=== PATIENT | female | born 1995 | race Caucasian/White ===

== ENCOUNTER 2023-05-08 13:59 | Outpatient (OUT) | payer OTHER, SELFPAY ==
--- NOTE | 2023-05-08 14:17 | US_ITS ---
The [address] [address] Patient Name: ROSALIE FREEMAN MRN: [id number] date: 1995 Sex: F Assigned Patient Location: LAB Current Patient Location: LAB Accession/Order Number: [id number] Exam Date: 05/08/2023 14:18 Report Date: 05/08/2023 16:50 At the request of: DEISY CARDONA Procedure: US pelvis w/ transvaginal EXAM: Pelvic ultrasound HISTORY: . E COLI INFECTION A49.8; LEFT UPPER QUADRANT PAIN R10.12 . COMPARISON: None. TECHNIQUE: Transabdominal and transvaginal scanning was performed FINDINGS: Scanning of the pelvis demonstrates uterus to be anteverted and measures 9.1 x 4.4 x 5.4 cm. Endometrial complex measures 7 mm. Linear hyperechoic structures are noted within the endometrial cavity with shadowing consistent with an IUD which appears in good position. Right ovary measures 3.5 x 2.6 x 3.1 cm. Color-flow is noted. No masses are noted. Left ovary was not identified. By history left ovary is been removed. No fluid was noted in the cul-de-sac. IMPRESSION: 1. Normal-appearing uterus and endometrial complex with IUD in place. 2. Normal right ovary. 3. Left ovary was not identified. By history left ovary is been removed. Electronically authenticated by: NANDINI LOVING Date: 05/08/2023 16:50
== END 2023-05-08 14:00 ==
LOC: LAB 14:08
PROVIDERS: PCP Family Medicine; Visit Provider Family Medicine
DX: N39.0 Urinary tract infection, site not specified (principal); R42 Dizziness and giddiness; R53.1 Weakness; A49.8 Other bacterial infections of unspecified site; R10.12 Left upper quadrant pain
CPT/HCPCS: 76830; 76856

== ENCOUNTER 2023-05-09 07:41 | Outpatient (REF) | payer OTHER, SELFPAY ==
[2023-05-09 07:58] LABS: Bilirubin Urine NEGATIVE (NEGATIVE); Blood Urine NEGATIVE (NEGATIVE); Clarity Urine CLEAR (CLEAR); Color Urine LT. YELLOW (YELLOW); Glucose Urine UA NEGATIVE (NEGATIVE); Ketones Urine NEGATIVE (NEGATIVE); Leukocyte Esterase Urine NEGATIVE (NEGATIVE); Nitrite Urine NEGATIVE (NEGATIVE); Protein Urine NEGATIVE (NEG/TRACE); Urobilinogen Urine 0.2 EU/dL (0.2-1.0); pH Urine 5.5 (5.0-9.0)
[2023-05-09 08:05] LABS: Bacteria Urine TRACE #/HPF (NONE SEEN); Cast Seen? NONE SEEN #/LPF (NONE SEEN); Crystals Seen? None Seen #/HPF (None Seen); Mucus Urine NONE SEEN (NONE SEEN); RBC Urine 0-2 #/HPF (0-2); Squamous Epithelial Cell Urine RARE #/LPF (NONE/RARE); WBC Urine NONE SEEN #/HPF (NONE SEEN)
== END 2023-05-09 07:42 ==
LOC: LAB 07:41
PROVIDERS: PCP Family Medicine; Visit Provider Family Medicine
DX: N39.0 Urinary tract infection, site not specified (principal)
CPT/HCPCS: 81001; 87086

== ENCOUNTER 2023-06-01 21:39 | Outpatient (OUT) | payer OTHER, SELFPAY ==
[2023-06-05 14:10] LABS: Age Gdln ACOG Testing Note (.); HPV Aptima Negative (Negative); IGP, Aptima HPV, rfx 16/18,45 Note (.)
== END 2023-06-01 21:40 | disposition home or self-care (01) ==
LOC: LAB 21:41
PROVIDERS: PCP Family Medicine; Visit Provider Physician Assistant
DX: Z12.4 Encounter for screening for malignant neoplasm of cervix (principal); Z11.51 Encounter for screening for human papillomavirus (HPV)
CPT/HCPCS: 87624; G0145

== ENCOUNTER 2023-10-28 15:38 | Outpatient (OUT) | payer OTHER, SELFPAY ==
[2023-10-28 16:10] LABS: Basophils Percent Auto 0.3 % (0.2-2.0); Eosinophils Absolute Auto 0.2 10^3/uL (0.0-0.7); Eosinophils Percent Auto 1.9 % (0.9-7.0); Hematocrit 41.2 % (36.0-48.0); Hemoglobin 13.7 g/dL (12.0-16.0); Immature Granulocytes Abs Auto 0.03 10^3/uL (0.00-0.03); Immature Granulocytes Pct Auto 0.3 % (0.0-0.5); Lymphocytes Percent Auto 22.8 % (20.5-60.0); Mean Corpuscular HGB Conc 33.3 g/dL (29.9-35.2); Mean Corpuscular Hemoglobin 30.3 pg (26.7-34.0); Mean Corpuscular Volume 91.2 fL (81.0-99.0); Mean Platelet Volume 9.1 fL (9.5-13.5); Monocytes Absolute Auto 0.7 10^3/uL (0.3-0.8); Monocytes Percent Auto 8.2 % (1.7-12.0); Neutrophils Absolute Auto 5.8 10^3/uL (1.4-6.5); Neutrophils Percent Auto 66.5 % (43.0-75.0); Platelet Count 302 10^3/uL (150-450); Red Blood Count 4.52 10^6/uL (4.20-5.40); Red Cell Distribution Width 12.2 % (11.0-15.0); White Blood Count 8.8 10^3/uL (4.0-11.0)
[2023-10-28 17:04] LABS: Free T4 0.82 ng/dL (0.76-1.46)
[2023-10-28 17:09] LABS: Thyroid Stimulating Hormone 2.166 uIU/mL (0.358-3.740); Uric Acid 4.3 mg/dL (2.6-6.0)
[2023-10-28 17:32] LABS: C Reactive Protein <0.50 mg/dL (<=0.50)
[2023-10-30 04:07] LABS: Antistreptolysin O Ab 612.5 IU/mL (0.0-200.0)
[2023-10-30 12:09] LABS: Anti-DNA (DS) Ab Qn <1 IU/mL (0-9); Antichromatin Antibodies <0.2 AI (0.0-0.9); RNP Antibodies <0.2 AI (0.0-0.9); Rheumatoid Factor (RF) 10.8 IU/mL (<14.0); Sjogren's Anti-SS-A <0.2 AI (0.0-0.9); Sjogren's Anti-SS-B <0.2 AI (0.0-0.9)
[2023-11-02 12:10] LABS: Antinuclear Antibodies, IFA Negative (.)
== END 2023-10-28 15:39 | disposition home or self-care (01) ==
PROVIDERS: PCP Family Medicine; Visit Provider Family Medicine
DX: M25.50 Pain in unspecified joint (principal)
CPT/HCPCS: 36415; 84439; 84443; 84550; 85025; 86038; 86060; 86140; 86225; 86235; 86431

== ENCOUNTER 2023-11-09 10:11 | Outpatient (OUT) | payer OTHER, SELFPAY ==
[2023-11-09 11:39] LABS: Total Protein Urine Random 19.3 mg/dL (<=11.9)
== END 2023-11-09 10:12 | disposition home or self-care (01) ==
LOC: LAB 10:11
PROVIDERS: PCP Family Medicine; Visit Provider Family Medicine
DX: R89.9 Unspecified abnormal finding in specimens from other organs, systems and tissues (principal)
CPT/HCPCS: 84156

== ENCOUNTER 2023-11-10 15:51 | Outpatient (RCR) | payer OTHER, SELFPAY | END 2023-11-22 08:00 | disposition home or self-care (01) | LOC: PT 15:51 | PROVIDERS: PCP Family Medicine; Visit Provider Family Medicine | DX: M25.511 Pain in right shoulder (principal); E16.1 Other hypoglycemia | CPT/HCPCS: 97014; 97110; 97162 ==

== ENCOUNTER 2023-11-12 07:47 | Outpatient (REF) | payer OTHER, SELFPAY ==
[2023-11-12 08:43] LABS: Total Protein Urine Random 13.2 mg/dL (<=11.9)
[2023-11-12 08:45] LABS: Total Protein 24 Hour Urine 145.2 mg/24hr (<=149.1); Total Volume 24 Hour Urine 1100 mL/24hr
--- OUTSIDE RECORDS SUMMARY | 2023-11-12 10:30 | XMS_ITS | CCD ---
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, DR SEWELL Admkaty Unavailable ZIEBER, DR ADRIANA Mckenzie Consulting Unavailable HOY ., DR SEWELL Consulting Unavailable HOY ., DR SEWELL Primary Care Unavailable HOY ., DR SEWELL Attending Unavailable HOY ., DR SEWELL Admitting Unavailable ZIEBER, DR ADRIANA Mckenzie Consulting Unavailable DANIEL CELAYA Consulting Unavailable HOY ., DR SEWELL Primary Care Unavailable DANIEL CELAYA Attending Unavailable DANIEL CELAYA Admitting Unavailable HOY ., DR SEWELL Consulting Unavailable HOY ., DR SEWELL Primary Care Unavailable HOY ., DR SEWELL Attending Unavailable HOY ., DR SEWELL Admkaty Unavailable HOY ., DR SEWELL Consulting Unavailable HOY ., DR SEWELL Primary Care Unavailable HOY ., DR SEWELL Attending Unavailable HOY ., DR SEWELL Admitting Unavailable HOY ., DR SEWELL Consulting Unavailable HOY ., DR SEWELL Primary Care Unavailable HOY ., DR SEWELL Attending Unavailable HOY ., DR SEWELL Admkaty Unavailable LEYLA, DR NANDINI Stafford Consulting Unavailable HOY ., DR SEWELL Consulting Unavailable HOY ., DR SEWELL Primary Care Unavailable HOY ., DR SEWELL Attending Unavailable HOY ., DR SEWELL Admitting Unavailable HOY ., DR SEWELL Consulting Unavailable HOY ., DR SEWELL Primary Care Unavailable HOY ., DR SEWELL Attending Unavailable HOY ., DR SEWELL Admitting Unavailable LEYLA, DR NANDINI Stafford Consulting Unavailable HOY ., DR SEWELL Primary Care Unavailable HOY ., DR SEWELL Attending Unavailable HOY ., DR SEWELL Admitting Unavailable JETHRO GRIFFITH Consulting Unavailable NACHO, JETHRO Attending Unavailable JETHRO GRIFFITH Admitting Unavailable POLI ., DR SEWELL Primary Care Unavailable ELLIS TOLEDO Consulting Unavailable ELLIS TOLEDO Attending Unavailable ELLIS TOLEDO Admitting Unavailable POLI ., DR SEWELL Primary Care Unavailable Allergies Allergy Classification Reported Allergen(s) Allergy Type Date of Onset Reaction(s) Facility (1 source) [facility]; Translations: [[facility]] Propensity to adverse reactions (disorder) 0 [facility] Repository Medications Current Medications Medication Drug Class(es) Dates Sig (Normalized) Sig (Original) dicyclomine hydrochloride 20 mg oral tablet (1 source) Anticholinergic Start: 11-19-2021 take 1 tablet by mouth every twelve hours sertraline 100 mg oral tablet (1 source) Serotonin Reuptake Inhibitor take 1 tablet by mouth every twenty-four hours Problems Active Problems Problem Classification Problem Date Documented Da te Episodic/Chronic Conditions associated with dizziness or vertigo (4 sources) Dizziness and giddiness; Translations: [DIZZINESS AND GIDDINESS] Onset: 3 Episodic Esophageal disorders (2 sources) Gastroesophageal reflux disease; Translations: [Gastro-esophageal reflux disease without esophagitis] Onset: 1 Resolved: 1 Chronic Headache; including migraine (2 sources) Headache; Translations: [Chronic nonintractable headache, unspecified headache type] Episodic Nausea and vomiting (1 source) Nausea; Translations: [NAUSEA] Onset: 3 Episodic Other aftercare (1 source) 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; Translations: [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] Onset: 3 Episodic Other endocrine disorders (4 sources) Other hypoglycemia; Translations: [OTHER HYPOGLYCEMIA] Onset: 3 Chronic Other gastrointestinal disorders (1 source) Irritable bowel syndrome; Translations: [Irritable bowel syndrome without diarrhea] Chronic Other gastrointestinal disorders (1 source) Irritable bowel syndrome without diarrhea Onset: 1 Resolved: 1 Chronic Unclassified (3 sources) CONTACT W/AND (SUSP) EXPOS COVID-19; Translations: [CONTACT W/AND (SUSP) EXPOS COVID-19] Onset: 2 Unclassified (1 source) COUGH, UNSPECIFIED; Translations: [COUGH, UNSPECIFIED] Onset: 2 Urinary tract infections (5 sources) Urinary tract infection, site not specified; Translations: [UTI SITE NOT SPECIFIED] Onset: 3 Episodic Past or Other Problems Problem Classification Problem Date Documented Da te Episodic/Chronic Other connective tissue disease (4 sources) Impingement syndrome of right shoulder; Translations: [IMPINGEMENT SYNDROME RIGHT SHOULDER] Onset: 07-10-2022 Episodic Other non-traumatic joint disorders (5 sources) Pain in right shoulder; Translations: [PAIN IN RIGHT SHOULDER] Onset: 05-13-2022 Episodic Other upper respiratory infections (1 source) Acute pharyngitis, unspecified; Translations: [ACUTE PHARYNGITIS UNSPECIFIED] Onset: 10-23-2022 Episodic Poisoning by nonmedicinal substances (4 sources) Toxic effect of venom of bees, accidental (unintentional), initial encounter; Translations: [TOXIC EFF VENOM BEES ACC INIT ENC] Onset: 08-05-2022 Episodic Skin and subcutaneous tissue infections (1 source) Cellulitis of right lower limb; Translations: [CELLULITIS OF RIGHT LOWER LIMB] Onset: 08-06-2022 Episodic Sprains and strains (4 sources) Strain of other muscles, fascia and tendons at shoulder and upper arm level, right arm, initial encounter; Translations: [STRN OTH MSC F TEND SH UA RA INIT] Onset: 07-18-2022 Episodic Unclassified (1 source) CONTACT W/AND (SUSP) EXPOS COVID-19; Translations: [CONTACT W/AND (SUSP) EXPOS COVID-19] Onset: 10-20-2022 Results Test Name Value Interpretation Reference Range Facility BNPon 04-17-2023 Natriuretic peptide B (Bld) [Mass/Vol] 246.0 pg/mL Normal <=450.0 [facility] Comment on above: Performed By: #### I NSULIN #### [facility] [address] [place] [address] Dr. Saray Souza CARDIAC NELI ADMITon 023 CK [Catalytic activity/Vol] 47 U/L Normal 26-192 [facility] Comment on above: Performed By: #### I CURLYULIN #### [facility] [address] [place] [address] Dr. Saray Souza CK.MB [Mass/Vol] 1.02 ng/mL Normal <=3.60 [facility] Comment on above: Performed By: #### I CURLYULIN #### [facility] [address] [place] [address] Dr. Saray Souza HSTROP 4.5 pg/mL Normal 4.0-51.3 [facility] Comment on above: Result Comment: CUT- OFF POINTS HAVE BEEN ESTABLISHED BASED ON THE FOURTH UNIVERSAL DEFINITIONS OF MYOCARDIAL INFARCTION. THE UPPER REFERENCE LIMIT (URL) OF TROPONIN, DEFINED THE 99TH PERCENTILE OF cTnI DISTRIBUTION IN A REFERENCE POPULATION, HAS BEEN CONFIRMED THE DECISION THRESHOLD FOR MO DIAGNOSIS. Performed By: #### I NSULIN #### [facility] [address] [place] [address] Dr. Saray Souza FRANKLIN 36 ng/mL Normal 9-82 [facility] Comment on above: Performed By: #### I CURLYULIN #### [facility] [address] [address] [address] Saray Souza CBC W MANUAL DIFFon 04-17-20 23 ATYPICAL LYMPH # Normal [facility] Comment on above: Performed By: #### C EDGARDO #### [facility] [address] [place] [address] Dr. Saray Souza ATYPICAL LYMPH % Normal [facility] Comment on above: Performed By: #### C BCMAN #### [facility] [address] [place] [address] Dr. Saray Souza BAND # 0.3 103/ul Normal 0.0-0.3 [facility] Comment on above: Performed By: #### C EDGARDO #### [facility] [address] [place] [address] Dr. Saray Souza BAND % 1 % Normal 0-5 [facility] Comment on above: Performed By: #### C BCPRESLEY #### [facility] [address] [place] [address] Dr. Saray Souza BASOM # 0.00 103/ul Normal 0.00-0.10 [facility] Comment on above: Performed By: #### C BCPRESLEY #### [facility] [address] [place] [address] Dr. Saray Souza BASOM % 0.0 % Critically low 0.2-2.0 [facility] Comment on above: Performed By: #### C BCMAN #### [facility] [address] [place] [address] Dr. Saray Souza BLAST # Normal [facility] Comment on above: Performed By: #### C EDGARDO #### [facility] [address] [place] [address] Dr. aSray Souza BLAST % Normal [facility] Comment on above: Performed By: #### C EDGARDO #### [facility] [address] [place] [address] Dr. Saray Souza CORRECTED WBC Normal 4.0-11.0 [facility] Comment on above: Performed By: #### C EDGARDO #### [facility] [address] [place] [address] Dr. Saray Souza EOS # 0.00 103/ul Normal 0.00-0.70 [facility] Comment on above: Performed By: #### C EDGARDO #### [facility] [address] [place] [address] Dr. Saray Souza EOS% 0.0 % Critically low 0.9-7.0 [facility] Comment on above: Performed By: #### C BCPRESLEY #### [facility] [address] [place] [address] Dr. Saray Souza HCT 43.6 % Normal 36.0-48.0 [facility] Comment on above: Performed By: #### C EDGARDO #### [facility] [address] [place] [address] Dr. Saray Souza HGB 14.7 g/dl Normal 12.0-16.0 [facility] Comment on above: Performed By: #### C EDGARDO #### [facility] [address] [address] [address] Saray Souza LYMPHM # 1.55 103/ul Normal 1.20-3.80 [facility] Comment on above: Performed By: #### C EDGARDO #### [facility] [address] [address] [address] Saray Souza LYMPHM% 6.0 % Critically low 20.5-60.[address] [facility] Comment on above: Performed By: #### C EDGARDO #### [facility] [address] [address] [address] Saray Souza MCH 30.3 pg Normal 26.7-34.0 [facility] Comment on above: Performed By: #### C EDGARDO #### [facility] [address] [place] [address] Dr. Saray Souza MCHC 33.7 g/dl Normal 29.9-35.2 [facility] Comment on above: Performed By: #### Sweetie REYNOSO #### [facility] [address] [place] [address] Dr. Saray Souza MCV 89.9 fL Normal 81.0-99.0 [facility] Comment on above: Performed By: #### C EDGARDO #### [facility] [address] [place] [address] Dr. Saray Souza METAMYELOCYTE # Normal [facility] Comment on above: Performed By: #### Sweetie REYNOSO #### [facility] [address] [place] [address] Dr. Saray Souza METAMYELOCYTE % Normal [facility] Comment on above: Performed By: #### C EDGARDO #### [facility] [address] [place] [address] Dr. Saray Souza MONOM# 2.06 103/ul Critically high 0.30-0.80 [facility] Comment on above: Performed By: #### Sweetie REYNOSO #### [facility] [address] [place] [address] Dr. Saray Souza MONOM% 8.0 % Normal 1.7-12.0 [facility] Comment on above: Performed By: #### C EDGARDO #### [facility] [address] [place] [address] Dr. Saray Souza MPV 8.8 fL Critically low 9.5-13.5 [facility] Comment on above: Performed By: #### C BCPRESLEY #### [facility] [address] [place] [address] Dr. Saray Souza MYELOCYTE # Normal [facility] Comment on above: Performed By: #### C EDGARDO #### [facility] [address] [place] [address] Dr. Saray Souza MYELOCYTE % Normal [facility] Comment on above: Performed By: #### C EDGARDO #### [facility] [address] [place] [address] Dr. Saray Souza NRBC Normal [facility] Comment on above: Performed By: #### C EDGARDO #### [facility] [address] [place] [address] Dr. Saray Souza PLT 397 103/ul Normal 150-450 [facility] Comment on above: Performed By: #### C EDGARDO #### [facility] [address] [place] [address] Dr. Saray Souza RBC 4.85 106/ul Normal 4.20-5.40 [facility] Comment on above: Performed By: #### C EDGARDO #### [facility] [address] [place] [address] Dr. Saray Souza RDW 12.0 % Normal 11.0-15.0 [facility] Comment on above: Performed By: #### C BCPRESLEY #### [facility] [address] [place] [address] Dr. Saray Souza SEG # 21.93 103/ul Critically high 1.40-6.50 [facility] Comment on above: Performed By: #### C EDGARDO #### [facility] [address] [place] [address] Dr. Saray Souza SEG % 85.0 % Critically high 43.0-75.0 [facility] Comment on above: Performed By: #### C BCMAN #### [facility] [address] [place] [address] Dr. Saray Souza WBC 25.8 103/ul Critically high 4.0-11.0 [facility] Comment on above: Performed By: #### C BCMAN #### [facility] [address] [place] [address] Dr. Saray Souza CULTURE URINEon 04-17-2023 CULTURE URINE Culture Observations : LORENZO TO FOLLOW. Isolate 1 Enterococcus faecalis 20,000 cfu/mL of Normal [facility] Comment on above: Performed By: #### C BC #### [facility] [address] [place] [address] Dr. Saray Souza ER URINE PROFILEon 3 Bilirubin Ql (U) Negative Normal NEGATIVE [facility] Comment on above: Performed By: #### C BC #### [facility] [address] [place] [address] Dr. Saray Souza Clarity (U) CLEAR Normal CLEAR [facility] Comment on above: Performed By: #### C BC #### [facility] [address] [place] [address] Dr. Saray Souza Color (U) LT. YELLOW Normal YELLOW [facility] Comment on above: Performed By: #### C BC #### [facility] [address] [place] [address] Dr. [facility] micrscopic examination will be performed if indicated. Normal [facility] Comment on above: Performed By: #### C BC #### [facility] [address] [place] [address] Dr. Saray Souza Glucose Ql (U) Negative Normal NEGATIVE [facility] Comment on above: Performed By: #### C BC #### [facility] [address] [place] [address] Dr. Saray Souza Hemoglobin Ql (U) Negative Normal NEGATIVE [facility] Comment on above: Performed By: #### C BC #### [facility] [address] [place] [address] Dr. Saray Souza Ketones Ql (U) Negative Normal NEGATIVE [facility] Comment on above: Performed By: #### C BC #### [facility] [address] [place] [address] Dr. Saray Souza LEUKOCYTES SMALL Abnormal NEGATIVE [facility] Comment on above: Performed By: #### C BC #### [facility] [address] [place] [address] Dr. Saray Souza Nitrite Ql (U) Negative Normal NEGATIVE [facility] Comment on above: Performed By: #### C BC #### [facility] [address] [place] [address] Dr. Saray Souza pH (U) 6.5 [pH] Normal 5-9 [facility] Comment on above: Performed By: #### C BC #### [facility] [address] [place] [address] Dr. Saray Souza SPEC GRAVITY 1.025 Normal 1.005-<=1.025 [facility] Comment on above: Performed By: #### C BC #### [facility] [address] [place] [address] Dr. Saray Souza UA PROTEIN Negative Normal NEGATIVE/ TRACE [facility] Comment on above: Performed By: #### C BC #### [facility] [address] [place] [address] Dr. Saray Souza UR MICRO IND INDICATED Normal [facility] Comment on above: Performed By: #### C BC #### [facility] [address] [place] [address] Dr. Saray Souza Urobilinogen Qn (U) 0.2 {Janine'U}/dL Normal 0.2 - 1. 0 [facility] Comment on above: Performed By: #### C BC #### [facility] [address] [place] [address] Dr. Saray Souza URon 04-17-2023 , QUAL Negative Normal NEGATIVE [facility] Comment on above: Performed By: #### C BC #### [facility] [address] [place] [address] Dr. Saray Souza PROF 14(COMP METB)on 023 Albumin [Mass/Vol] 3.0 g/dL Critically low 3.4-5.0 [facility] Comment on above: Performed By: #### I NSULIN #### [facility] [address] [place] [address] Dr. Saray Souza Albumin/Globulin [Mass ratio] 0.9 {ratio} Normal [facility] Comment on above: Performed By: #### I NSULIN #### [facility] [address] [place] [address] Dr. Saray Souza ALP [Catalytic activity/Vol] 54 U/L Normal 46-116 [facility] Comment on above: Performed By: #### I NSULIN #### [facility] [address] [place] [address] Dr. Saray Souza ALT [Catalytic activity/Vol] 27 U/L Normal 14-59 [facility] Comment on above: Performed By: #### I NSULIN #### [facility] [address] [place] [address] Dr. Saray Souza Anion gap [Moles/Vol] 12.9 mmol/L Normal [facility] Comment on above: Performed By: #### I NSULIN #### [facility] [address] [place] [address] Dr. Saray Souza AST [Catalytic activity/Vol] 12 U/L Critically low 15-37 [facility] Comment on above: Performed By: #### I NSULIN #### [facility] [address] [place] [address] Dr. Saray Souza Bilirubin [Mass/Vol] 0.3 mg/dL Normal 0.2-1.0 [facility] Comment on above: Performed By: #### I NSULIN #### [facility] [address] [place] [address] Dr. Saray Souza Calcium [Mass/Vol] 8.1 mg/dL Critically low 8.5-10.1 [facility] Comment on above: Performed By: #### I NSULIN #### [facility] [address] [place] [address] Dr. Saray Souza Chloride [Moles/Vol] 102 mmol/L Normal 98-107 [facility] Comment on above: Performed By: #### I NSULIN #### [facility] [address] [address] [address] Saray Souza CO2 [Moles/Vol] 26.2 mmol/L Normal 21.0-32.0 [facility] Comment on above: Performed By: #### I NSULIN #### [facility] [address] [place] [address] Dr. Saray Souza Creatinine [Mass/Vol] 0.87 mg/dL Normal 0.55-1.02 [facility] Comment on above: Performed By: #### I NSULIN #### [facility] [address] [place] [address] Dr. Saray Souza EGFR-AF CROATIAN >60 Normal >=60 [facility] Comment on above: Performed By: #### I NSULIN #### [facility] [address] [place] [address] Dr. Saray Souza EGFR-NON AF CROATIAN >60 Normal >=60 [facility] Comment on above: Performed By: #### I NSULIN #### [facility] [address] [place] [address] Dr. Saray Souza Globulin (S) [Mass/Vol] 3.2 g/dL Normal [facility] Comment on above: Performed By: #### I NSULIN #### [facility] [address] [place] [address] Dr. Saray Souza Glucose [Mass/Vol] 206 mg/dL Critically high 74-106 [facility] Comment on above: Performed By: #### I NSULIN #### [facility] [address] [place] [address] Dr. Saray Souza Potassium [Moles/Vol] 4.1 mmol/L Normal 3.5-5.1 [facility] Comment on above: Performed By: #### I NSULIN #### [facility] [address] [place] [address] Dr. Saray Souza Protein [Mass/Vol] 6.2 g/dL Critically low 6.4-8.2 [facility] Comment on above: Performed By: #### I NSULIN #### [facility] [address] [place] [address] Dr. Saray Souza Sodium [Moles/Vol] 137 mmol/L Normal 136-[address] [facility] Comment on above: Performed By: #### I NSULIN #### [facility] [address] [place] [address] Dr. Saray Souza Urea nitrogen [Mass/Vol] 19.0 mg/dL Critically high 7.0-18.0 [facility] Comment on above: Performed By: #### I NSULIN #### [facility] [address] [place] [address] Dr. Saray Souza Urea nitrogen/Creatinine [Mass ratio] 21.8 mg/mg Normal [facility] Comment on above: Performed By: #### I NSULIN #### [facility] [address] [place] [address] Dr. Saray Souza TSHon 04-17-2023 TSH 0.553 uIU/mL Normal 0.358-3.740 [facility] Comment on above: Performed By: #### I NSULIN #### [facility] [address] [place] [address] Dr. Saray Souza URINE MICROSCOPIC ONLYon BACTERIA TRACE Abnormal NONE SEEN [facility] Comment on above: Performed By: #### C BC #### [facility] [address] [place] [address] Dr. Saray Souza Bacteria identified Cx Nom (U) INDICATED Normal [facility] Comment on above: Performed By: #### C BC #### [facility] [address] [place] [address] Dr. Saray Souza CAST NONE SEEN Normal NONE SEEN [facility] Comment on above: Performed By: #### C BC #### [facility] [address] [place] [address] Dr. Saray Souza Crystals LM Nom (Urine sed) NONE SEEN Normal NONE SEEN [facility] Comment on above: Performed By: #### C BC #### [facility] [address] [address] [address] Saray Souza Epithelial cells LM Ql (Urine sed) RARE Normal NONE SEEN /RARE [facility] Comment on above: Performed By: #### C BC #### [facility] [address] [place] [address] Dr. Saray Souza MUCOUS NONE SEEN Normal NONE SEEN [facility] Comment on above: Performed By: #### C BC #### [facility] [address] [address] [address] Saray Souza RBC 0-2 Normal 0-2 [facility] Comment on above: Performed By: #### C BC #### [facility] [address] [place] [address] Dr. Saray Souza WBC 5-10 Abnormal NONE SEEN [facility] Comment on above: Performed By: #### C BC #### [facility] [address] [place] [address] Dr. Saray Souza XR CHEST 2 Von 04-17-2023 SARS-CoV-2 (COVID-19) RNA DAYDAY+probe Ql (Unsp spec) XR CHEST 2 V, 04/17/2023 10:10 AM EDT INDICATION: SHORTNESS OF BREATH Covid 19 positive test 04/10/2023 COMPARISON: None. FINDINGS: Decreased inspiratory effort increases prominence of mediastinum and pulmonary interstitium. Cardiomediastinal silhouette within normal limits. No focal consolidation or pleural effusion. Calcified granuloma right middle lobe. No pneumothorax. No acute fracture or dislocation. IMPRESSION: No acute cardiopulmonary process. Electronically authenticated by: CAROL RAMIREZ Date: 2023-04-17 10:45 Normal [facility] INSULINon 04-07-2023 Insulin 11.3 uIU/mL Normal 2.6-24.9 [facility] Comment on above: Performed By: #### I NSULIN #### [facility] [address] [place] [address] Dr. Saray Souza US KIDNEYS BLADDERon 023 US KIDNEYS BLADDER EXAMINATION: US KIDNEYS BLADDER HISTORY: Urinary tract infectious disease COMPARISON: No relevant comparison available. TECHNIQUE: Ultrasound examination was performed of the bladder. FINDINGS: Right Kidney: Normal in size, contour and cortical echotexture. The cortex measures 1.5 cm. No solid cortical mass, hydronephrosis or obstructing nephrolithiasis Height: 5.7 cm Length: 11.5 cm Width: 5.8 cm Left Kidney: Normal in size, contour and cortical echotexture. The cortex measures 2.1 cm. No solid cortical mass, hydronephrosis or obstructing nephrolithiasis Height: 4.9 cm Length: 13.1 cm Width: 5.1 cm The urinary bladder is normal in appearance. Prevoid volume 96 mL. Post void volume not performed Ureteral jets visualized bilaterally IMPRESSION: Normal exam Electronically authenticated by: NANDINI MAYER Date: 2023-04-04 08:22 Normal [facility] INSULINon 04-02-2023 Insulin 37.5 uIU/mL Critically high 2.6-24.9 [facility] Comment on above: Performed By: #### I NSULIN #### [facility] [address] [place] [address] Dr. Saray Souza CBC AUTO DIFFon 04-01-2023 BASO # 0.0 103/ul Normal 0.0-0.1 [facility] Comment on above: Performed By: #### C BC #### [facility] [address] [place] [address] Dr. Saray Souza Basophils/100 WBC (Bld) 0.5 % Normal 0.2-2.0 [facility] Comment on above: Performed By: #### C BC #### [facility] [address] [place] [address] Dr. Saray Souza EO # 0.2 103/ul Normal 0.0-0.7 [facility] Comment on above: Performed By: #### C BC #### [facility] [address] [place] [address] Dr. Saray Souza Eosinophils/100 WBC (Bld) 2.3 % Normal 0.9-7.0 [facility] Comment on above: Performed By: #### C BC #### [facility] [address] [place] [address] Dr. Saray Souza Erythrocyte distribution width (RBC) [Ratio] 11.9 % Normal 11.0-15.0 [facility] Comment on above: Performed By: #### C BC #### [facility] [address] [place] [address] Dr. Saray Souza Hematocrit (Bld) [Volume fraction] 42.2 % Normal 36.0-48.0 [facility] Comment on above: Performed By: #### C BC #### [facility] [address] [place] [address] Dr. Saray Souza Hemoglobin (Bld) [Mass/Vol] 13.7 g/dL Normal 12.0-16.0 [facility] Comment on above: Performed By: #### C BC #### [facility] [address] [place] [address] Dr. Saray Souza IG # 0.02 10e3/ul Normal 0.00-0.03 [facility] Comment on above: Performed By: #### C BC #### [facility] [address] [place] [address] Dr. Saray Souza IG % 0.3 % Normal 0.0-0.5 [facility] Comment on above: Performed By: #### C BC #### [facility] [address] [place] [address] Dr. Saray Souza LYMPH # 1.6 103/ul Normal 1.2-3.8 [facility] Comment on above: Performed By: #### C BC #### [facility] [address] [place] [address] Dr. Saray Souza Lymphocytes/100 WBC (Bld) 21.5 % Normal 20.5-60.0 [facility] Comment on above: Performed By: #### C BC #### [facility] [address] [place] [address] Dr. Saray Souza MANUAL DIFF REQ NO Normal [facility] Comment on above: Performed By: #### C BC #### [facility] [address] [place] [address] Dr. Saray Souza MCH (RBC) [Entitic mass] 30.0 pg Normal 26.7-34.0 [facility] Comment on above: Performed By: #### C BC #### [facility] [address] [address] [address] Saray Souza MCHC (RBC) [Mass/Vol] 32.5 g/dL Normal 29.9-35.2 [facility] Comment on above: Performed By: #### C BC #### [facility] [address] [place] [address] Dr. Saray Souza MCV (RBC) [Entitic vol] 92.5 fL Normal 81.0-99.0 [facility] Comment on above: Performed By: #### C BC #### [facility] [address] [place] [address] Dr. Saray Souza MONO # 0.7 103/ul Normal 0.3-0.8 [facility] Comment on above: Performed By: #### C BC #### [facility] [address] [place] [address] Dr. Saray Souza Monocytes/100 WBC (Bld) 9.6 % Normal 1.7-12.0 [facility] Comment on above: Performed By: #### C BC #### [facility] [address] [place] [address] Dr. Saray Souza NEUT # 5.0 103/ul Normal 1.4-6.5 [facility] Comment on above: Performed By: #### C BC #### [facility] [address] [place] [address] Dr. Saray Souza Neutrophils/100 WBC (Bld) 65.8 % Normal 43.0-75.0 [facility] Comment on above: Performed By: #### C BC #### [facility] [address] [place] [address] Dr. Saray Souza Platelet mean volume (Bld) [Entitic vol] 8.9 fL Critically low 9.5-13.5 [facility] Comment on above: Performed By: #### C BC #### [facility] [address] [place] [address] Dr. Saray Souza PLT 293 103/ul Normal 150-450 [facility] Comment on above: Performed By: #### C BC #### [facility] [address] [place] [address] Dr. Saray Souza RBC 4.56 106/ul Normal 4.20-5.40 [facility] Comment on above: Performed By: #### C BC #### [facility] [address] [place] [address] Dr. Saray Souza WBC 7.5 103/ul Normal 4.0-11.0 [facility] Comment on above: Performed By: #### C BC #### [facility] [address] [place] [address] Dr. Saray Souza CULTURE URINEon 04-01-2023 CULTURE URINE Culture Observations : MODERATE GROWTH OF MIXED GENITAL CARMELO. NO POTENTIAL PATHOGENS SEEN. Normal [facility] Comment on above: Performed By: #### C BC #### [facility] [address] [place] [address] Dr. Saray Souza FREE THYROXINE INDEX T7on FTI 2.51 Normal 1.30-4.50 [facility] Comment on above: Performed By: #### I NSULIN #### [facility] [address] [place] [address] Dr. Saray Souza T3U 33.0 % Normal 30.0-39.0 [facility] Comment on above: Performed By: #### I NSULIN #### [facility] [address] [place] [address] Dr. Saray Souza T4 [Mass/Vol] 7.60 ug/dL Normal 4.80-13.90 [facility] Comment on above: Performed By: #### I NSULIN #### [facility] [address] [place] [address] Dr. Saray Souza IRONon 04-01-2023 Iron [Mass/Vol] 151.0 ug/dL Normal 50.0-170.0 [facility] Comment on above: Performed By: #### C BCMAN #### [facility] [address] [place] [address] Dr. Saray Souza PROF 14(COMP METB)on 023 Albumin [Mass/Vol] 3.7 g/dL Normal 3.4-5.0 [facility] Comment on above: Performed By: #### C EDGARDO #### [facility] [address] [place] [address] Dr. Saray Souza Albumin/Globulin [Mass ratio] 1.1 {ratio} Normal [facility] Comment on above: Performed By: #### C BCPRESLEY #### [facility] [address] [address] [address] Saray Souza ALP [Catalytic activity/Vol] 81 U/L Normal 46-116 [facility] Comment on above: Performed By: #### C BCPRESLEY #### [facility] [address] [place] [address] Dr. Saray Souza ALT [Catalytic activity/Vol] 33 U/L Normal 14-59 [facility] Comment on above: Performed By: #### C EDGARDO #### [facility] [address] [place] [address] Dr. Saray Souza Anion gap [Moles/Vol] 10.2 mmol/L Normal [facility] Comment on above: Performed By: #### C BCPRESLEY #### [facility] [address] [place] [address] Dr. Saray Souza AST [Catalytic activity/Vol] 22 U/L Normal 15-37 [facility] Comment on above: Performed By: #### C EDGARDO #### [facility] [address] [place] [address] Dr. Saray Souza Bilirubin [Mass/Vol] 0.3 mg/dL Normal 0.2-1.0 [facility] Comment on above: Performed By: #### C BCPRESLEY #### [facility] [address] [address] [address] Saray Souza Calcium [Mass/Vol] 8.6 mg/dL Normal 8.5-10.[address] [facility] Comment on above: Performed By: #### C EDGARDO #### [facility] [address] [place] [address] Dr. Saray Souza Chloride [Moles/Vol] 105 mmol/L Normal 98-107 [facility] Comment on above: Performed By: #### C BCMAN #### [facility] [address] [address] [address] Saray Souza CO2 [Moles/Vol] 30.4 mmol/L Normal 21.0-32.0 [facility] Comment on above: Performed By: #### C BCMAN #### [facility] [address] [address] [address] Saray Souza Creatinine [Mass/Vol] 0.72 mg/dL Normal 0.55-1.02 [facility] Comment on above: Performed By: #### C BCMAN #### [facility] [address] [address] [address] Saray Souza EGFR-AF CROATIAN >60 Normal >=60 [facility] Comment on above: Performed By: #### C BCPRESLEY #### [facility] [address] [address] [address] Saray Souza EGFR-NON AF CROATIAN >60 Normal >=60 [facility] Comment on above: Performed By: #### C BCMAN #### [facility] [address] [address] [address] Saray Souza Globulin (S) [Mass/Vol] 3.5 g/dL Normal [facility] Comment on above: Performed By: #### C BCMAN #### [facility] [address] [address] [address] Saray Souza Glucose [Mass/Vol] 89 mg/dL Normal 74-[address] [facility] Comment on above: Performed By: #### C BCMAN #### [facility] [address] [address] [address] Saray Souza Potassium [Moles/Vol] 3.6 mmol/L Normal 3.5-5.1 [facility] Comment on above: Performed By: #### C BCMAN #### [facility] [address] [address] [address] Saray Souza Protein [Mass/Vol] 7.2 g/dL Normal 6.4-8.[address] [facility] Comment on above: Performed By: #### C BCMAN #### [facility] [address] [place] [address] Dr. Saray Souza Sodium [Moles/Vol] 142 mmol/L Normal 136-[address] [facility] Comment on above: Performed By: #### C EDGARDO #### [facility] [address] [place] [address] Dr. Saray Souza Urea nitrogen [Mass/Vol] 12.0 mg/dL Normal 7.0-18.0 [facility] Comment on above: Performed By: #### C EDGARDO #### [facility] [address] [place] [address] Dr. Saray Souza Urea nitrogen/Creatinine [Mass ratio] 16.7 mg/mg Normal [facility] Comment on above: Performed By: #### C EDGARDO #### [facility] [address] [place] [address] Dr. Saray Souza TSHon 04-01-2023 TSH 1.708 uIU/mL Normal 0.358-3.740 [facility] Comment on above: Performed By: #### I NSULIN #### [facility] [address] [place] [address] Dr. Saray Souza UA RANDOM W/MICROSCOPICon BACTERIA SMALL Abnormal NONE SEEN [facility] Comment on above: Performed By: #### I NSULIN #### [facility] [address] [place] [address] Dr. Saray Souza Bilirubin Ql (U) Negative Normal NEGATIVE [facility] Comment on above: Performed By: #### I NSULIN #### [facility] [address] [place] [address] Dr. Saray Souza CAST NONE SEEN Normal NONE SEEN [facility] Comment on above: Performed By: #### I NSULIN #### [facility] [address] [place] [address] Dr. Saray Souza Clarity (U) CLEAR Normal CLEAR [facility] Comment on above: Performed By: #### I NSULIN #### [facility] [address] [place] [address] Dr. Saray Souza Color (U) YELLOW Normal YELLOW [facility] Comment on above: Performed By: #### I NSULIN #### [facility] [address] [address] [address] Saray Souza Crystals LM Nom (Urine sed) NONE SEEN Normal NONE SEEN [facility] Comment on above: Performed By: #### I NSULIN #### [facility] [address] [place] [address] Dr. Saray Souza Epithelial cells LM Ql (Urine sed) FEW Abnormal NONE SEEN /RARE [facility] Comment on above: Performed By: #### I NSULIN #### [facility] [address] [address] [address] Saray Souza Glucose Ql (U) Negative Normal NEGATIVE [facility] Comment on above: Performed By: #### I NSULIN #### [facility] [address] [place] [address] Dr. Saray Souza Hemoglobin Ql (U) Negative Normal NEGATIVE [facility] Comment on above: Performed By: #### I NSULIN #### [facility] [address] [place] [address] Dr. Saray Souza Ketones Ql (U) TRACE Abnormal NEGATIVE [facility] Comment on above: Performed By: #### I NSULIN #### [facility] [address] [place] [address] Dr. Saray Souza LEUKOCYTES SMALL Abnormal NEGATIVE [facility] Comment on above: Performed By: #### I NSULIN #### [facility] [address] [address] [address] Saray Souza MUCOUS NONE SEEN Normal NONE SEEN [facility] Comment on above: Performed By: #### I NSULIN #### [facility] [address] [address] [address] Saray Souza Nitrite Ql (U) Negative Normal NEGATIVE [facility] Comment on above: Performed By: #### I NSULIN #### [facility] [address] [place] [address] Dr. Saray Souza pH (U) 5.5 [pH] Normal 5-9 [facility] Comment on above: Performed By: #### I NSULIN #### [facility] [address] [place] [address] Dr. Saray Souza RBC 0-2 Normal 0-2 [facility] Comment on above: Performed By: #### I NSULIN #### [facility] [address] [place] [address] Dr. Saray Souza SPEC GRAVITY >=1.030 Abnormal 1.005-<=1.025 [facility] Comment on above: Performed By: #### I NSULIN #### [facility] [address] [place] [address] Dr. Saray Souza UA PROTEIN Negative Normal NEGATIVE/ TRACE [facility] Comment on above: Performed By: #### I NSULIN #### [facility] [address] [place] [address] Dr. Saray Souza Urobilinogen Qn (U) 0.2 {Janine'U}/dL Normal 0.2 - 1. 0 [facility] Comment on above: Performed By: #### I NSULIN #### [facility] [address] [place] [address] Dr. Saray Souza WBC 5-10 Abnormal NONE SEEN [facility] Comment on above: Performed By: #### I NSULIN #### [facility] [address] [place] [address] Dr. Saray Souza INSULINon 02-14-2023 Insulin 12.8 uIU/mL Normal 2.6-24.9 [facility] Comment on above: Performed By: #### C BC #### [facility] [address] [place] [address] Dr. Saray Souza CBC AUTO DIFFon 02-13-2023 BASO # 0.0 103/ul Normal 0.0-0.1 [facility] Comment on above: Performed By: #### C BC #### [facility] [address] [place] [address] Dr. Saray Souza Basophils/100 WBC (Bld) 0.4 % Normal 0.2-2.0 [facility] Comment on above: Performed By: #### C BC #### [facility] [address] [place] [address] Dr. Saray Souza EO # 0.1 103/ul Normal 0.0-0.7 [facility] Comment on above: Performed By: #### C BC #### [facility] [address] [place] [address] Dr. Saray Souza Eosinophils/100 WBC (Bld) 1.6 % Normal 0.9-7.0 [facility] Comment on above: Performed By: #### C BC #### [facility] [address] [place] [address] Dr. Saray Souza Erythrocyte distribution width (RBC) [Ratio] 11.9 % Normal 11.0-15.0 [facility] Comment on above: Performed By: #### C BC #### [facility] [address] [place] [address] Dr. Saray Souza Hematocrit (Bld) [Volume fraction] 41.9 % Normal 36.0-48.0 [facility] Comment on above: Performed By: #### C BC #### [facility] [address] [place] [address] Dr. Saray Souza Hemoglobin (Bld) [Mass/Vol] 13.7 g/dL Normal 12.0-16.0 [facility] Comment on above: Performed By: #### C BC #### [facility] [address] [place] [address] Dr. Saray Souza IG # 0.02 10e3/ul Normal 0.00-0.03 [facility] Comment on above: Performed By: #### C BC #### [facility] [address] [place] [address] Dr. Saray Souza IG % 0.3 % Normal 0.0-0.5 [facility] Comment on above: Performed By: #### C BC #### [facility] [address] [place] [address] Dr. Saray Souza LYMPH # 1.4 103/ul Normal 1.2-3.8 [facility] Comment on above: Performed By: #### C BC #### [facility] [address] [place] [address] Dr. Saray Souza Lymphocytes/100 WBC (Bld) 18.6 % Critically low 20.5-60.0 [facility] Comment on above: Performed By: #### C BC #### [facility] [address] [place] [address] Dr. Saray Souza MANUAL DIFF REQ NO Normal [facility] Comment on above: Performed By: #### C BC #### [facility] [address] [place] [address] Dr. Saray Souza MCH (RBC) [Entitic mass] 29.9 pg Normal 26.7-34.0 [facility] Comment on above: Performed By: #### C BC #### [facility] [address] [place] [address] Dr. Saray Souza MCHC (RBC) [Mass/Vol] 32.7 g/dL Normal 29.9-35.2 [facility] Comment on above: Performed By: #### C BC #### [facility] [address] [place] [address] Dr. Saray Souza MCV (RBC) [Entitic vol] 91.5 fL Normal 81.0-99.0 [facility] Comment on above: Performed By: #### C BC #### [facility] [address] [place] [address] Dr. Saray Souza MONO # 0.6 103/ul Normal 0.3-0.8 [facility] Comment on above: Performed By: #### C BC #### [facility] [address] [place] [address] Dr. Saray Souza Monocytes/100 WBC (Bld) 8.3 % Normal 1.7-12.0 [facility] Comment on above: Performed By: #### C BC #### [facility] [address] [place] [address] Dr. Saray Souza NEUT # 5.5 103/ul Normal 1.4-6.5 [facility] Comment on above: Performed By: #### C BC #### [facility] [address] [place] [address] Dr. Saray Souza Neutrophils/100 WBC (Bld) 70.8 % Normal 43.0-75.0 [facility] Comment on above: Performed By: #### C BC #### [facility] [address] [place] [address] Dr. Saray Souza Platelet mean volume (Bld) [Entitic vol] 9.0 fL Critically low 9.5-13.5 [facility] Comment on above: Performed By: #### C BC #### [facility] [address] [place] [address] Dr. Saray Souza PLT 271 103/ul Normal 150-450 [facility] Comment on above: Performed By: #### C BC #### [facility] [address] [place] [address] Dr. Saray Souza RBC 4.58 106/ul Normal 4.20-5.40 [facility] Comment on above: Performed By: #### C BC #### [facility] [address] [place] [address] Dr. Saray Souza WBC 7.7 103/ul Normal 4.0-11.0 [facility] Comment on above: Performed By: #### C BC #### [facility] [address] [place] [address] Dr. Saray Souza FREE THYROXINE INDEX T7on FTI 2.56 Normal 1.30-4.50 [facility] Comment on above: Performed By: #### I NSULIN #### [facility] [address] [place] [address] Dr. Saray Souza T3U 36.0 % Normal 30.0-39.0 [facility] Comment on above: Performed By: #### I NSULIN #### [facility] [address] [place] [address] Dr. Saray Souza T4 [Mass/Vol] 7.10 ug/dL Normal 4.80-13.90 [facility] Comment on above: Performed By: #### I NSULIN #### [facility] [address] [place] [address] Dr. Saray Souza IRONon 03-24-2023 Iron [Mass/Vol] 130.0 ug/dL Normal 50.0-170.0 [facility] Comment on above: Performed By: #### C EDGARDO #### [facility] [address] [place] [address] Dr. Saray Souza PROF 14(COMP METB)on 023 Albumin [Mass/Vol] 3.8 g/dL Normal 3.4-5.0 [facility] Comment on above: Performed By: #### I NSULIN #### [facility] [address] [place] [address] Dr. Saray Souza Albumin/Globulin [Mass ratio] 1.2 {ratio} Normal [facility] Comment on above: Performed By: #### I NSULIN #### [facility] [address] [place] [address] Dr. Saray Sozua ALP [Catalytic activity/Vol] 82 U/L Normal 46-116 [facility] Comment on above: Performed By: #### I NSULIN #### [facility] [address] [place] [address] Dr. Saray Souza ALT [Catalytic activity/Vol] 25 U/L Normal 14-59 [facility] Comment on above: Performed By: #### I NSULIN #### [facility] [address] [place] [address] Dr. Saray Souza Anion gap [Moles/Vol] 12.7 mmol/L Normal [facility] Comment on above: Performed By: #### I NSULIN #### [facility] [address] [place] [address] Dr. Saray Souza AST [Catalytic activity/Vol] 19 U/L Normal 15-37 [facility] Comment on above: Performed By: #### I NSULIN #### [facility] [address] [place] [address] Dr. Saray Souza Bilirubin [Mass/Vol] 0.3 mg/dL Normal 0.2-1.0 [facility] Comment on above: Performed By: #### I NSULIN #### [facility] [address] [place] [address] Dr. Saray Souza Calcium [Mass/Vol] 8.8 mg/dL Normal 8.5-10.[address] [facility] Comment on above: Performed By: #### I NSULIN #### [facility] [address] [address] [address] Saray Souza Chloride [Moles/Vol] 101 mmol/L Normal 98-107 [facility] Comment on above: Performed By: #### I NSULIN #### [facility] [address] [address] [address] Saray Souza CO2 [Moles/Vol] 27.3 mmol/L Normal 21.0-32.0 [facility] Comment on above: Performed By: #### I NSULIN #### [facility] [address] [place] [address] Dr. Saray Souza Creatinine [Mass/Vol] 0.69 mg/dL Normal 0.55-1.02 [facility] Comment on above: Performed By: #### I NSULIN #### [facility] [address] [address] [address] Saray Souza EGFR-AF CROATIAN >60 Normal >=60 [facility] Comment on above: Performed By: #### I NSULIN #### [facility] [address] [place] [address] Dr. Saray Souza EGFR-NON AF CROATIAN >60 Normal >=60 [facility] Comment on above: Performed By: #### I NSULIN #### [facility] [address] [place] [address] Dr. Saray Souza Globulin (S) [Mass/Vol] 3.3 g/dL Normal [facility] Comment on above: Performed By: #### I NSULIN #### [facility] [address] [address] [address] Saray Souza Glucose [Mass/Vol] 83 mg/dL Normal 74-[address] [facility] Comment on above: Performed By: #### I NSULIN #### [facility] [address] [place] [address] Dr. Saray Souza Potassium [Moles/Vol] 4.0 mmol/L Normal 3.5-5.1 [facility] Comment on above: Performed By: #### I NSULIN #### [facility] [address] [address] [address] Saray Souza Protein [Mass/Vol] 7.1 g/dL Normal 6.4-8.2 [facility] Comment on above: Performed By: #### I NSULIN #### [facility] [address] [address] [address] Saray Souza Sodium [Moles/Vol] 137 mmol/L Normal 136-145 [facility] Comment on above: Performed By: #### I NSULIN #### [facility] [address] [place] [address] Dr. Saray Souza Urea nitrogen [Mass/Vol] 10.0 mg/dL Normal 7.0-18.0 [facility] Comment on above: Performed By: #### I NSULIN #### [facility] [address] [place] [address] Dr. Saray Souza Urea nitrogen/Creatinine [Mass ratio] 14.5 mg/mg Normal [facility] Comment on above: Performed By: #### I NSULIN #### [facility] [address] [place] [address] Dr. Saray Souza TSHon 02-13-2023 TSH 2.745 uIU/mL Normal 0.358-3.740 [facility] Comment on above: Performed By: #### I NSULIN #### [facility] [address] [place] [address] Dr. Saray Souza AMYLASEon 02-04-2023 Amylase [Catalytic activity/Vol] 45 U/L Normal 25-115 [facility] Comment on above: Performed By: #### T SH, CMP, HSTROPN, LIPA, LINDA #### [facility] [address] [place] [address] Dr. Saray Souza CBC AUTO DIFFon 02-04-2023 BASO # 0.0 103/ul Normal 0.0-0.1 [facility] Comment on above: Performed By: #### C BC #### [facility] [address] [place] [address] Dr. Saray Souza Basophils/100 WBC (Bld) 0.4 % Normal 0.2-2.0 [facility] Comment on above: Performed By: #### C BC #### [facility] [address] [place] [address] Dr. Saray Souza EO # 0.1 103/ul Normal 0.0-0.7 [facility] Comment on above: Performed By: #### C BC #### [facility] [address] [place] [address] Dr. Saray Souza Eosinophils/100 WBC (Bld) 1.7 % Normal 0.9-7.0 [facility] Comment on above: Performed By: #### C BC #### [facility] [address] [place] [address] Dr. Saray Souza Erythrocyte distribution width (RBC) [Ratio] 12.0 % Normal 11.0-15.0 [facility] Comment on above: Performed By: #### C BC #### [facility] [address] [place] [address] Dr. Saray Souza Hematocrit (Bld) [Volume fraction] 42.3 % Normal 36.0-48.0 [facility] Comment on above: Performed By: #### C BC #### [facility] [address] [place] [address] Dr. Saray Souza Hemoglobin (Bld) [Mass/Vol] 13.9 g/dL Normal 12.0-16.0 [facility] Comment on above: Performed By: #### C BC #### [facility] [address] [place] [address] Dr. Saray Souza IG # 0.03 10e3/ul Normal 0.00-0.03 [facility] Comment on above: Performed By: #### C BC #### [facility] [address] [place] [address] Dr. Saray Souza IG % 0.4 % Normal 0.0-0.5 [facility] Comment on above: Performed By: #### C BC #### [facility] [address] [place] [address] Dr. Saray Souza LYMPH # 1.5 103/ul Normal 1.2-3.8 [facility] Comment on above: Performed By: #### C BC #### [facility] [address] [place] [address] Dr. Saray Souza Lymphocytes/100 WBC (Bld) 20.4 % Critically low 20.5-60.0 [facility] Comment on above: Performed By: #### C BC #### [facility] [address] [place] [address] Dr. Saray Souza MANUAL DIFF REQ NO Normal [facility] Comment on above: Performed By: #### C BC #### [facility] [address] [place] [address] Dr. Saray Souza MCH (RBC) [Entitic mass] 30.0 pg Normal 26.7-34.0 [facility] Comment on above: Performed By: #### C BC #### [facility] [address] [place] [address] Dr. Saray Souza MCHC (RBC) [Mass/Vol] 32.9 g/dL Normal 29.9-35.2 [facility] Comment on above: Performed By: #### C BC #### [facility] [address] [place] [address] Dr. Saray Souza MCV (RBC) [Entitic vol] 91.2 fL Normal 81.0-99.0 [facility] Comment on above: Performed By: #### C BC #### [facility] [address] [place] [address] Dr. Saray Souza MONO # 0.6 103/ul Normal 0.3-0.8 [facility] Comment on above: Performed By: #### C BC #### [facility] [address] [place] [address] Dr. Saray Souza Monocytes/100 WBC (Bld) 7.7 % Normal 1.7-12.0 [facility] Comment on above: Performed By: #### C BC #### [facility] [address] [place] [address] Dr. Saray Souza NEUT # 5.2 103/ul Normal 1.4-6.5 [facility] Comment on above: Performed By: #### C BC #### [facility] [address] [place] [address] Dr. Saray Souza Neutrophils/100 WBC (Bld) 69.4 % Normal 43.0-75.0 [facility] Comment on above: Performed By: #### C BC #### [facility] [address] [place] [address] Dr. Saray Souza Platelet mean volume (Bld) [Entitic vol] 9.0 fL Critically low 9.5-13.5 [facility] Comment on above: Performed By: #### C BC #### [facility] [address] [place] [address] Dr. Saray Souza PLT 292 103/ul Normal 150-450 [facility] Comment on above: Performed By: #### C BC #### [facility] [address] [place] [address] Dr. Saray Souza RBC 4.64 106/ul Normal 4.20-5.40 [facility] Comment on above: Performed By: #### C BC #### [facility] [address] [place] [address] Dr. Saray Souza WBC 7.5 103/ul Normal 4.0-11.0 [facility] Comment on above: Performed By: #### C BC #### [facility] [address] [place] [address] Dr. Saray Souza CULTURE URINEon 02-04-2023 CULTURE URINE Culture Observations : LIGHT GROWTH OF MIXED GENITAL CARMELO. NO POTENTIAL PATHOGENS SEEN. Normal [facility] Comment on above: Performed By: #### C BC #### [facility] [address] [place] [address] Dr. Saray Souza ER URINE PROFILEon 3 Bilirubin Ql (U) Negative Normal NEGATIVE [facility] Comment on above: Performed By: #### C BC #### [facility] [address] [place] [address] Dr. Saray Souza Clarity (U) CLEAR Normal CLEAR [facility] Comment on above: Performed By: #### C BC #### [facility] [address] [address] [address] Saray Souza Color (U) LT. YELLOW Normal YELLOW [facility] Comment on above: Performed By: #### C BC #### [facility] [address] [address] [address] Saray Souza ERUAHD A micrscopic examination will be performed if indicated. Normal [facility] Comment on above: Performed By: #### C BC #### [facility] [address] [address] [address] Saray Souza Glucose Ql (U) Negative Normal NEGATIVE [facility] Comment on above: Performed By: #### C BC #### [facility] [address] [place] [address] Dr. Saray Souza Hemoglobin Ql (U) Negative Normal NEGATIVE [facility] Comment on above: Performed By: #### C BC #### [facility] [address] [place] [address] Dr. Saray Souza Ketones Ql (U) Negative Normal NEGATIVE [facility] Comment on above: Performed By: #### C BC #### [facility] [address] [place] [address] Dr. Saray Souza LEUKOCYTES MODERATE Abnormal NEGATIVE [facility] Comment on above: Performed By: #### C BC #### [facility] [address] [place] [address] Dr. Saray Souza Nitrite Ql (U) Negative Normal NEGATIVE [facility] Comment on above: Performed By: #### C BC #### [facility] [address] [place] [address] Dr. Saray Souza pH (U) 5.5 [pH] Normal 5-9 [facility] Comment on above: Performed By: #### C BC #### [facility] [address] [place] [address] Dr. Saray Souza SPEC GRAVITY >=1.030 Abnormal 1.005-<=1.025 [facility] Comment on above: Performed By: #### C BC #### [facility] [address] [place] [address] Dr. Saray Souza UA PROTEIN Negative Normal NEGATIVE/ TRACE [facility] Comment on above: Performed By: #### C BC #### [facility] [address] [place] [address] Dr. Saray Souza UR MICRO IND INDICATED Normal [facility] Comment on above: Performed By: #### C BC #### [facility] [address] [place] [address] Dr. Saray Souza Urobilinogen Qn (U) 0.2 {Janine'U}/dL Normal 0.2 - 1. 0 [facility] Comment on above: Performed By: #### C BC #### [facility] [address] [place] [address] Dr. Saray Souza LIPASEon 02-04-2023 Lipase [Catalytic activity/Vol] 97.0 U/L Normal 73.0-393.0 [facility] Comment on above: Performed By: #### T SH, CMP, HSTROPN, LIPA, LINDA #### [facility] [address] [place] [address] Dr. Saray Souza URon 02-04-2023 , QUAL Negative Normal NEGATIVE [facility] Comment on above: Performed By: #### C BC #### [facility] [address] [place] [address] Dr. Saray Souza PROF 14(COMP METB)on 023 Albumin [Mass/Vol] 3.5 g/dL Normal 3.4-5.0 [facility] Comment on above: Performed By: #### T SH, CMP, HSTROPN, LIPA, LINDA #### [facility] [address] [place] [address] Dr. Saray Souza Albumin/Globulin [Mass ratio] 1.2 {ratio} Normal [facility] Comment on above: Performed By: #### T SH, CMP, HSTROPN, LIPA, LINDA #### [facility] [address] [place] [address] Dr. Saray Souza ALP [Catalytic activity/Vol] 78 U/L Normal 46-116 [facility] Comment on above: Performed By: #### T SH, CMP, HSTROPN, LIPA, LINDA #### [facility] [address] [place] [address] Dr. Saray Souza ALT [Catalytic activity/Vol] 24 U/L Normal 14-59 [facility] Comment on above: Performed By: #### T SH, CMP, HSTROPN, LIPA, LINDA #### [facility] [address] [place] [address] Dr. Saray Souza Anion gap [Moles/Vol] 7.9 mmol/L Normal [facility] Comment on above: Performed By: #### T SH, CMP, HSTROPN, LIPA, LINDA #### [facility] [address] [place] [address] Dr. Saray Souza AST [Catalytic activity/Vol] 16 U/L Normal 15-37 [facility] Comment on above: Performed By: #### T SH, CMP, HSTROPN, LIPA, LINDA #### [facility] [address] [place] [address] Dr. Saray Souza Bilirubin [Mass/Vol] 0.3 mg/dL Normal 0.2-1.0 [facility] Comment on above: Performed By: #### T SH, CMP, HSTROPN, LIPA, LINDA #### [facility] [address] [place] [address] Dr. Saray Souza Calcium [Mass/Vol] 8.6 mg/dL Normal 8.5-10.1 [facility] Comment on above: Performed By: #### T SH, CMP, HSTROPN, LIPA, LINDA #### [facility] [address] [place] [address] Dr. Saray Souza Chloride [Moles/Vol] 105 mmol/L Normal 98-107 [facility] Comment on above: Performed By: #### T SH, CMP, HSTROPN, LIPA, LINDA #### [facility] [address] [place] [address] Dr. Saray Souza CO2 [Moles/Vol] 28.9 mmol/L Normal 21.0-32.0 [facility] Comment on above: Performed By: #### T SH, CMP, HSTROPN, LIPA, LINDA #### [facility] [address] [address] [address] Saray Souza Creatinine [Mass/Vol] 0.67 mg/dL Normal 0.55-1.02 [facility] Comment on above: Performed By: #### T SH, CMP, HSTROPN, LIPA, LINDA #### [facility] [address] [place] [address] Dr. Saray Souza EGFR-AF CROATIAN >60 Normal >=60 [facility] Comment on above: Performed By: #### T SH, CMP, HSTROPN, LIPA, LINDA #### [facility] [address] [place] [address] Dr. Saray Souza EGFR-NON AF CROATIAN >60 Normal >=60 [facility] Comment on above: Performed By: #### T SH, CMP, HSTROPN, LIPA, LINDA #### [facility] [address] [place] [address] Dr. Saray Souza Globulin (S) [Mass/Vol] 3.0 g/dL Normal [facility] Comment on above: Performed By: #### T SH, CMP, HSTROPN, LIPA, LINDA #### [facility] [address] [place] [address] Dr. Saray Souza Glucose [Mass/Vol] 97 mg/dL Normal 74-106 [facility] Comment on above: Performed By: #### T SH, CMP, HSTROPN, LIPA, LINDA #### [facility] [address] [place] [address] Dr. Saray Souza Potassium [Moles/Vol] 3.8 mmol/L Normal 3.5-5.1 [facility] Comment on above: Performed By: #### T SH, CMP, HSTROPN, LIPA, LINDA #### [facility] [address] [place] [address] Dr. Saray Souza Protein [Mass/Vol] 6.5 g/dL Normal 6.4-8.[address] [facility] Comment on above: Performed By: #### T SH, CMP, HSTROPN, LIPA, LINDA #### [facility] [address] [address] [address] Saray Souza Sodium [Moles/Vol] 138 mmol/L Normal 136-[address] [facility] Comment on above: Performed By: #### T SH, CMP, HSTROPN, LIPA, LINDA #### [facility] [address] [place] [address] Dr. Saray Souza Urea nitrogen [Mass/Vol] 13.0 mg/dL Normal 7.0-18.0 [facility] Comment on above: Performed By: #### T SH, CMP, HSTROPN, LIPA, LINDA #### [facility] [address] [place] [address] Dr. Saray Souza Urea nitrogen/Creatinine [Mass ratio] 19.4 mg/mg Normal [facility] Comment on above: Performed By: #### T SH, CMP, HSTROPN, LIPA, LINDA #### [facility] [address] [place] [address] Dr. Saray Souza TROPONIN, HIGH SENSITIVITYon 02-04-2023 HSTROP 4.0 pg/mL Normal 4.0-51.3 [facility] Comment on above: Result Comment: CUT- OFF POINTS HAVE BEEN ESTABLISHED BASED ON THE FOURTH UNIVERSAL DEFINITIONS OF MYOCARDIAL INFARCTION. THE UPPER REFERENCE LIMIT (URL) OF TROPONIN, DEFINED THE 99TH PERCENTILE OF cTnI DISTRIBUTION IN A REFERENCE POPULATION, HAS BEEN CONFIRMED THE DECISION THRESHOLD FOR MO DIAGNOSIS. Performed By: #### T SH, CMP, HSTROPN, LIPA, LINDA #### [facility] [address] [place] [address] Dr. Saray Souza TSHon 02-04-2023 TSH 2.478 uIU/mL Normal 0.358-3.740 [facility] Comment on above: Performed By: #### T SH, CMP, HSTROPN, LIPA, LINDA #### [facility] [address] [place] [address] Dr. Saray Souza URINE MICROSCOPIC ONLYon BACTERIA MODERATE Abnormal NONE SEEN [facility] Comment on above: Performed By: #### C BC #### [facility] [address] [place] [address] Dr. Saray Souza Bacteria identified Cx Nom (U) INDICATED Normal [facility] Comment on above: Performed By: #### C BC #### [facility] [address] [place] [address] Dr. Saray Souza CAST NONE SEEN Normal NONE SEEN [facility] Comment on above: Performed By: #### C BC #### [facility] [address] [place] [address] Dr. Saray Souza Crystals LM Nom (Urine sed) NONE SEEN Normal NONE SEEN [facility] Comment on above: Performed By: #### C BC #### [facility] [address] [place] [address] Dr. Saray Souza Epithelial cells LM Ql (Urine sed) MODERATE Abnormal NONE SEEN /RARE [facility] Comment on above: Performed By: #### C BC #### [facility] [address] [place] [address] Dr. Saray Souza MUCOUS NONE SEEN Normal NONE SEEN [facility] Comment on above: Performed By: #### C BC #### [facility] [address] [place] [address] Dr. Saray Souza RBC 5-10 Abnormal 0-2 [facility] Comment on above: Performed By: #### C BC #### [facility] [address] [place] [address] Dr. Saray Souza WBC 10-20 Abnormal NONE SEEN [facility] Comment on above: Performed By: #### C BC #### [facility] [address] [place] [address] Dr. Saray Souza Covid-19 PCR (CVDTB)on 09-24 SARS-CoV-2 (COVID-19) RNA DAYDAY+probe Ql (Unsp spec) Not detected Normal NOT DETECTED [facility] Comment on above: Result Comment: When diagnostic testing is negative, the possibility of a false negative should be considered in the context of a patient's recent exposures and the presence of clinical signs and symptoms consistent with SARS-CoV-2. This test is not yet approved or cleared by the [place] FDA. When there are no FDA-approved or cleared tests available, and other criteria are met, FDA can make tests available under an emergency access mechanism called an Emergency Use Authorization (EUA). The EUA for this test is supported by the Healthcare Associate of Health and Human Service's declaration that circumstances exist to justify the emergency use of in vitro diagnostics for the detection and/or diagnosis of the virus that causes COVID-19. This EUA will remain in effect for the duration of the COVID-19 declaration justifying emergency of IVDs, unless it is terminated or revoked by the FDA (after which the test may no longer be used). Performed By: #### C BC #### [facility] [address] [place] [address] Dr. Saray Souza INFLUENZA A AND B [facility] 10-20 [facility] SEE BELOW Normal [facility] Comment on above: Result Comment: Nega tive for Flu A protein angiten. Infection due to Flu A cannot be ruled out. Flu A angiten in the sample may be below the detection limit of the test. Performed By: #### C BC #### [facility] [address] [place] [address] Dr. Sar[facility] Sou[facility] Normal [facility] Comment on above: Result Comment: Nega tive for Flu B protein antigen. Infection due to Flu B cannot be ruled out. Flu B antigen in the sample may be below the detection limit of the test. Performed By: #### C BC #### [facility] [address] [place] [address] Dr. Saray Souza INFLUENZA A AG Negative Normal NEGATIVE SEE COMMENT [facility] Comment on above: Performed By: #### C BC #### [facility] [address] [place] [address] Dr. Saray Souza INFLUENZA B AG Negative Normal NEGATIVE SEE COMMENT [facility] Comment on above: Performed By: #### C BC #### [facility] [address] [place] [address] Dr. Saray Souza INTERNAL CONTROLS Within Normal Limits Normal Wi thin Normal Limits [facility] Comment on above: Performed By: #### C BC #### [facility] [address] [place], [place] [address] Dr. Saray Souza STREPT SCREENon 10-20-2022 STREP SCREEN A Positive Abnormal NEGATIVE [facility] Comment on above: Performed By: #### C BC #### [facility] [address] [place], [place] [address] Dr. Saray Souza XR SHOULDER RT INJon 022 XR SHOULDER RT INJ EXAMINATION: XR SHOULDER RT INJ HISTORY: Strain of tendon of upper arm COMPARISON: No relevant comparison available. FLUOROSCOPY TIME: Fluoro time measures 1.5 minutes and 2 images were obtained. TECHNIQUE: A joint injection was performed in the usual sterile manner after obtaining informed consent. Standard level fluoroscopic mode of operation utilized. FINDINGS: JOINT: Right shoulder NEEDLE: 22 gauge, 3.5 spinal needle. MEDICATION: 2cc buffered 1% lidocaine for subcutaneous anesthesia 2cc Omnipaque-300 iodinated contrast to visualize the joint space Mixture of Kenalog 40 mg, 0.5% Bupivacaine 2 mL and Omnipaque 24 10 mL was injected into the joint space. TECHNIQUE: Anterior approach with prior localization of the femoral artery. A single stick was successful in gaining access to the joint space. CLINICAL: Slight decrease in pain immediately following the injection. COMPLICATIONS: None. OTHER: Negative. IMPRESSION: 1. Technically successful right shoulder injection. Clinical follow-up recommended. Electronically authenticated by: ADRIANA MENDEZ Date: 2022-07-18 17:05 Normal [facility] MRI SHOULDER RT WO CONon MRI SHOULDER RT WO CON EXAMINATION: MRI SHOULDER RT WO CON HISTORY: Impingement syndrome of right shoulder region COMPARISON: No relevant comparison available. TECHNIQUE: A variety of imaging planes and parameters were utilized for visualization of suspected pathology. Imaging was performed without contrast. FINDINGS: ROTATOR CUFF REGION CUFF TENDONS: Moderate increased signal intensity in the supraspinatus tendon indicates tendon degeneration and/or tendinitis. No mendez tear is seen. CUFF MUSCLES: Normal appearing muscles. DELTOID: Normal. No significant atrophy or tear. LONG BICEPS TENDON: Normal. No abnormal signal, attrition, or tear. LABRUM/BICEPS ANCHOR SUPERIOR: No visible labral tear or biceps anchor pathology. ANTERIOR/INFERIOR: No visible tear or attrition. POSTERIOR: No posterior labrum abnormality. CAPSULE Normal. No visible capsular laxity or thickening. AC JOINT REGION AC JOINT: Normal acromioclavicular joint. AC LIGAMENTS: Normal acromioclavicular ligament. CC LIGAMENTS: Normal coracoclavicular ligaments. ACROMION: Normal horizontal (Type I) configuration. SUBACROMIAL BURSA: Normal. No significant effusion. HYALINE CARTILAGE: Normal. No visible cartilage narrowing or focal defect. OTHER BONES: Normal proximal humerus, glenoid, and coracoid. OTHER OBSERVATIONS: Negative. No other significant findings or glenohumeral effusion. IMPRESSION: 1. Mild-moderate strain of the supraspinatus tendon. 2. No appreciable rotator cuff tear. Electronically authenticated by: ADRIANA MENDEZ Date: 2022-07-10 10:10 Normal [facility] XR ARTHRO SHLD RTon 07-10-20 XR ARTHRO SHLD RT EXAMINATION: XR ARTH RO SHLD RT HISTORY: Impingement syndrome of right shoulder region COMPARISON: No relevant comparison available. TECHNIQUE: An arthrogram was performed under fluoroscopic guidance using non-ionic contrast material in the usual sterile manner after obtaining informed consent. Standard level fluoroscopic mode of operation utilized. FINDINGS: JOINT: Right shoulder NEEDLE: 25 gauge, 3.5 spinal needle. MEDICATION: Approximately 7 mL injected into joint space consisting of a mixture of 5 cc Omnipaque-300, 5 cc 1% Xylocaine and 0.2 cc Dotarem. TECHNIQUE: Anterior approach under fluoroscopic guidance. CLINICAL: Decreased pain following the injection (4/10 preinjection; 1/10 post injection). COMPLICATIONS: None. BONES: No fracture, significant osseous degenerative changes, or visible bone lesion. BURSA: No visible extension of contrast into the subacromial-subdeltoid bursa at this time. OTHER: Negative. IMPRESSION: 1. Technically successful arthrogram without complication. 2. Please see separate MRI arthrogram report. Electronically authenticated by: ADRIANA MENDEZ Date: 2022-07-10 10:01 Normal [facility] No Panel Informationon 03-18 Right Eye Reliability was good. Findings include normal observations. Left Eye Reliability was good. Findings include normal observations. Notes I personally reviewed the visual zaldivar performed by this patient on 03/18/22. The visual zaldivar are normal OU with good fixation. Francisco Ayers MD [facility] Radiology Study observation (narrative) [facility] Progress Noteson 03-18-2022 Storage Battery Inspector Authentication Interface Message Text Referred by [facility] for disc edema, concern for IIH - Seen by Dr. Cody Land 01/27/22-- documented questionable elevation of optic nerve OU, concern for IIH given new onset headaches and pulsatile tinnitus - Daily headaches, relieved by Naproxen, not affected by changes in position, 4-5 months - MRI 02/10/22: wnl - +pulsatile tinnitus for same duration - No double vision, TVOs - VA 20/20 OU, IOP good - IIH risk factors: obesity - Current meds: naproxen PRN On exam, discs are without edema or pallor OU. +disc drusen OU - HVF 30-2 03/18/22 wnl OU - Color plates full - Pupils PERRL - Ocular motility full Assessment/Plan: - No concern for IIH given normal MRI, no disc edema - F/u with PCP (Aniyah Hair) regarding headaches-- will fax information to [phone] - Offered referral to neurology, patient prefers to talk to Dr. Hargrove first - Follow-up 1 year Estella Guerrero MD Ophthalmology Resident PGY-[address] Ayers I saw and evaluated the patient. I personally obtained the carey and critical portions of the history and the ophthalmologic exam. I reviewed the resident's documentation and discussed the patient's history and examination with the resident. I agree with the ophthalmology resident's medical decision making as documented in the resident's note. 26 year old thought to have papilledema. Patient has daily headaches and tinnitis. 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 MRI of the head was normal. HVF today is normal OU. On exam the vision and IOP's are normal. On fundus exam there are optic disc drusen OU. No optic disc edema. Imp: No papilledema. Patient will FU with her PCP. Francisco Ayers MD Normal [facility] Ambulatory Clinical Summaryo n 10-09-2021 Ambulatory Clinical Summary {[id number] Normal [facility] General Surgery Office/Clini c Noteon 10-09-2021 General Surgery Office/Clinic Note Chief Complaint post operative follow up HPI Staff 7 day post operative follow up post lap cholecystectomy. Minimal soreness. Denies bleeding or drainage from incision sites. History of Present Illness 1 week s/p LS cholecystectomy, pathology with chronic calculus cholecystitis; doing well; not taking any pain meds; no N/V; normal bms; no fevers, no drainage from incisions. Review of Systems ROS - Provider Constitutional: no fever, no sweats, no weight loss. Eyes: no glasses, no blurred vision, no visual loss. ENMT: no dentures, no hoarseness, no swallowing difficulties, no hearing loss, no ear infection(s), no nose bleeds. Cardiovascular: normal blood pressure, no chest pain, regular heartbeat, no heart murmur. Respiratory: no shortness of breath, no cough, no asthma, no wheezing. Gastrointestinal: no nausea, no vomiting, no diarrhea, no constipation, no blood in stool, no change in bowel habits, mild abdominal pain, no hepatitis. Genitourinary: no kidney stones, no urine infection, no dysuria. Musculoskeletal: no pain, no weakness. Skin: no changing moles, no rash, no skin lumps. Neurologic: no seizures, no epilepsy, no headache. Psychiatric: no emotional or psychiatric problem. Heme/Lymph: no bleeding problems, no anemia, no blood clots, no transfusions. Allergy/Immunologic: no swollen lymph nodes/glands, no IV drug abuse. Other: Additional ROS info: Except as noted in the above Review of Systems and in the History of Present Illness, all other systems have been reviewed and are negative or noncontributory. Physical Exam Vitals & Measurements T: 36.4 ?C (Temporal Artery) abd: obese, soft, normal bs, incisions with resolving ecchymoses, no erythema or drainage; no ecchymoses. Assessment/Plan 1. Chronic cholecystitis with calculus (K80.10: Calculus of gallbladder with chronic cholecystitis without obstruction) doing well, continue no lifting > 10 lbs for 3 weeks; call with problems/questions. Follow-up With When Contact Information RUTH CLARK, [place] Crystal Only if needed [address] [place] [address]- Additional Instructions: Problem List/Past Medical History Ongoing Abdominal pain, RUQ Abnormal ultrasound of gallbladder Acne vulgaris Anxiety BMI 45.0-49.9, adult Chronic cholecystitis with calculus Epigastric pain GERD (gastroesophageal reflux disease) IBS (irritable bowel syndrome) Insomnia Laryngopharyngeal reflux Mood disorder Scoliosis Historical No qualifying data Procedure/Surgical History Laparoscopic cholecystectomy (10/02/2021), Colonoscopy, Correction of hammer toe, Hallux valgus correction by phalanx osteotomy, Left salpingo-oophorectomy, Plantar fasciotomy. Medications Linzess 145 mcg oral capsule, 145 mcg= 1 cap(s), Oral, Daily Mirena 52 mg intrauteral device, 52 mg= 1 EA, IntraUteral, Once ondansetron 4 mg Tab, 4 mg= 1 tab(s), Oral, q6hr Pantoprazole [address] Tab, 40 mg= 1 tab(s), Oral, BID Zoloft 100 mg Tab, 100 mg= 1 tab(s), Oral, Daily Allergies No Known Allergies No Known Medication Allergies Social History Alcohol - Denies Alcohol Use, 09/20/2021 Substance Abuse - Denies Substance Abuse, 09/20/2021 Tobacco Never (less than 100 in lifetime) Tobacco Use:. Never Smokeless Tobacco Use:., 09/20/2021 Family History Bipolar: Sister. Depression: Father. Hyperlipidemia: Father. Hypertension: Father. Immunizations Vaccine Date Status SARS-CoV-2 (COVID-19) mRNA-1273 vaccine 04/15/2021 Recorded SARS-CoV-2 (COVID-19) mRNA-1273 vaccine 03/18/2021 Recorded Normal [facility] Comment on above: Result Comment: Elec tronically Signed By: RUTH CLARK, Yonis Mckenzie\.br\Date and Time Signed: 10/09/21 15:14 EST Pathology Noteon 10-04-2021 Pathology Note [id number]. 00CD:127 Normal [facility] Operative Reporton Operative Report [id number] 0CD:127 Normal [facility] ECG 12-Leadon 10-02-2021 ECG 12-Lead [id number] 0CD:127 Normal [facility] Lab Reportson 10-02-2021 Lab Reports [id number] 0CD:127 Normal [facility] Consent for Procedure/Surger yon 10-01-2021 Consent for Procedure/Surgery [id number] 0CD:127 Normal [facility] Ambulatory Clinical Summaryo n 09-30-2021 Ambulatory Clinical Summary {[id number] Normal [facility] General Surgery Office/Clini c Noteon 09-30-2021 General Surgery Office/Clinic Note Chief Complaint follow up after CT completed HPI Staff Presents to follow up after CT. Last eval 09/20. Taking Protonix BID without relief in symptoms. History of Present Illness 26 yo female with several month h/o intermittent upper abdominal pain and GERD, worsening over last several weeks; seen last week and abd ct scan ordered; had US that revealed poor visualization of GB, thickening of GB wall wit stone in lower gallbladder; increased Protonix to bid with some improvement; seen in [facility] ED 2 days ago, abd ct with thickening of GB wall, no acute inflammation; no ductal dilation; dx with UTI, on Levaquin and light diet with some improvement, no fevers. no asa or NSAID use; normal labs in ED; abdominal operations significant for LS salpingo-oophorectomy; no h/o jaundice or pancreatitis. Review of Systems ROS - Provider Constitutional: no fever, no sweats, no weight loss. Eyes: no glasses, no blurred vision, no visual loss. ENMT: no dentures, no hoarseness, no swallowing difficulties, no hearing loss, no ear infection(s), no nose bleeds. Cardiovascular: normal blood pressure, no chest pain, regular heartbeat, no heart murmur. Respiratory: no shortness of breath, no cough, no asthma, no wheezing. Gastrointestinal: yes nausea, no vomiting, no diarrhea, no constipation, no blood in stool, no change in bowel habits, moderate abdominal pain, no hepatitis. Genitourinary: no kidney stones, no urine infection, no dysuria. Musculoskeletal: no pain, no weakness. Skin: no changing moles, no rash, no skin lumps. Neurologic: no seizures, no epilepsy, no headache. Psychiatric: no emotional or psychiatric problem. Heme/Lymph: no bleeding problems, no anemia, no blood clots, no transfusions. Allergy/Immunologic: no swollen lymph nodes/glands, no IV drug abuse. Other: Additional ROS info: Except as noted in the above Review of Systems and in the History of Present Illness, all other systems have been reviewed and are negative or noncontributory. Physical Exam Vitals & Measurements T: 36.3 ?C (Temporal Artery) HR: 80(Peripheral) RR: 16 BP: 120/86 HT: 172.7 cm HT: 172.72 cm WT: 134.0 kg WT: 134 kg BMI: 44.92 HEENT: normal conjunctiva, sclera clear, no scleral icterus, EOM intact, PERRLA, oral mucosa moist without lesions. Neck: trachea midline, no mass, symmetric, no thyromegaly or nodules, no adenopathy Respiratory: lungs CTA, respirations non labored. Cardiovascular: regular rate and rhythm, no murmur, no pedal edema or varicosities. Gastrointestinal:obese , non distended, mild tenderness, upper abdomen, no peritoneal sings, no masses, no HSM, no hernias Lymphatic: no cervical adenopathy, Musculoskeletal: normal gait, digits and nails without infection, nodes, cyanosis, clubbing. Skin: no rashes, no lesions, no ulcers, no subcutaneous nodules, induration. Psychiatric/Neuro: oriented to time, place, person, judgement normal, affect appropriate for age, insight intact, no focal deficits. Tests: labs reviewed, x-rays reviewed, review of old records completed, Discussed surgical options, risks, and possible complications with patient. Assessment/Plan 1. Chronic cholecystitis with calculus (K80.10: Calculus of gallbladder with chronic cholecystitis without obstruction) plan Laparoscopic cholecystectomy with possible IOC, possible open procedure, informed consent obtained. Unasyn 3 gms IV prior to OR SCDSs Follow-up No qualifying data available Problem List/Past Medical History Ongoing Abdominal pain, RUQ Abnormal ultrasound of gallbladder Acne vulgaris Anxiety BMI 45.0-49.9, adult Chronic cholecystitis with calculus Epigastric pain GERD (gastroesophageal reflux disease) IBS (irritable bowel syndrome) Insomnia Laryngopharyngeal reflux Mood disorder Scoliosis Historical No qualifying data Procedure/Surgical History Colonoscopy, Correction of hammer toe, Hallux valgus correction by phalanx osteotomy, Left salpingo-oophorectomy, Plantar fasciotomy. Medications Linzess 145 mcg oral capsule, 145 mcg= 1 cap(s), Oral, Daily Mirena 52 mg intrauteral device, 52 mg= 1 EA, IntraUteral, Once ondansetron 4 mg Tab, 4 mg= 1 tab(s), Oral, q6hr Pantoprazole [address] Tab, 40 mg= 1 tab(s), Oral, BID Zoloft 100 mg Tab, 100 mg= 1 tab(s), Oral, Daily Allergies No Known Allergies No Known Medication Allergies Social History Alcohol - Denies Alcohol Use, 09/20/2021 Substance Abuse - Denies Substance Abuse, 09/20/2021 Tobacco Never (less than 100 in lifetime) Tobacco Use:. Never Smokeless Tobacco Use:., 09/20/2021 Family History Bipolar: Sister. Depression: Father. Hyperlipidemia: Father. Hypertension: Father. Immunizations Vaccine Date Status SARS-CoV-2 (COVID-19) mRNA-1273 vaccine 04/15/2021 Recorded SARS-CoV-2 (COVID-19) mRNA-1273 vaccine 03/18/2021 Recorded Normal [facility] Comment on above: Result Comment: Elec tronically Signed By: RUTH CLARK, Yonis Mckenzie\gaby\Date and Time Signed: 09/30/21 21:20 EST Outside Radiologyon 09-30-20 21 Outside Radiology [id number] 0CD:127 Normal [facility] [place] [facility] September 25, 2021 DANIEL CELAYA, [address], [place] [address] Re: ROSALIE FREEMAN Date of : 1995 Thank you for your referral of Rosalie Freeman who was seen on consultation on 09/20/2021 for 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 I have enclosed my consultation note for your review. I will be happy to follow Rosalie should her symptoms persist. Sincerely, Yonis Carney MD General Surgery Normal [facility] Ambulatory Clinical Summaryo n 09-20-2021 Ambulatory Clinical Summary {[id number]}CD:[id number] Normal [facility] ED Note-Physicianon 09-20-20 21 ED Note-Physician [id number] 0CD:127 Normal [facility] Physician Referralon 021 Physician Referral [id number] 0CD:127 Normal [facility] RAD - Ultrasound Reporton RAD - Ultrasound Report [id number] 0CD:127 Normal [facility] Cytologyon 12-20-2018 Cytology (NOTE) [id number] [facility] PATHOLOGISTS [facility] ANATOMIC PATHOLOGY [address] [place] [address]. [place], [place] [address] GYNECOLOGIC CYTOLOGY REPORT Patient Name: ROSALIE FREEMAN V. MR#: [id number] Specimen #[id number] Source: 1: Cervical material, (ThinPrep vial, Imaging-assisted review) Clinical History Z01.419 Routine public welfare director exam without abnormal findings High Risk HPV DNA testing is requested if the diagnosis is ASC-US LMP: implant INTERPRETATION Cervical material, (ThinPrep vial, Imaging-assisted review): Specimen Adequacy: Satisfactory for evaluation. - Endocervical/transform ation zone component present. - Scant cellularity; predominantly blood. Descriptive Diagnosis: Negative for intraepithelial lesion or malignancy. Ophthalmic Aide: KANCHAN Mendoza(ASCP) Electronically Signed Out donna/01/03/2019 [facility] Comment on above: Performed By: #### P PPVP #### Room [address] [place] [address] [employer] Supervisor: Vega Wilkerson MD Vital Signs Date Time Vital Sign Value Performing Clinician Facility 11-19-2021 15:30-0500 Body height 180.34 cm Nandini Scarlett Other [facility] Other 11-19-2021 15:30-0500 Body mass index (BMI) [Ratio] 41.56 kg/m2 Nandini Scarlett Other [facility] Other 11-19-2021 15:30-0500 Body weight 135.17 kg Nandini Scarlett Other [facility] Other 11-19-2021 15:30-0500 Diastolic blood pressure 76 mm[Hg] Nandini Pantoja Other [facility] Other 11-19-2021 15:30-0500 Systolic blood pressure 128 mm[Hg] Nandini Scarlett Other [facility] Other Encounters Encounter Date Encounter Type Care Provider Facility Start: 04-17-2023 End: 04-17-2023 ambulatory SALMA MONET . Facility:[facility] Start: 04-06-2023 End: 04-07-[address] MELODIE HARGROVE . Facility:[facility] Start: 04-04-2023 Encounter for genera l adult medical examination without abnormal findings DR MELODIE HARGROVE . [facility] Start: 04-03-2023 End: 04-04-[address] MELODIE HARGROVE . Facility:[facility] Start: 04-01-2023 End: 04-02-[address] MELODIE HARGROVE . Facility:[facility] Start: 04-01-2023 End: 04-02-2023 Encounter for general adult medical examination without abnormal findings DR MELODIE HARGROVE . Facility:[facility] Start: 02-13-2023 End: 02-14-[address] MELODIE HARGROVE . Facility:[facility] Start: 02-04-2023 End: 02-04-2023 ambulatory ELLIS TOLEDO Facility:[facility] Start: 10-20-2022 End: 10-20-2022 ambulatory DANIEL CELAYA Facility:[facility] Start: 08-05-2022 End: 08-05-2022 ambulatory JETHRO GRIFFITH Facility:[facility] Start: 07-18-2022 End: 07-18-[address] MELODIE HARGROVE . Facility:[facility] Start: 07-10-2022 End: 07-10-[address] MELODIE HARGROVE . Facility:[facility] Start: 06-03-2022 End: 06-24-[address] MELODIE HARGROVE . Facility:[facility] Start: 05-13-2022 End: 05-14-[address] MELODIE HARGROVE . Facility:[facility] Start: 03-18-2022 End: 03-18-2022 ambulatory UNKNOWN PROVIDER Facility:[facility] Start: 11-19-2021 End: 11-19-2021 ambulatory Nandini Pantoja Other [facility] Other Start: 11-19-2021 Office outpatient ne w 30 minutes Nandini Pantoja [facility] Start: 12-20-2018 End: 12-21-2018 Patient encounter procedure ANDRESSA ESCALANTE [facility] Procedures Date Procedure Procedure Detail Performing Clinician Start: 03-18-2022 Visual field xm uni/ bi w/interp extended exam Estella Guerrero MD Work Phone: Start: 03-18-2022 End: 03-18-2022 Ophth medical xm&eval compre new pt 1/> vst Chronic nonintractable headache, unspecified headache type Estella Guerrero MD Work Phone: Comment on above: Chronic nonintractab le headache, unspecified headache type (Primary Dx) Start: 12-20-2018 Cytopathology proced ure, preparation of smear, genital source ANDRESSA ESCALANTE Plan of Treatment Date Care Activity Detail Author Start: 2043 Shingles (RZV) Vacci ne (1 of 2) Shingles (RZV) Vaccine (1 of 2) [facility] Start: 2014 Screening for malign ant neoplasm of cervix Pap Smear [facility] Start: 2011 Hepatitis C screening Hepatitis C An tibody [facility] Start: 2011 Tetanus + diphtheria + acellular pertussis vaccine (product) Tdap Booster [facility] Start: 2008 HIV screening HIV Test [facility] Start: 1998 COVID-19 Vaccine (1) COVID-19 Vaccin e (1) [facility] Immunizations Immunization Date Immunization Notes Care Provider Fa jessica 03-21-2014 influenza virus vacc ine, unspecified formulation Estella Guerrero MD Work Phone: [facility] Payers Date Payer Category Payer Unknown [facility] [employer] [employer] [id number] 2017-Present [id number] 1993 Unknown [id number] 1993 Unknown [id number] 1993 Unknown [id number] [id number] 1993 Unknown [id number] [id number] 1993 Unknown [id number] [id number] 1993 Unknown [id number] [id number] 1993 Unknown [id number] 2.16.840.1.366532.3.579.2.593 1993 Unknown [id number] [id number] 1993 Unknown [id number] 2.16.840.1.890585.3.579.2.593 1993 Unknown [id number] 2.16.840.1.290347.3.579.2.593 1993 Unknown [id number] [id number] 1993 Unknown [id number] 2.16.840.1.811315.3.579.2.593 1993 Unknown [id number] 2.16.840.1.763894.3.579.2.593 1993 Unknown [id number] [id number] 1959 Unknown [id number] Social History Date Type Detail Facility Tobacco smoking status [facility] Tobacco smoking consumption unknown [facility] Other Start: 1993 Sex Assigned At Not on file M [facility] Clinical Note 05-13-2022 Note Date & Type Note Facility 05-13-2022 Note PROCEDURE: XR SHOULD ER RT 2V or > COMPARISON: None. HISTORY: Pain of right shoulder joint FINDINGS: BONES:No fracture, acute abnormality, or significant arthropathy. SOFT TISSUES:Negative. No visible soft tissue swelling. EFFUSION:None visible. OTHER: Negative. IMPRESSION: Normal examination. Electronically authenticated by: NANDINI MAYER Date: 2022-05-13 08:41 [facility] History of Present illness Narrative 03-18-2022 Francisco Ayers MD - 03/18/2022 10:43 AM EDT Note Date & Type Note Facility 03-18-2022 History of Presen t illness Narrative Referred by [facility] for disc edema, concern for IIH - Seen by Dr. Cody Land 01/27/22-- documented questionable elevation of optic nerve OU, concern for IIH given new onset headaches and pulsatile tinnitus - Daily headaches, relieved by Naproxen, not affected by changes in position, 4-5 months - MRI 02/10/22: wnl - +pulsatile tinnitus for same duration - No double vision, TVOs - VA 20/20 OU, IOP good - IIH risk factors: obesity - Current meds: naproxen PRN On exam, discs are without edema or pallor OU. +disc drusen OU - HVF 30-2 03/18/22 wnl OU - Color plates full - Pupils PERRL - Ocular motility full Assessment/Plan: - No concern for IIH given normal MRI, no disc edema - F/u with PCP (Aniyah Hair) regarding headaches-- will fax information to [phone] - Offered referral to neurology, patient prefers to talk to Dr. Hargrove first - Follow-up 1 year Estella Guerrero MD Ophthalmology Resident PGY-[address] Ayers I saw and evaluated the patient. I personally obtained the carey and critical portions of the history and the ophthalmologic exam. I reviewed the resident's documentation and discussed the patient's history and examination with the resident. I agree with the ophthalmology resident's medical decision making as documented in the resident's note. 26 year old thought to have papilledema. Patient has daily headaches and tinnitis. 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 MRI of the head was normal. HVF today is normal OU. On exam the vision and IOP's are normal. On fundus exam there are optic disc drusen OU. No optic disc edema. Imp: No papilledema. Francisco Ayers MD documented in this encounter [facility] History of Present illness Narrative 03-18-2022 Francisco Ayers MD - 03/18/2022 10:43 AM EDT Note Date & Type Note Facility 03-18-2022 History of Presen t illness Narrative Referred by [facility] for disc edema, concern for IIH - Seen by Dr. Cody Land 01/27/22-- documented questionable elevation of optic nerve OU, concern for IIH given new onset headaches and pulsatile tinnitus - Daily headaches, relieved by Naproxen, not affected by changes in position, 4-5 months - MRI 02/10/22: wnl - +pulsatile tinnitus for same duration - No double vision, TVOs - VA 20/20 OU, IOP good - IIH risk factors: obesity - Current meds: naproxen PRN On exam, discs are without edema or pallor OU. +disc drusen OU - HVF 30-2 03/18/22 wnl OU - Color plates full - Pupils PERRL - Ocular motility full Assessment/Plan: - No concern for IIH given normal MRI, no disc edema - F/u with PCP (Aniyah Hair) regarding headaches-- will fax information to [phone] - Offered referral to neurology, patient prefers to talk to Dr. Hargrove first - Follow-up 1 year Estella Guerrero MD Ophthalmology Resident PGY-[address] Ayers I saw and evaluated the patient. I personally obtained the carey and critical portions of the history and the ophthalmologic exam. I reviewed the resident's documentation and discussed the patient's history and examination with the resident. I agree with the ophthalmology resident's medical decision making as documented in the resident's note. 26 year old thought to have papilledema. Patient has daily headaches and tinnitis. 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 MRI of the head was normal. HVF today is normal OU. On exam the vision and IOP's are normal. On fundus exam there are optic disc drusen OU. No optic disc edema. Imp: No papilledema. Patient will FU with her PCP. Francisco Ayers MD documented in this encounter [facility] Clinical Note 09-23-2021 Note Date & Type Note Facility 09-23-2021 Note Chief Complaint consultation for epigastric pain HPI Staff 26 year old female presents on consultation from Kate Celaya QUALITY IMPROVEMENT COORDINATOR (RN) for 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 RUQ US completed 09/19 with acute vs chronic cholecystitis. Verbalized chronic epigastric pain with burning sensation and acid reflux. Intermittent vomiting. Omeprazole changed to Pantoprazole at ED visit. ROS - Provider Constitutional: no fever, no sweats, no weight loss. Eyes: no glasses, no blurred vision, no visual loss. ENMT: no dentures, no hoarseness, no swallowing difficulties, no hearing loss, no ear infection(s), no nose bleeds. Cardiovascular: normal blood pressure, no chest pain, regular heartbeat, no heart murmur. Respiratory: no shortness of breath, no cough, no asthma, no wheezing. Gastrointestinal: yes nausea, no vomiting, no diarrhea, no constipation, no blood in stool, no change in bowel habits, yes abdominal pain, no hepatitis. Genitourinary: no kidney stones, no urine infection, no dysuria. Musculoskeletal: no pain, no weakness. Skin: no changing moles, no rash, no skin lumps. Neurologic: no seizures, no epilepsy, no headache. Psychiatric: no emotional or psychiatric problem. Heme/Lymph: no bleeding problems, no anemia, no blood clots, no transfusions. Allergy/Immunologic: no swollen lymph nodes/glands, no IV drug abuse. Other: Additional ROS info: Except as noted in the above Review of Systems and in the History of Present Illness, all other systems have been reviewed and are negative or noncontributory. HEENT: normal conjunctiva, sclera clear, no scleral icterus, EOM intact, PERRLA, oral mucosa moist without lesions. Neck: trachea midline, no mass, symmetric, no thyromegaly or nodules, no adenopathy Respiratory: lungs CTA, respirations non labored. Cardiovascular: regular rate and rhythm, no murmur, no pedal edema or varicosities. Gastrointestinal: obese, soft, non distended, moderate tenderness, epigastrium and RUQ, no peritoneal signs. no masses, no palpable hernias, diastasis recti yes, no hepatosplenomegaly; normal bs Lymphatic: no cervical adenopathy, no axillary adenopathy, no inguinal adenopathy. Musculoskeletal: normal gait, digits and nails without infection, nodes, cyanosis, clubbing. Skin: no rashes, no lesions, no ulcers, no subcutaneous nodules, induration. Psychiatric/Neuro: oriented to time, place, person, judgement normal, affect appropriate for age, insight intact, no focal deficits. Tests: labs reviewed, x-rays reviewed, review of old records completed, 26 yo female with h/o GERD, referred for epigastric pain; present for several years, worsening over last several weeks; some nausea; intermittent emesis; pain ache, burning at time; some radiation into chest, no dysphagia; worse with certain foods; symptoms usually last several hours; 3 days ago had episode that persisted after eating pizza, seen in ED, improved with GI cocktail; outpatient GB US with thickened, contracted GB with 1.9 cm stone in neck of GB, no ductal dilation; normal labs in ED. on light diet now, still with some ache, no emesis; normal bms; no fevers; PPI changed to Protonix yesterday. 1. Epigastric pain (R10.13: Epigastric pain) continue Protonix, can increase to bid if no improvement in several days 2. Abdominal pain, RUQ (R10.11: Right upper quadrant pain) gall; bladder poorly visualized; not distended, but contracted, more consistent with chronic cholecystitis; check abdominal/pelvic ct scan for further evaluation of gallbladder, will call patient with results; call sooner if problems/questions; or for severe pain, N/V, return to ED. 3. Abnormal ultrasound of gallbladder (R93.2: Abnormal findings on diagnostic imaging of liver and biliary tract) see # 2 Review of Systems PHQ Score Initial Depression Screen Score: 0 Physical Exam Vitals & Measurements T: 36.5 ?C (Temporal Artery) HR: 72(Peripheral) RR: 16 BP: 130/86 HT: 172.72 cm HT: 172.7 cm WT: 134.3 kg WT: 134.3 kg BMI: 45.02 Assessment/Plan 1. Epigastric pain (R10.13: Epigastric pain) 2. Abdominal pain, RUQ (R10.11: Right upper quadrant pain) 3. Abnormal ultrasound of gallbladder (R93.2: Abnormal findings on diagnostic imaging of liver and biliary tract) Follow-up No qualifying data available Problem List/Past Medical History Ongoing Abdominal pain, RUQ Abnormal ultrasound of gallbladder Acne vulgaris Anxiety BMI 45.0-49.9, adult Epigastric pain GERD (gastroesophageal reflux disease) IBS (irritable bowel syndrome) Insomnia Laryngopharyngeal reflux Mood disorder Scoliosis Historical No qualifying data Procedure/Surgical History Colonoscopy, Correction of hammer toe, Hallux valgus correction by phalanx osteotomy, Left salpingo-oophorectomy, Plantar fasciotomy. Medications Linzess 145 mcg oral capsule, 145 mcg= 1 cap(s), Oral, Daily Mirena 52 mg intrauteral device, 52 mg= 1 EA, IntraUteral, Once ondansetron 4 mg Tab, 4 mg= 1 tab(s), Oral, q6hr Pantoprazole 40 mg (more content not included)... [facility] Comment on above: Result Comment: Elec tronically Signed By: RUTH CLARK, Yonis Cardenas\Date and Time Signed: 09/23/21 21:36 EDT Clinical Note 09-23-2021 Note Date & Type Note Facility 09-23-2021 Note Chief Complaint consultation for epigastric pain HPI Staff 26 year old female presents on consultation from Kate Celaya QUALITY IMPROVEMENT COORDINATOR (RN) for 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 RUQ US completed 09/19 with acute vs chronic cholecystitis. Verbalized chronic epigastric pain with burning sensation and acid reflux. Intermittent vomiting. Omeprazole changed to Pantoprazole at ED visit. History of Present Illness 26 yo female with h/o GERD, referred for epigastric pain; present for several years, worsening over last several weeks; some nausea; intermittent emesis; pain ache, burning at time; some radiation into chest, no dysphagia; worse with certain foods; symptoms usually last several hours; 3 days ago had episode that persisted after eating pizza, seen in ED, improved with GI cocktail; outpatient GB US with thickened, contracted GB with 1.9 cm stone in neck of GB, no ductal dilation; normal labs in ED. on light diet now, still with some ache, no emesis; normal bms; no fevers; PPI changed to Protonix yesterday. Review of Systems PHQ Score Initial Depression Screen Score: 0 ROS - Provider Constitutional: no fever, no sweats, no weight loss. Eyes: no glasses, no blurred vision, no visual loss. ENMT: no dentures, no hoarseness, no swallowing difficulties, no hearing loss, no ear infection(s), no nose bleeds. Cardiovascular: normal blood pressure, no chest pain, regular heartbeat, no heart murmur. Respiratory: no shortness of breath, no cough, no asthma, no wheezing. Gastrointestinal: yes nausea, no vomiting, no diarrhea, no constipation, no blood in stool, no change in bowel habits, yes abdominal pain, no hepatitis. Genitourinary: no kidney stones, no urine infection, no dysuria. Musculoskeletal: no pain, no weakness. Skin: no changing moles, no rash, no skin lumps. Neurologic: no seizures, no epilepsy, no headache. Psychiatric: no emotional or psychiatric problem. Heme/Lymph: no bleeding problems, no anemia, no blood clots, no transfusions. Allergy/Immunologic: no swollen lymph nodes/glands, no IV drug abuse. Other: Additional ROS info: Except as noted in the above Review of Systems and in the History of Present Illness, all other systems have been reviewed and are negative or noncontributory. Physical Exam Vitals & Measurements T: 36.5 ?C (Temporal Artery) HR: 72(Peripheral) RR: 16 BP: 130/86 HT: 172.72 cm HT: 172.7 cm WT: 134.3 kg WT: 134.3 kg BMI: 45.02 HEENT: normal conjunctiva, sclera clear, no scleral icterus, EOM intact, PERRLA, oral mucosa moist without lesions. Neck: trachea midline, no mass, symmetric, no thyromegaly or nodules, no adenopathy Respiratory: lungs CTA, respirations non labored. Cardiovascular: regular rate and rhythm, no murmur, no pedal edema or varicosities. Gastrointestinal: obese, soft, non distended, moderate tenderness, epigastrium and RUQ, no peritoneal signs. no masses, no palpable hernias, diastasis recti yes, no hepatosplenomegaly; normal bs Lymphatic: no cervical adenopathy, no axillary adenopathy, no inguinal adenopathy. Musculoskeletal: normal gait, digits and nails without infection, nodes, cyanosis, clubbing. Skin: no rashes, no lesions, no ulcers, no subcutaneous nodules, induration. Psychiatric/Neuro: oriented to time, place, person, judgement normal, affect appropriate for age, insight intact, no focal deficits. Tests: labs reviewed, x-rays reviewed, review of old records completed, Assessment/Plan 1. Epigastric pain (R10.13: Epigastric pain) continue Protonix, can increase to bid if no improvement in several days 2. Abdominal pain, RUQ (R10.11: Right upper quadrant pain) gall; bladder poorly visualized; not distended, but contracted, more consistent with chronic cholecystitis; check abdominal/pelvic ct scan for further evaluation of gallbladder, will call patient with results; call sooner if problems/questions; or for severe pain, N/V, return to ED. 3. Abnormal ultrasound of gallbladder (R93.2: Abnormal findings on diagnostic imaging of liver and biliary tract) see # 2 Follow-up No qualifying data available Problem List/Past Medical History Ongoing Abdominal pain, RUQ Abnormal ultrasound of gallbladder Acne vulgaris Anxiety BMI 45.0-49.9, adult Epigastric pain GERD (gastroesophageal reflux disease) IBS (irritable bowel syndrome) Insomnia Laryngopharyngeal reflux Mood disorder Scoliosis Historical No qualifying data Procedure/Surgical History Colonoscopy, Correction of hammer toe, Hallux valgus correction by phalanx osteotomy, Left salpingo-oophorectomy, Plantar fasciotomy. Medications Linzess 145 mcg oral capsule, 145 mcg= 1 cap(s), Oral, Daily Mirena 52 mg intrauteral device, 52 mg= 1 EA, IntraUteral, Once ondansetron 4 mg Tab, 4 mg= 1 tab(s), Oral, q6hr Pantoprazole [address] Tab, 40 mg= 1 tab(s), Oral, Daily Zoloft 100 mg Tab, 100 mg= 1 tab(s), Oral, Daily Allergies No Known Allergies No Known Medication Allergies Social History Alcohol - Denies Alcoho (more content not included)... [facility] Comment on above: Result Comment: Elec tronically Signed By: RUTH CLARK, Yonis Mckenzie\gaby\Date and Time Signed: 09/23/21 21:34 EDT Evaluation note Note Date & Type Note Facility Evaluation note Diagnosis Chronic nonintractable headache, unspecified headache type- Primary documented in this encounter [facility] Evaluation note Note Date & Type Note Facility Evaluation note Diagnosis Chronic nonintractable headache, unspecified headache type- Primary documented in this encounter [facility] Evaluation note Note Date & Type Note Facility Evaluation note [facility] Other History general Narrative - Reported Note Date & Type Note Facility History general Narrative - Reported [facility] Other Summary Purpose Family History No Family History Records FoundNo Family History Records FoundNo Family History Records FoundNo Family History Records Found Advance Directives No Advanced Directives Records FoundNo Advanced Directives Records FoundNo Advanced Directives Records FoundNo Advanced Directives Records Found Additional Source Comments INFORMATION SOURCE (unrecogn ized section and content) DATE CREATED AUTHOR 08/31/2019 [facility] DATE CREATED AUTHOR AUTHOR'S ORGANIZ ATION 11/09/2021 [facility] DATE CREATED AUTHOR AUTHOR'S ORGANIZ ATION 03/20/2022 [facility] DATE CREATED AUTHOR AUTHOR'S ORGANIZ ATION 04/18/2023 [facility] Reason for Visit (unrecogniz ed section and content) Reason Comments Optic nerve edema FOR RECORDS PERTAINING TO PATIENTS WHO ARE OR HAVE BEEN ENROLLED IN A CHEMICAL DEPENDENCY/SUBSTANCEABUSE PROGRAM, SOME INFORMATION MAY BE OMITTED. This clinical summary was aggregated from multiple sources. Caution should be exercised in using it in the provision of clinical care. This summary normalizes information from multiple sources, and as a consequence, information in this document may materially change the coding, format and clinical context of patient data. In addition, data may be omitted in some cases. CLINICAL DECISIONS SHOULD BE BASED ON THE PRIMARY CLINICAL RECORDS. [facility] [employer] [facility]. provides no warranty or guarantee of the accuracy or completeness of information in this document.
== END 2023-11-12 07:48 | disposition home or self-care (01) ==
LOC: LAB 07:47
PROVIDERS: PCP Family Medicine; Visit Provider Family Medicine
DX: R89.9 Unspecified abnormal finding in specimens from other organs, systems and tissues (principal); R80.9 Proteinuria, unspecified
CPT/HCPCS: 84156

== ENCOUNTER 2023-11-23 10:02 | Outpatient (RCR) | payer OTHER, SELFPAY | END 2023-11-27 16:48 | disposition home or self-care (01) | LOC: PT 10:02 | PROVIDERS: PCP Family Medicine; Visit Provider Family Medicine | DX: M25.511 Pain in right shoulder (principal); E16.1 Other hypoglycemia | CPT/HCPCS: 97014; 97110 ==

== ENCOUNTER 2023-11-27 07:59 | Outpatient (OUT) | payer OTHER, SELFPAY ==
--- NOTE | 2023-11-27 08:01 | US_ITS ---
The [address] [address] Patient Name: ROSALIE FREEMAN MRN: [id number] date: 1995 Sex: F Assigned Patient Location: [place] Current Patient Location: [place] Accession/Order Number: [id number] Exam Date: 11/27/2023 08:10 Report Date: 11/27/2023 09:00 At the request of: MELODIE ASHTON Procedure: US renal bladder EXAMINATION: US renal bladder HISTORY: proteinuria R80.9 COMPARISON: No relevant comparison available. TECHNIQUE: Ultrasound examination was performed of the bladder. FINDINGS: Right Kidney: Normal in size and contour. The cortex measures 1.5 cm. Subtle area of isoechogenicity mid pole cortex measures 1.7 x 1.8 x 1.1 cm. This could represent a focal lobulation but is indeterminate Height: 5.1 cm Length: 12.4 cm Width: 5.9 cm Left Kidney: Normal in size, contour and echotexture. No solid cortical mass, hydronephrosis or obstructing nephrolithiasis. The cortex measures 1.6 cm. Height: 6.5 cm Length: 13.0 cm Width: 5.5 cm Prevoid urinary bladder 180 cc. Posterior urinary bladder 10 cc Ureteral jets: Visualized bilaterally US/US renal bladder IMPRESSION: 1.8 cm indeterminate lesion right renal midpole cortex. Consider CT exam without and with contrast to evaluate enhancement characteristics Electronically authenticated by: NANDINI MAYER Date: 11/27/2023 09:00
--- OUTSIDE RECORDS SUMMARY | 2023-11-27 08:02 | XMS_ITS | CCD ---
Author Name Unknown Address [address] [facility] [address] [place] [id number] Organization [facility] Care Team Providers Care Web Press Jogger Name Role Phone ANDRESSA ESCALANTE Referring Unavailable [...] Date of Onset Reaction(s) Facility (1 source) [facility]; Translations: [[facility] [place]] Propensity to adverse reactions (disorder) 0 [facility] Repository Medications Current Medications Medication Drug [...] 3 Episodic Other aftercare (1 source) Other skilled nursing (current) drug therapy; Translations: [OTH NURSING HOME CURRENT DRUG THERAPY] Onset: 3 Episodic Other [...] (Bld) [Mass/Vol] 246.0 pg/mL Normal <=450.0 [facility] Comment on above: Performed By: #### I NSULIN #### [facility] [address] [place] [address] Dr. Saray Souza CARDIAC NELI ADMITon 023 CK [Catalytic activity/Vol] 47 U/L Normal 26-192 [facility] Comment on above: Performed By: #### I CURLYULIN #### [facility] [address] [place] [address] Dr. Saray Souza CK.MB [Mass/Vol] 1.02 ng/mL Normal <=3.60 [facility] Comment on above: Performed By: #### I CURLYULIN #### [facility] [address] [place] [address] Dr. Saray Souza HSTROP 4.5 pg/mL Normal 4.0-51.3 [facility] Comment on above: Result Comment: CUT- OFF POINTS HAVE BEEN ESTABLISHED BASED ON THE FOURTH UNIVERSAL DEFINITIONS OF MYOCARDIAL INFARCTION. THE UPPER REFERENCE LIMIT (URL) OF TROPONIN, DEFINED THE 99TH PERCENTILE OF cTnI DISTRIBUTION IN A REFERENCE POPULATION, HAS BEEN CONFIRMED THE DECISION THRESHOLD FOR WI DIAGNOSIS. Performed By: #### I NSULIN #### [facility] [address] [place] [address] Dr. Saray Souza FRANKLIN 36 ng/mL Normal 9-82 [facility] Comment on above: Performed By: #### I CURLYULIN #### [facility] [address] [address] [address] Saray Souza CBC W MANUAL DIFFon 04-17-20 23 ATYPICAL LYMPH # Normal [facility] Comment on above: Performed By: #### C EDGARDO #### [facility] [address] [place] [address] Dr. Saray Souza ATYPICAL LYMPH % Normal [facility] Comment on above: Performed By: #### C BCMAN #### [facility] [address] [place] [address] Dr. Saray Souza BAND # 0.3 103/ul Normal 0.0-0.3 [facility] Comment on above: Performed By: #### C EDGARDO #### [facility] [address] [place] [address] Dr. Saray Souza BAND % 1 % Normal 0-5 [facility] Comment on above: Performed By: #### C BCPRESLEY #### [facility] [address] [place] [address] Dr. Saray Souza BASOM # 0.00 103/ul Normal 0.00-0.10 [facility] Comment on above: Performed By: #### C BCPRESLEY #### [facility] [address] [place] [address] Dr. Saray Souza BASOM % 0.0 % Critically low 0.2-2.0 [facility] Comment on above: Performed By: #### C BCMAN #### [facility] [address] [place] [address] Dr. Saray Souza BLAST # Normal [facility] Comment on above: Performed By: #### C EDGARDO #### [facility] [address] [place] [address] Dr. Saray Souza BLAST % Normal [facility] Comment on above: Performed By: #### C EDGARDO #### [facility] [address] [place] [address] Dr. Saray Souza CORRECTED WBC Normal 4.0-11.0 [facility] Comment on above: Performed By: #### C EDGARDO #### [facility] [address] [place] [address] Dr. Saray Souza EOS # 0.00 103/ul Normal 0.00-0.70 [facility] Comment on above: Performed By: #### C EDGARDO #### [facility] [address] [place] [address] Dr. Saray Souza EOS% 0.0 % Critically low 0.9-7.0 [facility] Comment on above: Performed By: #### C BCPRESLEY #### [facility] [address] [place] [address] Dr. Saray Souza HCT 43.6 % Normal 36.0-48.0 [facility] Comment on above: Performed By: #### C EDGARDO #### [facility] [address] [place] [address] Dr. Saray Souza HGB 14.7 g/dl Normal 12.0-16.0 [facility] Comment on above: Performed By: #### C EDGARDO #### [facility] [address] [address] [address] Saray Souza LYMPHM # 1.55 103/ul Normal 1.20-3.80 [facility] Comment on above: Performed By: #### C EDGARDO #### [facility] [address] [address] [address] Saray Souza LYMPHM% 6.0 % Critically low 20.5-60.0 [facility] Comment on above: Performed By: #### C EDGARDO #### [facility] [address] [address] [address] Saray Souza MCH 30.3 pg Normal 26.7-34.0 [facility] Comment on above: Performed By: #### C EDGARDO #### [facility] [address] [place] [address] Dr. Saray Souza MCHC 33.7 g/dl Normal 29.9-35.2 [facility] Comment on above: Performed By: #### Sweetie REYNOSO #### [facility] [address] [place] [address] Dr. Saray Souza MCV 89.9 fL Normal 81.0-99.0 [facility] Comment on above: Performed By: #### C EDGARDO #### [facility] [address] [place] [address] Dr. Saray Souza METAMYELOCYTE # Normal [facility] Comment on above: Performed By: #### Sweetie REYNOSO #### [facility] [address] [place] [address] Dr. Saray Souza METAMYELOCYTE % Normal [facility] Comment on above: Performed By: #### C EDGARDO #### [facility] [address] [place] [address] Dr. Saary Souza MONOM# 2.06 103/ul Critically high 0.30-0.80 [facility] Comment on above: Performed By: #### Sweetie REYNOSO #### [facility] [address] [place] [address] Dr. Saray Souza MONOM% 8.0 % Normal 1.7-12.0 [facility] Comment on above: Performed By: #### C EDGARDO #### [facility] [address] [place] [address] Dr. Saray Souza MPV 8.8 fL Critically low 9.5-13.5 [facility] Comment on above: Performed By: #### C BCPRESLEY #### [facility] [address] [place] [address] Dr. Saray Souza MYELOCYTE # Normal [facility] Comment on above: Performed By: #### C EDGARDO #### [facility] [address] [place] [address] Dr. Saray Souza MYELOCYTE % Normal [facility] Comment on above: Performed By: #### C EDGARDO #### [facility] [address] [place] [address] Dr. Saray Souza NRBC Normal [facility] Comment on above: Performed By: #### C EDGARDO #### [facility] [address] [place] [address] Dr. Saray Souza PLT 397 103/ul Normal 150-450 [facility] Comment on above: Performed By: #### C EDGARDO #### [facility] [address] [place] [address] Dr. Saray Souza RBC 4.85 106/ul Normal 4.20-5.40 [facility] Comment on above: Performed By: #### C EDGARDO #### [facility] [address] [place] [address] Dr. Saray Souza RDW 12.0 % Normal 11.0-15.0 [facility] Comment on above: Performed By: #### C BCPRESLEY #### [facility] [address] [place] [address] Dr. Saray Souza SEG # 21.93 103/ul Critically high 1.40-6.50 [facility] Comment on above: Performed By: #### C EDGARDO #### [facility] [address] [place] [address] Dr. Saray Souza SEG % 85.0 % Critically high 43.0-75.[address] [facility] Comment on above: Performed By: #### C BCMAN #### [facility] [address] [place] [address] Dr. Saray Souza WBC 25.8 103/ul Critically high 4.0-11.0 [facility] Comment on above: Performed By: #### C BCMAN #### [facility] [address] [place] [address] Dr. Saray Souza CULTURE URINEon 04-17-2023 CULTURE URINE Culture Observations : LORENZO TO FOLLOW. Isolate 1 Enterococcus faecalis 20,000 cfu/mL of Normal [facility] Comment on above: Performed By: #### C BC #### [facility] [address] [place] [address] Dr. Saray Souza ER URINE PROFILEon 3 Bilirubin Ql (U) Negative Normal NEGATIVE [facility] Comment on above: Performed By: #### C BC #### [facility] [address] [place] [address] Dr. Saray Souza Clarity (U) CLEAR Normal CLEAR [facility] Comment on above: Performed By: #### C BC #### [facility] [address] [place] [address] Dr. Saray Souza Color (U) LT. YELLOW Normal YELLOW [facility] Comment on above: Performed By: #### C BC #### [facility] [address] [place] [address] Dr. Saray Souza [facility] A micrscopic examination will be performed if indicated. Normal [facility] Comment on above: Performed By: #### C BC #### [facility] [address] [place] [address] Dr. Saray Souza Glucose Ql (U) Negative Normal NEGATIVE [facility] Comment on above: Performed By: #### C BC #### [facility] [address] [place] [address] Dr. Saray Souza Hemoglobin Ql (U) Negative Normal NEGATIVE [facility] Comment on above: Performed By: #### C BC #### [facility] [address] [place] [address] Dr. Saray Souza Ketones Ql (U) Negative Normal NEGATIVE [facility] Comment on above: Performed By: #### C BC #### [facility] [address] [place] [address] Dr. Saray Souza LEUKOCYTES SMALL Abnormal NEGATIVE [facility] Comment on above: Performed By: #### C BC #### [facility] [address] [place] [address] Dr. Saray Souza Nitrite Ql (U) Negative Normal NEGATIVE [facility] Comment on above: Performed By: #### C BC #### [facility] [address] [place] [address] Dr. Saray Souza pH (U) 6.5 [pH] Normal 5-9 [facility] Comment on above: Performed By: #### C BC #### [facility] [address] [place] [address] Dr. Saray Souza SPEC GRAVITY 1.025 Normal 1.005-<=1.[address] [facility] Comment on above: Performed By: #### C BC #### [facility] [address] [place] [address] Dr. Saray Souza UA PROTEIN Negative Normal NEGATIVE/ TRACE [facility] Comment on above: Performed By: #### C BC #### [facility] [address] [place] [address] Dr. Saray Souza UR MICRO IND INDICATED Normal [facility] Comment on above: Performed By: #### C BC #### [facility] [address] [place] [address] Dr. Saray Souza Urobilinogen Qn (U) 0.2 {Janine'U}/dL Normal 0.2 - 1. 0 [facility] Comment on above: Performed By: #### C BC #### [facility] [address] [place] [address] Dr. Saray Souza URon 04-17-2023 , QUAL Negative Normal NEGATIVE [facility] Comment on above: Performed By: #### C BC #### [facility] [address] [place] [address] Dr. Saray Souza PROF 14(COMP METB)on 023 Albumin [Mass/Vol] 3.0 g/dL Critically low 3.4-5.0 [facility] Comment on above: Performed By: #### I NSULIN #### [facility] [address] [place] [address] Dr. Saray Souza Albumin/Globulin [Mass ratio] 0.9 {ratio} Normal [facility] Comment on above: Performed By: #### I NSULIN #### [facility] [address] [place] [address] Dr. Saray Souza ALP [Catalytic activity/Vol] 54 U/L Normal 46-116 [facility] Comment on above: Performed By: #### I NSULIN #### [facility] [address] [place] [address] Dr. Saray Souza ALT [Catalytic activity/Vol] 27 U/L Normal 14-59 [facility] Comment on above: Performed By: #### I NSULIN #### [facility] [address] [place] [address] Dr. Saray Souza Anion gap [Moles/Vol] 12.9 mmol/L Normal [facility] Comment on above: Performed By: #### I NSULIN #### [facility] [address] [place] [address] Dr. Saray Souza AST [Catalytic activity/Vol] 12 U/L Critically low 15-37 [facility] Comment on above: Performed By: #### I NSULIN #### [facility] [address] [place] [address] Dr. Saray Souza Bilirubin [Mass/Vol] 0.3 mg/dL Normal 0.2-1.0 [facility] Comment on above: Performed By: #### I NSULIN #### [facility] [address] [place] [address] Dr. Saray Souza Calcium [Mass/Vol] 8.1 mg/dL Critically low 8.5-10.1 [facility] Comment on above: Performed By: #### I NSULIN #### [facility] [address] [place] [address] Dr. Saray Souza Chloride [Moles/Vol] 102 mmol/L Normal 98-107 [facility] Comment on above: Performed By: #### I NSULIN #### [facility] [address] [address] [address] Saray Souza CO2 [Moles/Vol] 26.2 mmol/L Normal 21.0-32.0 [facility] Comment on above: Performed By: #### I NSULIN #### [facility] [address] [place] [address] Dr. Saray Souza Creatinine [Mass/Vol] 0.87 mg/dL Normal 0.55-1.02 [facility] Comment on above: Performed By: #### I NSULIN #### [facility] [address] [place] [address] Dr. Saray Souza EGFR-AF BOLIVIAN >60 Normal >=60 [facility] Comment on above: Performed By: #### I NSULIN #### [facility] [address] [place] [address] Dr. Saray Souza EGFR-NON AF BOLIVIAN >60 Normal >=60 [facility] Comment on above: Performed By: #### I NSULIN #### [facility] [address] [place] [address] Dr. Saray Souza Globulin (S) [Mass/Vol] 3.2 g/dL Normal [facility] Comment on above: Performed By: #### I NSULIN #### [facility] [address] [place] [address] Dr. Saray Souza Glucose [Mass/Vol] 206 mg/dL Critically high 74-106 [facility] Comment on above: Performed By: #### I NSULIN #### [facility] [address] [place] [address] Dr. Saray Souza Potassium [Moles/Vol] 4.1 mmol/L Normal 3.5-5.1 [facility] Comment on above: Performed By: #### I NSULIN #### [facility] [address] [place] [address] Dr. Saray Souza Protein [Mass/Vol] 6.2 g/dL Critically low 6.4-8.2 [facility] Comment on above: Performed By: #### I NSULIN #### [facility] [address] [place] [address] Dr. Saray Souza Sodium [Moles/Vol] 137 mmol/L Normal 136-145 [facility] Comment on above: Performed By: #### I NSULIN #### [facility] [address] [place] [address] Dr. Saray Souza Urea nitrogen [Mass/Vol] 19.0 mg/dL Critically high 7.0-18.0 [facility] Comment on above: Performed By: #### I NSULIN #### [facility] [address] [place] [address] Dr. Saray Souza Urea nitrogen/Creatinine [Mass ratio] 21.8 mg/mg Normal [facility] Comment on above: Performed By: #### I NSULIN #### [facility] [address] [place] [address] Dr. Saray Souza TSHon 04-17-2023 TSH 0.553 uIU/mL Normal 0.358-3.740 [facility] Comment on above: Performed By: #### I NSULIN #### [facility] [address] [place] [address] Dr. Saray Souza URINE MICROSCOPIC ONLYon BACTERIA TRACE Abnormal NONE SEEN [facility] Comment on above: Performed By: #### C BC #### [facility] [address] [place] [address] Dr. Saray Souza Bacteria identified Cx Nom (U) INDICATED Normal [facility] Comment on above: Performed By: #### C BC #### [facility] [address] [place] [address] Dr. Saray Souza CAST NONE SEEN Normal NONE SEEN [facility] Comment on above: Performed By: #### C BC #### [facility] [address] [place] [address] Dr. Saray Souza Crystals LM Nom (Urine sed) NONE SEEN Normal NONE SEEN [facility] Comment on above: Performed By: #### C BC #### [facility] [address] [address] [address] Saray Souza Epithelial cells LM Ql (Urine sed) RARE Normal NONE SEEN /RARE [facility] Comment on above: Performed By: #### C BC #### [facility] [address] [place] [address] Dr. Saray Souza MUCOUS NONE SEEN Normal NONE SEEN [facility] Comment on above: Performed By: #### C BC #### [facility] [address] [address] [address] Saray Souza RBC 0-2 Normal 0-2 [facility] Comment on above: Performed By: #### C BC #### [facility] [address] [place] [address] Dr. Saray Souza WBC 5-10 Abnormal NONE SEEN [facility] Comment on above: Performed By: #### C BC #### [facility] [address] [place] [address] Dr. Saray Souza XR CHEST 2 Von [...] CAROL RAMIREZ Date: 2023-04-17 10:45 Normal [facility] INSULINon 04-07-2023 Insulin 11.3 uIU/mL Normal 2.6-24.9 [facility] Comment on above: Performed By: #### I NSULIN #### [facility] [address] [place] [address] Dr. Saray Souza US KIDNEYS BLADDERon 023 [...] NANDINI MAYER Date: 2023-04-04 08:22 Normal [facility] INSULINon 04-02-2023 Insulin 37.5 uIU/mL Critically high 2.6-24.9 [facility] Comment on above: Performed By: #### I NSULIN #### [facility] [address] [place] [address] Dr. Saray Souza CBC AUTO DIFFon 04-01-2023 BASO # 0.0 103/ul Normal 0.0-0.1 [facility] Comment on above: Performed By: #### C BC #### [facility] [address] [place] [address] Dr. Saray Souza Basophils/100 WBC (Bld) 0.5 % Normal 0.2-2.0 [facility] Comment on above: Performed By: #### C BC #### [facility] [address] [place] [address] Dr. Saray Souza EO # 0.2 103/ul Normal 0.0-0.7 [facility] Comment on above: Performed By: #### C BC #### [facility] [address] [place] [address] Dr. Saray Souza Eosinophils/100 WBC (Bld) 2.3 % Normal 0.9-7.0 [facility] Comment on above: Performed By: #### C BC #### [facility] [address] [place] [address] Dr. Saray Souza Erythrocyte distribution width (RBC) [Ratio] 11.9 % Normal 11.0-15.0 [facility] Comment on above: Performed By: #### C BC #### [facility] [address] [place] [address] Dr. Saray Souza Hematocrit (Bld) [Volume fraction] 42.2 % Normal 36.0-48.0 [facility] Comment on above: Performed By: #### C BC #### [facility] [address] [place] [address] Dr. Saray Souza Hemoglobin (Bld) [Mass/Vol] 13.7 g/dL Normal 12.0-16.0 [facility] Comment on above: Performed By: #### C BC #### [facility] [address] [place] [address] Dr. Saray Souza IG # 0.02 10e3/ul Normal 0.00-0.03 [facility] Comment on above: Performed By: #### C BC #### [facility] [address] [place] [address] Dr. Saray Souza IG % 0.3 % Normal 0.0-0.5 [facility] Comment on above: Performed By: #### C BC #### [facility] [address] [place] [address] Dr. Saray Souza LYMPH # 1.6 103/ul Normal 1.2-3.8 [facility] Comment on above: Performed By: #### C BC #### [facility] [address] [place] [address] Dr. Saray Souza Lymphocytes/100 WBC (Bld) 21.5 % Normal 20.5-60.0 [facility] Comment on above: Performed By: #### C BC #### [facility] [address] [place] [address] Dr. Saray Souza MANUAL DIFF REQ NO Normal [facility] Comment on above: Performed By: #### C BC #### [facility] [address] [place] [address] Dr. Saray Souza MCH (RBC) [Entitic mass] 30.0 pg Normal 26.7-34.0 [facility] Comment on above: Performed By: #### C BC #### [facility] [address] [address] [address] Saray Souza MCHC (RBC) [Mass/Vol] 32.5 g/dL Normal 29.9-35.2 [facility] Comment on above: Performed By: #### C BC #### [facility] [address] [place] [address] Dr. Saray Souza MCV (RBC) [Entitic vol] 92.5 fL Normal 81.0-99.0 [facility] Comment on above: Performed By: #### C BC #### [facility] [address] [place] [address] Dr. Saray Souza MONO # 0.7 103/ul Normal 0.3-0.8 [facility] Comment on above: Performed By: #### C BC #### [facility] [address] [place] [address] Dr. Saray Souza Monocytes/100 WBC (Bld) 9.6 % Normal 1.7-12.0 [facility] Comment on above: Performed By: #### C BC #### [facility] [address] [place] [address] Dr. Saray Souza NEUT # 5.0 103/ul Normal 1.4-6.5 [facility] Comment on above: Performed By: #### C BC #### [facility] [address] [place] [address] Dr. Saray Souza Neutrophils/100 WBC (Bld) 65.8 % Normal 43.0-75.0 [facility] Comment on above: Performed By: #### C BC #### [facility] [address] [place] [address] Dr. Saray Souza Platelet mean volume (Bld) [Entitic vol] 8.9 fL Critically low 9.5-13.5 [facility] Comment on above: Performed By: #### C BC #### [facility] [address] [place] [address] Dr. Saray Souza PLT 293 103/ul Normal 150-450 [facility] Comment on above: Performed By: #### C BC #### [facility] [address] [place] [address] Dr. Saray Souza RBC 4.56 106/ul Normal 4.20-5.40 [facility] Comment on above: Performed By: #### C BC #### [facility] [address] [place] [address] Dr. Saray Souza WBC 7.5 103/ul Normal 4.0-11.0 [facility] Comment on above: Performed By: #### C BC #### [facility] [address] [place] [address] Dr. Saray Souza CULTURE URINEon 04-01-2023 CULTURE URINE Culture Observations : MODERATE GROWTH OF MIXED GENITAL CARMELO. NO POTENTIAL PATHOGENS SEEN. Normal [facility] Comment on above: Performed By: #### C BC #### [facility] [address] [place] [address] Dr. Saray Souza FREE THYROXINE INDEX T7on FTI 2.51 Normal 1.30-4.50 [facility] Comment on above: Performed By: #### I NSULIN #### [facility] [address] [place] [address] Dr. Saray Souza T3U 33.0 % Normal 30.0-39.0 [facility] Comment on above: Performed By: #### I NSULIN #### [facility] [address] [place] [address] Dr. Saray Souza T4 [Mass/Vol] 7.60 ug/dL Normal 4.80-13.90 [facility] Comment on above: Performed By: #### I NSULIN #### [facility] [address] [place] [address] Dr. Saray Souza IRONon 04-01-2023 Iron [Mass/Vol] 151.0 ug/dL Normal 50.0-170.0 [facility] Comment on above: Performed By: #### C BCMAN #### [facility] [address] [place] [address] Dr. Saray Souza PROF 14(COMP METB)on 023 Albumin [Mass/Vol] 3.7 g/dL Normal 3.4-5.0 [facility] Comment on above: Performed By: #### C EDGARDO #### [facility] [address] [place] [address] Dr. Saray Souza Albumin/Globulin [Mass ratio] 1.1 {ratio} Normal [facility] Comment on above: Performed By: #### C BCPRESLEY #### [facility] [address] [address] [address] Saray Souza ALP [Catalytic activity/Vol] 81 U/L Normal 46-116 [facility] Comment on above: Performed By: #### C BCPRESLEY #### [facility] [address] [place] [address] Dr. Saray Souza ALT [Catalytic activity/Vol] 33 U/L Normal 14-59 [facility] Comment on above: Performed By: #### C EDGARDO #### [facility] [address] [place] [address] Dr. Saray Souza Anion gap [Moles/Vol] 10.2 mmol/L Normal [facility] Comment on above: Performed By: #### C BCPRESLEY #### [facility] [address] [place] [address] Dr. Saray Souza AST [Catalytic activity/Vol] 22 U/L Normal 15-37 [facility] Comment on above: Performed By: #### C EDGARDO #### [facility] [address] [place] [address] Dr. Saray Souza Bilirubin [Mass/Vol] 0.3 mg/dL Normal 0.2-1.0 [facility] Comment on above: Performed By: #### C BCPRESLEY #### [facility] [address] [address] [address] Saray Souza Calcium [Mass/Vol] 8.6 mg/dL Normal 8.5-10.1 [facility] Comment on above: Performed By: #### C EDGARDO #### [facility] [address] [place] [address] Dr. Saray Souza Chloride [Moles/Vol] 105 mmol/L Normal 98-107 [facility] Comment on above: Performed By: #### C BCMAN #### [facility] [address] [address] [address] Saray Souza CO2 [Moles/Vol] 30.4 mmol/L Normal 21.0-32.0 [facility] Comment on above: Performed By: #### C BCMAN #### [facility] [address] [address] [address] Saray Souza Creatinine [Mass/Vol] 0.72 mg/dL Normal 0.55-1.02 [facility] Comment on above: Performed By: #### C BCMAN #### [facility] [address] [address] [address] Saray Souza EGFR-AF BOLIVIAN >60 Normal >=60 [facility] Comment on above: Performed By: #### C BCPRESLEY #### [facility] [address] [address] [address] Saray Souza EGFR-NON AF BOLIVIAN >60 Normal >=60 [facility] Comment on above: Performed By: #### C BCMAN #### [facility] [address] [address] [address] Saray Souza Globulin (S) [Mass/Vol] 3.5 g/dL Normal [facility] Comment on above: Performed By: #### C BCMAN #### [facility] [address] [address] [address] Saray Souza Glucose [Mass/Vol] 89 mg/dL Normal 74-106 [facility] Comment on above: Performed By: #### C BCMAN #### [facility] [address] [address] [address] Saray Souza Potassium [Moles/Vol] 3.6 mmol/L Normal 3.5-5.1 [facility] Comment on above: Performed By: #### C BCMAN #### [facility] [address] [address] [address] Saray Souza Protein [Mass/Vol] 7.2 g/dL Normal 6.4-8.2 [facility] Comment on above: Performed By: #### C BCMAN #### [facility] [address] [place] [address] Dr. Saray Souza Sodium [Moles/Vol] 142 mmol/L Normal 136-145 [facility] Comment on above: Performed By: #### C EDGARDO #### [facility] [address] [place] [address] Dr. Saray Souza Urea nitrogen [Mass/Vol] 12.0 mg/dL Normal 7.0-18.0 [facility] Comment on above: Performed By: #### C EDGARDO #### [facility] [address] [place] [address] Dr. Saray Souza Urea nitrogen/Creatinine [Mass ratio] 16.7 mg/mg Normal [facility] Comment on above: Performed By: #### C EDGARDO #### [facility] [address] [place] [address] Dr. Saray Souza TSHon 04-01-2023 TSH 1.708 uIU/mL Normal 0.358-3.740 [facility] Comment on above: Performed By: #### I NSULIN #### [facility] [address] [place] [address] Dr. Saray Souza UA RANDOM W/MICROSCOPICon BACTERIA SMALL Abnormal NONE SEEN [facility] Comment on above: Performed By: #### I NSULIN #### [facility] [address] [place] [address] Dr. Saray Souza Bilirubin Ql (U) Negative Normal NEGATIVE [facility] Comment on above: Performed By: #### I NSULIN #### [facility] [address] [place] [address] Dr. Saray Souza CAST NONE SEEN Normal NONE SEEN [facility] Comment on above: Performed By: #### I NSULIN #### [facility] [address] [place] [address] Dr. Saray Souza Clarity (U) CLEAR Normal CLEAR [facility] Comment on above: Performed By: #### I NSULIN #### [facility] [address] [place] [address] Dr. Saray Souza Color (U) YELLOW Normal YELLOW [facility] Comment on above: Performed By: #### I NSULIN #### [facility] [address] [address] [address] Saray Souza Crystals LM Nom (Urine sed) NONE SEEN Normal NONE SEEN [facility] Comment on above: Performed By: #### I NSULIN #### [facility] [address] [place] [address] Dr. Saray Souza Epithelial cells LM Ql (Urine sed) FEW Abnormal NONE SEEN /RARE [facility] Comment on above: Performed By: #### I NSULIN #### [facility] [address] [address] [address] Saray Souza Glucose Ql (U) Negative Normal NEGATIVE [facility] Comment on above: Performed By: #### I NSULIN #### [facility] [address] [place] [address] Dr. Saray Souza Hemoglobin Ql (U) Negative Normal NEGATIVE [facility] Comment on above: Performed By: #### I NSULIN #### [facility] [address] [place] [address] Dr. Saray Souza Ketones Ql (U) TRACE Abnormal NEGATIVE [facility] Comment on above: Performed By: #### I NSULIN #### [facility] [address] [place] [address] Dr. Saray Souza LEUKOCYTES SMALL Abnormal NEGATIVE [facility] Comment on above: Performed By: #### I NSULIN #### [facility] [address] [address] [address] Saray Souza MUCOUS NONE SEEN Normal NONE SEEN [facility] Comment on above: Performed By: #### I NSULIN #### [facility] [address] [address] [address] Saray Souza Nitrite Ql (U) Negative Normal NEGATIVE [facility] Comment on above: Performed By: #### I NSULIN #### [facility] [address] [place] [address] Dr. Saray Souza pH (U) 5.5 [pH] Normal 5-9 [facility] Comment on above: Performed By: #### I NSULIN #### [facility] [address] [place] [address] Dr. Saray Souza RBC 0-2 Normal 0-2 [facility] Comment on above: Performed By: #### I NSULIN #### [facility] [address] [place] [address] Dr. Saray Souza SPEC GRAVITY >=1.030 Abnormal 1.005-<=1.025 [facility] Comment on above: Performed By: #### I NSULIN #### [facility] [address] [place] [address] Dr. Saray Souza UA PROTEIN Negative Normal NEGATIVE/ TRACE [facility] Comment on above: Performed By: #### I NSULIN #### [facility] [address] [place] [address] Dr. Saray Souza Urobilinogen Qn (U) 0.2 {Janine'U}/dL Normal 0.2 - 1. 0 [facility] Comment on above: Performed By: #### I NSULIN #### [facility] [address] [place] [address] Dr. Saray Souza WBC 5-10 Abnormal NONE SEEN [facility] Comment on above: Performed By: #### I NSULIN #### [facility] [address] [place] [address] Dr. Saray Souza INSULINon 02-14-2023 Insulin 12.8 uIU/mL Normal 2.6-24.9 [facility] Comment on above: Performed By: #### C BC #### [facility] [address] [place] [address] Dr. Saray Souza CBC AUTO DIFFon 02-13-2023 BASO # 0.0 103/ul Normal 0.0-0.1 [facility] Comment on above: Performed By: #### C BC #### [facility] [address] [place] [address] Dr. Saray Souza Basophils/100 WBC (Bld) 0.4 % Normal 0.2-2.0 [facility] Comment on above: Performed By: #### C BC #### [facility] [address] [place] [address] Dr. Saray Souza EO # 0.1 103/ul Normal 0.0-0.7 [facility] Comment on above: Performed By: #### C BC #### [facility] [address] [place] [address] Dr. Saray Souza Eosinophils/100 WBC (Bld) 1.6 % Normal 0.9-7.0 [facility] Comment on above: Performed By: #### C BC #### [facility] [address] [place] [address] Dr. Saray Souza Erythrocyte distribution width (RBC) [Ratio] 11.9 % Normal 11.0-15.0 [facility] Comment on above: Performed By: #### C BC #### [facility] [address] [place] [address] Dr. Saray Souza Hematocrit (Bld) [Volume fraction] 41.9 % Normal 36.0-48.0 [facility] Comment on above: Performed By: #### C BC #### [facility] [address] [place] [address] Dr. Saray Souza Hemoglobin (Bld) [Mass/Vol] 13.7 g/dL Normal 12.0-16.0 [facility] Comment on above: Performed By: #### C BC #### [facility] [address] [place] [address] Dr. Saray Souza IG # 0.02 10e3/ul Normal 0.00-0.03 [facility] Comment on above: Performed By: #### C BC #### [facility] [address] [place] [address] Dr. Saray Souza IG % 0.3 % Normal 0.0-0.5 [facility] Comment on above: Performed By: #### C BC #### [facility] [address] [place] [address] Dr. Saray Souza LYMPH # 1.4 103/ul Normal 1.2-3.8 [facility] Comment on above: Performed By: #### C BC #### [facility] [address] [place] [address] Dr. Saray Souza Lymphocytes/100 WBC (Bld) 18.6 % Critically low 20.5-60.0 [facility] Comment on above: Performed By: #### C BC #### [facility] [address] [place] [address] Dr. Saray Souza MANUAL DIFF REQ NO Normal [facility] Comment on above: Performed By: #### C BC #### [facility] [address] [place] [address] Dr. Saray Souza MCH (RBC) [Entitic mass] 29.9 pg Normal 26.7-34.0 [facility] Comment on above: Performed By: #### C BC #### [facility] [address] [place] [address] Dr. Saray Souza MCHC (RBC) [Mass/Vol] 32.7 g/dL Normal 29.9-35.2 [facility] Comment on above: Performed By: #### C BC #### [facility] [address] [place] [address] Dr. Saray Souza MCV (RBC) [Entitic vol] 91.5 fL Normal 81.0-99.0 [facility] Comment on above: Performed By: #### C BC #### [facility] [address] [place] [address] Dr. Saray Souza MONO # 0.6 103/ul Normal 0.3-0.8 [facility] Comment on above: Performed By: #### C BC #### [facility] [address] [place] [address] Dr. Saray Souza Monocytes/100 WBC (Bld) 8.3 % Normal 1.7-12.0 [facility] Comment on above: Performed By: #### C BC #### [facility] [address] [place] [address] Dr. Saray Souza NEUT # 5.5 103/ul Normal 1.4-6.5 [facility] Comment on above: Performed By: #### C BC #### [facility] [address] [place] [address] Dr. Saray Souza Neutrophils/100 WBC (Bld) 70.8 % Normal 43.0-75.0 [facility] Comment on above: Performed By: #### C BC #### [facility] [address] [place] [address] Dr. Saray Souza Platelet mean volume (Bld) [Entitic vol] 9.0 fL Critically low 9.5-13.5 [facility] Comment on above: Performed By: #### C BC #### [facility] [address] [place] [address] Dr. Saray Souza PLT 271 103/ul Normal 150-450 [facility] Comment on above: Performed By: #### C BC #### [facility] [address] [place] [address] Dr. Saray Souza RBC 4.58 106/ul Normal 4.20-5.40 [facility] Comment on above: Performed By: #### C BC #### [facility] [address] [place] [address] Dr. Saray Souza WBC 7.7 103/ul Normal 4.0-11.0 [facility] Comment on above: Performed By: #### C BC #### [facility] [address] [place] [address] Dr. Saray Souza FREE THYROXINE INDEX T7on FTI 2.56 Normal 1.30-4.50 [facility] Comment on above: Performed By: #### I NSULIN #### [facility] [address] [place] [address] Dr. Saray Souza T3U 36.0 % Normal 30.0-39.0 [facility] Comment on above: Performed By: #### I NSULIN #### [facility] [address] [place] [address] Dr. Saray Souza T4 [Mass/Vol] 7.10 ug/dL Normal 4.80-13.90 [facility] Comment on above: Performed By: #### I NSULIN #### [facility] [address] [place] [address] Dr. Saray Souza IRONon 03-24-2023 Iron [Mass/Vol] 130.0 ug/dL Normal 50.0-170.0 [facility] Comment on above: Performed By: #### C EDGARDO #### [facility] [address] [place] [address] Dr. Saray Souza PROF 14(COMP METB)on 023 Albumin [Mass/Vol] 3.8 g/dL Normal 3.4-5.0 [facility] Comment on above: Performed By: #### I NSULIN #### [facility] [address] [place] [address] Dr. Saray Souza Albumin/Globulin [Mass ratio] 1.2 {ratio} Normal [facility] Comment on above: Performed By: #### I NSULIN #### [facility] [address] [place] [address] Dr. Saray Souza ALP [Catalytic activity/Vol] 82 U/L Normal 46-116 [facility] Comment on above: Performed By: #### I NSULIN #### [facility] [address] [place] [address] Dr. Saray Souza ALT [Catalytic activity/Vol] 25 U/L Normal 14-59 [facility] Comment on above: Performed By: #### I NSULIN #### [facility] [address] [place] [address] Dr. Saray Souza Anion gap [Moles/Vol] 12.7 mmol/L Normal [facility] Comment on above: Performed By: #### I NSULIN #### [facility] [address] [place] [address] Dr. Saray Souza AST [Catalytic activity/Vol] 19 U/L Normal 15-37 [facility] Comment on above: Performed By: #### I NSULIN #### [facility] [address] [place] [address] Dr. Saray Souza Bilirubin [Mass/Vol] 0.3 mg/dL Normal 0.2-1.0 [facility] Comment on above: Performed By: #### I NSULIN #### [facility] [address] [place] [address] Dr. Saray Souza Calcium [Mass/Vol] 8.8 mg/dL Normal 8.5-10.1 [facility] Comment on above: Performed By: #### I NSULIN #### [facility] [address] [address] [address] Saray Souza Chloride [Moles/Vol] 101 mmol/L Normal 98-107 [facility] Comment on above: Performed By: #### I NSULIN #### [facility] [address] [address] [address] Saray Souza CO2 [Moles/Vol] 27.3 mmol/L Normal 21.0-32.0 [facility] Comment on above: Performed By: #### I NSULIN #### [facility] [address] [place] [address] Dr. Saray Souza Creatinine [Mass/Vol] 0.69 mg/dL Normal 0.55-1.02 [facility] Comment on above: Performed By: #### I NSULIN #### [facility] [address] [address] [address] Saray Souza EGFR-AF BOLIVIAN >60 Normal >=60 [facility] Comment on above: Performed By: #### I NSULIN #### [facility] [address] [place] [address] Dr. Saray Souza EGFR-NON AF BOLIVIAN >60 Normal >=60 [facility] Comment on above: Performed By: #### I NSULIN #### [facility] [address] [place] [address] Dr. Saray Souza Globulin (S) [Mass/Vol] 3.3 g/dL Normal [facility] Comment on above: Performed By: #### I NSULIN #### [facility] [address] [address] [address] Saray Souza Glucose [Mass/Vol] 83 mg/dL Normal 74-106 [facility] Comment on above: Performed By: #### I NSULIN #### [facility] [address] [place] [address] Dr. Saray Souza Potassium [Moles/Vol] 4.0 mmol/L Normal 3.5-5.1 [facility] Comment on above: Performed By: #### I NSULIN #### [facility] [address] [address] [address] Saray Souza Protein [Mass/Vol] 7.1 g/dL Normal 6.4-8.2 [facility] Comment on above: Performed By: #### I NSULIN #### [facility] [address] [address] [address] Saray Souza Sodium [Moles/Vol] 137 mmol/L Normal 136-145 [facility] Comment on above: Performed By: #### I NSULIN #### [facility] [address] [place] [address] Dr. Saray Souza Urea nitrogen [Mass/Vol] 10.0 mg/dL Normal 7.0-18.0 [facility] Comment on above: Performed By: #### I NSULIN #### [facility] [address] [place] [address] Dr. Saray Souza Urea nitrogen/Creatinine [Mass ratio] 14.5 mg/mg Normal [facility] Comment on above: Performed By: #### I NSULIN #### [facility] [address] [place] [address] Dr. Saray Souza TSHon 02-13-2023 TSH 2.745 uIU/mL Normal 0.358-3.740 [facility] Comment on above: Performed By: #### I NSULIN #### [facility] [address] [place] [address] Dr. Saray Souza AMYLASEon 02-04-2023 Amylase [Catalytic activity/Vol] 45 U/L Normal 25-115 [facility] Comment on above: Performed By: #### T SH, CMP, HSTROPN, LIPA, LINDA #### [facility] [address] [place] [address] Dr. Saray Souza CBC AUTO DIFFon 02-04-2023 BASO # 0.0 103/ul Normal 0.0-0.1 [facility] Comment on above: Performed By: #### C BC #### [facility] [address] [place] [address] Dr. Saray Souza Basophils/100 WBC (Bld) 0.4 % Normal 0.2-2.0 [facility] Comment on above: Performed By: #### C BC #### [facility] [address] [place] [address] Dr. Saray Souza EO # 0.1 103/ul Normal 0.0-0.7 [facility] Comment on above: Performed By: #### C BC #### [facility] [address] [place] [address] Dr. Saray Souza Eosinophils/100 WBC (Bld) 1.7 % Normal 0.9-7.0 [facility] Comment on above: Performed By: #### C BC #### [facility] [address] [place] [address] Dr. Saray Souza Erythrocyte distribution width (RBC) [Ratio] 12.0 % Normal 11.0-15.0 [facility] Comment on above: Performed By: #### C BC #### [facility] [address] [place] [address] Dr. Saray Souza Hematocrit (Bld) [Volume fraction] 42.3 % Normal 36.0-48.0 [facility] Comment on above: Performed By: #### C BC #### [facility] [address] [place] [address] Dr. Saray Souza Hemoglobin (Bld) [Mass/Vol] 13.9 g/dL Normal 12.0-16.0 [facility] Comment on above: Performed By: #### C BC #### [facility] [address] [place] [address] Dr. Saray Souza IG # 0.03 10e3/ul Normal 0.00-0.03 [facility] Comment on above: Performed By: #### C BC #### [facility] [address] [place] [address] Dr. Saray Souza IG % 0.4 % Normal 0.0-0.5 [facility] Comment on above: Performed By: #### C BC #### [facility] [address] [place] [address] Dr. Saray Souza LYMPH # 1.5 103/ul Normal 1.2-3.8 [facility] Comment on above: Performed By: #### C BC #### [facility] [address] [place] [address] Dr. Saray Souza Lymphocytes/100 WBC (Bld) 20.4 % Critically low 20.5-60.0 [facility] Comment on above: Performed By: #### C BC #### [facility] [address] [place] [address] Dr. Saray Souza MANUAL DIFF REQ NO Normal [facility] Comment on above: Performed By: #### C BC #### [facility] [address] [place] [address] Dr. Saray Souza MCH (RBC) [Entitic mass] 30.0 pg Normal 26.7-34.0 [facility] Comment on above: Performed By: #### C BC #### [facility] [address] [place] [address] Dr. Saray Souza MCHC (RBC) [Mass/Vol] 32.9 g/dL Normal 29.9-35.2 [facility] Comment on above: Performed By: #### C BC #### [facility] [address] [place] [address] Dr. Saray Souza MCV (RBC) [Entitic vol] 91.2 fL Normal 81.0-99.0 [facility] Comment on above: Performed By: #### C BC #### [facility] [address] [place] [address] Dr. Saray Souza MONO # 0.6 103/ul Normal 0.3-0.8 [facility] Comment on above: Performed By: #### C BC #### [facility] [address] [place] [address] Dr. Saray Souza Monocytes/100 WBC (Bld) 7.7 % Normal 1.7-12.0 [facility] Comment on above: Performed By: #### C BC #### [facility] [address] [place] [address] Dr. Saray Souza NEUT # 5.2 103/ul Normal 1.4-6.5 [facility] Comment on above: Performed By: #### C BC #### [facility] [address] [place] [address] Dr. Saray Souza Neutrophils/100 WBC (Bld) 69.4 % Normal 43.0-75.0 [facility] Comment on above: Performed By: #### C BC #### [facility] [address] [place] [address] Dr. Saray Souza Platelet mean volume (Bld) [Entitic vol] 9.0 fL Critically low 9.5-13.5 [facility] Comment on above: Performed By: #### C BC #### [facility] [address] [place] [address] Dr. Saray Souza PLT 292 103/ul Normal 150-450 [facility] Comment on above: Performed By: #### C BC #### [facility] [address] [place] [address] Dr. Saray Souza RBC 4.64 106/ul Normal 4.20-5.40 [facility] Comment on above: Performed By: #### C BC #### [facility] [address] [place] [address] Dr. Saray oSuza WBC 7.5 103/ul Normal 4.0-11.0 [facility] Comment on above: Performed By: #### C BC #### [facility] [address] [place] [address] Dr. Saray Souza CULTURE URINEon 02-04-2023 CULTURE URINE Culture Observations : LIGHT GROWTH OF MIXED GENITAL CARMELO. NO POTENTIAL PATHOGENS SEEN. Normal [facility] Comment on above: Performed By: #### C BC #### [facility] [address] [place] [address] Dr. Saray Souza ER URINE PROFILEon 3 Bilirubin Ql (U) Negative Normal NEGATIVE [facility] Comment on above: Performed By: #### C BC #### [facility] [address] [place] [address] Dr. Saray Souza Clarity (U) CLEAR Normal CLEAR [facility] Comment on above: Performed By: #### C BC #### [facility] [address] [address] [address] Saray Souza Color (U) LT. YELLOW Normal YELLOW [facility] Comment on above: Performed By: #### C BC #### [facility] [address] [address] [address] Saray Souza ERUAHD A micrscopic examination will be performed if indicated. Normal [facility] Comment on above: Performed By: #### C BC #### [facility] [address] [address] [address] Saray Souza Glucose Ql (U) Negative Normal NEGATIVE [facility] Comment on above: Performed By: #### C BC #### [facility] [address] [place] [address] Dr. Saray Souza Hemoglobin Ql (U) Negative Normal NEGATIVE [facility] Comment on above: Performed By: #### C BC #### [facility] [address] [place] [address] Dr. Saray Souza Ketones Ql (U) Negative Normal NEGATIVE [facility] Comment on above: Performed By: #### C BC #### [facility] [address] [place] [address] Dr. Saray Souza LEUKOCYTES MODERATE Abnormal NEGATIVE [facility] Comment on above: Performed By: #### C BC #### [facility] [address] [place] [address] Dr. Saray Souza Nitrite Ql (U) Negative Normal NEGATIVE [facility] Comment on above: Performed By: #### C BC #### [facility] [address] [place] [address] Dr. Saray Souza pH (U) 5.5 [pH] Normal 5-9 [facility] Comment on above: Performed By: #### C BC #### [facility] [address] [place] [address] Dr. Saray Souza SPEC GRAVITY >=1.030 Abnormal 1.005-<=1.[address] [facility] Comment on above: Performed By: #### C BC #### [facility] [address] [place] [address] Dr. Saray Souza UA PROTEIN Negative Normal NEGATIVE/ TRACE [facility] Comment on above: Performed By: #### C BC #### [facility] [address] [place] [address] Dr. Saray Souza UR MICRO IND INDICATED Normal [facility] Comment on above: Performed By: #### C BC #### [facility] [address] [place] [address] Dr. Saray Souza Urobilinogen Qn (U) 0.2 {Janine'U}/dL Normal 0.2 - 1. 0 [facility] Comment on above: Performed By: #### C BC #### [facility] [address] [place] [address] Dr. Saray Souza LIPASEon 02-04-2023 Lipase [Catalytic activity/Vol] 97.0 U/L Normal 73.0-393.0 [facility] Comment on above: Performed By: #### T SH, CMP, HSTROPN, LIPA, LINDA #### [facility] [address] [place] [address] Dr. Saray Souza URon 02-04-2023 , QUAL Negative Normal NEGATIVE [facility] [place] Comment on above: Performed By: #### C BC #### [facility] [address] [place] [address] Dr. Saray Souza PROF 14(COMP METB)on 023 Albumin [Mass/Vol] 3.5 g/dL Normal 3.4-5.0 [facility] Comment on above: Performed By: #### T SH, CMP, HSTROPN, LIPA, LINDA #### [facility] [address] [place] [address] Dr. Saray Souza Albumin/Globulin [Mass ratio] 1.2 {ratio} Normal [facility] Comment on above: Performed By: #### T SH, CMP, HSTROPN, LIPA, LINDA #### [facility] [address] [place] [address] Dr. Saray Souza ALP [Catalytic activity/Vol] 78 U/L Normal 46-116 [facility] Comment on above: Performed By: #### T SH, CMP, HSTROPN, LIPA, LINDA #### [facility] [address] [place] [address] Dr. Saray Souza ALT [Catalytic activity/Vol] 24 U/L Normal 14-59 [facility] Comment on above: Performed By: #### T SH, CMP, HSTROPN, LIPA, LINDA #### [facility] [address] [place] [address] Dr. Saray Souza Anion gap [Moles/Vol] 7.9 mmol/L Normal [facility] Comment on above: Performed By: #### T SH, CMP, HSTROPN, LIPA, LINDA #### [facility] [address] [place] [address] Dr. Saray Souza AST [Catalytic activity/Vol] 16 U/L Normal 15-37 [facility] Comment on above: Performed By: #### T SH, CMP, HSTROPN, LIPA, LINDA #### [facility] [address] [place] [address] Dr. Saray Souza Bilirubin [Mass/Vol] 0.3 mg/dL Normal 0.2-1.0 [facility] Comment on above: Performed By: #### T SH, CMP, HSTROPN, LIPA, LINDA #### [facility] [address] [place] [address] Dr. Saray Souza Calcium [Mass/Vol] 8.6 mg/dL Normal 8.5-10.1 [facility] Comment on above: Performed By: #### T SH, CMP, HSTROPN, LIPA, LINDA #### [facility] [address] [place] [address] Dr. Saray Souza Chloride [Moles/Vol] 105 mmol/L Normal 98-107 [facility] Comment on above: Performed By: #### T SH, CMP, HSTROPN, LIPA, LINDA #### [facility] [address] [place] [address] Dr. Saray Souza CO2 [Moles/Vol] 28.9 mmol/L Normal 21.0-32.0 [facility] Comment on above: Performed By: #### T SH, CMP, HSTROPN, LIPA, LINDA #### [facility] [address] [address] [address] Saray Souza Creatinine [Mass/Vol] 0.67 mg/dL Normal 0.55-1.02 [facility] Comment on above: Performed By: #### T SH, CMP, HSTROPN, LIPA, LINDA #### [facility] [address] [place] [address] Dr. Saray Souza EGFR-AF BOLIVIAN >60 Normal >=60 [facility] Comment on above: Performed By: #### T SH, CMP, HSTROPN, LIPA, LINDA #### [facility] [address] [place] [address] Dr. Saray Souza EGFR-NON AF BOLIVIAN >60 Normal >=60 [facility] Comment on above: Performed By: #### T SH, CMP, HSTROPN, LIPA, LINDA #### [facility] [address] [place] [address] Dr. Saray Souza Globulin (S) [Mass/Vol] 3.0 g/dL Normal [facility] Comment on above: Performed By: #### T SH, CMP, HSTROPN, LIPA, LINDA #### [facility] [address] [place] [address] Dr. Saray Souza Glucose [Mass/Vol] 97 mg/dL Normal 74-106 [facility] Comment on above: Performed By: #### T SH, CMP, HSTROPN, LIPA, LINDA #### [facility] [address] [place] [address] Dr. Saray Souza Potassium [Moles/Vol] 3.8 mmol/L Normal 3.5-5.1 [facility] Comment on above: Performed By: #### T SH, CMP, HSTROPN, LIPA, LINDA #### [facility] [address] [place] [address] Dr. Saray Souza Protein [Mass/Vol] 6.5 g/dL Normal 6.4-8.2 [facility] Comment on above: Performed By: #### T SH, CMP, HSTROPN, LIPA, LINDA #### [facility] [address] [address] [address] Saray Souza Sodium [Moles/Vol] 138 mmol/L Normal 136-145 [facility] Comment on above: Performed By: #### T SH, CMP, HSTROPN, LIPA, LINDA #### [facility] [address] [place] [address] Dr. Saray Souza Urea nitrogen [Mass/Vol] 13.0 mg/dL Normal 7.0-18.0 [facility] Comment on above: Performed By: #### T SH, CMP, HSTROPN, LIPA, LINDA #### [facility] [address] [place] [address] Dr. Saray Souza Urea nitrogen/Creatinine [Mass ratio] 19.4 mg/mg Normal [facility] Comment on above: Performed By: #### T SH, CMP, HSTROPN, LIPA, LINDA #### [facility] [address] [place] [address] Dr. Saray Souza TROPONIN, HIGH SENSITIVITYon 02-04-2023 HSTROP 4.0 pg/mL Normal 4.0-51.3 [facility] Comment on above: Result Comment: CUT- OFF POINTS HAVE BEEN ESTABLISHED BASED ON THE FOURTH UNIVERSAL DEFINITIONS OF MYOCARDIAL INFARCTION. THE UPPER REFERENCE LIMIT (URL) OF TROPONIN, DEFINED THE 99TH PERCENTILE OF cTnI DISTRIBUTION IN A REFERENCE POPULATION, HAS BEEN CONFIRMED THE DECISION THRESHOLD FOR WI DIAGNOSIS. Performed By: #### T SH, CMP, HSTROPN, LIPA, LINDA #### [facility] [address] [place] [address] Dr. Saray Souza TSHon 02-04-2023 TSH 2.478 uIU/mL Normal 0.358-3.740 [facility] Comment on above: Performed By: #### T SH, CMP, HSTROPN, LIPA, LINDA #### [facility] [address] [place] [address] Dr. Saray Souza URINE MICROSCOPIC ONLYon BACTERIA MODERATE Abnormal NONE SEEN [facility] Comment on above: Performed By: #### C BC #### [facility] [address] [place] [address] Dr. Saray Souza Bacteria identified Cx Nom (U) INDICATED Normal [facility] Comment on above: Performed By: #### C BC #### [facility] [address] [place] [address] Dr. Saray Souza CAST NONE SEEN Normal NONE SEEN [facility] Comment on above: Performed By: #### C BC #### [facility] [address] [place] [address] Dr. Saray Souza Crystals LM Nom (Urine sed) NONE SEEN Normal NONE SEEN [facility] Comment on above: Performed By: #### C BC #### [facility] [address] [place] [address] Dr. Saray Souza Epithelial cells LM Ql (Urine sed) MODERATE Abnormal NONE SEEN /RARE [facility] Comment on above: Performed By: #### C BC #### [facility] [address] [place] [address] Dr. Saray Souza MUCOUS NONE SEEN Normal NONE SEEN [facility] Comment on above: Performed By: #### C BC #### [facility] [address] [place] [address] Dr. Saray Souza RBC 5-10 Abnormal 0-2 [facility] Comment on above: Performed By: #### C BC #### [facility] [address] [place] [address] Dr. Saray Souza WBC 10-20 Abnormal NONE SEEN [facility] Comment on above: Performed By: #### C BC #### [facility] [address] [place] [address] Dr. Saray Souza Covid-19 PCR (CVDTB)on 09-24 SARS-CoV-2 (COVID-19) RNA DAYDAY+probe Ql (Unsp spec) Not detected Normal NOT DETECTED [facility] Comment on above: Result Comment: When [...] for this test is supported by the [place] of Health and Human Service's declaration that [...] used). Performed By: #### C BC #### [facility] [address] [place] [address] Dr. Saray Souza INFLUENZA A AND B [facility] 10-20 [facility] SEE BELOW Normal [facility] Comment on above: Result Comment: Nega tive for Flu A protein angiten. Infection due to Flu A cannot be ruled out. Flu A angiten in the sample may be below the detection limit of the test. Performed By: #### C BC #### [facility] [address] [place] [address] Dr. Saray Sou[facility] Normal [facility] Comment on above: Result Comment: Nega tive for Flu B protein antigen. Infection due to Flu B cannot be ruled out. Flu B antigen in the sample may be below the detection limit of the test. Performed By: #### C BC #### [facility] [address] [place] [address] Dr. Saray Souza INFLUENZA A AG Negative Normal NEGATIVE SEE COMMENT [facility] Comment on above: Performed By: #### C BC #### [facility] [address] [place] [address] Dr. Saray Souza INFLUENZA B AG Negative Normal NEGATIVE SEE COMMENT [facility] Comment on above: Performed By: #### C BC #### [facility] [address] [place] [address] Dr. Saray Souza INTERNAL CONTROLS Within Normal Limits Normal Wi thin Normal Limits [facility] Comment on above: Performed By: #### C BC #### [facility] [address] [place], [place] [address] Dr. Saray Souza STREPT SCREENon 10-20-2022 STREP SCREEN A Positive Abnormal NEGATIVE [facility] Comment on above: Performed By: #### C BC #### [facility] [address] [place], [place] [address] Dr. Saray Souza XR SHOULDER RT INJon [...] ADRIANA MENDEZ Date: 2022-07-18 17:05 Normal [facility] MRI SHOULDER RT WO CONon MRI [...] by: ADRIANA MENDEZ Date: 2022-07-10 10:10 Normal [facility] XR ARTHRO SHLD RTon 07-10-20 XR ARTHRO [...] by: ADRIANA MENDEZ Date: 2022-07-10 10:01 Normal [facility] No Panel Informationon 03-18 Right Eye Reliability was good. Findings include normal observations. Left Eye Reliability was good. Findings include normal observations. Notes I personally reviewed the visual zaldivar performed by this patient on 03/18/22. The visual zaldivar are normal OU with good fixation. Francisco Ayers MD [facility] Radiology Study observation (narrative) [facility] Progress Noteson 03-18-2022 Insurance Risk Manager Authentication Interface Message Text Referred by Retina [...] Hair) regarding headaches-- will fax information to [phone] - Offered referral to neurology, patient prefers [...] her PCP. Francisco Ayers MD Normal [facility] Ambulatory Clinical Summaryo n 10-09-2021 Ambulatory Clinical Summary {[id number]}CD:[id number] Normal [facility] General Surgery Office/Clini c Noteon 10-09-2021 General [...] Crystal Only if needed [address] [place] [address]- Additional Instructions: Problem List/Past Medical History Ongoing [...] SARS-CoV-2 (COVID-19) mRNA-1273 vaccine 03/18/2021 Recorded Normal [facility] Comment on above: Result Comment: Elec tronically Signed By: RUTH CLARK, Yonis Mckenzie\.br\Date and Time Signed: 10/09/21 15:14 EST Pathology Noteon 10-04-2021 Pathology Note [id number]. 00CD:127 Normal [facility] Operative Reporton Operative Report [id number] 0CD:127 Normal [facility] ECG 12-Leadon 10-02-2021 ECG 12-Lead [id number]#1.0 0CD:127 Normal [facility] Lab Reportson 10-02-2021 Lab Reports [id number] 0CD:127 Normal [facility] Consent for Procedure/Surger yon 10-01-2021 Consent for Procedure/Surgery [id number] 0CD:127 Normal [facility] Ambulatory Clinical Summaryo n 09-30-2021 Ambulatory Clinical Summary {[id number]}CD:[id number] Normal [facility] General Surgery Office/Clini c Noteon 09-30-2021 General [...] to bid with some improvement; seen in [facility] ED 2 days ago, abd ct with [...] SARS-CoV-2 (COVID-19) mRNA-1273 vaccine 03/18/2021 Recorded Normal [facility] Comment on above: Result Comment: Elec tronically Signed By: RUTH CLARK, Yonis Mckenzie\gaby\Date and Time Signed: 09/30/21 21:20 EST Outside Radiologyon 09-30-20 21 Outside Radiology [id number] 0CD:127 Normal [facility] September 25, 2021 DNAIEL CELAYA, [address], [place] [address] Re: ROSALIE FREEMAN Date of : 1995 Thank you for your referral of Rosalie Freeman who was seen on consultation on 09/20/2021 for 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 I have enclosed my consultation note for your review. I will be happy to follow Rosalie should her symptoms persist. Sincerely, Yonis Carney MD General Surgery Normal [facility] Ambulatory Clinical Summaryo n 09-20-2021 Ambulatory Clinical Summary {[id number]}CD:[id number] Normal [facility] ED Note-Physicianon 09-20-20 21 ED Note-Physician [id number] 0CD:127 Normal [facility] Physician Referralon 021 Physician Referral [id number] 0CD:127 Normal [facility] RAD - Ultrasound Reporton RAD - Ultrasound Report [id number] 0CD:127 Normal [facility] Cytologyon 12-20-2018 Cytology (NOTE) [id number] [email or web address] [facility] PATHOLOGISTS [facility] [address] [place] [address]. [place], [place] [address] GYNECOLOGIC CYTOLOGY REPORT Patient Name: ROSALIE FREEMAN V. MR#: [id number] Specimen #[id number] Source: 1: Cervical material, (ThinPrep vial, Imaging-assisted review) Clinical History Z01.419 Routine pci security consultant exam without abnormal findings High Risk HPV DNA testing is requested if the diagnosis is ASC-US LMP: implant INTERPRETATION Cervical material, (ThinPrep vial, Imaging-assisted review): Specimen Adequacy: Satisfactory for evaluation. - Endocervical/transform ation zone component present. - Scant cellularity; predominantly blood. Descriptive Diagnosis: Negative for intraepithelial lesion or malignancy. Condenser Cleaner: KANCHAN Mendoza(ASCP) Electronically Signed Out donna/01/03/2019 [facility] Comment on above: Performed By: #### P PPVP #### [employer] [facility] [address] [place] [address] Security Representative: Vega Wilkerson MD Vital Signs Date Time Vital Sign Value Performing Clinician Facility 11-19-2021 15:30-0500 Body height 180.34 cm Nandini Scarlett Other [facility] Other 11-19-2021 15:30-0500 Body mass index (BMI) [Ratio] 41.56 kg/m2 Nandini Scarlett Other [facility] Other 11-19-2021 15:30-0500 Body weight 135.17 kg Nandini Scarlett Other [facility] Other 11-19-2021 15:30-0500 Diastolic blood pressure 76 mm[Hg] Nandini Pantoja Other [facility] Other 11-19-2021 15:30-0500 Systolic blood pressure 128 mm[Hg] Nandini Scarlett Other [facility] Other Encounters Encounter Date Encounter Type Care Provider Facility Start: 04-17-2023 End: 04-17-2023 ambulatory SALMA MONET . Facility:[facility] Start: 04-06-2023 End: 04-07-[address] MELODIE HARGROVE . Facility:[facility] Start: 04-04-2023 Encounter for genera l adult medical examination without abnormal findings DR MELODIE HARGROVE . [facility] Start: 04-03-2023 End: 04-04-[address] [...] 11-19-2021 End: 11-19-2021 ambulatory Nandini Pantoja Other [facility] Other Start: 11-19-2021 Office outpatient ne w 30 minutes Nandini Pantoja [facility] G[facility] Start: 12-20-2018 End: 12-21-2018 Patient encounter procedure ANDRESSA ESCALANTE [facility] Procedures Date Procedure Procedure Detail Performing Clinician [...] Hepatitis C screening Hepatitis C An tibody [facility] Start: 2011 Tetanus + diphtheria + acellular pertussis vaccine (product) Tdap Booster [facility] Start: 2008 HIV screening HIV Test [facility] Start: 1998 COVID-19 Vaccine (1) COVID-19 Vaccin e (1) [facility] Immunizations Immunization Date Immunization Notes Care Provider Fa jessica 03-21-2014 influenza virus vacc ine, unspecified formulation Estella Guerrero MD Work Phone: [facility] Payers Date Payer Category Payer Unknown [facility] [employer] [id number] 2017-Present [id number] 1995 Unknown [id number] 1995 Unknown [id number] 1995 Unknown [id number] 1993 Unknown [id number] 2.16.840.1.992040.3.579.2.593 1993 Unknown [id number] 2.16.840.1.786627.3.579.2.593 1993 Unknown [id number] 2.16.840.1.064549.3.579.2.593 1993 Unknown [id number] 2.16.840.1.191953.3.579.2.593 1993 Unknown [id number] 2.16.840.1.917853.3.579.2.593 1993 Unknown [id number] 2.16.840.1.155966.3.579.2.593 1993 Unknown [id number] 2.16.840.1.803494.3.579.2.593 1993 Unknown [id number] 2.16.840.1.456344.3.579.2.593 1993 Unknown [id number] 2.16.840.1.262994.3.579.2.593 1993 Unknown [id number] 2.16.840.1.995551.3.579.2.593 1993 Unknown [id number] 2.16.840.1.386209.3.579.2.593 1959 Unknown [id number] Social History Date Type Detail Facility Tobacco smoking status [facility] Tobacco smoking consumption unknown [facility] Other Start: 1995 Sex Assigned At Not on file [facility] Clinical Note 05-13-2022 Note Date & Type Note Facility 05-13-2022 Note PROCEDURE: XR SHOULD ER RT 2V or > COMPARISON: None. HISTORY: Pain of right shoulder joint FINDINGS: BONES:No fracture, acute abnormality, or significant arthropathy. SOFT TISSUES:Negative. No visible soft tissue swelling. EFFUSION:None visible. OTHER: Negative. IMPRESSION: Normal examination. Electronically authenticated by: NANDINI MAYER Date: 2022-05-13 08:41 [facility] History of Present illness Narrative 03-18-2022 Francisco [...] Hair) regarding headaches-- will fax information to [phone] - Offered referral to neurology, patient prefers [...] Francisco Ayers MD documented in this encounter [facility] History of Present illness Narrative 03-18-2022 [...] Hair) regarding headaches-- will fax information to [phone] - Offered referral to neurology, patient prefers [...] Francisco Ayers MD documented in this encounter [facility] Clinical Note 09-23-2021 Note Date & Type Note Facility 09-23-2021 Note Chief Complaint consultation for epigastric pain HPI Staff 26 year old female presents on consultation from Kate Celaya GAS TECHNICIAN for 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 RUQ US completed 09/19 [...] Pantoprazole 40 mg (more content not included)... [facility] Comment on above: Result Comment: Elec tronically Signed By: RUTH CLARK, Yonis Cardenas\Date and Time Signed: 09/23/21 21:36 EDT Clinical Note 09-23-2021 Note Date & Type Note Facility 09-23-2021 Note Chief Complaint consultation for epigastric pain HPI Staff 26 year old female presents on consultation from Kate Celaya GAS TECHNICIAN for 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 RUQ US completed 09/19 [...] - Denies Alcoho (more content not included)... [facility] Comment on above: Result Comment: Elec tronically [...] Date & Type Note Facility Evaluation note [facility] [employer] Other History general Narrative - Reported Note Date & Type Note Facility History general Narrative - Reported [facility] Other Summary Purpose Family History No Family [...] DATE CREATED AUTHOR AUTHOR'S ORGANIZ ATION 11/09/2021 [facility] DATE CREATED AUTHOR AUTHOR'S ORGANIZ ATION 03/20/2022 [facility] DATE CREATED AUTHOR AUTHOR'S ORGANIZ ATION 04/18/2023 [facility] Reason for Visit (unrecogniz ed [...] BE BASED ON THE PRIMARY CLINICAL RECORDS. [facility] [employer] [facility]. provides no warranty or guarantee of the accuracy or completeness of information in this document.
== END 2023-11-27 08:00 | disposition home or self-care (01) ==
LOC: US 07:59
PROVIDERS: PCP Family Medicine; Visit Provider Family Medicine
DX: R80.9 Proteinuria, unspecified (principal)
CPT/HCPCS: 76770

== ENCOUNTER 2023-12-02 11:50 | Outpatient (REF) | payer OTHER, SELFPAY ==
--- OUTSIDE RECORDS SUMMARY | 2023-12-03 11:51 | XMS_ITS | CCD ---
Author Name Unknown Address [address] [facility] [address] [place] [id number] Organization [facility] Care Team Providers Care Emergency Room Specialist Name Role Phone ANDRESSA ESCALANTE Referring Unavailable [...] Date of Onset Reaction(s) Facility (1 source) [facility]; Translations: [[facility]] Propensity to adverse reactions (disorder) 0 [facility] Medications Current Medications Medication Drug [...] 3 Episodic Other aftercare (1 source) Other custodial (current) drug therapy; Translations: [OTH ASSISTED CURRENT DRUG THERAPY] Onset: 3 Episodic Other [...] (Bld) [Mass/Vol] 246.0 pg/mL Normal <=450.0 [facility] Comment on above: Performed By: #### I NSULIN #### [facility] [address] [place] [address] Dr. Saray Souza CARDIAC NELI ADMITon 023 CK [Catalytic activity/Vol] 47 U/L Normal 26-192 [facility] Comment on above: Performed By: #### I CURLYULIN #### [facility] [address] [place] [address] Dr. Saray oSuza CK.MB [Mass/Vol] 1.02 ng/mL Normal <=3.60 [facility] Comment on above: Performed By: #### I CURLYULIN #### [facility] [address] [place] [address] Dr. Saray Souza HSTROP 4.5 pg/mL Normal 4.0-51.3 [facility] Comment on above: Result Comment: CUT- OFF POINTS HAVE BEEN ESTABLISHED BASED ON THE FOURTH UNIVERSAL DEFINITIONS OF MYOCARDIAL INFARCTION. THE UPPER REFERENCE LIMIT (URL) OF TROPONIN, DEFINED THE 99TH PERCENTILE OF cTnI DISTRIBUTION IN A REFERENCE POPULATION, HAS BEEN CONFIRMED THE DECISION THRESHOLD FOR SD DIAGNOSIS. Performed By: #### I NSULIN #### [facility] [address] [place] [address] Dr. Saray Souaz FRANKLIN 36 ng/mL Normal 9-82 [facility] Comment on above: Performed By: #### I CURLYULIN #### [facility] [address] [address] [address] Saray Souza CBC W MANUAL DIFFon 04-17-20 23 ATYPICAL LYMPH # Normal [facility] Comment on above: Performed By: #### C EDGARDO #### [facility] [address] [place] [address] Dr. Saray Souza ATYPICAL LYMPH % Normal [facility] Comment on above: Performed By: #### C BCMAN #### [facility] [address] [place] [address] Dr. Saray Souza BAND # 0.3 103/ul Normal 0.0-0.3 [facility] Comment on above: Performed By: #### C EDGARDO #### [facility] [address] [place] [address] Dr. Saray Souza BAND % 1 % Normal 0-5 [facility] Comment on above: Performed By: #### C BCPRESLEY #### [facility] [address] [place] [address] Dr. Saray Souza BASOM # 0.00 103/ul Normal 0.00-0.10 [facility] Comment on above: Performed By: #### C BCPRESLEY #### [facility] [address] [place] [address] Dr. Saray Souza BASOM % 0.0 % Critically low 0.2-2.0 [facility] Comment on above: Performed By: #### C BCMAN #### [facility] [address] [place] [address] Dr. Saray Souza BLAST # Normal [facility] Comment on above: Performed By: #### C EDGARDO #### [facility] [address] [place] [address] Dr. Saray Souza BLAST % Normal [facility] Comment on above: Performed By: #### C EDGARDO #### [facility] [address] [place] [address] Dr. Saray Souza CORRECTED WBC Normal 4.0-11.0 [facility] Comment on above: Performed By: #### C EGDARDO #### [facility] [address] [place] [address] Dr. Saray Souza EOS # 0.00 103/ul Normal 0.00-0.70 [facility] Comment on above: Performed By: #### C EDGARDO #### [facility] [address] [place] [address] Dr. Saray Souza EOS% 0.0 % Critically low 0.9-7.0 [facility] Comment on above: Performed By: #### C BCPRESLEY #### [facility] [address] [place] [address] Dr. Saray Souza HCT 43.6 % Normal 36.0-48.0 [facility] Comment on above: Performed By: #### C EDGARDO #### [facility] [address] [place] [address] Dr. Saray Souza HGB 14.7 g/dl Normal 12.0-16.0 [facility] Comment on above: Performed By: #### C EDGARDO #### [facility] [address] [address] [address] Saray Souza LYMPHM # 1.55 103/ul Normal 1.20-3.80 [facility] Comment on above: Performed By: #### C EDGARDO #### [facility] [address] [address] [address] Saray Souza LYMPHM% 6.0 % Critically low 20.5-60.0 [facility] Comment on above: Performed By: #### C EDGARDO #### [facility] [address] [address] [address] Saray Souza MCH 30.3 pg Normal 26.7-34.0 [facility] Comment on above: Performed By: #### C EDGARDO #### [facility] [address] [place] [address] Dr. Saray Souza MCHC 33.7 g/dl Normal 29.9-35.2 [facility] Comment on above: Performed By: #### Sweetie REYNOSO #### [facility] [address] [place] [address] Dr. Saray Souza MCV 89.9 fL Normal 81.0-99.0 [facility] Comment on above: Performed By: #### C EDGARDO #### [facility] [address] [place] [address] Dr. Saray Souza METAMYELOCYTE # Normal [facility] Comment on above: Performed By: #### Sweetie REYNOSO #### [facility] [address] [place] [address] Dr. Saray Souza METAMYELOCYTE % Normal [facility] Comment on above: Performed By: #### C EDGARDO #### [facility] [address] [place] [address] Dr. Saray Souza MONOM# 2.06 103/ul Critically high 0.30-0.80 [facility] Comment on above: Performed By: #### Sweetie REYNOSO #### [facility] [address] [place] [address] Dr. Saray Souza MONOM% 8.0 % Normal 1.7-12.0 [facility] Comment on above: Performed By: #### C EDGARDO #### [facility] [address] [place] [address] Dr. Saray Souza MPV 8.8 fL Critically low 9.5-13.5 [facility] Comment on above: Performed By: #### C BCPRESLEY #### [facility] [address] [place] [address] Dr. Saray Souza MYELOCYTE # Normal [facility] Comment on above: Performed By: #### C EDGARDO #### [facility] [address] [place] [address] Dr. Saray Souza MYELOCYTE % Normal [facility] Comment on above: Performed By: #### C EDGARDO #### [facility] [address] [place] [address] Dr. Saray Souza NRBC Normal [facility] Comment on above: Performed By: #### C EDGARDO #### [facility] [address] [place] [address] Dr. Saray Souza PLT 397 103/ul Normal 150-450 [facility] Comment on above: Performed By: #### C EDGARDO #### [facility] [address] [place] [address] Dr. Saray Souza RBC 4.85 106/ul Normal 4.20-5.40 [facility] Comment on above: Performed By: #### C EDGARDO #### [facility] [address] [place] [address] Dr. Saray Souza RDW 12.0 % Normal 11.0-15.0 [facility] Comment on above: Performed By: #### C BCPRESLEY #### [facility] [address] [place] [address] Dr. Saray Souza SEG # 21.93 103/ul Critically high 1.40-6.50 [facility] Comment on above: Performed By: #### C EDGARDO #### [facility] [address] [place] [address] Dr. Saray Souza SEG % 85.0 % Critically high 43.0-75.0 [facility] Comment on above: Performed By: #### C BCMAN #### [facility] [address] [place] [address] Dr. Saray Souza WBC 25.8 103/ul Critically high 4.0-11.0 [facility] Comment on above: Performed By: #### C BCMAN #### [facility] [address] [place] [address] Dr. Saray Souza CULTURE URINEon 04-17-2023 CULTURE URINE Culture Observations : LORENZO TO FOLLOW. Isolate 1 Enterococcus faecalis 20,000 cfu/mL of Normal [facility] Comment on above: Performed By: #### C BC #### [facility] [address] [place] [address] Dr. Saray Souza ER URINE PROFILEon 3 Bilirubin Ql (U) Negative Normal NEGATIVE [facility] Comment on above: Performed By: #### C BC #### [facility] [address] [place] [address] Dr. Saray Souza Clarity (U) CLEAR Normal CLEAR [facility] Comment on above: Performed By: #### C BC #### [facility] [address] [place] [address] Dr. Saray Souza Color (U) LT. YELLOW Normal YELLOW [facility] Comment on above: Performed By: #### C BC #### [facility] [address] [place] [address] Dr. [facility] micrscopic examination will be performed if indicated. Normal [facility] Comment on above: Performed By: #### C BC #### [facility] [address] [place] [address] Dr. Saray Souza Glucose Ql (U) Negative Normal NEGATIVE [facility] Comment on above: Performed By: #### C BC #### [facility] [address] [place] [address] Dr. Saray Souza Hemoglobin Ql (U) Negative Normal NEGATIVE [facility] Comment on above: Performed By: #### C BC #### [facility] [address] [place] [address] Dr. Saray Souza Ketones Ql (U) Negative Normal NEGATIVE [facility] Comment on above: Performed By: #### C BC #### [facility] [address] [place] [address] Dr. Saray Souza LEUKOCYTES SMALL Abnormal NEGATIVE [facility] Comment on above: Performed By: #### C BC #### [facility] [address] [place] [address] Dr. Saray Souza Nitrite Ql (U) Negative Normal NEGATIVE [facility] Comment on above: Performed By: #### C BC #### [facility] [address] [place] [address] Dr. Saray Souza pH (U) 6.5 [pH] Normal 5-9 [facility] Comment on above: Performed By: #### C BC #### [facility] [address] [place] [address] Dr. Saary Souza SPEC GRAVITY 1.025 Normal 1.005-<=1.025 [facility] Comment on above: Performed By: #### C BC #### [facility] [address] [place] [address] Dr. Saray Souza UA PROTEIN Negative Normal NEGATIVE/ TRACE [facility] Comment on above: Performed By: #### C BC #### [facility] [address] [place] [address] Dr. Saray Souza UR MICRO IND INDICATED Normal [facility] Comment on above: Performed By: #### C BC #### [facility] [address] [place] [address] Dr. Saray Souza Urobilinogen Qn (U) 0.2 {Janine'U}/dL Normal 0.2 - 1. 0 [facility] Comment on above: Performed By: #### C BC #### [facility] [address] [place] [address] Dr. Saray Souza URon 04-17-2023 , QUAL Negative Normal NEGATIVE [facility] Comment on above: Performed By: #### C BC #### [facility] [address] [place] [address] Dr. Saray Souza PROF 14(COMP METB)on 023 Albumin [Mass/Vol] 3.0 g/dL Critically low 3.4-5.0 [facility] Comment on above: Performed By: #### I NSULIN #### [facility] [address] [place] [address] Dr. Saray Souza Albumin/Globulin [Mass ratio] 0.9 {ratio} Normal [facility] Comment on above: Performed By: #### I NSULIN #### [facility] [address] [place] [address] Dr. Saray Souza ALP [Catalytic activity/Vol] 54 U/L Normal 46-116 [facility] Comment on above: Performed By: #### I NSULIN #### [facility] [address] [place] [address] Dr. Saray Souza ALT [Catalytic activity/Vol] 27 U/L Normal 14-59 [facility] Comment on above: Performed By: #### I NSULIN #### [facility] [address] [place] [address] Dr. Saray Souza Anion gap [Moles/Vol] 12.9 mmol/L Normal [facility] Comment on above: Performed By: #### I NSULIN #### [facility] [address] [place] [address] Dr. Saray Souza AST [Catalytic activity/Vol] 12 U/L Critically low 15-37 [facility] Comment on above: Performed By: #### I NSULIN #### [facility] [address] [place] [address] Dr. Saray Souza Bilirubin [Mass/Vol] 0.3 mg/dL Normal 0.2-1.0 [facility] Comment on above: Performed By: #### I NSULIN #### [facility] [address] [place] [address] Dr. Saray Souza Calcium [Mass/Vol] 8.1 mg/dL Critically low 8.5-10.1 [facility] Comment on above: Performed By: #### I NSULIN #### [facility] [address] [place] [address] Dr. Saray Souza Chloride [Moles/Vol] 102 mmol/L Normal 98-107 [facility] Comment on above: Performed By: #### I NSULIN #### [facility] [address] [address] [address] Saray Souza CO2 [Moles/Vol] 26.2 mmol/L Normal 21.0-32.0 [facility] Comment on above: Performed By: #### I NSULIN #### [facility] [address] [place] [address] Dr. Saray Souza Creatinine [Mass/Vol] 0.87 mg/dL Normal 0.55-1.02 [facility] Comment on above: Performed By: #### I NSULIN #### [facility] [address] [place] [address] Dr. Saray Souza EGFR-AF CUBAN >60 Normal >=60 [facility] Comment on above: Performed By: #### I NSULIN #### [facility] [address] [place] [address] Dr. Saray Souza EGFR-NON AF CUBAN >60 Normal >=60 [facility] Comment on above: Performed By: #### I NSULIN #### [facility] [address] [place] [address] Dr. Saray Souza Globulin (S) [Mass/Vol] 3.2 g/dL Normal [facility] Comment on above: Performed By: #### I NSULIN #### [facility] [address] [place] [address] Dr. Saray Souza Glucose [Mass/Vol] 206 mg/dL Critically high 74-106 [facility] Comment on above: Performed By: #### I NSULIN #### [facility] [address] [place] [address] Dr. Saray Souza Potassium [Moles/Vol] 4.1 mmol/L Normal 3.5-5.1 [facility] Comment on above: Performed By: #### I NSULIN #### [facility] [address] [place] [address] Dr. Saray Souza Protein [Mass/Vol] 6.2 g/dL Critically low 6.4-8.2 [facility] Comment on above: Performed By: #### I NSULIN #### [facility] [address] [place] [address] Dr. Saray Souza Sodium [Moles/Vol] 137 mmol/L Normal 136-145 [facility] Comment on above: Performed By: #### I NSULIN #### [facility] [address] [place] [address] Dr. Saray Souza Urea nitrogen [Mass/Vol] 19.0 mg/dL Critically high 7.0-18.0 [facility] Comment on above: Performed By: #### I NSULIN #### [facility] [address] [place] [address] Dr. Saray Souza Urea nitrogen/Creatinine [Mass ratio] 21.8 mg/mg Normal [facility] Comment on above: Performed By: #### I NSULIN #### [facility] [address] [place] [address] Dr. Saray Souza TSHon 04-17-2023 TSH 0.553 uIU/mL Normal 0.358-3.740 [facility] Comment on above: Performed By: #### I NSULIN #### [facility] [address] [place] [address] Dr. Saray Souza URINE MICROSCOPIC ONLYon BACTERIA TRACE Abnormal NONE SEEN [facility] Comment on above: Performed By: #### C BC #### [facility] [address] [place] [address] Dr. Saray Souza Bacteria identified Cx Nom (U) INDICATED Normal [facility] Comment on above: Performed By: #### C BC #### [facility] [address] [place] [address] Dr. Saray Souza CAST NONE SEEN Normal NONE SEEN [facility] Comment on above: Performed By: #### C BC #### [facility] [address] [place] [address] Dr. Saray Souza Crystals LM Nom (Urine sed) NONE SEEN Normal NONE SEEN [facility] Comment on above: Performed By: #### C BC #### [facility] [address] [address] [address] Saray Souza Epithelial cells LM Ql (Urine sed) RARE Normal NONE SEEN /RARE [facility] Comment on above: Performed By: #### C BC #### [facility] [address] [place] [address] Dr. Saray Souza MUCOUS NONE SEEN Normal NONE SEEN [facility] Comment on above: Performed By: #### C BC #### [facility] [address] [address] [address] Saray Souza RBC 0-2 Normal 0-2 [facility] Comment on above: Performed By: #### C BC #### [facility] [address] [place] [address] Dr. Saray Souza WBC 5-10 Abnormal NONE SEEN [facility] Comment on above: Performed By: #### C BC #### [facility] [address] [place] [address] Dr. Saray Souza XR CHEST 2 Von [...] CAROL RAMIREZ Date: 2023-04-17 10:45 Normal [facility] INSULINon 04-07-2023 Insulin 11.3 uIU/mL Normal 2.6-24.9 [facility] Comment on above: Performed By: #### I NSULIN #### [facility] [address] [place] [address] Dr. Saray Souza US KIDNEYS BLADDERon 023 [...] NANDINI MAYER Date: 2023-04-04 08:22 Normal [facility] INSULINon 04-02-2023 Insulin 37.5 uIU/mL Critically high 2.6-24.9 [facility] Comment on above: Performed By: #### I NSULIN #### [facility] [address] [place] [address] Dr. Saray Souza CBC AUTO DIFFon 04-01-2023 BASO # 0.0 103/ul Normal 0.0-0.1 [facility] Comment on above: Performed By: #### C BC #### [facility] [address] [place] [address] Dr. Saray Souza Basophils/100 WBC (Bld) 0.5 % Normal 0.2-2.0 [facility] Comment on above: Performed By: #### C BC #### [facility] [address] [place] [address] Dr. Saray Souza EO # 0.2 103/ul Normal 0.0-0.7 [facility] Comment on above: Performed By: #### C BC #### [facility] [address] [place] [address] Dr. Saray Souza Eosinophils/100 WBC (Bld) 2.3 % Normal 0.9-7.0 [facility] Comment on above: Performed By: #### C BC #### [facility] [address] [place] [address] Dr. Saray Souza Erythrocyte distribution width (RBC) [Ratio] 11.9 % Normal 11.0-15.0 [facility] Comment on above: Performed By: #### C BC #### [facility] [address] [place] [address] Dr. Saray Souza Hematocrit (Bld) [Volume fraction] 42.2 % Normal 36.0-48.0 [facility] Comment on above: Performed By: #### C BC #### [facility] [address] [place] [address] Dr. Saray Souza Hemoglobin (Bld) [Mass/Vol] 13.7 g/dL Normal 12.0-16.0 [facility] Comment on above: Performed By: #### C BC #### [facility] [address] [place] [address] Dr. Saray Souza IG # 0.02 10e3/ul Normal 0.00-0.03 [facility] Comment on above: Performed By: #### C BC #### [facility] [address] [place] [address] Dr. Saray Souza IG % 0.3 % Normal 0.0-0.5 [facility] Comment on above: Performed By: #### C BC #### [facility] [address] [place] [address] Dr. Saray Souza LYMPH # 1.6 103/ul Normal 1.2-3.8 [facility] Comment on above: Performed By: #### C BC #### [facility] [address] [place] [address] Dr. Saray Souza Lymphocytes/100 WBC (Bld) 21.5 % Normal 20.5-60.0 [facility] Comment on above: Performed By: #### C BC #### [facility] [address] [place] [address] Dr. Saray Souza MANUAL DIFF REQ NO Normal [facility] Comment on above: Performed By: #### C BC #### [facility] [address] [place] [address] Dr. Saray Souza MCH (RBC) [Entitic mass] 30.0 pg Normal 26.7-34.0 [facility] Comment on above: Performed By: #### C BC #### [facility] [address] [address] [address] Saray Souza MCHC (RBC) [Mass/Vol] 32.5 g/dL Normal 29.9-35.2 [facility] Comment on above: Performed By: #### C BC #### [facility] [address] [place] [address] Dr. Saray Souza MCV (RBC) [Entitic vol] 92.5 fL Normal 81.0-99.0 [facility] Comment on above: Performed By: #### C BC #### [facility] [address] [place] [address] Dr. Saray Souza MONO # 0.7 103/ul Normal 0.3-0.8 [facility] Comment on above: Performed By: #### C BC #### [facility] [address] [place] [address] Dr. Saray Souza Monocytes/100 WBC (Bld) 9.6 % Normal 1.7-12.0 [facility] Comment on above: Performed By: #### C BC #### [facility] [address] [place] [address] Dr. Saray Souza NEUT # 5.0 103/ul Normal 1.4-6.5 [facility] Comment on above: Performed By: #### C BC #### [facility] [address] [place] [address] Dr. Saray Souza Neutrophils/100 WBC (Bld) 65.8 % Normal 43.0-75.0 [facility] Comment on above: Performed By: #### C BC #### [facility] [address] [place] [address] Dr. Saray Souza Platelet mean volume (Bld) [Entitic vol] 8.9 fL Critically low 9.5-13.5 [facility] Comment on above: Performed By: #### C BC #### [facility] [address] [place] [address] Dr. Saray Souza PLT 293 103/ul Normal 150-450 [facility] Comment on above: Performed By: #### C BC #### [facility] [address] [place] [address] Dr. Saray Souza RBC 4.56 106/ul Normal 4.20-5.40 [facility] Comment on above: Performed By: #### C BC #### [facility] [address] [place] [address] Dr. Saray Souza WBC 7.5 103/ul Normal 4.0-11.0 [facility] Comment on above: Performed By: #### C BC #### [facility] [address] [place] [address] Dr. Saray Souza CULTURE URINEon 04-01-2023 CULTURE URINE Culture Observations : MODERATE GROWTH OF MIXED GENITAL CARMELO. NO POTENTIAL PATHOGENS SEEN. Normal [facility] Comment on above: Performed By: #### C BC #### [facility] [address] [place] [address] Dr. Saray Souza FREE THYROXINE INDEX T7on FTI 2.51 Normal 1.30-4.50 [facility] Comment on above: Performed By: #### I NSULIN #### [facility] [address] [place] [address] Dr. Saray Souza T3U 33.0 % Normal 30.0-39.0 [facility] Comment on above: Performed By: #### I NSULIN #### [facility] [address] [place] [address] Dr. Saray Souza T4 [Mass/Vol] 7.60 ug/dL Normal 4.80-13.90 [facility] Comment on above: Performed By: #### I NSULIN #### [facility] [address] [place] [address] Dr. Saray Souza IRONon 04-01-2023 Iron [Mass/Vol] 151.0 ug/dL Normal 50.0-170.0 [facility] Comment on above: Performed By: #### C BCMAN #### [facility] [address] [place] [address] Dr. Saray Souza PROF 14(COMP METB)on 023 Albumin [Mass/Vol] 3.7 g/dL Normal 3.4-5.0 [facility] Comment on above: Performed By: #### C EDGARDO #### [facility] [address] [place] [address] Dr. Saray Souza Albumin/Globulin [Mass ratio] 1.1 {ratio} Normal [facility] Comment on above: Performed By: #### C BCPRESLEY #### [facility] [address] [address] [address] Saray Souza ALP [Catalytic activity/Vol] 81 U/L Normal 46-116 [facility] Comment on above: Performed By: #### C BCPRESLEY #### [facility] [address] [place] [address] Dr. Saray Souza ALT [Catalytic activity/Vol] 33 U/L Normal 14-59 [facility] Comment on above: Performed By: #### C EDGARDO #### [facility] [address] [place] [address] Dr. Saray Souza Anion gap [Moles/Vol] 10.2 mmol/L Normal [facility] Comment on above: Performed By: #### C BCPRESLEY #### [facility] [address] [place] [address] Dr. Saray Souza AST [Catalytic activity/Vol] 22 U/L Normal 15-37 [facility] Comment on above: Performed By: #### C EDGARDO #### [facility] [address] [place] [address] Dr. Saray Souza Bilirubin [Mass/Vol] 0.3 mg/dL Normal 0.2-1.0 [facility] Comment on above: Performed By: #### C BCPRESLEY #### [facility] [address] [address] [address] Saray Souza Calcium [Mass/Vol] 8.6 mg/dL Normal 8.5-10.1 [facility] Comment on above: Performed By: #### C EDGARDO #### [facility] [address] [place] [address] Dr. Saray Souza Chloride [Moles/Vol] 105 mmol/L Normal 98-107 [facility] Comment on above: Performed By: #### C BCMAN #### [facility] [address] [address] [address] Saray Souza CO2 [Moles/Vol] 30.4 mmol/L Normal 21.0-32.0 [facility] Comment on above: Performed By: #### C BCMAN #### [facility] [address] [address] [address] Saray Souza Creatinine [Mass/Vol] 0.72 mg/dL Normal 0.55-1.02 [facility] Comment on above: Performed By: #### C BCMAN #### [facility] [address] [address] [address] Saray Souza EGFR-AF CUBAN >60 Normal >=60 [facility] Comment on above: Performed By: #### C BCPRESLEY #### [facility] [address] [address] [address] Saray Souza EGFR-NON AF CUBAN >60 Normal >=60 [facility] Comment on above: Performed By: #### C BCMAN #### [facility] [address] [address] [address] Saray Souza Globulin (S) [Mass/Vol] 3.5 g/dL Normal [facility] Comment on above: Performed By: #### C BCMAN #### [facility] [address] [address] [address] Saray Souza Glucose [Mass/Vol] 89 mg/dL Normal 74-106 [facility] Comment on above: Performed By: #### C BCMAN #### [facility] [address] [address] [address] Saray Souza Potassium [Moles/Vol] 3.6 mmol/L Normal 3.5-5.1 [facility] Comment on above: Performed By: #### C BCMAN #### [facility] [address] [address] [address] Saray Souza Protein [Mass/Vol] 7.2 g/dL Normal 6.4-8.2 [facility] Comment on above: Performed By: #### C BCMAN #### [facility] [address] [place] [address] Dr. Saray Souza Sodium [Moles/Vol] 142 mmol/L Normal 136-145 [facility] Comment on above: Performed By: #### C EDGARDO #### [facility] [address] [place] [address] Dr. Saray Souza Urea nitrogen [Mass/Vol] 12.0 mg/dL Normal 7.0-18.0 [facility] Comment on above: Performed By: #### C EDGARDO #### [facility] [address] [place] [address] Dr. Saray Souza Urea nitrogen/Creatinine [Mass ratio] 16.7 mg/mg Normal [facility] Comment on above: Performed By: #### C EDGARDO #### [facility] [address] [place] [address] Dr. Saray Souza TSHon 04-01-2023 TSH 1.708 uIU/mL Normal 0.358-3.740 [facility] Comment on above: Performed By: #### I NSULIN #### [facility] [address] [place] [address] Dr. Saray Souza UA RANDOM W/MICROSCOPICon BACTERIA SMALL Abnormal NONE SEEN [facility] Comment on above: Performed By: #### I NSULIN #### [facility] [address] [place] [address] Dr. Saray Souza Bilirubin Ql (U) Negative Normal NEGATIVE [facility] Comment on above: Performed By: #### I NSULIN #### [facility] [address] [place] [address] Dr. Saray Souza CAST NONE SEEN Normal NONE SEEN [facility] Comment on above: Performed By: #### I NSULIN #### [facility] [address] [place] [address] Dr. Saray Souza Clarity (U) CLEAR Normal CLEAR [facility] Comment on above: Performed By: #### I NSULIN #### [facility] [address] [place] [address] Dr. Saray Souza Color (U) YELLOW Normal YELLOW [facility] Comment on above: Performed By: #### I NSULIN #### [facility] [address] [address] [address] Saray Souza Crystals LM Nom (Urine sed) NONE SEEN Normal NONE SEEN [facility] Comment on above: Performed By: #### I NSULIN #### [facility] [address] [place] [address] Dr. Saray Souza Epithelial cells LM Ql (Urine sed) FEW Abnormal NONE SEEN /RARE [facility] Comment on above: Performed By: #### I NSULIN #### [facility] [address] [address] [address] Saray Souza Glucose Ql (U) Negative Normal NEGATIVE [facility] Comment on above: Performed By: #### I NSULIN #### [facility] [address] [place] [address] Dr. Saray Souza Hemoglobin Ql (U) Negative Normal NEGATIVE [facility] Comment on above: Performed By: #### I NSULIN #### [facility] [address] [place] [address] Dr. Saray Souza Ketones Ql (U) TRACE Abnormal NEGATIVE [facility] Comment on above: Performed By: #### I NSULIN #### [facility] [address] [place] [address] Dr. Saray Souza LEUKOCYTES SMALL Abnormal NEGATIVE [facility] Comment on above: Performed By: #### I NSULIN #### [facility] [address] [address] [address] Saray Souza MUCOUS NONE SEEN Normal NONE SEEN [facility] Comment on above: Performed By: #### I NSULIN #### [facility] [address] [address] [address] Saray Souza Nitrite Ql (U) Negative Normal NEGATIVE [facility] Comment on above: Performed By: #### I NSULIN #### [facility] [address] [place] [address] Dr. Saray Souza pH (U) 5.5 [pH] Normal 5-9 [facility] Comment on above: Performed By: #### I NSULIN #### [facility] [address] [place] [address] Dr. Saray Souza RBC 0-2 Normal 0-2 [facility] Comment on above: Performed By: #### I NSULIN #### [facility] [address] [place] [address] Dr. Saray Souza SPEC GRAVITY >=1.030 Abnormal 1.005-<=1.[address] [facility] Comment on above: Performed By: #### I NSULIN #### [facility] [address] [place] [address] Dr. Saray Souza UA PROTEIN Negative Normal NEGATIVE/ TRACE [facility] Comment on above: Performed By: #### I NSULIN #### [facility] [address] [place] [address] Dr. Saray Souza Urobilinogen Qn (U) 0.2 {Janine'U}/dL Normal 0.2 - 1. 0 [facility] Comment on above: Performed By: #### I NSULIN #### [facility] [address] [place] [address] Dr. Saray Souza WBC 5-10 Abnormal NONE SEEN [facility] Comment on above: Performed By: #### I NSULIN #### [facility] [address] [place] [address] Dr. Saray Souza INSULINon 02-14-2023 Insulin 12.8 uIU/mL Normal 2.6-24.9 [facility] Comment on above: Performed By: #### C BC #### [facility] [address] [place] [address] Dr. Saray Souza CBC AUTO DIFFon 02-13-2023 BASO # 0.0 103/ul Normal 0.0-0.1 [facility] Comment on above: Performed By: #### C BC #### [facility] [address] [place] [address] Dr. Saray Souza Basophils/100 WBC (Bld) 0.4 % Normal 0.2-2.0 [facility] Comment on above: Performed By: #### C BC #### [facility] [address] [place] [address] Dr. Saray Souza EO # 0.1 103/ul Normal 0.0-0.7 [facility] Comment on above: Performed By: #### C BC #### [facility] [address] [place] [address] Dr. Saray Souza Eosinophils/100 WBC (Bld) 1.6 % Normal 0.9-7.0 [facility] Comment on above: Performed By: #### C BC #### [facility] [address] [place] [address] Dr. Saray Souza Erythrocyte distribution width (RBC) [Ratio] 11.9 % Normal 11.0-15.0 [facility] Comment on above: Performed By: #### C BC #### [facility] [address] [place] [address] Dr. Saray Souza Hematocrit (Bld) [Volume fraction] 41.9 % Normal 36.0-48.0 [facility] Comment on above: Performed By: #### C BC #### [facility] [address] [place] [address] Dr. Saray Souza Hemoglobin (Bld) [Mass/Vol] 13.7 g/dL Normal 12.0-16.0 [facility] Comment on above: Performed By: #### C BC #### [facility] [address] [place] [address] Dr. Saray Souza IG # 0.02 10e3/ul Normal 0.00-0.03 [facility] Comment on above: Performed By: #### C BC #### [facility] [address] [place] [address] Dr. Saray Souza IG % 0.3 % Normal 0.0-0.5 [facility] Comment on above: Performed By: #### C BC #### [facility] [address] [place] [address] Dr. Saray Souza LYMPH # 1.4 103/ul Normal 1.2-3.8 [facility] Comment on above: Performed By: #### C BC #### [facility] [address] [place] [address] Dr. Saray Souza Lymphocytes/100 WBC (Bld) 18.6 % Critically low 20.5-60.0 [facility] Comment on above: Performed By: #### C BC #### [facility] [address] [place] [address] Dr. Saray Souza MANUAL DIFF REQ NO Normal [facility] Comment on above: Performed By: #### C BC #### [facility] [address] [place] [address] Dr. Saray Souza MCH (RBC) [Entitic mass] 29.9 pg Normal 26.7-34.0 [facility] Comment on above: Performed By: #### C BC #### [facility] [address] [place] [address] Dr. Saray Souza MCHC (RBC) [Mass/Vol] 32.7 g/dL Normal 29.9-35.2 [facility] Comment on above: Performed By: #### C BC #### [facility] [address] [place] [address] Dr. Saray Souza MCV (RBC) [Entitic vol] 91.5 fL Normal 81.0-99.0 [facility] Comment on above: Performed By: #### C BC #### [facility] [address] [place] [address] Dr. Saray Souza MONO # 0.6 103/ul Normal 0.3-0.8 [facility] Comment on above: Performed By: #### C BC #### [facility] [address] [place] [address] Dr. Saray Souza Monocytes/100 WBC (Bld) 8.3 % Normal 1.7-12.0 [facility] Comment on above: Performed By: #### C BC #### [facility] [address] [place] [address] Dr. Saray Souza NEUT # 5.5 103/ul Normal 1.4-6.5 [facility] Comment on above: Performed By: #### C BC #### [facility] [address] [place] [address] Dr. Saray Souza Neutrophils/100 WBC (Bld) 70.8 % Normal 43.0-75.0 [facility] Comment on above: Performed By: #### C BC #### [facility] [address] [place] [address] Dr. Saray Souza Platelet mean volume (Bld) [Entitic vol] 9.0 fL Critically low 9.5-13.5 [facility] Comment on above: Performed By: #### C BC #### [facility] [address] [place] [address] Dr. Saray Souza PLT 271 103/ul Normal 150-450 [facility] Comment on above: Performed By: #### C BC #### [facility] [address] [place] [address] Dr. Saray Souza RBC 4.58 106/ul Normal 4.20-5.40 [facility] Comment on above: Performed By: #### C BC #### [facility] [address] [place] [address] Dr. Saray Souza WBC 7.7 103/ul Normal 4.0-11.0 [facility] Comment on above: Performed By: #### C BC #### [facility] [address] [place] [address] Dr. Saray Souza FREE THYROXINE INDEX T7on FTI 2.56 Normal 1.30-4.50 [facility] Comment on above: Performed By: #### I NSULIN #### [facility] [address] [place] [address] Dr. Saray Sozua T3U 36.0 % Normal 30.0-39.0 [facility] Comment on above: Performed By: #### I NSULIN #### [facility] [address] [place] [address] Dr. Saray Souza T4 [Mass/Vol] 7.10 ug/dL Normal 4.80-13.90 [facility] Comment on above: Performed By: #### I NSULIN #### [facility] [address] [place] [address] Dr. Saray Souza IRONon 03-24-2023 Iron [Mass/Vol] 130.0 ug/dL Normal 50.0-170.0 [facility] Comment on above: Performed By: #### C EDGARDO #### [facility] [address] [place] [address] Dr. Saray Souza PROF 14(COMP METB)on 023 Albumin [Mass/Vol] 3.8 g/dL Normal 3.4-5.0 [facility] Comment on above: Performed By: #### I NSULIN #### [facility] [address] [place] [address] Dr. Saray Souza Albumin/Globulin [Mass ratio] 1.2 {ratio} Normal [facility] Comment on above: Performed By: #### I NSULIN #### [facility] [address] [place] [address] Dr. Saray Souza ALP [Catalytic activity/Vol] 82 U/L Normal 46-116 [facility] Comment on above: Performed By: #### I NSULIN #### [facility] [address] [place] [address] Dr. Saray Souza ALT [Catalytic activity/Vol] 25 U/L Normal 14-59 [facility] Comment on above: Performed By: #### I NSULIN #### [facility] [address] [place] [address] Dr. Saray Souza Anion gap [Moles/Vol] 12.7 mmol/L Normal [facility] Comment on above: Performed By: #### I NSULIN #### [facility] [address] [place] [address] Dr. Saray Souza AST [Catalytic activity/Vol] 19 U/L Normal 15-37 [facility] Comment on above: Performed By: #### I NSULIN #### [facility] [address] [place] [address] Dr. Saray Souza Bilirubin [Mass/Vol] 0.3 mg/dL Normal 0.2-1.0 [facility] Comment on above: Performed By: #### I NSULIN #### [facility] [address] [place] [address] Dr. Saray Souza Calcium [Mass/Vol] 8.8 mg/dL Normal 8.5-10.1 [facility] Comment on above: Performed By: #### I NSULIN #### [facility] [address] [address] [address] Saray Souza Chloride [Moles/Vol] 101 mmol/L Normal 98-107 [facility] Comment on above: Performed By: #### I NSULIN #### [facility] [address] [address] [address] Saray Souza CO2 [Moles/Vol] 27.3 mmol/L Normal 21.0-32.0 [facility] Comment on above: Performed By: #### I NSULIN #### [facility] [address] [place] [address] Dr. Saray Souza Creatinine [Mass/Vol] 0.69 mg/dL Normal 0.55-1.02 [facility] Comment on above: Performed By: #### I NSULIN #### [facility] [address] [address] [address] Saray Souza EGFR-AF CUBAN >60 Normal >=60 [facility] Comment on above: Performed By: #### I NSULIN #### [facility] [address] [place] [address] Dr. Saray Souza EGFR-NON AF CUBAN >60 Normal >=60 [facility] Comment on above: Performed By: #### I NSULIN #### [facility] [address] [place] [address] Dr. Saray Souza Globulin (S) [Mass/Vol] 3.3 g/dL Normal [facility] Comment on above: Performed By: #### I NSULIN #### [facility] [address] [address] [address] Saray Souza Glucose [Mass/Vol] 83 mg/dL Normal 74-106 [facility] Comment on above: Performed By: #### I NSULIN #### [facility] [address] [place] [address] Dr. Saray oSuza Potassium [Moles/Vol] 4.0 mmol/L Normal 3.5-5.1 [facility] Comment on above: Performed By: #### I NSULIN #### [facility] [address] [address] [address] Saray Souza Protein [Mass/Vol] 7.1 g/dL Normal 6.4-8.2 [facility] Comment on above: Performed By: #### I NSULIN #### [facility] [address] [address] [address] Saray Souza Sodium [Moles/Vol] 137 mmol/L Normal 136-145 [facility] Comment on above: Performed By: #### I NSULIN #### [facility] [address] [place] [address] Dr. Saray Souza Urea nitrogen [Mass/Vol] 10.0 mg/dL Normal 7.0-18.0 [facility] Comment on above: Performed By: #### I NSULIN #### [facility] [address] [place] [address] Dr. Saray Souza Urea nitrogen/Creatinine [Mass ratio] 14.5 mg/mg Normal [facility] Comment on above: Performed By: #### I NSULIN #### [facility] [address] [place] [address] Dr. Saray Souza TSHon 02-13-2023 TSH 2.745 uIU/mL Normal 0.358-3.740 [facility] Comment on above: Performed By: #### I NSULIN #### [facility] [address] [place] [address] Dr. Saray Souza AMYLASEon 02-04-2023 Amylase [Catalytic activity/Vol] 45 U/L Normal 25-115 [facility] Comment on above: Performed By: #### T SH, CMP, HSTROPN, LIPA, LINDA #### [facility] [address] [place] [address] Dr. Saray Souza CBC AUTO DIFFon 02-04-2023 BASO # 0.0 103/ul Normal 0.0-0.1 [facility] Comment on above: Performed By: #### C BC #### [facility] [address] [place] [address] Dr. Saray Souza Basophils/100 WBC (Bld) 0.4 % Normal 0.2-2.0 [facility] Comment on above: Performed By: #### C BC #### [facility] [address] [place] [address] Dr. Saray Souza EO # 0.1 103/ul Normal 0.0-0.7 [facility] Comment on above: Performed By: #### C BC #### [facility] [address] [place] [address] Dr. Saray Souza Eosinophils/100 WBC (Bld) 1.7 % Normal 0.9-7.0 [facility] Comment on above: Performed By: #### C BC #### [facility] [address] [place] [address] Dr. Saray Souza Erythrocyte distribution width (RBC) [Ratio] 12.0 % Normal 11.0-15.0 [facility] Comment on above: Performed By: #### C BC #### [facility] [address] [place] [address] Dr. Saray Souza Hematocrit (Bld) [Volume fraction] 42.3 % Normal 36.0-48.0 [facility] Comment on above: Performed By: #### C BC #### [facility] [address] [place] [address] Dr. Saray Souza Hemoglobin (Bld) [Mass/Vol] 13.9 g/dL Normal 12.0-16.0 [facility] Comment on above: Performed By: #### C BC #### [facility] [address] [place] [address] Dr. Saray Souza IG # 0.03 10e3/ul Normal 0.00-0.03 [facility] Comment on above: Performed By: #### C BC #### [facility] [address] [place] [address] Dr. Saray Souza IG % 0.4 % Normal 0.0-0.5 [facility] Comment on above: Performed By: #### C BC #### [facility] [address] [place] [address] Dr. Saray Souza LYMPH # 1.5 103/ul Normal 1.2-3.8 [facility] Comment on above: Performed By: #### C BC #### [facility] [address] [place] [address] Dr. Saray Souza Lymphocytes/100 WBC (Bld) 20.4 % Critically low 20.5-60.0 [facility] Comment on above: Performed By: #### C BC #### [facility] [address] [place] [address] Dr. Saray Souza MANUAL DIFF REQ NO Normal [facility] Comment on above: Performed By: #### C BC #### [facility] [address] [place] [address] Dr. Saray Souza MCH (RBC) [Entitic mass] 30.0 pg Normal 26.7-34.0 [facility] Comment on above: Performed By: #### C BC #### [facility] [address] [place] [address] Dr. Saray Souza MCHC (RBC) [Mass/Vol] 32.9 g/dL Normal 29.9-35.2 [facility] Comment on above: Performed By: #### C BC #### [facility] [address] [place] [address] Dr. Saray Souza MCV (RBC) [Entitic vol] 91.2 fL Normal 81.0-99.0 [facility] Comment on above: Performed By: #### C BC #### [facility] [address] [place] [address] Dr. Saray Souza MONO # 0.6 103/ul Normal 0.3-0.8 [facility] Comment on above: Performed By: #### C BC #### [facility] [address] [place] [address] Dr. Saray Souza Monocytes/100 WBC (Bld) 7.7 % Normal 1.7-12.0 [facility] Comment on above: Performed By: #### C BC #### [facility] [address] [place] [address] Dr. Saray Souza NEUT # 5.2 103/ul Normal 1.4-6.5 [facility] Comment on above: Performed By: #### C BC #### [facility] [address] [place] [address] Dr. Saray Souza Neutrophils/100 WBC (Bld) 69.4 % Normal 43.0-75.0 [facility] Comment on above: Performed By: #### C BC #### [facility] [address] [place] [address] Dr. Saray Souza Platelet mean volume (Bld) [Entitic vol] 9.0 fL Critically low 9.5-13.5 [facility] Comment on above: Performed By: #### C BC #### [facility] [address] [place] [address] Dr. Saray Souza PLT 292 103/ul Normal 150-450 [facility] Comment on above: Performed By: #### C BC #### [facility] [address] [place] [address] Dr. Saray Souza RBC 4.64 106/ul Normal 4.20-5.40 [facility] Comment on above: Performed By: #### C BC #### [facility] [address] [place] [address] Dr. Saray Souza WBC 7.5 103/ul Normal 4.0-11.0 [facility] Comment on above: Performed By: #### C BC #### [facility] [address] [place] [address] Dr. Saray Souza CULTURE URINEon 02-04-2023 CULTURE URINE Culture Observations : LIGHT GROWTH OF MIXED GENITAL CARMELO. NO POTENTIAL PATHOGENS SEEN. Normal [facility] Comment on above: Performed By: #### C BC #### [facility] [address] [place] [address] Dr. Saray Souza ER URINE PROFILEon 3 Bilirubin Ql (U) Negative Normal NEGATIVE [facility] Comment on above: Performed By: #### C BC #### [facility] [address] [place] [address] Dr. Saray Souza Clarity (U) CLEAR Normal CLEAR [facility] Comment on above: Performed By: #### C BC #### [facility] [address] [address] [address] Saray Souza Color (U) LT. YELLOW Normal YELLOW [facility] Comment on above: Performed By: #### C BC #### [facility] [address] [address] [address] Saray Souza ERUAHD A micrscopic examination will be performed if indicated. Normal [facility] Comment on above: Performed By: #### C BC #### [facility] [address] [address] [address] Saray Souza Glucose Ql (U) Negative Normal NEGATIVE [facility] Comment on above: Performed By: #### C BC #### [facility] [address] [place] [address] Dr. Saray Souza Hemoglobin Ql (U) Negative Normal NEGATIVE [facility] Comment on above: Performed By: #### C BC #### [facility] [address] [place] [address] Dr. Saray Souza Ketones Ql (U) Negative Normal NEGATIVE [facility] Comment on above: Performed By: #### C BC #### [facility] [address] [place] [address] Dr. Saray Souza LEUKOCYTES MODERATE Abnormal NEGATIVE [facility] Comment on above: Performed By: #### C BC #### [facility] [address] [place] [address] Dr. Saray Souza Nitrite Ql (U) Negative Normal NEGATIVE [facility] Comment on above: Performed By: #### C BC #### [facility] [address] [place] [address] Dr. Saray Souza pH (U) 5.5 [pH] Normal 5-9 [facility] Comment on above: Performed By: #### C BC #### [facility] [address] [place] [address] Dr. Saray Souza SPEC GRAVITY >=1.030 Abnormal 1.005-<=1.025 [facility] Comment on above: Performed By: #### C BC #### [facility] [address] [place] [address] Dr. Saray Souza UA PROTEIN Negative Normal NEGATIVE/ TRACE [facility] Comment on above: Performed By: #### C BC #### [facility] [address] [place] [address] Dr. Saray Souza UR MICRO IND INDICATED Normal [facility] Comment on above: Performed By: #### C BC #### [facility] [address] [place] [address] Dr. Saary Souza Urobilinogen Qn (U) 0.2 {Janine'U}/dL Normal 0.2 - 1. 0 [facility] Comment on above: Performed By: #### C BC #### [facility] [address] [place] [address] Dr. Saray Souza LIPASEon 02-04-2023 Lipase [Catalytic activity/Vol] 97.0 U/L Normal 73.0-393.0 [facility] Comment on above: Performed By: #### T SH, CMP, HSTROPN, LIPA, LINDA #### [facility] [address] [place] [address] Dr. Saray Souza URon 02-04-2023 , QUAL Negative Normal NEGATIVE [facility] Comment on above: Performed By: #### C BC #### [facility] [address] [place] [address] Dr. Saray Souza PROF 14(COMP METB)on 023 Albumin [Mass/Vol] 3.5 g/dL Normal 3.4-5.0 [facility] Comment on above: Performed By: #### T SH, CMP, HSTROPN, LIPA, LINDA #### [facility] [address] [place] [address] Dr. Saray Souza Albumin/Globulin [Mass ratio] 1.2 {ratio} Normal [facility] Comment on above: Performed By: #### T SH, CMP, HSTROPN, LIPA, LINDA #### [facility] [address] [place] [address] Dr. Saray Souza ALP [Catalytic activity/Vol] 78 U/L Normal 46-116 [facility] Comment on above: Performed By: #### T SH, CMP, HSTROPN, LIPA, LINDA #### [facility] [address] [place] [address] Dr. Saray Souza ALT [Catalytic activity/Vol] 24 U/L Normal 14-59 [facility] Comment on above: Performed By: #### T SH, CMP, HSTROPN, LIPA, LINDA #### [facility] [address] [place] [address] Dr. Saray Souza Anion gap [Moles/Vol] 7.9 mmol/L Normal [facility] Comment on above: Performed By: #### T SH, CMP, HSTROPN, LIPA, LINDA #### [facility] [address] [place] [address] Dr. Saray Souza AST [Catalytic activity/Vol] 16 U/L Normal 15-37 [facility] Comment on above: Performed By: #### T SH, CMP, HSTROPN, LIPA, LINDA #### [facility] [address] [place] [address] Dr. Saray Souza Bilirubin [Mass/Vol] 0.3 mg/dL Normal 0.2-1.0 [facility] Comment on above: Performed By: #### T SH, CMP, HSTROPN, LIPA, LINDA #### [facility] [address] [place] [address] Dr. Saray Souza Calcium [Mass/Vol] 8.6 mg/dL Normal 8.5-10.1 [facility] Comment on above: Performed By: #### T SH, CMP, HSTROPN, LIPA, LINDA #### [facility] [address] [place] [address] Dr. Saray Souza Chloride [Moles/Vol] 105 mmol/L Normal 98-107 [facility] Comment on above: Performed By: #### T SH, CMP, HSTROPN, LIPA, LINDA #### [facility] [address] [place] [address] Dr. Saray Souza CO2 [Moles/Vol] 28.9 mmol/L Normal 21.0-32.0 [facility] Comment on above: Performed By: #### T SH, CMP, HSTROPN, LIPA, LINDA #### [facility] [address] [address] [address] Saray Souza Creatinine [Mass/Vol] 0.67 mg/dL Normal 0.55-1.02 [facility] Comment on above: Performed By: #### T SH, CMP, HSTROPN, LIPA, LINDA #### [facility] [address] [place] [address] Dr. Saray Souza EGFR-AF CUBAN >60 Normal >=60 [facility] Comment on above: Performed By: #### T SH, CMP, HSTROPN, LIPA, LINDA #### [facility] [address] [place] [address] Dr. Saray Souza EGFR-NON AF CUBAN >60 Normal >=60 [facility] Comment on above: Performed By: #### T SH, CMP, HSTROPN, LIPA, LINDA #### [facility] [address] [place] [address] Dr. Saray Souza Globulin (S) [Mass/Vol] 3.0 g/dL Normal [facility] Comment on above: Performed By: #### T SH, CMP, HSTROPN, LIPA, LINDA #### [facility] [address] [place] [address] Dr. Saray Souza Glucose [Mass/Vol] 97 mg/dL Normal 74-106 [facility] Comment on above: Performed By: #### T SH, CMP, HSTROPN, LIPA, LINDA #### [facility] [address] [place] [address] Dr. Saray Souza Potassium [Moles/Vol] 3.8 mmol/L Normal 3.5-5.1 [facility] Comment on above: Performed By: #### T SH, CMP, HSTROPN, LIPA, LINDA #### [facility] [address] [place] [address] Dr. Saray Souza Protein [Mass/Vol] 6.5 g/dL Normal 6.4-8.2 [facility] Comment on above: Performed By: #### T SH, CMP, HSTROPN, LIPA, LINDA #### [facility] [address] [address] [address] Saray Souza Sodium [Moles/Vol] 138 mmol/L Normal 136-145 [facility] Comment on above: Performed By: #### T SH, CMP, HSTROPN, LIPA, LINDA #### [facility] [address] [place] [address] Dr. Saray Souza Urea nitrogen [Mass/Vol] 13.0 mg/dL Normal 7.0-18.0 [facility] Comment on above: Performed By: #### T SH, CMP, HSTROPN, LIPA, LINDA #### [facility] [address] [place] [address] Dr. Saray Souza Urea nitrogen/Creatinine [Mass ratio] 19.4 mg/mg Normal [facility] Comment on above: Performed By: #### T SH, CMP, HSTROPN, LIPA, LINDA #### [facility] [address] [place] [address] Dr. Saray Souza TROPONIN, HIGH SENSITIVITYon 02-04-2023 HSTROP 4.0 pg/mL Normal 4.0-51.3 [facility] Comment on above: Result Comment: CUT- OFF POINTS HAVE BEEN ESTABLISHED BASED ON THE FOURTH UNIVERSAL DEFINITIONS OF MYOCARDIAL INFARCTION. THE UPPER REFERENCE LIMIT (URL) OF TROPONIN, DEFINED THE 99TH PERCENTILE OF cTnI DISTRIBUTION IN A REFERENCE POPULATION, HAS BEEN CONFIRMED THE DECISION THRESHOLD FOR SD DIAGNOSIS. Performed By: #### T SH, CMP, HSTROPN, LIPA, LINDA #### [facility] [address] [place] [address] Dr. Saray Souza TSHon 02-04-2023 TSH 2.478 uIU/mL Normal 0.358-3.740 [facility] Comment on above: Performed By: #### T SH, CMP, HSTROPN, LIPA, LINDA #### [facility] [address] [place] [address] Dr. Saray Souza URINE MICROSCOPIC ONLYon BACTERIA MODERATE Abnormal NONE SEEN [facility] Comment on above: Performed By: #### C BC #### [facility] [address] [place] [address] Dr. Saray Souza Bacteria identified Cx Nom (U) INDICATED Normal [facility] Comment on above: Performed By: #### C BC #### [facility] [address] [place] [address] Dr. Saray Souza CAST NONE SEEN Normal NONE SEEN [facility] Comment on above: Performed By: #### C BC #### [facility] [address] [place] [address] Dr. Saray Souza Crystals LM Nom (Urine sed) NONE SEEN Normal NONE SEEN [facility] Comment on above: Performed By: #### C BC #### [facility] [address] [place] [address] Dr. Saray Souza Epithelial cells LM Ql (Urine sed) MODERATE Abnormal NONE SEEN /RARE [facility] Comment on above: Performed By: #### C BC #### [facility] [address] [place] [address] Dr. Saray Souza MUCOUS NONE SEEN Normal NONE SEEN [facility] Comment on above: Performed By: #### C BC #### [facility] [address] [place] [address] Dr. Saray Souza RBC 5-10 Abnormal 0-2 [facility] Comment on above: Performed By: #### C BC #### [facility] [address] [place] [address] Dr. Saray Souza WBC 10-20 Abnormal NONE SEEN [facility] Comment on above: Performed By: #### C BC #### [facility] [address] [place] [address] Dr. Saray Souza Covid-19 PCR (CVDTB)on 09-24 SARS-CoV-2 (COVID-19) RNA DAYDAY+probe Ql (Unsp spec) Not detected Normal NOT DETECTED [facility] Comment on above: Result Comment: When [...] for this test is supported by the [place] of Health and Human Service's declaration that [...] used). Performed By: #### C BC #### [facility] [address] [place] [address] Dr. Saray Souza INFLUENZA A AND B [facility] [place] 10-20 [facility] SEE BELOW Normal [facility] Comment on above: Result Comment: Nega tive for Flu A protein angiten. Infection due to Flu A cannot be ruled out. Flu A angiten in the sample may be below the detection limit of the test. Performed By: #### C BC #### [facility] [address] [place] [address] Dr. Saray Sou[facility] SEE BEL[facility] Normal [facility] Comment on above: Result Comment: Nega tive for Flu B protein antigen. Infection due to Flu B cannot be ruled out. Flu B antigen in the sample may be below the detection limit of the test. Performed By: #### C BC #### [facility] [address] [place] [address] Dr. Saray Souza INFLUENZA A AG Negative Normal NEGATIVE SEE COMMENT [facility] Comment on above: Performed By: #### C BC #### [facility] [address] [place] [address] Dr. Saray Souza INFLUENZA B AG Negative Normal NEGATIVE SEE COMMENT [facility] Comment on above: Performed By: #### C BC #### [facility] [address] [place] [address] Dr. Saray Souza INTERNAL CONTROLS Within Normal Limits Normal Wi thin Normal Limits [facility] Comment on above: Performed By: #### C BC #### [facility] [address] [place], [place] [address] Dr. Saray Souza STREPT SCREENon 10-20-2022 STREP SCREEN A Positive Abnormal NEGATIVE [facility] Comment on above: Performed By: #### C BC #### [facility] [address] [place], [place] [address] Dr. Saray Souza XR SHOULDER RT INJon [...] ADRIANA MENDEZ Date: 2022-07-18 17:05 Normal [facility] MRI SHOULDER RT WO CONon MRI [...] by: ADRIANA MENDEZ Date: 2022-07-10 10:10 Normal [facility] XR ARTHRO SHLD RTon 07-10-20 XR [...] by: ADRIANA MENDEZ Date: 2022-07-10 10:01 Normal [facility] No Panel Informationon 03-18 Right Eye Reliability was good. Findings include normal observations. Left Eye Reliability was good. Findings include normal observations. Notes I personally reviewed the visual zaldivar performed by this patient on 03/18/22. The visual zaldivar are normal OU with good fixation. Francisco Ayers MD [facility] Radiology Study observation (narrative) [facility] Progress Noteson 03-18-2022 Hand Tool Filer Authentication Interface Message Text Referred by Retina [...] Hair) regarding headaches-- will fax information to [phone] - Offered referral to neurology, patient prefers [...] her PCP. Francisco Ayers MD Normal [facility] Ambulatory Clinical Summaryo n 10-09-2021 Ambulatory Clinical Summary {[id number]}CD:[id number] Normal [facility] General Surgery Office/Clini c Noteon 10-09-2021 [...] Crystal Only if needed [address] [place] [address]- Additional Instructions: Problem List/Past Medical History Ongoing [...] SARS-CoV-2 (COVID-19) mRNA-1273 vaccine 03/18/2021 Recorded Normal [facility] Comment on above: Result Comment: Elec tronically Signed By: RUTH CLARK, Yonis Mckenzie\.br\Date and Time Signed: 10/09/21 15:14 EST Pathology Noteon 10-04-2021 Pathology Note [id number]. 00CD:127 Normal [facility] Operative Reporton Operative Report [id number] 0CD:127 Normal [facility] ECG 12-Leadon 10-02-2021 ECG 12-Lead [id number] 0CD:127 Normal [facility] Lab Reportson 10-02-2021 Lab Reports [id number] 0CD:127 Normal [facility] Consent for Procedure/Surger yon 10-01-2021 Consent for Procedure/Surgery [id number] 0CD:127 Normal [facility] Ambulatory Clinical Summaryo n 09-30-2021 Ambulatory Clinical Summary {[id number]}CD:[id number] Normal [facility] General Surgery Office/Clini c Noteon 09-30-2021 [...] to bid with some improvement; seen in [facility] ED 2 days ago, abd [...] SARS-CoV-2 (COVID-19) mRNA-1273 vaccine 03/18/2021 Recorded Normal [facility] Comment on above: Result Comment: Elec tronically Signed By: RUTH CLARK, Yonis Mckenzie\gaby\Date and Time Signed: 09/30/21 21:20 EST Outside Radiologyon 09-30-20 21 Outside Radiology [id number] 0CD:127 Normal [facility] [place] [facility] [place] Provider Letter [facility] [place] [place] September 25, 2021 DANIEL CELAYA, [address], [place] [address] Re: ROSALIE FREEMAN Date of : 1995 Thank you for your referral of Rosalie Freeman who was seen on consultation on 09/20/2021 for 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 I have enclosed my consultation note for your review. I will be happy to follow Rosalie should her symptoms persist. Sincerely, Yonis Carney MD General Surgery Normal [facility] Ambulatory Clinical Summaryo n 09-20-2021 Ambulatory Clinical Summary {[id number]}CD:[id number] Normal [facility] ED Note-Physicianon 09-20-20 21 ED Note-Physician [id number] 0CD:127 Normal [facility] Physician Referralon 021 Physician Referral [id number] 0CD:127 Normal [facility] RAD - Ultrasound Reporton RAD - Ultrasound Report [id number] 0CD:127 Normal [facility] Cytologyon 12-20-2018 Cytology (NOTE) [id number] [employer] [facility] PATHOLOGISTS [facility] ANATOMIC PATHOLOGY [address] [place] [address]. [place], [place] [address] GYNECOLOGIC CYTOLOGY REPORT Patient Name: ROSALIE FREEMAN V. 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 - Endocervical/transform ation zone component present. - Scant cellularity; predominantly blood. Descriptive Diagnosis: Negative for intraepithelial lesion or malignancy. Surface Water Manager: KANCHAN Mendoza(ASCP) Electronically Signed Out donna/01/03/2019 [facility] Comment on above: Performed By: #### P PPVP #### [employer] [address] [place] [address] Hammerer Helper: Vega Wilkerson MD Vital Signs Date Time Vital Sign Value Performing Clinician Facility 11-19-2021 15:30-0500 Body height 180.34 cm Nandini Scarlett Other [employer] Other 11-19-2021 15:30-0500 Body mass index (BMI) [Ratio] 41.56 kg/m2 Nandini Scarlett Other [employer] Other 11-19-2021 15:30-0500 Body weight 135.17 kg Nandini Scarlett Other [employer] Other 11-19-2021 15:30-0500 Diastolic blood pressure 76 mm[Hg] Nandini Pantoja Other [employer] Other 11-19-2021 15:30-0500 Systolic blood pressure 128 mm[Hg] Nandini Scarlett Other [employer] Other Encounters Encounter Date Encounter Type Care Provider Facility Start: 04-17-2023 End: 04-17-2023 ambulatory SALMA MONET . Facility:[facility] Start: 04-06-2023 End: 04-07-[address] MELODIE HARGROVE . Facility:[facility] Start: 04-04-2023 Encounter for genera l adult medical examination without abnormal findings DR MELODIE HARGROVE . [facility] Start: 04-03-2023 End: 04-04-[address] [...] 11-19-2021 End: 11-19-2021 ambulatory Nandini Pantoja Other [employer] Other Start: 11-19-2021 Office outpatient ne w 30 minutes Nandini Pantoja [facility] G[facility] Start: 12-20-2018 End: 12-21-2018 Patient encounter procedure ANDRESSA ESCALANTE [facility] Procedures Date Procedure Procedure Detail Performing [...] Hepatitis C screening Hepatitis C An tibody [facility] Start: 2011 Tetanus + diphtheria + acellular pertussis vaccine (product) Tdap Booster [facility] Start: 2008 HIV screening HIV Test [facility] Start: 1998 COVID-19 Vaccine (1) COVID-19 Vaccin e (1) [facility] Immunizations Immunization Date Immunization Notes Care Provider Fa jessica 03-21-2014 influenza virus vacc ine, unspecified formulation Estella Guerrero MD Work Phone: [facility] Payers Date Payer Category Payer Unknown [facility] [employer] [id number] 2017-Present [id number] 1995 Unknown [id number] [id number] 1995 Unknown [id number] [id number] 1993 Unknown [id number] 2.16.840.1.943741.3.579.2.593 1993 Unknown [id number] 2.16.840.1.703483.3.579.2.593 1993 Unknown [id number] 2.16.840.1.181522.3.579.2.593 1993 Unknown [id number] 2.16.840.1.380439.3.579.2.593 1993 Unknown [id number] 2.16.840.1.823929.3.579.2.593 1993 Unknown [id number] 2.16.840.1.305218.3.579.2.593 1993 Unknown [id number] 2.16.840.1.433793.3.579.2.593 1993 Unknown [id number] 2.16.840.1.733446.3.579.2.593 1993 Unknown [id number] 2.16.840.1.019403.3.579.2.593 1993 Unknown [id number] 2.16.840.1.273616.3.579.2.593 1993 Unknown [id number] 2.16.840.1.911682.3.579.2.593 1993 Unknown [id number] 2.16.840.1.418375.3.579.2.593 1959 Unknown [id number] Social History Date Type Detail Facility Tobacco smoking status [facility] Tobacco smoking consumption unknown [employer] Other Start: 1995 Sex Assigned At Not on file [facility] Clinical Note 05-13-2022 Note Date & Type Note Facility 05-13-2022 Note PROCEDURE: XR SHOULD ER RT 2V or > COMPARISON: None. HISTORY: Pain of right shoulder joint FINDINGS: BONES:No fracture, acute abnormality, or significant arthropathy. SOFT TISSUES:Negative. No visible soft tissue swelling. EFFUSION:None visible. OTHER: Negative. IMPRESSION: Normal examination. Electronically authenticated by: NANDINI MAYER Date: 2022-05-13 08:41 [facility] History of Present illness Narrative 03-18-2022 [...] Hair) regarding headaches-- will fax information to [phone] - Offered referral to neurology, patient prefers [...] Francisco Ayers MD documented in this encounter [facility] History of Present illness Narrative 03-18-2022 Francisco [...] Hair) regarding headaches-- will fax information to [phone] - Offered referral to neurology, patient prefers [...] Francisco Ayers MD documented in this encounter [facility] Clinical Note 09-23-2021 Note Date & Type Note Facility 09-23-2021 Note Chief Complaint consultation for epigastric pain HPI Staff 26 year old female presents on consultation from Kate Celaya PHOTO PRINT SPECIALIST for 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 RUQ US completed 09/19 [...] Pantoprazole 40 mg (more content not included)... [facility] Comment on above: Result Comment: Elec tronically Signed By: RUTH CLARK, Yonis Cardenas\Date and Time Signed: 09/23/21 21:36 EDT Clinical Note 09-23-2021 Note Date & Type Note Facility 09-23-2021 Note Chief Complaint consultation for epigastric pain HPI Staff 26 year old female presents on consultation from Kate Celaya PHOTO PRINT SPECIALIST for 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 RUQ US completed 09/19 [...] - Denies Alcoho (more content not included)... [facility] Comment on above: Result Comment: Elec [...] Date & Type Note Facility Evaluation note [facility] [employer] Other History general Narrative - Reported Note Date & Type Note Facility History general Narrative - Reported [facility] [employer] Other Summary Purpose Family History No Family [...] DATE CREATED AUTHOR AUTHOR'S ORGANIZ ATION 11/09/2021 [facility] DATE CREATED AUTHOR AUTHOR'S ORGANIZ ATION [...] BE BASED ON THE PRIMARY CLINICAL RECORDS. [facility] [employer] [facility]. provides no warranty or guarantee of the accuracy or completeness of information in this document.
--- OUTSIDE RECORDS SUMMARY | 2023-12-03 11:53 | XMS_ITS | CCD ---
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 Role Phone ANDRESSA ESCALANTE Referring [...] Date of Onset Reaction(s) Facility (1 source) [facility]; Translations: [[facility]] Propensity to adverse reactions (disorder) 0 [facility] Medications Current Medications Medication [...] Other [facility] (current) drug therapy; Translations: [OTH [facility] CURRENT DRUG THERAPY] Onset: 3 Episodic Other [...] (Bld) [Mass/Vol] 246.0 pg/mL Normal <=450.0 [facility] Comment on above: Performed By: #### I NSULIN #### [facility] [address] [place] [address] Dr. Saray Souza CARDIAC NELI ADMITon 023 CK [Catalytic activity/Vol] 47 U/L Normal 26-192 [facility] Comment on above: Performed By: #### I CURLYULIN #### [facility] [address] [place] [address] Dr. Saray Souza CK.MB [Mass/Vol] 1.02 ng/mL Normal <=3.60 [facility] Comment on above: Performed By: #### I CURLYULIN #### [facility] [address] [place] [address] Dr. Saray Souza HSTROP 4.5 pg/mL Normal 4.0-51.3 [facility] Comment on above: Result Comment: CUT- OFF POINTS HAVE BEEN ESTABLISHED BASED ON THE FOURTH UNIVERSAL DEFINITIONS OF MYOCARDIAL INFARCTION. THE UPPER REFERENCE LIMIT (URL) OF TROPONIN, DEFINED THE 99TH PERCENTILE OF cTnI DISTRIBUTION IN A REFERENCE POPULATION, HAS BEEN CONFIRMED THE DECISION THRESHOLD FOR CO DIAGNOSIS. Performed By: #### I NSULIN #### [facility] [address] [place] [address] Dr. Saray Souza FRANKLIN 36 ng/mL Normal 9-82 [facility] Comment on above: Performed By: #### I CURLYULIN #### [facility] [address] [address] [address] Saray Souza CBC W MANUAL DIFFon 04-17-20 23 ATYPICAL LYMPH # Normal [facility] Comment on above: Performed By: #### C EDGARDO #### [facility] [address] [place] [address] Dr. Saray Souza ATYPICAL LYMPH % Normal [facility] Comment on above: Performed By: #### C BCMAN #### [facility] [address] [place] [address] Dr. Saray Souza BAND # 0.3 103/ul Normal 0.0-0.3 [facility] Comment on above: Performed By: #### C EDGARDO #### [facility] [address] [place] [address] Dr. Saray Souza BAND % 1 % Normal 0-5 [facility] Comment on above: Performed By: #### C BCPRESLEY #### [facility] [address] [place] [address] Dr. Saray Souza BASOM # 0.00 103/ul Normal 0.00-0.10 [facility] Comment on above: Performed By: #### C BCPRESLEY #### [facility] [address] [place] [address] Dr. Saray Souza BASOM % 0.0 % Critically low 0.2-2.0 [facility] Comment on above: Performed By: #### C BCMAN #### [facility] [address] [place] [address] Dr. Saray Souza BLAST # Normal [facility] Comment on above: Performed By: #### C EDGARDO #### [facility] [address] [place] [address] Dr. Saray Souza BLAST % Normal [facility] Comment on above: Performed By: #### C EDGARDO #### [facility] [address] [place] [address] Dr. Saray Souza CORRECTED WBC Normal 4.0-11.0 [facility] Comment on above: Performed By: #### C EDGARDO #### [facility] [address] [place] [address] Dr. Saray Souza EOS # 0.00 103/ul Normal 0.00-0.70 [facility] Comment on above: Performed By: #### C EDGARDO #### [facility] [address] [place] [address] Dr. Saray Souza EOS% 0.0 % Critically low 0.9-7.0 [facility] Comment on above: Performed By: #### C BCPRESLEY #### [facility] [address] [place] [address] Dr. Saray Souza HCT 43.6 % Normal 36.0-48.0 [facility] Comment on above: Performed By: #### C EDGARDO #### [facility] [address] [place] [address] Dr. Saray Souza HGB 14.7 g/dl Normal 12.0-16.0 [facility] Comment on above: Performed By: #### C EDGARDO #### [facility] [address] [address] [address] Saray Souza LYMPHM # 1.55 103/ul Normal 1.20-3.80 [facility] Comment on above: Performed By: #### C EDGARDO #### [facility] [address] [address] [address] Saray Souza LYMPHM% 6.0 % Critically low 20.5-60.0 [facility] Comment on above: Performed By: #### C EDGARDO #### [facility] [address] [address] [address] Saray Souza MCH 30.3 pg Normal 26.7-34.0 [facility] Comment on above: Performed By: #### C EDGARDO #### [facility] [address] [place] [address] Dr. Saray Souza MCHC 33.7 g/dl Normal 29.9-35.2 [facility] Comment on above: Performed By: #### Sweetie REYNOSO #### [facility] [address] [place] [address] Dr. Saray Souza MCV 89.9 fL Normal 81.0-99.0 [facility] Comment on above: Performed By: #### C EDGARDO #### [facility] [address] [place] [address] Dr. Saray Souza METAMYELOCYTE # Normal [facility] Comment on above: Performed By: #### Sweetie REYNOSO #### [facility] [address] [place] [address] Dr. Saray Souza METAMYELOCYTE % Normal [facility] Comment on above: Performed By: #### C EDGARDO #### [facility] [address] [place] [address] Dr. Saray Souza MONOM# 2.06 103/ul Critically high 0.30-0.80 [facility] Comment on above: Performed By: #### Sweetie REYNOSO #### [facility] [address] [place] [address] Dr. Saray Souza MONOM% 8.0 % Normal 1.7-12.0 [facility] Comment on above: Performed By: #### C EDGARDO #### [facility] [address] [place] [address] Dr. Saray Souza MPV 8.8 fL Critically low 9.5-13.5 [facility] Comment on above: Performed By: #### C BCPRESLEY #### [facility] [address] [place] [address] Dr. Saray Souza MYELOCYTE # Normal [facility] Comment on above: Performed By: #### C EDGARDO #### [facility] [address] [place] [address] Dr. Saray Souza MYELOCYTE % Normal [facility] Comment on above: Performed By: #### C EDGARDO #### [facility] [address] [place] [address] Dr. Saray Souza NRBC Normal [facility] Comment on above: Performed By: #### C EDGARDO #### [facility] [address] [place] [address] Dr. Saray Souza PLT 397 103/ul Normal 150-450 [facility] Comment on above: Performed By: #### C EDGARDO #### [facility] [address] [place] [address] Dr. Saray Souza RBC 4.85 106/ul Normal 4.20-5.40 [facility] Comment on above: Performed By: #### C EDGARDO #### [facility] [address] [place] [address] Dr. Saray Souza RDW 12.0 % Normal 11.0-15.0 [facility] Comment on above: Performed By: #### C BCPRESLEY #### [facility] [address] [place] [address] Dr. Saray Souza SEG # 21.93 103/ul Critically high 1.40-6.50 [facility] Comment on above: Performed By: #### C EDGARDO #### [facility] [address] [place] [address] Dr. Saray Souza SEG % 85.0 % Critically high 43.0-75.0 [facility] Comment on above: Performed By: #### C BCMAN #### [facility] [address] [place] [address] Dr. Saray Souza WBC 25.8 103/ul Critically high 4.0-11.0 [facility] Comment on above: Performed By: #### C BCMAN #### [facility] [address] [place] [address] Dr. Saray Souza CULTURE URINEon 04-17-2023 CULTURE URINE Culture Observations : LORENZO TO FOLLOW. Isolate 1 Enterococcus faecalis 20,000 cfu/mL of Normal [facility] Comment on above: Performed By: #### C BC #### [facility] [address] [place] [address] Dr. Saray Souza ER URINE PROFILEon 3 Bilirubin Ql (U) Negative Normal NEGATIVE [facility] Comment on above: Performed By: #### C BC #### [facility] [address] [place] [address] Dr. Saray Souza Clarity (U) CLEAR Normal CLEAR [facility] Comment on above: Performed By: #### C BC #### [facility] [address] [place] [address] Dr. Saray Souza Color (U) LT. YELLOW Normal YELLOW [facility] Comment on above: Performed By: #### C BC #### [facility] [address] [place] [address] Dr. Saray Souza [facility] A micrscopic examination will be performed if indicated. Normal [facility] Comment on above: Performed By: #### C BC #### [facility] [address] [place] [address] Dr. Saray Souza Glucose Ql (U) Negative Normal NEGATIVE [facility] Comment on above: Performed By: #### C BC #### [facility] [address] [place] [address] Dr. Saray Souza Hemoglobin Ql (U) Negative Normal NEGATIVE [facility] Comment on above: Performed By: #### C BC #### [facility] [address] [place] [address] Dr. Saray Souza Ketones Ql (U) Negative Normal NEGATIVE [facility] Comment on above: Performed By: #### C BC #### [facility] [address] [place] [address] Dr. Saray Souza LEUKOCYTES SMALL Abnormal NEGATIVE [facility] Comment on above: Performed By: #### C BC #### [facility] [address] [place] [address] Dr. Saray Souza Nitrite Ql (U) Negative Normal NEGATIVE [facility] Comment on above: Performed By: #### C BC #### [facility] [address] [place] [address] Dr. Saray Souza pH (U) 6.5 [pH] Normal 5-9 [facility] Comment on above: Performed By: #### C BC #### [facility] [address] [place] [address] Dr. Saray Souza SPEC GRAVITY 1.025 Normal 1.005-<=1.025 [facility] Comment on above: Performed By: #### C BC #### [facility] [address] [place] [address] Dr. Saray Souza UA PROTEIN Negative Normal NEGATIVE/ TRACE [facility] Comment on above: Performed By: #### C BC #### [facility] [address] [place] [address] Dr. Saray Souza UR MICRO IND INDICATED Normal [facility] Comment on above: Performed By: #### C BC #### [facility] [address] [place] [address] Dr. Saray Souza Urobilinogen Qn (U) 0.2 {Janine'U}/dL Normal 0.2 - 1. 0 [facility] Comment on above: Performed By: #### C BC #### [facility] [address] [place] [address] Dr. Saray Souza URon 04-17-2023 , QUAL Negative Normal NEGATIVE [facility] Comment on above: Performed By: #### C BC #### [facility] [address] [place] [address] Dr. Saray Souza PROF 14(COMP METB)on 023 Albumin [Mass/Vol] 3.0 g/dL Critically low 3.4-5.0 [facility] Comment on above: Performed By: #### I NSULIN #### [facility] [address] [place] [address] Dr. Saray Souza Albumin/Globulin [Mass ratio] 0.9 {ratio} Normal [facility] Comment on above: Performed By: #### I NSULIN #### [facility] [address] [place] [address] Dr. Saray Souza ALP [Catalytic activity/Vol] 54 U/L Normal 46-116 [facility] Comment on above: Performed By: #### I NSULIN #### [facility] [address] [place] [address] Dr. Saray Souza ALT [Catalytic activity/Vol] 27 U/L Normal 14-59 [facility] Comment on above: Performed By: #### I NSULIN #### [facility] [address] [place] [address] Dr. Saray Souza Anion gap [Moles/Vol] 12.9 mmol/L Normal [facility] Comment on above: Performed By: #### I NSULIN #### [facility] [address] [place] [address] Dr. Saray Souza AST [Catalytic activity/Vol] 12 U/L Critically low 15-37 [facility] Comment on above: Performed By: #### I NSULIN #### [facility] [address] [place] [address] Dr. Saray Souza Bilirubin [Mass/Vol] 0.3 mg/dL Normal 0.2-1.0 [facility] Comment on above: Performed By: #### I NSULIN #### [facility] [address] [place] [address] Dr. Saray Souza Calcium [Mass/Vol] 8.1 mg/dL Critically low 8.5-10.1 [facility] Comment on above: Performed By: #### I NSULIN #### [facility] [address] [place] [address] Dr. Saray Souza Chloride [Moles/Vol] 102 mmol/L Normal 98-107 [facility] Comment on above: Performed By: #### I NSULIN #### [facility] [address] [address] [address] Saray Souza CO2 [Moles/Vol] 26.2 mmol/L Normal 21.0-32.0 [facility] Comment on above: Performed By: #### I NSULIN #### [facility] [address] [place] [address] Dr. Saray Souza Creatinine [Mass/Vol] 0.87 mg/dL Normal 0.55-1.02 [facility] Comment on above: Performed By: #### I NSULIN #### [facility] [address] [place] [address] Dr. Saray Souza EGFR-AF MOROCCAN >60 Normal >=60 [facility] Comment on above: Performed By: #### I NSULIN #### [facility] [address] [place] [address] Dr. Saray Souza EGFR-NON AF MOROCCAN >60 Normal >=60 [facility] Comment on above: Performed By: #### I NSULIN #### [facility] [address] [place] [address] Dr. Saray Souza Globulin (S) [Mass/Vol] 3.2 g/dL Normal [facility] Comment on above: Performed By: #### I NSULIN #### [facility] [address] [place] [address] Dr. Saray Souza Glucose [Mass/Vol] 206 mg/dL Critically high 74-106 [facility] Comment on above: Performed By: #### I NSULIN #### [facility] [address] [place] [address] Dr. Saray Souza Potassium [Moles/Vol] 4.1 mmol/L Normal 3.5-5.1 [facility] Comment on above: Performed By: #### I NSULIN #### [facility] [address] [place] [address] Dr. Saray Souza Protein [Mass/Vol] 6.2 g/dL Critically low 6.4-8.2 [facility] Comment on above: Performed By: #### I NSULIN #### [facility] [address] [place] [address] Dr. Saray Souza Sodium [Moles/Vol] 137 mmol/L Normal 136-145 [facility] Comment on above: Performed By: #### I NSULIN #### [facility] [address] [place] [address] Dr. Saray Souza Urea nitrogen [Mass/Vol] 19.0 mg/dL Critically high 7.0-18.0 [facility] Comment on above: Performed By: #### I NSULIN #### [facility] [address] [place] [address] Dr. Saray Souza Urea nitrogen/Creatinine [Mass ratio] 21.8 mg/mg Normal [facility] Comment on above: Performed By: #### I NSULIN #### [facility] [address] [place] [address] Dr. Saray Souza TSHon 04-17-2023 TSH 0.553 uIU/mL Normal 0.358-3.740 [facility] Comment on above: Performed By: #### I NSULIN #### [facility] [address] [place] [address] Dr. Saray Souza URINE MICROSCOPIC ONLYon BACTERIA TRACE Abnormal NONE SEEN [facility] Comment on above: Performed By: #### C BC #### [facility] [address] [place] [address] Dr. Saray Souza Bacteria identified Cx Nom (U) INDICATED Normal [facility] Comment on above: Performed By: #### C BC #### [facility] [address] [place] [address] Dr. Saray Souza CAST NONE SEEN Normal NONE SEEN [facility] Comment on above: Performed By: #### C BC #### [facility] [address] [place] [address] Dr. Saray Souza Crystals LM Nom (Urine sed) NONE SEEN Normal NONE SEEN [facility] Comment on above: Performed By: #### C BC #### [facility] [address] [address] [address] Saray Souza Epithelial cells LM Ql (Urine sed) RARE Normal NONE SEEN /RARE [facility] Comment on above: Performed By: #### C BC #### [facility] [address] [place] [address] Dr. Saray Souza MUCOUS NONE SEEN Normal NONE SEEN [facility] Comment on above: Performed By: #### C BC #### [facility] [address] [address] [address] Saray Souza RBC 0-2 Normal 0-2 [facility] Comment on above: Performed By: #### C BC #### [facility] [address] [place] [address] Dr. Saray Souza WBC 5-10 Abnormal NONE SEEN [facility] Comment on above: Performed By: #### C BC #### [facility] [address] [place] [address] Dr. Saray Souza XR CHEST 2 Von [...] CAROL RAMIREZ Date: 2023-04-17 10:45 Normal [facility] INSULINon 04-07-2023 Insulin 11.3 uIU/mL Normal 2.6-24.9 [facility] Comment on above: Performed By: #### I NSULIN #### [facility] [address] [place] [address] Dr. Saray Souza US KIDNEYS BLADDERon 023 [...] NANDINI MAYER Date: 2023-04-04 08:22 Normal [facility] INSULINon 04-02-2023 Insulin 37.5 uIU/mL Critically high 2.6-24.9 [facility] Comment on above: Performed By: #### I NSULIN #### [facility] [address] [place] [address] Dr. Saray Souza CBC AUTO DIFFon 04-01-2023 BASO # 0.0 103/ul Normal 0.0-0.1 [facility] Comment on above: Performed By: #### C BC #### [facility] [address] [place] [address] Dr. Saray Souza Basophils/100 WBC (Bld) 0.5 % Normal 0.2-2.0 [facility] Comment on above: Performed By: #### C BC #### [facility] [address] [place] [address] Dr. Saray Souza EO # 0.2 103/ul Normal 0.0-0.7 [facility] Comment on above: Performed By: #### C BC #### [facility] [address] [place] [address] Dr. Saray Souza Eosinophils/100 WBC (Bld) 2.3 % Normal 0.9-7.0 [facility] Comment on above: Performed By: #### C BC #### [facility] [address] [place] [address] Dr. Saray Souza Erythrocyte distribution width (RBC) [Ratio] 11.9 % Normal 11.0-15.0 [facility] Comment on above: Performed By: #### C BC #### [facility] [address] [place] [address] Dr. Saray Souza Hematocrit (Bld) [Volume fraction] 42.2 % Normal 36.0-48.0 [facility] Comment on above: Performed By: #### C BC #### [facility] [address] [place] [address] Dr. Saray Souza Hemoglobin (Bld) [Mass/Vol] 13.7 g/dL Normal 12.0-16.0 [facility] Comment on above: Performed By: #### C BC #### [facility] [address] [place] [address] Dr. Saray Souza IG # 0.02 10e3/ul Normal 0.00-0.03 [facility] Comment on above: Performed By: #### C BC #### [facility] [address] [place] [address] Dr. Saray Souza IG % 0.3 % Normal 0.0-0.5 [facility] Comment on above: Performed By: #### C BC #### [facility] [address] [place] [address] Dr. Saray Souza LYMPH # 1.6 103/ul Normal 1.2-3.8 [facility] Comment on above: Performed By: #### C BC #### [facility] [address] [place] [address] Dr. Saray Souza Lymphocytes/100 WBC (Bld) 21.5 % Normal 20.5-60.0 [facility] Comment on above: Performed By: #### C BC #### [facility] [address] [place] [address] Dr. Saray Souza MANUAL DIFF REQ NO Normal [facility] Comment on above: Performed By: #### C BC #### [facility] [address] [place] [address] Dr. Saray Souza MCH (RBC) [Entitic mass] 30.0 pg Normal 26.7-34.0 [facility] Comment on above: Performed By: #### C BC #### [facility] [address] [address] [address] Saray Souza MCHC (RBC) [Mass/Vol] 32.5 g/dL Normal 29.9-35.2 [facility] Comment on above: Performed By: #### C BC #### [facility] [address] [place] [address] Dr. Saray Souza MCV (RBC) [Entitic vol] 92.5 fL Normal 81.0-99.0 [facility] Comment on above: Performed By: #### C BC #### [facility] [address] [place] [address] Dr. Saray Souza MONO # 0.7 103/ul Normal 0.3-0.8 [facility] Comment on above: Performed By: #### C BC #### [facility] [address] [place] [address] Dr. Saary Souza Monocytes/100 WBC (Bld) 9.6 % Normal 1.7-12.0 [facility] Comment on above: Performed By: #### C BC #### [facility] [address] [place] [address] Dr. Saray Souza NEUT # 5.0 103/ul Normal 1.4-6.5 [facility] Comment on above: Performed By: #### C BC #### [facility] [address] [place] [address] Dr. Saray Souza Neutrophils/100 WBC (Bld) 65.8 % Normal 43.0-75.0 [facility] Comment on above: Performed By: #### C BC #### [facility] [address] [place] [address] Dr. Saray Souza Platelet mean volume (Bld) [Entitic vol] 8.9 fL Critically low 9.5-13.5 [facility] Comment on above: Performed By: #### C BC #### [facility] [address] [place] [address] Dr. Saray Souza PLT 293 103/ul Normal 150-450 [facility] Comment on above: Performed By: #### C BC #### [facility] [address] [place] [address] Dr. Saray Souza RBC 4.56 106/ul Normal 4.20-5.40 [facility] Comment on above: Performed By: #### C BC #### [facility] [address] [place] [address] Dr. Saray Souza WBC 7.5 103/ul Normal 4.0-11.0 [facility] Comment on above: Performed By: #### C BC #### [facility] [address] [place] [address] Dr. Saray Souza CULTURE URINEon 04-01-2023 CULTURE URINE Culture Observations : MODERATE GROWTH OF MIXED GENITAL CARMELO. NO POTENTIAL PATHOGENS SEEN. Normal [facility] Comment on above: Performed By: #### C BC #### [facility] [address] [place] [address] Dr. Saray Souza FREE THYROXINE INDEX T7on FTI 2.51 Normal 1.30-4.50 [facility] Comment on above: Performed By: #### I NSULIN #### [facility] [address] [place] [address] Dr. Saray Souza T3U 33.0 % Normal 30.0-39.0 [facility] Comment on above: Performed By: #### I NSULIN #### [facility] [address] [place] [address] Dr. Saray Souza T4 [Mass/Vol] 7.60 ug/dL Normal 4.80-13.90 [facility] Comment on above: Performed By: #### I NSULIN #### [facility] [address] [place] [address] Dr. Saray Souza IRONon 04-01-2023 Iron [Mass/Vol] 151.0 ug/dL Normal 50.0-170.0 [facility] Comment on above: Performed By: #### C BCMAN #### [facility] [address] [place] [address] Dr. Saray Souza PROF 14(COMP METB)on 023 Albumin [Mass/Vol] 3.7 g/dL Normal 3.4-5.0 [facility] Comment on above: Performed By: #### C EDGARDO #### [facility] [address] [place] [address] Dr. Saray Souza Albumin/Globulin [Mass ratio] 1.1 {ratio} Normal [facility] Comment on above: Performed By: #### C BCPRESLEY #### [facility] [address] [address] [address] Saray Souza ALP [Catalytic activity/Vol] 81 U/L Normal 46-116 [facility] Comment on above: Performed By: #### C BCPRESLEY #### [facility] [address] [place] [address] Dr. Saray Souza ALT [Catalytic activity/Vol] 33 U/L Normal 14-59 [facility] Comment on above: Performed By: #### C EDGARDO #### [facility] [address] [place] [address] Dr. Saray Souza Anion gap [Moles/Vol] 10.2 mmol/L Normal [facility] Comment on above: Performed By: #### C BCPRESLEY #### [facility] [address] [place] [address] Dr. Saray Suoza AST [Catalytic activity/Vol] 22 U/L Normal 15-37 [facility] Comment on above: Performed By: #### C EDGARDO #### [facility] [address] [place] [address] Dr. Saray Souza Bilirubin [Mass/Vol] 0.3 mg/dL Normal 0.2-1.0 [facility] Comment on above: Performed By: #### C BCPRESLEY #### [facility] [address] [address] [address] Saray Souza Calcium [Mass/Vol] 8.6 mg/dL Normal 8.5-10.1 [facility] Comment on above: Performed By: #### C EDGARDO #### [facility] [address] [place] [address] Dr. Saray Souza Chloride [Moles/Vol] 105 mmol/L Normal 98-107 [facility] Comment on above: Performed By: #### C BCMAN #### [facility] [address] [address] [address] Saray Souza CO2 [Moles/Vol] 30.4 mmol/L Normal 21.0-32.0 [facility] Comment on above: Performed By: #### C BCMAN #### [facility] [address] [address] [address] Saray Souza Creatinine [Mass/Vol] 0.72 mg/dL Normal 0.55-1.02 [facility] Comment on above: Performed By: #### C BCMAN #### [facility] [address] [address] [address] Saray Souza EGFR-AF MOROCCAN >60 Normal >=60 [facility] Comment on above: Performed By: #### C BCPRESLEY #### [facility] [address] [address] [address] Saray Souza EGFR-NON AF MOROCCAN >60 Normal >=60 [facility] Comment on above: Performed By: #### C BCMAN #### [facility] [address] [address] [address] Saray Souza Globulin (S) [Mass/Vol] 3.5 g/dL Normal [facility] Comment on above: Performed By: #### C BCMAN #### [facility] [address] [address] [address] Saray Souza Glucose [Mass/Vol] 89 mg/dL Normal 74-106 [facility] Comment on above: Performed By: #### C BCMAN #### [facility] [address] [address] [address] Saray Souza Potassium [Moles/Vol] 3.6 mmol/L Normal 3.5-5.1 [facility] Comment on above: Performed By: #### C BCMAN #### [facility] [address] [address] [address] Saray Souza Protein [Mass/Vol] 7.2 g/dL Normal 6.4-8.2 [facility] Comment on above: Performed By: #### C BCMAN #### [facility] [address] [place] [address] Dr. Saray Souza Sodium [Moles/Vol] 142 mmol/L Normal 136-145 [facility] Comment on above: Performed By: #### C EDGARDO #### [facility] [address] [place] [address] Dr. Saray Souza Urea nitrogen [Mass/Vol] 12.0 mg/dL Normal 7.0-18.0 [facility] Comment on above: Performed By: #### C EDGARDO #### [facility] [address] [place] [address] Dr. Saray Souza Urea nitrogen/Creatinine [Mass ratio] 16.7 mg/mg Normal [facility] Comment on above: Performed By: #### C EDGARDO #### [facility] [address] [place] [address] Dr. Saray Souza TSHon 04-01-2023 TSH 1.708 uIU/mL Normal 0.358-3.740 [facility] Comment on above: Performed By: #### I NSULIN #### [facility] [address] [place] [address] Dr. Saray Souza UA RANDOM W/MICROSCOPICon BACTERIA SMALL Abnormal NONE SEEN [facility] Comment on above: Performed By: #### I NSULIN #### [facility] [address] [place] [address] Dr. Saray Souza Bilirubin Ql (U) Negative Normal NEGATIVE [facility] Comment on above: Performed By: #### I NSULIN #### [facility] [address] [place] [address] Dr. Saray Souza CAST NONE SEEN Normal NONE SEEN [facility] Comment on above: Performed By: #### I NSULIN #### [facility] [address] [place] [address] Dr. Saray Souza Clarity (U) CLEAR Normal CLEAR [facility] Comment on above: Performed By: #### I NSULIN #### [facility] [address] [place] [address] Dr. Saray Souza Color (U) YELLOW Normal YELLOW [facility] Comment on above: Performed By: #### I NSULIN #### [facility] [address] [address] [address] Saray Souza Crystals LM Nom (Urine sed) NONE SEEN Normal NONE SEEN [facility] Comment on above: Performed By: #### I NSULIN #### [facility] [address] [place] [address] Dr. Saray Souza Epithelial cells LM Ql (Urine sed) FEW Abnormal NONE SEEN /RARE [facility] Comment on above: Performed By: #### I NSULIN #### [facility] [address] [address] [address] Saray Souza Glucose Ql (U) Negative Normal NEGATIVE [facility] Comment on above: Performed By: #### I NSULIN #### [facility] [address] [place] [address] Dr. Saray Souza Hemoglobin Ql (U) Negative Normal NEGATIVE [facility] Comment on above: Performed By: #### I NSULIN #### [facility] [address] [place] [address] Dr. Saray Souza Ketones Ql (U) TRACE Abnormal NEGATIVE [facility] Comment on above: Performed By: #### I NSULIN #### [facility] [address] [place] [address] Dr. Saray Souza LEUKOCYTES SMALL Abnormal NEGATIVE [facility] Comment on above: Performed By: #### I NSULIN #### [facility] [address] [address] [address] Saray Souza MUCOUS NONE SEEN Normal NONE SEEN [facility] Comment on above: Performed By: #### I NSULIN #### [facility] [address] [address] [address] Saray Souza Nitrite Ql (U) Negative Normal NEGATIVE [facility] Comment on above: Performed By: #### I NSULIN #### [facility] [address] [place] [address] Dr. Saray Souza pH (U) 5.5 [pH] Normal 5-9 [facility] Comment on above: Performed By: #### I NSULIN #### [facility] [address] [place] [address] Dr. Saray Souza RBC 0-2 Normal 0-2 [facility] Comment on above: Performed By: #### I NSULIN #### [facility] [address] [place] [address] Dr. Saray Souza SPEC GRAVITY >=1.030 Abnormal 1.005-<=1.025 [facility] Comment on above: Performed By: #### I NSULIN #### [facility] [address] [place] [address] Dr. Saray Souza UA PROTEIN Negative Normal NEGATIVE/ TRACE [facility] Comment on above: Performed By: #### I NSULIN #### [facility] [address] [place] [address] Dr. Saray Souza Urobilinogen Qn (U) 0.2 {Janine'U}/dL Normal 0.2 - 1. 0 [facility] Comment on above: Performed By: #### I NSULIN #### [facility] [address] [place] [address] Dr. Saray Souza WBC 5-10 Abnormal NONE SEEN [facility] Comment on above: Performed By: #### I NSULIN #### [facility] [address] [place] [address] Dr. Saray Souza INSULINon 02-14-2023 Insulin 12.8 uIU/mL Normal 2.6-24.9 [facility] Comment on above: Performed By: #### C BC #### [facility] [address] [place] [address] Dr. Saray Souza CBC AUTO DIFFon 02-13-2023 BASO # 0.0 103/ul Normal 0.0-0.1 [facility] Comment on above: Performed By: #### C BC #### [facility] [address] [place] [address] Dr. Saray Souza Basophils/100 WBC (Bld) 0.4 % Normal 0.2-2.0 [facility] Comment on above: Performed By: #### C BC #### [facility] [address] [place] [address] Dr. Saray Souza EO # 0.1 103/ul Normal 0.0-0.7 [facility] Comment on above: Performed By: #### C BC #### [facility] [address] [place] [address] Dr. Saray Souza Eosinophils/100 WBC (Bld) 1.6 % Normal 0.9-7.0 [facility] Comment on above: Performed By: #### C BC #### [facility] [address] [place] [address] Dr. Saray Souza Erythrocyte distribution width (RBC) [Ratio] 11.9 % Normal 11.0-15.0 [facility] Comment on above: Performed By: #### C BC #### [facility] [address] [place] [address] Dr. Saray Souza Hematocrit (Bld) [Volume fraction] 41.9 % Normal 36.0-48.0 [facility] Comment on above: Performed By: #### C BC #### [facility] [address] [place] [address] Dr. Saray Souza Hemoglobin (Bld) [Mass/Vol] 13.7 g/dL Normal 12.0-16.0 [facility] Comment on above: Performed By: #### C BC #### [facility] [address] [place] [address] Dr. Saray Souza IG # 0.02 10e3/ul Normal 0.00-0.03 [facility] Comment on above: Performed By: #### C BC #### [facility] [address] [place] [address] Dr. Saray Souza IG % 0.3 % Normal 0.0-0.5 [facility] Comment on above: Performed By: #### C BC #### [facility] [address] [place] [address] Dr. Saray Souza LYMPH # 1.4 103/ul Normal 1.2-3.8 [facility] Comment on above: Performed By: #### C BC #### [facility] [address] [place] [address] Dr. Saray Souza Lymphocytes/100 WBC (Bld) 18.6 % Critically low 20.5-60.0 [facility] Comment on above: Performed By: #### C BC #### [facility] [address] [place] [address] Dr. Saray Souza MANUAL DIFF REQ NO Normal [facility] Comment on above: Performed By: #### C BC #### [facility] [address] [place] [address] Dr. Saray Souza MCH (RBC) [Entitic mass] 29.9 pg Normal 26.7-34.0 [facility] Comment on above: Performed By: #### C BC #### [facility] [address] [place] [address] Dr. Saray Souza MCHC (RBC) [Mass/Vol] 32.7 g/dL Normal 29.9-35.2 [facility] Comment on above: Performed By: #### C BC #### [facility] [address] [place] [address] Dr. Saray Souza MCV (RBC) [Entitic vol] 91.5 fL Normal 81.0-99.0 [facility] Comment on above: Performed By: #### C BC #### [facility] [address] [place] [address] Dr. Saray Souza MONO # 0.6 103/ul Normal 0.3-0.8 [facility] Comment on above: Performed By: #### C BC #### [facility] [address] [place] [address] Dr. Saray Souza Monocytes/100 WBC (Bld) 8.3 % Normal 1.7-12.0 [facility] Comment on above: Performed By: #### C BC #### [facility] [address] [place] [address] Dr. Saray Souza NEUT # 5.5 103/ul Normal 1.4-6.5 [facility] Comment on above: Performed By: #### C BC #### [facility] [address] [place] [address] Dr. Saray Souza Neutrophils/100 WBC (Bld) 70.8 % Normal 43.0-75.0 [facility] Comment on above: Performed By: #### C BC #### [facility] [address] [place] [address] Dr. Saray Souza Platelet mean volume (Bld) [Entitic vol] 9.0 fL Critically low 9.5-13.5 [facility] Comment on above: Performed By: #### C BC #### [facility] [address] [place] [address] Dr. Saray Souza PLT 271 103/ul Normal 150-450 [facility] Comment on above: Performed By: #### C BC #### [facility] [address] [place] [address] Dr. Saray Souza RBC 4.58 106/ul Normal 4.20-5.40 [facility] Comment on above: Performed By: #### C BC #### [facility] [address] [place] [address] Dr. Saray Souza WBC 7.7 103/ul Normal 4.0-11.0 [facility] Comment on above: Performed By: #### C BC #### [facility] [address] [place] [address] Dr. Saray Souza FREE THYROXINE INDEX T7on FTI 2.56 Normal 1.30-4.50 [facility] Comment on above: Performed By: #### I NSULIN #### [facility] [address] [place] [address] Dr. Saray Souza T3U 36.0 % Normal 30.0-39.0 [facility] Comment on above: Performed By: #### I NSULIN #### [facility] [address] [place] [address] Dr. Saray Souza T4 [Mass/Vol] 7.10 ug/dL Normal 4.80-13.90 [facility] Comment on above: Performed By: #### I NSULIN #### [facility] [address] [place] [address] Dr. Saray Souza IRONon 03-24-2023 Iron [Mass/Vol] 130.0 ug/dL Normal 50.0-170.0 [facility] Comment on above: Performed By: #### C EDGARDO #### [facility] [address] [place] [address] Dr. Saray Souza PROF 14(COMP METB)on 023 Albumin [Mass/Vol] 3.8 g/dL Normal 3.4-5.0 [facility] Comment on above: Performed By: #### I NSULIN #### [facility] [address] [place] [address] Dr. Saray Souza Albumin/Globulin [Mass ratio] 1.2 {ratio} Normal [facility] Comment on above: Performed By: #### I NSULIN #### [facility] [address] [place] [address] Dr. Saray Souza ALP [Catalytic activity/Vol] 82 U/L Normal 46-116 [facility] Comment on above: Performed By: #### I NSULIN #### [facility] [address] [place] [address] Dr. Saray Souza ALT [Catalytic activity/Vol] 25 U/L Normal 14-59 [facility] Comment on above: Performed By: #### I NSULIN #### [facility] [address] [place] [address] Dr. Saray Souza Anion gap [Moles/Vol] 12.7 mmol/L Normal [facility] Comment on above: Performed By: #### I NSULIN #### [facility] [address] [place] [address] Dr. Saray Souza AST [Catalytic activity/Vol] 19 U/L Normal 15-37 [facility] Comment on above: Performed By: #### I NSULIN #### [facility] [address] [place] [address] Dr. Saray Souza Bilirubin [Mass/Vol] 0.3 mg/dL Normal 0.2-1.0 [facility] Comment on above: Performed By: #### I NSULIN #### [facility] [address] [place] [address] Dr. Saray Souza Calcium [Mass/Vol] 8.8 mg/dL Normal 8.5-10.1 [facility] Comment on above: Performed By: #### I NSULIN #### [facility] [address] [address] [address] Saray Souza Chloride [Moles/Vol] 101 mmol/L Normal 98-107 [facility] Comment on above: Performed By: #### I NSULIN #### [facility] [address] [address] [address] Saray Souza CO2 [Moles/Vol] 27.3 mmol/L Normal 21.0-32.0 [facility] Comment on above: Performed By: #### I NSULIN #### [facility] [address] [place] [address] Dr. Saray Souza Creatinine [Mass/Vol] 0.69 mg/dL Normal 0.55-1.02 [facility] Comment on above: Performed By: #### I NSULIN #### [facility] [address] [address] [address] Saray Souza EGFR-AF MOROCCAN >60 Normal >=60 [facility] Comment on above: Performed By: #### I NSULIN #### [facility] [address] [place] [address] Dr. Saray Souza EGFR-NON AF MOROCCAN >60 Normal >=60 [facility] Comment on above: Performed By: #### I NSULIN #### [facility] [address] [place] [address] Dr. Saary Souza Globulin (S) [Mass/Vol] 3.3 g/dL Normal [facility] Comment on above: Performed By: #### I NSULIN #### [facility] [address] [address] [address] Saray Souza Glucose [Mass/Vol] 83 mg/dL Normal 74-106 [facility] Comment on above: Performed By: #### I NSULIN #### [facility] [address] [place] [address] Dr. Saray Souza Potassium [Moles/Vol] 4.0 mmol/L Normal 3.5-5.1 [facility] Comment on above: Performed By: #### I NSULIN #### [facility] [address] [address] [address] Saray Souza Protein [Mass/Vol] 7.1 g/dL Normal 6.4-8.2 [facility] Comment on above: Performed By: #### I NSULIN #### [facility] [address] [address] [address] Saray Souza Sodium [Moles/Vol] 137 mmol/L Normal 136-145 [facility] Comment on above: Performed By: #### I NSULIN #### [facility] [address] [place] [address] Dr. Saray Souza Urea nitrogen [Mass/Vol] 10.0 mg/dL Normal 7.0-18.0 [facility] Comment on above: Performed By: #### I NSULIN #### [facility] [address] [place] [address] Dr. Saray Souza Urea nitrogen/Creatinine [Mass ratio] 14.5 mg/mg Normal [facility] Comment on above: Performed By: #### I NSULIN #### [facility] [address] [place] [address] Dr. Saray Souza TSHon 02-13-2023 TSH 2.745 uIU/mL Normal 0.358-3.740 [facility] Comment on above: Performed By: #### I NSULIN #### [facility] [address] [place] [address] Dr. Saray Souza AMYLASEon 02-04-2023 Amylase [Catalytic activity/Vol] 45 U/L Normal 25-115 [facility] Comment on above: Performed By: #### T SH, CMP, HSTROPN, LIPA, LINDA #### [facility] [address] [place] [address] Dr. Saray Souza CBC AUTO DIFFon 02-04-2023 BASO # 0.0 103/ul Normal 0.0-0.1 [facility] Comment on above: Performed By: #### C BC #### [facility] [address] [place] [address] Dr. Saray Souza Basophils/100 WBC (Bld) 0.4 % Normal 0.2-2.0 [facility] Comment on above: Performed By: #### C BC #### [facility] [address] [place] [address] Dr. Saray Souza EO # 0.1 103/ul Normal 0.0-0.7 [facility] Comment on above: Performed By: #### C BC #### [facility] [address] [place] [address] Dr. Saray Souza Eosinophils/100 WBC (Bld) 1.7 % Normal 0.9-7.0 [facility] Comment on above: Performed By: #### C BC #### [facility] [address] [place] [address] Dr. Saray Souza Erythrocyte distribution width (RBC) [Ratio] 12.0 % Normal 11.0-15.0 [facility] Comment on above: Performed By: #### C BC #### [facility] [address] [place] [address] Dr. Saray Souza Hematocrit (Bld) [Volume fraction] 42.3 % Normal 36.0-48.0 [facility] Comment on above: Performed By: #### C BC #### [facility] [address] [place] [address] Dr. Saray Souza Hemoglobin (Bld) [Mass/Vol] 13.9 g/dL Normal 12.0-16.0 [facility] Comment on above: Performed By: #### C BC #### [facility] [address] [place] [address] Dr. Saray Souza IG # 0.03 10e3/ul Normal 0.00-0.03 [facility] Comment on above: Performed By: #### C BC #### [facility] [address] [place] [address] Dr. Saray Souza IG % 0.4 % Normal 0.0-0.5 [facility] Comment on above: Performed By: #### C BC #### [facility] [address] [place] [address] Dr. Saray Souza LYMPH # 1.5 103/ul Normal 1.2-3.8 [facility] Comment on above: Performed By: #### C BC #### [facility] [address] [place] [address] Dr. Saray Souza Lymphocytes/100 WBC (Bld) 20.4 % Critically low 20.5-60.0 [facility] Comment on above: Performed By: #### C BC #### [facility] [address] [place] [address] Dr. Saray Souza MANUAL DIFF REQ NO Normal [facility] Comment on above: Performed By: #### C BC #### [facility] [address] [place] [address] Dr. Saray Souza MCH (RBC) [Entitic mass] 30.0 pg Normal 26.7-34.0 [facility] Comment on above: Performed By: #### C BC #### [facility] [address] [place] [address] Dr. Saray Souza MCHC (RBC) [Mass/Vol] 32.9 g/dL Normal 29.9-35.2 [facility] Comment on above: Performed By: #### C BC #### [facility] [address] [place] [address] Dr. Saray Souza MCV (RBC) [Entitic vol] 91.2 fL Normal 81.0-99.0 [facility] Comment on above: Performed By: #### C BC #### [facility] [address] [place] [address] Dr. Saray Souza MONO # 0.6 103/ul Normal 0.3-0.8 [facility] Comment on above: Performed By: #### C BC #### [facility] [address] [place] [address] Dr. Saray Souza Monocytes/100 WBC (Bld) 7.7 % Normal 1.7-12.0 [facility] Comment on above: Performed By: #### C BC #### [facility] [address] [place] [address] Dr. Saray Souza NEUT # 5.2 103/ul Normal 1.4-6.5 [facility] Comment on above: Performed By: #### C BC #### [facility] [address] [place] [address] Dr. Saray Souza Neutrophils/100 WBC (Bld) 69.4 % Normal 43.0-75.0 [facility] Comment on above: Performed By: #### C BC #### [facility] [address] [place] [address] Dr. Saray Souza Platelet mean volume (Bld) [Entitic vol] 9.0 fL Critically low 9.5-13.5 [facility] Comment on above: Performed By: #### C BC #### [facility] [address] [place] [address] Dr. Saray Souza PLT 292 103/ul Normal 150-450 [facility] Comment on above: Performed By: #### C BC #### [facility] [address] [place] [address] Dr. Saray Souza RBC 4.64 106/ul Normal 4.20-5.40 [facility] Comment on above: Performed By: #### C BC #### [facility] [address] [place] [address] Dr. Saray Souza WBC 7.5 103/ul Normal 4.0-11.0 [facility] Comment on above: Performed By: #### C BC #### [facility] [address] [place] [address] Dr. Saray Souza CULTURE URINEon 02-04-2023 CULTURE URINE Culture Observations : LIGHT GROWTH OF MIXED GENITAL CARMELO. NO POTENTIAL PATHOGENS SEEN. Normal [facility] Comment on above: Performed By: #### C BC #### [facility] [address] [place] [address] Dr. Saray Souza ER URINE PROFILEon 3 Bilirubin Ql (U) Negative Normal NEGATIVE The [facility] Comment on above: Performed By: #### C BC #### [facility] [address] [place] [address] Dr. Saray Souza Clarity (U) CLEAR Normal CLEAR [facility] Comment on above: Performed By: #### C BC #### [facility] [address] [address] [address] Saray Souza Color (U) LT. YELLOW Normal YELLOW [facility] Comment on above: Performed By: #### C BC #### [facility] [address] [address] [address] Saray Souza ERUAHD A micrscopic examination will be performed if indicated. Normal [facility] Comment on above: Performed By: #### C BC #### [facility] [address] [address] [address] Saray Souza Glucose Ql (U) Negative Normal NEGATIVE [facility] Comment on above: Performed By: #### C BC #### [facility] [address] [place] [address] Dr. Saray Souza Hemoglobin Ql (U) Negative Normal NEGATIVE [facility] Comment on above: Performed By: #### C BC #### [facility] [address] [place] [address] Dr. Saray Souza Ketones Ql (U) Negative Normal NEGATIVE [facility] Comment on above: Performed By: #### C BC #### [facility] [address] [place] [address] Dr. Saray Souza LEUKOCYTES MODERATE Abnormal NEGATIVE [facility] Comment on above: Performed By: #### C BC #### [facility] [address] [place] [address] Dr. Saray Souza Nitrite Ql (U) Negative Normal NEGATIVE [facility] Comment on above: Performed By: #### C BC #### [facility] [address] [place] [address] Dr. Saray Souza pH (U) 5.5 [pH] Normal 5-9 [facility] Comment on above: Performed By: #### C BC #### [facility] [address] [place] [address] Dr. Saray Souza SPEC GRAVITY >=1.030 Abnormal 1.005-<=1.025 [facility] Comment on above: Performed By: #### C BC #### [facility] [address] [place] [address] Dr. Saray Souza UA PROTEIN Negative Normal NEGATIVE/ TRACE [facility] Comment on above: Performed By: #### C BC #### [facility] [address] [place] [address] Dr. Saray Souza UR MICRO IND INDICATED Normal [facility] Comment on above: Performed By: #### C BC #### [facility] [address] [place] [address] Dr. Saray Souza Urobilinogen Qn (U) 0.2 {Janine'U}/dL Normal 0.2 - 1. 0 [facility] Comment on above: Performed By: #### C BC #### [facility] [address] [place] [address] Dr. Saray Souza LIPASEon 02-04-2023 Lipase [Catalytic activity/Vol] 97.0 U/L Normal 73.0-393.0 [facility] Comment on above: Performed By: #### T SH, CMP, HSTROPN, LIPA, LINDA #### [facility] [address] [place] [address] Dr. Saray Souza URon 02-04-2023 , QUAL Negative Normal NEGATIVE [facility] Comment on above: Performed By: #### C BC #### [facility] [address] [place] [address] Dr. Saray Souza PROF 14(COMP METB)on 023 Albumin [Mass/Vol] 3.5 g/dL Normal 3.4-5.0 [facility] Comment on above: Performed By: #### T SH, CMP, HSTROPN, LIPA, LINDA #### [facility] [address] [place] [address] Dr. Saray Souza Albumin/Globulin [Mass ratio] 1.2 {ratio} Normal [facility] Comment on above: Performed By: #### T SH, CMP, HSTROPN, LIPA, LINDA #### [facility] [address] [place] [address] Dr. Saray Souza ALP [Catalytic activity/Vol] 78 U/L Normal 46-116 [facility] Comment on above: Performed By: #### T SH, CMP, HSTROPN, LIPA, LINDA #### [facility] [address] [place] [address] Dr. Saray Souza ALT [Catalytic activity/Vol] 24 U/L Normal 14-59 [facility] Comment on above: Performed By: #### T SH, CMP, HSTROPN, LIPA, LINDA #### [facility] [address] [place] [address] Dr. Saray Souza Anion gap [Moles/Vol] 7.9 mmol/L Normal [facility] Comment on above: Performed By: #### T SH, CMP, HSTROPN, LIPA, LINDA #### [facility] [address] [place] [address] Dr. Saray Souza AST [Catalytic activity/Vol] 16 U/L Normal 15-37 [facility] Comment on above: Performed By: #### T SH, CMP, HSTROPN, LIPA, LINDA #### [facility] [address] [place] [address] Dr. Saray Souza Bilirubin [Mass/Vol] 0.3 mg/dL Normal 0.2-1.0 [facility] Comment on above: Performed By: #### T SH, CMP, HSTROPN, LIPA, LINDA #### [facility] [address] [place] [address] Dr. Saray Souza Calcium [Mass/Vol] 8.6 mg/dL Normal 8.5-10.1 [facility] Comment on above: Performed By: #### T SH, CMP, HSTROPN, LIPA, LINDA #### [facility] [address] [place] [address] Dr. Saray Souza Chloride [Moles/Vol] 105 mmol/L Normal 98-107 [facility] Comment on above: Performed By: #### T SH, CMP, HSTROPN, LIPA, LINDA #### [facility] [address] [place] [address] Dr. Saray Souza CO2 [Moles/Vol] 28.9 mmol/L Normal 21.0-32.0 [facility] Comment on above: Performed By: #### T SH, CMP, HSTROPN, LIPA, LINDA #### [facility] [address] [address] [address] Saray Souza Creatinine [Mass/Vol] 0.67 mg/dL Normal 0.55-1.02 [facility] Comment on above: Performed By: #### T SH, CMP, HSTROPN, LIPA, LINDA #### [facility] [address] [place] [address] Dr. Saray Souza EGFR-AF MOROCCAN >60 Normal >=60 [facility] Comment on above: Performed By: #### T SH, CMP, HSTROPN, LIPA, LINDA #### [facility] [address] [place] [address] Dr. Saray Souza EGFR-NON AF MOROCCAN >60 Normal >=60 [facility] Comment on above: Performed By: #### T SH, CMP, HSTROPN, LIPA, LINDA #### [facility] [address] [place] [address] Dr. Saray Souza Globulin (S) [Mass/Vol] 3.0 g/dL Normal [facility] Comment on above: Performed By: #### T SH, CMP, HSTROPN, LIPA, LINDA #### [facility] [address] [place] [address] Dr. Saray Souza Glucose [Mass/Vol] 97 mg/dL Normal 74-106 [facility] Comment on above: Performed By: #### T SH, CMP, HSTROPN, LIPA, LINDA #### [facility] [address] [place] [address] Dr. Saray Souza Potassium [Moles/Vol] 3.8 mmol/L Normal 3.5-5.1 [facility] Comment on above: Performed By: #### T SH, CMP, HSTROPN, LIPA, LINDA #### [facility] [address] [place] [address] Dr. Saray Souza Protein [Mass/Vol] 6.5 g/dL Normal 6.4-8.2 [facility] Comment on above: Performed By: #### T SH, CMP, HSTROPN, LIPA, LINDA #### [facility] [address] [address] [address] Saray Souza Sodium [Moles/Vol] 138 mmol/L Normal 136-145 [facility] Comment on above: Performed By: #### T SH, CMP, HSTROPN, LIPA, LINDA #### [facility] [address] [place] [address] Dr. Saray Souza Urea nitrogen [Mass/Vol] 13.0 mg/dL Normal 7.0-18.0 [facility] Comment on above: Performed By: #### T SH, CMP, HSTROPN, LIPA, LINDA #### [facility] [address] [place] [address] Dr. Saray Souza Urea nitrogen/Creatinine [Mass ratio] 19.4 mg/mg Normal [facility] Comment on above: Performed By: #### T SH, CMP, HSTROPN, LIPA, LINDA #### [facility] [address] [place] [address] Dr. Saray Souza TROPONIN, HIGH SENSITIVITYon 02-04-2023 HSTROP 4.0 pg/mL Normal 4.0-51.3 [facility] Comment on above: Result Comment: CUT- OFF POINTS HAVE BEEN ESTABLISHED BASED ON THE FOURTH UNIVERSAL DEFINITIONS OF MYOCARDIAL INFARCTION. THE UPPER REFERENCE LIMIT (URL) OF TROPONIN, DEFINED THE 99TH PERCENTILE OF cTnI DISTRIBUTION IN A REFERENCE POPULATION, HAS BEEN CONFIRMED THE DECISION THRESHOLD FOR CO DIAGNOSIS. Performed By: #### T SH, CMP, HSTROPN, LIPA, LINDA #### [facility] [address] [place] [address] Dr. Saray Souza TSHon 02-04-2023 TSH 2.478 uIU/mL Normal 0.358-3.740 [facility] Comment on above: Performed By: #### T SH, CMP, HSTROPN, LIPA, LINDA #### [facility] [address] [place] [address] Dr. Saray Souza URINE MICROSCOPIC ONLYon BACTERIA MODERATE Abnormal NONE SEEN [facility] Comment on above: Performed By: #### C BC #### [facility] [address] [place] [address] Dr. Saray Souza Bacteria identified Cx Nom (U) INDICATED Normal [facility] Comment on above: Performed By: #### C BC #### [facility] [address] [place] [address] Dr. Saray Souza CAST NONE SEEN Normal NONE SEEN [facility] Comment on above: Performed By: #### C BC #### [facility] [address] [place] [address] Dr. Saray Souza Crystals LM Nom (Urine sed) NONE SEEN Normal NONE SEEN [facility] Comment on above: Performed By: #### C BC #### [facility] [address] [place] [address] Dr. Saray Souza Epithelial cells LM Ql (Urine sed) MODERATE Abnormal NONE SEEN /RARE [facility] Comment on above: Performed By: #### C BC #### [facility] [address] [place] [address] Dr. Saray Souza MUCOUS NONE SEEN Normal NONE SEEN [facility] Comment on above: Performed By: #### C BC #### [facility] [address] [place] [address] Dr. Saray Souza RBC 5-10 Abnormal 0-2 [facility] Comment on above: Performed By: #### C BC #### [facility] [address] [place] [address] Dr. Saray Souza WBC 10-20 Abnormal NONE SEEN [facility] Comment on above: Performed By: #### C BC #### [facility] [address] [place] [address] Dr. Saray Souza Covid-19 PCR (CVDTB)on 09-24 SARS-CoV-2 (COVID-19) RNA DAYDAY+probe Ql (Unsp spec) Not detected Normal NOT DETECTED [facility] Comment on above: Result Comment: [...] for this test is supported by the [place] of Health and Human Service's declaration that [...] used). Performed By: #### C BC #### [facility] [address] [place] [address] Dr. Saray Souza INFLUENZA A AND B [facility] 10-20 [facility] SEE BELOW Normal [facility] Comment on above: Result Comment: Nega tive for Flu A protein angiten. Infection due to Flu A cannot be ruled out. Flu A angiten in the sample may be below the detection limit of the test. Performed By: #### C BC #### [facility] [address] [place] [address] Dr. Saray Sou[facility] BEL[facility] Normal [facility] Comment on above: Result Comment: Nega tive for Flu B protein antigen. Infection due to Flu B cannot be ruled out. Flu B antigen in the sample may be below the detection limit of the test. Performed By: #### C BC #### [facility] [address] [place] [address] Dr. Saray Souza INFLUENZA A AG Negative Normal NEGATIVE SEE COMMENT [facility] Comment on above: Performed By: #### C BC #### [facility] [address] [place] [address] Dr. Saray Souza INFLUENZA B AG Negative Normal NEGATIVE SEE COMMENT [facility] Comment on above: Performed By: #### C BC #### [facility] [address] [place] [address] Dr. Saray Souza INTERNAL CONTROLS Within Normal Limits Normal Wi thin Normal Limits [facility] Comment on above: Performed By: #### C BC #### [facility] [address] [place], [place] [address] Dr. Saray Souza STREPT SCREENon 10-20-2022 STREP SCREEN A Positive Abnormal NEGATIVE [facility] Comment on above: Performed By: #### C BC #### [facility] [address] [place], [place] [address] Dr. Saray Souza XR SHOULDER RT INJon [...] ADRIANA MENDEZ Date: 2022-07-18 17:05 Normal [facility] MRI SHOULDER RT WO CONon [...] by: ADRIANA MENDEZ Date: 2022-07-10 10:10 Normal [facility] XR ARTHRO SHLD RTon 07-10-20 [...] by: ADRIANA MENDEZ Date: 2022-07-10 10:01 Normal [facility] No Panel Informationon 03-18 Right Eye Reliability was good. Findings include normal observations. Left Eye Reliability was good. Findings include normal observations. Notes I personally reviewed the visual zaldivar performed by this patient on 03/18/22. The visual zaldivar are normal OU with good fixation. 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 Francisco Ayers MD Normal [facility] Ambulatory Clinical Summaryo n 10-09-2021 Ambulatory Clinical Summary {[id number]}CD:[id number] Normal [facility] General Surgery Office/Clini c Noteon 10-09-2021 [...] Crystal Only if needed [address] [place] [address]- Additional Instructions: Problem List/Past Medical History Ongoing [...] SARS-CoV-2 (COVID-19) mRNA-1273 vaccine 03/18/2021 Recorded Normal [facility] Comment on above: Result Comment: Elec tronically Signed By: RUTH CLARK, Yonis Mckenzie\.br\Date and Time Signed: 10/09/21 15:14 EST Pathology Noteon 10-04-2021 Pathology Note [id number]. 00CD:127 Normal [facility] Operative Reporton Operative Report [id number]#1.0 0CD:127 Normal [facility] ECG 12-Leadon 10-02-2021 ECG 12-Lead [id number]#1.0 0CD:127 Normal [facility] Lab Reportson 10-02-2021 Lab Reports [id number]#1.0 0CD:127 Normal [facility] Consent for Procedure/Surger yon 10-01-2021 Consent for Procedure/Surgery [id number] 0CD:127 Normal [facility] Ambulatory Clinical Summaryo n 09-30-2021 Ambulatory Clinical Summary {[id number]}CD:[id number] Normal [facility] General Surgery Office/Clini c Noteon [...] to bid with some improvement; seen in [facility] ED 2 days ago, abd ct [...] SARS-CoV-2 (COVID-19) mRNA-1273 vaccine 03/18/2021 Recorded Normal [facility] Comment on above: Result Comment: Elec tronically Signed By: RUTH CLARK, Yonis Mckenzie\gaby\Date and Time Signed: 09/30/21 21:20 EST Outside Radiologyon 09-30-20 21 Outside Radiology [id number] 0CD:127 Normal [facility] Letter [facility] September 25, 2021 DANIEL CELAYA, [address], [place] [address] Re: ROSALIE FREEMAN Date of : 1995 Thank you for your referral of Rosalie Freeman who was seen on consultation on 09/20/2021 for 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 I have enclosed my consultation note for your review. I will be happy to follow Rosalie should her symptoms persist. Sincerely, Yonis Carney MD General Surgery Normal [facility] Ambulatory Clinical Summaryo n 09-20-2021 Ambulatory Clinical Summary {[id number]}CD:[id number] Normal [facility] ED Note-Physicianon 09-20-20 21 ED Note-Physician [id number]#1.0 0CD:127 Normal [facility] Physician Referralon 021 Physician Referral [id number] 0CD:127 Normal [facility] RAD - Ultrasound Reporton RAD - Ultrasound Report [id number] 0CD:127 Normal [facility] Cytologyon 12-20-2018 Cytology (NOTE) [id number] [employer] [facility] PATHOLOGISTS [facility] [address] [place] [address]. [place], [place] [address] GYNECOLOGIC CYTOLOGY REPORT Patient Name: ROSALIE FREEMAN V. 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 - Endocervical/transform ation zone component present. - Scant cellularity; predominantly blood. Descriptive Diagnosis: Negative for intraepithelial lesion or malignancy. 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: KANCHAN Mendoza(ASCP) Electronically Signed Out donna/01/03/2019 [facility] Comment on above: Performed By: #### P PPVP #### [facility] [address] [place] [address] [place] Attacher: Vega Wilkerson MD Vital Signs Date Time Vital Sign Value Performing Clinician Facility 11-19-2021 15:30-0500 Body height 180.34 cm Nandini Scarlett Other [facility] Other 11-19-2021 15:30-0500 Body mass index (BMI) [Ratio] 41.56 kg/m2 Nandini Scarlett Other [facility] Other 11-19-2021 15:30-0500 Body weight 135.17 kg Nandini Scarlett Other [facility] Other 11-19-2021 15:30-0500 Diastolic blood pressure 76 mm[Hg] Nandini Pantoja Other [facility] Other 11-19-2021 15:30-0500 Systolic blood pressure 128 mm[Hg] Nandini Scarlett Other [facility] Other Encounters Encounter Date Encounter Type Care Provider Facility Start: 04-17-2023 End: 04-17-2023 ambulatory SALMA MONET . Facility:[facility] Start: 04-06-2023 End: 04-07-[address] MELODIE HARGROVE . Facility:[facility] Start: 04-04-2023 Encounter for genera l adult medical examination without abnormal findings DR MELODIE HARGROVE . [facility] Start: 04-03-2023 End: 04-04-2023 ambulatory [...] 11-19-2021 End: 11-19-2021 ambulatory Nandini Pantoja Other [facility] Other Start: 11-19-2021 Office outpatient ne w 30 minutes Nandini Pantoja [facility] G[facility] Start: 12-20-2018 End: 12-21-2018 Patient encounter procedure ANDRESSA ESCALANTE [facility] Procedures Date Procedure Procedure Detail Performing Clinician [...] Hepatitis C screening Hepatitis C An tibody [facility] Start: 2011 Tetanus + diphtheria + acellular pertussis vaccine (product) Tdap [facility]oster [facility] Start: 2008 HIV screening HIV Test [facility] [place] Start: 1998 COVID-19 Vaccine (1) COVID-19 Vaccin e (1) [facility] Immunizations Immunization Date Immunization Notes Care Provider Fa jsesica 03-21-2014 influenza virus vacc ine, unspecified formulation Estella Guerrero MD Work Phone: [facility] Payers Date Payer Category Payer Unknown [facility] [employer]ICA[employer] [id number] 2017-Present [id number] 1995 Unknown [id number] [id number] 1995 Unknown [id number] [id number] 1993 Unknown [id number] 2.16.840.1.928731.3.579.2.593 1993 Unknown [id number] 2.16.840.1.283932.3.579.2.593 1993 Unknown [id number] 2.16.840.1.874926.3.579.2.593 1993 Unknown [id number] 2.16.840.1.839335.3.579.2.593 1993 Unknown [id number] 2.16.840.1.446485.3.579.2.593 1993 Unknown [id number] 2.16.840.1.339029.3.579.2.593 1993 Unknown [id number] 2.16.840.1.203091.3.579.2.593 1993 Unknown [id number] 2.16.840.1.569411.3.579.2.593 1993 Unknown [id number] 2.16.840.1.923817.3.579.2.593 1993 Unknown [id number] 2.16.840.1.855635.3.579.2.593 1993 Unknown [id number] 2.16.840.1.743536.3.579.2.593 1993 Unknown [id number] 2.16.840.1.298260.3.579.2.593 1959 Unknown [id number] Social History Date Type Detail Facility Tobacco smoking status [facility] Tobacco smoking consumption unknown [facility] Other Start: 1995 Sex Assigned At Not on file M [facility] Clinical Note 05-13-2022 Note Date & Type Note Facility 05-13-2022 Note PROCEDURE: XR SHOULD ER RT 2V or > COMPARISON: None. HISTORY: Pain of right shoulder joint FINDINGS: BONES:No fracture, acute abnormality, or significant arthropathy. SOFT TISSUES:Negative. No visible soft tissue swelling. EFFUSION:None visible. OTHER: Negative. IMPRESSION: Normal examination. Electronically authenticated by: NANDINI MAYER Date: 2022-05-13 08:41 [facility] History of Present illness Narrative [...] Hair) regarding headaches-- will fax information to [phone] - Offered referral to neurology, patient prefers [...] Francisco Ayers MD documented in this encounter [facility] History of Present illness Narrative 03-18-2022 Francisco [...] Hair) regarding headaches-- will fax information to [phone] - Offered referral to neurology, patient prefers [...] Francisco Ayers MD documented in this encounter [facility] Clinical Note 09-23-2021 Note Date & Type Note Facility 09-23-2021 Note Chief Complaint consultation for epigastric pain HPI Staff 26 year old female presents on 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 RUQ US completed 09/19 [...] Pantoprazole 40 mg (more content not included)... 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 RUQ US completed 09/19 [...] - Denies Alcoho (more content not included)... [facility] Comment on above: Result Comment: [...] Date & Type Note Facility Evaluation note [facility] [employer] Other History general Narrative - Reported Note Date & Type Note Facility History general Narrative - Reported [facility] [employer] Other Summary Purpose Family History No Family [...] DATE CREATED AUTHOR AUTHOR'S ORGANIZ ATION 11/09/2021 [facility] DATE CREATED AUTHOR AUTHOR'S ORGANIZ ATION 03/20/2022 [...] BE BASED ON THE PRIMARY CLINICAL RECORDS. [facility] provides no warranty or guarantee of the accuracy or completeness of information in this document.
== END 2023-12-02 11:51 | disposition home or self-care (01) ==
LOC: LAB 11:50
PROVIDERS: PCP Family Medicine; Visit Provider Family Medicine
DX: N39.0 Urinary tract infection, site not specified (principal); R80.9 Proteinuria, unspecified; N28.9 Disorder of kidney and ureter, unspecified; K58.9 Irritable bowel syndrome, unspecified
CPT/HCPCS: 36415; 80069; 81001; 82570; 82784; 83516; 83521; 84155; 84156; 84165; 84166; 86037; 86334; 86335; 86803; 87086; 87150; 87186; 87340

== ENCOUNTER 2023-12-02 13:09 | Outpatient (OUT) | payer OTHER, SELFPAY ==
--- OUTSIDE RECORDS SUMMARY | 2023-12-02 13:16 | XMS_ITS | CCD ---
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 Name Role Phone ANDRESSA ESCALANTE Referring Unavailable [...] Date of Onset Reaction(s) Facility (1 source) [facility] [place]; Translations: [[facility] [place]] Propensity to adverse reactions (disorder) 0 [facility] Repository Medications Current Medications Medication Drug [...] 3 Episodic Other aftercare (1 source) Other [facility] (current) drug therapy; Translations: [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 Saray Souza CARDIAC NELI ADMITon 023 CK [Catalytic activity/Vol] 47 U/L Normal 26-192 [facility] Comment on above: Performed By: #### I CURLYULIN #### [facility] [address] [place] [address] Dr. Saray Souza CK.MB [Mass/Vol] 1.02 ng/mL Normal <=3.60 [facility] Comment on above: Performed By: #### I CURLYULIN #### [facility] [address] [place] [address] Dr. Saray Souza HSTROP 4.5 pg/mL Normal 4.0-51.3 [facility] Comment on above: Result Comment: CUT- OFF POINTS HAVE BEEN ESTABLISHED BASED ON THE FOURTH UNIVERSAL DEFINITIONS OF MYOCARDIAL INFARCTION. THE UPPER REFERENCE LIMIT (URL) OF TROPONIN, DEFINED THE 99TH PERCENTILE OF cTnI DISTRIBUTION IN A REFERENCE POPULATION, HAS BEEN CONFIRMED THE DECISION THRESHOLD FOR WA DIAGNOSIS. Performed By: #### I NSULIN #### [facility] [address] [place] [address] Dr. Saray Souza FRANKLIN 36 ng/mL Normal 9-82 [facility] Comment on above: Performed By: #### I CURLYULIN #### [facility] [address] [address] [address] Saray Souza CBC W MANUAL DIFFon 04-17-20 23 ATYPICAL LYMPH # Normal [facility] Comment on above: Performed By: #### C EDGARDO #### [facility] [address] [place] [address] Dr. Saray Souza ATYPICAL LYMPH % Normal [facility] Comment on above: Performed By: #### C BCMAN #### [facility] [address] [place] [address] Dr. Saray Souza BAND # 0.3 103/ul Normal 0.0-0.3 [facility] Comment on above: Performed By: #### C EDGARDO #### [facility] [address] [place] [address] Dr. Saray Souza BAND % 1 % Normal 0-5 [facility] Comment on above: Performed By: #### C BCPRESLEY #### [facility] [address] [place] [address] Dr. Saray Souza BASOM # 0.00 103/ul Normal 0.00-0.10 [facility] Comment on above: Performed By: #### C BCPRESLEY #### [facility] [address] [place] [address] Dr. Saray Souza BASOM % 0.0 % Critically low 0.2-2.0 [facility] Comment on above: Performed By: #### C BCMAN #### [facility] [address] [place] [address] Dr. Saray Souza BLAST # Normal [facility] Comment on above: Performed By: #### C EDGARDO #### [facility] [address] [place] [address] Dr. Saray Souza BLAST % Normal [facility] Comment on above: Performed By: #### C EDGARDO #### [facility] [address] [place] [address] Dr. Saray Souza CORRECTED WBC Normal 4.0-11.0 [facility] Comment on above: Performed By: #### C EDGARDO #### [facility] [address] [place] [address] Dr. Saray Souza EOS # 0.00 103/ul Normal 0.00-0.70 [facility] Comment on above: Performed By: #### C EDGARDO #### [facility] [address] [place] [address] Dr. Saray Souza EOS% 0.0 % Critically low 0.9-7.0 [facility] Comment on above: Performed By: #### C BCPRESLEY #### [facility] [address] [place] [address] Dr. Saray Souza HCT 43.6 % Normal 36.0-48.0 [facility] Comment on above: Performed By: #### C EDGARDO #### [facility] [address] [place] [address] Dr. Saray Souza HGB 14.7 g/dl Normal 12.0-16.0 [facility] Comment on above: Performed By: #### C EDGARDO #### [facility] [address] [address] [address] Saray Souza LYMPHM # 1.55 103/ul Normal 1.20-3.80 [facility] Comment on above: Performed By: #### C EDGARDO #### [facility] [address] [address] [address] Saray Souza LYMPHM% 6.0 % Critically low 20.5-60.0 [facility] Comment on above: Performed By: #### C EDGARDO #### [facility] [address] [address] [address] Saray Souza MCH 30.3 pg Normal 26.7-34.0 [facility] Comment on above: Performed By: #### C EDGARDO #### [facility] [address] [place] [address] Dr. Saray Souza MCHC 33.7 g/dl Normal 29.9-35.2 [facility] Comment on above: Performed By: #### Sweetie REYNOSO #### [facility] [address] [place] [address] Dr. Saray Souza MCV 89.9 fL Normal 81.0-99.0 [facility] Comment on above: Performed By: #### C EDGARDO #### [facility] [address] [place] [address] Dr. Saray Souza METAMYELOCYTE # Normal [facility] Comment on above: Performed By: #### Sweetie REYNOSO #### [facility] [address] [place] [address] Dr. Saray Souza METAMYELOCYTE % Normal [facility] Comment on above: Performed By: #### C EDGARDO #### [facility] [address] [place] [address] Dr. Saray Souza MONOM# 2.06 103/ul Critically high 0.30-0.80 [facility] Comment on above: Performed By: #### Sweetie REYNOSO #### [facility] [address] [place] [address] Dr. Saray Souza MONOM% 8.0 % Normal 1.7-12.0 [facility] Comment on above: Performed By: #### C EDGARDO #### [facility] [address] [place] [address] Dr. Saray Souza MPV 8.8 fL Critically low 9.5-13.5 [facility] Comment on above: Performed By: #### C BCPRESLEY #### [facility] [address] [place] [address] Dr. Saray Souza MYELOCYTE # Normal [facility] Comment on above: Performed By: #### C EDGARDO #### [facility] [address] [place] [address] Dr. Saray Souza MYELOCYTE % Normal [facility] Comment on above: Performed By: #### C EDGARDO #### [facility] [address] [place] [address] Dr. Saray Souza NRBC Normal [facility] Comment on above: Performed By: #### C EDGARDO #### [facility] [address] [place] [address] Dr. Saray Souza PLT 397 103/ul Normal 150-450 [facility] Comment on above: Performed By: #### C EDGARDO #### [facility] [address] [place] [address] Dr. Saray Souza RBC 4.85 106/ul Normal 4.20-5.40 [facility] Comment on above: Performed By: #### C EDGARDO #### [facility] [address] [place] [address] Dr. Saray Souza RDW 12.0 % Normal 11.0-15.0 [facility] Comment on above: Performed By: #### C BCPRESLEY #### [facility] [address] [place] [address] Dr. Saray Souza SEG # 21.93 103/ul Critically high 1.40-6.50 [facility] Comment on above: Performed By: #### C EDGARDO #### [facility] [address] [place] [address] Dr. Saray Souza SEG % 85.0 % Critically high 43.0-75.0 [facility] Comment on above: Performed By: #### C BCMAN #### [facility] [address] [place] [address] Dr. Saray Souza WBC 25.8 103/ul Critically high 4.0-11.0 [facility] Comment on above: Performed By: #### C BCMAN #### [facility] [address] [place] [address] Dr. Saray Souza CULTURE URINEon 04-17-2023 CULTURE URINE Culture Observations : LORENZO TO FOLLOW. Isolate 1 Enterococcus faecalis 20,000 cfu/mL of Normal [facility] Comment on above: Performed By: #### C BC #### [facility] [address] [place] [address] Dr. Saray Souza ER URINE PROFILEon 3 Bilirubin Ql (U) Negative Normal NEGATIVE [facility] Comment on above: Performed By: #### C BC #### [facility] [address] [place] [address] Dr. Saray Souza Clarity (U) CLEAR Normal CLEAR [facility] Comment on above: Performed By: #### C BC #### [facility] [address] [place] [address] Dr. Saray Souza Color (U) LT. YELLOW Normal YELLOW [facility] Comment on above: Performed By: #### C BC #### [facility] [address] [place] [address] Dr. Saray [facility] A micrscopic examination will be performed if indicated. Normal [facility] Comment on above: Performed By: #### C BC #### [facility] [address] [place] [address] Dr. Saray Souza Glucose Ql (U) Negative Normal NEGATIVE [facility] Comment on above: Performed By: #### C BC #### [facility] [address] [place] [address] Dr. Saray Souza Hemoglobin Ql (U) Negative Normal NEGATIVE [facility] Comment on above: Performed By: #### C BC #### [facility] [address] [place] [address] Dr. Saray Souza Ketones Ql (U) Negative Normal NEGATIVE [facility] Comment on above: Performed By: #### C BC #### [facility] [address] [place] [address] Dr. Saray Souza LEUKOCYTES SMALL Abnormal NEGATIVE [facility] Comment on above: Performed By: #### C BC #### [facility] [address] [place] [address] Dr. Saray Souza Nitrite Ql (U) Negative Normal NEGATIVE [facility] Comment on above: Performed By: #### C BC #### [facility] [address] [place] [address] Dr. Saray Souza pH (U) 6.5 [pH] Normal 5-9 [facility] Comment on above: Performed By: #### C BC #### [facility] [address] [place] [address] Dr. Saray Souza SPEC GRAVITY 1.025 Normal 1.005-<=1.025 [facility] Comment on above: Performed By: #### C BC #### [facility] [address] [place] [address] Dr. Saray Souza UA PROTEIN Negative Normal NEGATIVE/ TRACE [facility] Comment on above: Performed By: #### C BC #### [facility] [address] [place] [address] Dr. Saray Souza UR MICRO IND INDICATED Normal [facility] Comment on above: Performed By: #### C BC #### [facility] [address] [place] [address] Dr. Saray Souza Urobilinogen Qn (U) 0.2 {Janine'U}/dL Normal 0.2 - 1. 0 [facility] Comment on above: Performed By: #### C BC #### [facility] [address] [place] [address] Dr. Saray Souza URon 04-17-2023 , QUAL Negative Normal NEGATIVE [facility] Comment on above: Performed By: #### C BC #### [facility] [address] [place] [address] Dr. Saray Souza PROF 14(COMP METB)on 023 Albumin [Mass/Vol] 3.0 g/dL Critically low 3.4-5.0 [facility] Comment on above: Performed By: #### I NSULIN #### [facility] [address] [place] [address] Dr. Saray Souza Albumin/Globulin [Mass ratio] 0.9 {ratio} Normal [facility] Comment on above: Performed By: #### I NSULIN #### [facility] [address] [place] [address] Dr. Saray Souza ALP [Catalytic activity/Vol] 54 U/L Normal 46-116 [facility] Comment on above: Performed By: #### I NSULIN #### [facility] [address] [place] [address] Dr. Saray Souza ALT [Catalytic activity/Vol] 27 U/L Normal 14-59 [facility] Comment on above: Performed By: #### I NSULIN #### [facility] [address] [place] [address] Dr. Saray Souza Anion gap [Moles/Vol] 12.9 mmol/L Normal [facility] Comment on above: Performed By: #### I NSULIN #### [facility] [address] [place] [address] Dr. Saray Souza AST [Catalytic activity/Vol] 12 U/L Critically low 15-37 [facility] Comment on above: Performed By: #### I NSULIN #### [facility] [address] [place] [address] Dr. Saray Souza Bilirubin [Mass/Vol] 0.3 mg/dL Normal 0.2-1.0 [facility] Comment on above: Performed By: #### I NSULIN #### [facility] [address] [place] [address] Dr. Saray Souza Calcium [Mass/Vol] 8.1 mg/dL Critically low 8.5-10.1 [facility] Comment on above: Performed By: #### I NSULIN #### [facility] [address] [place] [address] Dr. Saray Souza Chloride [Moles/Vol] 102 mmol/L Normal 98-107 [facility] Comment on above: Performed By: #### I NSULIN #### [facility] [address] [address] [address] Saray Souza CO2 [Moles/Vol] 26.2 mmol/L Normal 21.0-32.0 [facility] Comment on above: Performed By: #### I NSULIN #### [facility] [address] [place] [address] Dr. Saray Souza Creatinine [Mass/Vol] 0.87 mg/dL Normal 0.55-1.02 [facility] Comment on above: Performed By: #### I NSULIN #### [facility] [address] [place] [address] Dr. Saray Souza EGFR-AF NICARAGUAN >60 Normal >=60 [facility] Comment on above: Performed By: #### I NSULIN #### [facility] [address] [place] [address] Dr. Saray Souza EGFR-NON AF NICARAGUAN >60 Normal >=60 [facility] Comment on above: Performed By: #### I NSULIN #### [facility] [address] [place] [address] Dr. Saray Souza Globulin (S) [Mass/Vol] 3.2 g/dL Normal [facility] Comment on above: Performed By: #### I NSULIN #### [facility] [address] [place] [address] Dr. Saray Souza Glucose [Mass/Vol] 206 mg/dL Critically high 74-106 [facility] Comment on above: Performed By: #### I NSULIN #### [facility] [address] [place] [address] Dr. Saray Souza Potassium [Moles/Vol] 4.1 mmol/L Normal 3.5-5.1 [facility] Comment on above: Performed By: #### I NSULIN #### [facility] [address] [place] [address] Dr. Saray Souza Protein [Mass/Vol] 6.2 g/dL Critically low 6.4-8.2 [facility] Comment on above: Performed By: #### I NSULIN #### [facility] [address] [place] [address] Dr. Saray Souza Sodium [Moles/Vol] 137 mmol/L Normal 136-145 [facility] Comment on above: Performed By: #### I NSULIN #### [facility] [address] [place] [address] Dr. Saray Souza Urea nitrogen [Mass/Vol] 19.0 mg/dL Critically high 7.0-18.0 [facility] Comment on above: Performed By: #### I NSULIN #### [facility] [address] [place] [address] Dr. Saray Souza Urea nitrogen/Creatinine [Mass ratio] 21.8 mg/mg Normal [facility] Comment on above: Performed By: #### I NSULIN #### [facility] [address] [place] [address] Dr. Saray Souza TSHon 04-17-2023 TSH 0.553 uIU/mL Normal 0.358-3.740 [facility] Comment on above: Performed By: #### I NSULIN #### [facility] [address] [place] [address] Dr. Saray Souza URINE MICROSCOPIC ONLYon BACTERIA TRACE Abnormal NONE SEEN [facility] Comment on above: Performed By: #### C BC #### [facility] [address] [place] [address] Dr. Saray Souza Bacteria identified Cx Nom (U) INDICATED Normal [facility] Comment on above: Performed By: #### C BC #### [facility] [address] [place] [address] Dr. Saray Souza CAST NONE SEEN Normal NONE SEEN [facility] Comment on above: Performed By: #### C BC #### [facility] [address] [place] [address] Dr. Saray Souza Crystals LM Nom (Urine sed) NONE SEEN Normal NONE SEEN [facility] Comment on above: Performed By: #### C BC #### [facility] [address] [address] [address] Saray Souza Epithelial cells LM Ql (Urine sed) RARE Normal NONE SEEN /RARE [facility] Comment on above: Performed By: #### C BC #### [facility] [address] [place] [address] Dr. Saray Souza MUCOUS NONE SEEN Normal NONE SEEN [facility] Comment on above: Performed By: #### C BC #### [facility] [address] [address] [address] Saray Souza RBC 0-2 Normal 0-2 [facility] Comment on above: Performed By: #### C BC #### [facility] [address] [place] [address] Dr. Saray Souza WBC 5-10 Abnormal NONE SEEN [facility] Comment on above: Performed By: #### C BC #### [facility] [address] [place] [address] Dr. Saray Souza XR CHEST 2 Von [...] CAROL RAMIREZ Date: 2023-04-17 10:45 Normal [facility] INSULINon 04-07-2023 Insulin 11.3 uIU/mL Normal 2.6-24.9 [facility] Comment on above: Performed By: #### I NSULIN #### [facility] [address] [place] [address] Dr. Saray Souza US KIDNEYS BLADDERon 023 [...] NANDINI MAYER Date: 2023-04-04 08:22 Normal [facility] INSULINon 04-02-2023 Insulin 37.5 uIU/mL Critically high 2.6-24.9 [facility] Comment on above: Performed By: #### I NSULIN #### [facility] [address] [place] [address] Dr. Saray Souza CBC AUTO DIFFon 04-01-2023 BASO # 0.0 103/ul Normal 0.0-0.1 [facility] Comment on above: Performed By: #### C BC #### [facility] [address] [place] [address] Dr. Saray Souza Basophils/100 WBC (Bld) 0.5 % Normal 0.2-2.0 [facility] Comment on above: Performed By: #### C BC #### [facility] [address] [place] [address] Dr. Saray Souza EO # 0.2 103/ul Normal 0.0-0.7 [facility] Comment on above: Performed By: #### C BC #### [facility] [address] [place] [address] Dr. Saray Souza Eosinophils/100 WBC (Bld) 2.3 % Normal 0.9-7.0 [facility] Comment on above: Performed By: #### C BC #### [facility] [address] [place] [address] Dr. Saray Souza Erythrocyte distribution width (RBC) [Ratio] 11.9 % Normal 11.0-15.0 [facility] Comment on above: Performed By: #### C BC #### [facility] [address] [place] [address] Dr. Saray Souza Hematocrit (Bld) [Volume fraction] 42.2 % Normal 36.0-48.0 [facility] Comment on above: Performed By: #### C BC #### [facility] [address] [place] [address] Dr. Saray Souza Hemoglobin (Bld) [Mass/Vol] 13.7 g/dL Normal 12.0-16.0 [facility] Comment on above: Performed By: #### C BC #### [facility] [address] [place] [address] Dr. Saray Souza IG # 0.02 10e3/ul Normal 0.00-0.03 [facility] Comment on above: Performed By: #### C BC #### [facility] [address] [place] [address] Dr. Saray Souza IG % 0.3 % Normal 0.0-0.5 [facility] Comment on above: Performed By: #### C BC #### [facility] [address] [place] [address] Dr. Saray Souza LYMPH # 1.6 103/ul Normal 1.2-3.8 [facility] Comment on above: Performed By: #### C BC #### [facility] [address] [place] [address] Dr. Saray Souza Lymphocytes/100 WBC (Bld) 21.5 % Normal 20.5-60.0 [facility] Comment on above: Performed By: #### C BC #### [facility] [address] [place] [address] Dr. Saray Souza MANUAL DIFF REQ NO Normal [facility] Comment on above: Performed By: #### C BC #### [facility] [address] [place] [address] Dr. Saray Souza MCH (RBC) [Entitic mass] 30.0 pg Normal 26.7-34.0 [facility] Comment on above: Performed By: #### C BC #### [facility] [address] [address] [address] Saray Souza MCHC (RBC) [Mass/Vol] 32.5 g/dL Normal 29.9-35.2 [facility] Comment on above: Performed By: #### C BC #### [facility] [address] [place] [address] Dr. Saray Souza MCV (RBC) [Entitic vol] 92.5 fL Normal 81.0-99.0 [facility] Comment on above: Performed By: #### C BC #### [facility] [address] [place] [address] Dr. Saray Souza MONO # 0.7 103/ul Normal 0.3-0.8 [facility] Comment on above: Performed By: #### C BC #### [facility] [address] [place] [address] Dr. Saray Souza Monocytes/100 WBC (Bld) 9.6 % Normal 1.7-12.0 [facility] Comment on above: Performed By: #### C BC #### [facility] [address] [place] [address] Dr. Saray Souza NEUT # 5.0 103/ul Normal 1.4-6.5 [facility] Comment on above: Performed By: #### C BC #### [facility] [address] [place] [address] Dr. Saray Souza Neutrophils/100 WBC (Bld) 65.8 % Normal 43.0-75.0 [facility] Comment on above: Performed By: #### C BC #### [facility] [address] [place] [address] Dr. Saray Souza Platelet mean volume (Bld) [Entitic vol] 8.9 fL Critically low 9.5-13.5 [facility] Comment on above: Performed By: #### C BC #### [facility] [address] [place] [address] Dr. Saray Souza PLT 293 103/ul Normal 150-450 [facility] Comment on above: Performed By: #### C BC #### [facility] [address] [place] [address] Dr. Saray Souza RBC 4.56 106/ul Normal 4.20-5.40 [facility] Comment on above: Performed By: #### C BC #### [facility] [address] [place] [address] Dr. Saray Souza WBC 7.5 103/ul Normal 4.0-11.0 [facility] Comment on above: Performed By: #### C BC #### [facility] [address] [place] [address] Dr. Saray Souza CULTURE URINEon 04-01-2023 CULTURE URINE Culture Observations : MODERATE GROWTH OF MIXED GENITAL CARMELO. NO POTENTIAL PATHOGENS SEEN. Normal [facility] Comment on above: Performed By: #### C BC #### [facility] [address] [place] [address] Dr. Saray Souza FREE THYROXINE INDEX T7on FTI 2.51 Normal 1.30-4.50 [facility] Comment on above: Performed By: #### I NSULIN #### [facility] [address] [place] [address] Dr. Saray Souza T3U 33.0 % Normal 30.0-39.0 [facility] Comment on above: Performed By: #### I NSULIN #### [facility] [address] [place] [address] Dr. Saray Suoza T4 [Mass/Vol] 7.60 ug/dL Normal 4.80-13.90 The [facility] Comment on above: Performed By: #### I NSULIN #### [facility] [address] [place] [address] Dr. Saray Souza IRONon 04-01-2023 Iron [Mass/Vol] 151.0 ug/dL Normal 50.0-170.0 [facility] Comment on above: Performed By: #### C BCMAN #### [facility] [address] [place] [address] Dr. Saray Souza PROF 14(COMP METB)on 023 Albumin [Mass/Vol] 3.7 g/dL Normal 3.4-5.0 [facility] Comment on above: Performed By: #### C EDGARDO #### [facility] [address] [place] [address] Dr. Saray Souza Albumin/Globulin [Mass ratio] 1.1 {ratio} Normal [facility] Comment on above: Performed By: #### C BCPRESLEY #### [facility] [address] [address] [address] Saray Souza ALP [Catalytic activity/Vol] 81 U/L Normal 46-116 [facility] Comment on above: Performed By: #### C BCPRESLEY #### [facility] [address] [place] [address] Dr. Saray Souza ALT [Catalytic activity/Vol] 33 U/L Normal 14-59 [facility] Comment on above: Performed By: #### C EDGARDO #### [facility] [address] [place] [address] Dr. Saray Souza Anion gap [Moles/Vol] 10.2 mmol/L Normal [facility] Comment on above: Performed By: #### C BCPRESLEY #### [facility] [address] [place] [address] Dr. Saray Souza AST [Catalytic activity/Vol] 22 U/L Normal 15-37 [facility] Comment on above: Performed By: #### C EDGARDO #### [facility] [address] [place] [address] Dr. Saray Souza Bilirubin [Mass/Vol] 0.3 mg/dL Normal 0.2-1.0 [facility] Comment on above: Performed By: #### C BCPRESLEY #### [facility] [address] [address] [address] Saray Souza Calcium [Mass/Vol] 8.6 mg/dL Normal 8.5-10.1 [facility] Comment on above: Performed By: #### C EDGARDO #### [facility] [address] [place] [address] Dr. Saray Souza Chloride [Moles/Vol] 105 mmol/L Normal 98-107 [facility] Comment on above: Performed By: #### C BCMAN #### [facility] [address] [address] [address] Saray Souza CO2 [Moles/Vol] 30.4 mmol/L Normal 21.0-32.0 [facility] Comment on above: Performed By: #### C BCMAN #### [facility] [address] [address] [address] Saray Souza Creatinine [Mass/Vol] 0.72 mg/dL Normal 0.55-1.02 [facility] Comment on above: Performed By: #### C BCMAN #### [facility] [address] [address] [address] Saray Souza EGFR-AF NICARAGUAN >60 Normal >=60 [facility] Comment on above: Performed By: #### C BCPRESLEY #### [facility] [address] [address] [address] Saray Souza EGFR-NON AF NICARAGUAN >60 Normal >=60 [facility] Comment on above: Performed By: #### C BCMAN #### [facility] [address] [address] [address] Saray Souza Globulin (S) [Mass/Vol] 3.5 g/dL Normal [facility] Comment on above: Performed By: #### C BCMAN #### [facility] [address] [address] [address] Saray Souza Glucose [Mass/Vol] 89 mg/dL Normal 74-106 [facility] Comment on above: Performed By: #### C BCMAN #### [facility] [address] [address] [address] Saray Souza Potassium [Moles/Vol] 3.6 mmol/L Normal 3.5-5.1 [facility] Comment on above: Performed By: #### C BCMAN #### [facility] [address] [address] [address] Saray Souza Protein [Mass/Vol] 7.2 g/dL Normal 6.4-8.2 [facility] Comment on above: Performed By: #### C BCMAN #### [facility] [address] [place] [address] Dr. Saray Souza Sodium [Moles/Vol] 142 mmol/L Normal 136-145 [facility] Comment on above: Performed By: #### C EDGARDO #### [facility] [address] [place] [address] Dr. Saray Souza Urea nitrogen [Mass/Vol] 12.0 mg/dL Normal 7.0-18.0 [facility] Comment on above: Performed By: #### C EDGARDO #### [facility] [address] [place] [address] Dr. Saray Souza Urea nitrogen/Creatinine [Mass ratio] 16.7 mg/mg Normal [facility] Comment on above: Performed By: #### C EDGARDO #### [facility] [address] [place] [address] Dr. Saray Souza TSHon 04-01-2023 TSH 1.708 uIU/mL Normal 0.358-3.740 [facility] Comment on above: Performed By: #### I NSULIN #### [facility] [address] [place] [address] Dr. Saray Souza UA RANDOM W/MICROSCOPICon BACTERIA SMALL Abnormal NONE SEEN [facility] Comment on above: Performed By: #### I NSULIN #### [facility] [address] [place] [address] Dr. Saray Souza Bilirubin Ql (U) Negative Normal NEGATIVE [facility] Comment on above: Performed By: #### I NSULIN #### [facility] [address] [place] [address] Dr. Saray Souza CAST NONE SEEN Normal NONE SEEN [facility] Comment on above: Performed By: #### I NSULIN #### [facility] [address] [place] [address] Dr. Saray Souza Clarity (U) CLEAR Normal CLEAR [facility] Comment on above: Performed By: #### I NSULIN #### [facility] [address] [place] [address] Dr. Saray Souza Color (U) YELLOW Normal YELLOW [facility] Comment on above: Performed By: #### I NSULIN #### [facility] [address] [address] [address] Saray Souza Crystals LM Nom (Urine sed) NONE SEEN Normal NONE SEEN [facility] Comment on above: Performed By: #### I NSULIN #### [facility] [address] [place] [address] Dr. Saray Souza Epithelial cells LM Ql (Urine sed) FEW Abnormal NONE SEEN /RARE [facility] Comment on above: Performed By: #### I NSULIN #### [facility] [address] [address] [address] Saray Souza Glucose Ql (U) Negative Normal NEGATIVE [facility] Comment on above: Performed By: #### I NSULIN #### [facility] [address] [place] [address] Dr. Saray Souza Hemoglobin Ql (U) Negative Normal NEGATIVE [facility] Comment on above: Performed By: #### I NSULIN #### [facility] [address] [place] [address] Dr. Saray Souza Ketones Ql (U) TRACE Abnormal NEGATIVE [facility] Comment on above: Performed By: #### I NSULIN #### [facility] [address] [place] [address] Dr. Saray Souza LEUKOCYTES SMALL Abnormal NEGATIVE [facility] Comment on above: Performed By: #### I NSULIN #### [facility] [address] [address] [address] Saray Souza MUCOUS NONE SEEN Normal NONE SEEN [facility] Comment on above: Performed By: #### I NSULIN #### [facility] [address] [address] [address] Saray Souza Nitrite Ql (U) Negative Normal NEGATIVE [facility] Comment on above: Performed By: #### I NSULIN #### [facility] [address] [place] [address] Dr. Saray Souza pH (U) 5.5 [pH] Normal 5-9 [facility] Comment on above: Performed By: #### I NSULIN #### [facility] [address] [place] [address] Dr. Saray Souza RBC 0-2 Normal 0-2 [facility] Comment on above: Performed By: #### I NSULIN #### [facility] [address] [place] [address] Dr. Saray Souza SPEC GRAVITY >=1.030 Abnormal 1.005-<=1.025 [facility] Comment on above: Performed By: #### I NSULIN #### [facility] [address] [place] [address] Dr. Saray Souza UA PROTEIN Negative Normal NEGATIVE/ TRACE [facility] Comment on above: Performed By: #### I NSULIN #### [facility] [address] [place] [address] Dr. Saray oSuza Urobilinogen Qn (U) 0.2 {Janine'U}/dL Normal 0.2 - 1. 0 [facility] Comment on above: Performed By: #### I NSULIN #### [facility] [address] [place] [address] Dr. Saray Souza WBC 5-10 Abnormal NONE SEEN [facility] Comment on above: Performed By: #### I NSULIN #### [facility] [address] [place] [address] Dr. Saray Souza INSULINon 02-14-2023 Insulin 12.8 uIU/mL Normal 2.6-24.9 [facility] Comment on above: Performed By: #### C BC #### [facility] [address] [place] [address] Dr. Saray Souza CBC AUTO DIFFon 02-13-2023 BASO # 0.0 103/ul Normal 0.0-0.1 [facility] Comment on above: Performed By: #### C BC #### [facility] [address] [place] [address] Dr. Saray Souza Basophils/100 WBC (Bld) 0.4 % Normal 0.2-2.0 [facility] Comment on above: Performed By: #### C BC #### [facility] [address] [place] [address] Dr. Saray Souza EO # 0.1 103/ul Normal 0.0-0.7 [facility] Comment on above: Performed By: #### C BC #### [facility] [address] [place] [address] Dr. Saray Souza Eosinophils/100 WBC (Bld) 1.6 % Normal 0.9-7.0 [facility] Comment on above: Performed By: #### C BC #### [facility] [address] [place] [address] Dr. Saray Souza Erythrocyte distribution width (RBC) [Ratio] 11.9 % Normal 11.0-15.0 [facility] Comment on above: Performed By: #### C BC #### [facility] [address] [place] [address] Dr. Saray Souza Hematocrit (Bld) [Volume fraction] 41.9 % Normal 36.0-48.0 [facility] Comment on above: Performed By: #### C BC #### [facility] [address] [place] [address] Dr. Saray Souza Hemoglobin (Bld) [Mass/Vol] 13.7 g/dL Normal 12.0-16.0 [facility] Comment on above: Performed By: #### C BC #### [facility] [address] [place] [address] Dr. Saray Souza IG # 0.02 10e3/ul Normal 0.00-0.03 [facility] Comment on above: Performed By: #### C BC #### [facility] [address] [place] [address] Dr. Saray Souza IG % 0.3 % Normal 0.0-0.5 [facility] Comment on above: Performed By: #### C BC #### [facility] [address] [place] [address] Dr. Saray Souza LYMPH # 1.4 103/ul Normal 1.2-3.8 [facility] Comment on above: Performed By: #### C BC #### [facility] [address] [place] [address] Dr. Saray Souza Lymphocytes/100 WBC (Bld) 18.6 % Critically low 20.5-60.0 [facility] Comment on above: Performed By: #### C BC #### [facility] [address] [place] [address] Dr. Saray Souza MANUAL DIFF REQ NO Normal [facility] Comment on above: Performed By: #### C BC #### [facility] [address] [place] [address] Dr. Saray Souza MCH (RBC) [Entitic mass] 29.9 pg Normal 26.7-34.0 [facility] Comment on above: Performed By: #### C BC #### [facility] [address] [place] [address] Dr. Saray Souza MCHC (RBC) [Mass/Vol] 32.7 g/dL Normal 29.9-35.2 [facility] Comment on above: Performed By: #### C BC #### [facility] [address] [place] [address] Dr. Saray Souza MCV (RBC) [Entitic vol] 91.5 fL Normal 81.0-99.0 [facility] Comment on above: Performed By: #### C BC #### [facility] [address] [place] [address] Dr. Saray Souza MONO # 0.6 103/ul Normal 0.3-0.8 [facility] Comment on above: Performed By: #### C BC #### [facility] [address] [place] [address] Dr. Saray Souza Monocytes/100 WBC (Bld) 8.3 % Normal 1.7-12.0 [facility] Comment on above: Performed By: #### C BC #### [facility] [address] [place] [address] Dr. Saray Souza NEUT # 5.5 103/ul Normal 1.4-6.5 [facility] Comment on above: Performed By: #### C BC #### [facility] [address] [place] [address] Dr. Saray Souza Neutrophils/100 WBC (Bld) 70.8 % Normal 43.0-75.0 [facility] Comment on above: Performed By: #### C BC #### [facility] [address] [place] [address] Dr. Saray Souza Platelet mean volume (Bld) [Entitic vol] 9.0 fL Critically low 9.5-13.5 [facility] Comment on above: Performed By: #### C BC #### [facility] [address] [place] [address] Dr. Saray Souza PLT 271 103/ul Normal 150-450 [facility] Comment on above: Performed By: #### C BC #### [facility] [address] [place] [address] Dr. Saray Souza RBC 4.58 106/ul Normal 4.20-5.40 [facility] Comment on above: Performed By: #### C BC #### [facility] [address] [place] [address] Dr. Saray Souza WBC 7.7 103/ul Normal 4.0-11.0 [facility] Comment on above: Performed By: #### C BC #### [facility] [address] [place] [address] Dr. Saray Souza FREE THYROXINE INDEX T7on FTI 2.56 Normal 1.30-4.50 [facility] Comment on above: Performed By: #### I NSULIN #### [facility] [address] [place] [address] Dr. Saray Souza T3U 36.0 % Normal 30.0-39.0 [facility] Comment on above: Performed By: #### I NSULIN #### [facility] [address] [place] [address] Dr. Saray Souza T4 [Mass/Vol] 7.10 ug/dL Normal 4.80-13.90 [facility] Comment on above: Performed By: #### I NSULIN #### [facility] [address] [place] [address] Dr. Saray Souza IRONon 03-24-2023 Iron [Mass/Vol] 130.0 ug/dL Normal 50.0-170.0 [facility] Comment on above: Performed By: #### C EDGARDO #### [facility] [address] [place] [address] Dr. Saray Souza PROF 14(COMP METB)on 023 Albumin [Mass/Vol] 3.8 g/dL Normal 3.4-5.0 [facility] Comment on above: Performed By: #### I NSULIN #### [facility] [address] [place] [address] Dr. Saray Souza Albumin/Globulin [Mass ratio] 1.2 {ratio} Normal [facility] Comment on above: Performed By: #### I NSULIN #### [facility] [address] [place] [address] Dr. Saray Souza ALP [Catalytic activity/Vol] 82 U/L Normal 46-116 [facility] Comment on above: Performed By: #### I NSULIN #### [facility] [address] [place] [address] Dr. Saray Souza ALT [Catalytic activity/Vol] 25 U/L Normal 14-59 [facility] Comment on above: Performed By: #### I NSULIN #### [facility] [address] [place] [address] Dr. Saray Souza Anion gap [Moles/Vol] 12.7 mmol/L Normal [facility] Comment on above: Performed By: #### I NSULIN #### [facility] [address] [place] [address] Dr. Saray Souza AST [Catalytic activity/Vol] 19 U/L Normal 15-37 [facility] Comment on above: Performed By: #### I NSULIN #### [facility] [address] [place] [address] Dr. Saray Souza Bilirubin [Mass/Vol] 0.3 mg/dL Normal 0.2-1.0 [facility] Comment on above: Performed By: #### I NSULIN #### [facility] [address] [place] [address] Dr. Saray Souza Calcium [Mass/Vol] 8.8 mg/dL Normal 8.5-10.1 [facility] Comment on above: Performed By: #### I NSULIN #### [facility] [address] [address] [address] Saray Souza Chloride [Moles/Vol] 101 mmol/L Normal 98-107 [facility] Comment on above: Performed By: #### I NSULIN #### [facility] [address] [address] [address] Saray Souza CO2 [Moles/Vol] 27.3 mmol/L Normal 21.0-32.0 [facility] Comment on above: Performed By: #### I NSULIN #### [facility] [address] [place] [address] Dr. Saray Souza Creatinine [Mass/Vol] 0.69 mg/dL Normal 0.55-1.02 [facility] Comment on above: Performed By: #### I NSULIN #### [facility] [address] [address] [address] Saray Souza EGFR-AF NICARAGUAN >60 Normal >=60 [facility] Comment on above: Performed By: #### I NSULIN #### [facility] [address] [place] [address] Dr. Saray Souza EGFR-NON AF NICARAGUAN >60 Normal >=60 [facility] Comment on above: Performed By: #### I NSULIN #### [facility] [address] [place] [address] Dr. Saray Souza Globulin (S) [Mass/Vol] 3.3 g/dL Normal [facility] Comment on above: Performed By: #### I NSULIN #### [facility] [address] [address] [address] Saray Souza Glucose [Mass/Vol] 83 mg/dL Normal 74-106 [facility] Comment on above: Performed By: #### I NSULIN #### [facility] [address] [place] [address] Dr. Saray Souza Potassium [Moles/Vol] 4.0 mmol/L Normal 3.5-5.1 [facility] Comment on above: Performed By: #### I NSULIN #### [facility] [address] [address] [address] Saray Souza Protein [Mass/Vol] 7.1 g/dL Normal 6.4-8.2 [facility] Comment on above: Performed By: #### I NSULIN #### [facility] [address] [address] [address] Saray Souza Sodium [Moles/Vol] 137 mmol/L Normal 136-145 [facility] Comment on above: Performed By: #### I NSULIN #### [facility] [address] [place] [address] Dr. Saray Souza Urea nitrogen [Mass/Vol] 10.0 mg/dL Normal 7.0-18.0 [facility] Comment on above: Performed By: #### I NSULIN #### [facility] [address] [place] [address] Dr. Saray Souza Urea nitrogen/Creatinine [Mass ratio] 14.5 mg/mg Normal [facility] Comment on above: Performed By: #### I NSULIN #### [facility] [address] [place] [address] Dr. Saray Souza TSHon 02-13-2023 TSH 2.745 uIU/mL Normal 0.358-3.740 [facility] Comment on above: Performed By: #### I NSULIN #### [facility] [address] [place] [address] Dr. Saray Souza AMYLASEon 02-04-2023 Amylase [Catalytic activity/Vol] 45 U/L Normal 25-115 [facility] Comment on above: Performed By: #### T SH, CMP, HSTROPN, LIPA, LINDA #### [facility] [address] [place] [address] Dr. Saray Souza CBC AUTO DIFFon 02-04-2023 BASO # 0.0 103/ul Normal 0.0-0.1 [facility] Comment on above: Performed By: #### C BC #### [facility] [address] [place] [address] Dr. Saray Souza Basophils/100 WBC (Bld) 0.4 % Normal 0.2-2.0 [facility] Comment on above: Performed By: #### C BC #### [facility] [address] [place] [address] Dr. Saray Souza EO # 0.1 103/ul Normal 0.0-0.7 [facility] Comment on above: Performed By: #### C BC #### [facility] [address] [place] [address] Dr. Saray Souza Eosinophils/100 WBC (Bld) 1.7 % Normal 0.9-7.0 [facility] Comment on above: Performed By: #### C BC #### [facility] [address] [place] [address] Dr. Saray Souza Erythrocyte distribution width (RBC) [Ratio] 12.0 % Normal 11.0-15.0 [facility] Comment on above: Performed By: #### C BC #### [facility] [address] [place] [address] Dr. Saray Souza Hematocrit (Bld) [Volume fraction] 42.3 % Normal 36.0-48.0 [facility] Comment on above: Performed By: #### C BC #### [facility] [address] [place] [address] Dr. Saray Souza Hemoglobin (Bld) [Mass/Vol] 13.9 g/dL Normal 12.0-16.0 [facility] Comment on above: Performed By: #### C BC #### [facility] [address] [place] [address] Dr. Saray Souza IG # 0.03 10e3/ul Normal 0.00-0.03 [facility] Comment on above: Performed By: #### C BC #### [facility] [address] [place] [address] Dr. Saray Souza IG % 0.4 % Normal 0.0-0.5 [facility] Comment on above: Performed By: #### C BC #### [facility] [address] [place] [address] Dr. Saray Souza LYMPH # 1.5 103/ul Normal 1.2-3.8 [facility] Comment on above: Performed By: #### C BC #### [facility] [address] [place] [address] Dr. Saray Souza Lymphocytes/100 WBC (Bld) 20.4 % Critically low 20.5-60.0 [facility] Comment on above: Performed By: #### C BC #### [facility] [address] [place] [address] Dr. Saray Souza MANUAL DIFF REQ NO Normal [facility] Comment on above: Performed By: #### C BC #### [facility] [address] [place] [address] Dr. Saray Souza MCH (RBC) [Entitic mass] 30.0 pg Normal 26.7-34.0 [facility] Comment on above: Performed By: #### C BC #### [facility] [address] [place] [address] Dr. Saray Souza MCHC (RBC) [Mass/Vol] 32.9 g/dL Normal 29.9-35.2 [facility] Comment on above: Performed By: #### C BC #### [facility] [address] [place] [address] Dr. Saray Souza MCV (RBC) [Entitic vol] 91.2 fL Normal 81.0-99.0 [facility] Comment on above: Performed By: #### C BC #### [facility] [address] [place] [address] Dr. Saray Souza MONO # 0.6 103/ul Normal 0.3-0.8 [facility] Comment on above: Performed By: #### C BC #### [facility] [address] [place] [address] Dr. Saray Souza Monocytes/100 WBC (Bld) 7.7 % Normal 1.7-12.0 [facility] Comment on above: Performed By: #### C BC #### [facility] [address] [place] [address] Dr. Saray Souza NEUT # 5.2 103/ul Normal 1.4-6.5 [facility] Comment on above: Performed By: #### C BC #### [facility] [address] [place] [address] Dr. Saray Souza Neutrophils/100 WBC (Bld) 69.4 % Normal 43.0-75.0 [facility] Comment on above: Performed By: #### C BC #### [facility] [address] [place] [address] Dr. Saray Souza Platelet mean volume (Bld) [Entitic vol] 9.0 fL Critically low 9.5-13.5 [facility] Comment on above: Performed By: #### C BC #### [facility] [address] [place] [address] Dr. Saray Souza PLT 292 103/ul Normal 150-450 [facility] Comment on above: Performed By: #### C BC #### [facility] [address] [place] [address] Dr. Saray Souza RBC 4.64 106/ul Normal 4.20-5.40 [facility] Comment on above: Performed By: #### C BC #### [facility] [address] [place] [address] Dr. Saray Souza WBC 7.5 103/ul Normal 4.0-11.0 [facility] Comment on above: Performed By: #### C BC #### [facility] [address] [place] [address] Dr. Saray Souza CULTURE URINEon 02-04-2023 CULTURE URINE Culture Observations : LIGHT GROWTH OF MIXED GENITAL CARMELO. NO POTENTIAL PATHOGENS SEEN. Normal [facility] Comment on above: Performed By: #### C BC #### [facility] [address] [place] [address] Dr. Saray Souza ER URINE PROFILEon 3 Bilirubin Ql (U) Negative Normal NEGATIVE [facility] Comment on above: Performed By: #### C BC #### [facility] [address] [place] [address] Dr. Saray Souza Clarity (U) CLEAR Normal CLEAR [facility] Comment on above: Performed By: #### C BC #### [facility] [address] [address] [address] Saray Souza Color (U) LT. YELLOW Normal YELLOW [facility] Comment on above: Performed By: #### C BC #### [facility] [address] [address] [address] Saray Souza ERUAHD A micrscopic examination will be performed if indicated. Normal [facility] Comment on above: Performed By: #### C BC #### [facility] [address] [address] [address] Saray Souza Glucose Ql (U) Negative Normal NEGATIVE [facility] Comment on above: Performed By: #### C BC #### [facility] [address] [place] [address] Dr. Saray Souza Hemoglobin Ql (U) Negative Normal NEGATIVE [facility] Comment on above: Performed By: #### C BC #### [facility] [address] [place] [address] Dr. Saray Souza Ketones Ql (U) Negative Normal NEGATIVE [facility] Comment on above: Performed By: #### C BC #### [facility] [address] [place] [address] Dr. Saray Souza LEUKOCYTES MODERATE Abnormal NEGATIVE [facility] Comment on above: Performed By: #### C BC #### [facility] [address] [place] [address] Dr. Saray Souza Nitrite Ql (U) Negative Normal NEGATIVE [facility] Comment on above: Performed By: #### C BC #### [facility] [address] [place] [address] Dr. Saray Souza pH (U) 5.5 [pH] Normal 5-9 [facility] Comment on above: Performed By: #### C BC #### [facility] [address] [place] [address] Dr. Saray Souza SPEC GRAVITY >=1.030 Abnormal 1.005-<=1.025 [facility] Comment on above: Performed By: #### C BC #### [facility] [address] [place] [address] Dr. Saray Souza UA PROTEIN Negative Normal NEGATIVE/ TRACE [facility] Comment on above: Performed By: #### C BC #### [facility] [address] [place] [address] Dr. Saray Souza UR MICRO IND INDICATED Normal [facility] Comment on above: Performed By: #### C BC #### [facility] [address] [place] [address] Dr. Saray Souza Urobilinogen Qn (U) 0.2 {Janine'U}/dL Normal 0.2 - 1. 0 [facility] Comment on above: Performed By: #### C BC #### [facility] [address] [place] [address] Dr. Saray Souza LIPASEon 02-04-2023 Lipase [Catalytic activity/Vol] 97.0 U/L Normal 73.0-393.0 [facility] Comment on above: Performed By: #### T SH, CMP, HSTROPN, LIPA, LINDA #### [facility] [address] [place] [address] Dr. Saray Souza URon 02-04-2023 , QUAL Negative Normal NEGATIVE [facility] Comment on above: Performed By: #### C BC #### [facility] [address] [place] [address] Dr. Saray Souza PROF 14(COMP METB)on 023 Albumin [Mass/Vol] 3.5 g/dL Normal 3.4-5.0 [facility] Comment on above: Performed By: #### T SH, CMP, HSTROPN, LIPA, LINDA #### [facility] [address] [place] [address] Dr. Saray Souza Albumin/Globulin [Mass ratio] 1.2 {ratio} Normal [facility] Comment on above: Performed By: #### T SH, CMP, HSTROPN, LIPA, LINDA #### [facility] [address] [place] [address] Dr. Saray Souza ALP [Catalytic activity/Vol] 78 U/L Normal 46-116 [facility] Comment on above: Performed By: #### T SH, CMP, HSTROPN, LIPA, LINDA #### [facility] [address] [place] [address] Dr. Saray Souza ALT [Catalytic activity/Vol] 24 U/L Normal 14-59 [facility] Comment on above: Performed By: #### T SH, CMP, HSTROPN, LIPA, LINDA #### [facility] [address] [place] [address] Dr. Saray Souza Anion gap [Moles/Vol] 7.9 mmol/L Normal [facility] Comment on above: Performed By: #### T SH, CMP, HSTROPN, LIPA, LINDA #### [facility] [address] [place] [address] Dr. Saray Souza AST [Catalytic activity/Vol] 16 U/L Normal 15-37 [facility] Comment on above: Performed By: #### T SH, CMP, HSTROPN, LIPA, LINDA #### [facility] [address] [place] [address] Dr. Saray Souza Bilirubin [Mass/Vol] 0.3 mg/dL Normal 0.2-1.0 [facility] Comment on above: Performed By: #### T SH, CMP, HSTROPN, LIPA, LINDA #### [facility] [address] [place] [address] Dr. Saray Souza Calcium [Mass/Vol] 8.6 mg/dL Normal 8.5-10.1 [facility] Comment on above: Performed By: #### T SH, CMP, HSTROPN, LIPA, LINDA #### [facility] [address] [place] [address] Dr. Saray Souza Chloride [Moles/Vol] 105 mmol/L Normal 98-107 [facility] Comment on above: Performed By: #### T SH, CMP, HSTROPN, LIPA, LINDA #### [facility] [address] [place] [address] Dr. Saray Souza CO2 [Moles/Vol] 28.9 mmol/L Normal 21.0-32.0 [facility] Comment on above: Performed By: #### T SH, CMP, HSTROPN, LIPA, LINDA #### [facility] [address] [address] [address] Saray Souza Creatinine [Mass/Vol] 0.67 mg/dL Normal 0.55-1.02 [facility] Comment on above: Performed By: #### T SH, CMP, HSTROPN, LIPA, LINDA #### [facility] [address] [place] [address] Dr. Saray Souza EGFR-AF NICARAGUAN >60 Normal >=60 [facility] Comment on above: Performed By: #### T SH, CMP, HSTROPN, LIPA, LINDA #### [facility] [address] [place] [address] Dr. Saray Souza EGFR-NON AF NICARAGUAN >60 Normal >=60 [facility] Comment on above: Performed By: #### T SH, CMP, HSTROPN, LIPA, LINDA #### [facility] [address] [place] [address] Dr. Saray Souza Globulin (S) [Mass/Vol] 3.0 g/dL Normal [facility] Comment on above: Performed By: #### T SH, CMP, HSTROPN, LIPA, LINDA #### [facility] [address] [place] [address] Dr. Saray Souza Glucose [Mass/Vol] 97 mg/dL Normal 74-106 [facility] Comment on above: Performed By: #### T SH, CMP, HSTROPN, LIPA, LINDA #### [facility] [address] [place] [address] Dr. Saray Souza Potassium [Moles/Vol] 3.8 mmol/L Normal 3.5-5.1 [facility] Comment on above: Performed By: #### T SH, CMP, HSTROPN, LIPA, LINDA #### [facility] [address] [place] [address] Dr. Saray Souza Protein [Mass/Vol] 6.5 g/dL Normal 6.4-8.2 [facility] Comment on above: Performed By: #### T SH, CMP, HSTROPN, LIPA, LINDA #### [facility] [address] [address] [address] Saray Souza Sodium [Moles/Vol] 138 mmol/L Normal 136-145 [facility] Comment on above: Performed By: #### T SH, CMP, HSTROPN, LIPA, LINDA #### [facility] [address] [place] [address] Dr. Saray Souza Urea nitrogen [Mass/Vol] 13.0 mg/dL Normal 7.0-18.0 [facility] Comment on above: Performed By: #### T SH, CMP, HSTROPN, LIPA, LINDA #### [facility] [address] [place] [address] Dr. Saray Souza Urea nitrogen/Creatinine [Mass ratio] 19.4 mg/mg Normal [facility] Comment on above: Performed By: #### T SH, CMP, HSTROPN, LIPA, LINDA #### [facility] [address] [place] [address] Dr. Saray Souza TROPONIN, HIGH SENSITIVITYon 02-04-2023 HSTROP 4.0 pg/mL Normal 4.0-51.3 [facility] Comment on above: Result Comment: CUT- OFF POINTS HAVE BEEN ESTABLISHED BASED ON THE FOURTH UNIVERSAL DEFINITIONS OF MYOCARDIAL INFARCTION. THE UPPER REFERENCE LIMIT (URL) OF TROPONIN, DEFINED THE 99TH PERCENTILE OF cTnI DISTRIBUTION IN A REFERENCE POPULATION, HAS BEEN CONFIRMED THE DECISION THRESHOLD FOR WA DIAGNOSIS. Performed By: #### T SH, CMP, HSTROPN, LIPA, LINDA #### [facility] [address] [place] [address] Dr. Saray Souza TSHon 02-04-2023 TSH 2.478 uIU/mL Normal 0.358-3.740 [facility] Comment on above: Performed By: #### T SH, CMP, HSTROPN, LIPA, LINDA #### [facility] [address] [place] [address] Dr. Saray Souza URINE MICROSCOPIC ONLYon BACTERIA MODERATE Abnormal NONE SEEN [facility] Comment on above: Performed By: #### C BC #### [facility] [address] [place] [address] Dr. Saray Souza Bacteria identified Cx Nom (U) INDICATED Normal [facility] Comment on above: Performed By: #### C BC #### [facility] [address] [place] [address] Dr. Saray Souza CAST NONE SEEN Normal NONE SEEN [facility] Comment on above: Performed By: #### C BC #### [facility] [address] [place] [address] Dr. Saray Souza Crystals LM Nom (Urine sed) NONE SEEN Normal NONE SEEN [facility] Comment on above: Performed By: #### C BC #### [facility] [address] [place] [address] Dr. Saray Souza Epithelial cells LM Ql (Urine sed) MODERATE Abnormal NONE SEEN /RARE [facility] Comment on above: Performed By: #### C BC #### [facility] [address] [place] [address] Dr. Saray Souza MUCOUS NONE SEEN Normal NONE SEEN [facility] Comment on above: Performed By: #### C BC #### [facility] [address] [place] [address] Dr. Saray Souza RBC 5-10 Abnormal 0-2 [facility] Comment on above: Performed By: #### C BC #### [facility] [address] [place] [address] Dr. Saray Souza WBC 10-20 Abnormal NONE SEEN [facility] Comment on above: Performed By: #### C BC #### [facility] [address] [place] [address] Dr. Saray Souza Covid-19 PCR (CVDTB)on 09-24 SARS-CoV-2 (COVID-19) RNA DAYDAY+probe Ql (Unsp spec) Not detected Normal NOT DETECTED [facility] Comment on above: Result Comment: When [...] for this test is supported by the Recreation Instructor of Health and Human Service's declaration that [...] used). Performed By: #### C BC #### [facility] [address] [place] [address] Dr. Saray Souza INFLUENZA A AND B [facility] 10-20 [facility] SEE BELOW Normal [facility] Comment on above: Result Comment: Nega tive for Flu A protein angiten. Infection due to Flu A cannot be ruled out. Flu A angiten in the sample may be below the detection limit of the test. Performed By: #### C BC #### [facility] [address] [place] [address] Dr. Saray Sou[facility] BEL[facility] Normal [facility] Comment on above: Result Comment: Nega tive for Flu B protein antigen. Infection due to Flu B cannot be ruled out. Flu B antigen in the sample may be below the detection limit of the test. Performed By: #### C BC #### [facility] [address] [place] [address] Dr. Saray Souza INFLUENZA A AG Negative Normal NEGATIVE SEE COMMENT [facility] Comment on above: Performed By: #### C BC #### [facility] [address] [place] [address] Dr. Saray Souza INFLUENZA B AG Negative Normal NEGATIVE SEE COMMENT [facility] Comment on above: Performed By: #### C BC #### [facility] [address] [place] [address] Dr. Saray Souza INTERNAL CONTROLS Within Normal Limits Normal Wi thin Normal Limits [facility] Comment on above: Performed By: #### C BC #### [facility] [address] [place], [place] [address] Dr. Saray Souza STREPT SCREENon 10-20-2022 STREP SCREEN A Positive Abnormal NEGATIVE [facility] Comment on above: Performed By: #### C BC #### [facility] [address] [place], [place] [address] Dr. Saray Souza XR SHOULDER RT INJon [...] ADRIANA MENDEZ Date: 2022-07-18 17:05 Normal [facility] MRI SHOULDER RT WO CONon MRI [...] by: ADRIANA MENDEZ Date: 2022-07-10 10:10 Normal [facility] XR ARTHRO SHLD RTon 07-10-20 XR [...] by: ADRIANA MENDEZ Date: 2022-07-10 10:01 Normal [facility] No Panel Informationon 03-18 Right Eye Reliability was good. Findings include normal observations. Left Eye Reliability was good. Findings include normal observations. Notes I personally reviewed the visual zaldivar performed by this patient on 03/18/22. The visual zaldivar are normal OU with good fixation. Francisco Ayers MD [facility] Rad[facility] Study observation (narrative) [facility] Progress Noteson 03-18-2022 [employer] Authentication Interface Message Text Referred by Retina [...] Hair) regarding headaches-- will fax information to [phone] - Offered referral to neurology, patient prefers [...] her PCP. Francisco Ayers MD Normal [facility] Ambulatory Clinical Summaryo n 10-09-2021 Ambulatory Clinical Summary {[id number]}CD:[id number] Normal [facility] General Surgery Office/Clini c Noteon 10-09-2021 General [...] Crystal Only if needed [address] [place] [address]- Additional Instructions: Problem List/Past Medical History Ongoing [...] SARS-CoV-2 (COVID-19) mRNA-1273 vaccine 03/18/2021 Recorded Normal [facility] Comment on above: Result Comment: Elec tronically Signed By: RUTH CLARK, Yonis Mckenzie\.br\Date and Time Signed: 10/09/21 15:14 EST Pathology Noteon 10-04-2021 Pathology Note [id number]. 00CD:127 Normal [facility] Operative Reporton Operative Report [id number] 0CD:127 Normal [facility] ECG 12-Leadon 10-02-2021 ECG 12-Lead [id number] 0CD:127 Normal [facility] Lab Reportson 10-02-2021 Lab Reports [id number] 0CD:127 Normal [facility] Consent for Procedure/Surger yon 10-01-2021 Consent for Procedure/Surgery [id number] 0CD:127 Normal [facility] Ambulatory Clinical Summaryo n 09-30-2021 Ambulatory Clinical Summary {[id number]}CD:[id number] Normal [facility] General Surgery Office/Clini c Noteon 09-30-2021 [...] to bid with some improvement; seen in [facility] 2 days ago, abd ct [...] SARS-CoV-2 (COVID-19) mRNA-1273 vaccine 03/18/2021 Recorded Normal [facility] Comment on above: Result Comment: Elec tronically Signed By: RUTH CLARK, Yonis Mckenzie\gaby\Date and Time Signed: 09/30/21 21:20 EST Outside Radiologyon 09-30-20 21 Outside Radiology [id number] 0CD:127 Normal [facility] Letter [facility] September 25, 2021 DANIEL CELAYA, [address], [place] [address] Re: ROSALIE FREEMAN Date of : 1995 Thank you for your referral of Rosalie Freeman who was seen on consultation on 09/20/2021 for 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 I have enclosed my consultation note for your review. I will be happy to follow Rosalie should her symptoms persist. Sincerely, Yonis Carney MD General Surgery Normal [facility] Ambulatory Clinical Summaryo n 09-20-2021 Ambulatory Clinical Summary {[id number]}CD:[id number] Normal [facility] ED Note-Physicianon 09-20-20 21 ED Note-Physician [id number] 0CD:127 Normal [facility] Physician Referralon 021 Physician Referral [id number] 0CD:127 Normal [facility] RAD - Ultrasound Reporton RAD - Ultrasound Report [id number] 0CD:127 Normal [facility] Cytologyon 12-20-2018 Cytology (NOTE) [id number] [employer] [facility] [address] [place] [address]. [place], [place] [address] GYNECOLOGIC CYTOLOGY REPORT Patient Name: ROSALIE FREEMAN V. MR#: [id number] Specimen #[id number] Source: 1: Cervical material, (ThinPrep vial, Imaging-assisted review) Clinical History Z01.419 Routine rn obgyn exam without abnormal findings High Risk HPV DNA testing is requested if the diagnosis is ASC-US LMP: implant INTERPRETATION Cervical material, (ThinPrep vial, Imaging-assisted review): Specimen Adequacy: Satisfactory for evaluation. - Endocervical/transform ation zone component present. - Scant cellularity; predominantly blood. Descriptive Diagnosis: Negative for intraepithelial lesion or malignancy. Molder Machine Tender: KANCHAN Mendoza(ASCP) Electronically Signed Out donna/01/03/2019 [facility] Comment on above: Performed By: #### P PPVP #### [facility] [address] [place] [address] Washing Machine Operator: Vega Wilkerson MD Vital Signs Date Time Vital Sign Value Performing Clinician Facility 11-19-2021 15:30-0500 Body height 180.34 cm Nandini Scarlett Other [facility] Other 11-19-2021 15:30-0500 Body mass index (BMI) [Ratio] 41.56 kg/m2 Nandini Scarlett Other [facility] Other 11-19-2021 15:30-0500 Body weight 135.17 kg Nandini Scarlett Other [facility] Other 11-19-2021 15:30-0500 Diastolic blood pressure 76 mm[Hg] Nandini Pantoja Other [facility] Other 11-19-2021 15:30-0500 Systolic blood pressure 128 mm[Hg] Nandini Scarlett Other [facility] Other Encounters Encounter Date Encounter Type Care Provider Facility Start: 04-17-2023 End: 04-17-2023 ambulatory SALMA MONET . Facility:[facility] Start: 04-06-2023 End: 04-07-[address] MELODIE HARGROVE . Facility:[facility] Start: 04-04-2023 Encounter for genera l adult medical examination without abnormal findings DR MELODIE HARGROVE . [facility] Start: 04-03-2023 End: 04-04-[address] [...] 11-19-2021 End: 11-19-2021 ambulatory Nandini Pantoja Other [facility] Other Start: 11-19-2021 Office outpatient ne w 30 minutes Nandini Patnoja [facility] Start: 12-20-2018 End: 12-21-2018 Patient encounter procedure ANDRESSA ESCALANTE [facility] Procedures Date Procedure Procedure Detail Performing [...] Hepatitis C screening Hepatitis C An tibody [facility] Start: 2011 Tetanus + diphtheria + acellular pertussis vaccine (product) Tdap Booster [facility] Start: 2008 HIV screening HIV Test [facility] Start: 1998 COVID-19 Vaccine (1) COVID-19 Vaccin e (1) [facility] Immunizations Immunization Date Immunization Notes Care Provider Fa jessica 03-21-2014 influenza virus vacc ine, unspecified formulation Estella Guerrero MD Work Phone: [facility] Payers Date Payer Category Payer Unknown [employer] [id number] 2017-Present [id number] 1995 Unknown [id number] 2.16.840.1.216983.3.579.2.173 1993 Unknown [id number] 2.16.840.1.498597.3.579.2.732 1993 Unknown [id number] 2.16.840.1.421055.3.579.2.593 1993 Unknown [id number] 2.16.840.1.056139.3.579.2.593 1993 Unknown [id number] 2.16.840.1.865606.3.579.2.593 1993 Unknown [id number] 2.16.840.1.710732.3.579.2.593 1993 Unknown [id number] 2.16.840.1.256128.3.579.2.593 1993 Unknown [id number] 2.16.840.1.905927.3.579.2.593 1993 Unknown [id number] 2.16.840.1.539044.3.579.2.593 1993 Unknown [id number] 2.16.840.1.971295.3.579.2.593 1993 Unknown [id number] 2.16.840.1.794660.3.579.2.593 1993 Unknown [id number] 2.16.840.1.891446.3.579.2.593 1993 Unknown [id number] 2.16.840.1.801938.3.579.2.593 1993 Unknown [id number] 2.16.840.1.457169.3.579.2.593 1959 Unknown [id number] Social History Date Type Detail Facility Tobacco smoking status [facility] Tobacco smoking consumption unknown [employer] Other Start: 1995 Sex Assigned At Not on file [facility] Clinical Note 05-13-2022 Note Date & Type Note Facility 05-13-2022 Note PROCEDURE: XR SHOULD ER RT 2V or > COMPARISON: None. HISTORY: Pain of right shoulder joint FINDINGS: BONES:No fracture, acute abnormality, or significant arthropathy. SOFT TISSUES:Negative. No visible soft tissue swelling. EFFUSION:None visible. OTHER: Negative. IMPRESSION: Normal examination. Electronically authenticated by: NANDINI MAYER Date: 2022-05-13 08:41 [facility] History of Present illness Narrative 03-18-2022 [...] Hair) regarding headaches-- will fax information to [phone] - Offered referral to neurology, patient prefers [...] Francisco Ayers MD documented in this encounter [facility] History of Present illness Narrative 03-18-2022 Francisco [...] Hair) regarding headaches-- will fax information to [phone] - Offered referral to neurology, patient prefers [...] Francisco Ayers MD documented in this encounter [facility] Clinical Note 09-23-2021 Note Date & Type Note Facility 09-23-2021 Note Chief Complaint consultation for epigastric pain HPI Staff 26 year old female presents on consultation from Kate Celaya PATTERN GENERATOR OPERATOR for 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 RUQ US completed 09/19 [...] Pantoprazole 40 mg (more content not included)... [facility] Comment on above: Result Comment: Elec tronically Signed By: RUTH CLARK, Yonis Cardenas\Date and Time Signed: 09/23/21 21:36 EDT Clinical Note 09-23-2021 Note Date & Type Note Facility 09-23-2021 Note Chief Complaint consultation for epigastric pain HPI Staff 26 year old female presents on consultation from Kate Celaya PATTERN GENERATOR OPERATOR for 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 RUQ US completed 09/19 [...] - Denies Alcoho (more content not included)... [facility] Comment on above: Result Comment: Elec [...] Date & Type Note Facility Evaluation note [facility] [employer] Other History general Narrative - Reported Note Date & Type Note Facility History general Narrative - Reported [facility] [employer] Other Summary Purpose Family History No Family [...] DATE CREATED AUTHOR AUTHOR'S ORGANIZ ATION 11/09/2021 [facility] DATE CREATED AUTHOR AUTHOR'S ORGANIZ ATION 03/20/2022 [facility] DATE CREATED AUTHOR AUTHOR'S ORGANIZ ATION 04/18/2023 [facility] Reason for Visit (unrecogniz ed [...] BE BASED ON THE PRIMARY CLINICAL RECORDS. [facility] [employer] [facility]. provides no warranty or guarantee of the accuracy or completeness of information in this document.
[2023-12-02 14:15] LABS: Creatinine Urine Random 218.39 mg/dL (20.00-300.00); Protein Creatinine Ratio Urine 0.05; Total Protein Urine Random 11.6 mg/dL (<=11.9)
[2023-12-02 14:26] LABS: Bilirubin Urine NEGATIVE (NEGATIVE); Blood Urine NEGATIVE (NEGATIVE); Clarity Urine CLEAR (CLEAR); Color Urine YELLOW (YELLOW); Glucose Urine UA NEGATIVE (NEGATIVE); Ketones Urine NEGATIVE (NEGATIVE); Leukocyte Esterase Urine TRACE (NEGATIVE); Nitrite Urine NEGATIVE (NEGATIVE); Protein Urine NEGATIVE (NEG/TRACE); Specific Gravity Urine 1.025 (1.005-1.025); Urobilinogen Urine 0.2 EU/dL (0.2-1.0)
[2023-12-02 14:34] LABS: Bacteria Urine NONE SEEN #/HPF (NONE SEEN); Mucus Urine MODERATE (NONE SEEN); RBC Urine NONE SEEN #/HPF (0-2); Squamous Epithelial Cell Urine MODERATE #/LPF (NONE/RARE); WBC Urine 0-2 #/HPF (NONE SEEN)
[2023-12-02 14:41] LABS: Albumin Level 3.5 g/dL (3.4-5.0); Anion Gap 8.9; BUN Creatinine Ratio 11.7; Calcium 8.6 mg/dL (8.5-10.1); Carbon Dioxide 30.4 mmol/L (21.0-32.0); Chloride 101 mmol/L (98-107); Estimated GFR (African America >60 (>=60); Estimated GFR (Non-African Ame >60 (>=60); Glucose 86 mg/dL (74-106); Phosphorus 3.1 mg/dL (2.6-4.7); Potassium 3.3 mmol/L (3.5-5.1); Sodium 137 mmol/L (136-145)
[2023-12-03 05:07] LABS: HBsAg Screen Negative (Negative)
[2023-12-03 06:09] LABS: HCV Ab Non Reactive (Non Reactive)
[2023-12-03 15:10] LABS: Albumin 3.8 g/dL (2.9-4.4); Alpha-1-Globulin 0.2 g/dL (0.0-0.4); Alpha-2-Globulin 0.7 g/dL (0.4-1.0); Free Kappa Lt Chains,S 17.2 mg/L (3.3-19.4); Free Lambda Lt Chains,S 16.7 mg/L (5.7-26.3); Immunoglobulin A, Qn, Serum 149 mg/dL (87-352); Immunoglobulin G, Qn, Serum 1006 mg/dL (586-1602); Immunoglobulin M, Qn, Serum 157 mg/dL (26-217); Kappa/Lambda Ratio,S 1.03 (0.26-1.65); Protein, Total 6.7 g/dL (6.0-8.5)
[2023-12-03 21:07] LABS: Anti-MPO Antibodies <0.2 units (0.0-0.9); Anti-PR3 Antibodies <0.2 units (0.0-0.9); Cytoplasmic (C-ANCA) <1:20 titer (Neg:<1:20); Perinuclear (P-ANCA) <1:20 titer (Neg:<1:20)
[2023-12-04 12:10] LABS: Albumin, U 28.5 % (.); Alpha-1-Globulin, U 3.8 % (.); Alpha-2-Globulin, U 17.5 % (.); Beta Globulin, U 38.5 % (.); Gamma Globulin, U 11.8 % (.); M-Spike, % Not Observed % (Not Observed); Protein,Total,Urine 14.2 mg/dL (Not Estab.)
== END 2023-12-02 13:10 | disposition home or self-care (01) ==
LOC: LAB 13:13
PROVIDERS: PCP Family Medicine; Visit Provider Internal Medicine
DX: R80.9 Proteinuria, unspecified (principal); N28.9 Disorder of kidney and ureter, unspecified; K58.9 Irritable bowel syndrome, unspecified
CPT/HCPCS: 36415; 80069; 81001; 82570; 82784; 83516; 83521; 84155; 84156; 84165; 84166; 86037; 86334; 86335; 86803; 87340

== ENCOUNTER 2023-12-07 08:06 | Outpatient (OUT) | payer OTHER, SELFPAY ==
--- OUTSIDE RECORDS SUMMARY | 2023-12-07 08:09 | XMS_ITS | CCD ---
Author Name Unknown Address [address] [place] [address] Organization [facility] Care Team Providers Care Squeegee Operator Name Role Phone AMYPalomoANDRESSA Referring Unavailable MELODIE HARGROVE Primary Care Unavailable [...] Unavailable HOY ., DR SEWELL Admkaty Unavailable MONCKS CORNER, DR NANDINI Stafford Consulting Unavailable HOY ., DR SEWELL Consulting Unavailable HOY ., DR SEWELL Primary Care Unavailable HOY ., DR SEWELL Attending Unavailable HOY ., DR SEWELL Admitting Unavailable HOY ., DR SEWELL Consulting Unavailable HOY ., DR SEWELL Primary Care Unavailable HOY ., DR SEWELL Attending Unavailable HOY ., DR SEWELL Admitting Unavailable MONCKS CORNER, DR NANDINI Stafford Consulting Unavailable HOY ., DR SEWELL Primary Care Unavailable HOY ., DR SEWELL Attending Unavailable HOY ., DR SEWELL Admitting Unavailable JETHRO GRIFFITH Consulting Unavailable NACHO, JETHRO Attending Unavailable JETHRO GRIFFITH Admitting Unavailable POLI ., DR SEWELL Primary Care Unavailable ELLIS TOLEDO Consulting Unavailable ELLIS TOLEDO Attending Unavailable PARIS, ELLIS Admitting Unavailable POLI ., DR SEWELL Primary Care Unavailable Taniya Brody Unavailable Allergies Allergy Classification Reported Allergen(s) Allergy Type Date of Onset Reaction(s) Facility (1 source) [facility]; Translations: [[facility]] Propensity to adverse reactions (disorder) 0 [facility] Repository (1 source) Kerlix Super Sponge/Saline Med Drug allergy [facility] [facility] Other Medications Current Medications Medication Drug Class(es) Dates Sig (Normalized) Sig (Original) amoxicillin 500 mg oral capsule (1 source) Penicillin-class Antibacterial take 1 capsule by mouth every twelve hours Amoxicillin 500 MG 1 capsule Orally Twice a day for 30 days Active dicyclomine hydrochloride 20 mg oral tablet (1 source) Anticholinergic Start: 11-19-2021 take 1 tablet by mouth every twelve hours 24 hr guanFACINE 3 mg extended release oral tablet (1 source) Central alpha-2 Adrenergic Agonist take 1 tablet by mouth once daily guanFACINE HCl ER 3 MG TAKE 1 TABLET BY MOUTH EVERY DAY Oral for 30 Days Active meloxicam 15 mg oral tablet (1 source) Nonsteroidal Anti-inflammatory Drug take 1 tablet by mouth every twenty-four hours Meloxicam 15 MG 1 tablet Orally Once a day Active sertraline 100 mg oral tablet (2 sources) Serotonin Reuptake Inhibitor take 1 tablet by mouth every twenty-four hours Zoloft 100 MG 1 tablet Orally Once a day Active Problems Active Problems Problem Classification Problem Date Documented Da te Episodic/Chronic Conditions associated with dizziness or vertigo (4 sources) Dizziness and giddiness; Translations: [DIZZINESS AND GIDDINESS] Onset: 3 Episodic Esophageal disorders (3 sources) Gastroesophageal reflux disease; Translations: [Gastro-esophageal reflux disease without esophagitis] Onset: 1 Resolved: 1 Chronic Genitourinary symptoms and ill-defined conditions (1 source) Proteinuria, unspecified Episodic Headache; including migraine (2 sources) Headache; Translations: [Chronic nonintractable headache, unspecified headache type] Episodic Nausea and vomiting (1 source) Nausea; Translations: [NAUSEA] Onset: 3 Episodic Other aftercare (1 source) Other alf (current) drug therapy; Translations: [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] Onset: 3 Episodic Other diseases of kidney and ureters (1 source) Disorder of kidney and ureter, unspecified Episodic Other endocrine disorders (4 sources) Other hypoglycemia; Translations: [OTHER HYPOGLYCEMIA] Onset: 3 Chronic Other gastrointestinal disorders (2 sources) Irritable bowel syndrome; Translations: [Irritable bowel syndrome without diarrhea] Chronic Other gastrointestinal disorders (2 sources) Irritable bowel syndrome without diarrhea Onset: 1 [...] (Bld) [Mass/Vol] 246.0 pg/mL Normal <=450.0 [facility] Comment on above: Performed By: #### I NSULIN #### [facility] [address] [place] [address] Dr. Saray Souza CARDIAC NELI ADMITon 023 CK [Catalytic activity/Vol] 47 U/L Normal 26-192 [facility] Comment on above: Performed By: #### I NSULIN #### [facility] [address] [place] [address] Dr. Saray Souza CK.MB [Mass/Vol] 1.02 ng/mL Normal <=3.60 [facility] Comment on above: Performed By: #### I NSULIN #### [facility] [address] [place] [address] Dr. Saray Souza HSTROP 4.5 pg/mL Normal 4.0-51.3 [facility] Comment on above: Result Comment: CUT- OFF POINTS HAVE BEEN ESTABLISHED BASED ON THE FOURTH UNIVERSAL DEFINITIONS OF MYOCARDIAL INFARCTION. THE UPPER REFERENCE LIMIT (URL) OF TROPONIN, DEFINED THE 99TH PERCENTILE OF cTnI DISTRIBUTION IN A REFERENCE POPULATION, HAS BEEN CONFIRMED THE DECISION THRESHOLD FOR NC DIAGNOSIS. Performed By: #### I NSULIN #### [facility] [address] [place] [address] Dr. Saray Souza FRANKLIN 36 ng/mL Normal 9-82 [facility] Comment on above: Performed By: #### I ANA #### [facility] [address] [address] [address] Saray Souza CBC W MANUAL DIFFon 04-17-20 23 ATYPICAL LYMPH # Normal [facility] Comment on above: Performed By: #### C EDGARDO #### [facility] [address] [place] [address] Dr. Saray Souza ATYPICAL LYMPH % Normal [facility] Comment on above: Performed By: #### C EDGARDO #### [facility] [address] [place] [address] Dr. Saray Souza BAND # 0.3 103/ul Normal 0.0-0.3 [facility] Comment on above: Performed By: #### C EDGARDO #### [facility] [address] [place] [address] Dr. Saray Souza BAND % 1 % Normal 0-5 [facility] Comment on above: Performed By: #### C EDGARDO #### [facility] [address] [place] [address] Dr. Saray Souza BASOM # 0.00 103/ul Normal 0.00-0.10 [facility] Comment on above: Performed By: #### C EDGARDO #### [facility] [address] [place] [address] Dr. Saray Souza BASOM % 0.0 % Critically low 0.2-2.0 [facility] Comment on above: Performed By: #### Sweetie REYNOSO #### [facility] [address] [place] [address] Dr. Saray Souza BLAST # Normal [facility] Comment on above: Performed By: #### C EDGARDO #### [facility] [address] [place] [address] Dr. Saray Souza BLAST % Normal [facility] Comment on above: Performed By: #### C EDGARDO #### [facility] [address] [place] [address] Dr. Saray Souza CORRECTED WBC Normal 4.0-11.0 [facility] Comment on above: Performed By: #### C EDGARDO #### [facility] [address] [place] [address] Dr. Saray Souza EOS # 0.00 103/ul Normal 0.00-0.70 [facility] Comment on above: Performed By: #### C EDGARDO #### [facility] [address] [place] [address] Dr. Saray Souza EOS% 0.0 % Critically low 0.9-7.0 [facility] Comment on above: Performed By: #### C EDGARDO #### [facility] [address] [place] [address] Dr. Saray Souza HCT 43.6 % Normal 36.0-48.0 [facility] Comment on above: Performed By: #### C EDGARDO #### [facility] [address] [place] [address] Dr. Saray Souza HGB 14.7 g/dl Normal 12.0-16.0 [facility] Comment on above: Performed By: #### Sweetie REYNOSO #### [facility] [address] [place] [address] Dr. Saray Souza LYMPHM # 1.55 103/ul Normal 1.20-3.80 [facility] Comment on above: Performed By: #### C EDGARDO #### [facility] [address] [place] [address] Dr. Saray Souza LYMPHM% 6.0 % Critically low 20.5-60.0 [facility] Comment on above: Performed By: #### Sweetie REYNOSO #### [facility] [address] [place] [address] Dr. Saray Souza MCH 30.3 pg Normal 26.7-34.0 [facility] Comment on above: Performed By: #### Sweetie REYNOSO #### [facility] [address] [place] [address] Dr. Saray Souza MCHC 33.7 g/dl Normal 29.9-35.2 [facility] Comment on above: Performed By: #### Sweetie REYNOSO #### [facility] [address] [place] [address] Dr. Saray Souza MCV 89.9 fL Normal 81.0-99.0 [facility] Comment on above: Performed By: #### C EDGARDO #### [facility] [address] [place] [address] Dr. Saray Souza METAMYELOCYTE # Normal [facility] Comment on above: Performed By: #### C EDGARDO #### [facility] [address] [place] [address] Dr. Saray Souza METAMYELOCYTE % Normal [facility] Comment on above: Performed By: #### C EDGARDO #### [facility] [address] [place] [address] Dr. Saray Souza MONOM# 2.06 103/ul Critically high 0.30-0.80 [facility] Comment on above: Performed By: #### C EDGARDO #### [facility] [address] [place] [address] Dr. Saray Souza MONOM% 8.0 % Normal 1.7-12.0 [facility] Comment on above: Performed By: #### C EDGARDO #### [facility] [address] [place] [address] Dr. Saray Souza MPV 8.8 fL Critically low 9.5-13.5 [facility] Comment on above: Performed By: #### C EDGARDO #### [facility] [address] [place] [address] Dr. Saray Souza MYELOCYTE # Normal [facility] Comment on above: Performed By: #### C EDGARDO #### [facility] [address] [place] [address] Dr. Saray Souza MYELOCYTE % Normal [facility] Comment on above: Performed By: #### C EDGARDO #### [facility] [address] [place] [address] Dr. Saray Souza NRBC Normal [facility] Comment on above: Performed By: #### C EDGARDO #### [facility] [address] [place] [address] Dr. Saray Souza PLT 397 103/ul Normal 150-450 [facility] Comment on above: Performed By: #### C BCPRESLEY #### [facility] [address] [address] [address] Saray Souza RBC 4.85 106/ul Normal 4.20-5.40 [facility] Comment on above: Performed By: #### C BCMAN #### [facility] [address] [address] [address] Saray Souza RDW 12.0 % Normal 11.0-15.0 [facility] Comment on above: Performed By: #### C BCMAN #### [facility] [address] [address] [address] Saray Souza SEG # 21.93 103/ul Critically high 1.40-6.50 [facility] Comment on above: Performed By: #### C DAVIDMAN #### [facility] [address] [address] [address] Saray Souza SEG % 85.0 % Critically high 43.0-75.0 [facility] Comment on above: Performed By: #### C DAVIDMAN #### [facility] [address] [address] [address] Saray Souza WBC 25.8 103/ul Critically high 4.0-11.0 [facility] Comment on above: Performed By: #### C DAVIDMAN #### [facility] [address] [place] [address] Dr. Saray Souza CULTURE URINEon 04-17-2023 CULTURE URINE Culture Observations : LORENZO TO FOLLOW. Isolate 1 Enterococcus faecalis 20,000 cfu/mL of Normal [facility] Comment on above: Performed By: #### C BC #### [facility] [address] [address] [address] Saray Souza ER URINE PROFILEon 3 Bilirubin Ql (U) Negative Normal NEGATIVE [facility] Comment on above: Performed By: #### C BC #### [facility] [address] [address] [address] Saray Souza Clarity (U) CLEAR Normal CLEAR [facility] Comment on above: Performed By: #### C BC #### [facility] [address] [place] [address] Dr. Saray Souza Color (U) LT. YELLOW Normal YELLOW [facility] Comment on above: Performed By: #### C BC #### [facility] [address] [place] [address] Dr. Saray HJA A micrscopic examination will be performed if indicated. Normal [facility] Comment on above: Performed By: #### C BC #### [facility] [address] [place] [address] Dr. Saray Souza Glucose Ql (U) Negative Normal NEGATIVE [facility] Comment on above: Performed By: #### C BC #### [facility] [address] [place] [address] Dr. Saray Souza Hemoglobin Ql (U) Negative Normal NEGATIVE [facility] Comment on above: Performed By: #### C BC #### [facility] [address] [place] [address] Dr. Saray Souza Ketones Ql (U) Negative Normal NEGATIVE [facility] Comment on above: Performed By: #### C BC #### [facility] [address] [place] [address] Dr. Saray Souza LEUKOCYTES SMALL Abnormal NEGATIVE [facility] Comment on above: Performed By: #### C BC #### [facility] [address] [place] [address] Dr. Saray Souza Nitrite Ql (U) Negative Normal NEGATIVE [facility] Comment on above: Performed By: #### C BC #### [facility] [address] [place] [address] Dr. Saray Souza pH (U) 6.5 [pH] Normal 5-9 [facility] Comment on above: Performed By: #### C BC #### [facility] [address] [place] [address] Dr. Saray Souza SPEC GRAVITY 1.025 Normal 1.005-<=1.025 [facility] Comment on above: Performed By: #### C BC #### [facility] [address] [place] [address] Dr. Saray Souza UA PROTEIN Negative Normal NEGATIVE/ TRACE [facility] Comment on above: Performed By: #### C BC #### [facility] [address] [address] [address] Saray Souza UR MICRO IND INDICATED Normal [facility] Comment on above: Performed By: #### C BC #### [facility] [address] [address] [address] Saray Souza Urobilinogen Qn (U) 0.2 {Janine'U}/dL Normal 0.2 - 1. 0 [facility] Comment on above: Performed By: #### C BC #### [facility] [address] [address] [address] Saray Souza URon 04-17-2023 , QUAL Negative Normal NEGATIVE [facility] Comment on above: Performed By: #### C BC #### [facility] [address] [place] [address] Dr. Saray Souza PROF 14(COMP METB)on 023 Albumin [Mass/Vol] 3.0 g/dL Critically low 3.4-5.0 [facility] Comment on above: Performed By: #### I NSULIN #### [facility] [address] [place] [address] Dr. Saray Souza Albumin/Globulin [Mass ratio] 0.9 {ratio} Normal [facility] Comment on above: Performed By: #### I NSULIN #### [facility] [address] [place] [address] Dr. Saray Souza ALP [Catalytic activity/Vol] 54 U/L Normal 46-116 [facility] Comment on above: Performed By: #### I NSULIN #### [facility] [address] [address] [address] Saray Souza ALT [Catalytic activity/Vol] 27 U/L Normal 14-59 [facility] Comment on above: Performed By: #### I NSULIN #### [facility] [address] [place] [address] Dr. Saray Souza Anion gap [Moles/Vol] 12.9 mmol/L Normal [facility] Comment on above: Performed By: #### I NSULIN #### [facility] [address] [address] [address] Saray Sozua AST [Catalytic activity/Vol] 12 U/L Critically low 15-37 [facility] Comment on above: Performed By: #### I NSULIN #### [facility] [address] [address] [address] Saray Souza Bilirubin [Mass/Vol] 0.3 mg/dL Normal 0.2-1.0 [facility] Comment on above: Performed By: #### I NSULIN #### [facility] [address] [address] [address] Saray Souza Calcium [Mass/Vol] 8.1 mg/dL Critically low 8.5-10.1 [facility] Comment on above: Performed By: #### I NSULIN #### [facility] [address] [address] [address] Saray Souza Chloride [Moles/Vol] 102 mmol/L Normal 98-107 [facility] Comment on above: Performed By: #### I NSULIN #### [facility] [address] [address] [address] Saray Souza CO2 [Moles/Vol] 26.2 mmol/L Normal 21.0-32.0 [facility] Comment on above: Performed By: #### I NSULIN #### [facility] [address] [address] [address] Saray Souza Creatinine [Mass/Vol] 0.87 mg/dL Normal 0.55-1.02 [facility] Comment on above: Performed By: #### I NSULIN #### [facility] [address] [address] [address] Saray Souza EGFR-AF PALESTINIAN >60 Normal >=60 [facility] Comment on above: Performed By: #### I NSULIN #### [facility] [address] [address] [address] Saray Souza EGFR-NON AF PALESTINIAN >60 Normal >=60 [facility] Comment on above: Performed By: #### I NSULIN #### [facility] [address] [address] [address] Saray Souza Globulin (S) [Mass/Vol] 3.2 g/dL Normal [facility] Comment on above: Performed By: #### I NSULIN #### [facility] [address] [address] [address] Saray Souza Glucose [Mass/Vol] 206 mg/dL Critically high 74-106 [facility] Comment on above: Performed By: #### I NSULIN #### [facility] [address] [address] [address] Saray Souza Potassium [Moles/Vol] 4.1 mmol/L Normal 3.5-5.1 [facility] Comment on above: Performed By: #### I NSULIN #### [facility] [address] [place] [address] Dr. Saray oSuza Protein [Mass/Vol] 6.2 g/dL Critically low 6.4-8.2 [facility] Comment on above: Performed By: #### I NSULIN #### [facility] [address] [address] [address] Saray Souza Sodium [Moles/Vol] 137 mmol/L Normal 136-[address] [facility] Comment on above: Performed By: #### I NSULIN #### [facility] [address] [place] [address] Dr. Saray Souza Urea nitrogen [Mass/Vol] 19.0 mg/dL Critically high 7.0-18.0 [facility] Comment on above: Performed By: #### I NSULIN #### [facility] [address] [address] [address] Saray Souza Urea nitrogen/Creatinine [Mass ratio] 21.8 mg/mg [facility] Comment on above: Performed By: #### I NSULIN #### [facility] [address] [address] [address] Saray Souza TSHon 04-17-2023 TSH 0.553 uIU/mL Normal 0.358-3.740 [facility] Comment on above: Performed By: #### I NSULIN #### [facility] [address] [place] [address] Dr. Saray Souza URINE MICROSCOPIC ONLYon BACTERIA TRACE Abnormal NONE SEEN [facility] Comment on above: Performed By: #### C BC #### [facility] [address] [place] [address] Dr. Saray Souza Bacteria identified Cx Nom (U) INDICATED Normal [facility] Comment on above: Performed By: #### C BC #### [facility] [address] [place] [address] Dr. Saray Souza CAST NONE SEEN Normal NONE SEEN [facility] Comment on above: Performed By: #### C BC #### [facility] [address] [place] [address] Dr. Saray Souza Crystals LM Nom (Urine sed) NONE SEEN Normal NONE SEEN [facility] Comment on above: Performed By: #### C BC #### [facility] [address] [place] [address] Dr. Saray Souza Epithelial cells LM Ql (Urine sed) RARE Normal NONE SEEN /RARE [facility] Comment on above: Performed By: #### C BC #### [facility] [address] [place] [address] Dr. Saray Souza MUCOUS NONE SEEN Normal NONE SEEN [facility] Comment on above: Performed By: #### C BC #### [facility] [address] [place] [address] Dr. Saray Souza RBC 0-2 Normal 0-2 [facility] Comment on above: Performed By: #### C BC #### [facility] [address] [place] [address] Dr. Saray Souza WBC 5-10 Abnormal NONE SEEN [facility] Comment on above: Performed By: #### C BC #### [facility] [address] [place] [address] Dr. Saray Souza XR CHEST 2 Von [...] CAROL RAMIREZ Date: 2023-04-17 10:45 Normal [facility] INSULINon 04-07-2023 Insulin 11.3 uIU/mL Normal 2.6-24.9 [facility] Comment on above: Performed By: #### I NSULIN #### [facility] [address] [place] [address] Dr. Saray Souza US KIDNEYS BLADDERon 023 [...] NANDINI MAYER Date: 2023-04-04 08:22 Normal [facility] INSULINon 04-02-2023 Insulin 37.5 uIU/mL Critically high 2.6-24.9 [facility] Comment on above: Performed By: #### I NSULIN #### [facility] [address] [place] [address] Dr. Saray Souza CBC AUTO DIFFon 04-01-2023 BASO # 0.0 103/ul Normal 0.0-0.1 [facility] Comment on above: Performed By: #### C BC #### [facility] [address] [address] [address] Saray Souza Basophils/100 WBC (Bld) 0.5 % Normal 0.2-2.0 [facility] Comment on above: Performed By: #### C BC #### [facility] [address] [address] [address] Saray Souza EO # 0.2 103/ul Normal 0.0-0.7 [facility] Comment on above: Performed By: #### C BC #### [facility] [address] [address] [address] Saray Souza Eosinophils/100 WBC (Bld) 2.3 % Normal 0.9-7.0 [facility] Comment on above: Performed By: #### C BC #### [facility] [address] [place] [address] Dr. Saray Souza Erythrocyte distribution width (RBC) [Ratio] 11.9 % Normal 11.0-15.0 [facility] [facility] Comment on above: Performed By: #### C BC #### [facility] [address] [place] [address] Dr. Saray Souza Hematocrit (Bld) [Volume fraction] 42.2 % Normal 36.0-48.0 [facility] Comment on above: Performed By: #### C BC #### [facility] [address] [place] [address] Dr. Saray Souza Hemoglobin (Bld) [Mass/Vol] 13.7 g/dL Normal 12.0-16.0 [facility] Comment on above: Performed By: #### C BC #### [facility] [address] [place] [address] Dr. Saray Souza IG # 0.02 10e3/ul Normal 0.00-0.03 [facility] Comment on above: Performed By: #### C BC #### [facility] [address] [place] [address] Dr. Saray Souza IG % 0.3 % Normal 0.0-0.5 [facility] Comment on above: Performed By: #### C BC #### [facility] [address] [place] [address] Dr. Saray Souza LYMPH # 1.6 103/ul Normal 1.2-3.8 [facility] Comment on above: Performed By: #### C BC #### [facility] [address] [place] [address] Dr. Saray Souza Lymphocytes/100 WBC (Bld) 21.5 % Normal 20.5-60.0 [facility] Comment on above: Performed By: #### C BC #### [facility] [address] [place] [address] Dr. Saray Souza MANUAL DIFF REQ NO Normal [facility] Comment on above: Performed By: #### C BC #### [facility] [address] [place] [address] Dr. Saray Souza MCH (RBC) [Entitic mass] 30.0 pg Normal 26.7-34.0 [facility] Comment on above: Performed By: #### C BC #### [facility] [address] [place] [address] Dr. Saray Souza MCHC (RBC) [Mass/Vol] 32.5 g/dL Normal 29.9-35.2 [facility] Comment on above: Performed By: #### C BC #### [facility] [address] [place] [address] Dr. Saray Souza MCV (RBC) [Entitic vol] 92.5 fL Normal 81.0-99.0 [facility] Comment on above: Performed By: #### C BC #### [facility] [address] [place] [address] Dr. Saray Souza MONO # 0.7 103/ul Normal 0.3-0.8 [facility] Comment on above: Performed By: #### C BC #### [facility] [address] [place] [address] Dr. Saray Souza Monocytes/100 WBC (Bld) 9.6 % Normal 1.7-12.0 [facility] Comment on above: Performed By: #### C BC #### [facility] [address] [place] [address] Dr. Saray Souza NEUT # 5.0 103/ul Normal 1.4-6.5 [facility] Comment on above: Performed By: #### C BC #### [facility] [address] [place] [address] Dr. Saray Souza Neutrophils/100 WBC (Bld) 65.8 % Normal 43.0-75.0 [facility] Comment on above: Performed By: #### C BC #### [facility] [address] [place] [address] Dr. Saray Souza Platelet mean volume (Bld) [Entitic vol] 8.9 fL Critically low 9.5-13.5 [facility] Comment on above: Performed By: #### C BC #### [facility] [address] [place] [address] Dr. Saray Souza PLT 293 103/ul Normal 150-450 [facility] Comment on above: Performed By: #### C BC #### [facility] [address] [place] [address] Dr. Saray Souza RBC 4.56 106/ul Normal 4.20-5.40 [facility] Comment on above: Performed By: #### C BC #### [facility] [address] [place] [address] Dr. Saray Souza WBC 7.5 103/ul Normal 4.0-11.0 [facility] Comment on above: Performed By: #### C BC #### [facility] [address] [place] [address] Dr. Saray Souza CULTURE URINEon 04-01-2023 CULTURE URINE Culture Observations : MODERATE GROWTH OF MIXED GENITAL CARMELO. NO POTENTIAL PATHOGENS SEEN. Normal [facility] Comment on above: Performed By: #### C BC #### [facility] [address] [place] [address] Dr. Saray Souza FREE THYROXINE INDEX T7on FTI 2.51 Normal 1.30-4.50 [facility] Comment on above: Performed By: #### I NSULIN #### [facility] [address] [place] [address] Dr. Saray Souza T3U 33.0 % Normal 30.0-39.0 [facility] Comment on above: Performed By: #### I CURLYULIN #### [facility] [address] [place] [address] Dr. Saray Souza T4 [Mass/Vol] 7.60 ug/dL Normal 4.80-13.90 [facility] Comment on above: Performed By: #### I CURLYULIN #### [facility] [address] [place] [address] Dr. Saray Souza IRONon 04-01-2023 Iron [Mass/Vol] 151.0 ug/dL Normal 50.0-170.0 [facility] Comment on above: Performed By: #### C EDGARDO #### [facility] [address] [place] [address] Dr. Saray Souza PROF 14(COMP METB)on 023 Albumin [Mass/Vol] 3.7 g/dL Normal 3.4-5.[address] [facility] Comment on above: Performed By: #### C EDGARDO #### [facility] [address] [place] [address] Dr. Saray Souza Albumin/Globulin [Mass ratio] 1.1 {ratio} Normal [facility] Comment on above: Performed By: #### C EDGARDO #### [facility] [address] [place] [address] Dr. Saray Souza ALP [Catalytic activity/Vol] 81 U/L Normal 46-116 [facility] Comment on above: Performed By: #### C EDGARDO #### [facility] [address] [place] [address] Dr. Saray Souza ALT [Catalytic activity/Vol] 33 U/L Normal 14-59 [facility] Comment on above: Performed By: #### C EDGARDO #### [facility] [address] [place] [address] Dr. Saray Souza Anion gap [Moles/Vol] 10.2 mmol/L Normal [facility] Comment on above: Performed By: #### C EDGARDO #### [facility] [address] [address] [address] Saray Souza AST [Catalytic activity/Vol] 22 U/L Normal 15-37 [facility] Comment on above: Performed By: #### C EDGARDO #### [facility] [address] [place] [address] Dr. Saray Souza Bilirubin [Mass/Vol] 0.3 mg/dL Normal 0.2-1.0 [facility] Comment on above: Performed By: #### C EDGARDO #### [facility] [address] [place] [address] Dr. Saray Souza Calcium [Mass/Vol] 8.6 mg/dL Normal 8.5-10.[address] [facility] Comment on above: Performed By: #### C EDGARDO #### [facility] [address] [place] [address] Dr. Saray Souza Chloride [Moles/Vol] 105 mmol/L Normal 98-107 [facility] Comment on above: Performed By: #### C EDGARDO #### [facility] [address] [place] [address] Dr. Saray Souza CO2 [Moles/Vol] 30.4 mmol/L Normal 21.0-32.0 [facility] Comment on above: Performed By: #### C EDGARDO #### [facility] [address] [place] [address] Dr. Saray Souza Creatinine [Mass/Vol] 0.72 mg/dL Normal 0.55-1.02 [facility] Comment on above: Performed By: #### C EDGARDO #### [facility] [address] [place] [address] Dr. Saray Souza EGFR-AF PALESTINIAN >60 Normal >=60 [facility] Comment on above: Performed By: #### C EDGARDO #### [facility] [address] [place] [address] Dr. Saray Souza EGFR-NON AF PALESTINIAN >60 Normal >=60 [facility] Comment on above: Performed By: #### C EDGARDO #### [facility] [address] [place] [address] Dr. Saray Souza Globulin (S) [Mass/Vol] 3.5 g/dL Normal [facility] Comment on above: Performed By: #### C EDGARDO #### [facility] [address] [place] [address] Dr. Saray Souza Glucose [Mass/Vol] 89 mg/dL Normal 74-[address] [facility] Comment on above: Performed By: #### C EDGARDO #### [facility] [address] [place] [address] Dr. Saray Souza Potassium [Moles/Vol] 3.6 mmol/L Normal 3.5-5.1 [facility] Comment on above: Performed By: #### C EDGARDO #### [facility] [address] [place] [address] Dr. Saray Souza Protein [Mass/Vol] 7.2 g/dL Normal 6.4-8.[address] [facility] Comment on above: Performed By: #### C EDGARDO #### [facility] [address] [place] [address] Dr. Saray Souza Sodium [Moles/Vol] 142 mmol/L Normal 136-[address] [facility] Comment on above: Performed By: #### C EDGARDO #### [facility] [address] [place] [address] Dr. Saray Souza Urea nitrogen [Mass/Vol] 12.0 mg/dL Normal 7.0-18.0 [facility] Comment on above: Performed By: #### C EDGARDO #### [facility] [address] [place] [address] Dr. Saray Souza Urea nitrogen/Creatinine [Mass ratio] 16.7 mg/mg Normal [facility] Comment on above: Performed By: #### C EDGARDO #### [facility] [address] [place] [address] Dr. Saray Souza TSHon 04-01-2023 TSH 1.708 uIU/mL Normal 0.358-3.740 [facility] Comment on above: Performed By: #### I NSULIN #### [facility] [address] [place] [address] Dr. Saray Souza UA RANDOM W/MICROSCOPICon BACTERIA SMALL Abnormal NONE SEEN [facility] Comment on above: Performed By: #### I NSULIN #### [facility] [address] [place] [address] Dr. Saray Souza Bilirubin Ql (U) Negative Normal NEGATIVE [facility] Comment on above: Performed By: #### I NSULIN #### [facility] [address] [place] [address] Dr. Saray Souza CAST NONE SEEN Normal NONE SEEN [facility] Comment on above: Performed By: #### I NSULIN #### [facility] [address] [place] [address] Dr. Saray Souza Clarity (U) CLEAR Normal CLEAR [facility] Comment on above: Performed By: #### I NSULIN #### [facility] [address] [place] [address] Dr. Saray Souza Color (U) YELLOW Normal YELLOW [facility] Comment on above: Performed By: #### I NSULIN #### [facility] [address] [place] [address] Dr. Saray Souza Crystals LM Nom (Urine sed) NONE SEEN Normal NONE SEEN [facility] Comment on above: Performed By: #### I NSULIN #### [facility] [address] [place] [address] Dr. Saray Souza Epithelial cells LM Ql (Urine sed) FEW Abnormal NONE SEEN /RARE [facility] Comment on above: Performed By: #### I NSULIN #### [facility] [address] [place] [address] Dr. Saray Souza Glucose Ql (U) Negative Normal NEGATIVE [facility] Comment on above: Performed By: #### I NSULIN #### [facility] [address] [place] [address] Dr. Saray Souza Hemoglobin Ql (U) Negative Normal NEGATIVE [facility] Comment on above: Performed By: #### I NSULIN #### [facility] [address] [place] [address] Dr. Saray Souza Ketones Ql (U) TRACE Abnormal NEGATIVE [facility] Comment on above: Performed By: #### I NSULIN #### [facility] [address] [place] [address] Dr. Saray Souza LEUKOCYTES SMALL Abnormal NEGATIVE [facility] Comment on above: Performed By: #### I NSULIN #### [facility] [address] [place] [address] Dr. Saray Souza MUCOUS NONE SEEN Normal NONE SEEN [facility] Comment on above: Performed By: #### I NSULIN #### [facility] [address] [place] [address] Dr. Saray Souza Nitrite Ql (U) Negative Normal NEGATIVE [facility] Comment on above: Performed By: #### I NSULIN #### [facility] [address] [place] [address] Dr. Saray Souza pH (U) 5.5 [pH] Normal 5-9 [facility] Comment on above: Performed By: #### I NSULIN #### [facility] [address] [place] [address] Dr. Saray Souza RBC 0-2 Normal 0-2 [facility] Comment on above: Performed By: #### I NSULIN #### [facility] [address] [place] [address] Dr. Saray Souza SPEC GRAVITY >=1.030 Abnormal 1.005-<=1.025 [facility] Comment on above: Performed By: #### I NSULIN #### [facility] [address] [place] [address] Dr. Saray Souza UA PROTEIN Negative Normal NEGATIVE/ TRACE [facility] Comment on above: Performed By: #### I NSULIN #### [facility] [address] [place] [address] Dr. Saray Souza Urobilinogen Qn (U) 0.2 {Janine'U}/dL Normal 0.2 - 1. 0 [facility] Comment on above: Performed By: #### I NSULIN #### [facility] [address] [place] [address] Dr. Saray Souza WBC 5-10 Abnormal NONE SEEN [facility] Comment on above: Performed By: #### I NSULIN #### [facility] [address] [place] [address] Dr. Saray Souza INSULINon 02-14-2023 Insulin 12.8 uIU/mL Normal 2.6-24.9 [facility] Comment on above: Performed By: #### C BC #### [facility] [address] [place] [address] Dr. Saray Souza CBC AUTO DIFFon 02-13-2023 BASO # 0.0 103/ul Normal 0.0-0.1 [facility] Comment on above: Performed By: #### C BC #### [facility] [address] [place] [address] Dr. Saray Souza Basophils/100 WBC (Bld) 0.4 % Normal 0.2-2.0 [facility] Comment on above: Performed By: #### C BC #### [facility] [address] [place] [address] Dr. Saray Souza EO # 0.1 103/ul Normal 0.0-0.7 [facility] Comment on above: Performed By: #### C BC #### [facility] [address] [place] [address] Dr. Saray Souza Eosinophils/100 WBC (Bld) 1.6 % Normal 0.9-7.0 [facility] Comment on above: Performed By: #### C BC #### [facility] [address] [place] [address] Dr. Saray Souza Erythrocyte distribution width (RBC) [Ratio] 11.9 % Normal 11.0-15.0 [facility] Comment on above: Performed By: #### C BC #### [facility] [address] [place] [address] Dr. Saray Souza Hematocrit (Bld) [Volume fraction] 41.9 % Normal 36.0-48.0 [facility] Comment on above: Performed By: #### C BC #### [facility] [address] [place] [address] Dr. Saray Souza Hemoglobin (Bld) [Mass/Vol] 13.7 g/dL Normal 12.0-16.0 [facility] Comment on above: Performed By: #### C BC #### [facility] [address] [place] [address] Dr. Saray Souza IG # 0.02 10e3/ul Normal 0.00-0.03 [facility] Comment on above: Performed By: #### C BC #### [facility] [address] [place] [address] Dr. Saray Souza IG % 0.3 % Normal 0.0-0.5 [facility] Comment on above: Performed By: #### C BC #### [facility] [address] [place] [address] Dr. Saray Souza LYMPH # 1.4 103/ul Normal 1.2-3.8 [facility] Comment on above: Performed By: #### C BC #### [facility] [address] [place] [address] Dr. Saray Souza Lymphocytes/100 WBC (Bld) 18.6 % Critically low 20.5-60.0 [facility] Comment on above: Performed By: #### C BC #### [facility] [address] [place] [address] Dr. Saray Souza MANUAL DIFF REQ NO Normal [facility] Comment on above: Performed By: #### C BC #### [facility] [address] [place] [address] Dr. Saray Souza MCH (RBC) [Entitic mass] 29.9 pg Normal 26.7-34.0 [facility] Comment on above: Performed By: #### C BC #### [facility] [address] [place] [address] Dr. Saray Souza MCHC (RBC) [Mass/Vol] 32.7 g/dL Normal 29.9-35.2 [facility] Comment on above: Performed By: #### C BC #### [facility] [address] [place] [address] Dr. Saray Souza MCV (RBC) [Entitic vol] 91.5 fL Normal 81.0-99.0 [facility] Comment on above: Performed By: #### C BC #### [facility] [address] [address] [address] Saray Souza MONO # 0.6 103/ul Normal 0.3-0.8 [facility] Comment on above: Performed By: #### C BC #### [facility] [address] [address] [address] Saray Souza Monocytes/100 WBC (Bld) 8.3 % Normal 1.7-12.0 [facility] Comment on above: Performed By: #### C BC #### [facility] [address] [address] [address] Saray Souza NEUT # 5.5 103/ul Normal 1.4-6.5 [facility] Comment on above: Performed By: #### C BC #### [facility] [address] [address] [address] Saray Souza Neutrophils/100 WBC (Bld) 70.8 % Normal 43.0-75.0 [facility] Comment on above: Performed By: #### C BC #### [facility] [address] [address] [address] Saray Souza Platelet mean volume (Bld) [Entitic vol] 9.0 fL Critically low 9.5-13.5 [facility] Comment on above: Performed By: #### C BC #### [facility] [address] [address] [address] Saray Souza PLT 271 103/ul Normal 150-450 [facility] Comment on above: Performed By: #### C BC #### [facility] [address] [address] [address] Saray Souza RBC 4.58 106/ul Normal 4.20-5.40 [facility] Comment on above: Performed By: #### C BC #### [facility] [address] [address] [address] Saray Souza WBC 7.7 103/ul Normal 4.0-11.0 [facility] Comment on above: Performed By: #### C BC #### [facility] [address] [place] [address] Dr. Saray Souza FREE THYROXINE INDEX T7on FTI 2.56 Normal 1.30-4.50 [facility] Comment on above: Performed By: #### I NSULIN #### [facility] [address] [place] [address] Dr. Saray Souza T3U 36.0 % Normal 30.0-39.0 [facility] Comment on above: Performed By: #### I NSULIN #### [facility] [address] [place] [address] Dr. Saray Souza T4 [Mass/Vol] 7.10 ug/dL Normal 4.80-13.90 [facility] Comment on above: Performed By: #### I NSULIN #### [facility] [address] [place] [address] Dr. Saray Souza IRONon 02-13-2023 Iron [Mass/Vol] 130.0 ug/dL Normal 50.0-170.0 [facility] Comment on above: Performed By: #### C BCPRESLEY #### [facility] [address] [place] [address] Dr. Saray Souza PROF 14(COMP METB)on 023 Albumin [Mass/Vol] 3.8 g/dL Normal 3.4-5.[address] [facility] Comment on above: Performed By: #### I NSULIN #### [facility] [address] [place] [address] Dr. Saray Souza Albumin/Globulin [Mass ratio] 1.2 {ratio} Normal [facility] Comment on above: Performed By: #### I NSULIN #### [facility] [address] [place] [address] Dr. Saray Souza ALP [Catalytic activity/Vol] 82 U/L Normal 46-116 [facility] Comment on above: Performed By: #### I NSULIN #### [facility] [address] [place] [address] Dr. Saray Souza ALT [Catalytic activity/Vol] 25 U/L Normal 14-59 [facility] Comment on above: Performed By: #### I NSULIN #### [facility] [address] [address] [address] Saray Souza Anion gap [Moles/Vol] 12.7 mmol/L Normal [facility] Comment on above: Performed By: #### I NSULIN #### [facility] [address] [address] [address] Saray Souza AST [Catalytic activity/Vol] 19 U/L Normal 15-37 [facility] Comment on above: Performed By: #### I NSULIN #### [facility] [address] [address] [address] Saray Souza Bilirubin [Mass/Vol] 0.3 mg/dL Normal 0.2-1.0 [facility] Comment on above: Performed By: #### I NSULIN #### [facility] [address] [place] [address] Dr. Saray Souza Calcium [Mass/Vol] 8.8 mg/dL Normal 8.5-10.[address] [facility] Comment on above: Performed By: #### I NSULIN #### [facility] [address] [address] [address] Saray Souza Chloride [Moles/Vol] 101 mmol/L Normal 98-107 [facility] Comment on above: Performed By: #### I NSULIN #### [facility] [address] [place] [address] Dr. Saray Souza CO2 [Moles/Vol] 27.3 mmol/L Normal 21.0-32.0 [facility] Comment on above: Performed By: #### I NSULIN #### [facility] [address] [place] [address] Dr. Saray Souza Creatinine [Mass/Vol] 0.69 mg/dL Normal 0.55-1.02 [facility] Comment on above: Performed By: #### I NSULIN #### [facility] [address] [address] [address] Saray Souza EGFR-AF PALESTINIAN >60 Normal >=60 [facility] Comment on above: Performed By: #### I NSULIN #### [facility] [address] [address] [address] Saray Souza EGFR-NON AF PALESTINIAN >60 Normal >=60 [facility] Comment on above: Performed By: #### I NSULIN #### [facility] [address] [address] [address] Saray Souza Globulin (S) [Mass/Vol] 3.3 g/dL Normal [facility] Comment on above: Performed By: #### I NSULIN #### [facility] [address] [address] [address] Saray Souza Glucose [Mass/Vol] 83 mg/dL Normal 74-106 [facility] [place] Comment on above: Performed By: #### I NSULIN #### [facility] [address] [place] [address] Dr. Saray Souza Potassium [Moles/Vol] 4.0 mmol/L Normal 3.5-5.1 [facility] Comment on above: Performed By: #### I NSULIN #### [facility] [address] [place] [address] Dr. Saray Souza Protein [Mass/Vol] 7.1 g/dL Normal 6.4-8.2 [facility] [place] Comment on above: Performed By: #### I NSULIN #### [facility] [address] [place] [address] Dr. Saray Souza Sodium [Moles/Vol] 137 mmol/L Normal 136-145 [facility] [place] Comment on above: Performed By: #### I NSULIN #### [facility] [address] [place] [address] Dr. Saray Souza Urea nitrogen [Mass/Vol] 10.0 mg/dL Normal 7.0-18.0 [facility] Comment on above: Performed By: #### I NSULIN #### [facility] [address] [place] [address] Dr. Saray Souza Urea nitrogen/Creatinine [Mass ratio] 14.5 mg/mg Normal [facility] Comment on above: Performed By: #### I NSULIN #### [facility] [address] [place] [address] Dr. Saray Souza TSHon 02-13-2023 TSH 2.745 uIU/mL Normal 0.358-3.740 [facility] Comment on above: Performed By: #### I NSULIN #### [facility] [address] [place] [address] Dr. Saray Souza AMYLASEon 02-04-2023 Amylase [Catalytic activity/Vol] 45 U/L Normal 25-115 [facility] Comment on above: Performed By: #### T SH, CMP, HSTROPN, LIPA, LINDA #### [facility] [address] [place] [address] Dr. Saray Souza CBC AUTO DIFFon 02-04-2023 BASO # 0.0 103/ul Normal 0.0-0.1 [facility] Comment on above: Performed By: #### C BC #### [facility] [address] [place] [address] Dr. Saray Souza Basophils/100 WBC (Bld) 0.4 % Normal 0.2-2.0 [facility] Comment on above: Performed By: #### C BC #### [facility] [address] [place] [address] Dr. Saray Souza EO # 0.1 103/ul Normal 0.0-0.7 [facility] Comment on above: Performed By: #### C BC #### [facility] [address] [place] [address] Dr. Saray Souza Eosinophils/100 WBC (Bld) 1.7 % Normal 0.9-7.0 [facility] Comment on above: Performed By: #### C BC #### [facility] [address] [place] [address] Dr. Saray Souza Erythrocyte distribution width (RBC) [Ratio] 12.0 % Normal 11.0-15.0 [facility] Comment on above: Performed By: #### C BC #### [facility] [address] [place] [address] Dr. Saray Souza Hematocrit (Bld) [Volume fraction] 42.3 % Normal 36.0-48.0 [facility] Comment on above: Performed By: #### C BC #### [facility] [address] [place] [address] Dr. Saray Souza Hemoglobin (Bld) [Mass/Vol] 13.9 g/dL Normal 12.0-16.0 [facility] Comment on above: Performed By: #### C BC #### [facility] [address] [place] [address] Dr. Saray Souza IG # 0.03 10e3/ul Normal 0.00-0.03 [facility] Comment on above: Performed By: #### C BC #### [facility] [address] [place] [address] Dr. Saray Souza IG % 0.4 % Normal 0.0-0.5 [facility] Comment on above: Performed By: #### C BC #### [facility] [address] [place] [address] Dr. Saray Souza LYMPH # 1.5 103/ul Normal 1.2-3.8 [facility] Comment on above: Performed By: #### C BC #### [facility] [address] [place] [address] Dr. Saray Souza Lymphocytes/100 WBC (Bld) 20.4 % Critically low 20.5-60.0 [facility] Comment on above: Performed By: #### C BC #### [facility] [address] [place] [address] Dr. Saray Souza MANUAL DIFF REQ NO Normal [facility] Comment on above: Performed By: #### C BC #### [facility] [address] [place] [address] Dr. Saray Souza MCH (RBC) [Entitic mass] 30.0 pg Normal 26.7-34.0 [facility] Comment on above: Performed By: #### C BC #### [facility] [address] [place] [address] Dr. Saray Souza MCHC (RBC) [Mass/Vol] 32.9 g/dL Normal 29.9-35.2 [facility] Comment on above: Performed By: #### C BC #### [facility] [address] [address] [address] Saray Souza MCV (RBC) [Entitic vol] 91.2 fL Normal 81.0-99.0 [facility] Comment on above: Performed By: #### C BC #### [facility] [address] [address] [address] Saray Souza MONO # 0.6 103/ul Normal 0.3-0.8 [facility] Comment on above: Performed By: #### C BC #### [facility] [address] [place] [address] Dr. Saray Souza Monocytes/100 WBC (Bld) 7.7 % Normal 1.7-12.0 [facility] Comment on above: Performed By: #### C BC #### [facility] [address] [place] [address] Dr. Saray Souza NEUT # 5.2 103/ul Normal 1.4-6.5 [facility] Comment on above: Performed By: #### C BC #### [facility] [address] [place] [address] Dr. Saray Souza Neutrophils/100 WBC (Bld) 69.4 % Normal 43.0-75.0 [facility] Comment on above: Performed By: #### C BC #### [facility] [address] [place] [address] Dr. Saray Souza Platelet mean volume (Bld) [Entitic vol] 9.0 fL Critically low 9.5-13.5 [facility] Comment on above: Performed By: #### C BC #### [facility] [address] [place] [address] Dr. Saray Souza PLT 292 103/ul Normal 150-450 [facility] Comment on above: Performed By: #### C BC #### [facility] [address] [place] [address] Dr. Saray Souza RBC 4.64 106/ul Normal 4.20-5.40 [facility] Comment on above: Performed By: #### C BC #### [facility] [address] [place] [address] Dr. Saray Souza WBC 7.5 103/ul Normal 4.0-11.0 [facility] Comment on above: Performed By: #### C BC #### [facility] [address] [place] [address] Dr. Saray Souza CULTURE URINEon 02-04-2023 CULTURE URINE Culture Observations : LIGHT GROWTH OF MIXED GENITAL CARMELO. NO POTENTIAL PATHOGENS SEEN. Normal [facility] Comment on above: Performed By: #### C BC #### [facility] [address] [place] [address] Dr. Saray Souza ER URINE PROFILEon 3 Bilirubin Ql (U) Negative Normal NEGATIVE [facility] Comment on above: Performed By: #### C BC #### [facility] [address] [place] [address] Dr. Saray Souza Clarity (U) CLEAR Normal CLEAR [facility] Comment on above: Performed By: #### C BC #### [facility] [address] [place] [address] Dr. Saray Souza Color (U) LT. YELLOW Normal YELLOW [facility] Comment on above: Performed By: #### C BC #### [facility] [address] [place] [address] Dr. Saray JHA A micrscopic examination will be performed if indicated. Normal [facility] Comment on above: Performed By: #### C BC #### [facility] [address] [place] [address] Dr. Saray Souza Glucose Ql (U) Negative Normal NEGATIVE [facility] Comment on above: Performed By: #### C BC #### [facility] [address] [place] [address] Dr. Saray Souza Hemoglobin Ql (U) Negative Normal NEGATIVE [facility] Comment on above: Performed By: #### C BC #### [facility] [address] [place] [address] Dr. Saray Souza Ketones Ql (U) Negative Normal NEGATIVE [facility] Comment on above: Performed By: #### C BC #### [facility] [address] [place] [address] Dr. Saray Souza LEUKOCYTES MODERATE Abnormal NEGATIVE [facility] Comment on above: Performed By: #### C BC #### [facility] [address] [place] [address] Dr. Saray Souza Nitrite Ql (U) Negative Normal NEGATIVE [facility] Comment on above: Performed By: #### C BC #### [facility] [address] [place] [address] Dr. Saray Souza pH (U) 5.5 [pH] Normal 5-9 [facility] Comment on above: Performed By: #### C BC #### [facility] [address] [place] [address] Dr. Saray Souza SPEC GRAVITY >=1.030 Abnormal 1.005-<=1.025 [facility] Comment on above: Performed By: #### C BC #### [facility] [address] [place] [address] Dr. Saray Souza UA PROTEIN Negative Normal NEGATIVE/ TRACE [facility] Comment on above: Performed By: #### C BC #### [facility] [address] [place] [address] Dr. Saray Souza UR MICRO IND INDICATED Normal [facility] Comment on above: Performed By: #### C BC #### [facility] [address] [place] [address] Dr. Saray Souza Urobilinogen Qn (U) 0.2 {Janine'U}/dL Normal 0.2 - 1. 0 [facility] Comment on above: Performed By: #### C BC #### [facility] [address] [place] [address] Dr. Saray Souza LIPASEon 02-04-2023 Lipase [Catalytic activity/Vol] 97.0 U/L Normal 73.0-393.0 [facility] Comment on above: Performed By: #### T SH, CMP, HSTROPN, LIPA, LINDA #### [facility] [address] [place] [address] Dr. Saray Souza URon 02-04-2023 , QUAL Negative Normal NEGATIVE [facility] Comment on above: Performed By: #### C BC #### [facility] [address] [place] [address] Dr. Saray Souza PROF 14(COMP METB)on 023 Albumin [Mass/Vol] 3.5 g/dL Normal 3.4-5.[address] [facility] Comment on above: Performed By: #### T SH, CMP, HSTROPN, LIPA, LINDA #### [facility] [address] [place] [address] Dr. Saray Souza Albumin/Globulin [Mass ratio] 1.2 {ratio} Normal [facility] Comment on above: Performed By: #### T SH, CMP, HSTROPN, LIPA, LINDA #### [facility] [address] [place] [address] Dr. Saray Souza ALP [Catalytic activity/Vol] 78 U/L Normal 46-116 [facility] Comment on above: Performed By: #### T SH, CMP, HSTROPN, LIPA, LINDA #### [facility] [address] [place] [address] Dr. Saray Souza ALT [Catalytic activity/Vol] 24 U/L Normal 14-59 [facility] Comment on above: Performed By: #### T SH, CMP, HSTROPN, LIPA, LINDA #### [facility] [address] [place] [address] Dr. Saray Souza Anion gap [Moles/Vol] 7.9 mmol/L Normal [facility] Comment on above: Performed By: #### T SH, CMP, HSTROPN, LIPA, LIDNA #### [facility] [address] [place] [address] Dr. Saray Souza AST [Catalytic activity/Vol] 16 U/L Normal 15-37 [facility] Comment on above: Performed By: #### T SH, CMP, HSTROPN, LIPA, LINDA #### [facility] [address] [place] [address] Dr. Saray Souza Bilirubin [Mass/Vol] 0.3 mg/dL Normal 0.2-1.0 [facility] Comment on above: Performed By: #### T SH, CMP, HSTROPN, LIPA, LINDA #### [facility] [address] [place] [address] Dr. Saray Souza Calcium [Mass/Vol] 8.6 mg/dL Normal 8.5-10.[address] [facility] Comment on above: Performed By: #### T SH, CMP, HSTROPN, LIPA, LINDA #### [facility] [address] [place] [address] Dr. Saray Souza Chloride [Moles/Vol] 105 mmol/L Normal 98-107 [facility] Comment on above: Performed By: #### T SH, CMP, HSTROPN, LIPA, LINDA #### [facility] [address] [place] [address] Dr. Saray Souza CO2 [Moles/Vol] 28.9 mmol/L Normal 21.0-32.0 [facility] Comment on above: Performed By: #### T SH, CMP, HSTROPN, LIPA, LINDA #### [facility] [address] [place] [address] Dr. Saray Souza Creatinine [Mass/Vol] 0.67 mg/dL Normal 0.55-1.02 [facility] Comment on above: Performed By: #### T SH, CMP, HSTROPN, LIPA, LINDA #### [facility] [address] [place] [address] Dr. Saray Souza EGFR-AF PALESTINIAN >60 Normal >=60 [facility] Comment on above: Performed By: #### T SH, CMP, HSTROPN, LIPA, LINDA #### [facility] [address] [place] [address] Dr. Saray Souza EGFR-NON AF PALESTINIAN >60 Normal >=60 [facility] Comment on above: Performed By: #### T SH, CMP, HSTROPN, LIPA, LINDA #### [facility] [address] [place] [address] Dr. Saray Souza Globulin (S) [Mass/Vol] 3.0 g/dL Normal [facility] Comment on above: Performed By: #### T SH, CMP, HSTROPN, LIPA, LINDA #### [facility] [address] [place] [address] Dr. Saray Souza Glucose [Mass/Vol] 97 mg/dL Normal 74-106 [facility] [place] Comment on above: Performed By: #### T SH, CMP, HSTROPN, LIPA, LINDA #### [facility] [address] [place] [address] Dr. Saray Souza Potassium [Moles/Vol] 3.8 mmol/L Normal 3.5-5.1 [facility] Comment on above: Performed By: #### T SH, CMP, HSTROPN, LIPA, LINDA #### [facility] [address] [place] [address] Dr. Saray Souza Protein [Mass/Vol] 6.5 g/dL Normal 6.4-8.2 [facility] [place] Comment on above: Performed By: #### T SH, CMP, HSTROPN, LIPA, LINDA #### [facility] [address] [place] [address] Dr. Saray Souza Sodium [Moles/Vol] 138 mmol/L Normal 136-145 [facility] [place] Comment on above: Performed By: #### T SH, CMP, HSTROPN, LIPA, LINDA #### [facility] [address] [place] [address] Dr. Saray Souza Urea nitrogen [Mass/Vol] 13.0 mg/dL Normal 7.0-18.0 [facility] Comment on above: Performed By: #### T SH, CMP, HSTROPN, LIPA, LINDA #### [facility] [address] [place] [address] Dr. Saray Souza Urea nitrogen/Creatinine [Mass ratio] 19.4 mg/mg Normal [facility] Comment on above: Performed By: #### T SH, CMP, HSTROPN, LIPA, LINDA #### [facility] [address] [place] [address] Dr. Saray Souza TROPONIN, HIGH SENSITIVITYon 02-04-2023 HSTROP 4.0 pg/mL Normal 4.0-51.3 [facility] Comment on above: Result Comment: CUT- OFF POINTS HAVE BEEN ESTABLISHED BASED ON THE FOURTH UNIVERSAL DEFINITIONS OF MYOCARDIAL INFARCTION. THE UPPER REFERENCE LIMIT (URL) OF TROPONIN, DEFINED THE 99TH PERCENTILE OF cTnI DISTRIBUTION IN A REFERENCE POPULATION, HAS BEEN CONFIRMED THE DECISION THRESHOLD FOR NC DIAGNOSIS. Performed By: #### T SH, CMP, HSTROPN, LIPA, LINDA #### [facility] [address] [place] [address] Dr. Saray Souza TSHon 02-04-2023 TSH 2.478 uIU/mL Normal 0.358-3.740 [facility] Comment on above: Performed By: #### T SH, CMP, HSTROPN, LIPA, LINDA #### [facility] [address] [place] [address] Dr. Saray Souza URINE MICROSCOPIC ONLYon BACTERIA MODERATE Abnormal NONE SEEN [facility] Comment on above: Performed By: #### C BC #### [facility] [address] [place] [address] Dr. Saray Souza Bacteria identified Cx Nom (U) INDICATED Normal [facility] Comment on above: Performed By: #### C BC #### [facility] [address] [place] [address] Dr. Saray Souza CAST NONE SEEN Normal NONE SEEN [facility] Comment on above: Performed By: #### C BC #### [facility] [address] [place] [address] Dr. Saray Souza Crystals LM Nom (Urine sed) NONE SEEN Normal NONE SEEN [facility] Comment on above: Performed By: #### C BC #### [facility] [address] [place] [address] Dr. Saray Souza Epithelial cells LM Ql (Urine sed) MODERATE Abnormal NONE SEEN /RARE [facility] Comment on above: Performed By: #### C BC #### [facility] [address] [place] [address] Dr. Saray Souza MUCOUS NONE SEEN Normal NONE SEEN [facility] Comment on above: Performed By: #### C BC #### [facility] [address] [place] [address] Dr. Saray Souza RBC 5-10 Abnormal 0-2 [facility] Comment on above: Performed By: #### C BC #### [facility] [address] [place] [address] Dr. Saray Souza WBC 10-20 Abnormal NONE SEEN [facility] Comment on above: Performed By: #### C BC #### [facility] [address] [place] [address] Dr. Saray Souza Covid-19 PCR ([facility])on 09-24 SARS-CoV-2 (COVID-19) RNA DAYDAY+probe Ql (Unsp spec) Not detected Normal NOT DETECTED [facility] Comment on above: Result Comment: When diagnostic [...] for this test is supported by the Site Acquisition Manager of Health and Human Service's declaration that [...] used). Performed By: #### C BC #### [facility] [address] [place] [address] Dr. Saray Souza INFLUENZA A AND B AGon 10-20 INFLUANEGH SEE BELOW Normal [facility] Comment on above: Result Comment: Nega tive for Flu A protein angiten. Infection due to Flu A cannot be ruled out. Flu A angiten in the sample may be below the detection limit of the test. Performed By: #### C BC #### [facility] [address] [place] [address] Dr. Saray Souza INFLUBNEGH SEE BELOW Normal [facility] Comment on above: Result Comment: Nega tive for Flu B protein antigen. Infection due to Flu B cannot be ruled out. Flu B antigen in the sample may be below the detection limit of the test. Performed By: #### C BC #### [facility] [address] [place] [address] Dr. Saray Souza INFLUENZA A AG Negative Normal NEGATIVE SEE COMMENT [facility] Comment on above: Performed By: #### C BC #### [facility] [address] [place] [address] Dr. Saray Souza INFLUENZA B AG Negative Normal NEGATIVE SEE COMMENT [facility] Comment on above: Performed By: #### C BC #### [facility] [address] [place] [address] Dr. Saray Souza INTERNAL CONTROLS Within Normal Limits Normal Wi thin Normal Limits [facility] Comment on above: Performed By: #### C BC #### [facility] [address] [place] [address] Dr. Saray Souza STREPT SCREENon 10-20-2022 STREP SCREEN A Positive Abnormal NEGATIVE [facility] Comment on above: Performed By: #### C BC #### [facility] [address] [place] [address] Dr. Saray Souza XR SHOULDER RT INJon [...] ADRIANA MENDEZ Date: 2022-07-18 17:05 Normal [facility] MRI SHOULDER RT WO CONon MRI [...] by: ADRIANA MENDEZ Date: 2022-07-10 10:10 Normal [facility] XR ARTHRO SHLD RTon 07-10-20 22 XR ARTHRO SHLD RT EXAMINATION: XR ARTH [...] MRI arthrogram report. Electronically authenticated by: ADRIANA MENDZE Date: 2022-07-10 10:01 Normal [facility] No Panel Informationon 03-18 Right Eye Reliability was good. Findings include normal observations. Left Eye Reliability was good. Findings include normal observations. Notes I personally reviewed the visual zaldivar performed by this patient on 03/18/22. The visual zaldivar are normal OU with good fixation. Francisco Ayers MD [facility] Radiology Study observation (narrative) 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 Francisco Ayers MD Normal [facility] Ambulatory Clinical Summaryo n 10-09-2021 Ambulatory Clinical Summary {[id number] Normal [facility] General Surgery Office/Clini c Noteon 10-09-2021 [...] [place] [facility] Only if needed [address] [place] [address]- Additional Instructions: Problem List/Past Medical History Ongoing [...] SARS-CoV-2 (COVID-19) mRNA-1273 vaccine 03/18/2021 Recorded Normal [facility] Comment on above: Result Comment: Elec tronically Signed By: RUTH CLARK, Yonis Cardenas\Date and Time Signed: 10/09/21 15:14 EST Pathology Noteon 10-04-2021 Pathology Note [id number]. 00CD:127 [facility] Operative Reporton Operative Report [id number] 0CD:127 Normal [facility] ECG 12-Leadon 10-02-2021 ECG 12-Lead [id number] 0CD:127 [facility] Lab Reportson 10-02-2021 Lab Reports [id number] 0CD:127 [facility] Consent for Procedure/Surger yon 10-01-2021 Consent for Procedure/Surgery [id number] 0CD:127 [facility] Ambulatory Clinical Summaryo n 09-30-2021 Ambulatory Clinical Summary {[id number]}CD:[id number] [facility] General Surgery Office/Clini c Noteon [...] to bid with some improvement; seen in [facility] 2 days ago, abd ct [...] Unasyn 3 gms [facility] No qualifying data available Problem List/Past [...] SARS-CoV-2 (COVID-19) mRNA-1273 vaccine 03/18/2021 Recorded Normal [facility] Comment on above: Result Comment: Elec tronically Signed By: RUTH CLARK, Yonis Mckenzie\gaby\Date and Time Signed: 09/30/21 21:20 EST Outside Radiologyon 09-30-20 21 Outside Radiology [id number] 0CD:127 Normal [facility] September 25, 2021 DANIEL CELAYA, [address], [place] [address] Re: ROSALIE FREEMAN Date of : 1995 Thank you for your referral of Rosalie Freeman who was seen on consultation on 09/20/2021 for 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 I have enclosed my consultation note for your review. I will be happy to follow Rosalie should her symptoms persist. Sincerely, Yonis Carney MD General Surgery Normal [facility] Ambulatory Clinical Summaryo n 09-20-2021 Ambulatory Clinical Summary {[id number] Normal [facility] ED Note-Physicianon 09-20-20 ED Note-Physician [id number] 0CD:127 Normal [facility] Physician Referralon 021 Physician Referral [id number] 00 [id number] 0CD:127 Normal [facility] RAD - Ultrasound Reporton RAD - Ultrasound Report [id number]:127 Normal [facility] Cytologyon 12-20-2018 Cytology (NOTE) [id number] [facility] [address], [place] [address] GYNECOLOGIC CYTOLOGY REPORT Patient Name: ROSALIE FREEMAN V. 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 - Endocervical/transform ation zone component present. - Scant cellularity; predominantly blood. Descriptive Diagnosis: Negative for intraepithelial lesion or malignancy. Audio Visual Specialist: KANCHAN Mendoza(ASCP) Electronically Signed Out donna/01/03/[address] [facility] Comment on above: Performed By: #### P PPVP #### [employer] [address] [place] [id number] Cotton Presser: Vega Wilkerson MD Vital Signs Date Time Vital Sign Value Performing Clinician Facility 12-02-2023 08:40-0500 Body height 180.34 cm Taniya Mary Grace Other [facility] 12-02-2023 08:40-0500 Body mass index (BMI) [Ratio] 45.1 kg/m2 Taniya Mary Grace Other [facility] 12-02-2023 08:40-0500 Body temperature 97.5 [degF] Taniya Mary Grace Other [facility] Other 12-02-2023 08:40-0500 Body weight 146.69 kg Taniya Mary Grace Other [facility] Other 12-02-2023 08:40-0500 Diastolic blood pressure 83 mm[Hg] Taniya Mary Grace Other [facility] Other 12-02-2023 08:40-0500 Respiratory rate 18 /min Taniya Mary Grace Other [facility] Other 12-02-2023 08:40-0500 SaO2% (BldA) [Mass fraction] 98 % Taniya Mary Grace Other [facility] Other 12-02-2023 08:40-0500 Systolic blood pressure 136 mm[Hg] Taniya Mary Grace Other [facility] Other 11-19-2021 15:30-0500 Body height 180.34 cm Nandini Pantoja Other [facility] Other 11-19-2021 15:30-0500 Body mass index (BMI) [Ratio] 41.56 kg/m2 Nandini Pantoja Other [facility] Other 11-19-2021 15:30-0500 Body weight 135.17 kg Nandini Pantoja Other [facility] Other 11-19-2021 15:30-0500 Diastolic blood pressure 76 mm[Hg] Nandini Pantoja Other [facility] Other 11-19-2021 15:30-0500 Systolic blood pressure 128 mm[Hg] Nandini Pantoja Other [facility] Other Encounters Encounter Date Encounter Type Care Provider Facility Start: 12-02-2023 End: 12-02-2023 ambulatory Taniya Mary Grace Other [facility] Other Start: 12-02-2023 Office outpatient ne w 30 minutes Taniya Mary Grace [facility] Start: 04-17-2023 End: 04-17-2023 ambulatory SALMA DIAB . Facility:[facility] Start: 04-06-2023 End: 04-07-[address] MELODIE HARGROVE . Facility:[facility] Start: 04-04-2023 Encounter for genera l adult medical examination without abnormal findings DR MELODIE HARGROVE . [facility] Start: 04-03-2023 End: 04-04-[address] MELODIE [...] 11-19-2021 End: 11-19-2021 ambulatory Nandini Pantoja Other [facility] Start: 11-19-2021 Office outpatient clotilde w 30 minutes Nandini Pantoja [facility] Start: 12-20-2018 End: 12-21-2018 Patient encounter procedure [facility] Procedures Date Procedure Procedure Detail Performing Clinician [...] ure, preparation of smear, genital source ANDRESSA AVA Plan of Treatment Date Care Activity Detail Author Start: 2043 Shingles (RZV) Vacci ne (1 of 2) Shingles (RZV) Vaccine (1 of 2) [facility] Start: 2014 Screening for malign ant neoplasm of cervix Pap Smear [facility] Start: 2011 Hepatitis C screening Hepatitis C An tibody [facility] Start: 2011 Tetanus + diphtheria + acellular pertussis vaccine (product) Tdap Booster [facility] Start: 2008 HIV screening HIV Test [facility] Start: 1998 COVID-19 Vaccine (1) COVID-19 Vaccin e (1) [facility] Immunizations Immunization Date Immunization Notes Care Provider Marino lopze 03-21-2014 influenza virus vacc ine, unspecified formulation Estella Guerrero MD Work Phone: [facility] Payers Date Payer Category Payer Unknown [facility] [employer] [id number] 2017-Present [id number] 1993 Unknown [id number] 1995 Unknown [id number] 2.840.1.655785.3.579.2.732 1993 Unknown [id number] 2..840.1.554710.3.579.2.593 1993 Unknown [id number] 2.16.840.1.370605.3.579.2.593 1993 Unknown [id number] 2.16.840.1.224178.3.579.2.593 1993 Unknown [id number] 2.16.840.1.974118.3.579.2.593 1993 Unknown [id number] 2.16.840.1.094219.3.579.2.593 1993 Unknown [id number] 2.16.840.1.111438.3.579.2.593 1993 Unknown [id number] 2.16.840.1.186691.3.579.2.593 1993 Unknown [id number] 2.16.840.1.967965.3.579.2.593 1993 Unknown [id number] 2.16.840.1.258919.3.579.2.593 1993 Unknown [id number] 2.16.840.1.355931.3.579.2.593 1993 Unknown [id number] 2.16.840.1.775963.3.579.2.593 1993 Unknown [id number] 2.16.840.1.591996.3.579.2.593 1959 Unknown [id number] Social History Date Type Detail Facility Tobacco smoking status DEIS Tobacco smoking consumption unknown [facility] Start: 1995 [facility] Sex Assigned At Bir [facility] Other Clinical Notes 09-23-2021 to 12-02-2023 Note Date & Type Note Facility 12-02-2023 Evaluation note Encounter Date Diagnosis Assessment Notes Nov, Proteinuria (ICD-10 - R80.9) It was a pleasure to see Mrs. Freeman in our office for an evaluation and management of the proteinuria. She has a protein in the urine on random urine collection without creatinine ratio which can be misleading. 24-hour urine collection for protein is within the normal limit for that lab. Her UA done in April 2023 also showed no evidence of proteinuria. I will repeat the urine protein creatinine ratio and UA. I will also ordered the workup for paraproteinemia hepatitis and ANCA. I explained to her that depending on the test result will decide about the kidney biopsy. I have advised her to avoid NSAIDs or any other jstt-xjl-bobqbna medication or high-protein supplements Nov, Renal lesion (ICD-10 - N28.9) She had a renal lesion of indeterminate nature on the renal ultrasound. She is ordered to have a CAT scan with contrast by the PCP. Will follow the report once done. Nov, IBS (irritable bowel syndrome) (ICD-10 - K58.9) Continue to follow with PCP for IBS management. [facility] Other 06-21-2022 NotePROCEDURE: XR SHOULDER RT 2V or > COMPARISON: None. HISTORY: Pain of right shoulder joint FINDINGS: BONES:No fracture, acute abnormality, or significant arthropathy. SOFT TISSUES:Negative. No visible soft tissue swelling. EFFUSION:None visible. OTHER: Negative. IMPRESSION: Normal examination. Electronically authenticated by: NANDINI MAYER Date: 2022-05-13 08:41[facility]04-26-2022 History of Present illness Narrative* Francisco Ayers MD - 03/18/2022 10:43 AM EDT Referred by [facility] for disc edema, concern for IIH - Seen by Dr. Cody Land 01/27/22-- documented questionable elevation of optic nerve OU, concern for IIH given new onset headaches and pulsatile tinnitus - Daily headaches, relieved by Naproxen, not affected by changes in position, 4- 5 months - MRI 02/10/22: wnl - +pulsatile [...] Hair) regarding headaches-- will fax information to [phone] - Offered referral to neurology, patient prefers to talk to Dr. Hargrove first - Follow-up 1 year Estella Guerrero MD Ophthalmology Resident PGY-[address] Ayers I saw and evaluated the patient. I personally obtained the carey and critical portions of the historyand the ophthalmologic exam. I reviewed the resident's [...] papilledema. Francisco Ayers MD documented in this [id number] History of Present illness Narrative* Francisco Ayers MD - 03/18/2022 10:43 AM EDT Referred by [facility] for disc edema, concern for IIH - Seen by Dr. Cody Land 01/27/22-- documented questionable elevation of optic nerve OU, concern for IIH given new onset headaches and pulsatile tinnitus - Daily headaches, relieved by Naproxen, not affected by changes in position, 4- 5 months - MRI 02/10/22: wnl - +pulsatile [...] Hair) regarding headaches-- will fax information to [phone] - Offered referral to neurology, patient prefers to talk to Dr. Hargrove first - Follow-up 1 year Estella Guerrero MD Ophthalmology Resident PGY-[address] Ayers I saw and evaluated the patient. I personally obtained the carey and critical portions of the historyand the ophthalmologic exam. I reviewed the resident's [...] PCP. Francisco Ayers MD documented in this [id number] NoteChief Complaint consultation for epigastric pain HPI Staff 26 year old female presents on consultation from Kate Celaya NET TRAINER for 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 RUQ US completed 09/19 [...] swallowing difficulties, no hearing loss, no ear infection(s),no nose bleeds. Cardiovascular: normal blood pressure, no [...] epigastric pain; present for several years, worsening overlast several weeks; some nausea; intermittent emesis; pain ache, burning at time; some radiation into chest, no dysphagia; worse with certain foods; symptoms usually last several hours; 3 days ago had episode that persisted after eating pizza, seen in ED, improved with GI cocktail; outpatient GB USwith thickened, contracted GB with 1.9 cm stone [...] q6hr Pantoprazole 40 mg (more content not included)...[facility] Comment on above:Result Comment: Electronically Signed By: RUTH CLARK, Yonis Cardenas\Date and Time Signed: 09/23/21 21:36 [id number] NoteChief Complaint consultation for epigastric pain HPI Staff 26 year old female presents on consultation from Kate Celaya NET TRAINER for 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 RUQ US completed 09/19 with acute vs chronic cholecystitis. Verbalized chronic epigastric pain with burning sensation and acid reflux. Intermittent vomiting. Omeprazole changed to Pantoprazole at ED visit. History of Present Illness 26 yo female with h/o GERD, referred for epigastric pain; present for several years, worsening overlast several weeks; some nausea; intermittent emesis; pain ache, burning at time; some radiation into chest, no dysphagia; worse with certain foods; symptoms usually last several hours; 3 days ago had episode that persisted after eating pizza, seen in ED, improved with GI cocktail; outpatient GB USwith thickened, contracted GB with 1.9 cm stone [...] swallowing difficulties, no hearing loss, no ear infection(s),no nose bleeds. Cardiovascular: normal blood pressure, no [...] Alcohol - Denies Alcoho (more content not included)...[facility]Result Comment: Electronically Signed By: RUTH CLARK, Yonis Cardenas\Date and Time Signed: 09/23/21 21:34 EDTEvaluation note* Diagnosis Chronic nonintractable headache, unspecified headache type- [facility] Chronic nonintractable headache, unspecified headache type- Primary [facility] Other History general Narrative - ReportedNom[facility] Other [employer] general Narrative - Reported* Type Description Date Medical History irritable bowel syndrome Medical History depression Medical History PROTEINURIA, UNSPECIFIED Medical History HYPOGLYCEMIA Medical History ARTHRALGIA Medical History SHINGLES Medical History ADHD Surgical History ovary removed 2014 Surgical History cholecystectomy Surgical History bilateral fasciitis repair Surgical History bilateral bone spur removal Hospitalization History 1 child [facility] Other Summary Purpose Family History No Family History Records FoundNo Family History Records FoundNo Family History Records FoundNo Family History Records Found Advance Directives No Advanced Directives Records FoundNo Advanced Directives Records FoundNo Advanced Directives Records FoundNo Advanced Directives Records Found Additional Source Comments INFORMATION SOURCE (unrecogn ized section and content) DATE CREATED AUTHOR 08/31/2019 [facility] DATE CREATED AUTHOR AUTHOR'S ORGANIZ ATION 11/09/2021 [facility] DATE CREATED AUTHOR AUTHOR'S ORGANIZ ATION 03/20/2022 [employer] DATE CREATED AUTHOR AUTHOR'S ORGANIZ ATION 04/18/2023 [facility] Reason for Visit (unrecogniz ed section and content) RENAL PROTEINURIA Reason Comments Optic nerve edema FOR RECORDS [...] BE BASED ON THE PRIMARY CLINICAL RECORDS. [facility] provides no warranty or guarantee of the accuracy or completeness of information in this document.
--- NOTE | 2023-12-07 08:50 | CT_ITS ---
The [address] [address] Patient Name: ROSALIE FREEMAN MRN: [facility]:[id number] date: 1995 Sex: F Assigned Patient Location: CT Current Patient Location: CT Accession/Order Number: [id number] Exam Date: 12/07/2023 08:35 Report Date: 12/07/2023 10:00 At the request of: MELODIE ASHTON Procedure: CT abdomen wo/w con CT abdomen wo/w con, 12/07/2023 8:35 AM EST INDICATION: Cyst Of Kidneys Acquired N28.1 COMPARISON: Prior ultrasound of kidneys dated 11/27/2023 TECHNIQUE: Axial images of the abdomen were obtained before and after the administration of IV contrast. Multiplanar reformatted images were generated and reviewed as needed. Dose reduction techniques were achieved by using automated exposure control and/or adjustment of mA and/or kV according to patient size and/or use of iterative reconstruction technique. FINDINGS: Lungs: The base of lungs is clear. No pleural effusion is noted. Liver and gallbladder: The liver is unremarkable. Status post cholecystectomy. No enlargement of intra or extrahepatic biliary ducts. Genitourinary system: No hydronephrosis. No nephrolithiasis. No suspicious renal lesion is noted. Other solid abdominal organs: adrenal glands, pancreas, and spleen are unremarkable. Aorta: The infrarenal abdominal aorta is nonaneurysmal. Free fluid: There is no free fluid in the abdomen. Lymph node: No lymph node enlargement by size criteria is noted. Stomach and Bowel: No abnormality of the stomach is noted. No abnormality of visualized small or large bowel is noted. Bone: There is no suspicious osteolytic or osteoblastic lesion. CT/CT abdomen wo/w con IMPRESSION: No suspicious renal lesion is noted. Electronically authenticated by: VA TANNER Date: 12/07/2023 10:00
== END 2023-12-07 08:07 | disposition home or self-care (01) ==
LOC: CT 08:06
PROVIDERS: PCP Family Medicine; Visit Provider Family Medicine
DX: N28.1 Cyst of kidney, acquired (principal)
CPT/HCPCS: 74170; Q9967

== ENCOUNTER 2024-01-01 13:51 | Outpatient (OUT) | payer OTHER, SELFPAY ==
--- NOTE | 2024-01-01 13:54 | US_ITS ---
The [address] [address] Patient Name: ROSALIE FREEMAN MRN: [id number] date: 1995 Sex: F Assigned Patient Location: US Current Patient Location: US Accession/Order Number: [id number] Exam Date: 01/01/2024 14:04 Report Date: 01/01/2024 15:59 At the request of: MELODIE ASHTON Procedure: US renal bladder EXAMINATION: US renal bladder HISTORY: Urinary Tract Infection N39.0 COMPARISON: No relevant comparison available. TECHNIQUE: Ultrasound examination was performed of the bladder. FINDINGS: Right Kidney: Normal in size, contour and cortical echotexture. The cortex measures 1.3 cm. No solid cortical mass, hydronephrosis or obstructing nephrolithiasis Height: 5.6 cm Length: 12.6 cm Width: 5.9 cm Left Kidney: Normal in size, contour and cortical echotexture. The cortex measures 1.4 cm. No solid cortical mass, hydronephrosis or obstructing nephrolithiasis Height: 5.1 cm Length: 12.0 cm Width: 5.0 cm The urinary bladder measures 4.8 x 7.2 x 6.2 cm with a prevoid volume of 150 mL. Post void bladder 13 mL. Urinary bladder wall measures 3 mm, normal. US/US renal bladder IMPRESSION: No acute abnormality Electronically authenticated by: NANDINI MAYER Date: 01/01/2024 15:59
--- OUTSIDE RECORDS SUMMARY | 2024-01-01 14:12 | XMS_ITS | CCD ---
Author Name Unknown Address [address] [place] [address] Organization [facility] Care Team Providers Care Mutuel Teller Name Role Phone AMYPalomo ANDRESSA Kaur Referring Unavailable MELODIE HARGROVE Primary Care Unavailable [...] Unavailable HOY ., DR SEWELL Admkaty Unavailable FIFTY LAKES, DR NANDINI Stafford Consulting Unavailable HOY ., DR SEWELL Consulting Unavailable HOY ., DR SEWELL Primary Care Unavailable HOY ., DR SEWELL Attending Unavailable HOY ., DR SEWELL Admitting Unavailable HOY ., DR SEWELL Consulting Unavailable HOY ., DR SEWELL Primary Care Unavailable HOY ., DR SEWELL Attending Unavailable HOY ., DR SEWELL Admitting Unavailable FIFTY LAKES, DR NANDINI Stafford Consulting Unavailable HOY ., DR SEWELL Primary Care Unavailable HOY ., DR SEWELL Attending Unavailable HOGerman ., DR SEWELL Admitting Unavailable JETHRO GRIFFITH Consulting Unavailable JETHRO GRIFFITH Attending Unavailable JETHRO GRIFFITH Admitting Unavailable POLI ., DR SEWELL Primary Care Unavailable ELLIS TOLEDO Consulting Unavailable ELLIS TOLEDO Attending Unavailable ELLIS TOLEDO Admitting Unavailable POLI ., DR SEWELL Primary Care Unavailable Taniya Brody Unavailable Allergies Allergy Classification Reported Allergen(s) Allergy Type Date of Onset Reaction(s) Facility (1 source) [facility] [place]; Translations: [[facility] [place]] Propensity to adverse reactions (disorder) [facility] Repository (2 sources) [facility] allergy [facility] [employer] Other (1 source) No Known Medication Allergies; Translations: [No Known Medication Allergies] Propensity to adverse reactions (disorder) [facility] Repository Medications Current Medications Medication Drug Class(es) Dates Sig (Normalized) Sig (Original) amoxicillin 500 mg oral capsule (2 sources) Penicillin-class Antibacterial take 1 capsule by mouth every twelve hours Amoxicillin 500 MG 1 capsule Orally Twice a day for 30 days Active dicyclomine hydrochloride 20 mg oral tablet (1 source) Anticholinergic Start: 11-19-2021 take 1 tablet by mouth every twelve hours 24 hr guanFACINE 3 mg extended release oral tablet (2 sources) Central alpha-2 Adrenergic Agonist take 1 tablet by mouth once daily guanFACINE HCl ER 3 MG TAKE 1 TABLET BY MOUTH EVERY DAY Oral for 30 Days Active meloxicam 15 mg oral tablet (2 sources) Nonsteroidal Anti-inflammatory Drug take 1 tablet by mouth every twenty-four hours Meloxicam 15 MG 1 tablet Orally Once a day Active sertraline 100 mg oral tablet (3 sources) Serotonin Reuptake Inhibitor take 1 tablet by mouth every twenty-four hours Zoloft 100 MG 1 tablet Orally Once a day Active Problems Active Problems Problem Classification Problem Date Documented Da te Episodic/Chronic Conditions associated with dizziness or vertigo (4 sources) Dizziness and giddiness; Translations: [DIZZINESS AND GIDDINESS] Onset: 3 Episodic Esophageal disorders (4 sources) Gastroesophageal reflux disease; Translations: [Gastro-esophageal reflux disease without esophagitis] Onset: 1 Resolved: 1 Chronic Genitourinary symptoms and ill-defined conditions (1 source) Proteinuria, unspecified Episodic Headache; including migraine (2 sources) Headache; Translations: [Chronic nonintractable headache, unspecified headache type] Episodic Nausea and vomiting (1 source) Nausea; Translations: [NAUSEA] Onset: 3 Episodic Other aftercare (1 source) Other usp (current) drug therapy; Translations: [OTH BACKHAUL DRIVER CURRENT DRUG THERAPY] Onset: 3 Episodic Other diseases of kidney and ureters (1 source) Disorder of kidney and ureter, unspecified Episodic Other endocrine disorders (4 sources) Other hypoglycemia; Translations: [OTHER HYPOGLYCEMIA] Onset: 3 Chronic Other gastrointestinal disorders (3 sources) Irritable bowel syndrome; Translations: [Irritable bowel [...] B (Bld) [Mass/Vol] 246.0 pg/mL Normal <=450.0 [facility] Comment on above: Performed By: #### I NSULIN #### [facility] [address] [place] [address] Dr. Saray Souza CARDIAC NELI ADMITon 023 CK [Catalytic activity/Vol] 47 U/L Normal 26-192 [facility] Comment on above: Performed By: #### I NSULIN #### [facility] [address] [place] [address] Dr. Saray Souza CK.MB [Mass/Vol] 1.02 ng/mL Normal <=3.60 [facility] Comment on above: Performed By: #### I NSULIN #### [facility] [address] [place] [address] Dr. Saray Souza HSTROP 4.5 pg/mL Normal 4.0-51.3 [facility] Comment on above: Result Comment: CUT- OFF POINTS HAVE BEEN ESTABLISHED BASED ON THE FOURTH UNIVERSAL DEFINITIONS OF MYOCARDIAL INFARCTION. THE UPPER REFERENCE LIMIT (URL) OF TROPONIN, DEFINED THE 99TH PERCENTILE OF cTnI DISTRIBUTION IN A REFERENCE POPULATION, HAS BEEN CONFIRMED THE DECISION THRESHOLD FOR [place] DIAGNOSIS. Performed By: #### I NSULIN #### [facility] [address] [place] [address] Dr. Saray Souza FRANKLIN 36 ng/mL Normal 9-82 [facility] Comment on above: Performed By: #### I NSULIN #### [facility] [address] [place] [address] Dr. Saray Souza CBC W MANUAL DIFFon 04-17-20 23 ATYPICAL LYMPH # Normal [facility] Comment on above: Performed By: #### C EDGARDO #### [facility] [address] [place] [address] Dr. Saray Souza ATYPICAL LYMPH % Normal [facility] Comment on above: Performed By: #### C EDGARDO #### [facility] [address] [place] [address] Dr. Saray Souza BAND # 0.3 103/ul Normal 0.0-0.3 [facility] Comment on above: Performed By: #### C EDGARDO #### [facility] [address] [place] [address] Dr. Saray Souza BAND % 1 % Normal 0-5 [facility] Comment on above: Performed By: #### C EDAGRDO #### [facility] [address] [place] [address] Dr. Saray Souza BASOM # 0.00 103/ul Normal 0.00-0.10 [facility] Comment on above: Performed By: #### C EDGARDO #### [facility] [address] [place] [address] Dr. Saray Souza BASOM % 0.0 % Critically low 0.2-2.0 [facility] Comment on above: Performed By: #### C EDGARDO #### [facility] [address] [place] [address] Dr. Saray Souza BLAST # Normal [facility] Comment on above: Performed By: #### C EDGARDO #### [facility] [address] [place] [address] Dr. Saray Souza BLAST % Normal [facility] Comment on above: Performed By: #### C EDGARDO #### [facility] [address] [place] [address] Dr. Saray Souza CORRECTED WBC Normal 4.0-11.0 [facility] Comment on above: Performed By: #### C BCMAN #### [facility] [address] [place] [address] Dr. Saray Souza EOS # 0.00 103/ul Normal 0.00-0.70 [facility] Comment on above: Performed By: #### C BCPRESLEY #### [facility] [address] [place] [address] Dr. Saray Souza EOS% 0.0 % Critically low 0.9-7.0 [facility] Comment on above: Performed By: #### C BCMAN #### [facility] [address] [place] [address] Dr. Saray Souza HCT 43.6 % Normal 36.0-48.0 [facility] Comment on above: Performed By: #### C EDGARDO #### [facility] [address] [place] [address] Dr. Saray Souza HGB 14.7 g/dl Normal 12.0-16.0 [facility] Comment on above: Performed By: #### C BCPRESLEY #### [facility] [address] [place] [address] Dr. Saray Souza LYMPHM # 1.55 103/ul Normal 1.20-3.80 [facility] Comment on above: Performed By: #### C BCPRESLEY #### [facility] [address] [place] [address] Dr. Saray Souza LYMPHM% 6.0 % Critically low 20.5-60.0 [facility] Comment on above: Performed By: #### C BCPRESLEY #### [facility] [address] [place] [address] Dr. Saray Souza MCH 30.3 pg Normal 26.7-34.0 [facility] Comment on above: Performed By: #### C BCMAN #### [facility] [address] [place] [address] Dr. Saray Souza MCHC 33.7 g/dl Normal 29.9-35.2 [facility] Comment on above: Performed By: #### C EDGARDO #### [facility] [address] [address] [address] Saray Souza MCV 89.9 fL Normal 81.0-99.0 [facility] Comment on above: Performed By: #### C EDGARDO #### [facility] [address] [address] [address] Saray Souza METAMYELOCYTE # Normal [facility] Comment on above: Performed By: #### C EDGARDO #### [facility] [address] [place] [address] Dr. Saray Souza METAMYELOCYTE % Normal [facility] Comment on above: Performed By: #### C EDGARDO #### [facility] [address] [place] [address] Dr. Saray Souza MONOM# 2.06 103/ul Critically high 0.30-0.80 [facility] Comment on above: Performed By: #### C EDGARDO #### [facility] [address] [place] [address] Dr. Saray Souza MONOM% 8.0 % Normal 1.7-12.0 [facility] Comment on above: Performed By: #### C EDGARDO #### [facility] [address] [place] [address] Dr. Saray Souza MPV 8.8 fL Critically low 9.5-13.5 [facility] Comment on above: Performed By: #### C EDGARDO #### [facility] [address] [place] [address] Dr. Saray Souza MYELOCYTE # Normal [facility] Comment on above: Performed By: #### C EDGARDO #### [facility] [address] [place] [address] Dr. Saray Souza MYELOCYTE % Normal [facility] Comment on above: Performed By: #### C EDGARDO #### [facility] [address] [place] [address] Dr. Saray Souza NRBC Normal [facility] Comment on above: Performed By: #### C EDGARDO #### [facility] [address] [address] [address] Saray Souza PLT 397 103/ul Normal 150-450 [facility] Comment on above: Performed By: #### Sweetie REYNOSO #### [facility] [address] [place] [address] Dr. Saray Souza RBC 4.85 106/ul Normal 4.20-5.40 [facility] Comment on above: Performed By: #### C EDGARDO #### [facility] [address] [place] [address] Dr. Saray Souza RDW 12.0 % Normal 11.0-15.0 [facility] Comment on above: Performed By: #### Sweetie REYNOSO #### [facility] [address] [place] [address] Dr. Saray Souza SEG # 21.93 103/ul Critically high 1.40-6.50 [facility] Comment on above: Performed By: #### Sweetie REYNOSO #### [facility] [address] [place] [address] Dr. Saray Souaz SEG % 85.0 % Critically high 43.0-75.0 [facility] Comment on above: Performed By: #### Sweetie REYNOSO #### [facility] [address] [place] [address] Dr. Saray Souza WBC 25.8 103/ul Critically high 4.0-11.0 [facility] Comment on above: Performed By: #### Sweetie REYNOSO #### [facility] [address] [place] [address] Dr. Saray Souza CULTURE URINEon 04-17-2023 CULTURE URINE Culture Observations : LORENZO TO FOLLOW. Isolate 1 Enterococcus faecalis 20,000 cfu/mL of Normal [facility] Comment on above: Performed By: #### C BC #### [facility] [address] [place] [address] Dr. Saray Souza ER URINE PROFILEon 3 Bilirubin Ql (U) Negative Normal NEGATIVE [facility] Comment on above: Performed By: #### C BC #### [facility] [address] [place] [address] Dr. Saray Souza Clarity (U) CLEAR Normal CLEAR [facility] Comment on above: Performed By: #### C BC #### [facility] [address] [place] [address] Dr. Saray Souza Color (U) LT. YELLOW Normal YELLOW [facility] Comment on above: Performed By: #### C BC #### [facility] [address] [place] [address] Dr. Saray Souza ERUAHHumera A micrscopic examination will be performed if indicated. Normal [facility] Comment on above: Performed By: #### C BC #### [facility] [address] [place] [address] Dr. Saray Souza Glucose Ql (U) Negative Normal NEGATIVE [facility] Comment on above: Performed By: #### C BC #### [facility] [address] [place] [address] Dr. Saray Souza Hemoglobin Ql (U) Negative Normal NEGATIVE [facility] Comment on above: Performed By: #### C BC #### [facility] [address] [place] [address] Dr. Saray Souza Ketones Ql (U) Negative Normal NEGATIVE [facility] Comment on above: Performed By: #### C BC #### [facility] [address] [place] [address] Dr. Saray Souza LEUKOCYTES SMALL Abnormal NEGATIVE [facility] Comment on above: Performed By: #### C BC #### [facility] [address] [place] [address] Dr. Saray Souza Nitrite Ql (U) Negative Normal NEGATIVE [facility] Comment on above: Performed By: #### C BC #### [facility] [address] [place] [address] Dr. Saray Souza pH (U) 6.5 [pH] Normal 5-9 [facility] Comment on above: Performed By: #### C BC #### [facility] [address] [place] [address] Dr. Saray Souza SPEC GRAVITY 1.025 Normal 1.005-<=1.025 [facility] Comment on above: Performed By: #### C BC #### [facility] [address] [place] [address] Dr. Saray Souza UA PROTEIN Negative Normal NEGATIVE/ TRACE [facility] Comment on above: Performed By: #### C BC #### [facility] [address] [place] [address] Dr. Saray Souza UR MICRO IND INDICATED Normal [facility] Comment on above: Performed By: #### C BC #### [facility] [address] [place] [address] Dr. Saray Souza Urobilinogen Qn (U) 0.2 {Janine'U}/dL Normal 0.2 - 1. 0 [facility] Comment on above: Performed By: #### C BC #### [facility] [address] [place] [address] Dr. Saray Souza URon 04-17-2023 , QUAL Negative Normal NEGATIVE [facility] Comment on above: Performed By: #### C BC #### [facility] [address] [place] [address] Dr. Saray Souza PROF 14(COMP METB)on 023 Albumin [Mass/Vol] 3.0 g/dL Critically low 3.4-5.0 [facility] Comment on above: Performed By: #### I NSULIN #### [facility] [address] [place] [address] Dr. Saray Souza Albumin/Globulin [Mass ratio] 0.9 {ratio} Normal [facility] Comment on above: Performed By: #### I NSULIN #### [facility] [address] [place] [address] Dr. Saray Souza ALP [Catalytic activity/Vol] 54 U/L Normal 46-116 [facility] Comment on above: Performed By: #### I NSULIN #### [facility] [address] [place] [address] Dr. Saray Souza ALT [Catalytic activity/Vol] 27 U/L Normal 14-59 [facility] Comment on above: Performed By: #### I NSULIN #### [facility] [address] [address] [address] Saray Souza Anion gap [Moles/Vol] 12.9 mmol/L Normal [facility] Comment on above: Performed By: #### I NSULIN #### [facility] [address] [place] [address] Dr. Saray Souza AST [Catalytic activity/Vol] 12 U/L Critically low 15-37 [facility] Comment on above: Performed By: #### I NSULIN #### [facility] [address] [place] [address] Dr. Saray Souza Bilirubin [Mass/Vol] 0.3 mg/dL Normal 0.2-1.0 [facility] Comment on above: Performed By: #### I NSULIN #### [facility] [address] [place] [address] Dr. Saray Souza Calcium [Mass/Vol] 8.1 mg/dL Critically low 8.5-10.1 [facility] Comment on above: Performed By: #### I NSULIN #### [facility] [address] [place] [address] Dr. Saray Souza Chloride [Moles/Vol] 102 mmol/L Normal 98-107 [facility] Comment on above: Performed By: #### I NSULIN #### [facility] [address] [place] [address] Dr. Saray Souza CO2 [Moles/Vol] 26.2 mmol/L Normal 21.0-32.0 [facility] Comment on above: Performed By: #### I NSULIN #### [facility] [address] [place] [address] Dr. Saray Souza Creatinine [Mass/Vol] 0.87 mg/dL Normal 0.55-1.02 [facility] Comment on above: Performed By: #### I NSULIN #### [facility] [address] [place] [address] Dr. Saray Souza EGFR-AF TANZANIAN >60 Normal >=60 [facility] Comment on above: Performed By: #### I NSULIN #### [facility] [address] [place] [address] Dr. Saray Souza EGFR-NON AF TANZANIAN >60 Normal >=60 [facility] Comment on above: Performed By: #### I NSULIN #### [facility] [address] [place] [address] Dr. Saray Souza Globulin (S) [Mass/Vol] 3.2 g/dL Normal [facility] Comment on above: Performed By: #### I NSULIN #### [facility] [address] [address] [address] Saray Souza Glucose [Mass/Vol] 206 mg/dL Critically high 74-106 [facility] Comment on above: Performed By: #### I NSULIN #### [facility] [address] [place] [address] Dr. Saray Souza Potassium [Moles/Vol] 4.1 mmol/L Normal 3.5-5.1 [facility] Comment on above: Performed By: #### I NSULIN #### [facility] [address] [place] [address] Dr. Saray Souza Protein [Mass/Vol] 6.2 g/dL Critically low 6.4-8.2 [facility] Comment on above: Performed By: #### I NSULIN #### [facility] [address] [place] [address] Dr. Saray Souza Sodium [Moles/Vol] 137 mmol/L Normal 136-145 [facility] Comment on above: Performed By: #### I NSULIN #### [facility] [address] [place] [address] Dr. Saray Souza Urea nitrogen [Mass/Vol] 19.0 mg/dL Critically high 7.0-18.0 [facility] Comment on above: Performed By: #### I NSULIN #### [facility] [address] [place] [address] Dr. Saray Souza Urea nitrogen/Creatinine [Mass ratio] 21.8 mg/mg Normal [facility] Comment on above: Performed By: #### I NSULIN #### [facility] [address] [place] [address] Dr. Saray Souza TSHon 04-17-2023 TSH 0.553 uIU/mL Normal 0.358-3.740 [facility] Comment on above: Performed By: #### I NSULIN #### [facility] [address] [place] [address] Dr. Saray Souza URINE MICROSCOPIC ONLYon BACTERIA TRACE Abnormal NONE SEEN [facility] Comment on above: Performed By: #### C BC #### [facility] [address] [place] [address] Dr. Saray Souza Bacteria identified Cx Nom (U) INDICATED Normal [facility] Comment on above: Performed By: #### C BC #### [facility] [address] [place] [address] Dr. Saray Souza CAST NONE SEEN Normal NONE SEEN [facility] Comment on above: Performed By: #### C BC #### [facility] [address] [place] [address] Dr. Saray Souza Crystals LM Nom (Urine sed) NONE SEEN Normal NONE SEEN [facility] Comment on above: Performed By: #### C BC #### [facility] [address] [place] [address] Dr. Saray Souza Epithelial cells LM Ql (Urine sed) RARE Normal NONE SEEN /RARE [facility] Comment on above: Performed By: #### C BC #### [facility] [address] [place] [address] Dr. Saray Souza MUCOUS NONE SEEN Normal NONE SEEN [facility] Comment on above: Performed By: #### C BC #### [facility] [address] [place] [address] Dr. Saray Souza RBC 0-2 Normal 0-2 [facility] Comment on above: Performed By: #### C BC #### [facility] [address] [place] [address] Dr. Saray Souza WBC 5-10 Abnormal NONE SEEN [facility] Comment on above: Performed By: #### C BC #### [facility] [address] [place] [address] Dr. Saray Souza XR CHEST 2 Von [...] CAROL RAMIREZ Date: 2023-04-17 10:45 Normal [facility] INSULINon 04-07-2023 Insulin 11.3 uIU/mL Normal 2.6-24.9 [facility] Comment on above: Performed By: #### I NSULIN #### [facility] [address] [place] [address] Dr. Saray Souza US KIDNEYS BLADDERon 023 [...] NANDINI MAYER Date: 2023-04-04 08:22 Normal [facility] INSULINon 04-02-2023 Insulin 37.5 uIU/mL Critically high 2.6-24.9 [facility] Comment on above: Performed By: #### I NSULIN #### [facility] [address] [place] [address] Dr. Saray Souza CBC AUTO DIFFon 04-01-2023 BASO # 0.0 103/ul Normal 0.0-0.1 [facility] Comment on above: Performed By: #### C BC #### [facility] [address] [place] [address] Dr. Saray Souza Basophils/100 WBC (Bld) 0.5 % Normal 0.2-2.0 [facility] Comment on above: Performed By: #### C BC #### [facility] [address] [place] [address] Dr. Saray Souza EO # 0.2 103/ul Normal 0.0-0.7 [facility] Comment on above: Performed By: #### C BC #### [facility] [address] [place] [address] Dr. Saray Souza Eosinophils/100 WBC (Bld) 2.3 % Normal 0.9-7.0 [facility] Comment on above: Performed By: #### C BC #### [facility] [address] [place] [address] Dr. Saray Souza Erythrocyte distribution width (RBC) [Ratio] 11.9 % Normal 11.0-15.0 [facility] Comment on above: Performed By: #### C BC #### [facility] [address] [place] [address] Dr. Saray Souza Hematocrit (Bld) [Volume fraction] 42.2 % Normal 36.0-48.0 [facility] Comment on above: Performed By: #### C BC #### [facility] [address] [place] [address] Dr. Saray Souza Hemoglobin (Bld) [Mass/Vol] 13.7 g/dL Normal 12.0-16.0 [facility] Comment on above: Performed By: #### C BC #### [facility] [address] [place] [address] Dr. Saray Souza IG # 0.02 10e3/ul Normal 0.00-0.03 [facility] Comment on above: Performed By: #### C BC #### [facility] [address] [place] [address] Dr. Saray Souza IG % 0.3 % Normal 0.0-0.5 [facility] Comment on above: Performed By: #### C BC #### [facility] [address] [place] [address] Dr. Saray Souza LYMPH # 1.6 103/ul Normal 1.2-3.8 [facility] Comment on above: Performed By: #### C BC #### [facility] [address] [place] [address] Dr. Saray Souza Lymphocytes/100 WBC (Bld) 21.5 % Normal 20.5-60.0 [facility] Comment on above: Performed By: #### C BC #### [facility] [address] [place] [address] Dr. Saray Souza MANUAL DIFF REQ NO Normal [facility] Comment on above: Performed By: #### C BC #### [facility] [address] [place] [address] Dr. Saray Souza MCH (RBC) [Entitic mass] 30.0 pg Normal 26.7-34.0 [facility] Comment on above: Performed By: #### C BC #### [facility] [address] [place] [address] Dr. Saray Souza MCHC (RBC) [Mass/Vol] 32.5 g/dL Normal 29.9-35.2 [facility] Comment on above: Performed By: #### C BC #### [facility] [address] [place] [address] Dr. Saray Souza MCV (RBC) [Entitic vol] 92.5 fL Normal 81.0-99.0 [facility] Comment on above: Performed By: #### C BC #### [facility] [address] [place] [address] Dr. Saray Souza MONO # 0.7 103/ul Normal 0.3-0.8 [facility] Comment on above: Performed By: #### C BC #### [facility] [address] [place] [address] Dr. Saray Souza Monocytes/100 WBC (Bld) 9.6 % Normal 1.7-12.0 [facility] Comment on above: Performed By: #### C BC #### [facility] [address] [place] [address] Dr. Saray Souza NEUT # 5.0 103/ul Normal 1.4-6.5 [facility] Comment on above: Performed By: #### C BC #### [facility] [address] [place] [address] Dr. Saray Souza Neutrophils/100 WBC (Bld) 65.8 % Normal 43.0-75.0 [facility] Comment on above: Performed By: #### C BC #### [facility] [address] [place] [address] Dr. Saray Souza Platelet mean volume (Bld) [Entitic vol] 8.9 fL Critically low 9.5-13.5 [facility] Comment on above: Performed By: #### C BC #### [facility] [address] [place] [address] Dr. Saray Souza PLT 293 103/ul Normal 150-450 [facility] Comment on above: Performed By: #### C BC #### [facility] [address] [place] [address] Dr. Saray Souza RBC 4.56 106/ul Normal 4.20-5.40 [facility] Comment on above: Performed By: #### C BC #### [facility] [address] [place] [address] Dr. Saray Souza WBC 7.5 103/ul Normal 4.0-11.0 [facility] Comment on above: Performed By: #### C BC #### [facility] [address] [place] [address] Dr. Saray Souza CULTURE URINEon 04-01-2023 CULTURE URINE Culture Observations : MODERATE GROWTH OF MIXED GENITAL CARMELO. NO POTENTIAL PATHOGENS SEEN. Normal [facility] Comment on above: Performed By: #### C BC #### [facility] [address] [place] [address] Dr. Saray Souza FREE THYROXINE INDEX T7on FTI 2.51 Normal 1.30-4.50 [facility] Comment on above: Performed By: #### I NSULIN #### [facility] [address] [address] [address] Saray Souza T3U 33.0 % Normal 30.0-39.0 [facility] Comment on above: Performed By: #### I CURLYULIN #### [facility] [address] [place] [address] Dr. Saray Souza T4 [Mass/Vol] 7.60 ug/dL Normal 4.80-13.90 [facility] Comment on above: Performed By: #### I NSULIN #### [facility] [address] [place] [address] Dr. Saray Souza IRONon 04-01-2023 Iron [Mass/Vol] 151.0 ug/dL Normal 50.0-170.0 [facility] Comment on above: Performed By: #### C EDGARDO #### [facility] [address] [place] [address] Dr. Saray Souza PROF 14(COMP METB)on 023 Albumin [Mass/Vol] 3.7 g/dL Normal 3.4-5.0 [facility] Comment on above: Performed By: #### C EDGARDO #### [facility] [address] [place] [address] Dr. Saray Souza Albumin/Globulin [Mass ratio] 1.1 {ratio} Normal [facility] Comment on above: Performed By: #### C EDGARDO #### [facility] [address] [place] [address] Dr. Saray Souza ALP [Catalytic activity/Vol] 81 U/L Normal 46-116 [facility] Comment on above: Performed By: #### C EDGARDO #### [facility] [address] [place] [address] Dr. Saray Souza ALT [Catalytic activity/Vol] 33 U/L Normal 14-59 [facility] Comment on above: Performed By: #### C EDGARDO #### [facility] [address] [place] [address] Dr. Saray Souza Anion gap [Moles/Vol] 10.2 mmol/L Normal [facility] Comment on above: Performed By: #### C BCMAN #### [facility] [address] [address] [address] Saray Souza AST [Catalytic activity/Vol] 22 U/L Normal 15-37 [facility] Comment on above: Performed By: #### C BCMAN #### [facility] [address] [address] [address] Saray Souza Bilirubin [Mass/Vol] 0.3 mg/dL Normal 0.2-1.0 [facility] Comment on above: Performed By: #### C BCMAN #### [facility] [address] [address] [address] Saray Souza Calcium [Mass/Vol] 8.6 mg/dL Normal 8.5-10.1 [facility] Comment on above: Performed By: #### C BCMAN #### [facility] [address] [address] [address] Saray Souza Chloride [Moles/Vol] 105 mmol/L Normal 98-107 [facility] Comment on above: Performed By: #### C BCMAN #### [facility] [address] [address] [address] Saray Souza CO2 [Moles/Vol] 30.4 mmol/L Normal 21.0-32.0 [facility] Comment on above: Performed By: #### C BCMAN #### [facility] [address] [address] [address] Saray Souza Creatinine [Mass/Vol] 0.72 mg/dL Normal 0.55-1.02 [facility] Comment on above: Performed By: #### C BCMAN #### [facility] [address] [address] [address] Saray Souza EGFR-AF TANZANIAN >60 Normal >=60 [facility] Comment on above: Performed By: #### C BCMAN #### [facility] [address] [address] [address] Saray Souza EGFR-NON AF TANZANIAN >60 Normal >=60 [facility] Comment on above: Performed By: #### C BCMAN #### [facility] [address] [address] [address] Saray Souza Globulin (S) [Mass/Vol] 3.5 g/dL Normal [facility] Comment on above: Performed By: #### C BCMAN #### [facility] [address] [address] [address] Saray Souza Glucose [Mass/Vol] 89 mg/dL Normal 74-106 [facility] Comment on above: Performed By: #### C BCMAN #### [facility] [address] [address] [address] Saray Souza Potassium [Moles/Vol] 3.6 mmol/L Normal 3.5-5.1 [facility] Comment on above: Performed By: #### C EDGARDO #### [facility] [address] [place] [address] Dr. Saray Souza Protein [Mass/Vol] 7.2 g/dL Normal 6.4-8.2 [facility] Comment on above: Performed By: #### C EDGARDO #### [facility] [address] [place] [address] Dr. Saray Souza Sodium [Moles/Vol] 142 mmol/L Normal 136-145 [facility] Comment on above: Performed By: #### C EDGARDO #### [facility] [address] [place] [address] Dr. Saray Souza Urea nitrogen [Mass/Vol] 12.0 mg/dL Normal 7.0-18.0 [facility] Comment on above: Performed By: #### C EDGARDO #### [facility] [address] [place] [address] Dr. Saray Souza Urea nitrogen/Creatinine [Mass ratio] 16.7 mg/mg Normal [facility] Comment on above: Performed By: #### C EDGARDO #### [facility] [address] [place] [address] Dr. Saray Souza TSHon 04-01-2023 TSH 1.708 uIU/mL Normal 0.358-3.740 [facility] Comment on above: Performed By: #### I NSULIN #### [facility] [address] [address] [address] Saray Souza UA RANDOM W/MICROSCOPICon BACTERIA SMALL Abnormal NONE SEEN [facility] Comment on above: Performed By: #### I NSULIN #### [facility] [address] [place] [address] Dr. Saray Souza Bilirubin Ql (U) Negative Normal NEGATIVE [facility] Comment on above: Performed By: #### I NSULIN #### [facility] [address] [address] [address] Saray Souza CAST NONE SEEN Normal NONE SEEN [facility] Comment on above: Performed By: #### I NSULIN #### [facility] [address] [place] [address] Dr. Saray Souza Clarity (U) CLEAR Normal CLEAR [facility] Comment on above: Performed By: #### I NSULIN #### [facility] [address] [address] [address] Saray Souza Color (U) YELLOW Normal YELLOW [facility] Comment on above: Performed By: #### I NSULIN #### [facility] [address] [place] [address] Dr. Saray Souza Crystals LM Nom (Urine sed) NONE SEEN Normal NONE SEEN [facility] Comment on above: Performed By: #### I NSULIN #### [facility] [address] [place] [address] Dr. Saray Souza Epithelial cells LM Ql (Urine sed) FEW Abnormal NONE SEEN /RARE [facility] Comment on above: Performed By: #### I NSULIN #### [facility] [address] [place] [address] Dr. Saray Souza Glucose Ql (U) Negative Normal NEGATIVE [facility] Comment on above: Performed By: #### I NSULIN #### [facility] [address] [place] [address] Dr. Saray Souza Hemoglobin Ql (U) Negative Normal NEGATIVE [facility] Comment on above: Performed By: #### I NSULIN #### [facility] [address] [place] [address] Dr. Saray Souza Ketones Ql (U) TRACE Abnormal NEGATIVE [facility] Comment on above: Performed By: #### I NSULIN #### [facility] [address] [place] [address] Dr. Saray Souza LEUKOCYTES SMALL Abnormal NEGATIVE [facility] Comment on above: Performed By: #### I NSULIN #### [facility] [address] [place] [address] Dr. Saray Souza MUCOUS NONE SEEN Normal NONE SEEN [facility] Comment on above: Performed By: #### I NSULIN #### [facility] [address] [place] [address] Dr. Saray Souza Nitrite Ql (U) Negative Normal NEGATIVE [facility] Comment on above: Performed By: #### I NSULIN #### [facility] [address] [place] [address] Dr. Saray Souza pH (U) 5.5 [pH] Normal 5-9 [facility] Comment on above: Performed By: #### I NSULIN #### [facility] [address] [place] [address] Dr. Saray Souza RBC 0-2 Normal 0-2 [facility] Comment on above: Performed By: #### I NSULIN #### [facility] [address] [place] [address] Dr. Saray Souza SPEC GRAVITY >=1.030 Abnormal 1.005-<=1.025 [facility] Comment on above: Performed By: #### I NSULIN #### [facility] [address] [place] [address] Dr. Saray Souza UA PROTEIN Negative Normal NEGATIVE/ TRACE [facility] Comment on above: Performed By: #### I NSULIN #### [facility] [address] [place] [address] Dr. Saray Souza Urobilinogen Qn (U) 0.2 {Janine'U}/dL Normal 0.2 - 1. 0 [facility] Comment on above: Performed By: #### I NSULIN #### [facility] [address] [place] [address] Dr. Saray Souza WBC 5-10 Abnormal NONE SEEN [facility] Comment on above: Performed By: #### I NSULIN #### [facility] [address] [place] [address] Dr. Saray Souza INSULINon 02-14-2023 Insulin 12.8 uIU/mL Normal 2.6-24.9 [facility] Comment on above: Performed By: #### C BC #### [facility] [address] [place] [address] Dr. Saray Souza CBC AUTO DIFFon 02-13-2023 BASO # 0.0 103/ul Normal 0.0-0.1 [facility] Comment on above: Performed By: #### C BC #### [facility] [address] [place] [address] Dr. Saray Souza Basophils/100 WBC (Bld) 0.4 % Normal 0.2-2.0 [facility] Comment on above: Performed By: #### C BC #### [facility] [address] [place] [address] Dr. Saray Souza EO # 0.1 103/ul Normal 0.0-0.7 [facility] Comment on above: Performed By: #### C BC #### [facility] [address] [place] [address] Dr. Saray Souza Eosinophils/100 WBC (Bld) 1.6 % Normal 0.9-7.0 [facility] Comment on above: Performed By: #### C BC #### [facility] [address] [place] [address] Dr. Saray Souza Erythrocyte distribution width (RBC) [Ratio] 11.9 % Normal 11.0-15.0 [facility] Comment on above: Performed By: #### C BC #### [facility] [address] [place] [address] Dr. Saray Souza Hematocrit (Bld) [Volume fraction] 41.9 % Normal 36.0-48.0 [facility] Comment on above: Performed By: #### C BC #### [facility] [address] [place] [address] Dr. Saray Souza Hemoglobin (Bld) [Mass/Vol] 13.7 g/dL Normal 12.0-16.0 [facility] Comment on above: Performed By: #### C BC #### [facility] [address] [place] [address] Dr. Saray Souza IG # 0.02 10e3/ul Normal 0.00-0.03 [facility] Comment on above: Performed By: #### C BC #### [facility] [address] [place] [address] Dr. Saray Souza IG % 0.3 % Normal 0.0-0.5 [facility] Comment on above: Performed By: #### C BC #### [facility] [address] [place] [address] Dr. Saray Souza LYMPH # 1.4 103/ul Normal 1.2-3.8 [facility] Comment on above: Performed By: #### C BC #### [facility] [address] [place] [address] Dr. Saray Souza Lymphocytes/100 WBC (Bld) 18.6 % Critically low 20.5-60.0 [facility] Comment on above: Performed By: #### C BC #### [facility] [address] [place] [address] Dr. Saray Souza MANUAL DIFF REQ NO Normal [facility] Comment on above: Performed By: #### C BC #### [facility] [address] [place] [address] Dr. Saray Souza MCH (RBC) [Entitic mass] 29.9 pg Normal 26.7-34.0 [facility] Comment on above: Performed By: #### C BC #### [facility] [address] [place] [address] Dr. Saray Souza MCHC (RBC) [Mass/Vol] 32.7 g/dL Normal 29.9-35.2 [facility] Comment on above: Performed By: #### C BC #### [facility] [address] [place] [address] Dr. Saray Souza MCV (RBC) [Entitic vol] 91.5 fL Normal 81.0-99.0 [facility] Comment on above: Performed By: #### C BC #### [facility] [address] [place] [address] Dr. Saray Souza MONO # 0.6 103/ul Normal 0.3-0.8 [facility] Comment on above: Performed By: #### C BC #### [facility] [address] [place] [address] Dr. Saray Souza Monocytes/100 WBC (Bld) 8.3 % Normal 1.7-12.0 [facility] Comment on above: Performed By: #### C BC #### [facility] [address] [place] [address] Dr. Saray Souza NEUT # 5.5 103/ul Normal 1.4-6.5 [facility] Comment on above: Performed By: #### C BC #### [facility] [address] [place] [address] Dr. Saray Souza Neutrophils/100 WBC (Bld) 70.8 % Normal 43.0-75.0 [facility] Comment on above: Performed By: #### C BC #### [facility] [address] [place] [address] Dr. Saray Souza Platelet mean volume (Bld) [Entitic vol] 9.0 fL Critically low 9.5-13.5 [facility] Comment on above: Performed By: #### C BC #### [facility] [address] [place] [address] Dr. Saray Souza PLT 271 103/ul Normal 150-450 [facility] Comment on above: Performed By: #### C BC #### [facility] [address] [place] [address] Dr. Saray Souza RBC 4.58 106/ul Normal 4.20-5.40 [facility] Comment on above: Performed By: #### C BC #### [facility] [address] [place] [address] Dr. Saray Souza WBC 7.7 103/ul Normal 4.0-11.0 [facility] Comment on above: Performed By: #### C BC #### [facility] [address] [place] [address] Dr. Saray Souza FREE THYROXINE INDEX T7on FTI 2.56 Normal 1.30-4.50 [facility] Comment on above: Performed By: #### I NSULIN #### [facility] [address] [place] [address] Dr. Saray Souza T3U 36.0 % Normal 30.0-39.0 [facility] Comment on above: Performed By: #### I NSULIN #### [facility] [address] [place] [address] Dr. Saray Souza T4 [Mass/Vol] 7.10 ug/dL Normal 4.80-13.90 [facility] Comment on above: Performed By: #### I NSULIN #### [facility] [address] [place] [address] Dr. Saray Sozua IRONon 02-13-2023 Iron [Mass/Vol] 130.0 ug/dL Normal 50.0-170.0 [facility] Comment on above: Performed By: #### C BCMAN #### [facility] [address] [place] [address] Dr. Saray Souza PROF 14(COMP METB)on 023 Albumin [Mass/Vol] 3.8 g/dL Normal 3.4-5.0 [facility] Comment on above: Performed By: #### I NSULIN #### [facility] [address] [place] [address] Dr. Saray Souza Albumin/Globulin [Mass ratio] 1.2 {ratio} Normal [facility] Comment on above: Performed By: #### I NSULIN #### [facility] [address] [place] [address] Dr. Saray Souza ALP [Catalytic activity/Vol] 82 U/L Normal 46-116 [facility] Comment on above: Performed By: #### I NSULIN #### [facility] [address] [place] [address] Dr. Saray Souza ALT [Catalytic activity/Vol] 25 U/L Normal 14-59 [facility] Comment on above: Performed By: #### I NSULIN #### [facility] [address] [address] [address] Saray Souza Anion gap [Moles/Vol] 12.7 mmol/L Normal [facility] Comment on above: Performed By: #### I NSULIN #### [facility] [address] [address] [address] Saray Souza AST [Catalytic activity/Vol] 19 U/L Normal 15-37 [facility] Comment on above: Performed By: #### I NSULIN #### [facility] [address] [place] [address] Dr. Saray Souza Bilirubin [Mass/Vol] 0.3 mg/dL Normal 0.2-1.0 [facility] Comment on above: Performed By: #### I NSULIN #### [facility] [address] [place] [address] Dr. Saray Souza Calcium [Mass/Vol] 8.8 mg/dL Normal 8.5-10.1 [facility] Comment on above: Performed By: #### I NSULIN #### [facility] [address] [place] [address] Dr. Saray Souza Chloride [Moles/Vol] 101 mmol/L Normal 98-107 [facility] Comment on above: Performed By: #### I NSULIN #### [facility] [address] [place] [address] Dr. Saray Souza CO2 [Moles/Vol] 27.3 mmol/L Normal 21.0-32.0 [facility] Comment on above: Performed By: #### I NSULIN #### [facility] [address] [place] [address] Dr. Saray Souza Creatinine [Mass/Vol] 0.69 mg/dL Normal 0.55-1.02 [facility] Comment on above: Performed By: #### I NSULIN #### [facility] [address] [place] [address] Dr. Saray Souza EGFR-AF TANZANIAN >60 Normal >=60 [facility] Comment on above: Performed By: #### I NSULIN #### [facility] [address] [address] [address] Saray Souza EGFR-NON AF TANZANIAN >60 Normal >=60 [facility] Comment on above: Performed By: #### I NSULIN #### [facility] [address] [address] [address] Saray Souza Globulin (S) [Mass/Vol] 3.3 g/dL Normal [facility] Comment on above: Performed By: #### I NSULIN #### [facility] [address] [address] [address] Saray Souza Glucose [Mass/Vol] 83 mg/dL Normal 74-106 [facility] Comment on above: Performed By: #### I NSULIN #### [facility] [address] [place] [address] Dr. Saray Souza Potassium [Moles/Vol] 4.0 mmol/L Normal 3.5-5.1 [facility] Comment on above: Performed By: #### I NSULIN #### [facility] [address] [address] [address] Saray Souza Protein [Mass/Vol] 7.1 g/dL Normal 6.4-8.2 [facility] Comment on above: Performed By: #### I NSULIN #### [facility] [address] [address] [address] Saray Souza Sodium [Moles/Vol] 137 mmol/L Normal 136-145 [facility] Comment on above: Performed By: #### I NSULIN #### [facility] [address] [address] [address] Saray Souza Urea nitrogen [Mass/Vol] 10.0 mg/dL Normal 7.0-18.0 [facility] Comment on above: Performed By: #### I NSULIN #### [facility] [address] [address] [address] Saray Souza Urea nitrogen/Creatinine [Mass ratio] 14.5 mg/mg Normal [facility] Comment on above: Performed By: #### I NSULIN #### [facility] [address] [place] [address] Dr. Saray Souza TSHon 02-13-2023 TSH 2.745 uIU/mL Normal 0.358-3.740 [facility] Comment on above: Performed By: #### I NSULIN #### [facility] [address] [place] [address] Dr. Saray Souza AMYLASEon 02-04-2023 Amylase [Catalytic activity/Vol] 45 U/L Normal 25-115 [facility] Comment on above: Performed By: #### T SH, CMP, HSTROPN, LIPA, LINDA #### [facility] [address] [place] [address] Dr. Saray Souza CBC AUTO DIFFon 02-04-2023 BASO # 0.0 103/ul Normal 0.0-0.1 [facility] Comment on above: Performed By: #### C BC #### [facility] [address] [place] [address] Dr. Saray Souza Basophils/100 WBC (Bld) 0.4 % Normal 0.2-2.0 [facility] Comment on above: Performed By: #### C BC #### [facility] [address] [place] [address] Dr. Saray Souza EO # 0.1 103/ul Normal 0.0-0.7 [facility] Comment on above: Performed By: #### C BC #### [facility] [address] [place] [address] Dr. Saray Souza Eosinophils/100 WBC (Bld) 1.7 % Normal 0.9-7.0 [facility] Comment on above: Performed By: #### C BC #### [facility] [address] [place] [address] Dr. Saray Souza Erythrocyte distribution width (RBC) [Ratio] 12.0 % Normal 11.0-15.0 [facility] Comment on above: Performed By: #### C BC #### [facility] [address] [place] [address] Dr. Saray Souza Hematocrit (Bld) [Volume fraction] 42.3 % Normal 36.0-48.0 [facility] Comment on above: Performed By: #### C BC #### [facility] [address] [place] [address] Dr. Saray Souza Hemoglobin (Bld) [Mass/Vol] 13.9 g/dL Normal 12.0-16.0 [facility] Comment on above: Performed By: #### C BC #### [facility] [address] [place] [address] Dr. Saray Souza IG # 0.03 10e3/ul Normal 0.00-0.03 [facility] Comment on above: Performed By: #### C BC #### [facility] [address] [place] [address] Dr. Saray Souza IG % 0.4 % Normal 0.0-0.5 [facility] Comment on above: Performed By: #### C BC #### [facility] [address] [place] [address] Dr. Saray Souza LYMPH # 1.5 103/ul Normal 1.2-3.8 [facility] Comment on above: Performed By: #### C BC #### [facility] [address] [place] [address] Dr. Saray Souza Lymphocytes/100 WBC (Bld) 20.4 % Critically low 20.5-60.0 [facility] Comment on above: Performed By: #### C BC #### [facility] [address] [place] [address] Dr. Saray Souza MANUAL DIFF REQ NO Normal [facility] Comment on above: Performed By: #### C BC #### [facility] [address] [place] [address] Dr. Saray Souza MCH (RBC) [Entitic mass] 30.0 pg Normal 26.7-34.0 [facility] Comment on above: Performed By: #### C BC #### [facility] [address] [place] [address] Dr. Saray Souza MCHC (RBC) [Mass/Vol] 32.9 g/dL Normal 29.9-35.2 [facility] Comment on above: Performed By: #### C BC #### [facility] [address] [address] [address] Saray Souza MCV (RBC) [Entitic vol] 91.2 fL Normal 81.0-99.0 [facility] Comment on above: Performed By: #### C BC #### [facility] [address] [address] [address] Saray Souza MONO # 0.6 103/ul Normal 0.3-0.8 [facility] Comment on above: Performed By: #### C BC #### [facility] [address] [place] [address] Dr. Saray Souza Monocytes/100 WBC (Bld) 7.7 % Normal 1.7-12.0 [facility] Comment on above: Performed By: #### C BC #### [facility] [address] [place] [address] Dr. Saray Souza NEUT # 5.2 103/ul Normal 1.4-6.5 [facility] Comment on above: Performed By: #### C BC #### [facility] [address] [place] [address] Dr. Saray Souza Neutrophils/100 WBC (Bld) 69.4 % Normal 43.0-75.0 [facility] Comment on above: Performed By: #### C BC #### [facility] [address] [address] [address] Saray Souza Platelet mean volume (Bld) [Entitic vol] 9.0 fL Critically low 9.5-13.5 [facility] Comment on above: Performed By: #### C BC #### [facility] [address] [place] [address] Dr. Saray Souza PLT 292 103/ul Normal 150-450 [facility] Comment on above: Performed By: #### C BC #### [facility] [address] [place] [address] Dr. Saray Souza RBC 4.64 106/ul Normal 4.20-5.40 [facility] Comment on above: Performed By: #### C BC #### [facility] [address] [place] [address] Dr. Saray Souza WBC 7.5 103/ul Normal 4.0-11.0 [facility] Comment on above: Performed By: #### C BC #### [facility] [address] [place] [address] Dr. Saray Souza CULTURE URINEon 02-04-2023 CULTURE URINE Culture Observations : LIGHT GROWTH OF MIXED GENITAL CARMELO. NO POTENTIAL PATHOGENS SEEN. Normal [facility] Comment on above: Performed By: #### C BC #### [facility] [address] [place] [address] Dr. Saray Souza ER URINE PROFILEon 3 Bilirubin Ql (U) Negative Normal NEGATIVE [facility] Comment on above: Performed By: #### C BC #### [facility] [address] [place] [address] Dr. Saray Souza Clarity (U) CLEAR Normal CLEAR [facility] Comment on above: Performed By: #### C BC #### [facility] [address] [place] [address] Dr. Saray Souza Color (U) LT. YELLOW Normal YELLOW [facility] Comment on above: Performed By: #### C BC #### [facility] [address] [place] [address] Dr. Saray Souza ERUHumera A micrscopic examination will be performed if indicated. Normal [facility] Comment on above: Performed By: #### C BC #### [facility] [address] [place] [address] Dr. Saray Souza Glucose Ql (U) Negative Normal NEGATIVE [facility] Comment on above: Performed By: #### C BC #### [facility] [address] [place] [address] Dr. Saray Souza Hemoglobin Ql (U) Negative Normal NEGATIVE [facility] Comment on above: Performed By: #### C BC #### [facility] [address] [place] [address] Dr. Saray Souza Ketones Ql (U) Negative Normal NEGATIVE [facility] Comment on above: Performed By: #### C BC #### [facility] [address] [place] [address] Dr. Saray Souza LEUKOCYTES MODERATE Abnormal NEGATIVE [facility] Comment on above: Performed By: #### C BC #### [facility] [address] [place] [address] Dr. Saray Souza Nitrite Ql (U) Negative Normal NEGATIVE [facility] Comment on above: Performed By: #### C BC #### [facility] [address] [place] [address] Dr. Saray Souza pH (U) 5.5 [pH] Normal 5-9 [facility] Comment on above: Performed By: #### C BC #### [facility] [address] [place] [address] Dr. Saray Souza SPEC GRAVITY >=1.030 Abnormal 1.005-<=1.025 [facility] Comment on above: Performed By: #### C BC #### [facility] [address] [place] [address] Dr. Saray Souza UA PROTEIN Negative Normal NEGATIVE/ TRACE [facility] Comment on above: Performed By: #### C BC #### [facility] [address] [place] [address] Dr. Saray Souza UR MICRO IND INDICATED Normal [facility] Comment on above: Performed By: #### C BC #### [facility] [address] [place] [address] Dr. Saray Souza Urobilinogen Qn (U) 0.2 {Janine'U}/dL Normal 0.2 - 1. 0 [facility] Comment on above: Performed By: #### C BC #### [facility] [address] [place] [address] Dr. Saray Souza LIPASEon 02-04-2023 Lipase [Catalytic activity/Vol] 97.0 U/L Normal 73.0-393.0 [facility] Comment on above: Performed By: #### T SH, CMP, HSTROPN, LIPA, LINDA #### [facility] [address] [place] [address] Dr. Saray Souza URon 02-04-2023 , QUAL Negative Normal NEGATIVE [facility] Comment on above: Performed By: #### C BC #### [facility] [address] [place] [address] Dr. Saray Souza PROF 14(COMP METB)on 023 Albumin [Mass/Vol] 3.5 g/dL Normal 3.4-5.0 [facility] Comment on above: Performed By: #### T SH, CMP, HSTROPN, LIPA, LINDA #### [facility] [address] [place] [address] Dr. Saray Souza Albumin/Globulin [Mass ratio] 1.2 {ratio} Normal [facility] Comment on above: Performed By: #### T SH, CMP, HSTROPN, LIPA, LINDA #### [facility] [address] [place] [address] Dr. Saray Souza ALP [Catalytic activity/Vol] 78 U/L Normal 46-116 [facility] Comment on above: Performed By: #### T SH, CMP, HSTROPN, LIPA, LINDA #### [facility] [address] [place] [address] Dr. Saray Souza ALT [Catalytic activity/Vol] 24 U/L Normal 14-59 [facility] Comment on above: Performed By: #### T SH, CMP, HSTROPN, LIPA, LINDA #### [facility] [address] [place] [address] Dr. Saray Souza Anion gap [Moles/Vol] 7.9 mmol/L Normal [facility] Comment on above: Performed By: #### T SH, CMP, HSTROPN, LIPA, LINDA #### [facility] [address] [place] [address] Dr. Saray Souza AST [Catalytic activity/Vol] 16 U/L Normal 15-37 [facility] Comment on above: Performed By: #### T SH, CMP, HSTROPN, LIPA, LINDA #### [facility] [address] [place] [address] Dr. Saray Souza Bilirubin [Mass/Vol] 0.3 mg/dL Normal 0.2-1.0 [facility] Comment on above: Performed By: #### T SH, CMP, HSTROPN, LIPA, LINDA #### [facility] [address] [place] [address] Dr. Saray Souza Calcium [Mass/Vol] 8.6 mg/dL Normal 8.5-10.1 [facility] Comment on above: Performed By: #### T SH, CMP, HSTROPN, LIPA, LINDA #### [facility] [address] [place] [address] Dr. Saray Souza Chloride [Moles/Vol] 105 mmol/L Normal 98-107 [facility] Comment on above: Performed By: #### T SH, CMP, HSTROPN, LIPA, LINDA #### [facility] [address] [place] [address] Dr. Saray Souza CO2 [Moles/Vol] 28.9 mmol/L Normal 21.0-32.0 [facility] Comment on above: Performed By: #### T SH, CMP, HSTROPN, LIPA, LINDA #### [facility] [address] [place] [address] Dr. Saray Souza Creatinine [Mass/Vol] 0.67 mg/dL Normal 0.55-1.02 [facility] Comment on above: Performed By: #### T SH, CMP, HSTROPN, LIPA, LINDA #### [facility] [address] [place] [address] Dr. Saray Souza EGFR-AF TANZANIAN >60 Normal >=60 [facility] Comment on above: Performed By: #### T SH, CMP, HSTROPN, LIPA, LINDA #### [facility] [address] [place] [address] Dr. Saray Souza EGFR-NON AF TANZANIAN >60 Normal >=60 [facility] Comment on above: Performed By: #### T SH, CMP, HSTROPN, LIPA, LINDA #### [facility] [address] [address] [address] Saray Souza Globulin (S) [Mass/Vol] 3.0 g/dL Normal [facility] Comment on above: Performed By: #### T SH, CMP, HSTROPN, LIPA, LINDA #### [facility] [address] [place] [address] Dr. Saray Souza Glucose [Mass/Vol] 97 mg/dL Normal 74-106 [facility] Comment on above: Performed By: #### T SH, CMP, HSTROPN, LIPA, LINDA #### [facility] [address] [address] [address] Saray Souza Potassium [Moles/Vol] 3.8 mmol/L Normal 3.5-5.1 [facility] Comment on above: Performed By: #### T SH, CMP, HSTROPN, LIPA, LINDA #### [facility] [address] [place] [address] Dr. Saray Souza Protein [Mass/Vol] 6.5 g/dL Normal 6.4-8.2 [facility] Comment on above: Performed By: #### T SH, CMP, HSTROPN, LIPA, LINDA #### [facility] [address] [place] [address] Dr. Saray Souza Sodium [Moles/Vol] 138 mmol/L Normal 136-145 [facility] Comment on above: Performed By: #### T SH, CMP, HSTROPN, LIPA, LINDA #### [facility] [address] [place] [address] Dr. Saray oSuza Urea nitrogen [Mass/Vol] 13.0 mg/dL Normal 7.0-18.0 [facility] Comment on above: Performed By: #### T SH, CMP, HSTROPN, LIPA, LINDA #### [facility] [address] [place] [address] Dr. Saray Souza Urea nitrogen/Creatinine [Mass ratio] 19.4 mg/mg Normal [facility] Comment on above: Performed By: #### T SH, CMP, HSTROPN, LIPA, LINDA #### [facility] [address] [place] [address] Dr. Saray Souza TROPONIN, HIGH SENSITIVITYon 02-04-2023 HSTROP 4.0 pg/mL Normal 4.0-51.3 [facility] Comment on above: Result Comment: CUT- OFF POINTS HAVE BEEN ESTABLISHED BASED ON THE FOURTH UNIVERSAL DEFINITIONS OF MYOCARDIAL INFARCTION. THE UPPER REFERENCE LIMIT (URL) OF TROPONIN, DEFINED THE 99TH PERCENTILE OF cTnI DISTRIBUTION IN A REFERENCE POPULATION, HAS BEEN CONFIRMED THE DECISION THRESHOLD FOR [place] DIAGNOSIS. Performed By: #### T SH, CMP, HSTROPN, LIPA, LINDA #### [facility] [address] [place] [address] Dr. Saray Souza TSHon 02-04-2023 TSH 2.478 uIU/mL Normal 0.358-3.740 [facility] Comment on above: Performed By: #### T SH, CMP, HSTROPN, LIPA, LINDA #### [facility] [address] [place] [address] Dr. Saray Souza URINE MICROSCOPIC ONLYon BACTERIA MODERATE Abnormal NONE SEEN [facility] Comment on above: Performed By: #### C BC #### [facility] [address] [place] [address] Dr. Saray Souza Bacteria identified Cx Nom (U) INDICATED Normal [facility] Comment on above: Performed By: #### C BC #### [facility] [address] [place] [address] Dr. Saray Souza CAST NONE SEEN Normal NONE SEEN [facility] Comment on above: Performed By: #### C BC #### [facility] [address] [place] [address] Dr. Saray Souza Crystals LM Nom (Urine sed) NONE SEEN Normal NONE SEEN [facility] Comment on above: Performed By: #### C BC #### [facility] [address] [place] [address] Dr. Saray Souza Epithelial cells LM Ql (Urine sed) MODERATE Abnormal NONE SEEN /RARE [facility] Comment on above: Performed By: #### C BC #### [facility] [address] [place] [address] Dr. Saray Souza MUCOUS NONE SEEN Normal NONE SEEN [facility] Comment on above: Performed By: #### C BC #### [facility] [address] [place] [address] Dr. Saray Souza RBC 5-10 Abnormal 0-2 [facility] Comment on above: Performed By: #### C BC #### [facility] [address] [place] [address] Dr. Saray Souza WBC 10-20 Abnormal NONE SEEN [facility] Comment on above: Performed By: #### C BC #### [facility] [address] [place] [address] Dr. Saray Souza Covid-19 PCR ([facility])on 09-24 SARS-CoV-2 (COVID-19) RNA DAYDAY+probe Ql (Unsp spec) Not detected Normal NOT DETECTED [facility] Comment on above: Result Comment: When diagnostic [...] for this test is supported by the Communications [employer] Signals Supervisor of Health and Human Service's declaration that [...] used). Performed By: #### C BC #### [facility] [address] [place] [address] Dr. Saray Souza INFLUENZA A AND B AGon 10-20 INFLUANEGH SEE BELOW Normal [facility] Comment on above: Result Comment: Nega tive for Flu A protein angiten. Infection due to Flu A cannot be ruled out. Flu A angiten in the sample may be below the detection limit of the test. Performed By: #### C BC #### [facility] [address] [place] [address] Dr. Saray Souza INFLUBNEGH SEE BELOW Normal [facility] Comment on above: Result Comment: Nega tive for Flu B protein antigen. Infection due to Flu B cannot be ruled out. Flu B antigen in the sample may be below the detection limit of the test. Performed By: #### C BC #### [facility] [address] [place] [address] Dr. Saray Souza INFLUENZA A AG Negative Normal NEGATIVE SEE COMMENT [facility] Comment on above: Performed By: #### C BC #### [facility] [address] [place] [address] Dr. Saray Souza INFLUENZA B AG Negative Normal NEGATIVE SEE COMMENT [facility] Comment on above: Performed By: #### C BC #### [facility] [address] [place] [address] Dr. Saray Souza INTERNAL CONTROLS Within Normal Limits Normal Wi thin Normal Limits [facility] Comment on above: Performed By: #### C BC #### [facility] [address] [place] [address] Dr. Saray Souza STREPT SCREENon 10-20-2022 STREP SCREEN A Positive Abnormal NEGATIVE [facility] Comment on above: Performed By: #### C BC #### [facility] [address] [place] [address] Dr. Saray Souza XR SHOULDER RT INJon [...] by: ADRIANA MENDEZ Date: 2022-07-18 17:05 Normal [facility] MRI SHOULDER RT WO CONon MRI [...] by: ADRIANA MENDEZ Date: 2022-07-10 10:10 Normal [facility] XR ARTHRO SHLD RTon 07-10-20 XR [...] by: ADRIANA MENDEZ Date: 2022-07-10 10:01 Normal [facility] No Panel Informationon 03-18 Right Eye Reliability was good. Findings include normal observations. Left Eye Reliability was good. Findings include normal observations. Notes I personally reviewed the visual zaldivar performed by this patient on 03/18/22. The visual zaldivar are normal OU with good fixation. Francisco Ayers MD [facility] Radiology Study observation (narrative) [facility] Progress Noteson 03-18-2022 Shipping Clerk/Admin Authentication Interface Message Text Referred by Retina [...] Hair) regarding headaches-- will fax information to [phone] - Offered referral to neurology, patient prefers [...] her PCP. Francisco Ayers MD Normal [facility] Cytologyon 12-20-2018 Cytology (NOTE) [id number] [facility] ANATOMIC PATHOLOGY [address] [place] [id number] GYNECOLOGIC CYTOLOGY REPORT Patient Name: ROSALIE FREEMAN V. MR#: [id number] Specimen #[id number] Source: 1: Cervical material, (ThinPrep vial, Imaging-assisted review) Clinical History Z01.419 Routine hiv prevention specialist exam without abnormal findings High Risk HPV DNA testing is requested if the diagnosis is ASC-US LMP: implant INTERPRETATION Cervical material, (ThinPrep vial, Imaging-assisted review): Specimen Adequacy: Satisfactory for evaluation. - Endocervical/transform ation zone component present. - Scant cellularity; predominantly blood. Descriptive Diagnosis: Negative for intraepithelial lesion or malignancy. Heavy Cleaner: KANCHAN Mendoza(ASCP) Electronically Signed Out donna/01/03/2019 Normal [facility] Comment on above: Performed By: #### P PPVP #### [facility] [address] [place] [id number] Rotary Drill Operator Helper: Vega Wilkerson MD Vital Signs Date Time Vital Sign Value Performing Clinician Facility 12-02-2023 08:40-0500 Body height 180.34 cm Taniya [facility] Other [facility] 12-02-2023 08:40-0500 Body mass index (BMI) [Ratio] 45.1 kg/m2 Taniya [facility] Other [facility] 12-02-2023 08:40-0500 Body temperature 97.5 [degF] Taniya [facility] Other [facility] Other 12-02-2023 08:40-0500 Body weight 146.69 kg Taniya [facility] Other [facility] Other 12-02-2023 08:40-0500 Diastolic blood pressure 83 mm[Hg] Taniya [facility] Other [facility] Other 12-02-2023 08:40-0500 Respiratory rate 18 /min Taniya [facility] Other [facility] Other 12-02-2023 08:40-0500 SaO2% (BldA) [Mass fraction] 98 % Taniya [facility] Other [facility] Other 12-02-2023 08:40-0500 Systolic blood pressure 136 mm[Hg] Taniya [facility] Other [facility] Other 11-19-2021 15:30-0500 Body height 180.34 cm Nandini Pantoja Other [facility] Other 11-19-2021 15:30-0500 Body mass index (BMI) [Ratio] 41.56 kg/m2 Nandini Pantoja Other [facility] Other 11-19-2021 15:30-0500 Body weight 135.17 kg Nandini Pantoja Other [facility] Other 11-19-2021 15:30-0500 Diastolic blood pressure 76 mm[Hg] Nandini Pantoja Other [facility] Other 11-19-2021 15:30-0500 Systolic blood pressure 128 mm[Hg] Nandini Pantoja Other [facility] Other Encounters Encounter Date Encounter Type Care Provider Facility Start: 12-31-2023 ambulatory Facility:[facility] Start: 12-07-2023 End: 12-07-2023 ambulatory Taniya [facility] Other [facility] Start: 12-07-2023 Telephone encounter Taniya [facility] Start: 12-02-2023 End: 12-02-2023 ambulatory Taniya [facility] Other [facility] Other Start: 12-02-2023 Office outpatient ne w 30 minutes Taniya [facility] Start: 04-17-2023 End: 04-17-2023 ambulatory SALMA MONET . Facility:[facility] Start: 04-06-2023 End: 04-07-[address] MELODIE HARGROVE . Facility:[facility] Start: 04-04-2023 Encounter for genera l adult medical examination without abnormal findings DR MELODIE HARGROVE . [facility] Start: 04-03-2023 End: 04-04-[address] MELODIE [...] Start: 03-18-2022 End: 03-18-2022 ambulatory UNKNOWN PROVIDER [facility] Start: 11-19-2021 End: 11-19-2021 ambulatory Nandini Pantoja Other [facility] Other Start: 11-19-2021 Office outpatient ne w 30 minutes Nandini Pantoja [facility] Start: 12-20-2018 End: 12-21-2018 Patient encounter procedure ANDRESSA ESCALANTE [facility] Procedures Date Procedure Procedure Detail [...] malign ant neoplasm [facility] cervix [facility] 2011 [facility] C [facility] Start: 2011 Tetanus + diphtheria + acellular pertussis vaccine (product) [facility] Start: 2008 HIV screening HIV Test [facility] Start: 1998 COVID-19 Vaccine (1) COVID-19 Vaccin e (1) [facility] Immunizations Immunization Date Immunization Notes Care Provider Marino lopez 03-21-2014 influenza virus vacc ine, unspecified formulation Estella Guerrero MD Work Phone: [facility] Payers Date Payer Category Payer Unknown [facility] [employer] [id number] 2017-Present [id number] 1993 Unknown [id number] 1993 Unknown [id number] 1993 Unknown [id number] 1993 Unknown [id number] 1993 Unknown [id number] 1993 Unknown [id number] 1993 Unknown [id number] 1993 Unknown [id number] 1993 Unknown [id number] 1993 Unknown [id number] 1993 Unknown [id number] 1993 Unknown [id number] [id number] 1993 Unknown [id number] [id number] 1993 Unknown [id number] 1959 Unknown [id number] Social History Date Type Detail Facility Tobacco smoking status NHIS Tobacco smoking consumption unknown [facility] Start: 1995 [facility] Sex Assigned At [facility] Evaluation note 12-02-2023 Note Date & Type Note Facility [...] her to avoid NSAIDs or any other [id number] medication or high-protein supplements Nov, Renal lesion (ICD-10 - N28.9) She had a renal lesion of indeterminate nature on the renal ultrasound. She is ordered to have a CAT scan with contrast by the PCP. Will follow the report once done. Nov, IBS (irritable bowel syndrome) (ICD-10 - K58.9) Continue to follow with PCP for IBS management. [facility] Clinical Note 05-13-2022 Note Date & Type Note Facility 05-13-2022 Note PROCEDURE: XR SHOULD ER RT 2V or > COMPARISON: None. HISTORY: Pain of right shoulder joint FINDINGS: BONES:No fracture, acute abnormality, or significant arthropathy. SOFT TISSUES:Negative. No visible soft tissue swelling. EFFUSION:None visible. OTHER: Negative. IMPRESSION: Normal examination. Electronically authenticated by: NANDINI MAYER Date: 2022-05-13 08:41 [facility] History of Present illness Narrative 03-18-2022 Francisco [...] edema - F/u with PCP (Melodie Hargrove [place]) regarding headaches-- will fax information to [phone] - Offered referral to neurology, patient prefers [...] Francisco Ayers MD documented in this encounter [facility] History of Present illness Narrative [...] Hair) regarding headaches-- will fax information to [phone] - Offered referral to neurology, patient prefers [...] Francisco Ayers [facility] Note Date & Type Note Facility Evaluation note Diagnosis Chronic nonintractable headache, unspecified headache type- Primary documented in this encounter [facility] Evaluation note Note Date & Type Note Facility Evaluation note Diagnosis Chronic nonintractable headache, unspecified headache type- Primary documented in this encounter [facility] Evaluation note Note Date & Type Note Facility Evaluation note [facility] Other Evaluation note Note Date & Type Note Facility Evaluation note No Information [facility] Other History general Narrative - Reported Note Date & Type Note Facility History general Narrative - Reported [facility] Other History general Narrative - Reported Note Date & Type Note Facility History general Narrative - Reported Type Medical History irritable bowel syndrome Medical History depression Medical History PROTEINURIA, UNSPECIFIED Medical History HYPOGLYCEMIA Medical History ARTHRALGIA Medical History SHINGLES Medical History ADHD Surgical History ovary removed 2014 Surgical History cholecystectomy Surgical History bilateral fasciitis repair Surgical History bilateral bone spur removal Hospitalization History 1 child [facility] Summary Purpose Family History No Family History Records FoundNo Family History Records FoundNo Family History Records FoundNo Family History Records Found Advance Directives No Advanced Directives Records FoundNo Advanced Directives Records FoundNo Advanced Directives Records FoundNo Advanced Directives Records Found Additional Source Comments INFORMATION SOURCE (unrecogn ized section and content) DATE CREATED AUTHOR 08/31/2019 [facility] DATE CREATED AUTHOR AUTHOR'S ORGANIZ ATION 03/20/2022 [facility] DATE CREATED AUTHOR AUTHOR'S ORGANIZ ATION 04/18/2023 [facility] DATE CREATED AUTHOR AUTHOR'S ORGANBASIL ATION 01/01/2024 [facility] Reason for Visit (unrecogniz ed section and [...] BE BASED ON THE PRIMARY CLINICAL RECORDS. [facility]. provides no warranty or guarantee of the accuracy or completeness of information in this document.
== END 2024-01-01 13:52 | disposition home or self-care (01) ==
LOC: US 13:51
PROVIDERS: PCP Family Medicine; Visit Provider Family Medicine
DX: N39.0 Urinary tract infection, site not specified (principal)
CPT/HCPCS: 76770

== ENCOUNTER 2024-01-28 09:02 | Outpatient (OUT) | payer OTHER, SELFPAY ==
--- OUTSIDE RECORDS SUMMARY | 2024-01-28 09:06 | XMS_ITS | CCD ---
Author Name Unknown Address [address] [facility] [address] [place] [id number] Organization [facility] Care Team Providers Care Button Breaker Name Role Phone ANDRESSA ESCALANTE Referring Unavailable [...] Unavailable HOY ., DR SEWELL Admkaty Unavailable WAGONER, DR NANDINI Stafford Consulting Unavailable HOY ., DR SEWELL Consulting Unavailable HOY ., DR SEWELL Primary Care Unavailable HOY ., DR SEWELL Attending Unavailable HOY ., DR SEWELL Admitting Unavailable HOY ., DR SEWELL Consulting Unavailable HOY ., DR SEWELL Primary Care Unavailable HOY ., DR SEWELL Attending Unavailable HOY ., DR SEWELL Admitting Unavailable WAGONER, DR NANDINI Stafford Consulting Unavailable HOY ., DR SEWELL Primary Care Unavailable HOY ., DR SEWELL Attending Unavailable HOY ., DR SEWELL Admitting Unavailable JETHRO GRIFFITH Consulting Unavailable JETHRO GRIFFITH Attending Unavailable JETHRO GRIFFITH Admitting Unavailable POLI Dobbins, DR SEWELL Primary Care Unavailable ELLIS TOLEDO Consulting Unavailable ELLIS TOLEDO Attending Unavailable ELLIS TOLEDO Admitting Unavailable POLI ., DR SEWELL Primary Care Unavailable Taniya Brody Unavailable ELÍAS HOPSON Attending Unavailable Melodie Hargrove Referring Unavailable Melodie Hargrove Primary Care Physician [phone] Allergies Allergy Classification Reported Allergen(s) Allergy Type Date of Onset Reaction(s) Facility (1 source) [facility]; Translations: [[facility]] Propensity to adverse reactions (disorder) 0 [facility] Repository (3 sources) [facility] Drug allergy [facility] Other (1 source) No Known Medication Allergies; Translations: [No Known Medication Allergies] Propensity to adverse reactions (disorder) [facility] Repository Medications Current Medications Medication Drug Class(es) [...] guanFACINE 3 mg extended release oral tablet (5 sources) Central alpha-2 Adrenergic Agonist Start: 01-19-2024 guanfacine 3 mg oral tablet, extended release Refills(s) 0 Start Date: 01/19/24 Status: Ordered take 1 tablet by mouth once tyrell y guanFACINE HCl ER 3 MG TAKE 1 TABLET BY MOUTH EVERY DAY Oral for 30 Days Active meloxicam 15 mg oral tablet (5 sources) Nonsteroidal Anti-inflammatory Drug Start: 02-23-2024 meloxicam 15 mg T ab 0 Refill(s), Refills(s) 0 Start Date: 01/15/24 Status: Ordered take 1 tablet by joesph every twenty-four hours Meloxicam 15 MG 1 tablet Orally Once a day Active ondansetron 4 mg oral tablet (2 sources) Serotonin-3 Receptor Antagonist Start: 09-19-2021 take 1 tablet by mouth every six hours ondansetron 4 mg Tab 4 mg = 1 tab(s), Oral, q6hr, Refills(s) 0 Start Date: 09/19/21 Status: Ordered sertraline 100 mg oral tablet (6 sources) Serotonin Reuptake Inhibitor Start: 09-19-2021 take 1 tablet by mouth once daily Zoloft 100 mg Tab 100 mg = 1 tab(s), Oral, Daily, Refills(s) 0 Start Date: 09/19/21 Status: Ordered sulfamethoxazole 400 mg / trimethoprim 80 mg oral tablet (2 sources) Dihydrofolate Reductase Inhibitor Antibacterial, Sulfonamide Antimicrobial Start: 01-19-2024 Bactrim 400 mg-80 mg Tab 1 tab(s), Oral, Daily UTI prevention, 30 tab(s), Refill(s) 3, [id number], 180, cm, 01/19/24 9:37:00 EST, Height/Length Dosing, 145.5, kg, 01/19/24 9:37:00 EST, Weight Dosing Start Date: 01/19/24 Status: Ordered Completed/Discontinued Medications Medication Drug Class(es) Dates Sig (Normalized) Sig (Original) cephalexin 500 mg oral capsule (2 sources) Cephalosporin Antibacterial Start: 01-19-2024 Keflex 500 mg Cap 500 mg = 1 cap(s), Oral, As Directed, Pt to take 1 tab the day before procedure and the 2nd tab the day of procedure once completed., # 2 cap(s), Refills(s) 0, Pharmacy: [facility]/pharm[facility] #[id number], 180, cm, 01/19/24 9:37:00 EST, Height/Length Dosing, 145.5, kg, 01/19/24 9:37:00 EST, Weight Dosing Start Date: 01/19/24 Status: Ordered levonorgestrel 0.360329 mg/hr intrauterine system (2 sources) Progestin, Progestin-containin g Intrauterine Device Start: 09-19-2021 Mirena 52 mg intrauteral device 52 mg = 1 EA, IntraUteral, Once Start Date: 09/19/21 Status: Ordered Problems Active Problems Problem Classification Problem Date Documented Da te Episodic/Chronic Abdominal pain (4 sources) Epigastric pain; Translations: [Right upper quadrant pain] 09-20-2021 Episodic Anxiety disorders (2 sources) Anxiety 09-20-2021 Chronic Biliary tract disease (2 sources) Chronic cholecystitis with calculus 09-30-2021 Episodic Conditions associated with dizziness or vertigo (4 sources) Dizziness and giddiness; Translations: [DIZZINESS AND GIDDINESS] Onset: 3 Episodic Esophageal disorders (9 sources) Gastroesophageal reflux disease; Translations: [Gastro-esophageal reflux disease without esophagitis] Onset: 1 Resolved: 1 Chronic Fluid and electrolyte disorders (1 source) Hypokalemia Episodic Genitourinary symptoms and ill-defined conditions (2 sources) Proteinuria, unspecified Episodic Headache; including migraine (2 sources) Headache; Translations: [Chronic nonintractable headache, unspecified headache type] Episodic Mood disorders (2 sources) Mood disorder 09-19-2021 Chronic Nausea and vomiting (1 source) Nausea; Translations: [NAUSEA] Onset: 3 Episodic Other acquired deformities (2 sources) Scoliosis deformity of spine 09-20-2021 Chronic Other aftercare (1 source) Other snf (current) drug therapy; Translations: [[employer] MANA[employer] CURRENT DRUG THERAPY] Onset: 3 Episodic Other diseases of kidney and ureters (2 sources) Disorder of kidney and ureter, unspecified Episodic Other diseases of kidney and ureters (1 source) Disorder of kidney and/or ureter; Translations: [Disorder of kidney and ureter, unspecified] Onset: 4 Episodic Other diseases of kidney and ureters (2 sources) Kidney lesion 01-19-2024 Episodic Other endocrine disorders (4 sources) Other hypoglycemia; Translations: [OTHER HYPOGLYCEMIA] Onset: 3 Chronic Other gastrointestinal disorders (7 sources) Irritable bowel syndrome; Translations: [Irritable bowel syndrome without diarrhea] Onset: 4 Chronic Other gastrointestinal disorders (3 sources) Irritable bowel syndrome without diarrhea Onset: 1 Resolved: 1 Chronic Other nutritional; endocrine; and metabolic disorders (2 sources) Body mass index 40+ - severely obese 09-20-2021 Chronic Other screening for suspected conditions (not mental disorders or infectious disease) (2 sources) Ultrasonography of biliary tract abnormal 09-20-2021 Episodic Other skin disorders (2 sources) Acne vulgaris 09-20-2021 Episodic Residual codes; unclassified (2 sources) Insomnia 09-20-2021 Episodic Unclassified (3 sources) CONTACT W/AND (SUSP) EXPOS COVID-19; Translations: [CONTACT W/AND (SUSP) EXPOS COVID-19] Onset: 2 Unclassified (1 source) COUGH, UNSPECIFIED; Translations: [COUGH, UNSPECIFIED] Onset: 2 Urinary tract infections (8 sources) Urinary tract infection, site not specified; Translations: [Urinary tract infectious disease] Onset: 3 Episodic Past or Other Problems [...] B (Bld) [Mass/Vol] 246.0 pg/mL Normal <=450.0 [facility] Comment on above: Performed By: #### I CURLYULIN #### [facility] [address] [place] [address] Dr. Saray Souza CARDIAC NELI ADMITon 023 CK [Catalytic activity/Vol] 47 U/L Normal 26-192 [facility] Comment on above: Performed By: #### I NSULIN #### [facility] [address] [place] [address] Dr. Saray Souza CK.MB [Mass/Vol] 1.02 ng/mL Normal <=3.60 [facility] Comment on above: Performed By: #### I CURLYULIN #### [facility] [address] [place] [address] Dr. Saray Souza HSTROP 4.5 pg/mL Normal 4.0-51.3 [facility] Comment on above: Result Comment: CUT- OFF POINTS HAVE BEEN ESTABLISHED BASED ON THE FOURTH UNIVERSAL DEFINITIONS OF MYOCARDIAL INFARCTION. THE UPPER REFERENCE LIMIT (URL) OF TROPONIN, DEFINED THE 99TH PERCENTILE OF cTnI DISTRIBUTION IN A REFERENCE POPULATION, HAS BEEN CONFIRMED THE DECISION THRESHOLD FOR [place] DIAGNOSIS. Performed By: #### I CURLYULIN #### [facility] [address] [place] [address] Dr. Saray Souza FRANKLIN 36 ng/mL Normal 9-82 [facility] Comment on above: Performed By: #### I CURLYULIN #### [facility] [address] [place] [address] Dr. Saray Souza CBC W MANUAL DIFFon 04-17-20 23 ATYPICAL LYMPH # Normal [facility] Comment on above: Performed By: #### C EDGARDO #### [facility] [address] [place] [address] Dr. Saray Souza ATYPICAL LYMPH % Normal [facility] Comment on above: Performed By: #### C EDGARDO #### [facility] [address] [place] [address] Dr. Saray Souza BAND # 0.3 103/ul Normal 0.0-0.3 [facility] Comment on above: Performed By: #### C BCMAN #### [facility] [address] [place] [address] Dr. Saray Souza BAND % 1 % Normal 0-5 [facility] Comment on above: Performed By: #### C BCMAN #### [facility] [address] [place] [address] Dr. Saray Souza BASOM # 0.00 103/ul Normal 0.00-0.10 [facility] Comment on above: Performed By: #### C BCPRESLEY #### [facility] [address] [place] [address] Dr. Saray Souza BASOM % 0.0 % Critically low 0.2-2.0 [facility] Comment on above: Performed By: #### C EDGARDO #### [facility] [address] [place] [address] Dr. Saray Souza BLAST # Normal [facility] Comment on above: Performed By: #### C EDGARDO #### [facility] [address] [place] [address] Dr. Saray Souza BLAST % Normal [facility] Comment on above: Performed By: #### C EDGARDO #### [facility] [address] [place] [address] Dr. Saray Souza CORRECTED WBC Normal 4.0-11.0 [facility] Comment on above: Performed By: #### C BCPRESLEY #### [facility] [address] [place] [address] Dr. Saray Souza EOS # 0.00 103/ul Normal 0.00-0.70 [facility] Comment on above: Performed By: #### C BCPRESLEY #### [facility] [address] [place] [address] Dr. Saray Souza EOS% 0.0 % Critically low 0.9-7.0 [facility] Comment on above: Performed By: #### C EDGARDO #### [facility] [address] [place] [address] Dr. Saray Souza HCT 43.6 % Normal 36.0-48.0 [facility] Comment on above: Performed By: #### C BCPRESLEY #### [facility] [address] [place] [address] Dr. Saray Souza HGB 14.7 g/dl Normal 12.0-16.0 [facility] Comment on above: Performed By: #### C BCPRESLEY #### [facility] [address] [place] [address] Dr. Saray Souza LYMPHM # 1.55 103/ul Normal 1.20-3.80 [facility] Comment on above: Performed By: #### C BCPRESLEY #### [facility] [address] [place] [address] Dr. Saray Souza LYMPHM% 6.0 % Critically low 20.5-60.0 [facility] Comment on above: Performed By: #### C EDGARDO #### [facility] [address] [place] [address] Dr. Saray Souza MCH 30.3 pg Normal 26.7-34.0 [facility] Comment on above: Performed By: #### C EDGARDO #### [facility] [address] [place] [address] Dr. Saray Souza MCHC 33.7 g/dl Normal 29.9-35.2 [facility] Comment on above: Performed By: #### C EDGARDO #### [facility] [address] [place] [address] Dr. Saray Souza MCV 89.9 fL Normal 81.0-99.0 [facility] Comment on above: Performed By: #### C BCPRESLEY #### [facility] [address] [place] [address] Dr. Saray Souza METAMYELOCYTE # Normal [facility] Comment on above: Performed By: #### C BCPRESLEY #### [facility] [address] [place] [address] Dr. Saray Souza METAMYELOCYTE % Normal [facility] Comment on above: Performed By: #### C BCPRESLEY #### [facility] [address] [place] [address] Dr. Saray Souza MONOM# 2.06 103/ul Critically high 0.30-0.80 [facility] Comment on above: Performed By: #### C EDGARDO #### [facility] [address] [place] [address] Dr. Saray Souza MONOM% 8.0 % Normal 1.7-12.0 [facility] Comment on above: Performed By: #### C EDGARDO #### [facility] [address] [place] [address] Dr. Saray Souza MPV 8.8 fL Critically low 9.5-13.5 [facility] Comment on above: Performed By: #### C EDGARDO #### [facility] [address] [place] [address] Dr. Saray Souza MYELOCYTE # Normal [facility] Comment on above: Performed By: #### C EDGARDO #### [facility] [address] [place] [address] Dr. Saray Souza MYELOCYTE % Normal [facility] Comment on above: Performed By: #### C EDGARDO #### [facility] [address] [place] [address] Dr. Saray Souza NRBC Normal [facility] Comment on above: Performed By: #### C EDGARDO #### [facility] [address] [place] [address] Dr. Saray Souza PLT 397 103/ul Normal 150-450 [facility] Comment on above: Performed By: #### C EDGARDO #### [facility] [address] [place] [address] Dr. Saray Souza RBC 4.85 106/ul Normal 4.20-5.40 [facility] Comment on above: Performed By: #### C EDGARDO #### [facility] [address] [place] [address] Dr. Saray Souza RDW 12.0 % Normal 11.0-15.0 [facility] Comment on above: Performed By: #### C EDGARDO #### [facility] [address] [place] [address] Dr. Saray Souza SEG # 21.93 103/ul Critically high 1.40-6.50 [facility] Comment on above: Performed By: #### C BCMAN #### [facility] [address] [place] [address] Dr. Saray Souza SEG % 85.0 % Critically high 43.0-75.0 [facility] Comment on above: Performed By: #### C BCMAN #### [facility] [address] [place] [address] Dr. Saray Souza WBC 25.8 103/ul Critically high 4.0-11.0 [facility] Comment on above: Performed By: #### C BCMAN #### [facility] [address] [place] [address] Dr. Saray Souza CULTURE URINEon 04-17-2023 CULTURE URINE Culture Observations : LORENZO TO FOLLOW. Isolate 1 Enterococcus faecalis 20,000 cfu/mL of Normal [facility] Comment on above: Performed By: #### C BC #### [facility] [address] [place] [address] Dr. Saray Souza ER URINE PROFILEon 3 Bilirubin Ql (U) Negative Normal NEGATIVE [facility] Comment on above: Performed By: #### C BC #### [facility] [address] [place] [address] Dr. Saray Souza Clarity (U) CLEAR Normal CLEAR [facility] Comment on above: Performed By: #### C BC #### [facility] [address] [place] [address] Dr. Saray Souza Color (U) LT. YELLOW Normal YELLOW [facility] Comment on above: Performed By: #### C BC #### [facility] [address] [place] [address] Dr. Saray JHA A micrscopic examination will be performed if indicated. Normal [facility] Comment on above: Performed By: #### C BC #### [facility] [address] [place] [address] Dr. Saray Souza Glucose Ql (U) Negative Normal NEGATIVE [facility] Comment on above: Performed By: #### C BC #### [facility] [address] [place] [address] Dr. Saray Souza Hemoglobin Ql (U) Negative Normal NEGATIVE [facility] Comment on above: Performed By: #### C BC #### [facility] [address] [place] [address] Dr. Saray Souza Ketones Ql (U) Negative Normal NEGATIVE [facility] Comment on above: Performed By: #### C BC #### [facility] [address] [place] [address] Dr. Saray Souza LEUKOCYTES SMALL Abnormal NEGATIVE [facility] Comment on above: Performed By: #### C BC #### [facility] [address] [place] [address] Dr. Saray Souza Nitrite Ql (U) Negative Normal NEGATIVE [facility] Comment on above: Performed By: #### C BC #### [facility] [address] [place] [address] Dr. Saray Souza pH (U) 6.5 [pH] Normal 5-9 [facility] Comment on above: Performed By: #### C BC #### [facility] [address] [place] [address] Dr. Saray Souza SPEC GRAVITY 1.025 Normal 1.005-<=1.025 [facility] Comment on above: Performed By: #### C BC #### [facility] [address] [place] [address] Dr. Saray Souza UA PROTEIN Negative Normal NEGATIVE/ TRACE [facility] Comment on above: Performed By: #### C BC #### [facility] [address] [place] [address] Dr. Saray Souza UR MICRO IND INDICATED Normal [facility] Comment on above: Performed By: #### C BC #### [facility] [address] [place] [address] Dr. Saray Souza Urobilinogen Qn (U) 0.2 {Janine'U}/dL Normal 0.2 - 1. 0 [facility] Comment on above: Performed By: #### C BC #### [facility] [address] [address] [address] Saray Souza URon 04-17-2023 , QUAL Negative Normal NEGATIVE [facility] Comment on above: Performed By: #### C BC #### [facility] [address] [address] [address] Saray Souza PROF 14(COMP METB)on 023 Albumin [Mass/Vol] 3.0 g/dL Critically low 3.4-5.0 [facility] Comment on above: Performed By: #### I NSULIN #### [facility] [address] [address] [address] Saray Souza Albumin/Globulin [Mass ratio] 0.9 {ratio} Normal [facility] Comment on above: Performed By: #### I NSULIN #### [facility] [address] [place] [address] Dr. Saray Souza ALP [Catalytic activity/Vol] 54 U/L Normal 46-116 [facility] Comment on above: Performed By: #### I NSULIN #### [facility] [address] [address] [address] Saray Souza ALT [Catalytic activity/Vol] 27 U/L Normal 14-59 [facility] Comment on above: Performed By: #### I NSULIN #### [facility] [address] [address] [address] Saray Souza Anion gap [Moles/Vol] 12.9 mmol/L Normal [facility] Comment on above: Performed By: #### I NSULIN #### [facility] [address] [address] [address] Saray Souza AST [Catalytic activity/Vol] 12 U/L Critically low 15-37 [facility] Comment on above: Performed By: #### I NSULIN #### [facility] [address] [address] [address] Saray Souza Bilirubin [Mass/Vol] 0.3 mg/dL Normal 0.2-1.0 [facility] Comment on above: Performed By: #### I NSULIN #### [facility] [address] [address] [address] Saray Souza Calcium [Mass/Vol] 8.1 mg/dL Critically low 8.5-10.1 Th [facility] Comment on above: Performed By: #### I NSULIN #### [facility] [address] [address] [address] Saray Souza Chloride [Moles/Vol] 102 mmol/L Normal 98-107 [facility] Comment on above: Performed By: #### I NSULIN #### [facility] [address] [place] [address] Dr. Saray Souza CO2 [Moles/Vol] 26.2 mmol/L Normal 21.0-32.0 [facility] Comment on above: Performed By: #### I NSULIN #### [facility] [address] [place] [address] Dr. Saray Souza Creatinine [Mass/Vol] 0.87 mg/dL Normal 0.55-1.02 [facility] Comment on above: Performed By: #### I NSULIN #### [facility] [address] [place] [address] Dr. Saray Souza EGFR-AF CROATIAN >60 Normal >=60 [facility] Comment on above: Performed By: #### I NSULIN #### [facility] [address] [place] [address] Dr. Saray Souza EGFR-NON AF CROATIAN >60 Normal >=60 [facility] Comment on above: Performed By: #### I NSULIN #### [facility] [address] [place] [address] Dr. Saray Souza Globulin (S) [Mass/Vol] 3.2 g/dL Normal [facility] Comment on above: Performed By: #### I NSULIN #### [facility] [address] [place] [address] Dr. Saray Souza Glucose [Mass/Vol] 206 mg/dL Critically high 74-106 [facility] Comment on above: Performed By: #### I NSULIN #### [facility] [address] [place] [address] Dr. Saray Souza Potassium [Moles/Vol] 4.1 mmol/L Normal 3.5-5.1 [facility] Comment on above: Performed By: #### I NSULIN #### [facility] [address] [place] [address] Dr. Saray Souza Protein [Mass/Vol] 6.2 g/dL Critically low 6.4-8.2 Th [facility] Comment on above: Performed By: #### I NSULIN #### [facility] [address] [place] [address] Dr. Saray Souza Sodium [Moles/Vol] 137 mmol/L Normal 136-145 [facility] Comment on above: Performed By: #### I NSULIN #### [facility] [address] [place] [address] Dr. Saray Souza Urea nitrogen [Mass/Vol] 19.0 mg/dL Critically high 7.0-18.0 [facility] Comment on above: Performed By: #### I NSULIN #### [facility] [address] [place] [address] Dr. Saray Souza Urea nitrogen/Creatinine [Mass ratio] 21.8 mg/mg Normal [facility] Comment on above: Performed By: #### I NSULIN #### [facility] [address] [place] [address] Dr. Saray Souza TSHon 04-17-2023 TSH 0.553 uIU/mL Normal 0.358-3.[address] [facility] Comment on above: Performed By: #### I NSULIN #### [facility] [address] [place] [address] Dr. Saray Souza URINE MICROSCOPIC ONLYon BACTERIA TRACE Abnormal NONE SEEN The [facility] Comment on above: Performed By: #### C BC #### [facility] [address] [place] [address] Dr. Saray Souza Bacteria identified Cx Nom (U) INDICATED Normal [facility] Comment on above: Performed By: #### C BC #### [facility] [address] [place] [address] Dr. Saray Souza CAST NONE SEEN Normal NONE SEEN The [facility] Comment on above: Performed By: #### C BC #### [facility] [address] [place] [address] Dr. Saray Souza Crystals LM Nom (Urine sed) NONE SEEN Normal NONE SEEN The [facility] Comment on above: Performed By: #### C BC #### [facility] [address] [place] [address] Dr. Saray Souza Epithelial cells LM Ql (Urine sed) RARE Normal NONE SEEN /RARE The [facility] Comment on above: Performed By: #### C BC #### [facility] [address] [place] [address] Dr. Saray Souza MUCOUS NONE SEEN Normal NONE SEEN The [facility] Comment on above: Performed By: #### C BC #### [facility] [address] [place] [address] Dr. Saray Souza RBC 0-2 Normal 0-2 [facility] Comment on above: Performed By: #### C BC #### [facility] [address] [place] [address] Dr. Saray Souza WBC 5-10 Abnormal NONE SEEN The [facility] Comment on above: Performed By: #### C BC #### [facility] [address] [place] [address] Dr. Saray Souza XR CHEST 2 Von [...] CAROL RAMIREZ Date: 2023-04-17 10:45 Normal [facility] INSULINon 04-07-2023 Insulin 11.3 uIU/mL Normal 2.6-24.9 [facility] Comment on above: Performed By: #### I NSULIN #### [facility] [address] [place] [address] Dr. Saray Souza US KIDNEYS BLADDERon 023 [...] NANDINI MAYER Date: 2023-04-04 08:22 Normal [facility] INSULINon 04-02-2023 Insulin 37.5 uIU/mL Critically high 2.6-24.9 [facility] Comment on above: Performed By: #### I NSULIN #### [facility] [address] [place] [address] Dr. Saray Souza CBC AUTO DIFFon 04-01-2023 BASO # 0.0 103/ul Normal 0.0-0.1 [facility] Comment on above: Performed By: #### C BC #### [facility] [address] [place] [address] Dr. Saray Souza Basophils/100 WBC (Bld) 0.5 % Normal 0.2-2.0 [facility] Comment on above: Performed By: #### C BC #### [facility] [address] [place] [address] Dr. Saray Souza EO # 0.2 103/ul Normal 0.0-0.7 [facility] Comment on above: Performed By: #### C BC #### [facility] [address] [place] [address] Dr. Saray Souza Eosinophils/100 WBC (Bld) 2.3 % Normal 0.9-7.0 [facility] Comment on above: Performed By: #### C BC #### [facility] [address] [place] [address] Dr. Saray Souza Erythrocyte distribution width (RBC) [Ratio] 11.9 % Normal 11.0-15.0 [facility] Comment on above: Performed By: #### C BC #### [facility] [address] [place] [address] Dr. Saray Souza Hematocrit (Bld) [Volume fraction] 42.2 % Normal 36.0-48.0 [facility] Comment on above: Performed By: #### C BC #### [facility] [address] [place] [address] Dr. Saray Souza Hemoglobin (Bld) [Mass/Vol] 13.7 g/dL Normal 12.0-16.0 [facility] Comment on above: Performed By: #### C BC #### [facility] [address] [place] [address] Dr. Saray Souza IG # 0.02 10e3/ul Normal 0.00-0.03 [facility] Comment on above: Performed By: #### C BC #### [facility] [address] [place] [address] Dr. Saray Souza IG % 0.3 % Normal 0.0-0.5 [facility] Comment on above: Performed By: #### C BC #### [facility] [address] [place] [address] Dr. Saray Souza LYMPH # 1.6 103/ul Normal 1.2-3.8 [facility] Comment on above: Performed By: #### C BC #### [facility] [address] [place] [address] Dr. Saray Souza Lymphocytes/100 WBC (Bld) 21.5 % Normal 20.5-60.0 [facility] Comment on above: Performed By: #### C BC #### [facility] [address] [place] [address] Dr. Saray Souza MANUAL DIFF REQ NO Normal [facility] Comment on above: Performed By: #### C BC #### [facility] [address] [place] [address] Dr. Saray Souza MCH (RBC) [Entitic mass] 30.0 pg Normal 26.7-34.0 [facility] Comment on above: Performed By: #### C BC #### [facility] [address] [place] [address] Dr. Saray Souza MCHC (RBC) [Mass/Vol] 32.5 g/dL Normal 29.9-35.2 [facility] Comment on above: Performed By: #### C BC #### [facility] [address] [place] [address] Dr. Saray Souza MCV (RBC) [Entitic vol] 92.5 fL Normal 81.0-99.0 [facility] Comment on above: Performed By: #### C BC #### [facility] [address] [place] [address] Dr. Saray Souza MONO # 0.7 103/ul Normal 0.3-0.8 [facility] Comment on above: Performed By: #### C BC #### [facility] [address] [place] [address] Dr. Saray Souza Monocytes/100 WBC (Bld) 9.6 % Normal 1.7-12.0 [facility] Comment on above: Performed By: #### C BC #### [facility] [address] [place] [address] Dr. Saray Souza NEUT # 5.0 103/ul Normal 1.4-6.5 [facility] Comment on above: Performed By: #### C BC #### [facility] [address] [place] [address] Dr. Saray Souza Neutrophils/100 WBC (Bld) 65.8 % Normal 43.0-75.0 [facility] Comment on above: Performed By: #### C BC #### [facility] [address] [place] [address] Dr. Saray Souza Platelet mean volume (Bld) [Entitic vol] 8.9 fL Critically low 9.5-13.5 [facility] Comment on above: Performed By: #### C BC #### [facility] [address] [place] [address] Dr. Saray Souza PLT 293 103/ul Normal 150-450 [facility] Comment on above: Performed By: #### C BC #### [facility] [address] [address] [address] Saray Souza RBC 4.56 106/ul Normal 4.20-5.40 [facility] Comment on above: Performed By: #### C BC #### [facility] [address] [address] [address] Saray Souza WBC 7.5 103/ul Normal 4.0-11.0 [facility] Comment on above: Performed By: #### C BC #### [facility] [address] [place] [address] Dr. Saray Souza CULTURE URINEon 04-01-2023 CULTURE URINE Culture Observations : MODERATE GROWTH OF MIXED GENITAL CARMELO. NO POTENTIAL PATHOGENS SEEN. Normal [facility] Comment on above: Performed By: #### C BC #### [facility] [address] [place] [address] Dr. Saray Souza FREE THYROXINE INDEX T7on FTI 2.51 Normal 1.30-4.50 [facility] Comment on above: Performed By: #### I NSULIN #### [facility] [address] [place] [address] Dr. Saray Souza T3U 33.0 % Normal 30.0-39.0 [facility] Comment on above: Performed By: #### I NSULIN #### [facility] [address] [place] [address] Dr. Saray Souza T4 [Mass/Vol] 7.60 ug/dL Normal 4.80-13.[address] [facility] Comment on above: Performed By: #### I NSULIN #### [facility] [address] [place] [address] Dr. Saray Souza IRONon 04-01-2023 Iron [Mass/Vol] 151.0 ug/dL Normal 50.0-170.0 [facility] Comment on above: Performed By: #### C EDGARDO #### [facility] [address] [place] [address] Dr. Saray Souza PROF 14(COMP METB)on 023 Albumin [Mass/Vol] 3.7 g/dL Normal 3.4-5.0 [facility] Comment on above: Performed By: #### C EDGARDO #### [facility] [address] [place] [address] Dr. Saray Souza Albumin/Globulin [Mass ratio] 1.1 {ratio} Normal [facility] Comment on above: Performed By: #### C EDGARDO #### [facility] [address] [place] [address] Dr. Saray Souza ALP [Catalytic activity/Vol] 81 U/L Normal 46-116 [facility] Comment on above: Performed By: #### C EDGARDO #### [facility] [address] [place] [address] Dr. Saray Souza ALT [Catalytic activity/Vol] 33 U/L Normal 14-59 [facility] Comment on above: Performed By: #### C EDGARDO #### [facility] [address] [place] [address] Dr. Saray Souza Anion gap [Moles/Vol] 10.2 mmol/L Normal [facility] Comment on above: Performed By: #### C EDGARDO #### [facility] [address] [place] [address] Dr. Saray Souza AST [Catalytic activity/Vol] 22 U/L Normal 15-37 [facility] Comment on above: Performed By: #### C EDGARDO #### [facility] [address] [place] [address] Dr. Saray Souza Bilirubin [Mass/Vol] 0.3 mg/dL Normal 0.2-1.0 [facility] Comment on above: Performed By: #### C EDGARDO #### [facility] [address] [place] [address] Dr. Saray Souza Calcium [Mass/Vol] 8.6 mg/dL Normal 8.5-10.1 [facility] Comment on above: Performed By: #### C BCMAN #### [facility] [address] [place] [address] Dr. Saray Souza Chloride [Moles/Vol] 105 mmol/L Normal 98-107 [facility] Comment on above: Performed By: #### C BCMAN #### [facility] [address] [place] [address] Dr. Saray Souza CO2 [Moles/Vol] 30.4 mmol/L Normal 21.0-32.0 [facility] Comment on above: Performed By: #### C BCMAN #### [facility] [address] [place] [address] Dr. Saray Souza Creatinine [Mass/Vol] 0.72 mg/dL Normal 0.55-1.02 [facility] Comment on above: Performed By: #### C BCMAN #### [facility] [address] [place] [address] Dr. Saray Souza EGFR-AF CROATIAN >60 Normal >=60 [facility] Comment on above: Performed By: #### C BCMAN #### [facility] [address] [place] [address] Dr. Saray Souza EGFR-NON AF CROATIAN >60 Normal >=60 [facility] Comment on above: Performed By: #### C BCMAN #### [facility] [address] [place] [address] Dr. Saray Souza Globulin (S) [Mass/Vol] 3.5 g/dL Normal [facility] Comment on above: Performed By: #### C BCMAN #### [facility] [address] [place] [address] Dr. Saray Souza Glucose [Mass/Vol] 89 mg/dL Normal 74-106 [facility] Comment on above: Performed By: #### C BCMAN #### [facility] [address] [place] [address] Dr. Saray Souza Potassium [Moles/Vol] 3.6 mmol/L Normal 3.5-5.1 [facility] Comment on above: Performed By: #### C BCPRESLEY #### [facility] [address] [address] [address] Saray Souza Protein [Mass/Vol] 7.2 g/dL Normal 6.4-8.2 [facility] Comment on above: Performed By: #### C BCPRESLEY #### [facility] [address] [address] [address] Saray Souza Sodium [Moles/Vol] 142 mmol/L Normal 136-145 [facility] Comment on above: Performed By: #### C BCPRESLEY #### [facility] [address] [address] [address] Saray Souza Urea nitrogen [Mass/Vol] 12.0 mg/dL Normal 7.0-18.0 [facility] Comment on above: Performed By: #### C EDGARDO #### [facility] [address] [address] [address] Saray Souza Urea nitrogen/Creatinine [Mass ratio] 16.7 mg/mg Normal [facility] Comment on above: Performed By: #### C EDGARDO #### [facility] [address] [address] [address] Saray Souza TSHon 04-01-2023 TSH 1.708 uIU/mL Normal 0.358-3.[address] [facility] Comment on above: Performed By: #### I NSULIN #### [facility] [address] [address] [address] Saray Souza UA RANDOM W/MICROSCOPICon BACTERIA SMALL Abnormal NONE SEEN [facility] Comment on above: Performed By: #### I NSULIN #### [facility] [address] [address] [address] Saray Souza Bilirubin Ql (U) Negative Normal NEGATIVE [facility] Comment on above: Performed By: #### I NSULIN #### [facility] [address] [address] [address] Saray Souza CAST NONE SEEN Normal NONE SEEN [facility] Comment on above: Performed By: #### I NSULIN #### [facility] [address] [place] [address] Dr. Saray Souza Clarity (U) CLEAR Normal CLEAR [facility] Comment on above: Performed By: #### I NSULIN #### [facility] [address] [place] [address] Dr. Saray Souza Color (U) YELLOW Normal YELLOW [facility] Comment on above: Performed By: #### I NSULIN #### [facility] [address] [place] [address] Dr. Saray Souza Crystals LM Nom (Urine sed) NONE SEEN Normal NONE SEEN [facility] Comment on above: Performed By: #### I NSULIN #### [facility] [address] [place] [address] Dr. Saray Souza Epithelial cells LM Ql (Urine sed) FEW Abnormal NONE SEEN /RARE [facility] Comment on above: Performed By: #### I NSULIN #### [facility] [address] [place] [address] Dr. Saray Souza Glucose Ql (U) Negative Normal NEGATIVE [facility] Comment on above: Performed By: #### I NSULIN #### [facility] [address] [place] [address] Dr. Saray Souza Hemoglobin Ql (U) Negative Normal NEGATIVE [facility] Comment on above: Performed By: #### I NSULIN #### [facility] [address] [place] [address] Dr. Saray Souza Ketones Ql (U) TRACE Abnormal NEGATIVE [facility] Comment on above: Performed By: #### I NSULIN #### [facility] [address] [place] [address] Dr. Saray Souza LEUKOCYTES SMALL Abnormal NEGATIVE [facility] Comment on above: Performed By: #### I NSULIN #### [facility] [address] [place] [address] Dr. Saray Souza MUCOUS NONE SEEN Normal NONE SEEN [facility] Comment on above: Performed By: #### I NSULIN #### [facility] [address] [place] [address] Dr. Saray Souza Nitrite Ql (U) Negative Normal NEGATIVE [facility] Comment on above: Performed By: #### I NSULIN #### [facility] [address] [place] [address] Dr. Saray Souza pH (U) 5.5 [pH] Normal 5-9 [facility] Comment on above: Performed By: #### I NSULIN #### [facility] [address] [place] [address] Dr. Saray Souza RBC 0-2 Normal 0-2 [facility] Comment on above: Performed By: #### I NSULIN #### [facility] [address] [place] [address] Dr. Saray Souza SPEC GRAVITY >=1.030 Abnormal 1.005-<=1.025 [facility] Comment on above: Performed By: #### I NSULIN #### [facility] [address] [place] [address] Dr. Saray Souza UA PROTEIN Negative Normal NEGATIVE/ TRACE [facility] Comment on above: Performed By: #### I NSULIN #### [facility] [address] [place] [address] Dr. Saray Souza Urobilinogen Qn (U) 0.2 {Janine'U}/dL Normal 0.2 - 1. 0 [facility] Comment on above: Performed By: #### I NSULIN #### [facility] [address] [place] [address] Dr. Saray Souza WBC 5-10 Abnormal NONE SEEN [facility] Comment on above: Performed By: #### I NSULIN #### [facility] [address] [place] [address] Dr. Saray Souza INSULINon 02-14-2023 Insulin 12.8 uIU/mL Normal 2.6-24.9 [facility] Comment on above: Performed By: #### C BC #### [facility] [address] [place] [address] Dr. Saray Souza CBC AUTO DIFFon 02-13-2023 BASO # 0.0 103/ul Normal 0.0-0.1 [facility] Comment on above: Performed By: #### C BC #### [facility] [address] [place] [address] Dr. Saray Souza Basophils/100 WBC (Bld) 0.4 % Normal 0.2-2.0 [facility] Comment on above: Performed By: #### C BC #### [facility] [address] [place] [address] Dr. Saray Souza EO # 0.1 103/ul Normal 0.0-0.7 [facility] Comment on above: Performed By: #### C BC #### [facility] [address] [place] [address] Dr. Saray Souza Eosinophils/100 WBC (Bld) 1.6 % Normal 0.9-7.0 [facility] Comment on above: Performed By: #### C BC #### [facility] [address] [place] [address] Dr. Saray Souza Erythrocyte distribution width (RBC) [Ratio] 11.9 % Normal 11.0-15.0 [facility] Comment on above: Performed By: #### C BC #### [facility] [address] [place] [address] Dr. Saray Souza Hematocrit (Bld) [Volume fraction] 41.9 % Normal 36.0-48.0 [facility] Comment on above: Performed By: #### C BC #### [facility] [address] [place] [address] Dr. Saray Souza Hemoglobin (Bld) [Mass/Vol] 13.7 g/dL Normal 12.0-16.0 [facility] Comment on above: Performed By: #### C BC #### [facility] [address] [place] [address] Dr. Saray Souza IG # 0.02 10e3/ul Normal 0.00-0.03 [facility] Comment on above: Performed By: #### C BC #### [facility] [address] [place] [address] Dr. Saray Souza IG % 0.3 % Normal 0.0-0.5 [facility] Comment on above: Performed By: #### C BC #### [facility] [address] [address] [address] Saray Souza LYMPH # 1.4 103/ul Normal 1.2-3.8 [facility] Comment on above: Performed By: #### C BC #### [facility] [address] [place] [address] Dr. Saray Souza Lymphocytes/100 WBC (Bld) 18.6 % Critically low 20.5-60.0 [facility] Comment on above: Performed By: #### C BC #### [facility] [address] [place] [address] Dr. Saray Souza MANUAL DIFF REQ NO Normal [facility] Comment on above: Performed By: #### C BC #### [facility] [address] [place] [address] Dr. Saray Souza MCH (RBC) [Entitic mass] 29.9 pg Normal 26.7-34.0 [facility] Comment on above: Performed By: #### C BC #### [facility] [address] [place] [address] Dr. Saray Souza MCHC (RBC) [Mass/Vol] 32.7 g/dL Normal 29.9-35.2 [facility] Comment on above: Performed By: #### C BC #### [facility] [address] [place] [address] Dr. Saray Souza MCV (RBC) [Entitic vol] 91.5 fL Normal 81.0-99.0 [facility] Comment on above: Performed By: #### C BC #### [facility] [address] [place] [address] Dr. Saray Souza MONO # 0.6 103/ul Normal 0.3-0.8 [facility] Comment on above: Performed By: #### C BC #### [facility] [address] [place] [address] Dr. Saray Souza Monocytes/100 WBC (Bld) 8.3 % Normal 1.7-12.0 [facility] Comment on above: Performed By: #### C BC #### [facility] [address] [place] [address] Dr. Saray Souza NEUT # 5.5 103/ul Normal 1.4-6.5 [facility] Comment on above: Performed By: #### C BC #### [facility] [address] [place] [address] Dr. Saray Souza Neutrophils/100 WBC (Bld) 70.8 % Normal 43.0-75.0 [facility] Comment on above: Performed By: #### C BC #### [facility] [address] [place] [address] Dr. Saray Souza Platelet mean volume (Bld) [Entitic vol] 9.0 fL Critically low 9.5-13.5 [facility] Comment on above: Performed By: #### C BC #### [facility] [address] [place] [address] Dr. Saray Souza PLT 271 103/ul Normal 150-450 [facility] Comment on above: Performed By: #### C BC #### [facility] [address] [place] [address] Dr. Saray Souza RBC 4.58 106/ul Normal 4.20-5.40 [facility] Comment on above: Performed By: #### C BC #### [facility] [address] [place] [address] Dr. Saray Souza WBC 7.7 103/ul Normal 4.0-11.0 [facility] Comment on above: Performed By: #### C BC #### [facility] [address] [place] [address] Dr. Saray Souza FREE THYROXINE INDEX T7on FTI 2.56 Normal 1.30-4.50 [facility] Comment on above: Performed By: #### I NSULIN #### [facility] [address] [place] [address] Dr. Saray Souza T3U 36.0 % Normal 30.0-39.0 [facility] Comment on above: Performed By: #### I NSULIN #### [facility] [address] [place] [address] Dr. Saray Souza T4 [Mass/Vol] 7.10 ug/dL Normal 4.80-13.90 [facility] Comment on above: Performed By: #### I NSULIN #### [facility] [address] [place] [address] Dr. Saray FRIENDon 02-13-2023 Iron [Mass/Vol] 130.0 ug/dL Normal 50.0-170.0 [facility] Comment on above: Performed By: #### C DAVIDMAN #### [facility] [address] [place] [address] Dr. Saray Souza PROF 14(COMP METB)on 023 Albumin [Mass/Vol] 3.8 g/dL Normal 3.4-5.0 [facility] Comment on above: Performed By: #### I NSULIN #### [facility] [address] [place] [address] Dr. Saray Souza Albumin/Globulin [Mass ratio] 1.2 {ratio} Normal [facility] Comment on above: Performed By: #### I NSULIN #### [facility] [address] [place] [address] Dr. Saray Souza ALP [Catalytic activity/Vol] 82 U/L Normal 46-116 [facility] Comment on above: Performed By: #### I NSULIN #### [facility] [address] [place] [address] Dr. Saray Souza ALT [Catalytic activity/Vol] 25 U/L Normal 14-59 [facility] Comment on above: Performed By: #### I NSULIN #### [facility] [address] [place] [address] Dr. Saray Souza Anion gap [Moles/Vol] 12.7 mmol/L Normal [facility] Comment on above: Performed By: #### I NSULIN #### [facility] [address] [place] [address] Dr. Saray Souza AST [Catalytic activity/Vol] 19 U/L Normal 15-37 [facility] Comment on above: Performed By: #### I NSULIN #### [facility] [address] [place] [address] Dr. Saray Souza Bilirubin [Mass/Vol] 0.3 mg/dL Normal 0.2-1.0 [facility] Comment on above: Performed By: #### I NSULIN #### [facility] [address] [address] [address] Saray Souza Calcium [Mass/Vol] 8.8 mg/dL Normal 8.5-10.1 [facility] Comment on above: Performed By: #### I NSULIN #### [facility] [address] [address] [address] Saray Souza Chloride [Moles/Vol] 101 mmol/L Normal 98-107 [facility] Comment on above: Performed By: #### I NSULIN #### [facility] [address] [place] [address] Dr. Saray Souza CO2 [Moles/Vol] 27.3 mmol/L Normal 21.0-32.0 [facility] Comment on above: Performed By: #### I NSULIN #### [facility] [address] [address] [address] Saray Souza Creatinine [Mass/Vol] 0.69 mg/dL Normal 0.55-1.02 [facility] Comment on above: Performed By: #### I NSULIN #### [facility] [address] [place] [address] Dr. Saray Souza EGFR-AF CROATIAN >60 Normal >=60 [facility] Comment on above: Performed By: #### I NSULIN #### [facility] [address] [address] [address] Saray Souza EGFR-NON AF CROATIAN >60 Normal >=60 [facility] Comment on above: Performed By: #### I NSULIN #### [facility] [address] [address] [address] Saray Souza Globulin (S) [Mass/Vol] 3.3 g/dL Normal [facility] Comment on above: Performed By: #### I NSULIN #### [facility] [address] [address] [address] Saray Souza Glucose [Mass/Vol] 83 mg/dL Normal 74-106 [facility] Comment on above: Performed By: #### I NSULIN #### [facility] [address] [place] [address] Dr. Saary Souza Potassium [Moles/Vol] 4.0 mmol/L Normal 3.5-5.1 [facility] Comment on above: Performed By: #### I NSULIN #### [facility] [address] [place] [address] Dr. Saray Souza Protein [Mass/Vol] 7.1 g/dL Normal 6.4-8.2 [facility] Comment on above: Performed By: #### I NSULIN #### [facility] [address] [place] [address] Dr. Saray Souza Sodium [Moles/Vol] 137 mmol/L Normal 136-145 [facility] Comment on above: Performed By: #### I NSULIN #### [facility] [address] [place] [address] Dr. Saray Souza Urea nitrogen [Mass/Vol] 10.0 mg/dL Normal 7.0-18.0 [facility] Comment on above: Performed By: #### I NSULIN #### [facility] [address] [place] [address] Dr. Saray Souza Urea nitrogen/Creatinine [Mass ratio] 14.5 mg/mg Normal [facility] Comment on above: Performed By: #### I NSULIN #### [facility] [address] [place] [address] Dr. Saray Souza TSHon 02-13-2023 TSH 2.745 uIU/mL Normal 0.358-3.[address] [facility] Comment on above: Performed By: #### I NSULIN #### [facility] [address] [place] [address] Dr. Saray Souza AMYLASEon 02-04-2023 Amylase [Catalytic activity/Vol] 45 U/L Normal 25-115 [facility] Comment on above: Performed By: #### T SH, CMP, HSTROPN, LIPA, LINDA #### [facility] [address] [place] [address] Dr. Saray Souza CBC AUTO DIFFon 02-04-2023 BASO # 0.0 103/ul Normal 0.0-0.1 [facility] Comment on above: Performed By: #### C BC #### [facility] [address] [place] [address] Dr. Saray Souza Basophils/100 WBC (Bld) 0.4 % Normal 0.2-2.0 [facility] Comment on above: Performed By: #### C BC #### [facility] [address] [place] [address] Dr. Saray Souza EO # 0.1 103/ul Normal 0.0-0.7 [facility] Comment on above: Performed By: #### C BC #### [facility] [address] [place] [address] Dr. Saray Souza Eosinophils/100 WBC (Bld) 1.7 % Normal 0.9-7.0 [facility] Comment on above: Performed By: #### C BC #### [facility] [address] [place] [address] Dr. Saray Souza Erythrocyte distribution width (RBC) [Ratio] 12.0 % Normal 11.0-15.0 [facility] Comment on above: Performed By: #### C BC #### [facility] [address] [place] [address] Dr. Saray Souza Hematocrit (Bld) [Volume fraction] 42.3 % Normal 36.0-48.0 [facility] Comment on above: Performed By: #### C BC #### [facility] [address] [place] [address] Dr. Saray Souza Hemoglobin (Bld) [Mass/Vol] 13.9 g/dL Normal 12.0-16.0 [facility] Comment on above: Performed By: #### C BC #### [facility] [address] [place] [address] Dr. Saray Souza IG # 0.03 10e3/ul Normal 0.00-0.03 [facility] Comment on above: Performed By: #### C BC #### [facility] [address] [place] [address] Dr. Saray Souza IG % 0.4 % Normal 0.0-0.5 [facility] Comment on above: Performed By: #### C BC #### [facility] [address] [place] [address] Dr. Saray Souza LYMPH # 1.5 103/ul Normal 1.2-3.8 [facility] Comment on above: Performed By: #### C BC #### [facility] [address] [place] [address] Dr. Saray Souza Lymphocytes/100 WBC (Bld) 20.4 % Critically low 20.5-60.0 [facility] Comment on above: Performed By: #### C BC #### [facility] [address] [place] [address] Dr. Saray Souza MANUAL DIFF REQ NO Normal [facility] Comment on above: Performed By: #### C BC #### [facility] [address] [place] [address] Dr. Saray Souza MCH (RBC) [Entitic mass] 30.0 pg Normal 26.7-34.0 [facility] Comment on above: Performed By: #### C BC #### [facility] [address] [place] [address] Dr. Saray Souza MCHC (RBC) [Mass/Vol] 32.9 g/dL Normal 29.9-35.2 [facility] Comment on above: Performed By: #### C BC #### [facility] [address] [place] [address] Dr. Saray Souza MCV (RBC) [Entitic vol] 91.2 fL Normal 81.0-99.0 [facility] Comment on above: Performed By: #### C BC #### [facility] [address] [place] [address] Dr. Saray Souza MONO # 0.6 103/ul Normal 0.3-0.8 [facility] Comment on above: Performed By: #### C BC #### [facility] [address] [place] [address] Dr. Saray Souza Monocytes/100 WBC (Bld) 7.7 % Normal 1.7-12.0 [facility] Comment on above: Performed By: #### C BC #### [facility] [address] [place] [address] Dr. Saray Souza NEUT # 5.2 103/ul Normal 1.4-6.5 [facility] Comment on above: Performed By: #### C BC #### [facility] [address] [place] [address] Dr. Saray Souza Neutrophils/100 WBC (Bld) 69.4 % Normal 43.0-75.0 [facility] Comment on above: Performed By: #### C BC #### [facility] [address] [place] [address] Dr. Saray Souza Platelet mean volume (Bld) [Entitic vol] 9.0 fL Critically low 9.5-13.5 [facility] Comment on above: Performed By: #### C BC #### [facility] [address] [place] [address] Dr. Saray Souza PLT 292 103/ul Normal 150-450 [facility] Comment on above: Performed By: #### C BC #### [facility] [address] [place] [address] Dr. Saray Souza RBC 4.64 106/ul Normal 4.20-5.40 [facility] Comment on above: Performed By: #### C BC #### [facility] [address] [place] [address] Dr. Saray Souza WBC 7.5 103/ul Normal 4.0-11.0 [facility] Comment on above: Performed By: #### C BC #### [facility] [address] [place], [place] [id number] Dr. Saray Souza CULTURE URINEon 02-04-2023 CULTURE URINE Culture Observations : LIGHT GROWTH OF MIXED GENITAL CARMELO. NO POTENTIAL PATHOGENS SEEN. Normal [facility] Comment on above: Performed By: #### C BC #### [facility] [address] [place] [address] Dr. Saray Souza ER URINE PROFILEon 3 Bilirubin Ql (U) Negative Normal NEGATIVE [facility] Comment on above: Performed By: #### C BC #### [facility] [address] [place] [address] Dr. Saray Souza Clarity (U) CLEAR Normal CLEAR [facility] Comment on above: Performed By: #### C BC #### [facility] [address] [place] [address] Dr. Saray Souza Color (U) LT. YELLOW Normal YELLOW [facility] Comment on above: Performed By: #### C BC #### [facility] [address] [place] [address] Dr. Saray JHA A micrscopic examination will be performed if indicated. Normal [facility] Comment on above: Performed By: #### C BC #### [facility] [address] [place] [address] Dr. Saray Souza Glucose Ql (U) Negative Normal NEGATIVE [facility] Comment on above: Performed By: #### C BC #### [facility] [address] [place] [address] Dr. Saray Souza Hemoglobin Ql (U) Negative Normal NEGATIVE [facility] Comment on above: Performed By: #### C BC #### [facility] [address] [place] [address] Dr. Saray Souza Ketones Ql (U) Negative Normal NEGATIVE [facility] Comment on above: Performed By: #### C BC #### [facility] [address] [place] [address] Dr. Saray Souza LEUKOCYTES MODERATE Abnormal NEGATIVE [facility] Comment on above: Performed By: #### C BC #### [facility] [address] [place] [address] Dr. Saray Souza Nitrite Ql (U) Negative Normal NEGATIVE [facility] Comment on above: Performed By: #### C BC #### [facility] [address] [place] [address] Dr. Saray Souza pH (U) 5.5 [pH] Normal 5-9 [facility] Comment on above: Performed By: #### C BC #### [facility] [address] [place] [address] Dr. Saray Souza SPEC GRAVITY >=1.030 Abnormal 1.005-<=1.025 [facility] Comment on above: Performed By: #### C BC #### [facility] [address] [place] [address] Dr. Saray Souza UA PROTEIN Negative Normal NEGATIVE/ TRACE [facility] Comment on above: Performed By: #### C BC #### [facility] [address] [place] [address] Dr. Saray Souza UR MICRO IND INDICATED Normal [facility] Comment on above: Performed By: #### C BC #### [facility] [address] [place] [address] Dr. Saray Souza Urobilinogen Qn (U) 0.2 {Janine'U}/dL Normal 0.2 - 1. 0 [facility] Comment on above: Performed By: #### C BC #### [facility] [address] [place] [address] Dr. Saray Souza LIPASEon 02-04-2023 Lipase [Catalytic activity/Vol] 97.0 U/L Normal 73.0-393.0 [facility] Comment on above: Performed By: #### T SH, CMP, HSTROPN, LIPA, LINDA #### [facility] [address] [place] [address] Dr. Saray Souza URon 02-04-2023 , QUAL Negative Normal NEGATIVE [facility] Comment on above: Performed By: #### C BC #### [facility] [address] [place] [address] Dr. Saray Souza PROF 14(COMP METB)on 023 Albumin [Mass/Vol] 3.5 g/dL Normal 3.4-5.0 [facility] Comment on above: Performed By: #### T SH, CMP, HSTROPN, LIPA, LINDA #### [facility] [address] [place] [address] Dr. Saray Souza Albumin/Globulin [Mass ratio] 1.2 {ratio} Normal [facility] Comment on above: Performed By: #### T SH, CMP, HSTROPN, LIPA, LINDA #### [facility] [address] [place] [address] Dr. Saray Souza ALP [Catalytic activity/Vol] 78 U/L Normal 46-116 [facility] Comment on above: Performed By: #### T SH, CMP, HSTROPN, LIPA, LINDA #### [facility] [address] [place] [address] Dr. Saray Souza ALT [Catalytic activity/Vol] 24 U/L Normal 14-59 [facility] Comment on above: Performed By: #### T SH, CMP, HSTROPN, LIPA, LINDA #### [facility] [address] [place] [address] Dr. Saray Souza Anion gap [Moles/Vol] 7.9 mmol/L Normal [facility] Comment on above: Performed By: #### T SH, CMP, HSTROPN, LIPA, LINDA #### [facility] [address] [place] [address] Dr. Saray Souza AST [Catalytic activity/Vol] 16 U/L Normal 15-37 [facility] Comment on above: Performed By: #### T SH, CMP, HSTROPN, LIPA, LINDA #### [facility] [address] [place] [address] Dr. Saray Souza Bilirubin [Mass/Vol] 0.3 mg/dL Normal 0.2-1.0 [facility] Comment on above: Performed By: #### T SH, CMP, HSTROPN, LIPA, LINDA #### [facility] [address] [place] [address] Dr. Saray Souza Calcium [Mass/Vol] 8.6 mg/dL Normal 8.5-10.1 [facility] Comment on above: Performed By: #### T SH, CMP, HSTROPN, LIPA, LINDA #### [facility] [address] [place] [address] Dr. Saray Souza Chloride [Moles/Vol] 105 mmol/L Normal 98-107 [facility] Comment on above: Performed By: #### T SH, CMP, HSTROPN, LIPA, LINDA #### [facility] [address] [address] [address] Saray Souza CO2 [Moles/Vol] 28.9 mmol/L Normal 21.0-32.0 [facility] Comment on above: Performed By: #### T SH, CMP, HSTROPN, LIPA, LINDA #### [facility] [address] [address] [address] Saray Souza Creatinine [Mass/Vol] 0.67 mg/dL Normal 0.55-1.02 [facility] Comment on above: Performed By: #### T SH, CMP, HSTROPN, LIPA, LINDA #### [facility] [address] [place] [address] Dr. Saray Souza EGFR-AF CROATIAN >60 Normal >=60 [facility] Comment on above: Performed By: #### T SH, CMP, HSTROPN, LIPA, LINDA #### [facility] [address] [place] [address] Dr. Saray Souza EGFR-NON AF CROATIAN >60 Normal >=60 [facility] Comment on above: Performed By: #### T SH, CMP, HSTROPN, LIPA, LINDA #### [facility] [address] [address] [address] Saray Souza Globulin (S) [Mass/Vol] 3.0 g/dL Normal [facility] Comment on above: Performed By: #### T SH, CMP, HSTROPN, LIPA, LINDA #### [facility] [address] [address] [address] Saray Souza Glucose [Mass/Vol] 97 mg/dL Normal 74-106 [facility] Comment on above: Performed By: #### T SH, CMP, HSTROPN, LIPA, LINDA #### [facility] [address] [address] [address] Saray Souza Potassium [Moles/Vol] 3.8 mmol/L Normal 3.5-5.1 [facility] Comment on above: Performed By: #### T SH, CMP, HSTROPN, LIPA, LINDA #### [facility] [address] [place] [address] Dr. Saray Souza Protein [Mass/Vol] 6.5 g/dL Normal 6.4-8.2 [facility] Comment on above: Performed By: #### T SH, CMP, HSTROPN, LIPA, LINDA #### [facility] [address] [place] [address] Dr. Saray Souza Sodium [Moles/Vol] 138 mmol/L Normal 136-145 [facility] Comment on above: Performed By: #### T SH, CMP, HSTROPN, LIPA, LINDA #### [facility] [address] [place] [address] Dr. Saray Souza Urea nitrogen [Mass/Vol] 13.0 mg/dL Normal 7.0-18.0 [facility] Comment on above: Performed By: #### T SH, CMP, HSTROPN, LIPA, LINDA #### [facility] [address] [place] [address] Dr. Saray Souza Urea nitrogen/Creatinine [Mass ratio] 19.4 mg/mg Normal [facility] Comment on above: Performed By: #### T SH, CMP, HSTROPN, LIPA, LINDA #### [facility] [address] [place] [address] Dr. Saray Souza TROPONIN, HIGH SENSITIVITYon 02-04-2023 HSTROP 4.0 pg/mL Normal 4.0-51.3 [facility] Comment on above: Result Comment: CUT- OFF POINTS HAVE BEEN ESTABLISHED BASED ON THE FOURTH UNIVERSAL DEFINITIONS OF MYOCARDIAL INFARCTION. THE UPPER REFERENCE LIMIT (URL) OF TROPONIN, DEFINED THE 99TH PERCENTILE OF cTnI DISTRIBUTION IN A REFERENCE POPULATION, HAS BEEN CONFIRMED THE DECISION THRESHOLD FOR NV DIAGNOSIS. Performed By: #### T SH, CMP, HSTROPN, LIPA, LINDA #### [facility] [address] [place] [address] Dr. Saray Souza TSHon 02-04-2023 TSH 2.478 uIU/mL Normal 0.358-3.740 [facility] Comment on above: Performed By: #### T SH, CMP, HSTROPN, LIPA, LINDA #### [facility] [address] [place] [address] Dr. Saray Souza URINE MICROSCOPIC ONLYon BACTERIA MODERATE Abnormal NONE SEEN [facility] Comment on above: Performed By: #### C BC #### [facility] [address] [place] [address] Dr. Saray Souza Bacteria identified Cx Nom (U) INDICATED Normal [facility] Comment on above: Performed By: #### C BC #### [facility] [address] [place] [address] Dr. Saray Souza CAST NONE SEEN Normal NONE SEEN [facility] Comment on above: Performed By: #### C BC #### [facility] [address] [place] [address] Dr. Saray Souza Crystals LM Nom (Urine sed) NONE SEEN Normal NONE SEEN [facility] Comment on above: Performed By: #### C BC #### [facility] [address] [place] [address] Dr. Saray Souza Epithelial cells LM Ql (Urine sed) MODERATE Abnormal NONE SEEN /RARE [facility] Comment on above: Performed By: #### C BC #### [facility] [address] [place] [address] Dr. Saray Souza MUCOUS NONE SEEN Normal NONE SEEN [facility] Comment on above: Performed By: #### C BC #### [facility] [address] [place] [address] Dr. Saray Souza RBC 5-10 Abnormal 0-2 [facility] Comment on above: Performed By: #### C BC #### [facility] [address] [place] [address] Dr. Saray Souza WBC 10-20 Abnormal NONE SEEN [facility] Comment on above: Performed By: #### C BC #### [facility] [address] [place] [address] Dr. Saray Souza [facility]on [facility]-24 SARS-CoV-2 (COVID-19) RNA DAYDAY+probe Ql (Unsp spec) Not detected Normal NOT DETECTED The [facility] Comment on above: Result Comment: [...] for this test is supported by the Platter of Health and Human Service's declaration that [...] used). Performed By: #### C BC #### [facility] [address] [place] [address] Dr. Saray Souza INFLUENZA A AND B AGon 10-20 INFLUANEGH SEE BELOW Normal [facility] Comment on above: Result Comment: Nega tive for Flu A protein angiten. Infection due to Flu A cannot be ruled out. Flu A angiten in the sample may be below the detection limit of the test. Performed By: #### C BC #### [facility] [address] [place] [address] Dr. Saray Souza INFLUBNEGH SEE BELOW Normal [facility] Comment on above: Result Comment: Nega tive for Flu B protein antigen. Infection due to Flu B cannot be ruled out. Flu B antigen in the sample may be below the detection limit of the test. Performed By: #### C BC #### [facility] [address] [place] [address] Dr. Saray Souza INFLUENZA A AG Negative Normal NEGATIVE SEE COMMENT [facility] Comment on above: Performed By: #### C BC #### [facility] [address] [address] [address] Saray Souza INFLUENZA B AG Negative Normal NEGATIVE SEE COMMENT [facility] Comment on above: Performed By: #### C BC #### [facility] [address] [place] [address] Dr. Saray Souza INTERNAL CONTROLS Within Normal Limits Normal Wi thin Normal Limits [facility] Comment on above: Performed By: #### C BC #### [facility] [address] [place] [address] Dr. Saray Souza STREPT SCREENon 10-20-2022 STREP SCREEN A Positive Abnormal NEGATIVE [facility] Comment on above: Performed By: #### C BC #### [facility] [address] [place] [address] Dr. Saray Souza XR SHOULDER RT INJon 2 022 XR SHOULDER RT INJ EXAMINATION: XR [...] ADRIANA MENDEZ Date: 2022-07-18 17:05 Normal [facility] MRI SHOULDER RT WO CONon MRI SHOULDER [...] by: ADRIANA MENDEZ Date: 2022-07-10 10:10 Normal [facility] XR ARTHRO SHLD RTon 07-10-20 22 XR [...] by: ADRIANA MENDEZ Date: 2022-07-10 10:01 Normal [facility] No Panel Informationon 03-18 Right Eye Reliability was good. Findings include normal observations. Left Eye Reliability was good. Findings include normal observations. Notes I personally reviewed the visual zaldivar performed by this patient on 03/18/22. The visual zaldivar are normal OU with good fixation. 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 Francisco Ayers MD Normal [facility] Cytologyon 12-20-2018 Cytology (NOTE) [id number] [facility] ANATOMIC PATHOLOGY [address] [place] [address]. [place], [place] [address] GYNECOLOGIC CYTOLOGY REPORT Patient Name: ROSALIE FREEMAN V. 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 - Endocervical/transform ation zone component present. - Scant cellularity; predominantly blood. Descriptive Diagnosis: Negative for intraepithelial lesion or malignancy. Inspector Wire Rope: KANCHAN Mendoza(ASCP) Electronically Signed Out donna/01/03/2019 Normal [facility] Comment on above: Performed By: #### P PPVP #### [employer] [address] [place] [id number] Structural Steel Erector: Vega Wilkerson MD Vital Signs Date Time Vital Sign Value Performing Clinician Facility 01-19-2024 09:34-0500 Blood Pressure Location ELÍAS HOPSON [facility] 01-19-2024 09:34-0500 Diastolic blood pressure 84 mm[Hg] ELÍAS HOPSON [facility] 01-19-2024 09:34-0500 Heart rate 80 /min ELÍAS HOPSON [facility] 01-19-2024 09:34-0500 Respiratory rate 16 /min ELÍAS HOPSON [facility] 01-19-2024 09:34-0500 Systolic blood pressure 132 mm[Hg] ELÍAS HOPSON [facility] 12-02-2023 08:40-0500 Body height 180.34 cm Taniya Mary Grace Other [employer] Other 12-02-2023 08:40-0500 Body mass index (BMI) [Ratio] 45.1 kg/m2 Taniya Mary Grace Other [employer] Other 12-02-2023 08:40-0500 Body temperature 97.5 [degF] Taniya Mary Grace Other [employer] Other 12-02-2023 08:40-0500 Body weight 146.69 kg Taniya Mary Grace Other [employer] Other 12-02-2023 08:40-0500 Diastolic blood pressure 83 mm[Hg] Taniya Mary Grace Other [employer] Other 12-02-2023 08:40-0500 Respiratory rate 18 /min Taniya Mary Grace Other [employer] Other 12-02-2023 08:40-0500 SaO2% (BldA) [Mass fraction] 98 % Taniya Mary Grace Other [employer] Other 12-02-2023 08:40-0500 Systolic blood pressure 136 mm[Hg] Taniya Mary Grace Other [employer] Other 11-19-2021 15:30-0500 Body height 180.34 cm Nandini Pantoja Other [employer] Other 11-19-2021 15:30-0500 Body mass index (BMI) [Ratio] 41.56 kg/m2 Nandini Pantoaj Other [employer] Other 11-19-2021 15:30-0500 Body weight 135.17 kg Nandini Scarlett Other [employer] Other 11-19-2021 15:30-0500 Diastolic blood pressure 76 mm[Hg] Nandini Scarlett Other [employer] Other 11-19-2021 15:30-0500 Systolic blood pressure 128 mm[Hg] Nandini Pantoja Other [employer] Other Encounters Encounter Date Encounter Type Care Provider Facility Start: 01-19-2024 ambulatory ELÍAS HOPSON Facili ty:[facility] Start: 01-19-2024 End: 01-19-2024 Lab Drop off ELÍAS HOPSON [facility] Start: 01-19-2024 End: 01-19-2024 Patient encounter procedure ELÍAS HOPSON [facility] Start: 12-31-2023 ambulatory ELÍAS HOPSON Facility :[facility] Start: 12-17-2023 End: 12-17-2023 ambulatory Taniya Mary Grace Other [employer] Other Start: 12-17-2023 Office outpatient visit 15 minutes Taniya Mary Grace [facility] Start: 12-07-2023 End: 12-07-2023 ambulatory Taniya Mary Grace Other [employer] Other Start: 12-07-2023 Telephone encounter Taniya Mary Grace [facility] Start: 12-02-2023 End: 12-02-2023 ambulatory Taniya Mary Grace Other [facility] Other Start: 12-02-2023 Office outpatient ne w 30 minutes Taniya Mary Grace [facility] Start: 04-17-2023 End: 04-17-2023 ambulatory SALMA DIAB . Facility:[facility] Start: 04-06-2023 End: 04-07-[address] MELODIE HARGROVE . Facility:[facility] Start: 04-04-2023 Encounter for genera l adult medical examination without abnormal findings DR MELODIE HARGROVE . [facility] Start: 04-03-2023 End: 04-04-[address] MELODIE [...] 11-19-2021 End: 11-19-2021 ambulatory Nandini Pantoja Other [facility] [employer] Other Start: 11-19-2021 Office outpatient ne w 30 minutes Nandini Pantoja [facility] Start: 12-20-2018 End: 12-21-2018 Patient encounter procedure ANDRESSA ESCALANTE [facility] Procedures Date Procedure Procedure Detail Performing Clinician Start: 03-18-2022 Visual field xm uni/ bi w/interp extended exam Estella Guerrero MD Work Phone: Start: 03-18-2022 End: 03-18-2022 Ophth medical xm&eval compre new pt 1/> vst Chronic nonintractable headache, unspecified headache type Estella Guerrero MD Work Phone: Comment on above: Chronic nonintractab le headache, unspecified headache type (Primary Dx) Start: 10-02-2021 Laparoscopic cholecystectomy ELÍAS HOPSON Start: 12-20-2018 Cytopathology proced ure, preparation of smear, genital source ANDRESSA ESCALANTE Colonoscopy ELÍAS HOPSON Fasciotomy of foot ELÍAS HOPSON Comment on above: left Hallux valgus correc tion by phalanx osteotomy ELÍAS HOPSON Hammer toe operation JODIEGABRIELA Mckenzie EMILIANA Left salpingo-oophorectomy ELÍAS HOPSON Plan of Treatment Date Care Activity Detail Author Start: 2043 Shingles (RZV) Vacci ne (1 of 2) Shingles (RZV) Vaccine (1 of 2) [facility] Start: 2014 Screening for malign ant neoplasm of cervix Pap Smear [facility] Start: 2011 Hepatitis C screening Hepatitis C An tibody [facility] Start: 2011 Tetanus + diphtheria + acellular pertussis vaccine (product) Tdap Booster [facility] Start: 2008 HIV screening HIV Test [facility] Start: 1998 COVID-19 Vaccine (1) COVID-19 Vaccin e (1) [facility] Immunizations Immunization Date Immunization Notes Care Provider Marino lopez 10-28-2022 influenza virus vaccine, unspecified formulation ELÍAS HOPSON [facility] 04-15-2021 SARS-CoV-2 (COVID-19 ) mRNA-1273 vaccine ELÍAS HOPSON [facility] [place] 03-18-2021 SARS-CoV-2 (COVID-19 ) mRNA-1273 vaccine ELÍAS HOPSON [facility] [place] 03-21-2014 influenza virus vaccine, unspecified formulation Estella Guerrero MD Work Phone: [facility] Payers Date Payer Category Payer Unknown [employer] [id number] 2017-Present [id number] 1993 Unknown [id number] 1993 Unknown [id number] [id number] 1993 Unknown [id number] [id number] 1993 Unknown [id number] [id number] 1993 Unknown [id number] 2.16.840.1.940185.3.579.2.593 1993 Unknown [id number] 2.16.840.1.664581.3.579.2.593 1993 Unknown [id number] 2.16.840.1.348271.3.579.2.593 1993 Unknown [id number] 2.16.840.1.776165.3.579.2.593 1993 Unknown [id number] 2.16.840.1.612371.3.579.2.593 1993 Unknown [id number] 2.16.840.1.339394.3.579.2.593 1993 Unknown [id number] 2.16.840.1.870709.3.579.2.593 1993 Unknown [id number] 2.16.840.1.036050.3.579.2.593 1993 Unknown [id number] 2.16.840.1.250438.3.579.2.593 1993 Unknown [id number] 2.16.840.1.884036.3.579.2.593 1993 Unknown [id number] [id number] 1959 Unknown [id number] Social History Date Type Detail Facility Tobacco smoking status [facility] Tobacco smoking consumption unknown [facility] [employer] Other Start: 1993 Sex Assigned At Not on file [facility] Sex Assigned At [facility] Start: 01-19-2024 Tobacco smoking status Never smoked tobacco (finding) [facility] Tobacco smoking status Never [facility] Functional Status Date Assessment Result Facility 01-19-2024 Functional Status N/A [facility] Clinical Notes 03-18-2022 to 01-19-2024 Note Date & Type Note Facility 01-19-2024 Hospital Discharg e instructions Patient Education 01/19/2024 10:40:41 Cystogram Cystogram A cystogram, also called cystography, is a type of X-ray exam that is used to check for problems with the bladder. You may need this exam if you have blood in your urine (hematuria), urinary tract infections that keep coming back, or possible damage to your bladder from an injury. During the exam, your health care provider will inject dye into your bladder. This dye shows up on an X-ray. It helps your health care provider see your bladder and check for any problems. This exam can be used to diagnose problems such as: Cysts. Blood clots (hematoma). Punctures, tears, or other damage to the bladder. Bladder tumors. Vesicoureteral reflux. This is backward flow of urine from the bladder to the ureter. An abnormal tunnel (fistula) from the bladder to another organ. Tell a health care provider about: Any allergies you have. All medicines you are taking, including vitamins, herbs, eye drops, creams, and kzsv-ciu-dunkycq medicines. Any problems you or family members have had with anesthetic medicines or injectable dyes. Any bleeding problems you have. Any surgeries you have had. Any medical conditions you have. Whether you are or may be . What are the risks? Your health care provider will talk with you about risks. These may include: Exposure to a small amount of radiation. Urinary tract infection. Bleeding. An allergic reaction to the dye. This is rare. What happens before the procedure? Medicines Ask your health care provider about: ?Changing or stopping your regular medicines. This includes any diabetes medicines or blood thinners you take. ?Taking medicines such as aspirin and ibuprofen. These medicines can thin your blood. Do not take them unless your health care provider tells you to. ?Taking setz-uqc-abxlysu medicines, vitamins, herbs, and supplements. General instructions Follow instructions from your health care provider about what you may eat and drink. What happens during the procedure? You will lie on your back on an X-ray table. A small, thin tube (catheter) will be passed through your urethra and into your bladder. The urethra is the part of your body that drains urine from the bladder. The health care provider will inject dye into your bladder through the catheter. When your bladder is full, the catheter will be clamped. X-ray images of your bladder area will be taken. You may be asked to move into different positions for some of the scans. The catheter will be removed. In some cases, you may be asked to urinate while more X-rays are taken of your bladder and urethra (voiding cystogram). The procedure may vary among health care providers and hospitals. What can I expect after the procedure? You will be able to go home right after the exam is done. Drink enough fluid to keep your urine pale yellow. This will help to flush the dye out of your body. It is up to you to get your test results. Ask your health care provider, or the department doing the test, when your results will be ready. Return to your normal activities and normal diet as told by your health care provider. Ask your health care provider what activities are safe for you. Summary A cystogram, or cystography, is a type of X-ray exam that is used to check for problems with the bladder. A small, thin tube (catheter) is passed through your urethra and into your bladder. Your health care provider injects dye into your bladder through the catheter. The dye shows up on an X-ray. This lets your health care provider see your bladder and check for any problems. After the procedure, you should drink enough fluid to keep your urine pale yellow. This will help to flush the dye out of your body. This information is not intended to replace advice given to you by your health care provider. Make sure you discuss any questions you have with your health care provider. Document Revised: 02/19/2023 Document Reviewed: 02/19/2023 [employer] Patient Education 2022 [employer]. 01/19/2024 10:32:14 Urinary Tract Infection, Adult Urinary Tract Infection, Adult A urinary tract infection (UTI) is an infection of any part of the urinary tract. The urinary tract includes the kidneys, ureters, bladder, and urethra. These organs make, store, and get rid of urine in the body. An upper UTI affects the ureters and kidneys. A lower UTI affects the bladder and urethra. What are the causes? Most urinary tract infections are caused by bacteria in your genital area around your urethra, where urine leaves your body. These bacteria grow and cause inflammation of your urinary tract. What increases the risk? You are more likely to develop this condition if: You have a urinary catheter that stays in place. You are not able to control when you urinate or have a bowel movement (incontinence). You are female and you: ?Use a spermicide or diaphragm for control. ?Have low estrogen levels. ?Are . You have certain genes that increase your risk. You are sexually active. You take antibiotic medicines. You have a condition that causes your flow of urine to slow down, such as: ?An enlarged prostate, if you are male. ?Blockage in your urethra. ?A kidney stone. ?A nerve condition that affects your bladder control (neurogenic bladder). ?Not getting enough to drink, or not urinating often. You have certain medical conditions, such as: ?Diabetes. ?A weak disease-fighting system (immunesystem). ?Sickle cell disease. ?Gout. ?Spinal cord injury. What are the signs or symptoms? Symptoms of this condition include: Needing to urinate right away (urgency). Frequent urination. This may include small amounts of urine each time you urinate. Pain or burning with urination. Blood in the urine. Urine that smells bad or unusual. Trouble urinating. Cloudy urine. Vaginal discharge, if you are female. Pain in the abdomen or the lower back. You may also have: Vomiting or a decreased appetite. Confusion. Irritability or tiredness. A fever or chills. Diarrhea. The first symptom in older adults may be confusion. In some cases, they may not have any symptoms until the infection has worsened. How is this diagnosed? This condition is diagnosed based on your medical history and a physical exam. You may also have other tests, including: Urine tests. Blood tests. Tests for STIs (sexually transmitted infections). If you have had more than one UTI, a cystoscopy or imaging studies may be done to determine the cause of the infections. How is this treated? Treatment for this condition includes: Antibiotic medicine. Mgfj-vll-lojsbum medicines to treat discomfort. Drinking enough water to stay hydrated. If you have frequent infections or have other conditions such as a kidney stone, you may need to see a health care provider who specializes in the urinary tract (urologist). In rare cases, urinary tract infections can cause sepsis. Sepsis is a life-threatening condition that occurs when the body responds to an infection. Sepsis is treated in the hospital with IV antibiotics, fluids, and other medicines. Follow these instructions at home: Medicines Take ysvy-nos-fbodrdy and prescription medicines only as told by your health care provider. If you were prescribed an antibiotic medicine, take it as told by your health care provider. Do not stop using the antibiotic even if you start to feel better. General instructions Make sure you: ?Empty your bladder often and completely. Do not hold urine for long periods of time. ?Empty your bladder after sex. ?Wipe from front to back after urinating or having a bowel movement if you are female. Use each tissue only one time when you wipe. Drink enough fluid to keep your urine pale yellow. Keep all follow-up visits. This is important. Contact a health care provider if: Your symptoms do not get better after 1 2 days. Your symptoms go away and then return. Get help right away if: You have severe pain in your back or your lower abdomen. You have a fever or chills. You have nausea or vomiting. Summary A urinary tract infection (UTI) is an infection of any part of the urinary tract, which includes the kidneys, ureters, bladder, and urethra. Most urinary tract infections are caused by bacteria in your genital area. Treatment for this condition often includes antibiotic medicines. If you were prescribed an antibiotic medicine, take it as told by your health care provider. Do not stop using the antibiotic even if you start to feel better. Keep all follow-up visits. This is important. This information is not intended to replace advice given to you by your health care provider. Make sure you discuss any questions you have with your health care provider. Document Revised: 06/21/2021 Document Reviewed: 06/21/2021 [employer] Patient Education 2022 [employer]. Follow Up Care 01/08/2024 10:24:51 With:ELÍAS HOPSON PA-C, URL Address: [address] [place] [address]. [place] [address] When: Unknown [facility] 12-17-2023 Evaluation note Encounter Date Diagnosis Assessment Notes Nov, Proteinuria (ICD-10 - R80.9) Her urine protein creatinine ratio is normal. She had 24-hour urine collection for protein which was within the normal limit for that lab. She had unremarkable workup for paraproteinemia hepatitis and ANCA. She likely has intermittent proteinuria either due to the UTIs or prolonged standing. Have advised her to avoid NSAIDs or any other feqw-rrr-vehijnk medication or high-protein supplements Nov, Renal lesion (ICD-10 - N28.9) She had a renal lesion of indeterminate nature on the renal ultrasound but CT showed no evidence of kidney mass. Nov, IBS (irritable bowel syndrome) (ICD-10 - K58.9) Continue to follow with PCP for IBS management. Nov, Hypokalemia (ICD-10 - E87.6) She has hypokalemia likely due to the GI losses. Advised her to increase intake of potassium in her diet. Nov, Other This documentation is being amended on 12/22/23 due to an internal data corruption event that occurred on 12/17/23. This data corruption event was NOT the result of any breach, fraud, or malicious third libertarian actors and no personal patient information was compromised. [employer] Other 01-10-2024 Evaluation note* Encounter Date Diagnosis Assessment Notes Treatment Notes Treatment Clinical Notes Nov, Proteinuria (ICD-10 - R80.9) It [...] her to avoid NSAIDs or any other aupx-lux-xzywhem medication or high-protein supplements Nov, Renal lesion (ICD-10 - N28.9) She had a renal lesion of indeterminate nature on the renal ultrasound. She is ordered to have a CAT scan with contrast by the PCP. Will follow the report once done. Nov, IBS (irritable bowel syndrome) (ICD-10 - K58.9) Continue to follow with PCP for IBS management. [employer] Other 06-21-2022 NotePROCEDURE: XR SHOULDER RT 2V or > COMPARISON: None. HISTORY: Pain of right shoulder joint FINDINGS: BONES:No fracture, acute abnormality, or significant arthropathy. SOFT TISSUES:Negative. No visible soft tissue swelling. EFFUSION:None visible. OTHER: Negative. IMPRESSION: Normal examination. Electronically authenticated by: NANDINI MAYER Date: 2022-05-13 08:41[facility]04-26-2022 History of Present illness Narrative* Francisco Ayers [...] Hair) regarding headaches-- will fax information to [phone] - Offered referral to neurology, patient prefers [...] papilledema. Francisco Ayers MD documented in this [id number] History of Present illness Narrative* Francisco Ayers [...] Hair) regarding headaches-- will fax information to [phone] - Offered referral to neurology, patient prefers [...] PCP. Francisco Ayers MD [facility] note Future Appointments Appointment Date:02/02/2024 11:30:00 AM Scheduled Provider: Location:[facility] Appointment Type:Urology CALL PAT Appointment Date:02/09/2024 08:15:00 AM Scheduled Provider: Location:[facility] Appointment Type:Urology FT Appointment Date:2024 08:20:00 AM Scheduled Provider:ELÍAS HOPSON PA-C Location:[facility] Appointment Type:URO Office Visit [facility] evaluation + Plan note Future Appointments Appointment Date:02/02/2024 11:30:00 AM Scheduled Provider: Location:[facility] Appointment Type:Urology CALL PAT FT Appointment Date:02/09/2024 08:15:00 AM Scheduled Provider: Location:[facility] Appointment Type:Urology FT Appointment Date:2024 08:20:00 AM Scheduled Provider:ELÍAS HOPSON PA-C Location:[facility] Appointment Type:URO Office Visit Diagnostic Tests Pending * [facility] nonintractable headache, unspecified headache type- [facility] nonintractable headache, unspecified headache type- [facility] [employer] Other Evaluation noteNo [facility] [employer] Other History general Narrative - [facility] [employer] Other Hisrwwr general Narrative - Reported* Type Description Date Medical History irritable bowel syndrome Medical History depression Medical History PROTEINURIA, UNSPECIFIED Medical History HYPOGLYCEMIA Medical History ARTHRALGIA Medical History SHINGLES Medical History ADHD Surgical History ovary removed 2014 Surgical History cholecystectomy Surgical History bilateral fasciitis repair Surgical History bilateral bone spur removal Hospitalization History 1 [facility] Other Hospital course Narrative No data available for this section [facility] Discharge instructions No data available for this section [facility] data available for this section [facility] Summary Purpose Family History No Family History Records FoundNo Family History Records FoundNo Family History Records FoundNo Family History Records Found No data available for this section No data available for this section Advance Directives No Advanced Directives Records FoundNo Advanced Directives Records FoundNo Advanced Directives Records FoundNo Advanced Directives Records Found Additional Source Comments INFORMATION SOURCE (unrecogn ized section and content) DATE CREATED AUTHOR 08/31/2019 [facility] DATE CREATED AUTHOR AUTHOR'S ORGANIZ ATION 03/20/2022 [facility] DATE CREATED AUTHOR AUTHOR'S ORGANIZ ATION 04/18/2023 [facility] DATE CREATED AUTHOR AUTHOR'S ORGANIZ ATION 01/10/2024 [facility] Reason for Visit (unrecogniz ed section and content) Reason Comments Optic nerve edema Patient Care team informatio n (unrecognized section and content) Personnel Name: Melodie Hargrove MD Address: Address: [address] [place] [address] Personnel Name: Melodie Hargrove MD Address: Address: [address] [place] [address] FOR RECORDS PERTAINING TO PATIENTS WHO ARE [...] BE BASED ON THE PRIMARY CLINICAL RECORDS. [employer] [facility] provides no warranty or guarantee of the accuracy or completeness of information in this document.
--- NOTE | 2024-01-28 10:18 | FL_ITS ---
[address] [address] Patient Name: ROSALIE FREEMAN MRN: [id number] date: 1995 Sex: F Assigned Patient Location: [place] Current Patient Location: [place] Accession/Order Number: [id number] Exam Date: 01/28/2024 09:22 Report Date: 01/28/2024 10:46 At the request of: MATTHEW REMY Procedure: FL voiding cystourethrogram EXAM: [place] voiding cystourethrogram HISTORY: recurrent uti N39.0 COMPARISON: None. TECHNIQUE: 500 mL Cysto-Conray was slowly instilled into urinary bladder. FINDINGS: Normal filling of the urinary bladder; no filling defects, diverticula, or wall irregularity. No reflux of contrast into the ureters or kidneys during filling. No reflux of contrast into the ureters or kidney during voiding. Complete emptying of urinary bladder during voiding. FL/ME voiding cystourethrogram IMPRESSION: 1. Normal voiding cystourethrogram. No abnormal findings. 2. Complete emptying of the urinary bladder. Electronically authenticated by: ADRIANA MENDEZ Date: 01/28/2024 10:46
--- NOTE | 2024-01-28 11:09 | SUR.PREOP ---
0958 Began filling bladder with cystoconray via catheter. Total of 500 ml used. Patterson balloon deflated and removed. Pt able to void 100% into bedpan.
== END 2024-01-28 10:25 ==
LOC: FL 09:02
PROVIDERS: Radiology Diagnostic Radiology; PCP Family Medicine; Visit Provider Urology
DX: N39.0 Urinary tract infection, site not specified (principal)
CPT/HCPCS: 74455; Q9958

== ENCOUNTER 2024-03-04 08:30 | Outpatient (OUT) | payer OTHER, SELFPAY ==
--- OUTSIDE RECORDS SUMMARY | 2024-03-04 08:40 | XMS_ITS | CCD ---
Author Organization [facility] Care Team Providers Care Bridge Builder Name Role Phone AVA ANDRESSA Kaur Referring Unavailable MELODIE HARGROVE Primary [...] Unavailable HOY ., DR SEWELL Admkaty Unavailable SAN GERMAN, DR NANDINI Stafford Consulting Unavailable HOY ., DR SEWELL Consulting Unavailable HOY ., DR SEWELL Primary Care Unavailable HOY ., DR SEWELL Attending Unavailable HOY ., DR SEWELL Admkaty Unavailable HOY ., DR SEWELL Consulting Unavailable HOY ., DR SEWELL Primary Care Unavailable HOY ., DR SEWELL Attending Unavailable POLI ., DR SEWELL Admitting Unavailable LEYLA, DR NANDINI Stafford Consulting Unavailable POLI ., DR SEWELL Primary Care Unavailable POLI ., DR SEWELL Attending Unavailable POLI ., DR SEWELL Admitting Unavailable JETHRO GRIFFITH Consulting Unavailable NACHO, JETHRO Attending Unavailable NACHO, JETHRO Admitting Unavailable POLI ., DR SEWELL Primary Care Unavailable PARIS, ELLIS Consulting Unavailable PARIS, ELLIS Attending Unavailable PARIS, ELLIS Admitting Unavailable POLI ., DR SEWELL Primary Care Unavailable Mary GraceTaniya Unavailable Melodie Hargrove Primary Care Physician ELÍAS HOPSON Admitting Unavailable EMILIANA, ELÍAS Barreto Attending Unavailable Yonis MIRANDA Attending Unavailable Melodie Hargrove Referring Unavailable ELÍAS HOPSON Attending Unavailable ELÍAS HOPSON Attending Unavailable Melodie Hargrove Referring Unavailable Dieter SALMON Admitting Unavailable Dieter SALMON Attending Unavailable Dieter SALMON Referring Unavailable Allergies Allergy Classification Reported Allergen(s) Allergy Type Date of Onset Reaction(s) Facility (1 source) [facility] [place]; Translations: [[facility] [place]] Propensity to adverse reactions (disorder) 0 [facility] Repository (3 sources) [facility] Drug allergy Problemsolutions24 [place] [facility] Other (1 source) No Known Medication Allergies; Translations: [No Known Medication Allergies] Propensity to adverse reactions (disorder) [facility] Repository Medications Current Medications Medication Drug Class(es) [...] guanFACINE 3 mg extended release oral tablet (6 sources) Central alpha-2 Adrenergic Agonist Start: 01-19-2024 guanfacine 3 mg oral tablet, extended release Refills(s) 0 Start Date: 01/19/24 Status: Ordered take 1 tablet by mouth once tyrell y guanFACINE HCl ER 3 MG TAKE 1 TABLET BY MOUTH EVERY DAY Oral for 30 Days Active meloxicam 15 mg oral tablet (6 sources) Nonsteroidal Anti-inflammatory Drug Start: 01-15-2024 meloxicam 15 mg T ab 0 Refill(s), Refills(s) 0 Start Date: 01/15/24 Status: Ordered take 1 tablet by joesph th every twenty-four hours Meloxicam 15 MG 1 tablet Orally Once a day Active ondansetron 4 mg oral tablet (3 sources) Serotonin-3 Receptor Antagonist Start: 09-19-2021 take 1 tablet by mouth every six hours ondansetron 4 mg Tab 4 mg = 1 tab(s), Oral, q6hr, Refills(s) 0 Start Date: 09/19/21 Status: Ordered sertraline 100 mg oral tablet (7 sources) Serotonin Reuptake Inhibitor Start: 09-19-2021 take 1 tablet by mouth once daily Zoloft 100 mg Tab 100 mg = 1 tab(s), Oral, Daily, Refills(s) 0 Start Date: 09/19/21 Status: Ordered sulfamethoxazole 400 mg / trimethoprim 80 mg oral tablet (3 sources) Dihydrofolate Reductase Inhibitor Antibacterial, Sulfonamide Antimicrobial Start: 01-19-2024 Bactrim 400 mg-80 mg Tab 1 tab(s), Oral, Daily UTI prevention, 30 tab(s), Refill(s) 3, [facility]/pharmacy #[id number], 180, cm, 01/19/24 9:37:00 EST, Height/Length Dosing, 145.5, kg, 01/19/24 9:37:00 EST, Weight Dosing Start Date: 01/19/24 Status: Ordered Completed/Discontinued Medications Medication Drug Class(es) Dates Sig (Normalized) Sig (Original) cephalexin 500 mg oral capsule (3 sources) Cephalosporin Antibacterial Start: 01-19-2024 Keflex 500 mg Cap 500 mg = 1 cap(s), Oral, As Directed, Pt to take 1 tab the day before procedure and the 2nd tab the day of procedure once completed., # 2 cap(s), Refills(s) 0, Pharmacy: [facility]/pharmacy #[id number], 180, cm, 01/19/24 9:37:00 EST, Height/Length Dosing, 145.5, kg, 01/19/24 9:37:00 EST, Weight Dosing Start Date: 01/19/24 Status: Ordered levonorgestrel 0.150153 mg/hr intrauterine system (3 sources) Progestin, Progestin-containin g Intrauterine Device Start: 09-19-2021 Mirena 52 mg intrauteral device 52 mg = 1 EA, IntraUteral, Once Start Date: 09/19/21 Status: Ordered Problems Active Problems Problem Classification Problem Date Documented Da te Episodic/Chronic Abdominal pain (6 sources) Epigastric pain; Translations: [Right upper quadrant pain] 09-20-2021 Episodic Anxiety disorders (3 sources) Anxiety 09-20-2021 Chronic Biliary tract disease (3 sources) Chronic cholecystitis with calculus 09-30-2021 Episodic Conditions associated with dizziness or vertigo (4 sources) Dizziness and giddiness; Translations: [DIZZINESS AND GIDDINESS] Onset: 3 Episodic Esophageal disorders (11 sources) Gastroesophageal reflux disease; Translations: [Gastro-esophageal reflux disease without esophagitis] Onset: 1 Resolved: 1 Chronic Fluid and electrolyte disorders (1 source) Hypokalemia Episodic Genitourinary symptoms and ill-defined conditions (2 sources) Proteinuria, unspecified Episodic Headache; including migraine (2 sources) Headache; Translations: [Chronic nonintractable headache, unspecified headache type] Episodic Mood disorders (3 sources) Mood disorder 09-19-2021 Chronic Nausea and vomiting (1 source) Nausea; Translations: [NAUSEA] Onset: 3 Episodic Other acquired deformities (3 sources) Scoliosis deformity of spine 09-20-2021 Chronic Other aftercare (1 source) Other halfway (current) drug therapy; Translations: [OTH [facility] CURRENT DRUG THERAPY] Onset: 3 Episodic Other diseases of kidney and ureters (2 sources) Disorder of kidney and ureter, unspecified Episodic Other diseases of kidney and ureters (1 source) Disorder of kidney and/or ureter; Translations: [Disorder of kidney and ureter, unspecified] Onset: 4 Episodic Other diseases of kidney and ureters (3 sources) Kidney lesion 01-19-2024 Episodic Other endocrine disorders (4 sources) Other hypoglycemia; Translations: [OTHER HYPOGLYCEMIA] Onset: 3 Chronic Other gastrointestinal disorders (8 sources) Irritable bowel syndrome; Translations: [Irritable bowel syndrome without diarrhea] Onset: 4 Chronic Other gastrointestinal disorders (3 sources) Irritable bowel syndrome without diarrhea Onset: 1 Resolved: 1 Chronic Other nutritional; endocrine; and metabolic disorders (3 sources) Body mass index 40+ - severely obese 09-20-2021 Chronic Other screening for suspected conditions (not mental disorders or infectious disease) (3 sources) Ultrasonography of biliary tract abnormal 09-20-2021 Episodic Other skin disorders (3 sources) Acne vulgaris 09-20-2021 Episodic Residual codes; unclassified (3 sources) Insomnia 09-20-2021 Episodic Unclassified (3 sources) CONTACT W/AND (SUSP) EXPOS COVID-19; Translations: [CONTACT W/AND (SUSP) EXPOS COVID-19] Onset: 2 Unclassified (1 source) COUGH, UNSPECIFIED; Translations: [COUGH, UNSPECIFIED] Onset: 2 Urinary tract infections (9 sources) Urinary tract infection, site not specified; [...] Test Name Value Interpretation Reference Range Facility Physician Referralon Physician Referral [id number]#1.0 0TIFF Normal [facility] Physician Referralon Physician Referral [id number]#1.0 0TIFF Normal [facility] Consent for Procedure/Surger yon 02-09-2024 Consent for Procedure/Surgery [id number]#1. 00TIFF [facility] Consent for Treatmenton 01-21 Consent for Treatment [id number]#1.0 0TIFF [facility] IntraOperative Documentson 0 02-09-2024 IntraOperative Documents [id number]#1. 00TIFF [facility] Main OR Intraoperative Recor don 02-09-2024 Main OR Intraoperative Record IntraOp Document Type FTURO Summary Primary Physician: Dieter SALMON MD Finalized Date/Time: 02/09/24 08:32:09 Pt. Name: ROSALIE FREEMAN/Sex: 1995 Female Med Rec #: [id number] Physician: Dieter SALMON MD Financial #: [id number] Pt. Type: O Room/Bed: / Admit/Disch: 02/09/24 07:32:51 - Institution: Case Times FTURO Entry 1 Patient Times In Room 02/09/24 08:10:00 Out Room 02/09/24 08:38:00 Procedure Times Start 02/09/24 08:24:00 Stop 02/09/24 08:33:00 Anesthesia Times Last Modified By: Сергей RN, Sangita CHIN 02/09/24 08:31:26 Case Attendance FTURO Entry 1 Entry 2 Entry 3 Case Attendee SALMON MD, Dieter Rushing RN, CNOR, Maryam GRIGSBY, Bianca Quesada Role Performed Surgeon - Primary Flight Control Tower Operator - Primary Scrub - Primary Time In 02/09/24 08:10:00 02/09/24 08:10:00 02/09/24 08:10:00 Time Out 02/09/24 08:38:00 02/09/24 08:38:00 02/09/24 08:38:00 Procedure CYSTOSCOPY LOCAL(.) CYSTOSCOPY LOCAL(.) CYSTOSCOPY LOCAL(.) Comments Last Modified By: Сергей RN, CNOR, Сергей RN, CNOR, Сергей RN, RAYMONDOR, Sangita 02/09/24 Sangita 02/09/24 Sangita 02/09/24 08:31:27 08:31:27 08:31:27 Surgical Procedures FTURO Entry 1 Procedure Description Procedure CYSTOSCOPY LOCAL Modifiers . Surgeon Description CYSTO Primary Procedure Yes Primary Surgeon SANDRITA CLARK, Dieter Mckenzie Start 02/09/24 08:24:00 Stop 02/09/24 08:33:00 Anesthesia Type Local Surgical Service Urology Wound Class 2 - Clean-Contaminated Last Modified By: Сергей VALENZUELA, RAYMONDOR, Sangita 02/09/24 08:31:28 General Case Data FTURO Pre-Care Text: Classifies surgical wound, implements aseptic technique, initiates traffic control Entry 1 Case Information OR URO 1 FT Case Level None Wound Class 2 - Clean-Contaminated Specialty Urology Preop Diagnosis RECURRENT UTI'S Postop Same As Preop No Postop Diagnosis RECURRENT UTI'S, Outcomes Met? Yes Last Modified By: Сергей VALENZUELA, RAYMONDOR, Sangita 02/09/24 08:31:51 Post-Care Text: The patient is free from signs and symptoms of infection EU IntraOp - FTURO Pre-Care Text: Implements protective measures prior to operative or invasive procedure, confirms identity before the operative or invasive procedure, verifies operative procedure, surgical site, and laterality Entry 1 EU Perioperative Protocols Procedure(s) CYSTOSCOPY LOCAL(.) Patient Identity Birthday, ID Band Verified (select at Check, Patient least 2): Participation Consents / H and P HandP, Surgery/Procedure Operative Site N/A Verified Consent Marking Verified Surgical Site Yes Laterality Verified n/a Verified Procedure Verified Yes Correct Patient Yes Position Verified Availability Equipment, Medication Time Out Dieter SALMON MD, Verified (If Participants GIUSEPPE Rushing RN, Applicable) Maryam Qeusada CST, Kimberly A Time Out Complete 02/09/24 08:14:00 Allergies Reviewed? Yes Allergies Reviewed Self/Patient With Body Position Frog Legged Prep Area perineal area Prep Agents Betadine Solution Skin. Condition Unable to Visualize Additional None Specimens Collected Vitals - EU Blood Pressure 146/93 Pulse 45 bpm Respirations 12 br/min SPO2 EBL 0 IandO - EU Total Intake 0 mL Total Output 0 mL Outcomes Met? Yes Last Modified By: GIUSEPPE Rushing RN, Ruthann 02/09/24 08:25:56 Post-Care Text: The patient is free from signs and symptoms of injury caused by extraneous objects Sign Out FTURO Entry 1 Before Patient Leaves OR Nurse verbally Yes Nurse verbally n/a confirms with the confirms with the team the name of team that the procedure(s) instrument, sponge, recorded and needle counts are correct (or N/A) Nurse verbally n/a Nurse verbally n/a confirms with the confirms with the team how the team whether there specimen is labeled are any equipment (including patient problems to be name), if applicable addressed Sign Out Complete 02/09/24 08:34:00 Last Modified By: GIUSEPPE Rushing RN, Ruthann 02/09/24 08:31:40 Case Comments Finalized By: GIUSEPPE Rushing RN, Ruthann Document Signatures Signed By: GIUESPPE Rushing RN, Ruthann 02/09/24 08:32 Normal [facility] Main OR Preoperative Recordo n 02-09-2024 Main OR Preoperative Record Holding Area Document Type FTURO Summary Primary Physician: Dieter SALMON MD Finalized Date/Time: 02/09/24 08:08:52 Pt. Name: ROSALIE FREEMAN/Sex: 1995 Female Med Rec #: [id number] Physician: Dieter SALMON MD Financial #: [id number] Pt. Type: O Room/Bed: / Admit/Disch: 02/09/24 07:32:51 - Institution: Case Times Holding FTURO Pre-Care Text: Verifies consent for planned procedure, identifies individual values and wishes concerning care, includes family members in perioperative teaching Secures patient's records' belongings, and valuables, maintains patient's dignity and privacy, and maintains patient confidentiality Entry 1 In Holding 02/09/24 08:07:00 Outcomes Met? Yes Last Modified By: GIUSEPPE Rushing RN, Ruthann 02/09/24 08:07:32 Post-Care Text: The patient participates in decisions affecting his or her perioperative plan of care The patient's right to privacy is maintained Surgery Checklist FTURO Entry 1 Patient Birthday, ID Band Procedure History and Physical, Identification: Check, Patient Verification: Surgical Consent, With Participation Patient NPO after Midnight: n/a Personal Items: Glasses Personal Items clothes Limitations: none Comment: Complaints of Pain: No Skin Integrity Unable to Visualize Vitals - EU Blood Pressure Pulse Respirations SPO2 Additional None RN Reviewed Yes Specimens Collected Last Modified By: GIUSEPPE Rushing RN, Ruthann 02/09/24 08:08:50 Finalized By: GIUSEPPE Rushing RN, Ruthann Document Signatures Signed By: GIUSEPPE Rushing RN, Ruthann 02/09/24 08:08 Normal [facility] Operative Reporton Operative Report Patient: ASHLEE FREEMAN V Age: 28 years Sex: Female : 1995 Associated Diagnoses: None Author: Dieter SALMON MD Procedure Operative Information Details: Date/ Time: 02/09/2024 08:34:00. Pre-Op Dx: Stress Incontinence - N39.3, Hx of UTI's - Z87.440. Post-Op Dx: Same. Anesthesia Type: Local. Procedure: Local Cystoscopy. Complications: None. Risks/Benefits/Informe d Consent: Surgical risks, benefits, details of the procedure have been explained to the patient, Full informed consent has been obtained. Intraoperative Information Prepped: Patient is brought back to the endoscopy suite, Patient is placed in modified dorso/lithotomy position, Patient prepped in the usual fashion with Betadine solution, 2% Xylocaine Jelly is placed per Urethra, After waiting several minutes the Cystoscope is introduced. The Urethra is: Normal. The Bladder is: Normal, Trabeculated Moderate (2), No bladder tumors. No signs of cystitis.. The ureteral orifices: Show efflux of clear urine. Devices Implanted: None. Removal: Cystoscope is removed, The patient tolerated it well. Postoperative Information Discharge: Patient is discharged home with antibiotic coverage, Follow up arranged. She will focus on getting control of her irregular bowel movements. She will consult with her family doctor and get on a fiber regimen to help prevent recurrent bouts of diarrhea which most likely is the cause of her recurrent urinary tract infections.. Normal [facility] Comment on above: Result Comment: Elec tronically Signed By: SANDRITA CLARK, Dieter Cardenas\Date and Time Signed: 02/09/24 08:36 EDT Outpatient Surgery Discharge Instructionon 02-09-2024 Outpatient Surgery Discharge Instruction [id number]. 00TIFF [facility] RAD - MISCon 01-29-2024 RAD - MISC [id number]#1.0 0TIFF [facility] C Urineon 01-21-2024 Bacteria identified Cx Nom (U) Microbiology PROCEDURE: Urine Culture [R1] SOURCE: U CleanCatch BODY SITE: COLLECTED DATE/TIME: 01/19/2024 10:53 EST RECEIVED DATE/TIME: 01/19/2024 19:24 EST START DATE/TIME: 01/19/2024 19:24 EST FREE TEXT SOURCE: ELÍAS HOPSON PA-C, PA-C, ELÍAS Barreto FINAL REPORTS Final Report [] Verified Date/Time: 01/21/2024 07:11 EST 5,000 cfu/ml Mixed skin contaminants Performing Locations R1: [facility], [address] [place] [address], [address] , , [facility] Comment on above: Performed By: #### 2 [id number] ####[facility] [address] [place] [address] Lab Reportson 01-21-2024 Lab Reports [id number]#1. 00TIFF [facility] Lab Reports [id number]#1. 00TIFF Normal [facility] Lab Reports [id number]#1. 00TIFF Normal [facility] Lab Reports [id number]#1. 00TIFF Normal [facility] Lab Reports [id number]#1. 00TIFF Normal [facility] Lab Reports [id number]#1. 00TIFF [facility] RAD - CT Reporton 01-21-2024 RAD - [address] Report [id number]#1. 00TIFF [facility] RAD - Ultrasound Reporton RAD - Ultrasound Report [id number]#1. 00TIFF [facility] RAD - Ultrasound Report [id number]#1. 00TIFF [facility] Screenson 01-21-2024 Screens [id number]#1.0 0TIFF [facility] Ambulatory Visit Summaryon 0 01-19-2024 Ambulatory Visit Summary ROSALIE FREEMAN V :1995 Visit Date:01/19/2024 Ambulatory Visit Instructions Your Diagnosis Recurrent UTI Renal lesion Tests Performed Voiding Urethrocystogram XR -- Results Pending -- Please visit your patient portal for your results or contact your primary care physician. Your Care Team Attending Physician - ELÍAS HOPSON PA-C Primary Care Physician - Melodie Hargrove MD Referring Physician - Melodie Hargrove MD This Is Your Medications List sulfamethoxazole-trime thoprim (Bactrim 400 mg-80 mg Tab) Contact prescribing physician if questions or concerns guanfacine (guanfacine 3 mg oral tablet, extended release) levonorgestrel (Mirena 52 mg intrauteral device) meloxicam (meloxicam 15 mg Tab) ondansetron (ondansetron 4 mg Tab) sertraline (Zoloft 100 mg Tab) Procedures Performed Laparoscopic cholecystectomy (10/02/2021), Colonoscopy, Correction of hammer toe, Hallux valgus correction by phalanx osteotomy, Left salpingo-oophorectomy, Plantar fasciotomy. Discharge Vitals Heart Rate (Peripheral) 80 Respiratory Rate 16 Blood Pressure 132/84 Height 180 cm Height 71 in Weight 145.5 kg Weight 320.1 lb BMI 44.91 What to do next You Need to Schedule the Following Appointments Follow Up with ELÍAS HOPSON PA-C, URL When: Where: [address] [facility] [place] [address] Medications What How Much When Instructions New sulfamethoxazole-trime thoprim (Bactrim 400 mg-80 mg Tab) 1 Tablets By Mouth Every day as needed for UTI prevention Refills: 3 Pickup at [facility]/pharmacy #[id number] Unchanged guanfacine (guanfacine 3 mg oral tablet, extended release) Contact prescribing physician if questions or concerns Unchanged levonorgestrel (Mirena 52 mg intrauteral device) 1 Each Intrauteral Once Contact prescribing physician if questions or concerns Unchanged meloxicam (meloxicam 15 mg Tab) 0 Refill(s) Contact prescribing physician if questions or concerns Unchanged ondansetron (ondansetron 4 mg Tab) 1 Tablets By Mouth Every 6 hours Contact prescribing physician if questions or concerns Unchanged sertraline (Zoloft 100 mg Tab) 1 Tablets By Mouth Every day Contact prescribing physician if questions or concerns Pharmacy Information [facility]/pharmacy #[id number]: [address], [place] [phone] Allergies No Known Allergies No Known Medication Allergies Problems Ongoing - Any problem that you are currently receiving treatment for. Abdominal pain, RUQ Abnormal ultrasound of gallbladder Acne vulgaris Anxiety BMI 45.0-49.9, adult Chronic cholecystitis with calculus Epigastric pain GERD (gastroesophageal reflux disease) IBS (irritable bowel syndrome) Insomnia Laryngopharyngeal reflux Mood disorder Recurrent UTI Renal lesion Scoliosis Patient Survey You may receive a survey via text or e-mail asking about your office visit. Please share your experience with us by completing your survey. We appreciate your feedback and thank you for choosing us for your care. Education Materials Urinary Tract Infection, Adult A urinary tract [...] more likely to develop this condition if: ? You have a urinary catheter that stays in place. ? You are not able to control when you urinate or have a bowel movement (incontinence). ? You are female and you: ? Use a spermicide or diaphragm for control. ? Have low estrogen levels. ? Are . ? You have certain genes that increase your risk. ? You are sexually active. ? You take antibiotic medicines. ? You have a condition that causes your flow of urine to slow down, such as: ? An enlarged prostate, if you are male. ? Blockage in your urethra. ? A kidney stone. ? A nerve condition that affects your bladder control (neurogenic bladder). ? Not getting enough to drink, or not urinating often. ? You have certain medical conditions, such as: ? Diabetes. ? A weak disease-fighting system (immunesystem). ? Sickle cell disease. ? Gout. ? Spinal cord injury. What are the signs or symptoms? Symptoms of this condition include: ? Needing to urinate right away (urgency). ? Frequent urination. This may include small amounts of urine each time you urinate. ? Pain or burning with urination. ? Blood in the urine. ? Urine that smells bad or unusual. ? Trouble urinati (more content not included)... Normal [facility] Patient Educationon 01-19-20 Patient Education Obstetrics and Gynecology Urinary Tract Infection, Adult A urinary tract [...] more likely to develop this condition if: ? You have a urinary catheter that stays in place. ? You are not able to control when you urinate or have a bowel movement (incontinence). ? You are female and you: ? Use a spermicide or diaphragm for control. ? Have low estrogen levels. ? Are . ? You have certain genes that increase your risk. ? You are sexually active. ? You take antibiotic medicines. ? You have a condition that causes your flow of urine to slow down, such as: ? An enlarged prostate, if you are male. ? Blockage in your urethra. ? A kidney stone. ? A nerve condition that affects your bladder control (neurogenic bladder). ? Not getting enough to drink, or not urinating often. ? You have certain medical conditions, such as: ? Diabetes. ? A weak disease-fighting system (immunesystem). ? Sickle cell disease. ? Gout. ? Spinal cord injury. What are the signs or symptoms? Symptoms of this condition include: ? Needing to urinate right away (urgency). ? Frequent urination. This may include small amounts of urine each time you urinate. ? Pain or burning with urination. ? Blood in the urine. ? Urine that smells bad or unusual. ? Trouble urinating. ? Cloudy urine. ? Vaginal discharge, if you are female. ? Pain in the abdomen or the lower back. You may also have: ? Vomiting or a decreased appetite. ? Confusion. ? Irritability or tiredness. ? A fever or chills. ? Diarrhea. The first symptom in older adults may be confusion. In some cases, they may not have any symptoms until the infection has worsened. How is this diagnosed? This condition is diagnosed based on your medical history and a physical exam. You may also have other tests, including: ? Urine tests. ? Blood tests. ? Tests for STIs (sexually transmitted infections). If you have had more than one UTI, a cystoscopy or imaging studies may be done to determine the cause of the infections. How is this treated? Treatment for this condition includes: ? Antibiotic medicine. ? Hlfv-gcc-ojmatkz medicines to treat discomfort. ? Drinking enough water to stay hydrated. If [...] medicines. Follow these instructions at home: Medicines ? Take jgdg-yas-gybodyx and prescription medicines only as told by your health care provider. ? If you were prescribed an antibiotic medicine, take it as told by your health care provider. Do not stop using the antibiotic even if you start to feel better. General instructions ? Make sure you: ? Empty your bladder often and completely. Do not hold urine for long periods of time. ? Empty your bladder after sex. ? Wipe from front to back after urinating or having a bowel movement if you are female. Use each tissue only one time when you wipe. ? Drink enough fluid to keep your urine pale yellow. ? Keep all follow-up visits. This is important. Contact a health care provider if: ? Your symptoms do not get better after 1?2 days. ? Your symptoms go away and then return. Get help right away if: ? You have severe pain in your back or your lower abdomen. ? You have a fever or chills. ? You have nausea or vomiting. Summary ? A urinary tract infection (UTI) is an infection of any part of the urinary tract, which includes the kidneys, ureters, bladder, and urethra. ? Most urinary tract infections are caused by bacteria in your genital area. ? Treatment for this condition often includes antibiotic medicines. ? If you were prescribed an antibiotic medicine, take it as told by your health care provider. Do not stop using the antibiotic even if you start to feel better. ? Keep all follow-up visits. This is important. This information is not intended to replace advice given to you by your health care provider. Make sure you discuss any questions you have with your health care provider. Document Revised: 06/21/2021 Document Revie (more content not included)... Normal [facility] BNPon 04-17-2023 Natriuretic peptide B (Bld) [Mass/Vol] 246.0 pg/mL Normal <=450.0 [facility] Comment on above: Performed By: #### I NSULIN #### [facility] [address] [place] [address] Dr. Saray Souza CARDIAC NELI ADMITon 023 CK [Catalytic activity/Vol] 47 U/L Normal 26-192 [facility] Comment on above: Performed By: #### I NSULIN #### [facility] [address] [place] [address] Dr. Saray Souza CK.MB [Mass/Vol] 1.02 ng/mL Normal <=3.60 [facility] Comment on above: Performed By: #### I NSULIN #### [facility] [address] [place] [address] Dr. Saray Souza HSTROP 4.5 pg/mL Normal 4.0-51.3 [facility] Comment on above: Result Comment: CUT- OFF POINTS HAVE BEEN ESTABLISHED BASED ON THE FOURTH UNIVERSAL DEFINITIONS OF MYOCARDIAL INFARCTION. THE UPPER REFERENCE LIMIT (URL) OF TROPONIN, DEFINED THE 99TH PERCENTILE OF cTnI DISTRIBUTION IN A REFERENCE POPULATION, HAS BEEN CONFIRMED THE DECISION THRESHOLD FOR MN DIAGNOSIS. Performed By: #### I NSULIN #### [facility] [address] [place] [address] Dr. Saray Souza FRANKLIN 36 ng/mL Normal 9-82 [facility] Comment on above: Performed By: #### I CURLYULIN #### [facility] [address] [place] [address] Dr. Saray Souza CBC W MANUAL DIFFon 04-17-20 23 ATYPICAL LYMPH # Normal [facility] Comment on above: Performed By: #### C BCMAN #### [facility] [address] [place] [address] Dr. Saray Souza ATYPICAL LYMPH % Normal [facility] Comment on above: Performed By: #### C BCMAN #### [facility] [address] [place] [address] Dr. Saray Souza BAND # 0.3 103/ul Normal 0.0-0.3 [facility] Comment on above: Performed By: #### C BCPRESLEY #### [facility] [address] [place] [address] Dr. Saray Souza BAND % 1 % Normal 0-5 [facility] Comment on above: Performed By: #### C EDGARDO #### [facility] [address] [place] [address] Dr. Saray Souza BASOM # 0.00 103/ul Normal 0.00-0.10 [facility] Comment on above: Performed By: #### C BCPRESLEY #### [facility] [address] [place] [address] Dr. Saray Souza BASOM % 0.0 % Critically low 0.2-2.0 [facility] Comment on above: Performed By: #### C EDGARDO #### [facility] [address] [place] [address] Dr. Saray Souza BLAST # Normal [facility] Comment on above: Performed By: #### C EDGARDO #### [facility] [address] [place] [address] Dr. Saray Souza BLAST % Normal [facility] Comment on above: Performed By: #### C EDGARDO #### [facility] [address] [place] [address] Dr. Saray Souza CORRECTED WBC Normal 4.0-11.0 [facility] Comment on above: Performed By: #### C EDGARDO #### [facility] [address] [place] [address] Dr. Saray Souza EOS # 0.00 103/ul Normal 0.00-0.70 [facility] Comment on above: Performed By: #### C EDGARDO #### [facility] [address] [place] [address] Dr. Saray Souza EOS% 0.0 % Critically low 0.9-7.0 [facility] Comment on above: Performed By: #### C EDGARDO #### [facility] [address] [place] [address] Dr. Saray Souza HCT 43.6 % Normal 36.0-48.0 [facility] Comment on above: Performed By: #### C EDGARDO #### [facility] [address] [address] [address] Saray Souza HGB 14.7 g/dl Normal 12.0-16.0 [facility] Comment on above: Performed By: #### C EDGARDO #### [facility] [address] [address] [address] Saray Souza LYMPHM # 1.55 103/ul Normal 1.20-3.80 [facility] Comment on above: Performed By: #### C EDGARDO #### [facility] [address] [address] [address] Saray Souza LYMPHM% 6.0 % Critically low 20.5-60.0 [facility] Comment on above: Performed By: #### C EDGARDO #### [facility] [address] [place] [address] Dr. Saray Souza MCH 30.3 pg Normal 26.7-34.0 [facility] Comment on above: Performed By: #### C EDGARDO #### [facility] [address] [place] [address] Dr. Saray Souza MCHC 33.7 g/dl Normal 29.9-35.2 [facility] Comment on above: Performed By: #### C EDGARDO #### [facility] [address] [place] [address] Dr. Saray Souza MCV 89.9 fL Normal 81.0-99.0 [facility] Comment on above: Performed By: #### C EDGARDO #### [facility] [address] [place] [address] Dr. Saray Souza METAMYELOCYTE # Normal [facility] Comment on above: Performed By: #### C EDGARDO #### [facility] [address] [place] [address] Dr. Saray Souza METAMYELOCYTE % Normal [facility] Comment on above: Performed By: #### C EDGARDO #### [facility] [address] [place] [address] Dr. Saray Souza MONOM# 2.06 103/ul Critically high 0.30-0.80 [facility] Comment on above: Performed By: #### C EDGARDO #### [facility] [address] [place] [address] Dr. Saray Souza MONOM% 8.0 % Normal 1.7-12.0 [facility] Comment on above: Performed By: #### C EDGARDO #### [facility] [address] [place] [address] Dr. Saray Souza MPV 8.8 fL Critically low 9.5-13.5 [facility] Comment on above: Performed By: #### C EDGARDO #### [facility] [address] [place] [address] Dr. Saray Souza MYELOCYTE # Normal [facility] Comment on above: Performed By: #### C EDGARDO #### [facility] [address] [place] [address] Dr. Saray Souza MYELOCYTE % Normal [facility] Comment on above: Performed By: #### C EDGARDO #### [facility] [address] [place] [address] Dr. Saray Souza NRBC Normal [facility] Comment on above: Performed By: #### C EDGARDO #### [facility] [address] [place] [address] Dr. Saray Souza PLT 397 103/ul Normal 150-450 [facility] Comment on above: Performed By: #### C EDGARDO #### [facility] [address] [place] [address] Dr. Saray Souza RBC 4.85 106/ul Normal 4.20-5.40 [facility] Comment on above: Performed By: #### C EDGARDO #### [facility] [address] [place] [address] Dr. Saray Souza RDW 12.0 % Normal 11.0-15.0 [facility] Comment on above: Performed By: #### C EDGARDO #### [facility] [address] [place] [address] Dr. Saray Souza SEG # 21.93 103/ul Critically high 1.40-6.50 [facility] Comment on above: Performed By: #### C BCMAN #### [facility] [address] [place] [address] Dr. Saray Souza SEG % 85.0 % Critically high 43.0-75.0 [facility] Comment on above: Performed By: #### C BCMAN #### [facility] [address] [place] [address] Dr. Saray Souza WBC 25.8 103/ul Critically high 4.0-11.0 [facility] Comment on above: Performed By: #### C BCMAN #### [facility] [address] [place] [address] Dr. Saray Souza CULTURE URINEon 04-17-2023 CULTURE URINE Culture Observations : LORENZO TO FOLLOW. Isolate 1 Enterococcus faecalis 20,000 cfu/mL of Normal [facility] Comment on above: Performed By: #### C BC #### [facility] [address] [place] [address] Dr. Saray Souza ER URINE PROFILEon 3 Bilirubin Ql (U) Negative Normal NEGATIVE [facility] Comment on above: Performed By: #### C BC #### [facility] [address] [place] [address] Dr. Saray Souza Clarity (U) CLEAR Normal CLEAR [facility] Comment on above: Performed By: #### C BC #### [facility] [address] [place] [address] Dr. Saray Souza Color (U) LT. YELLOW Normal YELLOW [facility] Comment on above: Performed By: #### C BC #### [facility] [address] [place] [address] Dr. Saray Souza ERUAHD A micrscopic examination will be performed if indicated. Normal [facility] Comment on above: Performed By: #### C BC #### [facility] [address] [place] [address] Dr. Saray Souza Glucose Ql (U) Negative Normal NEGATIVE [facility] Comment on above: Performed By: #### C BC #### [facility] [address] [place] [address] Dr. Saray Souza Hemoglobin Ql (U) Negative Normal NEGATIVE [facility] Comment on above: Performed By: #### C BC #### [facility] [address] [place] [address] Dr. Saray Souza Ketones Ql (U) Negative Normal NEGATIVE [facility] Comment on above: Performed By: #### C BC #### [facility] [address] [place] [address] Dr. Saray Souza LEUKOCYTES SMALL Abnormal NEGATIVE [facility] Comment on above: Performed By: #### C BC #### [facility] [address] [place] [address] Dr. Saray Souza Nitrite Ql (U) Negative Normal NEGATIVE [facility] Comment on above: Performed By: #### C BC #### [facility] [address] [place] [address] Dr. Saray Souza pH (U) 6.5 [pH] Normal 5-9 [facility] Comment on above: Performed By: #### C BC #### [facility] [address] [place] [address] Dr. Saray Souza SPEC GRAVITY 1.025 Normal 1.005-<=1.025 [facility] Comment on above: Performed By: #### C BC #### [facility] [address] [place] [address] Dr. Saray Souza UA PROTEIN Negative Normal NEGATIVE/ TRACE [facility] Comment on above: Performed By: #### C BC #### [facility] [address] [place] [address] Dr. Saray Souza UR MICRO IND INDICATED Normal [facility] Comment on above: Performed By: #### C BC #### [facility] [address] [place] [address] Dr. Saray Souza Urobilinogen Qn (U) 0.2 {Janine'U}/dL Normal 0.2 - 1. 0 [facility] Comment on above: Performed By: #### C BC #### [facility] [address] [place] [address] Dr. Saray Souza URon 04-17-2023 , QUAL Negative Normal NEGATIVE [facility] Comment on above: Performed By: #### C BC #### [facility] [address] [place] [address] Dr. Saray Souza PROF 14(COMP METB)on 023 Albumin [Mass/Vol] 3.0 g/dL Critically low 3.4-5.0 [facility] Comment on above: Performed By: #### I NSULIN #### [facility] [address] [place] [address] Dr. Saray Souza Albumin/Globulin [Mass ratio] 0.9 {ratio} Normal [facility] Comment on above: Performed By: #### I NSULIN #### [facility] [address] [place] [address] Dr. Saray Souza ALP [Catalytic activity/Vol] 54 U/L Normal 46-116 [facility] Comment on above: Performed By: #### I NSULIN #### [facility] [address] [place] [address] Dr. Saray Souza ALT [Catalytic activity/Vol] 27 U/L Normal 14-59 [facility] Comment on above: Performed By: #### I NSULIN #### [facility] [address] [place] [address] Dr. Saray Souza Anion gap [Moles/Vol] 12.9 mmol/L Normal [facility] Comment on above: Performed By: #### I NSULIN #### [facility] [address] [place] [address] Dr. Saray Souza AST [Catalytic activity/Vol] 12 U/L Critically low 15-37 [facility] Comment on above: Performed By: #### I NSULIN #### [facility] [address] [place] [address] Dr. Saray Souza Bilirubin [Mass/Vol] 0.3 mg/dL Normal 0.2-1.0 [facility] Comment on above: Performed By: #### I NSULIN #### [facility] [address] [place] [address] Dr. Saray Souza Calcium [Mass/Vol] 8.1 mg/dL Critically low 8.5-10.1 [facility] Comment on above: Performed By: #### I NSULIN #### [facility] [address] [place] [address] Dr. Saray Souza Chloride [Moles/Vol] 102 mmol/L Normal 98-107 [facility] Comment on above: Performed By: #### I NSULIN #### [facility] [address] [address] [address] Saray Souza CO2 [Moles/Vol] 26.2 mmol/L Normal 21.0-32.0 [facility] Comment on above: Performed By: #### I NSULIN #### [facility] [address] [place] [address] Dr. Saray Souza Creatinine [Mass/Vol] 0.87 mg/dL Normal 0.55-1.02 [facility] Comment on above: Performed By: #### I NSULIN #### [facility] [address] [place] [address] Dr. Saray Souza EGFR-AF MONTENEGRIN >60 Normal >=60 [facility] Comment on above: Performed By: #### I NSULIN #### [facility] [address] [place] [address] Dr. Saray Souza EGFR-NON AF MONTENEGRIN >60 Normal >=60 [facility] Comment on above: Performed By: #### I NSULIN #### [facility] [address] [place] [address] Dr. Saray Souza Globulin (S) [Mass/Vol] 3.2 g/dL Normal [facility] Comment on above: Performed By: #### I NSULIN #### [facility] [address] [address] [address] Saray Souza Glucose [Mass/Vol] 206 mg/dL Critically high 74-106 [facility] Comment on above: Performed By: #### I NSULIN #### [facility] [address] [place] [address] Dr. Saray Souza Potassium [Moles/Vol] 4.1 mmol/L Normal 3.5-5.1 [facility] Comment on above: Performed By: #### I NSULIN #### [facility] [address] [address] [address] Saray Souza Protein [Mass/Vol] 6.2 g/dL Critically low 6.4-8.2 Th [facility] Comment on above: Performed By: #### I NSULIN #### [facility] [address] [place] [address] Dr. Saray Souza Sodium [Moles/Vol] 137 mmol/L Normal 136-145 [facility] Comment on above: Performed By: #### I NSULIN #### [facility] [address] [place] [address] Dr. Saray Souza Urea nitrogen [Mass/Vol] 19.0 mg/dL Critically high 7.0-18.0 [facility] Comment on above: Performed By: #### I NSULIN #### [facility] [address] [place] [address] Dr. Saray Souza Urea nitrogen/Creatinine [Mass ratio] 21.8 mg/mg Normal [facility] Comment on above: Performed By: #### I NSULIN #### [facility] [address] [place] [address] Dr. Saray Souza TSHon 04-17-2023 TSH 0.553 uIU/mL Normal 0.358-3.740 [facility] Comment on above: Performed By: #### I NSULIN #### [facility] [address] [place] [address] Dr. Saray Souza URINE MICROSCOPIC ONLYon BACTERIA TRACE Abnormal NONE SEEN [facility] Comment on above: Performed By: #### C BC #### [facility] [address] [place] [address] Dr. Saray Souza Bacteria identified Cx Nom (U) INDICATED Normal [facility] Comment on above: Performed By: #### C BC #### [facility] [address] [place] [address] Dr. Saray Souza CAST NONE SEEN Normal NONE SEEN [facility] Comment on above: Performed By: #### C BC #### [facility] [address] [address] [address] Saray Souza Crystals LM Nom (Urine sed) NONE SEEN Normal NONE SEEN [facility] Comment on above: Performed By: #### C BC #### [facility] [address] [place] [address] Dr. Saray Souza Epithelial cells LM Ql (Urine sed) RARE Normal NONE SEEN /RARE [facility] Comment on above: Performed By: #### C BC #### [facility] [address] [place] [address] Dr. Saray Souza MUCOUS NONE SEEN Normal NONE SEEN [facility] Comment on above: Performed By: #### C BC #### [facility] [address] [place] [address] Dr. Saray Souza RBC 0-2 Normal 0-2 [facility] Comment on above: Performed By: #### C BC #### [facility] [address] [place] [address] Dr. Saray Souza WBC 5-10 Abnormal NONE SEEN [facility] Comment on above: Performed By: #### C BC #### [facility] [address] [place] [address] Dr. Saray Souza XR CHEST 2 Von [...] CAROL RAMIREZ Date: 2023-04-17 10:45 Normal [facility] INSULINon 04-07-2023 Insulin 11.3 uIU/mL Normal 2.6-24.9 [facility] Comment on above: Performed By: #### I NSULIN #### [facility] [address] [place] [address] Dr. Saray Souza US KIDNEYS BLADDERon 04-04- 023 US KIDNEYS BLADDER EXAMINATION: US KIDNEYS [...] NANDINI MAYER Date: 2023-04-04 08:22 Normal [facility] INSULINon 04-02-2023 Insulin 37.5 uIU/mL Critically high 2.6-24.9 [facility] Comment on above: Performed By: #### I NSULIN #### [facility] [address] [place] [address] Dr. Saray Souza CBC AUTO DIFFon 04-01-2023 BASO # 0.0 103/ul Normal 0.0-0.1 [facility] Comment on above: Performed By: #### C BC #### [facility] [address] [place] [address] Dr. Saray Souza Basophils/100 WBC (Bld) 0.5 % Normal 0.2-2.0 [facility] Comment on above: Performed By: #### C BC #### [facility] [address] [address] [address] Saray Souza EO # 0.2 103/ul Normal 0.0-0.7 [facility] Comment on above: Performed By: #### C BC #### [facility] [address] [place] [address] Dr. Saray Souza Eosinophils/100 WBC (Bld) 2.3 % Normal 0.9-7.0 [facility] Comment on above: Performed By: #### C BC #### [facility] [address] [address] [address] Saray Souza Erythrocyte distribution width (RBC) [Ratio] 11.9 % Normal 11.0-15.0 [facility] Comment on above: Performed By: #### C BC #### [facility] [address] [place] [address] Dr. Saray Souza Hematocrit (Bld) [Volume fraction] 42.2 % Normal 36.0-48.0 [facility] Comment on above: Performed By: #### C BC #### [facility] [address] [place] [address] Dr. Saray Souza Hemoglobin (Bld) [Mass/Vol] 13.7 g/dL Normal 12.0-16.0 [facility] Comment on above: Performed By: #### C BC #### [facility] [address] [place] [address] Dr. Saray Souza IG # 0.02 10e3/ul Normal 0.00-0.03 [facility] Comment on above: Performed By: #### C BC #### [facility] [address] [place] [address] Dr. Saray Souza IG % 0.3 % Normal 0.0-0.5 [facility] Comment on above: Performed By: #### C BC #### [facility] [address] [place] [address] Dr. Saray Souza LYMPH # 1.6 103/ul Normal 1.2-3.8 [facility] Comment on above: Performed By: #### C BC #### [facility] [address] [place] [address] Dr. Saray Souza Lymphocytes/100 WBC (Bld) 21.5 % Normal 20.5-60.0 [facility] Comment on above: Performed By: #### C BC #### [facility] [address] [place] [address] Dr. Saray Souza MANUAL DIFF REQ NO Normal [facility] Comment on above: Performed By: #### C BC #### [facility] [address] [place] [address] Dr. Saray Souza MCH (RBC) [Entitic mass] 30.0 pg Normal 26.7-34.0 [facility] Comment on above: Performed By: #### C BC #### [facility] [address] [place] [address] Dr. Saray Souza MCHC (RBC) [Mass/Vol] 32.5 g/dL Normal 29.9-35.2 [facility] Comment on above: Performed By: #### C BC #### [facility] [address] [place] [address] Dr. Saray Souza MCV (RBC) [Entitic vol] 92.5 fL Normal 81.0-99.0 [facility] Comment on above: Performed By: #### C BC #### [facility] [address] [place] [address] Dr. Saray Souza MONO # 0.7 103/ul Normal 0.3-0.8 [facility] Comment on above: Performed By: #### C BC #### [facility] [address] [place] [address] Dr. Saray Souza Monocytes/100 WBC (Bld) 9.6 % Normal 1.7-12.0 [facility] Comment on above: Performed By: #### C BC #### [facility] [address] [place] [address] Dr. Saray Souza NEUT # 5.0 103/ul Normal 1.4-6.5 [facility] Comment on above: Performed By: #### C BC #### [facility] [address] [place] [address] Dr. Saray Souza Neutrophils/100 WBC (Bld) 65.8 % Normal 43.0-75.0 [facility] Comment on above: Performed By: #### C BC #### [facility] [address] [place] [address] Dr. Saray Souza Platelet mean volume (Bld) [Entitic vol] 8.9 fL Critically low 9.5-13.5 [facility] Comment on above: Performed By: #### C BC #### [facility] [address] [place] [address] Dr. Saray Souza PLT 293 103/ul Normal 150-450 [facility] Comment on above: Performed By: #### C BC #### [facility] [address] [place] [address] Dr. Saray Souza RBC 4.56 106/ul Normal 4.20-5.40 [facility] Comment on above: Performed By: #### C BC #### [facility] [address] [place] [address] Dr. Saray Souza WBC 7.5 103/ul Normal 4.0-11.0 [facility] Comment on above: Performed By: #### C BC #### [facility] [address] [place] [address] Dr. Saray Souza CULTURE URINEon 04-01-2023 CULTURE URINE Culture Observations : MODERATE GROWTH OF MIXED GENITAL CARMELO. NO POTENTIAL PATHOGENS SEEN. Normal [facility] Comment on above: Performed By: #### C BC #### [facility] [address] [place] [address] Dr. Saray Souza FREE THYROXINE INDEX T7on FTI 2.51 Normal 1.30-4.50 [facility] Comment on above: Performed By: #### I NSULIN #### [facility] [address] [place] [address] Dr. Saray Souza T3U 33.0 % Normal 30.0-39.0 [facility] Comment on above: Performed By: #### I NSULIN #### [facility] [address] [place] [address] Dr. Saray Souza T4 [Mass/Vol] 7.60 ug/dL Normal 4.80-13.[address] [facility] Comment on above: Performed By: #### I NSULIN #### [facility] [address] [place] [address] Dr. Saray Souza IRONon 04-01-2023 Iron [Mass/Vol] 151.0 ug/dL Normal 50.0-170.0 The [facility] Comment on above: Performed By: #### C BCMAN #### [facility] [address] [address] [address] Saray Souza PROF 14(COMP METB)on 023 Albumin [Mass/Vol] 3.7 g/dL Normal 3.4-5.0 [facility] Comment on above: Performed By: #### C EDGARDO #### [facility] [address] [address] [address] Saray Souza Albumin/Globulin [Mass ratio] 1.1 {ratio} Normal [facility] Comment on above: Performed By: #### C EDGARDO #### [facility] [address] [address] [address] Saray Souza ALP [Catalytic activity/Vol] 81 U/L Normal 46-116 [facility] Comment on above: Performed By: #### C EDGARDO #### [facility] [address] [place] [address] Dr. Saray Souza ALT [Catalytic activity/Vol] 33 U/L Normal 14-59 [facility] Comment on above: Performed By: #### C EDGARDO #### [facility] [address] [place] [address] Dr. Saray Souza Anion gap [Moles/Vol] 10.2 mmol/L Normal [facility] Comment on above: Performed By: #### C EDGARDO #### [facility] [address] [place] [address] Dr. Saray Souza AST [Catalytic activity/Vol] 22 U/L Normal 15-37 [facility] Comment on above: Performed By: #### C BCMAN #### [facility] [address] [place] [address] Dr. Saray Souza Bilirubin [Mass/Vol] 0.3 mg/dL Normal 0.2-1.0 [facility] Comment on above: Performed By: #### C BCMAN #### [facility] [address] [address] [address] Saray Souza Calcium [Mass/Vol] 8.6 mg/dL Normal 8.5-10.1 The [facility] Comment on above: Performed By: #### C DAVIDPRESLEY #### [facility] [address] [address] [address] Saray Souza Chloride [Moles/Vol] 105 mmol/L Normal 98-107 [facility] Comment on above: Performed By: #### C BCPRESLEY #### [facility] [address] [address] [address] Saray Souza CO2 [Moles/Vol] 30.4 mmol/L Normal 21.0-32.0 [facility] Comment on above: Performed By: #### C BCPRESLEY #### [facility] [address] [address] [address] Saray Souza Creatinine [Mass/Vol] 0.72 mg/dL Normal 0.55-1.02 [facility] Comment on above: Performed By: #### C EDGARDO #### [facility] [address] [place] [address] Dr. Saray Souza EGFR-AF MONTENEGRIN >60 Normal >=60 [facility] Comment on above: Performed By: #### C BCPRESLEY #### [facility] [address] [place] [address] Dr. Saray Souza EGFR-NON AF MONTENEGRIN >60 Normal >=60 [facility] Comment on above: Performed By: #### C EDGARDO #### [facility] [address] [place] [address] Dr. Saray Souza Globulin (S) [Mass/Vol] 3.5 g/dL Normal [facility] Comment on above: Performed By: #### C BCPRESLEY #### [facility] [address] [address] [address] Saray Souza Glucose [Mass/Vol] 89 mg/dL Normal 74-106 [facility] Comment on above: Performed By: #### C BCPRESLEY #### [facility] [address] [address] [address] Saray Souza Potassium [Moles/Vol] 3.6 mmol/L Normal 3.5-5.1 [facility] Comment on above: Performed By: #### C EDGARDO #### [facility] [address] [place] [address] Dr. Saray Souza Protein [Mass/Vol] 7.2 g/dL Normal 6.4-8.2 [facility] Comment on above: Performed By: #### C EDGARDO #### [facility] [address] [place] [address] Dr. Saray Souza Sodium [Moles/Vol] 142 mmol/L Normal 136-145 [facility] Comment on above: Performed By: #### C EDGARDO #### [facility] [address] [place] [address] Dr. Saray Souza Urea nitrogen [Mass/Vol] 12.0 mg/dL Normal 7.0-18.0 [facility] Comment on above: Performed By: #### C EDGARDO #### [facility] [address] [place] [address] Dr. Saray Souza Urea nitrogen/Creatinine [Mass ratio] 16.7 mg/mg Normal [facility] Comment on above: Performed By: #### C EDGARDO #### [facility] [address] [place] [address] Dr. Saray Souza TSHon 04-01-2023 TSH 1.708 uIU/mL Normal 0.358-3.[address] [facility] Comment on above: Performed By: #### I ANA #### [facility] [address] [place] [address] Dr. Saray Souza UA RANDOM W/MICROSCOPICon BACTERIA SMALL Abnormal NONE SEEN [facility] Comment on above: Performed By: #### I CURLYULIN #### [facility] [address] [place] [address] Dr. Saray Souza Bilirubin Ql (U) Negative Normal NEGATIVE [facility] Comment on above: Performed By: #### I CURLYULIN #### [facility] [address] [place] [address] Dr. Saray Souza CAST NONE SEEN Normal NONE SEEN [facility] Comment on above: Performed By: #### I CURLYULIN #### [facility] [address] [place] [address] Dr. Saray Souza Clarity (U) CLEAR Normal CLEAR [facility] Comment on above: Performed By: #### I NSULIN #### [facility] [address] [place] [address] Dr. Saray Souza Color (U) YELLOW Normal YELLOW [facility] Comment on above: Performed By: #### I NSULIN #### [facility] [address] [place] [address] Dr. Saray Souza Crystals LM Nom (Urine sed) NONE SEEN Normal NONE SEEN [facility] Comment on above: Performed By: #### I NSULIN #### [facility] [address] [place] [address] Dr. Saray Souza Epithelial cells LM Ql (Urine sed) FEW Abnormal NONE SEEN /RARE [facility] Comment on above: Performed By: #### I NSULIN #### [facility] [address] [place] [address] Dr. Saray Souza Glucose Ql (U) Negative Normal NEGATIVE [facility] Comment on above: Performed By: #### I NSULIN #### [facility] [address] [place] [address] Dr. Saray Souza Hemoglobin Ql (U) Negative Normal NEGATIVE [facility] Comment on above: Performed By: #### I NSULIN #### [facility] [address] [place] [address] Dr. Saray Souza Ketones Ql (U) TRACE Abnormal NEGATIVE [facility] Comment on above: Performed By: #### I NSULIN #### [facility] [address] [place] [address] Dr. Saray Souza LEUKOCYTES SMALL Abnormal NEGATIVE [facility] Comment on above: Performed By: #### I NSULIN #### [facility] [address] [place] [address] Dr. Saray Souza MUCOUS NONE SEEN Normal NONE SEEN [facility] Comment on above: Performed By: #### I NSULIN #### [facility] [address] [place] [address] Dr. Saray Souza Nitrite Ql (U) Negative Normal NEGATIVE [facility] Comment on above: Performed By: #### I NSULIN #### [facility] [address] [place] [address] Dr. Saray Souza pH (U) 5.5 [pH] Normal 5-9 [facility] Comment on above: Performed By: #### I NSULIN #### [facility] [address] [place] [address] Dr. Saray Souza RBC 0-2 Normal 0-2 [facility] Comment on above: Performed By: #### I NSULIN #### [facility] [address] [place] [address] Dr. Saray Souza SPEC GRAVITY >=1.030 Abnormal 1.005-<=1.025 The [facility] Comment on above: Performed By: #### I NSULIN #### [facility] [address] [place] [address] Dr. Saray Souza UA PROTEIN Negative Normal NEGATIVE/ TRACE [facility] Comment on above: Performed By: #### I NSULIN #### [facility] [address] [place] [address] Dr. Saray Souza Urobilinogen Qn (U) 0.2 {Janine'U}/dL Normal 0.2 - 1. 0 [facility] Comment on above: Performed By: #### I NSULIN #### [facility] [address] [place] [address] Dr. Saray Souza WBC 5-10 Abnormal NONE SEEN [facility] Comment on above: Performed By: #### I NSULIN #### [facility] [address] [place] [address] Dr. Saray Souza INSULINon 02-14-2023 Insulin 12.8 uIU/mL Normal 2.6-24.9 [facility] Comment on above: Performed By: #### C BC #### [facility] [address] [place] [address] Dr. Saray Souza CBC AUTO DIFFon 02-13-2023 BASO # 0.0 103/ul Normal 0.0-0.1 [facility] Comment on above: Performed By: #### C BC #### [facility] [address] [place] [address] Dr. Saray Souza Basophils/100 WBC (Bld) 0.4 % Normal 0.2-2.0 [facility] Comment on above: Performed By: #### C BC #### [facility] [address] [place] [address] Dr. Saray Souza EO # 0.1 103/ul Normal 0.0-0.7 [facility] Comment on above: Performed By: #### C BC #### [facility] [address] [place] [address] Dr. Saray Souza Eosinophils/100 WBC (Bld) 1.6 % Normal 0.9-7.0 [facility] Comment on above: Performed By: #### C BC #### [facility] [address] [place] [address] Dr. Saray Souza Erythrocyte distribution width (RBC) [Ratio] 11.9 % Normal 11.0-15.0 [facility] Comment on above: Performed By: #### C BC #### [facility] [address] [place] [address] Dr. Saray Souza Hematocrit (Bld) [Volume fraction] 41.9 % Normal 36.0-48.0 [facility] Comment on above: Performed By: #### C BC #### [facility] [address] [place] [address] Dr. Saray Souza Hemoglobin (Bld) [Mass/Vol] 13.7 g/dL Normal 12.0-16.0 [facility] Comment on above: Performed By: #### C BC #### [facility] [address] [place] [address] Dr. Saray Souza IG # 0.02 10e3/ul Normal 0.00-0.03 [facility] Comment on above: Performed By: #### C BC #### [facility] [address] [place] [address] Dr. Saray Souza IG % 0.3 % Normal 0.0-0.5 [facility] Comment on above: Performed By: #### C BC #### [facility] [address] [place] [address] Dr. Saray oSuza LYMPH # 1.4 103/ul Normal 1.2-3.8 [facility] Comment on above: Performed By: #### C BC #### [facility] [address] [place] [address] Dr. Saray Souza Lymphocytes/100 WBC (Bld) 18.6 % Critically low 20.5-60.0 [facility] Comment on above: Performed By: #### C BC #### [facility] [address] [place] [address] Dr. Saray Souza MANUAL DIFF REQ NO Normal [facility] Comment on above: Performed By: #### C BC #### [facility] [address] [place] [address] Dr. Saray Souza MCH (RBC) [Entitic mass] 29.9 pg Normal 26.7-34.0 [facility] Comment on above: Performed By: #### C BC #### [facility] [address] [place] [address] Dr. Saray Souza MCHC (RBC) [Mass/Vol] 32.7 g/dL Normal 29.9-35.2 [facility] Comment on above: Performed By: #### C BC #### [facility] [address] [place] [address] Dr. Saray Souza MCV (RBC) [Entitic vol] 91.5 fL Normal 81.0-99.0 [facility] Comment on above: Performed By: #### C BC #### [facility] [address] [place] [address] Dr. Saray Souza MONO # 0.6 103/ul Normal 0.3-0.8 [facility] Comment on above: Performed By: #### C BC #### [facility] [address] [place] [address] Dr. Saray Souza Monocytes/100 WBC (Bld) 8.3 % Normal 1.7-12.0 [facility] Comment on above: Performed By: #### C BC #### [facility] [address] [place] [address] Dr. Saray Souza NEUT # 5.5 103/ul Normal 1.4-6.5 [facility] Comment on above: Performed By: #### C BC #### [facility] [address] [address] [address] Saray Souza Neutrophils/100 WBC (Bld) 70.8 % Normal 43.0-75.0 [facility] Comment on above: Performed By: #### C BC #### [facility] [address] [address] [address] Saray Souza Platelet mean volume (Bld) [Entitic vol] 9.0 fL Critically low 9.5-13.5 [facility] Comment on above: Performed By: #### C BC #### [facility] [address] [place] [address] Dr. Saray Souza PLT 271 103/ul Normal 150-450 [facility] Comment on above: Performed By: #### C BC #### [facility] [address] [place] [address] Dr. Saray Souza RBC 4.58 106/ul Normal 4.20-5.40 [facility] Comment on above: Performed By: #### C BC #### [facility] [address] [place] [address] Dr. Saray Souza WBC 7.7 103/ul Normal 4.0-11.0 [facility] Comment on above: Performed By: #### C BC #### [facility] [address] [place] [address] Dr. Saray Souza FREE THYROXINE INDEX T7on FTI 2.56 Normal 1.30-4.50 [facility] Comment on above: Performed By: #### I NSULIN #### [facility] [address] [place] [address] Dr. Saray Souza T3U 36.0 % Normal 30.0-39.0 [facility] Comment on above: Performed By: #### I NSULIN #### [facility] [address] [place] [address] Dr. Saray Souza T4 [Mass/Vol] 7.10 ug/dL Normal 4.80-13.90 [facility] Comment on above: Performed By: #### I NSULIN #### [facility] [address] [place] [address] Dr. Saray Mckinney 02-13-2023 Iron [Mass/Vol] 130.0 ug/dL Normal 50.0-170.0 [facility] Comment on above: Performed By: #### C BCMAN #### [facility] [address] [address] [address] Saray Souza PROF 14(COMP METB)on 023 Albumin [Mass/Vol] 3.8 g/dL Normal 3.4-5.0 [facility] Comment on above: Performed By: #### I NSULIN #### [facility] [address] [place] [address] Dr. Saray Souza Albumin/Globulin [Mass ratio] 1.2 {ratio} Normal [facility] Comment on above: Performed By: #### I NSULIN #### [facility] [address] [place] [address] Dr. Saray Souza ALP [Catalytic activity/Vol] 82 U/L Normal 46-116 [facility] Comment on above: Performed By: #### I NSULIN #### [facility] [address] [place] [address] Dr. Saray Souza ALT [Catalytic activity/Vol] 25 U/L Normal 14-59 [facility] Comment on above: Performed By: #### I NSULIN #### [facility] [address] [place] [address] Dr. Saray Souza Anion gap [Moles/Vol] 12.7 mmol/L Normal [facility] Comment on above: Performed By: #### I NSULIN #### [facility] [address] [place] [address] Dr. Saray Souza AST [Catalytic activity/Vol] 19 U/L Normal 15-37 [facility] Comment on above: Performed By: #### I NSULIN #### [facility] [address] [place] [address] Dr. Saray Souza Bilirubin [Mass/Vol] 0.3 mg/dL Normal 0.2-1.0 [facility] Comment on above: Performed By: #### I NSULIN #### [facility] [address] [address] [address] Saray Souza Calcium [Mass/Vol] 8.8 mg/dL Normal 8.5-10.1 [facility] Comment on above: Performed By: #### I NSULIN #### [facility] [address] [address] [address] Saray Souza Chloride [Moles/Vol] 101 mmol/L Normal 98-107 [facility] Comment on above: Performed By: #### I NSULIN #### [facility] [address] [place] [address] Dr. Saray Souza CO2 [Moles/Vol] 27.3 mmol/L Normal 21.0-32.0 [facility] Comment on above: Performed By: #### I NSULIN #### [facility] [address] [place] [address] Dr. Saray Souza Creatinine [Mass/Vol] 0.69 mg/dL Normal 0.55-1.02 [facility] Comment on above: Performed By: #### I NSULIN #### [facility] [address] [place] [address] Dr. Saray Souza EGFR-AF MONTENEGRIN >60 Normal >=60 [facility] Comment on above: Performed By: #### I NSULIN #### [facility] [address] [place] [address] Dr. Saray Souza EGFR-NON AF MONTENEGRIN >60 Normal >=60 [facility] Comment on above: Performed By: #### I NSULIN #### [facility] [address] [place] [address] Dr. Saray Souza Globulin (S) [Mass/Vol] 3.3 g/dL Normal [facility] Comment on above: Performed By: #### I NSULIN #### [facility] [address] [place] [address] Dr. Saray Souza Glucose [Mass/Vol] 83 mg/dL Normal 74-106 [facility] Comment on above: Performed By: #### I NSULIN #### [facility] [address] [address] [address] Saray Souza Potassium [Moles/Vol] 4.0 mmol/L Normal 3.5-5.1 [facility] Comment on above: Performed By: #### I NSULIN #### [facility] [address] [address] [address] Saray Souza Protein [Mass/Vol] 7.1 g/dL Normal 6.4-8.2 [facility] Comment on above: Performed By: #### I NSULIN #### [facility] [address] [address] [address] Saray Souza Sodium [Moles/Vol] 137 mmol/L Normal 136-145 [facility] Comment on above: Performed By: #### I NSULIN #### [facility] [address] [place] [address] Dr. Saray Souza Urea nitrogen [Mass/Vol] 10.0 mg/dL Normal 7.0-18.0 [facility] Comment on above: Performed By: #### I NSULIN #### [facility] [address] [place] [address] Dr. Saray Souza Urea nitrogen/Creatinine [Mass ratio] 14.5 mg/mg Normal [facility] Comment on above: Performed By: #### I NSULIN #### [facility] [address] [place] [address] Dr. Saray Souza TSHon 02-13-2023 TSH 2.745 uIU/mL Normal 0.358-3.740 [facility] Comment on above: Performed By: #### I NSULIN #### [facility] [address] [address] [address] Saray Souza AMYLASEon 02-04-2023 Amylase [Catalytic activity/Vol] 45 U/L Normal 25-115 [facility] Comment on above: Performed By: #### T SH, CMP, HSTROPN, LIPA, LINDA #### [facility] [address] [address] [address] Saray Souza CBC AUTO DIFFon 02-04-2023 BASO # 0.0 103/ul Normal 0.0-0.1 [facility] Comment on above: Performed By: #### C BC #### [facility] [address] [place] [address] Dr. Saray Souza Basophils/100 WBC (Bld) 0.4 % Normal 0.2-2.0 [facility] Comment on above: Performed By: #### C BC #### [facility] [address] [place] [address] Dr. Saray Souza EO # 0.1 103/ul Normal 0.0-0.7 [facility] Comment on above: Performed By: #### C BC #### [facility] [address] [place] [address] Dr. Saray Souza Eosinophils/100 WBC (Bld) 1.7 % Normal 0.9-7.0 [facility] Comment on above: Performed By: #### C BC #### [facility] [address] [place] [address] Dr. Saray Souza Erythrocyte distribution width (RBC) [Ratio] 12.0 % Normal 11.0-15.0 [facility] Comment on above: Performed By: #### C BC #### [facility] [address] [place] [address] Dr. Saray Souza Hematocrit (Bld) [Volume fraction] 42.3 % Normal 36.0-48.0 [facility] Comment on above: Performed By: #### C BC #### [facility] [address] [place] [address] Dr. Saray Souza Hemoglobin (Bld) [Mass/Vol] 13.9 g/dL Normal 12.0-16.0 [facility] Comment on above: Performed By: #### C BC #### [facility] [address] [place] [address] Dr. Saray Souza IG # 0.03 10e3/ul Normal 0.00-0.03 [facility] Comment on above: Performed By: #### C BC #### [facility] [address] [place] [address] Dr. Saray Souza IG % 0.4 % Normal 0.0-0.5 [facility] Comment on above: Performed By: #### C BC #### [facility] [address] [place] [address] Dr. Saray Souza LYMPH # 1.5 103/ul Normal 1.2-3.8 [facility] Comment on above: Performed By: #### C BC #### [facility] [address] [place] [address] Dr. Saray Souza Lymphocytes/100 WBC (Bld) 20.4 % Critically low 20.5-60.0 [facility] Comment on above: Performed By: #### C BC #### [facility] [address] [place] [address] Dr. Saray Souza MANUAL DIFF REQ NO Normal [facility] Comment on above: Performed By: #### C BC #### [facility] [address] [place] [address] Dr. Saray Souza MCH (RBC) [Entitic mass] 30.0 pg Normal 26.7-34.0 [facility] Comment on above: Performed By: #### C BC #### [facility] [address] [place] [address] Dr. Saray Souza MCHC (RBC) [Mass/Vol] 32.9 g/dL Normal 29.9-35.2 [facility] Comment on above: Performed By: #### C BC #### [facility] [address] [place] [address] Dr. Saray Souza MCV (RBC) [Entitic vol] 91.2 fL Normal 81.0-99.0 [facility] Comment on above: Performed By: #### C BC #### [facility] [address] [place] [address] Dr. Saray Souza MONO # 0.6 103/ul Normal 0.3-0.8 [facility] Comment on above: Performed By: #### C BC #### [facility] [address] [place] [address] Dr. Saray Souza Monocytes/100 WBC (Bld) 7.7 % Normal 1.7-12.0 [facility] Comment on above: Performed By: #### C BC #### [facility] [address] [place] [address] Dr. Saray Souza NEUT # 5.2 103/ul Normal 1.4-6.5 [facility] Comment on above: Performed By: #### C BC #### [facility] [address] [place] [address] Dr. Saray Souza Neutrophils/100 WBC (Bld) 69.4 % Normal 43.0-75.0 [facility] Comment on above: Performed By: #### C BC #### [facility] [address] [place] [address] Dr. Saray Souza Platelet mean volume (Bld) [Entitic vol] 9.0 fL Critically low 9.5-13.5 [facility] Comment on above: Performed By: #### C BC #### [facility] [address] [place] [address] Dr. Saray Souza PLT 292 103/ul Normal 150-450 [facility] Comment on above: Performed By: #### C BC #### [facility] [address] [place] [address] Dr. Saray Souza RBC 4.64 106/ul Normal 4.20-5.40 [facility] Comment on above: Performed By: #### C BC #### [facility] [address] [place] [address] Dr. Saray Souza WBC 7.5 103/ul Normal 4.0-11.0 [facility] Comment on above: Performed By: #### C BC #### [facility] [address] [place] [address] Dr. Saray Souza CULTURE URINEon 02-04-2023 CULTURE URINE Culture Observations : LIGHT GROWTH OF MIXED GENITAL CARMELO. NO POTENTIAL PATHOGENS SEEN. Normal The [facility] Comment on above: Performed By: #### C BC #### [facility] [address] [place] [address] Dr. Saray Souza ER URINE PROFILEon Bilirubin Ql (U) Negative Normal NEGATIVE The [facility] Comment on above: Performed By: #### C BC #### [facility] [address] [place] [address] Dr. Saray Souza Clarity (U) CLEAR Normal CLEAR [facility] Comment on above: Performed By: #### C BC #### [facility] [address] [place] [address] Dr. Saray Souza Color (U) LT. YELLOW Normal YELLOW [facility] Comment on above: Performed By: #### C BC #### [facility] [address] [place] [address] Dr. Saray JHA A micrscopic examination will be performed if indicated. Normal The [facility] Comment on above: Performed By: #### C BC #### [facility] [address] [place] [address] Dr. Saray Souza Glucose Ql (U) Negative Normal NEGATIVE The [facility] Comment on above: Performed By: #### C BC #### [facility] [address] [place] [address] Dr. Saray Souza Hemoglobin Ql (U) Negative Normal NEGATIVE The [facility] Comment on above: Performed By: #### C BC #### [facility] [address] [place] [address] Dr. Saray Souza Ketones Ql (U) Negative Normal NEGATIVE The [facility] Comment on above: Performed By: #### C BC #### [facility] [address] [place] [address] Dr. Saray Souza LEUKOCYTES MODERATE Abnormal NEGATIVE [facility] Comment on above: Performed By: #### C BC #### [facility] [address] [place] [address] Dr. Saray Souza Nitrite Ql (U) Negative Normal NEGATIVE [facility] Comment on above: Performed By: #### C BC #### [facility] [address] [place] [address] Dr. Saray Souza pH (U) 5.5 [pH] Normal 5-9 [facility] Comment on above: Performed By: #### C BC #### [facility] [address] [place] [address] Dr. Saray Souza SPEC GRAVITY >=1.030 Abnormal 1.005-<=1.025 [facility] Comment on above: Performed By: #### C BC #### [facility] [address] [place] [address] Dr. Saray Souza UA PROTEIN Negative Normal NEGATIVE/ TRACE [facility] Comment on above: Performed By: #### C BC #### [facility] [address] [place] [address] Dr. Saray Souza UR MICRO IND INDICATED Normal [facility] Comment on above: Performed By: #### C BC #### [facility] [address] [place] [address] Dr. Saray Souza Urobilinogen Qn (U) 0.2 {Janine'U}/dL Normal 0.2 - 1. 0 [facility] Comment on above: Performed By: #### C BC #### [facility] [address] [place] [address] Dr. Saray Souza LIPASEon 02-04-2023 Lipase [Catalytic activity/Vol] 97.0 U/L Normal 73.0-393.0 [facility] Comment on above: Performed By: #### T SH, CMP, HSTROPN, LIPA, LINDA #### [facility] [address] [place] [address] Dr. Saray Souza URon 02-04-2023 , QUAL Negative Normal NEGATIVE [facility] Comment on above: Performed By: #### C BC #### [facility] [address] [place] [address] Dr. Saray Souza PROF 14(COMP METB)on 023 Albumin [Mass/Vol] 3.5 g/dL Normal 3.4-5.0 [facility] Comment on above: Performed By: #### T SH, CMP, HSTROPN, LIPA, LINDA #### [facility] [address] [place] [address] Dr. Saray Souza Albumin/Globulin [Mass ratio] 1.2 {ratio} Normal [facility] Comment on above: Performed By: #### T SH, CMP, HSTROPN, LIPA, LINDA #### [facility] [address] [place] [address] Dr. Saray Souza ALP [Catalytic activity/Vol] 78 U/L Normal 46-116 [facility] Comment on above: Performed By: #### T SH, CMP, HSTROPN, LIPA, LINDA #### [facility] [address] [place] [address] Dr. Saray Souza ALT [Catalytic activity/Vol] 24 U/L Normal 14-59 [facility] Comment on above: Performed By: #### T SH, CMP, HSTROPN, LIPA, LINDA #### [facility] [address] [place] [address] Dr. Saray Souza Anion gap [Moles/Vol] 7.9 mmol/L Normal [facility] Comment on above: Performed By: #### T SH, CMP, HSTROPN, LIPA, LINDA #### [facility] [address] [place] [address] Dr. Saray Souza AST [Catalytic activity/Vol] 16 U/L Normal 15-37 [facility] Comment on above: Performed By: #### T SH, CMP, HSTROPN, LIPA, LINDA #### [facility] [address] [place] [address] Dr. Saray Souza Bilirubin [Mass/Vol] 0.3 mg/dL Normal 0.2-1.0 [facility] Comment on above: Performed By: #### T SH, CMP, HSTROPN, LIPA, LINDA #### [facility] [address] [place] [address] Dr. Saray Souza Calcium [Mass/Vol] 8.6 mg/dL Normal 8.5-10.1 [facility] Comment on above: Performed By: #### T SH, CMP, HSTROPN, LIPA, LINDA #### [facility] [address] [place] [address] Dr. Saray Souza Chloride [Moles/Vol] 105 mmol/L Normal 98-107 [facility] Comment on above: Performed By: #### T SH, CMP, HSTROPN, LIPA, LINDA #### [facility] [address] [address] [address] Saray Souza CO2 [Moles/Vol] 28.9 mmol/L Normal 21.0-32.0 [facility] Comment on above: Performed By: #### T SH, CMP, HSTROPN, LIPA, LINDA #### [facility] [address] [place] [address] Dr. Saray Souza Creatinine [Mass/Vol] 0.67 mg/dL Normal 0.55-1.02 [facility] Comment on above: Performed By: #### T SH, CMP, HSTROPN, LIPA, LINDA #### [facility] [address] [place] [address] Dr. Saray Souza EGFR-AF MONTENEGRIN >60 Normal >=60 [facility] Comment on above: Performed By: #### T SH, CMP, HSTROPN, LIPA, LINDA #### [facility] [address] [place] [address] Dr. Saray Souza EGFR-NON AF MONTENEGRIN >60 Normal >=60 [facility] Comment on above: Performed By: #### T SH, CMP, HSTROPN, LIPA, LINDA #### [facility] [address] [place] [address] Dr. Saray Souza Globulin (S) [Mass/Vol] 3.0 g/dL Normal [facility] Comment on above: Performed By: #### T SH, CMP, HSTROPN, LIPA, LINDA #### [facility] [address] [place] [address] Dr. Saray Souza Glucose [Mass/Vol] 97 mg/dL Normal 74-106 [facility] Comment on above: Performed By: #### T SH, CMP, HSTROPN, LIPA, LINDA #### [facility] [address] [place] [address] Dr. Saray Souza Potassium [Moles/Vol] 3.8 mmol/L Normal 3.5-5.1 [facility] Comment on above: Performed By: #### T SH, CMP, HSTROPN, LIPA, LINDA #### [facility] [address] [address] [address] Saray Souza Protein [Mass/Vol] 6.5 g/dL Normal 6.4-8.2 The [facility] Comment on above: Performed By: #### T SH, CMP, HSTROPN, LIPA, LINDA #### [facility] [address] [address] [address] Saray Souza Sodium [Moles/Vol] 138 mmol/L Normal 136-145 The [facility] Comment on above: Performed By: #### T SH, CMP, HSTROPN, LIPA, LINDA #### [facility] [address] [place] [address] Dr. Saray Souza Urea nitrogen [Mass/Vol] 13.0 mg/dL Normal 7.0-18.0 [facility] Comment on above: Performed By: #### T SH, CMP, HSTROPN, LIPA, LINDA #### [facility] [address] [place] [address] Dr. Saray Souza Urea nitrogen/Creatinine [Mass ratio] 19.4 mg/mg Normal [facility] Comment on above: Performed By: #### T SH, CMP, HSTROPN, LIPA, LINDA #### [facility] [address] [place] [address] Dr. Saray Souza TROPONIN, HIGH SENSITIVITYon 02-04-2023 HSTROP 4.0 pg/mL Normal 4.0-51.3 [facility] Comment on above: Result Comment: CUT- OFF POINTS HAVE BEEN ESTABLISHED BASED ON THE FOURTH UNIVERSAL DEFINITIONS OF MYOCARDIAL INFARCTION. THE UPPER REFERENCE LIMIT (URL) OF TROPONIN, DEFINED THE 99TH PERCENTILE OF cTnI DISTRIBUTION IN A REFERENCE POPULATION, HAS BEEN CONFIRMED THE DECISION THRESHOLD FOR MN DIAGNOSIS. Performed By: #### T SH, CMP, HSTROPN, LIPA, LINDA #### [facility] [address] [place] [address] Dr. Saray Souza TSHon 02-04-2023 TSH 2.478 uIU/mL Normal 0.358-3.[address] [facility] Comment on above: Performed By: #### T SH, CMP, HSTROPN, LIPA, LINDA #### [facility] [address] [place] [address] Dr. Saray Souza URINE MICROSCOPIC ONLYon BACTERIA MODERATE Abnormal NONE SEEN The [facility] Comment on above: Performed By: #### C BC #### [facility] [address] [place] [address] Dr. Saray Souza Bacteria identified Cx Nom (U) INDICATED Normal [facility] Comment on above: Performed By: #### C BC #### [facility] [address] [place] [address] Dr. Saray Souza CAST NONE SEEN Normal NONE SEEN [facility] Comment on above: Performed By: #### C BC #### [facility] [address] [place] [address] Dr. Saray Souza Crystals LM Nom (Urine sed) NONE SEEN Normal NONE SEEN [facility] Comment on above: Performed By: #### C BC #### [facility] [address] [place] [address] Dr. Saray Souza Epithelial cells LM Ql (Urine sed) MODERATE Abnormal NONE SEEN /RARE [facility] Comment on above: Performed By: #### C BC #### [facility] [address] [place] [address] Dr. Saray Souza MUCOUS NONE SEEN Normal NONE SEEN [facility] Comment on above: Performed By: #### C BC #### [facility] [address] [place] [address] Dr. Saray Souza RBC 5-10 Abnormal 0-2 [facility] Comment on above: Performed By: #### C BC #### [facility] [address] [place] [address] Dr. Saray Souza WBC 10-20 Abnormal NONE SEEN [facility] Comment on above: Performed By: #### C BC #### [facility] [address] [place] [address] Dr. Saray Souza Covid-19 PCR (CVDTBH)on 11-2 8-2022 SARS-CoV-2 (COVID-19) RNA DAYDAY+probe Ql (Unsp spec) Not detected Normal NOT DETECTED [facility] Comment on above: Result Comment: When [...] for this test is supported by the Partner Management Consultant of Health and Human Service's declaration that [...] used). Performed By: #### C BC #### [facility] [address] [place] [address] Dr. Saray Souza INFLUENZA A AND B [facility]on 10-[facility] Normal [facility] Comment on above: Result Comment: Nega tive for Flu A protein angiten. Infection due to Flu A cannot be ruled out. Flu A angiten in the sample may be below the detection limit of the test. Performed By: #### C BC #### [facility] [address] [place] [address] Dr. Saray [facility] Normal [facility] Comment on above: Result Comment: Nega tive for Flu B protein antigen. Infection due to Flu B cannot be ruled out. Flu B antigen in the sample may be below the detection limit of the test. Performed By: #### C BC #### [facility] [address] [place] [address] Dr. Saray Souza INFLUENZA A AG Negative Normal NEGATIVE SEE COMMENT [facility] Comment on above: Performed By: #### C BC #### [facility] [address] [place] [address] Dr. Saray Souza INFLUENZA B AG Negative Normal NEGATIVE SEE COMMENT [facility] Comment on above: Performed By: #### C BC #### [facility] [address] [address] [address] Saray Souza INTERNAL CONTROLS Within Normal Limits Normal Wi thin Normal Limits [facility] Comment on above: Performed By: #### C BC #### [facility] [address] [address] [address] Saray Souza STREPT SCREENon 10-20-2022 STREP SCREEN A Positive Abnormal NEGATIVE The [facility] Comment on above: Performed By: #### C BC #### [facility] [address] [address] [address] Saray Souza XR SHOULDER RT INJon [...] ADRIANA MENDEZ Date: 2022-07-18 17:05 Normal [facility] MRI SHOULDER RT WO CONon MRI [...] authenticated by: ADRIANA MENDEZ Date: 2022-07-10 10:10 [facility] XR ARTHRO SHLD RTon 07-10-20 XR ARTHRO LD RT EXAMINATION: XR ARTH RO SHLD RT [...] ADRIANA MENDEZ Date: 2022-07-10 10:01 Normal [facility] No Panel Informationon 03-18 Right Eye Reliability was good. Findings include normal observations. Left Eye Reliability was good. Findings include normal observations. Notes I personally reviewed the visual zaldivar performed by this patient on 03/18/22. The visual zaldivar are normal OU with good fixation. Francisco Ayers MD [facility] Radiology Study observation (narrative) [facility] Progress Noteson 03-18-2022 Analysis Director Authentication Interface Message Text Referred by Retina [...] edema - F/u with PCP (Melodie Hargrove, [place]) regarding headaches-- will fax information to [phone] - Offered referral to neurology, patient prefers [...] her PCP. Francisco Ayers MD [facility]2018 Cytology (NOTE) [id number] [employer] [facility]SULT[facility] PATHOLOGISTS [facility] ANATOMIC PATHOLOGY [address] [place] [id number] GYNECOLOGIC CYTOLOGY REPORT Patient Name: ROSALIE FREEMAN V. 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 - Endocervical/transform ation zone component present. - Scant cellularity; predominantly blood. Descriptive Diagnosis: Negative for intraepithelial lesion or malignancy. Clean In Places Operator: KANCHAN Mendoza(ASCP) Electronically Signed Out donna/01/03/2019 [facility] Comment on above: Performed By: #### P PPVP #### [facility] [address] [place] [id number] [employer] Supervisor: Vega Wilkerson MD Vital Signs Date Time Vital Sign Value Performing Clinician Facility 01-19-2024 09:34-0500 Blood Pressure Location ELÍAS HOPSON [facility] 01-19-2024 09:34-0500 Diastolic blood pressure 84 mm[Hg] ELÍAS HOPSON [facility] 01-19-2024 09:34-0500 Heart rate 80 /min ELÍAS HOPSON [facility] 01-19-2024 09:34-0500 Respiratory rate 16 /min ELÍAS HOPSON [facility] 01-19-2024 09:34-0500 Systolic blood pressure 132 mm[Hg] ELÍAS HOPSON [facility] 12-02-2023 08:40-0500 Body height 180.34 cm Taniya Mary Grace Other [facility] Other 12-02-2023 08:40-0500 Body mass index (BMI) [Ratio] 45.1 kg/m2 Taniya Mary Grace Other [facility] Other 12-02-2023 08:40-0500 Body temperature 97.5 [degF] Taniya Mary Grace Other [facility] Other 12-02-2023 08:40-0500 Body weight 146.69 kg Taniya Mary Grace Other [facility] Other 12-02-2023 08:40-0500 Diastolic blood pressure 83 mm[Hg] Taniya Mary Grace Other [facility] Other 12-02-2023 08:40-0500 Respiratory rate 18 /min Taniya Mary Grace Other [facility] Other 12-02-2023 08:40-0500 SaO2% (BldA) [Mass fraction] 98 % Taniya Mary Grace Other [facility] Other 12-02-2023 08:40-0500 Systolic blood pressure 136 mm[Hg] Taniya Mary Grace Other [facility] Other 11-19-2021 15:30-0500 Body height 180.34 cm Nandini Pantoja Other [facility] Other 11-19-2021 15:30-0500 Body mass index (BMI) [Ratio] 41.56 kg/m2 Nandini Pantoja Other [facility] Other 11-19-2021 15:30-0500 Body weight 135.17 kg Nandini Pantoja Other [facility] Other 11-19-2021 15:30-0500 Diastolic blood pressure 76 mm[Hg] Nandini Pantoja Other [facility] Other 11-19-2021 15:30-0500 Systolic blood pressure 128 mm[Hg] Nandini Pantoja Other [facility] Other Encounters Encounter Date Encounter Type Care Provider Facility Start: 2024 ambulatory ELÍAS Vargasi ty:[facility] [place] Start: 03-08-2024 ambulatory Yonis MIRANDA Facility :[facility] Start: 02-09-2024 End: 02-10-2024 ambulatory Dieter SALMON Facility:[facility] Start: 02-09-2024 End: 02-09-2024 Patient encounter procedure Dieter SALMON [facility] Start: 01-19-2024 End: 01-20-2024 ambulatory ELÍAS HOPSON Facility:[facility] Start: 01-19-2024 End: 01-20-2024 ambulatory ELÍAS HOPSON Facility:[facility] Start: 01-19-2024 End: 01-19-2024 Lab Drop off ELÍAS HOPSON [facility] Start: 01-19-2024 End: 01-19-2024 Patient encounter procedure ELÍAS HOPSON [facility] Start: 12-31-2023 ambulatory ELÍAS HOPSON Facility :[facility] Start: 12-17-2023 End: 12-17-2023 ambulatory Taniya Mary Grace Other [facility] Other Start: 12-17-2023 Office outpatient visit 15 minutes Taniya Mary Grace [facility] Start: 12-07-2023 End: 12-07-2023 ambulatory Taniya Mary Grace Other [facility] Other Start: 12-07-2023 Telephone encounter Taniya Mary Grace [facility] Start: 12-02-2023 End: 12-02-2023 ambulatory Taniya Mary Grace Other [facility] Other Start: 12-02-2023 Office outpatient ne w 30 minutes Taniya Mary Grace [facility] Start: 04-17-2023 End: 04-17-2023 ambulatory SALMA MONET . Facility:[facility] Start: 04-06-2023 End: 04-07-[address] MELODIE HARGROVE . Facility:[facility] Start: 04-04-2023 Encounter for genera l adult medical examination without abnormal findings DR MELODIE HARGROVE . [facility] Start: 04-03-2023 End: 04-04-[address] [...] End: 07-18-[address] MELODIE HARGROVE . Facility: Start: 07-10-2022 End: 07-10-[address] MELODIE HARGROVE . Facility:[facility] Start: 06-03-2022 End: 06-24-[address] MELODIE HARGROVE . Facility:[facility] Start: 05-13-2022 End: 05-14-[address] MELODIE HARGROVE . Facility:[facility] Start: 03-18-2022 End: 03-18-2022 ambulatory UNKNOWN PROVIDER Facility:[facility] Start: 11-19-2021 End: 11-19-2021 ambulatory Nandini Pantoja Other [place] [employer] Other Start: 11-19-2021 Office outpatient ne w 30 minutes Nandini Pantoja [facility] Start: 12-20-2018 End: 12-21-2018 Patient encounter procedure ANDRESSA ESCALANTE [facility] Procedures Date Procedure Procedure Detail [...] preparation of smear, genital source ANDRESSA AVA Colonoscopy ELÍAS HOPSON Fasciotomy of foot ELÍAS HOPSON Comment on above: left Hallux valgus correc tion by phalanx osteotomy ELÍAS HOPSON Hammer toe operation ALFONSO HOPSON Left salpingo-oophorectomy ELÍAS HOPSON Plan of Treatment Date Care Activity Detail Author Start: 2043 Shingles (RZV) Vacci ne (1 of 2) Shingles (RZV) Vaccine (1 of 2) [facility] Start: 2014 Screening for malign ant neoplasm of cervix Pap Smear [facility] Start: 2011 Hepatitis C screening Hepatitis C An tibody [facility] Start: 2011 Tetanus + diphtheria + acellular pertussis vaccine (product) Tdap Booster [facility] Start: 2008 HIV screening HIV Test [facility] Start: 1998 COVID-19 Vaccine (1) COVID-19 Vaccin e (1) [facility] Immunizations Immunization Date Immunization Notes Care Provider [facility] 10-28-2022 influenza virus vaccine, unspecified formulation ELÍAS HOPSON [facility] 04-15-2021 SARS-CoV-2 (COVID-19 ) mRNA-1273 vaccine ELÍAS HOPSON [facility] [place] 03-18-2021 SARS-CoV-2 (COVID-19 ) mRNA-1273 vaccine ELÍAS EMILIANA [facility] [place] 03-21-2014 influenza virus vaccine, unspecified formulation Estella Guerrero MD Work Phone: [facility] Payers Date Payer Category Payer Unknown [facility] [employer] [id number] 2017-Present [id number] 1993 Unknown [id number] [id number] 1993 Unknown [id number] 2.840.1.321914.3.579.2.732 1993 Unknown [id number] 2..840.1.813016.3.579.2.593 1993 Unknown [id number] 2.16840.1.792236.3.579.2.593 1993 Unknown [id number] 2.16.840.1.213750.3.579.2.593 1993 Unknown [id number] 2.16.840.1.289025.3.579.2.593 1993 Unknown [id number] 2.16.840.1.872725.3.579.2.593 1993 Unknown [id number] 2.16.840.1.748292.3.579.2.593 1993 Unknown [id number] 2.16.840.1.620060.3.579.2.593 1993 Unknown [id number] 2.16840.1.549269.3.579.2.593 1993 Unknown [id number] 2.840.1.891690.3.579.2.593 1993 Unknown [id number] 2.16840.1.753825.3.579.2.593 1993 Unknown [id number] 2.16840.1.046663.3.579.2.593 1993 Unknown [id number] 2.16840.1.574452.3.579.2.593 1993 Unknown [id number] 2.840.1.780135.3.579.2.727 1993 Unknown [id number] 2.16840.1.081038.3.579.2.727 1993 Unknown [id number] 2.16.840.1.608364.3.579.2.727 1993 Unknown [id number] 2.16840.1.245838.3.579.2.727 1993 Unknown [id number] 2.16840.1.193601.3.579.2.727 1959 Unknown [id number] Social History Date Type Detail Facility Tobacco smoking status NHIS Tobacco smoking consumption unknown [facility] Other Start: 1993 [facility] Start: 01-19-2024 Tobacco smoking status Never smoked tobacco (finding) [facility] Tobacco smoking status Never [facility] Functional Status Date Assessment Result Facility 01-19-2024 Functional Status N/A [facility] Clinical Notes 03-18-2022 to 02-09-2024 Note Date & Type Note Facility 02-09-2024 Note [id number] [facility] 02-09-2024 Hospital Discharg e instructions Patient Education 02/09/2024 08:33:30 [facility] - Cystoscopy Discharge Instructions (CUSTOM) Cystoscopy Voiding after the procedure: there may be some pain, burning, urgency, frequency and blood tinged urine following the procedure. These symptoms usually resolve within 2-5 days. Drink the amount of fluid it takes to keep the urine pink to yellow or clear in color. Drinking enough water and fluids will help to ease any discomfort after your procedure. If you are having problems that seem out of the ordinary, please call. If unable to contact your physician and you feel it is an emergency, go to the nearest emergency room or call 911 Diet you may resume your normal diet. Activity you may resume your normal activities Call if you have a fever over 100 degrees. Follow Up Care 01/19/2024 11:07:12 With:Dieter SALMON Address: [facility] [address], [place] [address]- Business (1) When:06/10/2024 08:33:15 Comments:With Deepthi Hopson [facility] 02-09-2024 Note Custom Cystoscopy ? Voiding after the procedure: there may be some pain, burning, urgency, frequency and blood tinged urine following the procedure. These symptoms usually resolve within 2-5 days. Drink the amount of fluid it takes to keep the urine pink to yellow or clear in color. Drinking enough water and fluids will help to ease any discomfort after your procedure. ? If you are having problems that seem out of the ordinary, please call. ? If unable to contact your physician and you feel it is an emergency, go to the nearest emergency room or call 911 ? Diet ? you may resume your normal diet. ? Activity ? you may resume your normal activities ? Call if you have a fever over 100 degrees. [facility] 01-19-2024 Note Chief Complaint Referral *Frequent UTI HPI Staff Evaluation requested by Dr Melodie Hargrove due to UTI. Pt is a new pt, never before seen in our office. (Verified on DA) Does see Dr Brody C&S 04/17/23 *20k Enterococcus faecalis NEG C&S 05/09/23 ÁLVARO 11/27/23 *1.8cm indeterminate lesion Rt Renal Midpole Cortex CMP 12/02/23 BUN 9.0 Crea0.77 & eGFR >60 UA 12/02/23 TRACE Leuks NEG Nitrates MODERATE Mucus C&S 12/02/23 *70-80k E Coli Tx'd w/ Cefdinir 300mg BID [id number] ÁLVARO 01/01/24 *No acute abnormality CTa wo/w 12/07/23 *No suspicious Renal Lesion Noted Pt states she had a UTI last January, turned into Kidney Infection. States since then, her UTI's usually turn in to Kidney Infection. Recently started seeing Dr Brody a couple months ago, she states that he told her the UTI's are what causing the Kidney Infections. Recommended pt follow up with us. Usually asymptomatic with infections. Voiding q2hrs during the day. 2x/night. Occasional leaking with coughing, laughing, sneezing. Does not wear protection. Will change underwear at that time. Does feel empty after voiding. Feels like she does empty better when she is standing (in shower) vs siting on the toilet. PVR 17ml History of Present Illness staff HPI reviewed and agree. Review of Systems PHQ Score Initial Depression Screen Score: 0 SCORE no fever, chills, malaise, myalgia. no rash/lesions. no chest pain, palpitations, or SOB. no abdominal pain, nausea, vomiting. no unilateral calf swelling, redness, pain Physical Exam Vitals & Measurements HR: 80(Peripheral) RR: 16 BP: 132/84 HT: 71 in HT: 180 cm WT: 145.5 kg WT: 320.1 lb BMI: 44.91 General: nontoxic, NAD Mouth: moist mucosa Lungs: normal respiratory effort Cardio: regular rate, good distal perfusion Abdomen: nondistended, no suprapubic distention or tenderness, no CVA tenderness Neurologic: Grossly normal Skin: No rashes or suspicious lesions Assessment/Plan Rosalie is a 28 yo female referred by Dr. Hargrove for chronic UTI. CMP 12/02/23 BUN 9.0, Cr 0.77, eGFR >60 BBS 16, good control 1. Recurrent UTI (N39.0: Urinary tract infection, site not specified) Most recent UTI 12/02/23 70-80k E Coli. Tx'd w/ Cefdinir 300mg bid x 10days UA in office today suspicious for UTI Small blood and large leuks, completed at home test late last week and it showed leuks. has been doing this about once per month and will contact PCP if it flips+ (does test negative at times) current UTI symptoms no doesn't typically have sx until things get really bad . Shares she has IBS and PCOS so abdominal pain is normal for her. UTI frequency almost every month UTIs started worsening in the past 6-12 mos initial episode spring 2022 had COVID, shingles, and first UTI/pyelo. Prior to that averaged UTIs very rarely to none pt's typical UTI sx: asymptomatic typically until sx become severe such as severe abdominal pain and mainly left flank pain. Burning, frequency, urgency. Shares that her shingles has flared repeatedly since last spring and always w UTI. has had multiple rounds antivirals and 9 rounds abx per external review (keflex, cipro x2, bactrim x2, ampicillin/augmentin x4) hx stones no CTAP wo/w 12/07/23 neg for stones. Renal US 01/01/24 neg for abnormalities or stones. immunosuppressed no not dx'd but interesting that she's had recurrent shingles as well as recurrent UTIs past year. if infections persist, may need to eval further. post-menopausal/hysterectomy no proper hygiene habits: wipes front to back every time yes avoids baths/hot tubs yes avoids scented [employer] products yes urinates after sexual activity yes Shares she has modified her hygiene habits and started using a bidet which has helped. Reports she is sexually active typically 5x per week. Does admit to anal intercourse. Does void after intercourse. PVR [address] Brody recently. had full eval and he feels her renal fx abnormalities were all result of recurrent UTI . everything returned to nl when not infected. Discussed [facility] to rule out reflux as source of recurrent pyelo. Discussed cystoscopic evaluation w possible UD if indicated. Discussed starting post-coital suppressive abx. Risks/benefits discussed at length. Plan is to do this for at least 6 mos. if No breakthrough infections, could try weaning off post-coital abx to OTC UTI preventive like [place] or similar. But for now, we need to give her an extended period of time to allow everything to heal. Pt advised to contact our office w all future UTI sx so we can monitor urine cx results, treat appropriately (may require extended course abx), and monitor frequency of infections. Pt advised if develops fever, severe flank pain, vomiting - needs to go to ER. -Script sent for suppressive abx - Bactrim SS 1 tab PRN -Schedule with [facility]. if results nl, PRW can discuss at upcoming cysto. if abnl, will need to address sooner obviously. -Will schedule cysto with Dr. Salmon. Abx sent. The risks and benefits for (more content not included)... [facility] Comment on above: Result Comment: Elec tronically Signed By: ELÍAS HOPSON PA-C\.br\Date and Time Signed: 01/19/24 10:56 EST\.br\Electronically Co-Signed By: Jania Lyn.br\Date and Time Co-Signed: 01/19/24 10:36 EST 01-19-2024 Hospital Discharg e instructions Patient Education [...] including vitamins, herbs, eye drops, creams, and ftoj-fgu-hifdsfe medicines. Any problems you or family members [...] health care provider tells you to. ?Taking ulty-vxd-qefhttw medicines, vitamins, herbs, and supplements. General instructions [...] provider. Document Revised: 02/19/2023 Document Reviewed: 02/19/2023 [employer] Patient Education 2022 [employer]. 01/19/2024 10:32:14 Urinary Tract Infection, Adult Urinary [...] Treatment for this condition includes: Antibiotic medicine. Fube-ixa-ihzuzop medicines to treat discomfort. Drinking enough water [...] Follow these instructions at home: Medicines Take hbak-qns-pkenklj and prescription medicines only as told by [...] provider. Document Revised: 06/21/2021 Document Reviewed: 06/21/2021 [employer] Patient Education 2022 [employer]. Follow Up Care 01/08/2024 10:24:51 With:ELÍAS HOPSON PA-C, URL Address: [address] [place] [address]. [place] [address] When: Unknown [facility] 12-17-2023 Evaluation note Encounter Date Diagnosis Assessment [...] her to avoid NSAIDs or any other jhji-nkl-rpyeesx medication or high-protein supplements Nov, Renal lesion [...] of any breach, fraud, or malicious third green party actors and no personal patient information was compromised. [employer] Other 01-10-2024 Evaluation note* Encounter Date Diagnosis [...] her to avoid NSAIDs or any other amcp-pjp-ofokiwv medication or high-protein supplements Nov, Renal lesion (ICD-10 - N28.9) She had a renal lesion of indeterminate nature on the renal ultrasound. She is ordered to have a CAT scan with contrast by the PCP. Will follow the report once done. Nov, IBS (irritable bowel syndrome) (ICD-10 - K58.9) Continue to follow with PCP for IBS management. [employer] Other 06-21-2022 NotePROCEDURE: XR SHOULDER RT 2V or > COMPARISON: None. HISTORY: Pain of right shoulder joint FINDINGS: BONES:No fracture, acute abnormality, or significant arthropathy. SOFT TISSUES:Negative. No visible soft tissue swelling. EFFUSION:None visible. OTHER: Negative. IMPRESSION: Normal examination. Electronically authenticated by: NANDINI MAYER Date: 2022-05-13 08:41[facility]04-26-2022 History of Present illness Narrative* Francisco [...] Hair) regarding headaches-- will fax information to [phone] - Offered referral to neurology, patient prefers [...] papilledema. Francisco Ayers MD documented in this [id number] History of Present illness Narrative* Francisco Ayers [...] Hair) regarding headaches-- will fax information to [phone] - Offered referral to neurology, patient prefers [...] Appointments Appointment Date:02/02/2024 11:30:00 AM Scheduled Provider: Location:[facility] Appointment Type:Urology CALL PAT Appointment Date:02/09/2024 08:15:00 AM Scheduled Provider: Location:[facility] Appointment Type:Urology FT Appointment Date:2024 08:20:00 AM Scheduled Provider:ELÍAS HOPSON PA-C Location:[facility] Appointment Type:URO Office Visit [facility] evaluation + Plan note Future Appointments Appointment Date:02/02/2024 11:30:00 AM Scheduled Provider: Location:[facility] Appointment Type:Urology CALL PAT FT Appointment Date:02/09/2024 08:15:00 AM Scheduled Provider: Location:[facility] Appointment Type:Urology FT Appointment Date:2024 08:20:00 AM Scheduled Provider:ELÍAS HOPSON PA-C Location:[facility] Appointment Type:URO Office Visit Diagnostic Tests Pending * [facility] Future Appointments Appointment Date:2024 08:20:00 AM Scheduled Provider:ELÍAS HOPSON PA-C Location:[facility] Diagnosis Chronic nonintractable headache, unspecified headache type- [facility] Chronic nonintractable headache, unspecified headache type- [facility] Other Evaluation [facility]No [facility]Not[facility] Other History general Narrative - [facility] Other History general Narrative - Reported* Type Description Date Medical History irritable bowel syndrome Medical History depression Medical History PROTEINURIA, UNSPECIFIED Medical History HYPOGLYCEMIA Medical History ARTHRALGIA Medical History SHINGLES Medical History ADHD Surgical History ovary removed 2014 Surgical History cholecystectomy Surgical History bilateral fasciitis repair Surgical History bilateral bone spur removal Hospitalization History 1 child [place] [facility] Other Hospital course Narrative No data available for this section [facility] Hospital Discharge instructions No data available for this section [facility] No data available for this section [facility] Summary Purpose Family History No Family History Records FoundNo Family History Records FoundNo Family History Records Found No data available for this section No data available for this section No data available for this section No Family History Records Found Advance Directives No Advanced Directives Records FoundNo Advanced Directives Records FoundNo Advanced Directives Records FoundNo Advanced Directives Records Found Additional Source Comments INFORMATION SOURCE (unrecogn ized section and content) DATE CREATED AUTHOR 08/31/2019 [email or web address] DATE CREATED AUTHOR AUTHOR'S ORGANIZ ATION 03/20/2022 [facility] DATE CREATED AUTHOR AUTHOR'S ORGANIZ ATION 04/18/2023 [facility] DATE CREATED AUTHOR AUTHOR'S ORGANIZ ATION 03/01/2024 [facility] Reason for Visit (unrecogniz ed section and content) Reason Comments Optic nerve edema Patient Care team informatio n (unrecognized section and content) Personnel Name: Melodie Hargrove MD Address: Address: [address] [place] [address] Personnel Name: Melodie Hargrove MD Address: Address: [address] [place] [address] Personnel Name: Melodie Hargrove MD Address: Address: [address] [place] [address] FOR RECORDS PERTAINING TO PATIENTS WHO ARE [...] BE BASED ON THE PRIMARY CLINICAL RECORDS. [facility]. provides no warranty or guarantee of the accuracy or completeness of information in this document.
[2024-03-04 09:17] LABS: Basophils Absolute Auto 0.1 10^3/uL (0.0-0.1); Basophils Percent Auto 0.8 % (0.2-2.0); Eosinophils Absolute Auto 0.2 10^3/uL (0.0-0.7); Eosinophils Percent Auto 2.9 % (0.9-7.0); Hematocrit 41.4 % (36.0-48.0); Hemoglobin 13.5 g/dL (12.0-16.0); Immature Granulocytes Abs Auto 0.03 10^3/uL (0.00-0.03); Immature Granulocytes Pct Auto 0.4 % (0.0-0.5); Lymphocytes Absolute Auto 1.8 10^3/uL (1.2-3.8); Lymphocytes Percent Auto 25.2 % (20.5-60.0); Mean Corpuscular HGB Conc 32.6 g/dL (29.9-35.2); Mean Corpuscular Hemoglobin 30.3 pg (26.7-34.0); Mean Corpuscular Volume 92.8 fL (81.0-99.0); Mean Platelet Volume 9.3 fL (9.5-13.5); Monocytes Absolute Auto 0.7 10^3/uL (0.3-0.8); Monocytes Percent Auto 10.2 % (1.7-12.0); Neutrophils Absolute Auto 4.4 10^3/uL (1.4-6.5); Neutrophils Percent Auto 60.5 % (43.0-75.0); Platelet Count 295 10^3/uL (150-450); Red Blood Count 4.46 10^6/uL (4.20-5.40); Red Cell Distribution Width 12.3 % (11.0-15.0); White Blood Count 7.2 10^3/uL (4.0-11.0)
[2024-03-04 09:47] LABS: Alanine Aminotransferase 65 U/L (14-59); Albumin Level 3.7 g/dL (3.4-5.0); Alkaline Phosphatase 68 U/L (46-116); Anion Gap 12.6; Aspartate Amino Transferase 33 U/L (15-37); BUN Creatinine Ratio 15.8; Bilirubin Total 0.5 mg/dL (0.2-1.0); Carbon Dioxide 27.3 mmol/L (21.0-32.0); Chloride 104 mmol/L (98-107); Estimated GFR (African America >60 (>=60); Estimated GFR (Non-African Ame >60 (>=60); Free T3 2.82 pg/mL (2.18-3.98); Globulin 3.6 g/dL; Glucose 88 mg/dL (74-106); Potassium 3.9 mmol/L (3.5-5.1); Sodium 140 mmol/L (136-145); Thyroid Stimulating Hormone 2.722 uIU/mL (0.358-3.740); Total Protein 7.3 g/dL (6.4-8.2)
[2024-03-04 09:51] LABS: Estimated Average Glucose 103 mg/dL; Glycohemoglobin A1C 5.2 % (4.5-6.2)
[2024-03-06 12:07] LABS: Insulin 20.3 uIU/mL (2.6-24.9)
== END 2024-03-04 08:31 | disposition home or self-care (01) ==
LOC: LAB 08:31
PROVIDERS: PCP Family Medicine; Visit Provider Family Medicine
DX: K58.9 Irritable bowel syndrome, unspecified (principal); M75.41 Impingement syndrome of right shoulder; F90.9 Attention-deficit hyperactivity disorder, unspecified type; R73.09 Other abnormal glucose; D64.9 Anemia, unspecified
CPT/HCPCS: 36415; 80053; 83036; 83525; 83540; 84436; 84443; 84481; 85025

== ENCOUNTER 2024-03-14 10:39 | Day surgery (SDC) | payer OTHER, SELFPAY ==
--- NOTE | 2024-03-14 10:50 | FL_ITS ---
[address] [address] Patient Name: ROSALIE FREEMAN MRN: [id number] date: 1995 Sex: F [place]igned Patient Location[place] Location[place] Accession/Order Number: [id number] Exam Date: 03/14/2024 10:55 Report Date: 03/14/2024 12:09 At the request of: MELODIE ASHTON Procedure: FL guided needle placement EXAMINATION: FL arthrogram shoulder, FL guided needle placement HISTORY: Shoulder pain COMPARISON: No relevant comparison available. TECHNIQUE: An arthrogram was performed under fluoroscopic guidance using non-ionic contrast material in the usual sterile manner after obtaining informed consent. Standard level fluoroscopic mode of operation utilized. FINDINGS: JOINT: Right shoulder NEEDLE: 25 gauge, 3.5 spinal needle. MEDICATION: 6cc buffered 1% lidocaine for subcutaneous anesthesia 2cc Omnipaque-240 iodinated contrast to visualize the joint space 40 mg Depo-Medrol and one mL, 3 mL's of 0.5% bupivacaine, 3 cc of sterile saline injected into the joint space. TECHNIQUE: Anterior approach. A single stick was successful in gaining access to the joint space. CLINICAL: 2 out of 10 pain before the procedure. 0 out of 10 pain following injection COMPLICATIONS: None. BONES: Normal. No erosion, osteophyte, fracture, or bony lesion. CARTILAGE: Normal. No visible erosion or interruption. CAPSULE: Normal. No visible capsular laxity or labrum tear. MICHAEL-ARTICULAR: Normal. No visible michael-articular soft tissue abnormality. LOOSE BODIES: None. OTHER: Negative. FL/FL guided needle placement IMPRESSION: Technically successful right shoulder therapeutic arthrogram Electronically authenticated by: NANDINI MAYER Date: 03/14/2024 12:09
[2024-03-14] MEDS: LIDOCAINE HCL 10 ML, SODIUM BICARBONATE 1 MEQ INJ (11:35)
[2024-03-14] MEDS: BUPIVACAINE HCL 0.5% PF 50 MG/10 ML VIAL 2 ML INJ (11:35)
[2024-03-14] MEDS: TRIAMCINOLONE ACETONIDE 40 MG/ML VIAL INJ (11:35)
--- NOTE | 2024-03-14 11:51 | FL_ITS ---
[address] [address] Patient Name: ROSALIE FREEMAN MRN: [id number] date: 1995 Sex: F [place]igned Patient Location: [place] Current [place] Location[place] Accession/Order Number: [id number] Exam Date: 03/14/2024 10:55 Report Date: 03/14/2024 12:09 At the request of: MELODIE ASHTON Procedure: FL arthrogram shoulder EXAMINATION: FL arthrogram shoulder, FL guided needle placement HISTORY: Shoulder pain COMPARISON: No relevant comparison available. TECHNIQUE: An arthrogram was performed under fluoroscopic guidance using non-ionic contrast material in the usual sterile manner after obtaining informed consent. Standard level fluoroscopic mode of operation utilized. FINDINGS: JOINT: Right shoulder NEEDLE: 25 gauge, 3.5 spinal needle. MEDICATION: 6cc buffered 1% lidocaine for subcutaneous anesthesia 2cc Omnipaque-240 iodinated contrast to visualize the joint space 40 mg Depo-Medrol and one mL, 3 mL's of 0.5% bupivacaine, 3 cc of sterile saline injected into the joint space. TECHNIQUE: Anterior approach. A single stick was successful in gaining access to the joint space. CLINICAL: 2 out of 10 pain before the procedure. 0 out of 10 pain following injection COMPLICATIONS: None. BONES: Normal. No erosion, osteophyte, fracture, or bony lesion. CARTILAGE: Normal. No visible erosion or interruption. CAPSULE: Normal. No visible capsular laxity or labrum tear. MICHAEL-ARTICULAR: Normal. No visible michael-articular soft tissue abnormality. LOOSE BODIES: None. OTHER: Negative. FL/FL arthrogram shoulder IMPRESSION: Technically successful right shoulder therapeutic arthrogram Electronically authenticated by: NANDINI MAYER Date: 03/14/2024 12:09
--- NOTE | 2024-03-14 12:37 | SUR.PREOP ---
02/26/24 Pt instructed on date, time, prep, and procedure.
== END 2024-03-14 11:50 | disposition home or self-care (01) ==
LOC: FL 10:40
PROVIDERS: Radiology Diagnostic Radiology; PCP Family Medicine; Visit Provider Family Medicine
DX: M25.511 Pain in right shoulder (principal)
CPT/HCPCS: 23350; 77002; Q9967

== ENCOUNTER 2024-04-12 13:33 | Outpatient (OUT) | payer OTHER, SELFPAY | END 2024-04-12 13:34 | disposition home or self-care (01) | LOC: PST 13:33 | PROVIDERS: PCP Family Medicine; Visit Provider Surgery | DX: Z01.818 Encounter for other preprocedural examination (principal); R19.7 Diarrhea, unspecified; R10.13 Epigastric pain; R11.0 Nausea ==

== ENCOUNTER 2024-04-27 11:40 | Day surgery (SDC) | payer SELFPAY ==
--- NOTE | 2024-04-27 | OP_ITS ---
OPERATION DATE: 04/27/2024 PREOPERATIVE DIAGNOSIS: Epigastric abdominal pain, refractory GERD, bowel changes alternating diarrhea and constipation. POSTOPERATIVE DIAGNOSIS: Bile reflux, normal colonoscopy to terminal ileum. PROCEDURE: EGD and colonoscopy to terminal ileum with random colon biopsies in the descending and sigmoid colon. SURGEON: Yonis Carney M.D. ANESTHESIA: Monitored anesthesia care. ESTIMATED BLOOD LOSS: Less than 1 mL. INDICATIONS AND CONSENT: Patient is a 28-year-old female with long history of abdominal complaints, with worsening gastroesophageal reflux disease, intermittent epigastric abdominal pain, bowel changes with frequent loose stools. Indications, risks, benefits, alternatives of proceeding with EGD and colonoscopy were explained extensively to the patient, including the risks of bleeding, aspiration, esophageal/gastric/duodenal or colonic perforation or anesthetic complications. All of her questions were answered. Informed consent was obtained. PROCEDURE: Patient brought to the operating room, placed in the left lateral decubitus position. Monitored anesthesia care was provided. Bite block was placed in the patient?s mouth. Scope was inserted into the oropharynx. Under direct visualization, it was advanced into the esophagus, past the cricopharyngeus, down to the stomach. The stomach was insufflated with air. The pylorus was traversed down to the descending portion of the duodenum. There was no evidence of duodenitis or ulceration. There was no scarring within the pyloric channel. Scope was pulled back into the stomach and retroflexed. There was no significant hiatal hernia. There was some mild bile reflux. No evidence of other gastric mucosal abnormalities. The GE junction was noted at approximately 50 cm. There was no distal esophagitis or Oneill?s changes. The remainder of the esophagus was unremarkable. The scope was then withdrawn. Patient was then positioned for colonoscopy. Rectal exam was performed, which showed no masses or blood. The scope was then inserted into the anal canal. Under direct visualization, it was advanced. With the aid of abdominal compression, it was advanced to the cecum where cecal markings were clearly identified. The terminal ileum was intubated and villi were normal. There were no inflammatory changes or ulcerations. There was noted to be a good prep. Upon withdrawal of the scope, mucosal surfaces were carefully examined. There were no mass lesions or polyps. No inflammatory changes or ulcerations. No significant diverticulosis. Random colon biopsies were obtained with cold biopsy forceps of the descending and sigmoid colon with good hemostasis. The scope was retroflexed in the anal canal. There was no significant hemorrhoidal disease. The scope was then withdrawn. The patient tolerated procedure well, was sent to recovery room in good condition.f/u screening colonoscopy should be at age 43. CC: Dr. Juan ALEXANDRA
--- OUTSIDE RECORDS SUMMARY | 2024-04-27 11:50 | XMS_ITS ---
Patient Summarization (C-CDA 2.1 CCD) Created on: April 27, 2024 ROSALIE FREEMAN V : 1995 Sex: Female Author Organization Sample organization Care Team Providers Care Resident Physician Name Role Phone AMYTOAN CulverKRISTA Kaur Referring Unavailable MELODIE HARGROVE Primary Care [...] Unavailable DANIEL CELAYA Attending Unavailable DANIEL CELAYA Admkaty Unavailable HOY ., DR SEWELL Consulting [...] Unavailable HOY ., DR SEWELL Admkaty Unavailable JUDSONIA, DR NANDINI Stafford Consulting Unavailable HOY ., [...] NANDINI Stafford Consulting Unavailable HOY ., DR SEEWLL Primary Care Unavailable HOY ., DR SEWELL Attending Unavailable HOY ., DR SEWELL Admitting Unavailable NACHO, JETHRO Consulting Unavailable NACHO, JETHRO Attending Unavailable NACHO, JETHRO Admitting Unavailable HOY ., DR SEWELL Primary Care Unavailable PARIS, ELLIS Consulting Unavailable PARIS, ELLIS Attending Unavailable PARIS, ELLIS Admitting Unavailable BEENA ., DR SEWELL Primary Care Unavailable Taniya Brody Unavailable Melodie Hargrove Primary Care Physician ELÍAS HOPSON Admitting Unavailable ELÍAS HOPSON Attending Unavailable Yonis MIRANDA Attending Unavailable Melodie Hargrove Referring Unavailable ELÍAS HOPSON Attending Unavailable ELÍAS HOPSON Attending Unavailable Melodie Hargrove Referring Unavailable Dieter SALMON Admitting Unavailable Dieter SALMON Attending Unavailable Dieter SALMON Referring Unavailable Allergies Allergy Classification Reported Allergen(s) Allergy Type Date of Onset Reaction(s) Facility (1 source) [facility]; Translations: [[facility]] Propensity to adverse reactions (disorder) The Repository (3 sources) [employer] [facility] allergy [employer] Other (1 source) No Known Medication Allergies; Translations: [No Known Medication Allergies] Propensity to adverse reactions (disorder) [facility] Repository Encounters Encounter Date Encounter Type Care Provider Facility Start: 03-08-2024 End: 03-09-2024 [facility] Start: 03-08-2024 End: 03-08-2024 Patient encounter procedure [facility]ANDA [facility] Start: 02-09-2024 End: 02-10-2024 ambulatory Dieter SALMON [facility] Start: 02-09-2024 End: 02-09-2024 Patient encounter procedure Dieter SALMON [facility] Start: 01-19-2024 End: 01-20-2024 ambulatory ELÍAS HOPSON [facility] Start: 01-19-2024 End: 01-20-2024 ambulatory ELÍAS Mary Lou HOPSON Facility:[facility] Start: 01-19-2024 End: 01-19-2024 Lab Drop off ELÍAS HOPSON [facility] Start: 01-19-2024 End: 01-19-2024 Patient encounter procedure ELÍAS HOPSON [facility] Start: 12-31-2023 ambulatory LEÍAS HOPSON Facility :[facility] Start: 12-17-2023 End: 12-17-2023 ambulatory Taniya [facility] Other [facility] Other Start: 12-17-2023 Office outpatient visit 15 minutes Taniya Mary Grace [facility] Start: 12-07-2023 End: 12-07-2023 ambulatory Taniya Mary Grace Other [facility] Other Start: 12-07-2023 Telephone encounter Taniya Mary Grace [facility] Start: 12-02-2023 End: 12-02-2023 ambulatory Taniya Mary Grace Other [facility] Other Start: 12-02-2023 Office outpatient ne w 30 minutes Taniya Mary Grace [facility] Start: 04-17-2023 End: 04-17-2023 ambulatory SALMA MONET . Facility:[facility] Start: 04-06-2023 End: 04-07-[address] MELODIE HARGROVE . Facility:[facility] Start: 04-04-2023 Encounter for genera l adult medical examination without abnormal findings DR MELODIE HARGROVE . The Start: 04-03-2023 End: 04-04-[address] MELODIE [...] 11-19-2021 End: 11-19-2021 ambulatory Nandini Pantoja Other [facility] Other Start: 11-19-2021 Office outpatient ne w 30 minutes Nandini Pantoja [facility] Start: 12-20-2018 End: 12-21-2018 Patient encounter procedure ANDRESSA Natasha [facility] Immunizations Immunization Date Immunization Notes Care Provider Fa cility 10-28-2022 influenza virus vaccine, unspecified formulation ELÍAS HOPSON [facility] 04-15-2021 SARS-CoV-2 (COVID-19 ) mRNA-1273 vaccine ELÍAS HOPSON [facility] [place] 03-18-2021 SARS-CoV-2 (COVID-19 ) mRNA-1273 vaccine ELÍAS HOPSON [facility] [place] 03-21-2014 influenza virus vaccine, unspecified formulation Estella Guerrero MD Work Phone: [facility] Medications Current Medications Medication Drug Class(es) Dates Sig (Normalized) Sig (Original) amoxicillin 500 mg oral capsule (2 sources) Penicillin-class Antibacterial take 1 capsule by mouth every twelve hours Amoxicillin 500 MG 1 capsule Orally Twice a day for 30 days Active cloNIDine hydrochloride 0.1 mg oral tablet (1 source) Central alpha-2 Adrenergic Agonist Start: 03-08-2024 take 1 tablet by mouth once daily cloNIDine 0.1 mg tab 0.1 mg = 1 tab(s), Oral, Daily, Refills(s) 0 Start Date: 03/08/24 Status: Ordered dicyclomine hydrochloride 20 mg oral tablet (1 [...] EVERY DAY Oral for 30 Days Active ondansetron 4 mg oral tablet (3 sources) Serotonin-3 Receptor Antagonist Start: 09-19-2021 take 1 tablet by mouth every six hours ondansetron 4 mg Tab 4 mg = 1 tab(s), Oral, q6hr, Refills(s) 0 Start Date: 09/19/21 Status: Ordered sertraline 100 mg oral tablet (8 sources) Serotonin Reuptake Inhibitor Start: 09-19-2021 take 1 tablet by mouth once daily Zoloft 100 mg Tab 100 mg = 1 tab(s), Oral, Daily, Refills(s) 0 Start Date: 09/19/21 Status: Ordered sulfamethoxazole 400 mg / trimethoprim 80 mg oral tablet (4 sources) Dihydrofolate Reductase Inhibitor Antibacterial, Sulfonamide Antimicrobial Start: 01-19-2024 Bactrim 400 mg-80 mg Tab 1 tab(s), Oral, Daily UTI prevention, 30 tab(s), Refill(s) 3, [facility]/pharmacy #[id number], 180, cm, 02/27/24 9:37:00 EST, Height/Length Dosing, 145.5, kg, 01/19/24 9:37:00 EST, Weight Dosing Start Date: 01/19/24 Status: Ordered Completed/Discontinued Medications Medication Drug Class(es) Dates Sig (Normalized) Sig (Original) cephalexin 500 mg oral capsule (4 sources) Cephalosporin Antibacterial Start: 01-19-2024 Keflex 500 mg Cap 500 mg = 1 cap(s), Oral, As Directed, Pt to take 1 tab the day before procedure and the 2nd tab the day of procedure once completed., # 2 cap(s), Refills(s) 0, Pharmacy: [facility]/pharmacy #[id number], 180, cm, 01/19/24 9:37:00 EST, Height/Length Dosing, 145.5, kg, 01/19/24 9:37:00 EST, Weight Dosing Start Date: 01/19/24 Status: Ordered levonorgestrel 0.630011 mg/hr intrauterine system (4 sources) Progestin, Progestin-containin g Intrauterine Device Start: 09-19-2021 Mirena 52 mg intrauteral device 52 mg = 1 EA, IntraUteral, Once Start Date: 09/19/21 Status: Ordered meloxicam 15 mg oral tablet (7 sources) Nonsteroidal Anti-inflammatory Drug Start: 01-15-2024 meloxicam 15 mg Tab 15 mg = 1 tab(s), Oral, Daily, 0 Refill(s), Refills(s) 0 Start Date: 01/15/24 Status: Ordered take 1 tablet by joesph every twenty-four hours Meloxicam 15 MG 1 tablet Orally Once a day Active Payers Date Payer Category Payer Unknown [facility] [employer] [employer] [id number] 2017-Present [id number] 1995 Unknown [id number] [id number] 1995 Unknown [id number] 2.16.840.1.893428.3.579.2.732 1995 Unknown [id number] 2.16.840.1.478766.3.579.2.593 1993 Unknown [id number] 2.16.840.1.045258.3.579.2.593 1993 Unknown [id number] 2.16.840.1.739919.3.579.2.593 1993 Unknown [id number] 2.16.840.1.730332.3.579.2.593 1993 Unknown [id number] 2.16.840.1.091562.3.579.2.593 1993 Unknown [id number] 2.16.840.1.984894.3.579.2.593 1993 Unknown [id number] 2.16.840.1.806103.3.579.2.593 1993 Unknown [id number] 2.16.840.1.056783.3.579.2.593 1993 Unknown [id number] 2.16.840.1.930020.3.579.2.593 1993 Unknown [id number] 2.16.840.1.241320.3.579.2.593 1993 Unknown [id number] 2.16.840.1.339295.3.579.2.593 1993 Unknown [id number] 2.16.840.1.574218.3.579.2.593 1993 Unknown [id number] 2.16.840.1.900489.3.579.2.727 1993 Unknown [id number] 2.16.840.1.768767.3.579.2.727 1993 Unknown [id number] 2.16.840.1.148985.3.579.2.727 1993 Unknown [id number] 2.16.840.1.958287.3.579.2.727 1993 Unknown [id number] 2.16.840.1.886495.3.579.2.727 1959 Unknown [id number] Plan of Treatment Date Care Activity Detail Author Start: 2043 Shingles (RZV) Vacci ne (1 of 2) Shingles (RZV) Vaccine ([facility] 2) [facility] Start: 2024 ambulatory Amb[facility] Facility:[facility] Start: 2014 Screening for malign ant neoplasm of cervix Pap Smear [facility] Start: 2011 Hepatitis C screening [facility] Start: 2011 Tetanus + diphtheria + acellular pertussis vaccine (product) [facility] Start: 2008 HIV screening HIV Test [facility] Start: 1998 COVID-19 Vaccine (1) COVID-19 Vaccin e (1) [facility] Problems Active Problems Problem Classification Problem Date Documented Da te Episodic/Chronic Abdominal pain (8 sources) Epigastric pain; Translations: [Right upper quadrant pain] 09-20-2021 Episodic Anxiety disorders (4 sources) Anxiety 09-20-2021 Chronic Biliary tract disease (4 sources) Chronic cholecystitis with calculus 09-30-2021 Episodic Conditions associated with dizziness or vertigo (4 sources) Dizziness and giddiness; Translations: [DIZZINESS AND GIDDINESS] Onset: 3 Episodic Esophageal disorders (13 sources) Gastroesophageal reflux disease; Translations: [Gastro-esophageal reflux disease without esophagitis] Onset: 1 Resolved: 1 Chronic Fluid and electrolyte disorders (1 source) Hypokalemia Episodic Genitourinary symptoms and ill-defined conditions (2 sources) Proteinuria, unspecified Episodic Headache; including migraine (2 sources) Headache; Translations: [Chronic nonintractable headache, unspecified headache type] Episodic Mood disorders (4 sources) Mood disorder 09-19-2021 Chronic Nausea and vomiting (1 source) Nausea; Translations: [NAUSEA] Onset: 3 Episodic Other acquired deformities (4 sources) Scoliosis deformity of spine 09-20-2021 Chronic Other aftercare (1 source) 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; Translations: [OTH WIND FARM SUPPORT SPECIALIST CURRENT DRUG THERAPY] Onset: 3 Episodic Other diseases of kidney and ureters (2 sources) Disorder of kidney and ureter, unspecified Episodic Other diseases of kidney and ureters (1 source) Disorder of kidney and/or ureter; Translations: [Disorder of kidney and ureter, unspecified] Onset: 4 Episodic Other diseases of kidney and ureters (4 sources) Kidney lesion 01-19-2024 Episodic Other endocrine disorders (4 sources) Other hypoglycemia; Translations: [OTHER HYPOGLYCEMIA] Onset: 3 Chronic Other gastrointestinal disorders (9 sources) Irritable bowel syndrome; Translations: [Irritable bowel syndrome without diarrhea] Onset: 4 Chronic Other gastrointestinal disorders (3 sources) Irritable bowel syndrome without diarrhea Onset: 1 Resolved: 1 Chronic Other nutritional; endocrine; and metabolic disorders (4 sources) Body mass index 40+ - severely obese 09-20-2021 Chronic Other nutritional; endocrine; and metabolic disorders (1 source) Morbid obesity 03-04-2024 Chronic Other screening for suspected conditions (not mental disorders or infectious disease) (4 sources) Ultrasonography of biliary tract abnormal 09-20-2021 Episodic Other skin disorders (4 sources) Acne vulgaris 09-20-2021 Episodic Residual codes; unclassified (4 sources) Insomnia 09-20-2021 Episodic Unclassified (3 sources) CONTACT W/AND (SUSP) EXPOS COVID-19; Translations: [CONTACT W/AND (SUSP) EXPOS COVID-19] Onset: 2 Unclassified (1 source) COUGH, UNSPECIFIED; Translations: [COUGH, UNSPECIFIED] Onset: 2 Urinary tract infections (10 sources) Urinary tract infection, site not specified; [...] [CONTACT W/AND (SUSP) EXPOS COVID-19] Onset: 10-20-2022 Procedures Date Procedure Procedure Detail Performing Clinician Start: 03-18-2022 Visual field xm uni/ bi w/interp extended exam Estella Guerrero MD Work Phone: Start: 03-18-2022 End: 03-18-2022 Oph medical xm&eval compre new pt 1/> vst Chronic nonintractable headache, unspecified headache type Estella Guerrero MD Work Phone: Comment on above: Chronic nonintractab le headache, unspecified headache type (Primary Dx) Start: 10-02-2021 Laparoscopic cholecystectomy ELÍAS HOPSON Start: 12-20-2018 Cytopathology proced ure, preparation of smear, genital source ANDRESSA ESCALANTE Start: 07-09-2016 Colonoscopy Yonis KEE Colonoscopy ELÍAS HOPSON Fasciotomy of foot ELÍAS HOPSON Comment on above: left Hallux valgus correc tion by phalanx osteotomy ELÍAS HOPSON Hammer toe operation ALFONSO HOPSON Left salpingo-oophorectomy ELÍAS HOPSON Results Test Name Value Interpretation Reference Range Facility Consent for Procedure/Surger yon 03-09-2024 Consent for Procedure/Surgery [id number]#1.0 0TIFF [facility] Ambulatory Visit Summaryon 0 03-08-2024 Ambulatory Visit Summary ROSALIE FREEMAN V :1995 Visit Date:03/08/2024 Ambulatory Visit Instructions Your Care Team Attending Physician - RUTH CLARK, Yonis Mckenzie Primary Care Physician - Beena CLARK, Melodie Referring Physician - Melodie Hargrove MD This Is Your Medications List cephalexin (Keflex 500 mg Cap) clonidine (cloNIDine 0.1 mg tab) levonorgestrel (Mirena 52 mg intrauteral device) meloxicam (meloxicam 15 mg Tab) sertraline (Zoloft 100 mg Tab) sulfamethoxazole-trime thoprim (Bactrim 400 mg-80 mg Tab) Procedures Performed Laparoscopic cholecystectomy (10/02/2021), Colonoscopy (07/09/2016), Correction of hammer toe, Hallux valgus correction by phalanx osteotomy, Left salpingo-oophorectomy, Plantar fasciotomy. Discharge Vitals Heart Rate (Peripheral) 76 Respiratory Rate 16 Blood Pressure 118/84 Height 180 cm Height 71 in Weight 152 kg Weight 334.4 lb BMI 46.91 What to do next Scheduled Follow-Up Appointments Thursday 8:20 AM EDT With: ELÍAS HOPSON PA-C Where: [facility] Physician Referralon 024 Physician Referral [id number] 0TI[facility] Physician Referralon 024 Physician Referral [id number]#1.0 0[facility] Consent for Procedure/Surger yon 02-09-2024 Consent for Procedure/Surgery [id number]#1. 00TIFF [facility] Consent for Treatmenton 01-21 Consent for Treatment [id number]#1.0 0TI[facility] IntraOperative Documentson 0 02-09-2024 IntraOperative Documents [id number]#1. 00TIFF [facility] Main OR Intraoperative Recor don 02-09-2024 Main OR Intraoperative Record IntraOp Document Type FTURO Summary Primary Physician: Dieter SALMON MD Finalized Date/Time: 02/09/24 08:32:09 Pt. Name: ROSALIE FREEMAN D.O.B./Sex: 1995 Female Med Rec #: [id number] Physician: Dieter SALMON MD Financial #: [id number] Pt. Type: O Room/Bed: / Admit/Disch: 02/09/24 07:32:51 - Institution: Case Times FTURO Entry 1 Patient Times In Room 02/09/24 08:10:00 Out Room 02/09/24 08:38:00 Procedure Times Start 02/09/24 08:24:00 Stop 02/09/24 08:33:00 Anesthesia Times Last Modified By: Сергей VALENZUELA, GIUSEPPE, Sangita 02/09/24 08:31:26 Case Attendance FTURO Entry 1 Entry 2 Entry 3 Case Attendee SANDRITA CLARK, Dieter Rushing RN, RAYMONDOR, Maryam GRIGSBY, Bianca Quesada Role Performed Surgeon - Primary Clinical Support Tech - Primary Scrub - Primary Time In 02/09/24 08:10:00 02/09/24 08:10:00 02/09/24 08:10:00 Time Out 02/09/24 08:38:00 02/09/24 08:38:00 02/09/24 08:38:00 Procedure CYSTOSCOPY LOCAL(.) CYSTOSCOPY LOCAL(.) CYSTOSCOPY LOCAL(.) Comments Last Modified By: Сергей RN, CNOR, Сергей RN, RAYMONDOR, Сергей RN, RAYMONDOR, Sangita 02/09/24 Sangita 02/09/24 Sangita 02/09/24 08:31:27 08:31:27 08:31:27 Surgical Procedures FTURO Entry 1 Procedure Description Procedure CYSTOSCOPY LOCAL Modifiers . Surgeon Description CYSTO Primary Procedure Yes Primary Surgeon Dieter SALMON MD Start 02/09/24 08:24:00 Stop 02/09/24 08:33:00 Anesthesia Type Local Surgical Service Urology Wound Class 2 - Clean-Contaminated Last Modified By: GIUSEPPE Rushing RN, Ruthann 02/09/24 08:31:28 General Case Data FTURO Pre-Care Text: Classifies surgical wound, implements aseptic technique, initiates traffic control Entry 1 Case Information OR URO 1 FT Case Level None Wound Class 2 - Clean-Contaminated Specialty Urology Preop Diagnosis RECURRENT UTI'S Postop Same As Preop No Postop Diagnosis RECURRENT UTI'S, Outcomes Met? Yes Last Modified By: GIUSEPPE Rushing RN, Ruthann 02/09/24 08:31:51 Post-Care Text: The patient is [...] Out Dieter SALMON MD, Verified (If Participants RAYMOND Rushing RNOR, Applicable) Maryam Quesada CST, Kimberly A Time Out Complete 02/09/24 [...] Signed By: GIUSEPPE Rushing RN, Ruthann 02/09/24 08:32 Normal [facility] Main OR Preoperative Recordo n 02-09-2024 Main OR Preoperative Record Holding Area Document Type FTURO Summary Primary Physician: Dieter SALMON MD Finalized Date/Time: 02/09/24 08:08:52 Pt. Name: ROSALIE FREEMAN/Sex: 1995 Female Med Rec #: [id number] Physician: Dieter SALMON MD Financial #: [id number] Pt. Type: O Room/Bed: / Admit/Disch: 02/09/24 [...] GIUSEPPE Rushing RN, Ruthann 02/09/24 08:08 Normal [facility] Operative Reporton Operative Report Patient: [...] of her recurrent urinary tract infections.. Normal [facility] Comment on above: Result Comment: Elec tronically Signed By: Dieter SALMON MD\.br\Date and Time Signed: 02/09/24 08:36 EDT Outpatient Surgery Discharge Instructionon 02-09-2024 Outpatient Surgery Discharge Instruction [id number]#1. 00TIFF Normal [facility] RAD - MISCon 01-29-2024 RAD - MISC [id number]#1.0 0TIFF Normal [facility] C Urineon 01-21-2024 Bacteria identified Cx Nom [...] Locations R1: This test was performed at: [facility], [address] [place] [address], [address] [place] [address], [facility] Comment on above: Performed By: #### 2 [id number] ####[facility] [id number] [place], [place] [id number] Lab Reportson 01-21-2024 Lab Reports [id number]#1. 00TIFF Normal [facility] Lab Reports [id number]#1. 00TIFF Normal [facility] Lab Reports [id number]#1. 00TIFF Normal [facility] Lab Reports [id number]. 00TIFF [facility] Lab Reports [id number]#1. 00TIFF [facility] Lab Reports [id number]#1. 00TIFF Normal [facility] RAD - CT Reporton 01-21-2024 RAD - CT Report [id number]#1. 00TIFF Normal [facility] RAD - Ultrasound Reporton RAD - Ultrasound Report [id number]#1. 00TIFF Normal [facility] RAD - Ultrasound Report [id number]#1. 00TIFF Normal [facility] Screenson 01-21-2024 Screens [id number]#1.0 0TIFF [facility] Ambulatory Visit Summaryon 0 01-19-2024 Ambulatory [...] Schedule the Following Appointments Follow Up with EMILIANA STEPHENS RASHMI HARPER When: Where: [address] [place] [address] Medications What How Much When Instructions New sulfamethoxazole-trime thoprim (Bactrim 400 mg-80 mg Tab) 1 Tablets By Mouth Every day as needed for UTI prevention Refills: 3 Pickup at [facility]/pharmacy #[id number] Unchanged guanfacine (guanfacine 3 mg oral [...] physician if questions or concerns Pharmacy Information [facility]/pharmacy #[id number]: [address] [place], [place] [id number] [phone] Allergies No Known Allergies No Known Medication [...] Trouble urinati (more content not included)... Normal [facility] Patient Educationon 01-19-20 Patient Education [...] this condition includes: ? Antibiotic medicine. ? Nwyd-tcm-rjywzya medicines to treat discomfort. ? Drinking enough [...] these instructions at home: Medicines ? Take tsdf-toj-hubqbrd and prescription medicines only as told by [...] Document Revie (more content not included)... Normal [facility] BNPon 04-17-2023 Natriuretic peptide B (Bld) [Mass/Vol] 246.0 pg/mL Normal <=450.0 [facility] Comment on above: Performed By: #### I NSULIN #### Laboratory [address] [address] [address] Saray Souza CARDIAC NELI ADMITon 023 CK [Catalytic activity/Vol] 47 U/L Normal 26-192 [facility] Comment on above: Performed By: #### I NSULIN #### Laboratory [address] [address] [address] Saray Souza CK.MB [Mass/Vol] 1.02 ng/mL Normal <=3.60 [facility] Comment on above: Performed By: #### I NSULIN #### Laboratory [address] [place] [address] Dr. Saray Souza HSTROP 4.5 pg/mL Normal 4.0-51.3 The Comment on above: Result Comment: CUT- OFF POINTS HAVE BEEN ESTABLISHED BASED ON THE FOURTH UNIVERSAL DEFINITIONS OF MYOCARDIAL INFARCTION. THE UPPER REFERENCE LIMIT (URL) OF TROPONIN, DEFINED THE 99TH PERCENTILE OF cTnI DISTRIBUTION IN A REFERENCE POPULATION, HAS BEEN CONFIRMED THE DECISION THRESHOLD FOR [place] DIAGNOSIS. Performed By: #### I NSULIN #### Laboratory [address] [place] [address] Dr. Saray Souza FRANKLIN 36 ng/mL Normal 9-82 The Comment on above: Performed By: #### I CURLYULIN #### Laboratory [address] [place] [address] Dr. Saray Souza CBC W MANUAL DIFFon 04-17-20 23 ATYPICAL LYMPH # Normal [facility] Comment on above: Performed By: #### C EDGARDO #### Laboratory [address] [place] [address] Dr. Saray Souza ATYPICAL LYMPH % Normal [facility] Comment on above: Performed By: #### C EDGARDO #### Laboratory [address] [place] [address] Dr. Saray Souza BAND # 0.3 103/ul Normal 0.0-0.3 The Comment on above: Performed By: #### C EDGARDO #### Laboratory [address] [place] [address] Dr. Saray Souza BAND % 1 % Normal 0-5 The Comment on above: Performed By: #### C EDGARDO #### Laboratory [address] [place] [address] Dr. Saray Souza BASOM # 0.00 103/ul Normal 0.00-0.10 The Comment on above: Performed By: #### C EDGARDO #### Laboratory [address] [place] [address] Dr. Saray Souza BASOM % 0.0 % Critically low 0.2-2.0 The [facility] Comment on above: Performed By: #### C BCPRESLEY #### Laboratory [address] [address] [address] Saray Souza BLAST # Normal [facility] Comment on above: Performed By: #### C EDGARDO #### Laboratory [address] [place] [address] Dr. Saray Souza BLAST % Normal [facility] Comment on above: Performed By: #### C BCPRESLEY #### Laboratory [address] [place] [address] Dr. Saray Souza CORRECTED WBC Normal 4.0-11.0 [facility] Comment on above: Performed By: #### C EDGARDO #### Laboratory [address] [place] [address] Dr. Saray Souza EOS # 0.00 103/ul Normal 0.00-0.70 [facility] Comment on above: Performed By: #### C EDGARDO #### Laboratory [address] [place] [address] Dr. Saray Souza EOS% 0.0 % Critically low 0.9-7.0 [facility] Comment on above: Performed By: #### C EDGARDO #### Laboratory [address] [place] [address] Dr. Saray Souza HCT 43.6 % Normal 36.0-48.0 [facility] [facility] Comment on above: Performed By: #### C EDGARDO #### Laboratory [address] [place] [address] Dr. Saray Souza HGB 14.7 g/dl Normal 12.0-16.0 [facility] Comment on above: Performed By: #### C EDGARDO #### Laboratory [address] [place] [address] Dr. Saray Souza LYMPHM # 1.55 103/ul Normal 1.20-3.80 [facility] Comment on above: Performed By: #### C EDGARDO #### Laboratory [address] [place] [address] Dr. Saray Souza LYMPHM% 6.0 % Critically low 20.5-60.0 [facility] Comment on above: Performed By: #### C EDGARDO #### Laboratory [address] [place] [address] Dr. Saray Souza MCH 30.3 pg Normal 26.7-34.0 [facility] Comment on above: Performed By: #### C EDGARDO #### Laboratory [address] [address] [address] Saray Souza MCHC 33.7 g/dl Normal 29.9-35.2 [facility] Comment on above: Performed By: #### C EDGARDO #### Laboratory [address] [place] [address] Dr. Saray Souza MCV 89.9 fL Normal 81.0-99.0 [facility] Comment on above: Performed By: #### C EDGARDO #### Laboratory [address] [place] [address] Dr. Saray Souza METAMYELOCYTE # Normal [facility] Comment on above: Performed By: #### C EDGARDO #### Laboratory [address] [place] [address] Dr. Saray Souza METAMYELOCYTE % Normal [facility] Comment on above: Performed By: #### C EDGARDO #### Laboratory [address] [place] [address] Dr. Saray Souza MONOM# 2.06 103/ul Critically high 0.30-0.80 [facility] Comment on above: Performed By: #### C EDGARDO #### Laboratory [address] [place] [address] Dr. Saray Souza MONOM% 8.0 % Normal 1.7-12.0 The Comment on above: Performed By: #### C EDGARDO #### Laboratory [address] [place] [address] Dr. Saray Souza MPV 8.8 fL Critically low 9.5-13.5 [facility] Comment on above: Performed By: #### C EDGARDO #### Laboratory [address] [place] [address] Dr. Saray Souza MYELOCYTE # Normal [facility] Comment on above: Performed By: #### Sweetie REYNOSO #### Laboratory [address] [place] [address] Dr. Saray Souza MYELOCYTE % Normal [facility] Comment on above: Performed By: #### C EDGARDO #### Laboratory [address] [place] [address] Dr. Saray Souza NRBC Normal [facility] Comment on above: Performed By: #### C EDGARDO #### Laboratory [address] [address] [address] Saray Souza PLT 397 103/ul Normal 150-450 [facility] Comment on above: Performed By: #### C EDGARDO #### Laboratory [address] [place] [address] Dr. Saray Souza RBC 4.85 106/ul Normal 4.20-5.40 [facility] Comment on above: Performed By: #### C EGDARDO #### Laboratory [address] [place] [address] Dr. Saray Souza RDW 12.0 % Normal 11.0-15.0 [facility] Comment on above: Performed By: #### C EDGARDO #### Laboratory [address] [place] [address] Dr. Saray Souza SEG # 21.93 103/ul Critically high 1.40-6.50 [facility] Comment on above: Performed By: #### C EDGARDO #### Laboratory [address] [place] [address] Dr. Saray Souza SEG % 85.0 % Critically high 43.0-75.0 [facility] Comment on above: Performed By: #### C EDGARDO #### Laboratory [address] [place] [address] Dr. Saray Souza WBC 25.8 103/ul Critically high 4.0-11.0 [facility] Comment on above: Performed By: #### Sweetie REYNOSO #### Laboratory [address] [place] [address] Dr. Saray Souza CULTURE URINEon 05-26-2023 CULTURE URINE Culture Observations : LORENZO TO FOLLOW. Isolate 1 Enterococcus faecalis 20,000 cfu/mL of Normal [facility] Comment on above: Performed By: #### C BC #### Laboratory [address] [place] [address] Dr. Saray Souza ER URINE PROFILEon 3 Bilirubin Ql (U) Negative Normal NEGATIVE [facility] Comment on above: Performed By: #### C BC #### Laboratory [address] [place] [address] Dr. Saray Souza Clarity (U) CLEAR Normal CLEAR The Comment on above: Performed By: #### C BC #### Laboratory [address] [place] [address] Dr. Saray Souza Color (U) LT. YELLOW Normal YELLOW [facility] Comment on above: Performed By: #### C BC #### Laboratory [address] [place] [address] Dr. Saray Souza ERUAHHumera A micrscopic examination will be performed if indicated. Normal The Comment on above: Performed By: #### C BC #### Laboratory [address] [place] [address] Dr. Saray Souza Glucose Ql (U) Negative Normal NEGATIVE [facility] Comment on above: Performed By: #### C BC #### Laboratory [address] [place] [address] Dr. Saray Souza Hemoglobin Ql (U) Negative Normal NEGATIVE [facility] Comment on above: Performed By: #### C BC #### Laboratory [address] [place] [address] Dr. Saray Souza Ketones Ql (U) Negative Normal NEGATIVE [facility] Comment on above: Performed By: #### C BC #### Laboratory [address] [place] [address] Dr. Saray Souza LEUKOCYTES SMALL Abnormal NEGATIVE The Comment on above: Performed By: #### C BC #### Laboratory [address] [place] [address] Dr. Saray Souza Nitrite Ql (U) Negative Normal NEGATIVE [facility] Comment on above: Performed By: #### C BC #### Laboratory [address] [place] [address] Dr. Saray Souza pH (U) 6.5 [pH] Normal 5-9 [facility] Comment on above: Performed By: #### C BC #### Laboratory [address] [place] [address] Dr. Saray Souza SPEC GRAVITY 1.025 Normal 1.005-<=1.025 [facility] Comment on above: Performed By: #### C BC #### Laboratory [address] [place] [address] Dr. Saray Souza UA PROTEIN Negative Normal NEGATIVE/ TRACE [facility] Comment on above: Performed By: #### C BC #### Laboratory [address] [place] [address] Dr. Saray Souza UR MICRO IND INDICATED Normal [facility] Comment on above: Performed By: #### C BC #### Laboratory [address] [place] [address] Dr. Saray Souza Urobilinogen Qn (U) 0.2 {Janine'U}/dL Normal 0.2 - 1. 0 [facility] Comment on above: Performed By: #### C BC #### Laboratory [address] [place] [address] Dr. Saray Souza URon 04-17-2023 , QUAL Negative Normal NEGATIVE [facility] Comment on above: Performed By: #### C BC #### Laboratory [address] [place] [address] Dr. Saray Souza PROF 14(COMP METB)on 023 Albumin [Mass/Vol] 3.0 g/dL Critically low 3.4-5.[address] [facility] Comment on above: Performed By: #### I NSULIN #### Laboratory [address] [place] [address] Dr. Saray Souza Albumin/Globulin [Mass ratio] 0.9 {ratio} Normal [facility] Comment on above: Performed By: #### I NSULIN #### Laboratory [address] [address] [address] Saray Souza ALP [Catalytic activity/Vol] 54 U/L Normal 46-116 [facility] Comment on above: Performed By: #### I NSULIN #### Laboratory [address] [address] [address] Saray Souza ALT [Catalytic activity/Vol] 27 U/L Normal 14-59 [facility] Comment on above: Performed By: #### I NSULIN #### Laboratory [address] [address] [address] Saray Souza Anion gap [Moles/Vol] 12.9 mmol/L Normal [facility] Comment on above: Performed By: #### I NSULIN #### Laboratory [address] [address] [address] Saray Souza AST [Catalytic activity/Vol] 12 U/L Critically low 15-37 [facility] Comment on above: Performed By: #### I NSULIN #### Laboratory [address] [address] [address] Saray Souza Bilirubin [Mass/Vol] 0.3 mg/dL Normal 0.2-1.0 [facility] Comment on above: Performed By: #### I NSULIN #### Laboratory [address] [address] [address] Saray Souza Calcium [Mass/Vol] 8.1 mg/dL Critically low 8.5-10.[address] [facility] Comment on above: Performed By: #### I NSULIN #### Laboratory [address] [address] [address] Saray Souza Chloride [Moles/Vol] 102 mmol/L Normal 98-107 [facility] Comment on above: Performed By: #### I NSULIN #### Laboratory [address] [address] [address] Saray Souza CO2 [Moles/Vol] 26.2 mmol/L Normal 21.0-32.0 [facility] Comment on above: Performed By: #### I NSULIN #### Laboratory [address] [address] [address] Saray Souza Creatinine [Mass/Vol] 0.87 mg/dL Normal 0.55-1.02 [facility] Comment on above: Performed By: #### I NSULIN #### Laboratory [address] [address] [address] Saray Souza EGFR-AF MICRONESIAN >60 Normal >=60 [facility] Comment on above: Performed By: #### I NSULIN #### Laboratory [address] [place] [address] Dr. Saray Souza EGFR-NON AF MICRONESIAN >60 Normal >=60 [facility] Comment on above: Performed By: #### I NSULIN #### Laboratory [address] [place] [address] Dr. Saray Souza Globulin (S) [Mass/Vol] 3.2 g/dL Normal [facility] Comment on above: Performed By: #### I NSULIN #### Laboratory [address] [address] [address] Saray Souza Glucose [Mass/Vol] 206 mg/dL Critically high 74-106 [facility] Comment on above: Performed By: #### I NSULIN #### Laboratory [address] [place] [address] Dr. Saray Souza Potassium [Moles/Vol] 4.1 mmol/L Normal 3.5-5.1 [facility] Comment on above: Performed By: #### I NSULIN #### Laboratory [address] [address] [address] Saray Souza Protein [Mass/Vol] 6.2 g/dL Critically low 6.4-8.[address] [facility] Comment on above: Performed By: #### I NSULIN #### Laboratory [address] [place] [address] Dr. Saray Souza Sodium [Moles/Vol] 137 mmol/L Normal 136-145 [facility] Comment on above: Performed By: #### I NSULIN #### Laboratory [address] [place] [address] Dr. Saray Souza Urea nitrogen [Mass/Vol] 19.0 mg/dL Critically high 7.0-18.0 The Comment on above: Performed By: #### I NSULIN #### Laboratory [address] [place] [address] Dr. Saray Souza Urea nitrogen/Creatinine [Mass ratio] 21.8 mg/mg Normal The Comment on above: Performed By: #### I NSULIN #### Laboratory [address] [place] [address] Dr. Saray Souza TSHon 04-17-2023 TSH 0.553 uIU/mL Normal 0.358-3.740 [facility] Comment on above: Performed By: #### I NSULIN #### Laboratory [address] [place] [address] Dr. Saray Souza URINE MICROSCOPIC ONLYon BACTERIA TRACE Abnormal NONE SEEN The Comment on above: Performed By: #### C BC #### Laboratory [address] [place] [address] Dr. Saray Souza Bacteria identified Cx Nom (U) INDICATED Normal The Comment on above: Performed By: #### C BC #### Laboratory [address] [place] [address] Dr. Saray Souza CAST NONE SEEN Normal NONE SEEN [facility] Comment on above: Performed By: #### C BC #### Laboratory [address] [place] [address] Dr. Saray Souza Crystals LM Nom (Urine sed) NONE SEEN Normal NONE SEEN The Comment on above: Performed By: #### C BC #### Laboratory [address] [place] [address] Dr. Saray Souza Epithelial cells LM Ql (Urine sed) RARE Normal NONE SEEN /RARE The Comment on above: Performed By: #### C BC #### Laboratory [address] [place] [address] Dr. Saray Souza MUCOUS NONE SEEN Normal NONE SEEN The Comment on above: Performed By: #### C BC #### Laboratory [address] [address] [address] Saray Souza RBC 0-2 Normal 0-2 [facility] Comment on above: Performed By: #### C BC #### Laboratory [address] [address] [address] Saray Souza WBC 5-10 Abnormal NONE SEEN The Comment on above: Performed By: #### C BC #### Laboratory [address] [address] [address] Saray Souza XR CHEST 2 Von [...] CAROL RAMIREZ Date: 2023-04-17 10:45 Normal The INSULINon 04-07-2023 Insulin 11.3 uIU/mL Normal 2.6-24.9 The Comment on above: Performed By: #### I NSULIN #### Laboratory [address] [place] [address] Dr. Saray Souza US KIDNEYS BLADDERon 023 [...] NANDINI MAYER Date: 2023-04-04 08:22 Normal The INSULINon 04-02-2023 Insulin 37.5 uIU/mL Critically high 2.6-24.9 [facility] Comment on above: Performed By: #### I NSULIN #### Laboratory [address] [place] [address] Dr. Saray Souza CBC AUTO DIFFon 04-01-2023 BASO # 0.0 103/ul Normal 0.0-0.1 The Comment on above: Performed By: #### C BC #### Laboratory [address] [place] [address] Dr. Saray Souza Basophils/100 WBC (Bld) 0.5 % Normal 0.2-2.0 [facility] Comment on above: Performed By: #### C BC #### Laboratory [address] [place] [address] Dr. Saray Souza EO # 0.2 103/ul Normal 0.0-0.7 The Comment on above: Performed By: #### C BC #### Laboratory [address] [place] [address] Dr. Saray Souza Eosinophils/100 WBC (Bld) 2.3 % Normal 0.9-7.0 [facility] Comment on above: Performed By: #### C BC #### Laboratory [address] [place] [address] Dr. Saray Souza Erythrocyte distribution width (RBC) [Ratio] 11.9 % Normal 11.0-15.0 The Comment on above: Performed By: #### C BC #### Laboratory [address] [place] [address] Dr. Saray Souza Hematocrit (Bld) [Volume fraction] 42.2 % Normal 36.0-48.0 [facility] Comment on above: Performed By: #### C BC #### Laboratory [address] [place] [address] Dr. Saray Souza Hemoglobin (Bld) [Mass/Vol] 13.7 g/dL Normal 12.0-16.0 [facility] Comment on above: Performed By: #### C BC #### Laboratory [address] [place] [address] Dr. Saray Souza IG # 0.02 10e3/ul Normal 0.00-0.03 [facility] Comment on above: Performed By: #### C BC #### Laboratory [address] [place] [address] Dr. Saray Souza IG % 0.3 % Normal 0.0-0.5 [facility] Comment on above: Performed By: #### C BC #### Laboratory [address] [place] [address] Dr. Saray Suoza LYMPH # 1.6 103/ul Normal 1.2-3.8 [facility] Comment on above: Performed By: #### C BC #### Laboratory [address] [place] [address] Dr. Saray Souza Lymphocytes/100 WBC (Bld) 21.5 % Normal 20.5-60.0 [facility] Comment on above: Performed By: #### C BC #### Laboratory [address] [place] [address] Dr. Saray Souza MANUAL DIFF REQ NO Normal [facility] Comment on above: Performed By: #### C BC #### Laboratory [address] [place] [address] Dr. Saray Souza MCH (RBC) [Entitic mass] 30.0 pg Normal 26.7-34.0 [facility] Comment on above: Performed By: #### C BC #### Laboratory [address] [place] [address] Dr. Saray Souza MCHC (RBC) [Mass/Vol] 32.5 g/dL Normal 29.9-35.2 [facility] Comment on above: Performed By: #### C BC #### Laboratory [address] [place] [address] Dr. Saray Souza MCV (RBC) [Entitic vol] 92.5 fL Normal 81.0-99.0 [facility] Comment on above: Performed By: #### C BC #### Laboratory [address] [place] [address] Dr. Saray Souza MONO # 0.7 103/ul Normal 0.3-0.8 [facility] Comment on above: Performed By: #### C BC #### Laboratory [address] [place] [address] Dr. Saray Souza Monocytes/100 WBC (Bld) 9.6 % Normal 1.7-12.0 [facility] Comment on above: Performed By: #### C BC #### Laboratory [address] [place] [address] Dr. Saray Souza NEUT # 5.0 103/ul Normal 1.4-6.5 [facility] Comment on above: Performed By: #### C BC #### Laboratory [address] [place] [address] Dr. Saray Souza Neutrophils/100 WBC (Bld) 65.8 % Normal 43.0-75.0 [facility] Comment on above: Performed By: #### C BC #### Laboratory [address] [place] [address] Dr. Saray Souza Platelet mean volume (Bld) [Entitic vol] 8.9 fL Critically low 9.5-13.5 [facility] Comment on above: Performed By: #### C BC #### Laboratory [address] [place] [address] Dr. Saray Suoza PLT 293 103/ul Normal 150-450 The Comment on above: Performed By: #### C BC #### Laboratory [address] [place] [address] Dr. Saray Souza RBC 4.56 106/ul Normal 4.20-5.40 The Comment on above: Performed By: #### C BC #### Laboratory [address] [place] [address] Dr. Saray Souza WBC 7.5 103/ul Normal 4.0-11.0 [facility] Comment on above: Performed By: #### C BC #### Laboratory [address] [place] [address] Dr. Saray Souza CULTURE URINEon 04-01-2023 CULTURE URINE Culture Observations : MODERATE GROWTH OF MIXED GENITAL CARMELO. NO POTENTIAL PATHOGENS SEEN. Normal [facility] Comment on above: Performed By: #### C BC #### Laboratory [address] [place] [address] Dr. Saray Souza FREE THYROXINE INDEX T7on FTI 2.51 Normal 1.30-4.50 [facility] Comment on above: Performed By: #### I NSULIN #### Laboratory [address] [place] [address] Dr. aSray Souza T3U 33.0 % Normal 30.0-39.0 [facility] Comment on above: Performed By: #### I NSULIN #### Laboratory [address] [place] [address] Dr. Saray Souza T4 [Mass/Vol] 7.60 ug/dL Normal 4.80-13.90 [facility] Comment on above: Performed By: #### I NSULIN #### Laboratory [address] [place] [address] Dr. Saray Souza IRONon 04-01-2023 Iron [Mass/Vol] 151.0 ug/dL Normal 50.0-170.0 [facility] Comment on above: Performed By: #### C BCMAN #### Laboratory [address] [place] [address] Dr. Saray Souza PROF 14(COMP METB)on 023 Albumin [Mass/Vol] 3.7 g/dL Normal 3.4-5.0 [facility] Comment on above: Performed By: #### C BCMAN #### Laboratory [address] [place] [address] Dr. Saray Souza Albumin/Globulin [Mass ratio] 1.1 {ratio} Normal [facility] Comment on above: Performed By: #### C BCMAN #### Laboratory [address] [place] [address] Dr. Saray Souza ALP [Catalytic activity/Vol] 81 U/L Normal 46-116 [facility] Comment on above: Performed By: #### C EDGARDO #### Laboratory [address] [place] [address] Dr. Saray Souza ALT [Catalytic activity/Vol] 33 U/L Normal 14-59 [facility] Comment on above: Performed By: #### C EDGARDO #### Laboratory [address] [place] [address] Dr. Saray Souza Anion gap [Moles/Vol] 10.2 mmol/L Normal [facility] Comment on above: Performed By: #### C EDGARDO #### Laboratory [address] [place] [address] Dr. Saray Souza AST [Catalytic activity/Vol] 22 U/L Normal 15-37 [facility] Comment on above: Performed By: #### C EDGARDO #### Laboratory [address] [place] [address] Dr. Saray Souza Bilirubin [Mass/Vol] 0.3 mg/dL Normal 0.2-1.0 [facility] Comment on above: Performed By: #### C EDGARDO #### Laboratory [address] [place] [address] Dr. Saray Souza Calcium [Mass/Vol] 8.6 mg/dL Normal 8.5-10.1 [facility] Comment on above: Performed By: #### C EDGARDO #### Laboratory [address] [place] [address] Dr. Saray Souza Chloride [Moles/Vol] 105 mmol/L Normal 98-107 [facility] Comment on above: Performed By: #### C EDGARDO #### Laboratory [address] [place] [address] Dr. Saray Souza CO2 [Moles/Vol] 30.4 mmol/L Normal 21.0-32.0 [facility] Comment on above: Performed By: #### C EDGARDO #### Laboratory [address] [place] [address] Dr. Saray Souza Creatinine [Mass/Vol] 0.72 mg/dL Normal 0.55-1.02 [facility] Comment on above: Performed By: #### C BCMAN #### Laboratory [address] [address] [address] Saray Souza EGFR-AF MICRONESIAN >60 Normal >=60 [facility] Comment on above: Performed By: #### C BCMAN #### Laboratory [address] [address] [address] Saray Souza EGFR-NON AF MICRONESIAN >60 Normal >=60 [facility] Comment on above: Performed By: #### C BCMAN #### Laboratory [address] [address] [address] Saray Souza Globulin (S) [Mass/Vol] 3.5 g/dL Normal [facility] Comment on above: Performed By: #### C BCMAN #### Laboratory [address] [address] [address] Saray Souza Glucose [Mass/Vol] 89 mg/dL Normal 74-106 [facility] Comment on above: Performed By: #### C BCMAN #### Laboratory [address] [address] [address] Saray Souza Potassium [Moles/Vol] 3.6 mmol/L Normal 3.5-5.1 [facility] Comment on above: Performed By: #### C BCMAN #### Laboratory [address] [address] [address] Saray Souza Protein [Mass/Vol] 7.2 g/dL Normal 6.4-8.2 [facility] Comment on above: Performed By: #### C BCMAN #### Laboratory [address] [address] [address] Saray Souza Sodium [Moles/Vol] 142 mmol/L Normal 136-145 [facility] Comment on above: Performed By: #### C BCMAN #### Laboratory [address] [address] [address] Saray Souza Urea nitrogen [Mass/Vol] 12.0 mg/dL Normal 7.0-18.0 [facility] Comment on above: Performed By: #### C EDGARDO #### Laboratory [address] [place] [address] Dr. Saray Souza Urea nitrogen/Creatinine [Mass ratio] 16.7 mg/mg Normal The Comment on above: Performed By: #### C EDGARDO #### Laboratory [address] [place] [address] Dr. Saray Souza TSHon 04-01-2023 TSH 1.708 uIU/mL Normal 0.358-3.740 [facility] Comment on above: Performed By: #### I NSULIN #### Laboratory [address] [place] [address] Dr. Saray Souza UA RANDOM W/MICROSCOPICon BACTERIA SMALL Abnormal NONE SEEN [facility] Comment on above: Performed By: #### I NSULIN #### Laboratory [address] [place] [address] Dr. Saray Souza Bilirubin Ql (U) Negative Normal NEGATIVE [facility] Comment on above: Performed By: #### I NSULIN #### Laboratory [address] [place] [address] Dr. Saray Souza CAST NONE SEEN Normal NONE SEEN The Comment on above: Performed By: #### I NSULIN #### Laboratory [address] [place] [address] Dr. Saray Souza Clarity (U) CLEAR Normal CLEAR [facility] Comment on above: Performed By: #### I NSULIN #### Laboratory [address] [place] [address] Dr. Saray Souza Color (U) YELLOW Normal YELLOW The Comment on above: Performed By: #### I NSULIN #### Laboratory [address] [place] [address] Dr. Saray Souza Crystals LM Nom (Urine sed) NONE SEEN Normal NONE SEEN [facility] Comment on above: Performed By: #### I NSULIN #### Laboratory [address] [place] [address] Dr. Saray Souza Epithelial cells LM Ql (Urine sed) FEW Abnormal NONE SEEN /RARE The Comment on above: Performed By: #### I NSULIN #### Laboratory [address] [address] [address] Saray Souza Glucose Ql (U) Negative Normal NEGATIVE [facility] Comment on above: Performed By: #### I NSULIN #### Laboratory [address] [place] [address] Dr. Saray Souza Hemoglobin Ql (U) Negative Normal NEGATIVE [facility] Comment on above: Performed By: #### I NSULIN #### Laboratory [address] [address] [address] Saray Souza Ketones Ql (U) TRACE Abnormal NEGATIVE [facility] Comment on above: Performed By: #### I NSULIN #### Laboratory [address] [place] [address] Dr. Saray Souza LEUKOCYTES SMALL Abnormal NEGATIVE [facility] Comment on above: Performed By: #### I NSULIN #### Laboratory [address] [address] [address] Saray Souza MUCOUS NONE SEEN Normal NONE SEEN The Comment on above: Performed By: #### I NSULIN #### Laboratory [address] [place] [address] Dr. Saray Souza Nitrite Ql (U) Negative Normal NEGATIVE [facility] Comment on above: Performed By: #### I NSULIN #### Laboratory [address] [place] [address] Dr. Saray Souza pH (U) 5.5 [pH] Normal 5-9 [facility] Comment on above: Performed By: #### I NSULIN #### Laboratory [address] [address] [address] Saray Souza RBC 0-2 Normal 0-2 [facility] Comment on above: Performed By: #### I NSULIN #### Laboratory [address] [place] [address] Dr. Saray Souza SPEC GRAVITY >=1.030 Abnormal 1.005-<=1.025 [facility] Comment on above: Performed By: #### I NSULIN #### Laboratory [address] [place] [address] Dr. Sarya Souza UA PROTEIN Negative Normal NEGATIVE/ TRACE The Comment on above: Performed By: #### I NSULIN #### Laboratory [address] [place] [address] Dr. Saray Souza Urobilinogen Qn (U) 0.2 {Janine'U}/dL Normal 0.2 - 1. 0 [facility] Comment on above: Performed By: #### I NSULIN #### Laboratory [address] [place] [address] Dr. Saray Souza WBC 5-10 Abnormal NONE SEEN The Comment on above: Performed By: #### I NSULIN #### Laboratory [address] [place] [address] Dr. Saray Souza INSULINon 02-14-2023 Insulin 12.8 uIU/mL Normal 2.6-24.9 [facility] Comment on above: Performed By: #### C BC #### Laboratory [address] [place] [address] Dr. Saray Souza CBC AUTO DIFFon 02-13-2023 BASO # 0.0 103/ul Normal 0.0-0.1 [facility] Comment on above: Performed By: #### C BC #### Laboratory [address] [place] [address] Dr. Saray Souza Basophils/100 WBC (Bld) 0.4 % Normal 0.2-2.0 [facility] Comment on above: Performed By: #### C BC #### Laboratory [address] [place] [address] Dr. Saray Souza EO # 0.1 103/ul Normal 0.0-0.7 The Comment on above: Performed By: #### C BC #### Laboratory [address] [place] [address] Dr. Saray Souza Eosinophils/100 WBC (Bld) 1.6 % Normal 0.9-7.0 [facility] Comment on above: Performed By: #### C BC #### Laboratory [address] [place] [address] Dr. Saray Souza Erythrocyte distribution width (RBC) [Ratio] 11.9 % Normal 11.0-15.0 [facility] Comment on above: Performed By: #### C BC #### Laboratory [address] [place] [address] Dr. Saray Souza Hematocrit (Bld) [Volume fraction] 41.9 % Normal 36.0-48.0 [facility] Comment on above: Performed By: #### C BC #### Laboratory [address] [place] [address] Dr. Saray Souza Hemoglobin (Bld) [Mass/Vol] 13.7 g/dL Normal 12.0-16.0 [facility] Comment on above: Performed By: #### C BC #### Laboratory [address] [place] [address] Dr. Saray Souza IG # 0.02 10e3/ul Normal 0.00-0.03 [facility] Comment on above: Performed By: #### C BC #### Laboratory [address] [place] [address] Dr. Saray Souza IG % 0.3 % Normal 0.0-0.5 [facility] Comment on above: Performed By: #### C BC #### Laboratory [address] [place] [address] Dr. Saray oSuza LYMPH # 1.4 103/ul Normal 1.2-3.8 The Comment on above: Performed By: #### C BC #### Laboratory [address] [place] [address] Dr. Saray Souza Lymphocytes/100 WBC (Bld) 18.6 % Critically low 20.5-60.0 [facility] Comment on above: Performed By: #### C BC #### Laboratory [address] [place] [address] Dr. Saray Souza MANUAL DIFF REQ NO Normal [facility] Comment on above: Performed By: #### C BC #### Laboratory [address] [place], [place] [id number] Dr. Saray Souza MCH (RBC) [Entitic mass] 29.9 pg Normal 26.7-34.0 The Comment on above: Performed By: #### C BC #### Laboratory [address] [place] [address] Dr. Saray Souza MCHC (RBC) [Mass/Vol] 32.7 g/dL Normal 29.9-35.2 The Comment on above: Performed By: #### C BC #### Laboratory [address] [place] [address] Dr. Saray Souza MCV (RBC) [Entitic vol] 91.5 fL Normal 81.0-99.0 The Comment on above: Performed By: #### C BC #### Laboratory [address] [place] [address] Dr. Saray Souza MONO # 0.6 103/ul Normal 0.3-0.8 The Comment on above: Performed By: #### C BC #### Laboratory [address] [place] [address] Dr. Saray Souza Monocytes/100 WBC (Bld) 8.3 % Normal 1.7-12.0 The Comment on above: Performed By: #### C BC #### Laboratory [address] [place] [address] Dr. Saray Souza NEUT # 5.5 103/ul Normal 1.4-6.5 The Comment on above: Performed By: #### C BC #### Laboratory [address] [place] [address] Dr. Saray Souza Neutrophils/100 WBC (Bld) 70.8 % Normal 43.0-75.0 The Comment on above: Performed By: #### C BC #### Laboratory [address] [place] [address] Dr. Saray Souza Platelet mean volume (Bld) [Entitic vol] 9.0 fL Critically low 9.5-13.5 The Comment on above: Performed By: #### C BC #### Laboratory [address] [address] [address] Saray Souza PLT 271 103/ul Normal 150-450 The Comment on above: Performed By: #### C BC #### Laboratory [address] [address] [address] Saray Souza RBC 4.58 106/ul Normal 4.20-5.40 [facility] Comment on above: Performed By: #### C BC #### Laboratory [address] [address] [address] Saray Souza WBC 7.7 103/ul Normal 4.0-11.0 [facility] Comment on above: Performed By: #### C BC #### Laboratory [address] [place] [address] Dr. Saray Souza FREE THYROXINE INDEX T7on FTI 2.56 Normal 1.30-4.50 [facility] Comment on above: Performed By: #### I NSULIN #### Laboratory [address] [place] [address] Dr. Saray Souza T3U 36.0 % Normal 30.0-39.0 [facility] Comment on above: Performed By: #### I NSULIN #### Laboratory [address] [place] [address] Dr. Saray Souza T4 [Mass/Vol] 7.10 ug/dL Normal 4.80-13.90 [facility] Comment on above: Performed By: #### I NSULIN #### Laboratory [address] [place] [address] Dr. Saray Souza IRONon 02-13-2023 Iron [Mass/Vol] 130.0 ug/dL Normal 50.0-170.0 [facility] Comment on above: Performed By: #### C BCMAN #### Laboratory [address] [place] [address] Dr. Saray Souza PROF 14(COMP METB)on 023 Albumin [Mass/Vol] 3.8 g/dL Normal 3.4-5.0 [facility] Comment on above: Performed By: #### I NSULIN #### Laboratory [address] [address] [address] Saray Souza Albumin/Globulin [Mass ratio] 1.2 {ratio} Normal [facility] Comment on above: Performed By: #### I NSULIN #### Laboratory [address] [address] [address] Saray Souza ALP [Catalytic activity/Vol] 82 U/L Normal 46-116 [facility] Comment on above: Performed By: #### I NSULIN #### Laboratory [address] [place] [address] Dr. Saray Souza ALT [Catalytic activity/Vol] 25 U/L Normal 14-59 [facility] Comment on above: Performed By: #### I NSULIN #### Laboratory [address] [place] [address] Dr. Saray Souza Anion gap [Moles/Vol] 12.7 mmol/L Normal [facility] Comment on above: Performed By: #### I NSULIN #### Laboratory [address] [place] [address] Dr. Saray Souza AST [Catalytic activity/Vol] 19 U/L Normal 15-37 [facility] Comment on above: Performed By: #### I NSULIN #### Laboratory [address] [place] [address] Dr. Saray Souza Bilirubin [Mass/Vol] 0.3 mg/dL Normal 0.2-1.0 [facility] Comment on above: Performed By: #### I NSULIN #### Laboratory [address] [place] [address] Dr. Saray Souza Calcium [Mass/Vol] 8.8 mg/dL Normal 8.5-10.1 [facility] Comment on above: Performed By: #### I NSULIN #### Laboratory [address] [place] [address] Dr. Saray Souza Chloride [Moles/Vol] 101 mmol/L Normal 98-107 The Comment on above: Performed By: #### I NSULIN #### Laboratory [address] [place] [address] Dr. Saray Souza CO2 [Moles/Vol] 27.3 mmol/L Normal 21.0-32.0 [facility] Comment on above: Performed By: #### I NSULIN #### Laboratory [address] [place] [address] Dr. Saray Souza Creatinine [Mass/Vol] 0.69 mg/dL Normal 0.55-1.02 The Comment on above: Performed By: #### I NSULIN #### Laboratory [address] [place] [address] Dr. Saray Souza EGFR-AF MICRONESIAN >60 Normal >=60 [facility] Comment on above: Performed By: #### I NSULIN #### Laboratory [address] [place] [address] Dr. Saray Souza EGFR-NON AF MICRONESIAN >60 Normal >=60 The Comment on above: Performed By: #### I NSULIN #### Laboratory [address] [place] [address] Dr. Saray Souza Globulin (S) [Mass/Vol] 3.3 g/dL Normal [facility] Comment on above: Performed By: #### I NSULIN #### Laboratory [address] [place] [address] Dr. Saray Souza Glucose [Mass/Vol] 83 mg/dL Normal 74-106 [facility] Comment on above: Performed By: #### I NSULIN #### Laboratory [address] [place] [address] Dr. Saray Souza Potassium [Moles/Vol] 4.0 mmol/L Normal 3.5-5.1 The Comment on above: Performed By: #### I NSULIN #### Laboratory [address] [place] [address] Dr. Saray Souza Protein [Mass/Vol] 7.1 g/dL Normal 6.4-8.2 [facility] Comment on above: Performed By: #### I NSULIN #### Laboratory [address] [place] [address] Dr. Saray Souza Sodium [Moles/Vol] 137 mmol/L Normal 136-145 [facility] Comment on above: Performed By: #### I NSULIN #### Laboratory [address] [place] [address] Dr. Saray Souza Urea nitrogen [Mass/Vol] 10.0 mg/dL Normal 7.0-18.0 [facility] Comment on above: Performed By: #### I NSULIN #### Laboratory [address] [place] [address] Dr. Saray Souza Urea nitrogen/Creatinine [Mass ratio] 14.5 mg/mg Normal [facility] Comment on above: Performed By: #### I NSULIN #### Laboratory [address] [place] [address] Dr. Saray Souza TSHon 02-13-2023 TSH 2.745 uIU/mL Normal 0.358-3.740 [facility] Comment on above: Performed By: #### I NSULIN #### Laboratory [address] [place] [address] Dr. Saray Souza AMYLASEon 02-04-2023 Amylase [Catalytic activity/Vol] 45 U/L Normal 25-115 [facility] Comment on above: Performed By: #### T SH, CMP, HSTROPN, LIPA, LINDA #### Laboratory [address] [place] [address] Dr. Saray Souza CBC AUTO DIFFon 02-04-2023 BASO # 0.0 103/ul Normal 0.0-0.1 [facility] Comment on above: Performed By: #### C BC #### Laboratory [address] [place] [address] Dr. Saray Souza Basophils/100 WBC (Bld) 0.4 % Normal 0.2-2.0 [facility] Comment on above: Performed By: #### C BC #### Laboratory [address] [place] [address] Dr. Saray Souza EO # 0.1 103/ul Normal 0.0-0.7 [facility] Comment on above: Performed By: #### C BC #### Laboratory [address] [place] [address] Dr. Saray Souza Eosinophils/100 WBC (Bld) 1.7 % Normal 0.9-7.0 The Comment on above: Performed By: #### C BC #### Laboratory [address] [place] [address] Dr. Saray Souza Erythrocyte distribution width (RBC) [Ratio] 12.0 % Normal 11.0-15.0 [facility] Comment on above: Performed By: #### C BC #### Laboratory [address] [place] [address] Dr. Saray Souza Hematocrit (Bld) [Volume fraction] 42.3 % Normal 36.0-48.0 [facility] Comment on above: Performed By: #### C BC #### Laboratory [address] [place] [address] Dr. Saray Souza Hemoglobin (Bld) [Mass/Vol] 13.9 g/dL Normal 12.0-16.0 [facility] Comment on above: Performed By: #### C BC #### Laboratory [address] [place] [address] Dr. Saray Souza IG # 0.03 10e3/ul Normal 0.00-0.03 [facility] Comment on above: Performed By: #### C BC #### Laboratory [address] [place] [address] Dr. Saray Souza IG % 0.4 % Normal 0.0-0.5 The Comment on above: Performed By: #### C BC #### Laboratory [address] [place] [address] Dr. Saray Souza LYMPH # 1.5 103/ul Normal 1.2-3.8 The Comment on above: Performed By: #### C BC #### Laboratory [address] [place] [address] Dr. Saray Souza Lymphocytes/100 WBC (Bld) 20.4 % Critically low 20.5-60.0 The Comment on above: Performed By: #### C BC #### Laboratory [address] [place] [address] Dr. Saray Souza MANUAL DIFF REQ NO Normal [facility] Comment on above: Performed By: #### C BC #### Laboratory [address] [place] [address] Dr. Saray Souza MCH (RBC) [Entitic mass] 30.0 pg Normal 26.7-34.0 [facility] Comment on above: Performed By: #### C BC #### Laboratory [address] [place] [address] Dr. Saray Souza MCHC (RBC) [Mass/Vol] 32.9 g/dL Normal 29.9-35.2 The Comment on above: Performed By: #### C BC #### Laboratory [address] [place] [address] Dr. Saray Souza MCV (RBC) [Entitic vol] 91.2 fL Normal 81.0-99.0 [facility] Comment on above: Performed By: #### C BC #### Laboratory [address] [place] [address] Dr. Saray Souza MONO # 0.6 103/ul Normal 0.3-0.8 [facility] Comment on above: Performed By: #### C BC #### Laboratory [address] [place] [address] Dr. Saray Souza Monocytes/100 WBC (Bld) 7.7 % Normal 1.7-12.0 [facility] Comment on above: Performed By: #### C BC #### Laboratory [address] [place] [address] Dr. Saray Souza NEUT # 5.2 103/ul Normal 1.4-6.5 The Comment on above: Performed By: #### C BC #### Laboratory [address] [place] [address] Dr. Saray Souza Neutrophils/100 WBC (Bld) 69.4 % Normal 43.0-75.0 [facility] Comment on above: Performed By: #### C BC #### Laboratory [address] [place] [address] Dr. Saray Souza Platelet mean volume (Bld) [Entitic vol] 9.0 fL Critically low 9.5-13.5 [facility] Comment on above: Performed By: #### C BC #### Laboratory [address] [place] [address] Dr. Saray Souza PLT 292 103/ul Normal 150-450 The Comment on above: Performed By: #### C BC #### Laboratory [address] [place] [address] Dr. Saray Souza RBC 4.64 106/ul Normal 4.20-5.40 [facility] Comment on above: Performed By: #### C BC #### Laboratory [address] [place] [address] Dr. Saray Souza WBC 7.5 103/ul Normal 4.0-11.0 [facility] Comment on above: Performed By: #### C BC #### Laboratory [address] [place] [address] Dr. Saray Souza CULTURE URINEon 02-04-2023 CULTURE URINE Culture Observations : LIGHT GROWTH OF MIXED GENITAL CARMELO. NO POTENTIAL PATHOGENS SEEN. Normal [facility] Comment on above: Performed By: #### C BC #### Laboratory [address] [place] [address] Dr. Saray Souza ER URINE PROFILEon 3 Bilirubin Ql (U) Negative Normal NEGATIVE [facility] Comment on above: Performed By: #### C BC #### Laboratory [address] [place] [address] Dr. Saray Souza Clarity (U) CLEAR Normal CLEAR The Comment on above: Performed By: #### C BC #### Laboratory [address] [place] [address] Dr. Saray Souza Color (U) LT. YELLOW Normal YELLOW The Comment on above: Performed By: #### C BC #### Laboratory [address] [place] [address] Dr. Saray Souza ERUAHD A micrscopic examination will be performed if indicated. Normal The Comment on above: Performed By: #### C BC #### Laboratory [address] [place] [address] Dr. Saray Souza Glucose Ql (U) Negative Normal NEGATIVE [facility] Comment on above: Performed By: #### C BC #### Laboratory [address] [place] [address] Dr. Saray Souza Hemoglobin Ql (U) Negative Normal NEGATIVE [facility] Comment on above: Performed By: #### C BC #### Laboratory [address] [place] [address] Dr. Saray Souza Ketones Ql (U) Negative Normal NEGATIVE [facility] Comment on above: Performed By: #### C BC #### Laboratory [address] [place] [address] Dr. Saray Souza LEUKOCYTES MODERATE Abnormal NEGATIVE [facility] Comment on above: Performed By: #### C BC #### Laboratory [address] [place] [address] Dr. Saray Souza Nitrite Ql (U) Negative Normal NEGATIVE [facility] Comment on above: Performed By: #### C BC #### Laboratory [address] [place] [address] Dr. Saray Souza pH (U) 5.5 [pH] Normal 5-9 [facility] Comment on above: Performed By: #### C BC #### Laboratory [address] [place] [address] Dr. Saray Souza SPEC GRAVITY >=1.030 Abnormal 1.005-<=1.025 [facility] Comment on above: Performed By: #### C BC #### Laboratory [address] [place] [address] Dr. Saray Souza UA PROTEIN Negative Normal NEGATIVE/ TRACE The Comment on above: Performed By: #### C BC #### Laboratory [address] [place] [address] Dr. Saray Souza UR MICRO IND INDICATED Normal [facility] Comment on above: Performed By: #### C BC #### Laboratory [address] [place] [address] Dr. Saray Souza Urobilinogen Qn (U) 0.2 {Janine'U}/dL Normal 0.2 - 1. 0 [facility] Comment on above: Performed By: #### C BC #### Laboratory [address] [place] [address] Dr. Saray Souza LIPASEon 02-04-2023 Lipase [Catalytic activity/Vol] 97.0 U/L Normal 73.0-393.0 [facility] Comment on above: Performed By: #### T SH, CMP, HSTROPN, LIPA, LINDA #### Laboratory [address] [place] [address] Dr. Saray Souza URon 02-04-2023 , QUAL Negative Normal NEGATIVE [facility] Comment on above: Performed By: #### C BC #### Laboratory [address] [place] [address] Dr. Saray Souza PROF 14(COMP METB)on 023 Albumin [Mass/Vol] 3.5 g/dL Normal 3.4-5.0 [facility] Comment on above: Performed By: #### T SH, CMP, HSTROPN, LIPA, LINDA #### Laboratory [address] [place] [address] Dr. Saray Souza Albumin/Globulin [Mass ratio] 1.2 {ratio} Normal [facility] Comment on above: Performed By: #### T SH, CMP, HSTROPN, LIPA, LINDA #### Laboratory [address] [place] [address] Dr. Saray Souza ALP [Catalytic activity/Vol] 78 U/L Normal 46-116 The Comment on above: Performed By: #### T SH, CMP, HSTROPN, LIPA, LINDA #### Laboratory [address] [place] [address] Dr. Saray Souza ALT [Catalytic activity/Vol] 24 U/L Normal 14-59 The Comment on above: Performed By: #### T SH, CMP, HSTROPN, LIPA, LINDA #### Laboratory [address] [place] [address] Dr. Saray Souza Anion gap [Moles/Vol] 7.9 mmol/L Normal [facility] Comment on above: Performed By: #### T SH, CMP, HSTROPN, LIPA, LINDA #### Laboratory [address] [place] [address] Dr. Saray Souza AST [Catalytic activity/Vol] 16 U/L Normal 15-37 The Comment on above: Performed By: #### T SH, CMP, HSTROPN, LIPA, LINDA #### Laboratory [address] [place] [address] Dr. Saray Souza Bilirubin [Mass/Vol] 0.3 mg/dL Normal 0.2-1.0 [facility] Comment on above: Performed By: #### T SH, CMP, HSTROPN, LIPA, LINDA #### Laboratory [address] [place] [address] Dr. Saray Souaz Calcium [Mass/Vol] 8.6 mg/dL Normal 8.5-10.1 [facility] Comment on above: Performed By: #### T SH, CMP, HSTROPN, LIPA, LINDA #### Laboratory [address] [place] [address] Dr. Saray Souza Chloride [Moles/Vol] 105 mmol/L Normal 98-107 The Comment on above: Performed By: #### T SH, CMP, HSTROPN, LIPA, LINDA #### Laboratory [address] [place] [address] Dr. Saray Souza CO2 [Moles/Vol] 28.9 mmol/L Normal 21.0-32.0 [facility] Comment on above: Performed By: #### T SH, CMP, HSTROPN, LIPA, LINDA #### Laboratory [address] [place] [address] Dr. Saray Souza Creatinine [Mass/Vol] 0.67 mg/dL Normal 0.55-1.02 The Comment on above: Performed By: #### T SH, CMP, HSTROPN, LIPA, LINDA #### Laboratory [address] [place] [address] Dr. Saray Souza EGFR-AF MICRONESIAN >60 Normal >=60 [facility] Comment on above: Performed By: #### T SH, CMP, HSTROPN, LIPA, LINDA #### Laboratory [address] [place] [address] Dr. Saray Souza EGFR-NON AF MICRONESIAN >60 Normal >=60 The Comment on above: Performed By: #### T SH, CMP, HSTROPN, LIPA, LINDA #### Laboratory [address] [place] [address] Dr. Saray Souza Globulin (S) [Mass/Vol] 3.0 g/dL Normal [facility] Comment on above: Performed By: #### T SH, CMP, HSTROPN, LIPA, LINDA #### Laboratory [address] [place] [address] Dr. Saray Souza Glucose [Mass/Vol] 97 mg/dL Normal 74-106 [facility] Comment on above: Performed By: #### T SH, CMP, HSTROPN, LIPA, LINDA #### Laboratory [address] [place] [address] Dr. Saray Souza Potassium [Moles/Vol] 3.8 mmol/L Normal 3.5-5.1 The Comment on above: Performed By: #### T SH, CMP, HSTROPN, LIPA, LINDA #### Laboratory [address] [place] [address] Dr. Saray Souza Protein [Mass/Vol] 6.5 g/dL Normal 6.4-8.2 [facility] Comment on above: Performed By: #### T SH, CMP, HSTROPN, LIPA, LINDA #### Laboratory [address] [place] [address] Dr. Saray Souza Sodium [Moles/Vol] 138 mmol/L Normal 136-145 [facility] Comment on above: Performed By: #### T SH, CMP, HSTROPN, LIPA, LINDA #### Laboratory [address] [address] [address] Saray Souza Urea nitrogen [Mass/Vol] 13.0 mg/dL Normal 7.0-18.0 [facility] Comment on above: Performed By: #### T SH, CMP, HSTROPN, LIPA, LINDA #### Laboratory [address] [place] [address] Dr. Saray Souza Urea nitrogen/Creatinine [Mass ratio] 19.4 mg/mg Normal The Comment on above: Performed By: #### T SH, CMP, HSTROPN, LIPA, LINDA #### Laboratory [address] [place] [address] Dr. Saray Souza TROPONIN, HIGH SENSITIVITYon 02-04-2023 HSTROP 4.0 pg/mL Normal 4.0-51.3 The Comment on above: Result Comment: CUT- OFF POINTS HAVE BEEN ESTABLISHED BASED ON THE FOURTH UNIVERSAL DEFINITIONS OF MYOCARDIAL INFARCTION. THE UPPER REFERENCE LIMIT (URL) OF TROPONIN, DEFINED THE 99TH PERCENTILE OF cTnI DISTRIBUTION IN A REFERENCE POPULATION, HAS BEEN CONFIRMED THE DECISION THRESHOLD FOR [place] DIAGNOSIS. Performed By: #### T SH, CMP, HSTROPN, LIPA, LINDA #### Laboratory [address] [place] [address] Dr. Saray Souza TSHon 02-04-2023 TSH 2.478 uIU/mL Normal 0.358-3.740 [facility] Comment on above: Performed By: #### T SH, CMP, HSTROPN, LIPA, LINDA #### Laboratory [address] [place] [address] Dr. Saray Souza URINE MICROSCOPIC ONLYon BACTERIA MODERATE Abnormal NONE SEEN The Comment on above: Performed By: #### C BC #### Laboratory [address] [place] [address] Dr. Saray Souza Bacteria identified Cx Nom (U) INDICATED Normal The Comment on above: Performed By: #### C BC #### Laboratory [address] [place] [address] Dr. Saray Souza CAST NONE SEEN Normal NONE SEEN The Comment on above: Performed By: #### C BC #### Laboratory [address] [place] [address] Dr. Saray Souza Crystals LM Nom (Urine sed) NONE SEEN Normal NONE SEEN [facility] Comment on above: Performed By: #### C BC #### Laboratory [address] [place] [address] Dr. Saray Souza Epithelial cells LM Ql (Urine sed) MODERATE Abnormal NONE SEEN /RARE The Comment on above: Performed By: #### C BC #### Laboratory [address] [place] [address] Dr. Saray Souza MUCOUS NONE SEEN Normal NONE SEEN [facility] Comment on above: Performed By: #### C BC #### Laboratory [address] [place] [address] Dr. Saray Souza RBC 5-10 Abnormal 0-2 The Comment on above: Performed By: #### C BC #### Laboratory [address] [place] [address] Dr. Saray Souza WBC 10-20 Abnormal NONE SEEN [facility] Comment on above: Performed By: #### C BC #### Laboratory [address] [place] [address] Dr. Saray Souza [facility] SARS-CoV-2 (COVID-19) RNA DAYDAY+probe Ql (Unsp spec) Not detected Normal NOT DETECTED The Comment on above: Result Comment: When diagnostic [...] for this test is supported by the [place] of Health and Human Service's declaration that [...] used). Performed By: #### C BC #### Laboratory [address] [place] [address] Dr. Saray Souza INFLUENZA A AND B AGon 10-20 INFLUANE SEE BELOW Normal The Comment on above: Result Comment: Nega tive for Flu A protein angiten. Infection due to Flu A cannot be ruled out. Flu A angiten in the sample may be below the detection limit of the test. Performed By: #### C BC #### Laboratory [address] [place] [address] Dr. Saray Souza INFLUBNEGH SEE BELOW Normal [facility] Comment on above: Result Comment: Nega tive for Flu B protein antigen. Infection due to Flu B cannot be ruled out. Flu B antigen in the sample may be below the detection limit of the test. Performed By: #### C BC #### Laboratory [address] [place] [address] Dr. Saray Souza INFLUENZA A AG Negative Normal NEGATIVE SEE COMMENT [facility] Comment on above: Performed By: #### C BC #### Laboratory [address] [place] [address] Dr. Saray Souza INFLUENZA B AG Negative Normal NEGATIVE SEE COMMENT The Comment on above: Performed By: #### C BC #### Laboratory [address] [place] [address] Dr. Saray Souza INTERNAL CONTROLS Within Normal Limits Normal Wi thin Normal Limits The Comment on above: Performed By: #### C BC #### Laboratory [address] [place] [address] Dr. Saray Souza STREPT SCREENon 10-20-2022 STREP SCREEN A Positive Abnormal NEGATIVE The [facility] Comment on above: Performed By: #### C BC #### Laboratory [address] [place] [address] Dr. Saray Souza XR SHOULDER RT INJon 07-18-2 022 XR SHOULDER RT INJ EXAMINATION: XR [...] by: ADRIANA MENDEZ Date: 2022-07-18 17:05 Normal [facility] MRI SHOULDER RT WO CONon [...] by: ADRIANA MENDEZ Date: 2022-07-10 10:10 Normal [facility] XR ARTHRO SHLD RTon 07-10-20 XR ARTHRO [...] by: ADRIANA MENDEZ Date: 2022-07-10 10:01 Normal [facility] No Panel Informationon 03-18 Radiology Study observation (narrative) [facility] Right Eye Reliability was good. Findings include normal observations. Left Eye Reliability was good. Findings include normal observations. Notes I personally reviewed the visual zaldivar performed by this patient on 03/18/22. The visual zaldivar are normal OU with good fixation. Francisco Ayers MD [facility] Progress Noteson 03-18-2022 Aircraft Sales Representative Authentication Interface Message Text Referred by Retina [...] Hair) regarding headaches-- will fax information to [phone] - Offered referral to neurology, patient prefers [...] her PCP. Francisco Ayers MD [facility]-2018 Cytology (NOTE) [id number] [facility] ANATOMIC PATHOLOGY [address] [place] [address]. [place], [place] [address] GYNECOLOGIC CYTOLOGY REPORT Patient Name: ROSALIE FREEMAN V. MR#: [id number] Specimen #[id number] Source: 1: Cervical material, (ThinPrep vial, Imaging-assisted review) Clinical History Z01.419 Routine plug overwrap machine tender exam without abnormal findings High Risk HPV DNA testing is requested if the diagnosis is ASC-US LMP: implant INTERPRETATION Cervical material, (ThinPrep vial, Imaging-assisted review): Specimen Adequacy: Satisfactory for evaluation. - Endocervical/transform ation zone component present. - Scant cellularity; predominantly blood. Descriptive Diagnosis: Negative for intraepithelial lesion or malignancy. Tire Recapping Machine Operator: KANCHAN Mendoza(ASCP) Electronically Signed Out donna/01/03/2019 [facility] Comment on above: Performed By: #### P PPVP #### [facility] [address] [place] [address] Block Sealer: Vega Wilkerson MD Social History Date Type Detail Facility Start: 01-19-2024 End: 03-08-2024 Tobacco smoking status Never smoked tobacco (finding) [facility] Start: 1995 [facility] status [facility] Tobacco smoking consumption unknown [facility] Other Sex Assigned At [facility] Tobacco smoking status Never [facility] Vital Signs Date Time Vital Sign Value Performing Clinician Facility 03-08-2024 14:09-0400 Blood Pressure Location Yonis FORDL [facility] 03-08-2024 14:09-0400 Diastolic blood pressure 84 mm[Hg] Yonis NILL [facility] 03-08-2024 14:09-0400 Heart rate 76 /min Yonis NILL [facility] 03-08-2024 14:09-0400 Respiratory rate 16 /min Yonis NILL [facility] 03-08-2024 14:09-0400 Systolic blood pressure 118 mm[Hg] Yonis FORDL [facility] 01-19-2024 09:34-0500 Blood Pressure Location ELÍAS HOPSON [facility] 01-19-2024 09:34-0500 Diastolic blood pressure 84 mm[Hg] ELÍAS EMILIANA [facility] 01-19-2024 09:34-0500 Heart rate 80 /min ELÍAS EMILIANA [facility] 01-19-2024 09:34-0500 Respiratory rate 16 /min ELÍAS HOPSON [facility] 01-19-2024 09:34-0500 Systolic blood pressure 132 mm[Hg] ELÍAS EMILIANA [facility] 12-02-2023 08:40-0500 Body height 180.34 cm Taniya Mary Grace Other [facility] Other 12-02-2023 08:40-0500 Body mass index (BMI) [Ratio] 45.1 kg/m2 Taniya Mary Grace Other [facility] Other 12-02-2023 08:40-0500 Body temperature 97.5 [degF] Taniya Mary Grace Other [facility] Other 12-02-2023 08:40-0500 Body weight 146.69 kg Taniya Mary Grace Other [facility] Other 12-02-2023 08:40-0500 Diastolic blood pressure 83 mm[Hg] Taniya Mary Grace Other [facility] Other 12-02-2023 08:40-0500 Respiratory rate 18 /min Taniya Mary Grace Other [facility] Other 12-02-2023 08:40-0500 SaO2% (BldA) [Mass fraction] 98 % Taniya Mary Grace Other [facility] Other 12-02-2023 08:40-0500 Systolic blood pressure 136 mm[Hg] Taniya Mary Grace Other [facility] Other 11-19-2021 15:30-0500 Body height 180.34 cm Nandini Pantoja Other [facility] Other 11-19-2021 15:30-0500 Body mass index (BMI) [Ratio] 41.56 kg/m2 Nandini Pantoja Other [facility] Other 11-19-2021 15:30-0500 Body weight 135.17 kg Nandini Pantoja Other [facility] Other 11-19-2021 15:30-0500 Diastolic blood pressure 76 mm[Hg] Nandini Pantoja Other [facility] Other 11-19-2021 15:30-0500 Systolic blood pressure 128 mm[Hg] Nandini Pantoja Other [facility] Other Functional Status Date Assessment Result Facility 03-08-2024 Functional Status N/A [facility] 01-19-2024 Functional Status N/A [facility] Clinical Notes 03-18-2022 to 03-10-2024 Note Date & Type Note Facility 03-10-2024 Note Chief Complaint consultation for diarrhea HPI Staff 28 year old female presents on consultation from Dr. Hargrove for diarrhea. Colonoscopy completed 06/2016 with sigmoid inflammation- biopsies negative. Reports daily loose to watery stools greater than one year. Reports occasional bright red blood with wiping. Reports occasional mucus stools. Denies nausea or vomiting. Denies weight loss. History of Present Illness 28 yo female with h/o IBS, mood d/o, anxiety, referred for loose stools; chronic UTIs, requiring antibiotic prophylaxis for the past year; patient reports frequent loose stools several times per day, some associated abd cramping, intermittent epigastric pain, frequent GERD; also episodes of constipation, occasional red blood with wiping; no emesis, no N/V or wt loss; no food triggers, no recent medication changes; last colonoscopy 2016 wnl; abd operations significant for cholecystectomy and left salpingo-oophorectomy; on Meloxicam daily, no asa; no fmhx of GI malignancy or IBD; no tobacco use. Review of Systems PHQ Score Initial Depression Screen Score: 0 SCORE ROS - Provider Constitutional: no fever, no [...] in stool, no change in bowel habits, no abdominal pain, no hepatitis. Genitourinary: no kidney [...] or noncontributory. Physical Exam Vitals & Measurements HR: 76(Peripheral) RR: 16 BP: 118/84 HT: 71 in HT: 180 cm WT: 152 kg WT: 334.4 lb BMI: 46.91 HEENT: normal conjunctiva, sclera clear, no scleral icterus, EOM intact, PERRLA, oral mucosa moist without lesions. Neck: trachea midline, no mass, symmetric, no thyromegaly or nodules, no adenopathy Respiratory: lungs CTA, respirations non labored. Cardiovascular: regular rate and rhythm, no murmur, no pedal edema or varicosities. Gastrointestinal: obese, soft, non distended, mild tenderness, epigastrium no masses, no palpable hernias, diastasis recti no, no hepatosplenomegaly; normal bs Lymphatic: no cervical adenopathy, no supraclavicular adenopathy. Musculoskeletal: normal gait, digits and nails without infection, nodes, cyanosis, clubbing. Skin: no rashes, no lesions, no ulcers, no subcutaneous nodules, induration. Psychiatric/Neuro: oriented to time, place, person, judgement normal, affect appropriate for age, insight intact, no focal deficits. Tests: , review of old records completed , Discussed surgical options, risks, and possible complications with patient. Assessment/Plan 1. Change in bowel habits (R19.4: Change in bowel habit) plan EGD and colonoscopy under anesthesia, informed consent obtained. 2. Frequent loose stools (R19.7: Diarrhea, unspecified) see # 1 3. Epigastric pain (R10.13: Epigastric pain) see # 1 4. Chronic GERD (K21.9: Gastro-esophageal reflux disease without esophagitis) see # 1 Follow-up No qualifying data available Problem List/Past Medical History Ongoing Abdominal pain, RUQ Abnormal ultrasound of gallbladder Acne vulgaris Anxiety BMI 45.0-49.9, adult Change in bowel habits Chronic cholecystitis with calculus Chronic GERD Epigastric pain Frequent loose stools GERD (gastroesophageal reflux disease) IBS (irritable bowel syndrome) Insomnia Laryngopharyngeal reflux Mood disorder Morbid obesity Recurrent UTI Renal lesion Scoliosis Historical No qualifying data Procedure/Surgical History Laparoscopic cholecystectomy (10/02/2021), Colonoscopy (07/09/2016), Correction of hammer toe, Hallux valgus correction by phalanx osteotomy, Left salpingo-oophorectomy, Plantar fasciotomy. Medications Bactrim 400 mg-80 mg Tab, 1 tab(s), Oral, Daily, PRN, 3 refills cloNIDine 0.1 mg tab, 0.1 mg= 1 tab(s), Oral, Daily Keflex 500 mg Cap, 500 mg= 1 cap(s), Oral, As Directed meloxicam 15 mg Tab, 15 mg= 1 tab(s), Oral, Daily Mirena 52 mg intrauteral device, 52 mg= 1 EA, IntraUteral, Once Zoloft 100 mg Tab, 100 mg= 1 tab(s), Oral, Daily Allergies No Known Allergies No Known Medication Allergies Social History Alcohol - Denies A (more content not included)... [facility] Comment on above: Result Comment: Elec tronically Signed By: RUTH CLARK, Yonis Cardenas\Date and Time Signed: 03/10/24 12:35 EDT 02-09-2024 Note [id number]#1.00TIFF [facility] 02-09-2024 Hospital Discharg e instructions [...] With:Dieter SALMON Address: [facility] [address] [place] [address]- Business (1) When:06/10/2024 08:33:15 Comments:With Deepthi Hopson [facility] 02-09-2024 Note Custom Cystoscopy ? Voiding after [...] you have a fever over 100 degrees. [facility] 01-19-2024 Note Chief Complaint Referral [...] E Coli Tx'd w/ Cefdinir 300mg BID g60ebkg ÁLVARO 01/01/24 *No acute abnormality CTa wo/w [...] yes avoids baths/hot tubs yes avoids scented [employer] SAF[employer]Y [employer]IST products yes urinates after sexual activity yes [...] and benefits for (more content not included)... [facility] Comment on above: Result Comment: Elec tronically Signed By: ELÍAS HOPSON PA-C\.br\Date and Time Signed: 01/19/24 10:56 EST\.br\Electronically Co-Signed By: Jania Lyn\.br\Date and Time Co-Signed: 01/19/24 10:36 EST 01-19-2024 [...] including vitamins, herbs, eye drops, creams, and acve-swm-nkdixsc medicines. Any problems you or family members [...] health care provider tells you to. ?Taking vysw-bwm-ttuxqph medicines, vitamins, herbs, and supplements. General instructions [...] provider. Document Revised: 02/19/2023 Document Reviewed: 02/19/2023 [employer] Patient Education 2022 [employer] ([employer]). 01/19/2024 10:32:14 Urinary Tract Infection, Adult Urinary [...] Treatment for this condition includes: Antibiotic medicine. Iqyv-wuy-onxnapj medicines to treat discomfort. Drinking enough water [...] Follow these instructions at home: Medicines Take tigu-iut-uxbbevv and prescription medicines only as told by [...] provider. Document Revised: 06/21/2021 Document Reviewed: 06/21/2021 [employer] Patient Education 2022 [employer] ([employer]). Follow Up Care 01/08/2024 10:24:51 With:ELÍAS HOPSON PA-C, URL Address: [address] [place] [id number] When: Unknown [facility] 12-17-2023 Evaluation note Encounter Date Diagnosis Assessment [...] her to avoid NSAIDs or any other cxky-akd-yijhkpu medication or high-protein supplements Nov, Renal lesion [...] and no personal patient information was compromised. [facility] Other 01-10-2024 Evaluation note* Encounter Date Diagnosis [...] her to avoid NSAIDs or any other ovac-zlq-onhrdsl medication or high-protein supplements Nov, Renal lesion (ICD-10 - N28.9) She had a renal lesion of indeterminate nature on the renal ultrasound. She is ordered to have a CAT scan with contrast by the PCP. Will follow the report once done. Nov, IBS (irritable bowel syndrome) (ICD-10 - K58.9) Continue to follow with PCP for IBS management. [facility] Other 06-21-2022 NotePROCEDURE: XR SHOULDER RT 2V or > COMPARISON: None. HISTORY: Pain of right shoulder joint FINDINGS: BONES:No fracture, acute abnormality, or significant arthropathy. SOFT TISSUES:Negative. No visible soft tissue swelling. EFFUSION:None visible. OTHER: Negative. IMPRESSION: Normal examination. Electronically authenticated by: NANDINI MAYER Date: 2022-05-13 08:41[facility]04-26-2022 History of Present illness Narrative* Francisco Ayers [...] Hair) regarding headaches-- will fax information to [phone] - Offered referral to neurology, patient prefers [...] papilledema. Francisco Ayers MD documented in this [id number] History of Present illness Narrative* Francisco Ayers [...] Hair) regarding headaches-- will fax information to [phone] - Offered referral to neurology, patient prefers [...] Appointments Appointment Date:02/02/2024 11:30:00 AM Scheduled Provider: Location:[facility] Appointment Type:Urology CALL PAT FT Appointment Date:02/09/2024 08:15:00 AM Scheduled Provider: Location:[facility] Appointment Type:Urology FT Appointment Date:2024 08:20:00 AM Scheduled Provider:ELÍAS HOPSON PA-C Location:[facility] Appointment Type:URO Office Visit [facility] evaluation + Plan note Future Appointments Appointment Date:02/02/2024 11:30:00 AM Scheduled Provider: Location:[facility] Appointment Type:Urology CALL PAT FT Appointment Date:02/09/2024 08:15:00 AM Scheduled Provider: Location:[facility] Appointment Type:Urology FT Appointment Date:2024 08:20:00 AM Scheduled Provider:ELÍAS HOPSON PA-C Location:[facility] Appointment Type:URO Office Visit Diagnostic Tests Pending * [facility] Future Appointments Appointment Date:2024 08:20:00 AM Scheduled Provider:ELÍAS HOPSON PA-C Location:[facility] Diagnosis Chronic nonintractable headache, unspecified headache type- [facility] Chronic nonintractable headache, unspecified headache type- Primary [facility] Other Evaluation noteNo InformationN[facility] Other History general Narrative - [facility]orted[facility] Other Hisjggt general Narrative - Reported* Type Description Date Medical History irritable bowel syndrome Medical History depression Medical History PROTEINURIA, UNSPECIFIED Medical History HYPOGLYCEMIA Medical History ARTHRALGIA Medical History SHINGLES Medical History ADHD Surgical History ovary removed 2014 Surgical History cholecystectomy Surgical History bilateral fasciitis repair Surgical History bilateral bone spur removal Hospitalization History 1 child [facility] Other Hospital course Narrative No data available for this section [facility] Hospital Discharge instructions No data available for this section [facility] No data available for this section [facility] Summary Purpose Family History No Family History [...] and content) DATE CREATED AUTHOR 08/31/2019 [facility] DATE CREATED AUTHOR AUTHOR'S ORGANIZ ATION 03/20/2022 [facility] DATE CREATED AUTHOR AUTHOR'S ORGANIZ ATION 04/18/2023 [facility] DATE CREATED AUTHOR AUTHOR'S ORGANIZ ATION 03/11/2024 [facility] Reason for Visit (unrecogniz ed section and content) Reason Comments Optic nerve edema Patient Care team informatio n (unrecognized section and content) Personnel Name: Melodie Hargrove MD Address: Address: [address] [place] [address] Personnel Name: Melodie Hargrove MD Address: Address: [address] [place] [address] Personnel Name: Melodie Hargrove MD Address: Address: [address] [place] [address] Personnel Name: Melodie Hargrove MD Address: Address: [address] [place] [address] FOR RECORDS PERTAINING TO PATIENTS WHO ARE [...] BE BASED ON THE PRIMARY CLINICAL RECORDS. [facility]. provides no warranty or guarantee of the accuracy or completeness of information in this document.
[2024-04-27 12:09] LABS: HCG Qualitative NEGATIVE (NEGATIVE)
[2024-04-27 12:20] VITALS: BP 141/72; PULSE 67; TEMP 36.2; O2SAT 97; BMI 47.2
[2024-04-27] MEDS: LACTATED RINGER'S SOLUTION 1,000 ML 50 ML IV ×4 (12:35→12:43)
[2024-04-27 16:01] VITALS: BP 113/72; PULSE 70; TEMP 36.4; O2SAT 99
[2024-04-27 16:15] VITALS: BP 113/73; PULSE 54; O2SAT 99
[2024-04-27 16:30] VITALS: BP 113/72; PULSE 50; O2SAT 99
== END 2024-04-27 16:39 | disposition home or self-care (01) ==
PROVIDERS: PCP Family Medicine; Visit Provider Surgery
PROC: (CPT 813; principal; 2024-04-27 13:00)
DX: R10.13 Epigastric pain (principal); K21.9 Gastro-esophageal reflux disease without esophagitis; K59.00 Constipation, unspecified; R19.7 Diarrhea, unspecified; F41.9 Anxiety disorder, unspecified; Z87.440 Personal history of urinary (tract) infections; E66.9 Obesity, unspecified; Z68.42 Body mass index [BMI] 45.0-49.9, adult; Z90.49 Acquired absence of other specified parts of digestive tract
CPT/HCPCS: 43235; 45380; 36415; 84703; 88305; J2704

== ENCOUNTER 2024-04-28 08:50 | Emergency (ER) | payer SELFPAY ==
[2024-04-28 08:55] VITALS: BP 151/90; PULSE 125; TEMP 38.7; O2SAT 96; BMI 45.9
--- NOTE | 2024-04-28 09:05 | XR_ITS ---
The [address] [address] Patient Name: ROSALIE FREEMAN MRN: [id number] date: 1995 Sex: F Assigned Patient Location: ER Current Patient Location: ER Accession/Order Number: [id number] Exam Date: 04/28/2024 09:30 Report Date: 04/28/2024 10:03 At the request of: SALMA MONET Procedure: XR chest 1V EXAMINATION: XR chest 1V HISTORY: pain after endoscopy COMPARISON: XR chest 04/17/2023 FINDINGS: LUNGS: No significant pulmonary parenchymal abnormalities. VASCULATURE: No increased pulmonary vasculature. PLEURA: No pneumothorax, effusion, or pleural thickening. CARDIAC: No cardiomegaly or cardiac silhouette abnormality. MEDIASTINUM: No visible mass or adenopathy. BONES: No fracture or visible bone lesion. OTHER: Negative. XR/XR chest 1V IMPRESSION: 1. No acute cardiopulmonary process. Electronically authenticated by: ADRIANA MENDEZ Date: 04/28/2024 10:03
--- OUTSIDE RECORDS SUMMARY | 2024-04-28 09:10 | XMS_ITS | CCD ---
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 Name Role Phone ANDRESSA ESCALANTE Referring Unavailable [...] Unavailable HOY ., DR SEWELL Admkaty Unavailable BROOKFIELD, DR NANDINI Stafford Consulting Unavailable HOY ., DR SEWELL Consulting Unavailable HOY ., DR SEWELL Primary Care Unavailable HOY ., DR SEWELL Attending Unavailable HOY ., DR SEWELL Admkaty Unavailable HOY ., DR SEWELL Consulting Unavailable HOY ., DR SEWELL Primary Care Unavailable POLI ., DR SEWELL Attending Unavailable HOY ., DR SEWELL Admitting Unavailable LEYLA, DR NANDINI Stafford Consulting Unavailable HOGerman ., DR SEWELL Primary Care Unavailable POLI ., DR SEWELL Attending Unavailable HOY ., DR SEWELL Admitting Unavailable JETHRO GRIFFITH Consulting Unavailable NACHO, JETHRO Attending Unavailable NACHO, JETHRO Admitting Unavailable POLI ., DR SEWELL Primary Care Unavailable PARIS, ELLIS Consulting Unavailable PARIS, ELLIS Attending Unavailable PARIS, ELLIS Admitting Unavailable POLI ., DR SEWELL Primary Care Unavailable Mary Grace Taniya Unavailable Melodie Hargrove Primary Care Physician ELÍAS HOPSON Admitting Unavailable EMILIANA, ELÍAS Barreto Attending Unavailable Yonis MIRANDA Attending Unavailable Melodie Hargrove Referring Unavailable EMILIANA, ELÍAS Barreto Attending Unavailable ELÍAS HOPSON Attending Unavailable Melodie Hargrove Referring Unavailable Dieter SALMON Admitting Unavailable Dieter SALMON Attending Unavailable Dieter [place] Referring Unavailable Allergies Allergy Classification Reported Allergen(s) Allergy Type Date of Onset Reaction(s) Facility (1 source) [facility] [place] [facility]Other; Translations: [[facility] [place]Other] Propensity to adverse reactions (disorder) 0 [facility] Repository (3 sources) [facility] Drug allergy [facility] Other (1 source) No Known Medication Allergies; Translations: [No Known Medication Allergies] Propensity to adverse reactions (disorder) [facility] Repository Medications Current Medications Medication Drug [...] Daily UTI prevention, 30 tab(s), Refill(s) 3, [facility]/pharmacy #[id number], 180, cm, 01/19/24 9:37:00 EST, Height/Length [...] completed., # 2 cap(s), Refills(s) 0, Pharmacy: [facility]/pharmacy #[id number], 180, cm, 01/19/24 9:37:00 EST, Height/Length Dosing, 145.5, kg, 01/19/24 9:37:00 EST, Weight Dosing Start Date: 01/19/24 Status: Ordered levonorgestrel 0.389297 mg/hr intrauterine system (4 sources) Progestin, Progestin-containin [...] 09-20-2021 Chronic Other aftercare (1 source) Other long-term (current) drug therapy; Translations: [[facility] CURRENT DRUG THERAPY] Onset: 3 Episodic Other [...] for Procedure/Surger yon 03-09-2024 Consent for Procedure/Surgery [id number]#1.0 0TIFF [facility] Ambulatory Visit Summaryon 0 03-08-2024 Ambulatory Visit Summary ROSALIE FREEMAN V :1995 Visit Date:03/08/2024 Ambulatory Visit Instructions Your Care Team Attending Physician - Yonis MIRANDA MD Primary Care Physician - Melodie Hargrove MD [...] Follow-Up Appointments Thursday 8:20 AM EDT With: EMILIANA STEPHENS, ELÍAS Barreto Where: [facility] Normal [facility] Physician Referralon 024 Physician Referral [id number]#1.0 0TIFF Normal [facility] Physician Referralon 024 Physician Referral [id number]#1.0 0TIFF Normal [facility] Consent for Procedure/Surger yon 02-09-2024 Consent for Procedure/Surgery [id number]#1. 00TIFF [facility] Consent for Treatmenton 01-21 Consent for Treatment [id number]#1.0 0[facility]FF [facility] IntraOperative Documentson 0 02-09-2024 IntraOperative Documents [id number]#1. 00TIFF [facility] Main OR Intraoperative Recor don 02-09-2024 Main OR Intraoperative Record IntraOp Document Type FTURO Summary Primary Physician: Dieter [place] MD Finalized Date/Time: 02/09/24 08:32:09 Pt. Name: ROSALIE FREEMAN/Sex: 1995 Female Med Rec #: [id number] Physician: Dieter [place] MD Financial #: [id number] Pt. Type: O Room/Bed: / Admit/Disch: 02/09/24 07:32:51 - Institution: Case Times FTURO Entry 1 Patient Times In Room 02/09/24 08:10:00 Out Room 02/09/24 08:38:00 Procedure Times Start 02/09/24 08:24:00 Stop 02/09/24 08:33:00 Anesthesia Times Last Modified By: Сергей VALENZUELA, Sangita CHIN 02/09/24 08:31:26 Case Attendance FTURO Entry 1 Entry 2 Entry 3 Case Attendee SANDRITA CLARK, Dieter Rushing RN, RAYMOND[place], Maryam GRIGSBY, Bianca Quesada Role Performed Surgeon - Primary Crew Person - Primary Scrub - Primary Time In 02/09/24 08:10:00 02/09/24 08:10:00 02/09/24 08:10:00 Time Out 02/09/24 08:38:00 02/09/24 08:38:00 02/09/24 08:38:00 Procedure CYSTOSCOPY LOCAL(.) CYSTOSCOPY LOCAL(.) CYSTOSCOPY LOCAL(.) Comments Last Modified By: Сергей VALENZUELA, CNOR, Сергей VALENZUELA, RAYMONDOR, Сергей VALENZUELA, RAY[place], Sangita 02/09/24 Sangita 02/09/24 Sangita 02/09/24 [...] Out Dieter [place] MD, Verified (If Participants Сергей VALENZUELA, RAYMONDOR, Applicable) SangitaMaryam jacob CST, Kimberly A Time Out Complete 02/09/24 [...] GIUSEPPE Rushing RN, Ruthann 02/09/24 08:32 Normal [facility] Main OR Preoperative Recordo n 02-09-2024 Main OR Preoperative Record Holding Area Document Type FTURO Summary Primary Physician: Dieter [place] MD Finalized Date/Time: 02/09/24 08:08:52 Pt. Name: ROSALIE FREEMAN/Sex: 1995 Female Med Rec #: [id number] Physician: Dieter [place] MD Financial #: [id number] Pt. Type: O Room/Bed: / Admit/Disch: 02/09/24 [...] GIUSEPPE Rushing RN, Ruthann 02/09/24 08:08 Normal [facility] Operative Reporton Operative Report Patient: ASHLEE FREEMAN [...] cause of her recurrent urinary tract infections.. [facility] Comment on above: Result Comment: Elec tronically Signed By: SANDRITA CLARK, Dieter Cardenas\Date and Time Signed: 02/09/24 08:36 EDT Outpatient Surgery Discharge Instructionon 02-09-2024 Outpatient Surgery Discharge Instruction [id number]#1. 00TIFF [facility] RAD - MISCon 01-29-2024 RAD - MISC [id number]#1.0 0TIFF [facility] C Urineon 01-21-2024 Bacteria identified Cx [...] Locations R1: This test was performed at: [facility], [address] [place] [address], [address] , , [facility] Comment on above: Performed By: #### 2 [id number] ####[facility] [address] [place] [address] Lab Reportson 01-21-2024 Lab Reports [id number]#1. 00TIFF [facility] Lab Reports [id number]#1. 00TIFF [facility] Lab Reports [id number]#1. 00TIFF [facility] Lab Reports [id number]#1. 00TIFF [facility] Lab Reports [id number]. 00TIFF [facility] Lab Reports [id number]#1. 00TIFF [facility] RAD - CT Reporton 01-21-2024 RAD - CT Report [id number]#1. 00TIFF [facility] RAD - Ultrasound Reporton RAD - Ultrasound Report [id number]. 00TIFF [facility] RAD - Ultrasound Report [id number]#1. 00TIFF [facility] Screenson 01-21-2024 Screens [id number]#1.0 0TIFF [facility] Ambulatory Visit Summaryon 0 01-19-2024 Ambulatory Visit Summary ROSALIE FREEMAN V :1995 Visit Date:01/19/2024 Ambulatory Visit Instructions Your Diagnosis Recurrent UTI Renal lesion Tests Performed Voiding Urethrocystogram XR -- Results Pending -- Please visit your patient portal for your results or contact your primary care physician. Your Care Team Attending Physician - EMILIANA STEPHENS, ELÍAS Barreto Primary Care Physician - Melodie Hargrove MD [...] ELÍAS HOPSON PA-C, URL When: Where: [address] [facility] [place] [address] Medications What How Much When Instructions New sulfamethoxazole-trime thoprim (Bactrim 400 mg-80 mg Tab) 1 Tablets By Mouth Every day as needed for UTI prevention Refills: 3 Pickup at [facility]/pharmacy #[id number] Unchanged guanfacine (guanfacine 3 mg oral [...] physician if questions or concerns Pharmacy Information [facility]/pharmacy #[id number]: [address], [place] [id number] [phone] Allergies No Known Allergies No Known Medication [...] Trouble urinati (more content not included)... Normal [facility] Patient Educationon 01-19-20 24 Patient Education Obstetrics and Gynecology Urinary Tract [...] this condition includes: ? Antibiotic medicine. ? Agap-hvl-xjcptcy medicines to treat discomfort. ? Drinking enough [...] these instructions at home: Medicines ? Take qonq-ehb-rpjzrfj and prescription medicines only as told by [...] Document Revie (more content not included)... Normal [facility] BNPon 04-17-2023 Natriuretic peptide B (Bld) [Mass/Vol] 246.0 pg/mL Normal <=450.0 [facility] Comment on above: Performed By: #### I NSULIN #### [facility] [address] [place] [address] Dr. Saray Souza CARDIAC NELI ADMITon 023 CK [Catalytic activity/Vol] 47 U/L Normal 26-192 [facility] Comment on above: Performed By: #### I NSULIN #### [facility] [address] [place] [address] Dr. Saray Souza CK.MB [Mass/Vol] 1.02 ng/mL Normal <=3.60 [facility] Comment on above: Performed By: #### I NSULIN #### [facility] [address] [place] [address] Dr. Saray Souza HSTROP 4.5 pg/mL Normal 4.0-51.3 [facility] Comment on above: Result Comment: CUT- OFF POINTS HAVE BEEN ESTABLISHED BASED ON THE FOURTH UNIVERSAL DEFINITIONS OF MYOCARDIAL INFARCTION. THE UPPER REFERENCE LIMIT (URL) OF TROPONIN, DEFINED THE 99TH PERCENTILE OF cTnI DISTRIBUTION IN A REFERENCE POPULATION, HAS BEEN CONFIRMED THE DECISION THRESHOLD FOR [place] DIAGNOSIS. Performed By: #### I NSULIN #### [facility] [address] [place] [address] Dr. Saray Souza FRANKLIN 36 ng/mL Normal 9- [facility] Comment on above: Performed By: #### I CURLYULIN #### [facility] [address] [place] [address] Dr. Saray Souza CBC W MANUAL DIFFon 04-17-20 23 ATYPICAL LYMPH # Normal [facility] Comment on above: Performed By: #### C BCMAN #### [facility] [address] [place] [address] Dr. Saray Souza ATYPICAL LYMPH % Normal [facility] Comment on above: Performed By: #### C BCPRESLEY #### [facility] [address] [place] [address] Dr. Saray Souza BAND # 0.3 103/ul Normal 0.0-0.3 [facility] Comment on above: Performed By: #### C EDGARDO #### [facility] [address] [place] [address] Dr. Saray Souza BAND % 1 % Normal 0-5 [facility] Comment on above: Performed By: #### C EDGARDO #### [facility] [address] [place] [address] Dr. Saary Souza BASOM # 0.00 103/ul Normal 0.00-0.10 [facility] Comment on above: Performed By: #### C EDGARDO #### [facility] [address] [place] [address] Dr. Saray Souza BASOM % 0.0 % Critically low 0.2-2.0 [facility] Comment on above: Performed By: #### C BCPRESLEY #### [facility] [address] [place] [address] Dr. Saray Souza BLAST # Normal [facility] Comment on above: Performed By: #### C EDGARDO #### [facility] [address] [place] [address] Dr. Saray Souza BLAST % Normal [facility] Comment on above: Performed By: #### C EDGARDO #### [facility] [address] [place] [address] Dr. Saray Souza CORRECTED WBC Normal 4.0-11.0 [facility] Comment on above: Performed By: #### C EDGARDO #### [facility] [address] [place] [address] Dr. Saray Souza EOS # 0.00 103/ul Normal 0.00-0.70 [facility] Comment on above: Performed By: #### C EDGARDO #### [facility] [address] [place] [address] Dr. Saray Souza EOS% 0.0 % Critically low 0.9-7.0 The [facility] Comment on above: Performed By: #### C EDGARDO #### [facility] [address] [place] [address] Dr. Saray Souza HCT 43.6 % Normal 36.0-48.0 [facility] Comment on above: Performed By: #### C EDGARDO #### [facility] [address] [place] [address] Dr. Saray Souza HGB 14.7 g/dl Normal 12.0-16.0 [facility] Comment on above: Performed By: #### C EDGARDO #### [facility] [address] [place] [address] Dr. Saray Souza LYMPHM # 1.55 103/ul Normal 1.20-3.80 [facility] Comment on above: Performed By: #### C EDGARDO #### [facility] [address] [place] [address] Dr. Saray Souza LYMPHM% 6.0 % Critically low 20.5-60.0 [facility] Comment on above: Performed By: #### C EDGARDO #### [facility] [address] [place] [address] Dr. Saray Souza MCH 30.3 pg Normal 26.7-34.0 [facility] Comment on above: Performed By: #### C EDGARDO #### [facility] [address] [place] [address] Dr. Saray Souza MCHC 33.7 g/dl Normal 29.9-35.2 [facility] Comment on above: Performed By: #### C EDGARDO #### [facility] [address] [place] [address] Dr. Saray Souza MCV 89.9 fL Normal 81.0-99.0 [facility] Comment on above: Performed By: #### C EDGARDO #### [facility] [address] [place] [address] Dr. Saray Souza METAMYELOCYTE # Normal [facility] Comment on above: Performed By: #### C EDGARDO #### [facility] [address] [place] [address] Dr. Saray Souza METAMYELOCYTE % Normal [facility] Comment on above: Performed By: #### C EDGARDO #### [facility] [address] [place] [address] Dr. Saray Souza MONOM# 2.06 103/ul Critically high 0.30-0.80 [facility] Comment on above: Performed By: #### C EDGARDO #### [facility] [address] [address] [address] Saray Souza MONOM% 8.0 % Normal 1.7-12.0 [facility] Comment on above: Performed By: #### C EDGARDO #### [facility] [address] [place] [address] Dr. Saray Souza MPV 8.8 fL Critically low 9.5-13.5 [facility] Comment on above: Performed By: #### C EDGARDO #### [facility] [address] [place] [address] Dr. Saray Souza MYELOCYTE # Normal [facility] Comment on above: Performed By: #### C EDGARDO #### [facility] [address] [place] [address] Dr. Saray Souza MYELOCYTE % Normal [facility] Comment on above: Performed By: #### C EDGARDO #### [facility] [address] [place] [address] Dr. Saray Souza NRBC Normal [facility] Comment on above: Performed By: #### C EDGARDO #### [facility] [address] [place] [address] Dr. Saray Souza PLT 397 103/ul Normal 150-450 [facility] Comment on above: Performed By: #### C EDGARDO #### [facility] [address] [place] [address] Dr. Saray Souza RBC 4.85 106/ul Normal 4.20-5.40 [facility] Comment on above: Performed By: #### C EDGARDO #### [facility] [address] [place] [address] Dr. Saray Souza RDW 12.0 % Normal 11.0-15.0 [facility] Comment on above: Performed By: #### C EDGARDO #### [facility] [address] [place] [address] Dr. Saray Souza SEG # 21.93 103/ul Critically high 1.40-6.50 [facility] Comment on above: Performed By: #### C EDGARDO #### [facility] [address] [place] [address] Dr. Saray Souza SEG % 85.0 % Critically high 43.0-75.0 [facility] Comment on above: Performed By: #### C BCMAN #### [facility] [address] [place] [address] Dr. Saray Souza WBC 25.8 103/ul Critically high 4.0-11.0 [facility] Comment on above: Performed By: #### C BCMAN #### [facility] [address] [place] [address] Dr. Saray Souza CULTURE URINEon 04-17-2023 CULTURE URINE Culture Observations : LORENZO TO FOLLOW. Isolate 1 Enterococcus faecalis 20,000 cfu/mL of Normal [facility] Comment on above: Performed By: #### C BC #### [facility] [address] [place] [address] Dr. Saray Souza ER URINE PROFILEon 3 Bilirubin Ql (U) Negative Normal NEGATIVE [facility] Comment on above: Performed By: #### C BC #### [facility] [address] [place] [address] Dr. Saray Souza Clarity (U) CLEAR Normal CLEAR [facility] Comment on above: Performed By: #### C BC #### [facility] [address] [place] [address] Dr. Saray Souza Color (U) LT. YELLOW Normal YELLOW [facility] Comment on above: Performed By: #### C BC #### [facility] [address] [place] [address] Dr. Saray PARKERHumera A micrscopic examination will be performed if indicated. Normal [facility] Comment on above: Performed By: #### C BC #### [facility] [address] [place] [address] Dr. Saray Souza Glucose Ql (U) Negative Normal NEGATIVE [facility] Comment on above: Performed By: #### C BC #### [facility] [address] [place] [address] Dr. Saray Souza Hemoglobin Ql (U) Negative Normal NEGATIVE [facility] Comment on above: Performed By: #### C BC #### [facility] [address] [place] [address] Dr. Saray Souza Ketones Ql (U) Negative Normal NEGATIVE [facility] Comment on above: Performed By: #### C BC #### [facility] [address] [place] [address] Dr. Saray Souza LEUKOCYTES SMALL Abnormal NEGATIVE [facility] Comment on above: Performed By: #### C BC #### [facility] [address] [place] [address] Dr. Saray Souza Nitrite Ql (U) Negative Normal NEGATIVE [facility] Comment on above: Performed By: #### C BC #### [facility] [address] [place] [address] Dr. Saray Souza pH (U) 6.5 [pH] Normal 5-9 [facility] Comment on above: Performed By: #### C BC #### [facility] [address] [place] [address] Dr. Saray Souza SPEC GRAVITY 1.025 Normal 1.005-<=1.025 [facility] Comment on above: Performed By: #### C BC #### [facility] [address] [place] [address] Dr. Saray Souza UA PROTEIN Negative Normal NEGATIVE/ TRACE [facility] Comment on above: Performed By: #### C BC #### [facility] [address] [place] [address] Dr. Saray Souza UR MICRO IND INDICATED Normal [facility] Comment on above: Performed By: #### C BC #### [facility] [address] [place] [address] Dr. Saray Souza Urobilinogen Qn (U) 0.2 {Janine'U}/dL Normal 0.2 - 1. 0 [facility] Comment on above: Performed By: #### C BC #### [facility] [address] [place] [address] Dr. Saray Souza URon 04-17-2023 , QUAL Negative Normal NEGATIVE [facility] Comment on above: Performed By: #### C BC #### [facility] [address] [address] [address] Saray Souza PROF 14(COMP METB)on 023 Albumin [Mass/Vol] 3.0 g/dL Critically low 3.4-5.0 [facility] Comment on above: Performed By: #### I NSULIN #### [facility] [address] [address] [address] Saray Souza Albumin/Globulin [Mass ratio] 0.9 {ratio} Normal [facility] Comment on above: Performed By: #### I NSULIN #### [facility] [address] [place] [address] Dr. Saray Souza ALP [Catalytic activity/Vol] 54 U/L Normal 46-116 [facility] Comment on above: Performed By: #### I NSULIN #### [facility] [address] [place] [address] Dr. Saray Souza ALT [Catalytic activity/Vol] 27 U/L Normal 14-59 [facility] Comment on above: Performed By: #### I NSULIN #### [facility] [address] [place] [address] Dr. Saray Souza Anion gap [Moles/Vol] 12.9 mmol/L Normal [facility] Comment on above: Performed By: #### I NSULIN #### [facility] [address] [place] [address] Dr. Saray Souza AST [Catalytic activity/Vol] 12 U/L Critically low 15-37 [facility] Comment on above: Performed By: #### I NSULIN #### [facility] [address] [place] [address] Dr. Saray Souza Bilirubin [Mass/Vol] 0.3 mg/dL Normal 0.2-1.0 [facility] Comment on above: Performed By: #### I NSULIN #### [facility] [address] [place] [address] Dr. Saray Souza Calcium [Mass/Vol] 8.1 mg/dL Critically low 8.5-10.1 [facility] Comment on above: Performed By: #### I NSULIN #### [facility] [address] [address] [address] Saray Souza Chloride [Moles/Vol] 102 mmol/L Normal 98-107 [facility] Comment on above: Performed By: #### I NSULIN #### [facility] [address] [address] [address] Saray Souza CO2 [Moles/Vol] 26.2 mmol/L Normal 21.0-32.0 [facility] Comment on above: Performed By: #### I NSULIN #### [facility] [address] [address] [address] Saray Souza Creatinine [Mass/Vol] 0.87 mg/dL Normal 0.55-1.02 [facility] Comment on above: Performed By: #### I NSULIN #### [facility] [address] [place] [address] Dr. Saray Souza EGFR-AF CANADIAN >60 Normal >=60 [facility] Comment on above: Performed By: #### I NSULIN #### [facility] [address] [address] [address] Saray Souza EGFR-NON AF CANADIAN >60 Normal >=60 [facility] Comment on above: Performed By: #### I NSULIN #### [facility] [address] [place] [address] Dr. Saray Souza Globulin (S) [Mass/Vol] 3.2 g/dL Normal [facility] Comment on above: Performed By: #### I NSULIN #### [facility] [address] [address] [address] Saray Souza Glucose [Mass/Vol] 206 mg/dL Critically high 74-106 T [facility] Comment on above: Performed By: #### I NSULIN #### [facility] [address] [address] [address] Saray Souza Potassium [Moles/Vol] 4.1 mmol/L Normal 3.5-5.1 [facility] Comment on above: Performed By: #### I NSULIN #### [facility] [address] [place] [address] Dr. Saray Souza Protein [Mass/Vol] 6.2 g/dL Critically low 6.4-8.2 Th [facility] Comment on above: Performed By: #### I NSULIN #### [facility] [address] [place] [address] Dr. Saray Souza Sodium [Moles/Vol] 137 mmol/L Normal 136-145 [facility] Comment on above: Performed By: #### I NSULIN #### [facility] [address] [place] [address] Dr. Saray Souza Urea nitrogen [Mass/Vol] 19.0 mg/dL Critically high 7.0-18.0 [facility] Comment on above: Performed By: #### I NSULIN #### [facility] [address] [place] [address] Dr. Saray Souza Urea nitrogen/Creatinine [Mass ratio] 21.8 mg/mg Normal [facility] Comment on above: Performed By: #### I NSULIN #### [facility] [address] [place] [address] Dr. Saray Souza TSHon 04-17-2023 TSH 0.553 uIU/mL Normal 0.358-3.740 [facility] Comment on above: Performed By: #### I NSULIN #### [facility] [address] [place] [address] Dr. Saray Souza URINE MICROSCOPIC ONLYon BACTERIA TRACE Abnormal NONE SEEN [facility] Comment on above: Performed By: #### C BC #### [facility] [address] [place] [address] Dr. Saray Souza Bacteria identified Cx Nom (U) INDICATED Normal [facility] Comment on above: Performed By: #### C BC #### [facility] [address] [place] [address] Dr. Saray Souza CAST NONE SEEN Normal NONE SEEN [facility] Comment on above: Performed By: #### C BC #### [facility] [address] [place] [address] Dr. Saray Souza Crystals LM Nom (Urine sed) NONE SEEN Normal NONE SEEN [facility] Comment on above: Performed By: #### C BC #### [facility] [address] [address] [address] Saray Souza Epithelial cells LM Ql (Urine sed) RARE Normal NONE SEEN /RARE The [facility] Comment on above: Performed By: #### C BC #### [facility] [address] [address] [address] Saray Souza MUCOUS NONE SEEN Normal NONE SEEN The [facility] Comment on above: Performed By: #### C BC #### [facility] [address] [address] [address] Saray Souza RBC 0-2 Normal 0-2 [facility] Comment on above: Performed By: #### C BC #### [facility] [address] [place] [address] Dr. Saray Souza WBC 5-10 Abnormal NONE SEEN The [facility] Comment on above: Performed By: #### C BC #### [facility] [address] [place] [address] Dr. Saray Souza XR CHEST 2 Von [...] CAROL RAMIREZ Date: 2023-04-17 10:45 Normal [facility] INSULINon 04-07-2023 Insulin 11.3 uIU/mL Normal 2.6-24.9 [facility] Comment on above: Performed By: #### I NSULIN #### [facility] [address] [place] [address] Dr. Saray Souza US KIDNEYS BLADDERon 023 [...] NANDINI MAYER Date: 2023-04-04 08:22 Normal The [facility] INSULINon 04-02-2023 Insulin 37.5 uIU/mL Critically high 2.6-24.9 The [facility] Comment on above: Performed By: #### I NSULIN #### [facility] [address] [place] [address] Dr. Saray Souza CBC AUTO DIFFon 04-01-2023 BASO # 0.0 103/ul Normal 0.0-0.1 [facility] Comment on above: Performed By: #### C BC #### [facility] [address] [place] [address] Dr. Saray Souza Basophils/100 WBC (Bld) 0.5 % Normal 0.2-2.0 [facility] Comment on above: Performed By: #### C BC #### [facility] [address] [place] [address] Dr. Saray Souza EO # 0.2 103/ul Normal 0.0-0.7 [facility] Comment on above: Performed By: #### C BC #### [facility] [address] [place] [address] Dr. Saray Souza Eosinophils/100 WBC (Bld) 2.3 % Normal 0.9-7.0 [facility] Comment on above: Performed By: #### C BC #### [facility] [address] [place] [address] Dr. Saray Souza Erythrocyte distribution width (RBC) [Ratio] 11.9 % Normal 11.0-15.0 [facility] Comment on above: Performed By: #### C BC #### [facility] [address] [place] [address] Dr. Saray Souza Hematocrit (Bld) [Volume fraction] 42.2 % Normal 36.0-48.0 [facility] Comment on above: Performed By: #### C BC #### [facility] [address] [place] [address] Dr. Saray Souza Hemoglobin (Bld) [Mass/Vol] 13.7 g/dL Normal 12.0-16.0 [facility] Comment on above: Performed By: #### C BC #### [facility] [address] [place] [address] Dr. Saray Souza IG # 0.02 10e3/ul Normal 0.00-0.03 [facility] Comment on above: Performed By: #### C BC #### [facility] [address] [place] [address] Dr. Saray Souza IG % 0.3 % Normal 0.0-0.5 [facility] Comment on above: Performed By: #### C BC #### [facility] [address] [place] [address] Dr. Saray Souza LYMPH # 1.6 103/ul Normal 1.2-3.8 [facility] Comment on above: Performed By: #### C BC #### [facility] [address] [place] [address] Dr. Saray Souza Lymphocytes/100 WBC (Bld) 21.5 % Normal 20.5-60.0 [facility] Comment on above: Performed By: #### C BC #### [facility] [address] [place] [address] Dr. Saray Souza MANUAL DIFF REQ NO Normal The [facility] Comment on above: Performed By: #### C BC #### [facility] [address] [place] [address] Dr. Saray Souza MCH (RBC) [Entitic mass] 30.0 pg Normal 26.7-34.0 [facility] Comment on above: Performed By: #### C BC #### [facility] [address] [place] [address] Dr. Saray Souza MCHC (RBC) [Mass/Vol] 32.5 g/dL Normal 29.9-35.2 [facility] Comment on above: Performed By: #### C BC #### [facility] [address] [place] [address] Dr. Saray Souza MCV (RBC) [Entitic vol] 92.5 fL Normal 81.0-99.0 [facility] Comment on above: Performed By: #### C BC #### [facility] [address] [place] [address] Dr. Saray Souza MONO # 0.7 103/ul Normal 0.3-0.8 [facility] Comment on above: Performed By: #### C BC #### [facility] [address] [place] [address] Dr. Saray Souza Monocytes/100 WBC (Bld) 9.6 % Normal 1.7-12.0 [facility] Comment on above: Performed By: #### C BC #### [facility] [address] [place] [address] Dr. Saray Souza NEUT # 5.0 103/ul Normal 1.4-6.5 [facility] Comment on above: Performed By: #### C BC #### [facility] [address] [place] [address] Dr. Saray Souza Neutrophils/100 WBC (Bld) 65.8 % Normal 43.0-75.0 [facility] Comment on above: Performed By: #### C BC #### [facility] [address] [place] [address] Dr. Saray Souza Platelet mean volume (Bld) [Entitic vol] 8.9 fL Critically low 9.5-13.5 [facility] Comment on above: Performed By: #### C BC #### [facility] [address] [place] [address] Dr. Saray Souza PLT 293 103/ul Normal 150-450 [facility] Comment on above: Performed By: #### C BC #### [facility] [address] [place] [address] Dr. Saray Souza RBC 4.56 106/ul Normal 4.20-5.40 [facility] Comment on above: Performed By: #### C BC #### [facility] [address] [place] [address] Dr. Saray Souza WBC 7.5 103/ul Normal 4.0-11.0 [facility] Comment on above: Performed By: #### C BC #### [facility] [address] [place] [address] Dr. Saray Souza CULTURE URINEon 04-01-2023 CULTURE URINE Culture Observations : MODERATE GROWTH OF MIXED GENITAL CARMELO. NO POTENTIAL PATHOGENS SEEN. Normal [facility] Comment on above: Performed By: #### C BC #### [facility] [address] [place] [address] Dr. Saray Souza FREE THYROXINE INDEX T7on FTI 2.51 Normal 1.30-4.50 [facility] Comment on above: Performed By: #### I NSULIN #### [facility] [address] [place] [address] Dr. Saray Souza T3U 33.0 % Normal 30.0-39.0 [facility] Comment on above: Performed By: #### I NSULIN #### [facility] [address] [place] [address] Dr. Saray Souza T4 [Mass/Vol] 7.60 ug/dL Normal 4.80-13.90 [facility] Comment on above: Performed By: #### I NSULIN #### [facility] [address] [place] [address] Dr. Saray Souza IRONon 04-01-2023 Iron [Mass/Vol] 151.0 ug/dL Normal 50.0-170.0 [facility] Comment on above: Performed By: #### C BCMAN #### [facility] [address] [place] [address] Dr. Saray Souza PROF 14(COMP METB)on 023 Albumin [Mass/Vol] 3.7 g/dL Normal 3.4-5.0 [facility] Comment on above: Performed By: #### C EDGARDO #### [facility] [address] [place] [address] Dr. Saray Souza Albumin/Globulin [Mass ratio] 1.1 {ratio} Normal [facility] Comment on above: Performed By: #### C EDGARDO #### [facility] [address] [place] [address] Dr. Saray Souza ALP [Catalytic activity/Vol] 81 U/L Normal 46-116 [facility] Comment on above: Performed By: #### C EDGARDO #### [facility] [address] [place] [address] Dr. Saray Souza ALT [Catalytic activity/Vol] 33 U/L Normal 14-59 [facility] Comment on above: Performed By: #### C EDGARDO #### [facility] [address] [place] [address] Dr. Saray Souza Anion gap [Moles/Vol] 10.2 mmol/L Normal [facility] Comment on above: Performed By: #### C EDGARDO #### [facility] [address] [place] [address] Dr. Saray Souza AST [Catalytic activity/Vol] 22 U/L Normal 15-37 [facility] Comment on above: Performed By: #### C EDGARDO #### [facility] [address] [place] [address] Dr. Saray Souza Bilirubin [Mass/Vol] 0.3 mg/dL Normal 0.2-1.0 [facility] Comment on above: Performed By: #### C EDGARDO #### [facility] [address] [place] [address] Dr. Saray Souza Calcium [Mass/Vol] 8.6 mg/dL Normal 8.5-10.1 [facility] Comment on above: Performed By: #### C DEGARDO #### [facility] [address] [place] [address] Dr. Saray Souza Chloride [Moles/Vol] 105 mmol/L Normal 98-107 [facility] Comment on above: Performed By: #### C BCMAN #### [facility] [address] [address] [address] Saray Souza CO2 [Moles/Vol] 30.4 mmol/L Normal 21.0-32.0 [facility] Comment on above: Performed By: #### C BCMAN #### [facility] [address] [address] [address] Saray Souza Creatinine [Mass/Vol] 0.72 mg/dL Normal 0.55-1.02 [facility] Comment on above: Performed By: #### C BCPRESLEY #### [facility] [address] [place] [address] Dr. Saray Souza EGFR-AF CANADIAN >60 Normal >=60 [facility] Comment on above: Performed By: #### C BCPRESLEY #### [facility] [address] [address] [address] Saray Souza EGFR-NON AF CANADIAN >60 Normal >=60 [facility] Comment on above: Performed By: #### C BCPRESLEY #### [facility] [address] [address] [address] Saray Souza Globulin (S) [Mass/Vol] 3.5 g/dL Normal [facility] Comment on above: Performed By: #### C BCMAN #### [facility] [address] [address] [address] Saray Souza Glucose [Mass/Vol] 89 mg/dL Normal 74-106 The [facility] Comment on above: Performed By: #### C BCMAN #### [facility] [address] [address] [address] Saray Souza Potassium [Moles/Vol] 3.6 mmol/L Normal 3.5-5.1 [facility] Comment on above: Performed By: #### C BCMAN #### [facility] [address] [place] [address] Dr. Saray Souza Protein [Mass/Vol] 7.2 g/dL Normal 6.4-8.2 [facility] Comment on above: Performed By: #### C EDGARDO #### [facility] [address] [place] [address] Dr. Saray Souza Sodium [Moles/Vol] 142 mmol/L Normal 136-145 [facility] Comment on above: Performed By: #### C BCPRESLEY #### [facility] [address] [place] [address] Dr. Saray Souza Urea nitrogen [Mass/Vol] 12.0 mg/dL Normal 7.0-18.0 [facility] Comment on above: Performed By: #### C EDGARDO #### [facility] [address] [place] [address] Dr. Saray Souza Urea nitrogen/Creatinine [Mass ratio] 16.7 mg/mg Normal [facility] Comment on above: Performed By: #### C EDGARDO #### [facility] [address] [place] [address] Dr. Saray Souza TSHon 04-01-2023 TSH 1.708 uIU/mL Normal 0.358-3.740 [facility] Comment on above: Performed By: #### I NSULIN #### [facility] [address] [place] [address] Dr. Saray Souza UA RANDOM W/MICROSCOPICon BACTERIA SMALL Abnormal NONE SEEN [facility] Comment on above: Performed By: #### I NSULIN #### [facility] [address] [place] [address] Dr. Saray Souza Bilirubin Ql (U) Negative Normal NEGATIVE [facility] Comment on above: Performed By: #### I NSULIN #### [facility] [address] [place] [address] Dr. Saray Souza CAST NONE SEEN Normal NONE SEEN [facility] Comment on above: Performed By: #### I NSULIN #### [facility] [address] [place] [address] Dr. Saray Souza Clarity (U) CLEAR Normal CLEAR [facility] Comment on above: Performed By: #### I NSULIN #### [facility] [address] [place] [address] Dr. Saray Souza Color (U) YELLOW Normal YELLOW [facility] Comment on above: Performed By: #### I NSULIN #### [facility] [address] [place] [address] Dr. Saray Souza Crystals LM Nom (Urine sed) NONE SEEN Normal NONE SEEN [facility] Comment on above: Performed By: #### I NSULIN #### [facility] [address] [place] [address] Dr. Saray Souza Epithelial cells LM Ql (Urine sed) FEW Abnormal NONE SEEN /RARE [facility] Comment on above: Performed By: #### I NSULIN #### [facility] [address] [place] [address] Dr. Saray Souza Glucose Ql (U) Negative Normal NEGATIVE The [facility] Comment on above: Performed By: #### I NSULIN #### [facility] [address] [place] [address] Dr. Saray Souza Hemoglobin Ql (U) Negative Normal NEGATIVE [facility] Comment on above: Performed By: #### I NSULIN #### [facility] [address] [place] [address] Dr. Saray Souza Ketones Ql (U) TRACE Abnormal NEGATIVE [facility] Comment on above: Performed By: #### I NSULIN #### [facility] [address] [place] [address] Dr. Saray Souza LEUKOCYTES SMALL Abnormal NEGATIVE [facility] Comment on above: Performed By: #### I NSULIN #### [facility] [address] [place] [address] Dr. Saray Souza MUCOUS NONE SEEN Normal NONE SEEN [facility] Comment on above: Performed By: #### I NSULIN #### [facility] [address] [place] [address] Dr. Saray Souza Nitrite Ql (U) Negative Normal NEGATIVE [facility] Comment on above: Performed By: #### I NSULIN #### [facility] [address] [place] [address] Dr. Saray Souza pH (U) 5.5 [pH] Normal 5-9 [facility] Comment on above: Performed By: #### I NSULIN #### [facility] [address] [address] [address] Saray Souza RBC 0-2 Normal 0-2 [facility] Comment on above: Performed By: #### I NSULIN #### [facility] [address] [place] [address] Dr. Saray Souza SPEC GRAVITY >=1.030 Abnormal 1.005-<=1.025 [facility] Comment on above: Performed By: #### I NSULIN #### [facility] [address] [place] [address] Dr. Saray Souza UA PROTEIN Negative Normal NEGATIVE/ TRACE [facility] Comment on above: Performed By: #### I NSULIN #### [facility] [address] [place] [address] Dr. Saray Souza Urobilinogen Qn (U) 0.2 {Janine'U}/dL Normal 0.2 - 1. 0 [facility] Comment on above: Performed By: #### I NSULIN #### [facility] [address] [place] [address] Dr. Saray Souza WBC 5-10 Abnormal NONE SEEN The [facility] Comment on above: Performed By: #### I NSULIN #### [facility] [address] [place] [address] Dr. Saray Souza INSULINon 02-14-2023 Insulin 12.8 uIU/mL Normal 2.6-24.9 [facility] Comment on above: Performed By: #### C BC #### [facility] [address] [place] [address] Dr. Saray Souza CBC AUTO DIFFon 02-13-2023 BASO # 0.0 103/ul Normal 0.0-0.1 [facility] Comment on above: Performed By: #### C BC #### [facility] [address] [place] [address] Dr. Saray Souza Basophils/100 WBC (Bld) 0.4 % Normal 0.2-2.0 [facility] Comment on above: Performed By: #### C BC #### [facility] [address] [place] [address] Dr. Saray Souza EO # 0.1 103/ul Normal 0.0-0.7 [facility] Comment on above: Performed By: #### C BC #### [facility] [address] [place] [address] Dr. Saray Souza Eosinophils/100 WBC (Bld) 1.6 % Normal 0.9-7.0 [facility] Comment on above: Performed By: #### C BC #### [facility] [address] [place] [address] Dr. Saray Souza Erythrocyte distribution width (RBC) [Ratio] 11.9 % Normal 11.0-15.0 [facility] Comment on above: Performed By: #### C BC #### [facility] [address] [place] [address] Dr. Saray Souza Hematocrit (Bld) [Volume fraction] 41.9 % Normal 36.0-48.0 [facility] Comment on above: Performed By: #### C BC #### [facility] [address] [place] [address] Dr. Saray Souza Hemoglobin (Bld) [Mass/Vol] 13.7 g/dL Normal 12.0-16.0 [facility] Comment on above: Performed By: #### C BC #### [facility] [address] [place] [address] Dr. Saray Souza IG # 0.02 10e3/ul Normal 0.00-0.03 [facility] Comment on above: Performed By: #### C BC #### [facility] [address] [place] [address] Dr. Saray Souza IG % 0.3 % Normal 0.0-0.5 [facility] Comment on above: Performed By: #### C BC #### [facility] [address] [place] [address] Dr. Saray Souza LYMPH # 1.4 103/ul Normal 1.2-3.8 [facility] Comment on above: Performed By: #### C BC #### [facility] [address] [address] [address] Saray Souza Lymphocytes/100 WBC (Bld) 18.6 % Critically low 20.5-60.0 [facility] Comment on above: Performed By: #### C BC #### [facility] [address] [place] [address] Dr. Saray Souza MANUAL DIFF REQ NO Normal [facility] Comment on above: Performed By: #### C BC #### [facility] [address] [place] [address] Dr. Saray Souza MCH (RBC) [Entitic mass] 29.9 pg Normal 26.7-34.0 [facility] Comment on above: Performed By: #### C BC #### [facility] [address] [place] [address] Dr. Saray Souza MCHC (RBC) [Mass/Vol] 32.7 g/dL Normal 29.9-35.2 [facility] Comment on above: Performed By: #### C BC #### [facility] [address] [place] [address] Dr. Saray Souza MCV (RBC) [Entitic vol] 91.5 fL Normal 81.0-99.0 [facility] Comment on above: Performed By: #### C BC #### [facility] [address] [place] [address] Dr. Saray Souza MONO # 0.6 103/ul Normal 0.3-0.8 [facility] Comment on above: Performed By: #### C BC #### [facility] [address] [place] [address] Dr. Saray Souza Monocytes/100 WBC (Bld) 8.3 % Normal 1.7-12.0 [facility] Comment on above: Performed By: #### C BC #### [facility] [address] [place] [address] Dr. Saray Souza NEUT # 5.5 103/ul Normal 1.4-6.5 [facility] Comment on above: Performed By: #### C BC #### [facility] [address] [address] [address] Saray Souza Neutrophils/100 WBC (Bld) 70.8 % Normal 43.0-75.0 [facility] Comment on above: Performed By: #### C BC #### [facility] [address] [address] [address] Saray Souza Platelet mean volume (Bld) [Entitic vol] 9.0 fL Critically low 9.5-13.5 [facility] Comment on above: Performed By: #### C BC #### [facility] [address] [address] [address] Saray Souza PLT 271 103/ul Normal 150-450 [facility] Comment on above: Performed By: #### C BC #### [facility] [address] [place] [address] Dr. Saray Souza RBC 4.58 106/ul Normal 4.20-5.40 [facility] Comment on above: Performed By: #### C BC #### [facility] [address] [place] [address] Dr. Saray Souza WBC 7.7 103/ul Normal 4.0-11.0 [facility] Comment on above: Performed By: #### C BC #### [facility] [address] [place] [address] Dr. Saray Souza FREE THYROXINE INDEX T7on FTI 2.56 Normal 1.30-4.50 [facility] Comment on above: Performed By: #### I NSULIN #### [facility] [address] [place] [address] Dr. Saray Souza T3U 36.0 % Normal 30.0-39.0 [facility] Comment on above: Performed By: #### I NSULIN #### [facility] [address] [place] [address] Dr. Saray Souza T4 [Mass/Vol] 7.10 ug/dL Normal 4.80-13.90 The [facility] Comment on above: Performed By: #### I NSULIN #### [facility] [address] [place] [address] Dr. Saray Souza IRONon 02-13-2023 Iron [Mass/Vol] 130.0 ug/dL Normal 50.0-170.0 [facility] Comment on above: Performed By: #### C EDGARDO #### [facility] [address] [address] [address] Saray Souza PROF 14(COMP METB)on 023 Albumin [Mass/Vol] 3.8 g/dL Normal 3.4-5.0 [facility] Comment on above: Performed By: #### I NSULIN #### [facility] [address] [address] [address] Saray Souza Albumin/Globulin [Mass ratio] 1.2 {ratio} Normal [facility] Comment on above: Performed By: #### I NSULIN #### [facility] [address] [place] [address] Dr. Saray Souza ALP [Catalytic activity/Vol] 82 U/L Normal 46-116 [facility] Comment on above: Performed By: #### I NSULIN #### [facility] [address] [address] [address] Saray Souza ALT [Catalytic activity/Vol] 25 U/L Normal 14-59 [facility] Comment on above: Performed By: #### I NSULIN #### [facility] [address] [address] [address] Saray Souza Anion gap [Moles/Vol] 12.7 mmol/L Normal [facility] Comment on above: Performed By: #### I NSULIN #### [facility] [address] [address] [address] Saray Souza AST [Catalytic activity/Vol] 19 U/L Normal 15-37 [facility] Comment on above: Performed By: #### I NSULIN #### [facility] [address] [address] [address] Saray Souza Bilirubin [Mass/Vol] 0.3 mg/dL Normal 0.2-1.0 [facility] Comment on above: Performed By: #### I NSULIN #### [facility] [address] [address] [address] Saray Souza Calcium [Mass/Vol] 8.8 mg/dL Normal 8.5-10.1 The [facility] Comment on above: Performed By: #### I NSULIN #### [facility] [address] [address] [address] Saray Souza Chloride [Moles/Vol] 101 mmol/L Normal 98-107 [facility] Comment on above: Performed By: #### I NSULIN #### [facility] [address] [address] [address] Saray Souza CO2 [Moles/Vol] 27.3 mmol/L Normal 21.0-32.0 [facility] Comment on above: Performed By: #### I NSULIN #### [facility] [address] [place] [address] Dr. Saray Souza Creatinine [Mass/Vol] 0.69 mg/dL Normal 0.55-1.02 [facility] Comment on above: Performed By: #### I NSULIN #### [facility] [address] [address] [address] Saray Souza EGFR-AF CANADIAN >60 Normal >=60 [facility] Comment on above: Performed By: #### I NSULIN #### [facility] [address] [place] [address] Dr. Saray Souza EGFR-NON AF CANADIAN >60 Normal >=60 [facility] Comment on above: Performed By: #### I NSULIN #### [facility] [address] [address] [address] Saray Souza Globulin (S) [Mass/Vol] 3.3 g/dL Normal [facility] Comment on above: Performed By: #### I NSULIN #### [facility] [address] [place] [address] Dr. Saray Souza Glucose [Mass/Vol] 83 mg/dL Normal 74-106 The [facility] Comment on above: Performed By: #### I NSULIN #### [facility] [address] [place] [address] Dr. Saray Souza Potassium [Moles/Vol] 4.0 mmol/L Normal 3.5-5.1 [facility] Comment on above: Performed By: #### I NSULIN #### [facility] [address] [place] [address] Dr. Saray Souza Protein [Mass/Vol] 7.1 g/dL Normal 6.4-8.2 [facility] Comment on above: Performed By: #### I NSULIN #### [facility] [address] [address] [address] Saray Souza Sodium [Moles/Vol] 137 mmol/L Normal 136-145 [facility] Comment on above: Performed By: #### I CURLYULIN #### [facility] [address] [place] [address] Dr. Saray Souza Urea nitrogen [Mass/Vol] 10.0 mg/dL Normal 7.0-18.0 [facility] Comment on above: Performed By: #### I NSULIN #### [facility] [address] [place] [address] Dr. Saray Souza Urea nitrogen/Creatinine [Mass ratio] 14.5 mg/mg Normal [facility] Comment on above: Performed By: #### I NSULIN #### [facility] [address] [place] [address] Dr. Saray Souza TSHon 02-13-2023 TSH 2.745 uIU/mL Normal 0.358-3.740 [facility] Comment on above: Performed By: #### I NSULIN #### [facility] [address] [place] [address] Dr. Saray Souza AMYLASEon 02-04-2023 Amylase [Catalytic activity/Vol] 45 U/L Normal 25-115 [facility] Comment on above: Performed By: #### T SH, CMP, HSTROPN, LIPA, LINDA #### [facility] [address] [place] [address] Dr. Saray Souza CBC AUTO DIFFon 02-04-2023 BASO # 0.0 103/ul Normal 0.0-0.1 [facility] Comment on above: Performed By: #### C BC #### [facility] [address] [place] [address] Dr. Saray Souza Basophils/100 WBC (Bld) 0.4 % Normal 0.2-2.0 [facility] Comment on above: Performed By: #### C BC #### [facility] [address] [place] [address] Dr. Saray Souza EO # 0.1 103/ul Normal 0.0-0.7 [facility] Comment on above: Performed By: #### C BC #### [facility] [address] [place] [address] Dr. Saray Souza Eosinophils/100 WBC (Bld) 1.7 % Normal 0.9-7.0 [facility] Comment on above: Performed By: #### C BC #### [facility] [address] [place] [address] Dr. Saray Souza Erythrocyte distribution width (RBC) [Ratio] 12.0 % Normal 11.0-15.0 [facility] Comment on above: Performed By: #### C BC #### [facility] [address] [place] [address] Dr. Saray Souza Hematocrit (Bld) [Volume fraction] 42.3 % Normal 36.0-48.0 [facility] Comment on above: Performed By: #### C BC #### [facility] [address] [place] [address] Dr. Saray Souza Hemoglobin (Bld) [Mass/Vol] 13.9 g/dL Normal 12.0-16.0 [facility] Comment on above: Performed By: #### C BC #### [facility] [address] [place] [address] Dr. Saray Souza IG # 0.03 10e3/ul Normal 0.00-0.03 [facility] Comment on above: Performed By: #### C BC #### [facility] [address] [place] [address] Dr. Saray Souza IG % 0.4 % Normal 0.0-0.5 [facility] Comment on above: Performed By: #### C BC #### [facility] [address] [address] [address] Saray Souza LYMPH # 1.5 103/ul Normal 1.2-3.8 [facility] Comment on above: Performed By: #### C BC #### [facility] [address] [address] [address] Saray Souza Lymphocytes/100 WBC (Bld) 20.4 % Critically low 20.5-60.0 [facility] Comment on above: Performed By: #### C BC #### [facility] [address] [place] [address] Dr. Saray Souza MANUAL DIFF REQ NO Normal [facility] Comment on above: Performed By: #### C BC #### [facility] [address] [place] [address] Dr. Saray Souza MCH (RBC) [Entitic mass] 30.0 pg Normal 26.7-34.0 [facility] Comment on above: Performed By: #### C BC #### [facility] [address] [place] [address] Dr. Saray Souza MCHC (RBC) [Mass/Vol] 32.9 g/dL Normal 29.9-35.2 [facility] Comment on above: Performed By: #### C BC #### [facility] [address] [place] [address] Dr. Saray Souza MCV (RBC) [Entitic vol] 91.2 fL Normal 81.0-99.0 [facility] Comment on above: Performed By: #### C BC #### [facility] [address] [place] [address] Dr. Saray Souza MONO # 0.6 103/ul Normal 0.3-0.8 [facility] Comment on above: Performed By: #### C BC #### [facility] [address] [place] [address] Dr. Saray Souza Monocytes/100 WBC (Bld) 7.7 % Normal 1.7-12.0 [facility] Comment on above: Performed By: #### C BC #### [facility] [address] [place] [address] Dr. Saray Souza NEUT # 5.2 103/ul Normal 1.4-6.5 [facility] Comment on above: Performed By: #### C BC #### [facility] [address] [place] [address] Dr. Saray Souza Neutrophils/100 WBC (Bld) 69.4 % Normal 43.0-75.0 [facility] Comment on above: Performed By: #### C BC #### [facility] [address] [place] [address] Dr. Saray Souza Platelet mean volume (Bld) [Entitic vol] 9.0 fL Critically low 9.5-13.5 [facility] Comment on above: Performed By: #### C BC #### [facility] [address] [place] [address] Dr. Saray Souza PLT 292 103/ul Normal 150-450 [facility] Comment on above: Performed By: #### C BC #### [facility] [address] [place] [address] Dr. Saray Souza RBC 4.64 106/ul Normal 4.20-5.40 [facility] Comment on above: Performed By: #### C BC #### [facility] [address] [place] [address] Dr. Saray Souza WBC 7.5 103/ul Normal 4.0-11.0 [facility] Comment on above: Performed By: #### C BC #### [facility] [address] [place] [address] Dr. Saray Souza CULTURE URINEon 02-04-2023 CULTURE URINE Culture Observations : LIGHT GROWTH OF MIXED GENITAL CARMELO. NO POTENTIAL PATHOGENS SEEN. Normal [facility] Comment on above: Performed By: #### C BC #### [facility] [address] [place] [address] Dr. Saray Souza ER URINE PROFILEon 3 Bilirubin Ql (U) Negative Normal NEGATIVE [facility] Comment on above: Performed By: #### C BC #### [facility] [address] [place] [address] Dr. Saray Souza Clarity (U) CLEAR Normal CLEAR [facility] Comment on above: Performed By: #### C BC #### [facility] [address] [address] [address] Saray Souza Color (U) LT. YELLOW Normal YELLOW [facility] Comment on above: Performed By: #### C BC #### [facility] [address] [place] [address] Dr. Saray JHA A micrscopic examination will be performed if indicated. Normal [facility] Comment on above: Performed By: #### C BC #### [facility] [address] [place] [address] Dr. Saray Souza Glucose Ql (U) Negative Normal NEGATIVE [facility] Comment on above: Performed By: #### C BC #### [facility] [address] [place] [address] Dr. Saray Souza Hemoglobin Ql (U) Negative Normal NEGATIVE [facility] Comment on above: Performed By: #### C BC #### [facility] [address] [place] [address] Dr. Saray Souza Ketones Ql (U) Negative Normal NEGATIVE [facility] Comment on above: Performed By: #### C BC #### [facility] [address] [place] [address] Dr. Saray Souza LEUKOCYTES MODERATE Abnormal NEGATIVE [facility] Comment on above: Performed By: #### C BC #### [facility] [address] [place] [address] Dr. Saray Souza Nitrite Ql (U) Negative Normal NEGATIVE The [facility] Comment on above: Performed By: #### C BC #### [facility] [address] [place] [address] Dr. Saray Souza pH (U) 5.5 [pH] Normal 5-9 [facility] Comment on above: Performed By: #### C BC #### [facility] [address] [place] [address] Dr. Saray Souza SPEC GRAVITY >=1.030 Abnormal 1.005-<=1.025 [facility] Comment on above: Performed By: #### C BC #### [facility] [address] [place] [address] Dr. Saray Souza UA PROTEIN Negative Normal NEGATIVE/ TRACE [facility] Comment on above: Performed By: #### C BC #### [facility] [address] [place] [address] Dr. Saray Souza UR MICRO IND INDICATED Normal [facility] Comment on above: Performed By: #### C BC #### [facility] [address] [place] [address] Dr. Saray Souza Urobilinogen Qn (U) 0.2 {Janine'U}/dL Normal 0.2 - 1. 0 [facility] Comment on above: Performed By: #### C BC #### [facility] [address] [place] [address] Dr. Saray Souza LIPASEon 02-04-2023 Lipase [Catalytic activity/Vol] 97.0 U/L Normal 73.0-393.0 [facility] Comment on above: Performed By: #### T SH, CMP, HSTROPN, LIPA, LINDA #### [facility] [address] [place] [address] Dr. Saray Souza URon 02-04-2023 , QUAL Negative Normal NEGATIVE [facility] Comment on above: Performed By: #### C BC #### [facility] [address] [place] [address] Dr. Saray Souza PROF 14(COMP METB)on 023 Albumin [Mass/Vol] 3.5 g/dL Normal 3.4-5.0 [facility] Comment on above: Performed By: #### T SH, CMP, HSTROPN, LIPA, LINDA #### [facility] [address] [place] [address] Dr. Saray Souza Albumin/Globulin [Mass ratio] 1.2 {ratio} Normal [facility] Comment on above: Performed By: #### T SH, CMP, HSTROPN, LIPA, LINDA #### [facility] [address] [place] [address] Dr. Saray Souza ALP [Catalytic activity/Vol] 78 U/L Normal 46-116 [facility] Comment on above: Performed By: #### T SH, CMP, HSTROPN, LIPA, LINDA #### [facility] [address] [place] [address] Dr. Saray Souza ALT [Catalytic activity/Vol] 24 U/L Normal 14-59 [facility] Comment on above: Performed By: #### T SH, CMP, HSTROPN, LIPA, LINDA #### [facility] [address] [place] [address] Dr. Saray Souza Anion gap [Moles/Vol] 7.9 mmol/L Normal [facility] Comment on above: Performed By: #### T SH, CMP, HSTROPN, LIPA, LINDA #### [facility] [address] [place] [address] Dr. Saray Souza AST [Catalytic activity/Vol] 16 U/L Normal 15-37 [facility] Comment on above: Performed By: #### T SH, CMP, HSTROPN, LIPA, LINDA #### [facility] [address] [place] [address] Dr. Saray Souza Bilirubin [Mass/Vol] 0.3 mg/dL Normal 0.2-1.0 [facility] Comment on above: Performed By: #### T SH, CMP, HSTROPN, LIPA, LINDA #### [facility] [address] [place] [address] Dr. Saray Souza Calcium [Mass/Vol] 8.6 mg/dL Normal 8.5-10.1 [facility] Comment on above: Performed By: #### T SH, CMP, HSTROPN, LIPA, LINDA #### [facility] [address] [place] [address] Dr. Saray Souza Chloride [Moles/Vol] 105 mmol/L Normal 98-107 [facility] Comment on above: Performed By: #### T SH, CMP, HSTROPN, LIPA, LINDA #### [facility] [address] [address] [address] Saray Souza CO2 [Moles/Vol] 28.9 mmol/L Normal 21.0-32.0 [facility] Comment on above: Performed By: #### T SH, CMP, HSTROPN, LIPA, LINDA #### [facility] [address] [place] [address] Dr. Saray Souza Creatinine [Mass/Vol] 0.67 mg/dL Normal 0.55-1.02 [facility] Comment on above: Performed By: #### T SH, CMP, HSTROPN, LIPA, LINDA #### [facility] [address] [place] [address] Dr. Saray Souza EGFR-AF CANADIAN >60 Normal >=60 [facility] Comment on above: Performed By: #### T SH, CMP, HSTROPN, LIPA, LINDA #### [facility] [address] [place] [address] Dr. Saray Souza EGFR-NON AF CANADIAN >60 Normal >=60 [facility] Comment on above: Performed By: #### T SH, CMP, HSTROPN, LIPA, LINDA #### [facility] [address] [place] [address] Dr. Saray Souza Globulin (S) [Mass/Vol] 3.0 g/dL Normal [facility] Comment on above: Performed By: #### T SH, CMP, HSTROPN, LIPA, LINDA #### [facility] [address] [place] [address] Dr. Saray Souza Glucose [Mass/Vol] 97 mg/dL Normal 74-106 [facility] Comment on above: Performed By: #### T SH, CMP, HSTROPN, LIPA, LINDA #### [facility] [address] [place] [address] Dr. Saray Souza Potassium [Moles/Vol] 3.8 mmol/L Normal 3.5-5.1 [facility] Comment on above: Performed By: #### T SH, CMP, HSTROPN, LIPA, LINDA #### [facility] [address] [address] [address] Saray Souza Protein [Mass/Vol] 6.5 g/dL Normal 6.4-8.2 The [facility] Comment on above: Performed By: #### T SH, CMP, HSTROPN, LIPA, LINDA #### [facility] [address] [place] [address] Dr. Saray Souza Sodium [Moles/Vol] 138 mmol/L Normal 136-145 [facility] Comment on above: Performed By: #### T SH, CMP, HSTROPN, LIPA, LINDA #### [facility] [address] [place] [address] Dr. Saray Souza Urea nitrogen [Mass/Vol] 13.0 mg/dL Normal 7.0-18.0 [facility] Comment on above: Performed By: #### T SH, CMP, HSTROPN, LIPA, LINDA #### [facility] [address] [place] [address] Dr. Saray Souza Urea nitrogen/Creatinine [Mass ratio] 19.4 mg/mg Normal [facility] Comment on above: Performed By: #### T SH, CMP, HSTROPN, LIPA, LINDA #### [facility] [address] [place] [address] Dr. Saray Souza TROPONIN, HIGH SENSITIVITYon 02-04-2023 HSTROP 4.0 pg/mL Normal 4.0-51.3 [facility] Comment on above: Result Comment: CUT- OFF POINTS HAVE BEEN ESTABLISHED BASED ON THE FOURTH UNIVERSAL DEFINITIONS OF MYOCARDIAL INFARCTION. THE UPPER REFERENCE LIMIT (URL) OF TROPONIN, DEFINED THE 99TH PERCENTILE OF cTnI DISTRIBUTION IN A REFERENCE POPULATION, HAS BEEN CONFIRMED THE DECISION THRESHOLD FOR [place] DIAGNOSIS. Performed By: #### T SH, CMP, HSTROPN, LIPA, LINDA #### [facility] [address] [place] [address] Dr. Saray Souza TSHon 02-04-2023 TSH 2.478 uIU/mL Normal 0.358-3.740 [facility] Comment on above: Performed By: #### T SH, CMP, HSTROPN, LIPA, LINDA #### [facility] [address] [place] [address] Dr. Saray Souza URINE MICROSCOPIC ONLYon BACTERIA MODERATE Abnormal NONE SEEN The [facility] Comment on above: Performed By: #### C BC #### [facility] [address] [place] [address] Dr. Saray Souza Bacteria identified Cx Nom (U) INDICATED Normal [facility] [facility] Comment on above: Performed By: #### C BC #### [facility] [address] [place] [address] Dr. Saray Souza CAST NONE SEEN Normal NONE SEEN The [facility] Comment on above: Performed By: #### C BC #### [facility] [address] [place] [address] Dr. Saray Souza Crystals LM Nom (Urine sed) NONE SEEN Normal NONE SEEN The [facility] Comment on above: Performed By: #### C BC #### [facility] [address] [place] [address] Dr. Saray Souza Epithelial cells LM Ql (Urine sed) MODERATE Abnormal NONE SEEN /RARE The [facility] Comment on above: Performed By: #### C BC #### [facility] [address] [place] [address] Dr. Saray Souza MUCOUS NONE SEEN Normal NONE SEEN The [facility] Comment on above: Performed By: #### C BC #### [facility] [address] [place] [address] Dr. Saray Souza RBC 5-10 Abnormal 0-2 The [facility] Comment on above: Performed By: #### C BC #### [facility] [address] [place] [address] Dr. Saray Souza WBC 10-20 Abnormal NONE SEEN The [facility] Comment on above: Performed By: #### C BC #### [facility] [address] [place] [address] Dr. Saray Souza Covid-19 PCR (CVDTB)on 09-24 SARS-CoV-2 (COVID-19) RNA DAYDAY+probe Ql (Unsp spec) Not detected Normal NOT DETECTED The [facility] Comment on above: Result Comment: When [...] for this test is supported by the [place] of Health and Human Service's declaration that [...] used). Performed By: #### C BC #### [facility] [address] [place] [address] Dr. Saray Souza INFLUENZA A AND B [facility] 10-20 [facility] SEE BELOW Normal [facility] Comment on above: Result Comment: Nega tive for Flu A protein angiten. Infection due to Flu A cannot be ruled out. Flu A angiten in the sample may be below the detection limit of the test. Performed By: #### C BC #### [facility] [address] [place] [address] Dr. Saray Sou[facility] SEE BELOW Normal [facility] Comment on above: Result Comment: Nega tive for Flu B protein antigen. Infection due to Flu B cannot be ruled out. Flu B antigen in the sample may be below the detection limit of the test. Performed By: #### C BC #### [facility] [address] [place] [address] Dr. Saray Souza INFLUENZA A AG Negative Normal NEGATIVE SEE COMMENT [facility] Comment on above: Performed By: #### C BC #### [facility] [address] [place] [address] Dr. Saray Souza INFLUENZA B AG Negative Normal NEGATIVE SEE COMMENT [facility] Comment on above: Performed By: #### C BC #### [facility] [address] [address] [address] Saray Souza INTERNAL CONTROLS Within Normal Limits Normal Wi thin Normal Limits The [facility] Comment on above: Performed By: #### C BC #### [facility] [address] [address] [address] Saray Souza STREPT SCREENon 10-20-2022 STREP SCREEN A Positive Abnormal NEGATIVE The [facility] Comment on above: Performed By: #### C BC #### [facility] [id number] Saray Souza XR SHOULDER RT INJon [...] ADRIANA MENDEZ Date: 2022-07-18 17:05 Normal The [facility] MRI SHOULDER RT WO CONon MRI [...] MENDEZ Date: 2022-07-10 10:10 Normal [facility] XR ARTHRO SHLD RTon 07-10-20 22 XR ARTHRO LD RT EXAMINATION: XR ARTH [...] MENDEZ Date: 2022-07-10 10:01 Normal [facility] No Panel Informationon 03-18 Right Eye Reliability was good. Findings include normal observations. Left Eye Reliability was good. Findings include normal observations. Notes I personally reviewed the visual zaldivar performed by this patient on 03/18/22. The visual zaldivar are normal OU with good fixation. 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 Francisco Ayers MD Normal The [facility] Cytologyon 12-20-2018 Cytology (NOTE) [id number] [facility] ANATOMIC PATHOLOGY [address] [place] [id number] GYNECOLOGIC CYTOLOGY REPORT Patient Name: ROSALIE FREEMAN V. 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 - Endocervical/transform ation zone component present. - Scant cellularity; predominantly blood. Descriptive Diagnosis: Negative for intraepithelial lesion or malignancy. Clinical Research Monitor: KANCHAN Mendoza(ASCP) Electronically Signed Out donna/01/03/2019 [facility] Comment on above: Performed By: #### P PPVP #### [facility] [address] [place] [id number] [facility]: Vega Wilkerson MD Vital Signs Date Time Vital Sign Value Performing Clinician Facility 03-08-2024 14:09-0400 Blood Pressure Location Yonis MIRANDA [facility] 03-08-2024 14:09-0400 Diastolic blood pressure 84 mm[Hg] Yonis FORDL [facility] [place] 03-08-2024 14:09-0400 Heart rate 76 /min Yonis FORDL [facility] [place] 03-08-2024 14:09-0400 Respiratory rate 16 /min Yonis MIRANDA [facility] [place] 03-08-2024 14:09-0400 Systolic blood pressure 118 mm[Hg] Yonis FORDL [facility] [place] 01-19-2024 09:34-0500 Blood Pressure Location ELÍAS HOPSON [facility] 01-19-2024 09:34-0500 Diastolic blood pressure 84 mm[Hg] ELÍAS EMILIANA [facility] 01-19-2024 09:34-0500 Heart rate 80 /min ELÍAS EMILIANA [facility] 01-19-2024 09:34-0500 Respiratory rate 16 /min ELÍAS HOPSON [facility] 01-19-2024 09:34-0500 Systolic blood pressure 132 mm[Hg] ELÍAS EMILIANA [facility] 12-02-2023 08:40-0500 Body height 180.34 cm Taniya Mary Grace Other [facility] Other 12-02-2023 08:40-0500 Body mass index (BMI) [Ratio] 45.1 kg/m2 Taniya Mary Grace Other [facility] Other 12-02-2023 08:40-0500 Body temperature 97.5 [degF] Taniya Mary Grace Other [facility] Other 12-02-2023 08:40-0500 Body weight 146.69 kg Taniya Mary Grace Other [facility] Other 12-02-2023 08:40-0500 Diastolic blood pressure 83 mm[Hg] Taniya Mary Grace Other [facility] Other 12-02-2023 08:40-0500 Respiratory rate 18 /min Taniya Mary Grace Other [facility] Other 12-02-2023 08:40-0500 SaO2% (BldA) [Mass fraction] 98 % Taniya Mary Garce Other [facility] Other 12-02-2023 08:40-0500 Systolic blood pressure 136 mm[Hg] Taniya Mary Grace Other [facility] Other 11-19-2021 15:30-0500 Body height 180.34 cm Nandini Pantoja Other [facility] Other 11-19-2021 15:30-0500 Body mass index (BMI) [Ratio] 41.56 kg/m2 Nandini Pantoja Other [facility] Other 11-19-2021 15:30-0500 Body weight 135.17 kg Nandini Pantoja Other [facility] Other 11-19-2021 15:30-0500 Diastolic blood pressure 76 mm[Hg] Nandini Pantoja Other [facility] Other 11-19-2021 15:30-0500 Systolic blood pressure 128 mm[Hg] Nandini Pantoja Other [facility] Other Encounters Encounter Date Encounter Type Care Provider Facility Start: 03-08-2024 End: 03-09-2024 ambulatory Yonis MIRANDA Facility:[facility] Start: 03-08-2024 End: 03-08-2024 Patient encounter procedure Yonis MIRANDA [facility] Start: 02-09-2024 End: 02-10-2024 ambulatory Dieter SALMON [place] [place]: 02-09-2024 End: 02-09-2024 Patient encounter procedure Dieter SALMON [facility] Start: 01-19-2024 End: 01-20-2024 ambulatory ELÍAS HOSPON [place] [place]: 01-19-2024 End: 01-20-2024 ambulatory ELÍAS E EMILIANA Facility:[facility] Start: 01-19-2024 End: 01-19-2024 Lab Drop off ELÍAS HOPSON [facility] Start: 01-19-2024 End: 01-19-2024 Patient encounter procedure ELÍAS HOPSON [facility] Start: 12-31-2023 ambulatory ELÍAS HOPSON Facility : [facility] Start: 12-17-2023 End: 12-17-2023 ambulatory Taniya Mary Grace Other [facility] Other Start: 12-17-2023 Office outpatient visit 15 minutes Taniya Mary Grace [facility] Start: 12-07-2023 End: 12-07-2023 ambulatory Taniya Mary Grace Other [facility] Other Start: 12-07-2023 Telephone encounter Taniya Mary Grace [facility] Start: 12-02-2023 End: 12-02-2023 ambulatory Taniya Mary Grace Other [facility] Other Start: 12-02-2023 Office outpatient ne w 30 minutes Taniya Mary Grace [facility] Start: 04-17-2023 End: 04-17-2023 ambulatory SALMA DIAB . Facility: Start: 04-06-2023 End: 04-07-[address] MELODIE HARGROVE . Facility: Start: 04-04-2023 Encounter for genera l adult medical examination without abnormal findings DR MELODIE HARGROVE . [facility] Start: 04-03-2023 End: 04-04-[address] MELODIE HARGROVE . Facility:[facility] Start: 04-01-2023 End: 04-02-[address] MELODIE HARGROVE . Facility:[facility] Start: 04-01-2023 End: 04-02-2023 Encounter for general adult medical examination without abnormal findings DR MELODIE HARGROVE . Facility:[facility] Start: 02-13-2023 End: 02-14-[address] MELODIE HARGROVE . Facility:[facility] Start: 02-04-2023 End: 02-04-2023 ambulatory ELLIS PARIS Facility:[facility] Start: 10-20-2022 End: 10-20-2022 ambulatory DANIEL [...] 11-19-2021 End: 11-19-2021 ambulatory Nandini Pantoja Other [facility] Other Start: 11-19-2021 Office outpatient ne w 30 minutes Nandini Pantoja [facility] Start: 12-20-2018 End: 12-21-2018 Patient encounter procedure ANDRESSA Kaur [facility] Procedures Date Procedure Procedure Detail Performing Clinician [...] osteotomy ELÍAS HOPSON Hammer toe operation ALFONSO R EMILIANA Left salpingo-oophorectomy ELÍAS HOPSON Plan of Treatment Date Care Activity Detail Author Start: 2043 Shingles (RZV) Vacci ne (1 of 2) Shingles (RZV) Vaccine (1 of 2) [facility] Start: 2024 ambulatory Ambulatory Facility:[facility] [place] Start: 2014 Screening for malign ant neoplasm of cervix Pap Smear [facility] Start: 2011 Hepatitis C screening Hepatitis C An tibody [facility] Start: 2011 Tetanus + diphtheria + acellular pertussis vaccine (product) Tdap Booster [facility] Start: 2008 HIV screening HIV Test [facility] Start: 1998 COVID-19 Vaccine (1) COVID-19 Vaccin e (1) [facility] Immunizations Immunization Date Immunization Notes Care Provider [facility] 10-28-2022 influenza virus vaccine, unspecified formulation ELÍAS HOPSON [facility] 04-15-2021 SARS-CoV-2 (COVID-19 ) mRNA-1273 vaccine ELÍAS HOPSON [facility] [place] 03-18-2021 SARS-CoV-2 (COVID-19 ) mRNA-1273 vaccine ELÍAS HOPSON [facility] [place] 03-21-2014 influenza virus vaccine, unspecified formulation Estella Guerrero MD Work Phone: [facility] Payers Date Payer Category Payer Unknown [employer] [id number] 2017-Present [id number] 1993 Unknown [id number] [id number] 1993 Unknown [id number] 2.16.840.1.864794.3.579.2.732 1993 Unknown [id number] 2.16.840.1.279302.3.579.2.593 1993 Unknown [id number] 2.16.840.1.017324.3.579.2.593 1993 Unknown [id number] 2.16.840.1.246905.3.579.2.593 1993 Unknown [id number] 2.16.840.1.596133.3.579.2.593 1993 Unknown [id number] 2.16.840.1.419952.3.579.2.593 1993 Unknown [id number] 2.16.840.1.453482.3.579.2.593 1993 Unknown [id number] 2.16.840.1.564087.3.579.2.593 1993 Unknown [id number] 2.16.840.1.255740.3.579.2.593 1993 Unknown [id number] 2.16.840.1.182806.3.579.2.593 1993 Unknown [id number] 2.16.840.1.518161.3.579.2.593 1993 Unknown [id number] 2.16.840.1.144617.3.579.2.593 1993 Unknown [id number] 2.16.840.1.254021.3.579.2.593 1993 Unknown [id number] 2.16.840.1.705125.3.579.2.727 1993 Unknown [id number] 2.16.840.1.699873.3.579.2.727 1993 Unknown [id number] 2.16.840.1.537294.3.579.2.727 1993 Unknown [id number] 2.16.840.1.134717.3.579.2.727 1993 Unknown [id number] 2.16.840.1.849625.3.579.2.727 1959 Unknown [id number] Social History Date Type Detail Facility Tobacco smoking status [facility] Tobacco smoking consumption unknown [place] [employer] Other Start: 1993 [facility] Start: 01-19-2024 End: 03-08-2024 Tobacco smoking status Never smoked tobacco (finding) [facility] Tobacco smoking status Never [facility] Functional Status Date Assessment Result Facility 03-08-2024 Functional Status N/A [facility] 01-19-2024 Functional Status N/A [facility] Clinical Notes 03-18-2022 to 03-10-2024 Note Date [...] - Denies A (more content not included)... [facility] Comment on above: Result Comment: Elec tronically Signed By: RUTH CLARK, Yonis Cardenas\Date and Time Signed: 03/10/24 12:35 EDT 02-09-2024 Note [id number] [facility] 02-09-2024 Hospital Discharg e instructions Patient Education [...] With:Dieter SALMON Address: [facility] [address] , [place] [address]- Business (1) When:06/10/2024 08:33:15 Comments:With Deepthi Hopson [facility] 02-09-2024 Note Custom Cystoscopy ? Voiding after [...] you have a fever over 100 degrees. [facility] 01-19-2024 Note Chief Complaint Referral *Frequent UTI [...] E Coli Tx'd w/ Cefdinir 300mg BID [id number] ÁLVARO 01/01/24 *No acute abnormality CTa wo/w [...] yes avoids baths/hot tubs yes avoids scented [employer] products yes urinates after sexual activity yes [...] and benefits for (more content not included)... [facility] Comment on above: Result Comment: Elec [...] including vitamins, herbs, eye drops, creams, and xtnq-axm-mczeufd medicines. Any problems you or family members [...] health care provider tells you to. ?Taking rzst-cgc-ngtucli medicines, vitamins, herbs, and supplements. General instructions [...] provider. Document Revised: 02/19/2023 Document Reviewed: 02/19/2023 [employer] Patient Education 2022 [employer]. 01/19/2024 10:32:14 Urinary Tract Infection, Adult Urinary [...] Treatment for this condition includes: Antibiotic medicine. Kmos-tou-nxyivcr medicines to treat discomfort. Drinking enough water [...] Follow these instructions at home: Medicines Take dwuu-unx-ggahnlr and prescription medicines only as told by [...] provider. Document Revised: 06/21/2021 Document Reviewed: 06/21/2021 [employer] Patient Education 2022 [employer]. Follow Up Care 01/08/2024 10:24:51 With:EMILIANA STEPHENS, ELÍAS Barreto, URL Address: [address] [place], [place] [address] [address] When: Unknown [facility] 12-17-2023 Evaluation note Encounter Date Diagnosis [...] her to avoid NSAIDs or any other ymyx-tdc-opzxyuc medication or high-protein supplements Nov, Renal lesion [...] of any breach, fraud, or malicious third democrat actors and no personal patient information was compromised. [facility] Other 01-10-2024 Evaluation note* Encounter Date Diagnosis [...] her to avoid NSAIDs or any other yvru-scb-eukcygb medication or high-protein supplements Nov, Renal lesion (ICD-10 - N28.9) She had a renal lesion of indeterminate nature on the renal ultrasound. She is ordered to have a CAT scan with contrast by the PCP. Will follow the report once done. Nov, IBS (irritable bowel syndrome) (ICD-10 - K58.9) Continue to follow with PCP for IBS management. [facility] Other 06-21-2022 NotePROCEDURE: XR SHOULDER RT 2V or > COMPARISON: None. HISTORY: Pain of right shoulder joint FINDINGS: BONES:No fracture, acute abnormality, or significant arthropathy. SOFT TISSUES:Negative. No visible soft tissue swelling. EFFUSION:None visible. OTHER: Negative. IMPRESSION: Normal examination. Electronically authenticated by: NANDINI MAYER Date: 2022-05-13 08:41[facility]04-26-2022 History of Present illness Narrative* [...] Hair) regarding headaches-- will fax information to [phone] - Offered referral to neurology, patient prefers [...] papilledema. Francisco Ayers MD documented in this [id number] History of Present illness Narrative* Francisco Ayers [...] Hair) regarding headaches-- will fax information to [phone] - Offered referral to neurology, patient prefers [...] FT Appointment Date:02/09/2024 08:15:00 AM Scheduled Provider: Location:[facility] Appointment Type:Urology FT Appointment Date:2024 08:20:00 AM Scheduled Provider:ELÍAS HOPSON PA-C Location:[facility] Appointment Type:URO Office Visit [facility] evaluation + Plan note Future Appointments Appointment Date:02/02/2024 11:30:00 AM Scheduled Provider: Location:[facility] Appointment Type:Urology CALL PAT FT Appointment Date:02/09/2024 08:15:00 AM Scheduled Provider: Location:[facility] Appointment Type:Urology FT Appointment Date:2024 08:20:00 AM Scheduled Provider:ELÍAS HOPSON PA-C Location:[facility] Appointment Type:URO Office Visit Diagnostic Tests Pending * [facility] Future App[facility]ments Appointment Date:2024 08:20:00 AM Scheduled Provider:ELÍAS HOPSON PA-C Location:[facility]ment Type:URO [facility] Diagnosis Chronic nonintractable headache, unspecified headache type- [facility] Diagnosis Chronic nonintractable headache, unspecified headache type- Primary [facility] [employer] Other Evaluation noteNo [facility]hing [facility] [employer] Other History general Narrative - ReportedNopershing memorial hospital [employer] Other [employer] general Narrative - Reported* Type Description Date Medical History irritable bowel syndrome Medical History depression Medical History PROTEINURIA, UNSPECIFIED Medical History HYPOGLYCEMIA Medical History ARTHRALGIA Medical History SHINGLES Medical History ADHD Surgical History ovary removed 2014 Surgical History cholecystectomy Surgical History bilateral fasciitis repair Surgical History bilateral bone spur removal Hospitalization History 1 child [place] [employer] Other Hospital course Narrative No data available for this section [facility] Hospital Discharge instructions No data available for this section [facility] No data available for this section [facility] Summary Purpose Family History No Family [...] section and content) DATE CREATED AUTHOR 08/31/2019 [facility] DATE CREATED AUTHOR AUTHOR'S ORGANIZ ATION 03/20/2022 [facility] DATE CREATED AUTHOR AUTHOR'S ORGANIZ ATION 04/18/2023 [facility] DATE CREATED AUTHOR AUTHOR'S ORGANIZ ATION 03/11/2024 [facility] Reason for Visit (unrecogniz ed section and content) Reason Comments Optic nerve edema Patient Care team informatio n (unrecognized section and content) Personnel Name: Melodie Hargrove MD Address: Address: [address] [place] [address] Personnel Name: Melodie Hargrove MD Address: Address: [address] [place] [address] Personnel Name: Melodie Hargrove MD Address: Address: [address] [place] [address] Personnel Name: Melodie Hargrove MD Address: Address: [address] [place] [address] FOR RECORDS PERTAINING TO PATIENTS WHO ARE [...] BE BASED ON THE PRIMARY CLINICAL RECORDS. [facility] [facility]. provides no warranty or guarantee of the accuracy or completeness of information in this document.
[2024-04-28] MEDS: 0.9 % SODIUM CHLORIDE 1,000 ML 1000 ML IV (09:23)
[2024-04-28 09:25] LABS: Mean Corpuscular HGB Conc 34.1 g/dL (29.9-35.2); Mean Corpuscular Hemoglobin 30.3 pg (26.7-34.0); Mean Corpuscular Volume 88.7 fL (81.0-99.0); Mean Platelet Volume 9.3 fL (9.5-13.5); Platelet Count 259 10^3/uL (150-450); Red Blood Count 4.62 10^6/uL (4.20-5.40); Red Cell Distribution Width 11.8 % (11.0-15.0); White Blood Count 10.3 10^3/uL (4.0-11.0)
[2024-04-28] MEDS: FAMOTIDINE/PF 20 MG/2 ML VIAL IV (09:26)
[2024-04-28] MEDS: ONDANSETRON PF 4 MG/2 ML VIAL IV (09:26)
[2024-04-28 09:35] LABS: HCG Qualitative NEGATIVE (NEGATIVE)
[2024-04-28 09:37] LABS: Influenza Virus A Antigen Negative; Influenza Virus B Antigen Negative; Internal Control Within Normal Limits
[2024-04-28 09:38] LABS: Internal Control Within Normal Limits; SARS-CoV-2 Ag NEGATIVE (NEGATIVE)
[2024-04-28 09:42] LABS: Alanine Aminotransferase 49 U/L (14-59); Albumin Globulin Ratio 1.1; Albumin Level 3.8 g/dL (3.4-5.0); Alkaline Phosphatase 68 U/L (46-116); Anion Gap 13.4; Aspartate Amino Transferase 25 U/L (15-37); BUN Creatinine Ratio 9.4; Bilirubin Total 0.4 mg/dL (0.2-1.0); Calcium 8.8 mg/dL (8.5-10.1); Carbon Dioxide 24.3 mmol/L (21.0-32.0); Chloride 102 mmol/L (98-107); Estimated GFR (African America >60 (>=60); Estimated GFR (Non-African Ame >60 (>=60); Globulin 3.4 g/dL; Glucose 111 mg/dL (74-106); Potassium 3.7 mmol/L (3.5-5.1); Sodium 136 mmol/L (136-145); Total Protein 7.2 g/dL (6.4-8.2)
[2024-04-28 09:51] LABS: Monocytes Absolute Manual 0.61 10^3/uL (0.30-0.80); Segmented Neut Absolute Manual 9.16 10^3/uL (1.4-6.5)
--- NOTE | 2024-04-28 09:56 | PC.NURSE ---
patient reports she had an egd/colonoscopy here yesterday and went home and had the normal pains i would expect but i was able to eat. patient reports she began having increased pain and nausea this morning with vomiting. patient noted to have fever upon arrival
--- NOTE | 2024-04-28 09:58 | CT_ITS ---
[address] [address] Patient Name: ROSALIE FREEMAN MRN: [id number] date: 1995 Sex: F Assigned Patient Location: ER Current Patient Location: ER Accession/Order Number: [id number] Exam Date: 04/28/2024 10:26 Report Date: 04/28/2024 10:58 At the request of: SALMA MONET Procedure: CT abdomen pelvis wo con EXAMINATION: CT abdomen pelvis wo con HISTORY: abd pain after endoscopy , nausea, fever COMPARISON: CT abdomen 12/07/2023, CT abdomen pelvis 04/20/2023 TECHNIQUE: Axial, Coronal, and Sagittal images were obtained without and/or with IV contrast as indicated by examination type. Dose reduction techniques were achieved by using automated exposure control and/or adjustment of mA and/or kV according to patient size and/or use of iterative reconstruction technique. FINDINGS: LUNG BASES: No visible pulmonary or pleural disease. LIVER: Fatty infiltration. BILIARY: Cholecystectomy. PANCREAS: No lesion, fluid collection, or abnormal duct dilatation. SPLEEN: No enlargement or focal lesion. ADRENALS: No mass or enlargement. KIDNEYS: No mass, obstruction, or calcification. BOWEL/MESENTERY: No visible mass, obstruction, or bowel wall thickening. AORTA/VASCULAR: No aneurysm or dissection. RETROPERITONEUM: No mass or adenopathy. LYMPH NODES: No adenopathy. URINARY BLADDER: No visible focal wall thickening, lesion, or calculus. PELVIC ORGANS: 2.3 cm right ovarian cyst. IUD within endometrial cavity. Trace amount of free fluid within pelvic cul-de-sac, likely physiologic. No visible mass. Pelvic organs appropriate for patient age. ABDOMINAL WALL: No mass or hernia. BONES: No bony lesion or fracture. OTHER: Negative. CT/CT abdomen pelvis wo con IMPRESSION: 1. No acute or suspicious bowel findings to account for patient's symptoms. No evidence of bowel obstruction or perforation. 2. Right ovary contains a 2.3 cm cyst of uncertain clinical significance. 3. Trace amount of free fluid confined to the pelvic cul-de-sac suspected be physiologic. Electronically authenticated by: ADRIANA MENDEZ Date: 04/28/2024 10:58
[2024-04-28 10:44] VITALS: TEMP 37.7
--- NOTE | 2024-04-28 11:10 | ED.ABDPAIN1 ---
HPI - Abdominal Pain General Chief Complaint: Abdominal Pain Stated Complaint: FLU LIKE SYMPTOMS Time Seen by Provider: 04/28/24 08:59 Source: patient Mode of arrival: walk-in History of Present Illness HPI narrative: The patient has had a endoscopy and colonoscopy done yesterday evening and she left home she started having nausea vomiting and crampy abdominal pain, she woke up to have vomiting at least 4 times this morning in addition to a fever, she also mentioned having cough She did not have any bowel movement today yet and there was no blood in the vomiting Related Data Home Medications ?Medication ?Instructions ?Recorded ?Confirmed levonorgestrel 21 mcg/24 hr (up to 1 device intrauterine .as directed 01/28/24 04/12/24 8 years) 52 mg intrauterine device (Mirena) meloxicam 15 mg tablet 15 mg PO DAILY 01/28/24 04/27/24 sertraline 100 mg tablet 100 mg PO Q24H 01/28/24 04/27/24 fexofenadine-pseudoephedrine ER 1 tab PO DAILY 04/12/24 04/27/24 180 mg-240 mg tablet,ext.release 24 hr (Susan-D 24 Hour) sulfamethoxazole 400 1 tab PO DAILY 04/12/24 04/27/24 mg-trimethoprim 80 mg tablet Previous Rx's ?Medication ?Instructions ?Recorded sucralfate 1 gram tablet (Carafate) 1 g PO TID 8 weeks #168 tabs 04/27/24 famotidine 20 mg tablet (Pepcid) 20 mg PO BID #20 tabs 04/28/24 ondansetron 4 mg disintegrating 4 mg PO Q8H PRN nausea and 04/28/24 tablet vomiting 2 days #10 tabs Allergies Allergy/AdvReac Type Severity Reaction Status Date / Time webril Allergy Hives Uncoded 04/28/24 08:58 Review of Systems ROS Status of ROS 10 or more systems reviewed and unremarkable except as noted in history and below [facility] Medical History (Updated 04/28/24 @ 11:17 by Naima Garcia MD) Insomnia ?G47.00 - Insomnia, unspecified (ICD-10) Cholecystitis without calculus ?K81.9 - Cholecystitis, unspecified (ICD-10) Anxiety ?F41.9 - Anxiety disorder, unspecified (ICD-10) Abdominal pain ?R10.9 - Unspecified abdominal pain (ICD-10) Shoulder pain, right ?M25.511 - Pain in right shoulder (ICD-10) ADHD ?F90.9 - Attention-deficit hyperactivity disorder, unspecified type (ICD-10) IBS (irritable bowel syndrome) ?K58.9 - Irritable bowel syndrome without diarrhea (ICD-10) GERD (gastroesophageal reflux disease) ?K21.9 - Gastro-esophageal reflux disease without esophagitis (ICD-10) Depression with anxiety ?F41.8 - Other specified anxiety disorders (ICD-10) Recurrent UTI (urinary tract infection) ?N39.0 - Urinary tract infection, site not specified (ICD-10) Surgical History (Updated 01/28/24 @ 11:00 by Joan Colon) H/O oophorectomy H/O unilateral salpingectomy ?Z90.79 - Acquired absence of other genital organ(s) (ICD-10) H/O colonoscopy ?Z98.890 - Other specified postprocedural states (ICD-10) S/P bilateral foot surgery ?Z98.890 - Other specified postprocedural states (ICD-10) Hx laparoscopic cholecystectomy ?Z90.49 - Acquired absence of other specified parts of digestive tract (ICD-10) Family History (Updated 04/11/24 @ 11:49 by Ana Breaux) Sister Bipolar 1 disorder Father Depression Family history of hypertension Hyperlipidemia Social History (Updated 04/12/24 @ 12:57 by Yanet Langston) Within the past year, how often did you have a drink containing alcohol: never Score interpretation: A score less than 3 is consistent with normal alcohol consumption. Smoking status: Never smoker Non-prescribed substance use: denies use Previous occupational history: [employer] Highest level of school completed/degree received: some college, no degree Gender Identity: female Exam Narrative Exam Narrative: Nurses notes and vital signs reviewed and patient is not hypoxic. General: Well-appearing and in no apparent distress. Skin: Warm, dry, no pallor noted. No rash. Head: Normocephalic, atraumatic. Neck: Supple, non-tender. Eye: Pupils are equal, round and EOMI. No scleral icterus. Ears, Nose, Mouth, and Throat: TM are clear, no nasal mucosal hypertrophy. Oral mucosa is moist, no posterior oropharynx erythema, uvula is mid-line Cardiovascular: Regular Rate and Rhythm without murmur, gallop or rub. Respiratory: No accessory muscle use or respiratory distress. Lungs are clear to auscultation, no wheezing, rales or rhonchi Chest Wall: no tenderness Back: No midline thoracic or lumbar vertebral tenderness. No CVA tenderness Musculoskeletal: normal ROM, no calf or popliteal tenderness, no lower extremity edema/swelling GI: Abdomen is soft, non-distended. Normal bowel sounds. No masses appreciated. No tenderness to palpation. No rebound, guarding, or rigidity noted. Neurological: A&O x4. No cranial nerve dysfunction observed. No truncal ataxia. Moves all extremities. Sensation intact. Psychiatric: Cooperative and interactive. Normal mood and affect. Constitutional Vital Signs, click to edit/add: Last Vital Signs Temp 99.0 F 04/28/24 11:30 Pulse 88 04/28/24 11:30 Resp 16 04/28/24 11:30 BP 142/90 H 04/28/24 11:30 Pulse Ox 98 04/28/24 11:30 O2 Del Method Room Air 04/28/24 11:30 Course Vital Signs Vital signs: Vital Signs Temperature 101.6 F H 04/28/24 08:55 Pulse Rate 125 H 04/28/24 08:55 Respiratory Rate 20 04/28/24 08:55 Blood Pressure 151/90 H 04/28/24 08:55 Pulse Oximetry 96 04/28/24 08:55 Oxygen Delivery Method Room Air 04/28/24 08:55 Temperature 99.0 F 04/28/24 11:30 Pulse Rate 88 04/28/24 11:30 Respiratory Rate 16 04/28/24 11:30 Blood Pressure 142/90 H 04/28/24 11:30 Pulse Oximetry 98 04/28/24 11:30 Oxygen Delivery Method Room Air 04/28/24 11:30 MDM - Abdominal Pain MDM Narrative Medical decision making narrative: CBC chemistry showed no acute pathology and the patient COVID and flu test are negative There was a concern initially that could be a side effect of a complication of the colonoscopy and that why the CAT scan was done showing no acute pathology as well and the x-ray of the chest was within normal Patient was discharged home with supportive care with Pepcid and Zofran after she was treated here initially with IV fluid She is mostly developing a viral illness The patient is to follow up with primary care physician in next 2-3 days or to return to the emergency department should any of the signs or symptoms worsen or new symptoms develop. The patient agrees with the following Diagnosis and Treatment plan and the patient will be discharged home. Lab Data Labs: Lab Results 04/28/24 04/28/24 Range/Units 09:12 09:16 WBC 10.3 (4.0-11.0) 10^3/uL RBC 4.62 (4.20-5.40) 10^6/uL Hgb 14.0 (12.0-16.0) g/dL Hct 41.0 (36.0-48.0) % MCV 88.7 (81.0-99.0) fL MCH 30.3 (26.7-34.0) pg MCHC 34.1 (29.9-35.2) g/dL RDW 11.8 (11.0-15.0) % Plt Count 259 (150-450) 10^3/uL MPV 9.3 L (9.5-13.5) fL Seg Neuts % (Manual) 89.0 Lymphocytes % (Manual) 3.0 L (20.5-60.0) % Monocytes % (Manual) 6.0 (1.7-12.0) % Eosinophils % (Manual) 2.0 (0.9-7.0) % Basophils % (Manual) 0.0 L (0.2-2.0) % Neutrophils # (Manual) 9.16 H (1.4-6.5) 10^3/uL Lymphocytes # (Manual) 0.30 L (1.20-3.80) 10^3/uL Monocytes # (Manual) 0.61 (0.30-0.80) 10^3/uL Eosinophils # (Manual) 0.20 (0.00-0.70) 10^3/uL Basophils # (Manual) 0.00 (0.00-0.10) 10^3/uL Sodium 136 (136-145) mmol/L Potassium 3.7 (3.5-5.1) mmol/L Chloride 102 (98-107) mmol/L Carbon Dioxide 24.3 (21.0-32.0) mmol/L Anion Gap 13.4 BUN 8.0 (7.0-18.0) mg/dL Creatinine 0.85 (0.55-1.02) mg/dL Est GFR ( Amer) >60 (>=60) Est GFR (Non-Af Amer) >60 (>=60) BUN/Creatinine Ratio 9.4 Glucose 111 H (74-106) mg/dL Calcium 8.8 (8.5-10.1) mg/dL Total Bilirubin 0.4 (0.2-1.0) mg/dL AST 25 (15-37) U/L ALT 49 (14-59) U/L Alkaline Phosphatase 68 (46-116) U/L Total Protein 7.2 (6.4-8.2) g/dL Albumin 3.8 (3.4-5.0) g/dL Globulin 3.4 g/dL Albumin/Globulin Ratio 1.1 Serum HCG, Qual Negative (NEGATIVE) Influenza Type A Ag Negative Influenza Type B Ag Negative SARS-CoV-2 Ag (CV2AG) Negative (NEGATIVE) Discharge Plan Discharge Stand Alone Forms: Portal Instructions Chief Complaint: Abdominal Pain Clinical Impression: Gastroenteritis, Viral illness Patient Disposition: Home, Self-Care Time of Disposition Decision: 11:17 Condition: Good Prescriptions / Home Meds: New ondansetron 4 mg tablet,disintegrating 4 mg PO Q8H PRN (Reason: nausea and vomiting) 2 Days Qty: 10 0RF famotidine [Pepcid] 20 mg tablet 20 mg PO BID Qty: 20 0RF No Action fexofenadine-pseudoephedrine [Susan-D 24 Hour] 180-240 mg tablet extended release 24 hr 1 tab PO DAILY sulfamethoxazole-trimethoprim 400-80 mg tablet 1 tab PO DAILY meloxicam 15 mg tablet 15 mg PO DAILY sertraline 100 mg tablet 100 mg PO Q24H Mirena 21 mcg/24 hours (8 yrs) 52 mg intrauterine device 1 device intrauterine .as directed sucralfate [Carafate] 1 gram tablet 1 g PO TID 56 Days Qty: 168 0RF Print Language: Togolese Instructions: Gastroenteritis (DC), Viral Syndrome (ED) Referrals: Shashi Hargrove MD [Primary Care Provider] - 1 week Discharge Date/Time: 04/28/24 11:32
[2024-04-28 11:30] VITALS: BP 142/90; PULSE 88; TEMP 37.2; O2SAT 98
== END 2024-04-28 11:32 | disposition home or self-care (01) ==
PROVIDERS: Emergency Provider Emergency Medicine; PCP Family Medicine
DX: K52.9 Noninfective gastroenteritis and colitis, unspecified (principal); B34.9 Viral infection, unspecified; Z98.890 Other specified postprocedural states; Z20.822 Contact with and (suspected) exposure to COVID-19
CPT/HCPCS: 36415; 71045; 74176; 80053; 84703; 85007; 85027; 87804; 87811; 96361; 96374; 96375; 99285

== ENCOUNTER 2024-06-09 12:53 | Outpatient (OUT) | payer OTHER, SELFPAY ==
[2024-06-09 13:15] LABS: Basophils Percent Auto 0.5 % (0.2-2.0); Eosinophils Absolute Auto 0.3 10^3/uL (0.0-0.7); Eosinophils Percent Auto 3.7 % (0.9-7.0); Hematocrit 38.6 % (36.0-48.0); Hemoglobin 12.9 g/dL (12.0-16.0); Immature Granulocytes Abs Auto 0.01 10^3/uL (0.00-0.03); Immature Granulocytes Pct Auto 0.1 % (0.0-0.5); Lymphocytes Absolute Auto 1.6 10^3/uL (1.2-3.8); Lymphocytes Percent Auto 21.2 % (20.5-60.0); Mean Corpuscular HGB Conc 33.4 g/dL (29.9-35.2); Mean Corpuscular Hemoglobin 30.9 pg (26.7-34.0); Mean Corpuscular Volume 92.3 fL (81.0-99.0); Monocytes Absolute Auto 0.5 10^3/uL (0.3-0.8); Monocytes Percent Auto 6.8 % (1.7-12.0); Neutrophils Absolute Auto 5.1 10^3/uL (1.4-6.5); Neutrophils Percent Auto 67.7 % (43.0-75.0); Platelet Count 273 10^3/uL (150-450); Red Blood Count 4.18 10^6/uL (4.20-5.40); Red Cell Distribution Width 11.9 % (11.0-15.0); White Blood Count 7.5 10^3/uL (4.0-11.0)
[2024-06-09 13:31] LABS: Estimated Average Glucose 108 mg/dL; Glycohemoglobin A1C 5.4 % (4.5-6.2)
[2024-06-09 13:44] LABS: Thyroid Stimulating Hormone 3.872 uIU/mL (0.358-3.740)
[2024-06-09 14:20] LABS: HCG Quantitative <1 mIU/mL
[2024-06-09 15:09] LABS: Free T4 0.84 ng/dL (0.76-1.46)
[2024-06-10 12:10] LABS: FSH 5.9 mIU/mL (.); Luteinizing Hormone(LH) 9.5 mIU/mL (.)
[2024-06-16 15:09] LABS: DHEA, Serum 140 ng/dL (31-701)
== END 2024-06-09 12:54 | disposition home or self-care (01) ==
LOC: LAB 12:56
PROVIDERS: PCP Family Medicine; Visit Provider Obstetrics & Gynecology
DX: R10.2 Pelvic and perineal pain (principal); E28.2 Polycystic ovarian syndrome
CPT/HCPCS: 36415; 82626; 82627; 83001; 83002; 83036; 84439; 84443; 84702; 85025

== ENCOUNTER 2024-06-27 08:56 | Outpatient (OUT) | payer OTHER, SELFPAY ==
--- NOTE | 2024-06-27 09:01 | US_ITS ---
The [address] [address] Patient Name: ROSALIE FREEMAN MRN: [id number] date: 1995 Sex: F Assigned Patient Location: [facility] Current Patient Location: Accession/Order Number: [id number] Exam Date: 06/27/2024 09:02 Report Date: 06/28/2024 08:07 At the request of: DEISY CARDONA Procedure: US pelvis transvaginal EXAM: Pelvic ultrasound HISTORY: . PELVIC PAIN, VAGINAL DISCHARGE . COMPARISON: None. TECHNIQUE: Transvaginal scanning was performed FINDINGS: Scanning of the pelvis demonstrates uterus to measure 9.5 x 4.2 x 6.5 cm. Endometrial complex measures 5 mm. Small nabothian cysts were noted within the cervix. Right ovary measures 2.5 x 1.9 x 2 cm. Color-flow is noted. No masses were noted. Left ovary was not identified. By history left ovary is been removed. No fluid is noted in the cul-de-sac. US/US pelvis transvaginal IMPRESSION: 1. Normal-appearing uterus and endometrial complex. 2. Normal-appearing right ovary. 3. Left ovary is been removed. Electronically authenticated by: NANDINI LOVING Date: 06/28/2024 08:07
== END 2024-06-27 08:57 | disposition home or self-care (01) ==
LOC: NOMS 08:57
PROVIDERS: PCP Family Medicine; Visit Provider Obstetrics & Gynecology
DX: R10.2 Pelvic and perineal pain (principal); N89.8 Other specified noninflammatory disorders of vagina
CPT/HCPCS: 76830

== ENCOUNTER 2024-07-04 14:04 | Outpatient (OUT) | payer OTHER, SELFPAY ==
--- OUTSIDE RECORDS SUMMARY | 2024-07-04 14:18 | XMS_ITS | CCD ---
Author Organization [facility] Care Team Providers Care Acls Nurse Name Role Phone ANDRESSA ESCALANTE Referring Unavailable SHASHI HARGROVE Primary Care Unavailable Unavailable Primary Care [...] DR SEWELL Consulting Unavailable HOY ., DR SWEELL Primary Care Unavailable HOY ., DR SEWELL Attending Unavailable HOY ., DR SEWELL Admkaty Unavailable ASHTON, DR NANDINI Stafford Consulting Unavailable HOY ., DR SEWELL Consulting Unavailable HOY ., DR SEWELL Primary Care Unavailable HOY ., DR SEWELL Attending Unavailable HOY ., DR SEWELL Admkaty Unavailable HOY ., DR SEWELL Consulting Unavailable HOY ., DR SEWELL Primary Care Unavailable HOY ., DR SEWELL Attending Unavailable HOY ., DR SEWELL Admitting Unavailable ASHTON, DR NANDINI Stafford Consulting Unavailable HOY ., DR SEWELL Primary Care Unavailable HOY ., DR SEWELL Attending Unavailable HOY ., DR SEWELL Admitting Unavailable NACHO, JETHRO Consulting Unavailable NACHO, JETHRO Attending Unavailable NACHO, JETHRO Admitting Unavailable HOY ., DR SEWELL Primary Care Unavailable PARIS, ELLIS Consulting Unavailable PARIS, ELLIS Attending Unavailable PARIS, ELLIS Admitting Unavailable HOY ., DR SEWELL Primary Care Unavailable Mary Grace Taniya Unavailable Shashi Hargrove Primary Care Physician [phone] MD Shashi Hargrove Primary Care Provider [phone] MD Yonis Carney Attending Provider Shashi Hargrove Primary Care Unavailable Ruth, Yonis Mckenzie Attending Unavailable Nill, Yonis Mckenzie Admitting Unavailable EMILIANA, JANNETH Barreto Admitting Unavailable EMILIANA, JANNETH Barreto Attending Unavailable NILL, Yonis Mckenzie Attending Unavailable SawyShashi Referring Unavailable NILL, Yonis Mckenzie Attending Unavailable NILL, Yonsi Mckenzie Attending Unavailable EMILIANA, JANNETH Barreto Attending Unavailable HoyShashi Referring Unavailable EMILIANA, JANNETH Barreto Attending Unavailable SALMON, Dieter R Attending Unavailable SALMON, Dieter Mckenzie Referring Unavailable SALMONDieter R Admitting Unavailable DULCEDEISY DILLARD Attending Unavailable DEISY CARDONA Attending Unavailable Allergies Allergy Classification Reported Allergen(s) Allergy Type Date of Onset Reaction(s) Facility (1 source) [facility]; Translations: [[facility]] Propensity to adverse reactions (disorder) 0 [facility] Repository (3 sources) [employer] [facility] Drug allergy [employer] [place] [employer] Other (1 source) No Known Medication Allergies; Translations: [No Known Medication Allergies] Propensity to adverse reactions (disorder) [facility] Repository Medications Current Medications Medication [...] 1 tablet by mouth every twelve hours famotidine 20 mg oral tablet (2 sources) Histamine-2 Receptor Antagonist Start: 2024 famotidine 20 mg Tab Refills(s) 0 Start Date: 05/10/24 Status: Ordered 24 hr guanFACINE 3 mg extended release oral tablet (6 sources) Central alpha-2 Adrenergic Agonist Start: 01-19-2024 guanfacine 3 mg oral tablet, extended release Refills(s) 0 Start Date: 01/19/24 Status: Ordered take 1 tablet by mouth once tyrell y guanFACINE HCl ER 3 MG TAKE 1 TABLET BY MOUTH EVERY DAY Oral for 30 Days Active ondansetron 4 mg disintegrating oral tablet (5 sources) Serotonin-3 Receptor Antagonist Start: 2024 ondansetron 4 mg Dis Tab Refills(s) 0 Start Date: 05/10/24 Status: Ordered Start: 09-19-2021 take 1 tablet by joesph th every six hours ondansetron 4 mg Tab 4 mg = 1 tab(s), Oral, q6hr, Refills(s) 0 Start Date: 09/19/21 Status: Ordered sertraline 100 mg oral tablet (10 sources) Serotonin Reuptake Inhibitor Start: 09-19-2021 take 1 tablet by mouth once daily Zoloft 100 mg Tab 100 mg = 1 tab(s), Oral, Daily, Refills(s) 0 Start Date: 09/19/21 Status: Ordered sulfamethoxazole 400 mg / trimethoprim 80 mg oral tablet (6 sources) Dihydrofolate Reductase Inhibitor Antibacterial, Sulfonamide Antimicrobial Start: 01-19-2024 Bactrim 400 mg-80 mg Tab 1 tab(s), Oral, Daily UTI prevention, 30 tab(s), Refill(s) 3, [id number], 180, cm, 01/19/24 9:37:00 EST, Height/Length [...] completed., # 2 cap(s), Refills(s) 0, Pharmacy: [id number], 180, cm, 01/19/24 9:37:00 EST, Height/Length Dosing, 145.5, kg, 01/19/24 9:37:00 EST, Weight Dosing Start Date: 01/19/24 Status: Ordered levonorgestrel 0.970878 mg/hr intrauterine system (6 sources) Progestin, Progestin-containin g Intrauterine Device Start: 09-19-2021 Mirena 52 mg intrauteral device 52 mg = 1 EA, IntraUteral, Once Start Date: 09/19/21 Status: Ordered meloxicam 15 mg oral tablet (9 sources) Nonsteroidal Anti-inflammatory Drug Start: 01-15-2024 meloxicam 15 mg Tab 15 mg = 1 tab(s), Oral, Daily, 0 Refill(s), Refills(s) 0 Start Date: 01/15/24 Status: Ordered take 1 tablet by joesph th every twenty-four hours Meloxicam 15 MG 1 tablet Orally Once a day Active Problems Active Problems Problem Classification Problem Date Documented Da te Episodic/Chronic Abdominal pain (12 sources) Epigastric pain; Translations: [Right upper quadrant pain] 09-20-2021 Episodic Anxiety disorders (6 sources) Anxiety 09-20-2021 Chronic Biliary tract disease (6 sources) Chronic cholecystitis with calculus 09-30-2021 Episodic Conditions associated with dizziness or vertigo (4 sources) Dizziness and giddiness; Translations: [DIZZINESS AND GIDDINESS] Onset: 3 Episodic Esophageal disorders (19 sources) Gastroesophageal reflux disease; Translations: [Gastro-esophageal reflux disease without esophagitis] Onset: 1 Resolved: 1 Chronic Fluid and electrolyte disorders (1 source) Hypokalemia Episodic Genitourinary symptoms and ill-defined conditions (2 sources) Proteinuria, unspecified Episodic Headache; including migraine (2 sources) Headache; Translations: [Chronic nonintractable headache, unspecified headache type] Episodic Mood disorders (6 sources) Mood disorder 09-19-2021 Chronic Nausea and vomiting (1 source) Nausea; Translations: [NAUSEA] Onset: 3 Episodic Other acquired deformities (6 sources) Scoliosis deformity of spine 09-20-2021 Chronic Other aftercare (1 source) Other nursing home (current) drug therapy; Translations: [OTH [facility] CURRENT DRUG THERAPY] Onset: 3 Episodic Other diseases of kidney and ureters (2 sources) Disorder of kidney and ureter, unspecified Episodic Other diseases of kidney and ureters (2 sources) Disorder of kidney and/or ureter; Translations: [Disorder of kidney and ureter, unspecified] Onset: 4 Episodic Other diseases of kidney and ureters (6 sources) Kidney lesion 01-19-2024 Episodic Other endocrine disorders (4 sources) Other hypoglycemia; Translations: [OTHER HYPOGLYCEMIA] Onset: 3 Chronic Other gastrointestinal disorders (11 sources) Irritable bowel syndrome; Translations: [Irritable bowel syndrome without diarrhea] Onset: 4 Chronic Other gastrointestinal disorders (3 sources) Irritable bowel syndrome without diarrhea Onset: 1 Resolved: 1 Chronic Other gastrointestinal disorders (2 sources) Altered bowel function 03-10-2024 Episodic Other gastrointestinal disorders (2 sources) Diarrhea 03-10-2024 Episodic Other nutritional; endocrine; and metabolic disorders (6 sources) Body mass index 40+ - severely obese 09-20-2021 Chronic Other nutritional; endocrine; and metabolic disorders (3 sources) Morbid obesity 03-04-2024 Chronic Other screening for suspected conditions (not mental disorders or infectious disease) (6 sources) Ultrasonography of biliary tract abnormal 09-20-2021 Episodic Other skin disorders (6 sources) Acne vulgaris 09-20-2021 Episodic Residual codes; unclassified (6 sources) Insomnia 09-20-2021 Episodic Unclassified (3 sources) CONTACT W/AND (SUSP) EXPOS COVID-19; Translations: [CONTACT W/AND (SUSP) EXPOS COVID-19] Onset: 2 Unclassified (1 source) COUGH, UNSPECIFIED; Translations: [COUGH, UNSPECIFIED] Onset: 2 Urinary tract infections (13 sources) Urinary tract infection, site not specified; [...] Test Name Value Interpretation Reference Range Facility Screenson 05-11-2024 Screens [id number]. 00TIFF Normal [facility] Ambulatory Visit Summaryon 0 2024 Ambulatory Visit Summary ROSALIE FREEMAN V :1995 Visit Date:2024 Ambulatory Visit Instructions Your Diagnosis Recurrent UTI Renal lesion Your Care Team Attending Physician - JANNETH HOPSON PA-C Primary Care Physician - Shashi Hargrove MD This Is Your Medications List sulfamethoxazole-trime thoprim (Bactrim 400 mg-80 mg Tab) Contact prescribing physician if questions or concerns famotidine (famotidine 20 mg Tab) levonorgestrel (Mirena 52 mg intrauteral device) meloxicam (meloxicam 15 mg Tab) ondansetron (ondansetron 4 mg Dis Tab) sertraline (Zoloft 100 mg Tab) Procedures Performed Colonoscopy (04/29/2024), Cystoscopy (02/09/2024), Laparoscopic cholecystectomy (10/02/2021), Colonoscopy (07/09/2016), Correction of hammer toe, Hallux valgus correction by phalanx osteotomy, Left salpingo-oophorectomy, Plantar fasciotomy. Discharge Vitals Heart Rate (Peripheral) 74 Respiratory Rate 16 Blood Pressure 125/82 Height 180 cm Height 71 in Weight 150 kg Weight 330 lb BMI 46.3 What to do next Scheduled Follow-Up Appointments Thursday 3:00 PM EDT With: RUTH CLARK, Yonis Mckenzie Where: [facility] General Surgery [facility] Patient Educationon 05-10-20 24 Patient Education Caregiving Antibiotic Medicine, Adult Antibiotic medicines are used to treat infections caused by bacteria, such as strep throat and urinary tract infection (UTI). Antibiotic medicines will not work for colds, the flu (influenza), or other illnesses caused by viruses. These medicines work by killing the bacteria that are making you sick. Antibiotics can also have serious side effects. It is important that you take antibiotic medicines safely and only when needed. When do I need to take antibiotics? You may need antibiotics for: ? UTI. ? Strep throat. ? Bacterial sinusitis. ? Meningitis. This infection affects the spinal cord and brain. ? Serious lung infection. You may start antibiotics while your health care provider waits for your results from any tests for possible infection. Tests may include a culture of your throat, urine, blood, or mucus. Your health care provider may change or stop your antibiotic depending on your test results. When are antibiotics not needed? You do not need antibiotics for most common illnesses. These illnesses may be caused by a virus, not by bacteria. You do not need antibiotics for: ? The common cold. ? Influenza. ? Sore throat. ? Discolored mucus. ? Bronchitis. Antibiotics are not always needed for all infections caused by bacteria. Many of these infections clear up without antibiotic treatment. Do not ask for or take antibiotics when they are not necessary. How long should I take my antibiotic? You must take the entire prescription. Continue to take your antibiotic for as long as told by your health care provider. Do not stop taking it even if you start to feel better. If you stop taking it too soon: ? You may start to feel sick again. ? Your infection may become harder to treat. Each course of antibiotics needs a different amount of time to work. Some antibiotic courses last only a few days. Some last about a week to 10 days. In some cases, you may need to take antibiotics for a few weeks to completely treat your infection. What if I miss a dose? Try not to miss any doses of medicine. If you miss a dose, call your health care provider or pharmacist for advice. Sometimes it is okay to take the missed dose as soon as possible. Do not take double or extra doses. What are the risks of taking antibiotics? Antibiotics can cause: ? Allergic reactions. ? Nausea. ? Yeast infections. ? Liver problems. Antibiotics can also cause an infection called Clostridioides difficile (C. difficile or C. diff), which causes severe diarrhea. This infection happens when the antibiotics kill the healthy bacteria in your intestines. This allows C. diff to grow. C. diff needs to be treated right away. Let your health care provider know if: ? You develop diarrhea while taking an antibiotic. ? You develop diarrhea after you stop taking an antibiotic. C. diff infection can start weeks after stopping the antibiotic. Taking an antibiotic also puts you at risk for getting sick in the future with bacteria that do not respond to medicine (antibiotic-resistant infection). Antibiotics can cause bacteria to change so that if the antibiotic is taken again, the medicine cannot kill the bacteria. These infections can be more serious and, in some cases, life-threatening. Do antibiotics affect control? control pills may not work while you are on antibiotics. If you are taking control pills, continue taking them as usual and use a second form of control, such as a condom, to avoid unwanted . Continue using the second form of control until your health care provider says you can stop. What else should I know about taking antibiotics? It is important for you to take antibiotics exactly as told. Make sure to: ? Take the correct amount of medicine at the same time each day. ? Ask your health care provider: ? How long to wait between doses. ? If your antibiotic should be taken with food. ? If there are any foods, drinks, or medicines that you should avoid while taking your antibiotics. ? If there are any side effects you should be aware of. ? Use only the antibiotics prescribed for you by your health care provider. Do not use antibiotics prescribed for someone else. ? Drink a large glass of water when taking your antibiotics. Drink enough fluid to keep your urine pale yellow. ? Ask your pharmacist for a syringe, cup, or spoon that properly measures your antibiotics. ? Throw away any leftover medicine. Follow these instructions at home: ? Take gyum-xhq-namrggl and prescription medicines as told by your health care provider. ? Return to your normal activities as told by your health care provider. Ask your health care provider what activities are safe for you. ? Keep all follow-up visits as told by your health care provider. This is important. Contact a health care provider if: ? Your symptoms get worse. (more content not included)... [facility] Urology Office/Clinic Noteon 2024 Urology Office/Clinic Note Chief Complaint S/P Cysto HPI Staff S/P Cysto (PRW) 02/09/24 [facility] 01/28/24 *Normal [facility]. Complete emptying of bladder. DX: Recurrent UTI, Renal Lesion & IBS *Started on post coital abx suppressive at time of last encounter. (PETER) Denies UTI since last encounter. Denies flank pain. Did have colonoscopy 2wks ago. Increased urgency, attributes to not paying attention. Denies loss of bladder control due to urgency. Does have some leaking after coughing/sneezing. History of Present Illness staff HPI reviewed and agree. Review of Systems PHQ Score Initial Depression Screen Score: 0 SCORE no fever, chills, malaise, myalgia. no rash/lesions. no chest pain, palpitations, or SOB. no abdominal pain, nausea, vomiting. no unilateral calf swelling, redness, pain Physical Exam Vitals & Measurements HR: 74(Peripheral) RR: 16 BP: 125/82 HT: 71 in HT: 180 cm WT: 150 kg WT: 330 lb BMI: 46.3 General: nontoxic, NAD Mouth: moist mucosa Lungs: normal respiratory effort Cardio: regular rate, good distal perfusion Abdomen: nondistended, no suprapubic distention or tenderness, no CVA tenderness Neurologic: Grossly normal Skin: No rashes or suspicious lesions Assessment/Plan 1. Recurrent UTI (N39.0: Urinary tract infection, site not specified) Typically asx until sxs become severe such as severe abdominal pain and mainly left flank pain. Burning, frequency, urgency. Has IBS and PCOS so abdominal pain is normal for her. CT AP wo/w 12/07/23 - neg for stones. Renal US 01/01/24 - neg for abnormalities or stones. [facility] 01/28/24 - wnl. Complete emptying of bladder. S/p Cysto 02/09/24 - Normal urethra. Moderate bladder trabeculations. No bladder tumors or signs of cystitis. S/p colonoscopy 2wks ago. States everything came back normal. Is considering f/u with a drywall contractor. Also had a difficult PO recovery and had a CT scan done in the ER which indicated her Mirena is not in the correct spot. States she plans to f/u with her skirt clipper. We did speak about how some pts don't tolerate IUD/can have /GI sx from it. Started on Bactrim SS 1 tab prn post-coital at prior OV. Has been taking this. Denies any infections since last encounter. UA today shows trace leuks. No current UTI sxs. Overall very satisfied with sx control. Advised pt to continue current regimen given she has not had any infections and recurrent UTI episodes were only less than 6 mos ago. We agree benefits outweigh risks. -Cont Bactrim SS 1 tab prn -F/u with AGENT PRODUCER to discuss IUD/different form of control -F/u in 6 mos w/ no labs 2. Renal lesion (N28.9: Disorder of kidney and ureter, unspecified) Renal US 11/27/23 shows a 1.8cm indeterminate lesion Rt renal midpole cortex. CTA wo/w 12/07/23 neg for suspicious renal lesion Repeat renal US 01/01/24 did not show any abnormality. -no further imaging/fu indicated [1] Follow-up With When Contact Information EMILIANA STEPHENS, JANNETH Barreto, URL [address] [place] [address] [phone] Additional Instructions: 6 mos (no labs) Patient Education Antibiotic Medicine, Adult Documentation recorded by the curt Parra accurately reflects the services(s) I performed and decisions made by me. Authenticated by Janneth Hopson PA-C on 2024 09:54:59. I, Ondina Parra, personally scribed for Janneth Hopson PA-C on 2024 09:50:28. . Problem List/Past Medical History Ongoing Abdominal pain, RUQ Abnormal ultrasound of gallbladder Acne vulgaris Anxiety BMI 45.0-49.9, adult Change in bowel habits Chronic cholecystitis with calculus Chronic GERD Epigastric pain Frequent loose stools GERD (gastroesophageal reflux disease) IBS (irritable bowel syndrome) Insomnia Laryngopharyngeal reflux Mood disorder Morbid obesity Recurrent UTI Renal lesion Scoliosis Historical No qualifying data Procedure/Surgical History Colonoscopy (04/29/2024), Cystoscopy (02/09/2024), Laparoscopic cholecystectomy (10/02/2021), Colonoscopy (07/09/2016), Correction of hammer toe, Hallux valgus correction by phalanx osteotomy, Left salpingo-oophorectomy, Plantar fasciotomy. Medications Bactrim 400 mg-80 mg Tab, 1 tab(s), Oral, Daily, PRN, 3 refills famotidine 20 mg Tab meloxicam 15 mg Tab, 15 mg= 1 tab(s), Oral, Daily Mirena 52 mg intrauteral device, 52 mg= 1 EA, IntraUteral, Once ondansetron 4 mg Dis Tab Zoloft 100 mg Tab, 100 mg= 1 tab(s), Oral, Daily Allergies No Known Allergies No Known Medication Allergies Social History Alcohol - Denies Alcohol Use, 09/20/2021 Substance Abuse - Denies Substance Abuse, 09/20/2021 Tobacco Never (less than 100 in lifetime) Tobacco Use:. Never Smokeless Tobacco Use:. Household tobacco concerns: No. Yes, 2024 Family History Bipolar: Sister. Depression: Father. Hyperlipidemia: Father. Hypertension: Father. Immunizations Vaccine Date Status influenza virus vaccine, (more content not included)... [facility] Comment on above: Result Comment: Elec tronically Signed By: JANNETH HOPSON PA-C\.br\Date and Time Signed: 05/10/24 09:55 EDT\.br\Electronically Co-Signed By: Ondina Parra\.br\Date and Time Co-Signed: 05/10/24 09:51 EDT Outside Colonoscopyon 2023 Outside Colonoscopy [id number] TIFF Normal [facility] Lab Reportson 04-28-2024 Lab Reports [id number]#1.0 0TIFF [facility] Consent for Procedure/Surger yon 03-09-2024 Consent for Procedure/Surgery [id number]#1.0 0TIFF [facility] Ambulatory Visit Summaryon 0 03-08-2024 Ambulatory Visit Summary ASHLEE FREEMANN Rivera :1995 Visit Date:03/08/2024 Ambulatory Visit Instructions Your Care Team Attending Physician - RUTH CLARK, Yonis Mckenzie Primary Care Physician - Beena CLARK, Shashi Referring Physician - Shashi Hargrove MD This Is Your Medications List [...] Follow-Up Appointments Thursday 8:20 AM EDT With: JANNETH HOPSON PA-C Where: [facility] [place] [facility] Physician Referralon Physician Referral [id number] 0TIFF [facility] Physician Referralon 024 Physician Referral [id number]#1.0 0TIFF [facility] Consent for Procedure/Surger yon 02-09-2024 Consent for Procedure/Surgery [id number]. 00TIFF [facility] Consent for Treatmenton 01-21 Consent for Treatment [id number]#1.0 0TIFF [facility] IntraOperative Documentson 0 02-09-2024 IntraOperative Documents [id number]. 00TIFF [facility] Main OR Intraoperative Recor don 02-09-2024 Main OR Intraoperative Record IntraOp Document Type FTURO Summary Primary Physician: Dieter SALMON MD Finalized Date/Time: 02/09/24 08:32:09 Pt. Name: ROSALIE FREEMAN/Sex: 1995 Female Med Rec #: [id number] Physician: Dieter SALMON MD Financial #: [id number] Pt. Type: O Room/Bed: / Admit/Disch: 02/09/24 07:32:51 - Institution: Case Times FTURO Entry 1 Patient Times In Room 02/09/24 08:10:00 Out Room 02/09/24 08:38:00 Procedure Times Start 02/09/24 08:24:00 Stop 02/09/24 08:33:00 Anesthesia Times Last Modified By: Сергей RN, Sangita CHIN 02/09/24 08:31:26 Case Attendance FTURO Entry 1 Entry 2 Entry 3 Case Attendee SANDRITA CLARK, Dieter Rushing RN, RAYMONDOR, Maryam GRIGSBYBianca Role Performed Surgeon - Primary Conductor/Engineer - Primary Scrub - Primary Time In 02/09/24 08:10:00 02/09/24 08:10:00 02/09/24 08:10:00 Time Out 02/09/24 08:38:00 02/09/24 08:38:00 02/09/24 08:38:00 Procedure CYSTOSCOPY LOCAL(.) CYSTOSCOPY LOCAL(.) CYSTOSCOPY LOCAL(.) Comments Last Modified By: Сергей VALENZUELA, RAYMONDOR, Сергей VALENZUELA, RAYMONDOR, Сергей VALENZUELA, RAYMONDOR, Sangita [...] Met? Yes Last Modified By: Сергей VALENZUELA, GIUSEPPE, Sangita 02/09/24 08:31:51 Post-Care Text: The patient [...] SALMON MD, Verified (If Participants Сергей VALENZUELA, CNOR, Applicable) Maryam Quesada CST Bianca A Time Out Complete 02/09/24 08:14:00 Allergies [...] GIUSEPPE Rushing RN, Ruthann 02/09/24 08:32 [facility] Main OR Preoperative Recordo n 02-09-2024 Main OR Preoperative Record Holding Area Document Type FTURO Summary Primary Physician: Dieter SALMON MD Finalized Date/Time: 02/09/24 08:08:52 Pt. Name: ROSALIE FREEMAN/Sex: 1995 Female Med Rec #: [id number] Physician: Dieter SALMON MD Financial #: [id number] Pt. Type: O Room/Bed: / Admit/Disch: 02/09/24 [...] GIUSEPPE Rushing RN, Ruthann 02/09/24 08:08 [facility] Operative Reporton Operative Report Patient: ASHLEE FREEMAN [...] cause of her recurrent urinary tract infections.. [facility] Comment on above: Result Comment: Elec tronically Signed By: SANDRITA CLARK, Dieter Cardenas\Date and Time Signed: 02/09/24 08:36 EDT Outpatient Surgery Discharge Instructionon 02-09-2024 Outpatient Surgery Discharge Instruction [id number]. 00TIFF [facility] RAD - MISCon 01-29-2024 RAD - MISC [id number] 0TIFF [facility] C Urineon 01-21-2024 Bacteria identified Cx Nom (U) Microbiology PROCEDURE: Urine Culture [R1] SOURCE: U CleanCatch BODY SITE: COLLECTED DATE/TIME: 01/19/2024 10:53 EST RECEIVED DATE/TIME: 01/19/2024 19:24 EST START DATE/TIME: 01/19/2024 19:24 EST FREE TEXT SOURCE: JANNETH HPOSON PA-C, PA-C, JENNIFER E FINAL REPORTS Final Report [] Verified Date/Time: 01/21/2024 07:11 EST 5,000 cfu/ml Mixed skin contaminants Performing Locations R1: This test was performed at: [facility] [facility], [address] [place] [address], [phone] , [facility] Comment on above: Performed By: #### [id number] #### [facility] [address] [place] [address] Lab Reportson 01-21-2024 Lab Reports [id number]. 00[employer]FF [facility] Lab Reports [id number]. 00TIFF [facility] Lab Reports [id number]. 00TIFF Normal [facility] Lab Reports [id number]#1. 00[employer] [facility] RAD - CT Reporton 01-21-2024 RAD - CT Report [id number]. 00[employer] [facility] RAD - Ultrasound Reporton RAD - Ultrasound Report [id number]. 00[employer] [facility] RAD - Ultrasound Report [id number]#1. 00[employer] [facility] Screenson 01-21-2024 Screens [id number]#[id number] 0[employer]FF [facility] Ambulatory Visit Summaryon 0 01-19-2024 Ambulatory Visit Summary ROSALIE FREEMAN V :1995 Visit Date:01/19/2024 Ambulatory Visit Instructions Your Diagnosis Recurrent UTI Renal lesion Tests Performed Voiding Urethrocystogram XR -- Results Pending -- Please visit your patient portal for your results or contact your primary care physician. Your Care Team Attending Physician - JANNETH HOPSON PA-C Primary Care Physician - Shashi Hargrove MD Referring Physician - Shashi Hargrove MD This Is Your Medications List [...] the Following Appointments Follow Up with EMILIANA STEPHENS, RASHMI HARPER When: Where: [address] [place] [address] Medications What How Much When Instructions New sulfamethoxazole-trime thoprim (Bactrim 400 mg-80 mg Tab) 1 Tablets By Mouth Every day as needed for UTI prevention Refills: 3 Pickup at [facility]/pharmacy #[id number] Unchanged guanfacine (guanfacine 3 mg [...] physician if questions or concerns Pharmacy Information [facility]/pharmacy #[id number]: [address] [place], [place] [phone] Allergies No Known Allergies No Known Medication [...] Trouble urinati (more content not included)... Normal [facility] Patient Educationon 01-19-20 24 Patient Education Obstetrics [...] this condition includes: ? Antibiotic medicine. ? Xshg-fih-zljflbh medicines to treat discomfort. ? Drinking enough [...] these instructions at home: Medicines ? Take azuu-jws-[id number] and prescription medicines only as told by [...] Document Revie (more content not included)... Normal [facility] BNPon 04-17-2023 Natriuretic peptide B (Bld) [Mass/Vol] 246.0 pg/mL Normal <=450.0 [facility] Comment on above: Performed By: #### I NSULIN #### [facility] [address] [address] [address] Saray Souza CARDIAC NELI ADMITon 023 CK [Catalytic activity/Vol] 47 U/L Normal 26-192 [facility] Comment on above: Performed By: #### I NSULIN #### [facility] [address] [place] [address] Dr. Saray Souza CK.MB [Mass/Vol] 1.02 ng/mL Normal <=3.60 [facility] Comment on above: Performed By: #### I NSULIN #### [facility] [address] [place] [address] Dr. Saray Souza HSTROP 4.5 pg/mL Normal 4.0-51.3 [facility] Comment on above: Result Comment: CUT- OFF POINTS HAVE BEEN ESTABLISHED BASED ON THE FOURTH UNIVERSAL DEFINITIONS OF MYOCARDIAL INFARCTION. THE UPPER REFERENCE LIMIT (URL) OF TROPONIN, DEFINED THE 99TH PERCENTILE OF cTnI DISTRIBUTION IN A REFERENCE POPULATION, HAS BEEN CONFIRMED THE DECISION THRESHOLD FOR IN DIAGNOSIS. Performed By: #### I CURLYULIN #### [facility] [address] [place] [address] Dr. Saray Souza FRANKLIN 36 ng/mL Normal 9-82 [facility] Comment on above: Performed By: #### I CURLYULIN #### [facility] [address] [place] [address] Dr. Saray Souza CBC W MANUAL DIFFon 04-17-20 23 ATYPICAL LYMPH # Normal [facility] Comment on above: Performed By: #### C EDGARDO #### [facility] [address] [place] [address] Dr. Saray Souza ATYPICAL LYMPH % Normal [facility] Comment on above: Performed By: #### C EDGARDO #### [facility] [address] [place] [address] Dr. Saray Souza BAND # 0.3 103/ul Normal 0.0-0.3 [facility] Comment on above: Performed By: #### C EDGARDO #### [facility] [address] [place] [address] Dr. Saray Souza BAND % 1 % Normal 0-5 [facility] Comment on above: Performed By: #### C EDGARDO #### [facility] [address] [place] [address] Dr. Saray Souza BASOM # 0.00 103/ul Normal 0.00-0.10 [facility] Comment on above: Performed By: #### C EDGARDO #### [facility] [address] [place] [address] Dr. Saray Souza BASOM % 0.0 % Critically low 0.2-2.0 [facility] Comment on above: Performed By: #### C EDGARDO #### [facility] [address] [place] [address] Dr. Saray Souza BLAST # Normal [facility] Comment on above: Performed By: #### C EDGARDO #### [facility] [address] [place] [address] Dr. Saray Souza BLAST % Normal [facility] Comment on above: Performed By: #### C EDGARDO #### [facility] [address] [place] [address] Dr. Saray Souza CORRECTED WBC Normal 4.0-11.0 [facility] Comment on above: Performed By: #### C EDGARDO #### [facility] [address] [place] [address] Dr. Saray Souza EOS # 0.00 103/ul Normal 0.00-0.70 [facility] Comment on above: Performed By: #### C EDGARDO #### [facility] [address] [place] [address] Dr. Saray Souza EOS% 0.0 % Critically low 0.9-7.0 [facility] Comment on above: Performed By: #### C EDGARDO #### [facility] [address] [place] [address] Dr. Saray Souza HCT 43.6 % Normal 36.0-48.0 [facility] Comment on above: Performed By: #### C EDGARDO #### [facility] [address] [place] [address] Dr. Saray Souza HGB 14.7 g/dl Normal 12.0-16.0 [facility] Comment on above: Performed By: #### C EDGARDO #### [facility] [address] [place] [address] Dr. Saray Souza LYMPHM # 1.55 103/ul Normal 1.20-3.80 [facility] Comment on above: Performed By: #### C EDGARDO #### [facility] [address] [place] [address] Dr. Saray Souza LYMPHM% 6.0 % Critically low 20.5-60.0 [facility] Comment on above: Performed By: #### C EDGARDO #### [facility] [address] [place] [address] Dr. Saray Souza MCH 30.3 pg Normal 26.7-34.0 [facility] Comment on above: Performed By: #### C EDGARDO #### [facility] [address] [place] [address] Dr. Saray Souza MCHC 33.7 g/dl Normal 29.9-35.2 [facility] Comment on above: Performed By: #### C EDGARDO #### [facility] [address] [place] [address] Dr. Saray Souza MCV 89.9 fL Normal 81.0-99.0 [facility] Comment on above: Performed By: #### C EDGARDO #### [facility] [address] [place] [address] Dr. Saray Souza METAMYELOCYTE # Normal [facility] Comment on above: Performed By: #### C EDGARDO #### [facility] [address] [place] [address] Dr. Saray Souza METAMYELOCYTE % Normal [facility] Comment on above: Performed By: #### C EDGARDO #### [facility] [address] [place] [address] Dr. Saray Souza MONOM# 2.06 103/ul Critically high 0.30-0.80 [facility] Comment on above: Performed By: #### C EDGARDO #### [facility] [address] [place] [address] Dr. Saray Souza MONOM% 8.0 % Normal 1.7-12.0 [facility] Comment on above: Performed By: #### C EDGARDO #### [facility] [address] [id number] Saray Souza MPV 8.8 fL Critically low 9.5-13.5 [facility] Comment on above: Performed By: #### C EDGARDO #### [facility] [address] [address] [address] Saray Souza MYELOCYTE # Normal [facility] Comment on above: Performed By: #### C EDGARDO #### [facility] [address] [address] [address] Saray Souza MYELOCYTE % Normal [facility] Comment on above: Performed By: #### C EDGARDO #### [facility] [address] [address] [address] Saray Souza NRBC Normal [facility] Comment on above: Performed By: #### C EDGARDO #### [facility] [address] [place] [address] Dr. Saray Souza PLT 397 103/ul Normal 150-450 [facility] Comment on above: Performed By: #### C EDGARDO #### [facility] [address] [place] [address] Dr. Saray Souza RBC 4.85 106/ul Normal 4.20-5.40 [facility] Comment on above: Performed By: #### C EDGARDO #### [facility] [address] [place] [address] Dr. Saray Souza RDW 12.0 % Normal 11.0-15.0 [facility] Comment on above: Performed By: #### C EDGARDO #### [facility] [address] [place] [address] Dr. Saray Souza SEG # 21.93 103/ul Critically high 1.40-6.50 [facility] Comment on above: Performed By: #### C EDGARDO #### [facility] [address] [place] [address] Dr. Saray Souza SEG % 85.0 % Critically high 43.0-75.0 [facility] Comment on above: Performed By: #### C EDGARDO #### [facility] [address] [place] [address] Dr. Saray Suoza WBC 25.8 103/ul Critically high 4.0-11.0 [facility] Comment on above: Performed By: #### C BCMAN #### [facility] [address] [place] [address] Dr. Saray Souza CULTURE URINEon 04-17-2023 CULTURE URINE Culture Observations : LORENZO TO FOLLOW. Isolate 1 Enterococcus faecalis 20,000 cfu/mL of Normal [facility] Comment on above: Performed By: #### C BC #### [facility] [address] [place] [address] Dr. Saray Souza ER URINE PROFILEon 3 Bilirubin Ql (U) Negative Normal NEGATIVE [facility] Comment on above: Performed By: #### C BC #### [facility] [address] [place] [address] Dr. Saray Souaz Clarity (U) CLEAR Normal CLEAR [facility] Comment on above: Performed By: #### C BC #### [facility] [address] [place] [address] Dr. Saray Souza Color (U) LT. YELLOW Normal YELLOW [facility] Comment on above: Performed By: #### C BC #### [facility] [address] [place] [address] Dr. Saray JHA A micrscopic examination will be performed if indicated. Normal [facility] Comment on above: Performed By: #### C BC #### [facility] [address] [place] [address] Dr. Saray Souza Glucose Ql (U) Negative Normal NEGATIVE [facility] Comment on above: Performed By: #### C BC #### [facility] [address] [place] [address] Dr. Saray Souza Hemoglobin Ql (U) Negative Normal NEGATIVE [facility] Comment on above: Performed By: #### C BC #### [facility] [address] [place] [address] Dr. Saray Souza Ketones Ql (U) Negative Normal NEGATIVE [facility] Comment on above: Performed By: #### C BC #### [facility] [address] [place] [address] Dr. Saray Souza LEUKOCYTES SMALL Abnormal NEGATIVE [facility] Comment on above: Performed By: #### C BC #### [facility] [address] [place] [address] Dr. Saray Souza Nitrite Ql (U) Negative Normal NEGATIVE [facility] Comment on above: Performed By: #### C BC #### [facility] [address] [place] [address] Dr. Saray Souza pH (U) 6.5 [pH] Normal 5-9 [facility] Comment on above: Performed By: #### C BC #### [facility] [address] [place] [address] Dr. Saray Souza SPEC GRAVITY 1.025 Normal 1.005-<=1.025 [facility] Comment on above: Performed By: #### C BC #### [facility] [address] [place] [address] Dr. Saray Souza UA PROTEIN Negative Normal NEGATIVE/ TRACE [facility] Comment on above: Performed By: #### C BC #### [facility] [address] [place] [address] Dr. Saray Souza UR MICRO IND INDICATED Normal [facility] Comment on above: Performed By: #### C BC #### [facility] [address] [place] [address] Dr. Saray Souza Urobilinogen Qn (U) 0.2 {Janine'U}/dL Normal 0.2 - 1. 0 [facility] Comment on above: Performed By: #### C BC #### [facility] [address] [place] [address] Dr. Saray Souza URon 04-17-2023 , QUAL Negative Normal NEGATIVE [facility] Comment on above: Performed By: #### C BC #### [facility] [address] [place] [address] Dr. Saray Souza PROF 14(COMP METB)on 023 Albumin [Mass/Vol] 3.0 g/dL Critically low 3.4-5.0 Th [facility] Comment on above: Performed By: #### I NSULIN #### [facility] [address] [address] [address] Saray Souza Albumin/Globulin [Mass ratio] 0.9 {ratio} Normal [facility] Comment on above: Performed By: #### I NSULIN #### [facility] [address] [address] [address] Saray Souza ALP [Catalytic activity/Vol] 54 U/L Normal 46-116 [facility] Comment on above: Performed By: #### I NSULIN #### [facility] [address] [address] [address] Saray Souza ALT [Catalytic activity/Vol] 27 U/L Normal 14-59 [facility] Comment on above: Performed By: #### I NSULIN #### [facility] [address] [place] [address] Dr. Saray Souza Anion gap [Moles/Vol] 12.9 mmol/L Normal [facility] Comment on above: Performed By: #### I NSULIN #### [facility] [address] [address] [address] Saray Souza AST [Catalytic activity/Vol] 12 U/L Critically low 15-37 [facility] Comment on above: Performed By: #### I NSULIN #### [facility] [address] [place] [address] Dr. Saray Souza Bilirubin [Mass/Vol] 0.3 mg/dL Normal 0.2-1.0 [facility] Comment on above: Performed By: #### I NSULIN #### [facility] [address] [address] [address] Saray Souza Calcium [Mass/Vol] 8.1 mg/dL Critically low 8.5-10.1 Th [facility] Comment on above: Performed By: #### I NSULIN #### [facility] [address] [address] [address] Saray Souza Chloride [Moles/Vol] 102 mmol/L Normal 98-107 [facility] Comment on above: Performed By: #### I NSULIN #### [facility] [address] [address] [address] Saray Souza CO2 [Moles/Vol] 26.2 mmol/L Normal 21.0-32.0 [facility] Comment on above: Performed By: #### I NSULIN #### [facility] [address] [address] [address] Saray Souza Creatinine [Mass/Vol] 0.87 mg/dL Normal 0.55-1.02 [facility] Comment on above: Performed By: #### I NSULIN #### [facility] [address] [place] [address] Dr. Saray Souza EGFR-AF LATVIAN >60 Normal >=60 [facility] Comment on above: Performed By: #### I NSULIN #### [facility] [address] [place] [address] Dr. Saray Souza EGFR-NON AF LATVIAN >60 Normal >=60 [facility] Comment on above: Performed By: #### I NSULIN #### [facility] [address] [place] [address] Dr. Saray Souza Globulin (S) [Mass/Vol] 3.2 g/dL Normal [facility] Comment on above: Performed By: #### I NSULIN #### [facility] [address] [place] [address] Dr. Saray Souza Glucose [Mass/Vol] 206 mg/dL Critically high 74-106 T [facility] Comment on above: Performed By: #### I NSULIN #### [facility] [address] [place] [address] Dr. Saray Souza Potassium [Moles/Vol] 4.1 mmol/L Normal 3.5-5.1 [facility] Comment on above: Performed By: #### I NSULIN #### [facility] [address] [place] [address] Dr. Saray Souza Protein [Mass/Vol] 6.2 g/dL Critically low 6.4-8.2 Th [facility] Comment on above: Performed By: #### I NSULIN #### [facility] [address] [address] [address] Saray Souza Sodium [Moles/Vol] 137 mmol/L Normal 136-145 [facility] Comment on above: Performed By: #### I NSULIN #### [facility] [address] [place] [address] Dr. Saray Souza Urea nitrogen [Mass/Vol] 19.0 mg/dL Critically high 7.0-18.0 [facility] Comment on above: Performed By: #### I NSULIN #### [facility] [address] [place] [address] Dr. Saray Souza Urea nitrogen/Creatinine [Mass ratio] 21.8 mg/mg Normal [facility] Comment on above: Performed By: #### I NSULIN #### [facility] [address] [place] [address] Dr. Saray Souza TSHon 04-17-2023 TSH 0.553 uIU/mL Normal 0.358-3.740 [facility] Comment on above: Performed By: #### I NSULIN #### [facility] [address] [place] [address] Dr. Saray Souza URINE MICROSCOPIC ONLYon BACTERIA TRACE Abnormal NONE SEEN [facility] Comment on above: Performed By: #### C BC #### [facility] [address] [place] [address] Dr. Saray Souza Bacteria identified Cx Nom (U) INDICATED Normal [facility] Comment on above: Performed By: #### C BC #### [facility] [address] [place] [address] Dr. Saray Souza CAST NONE SEEN Normal NONE SEEN [facility] Comment on above: Performed By: #### C BC #### [facility] [address] [place] [address] Dr. Saray Souza Crystals LM Nom (Urine sed) NONE SEEN Normal NONE SEEN [facility] Comment on above: Performed By: #### C BC #### [facility] [address] [place] [address] Dr. Saray Souza Epithelial cells LM Ql (Urine sed) RARE Normal NONE SEEN /RARE [facility] Comment on above: Performed By: #### C BC #### [facility] [address] [address] [address] Saray Souza MUCOUS NONE SEEN Normal NONE SEEN [facility] Comment on above: Performed By: #### C BC #### [facility] [address] [address] [address] Saray Souza RBC 0-2 Normal 0-2 [facility] Comment on above: Performed By: #### C BC #### [facility] [address] [address] [address] Saray Souza WBC 5-10 Abnormal NONE SEEN [facility] Comment on above: Performed By: #### C BC #### [facility] [address] [place] [address] Dr. Saray Souza XR CHEST 2 Von [...] CAROL RAMIREZ Date: 2023-04-17 10:45 Normal [facility] INSULINon 04-07-2023 Insulin 11.3 uIU/mL Normal 2.6-24.9 [facility] Comment on above: Performed By: #### I NSULIN #### [facility] [address] [place], [place] [address] Dr. Saray Souza US KIDNEYS BLADDERon 023 [...] NANDINI MAYER Date: 2023-04-04 08:22 Normal [facility] INSULINon 04-02-2023 Insulin 37.5 uIU/mL Critically high 2.6-24.9 [facility] Comment on above: Performed By: #### I NSULIN #### [facility] [address] [place] [address] Dr. Saray Souza CBC AUTO DIFFon 04-01-2023 BASO # 0.0 103/ul Normal 0.0-0.1 [facility] Comment on above: Performed By: #### C BC #### [facility] [address] [place] [address] Dr. Saray Souza Basophils/100 WBC (Bld) 0.5 % Normal 0.2-2.0 [facility] Comment on above: Performed By: #### C BC #### [facility] [address] [place] [address] Dr. Saray Souza EO # 0.2 103/ul Normal 0.0-0.7 [facility] Comment on above: Performed By: #### C BC #### [facility] [address] [place] [address] Dr. Saray Souza Eosinophils/100 WBC (Bld) 2.3 % Normal 0.9-7.0 [facility] Comment on above: Performed By: #### C BC #### [facility] [address] [place] [address] Dr. Saray Souza Erythrocyte distribution width (RBC) [Ratio] 11.9 % Normal 11.0-15.0 [facility] Comment on above: Performed By: #### C BC #### [facility] [address] [place] [address] Dr. Saray Souza Hematocrit (Bld) [Volume fraction] 42.2 % Normal 36.0-48.0 [facility] Comment on above: Performed By: #### C BC #### [facility] [address] [place] [address] Dr. Saray Souza Hemoglobin (Bld) [Mass/Vol] 13.7 g/dL Normal 12.0-16.0 [facility] Comment on above: Performed By: #### C BC #### [facility] [address] [place] [address] Dr. Saray Souza IG # 0.02 10e3/ul Normal 0.00-0.03 [facility] Comment on above: Performed By: #### C BC #### [facility] [address] [place] [address] Dr. Saray Souza IG % 0.3 % Normal 0.0-0.5 [facility] Comment on above: Performed By: #### C BC #### [facility] [address] [place] [address] Dr. Saray Souza LYMPH # 1.6 103/ul Normal 1.2-3.8 [facility] Comment on above: Performed By: #### C BC #### [facility] [address] [place] [address] Dr. Saray Souza Lymphocytes/100 WBC (Bld) 21.5 % Normal 20.5-60.0 [facility] Comment on above: Performed By: #### C BC #### [facility] [address] [place] [address] Dr. Saray Souza MANUAL DIFF REQ NO Normal [facility] Comment on above: Performed By: #### C BC #### [facility] [address] [place] [address] Dr. Saray Souza MCH (RBC) [Entitic mass] 30.0 pg Normal 26.7-34.0 [facility] Comment on above: Performed By: #### C BC #### [facility] [address] [place] [address] Dr. Saray Souza MCHC (RBC) [Mass/Vol] 32.5 g/dL Normal 29.9-35.2 [facility] Comment on above: Performed By: #### C BC #### [facility] [address] [place] [address] Dr. Saray Souza MCV (RBC) [Entitic vol] 92.5 fL Normal 81.0-99.0 [facility] Comment on above: Performed By: #### C BC #### [facility] [address] [place] [address] Dr. Saray Souza MONO # 0.7 103/ul Normal 0.3-0.8 [facility] Comment on above: Performed By: #### C BC #### [facility] [address] [place] [address] Dr. Saray Souza Monocytes/100 WBC (Bld) 9.6 % Normal 1.7-12.0 [facility] Comment on above: Performed By: #### C BC #### [facility] [address] [place] [address] Dr. Saray Souza NEUT # 5.0 103/ul Normal 1.4-6.5 [facility] Comment on above: Performed By: #### C BC #### [facility] [address] [place] [address] Dr. Saray Souza Neutrophils/100 WBC (Bld) 65.8 % Normal 43.0-75.0 [facility] Comment on above: Performed By: #### C BC #### [facility] [address] [place] [address] Dr. Saray Souza Platelet mean volume (Bld) [Entitic vol] 8.9 fL Critically low 9.5-13.5 [facility] Comment on above: Performed By: #### C BC #### [facility] [address] [place] [address] Dr. Saray Souza PLT 293 103/ul Normal 150-450 [facility] Comment on above: Performed By: #### C BC #### [facility] [address] [place] [address] Dr. Saray Souza RBC 4.56 106/ul Normal 4.20-5.40 [facility] Comment on above: Performed By: #### C BC #### [facility] [address] [place] [address] Dr. Saray Souza WBC 7.5 103/ul Normal 4.0-11.0 [facility] Comment on above: Performed By: #### C BC #### [facility] [address] [place] [address] Dr. Saray Souza CULTURE URINEon 04-01-2023 CULTURE URINE Culture Observations : MODERATE GROWTH OF MIXED GENITAL CARMELO. NO POTENTIAL PATHOGENS SEEN. Normal [facility] Comment on above: Performed By: #### C BC #### [facility] [address] [place] [address] Dr. Saray Souza FREE THYROXINE INDEX T7on FTI 2.51 Normal 1.30-4.50 [facility] Comment on above: Performed By: #### I NSULIN #### [facility] [address] [place] [address] Dr. Saray Souza T3U 33.0 % Normal 30.0-39.0 [facility] Comment on above: Performed By: #### I NSULIN #### [facility] [address] [place] [address] Dr. Saray Souza T4 [Mass/Vol] 7.60 ug/dL Normal 4.80-13.90 [facility] Comment on above: Performed By: #### I NSULIN #### [facility] [address] [place] [address] Dr. Saray Souza IRONon 04-01-2023 Iron [Mass/Vol] 151.0 ug/dL Normal 50.0-170.0 [facility] Comment on above: Performed By: #### C BCMAN #### [facility] [address] [place] [address] Dr. Saray Souza PROF 14(COMP METB)on 023 Albumin [Mass/Vol] 3.7 g/dL Normal 3.4-5.0 [facility] Comment on above: Performed By: #### C BCMAN #### [facility] [address] [place] [address] Dr. Saray Souza Albumin/Globulin [Mass ratio] 1.1 {ratio} Normal [facility] Comment on above: Performed By: #### C EDGARDO #### [facility] [address] [place] [address] Dr. Saray Souza ALP [Catalytic activity/Vol] 81 U/L Normal 46-116 [facility] Comment on above: Performed By: #### C EDGARDO #### [facility] [address] [place] [address] Dr. Saray Souza ALT [Catalytic activity/Vol] 33 U/L Normal 14-59 [facility] Comment on above: Performed By: #### C EDGARDO #### [facility] [address] [place] [address] Dr. Saray Souza Anion gap [Moles/Vol] 10.2 mmol/L Normal [facility] Comment on above: Performed By: #### C EDGARDO #### [facility] [address] [place] [address] Dr. Saray Souza AST [Catalytic activity/Vol] 22 U/L Normal 15-37 [facility] Comment on above: Performed By: #### C EDGARDO #### [facility] [address] [place] [address] Dr. Saray Souza Bilirubin [Mass/Vol] 0.3 mg/dL Normal 0.2-1.0 [facility] Comment on above: Performed By: #### C EDGARDO #### [facility] [address] [place] [address] Dr. Saray Souza Calcium [Mass/Vol] 8.6 mg/dL Normal 8.5-10.1 [facility] Comment on above: Performed By: #### C EDGARDO #### [facility] [address] [place] [address] Dr. Saray Souza Chloride [Moles/Vol] 105 mmol/L Normal 98-107 [facility] Comment on above: Performed By: #### C EDGARDO #### [facility] [address] [place] [address] Dr. Saray Souza CO2 [Moles/Vol] 30.4 mmol/L Normal 21.0-32.0 [facility] Comment on above: Performed By: #### C BCMAN #### [facility] [address] [address] [address] Saray Souza Creatinine [Mass/Vol] 0.72 mg/dL Normal 0.55-1.02 [facility] Comment on above: Performed By: #### C BCMAN #### [facility] [address] [address] [address] Saray Souza EGFR-AF LATVIAN >60 Normal >=60 [facility] Comment on above: Performed By: #### C BCMAN #### [facility] [address] [place] [address] Dr. Saray Souza EGFR-NON AF LATVIAN >60 Normal >=60 [facility] Comment on above: Performed By: #### C BCMAN #### [facility] [address] [place] [address] Dr. Saray Souza Globulin (S) [Mass/Vol] 3.5 g/dL Normal [facility] Comment on above: Performed By: #### C BCMAN #### [facility] [address] [place] [address] Dr. Saray Souza Glucose [Mass/Vol] 89 mg/dL Normal 74-106 [facility] Comment on above: Performed By: #### C BCMAN #### [facility] [address] [place] [address] Dr. Saray Souza Potassium [Moles/Vol] 3.6 mmol/L Normal 3.5-5.1 [facility] Comment on above: Performed By: #### C BCMAN #### [facility] [address] [place] [address] Dr. Saray Souza Protein [Mass/Vol] 7.2 g/dL Normal 6.4-8.2 [facility] Comment on above: Performed By: #### C BCMAN #### [facility] [address] [place] [address] Dr. Saray Souza Sodium [Moles/Vol] 142 mmol/L Normal 136-145 [facility] Comment on above: Performed By: #### C BCMAN #### [facility] [address] [place] [address] Dr. Saray Souza Urea nitrogen [Mass/Vol] 12.0 mg/dL Normal 7.0-18.0 [facility] Comment on above: Performed By: #### C BCMAN #### [facility] [address] [place] [address] Dr. Saray Souza Urea nitrogen/Creatinine [Mass ratio] 16.7 mg/mg Normal [facility] Comment on above: Performed By: #### C EDGARDO #### [facility] [address] [place] [address] Dr. Saray Souza TSHon 04-01-2023 TSH 1.708 uIU/mL Normal 0.358-3.740 [facility] Comment on above: Performed By: #### I NSULIN #### [facility] [address] [place] [address] Dr. Saray Souza UA RANDOM W/MICROSCOPICon BACTERIA SMALL Abnormal NONE SEEN [facility] Comment on above: Performed By: #### I NSULIN #### [facility] [address] [place] [address] Dr. Saray Souza Bilirubin Ql (U) Negative Normal NEGATIVE [facility] Comment on above: Performed By: #### I NSULIN #### [facility] [address] [place] [address] Dr. Saray Souza CAST NONE SEEN Normal NONE SEEN [facility] Comment on above: Performed By: #### I NSULIN #### [facility] [address] [place] [address] Dr. Saray Souza Clarity (U) CLEAR Normal CLEAR [facility] Comment on above: Performed By: #### I NSULIN #### [facility] [address] [place] [address] Dr. Saray Souza Color (U) YELLOW Normal YELLOW [facility] Comment on above: Performed By: #### I NSULIN #### [facility] [address] [place] [address] Dr. Saray Souza Crystals LM Nom (Urine sed) NONE SEEN Normal NONE SEEN [facility] Comment on above: Performed By: #### I NSULIN #### [facility] [address] [place] [address] Dr. Saray Souza Epithelial cells LM Ql (Urine sed) FEW Abnormal NONE SEEN /RARE [facility] Comment on above: Performed By: #### I NSULIN #### [facility] [address] [place] [address] Dr. Saray Souza Glucose Ql (U) Negative Normal NEGATIVE [facility] Comment on above: Performed By: #### I NSULIN #### [facility] [address] [place] [address] Dr. Saray Souza Hemoglobin Ql (U) Negative Normal NEGATIVE [facility] Comment on above: Performed By: #### I NSULIN #### [facility] [address] [place] [address] Dr. Saray Souza Ketones Ql (U) TRACE Abnormal NEGATIVE [facility] Comment on above: Performed By: #### I NSULIN #### [facility] [address] [place] [address] Dr. Saray Souza LEUKOCYTES SMALL Abnormal NEGATIVE [facility] Comment on above: Performed By: #### I NSULIN #### [facility] [address] [place] [address] Dr. Saray Souza MUCOUS NONE SEEN Normal NONE SEEN [facility] Comment on above: Performed By: #### I NSULIN #### [facility] [address] [place] [address] Dr. Saray Souza Nitrite Ql (U) Negative Normal NEGATIVE [facility] Comment on above: Performed By: #### I NSULIN #### [facility] [address] [place] [address] Dr. Saray Souza pH (U) 5.5 [pH] Normal 5-9 [facility] Comment on above: Performed By: #### I NSULIN #### [facility] [address] [place] [address] Dr. Saray Souza RBC 0-2 Normal 0-2 [facility] Comment on above: Performed By: #### I NSULIN #### [facility] [address] [address] [address] Saray Souza SPEC GRAVITY >=1.030 Abnormal 1.005-<=1.025 [facility] Comment on above: Performed By: #### I NSULIN #### [facility] [address] [address] [address] Saray Souza UA PROTEIN Negative Normal NEGATIVE/ TRACE [facility] Comment on above: Performed By: #### I NSULIN #### [facility] [address] [address] [address] Saray Souza Urobilinogen Qn (U) 0.2 {Janine'U}/dL Normal 0.2 - 1. 0 [facility] Comment on above: Performed By: #### I NSULIN #### [facility] [address] [place] [address] Dr. Saray Souza WBC 5-10 Abnormal NONE SEEN [facility] Comment on above: Performed By: #### I NSULIN #### [facility] [address] [place] [address] Dr. Saray Souza INSULINon 02-14-2023 Insulin 12.8 uIU/mL Normal 2.6-24.9 [facility] Comment on above: Performed By: #### C BC #### [facility] [address] [place] [address] Dr. Saray Souza CBC AUTO DIFFon 02-13-2023 BASO # 0.0 103/ul Normal 0.0-0.1 [facility] Comment on above: Performed By: #### C BC #### [facility] [address] [place] [address] Dr. Saray Souza Basophils/100 WBC (Bld) 0.4 % Normal 0.2-2.0 [facility] Comment on above: Performed By: #### C BC #### [facility] [address] [place] [address] Dr. Saray Souza EO # 0.1 103/ul Normal 0.0-0.7 [facility] Comment on above: Performed By: #### C BC #### [facility] [address] [place] [address] Dr. Saray Souza Eosinophils/100 WBC (Bld) 1.6 % Normal 0.9-7.0 [facility] Comment on above: Performed By: #### C BC #### [facility] [address] [place] [address] Dr. Saray Souza Erythrocyte distribution width (RBC) [Ratio] 11.9 % Normal 11.0-15.0 [facility] Comment on above: Performed By: #### C BC #### [facility] [address] [place] [address] Dr. Saray Souza Hematocrit (Bld) [Volume fraction] 41.9 % Normal 36.0-48.0 [facility] Comment on above: Performed By: #### C BC #### [facility] [address] [place] [address] Dr. Saray Souza Hemoglobin (Bld) [Mass/Vol] 13.7 g/dL Normal 12.0-16.0 [facility] Comment on above: Performed By: #### C BC #### [facility] [address] [place] [address] Dr. Saray Souza IG # 0.02 10e3/ul Normal 0.00-0.03 [facility] Comment on above: Performed By: #### C BC #### [facility] [address] [place] [address] Dr. Saray Souza IG % 0.3 % Normal 0.0-0.5 [facility] Comment on above: Performed By: #### C BC #### [facility] [address] [place] [address] Dr. Saray Souza LYMPH # 1.4 103/ul Normal 1.2-3.8 [facility] Comment on above: Performed By: #### C BC #### [facility] [address] [place] [address] Dr. Saray Souza Lymphocytes/100 WBC (Bld) 18.6 % Critically low 20.5-60.0 [facility] Comment on above: Performed By: #### C BC #### [facility] [address] [place] [address] Dr. Saray Souza MANUAL DIFF REQ NO Normal [facility] Comment on above: Performed By: #### C BC #### [facility] [address] [place] [address] Dr. Saray Souza MCH (RBC) [Entitic mass] 29.9 pg Normal 26.7-34.0 [facility] Comment on above: Performed By: #### C BC #### [facility] [address] [place] [address] Dr. Saray Souza MCHC (RBC) [Mass/Vol] 32.7 g/dL Normal 29.9-35.2 [facility] Comment on above: Performed By: #### C BC #### [facility] [address] [place] [address] Dr. Saray Souza MCV (RBC) [Entitic vol] 91.5 fL Normal 81.0-99.0 [facility] Comment on above: Performed By: #### C BC #### [facility] [address] [place] [address] Dr. Saray Souza MONO # 0.6 103/ul Normal 0.3-0.8 [facility] Comment on above: Performed By: #### C BC #### [facility] [address] [place] [address] Dr. Saray Souza Monocytes/100 WBC (Bld) 8.3 % Normal 1.7-12.0 [facility] Comment on above: Performed By: #### C BC #### [facility] [address] [place] [address] Dr. Saray Souza NEUT # 5.5 103/ul Normal 1.4-6.5 [facility] Comment on above: Performed By: #### C BC #### [facility] [address] [place] [address] Dr. Saray Souza Neutrophils/100 WBC (Bld) 70.8 % Normal 43.0-75.0 [facility] Comment on above: Performed By: #### C BC #### [facility] [address] [address] [address] Saray Souza Platelet mean volume (Bld) [Entitic vol] 9.0 fL Critically low 9.5-13.5 [facility] Comment on above: Performed By: #### C BC #### [facility] [address] [address] [address] Saray Souza PLT 271 103/ul Normal 150-450 [facility] Comment on above: Performed By: #### C BC #### [facility] [address] [address] [address] Saray Souza RBC 4.58 106/ul Normal 4.20-5.40 [facility] Comment on above: Performed By: #### C BC #### [facility] [address] [place] [address] Dr. Saray Souza WBC 7.7 103/ul Normal 4.0-11.0 [facility] Comment on above: Performed By: #### C BC #### [facility] [address] [place] [address] Dr. Saray Souza FREE THYROXINE INDEX T7on FTI 2.56 Normal 1.30-4.50 [facility] Comment on above: Performed By: #### I NSULIN #### [facility] [address] [place] [address] Dr. Saray Souza T3U 36.0 % Normal 30.0-39.0 [facility] Comment on above: Performed By: #### I NSULIN #### [facility] [address] [place] [address] Dr. Saray Souza T4 [Mass/Vol] 7.10 ug/dL Normal 4.80-13.90 [facility] Comment on above: Performed By: #### I NSULIN #### [facility] [address] [place] [address] Dr. Saray Souza IRONon 02-13-2023 Iron [Mass/Vol] 130.0 ug/dL Normal 50.0-170.0 [facility] Comment on above: Performed By: #### C BCMAN #### [facility] [address] [address] [address] Saray Souza PROF 14(COMP METB)on 023 Albumin [Mass/Vol] 3.8 g/dL Normal 3.4-5.0 [facility] Comment on above: Performed By: #### I NSULIN #### [facility] [address] [place] [address] Dr. Saray Souza Albumin/Globulin [Mass ratio] 1.2 {ratio} Normal [facility] Comment on above: Performed By: #### I NSULIN #### [facility] [address] [place] [address] Dr. Saray Souza ALP [Catalytic activity/Vol] 82 U/L Normal 46-116 [facility] Comment on above: Performed By: #### I NSULIN #### [facility] [address] [place] [address] Dr. Saray Souza ALT [Catalytic activity/Vol] 25 U/L Normal 14-59 [facility] Comment on above: Performed By: #### I NSULIN #### [facility] [address] [place] [address] Dr. Saray Souza Anion gap [Moles/Vol] 12.7 mmol/L Normal [facility] Comment on above: Performed By: #### I NSULIN #### [facility] [address] [place] [address] Dr. Saray Souza AST [Catalytic activity/Vol] 19 U/L Normal 15-37 [facility] Comment on above: Performed By: #### I NSULIN #### [facility] [address] [place] [address] Dr. Saray Souza Bilirubin [Mass/Vol] 0.3 mg/dL Normal 0.2-1.0 [facility] Comment on above: Performed By: #### I NSULIN #### [facility] [address] [place] [address] Dr. Saray Souza Calcium [Mass/Vol] 8.8 mg/dL Normal 8.5-10.1 [facility] Comment on above: Performed By: #### I NSULIN #### [facility] [address] [address] [address] Saray Souza Chloride [Moles/Vol] 101 mmol/L Normal 98-107 [facility] Comment on above: Performed By: #### I NSULIN #### [facility] [address] [address] [address] Saray Souza CO2 [Moles/Vol] 27.3 mmol/L Normal 21.0-32.0 [facility] Comment on above: Performed By: #### I NSULIN #### [facility] [address] [address] [address] Saray Souza Creatinine [Mass/Vol] 0.69 mg/dL Normal 0.55-1.02 [facility] Comment on above: Performed By: #### I NSULIN #### [facility] [address] [place] [address] Dr. Saray Souza EGFR-AF LATVIAN >60 Normal >=60 [facility] Comment on above: Performed By: #### I NSULIN #### [facility] [address] [address] [address] Saray Souza EGFR-NON AF LATVIAN >60 Normal >=60 [facility] Comment on above: Performed By: #### I NSULIN #### [facility] [address] [address] [address] Saray Souza Globulin (S) [Mass/Vol] 3.3 g/dL Normal [facility] Comment on above: Performed By: #### I NSULIN #### [facility] [address] [address] [address] Saray Souza Glucose [Mass/Vol] 83 mg/dL Normal 74-106 [facility] Comment on above: Performed By: #### I NSULIN #### [facility] [address] [address] [address] Saray Souza Potassium [Moles/Vol] 4.0 mmol/L Normal 3.5-5.1 [facility] Comment on above: Performed By: #### I NSULIN #### [facility] [address] [address] [address] Saray Souza Protein [Mass/Vol] 7.1 g/dL Normal 6.4-8.2 [facility] Comment on above: Performed By: #### I NSULIN #### [facility] [address] [place] [address] Dr. Saray Souza Sodium [Moles/Vol] 137 mmol/L Normal 136-145 [facility] Comment on above: Performed By: #### I NSULIN #### [facility] [address] [place] [address] Dr. Saray Souza Urea nitrogen [Mass/Vol] 10.0 mg/dL Normal 7.0-18.0 [facility] Comment on above: Performed By: #### I NSULIN #### [facility] [address] [place] [address] Dr. Saray Souza Urea nitrogen/Creatinine [Mass ratio] 14.5 mg/mg Normal [facility] Comment on above: Performed By: #### I NSULIN #### [facility] [address] [place] [address] Dr. Saray Souza TSHon 02-13-2023 TSH 2.745 uIU/mL Normal 0.358-3.740 [facility] Comment on above: Performed By: #### I NSULIN #### [facility] [address] [place] [address] Dr. Saray Souza AMYLASEon 02-04-2023 Amylase [Catalytic activity/Vol] 45 U/L Normal 25-115 [facility] Comment on above: Performed By: #### T SH, CMP, HSTROPN, LIPA, LINDA #### [facility] [address] [place] [address] Dr. Saray Souza CBC AUTO DIFFon 02-04-2023 BASO # 0.0 103/ul Normal 0.0-0.1 [facility] Comment on above: Performed By: #### C BC #### [facility] [address] [place] [address] Dr. Saray Souza Basophils/100 WBC (Bld) 0.4 % Normal 0.2-2.0 [facility] Comment on above: Performed By: #### C BC #### [facility] [address] [place] [address] Dr. Saray Souza EO # 0.1 103/ul Normal 0.0-0.7 [facility] Comment on above: Performed By: #### C BC #### [facility] [address] [place] [address] Dr. Saray Souza Eosinophils/100 WBC (Bld) 1.7 % Normal 0.9-7.0 [facility] Comment on above: Performed By: #### C BC #### [facility] [address] [place] [address] Dr. Saray Souza Erythrocyte distribution width (RBC) [Ratio] 12.0 % Normal 11.0-15.0 [facility] Comment on above: Performed By: #### C BC #### [facility] [address] [place] [address] Dr. Saray Souza Hematocrit (Bld) [Volume fraction] 42.3 % Normal 36.0-48.0 [facility] Comment on above: Performed By: #### C BC #### [facility] [address] [place] [address] Dr. Saray Souza Hemoglobin (Bld) [Mass/Vol] 13.9 g/dL Normal 12.0-16.0 [facility] Comment on above: Performed By: #### C BC #### [facility] [address] [place] [address] Dr. Saray Souza IG # 0.03 10e3/ul Normal 0.00-0.03 [facility] Comment on above: Performed By: #### C BC #### [facility] [address] [place] [address] Dr. Saray Souza IG % 0.4 % Normal 0.0-0.5 [facility] Comment on above: Performed By: #### C BC #### [facility] [address] [place] [address] Dr. Saray Souza LYMPH # 1.5 103/ul Normal 1.2-3.8 [facility] Comment on above: Performed By: #### C BC #### [facility] [address] [place] [address] Dr. Saray Souza Lymphocytes/100 WBC (Bld) 20.4 % Critically low 20.5-60.0 [facility] Comment on above: Performed By: #### C BC #### [facility] [address] [place] [address] Dr. Saray Souza MANUAL DIFF REQ NO Normal [facility] Comment on above: Performed By: #### C BC #### [facility] [address] [place] [address] Dr. Saray Souza MCH (RBC) [Entitic mass] 30.0 pg Normal 26.7-34.0 [facility] Comment on above: Performed By: #### C BC #### [facility] [address] [place] [address] Dr. Saray Souza MCHC (RBC) [Mass/Vol] 32.9 g/dL Normal 29.9-35.2 [facility] Comment on above: Performed By: #### C BC #### [facility] [address] [place] [address] Dr. Saray Souza MCV (RBC) [Entitic vol] 91.2 fL Normal 81.0-99.0 [facility] Comment on above: Performed By: #### C BC #### [facility] [address] [place] [address] Dr. Saray Souza MONO # 0.6 103/ul Normal 0.3-0.8 [facility] Comment on above: Performed By: #### C BC #### [facility] [address] [place] [address] Dr. Saray Souza Monocytes/100 WBC (Bld) 7.7 % Normal 1.7-12.0 [facility] Comment on above: Performed By: #### C BC #### [facility] [address] [place] [address] Dr. Saray Souza NEUT # 5.2 103/ul Normal 1.4-6.5 [facility] Comment on above: Performed By: #### C BC #### [facility] [address] [address] [address] Saray Souza Neutrophils/100 WBC (Bld) 69.4 % Normal 43.0-75.0 [facility] Comment on above: Performed By: #### C BC #### [facility] [address] [place] [address] Dr. Saray Souza Platelet mean volume (Bld) [Entitic vol] 9.0 fL Critically low 9.5-13.5 [facility] Comment on above: Performed By: #### C BC #### [facility] [address] [place] [address] Dr. Saray Souza PLT 292 103/ul Normal 150-450 [facility] Comment on above: Performed By: #### C BC #### [facility] [address] [place] [address] Dr. Saray Souza RBC 4.64 106/ul Normal 4.20-5.40 [facility] Comment on above: Performed By: #### C BC #### [facility] [address] [place] [address] Dr. Saray Souza WBC 7.5 103/ul Normal 4.0-11.0 [facility] Comment on above: Performed By: #### C BC #### [facility] [address] [place] [address] Dr. Saray Souza CULTURE URINEon 02-04-2023 CULTURE URINE Culture Observations : LIGHT GROWTH OF MIXED GENITAL CARMELO. NO POTENTIAL PATHOGENS SEEN. Normal [facility] Comment on above: Performed By: #### C BC #### [facility] [address] [place] [address] Dr. Saray Souza ER URINE PROFILEon 3 Bilirubin Ql (U) Negative Normal NEGATIVE The [facility] Comment on above: Performed By: #### C BC #### [facility] [address] [place] [address] Dr. Saray Souza Clarity (U) CLEAR Normal CLEAR [facility] Comment on above: Performed By: #### C BC #### [facility] [address] [place] [address] Dr. Saray Souza Color (U) LT. YELLOW Normal YELLOW [facility] Comment on above: Performed By: #### C BC #### [facility] [address] [place] [address] Dr. Saray JHA A micrscopic examination will be performed if indicated. Normal [facility] Comment on above: Performed By: #### C BC #### [facility] [address] [place] [address] Dr. Saray Souza Glucose Ql (U) Negative Normal NEGATIVE [facility] Comment on above: Performed By: #### C BC #### [facility] [address] [place] [address] Dr. Saray Souza Hemoglobin Ql (U) Negative Normal NEGATIVE [facility] Comment on above: Performed By: #### C BC #### [facility] [address] [place] [address] Dr. Saray Souza Ketones Ql (U) Negative Normal NEGATIVE [facility] Comment on above: Performed By: #### C BC #### [facility] [address] [place] [address] Dr. Saray Souza LEUKOCYTES MODERATE Abnormal NEGATIVE [facility] Comment on above: Performed By: #### C BC #### [facility] [address] [place] [address] Dr. Saray Souza Nitrite Ql (U) Negative Normal NEGATIVE [facility] Comment on above: Performed By: #### C BC #### [facility] [address] [place] [address] Dr. Saray Souza pH (U) 5.5 [pH] Normal 5-9 [facility] Comment on above: Performed By: #### C BC #### [facility] [address] [place] [address] Dr. Saray Souza SPEC GRAVITY >=1.030 Abnormal 1.005-<=1.025 [facility] Comment on above: Performed By: #### C BC #### [facility] [address] [place] [address] Dr. Saray Souza UA PROTEIN Negative Normal NEGATIVE/ TRACE [facility] Comment on above: Performed By: #### C BC #### [facility] [address] [place] [address] Dr. Saray Souza UR MICRO IND INDICATED Normal [facility] Comment on above: Performed By: #### C BC #### [facility] [address] [place] [address] Dr. Saray Souza Urobilinogen Qn (U) 0.2 {Janine'U}/dL Normal 0.2 - 1. 0 [facility] Comment on above: Performed By: #### C BC #### [facility] [address] [place] [address] Dr. Saray Souza LIPASEon 02-04-2023 Lipase [Catalytic activity/Vol] 97.0 U/L Normal 73.0-393.0 [facility] Comment on above: Performed By: #### T SH, CMP, HSTROPN, LIPA, LINDA #### [facility] [address] [place] [address] Dr. Saray Souza URon 02-04-2023 , QUAL Negative Normal NEGATIVE [facility] Comment on above: Performed By: #### C BC #### [facility] [address] [place] [address] Dr. Saray Souza PROF 14(COMP METB)on 023 Albumin [Mass/Vol] 3.5 g/dL Normal 3.4-5.0 [facility] Comment on above: Performed By: #### T SH, CMP, HSTROPN, LIPA, LINDA #### [facility] [address] [place] [address] Dr. Saray Souza Albumin/Globulin [Mass ratio] 1.2 {ratio} Normal [facility] Comment on above: Performed By: #### T SH, CMP, HSTROPN, LIPA, LINDA #### [facility] [address] [place] [address] Dr. Saray Souza ALP [Catalytic activity/Vol] 78 U/L Normal 46-116 [facility] Comment on above: Performed By: #### T SH, CMP, HSTROPN, LIPA, LINDA #### [facility] [address] [place] [address] Dr. Saray Souza ALT [Catalytic activity/Vol] 24 U/L Normal 14-59 [facility] Comment on above: Performed By: #### T SH, CMP, HSTROPN, LIPA, LINDA #### [facility] [address] [place] [address] Dr. Saray Souza Anion gap [Moles/Vol] 7.9 mmol/L Normal [facility] Comment on above: Performed By: #### T SH, CMP, HSTROPN, LIPA, LINDA #### [facility] [address] [place] [address] Dr. Saray Souza AST [Catalytic activity/Vol] 16 U/L Normal 15-37 [facility] Comment on above: Performed By: #### T SH, CMP, HSTROPN, LIPA, LINDA #### [facility] [address] [place] [address] Dr. Saray Souza Bilirubin [Mass/Vol] 0.3 mg/dL Normal 0.2-1.0 [facility] Comment on above: Performed By: #### T SH, CMP, HSTROPN, LIPA, LINDA #### [facility] [address] [place] [address] Dr. Saray Souza Calcium [Mass/Vol] 8.6 mg/dL Normal 8.5-10.1 [facility] Comment on above: Performed By: #### T SH, CMP, HSTROPN, LIPA, LINDA #### [facility] [address] [place] [address] Dr. Saray Souza Chloride [Moles/Vol] 105 mmol/L Normal 98-107 [facility] Comment on above: Performed By: #### T SH, CMP, HSTROPN, LIPA, LINDA #### [facility] [address] [place] [address] Dr. Saray Souza CO2 [Moles/Vol] 28.9 mmol/L Normal 21.0-32.0 [facility] Comment on above: Performed By: #### T SH, CMP, HSTROPN, LIPA, LINDA #### [facility] [address] [place] [address] Dr. Saray Souza Creatinine [Mass/Vol] 0.67 mg/dL Normal 0.55-1.02 [facility] Comment on above: Performed By: #### T SH, CMP, HSTROPN, LIPA, LINDA #### [facility] [address] [place] [address] Dr. Sraay Souza EGFR-AF LATVIAN >60 Normal >=60 [facility] Comment on above: Performed By: #### T SH, CMP, HSTROPN, LIPA, LINDA #### [facility] [address] [place] [address] Dr. Saray Souza EGFR-NON AF LATVIAN >60 Normal >=60 [facility] Comment on above: Performed By: #### T SH, CMP, HSTROPN, LIPA, LINDA #### [facility] [address] [place] [address] Dr. Saray Souza Globulin (S) [Mass/Vol] 3.0 g/dL Normal [facility] Comment on above: Performed By: #### T SH, CMP, HSTROPN, LIPA, LINDA #### [facility] [address] [place] [address] Dr. Saray Souza Glucose [Mass/Vol] 97 mg/dL Normal 74-106 [facility] Comment on above: Performed By: #### T SH, CMP, HSTROPN, LIPA, LINDA #### [facility] [address] [place] [address] Dr. Saray Souza Potassium [Moles/Vol] 3.8 mmol/L Normal 3.5-5.1 [facility] Comment on above: Performed By: #### T SH, CMP, HSTROPN, LIPA, LINDA #### [facility] [address] [place] [address] Dr. Saray Souza Protein [Mass/Vol] 6.5 g/dL Normal 6.4-8.2 [facility] Comment on above: Performed By: #### T SH, CMP, HSTROPN, LIPA, LINDA #### [facility] [address] [place] [address] Dr. Saray Souza Sodium [Moles/Vol] 138 mmol/L Normal 136-145 [facility] Comment on above: Performed By: #### T SH, CMP, HSTROPN, LIPA, LINDA #### [facility] [address] [place] [address] Dr. Saray Souza Urea nitrogen [Mass/Vol] 13.0 mg/dL Normal 7.0-18.0 [facility] Comment on above: Performed By: #### T SH, CMP, HSTROPN, LIPA, LINDA #### [facility] [address] [place] [address] Dr. Saray Souza Urea nitrogen/Creatinine [Mass ratio] 19.4 mg/mg Normal [facility] Comment on above: Performed By: #### T SH, CMP, HSTROPN, LIPA, LINDA #### [facility] [address] [place] [address] Dr. Saray Souza TROPONIN, HIGH SENSITIVITYon 02-04-2023 HSTROP 4.0 pg/mL Normal 4.0-51.3 [facility] Comment on above: Result Comment: CUT- OFF POINTS HAVE BEEN ESTABLISHED BASED ON THE FOURTH UNIVERSAL DEFINITIONS OF MYOCARDIAL INFARCTION. THE UPPER REFERENCE LIMIT (URL) OF TROPONIN, DEFINED THE 99TH PERCENTILE OF cTnI DISTRIBUTION IN A REFERENCE POPULATION, HAS BEEN CONFIRMED THE DECISION THRESHOLD FOR IN DIAGNOSIS. Performed By: #### T SH, CMP, HSTROPN, LIPA, LINDA #### [facility] [address] [place] [address] Dr. Saray Souza TSHon 02-04-2023 TSH 2.478 uIU/mL Normal 0.358-3.740 [facility] Comment on above: Performed By: #### T SH, CMP, HSTROPN, LIPA, LINDA #### [facility] [address] [place] [address] Dr. Saray Souza URINE MICROSCOPIC ONLYon BACTERIA MODERATE Abnormal NONE SEEN [facility] Comment on above: Performed By: #### C BC #### [facility] [address] [place] [address] Dr. Saray Souza Bacteria identified Cx Nom (U) INDICATED Normal [facility] Comment on above: Performed By: #### C BC #### [facility] [address] [place] [address] Dr. Sarya Souza CAST NONE SEEN Normal NONE SEEN [facility] Comment on above: Performed By: #### C BC #### [facility] [address] [place] [address] Dr. Saray Souza Crystals LM Nom (Urine sed) NONE SEEN Normal NONE SEEN [facility] Comment on above: Performed By: #### C BC #### [facility] [address] [place] [address] Dr. Saray Souza Epithelial cells LM Ql (Urine sed) MODERATE Abnormal NONE SEEN /RARE [facility] Comment on above: Performed By: #### C BC #### [facility] [address] [place] [address] Dr. Saray Souza MUCOUS NONE SEEN Normal NONE SEEN [facility] Comment on above: Performed By: #### C BC #### [facility] [address] [place] [address] Dr. Saray Souza RBC 5-10 Abnormal 0-2 [facility] Comment on above: Performed By: #### C BC #### [facility] [address] [place] [address] Dr. Saray Souza WBC 10-20 Abnormal NONE SEEN [facility] Comment on above: Performed By: #### C BC #### [facility] [address] [place] [address] Dr. Saray Souza Covid-19 PCR ([facility])on 09-24 SARS-CoV-2 (COVID-19) RNA DAYDAY+probe Ql (Unsp spec) Not detected Normal NOT DETECTED [facility] Comment on above: Result Comment: When diagnostic [...] for this test is supported by the Nitric Acid Concentrator Operator of Health and Human Service's declaration that [...] used). Performed By: #### C BC #### [facility] [address] [place] [address] Dr. Saray Souza INFLUENZA A AND B [facility] 10-20 [facility] SEE BELOW Normal [facility] Comment on above: Result Comment: Nega tive for Flu A protein angiten. Infection due to Flu A cannot be ruled out. Flu A angiten in the sample may be below the detection limit of the test. Performed By: #### C BC #### [facility] [address] [place] [address] Dr. Sar[facility] Normal [facility] Comment on above: Result Comment: Nega tive for Flu B protein antigen. Infection due to Flu B cannot be ruled out. Flu B antigen in the sample may be below the detection limit of the test. Performed By: #### C BC #### [facility] [address] [place] [address] Dr. Saray Souza INFLUENZA A AG Negative Normal NEGATIVE SEE COMMENT [facility] Comment on above: Performed By: #### C BC #### [facility] [address] [place] [address] Dr. Saray Souza INFLUENZA B AG Negative Normal NEGATIVE SEE COMMENT [facility] Comment on above: Performed By: #### C BC #### [facility] [address] [place] [address] Dr. Saray Souza INTERNAL CONTROLS Within Normal Limits Normal Wi thin Normal Limits [facility] Comment on above: Performed By: #### C BC #### [facility] [address] [place] [id number] [address] Saray Souza STREPT SCREENon 10-20-2022 STREP SCREEN A Positive Abnormal NEGATIVE [facility] Comment on above: Performed By: #### C #### [facility] [id number] Saray Souza XR SHOULDER RT INJon [...] ADRIANA MENDEZ Date: 2022-07-18 17:05 Normal [facility] MRI SHOULDER RT WO CONon MRI SHOULDER [...] by: ADRIANA MENDEZ Date: 2022-07-10 10:10 Normal [facility] XR ARTHRO SHLD RTon 07-10-20 [...] by: ADRIANA MENDEZ Date: 2022-07-10 10:01 Normal [facility] No Panel Informationon 03-18 Right Eye Reliability was good. Findings include normal observations. Left Eye Reliability was good. Findings include normal observations. Notes I personally reviewed the visual zaldivar performed by this patient on 03/18/22. The visual zaldivar are normal OU with good fixation. Francisco Ayers MD [facility] Radiology Study observation (narrative) [facility] Progress Noteson 03-18-2022 Core Stripper Authentication Interface Message Text Referred by Retina [...] Hair) regarding headaches-- will fax information to [phone] - Offered referral to neurology, patient prefers [...] her PCP. Francisco Ayers MD Normal The [facility] Cytologyon 12-20-2018 Cytology (NOTE) [id number] [facility] ANATOMIC PATHOLOGY [address] [place] [address]. 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 - Endocervical/transform ation zone component present. - Scant cellularity; predominantly blood. Descriptive Diagnosis: Negative for intraepithelial lesion or malignancy. Environmental Health Safety Manager: KANCHAN Mendoza(ASCP) Electronically Signed Out donna/01/03/2019 [facility] Comment on above: Performed By: #### P PPVP #### [address] [address] Mechanical Press Operator: Vega Wilkerson MD Vital Signs Date Time Vital Sign Value Performing Clinician Facility 2024 09:04-0400 Blood Pressure Location JANNETH HOPSON [facility] 2024 09:04-0400 Diastolic blood pressure 82 mm[Hg] JANNETH HOPSON [facility] 2024 09:04-0400 Heart rate 74 /min JANNETH HOPSON [facility] 2024 09:04-0400 Respiratory rate 16 /min JANNETH EMILIANA [facility] 2024 09:04-0400 Systolic blood pressure 125 mm[Hg] JANNETH HOPSON [facility] 03-08-2024 14:09-0400 Blood Pressure Location Yonis CARNEY [facility] [place] 03-08-2024 14:09-0400 Diastolic blood pressure 84 mm[Hg] Yonis NILL [facility] [place] 03-08-2024 14:09-0400 Heart rate 76 /min Yonis NILL [facility] [place] 03-08-2024 14:09-0400 Respiratory rate 16 /min Yonis NILL [facility] [place] 03-08-2024 14:09-0400 Systolic blood pressure 118 mm[Hg] Yonis NILL [facility] [place] 01-19-2024 09:34-0500 Blood Pressure Location JANNETH MADRIGALRY [facility] 01-19-2024 09:34-0500 Diastolic blood pressure 84 mm[Hg] JANNETH EMILIANA [facility] 01-19-2024 09:34-0500 Heart rate 80 /min JANNETH EMILIANA [facility] 01-19-2024 09:34-0500 Respiratory rate 16 /min JANNETH EMILIANA [facility] 01-19-2024 09:34-0500 Systolic blood pressure 132 mm[Hg] JANNETH EMILIANA [facility] 12-02-2023 08:40-0500 Body height 180.34 cm Taniya Mary Grace [facility] 12-02-2023 08:40-0500 Body mass index (BMI) [Ratio] 45.1 kg/m2 Taniya Mary Grace [facility] 12-02-2023 08:40-0500 Body temperature 97.5 [degF] Taniya Mary Grace [facility] 12-02-2023 08:40-0500 Body weight 146.69 kg Taniya Mary Grace [facility] 12-02-2023 08:40-0500 Diastolic blood pressure 83 mm[Hg] Taniya Mary Grace [facility] 12-02-2023 08:40-0500 Respiratory rate 18 /min Taniya Mary Grace [facility] 12-02-2023 08:40-0500 SaO2% (BldA) [Mass fraction] 98 % Taniya Mary Grace [facility] 12-02-2023 08:40-0500 Systolic blood pressure 136 mm[Hg] Taniya Mary Grace [facility] 11-19-2021 15:30-0500 Body height 180.34 cm Nandini Pantoja [facility] 11-19-2021 15:30-0500 Body mass index (BMI) [Ratio] 41.56 kg/m2 Nandini Pantoja [facility] 11-19-2021 15:30-0500 Body weight 135.17 kg Nandini Pantoja Other [facility] 11-19-2021 15:30-0500 Diastolic blood pressure 76 mm[Hg] Nandini Pantoja Other [facility] 11-19-2021 15:30-0500 Systolic blood pressure 128 mm[Hg] Nandini Pantoja Other [facility] Other Encounters Encounter Date Encounter Type Care Provider Facility Start: 06-27-2024 End: 06-27-2024 ambulatory DEISY DULCE Not Available Start: 05-30-2024 End: 05-30-2024 ambulatory DEISY DULCE Not Available Start: 2024 End: 2024 ambulatory Yonis R NILL Facility: [facility] Start: 2024 End: 2024 Patient encounter procedure JANNETH HOPSON [facility] Start: 04-27-2024 End: 04-27-2024 ambulatory MD Shashi Hargrove Work Phone: [facility] Work Phone: Start: 04-27-2024 End: 04-27-2024 Departed Referred MD Shashi Hargrove Work Phone: [facility] Start: 04-27-2024 End: 04-27-2024 ambulatory Yonis R NILL Facility:CD:[id number] Start: 03-08-2024 End: 03-08-2024 ambulatory Yonis R NILL Facility: [place] Start: 03-08-2024 End: 03-08-2024 Patient encounter procedure Yonis R NILL [facility] Start: 02-09-2024 End: 02-09-2024 ambulatory Dieter SALMON [place] Start: 02-09-2024 End: 02-09-2024 Patient encounter procedure Dieter SALMON [facility] Start: 01-19-2024 End: 01-19-2024 ambulatory JANNETH HOPSON Facility[facility] Start: 01-19-2024 End: 01-19-2024 Lab Drop off JANNETH HOPSON [facility] Start: 01-19-2024 End: 01-19-2024 ambulatory JANNETH HOPSON Facility:[facility] Start: 01-19-2024 End: 01-19-2024 Patient encounter procedure JANNETH HOPSON [facility] Start: 12-31-2023 ambulatory JANNETH HOPSON Facility :[facility] Start: 12-17-2023 End: 12-17-2023 ambulatory Taniya Mary [facility] Start: 12-17-2023 Office outpatient visit 15 minutes Taniya Mary [facility] Start: 12-07-2023 End: 12-07-2023 ambulatory Taniya Mary Grace Other [facility] Other Start: 12-07-2023 Telephone encounter Taniya Mary Grace [facility] Start: 12-02-2023 End: 12-02-2023 ambulatory Taniya Mary Grace Other [facility] Other Start: 12-02-2023 Office outpatient ne w 30 minutes Taniya Mary Grace [facility] Start: 04-17-2023 End: 04-17-2023 ambulatory SALMA MONET . Facility:[facility] Start: 04-06-2023 End: 04-07-[address] SHASHI HARGROVE . Facility:[facility] Start: 04-04-2023 Encounter for genera l adult medical examination without abnormal findings DR SHASHI HARGROVE . [facility] Start: 04-03-2023 End: 04-04-[address] SHASHI HARGROVE . Facility:[facility] Start: 04-01-2023 End: 04-02-[address] SHASHI HARGROVE . Facility:[facility] Start: 04-01-2023 End: 05-11-2023 Encounter for general adult medical examination without abnormal findings DR SHASHI HARGROVE . Facility:[facility] Start: 02-13-2023 End: 02-14-[address] SHASHI HARGROVE . Facility:[facility] Start: 02-04-2023 End: 02-04-2023 ambulatory ELLIS PARIS Facility:[facility] Start: 10-20-2022 End: 10-20-2022 ambulatory DANIELLUZ CELAYA Facility:[facility] Start: 08-05-2022 End: 08-05-2022 ambulatory JETHRO GRIFFITH Facility:[facility] Start: 07-18-2022 End: 07-18-[address] SHASHI HARGROVE . Facility:[facility] Start: 07-10-2022 End: 07-10-[address] SHASHI HARGROVE . Facility:[facility] Start: 06-03-2022 End: 06-24-[address] SHASHI HARGROVE . Facility:[facility] Start: 05-13-2022 End: 05-14-[address] SHASHI HARGROVE . Facility:[facility] Start: 03-18-2022 End: 03-18-2022 ambulatory UNKNOWN PROVIDER Facility:[facility] Start: 11-19-2021 End: 11-19-2021 ambulatory Nandini Pantoja Other [facility] Other Start: 11-19-2021 Office outpatient ne w 30 minutes Nandini Pantoja [facility] Start: 12-20-2018 End: 12-21-2018 Patient encounter procedure [facility] Procedures Date Procedure Procedure Detail Performing Clinician Start: 04-29-2024 Colonoscopy JANNETH MCKEON Start: 02-09-2024 Cystoscopy JANNETH MCKEON Start: 03-18-2022 Visual field xm uni/ bi w/interp extended exam Estella Guerrero MD Work Phone: Start: 03-18-2022 End: 03-18-2022 Ophth medical xm&eval compre new pt 1/> vst Chronic nonintractable headache, unspecified headache type Estella Guerrero MD Work Phone: Comment on above: Chronic nonintractab le headache, unspecified headache type (Primary Dx) Start: 10-02-2021 Laparoscopic cholecystectomy JANNETH HOPSON Start: 12-20-2018 Cytopathology proced ure, preparation of smear, genital source ANDRESSA ESCALANTE Start: 07-09-2016 Colonoscopy Yonis KEE Colonoscopy JANNETH HOPSON Fasciotomy of foot JANNETH HOPSON Comment on above: left Hallux valgus correc tion by phalanx osteotomy JANNETH HOPSON Hammer toe operation ALFONSO HOPSON Left salpingo-oophorectomy JANNETH HOPSON Plan of Treatment Date Care Activity Detail Author Start: 2043 Shingles (RZV) Vacci ne (1 of 2) Shingles (RZV) Vaccine (1 of 2) [facility] Start: 2014 Screening for malign ant neoplasm of cervix Pap Smear [facility] Start: 2011 Hepatitis C screening Hepatitis C An tibody [facility] Start: 2011 Tetanus + diphtheria + acellular pertussis vaccine (product) Tdap Booster [facility] Start: 2008 HIV screening HIV Test [facility] Start: 1998 COVID-19 Vaccine (1) COVID-19 Vaccin e (1) [facility] Immunizations Immunization Date Immunization Notes Care Provider Marino lopez 10-28-2022 influenza virus vaccine, unspecified formulation JANNETH HOPSON [facility] 04-15-2021 SARS-CoV-2 (COVID-19 ) mRNA-1273 vaccine JANNETH HOPSON [facility] [place] 03-18-2021 SARS-CoV-2 (COVID-19 ) mRNA-1273 vaccine JANNETH HOPSON [facility] [place] 03-21-2014 influenza virus vaccine, unspecified formulation Estella Guerrero MD Work Phone: [facility] Payers Date Payer Category Payer Unknown [employer] [id number] 2017-Present [id number] 1993 Unknown [id number] 2.16.840.1.814873.3.579.2.173 1993 Unknown [id number] 2.16.840.1.596519.3.579.2.732 1993 Unknown [id number] 2.16.840.1.442950.3.579.2.593 1993 Unknown [id number] 2.16.840.1.136307.3.579.2.593 1993 Unknown [id number] 2.16.840.1.331316.3.579.2.593 1993 Unknown [id number] 2.16.840.1.412035.3.579.2.593 1993 Unknown [id number] 2.16.840.1.551128.3.579.2.593 1993 Unknown [id number] 2.16.840.1.648232.3.579.2.593 1993 Unknown [id number] 2.16.840.1.080768.3.579.2.593 1993 Unknown [id number] 2.16.840.1.836878.3.579.2.593 1993 Unknown [id number] 2.16.840.1.582698.3.579.2.593 1993 Unknown [id number] 2.16.840.1.374768.3.579.2.593 1993 Unknown [id number] 2.16.840.1.589306.3.579.2.593 1993 Unknown [id number] 2.16.840.1.266799.3.579.2.593 1993 Unknown [id number] 2.16.840.1.021231.3.579.2.727 1993 Unknown [id number] 2.16.840.1.540798.3.579.2.727 1993 Unknown [id number] 2.16.840.1.702927.3.579.2.727 1993 Unknown [id number] 2.16.840.1.276673.3.579.2.727 1993 Unknown [id number] 2.16.840.1.448702.3.579.2.727 1993 Unknown [id number] 2.16.840.1.849948.3.579.2.727 1993 Unknown [id number] 2.16.840.1.021043.3.579.2.727 1993 Unknown [id number] 2.16.840.1.783813.3.579.2.1259 1993 Unknown [id number] 2.16.840.1.030160.3.579.2.1259 1959 Unknown [id number] Social History Date Type Detail Facility Tobacco smoking status PAIS Tobacco smoking consumption unknown [place] [employer] Other Start: 1993 Sex Assigned At [facility] Assigned At [facility] Start: 01-19-2024 End: 2024 Tobacco smoking status Never smoked tobacco (finding) [facility] Tobacco smoking status Never [facility] Start: 1993 Sex Assigned At Female F [facility] Functional Status Date Assessment Result Facility 2024 Functional Status N/A [facility] 03-08-2024 Functional Status N/A [facility] 01-19-2024 Functional Status N/A [facility] Notes 03-18-2022 to 2024 Note Date & Type Note Facility 2024 Hospital Discharg e instructions Patient Education 2024 09:48:37 Antibiotic Medicine, Adult Antibiotic Medicine, Adult Antibiotic medicines are used to treat infections caused by bacteria, such as strep throat and urinary tract infection (UTI). Antibiotic medicines will not work for colds, the flu (influenza), or other illnesses caused by viruses. These medicines work by killing the bacteria that are making you sick. Antibiotics can also have serious side effects. It is important that you take antibiotic medicines safely and only when needed. When do I need to take antibiotics? You may need antibiotics for: UTI. Strep throat. Bacterial sinusitis. Meningitis. This infection affects the spinal cord and brain. Serious lung infection. You may start antibiotics while your health care provider waits for your results from any tests for possible infection. Tests may include a culture of your throat, urine, blood, or mucus. Your health care provider may change or stop your antibiotic depending on your test results. When are antibiotics not needed? You do not need antibiotics for most common illnesses. These illnesses may be caused by a virus, not by bacteria. You do not need antibiotics for: The common cold. Influenza. Sore throat. Discolored mucus. Bronchitis. Antibiotics are not always needed for all infections caused by bacteria. Many of these infections clear up without antibiotic treatment. Do not ask for or take antibiotics when they are not necessary. How long should I take my antibiotic? You must take the entire prescription. Continue to take your antibiotic for as long as told by your health care provider. Do not stop taking it even if you start to feel better. If you stop taking it too soon: You may start to feel sick again. Your infection may become harder to treat. Each course of antibiotics needs a different amount of time to work. Some antibiotic courses last only a few days. Some last about a week to 10 days. In some cases, you may need to take antibiotics for a few weeks to completely treat your infection. What if I miss a dose? Try not to miss any doses of medicine. If you miss a dose, call your health care provider or pharmacist for advice. Sometimes it is okay to take the missed dose as soon as possible. Do not take double or extra doses. What are the risks of taking antibiotics? Antibiotics can cause: Allergic reactions. Nausea. Yeast infections. Liver problems. Antibiotics can also cause an infection called Clostridioides difficile (C. difficile or C. diff), which causes severe diarrhea. This infection happens when the antibiotics kill the healthy bacteria in your intestines. This allows C. diff to grow. C. diff needs to be treated right away. Let your health care provider know if: You develop diarrhea while taking an antibiotic. You develop diarrhea after you stop taking an antibiotic. C. diff infection can start weeks after stopping the antibiotic. Taking an antibiotic also puts you at risk for getting sick in the future with bacteria that do not respond to medicine (antibiotic-resistant infection). Antibiotics can cause bacteria to change so that if the antibiotic is taken again, the medicine cannot kill the bacteria. These infections can be more serious and, in some cases, life-threatening. Do antibiotics affect control? control pills may not work while you are on antibiotics. If you are taking control pills, continue taking them as usual and use a second form of control, such as a condom, to avoid unwanted . Continue using the second form of control until your health care provider says you can stop. What else should I know about taking antibiotics? It is important for you to take antibiotics exactly as told. Make sure to: Take the correct amount of medicine at the same time each day. Ask your health care provider: ?How long to wait between doses. ?If your antibiotic should be taken with food. ?If there are any foods, drinks, or medicines that you should avoid while taking your antibiotics. ?If there are any side effects you should be aware of. Use only the antibiotics prescribed for you by your health care provider. Do not use antibiotics prescribed for someone else. Drink a large glass of water when taking your antibiotics. Drink enough fluid to keep your urine pale yellow. Ask your pharmacist for a syringe, cup, or spoon that properly measures your antibiotics. Throw away any leftover medicine. Follow these instructions at home: Take stku-seu-xgxmrpc and prescription medicines as told by your health care provider. Return to your normal activities as told by your health care provider. Ask your health care provider what activities are safe for you. Keep all follow-up visits as told by your health care provider. This is important. Contact a health care provider if: Your symptoms get worse. You have new joint pain or muscle aches that begin after starting your antibiotic. You have side effects from your antibiotic, such as: ?Stomach pain. ?Diarrhea. ?Nausea. ?White patches in your mouth or throat. Get help right away if: You have signs of a severe allergic reaction to antibiotics. If you have any of these signs, stop taking the antibiotic right away. Signs may include: ?Hives. These are raised, itchy, red bumps on your skin. ?Skin rash. ?Trouble breathing. ?Noisy breathing (wheezing). ?Swelling anywhere on your body. ?Feeling dizzy. ?Vomiting. You have signs of liver problems, such as: ?Dark or blood-colored urine. ?Yellow color to your skin. ?Bruising or bleeding easily. You have severe diarrhea, and you have cramps in your abdomen. You have a severe headache. These symptoms may represent a serious problem that is an emergency. Do not wait to see if the symptoms will go away. Get medical help right away. Call your local emergency services (911 in the [place] Do not drive yourself to the hospital. Summary Antibiotic medicines are used to treat infections caused by bacteria. It is important that you take antibiotic medicines safely and only when needed. Your health care provider may change or stop your antibiotic depending on your results from certain tests. Finish all antibiotic medicine even when you start to feel better. This information is not intended to replace advice given to you by your health care provider. Make sure you discuss any questions you have with your health care provider. Document Revised: 12/24/2020 Document Reviewed: 08/28/2020 [employer] Patient Education 2022 [employer]. Follow Up Care 01/19/2024 10:50:20 With:JANNETH HOPSON PA-C, URL Address: [address] [address] [phone] When: Unknown [facility] 2024 Note - From: Sanjuana Muñoz To: EU - Administrative; Sent: 2024 10:01:58 EDT Show up: 07/07/2024 10:01:00 EDT Subject: 6 month F/U Due Date/Time: 11/01/2024 10:01:00 EST Reminder/Recall Patient needs scheduled for a 6 month F/U with PETER, due back Mid October 2024. [facility] 03-10-2024 Note Chief Complaint consultation for diarrhea [...] triggers, no recent medication changes; last colonoscopy 2015 wnl; abd operations significant for cholecystectomy and [...] - Denies A (more content not included)... [facility] Comment on above: Result Comment: Elec tronically Signed By: RUTH CLARK, Yonis Mckenzie\.brandon\Date and Time Signed: 03/10/24 12:35 EDT 02-09-2024 Hospital Discharg e instructions Patient Education [...] [facility] [address] , [place] [address]- Business (1) When:06/10/2024 08:33:15 Comments:With Deepthi Hopson [facility] 02-09-2024 Note [id number] [facility] 02-09-2024 Note Custom Cystoscopy ? Voiding after [...] you have a fever over 100 degrees. [facility] 01-19-2024 Hospital Discharg e instructions Patient Education [...] including vitamins, herbs, eye drops, creams, and ennr-nyt-nkjpywo medicines. Any problems you or family members [...] health care provider tells you to. ?Taking wxiz-evm-lohrqbj medicines, vitamins, herbs, and supplements. General instructions [...] provider. Document Revised: 02/19/2023 Document Reviewed: 02/19/2023 [employer] Patient Education 2022 [employer]. 01/19/2024 10:32:14 Urinary Tract Infection, Adult Urinary [...] Treatment for this condition includes: Antibiotic medicine. Uzye-bgg-nydhkue medicines to treat discomfort. Drinking enough water [...] Follow these instructions at home: Medicines Take dtvx-nbw-owbfikw and prescription medicines only as told by [...] provider. Document Revised: 06/21/2021 Document Reviewed: 06/21/2021 [employer] Patient Education 2022 [employer]. Follow Up Care 01/08/2024 10:24:51 With:JANNETH HOPSON PA-C, URL Address: [address] [facility] [place] [address] When: Unknown [facility] 01-19-2024 Note Chief Complaint Referral *Frequent UTI HPI Staff Evaluation requested by Dr Shashi Hargrove due to UTI. Pt is a [...] E Coli Tx'd w/ Cefdinir 300mg BID [id number] ÁLVARO 01/01/24 *No acute abnormality CTa wo/w [...] yes avoids baths/hot tubs yes avoids scented [employer] products yes urinates after sexual activity yes [...] and benefits for (more content not included)... [facility] Comment on above: Result Comment: Elec tronically Signed By: JANNETH HOPSON PA-C\.br\Date and Time Signed: 01/19/24 10:56 EST\.br\Electronically Co-Signed By: Jania Lyn.br\Date and Time Co-Signed: 01/19/24 10:36 EST 12-17-2023 Evaluation note Encounter Date Diagnosis Assessment [...] her to avoid NSAIDs or any other gqiw-vfj-xtdbcfy medication or high-protein supplements Nov, Renal lesion [...] of any breach, fraud, or malicious third republican actors and no personal patient information was compromised. [facility] 01-10-2024 Evaluation note* Encounter Date Diagnosis [...] her to avoid NSAIDs or any other rbcu-iat-uyqchej medication or high-protein supplements Nov, Renal lesion (ICD-10 - N28.9) She had a renal lesion of indeterminate nature on the renal ultrasound. She is ordered to have a CAT scan with contrast by the PCP. Will follow the report once done. Nov, IBS (irritable bowel syndrome) (ICD-10 - K58.9) Continue to follow with PCP for IBS management. [facility] Other 06-21-2022 NotePROCEDURE: XR SHOULDER RT 2V or > COMPARISON: None. HISTORY: Pain of right shoulder joint FINDINGS: BONES:No fracture, acute abnormality, or significant arthropathy. SOFT TISSUES:Negative. No visible soft tissue swelling. EFFUSION:None visible. OTHER: Negative. IMPRESSION: Normal examination. Electronically authenticated by: NANDINI MAYER Date: 2022-05-13 08:41[facility]04-26-2022 History of Present illness Narrative* Francisco [...] no disc edema - F/u with PCP (Shashi Hargrove [place]) regarding headaches-- will fax information to [phone] - Offered referral to neurology, patient prefers [...] papilledema. Francisco Ayers MD documented in this [id number] History of Present illness Narrative* Francisco Ayers [...] Hair) regarding headaches-- will fax information to [phone] - Offered referral to neurology, patient prefers [...] Appointments Appointment Date:02/02/2024 11:30:00 AM Scheduled Provider: Location:[facility] Appointment Type:Urology CALL PAT FT Appointment Date:02/09/2024 08:15:00 AM Scheduled Provider: Location:[facility] Appointment Type:Urology FT Appointment Date:2024 08:20:00 AM Scheduled Provider:JANNETH HOPSON PA-C Location:[facility] Appointment Type:URO Office Visit [facility] evaluation + Plan note Future Appointments Appointment Date:02/02/2024 11:30:00 AM Scheduled Provider: Location:[facility] Appointment Type:Urology CALL PAT FT Appointment Date:02/09/2024 08:15:00 AM Scheduled Provider: Location:[facility] Appointment Type:Urology FT Appointment Date:2024 08:20:00 AM Scheduled Provider:JANNETH HOPSON PA-C Location:[facility] Appointment Type:URO Office Visit Diagnostic Tests Pending * [facility]ments Appointment Date:2024 08:20:00 AM Scheduled Provider:JANNETH HOPSON PA-C Location:[facility] Appointment Type:URO Office Visit [facility] note* Diagnosis Chronic nonintractable headache, unspecified headache type- [facility] Chronic nonintractable headache, unspecified headache type- Primary [facility] noteNo[facility]emgent Other Evaluation noteNo InformationNoStemgent Other Evaluation noteNo assessment information available [facility] Work Phone: History general [facility] - [facility] Other [facility] general Narrative - Reported* Type Description Date Medical History irritable bowel syndrome Medical History depression Medical History PROTEINURIA, UNSPECIFIED Medical History HYPOGLYCEMIA Medical History ARTHRALGIA Medical History SHINGLES Medical History ADHD Surgical History ovary removed 2014 Surgical History cholecystectomy Surgical History bilateral fasciitis repair Surgical History bilateral bone spur removal Hospitalization History 1 child [facility] Other Hospital course Narrative No data available for this section [facility] Hospital Discharge instructions No data available for this section [facility] No data available for this section [facility] Summary Purpose Family History No Family History Records Found Relationship Condition Age at Onset Recorded Date/T swati father Hyperlipidemia Unknown Hypertension Unknown Not Specified Hypertension Unknown sister Family history of mental disorder Unknown Advance Directives No Advanced Directives Records FoundNo Advanced Directives Records FoundNo Advanced Directives Records FoundNo Advanced Directives Records FoundNo Advanced Directives Records FoundNo Advanced Directives Records Found Additional Source Comments INFORMATION SOURCE (unrecogn ized section and content) DATE CREATED AUTHOR 08/31/2019 [facility] DATE CREATED AUTHOR AUTHOR'S ORGANIZ ATION 03/20/2022 [facility] DATE CREATED AUTHOR AUTHOR'S ORGANIZ ATION 04/18/2023 [facility] DATE CREATED AUTHOR AUTHOR'S ORGANIZ ATION 04/30/2024 [facility] DATE CREATED AUTHOR AUTHOR'S ORGANIZ ATION 05/24/2024 [facility] DATE CREATED AUTHOR AUTHOR'S ORGANIZ ATION 06/28/2024 [facility] EPIC Reason for Visit (unrecogniz ed section and content) Reason Comments Optic nerve edema Patient Care team informatio n (unrecognized section and content) Team Status: Active Member Role Status Dates Shashi Hargrove MD Primary Care Provider Active Team Status: Inactive Member Role Status Dates Shashi Hargrove MD Primary Care Provider Active Start: April 27, 2024 End: April 27, 2024 Yonis Carney MD [facility] Attending Provider Active Start: April 27, 2024 End: April 27, 2024 Goals (unrecognized section and content) Goals may be documented in a n alternate section FOR RECORDS PERTAINING TO PATIENTS WHO ARE [...] BE BASED ON THE PRIMARY CLINICAL RECORDS. [employer] provides no warranty or guarantee of the accuracy or completeness of information in this document.
[2024-07-04 15:41] LABS: Free T3 2.64 pg/mL (2.18-3.98); Thyroid Stimulating Hormone 4.094 uIU/mL (0.358-3.740)
== END 2024-07-04 14:05 | disposition home or self-care (01) ==
LOC: LAB 14:06
PROVIDERS: PCP Family Medicine; Visit Provider Family Medicine
DX: E03.9 Hypothyroidism, unspecified (principal)
CPT/HCPCS: 36415; 84436; 84443; 84481

== ENCOUNTER 2024-09-16 09:11 | Outpatient (OUT) | payer OTHER, SELFPAY ==
--- OUTSIDE RECORDS SUMMARY | 2024-09-16 09:18 | XMS_ITS | CCD ---
Author Organization [facility] Care Team Providers Care Frame Fixer Name Role Phone AMYTOAN CulverKRISTA Kaur Referring [...] Unavailable HOY ., DR SEWELL Admkaty Unavailable CARRABELLE, DR NANDINI Stafford Consulting Unavailable HOY ., DR SEWELL Consulting Unavailable HOY ., DR SEWELL Primary Care Unavailable HOY ., DR SEWELL Attending Unavailable HOY ., DR SEWELL Admitting Unavailable HOY ., DR SEWELL Consulting Unavailable HOY ., DR SEWELL Primary Care Unavailable HOY ., DR SEWELL Attending Unavailable HOY ., DR SEWELL Admitting Unavailable CARRABELLE, DR NANDINI Stafford Consulting Unavailable HOY ., DR SEWELL Primary Care Unavailable HOY ., DR SEWELL Attending Unavailable HOY ., DR SEWELL Admitting Unavailable NACHO, JETHRO Consulting Unavailable NACHO, JETHRO Attending Unavailable NACHO, JETHRO Admitting Unavailable HOY ., DR SEWELL Primary Care Unavailable PARIS, ELLIS Consulting Unavailable PARIS, ELLIS Attending Unavailable PARIS, ELLIS Admitting Unavailable HOY ., DR SEWELL Primary Care Unavailable Mary Grace, Taniya Unavailable Melodie Hargrove Primary Care Physician MD Melodie Hargrove Primary Care Provider [phone] MD Yonis Carney Attending Provider [phone] Melodie Hargrove Primary Care Unavailable Nill, Yonis Mckenzie Attending Unavailable Nill, Yonis Mckenzie Admitting Unavailable NILL, Yonis Mckenzie Attending Unavailable NILL, Yonis Mckenzie Attending Unavailable Hoy, Melodie Referring Unavailable NILL, Yonis Mckenzie Attending Unavailable LUIS, JANNETH E Attending Unavailable Hoy, Melodie Referring Unavailable LUIS, JANNETH E Attending Unavailable LUIS, JANNETH E Attending Unavailable SALMON, Dieter R Referring Unavailable SALMON, Dieter R Attending Unavailable SALMON, Dieter R Admitting Unavailable LUIS, JANNETH E Attending Unavailable LUIS, JANNETH E Admitting Unavailable DULCE, DEISY Attending Unavailable DULCEDEISY DILLARD Attending Unavailable KELLE LOVE Attending Unavailable KATE, KELLE Attending Unavailable Melodie Hargrove MD Primary Care Provider [phone] Allergies Allergy Classification Reported Allergen(s) Allergy Type Date of Onset Reaction(s) Facility (1 source) [facility]; Translations: [[facility] Propensity to adverse reactions (disorder) 0 [facility] Repository (3 sources) [employer] [facility] Drug allergy [employer] Other (1 source) No Known Medication Allergies; Translations: [No Known Medication Allergies] Propensity to adverse reactions (disorder) [facility] Repository Medications Current Medications Medication [...] Refills(s) 0 Start Date: 05/10/24 Status: Ordered fexofenadine hydrochloride 30 mg disintegrating oral tablet (3 sources) Histamine-1 Receptor Antagonist take 1 tablet by mouth once daily fexofenadine ODT (Susan ODT) 30 MG disintegrating tablet Take 30 mg by mouth Daily Active 24 hr guanFACINE 3 mg extended release oral tablet (6 sources) Central alpha-2 Adrenergic Agonist Start: 01-19-2024 guanfacine 3 mg oral tablet, extended release Refills(s) 0 Start Date: 01/19/24 Status: Ordered take 1 tablet by mouth once tyrell y guanFACINE HCl ER 3 MG TAKE 1 TABLET BY MOUTH EVERY DAY Oral for 30 Days Active 24 hr metFORMIN hydrochloride 500 mg extended release oral tablet (3 sources) Biguanide Start: 05-30-2024 take 1 tablet by mouth every twenty-four hours at mealtime metFORMIN XR (Glucophage-XR) 500 MG 24 hr tablet Indications: Pelvic pain in female , PCOS (polycystic ovarian syndrome) Take 1 tablet (500 mg) by mouth in the evening. Take with meals Do not crush, chew, or split. 30 tablet 11 05/30/2024 Active ondansetron 4 mg disintegrating oral tablet (5 sources) Serotonin-3 Receptor Antagonist Start: 2024 ondansetron 4 mg Dis Tab Refills(s) 0 Start Date: 05/10/24 Status: Ordered Start: 09-19-2021 take 1 tablet by joesph th every six hours ondansetron 4 mg Tab 4 mg = 1 tab(s), Oral, q6hr, Refills(s) 0 Start Date: 09/19/21 Status: Ordered phentermine hydrochloride 37.5 mg oral tablet (8 sources) Sympathomimetic Amine Anorectic Start: 06-27-2024 End: 11-27-2024 take 1 tablet by mouth before mealtime phentermine (Adipex-P) 37.5 MG tablet Indications: Encounter for weight management Take 1 tablet (37.5 mg) by mouth in the morning. Take before meals. 90 tablet 08/29/2024 11/27/2024 Active sertraline 100 mg oral tablet (13 sources) Serotonin Reuptake Inhibitor Start: 09-19-2021 take 1 tablet by mouth once daily Zoloft 100 mg Tab 100 mg = 1 tab(s), Oral, Daily, Refills(s) 0 Start Date: 09/19/21 Status: Ordered sulfamethoxazole 400 mg / trimethoprim 80 mg oral tablet (9 sources) Dihydrofolate Reductase Inhibitor Antibacterial, Sulfonamide Antimicrobial Start: 01-19-2024 Bactrim 400 mg-80 mg Tab 1 tab(s), Oral, Daily UTI prevention, 30 tab(s), Refill(s) 3, [facility]/pharmacy #[id number], 180, cm, 01/19/24 9:37:00 EST, Height/Length Dosing, 145.5, kg, 01/19/24 9:37:00 EST, Weight Dosing Start Date: 01/19/24 Status: Ordered Start: 04-01-2023 take 1 tablet by joesph th once in the morning, then take 1 tablet by mouth once at bedtime sulfamethoxazole-trimethoprim (Bactrim D S) 800-160 MG per tablet Take 1 tablet by mouth in the morning and 1 tablet before bedtime. 04/01/2023 Active Completed/Discontinued Medications Medication Drug Class(es) Dates Sig (Normalized) Sig (Original) cephalexin 500 mg oral capsule (4 sources) Cephalosporin Antibacterial Start: 01-19-2024 Keflex 500 mg Cap 500 mg = 1 cap(s), Oral, As Directed, Pt to take 1 tab the day before procedure and the 2nd tab the day of procedure once completed., # 2 cap(s), Refills(s) 0, Pharmacy: [facility]/pharmacy #[id number], 180, cm, 01/19/24 9:37:00 EST, Height/Length Dosing, 145.5, kg, 01/19/24 9:37:00 EST, Weight Dosing Start Date: 01/19/24 Status: Ordered levonorgestrel 0.517589 mg/hr intrauterine system (6 sources) Progestin, Progestin-containin [...] Classification Problem Date Documented Da te Episodic/Chronic Administrative/social admission (5 sources) Patient encounter status; Translations: [Persons encountering health services in other specified circumstances] Onset: 4 06-27-2024 Episodic Anxiety disorders (9 sources) Anxiety; Translations: [Anxiety disorder, unspecified] Onset: 3 09-20-2021 Chronic Conditions associated with dizziness or vertigo (4 sources) Dizziness and giddiness; Translations: [DIZZINESS AND GIDDINESS] Onset: 3 Episodic Esophageal disorders (20 sources) Gastroesophageal reflux disease; Translations: [Gastro-esophageal reflux disease without esophagitis] Onset: 1 Resolved: 1 Chronic Fluid and electrolyte disorders (1 source) Hypokalemia Episodic Genitourinary symptoms and ill-defined conditions (2 sources) Proteinuria, unspecified Episodic Headache; including migraine (2 sources) Headache; Translations: [Chronic nonintractable headache, unspecified headache type] Episodic Mood disorders (9 sources) Mood disorder; Translations: [Unspecified mood [affective] disorder] Onset: 3 09-19-2021 Chronic Nausea and vomiting (1 source) Nausea; Translations: [NAUSEA] Onset: 3 Episodic Other acquired deformities (9 sources) Scoliosis deformity of spine; Translations: [Scoliosis, unspecified] Onset: 3 09-20-2021 Chronic Other aftercare (1 source) Other rat exterminator (current) drug therapy; Translations: [OTH CARE HOME CURRENT DRUG THERAPY] Onset: 3 Episodic [...] HYPOGLYCEMIA] Onset: 3 Chronic Other gastrointestinal disorders (14 sources) Irritable bowel syndrome; Translations: [Irritable bowel syndrome without diarrhea] Onset: 3 Chronic Other gastrointestinal disorders (3 [...] disorders (3 sources) Morbid obesity 03-04-2024 Chronic Unclassified (3 sources) CONTACT W/AND (SUSP) EXPOS COVID-19; Translations: [CONTACT W/AND (SUSP) EXPOS COVID-19] Onset: 2 Unclassified (1 source) COUGH, UNSPECIFIED; Translations: [COUGH, UNSPECIFIED] Onset: 2 Urinary tract infections (13 sources) Urinary tract infection, site not specified; Translations: [Urinary tract infectious disease] Onset: 3 Episodic Past or Other Problems Problem Classification Problem Date Documented Da te Episodic/Chronic Abdominal pain (15 sources) Epigastric pain; Translations: [Right upper quadrant pain] Onset: 05-27-2023 09-20-2021 Episodic Biliary tract disease (9 sources) Chronic cholecystitis with calculus; Translations: [Calculus of gallbladder with chronic cholecystitis without obstruction] Onset: 05-27-2023 09-30-2021 Episodic Other and unspecified benign neoplasm (3 sources) Mature cystic teratoma of left ovary; Translations: [Benign neoplasm of left ovary] Onset: 04-10-2015 05-27-2023 Episodic Other connective tissue disease (4 sources) Impingement syndrome of right shoulder; Translations: [IMPINGEMENT SYNDROME RIGHT SHOULDER] Onset: 07-10-2022 Episodic Other gastrointestinal disorders (3 sources) Pharyngeal dysphagia; Translations: [Dysphagia, pharyngeal phase] Onset: 05-07-2023 05-07-2023 Episodic Other non-traumatic joint disorders (5 sources) Pain in right shoulder; Translations: [PAIN IN RIGHT SHOULDER] Onset: 05-13-2022 Episodic Other and delivery including normal (3 sources) Vaginal delivery; Translations: [Encounter for full-term uncomplicated delivery] Onset: 09-06-2014 05-27-2023 Episodic Other screening for suspected conditions (not mental disorders or infectious disease) (9 sources) Ultrasonography of biliary tract abnormal; Translations: [Abnormal findings on diagnostic imaging of liver and biliary tract] Onset: 05-27-2023 09-20-2021 Episodic Other skin disorders (9 sources) Acne vulgaris; Translations: [Acne vulgaris] Onset: 05-27-2023 09-20-2021 Episodic Other upper respiratory infections (1 source) Acute pharyngitis, unspecified; Translations: [ACUTE PHARYNGITIS UNSPECIFIED] Onset: 10-23-2022 Episodic Poisoning by nonmedicinal substances (4 sources) Toxic effect of venom of bees, accidental (unintentional), initial encounter; Translations: [TOXIC EFF VENOM BEES ACC INIT ENC] Onset: 08-05-2022 Episodic Residual codes; unclassified (9 sources) Insomnia; Translations: [Insomnia, unspecified] Onset: 05-27-2023 09-20-2021 Episodic Skin and subcutaneous tissue infections (1 [...] Test Name Value Interpretation Reference Range Facility Reminderson 07-12-2024 Reminders Reminders From: Sanjuana Muñoz To: [facility] - Administrative; Sent: 2024 10:01:58 EDT Show up: 07/07/2024 10:01:00 EDT Subject: 6 month F/U Due Date/Time: 11/01/2024 10:01:00 EST Reminder/Recall Patient needs scheduled for a 6 month F/U with PETER, due back Mid October 2024. LVM for patient to call and schedule f/u [facility] Screenson 05-11-2024 Screens [id number]#1. 00TIFF [facility] Ambulatory Visit Summaryon 0 2024 Ambulatory Visit Summary ROSALIE FREEMAN V :1995 Visit Date:2024 Ambulatory Visit Instructions Your Diagnosis Recurrent UTI Renal lesion Your Care Team Attending Physician - JANNETH HOPSON PA-C Primary Care Physician - Melodie Hargrove MD This Is [...] Follow-Up Appointments Thursday 3:00 PM EDT With: Yonis CARNEY MD Where: [facility] General Surgery [facility] Patient Educationon 05-10-20 24 Patient [...] Follow these instructions at home: ? Take ktkh-ozv-dunakpf and prescription medicines as told by your [...] get worse. (more content not included)... Normal [facility] Urology Office/Clinic Noteon 2024 Urology Office/Clinic Note [...] back normal. Is considering f/u with a rotary planer set up operator. Also had a difficult PO recovery and had a CT scan done in the ER which indicated her Mirhieu is not in the correct spot. States she plans to f/u with her vocational training teacher. We did speak about how some pts [...] Bactrim SS 1 tab prn -F/u with EP TECHNOLOGIST to discuss IUD/different form of control -F/u in 6 mos w/ no labs 2. Renal lesion (N28.9: Disorder of kidney and ureter, unspecified) Renal US 11/27/23 shows a 1.8cm indeterminate lesion Rt renal midpole cortex. CTA wo/w 12/07/23 neg for suspicious renal lesion Repeat renal US 01/01/24 did not show any abnormality. -no further imaging/fu indicated [1] Follow-up With When Contact Information LUIS STEPHENS, JANNETH Barreto, URL [address] [place] [address] [phone] Additional Instructions: 6 mos (no labs) Patient Education Antibiotic Medicine, Adult Documentation recorded by the curt Parra accurately reflects the services(s) I performed and decisions made by me. Authenticated by Janneth Hopson PA-C on 2024 09:54:59. IOndina, personally scribed for Janneth Hopson PA-C on [...] virus vaccine, (more content not included)... Normal [facility] Comment on above: Result Comment: Elec tronically Signed By: JANNETH HOPSON PA-C\.br\Date and Time Signed: 05/10/24 09:55 EDT\.br\Electronically Co-Signed By: Ondina Parra\.br\Date and Time Co-Signed: 05/10/24 09:51 EDT Outside Colonoscopyon 2023 Outside Colonoscopy [id number]#1.00 TIFF [facility] Lab Reportson 04-28-2024 Lab Reports [id number]#1.0 0TIFF [facility] Consent for Procedure/Surger yon 03-09-2024 Consent for Procedure/Surgery [id number]#1.0 0TIFF [facility] Ambulatory Visit Summaryon 0 03-08-2024 Ambulatory [...] JANNETH HOPSON PA-C Where: [facility] Physician Referralon 024 Physician Referral [id number]#1.0 0TIFF [facility] Physician Referralon 024 Physician Referral [id number]#1.0 0TIFF [facility] Consent for Procedure/Surger yon 02-09-2024 Consent for Procedure/Surgery [id number]#1. 00TIFF [facility] Consent for Treatmenton 01-21 Consent for Treatment [id number]#1.0 0TIFF Normal [facility] IntraOperative Documentson 0 02-09-2024 IntraOperative Documents [id number]#1. 00TIFF [facility] Main OR Intraoperative Recor don 02-09-2024 Main OR Intraoperative Record IntraOp Document Type FTURO Summary Primary Physician: Dieter SALMON MD Finalized Date/Time: 02/09/24 08:32:09 Pt. Name: ASHLEE FREEMANRonnie Martin/Sex: 1995 Female Med Rec #: [id number] Physician: Dieter SALMON MD Financial #: [id number] Pt. Type: O Room/Bed: / Admit/Disch: 02/09/24 07:32:51 - Institution: Case Times FTURO Entry 1 Patient Times In Room 02/09/24 08:10:00 Out Room 02/09/24 08:38:00 Procedure Times Start 02/09/24 08:24:00 Stop 02/09/24 08:33:00 Anesthesia Times Last Modified By: Сергей VALENZUELA, RAYMONDOR, Sangita 02/09/24 08:31:26 Case Attendance FTURO Entry 1 Entry 2 Entry 3 Case Attendee Dieter SALMON MD RN, CNOR, Maryam GRIGSBY, Bianca Quesada Role Performed Surgeon - Primary Straightener And Aligner - Primary Scrub - Primary Time In [...] Verified (If Participants Сергей VALENZUELA, RAYMONDOR, Applicable) Maryam Quesada CST, Kimberly A Time [...] GIUSEPPE Rushing RN, Ruthann 02/09/24 08:32 Normal [facility] Main OR Preoperative Recordo n 02-09-2024 Main OR Preoperative Record Holding Area Document Type FTURO Summary Primary Physician: Dieter SALMON MD Finalized Date/Time: 02/09/24 08:08:52 Pt. Name: ROSALIE FREEMAN D.O.B./Sex: 1995 Female Med Rec #: [id number] Physician: Dieter SALMON MD Financial #: [id number] Pt. Type: O Room/Bed: / Admit/Disch: 02/09/24 [...] RN, Ruthann Document Signatures Signed By: GIUSEPPE Rsuhing RN, Ruthann 02/09/24 08:08 Normal [facility] Operative Reporton Operative Report Patient: ASHLEE [...] of her recurrent urinary tract infections.. Normal [facility] Comment on above: Result Comment: Elec tronically Signed By: Dieter SALMON MD\.br\Date and Time Signed: 02/09/24 08:36 EDT Outpatient Surgery Discharge Instructionon 02-09-2024 Outpatient Surgery Discharge Instruction [id number]#1. 00TIFF [facility] RAD - MISCon 01-29-2024 RAD - MISC [id number]#1.0 0TIFF Normal [facility] C Urineon 01-21-2024 Bacteria identified Cx Nom (U) Microbiology PROCEDURE: Urine Culture [R1] SOURCE: U CleanCatch BODY SITE: COLLECTED DATE/TIME: 01/19/2024 10:53 EST RECEIVED DATE/TIME: 01/19/2024 19:24 EST START DATE/TIME: 01/19/2024 19:24 EST FREE TEXT SOURCE: JANNETH HOPSON PA-C, PA-C, JANNETH Barreto FINAL REPORTS Final Report [] Verified Date/Time: 01/21/2024 07:11 EST 5,000 cfu/ml Mixed skin contaminants Performing Locations R1: This test was performed at: [facility], [address] [place] [address], [address] [place] [address], [facility] Comment on above: Performed By: #### 2 [id number] #### [facility] [address] [place] [address] Lab Reportson 01-21-2024 Lab Reports [id number]#1. 00TIFF [facility] Lab Reports [id number]#1. 00TIFF Normal [facility] Lab Reports [id number]#1. 00TIFF Normal [facility] Lab Reports [id number]#1. 00TIFF Normal [facility] RAD - CT Reporton 01-21-2024 RAD - CT Report [id number]#1. 00TIFF Normal [facility] RAD - Ultrasound Reporton RAD - Ultrasound Report [id number]#1. 00TIFF Normal [facility] RAD - Ultrasound Report [id number]. 00TIFF Normal [facility] 01-21-2024 Screens [id number]#1.0 0TIFF Normal [facility] Ambulatory Visit Summaryon 0 01-19-2024 Ambulatory Visit Summary ROSALIE FREEMAN V :1995 Visit Date:01/19/2024 Ambulatory Visit Instructions Your Diagnosis Recurrent UTI Renal lesion Tests Performed Voiding Urethrocystogram XR -- Results Pending -- Please visit your patient portal for your results or contact your primary care physician. Your Care Team Attending Physician - JANNETH HOPSON PA-C Primary Care Physician - Melodie [...] Schedule the Following Appointments Follow Up with JANNETH HOPSON PA-C, URL When: Where: [address] [place] [address] Medications What How Much When Instructions New sulfamethoxazole-trime thoprim (Bactrim 400 mg-80 mg Tab) 1 Tablets By Mouth Every day as needed for UTI prevention Refills: 3 Pickup at [facility]/pharmacy #[id number] Unchanged guanfacine (guanfacine 3 mg oral tablet, [...] if questions or concerns Pharmacy Information [facility]/pharmacy #[id number]: [address], [place] [phone] Allergies No Known Allergies No Known Medication [...] Trouble urinati (more content not included)... Normal [facility] Patient Educationon 01-19-20 Patient Education Obstetrics and [...] this condition includes: ? Antibiotic medicine. ? Tpnb-xpq-lbejbzv medicines to treat discomfort. ? Drinking enough [...] these instructions at home: Medicines ? Take dcys-aio-asrxnkw and prescription medicines only as told by [...] Document Revie (more content not included)... Normal [facility] BNPon 04-17-2023 Natriuretic peptide B (Bld) [Mass/Vol] 246.0 pg/mL Normal <=450.0 [facility] Comment on above: Performed By: #### I NSULIN #### [facility] [address] [address] [address] Saray Souza CARDIAC NELI ADMITon 023 CK [Catalytic activity/Vol] 47 U/L Normal 26-192 [facility] Comment on above: Performed By: #### I NSULIN #### [facility] [address] [address] [address] Saray Souza CK.MB [Mass/Vol] 1.02 ng/mL Normal <=3.60 [facility] Comment on above: Performed By: #### I NSULIN #### [facility] [address] [address] [address] Saray Souza HSTROP 4.5 pg/mL Normal 4.0-51.3 [facility] Comment on above: Result Comment: CUT- OFF POINTS HAVE BEEN ESTABLISHED BASED ON THE FOURTH UNIVERSAL DEFINITIONS OF MYOCARDIAL INFARCTION. THE UPPER REFERENCE LIMIT (URL) OF TROPONIN, DEFINED THE 99TH PERCENTILE OF cTnI DISTRIBUTION IN A REFERENCE POPULATION, HAS BEEN CONFIRMED THE DECISION THRESHOLD FOR [place] DIAGNOSIS. Performed By: #### I NSULIN #### [facility] [address] [place] [address] Dr. Saray Souza FRANKLIN 36 ng/mL Normal 9-82 [facility] Comment on above: Performed By: #### I NSULIN #### [facility] [address] [place] [address] Dr. Saray Souza CBC W MANUAL DIFFon 04-17-20 23 ATYPICAL LYMPH # Normal [facility] Comment on above: Performed By: #### C DAVIDMAN #### [facility] [address] [place] [address] Dr. Saray Souza ATYPICAL LYMPH % Normal [facility] Comment on above: Performed By: #### C EDGARDO #### [facility] [address] [place] [address] Dr. Saray Souza BAND # 0.3 103/ul Normal 0.0-0.3 [facility] Comment on above: Performed By: #### C EDGARDO #### [facility] [address] [place] [address] Dr. Saray Souza BAND % 1 % Normal 0-5 [facility] Comment on above: Performed By: #### C EDGARDO #### [facility] [address] [place] [address] Dr. Saray Souza BASOM # 0.00 103/ul Normal 0.00-0.10 [facility] Comment on above: Performed By: #### C EDGARDO #### [facility] [address] [place] [address] Dr. Saray Souza BASOM % 0.0 % Critically low 0.2-2.0 [facility] Comment on above: Performed By: #### C EDGARDO #### [facility] [address] [place] [address] Dr. Saray Souza BLAST # Normal [facility] Comment on above: Performed By: #### C EDGARDO #### [facility] [address] [place] [address] Dr. Saray Souza BLAST % Normal [facility] Comment on above: Performed By: #### C EDGARDO #### [facility] [address] [place] [address] Dr. Saray Souza CORRECTED WBC Normal 4.0-11.0 [facility] Comment on above: Performed By: #### C EDGARDO #### [facility] [address] [place] [address] Dr. Saray Souza EOS # 0.00 103/ul Normal 0.00-0.70 [facility] Comment on above: Performed By: #### C EDGARDO #### [facility] [address] [place] [address] Dr. Saray Souza EOS% 0.0 % Critically low 0.9-7.0 [facility] Comment on above: Performed By: #### C EDGARDO #### [facility] [address] [place] [address] Dr. Saray Souza HCT 43.6 % Normal 36.0-48.0 [facility] Comment on above: Performed By: #### C EDGARDO #### [facility] [address] [place] [address] Dr. Saray Souza HGB 14.7 g/dl Normal 12.0-16.0 [facility] Comment on above: Performed By: #### C EDGARDO #### [facility] [address] [place] [address] Dr. Saray Souza LYMPHM # 1.55 103/ul Normal 1.20-3.80 [facility] Comment on above: Performed By: #### C EDGARDO #### [facility] [address] [place] [address] Dr. Saray Souza LYMPHM% 6.0 % Critically low 20.5-60.0 [facility] Comment on above: Performed By: #### C EDGARDO #### [facility] [address] [place] [address] Dr. Saray Souza MCH 30.3 pg Normal 26.7-34.0 [facility] Comment on above: Performed By: #### C EDGARDO #### [facility] [address] [place] [address] Dr. Saray Souza MCHC 33.7 g/dl Normal 29.9-35.2 [facility] Comment on above: Performed By: #### C BCMAN #### [facility] [address] [place] [address] Dr. Saray Souza MCV 89.9 fL Normal 81.0-99.0 [facility] Comment on above: Performed By: #### C BCPRESLEY #### [facility] [address] [place] [address] Dr. Saray Souza METAMYELOCYTE # Normal [facility] Comment on above: Performed By: #### C EDGARDO #### [facility] [address] [place] [address] Dr. Saray Souza METAMYELOCYTE % Normal [facility] Comment on above: Performed By: #### C EDGARDO #### [facility] [address] [place] [address] Dr. Saray Souza MONOM# 2.06 103/ul Critically high 0.30-0.80 [facility] Comment on above: Performed By: #### C EDGARDO #### [facility] [address] [place] [address] Dr. Saray Souza MONOM% 8.0 % Normal 1.7-12.0 [facility] Comment on above: Performed By: #### C EDGARDO #### [facility] [address] [place] [address] Dr. Saray Souza MPV 8.8 fL Critically low 9.5-13.5 [facility] Comment on above: Performed By: #### C BCMAN #### [facility] [address] [place] [address] Dr. Saray Souza MYELOCYTE # Normal [facility] Comment on above: Performed By: #### C BCMAN #### [facility] [address] [place] [address] Dr. Saray Souza MYELOCYTE % Normal [facility] Comment on above: Performed By: #### C BCPRESLEY #### [facility] [address] [place] [address] Dr. Saray Souza NRBC Normal [facility] Comment on above: Performed By: #### C BCMAN #### [facility] [address] [address] [address] Saray Souza PLT 397 103/ul Normal 150-450 [facility] Comment on above: Performed By: #### C BCMAN #### [facility] [address] [address] [address] Saray Souza RBC 4.85 106/ul Normal 4.20-5.40 [facility] Comment on above: Performed By: #### C BCMAN #### [facility] [address] [address] [address] Saray Souza RDW 12.0 % Normal 11.0-15.0 [facility] Comment on above: Performed By: #### C BCMAN #### [facility] [address] [address] [address] Saray Souza SEG # 21.93 103/ul Critically high 1.40-6.50 [facility] Comment on above: Performed By: #### C BCMAN #### [facility] [address] [address] [address] Saray Souza SEG % 85.0 % Critically high 43.0-75.0 [facility] Comment on above: Performed By: #### C BCMAN #### [facility] [address] [address] [address] Saray Souza WBC 25.8 103/ul Critically high 4.0-11.0 [facility] Comment on above: Performed By: #### C BCMAN #### [facility] [id number] Saray Souza CULTURE URINEon 04-17-2023 CULTURE URINE Culture Observations : LORENZO TO FOLLOW. Isolate 1 Enterococcus faecalis 20,000 cfu/mL of Normal [facility] Comment on above: Performed By: #### C BC #### [facility] [address] [address] [address] Saray Souza ER URINE PROFILEon 3 Bilirubin Ql (U) Negative Normal NEGATIVE [facility] Comment on above: Performed By: #### C BC #### [facility] [address] [place] [address] Dr. Saray Souza Clarity (U) CLEAR Normal CLEAR [facility] Comment on above: Performed By: #### C BC #### [facility] [address] [place] [address] Dr. Saray Souza Color (U) LT. YELLOW Normal YELLOW [facility] Comment on above: Performed By: #### C BC #### [facility] [address] [place] [address] Dr. Saray JHA A micrscopic examination will be performed if indicated. Normal [facility] Comment on above: Performed By: #### C BC #### [facility] [address] [place] [address] Dr. Saray Souza Glucose Ql (U) Negative Normal NEGATIVE [facility] Comment on above: Performed By: #### C BC #### [facility] [address] [place] [address] Dr. Saray Souza Hemoglobin Ql (U) Negative Normal NEGATIVE [facility] Comment on above: Performed By: #### C BC #### [facility] [address] [place] [address] Dr. Saray Souza Ketones Ql (U) Negative Normal NEGATIVE [facility] Comment on above: Performed By: #### C BC #### [facility] [address] [place] [address] Dr. Saray Souza LEUKOCYTES SMALL Abnormal NEGATIVE [facility] Comment on above: Performed By: #### C BC #### [facility] [address] [place] [address] Dr. Sraay Souza Nitrite Ql (U) Negative Normal NEGATIVE [facility] Comment on above: Performed By: #### C BC #### [facility] [address] [place] [address] Dr. Saray Souza pH (U) 6.5 [pH] Normal 5-9 [facility] Comment on above: Performed By: #### C BC #### [facility] [address] [place] [address] Dr. Saray Souza SPEC GRAVITY 1.025 Normal 1.005-<=1.025 [facility] Comment on above: Performed By: #### C BC #### [facility] [address] [place] [address] Dr. Saray Souza UA PROTEIN Negative Normal NEGATIVE/ TRACE [facility] Comment on above: Performed By: #### C BC #### [facility] [address] [place] [address] Dr. Saray Souaz UR MICRO IND INDICATED Normal [facility] Comment on above: Performed By: #### C BC #### [facility] [address] [place] [address] Dr. Saray Souza Urobilinogen Qn (U) 0.2 {Janine'U}/dL Normal 0.2 - 1. 0 [facility] Comment on above: Performed By: #### C BC #### [facility] [address] [place] [address] Dr. Saray Souza URon 04-17-2023 , QUAL Negative Normal NEGATIVE [facility] Comment on above: Performed By: #### C BC #### [facility] [address] [place] [address] Dr. Saray Souza PROF 14(COMP METB)on 023 Albumin [Mass/Vol] 3.0 g/dL Critically low 3.4-5.0 [facility] Comment on above: Performed By: #### I NSULIN #### [facility] [address] [place] [address] Dr. Saray Souza Albumin/Globulin [Mass ratio] 0.9 {ratio} Normal [facility] Comment on above: Performed By: #### I NSULIN #### [facility] [address] [place] [address] Dr. Saray Souza ALP [Catalytic activity/Vol] 54 U/L Normal 46-116 [facility] Comment on above: Performed By: #### I NSULIN #### [facility] [address] [place] [address] Dr. Saray Souza ALT [Catalytic activity/Vol] 27 U/L Normal 14-59 [facility] Comment on above: Performed By: #### I NSULIN #### [facility] [address] [address] [address] Saray Souza Anion gap [Moles/Vol] 12.9 mmol/L Normal [facility] Comment on above: Performed By: #### I NSULIN #### [facility] [address] [address] [address] Saray Souza AST [Catalytic activity/Vol] 12 U/L Critically low 15-37 [facility] Comment on above: Performed By: #### I NSULIN #### [facility] [address] [address] [address] Saray Souza Bilirubin [Mass/Vol] 0.3 mg/dL Normal 0.2-1.0 [facility] Comment on above: Performed By: #### I NSULIN #### [facility] [address] [address] [address] Saray Souza Calcium [Mass/Vol] 8.1 mg/dL Critically low 8.5-10.1 [facility] Comment on above: Performed By: #### I NSULIN #### [facility] [address] [address] [address] Saray Souza Chloride [Moles/Vol] 102 mmol/L Normal 98-107 [facility] Comment on above: Performed By: #### I NSULIN #### [facility] [address] [address] [address] Saray Souza CO2 [Moles/Vol] 26.2 mmol/L Normal 21.0-32.0 [facility] Comment on above: Performed By: #### I NSULIN #### [facility] [address] [address] [address] Saray Souza Creatinine [Mass/Vol] 0.87 mg/dL Normal 0.55-1.02 [facility] Comment on above: Performed By: #### I NSULIN #### [facility] [address] [address] [address] Saray Souza EGFR-AF ANGUILLAN >60 Normal >=60 [facility] Comment on above: Performed By: #### I NSULIN #### [facility] [address] [address] [address] Saray Souza EGFR-NON AF ANGUILLAN >60 Normal >=60 [facility] Comment on above: Performed By: #### I NSULIN #### [facility] [address] [address] [address] Saray Souza Globulin (S) [Mass/Vol] 3.2 g/dL Normal [facility] Comment on above: Performed By: #### I NSULIN #### [facility] [address] [address] [address] Saray Souza Glucose [Mass/Vol] 206 mg/dL Critically high 74-106 [facility] Comment on above: Performed By: #### I NSULIN #### [facility] [address] [place] [address] Dr. Saray Souza Potassium [Moles/Vol] 4.1 mmol/L Normal 3.5-5.1 [facility] Comment on above: Performed By: #### I NSULIN #### [facility] [address] [address] [address] Saray Souza Protein [Mass/Vol] 6.2 g/dL Critically low 6.4-8.2 [facility] Comment on above: Performed By: #### I NSULIN #### [facility] [address] [place] [address] Dr. Saray Souza Sodium [Moles/Vol] 137 mmol/L Normal 136-145 [facility] Comment on above: Performed By: #### I NSULIN #### [facility] [address] [address] [address] Saray Souza Urea nitrogen [Mass/Vol] 19.0 mg/dL Critically high 7.0-18.0 [facility] Comment on above: Performed By: #### I NSULIN #### [facility] [address] [address] [address] Saray Souza Urea nitrogen/Creatinine [Mass ratio] 21.8 mg/mg Normal [facility] Comment on above: Performed By: #### I NSULIN #### [facility] [address] [place] [address] Dr. Saray Souza TSHon 04-17-2023 TSH 0.553 uIU/mL Normal 0.358-3.740 [facility] Comment on above: Performed By: #### I NSULIN #### [facility] [address] [place] [address] Dr. Saray Souza URINE MICROSCOPIC ONLYon BACTERIA TRACE Abnormal NONE SEEN [facility] Comment on above: Performed By: #### C BC #### [facility] [address] [place] [address] Dr. Saray Souza Bacteria identified Cx Nom (U) INDICATED Normal [facility] Comment on above: Performed By: #### C BC #### [facility] [address] [place] [address] Dr. Saray Souza CAST NONE SEEN Normal NONE SEEN [facility] Comment on above: Performed By: #### C BC #### [facility] [address] [place] [address] Dr. Saray Souza Crystals LM Nom (Urine sed) NONE SEEN Normal NONE SEEN [facility] Comment on above: Performed By: #### C BC #### [facility] [address] [place] [address] Dr. Saray Souza Epithelial cells LM Ql (Urine sed) RARE Normal NONE SEEN /RARE [facility] Comment on above: Performed By: #### C BC #### [facility] [address] [place] [address] Dr. Saray Souza MUCOUS NONE SEEN Normal NONE SEEN [facility] Comment on above: Performed By: #### C BC #### [facility] [address] [place] [address] Dr. Saray Souza RBC 0-2 Normal 0-2 [facility] Comment on above: Performed By: #### C BC #### [facility] [address] [place] [address] Dr. Saray Souza WBC 5-10 Abnormal NONE SEEN [facility] Comment on above: Performed By: #### C BC #### [facility] [address] [place], [place] [address] Dr. Saray Souza XR CHEST 2 Von [...] CAROL RAMIREZ Date: 2023-04-17 10:45 Normal [facility] INSULINon 04-07-2023 Insulin 11.3 uIU/mL Normal 2.6-24.9 [facility] Comment on above: Performed By: #### I NSULIN #### [facility] [address] [id number] [address] Saray Souza US KIDNEYS BLADDERon 023 [...] NANDINI MAYER Date: 2023-04-04 08:22 Normal [facility] INSULINon 04-02-2023 Insulin 37.5 uIU/mL Critically high 2.6-24.9 [facility] Comment on above: Performed By: #### I NSULIN #### [facility] [address] [place] [address] Dr. Saray Souza CBC AUTO DIFFon 04-01-2023 BASO # 0.0 103/ul Normal 0.0-0.1 [facility] Comment on above: Performed By: #### C BC #### [facility] [address] [place] [address] Dr. Saray Souza Basophils/100 WBC (Bld) 0.5 % Normal 0.2-2.0 [facility] Comment on above: Performed By: #### C BC #### [facility] [address] [place] [address] Dr. Saray Souza EO # 0.2 103/ul Normal 0.0-0.7 [facility] Comment on above: Performed By: #### C BC #### [facility] [address] [place] [address] Dr. Saray Souza Eosinophils/100 WBC (Bld) 2.3 % Normal 0.9-7.0 [facility] Comment on above: Performed By: #### C BC #### [facility] [address] [place] [address] Dr. Saray Souza Erythrocyte distribution width (RBC) [Ratio] 11.9 % Normal 11.0-15.0 [facility] Comment on above: Performed By: #### C BC #### [facility] [address] [place] [address] Dr. Saray Souza Hematocrit (Bld) [Volume fraction] 42.2 % Normal 36.0-48.0 [facility] Comment on above: Performed By: #### C BC #### [facility] [address] [place] [address] Dr. Saray Souza Hemoglobin (Bld) [Mass/Vol] 13.7 g/dL Normal 12.0-16.0 [facility] Comment on above: Performed By: #### C BC #### [facility] [address] [place] [address] Dr. Saray Souza IG # 0.02 10e3/ul Normal 0.00-0.03 [facility] Comment on above: Performed By: #### C BC #### [facility] [address] [place] [address] Dr. Saray Souza IG % 0.3 % Normal 0.0-0.5 [facility] Comment on above: Performed By: #### C BC #### [facility] [address] [place] [address] Dr. Saray Souza LYMPH # 1.6 103/ul Normal 1.2-3.8 [facility] Comment on above: Performed By: #### C BC #### [facility] [address] [place] [address] Dr. Saray Souza Lymphocytes/100 WBC (Bld) 21.5 % Normal 20.5-60.0 [facility] Comment on above: Performed By: #### C BC #### [facility] [address] [place] [address] Dr. Saray Souza MANUAL DIFF REQ NO Normal [facility] Comment on above: Performed By: #### C BC #### [facility] [address] [place] [address] Dr. Saray Souza MCH (RBC) [Entitic mass] 30.0 pg Normal 26.7-34.0 [facility] Comment on above: Performed By: #### C BC #### [facility] [address] [place] [address] Dr. Saray Souza MCHC (RBC) [Mass/Vol] 32.5 g/dL Normal 29.9-35.2 [facility] Comment on above: Performed By: #### C BC #### [facility] [address] [place] [address] Dr. Saray Souza MCV (RBC) [Entitic vol] 92.5 fL Normal 81.0-99.0 [facility] Comment on above: Performed By: #### C BC #### [facility] [address] [place] [address] Dr. Saray Souza MONO # 0.7 103/ul Normal 0.3-0.8 [facility] Comment on above: Performed By: #### C BC #### [facility] [address] [place] [address] Dr. Saray Souza Monocytes/100 WBC (Bld) 9.6 % Normal 1.7-12.0 [facility] Comment on above: Performed By: #### C BC #### [facility] [address] [place] [address] Dr. Saray Souza NEUT # 5.0 103/ul Normal 1.4-6.5 [facility] Comment on above: Performed By: #### C BC #### [facility] [address] [place] [address] Dr. Saray Souza Neutrophils/100 WBC (Bld) 65.8 % Normal 43.0-75.0 [facility] Comment on above: Performed By: #### C BC #### [facility] [address] [place] [address] Dr. Saray Souza Platelet mean volume (Bld) [Entitic vol] 8.9 fL Critically low 9.5-13.5 [facility] Comment on above: Performed By: #### C BC #### [facility] [address] [place] [address] Dr. Saray Souza PLT 293 103/ul Normal 150-450 [facility] Comment on above: Performed By: #### C BC #### [facility] [address] [place] [address] Dr. Saray Souza RBC 4.56 106/ul Normal 4.20-5.40 [facility] Comment on above: Performed By: #### C BC #### [facility] [address] [place] [address] Dr. Saray Souza WBC 7.5 103/ul Normal 4.0-11.0 [facility] Comment on above: Performed By: #### C BC #### [facility] [address] [place] [address] Dr. Saray Souza CULTURE URINEon 04-01-2023 CULTURE URINE Culture Observations : MODERATE GROWTH OF MIXED GENITAL CARMELO. NO POTENTIAL PATHOGENS SEEN. Normal [facility] Comment on above: Performed By: #### C BC #### [facility] [address] [place] [address] Dr. Saray Souza FREE THYROXINE INDEX T7on FTI 2.51 Normal 1.30-4.50 [facility] Comment on above: Performed By: #### I NSULIN #### [facility] [address] [place] [address] Dr. Saray Souza T3U 33.0 % Normal 30.0-39.0 [facility] Comment on above: Performed By: #### I CURLYULIN #### [facility] [address] [place] [address] Dr. Saray Souza T4 [Mass/Vol] 7.60 ug/dL Normal 4.80-13.90 [facility] Comment on above: Performed By: #### I ANA #### [facility] [address] [place] [address] Dr. Saray Souza IRONon 04-01-2023 Iron [Mass/Vol] 151.0 ug/dL Normal 50.0-170.0 [facility] Comment on above: Performed By: #### C EDGARDO #### [facility] [address] [place] [address] Dr. Saray Souza PROF 14(COMP METB)on 023 Albumin [Mass/Vol] 3.7 g/dL Normal 3.4-5.0 [facility] Comment on above: Performed By: #### C EDGARDO #### [facility] [address] [place] [address] Dr. Saray Souza Albumin/Globulin [Mass ratio] 1.1 {ratio} Normal [facility] Comment on above: Performed By: #### C EDGARDO #### [facility] [address] [place] [address] Dr. Saray Souza ALP [Catalytic activity/Vol] 81 U/L Normal 46-116 [facility] Comment on above: Performed By: #### C EDGARDO #### [facility] [address] [place] [address] Dr. Saray Souza ALT [Catalytic activity/Vol] 33 U/L Normal 14-59 [facility] Comment on above: Performed By: #### C EDGARDO #### [facility] [address] [address] [address] Saray Souza Anion gap [Moles/Vol] 10.2 mmol/L Normal [facility] Comment on above: Performed By: #### C EDGARDO #### [facility] [address] [address] [address] Saray Souza AST [Catalytic activity/Vol] 22 U/L Normal 15-37 [facility] Comment on above: Performed By: #### C EDGARDO #### [facility] [address] [address] [address] Saray Souza Bilirubin [Mass/Vol] 0.3 mg/dL Normal 0.2-1.0 [facility] Comment on above: Performed By: #### C EDGARDO #### [facility] [address] [place] [address] Dr. Saray Souza Calcium [Mass/Vol] 8.6 mg/dL Normal 8.5-10.1 [facility] Comment on above: Performed By: #### C EDGARDO #### [facility] [address] [place] [address] Dr. Saray Souza Chloride [Moles/Vol] 105 mmol/L Normal 98-107 [facility] Comment on above: Performed By: #### C EDGARDO #### [facility] [address] [place] [address] Dr. Saray Souza CO2 [Moles/Vol] 30.4 mmol/L Normal 21.0-32.0 [facility] Comment on above: Performed By: #### C EDGARDO #### [facility] [address] [place] [address] Dr. Saray Souza Creatinine [Mass/Vol] 0.72 mg/dL Normal 0.55-1.02 [facility] Comment on above: Performed By: #### C EDGARDO #### [facility] [address] [place] [address] Dr. Saray Souza EGFR-AF ANGUILLAN >60 Normal >=60 [facility] Comment on above: Performed By: #### C EDGARDO #### [facility] [address] [place] [address] Dr. Saray Souza EGFR-NON AF ANGUILLAN >60 Normal >=60 [facility] Comment on above: Performed By: #### C EDGARDO #### [facility] [address] [place] [address] Dr. Saray Souza Globulin (S) [Mass/Vol] 3.5 g/dL Normal [facility] Comment on above: Performed By: #### C EDGARDO #### [facility] [address] [address] [address] Saray Souza Glucose [Mass/Vol] 89 mg/dL Normal 74-106 [facility] Comment on above: Performed By: #### C EDGARDO #### [facility] [address] [place] [address] Dr. Saray Souza Potassium [Moles/Vol] 3.6 mmol/L Normal 3.5-5.1 [facility] Comment on above: Performed By: #### C EDGARDO #### [facility] [address] [place] [address] Dr. Saray Souza Protein [Mass/Vol] 7.2 g/dL Normal 6.4-8.2 [facility] Comment on above: Performed By: #### C EDGARDO #### [facility] [address] [place] [address] Dr. Saray Souza Sodium [Moles/Vol] 142 mmol/L Normal 136-145 [facility] Comment on above: Performed By: #### C EDGARDO #### [facility] [address] [place] [address] Dr. Saray Souza Urea nitrogen [Mass/Vol] 12.0 mg/dL Normal 7.0-18.0 [facility] Comment on above: Performed By: #### C EDGARDO #### [facility] [address] [place] [address] Dr. Saray Souza Urea nitrogen/Creatinine [Mass ratio] 16.7 mg/mg Normal [facility] Comment on above: Performed By: #### C EDGARDO #### [facility] Laboratory [address] [place] [address] Dr. Saray Souza TSHon 04-01-2023 TSH 1.708 uIU/mL Normal 0.358-3.740 [facility] Comment on above: Performed By: #### I NSULIN #### [facility] [address] [place] [address] Dr. Saray Souza UA RANDOM W/MICROSCOPICon BACTERIA SMALL Abnormal NONE SEEN [facility] Comment on above: Performed By: #### I NSULIN #### [facility] [address] [place] [address] Dr. Saray Souza Bilirubin Ql (U) Negative Normal NEGATIVE [facility] Comment on above: Performed By: #### I NSULIN #### [facility] [address] [place] [address] Dr. Saray Souza CAST NONE SEEN Normal NONE SEEN [facility] Comment on above: Performed By: #### I NSULIN #### [facility] [address] [place] [address] Dr. Saray Souza Clarity (U) CLEAR Normal CLEAR [facility] Comment on above: Performed By: #### I NSULIN #### [facility] [address] [place] [address] Dr. Saray Souza Color (U) YELLOW Normal YELLOW [facility] Comment on above: Performed By: #### I NSULIN #### [facility] [address] [place] [address] Dr. Saray Souza Crystals LM Nom (Urine sed) NONE SEEN Normal NONE SEEN [facility] Comment on above: Performed By: #### I NSULIN #### [facility] [address] [place] [address] Dr. Saray Souza Epithelial cells LM Ql (Urine sed) FEW Abnormal NONE SEEN /RARE [facility] Comment on above: Performed By: #### I NSULIN #### [facility] [address] [place] [address] Dr. Saray Souza Glucose Ql (U) Negative Normal NEGATIVE [facility] Comment on above: Performed By: #### I NSULIN #### [facility] [address] [place] [address] Dr. Saray Souza Hemoglobin Ql (U) Negative Normal NEGATIVE [facility] Comment on above: Performed By: #### I NSULIN #### [facility] [address] [address] [address] Saray Souza Ketones Ql (U) TRACE Abnormal NEGATIVE [facility] Comment on above: Performed By: #### I NSULIN #### [facility] [address] [place] [address] Dr. Saray Souza LEUKOCYTES SMALL Abnormal NEGATIVE [facility] Comment on above: Performed By: #### I NSULIN #### [facility] [address] [place] [address] Dr. Saray Souza MUCOUS NONE SEEN Normal NONE SEEN [facility] Comment on above: Performed By: #### I NSULIN #### [facility] [address] [place] [address] Dr. Saray Souza Nitrite Ql (U) Negative Normal NEGATIVE [facility] Comment on above: Performed By: #### I NSULIN #### [facility] [address] [place] [address] Dr. Saray Souza pH (U) 5.5 [pH] Normal 5-9 [facility] Comment on above: Performed By: #### I NSULIN #### [facility] [address] [place] [address] Dr. Saray Souza RBC 0-2 Normal 0-2 [facility] Comment on above: Performed By: #### I NSULIN #### [facility] [address] [place] [address] Dr. Saray Souza SPEC GRAVITY >=1.030 Abnormal 1.005-<=1.025 [facility] Comment on above: Performed By: #### I NSULIN #### [facility] [address] [place] [address] Dr. Saray Souza UA PROTEIN Negative Normal NEGATIVE/ TRACE [facility] Comment on above: Performed By: #### I NSULIN #### [facility] [address] [place] [address] Dr. Saray Souza Urobilinogen Qn (U) 0.2 {Janine'U}/dL Normal 0.2 - 1. 0 [facility] Comment on above: Performed By: #### I NSULIN #### [facility] [address] [place] [address] Dr. Saray Souza WBC 5-10 Abnormal NONE SEEN [facility] Comment on above: Performed By: #### I NSULIN #### [facility] [address] [place] [address] Dr. Saray Souza INSULINon 02-14-2023 Insulin 12.8 uIU/mL Normal 2.6-24.9 [facility] Comment on above: Performed By: #### C BC #### [facility] [address] [place] [address] Dr. Saray Souza CBC AUTO DIFFon 02-13-2023 BASO # 0.0 103/ul Normal 0.0-0.1 [facility] Comment on above: Performed By: #### C BC #### [facility] [address] [place] [address] Dr. Saray Souza Basophils/100 WBC (Bld) 0.4 % Normal 0.2-2.0 [facility] Comment on above: Performed By: #### C BC #### [facility] [address] [place] [address] Dr. Saray Souza EO # 0.1 103/ul Normal 0.0-0.7 [facility] Comment on above: Performed By: #### C BC #### [facility] [address] [place] [address] Dr. Saray Souza Eosinophils/100 WBC (Bld) 1.6 % Normal 0.9-7.0 [facility] Comment on above: Performed By: #### C BC #### [facility] [address] [place] [address] Dr. Saray Souza Erythrocyte distribution width (RBC) [Ratio] 11.9 % Normal 11.0-15.0 [facility] Comment on above: Performed By: #### C BC #### [facility] [address] [place] [address] Dr. Saray Souza Hematocrit (Bld) [Volume fraction] 41.9 % Normal 36.0-48.0 [facility] Comment on above: Performed By: #### C BC #### [facility] [address] [place] [address] Dr. Saray Souza Hemoglobin (Bld) [Mass/Vol] 13.7 g/dL Normal 12.0-16.0 [facility] Comment on above: Performed By: #### C BC #### [facility] [address] [place] [address] Dr. Saray Souza IG # 0.02 10e3/ul Normal 0.00-0.03 [facility] Comment on above: Performed By: #### C BC #### [facility] [address] [place] [address] Dr. Saray Souza IG % 0.3 % Normal 0.0-0.5 [facility] Comment on above: Performed By: #### C BC #### [facility] [address] [place] [address] Dr. Saray Souza LYMPH # 1.4 103/ul Normal 1.2-3.8 [facility] Comment on above: Performed By: #### C BC #### [facility] [address] [place] [address] Dr. Saray Souza Lymphocytes/100 WBC (Bld) 18.6 % Critically low 20.5-60.0 [facility] Comment on above: Performed By: #### C BC #### [facility] [address] [place] [address] Dr. Saray Souza MANUAL DIFF REQ NO Normal [facility] Comment on above: Performed By: #### C BC #### [facility] [address] [place] [address] Dr. Saray Souza MCH (RBC) [Entitic mass] 29.9 pg Normal 26.7-34.0 [facility] Comment on above: Performed By: #### C BC #### [facility] [address] [place] [address] Dr. Saray Souza MCHC (RBC) [Mass/Vol] 32.7 g/dL Normal 29.9-35.2 [facility] Comment on above: Performed By: #### C BC #### [facility] [address] [address] [address] Saray Souza MCV (RBC) [Entitic vol] 91.5 fL Normal 81.0-99.0 [facility] Comment on above: Performed By: #### C BC #### [facility] [address] [address] [address] Saray Souza MONO # 0.6 103/ul Normal 0.3-0.8 [facility] Comment on above: Performed By: #### C BC #### [facility] [address] [place] [address] Dr. Saray Souza Monocytes/100 WBC (Bld) 8.3 % Normal 1.7-12.0 [facility] Comment on above: Performed By: #### C BC #### [facility] [address] [place] [address] Dr. Saray Souza NEUT # 5.5 103/ul Normal 1.4-6.5 [facility] Comment on above: Performed By: #### C BC #### [facility] [address] [place] [address] Dr. Saray Souza Neutrophils/100 WBC (Bld) 70.8 % Normal 43.0-75.0 [facility] Comment on above: Performed By: #### C BC #### [facility] [address] [place] [address] Dr. Saray Souza Platelet mean volume (Bld) [Entitic vol] 9.0 fL Critically low 9.5-13.5 [facility] Comment on above: Performed By: #### C BC #### [facility] [address] [place] [address] Dr. Saray Souza PLT 271 103/ul Normal 150-450 [facility] Comment on above: Performed By: #### C BC #### [facility] [address] [place] [address] Dr. Saray Souza RBC 4.58 106/ul Normal 4.20-5.40 [facility] Comment on above: Performed By: #### C BC #### [facility] [address] [address] [address] Saray Souza WBC 7.7 103/ul Normal 4.0-11.0 [facility] Comment on above: Performed By: #### C BC #### [facility] [address] [address] [address] Saray Souza FREE THYROXINE INDEX T7on FTI 2.56 Normal 1.30-4.50 [facility] Comment on above: Performed By: #### I NSULIN #### [facility] [address] [place] [address] Dr. Saray Souza T3U 36.0 % Normal 30.0-39.0 [facility] Comment on above: Performed By: #### I NSULIN #### [facility] [address] [place] [address] Dr. Saray Souza T4 [Mass/Vol] 7.10 ug/dL Normal 4.80-13.90 [facility] Comment on above: Performed By: #### I NSULIN #### [facility] [address] [place] [address] Dr. Saray Souza IRONon 02-13-2023 Iron [Mass/Vol] 130.0 ug/dL Normal 50.0-170.0 [facility] Comment on above: Performed By: #### C BCMAN #### [facility] [address] [place] [address] Dr. Saray Souza PROF 14(COMP METB)on 023 Albumin [Mass/Vol] 3.8 g/dL Normal 3.4-5.0 [facility] Comment on above: Performed By: #### I NSULIN #### [facility] [address] [place] [address] Dr. Saray Souza Albumin/Globulin [Mass ratio] 1.2 {ratio} Normal [facility] Comment on above: Performed By: #### I NSULIN #### [facility] [address] [place] [address] Dr. Saray Souza ALP [Catalytic activity/Vol] 82 U/L Normal 46-116 [facility] Comment on above: Performed By: #### I NSULIN #### [facility] [address] [address] [address] Saray Souza ALT [Catalytic activity/Vol] 25 U/L Normal 14-59 [facility] Comment on above: Performed By: #### I NSULIN #### [facility] [address] [address] [address] Saray Souza Anion gap [Moles/Vol] 12.7 mmol/L Normal [facility] Comment on above: Performed By: #### I NSULIN #### [facility] [address] [address] [address] Saray Souza AST [Catalytic activity/Vol] 19 U/L Normal 15-37 [facility] Comment on above: Performed By: #### I NSULIN #### [facility] [address] [place] [address] Dr. Saray Souza Bilirubin [Mass/Vol] 0.3 mg/dL Normal 0.2-1.0 [facility] Comment on above: Performed By: #### I NSULIN #### [facility] [address] [address] [address] Saray Souza Calcium [Mass/Vol] 8.8 mg/dL Normal 8.5-10.1 [facility] Comment on above: Performed By: #### I NSULIN #### [facility] [address] [address] [address] Saray Souza Chloride [Moles/Vol] 101 mmol/L Normal 98-107 [facility] Comment on above: Performed By: #### I NSULIN #### [facility] [address] [address] [address] Saray Souza CO2 [Moles/Vol] 27.3 mmol/L Normal 21.0-32.0 [facility] Comment on above: Performed By: #### I NSULIN #### [facility] [address] [address] [address] Saray Souza Creatinine [Mass/Vol] 0.69 mg/dL Normal 0.55-1.02 [facility] Comment on above: Performed By: #### I NSULIN #### [facility] [address] [address] [address] Saray Souza EGFR-AF ANGUILLAN >60 Normal >=60 [facility] Comment on above: Performed By: #### I NSULIN #### [facility] [address] [address] [address] Saray Souza EGFR-NON AF ANGUILLAN >60 Normal >=60 [facility] Comment on above: Performed By: #### I NSULIN #### [facility] [address] [address] [address] Saray Souza Globulin (S) [Mass/Vol] 3.3 g/dL Normal [facility] Comment on above: Performed By: #### I NSULIN #### [facility] [address] [address] [address] Saray Souza Glucose [Mass/Vol] 83 mg/dL Normal 74-106 [facility] Comment on above: Performed By: #### I NSULIN #### [facility] [address] [address] [address] Saray Souza Potassium [Moles/Vol] 4.0 mmol/L Normal 3.5-5.1 [facility] Comment on above: Performed By: #### I NSULIN #### [facility] [address] [place] [address] Dr. Saray Souza Protein [Mass/Vol] 7.1 g/dL Normal 6.4-8.2 [facility] Comment on above: Performed By: #### I NSULIN #### [facility] [address] [address] [address] Saray Souza Sodium [Moles/Vol] 137 mmol/L Normal 136-145 [facility] Comment on above: Performed By: #### I NSULIN #### [facility] [address] [address] [address] Saray Souza Urea nitrogen [Mass/Vol] 10.0 mg/dL Normal 7.0-18.0 [facility] Comment on above: Performed By: #### I NSULIN #### [facility] [address] [place] [address] Dr. Saray Souza Urea nitrogen/Creatinine [Mass ratio] 14.5 mg/mg Normal [facility] Comment on above: Performed By: #### I NSULIN #### [facility] [address] [place] [address] Dr. Saray Souza TSHon 02-13-2023 TSH 2.745 uIU/mL Normal 0.358-3.740 [facility] Comment on above: Performed By: #### I NSULIN #### [facility] [address] [place] [address] Dr. Saray Souza AMYLASEon 02-04-2023 Amylase [Catalytic activity/Vol] 45 U/L Normal 25-115 [facility] Comment on above: Performed By: #### T SH, CMP, HSTROPN, LIPA, KELLE #### [facility] [address] [place] [address] Dr. Saray Souza CBC AUTO DIFFon 02-04-2023 BASO # 0.0 103/ul Normal 0.0-0.1 [facility] Comment on above: Performed By: #### C BC #### [facility] [address] [place] [address] Dr. Saray Souza Basophils/100 WBC (Bld) 0.4 % Normal 0.2-2.0 [facility] Comment on above: Performed By: #### C BC #### [facility] [address] [place] [address] Dr. Saray Souza EO # 0.1 103/ul Normal 0.0-0.7 [facility] Comment on above: Performed By: #### C BC #### [facility] [address] [place] [address] Dr. Saray Souza Eosinophils/100 WBC (Bld) 1.7 % Normal 0.9-7.0 [facility] Comment on above: Performed By: #### C BC #### [facility] [address] [place] [address] Dr. Saray Souza Erythrocyte distribution width (RBC) [Ratio] 12.0 % Normal 11.0-15.0 [facility] Comment on above: Performed By: #### C BC #### [facility] [address] [place] [address] Dr. Saray Souza Hematocrit (Bld) [Volume fraction] 42.3 % Normal 36.0-48.0 [facility] Comment on above: Performed By: #### C BC #### [facility] [address] [place] [address] Dr. Saray Souza Hemoglobin (Bld) [Mass/Vol] 13.9 g/dL Normal 12.0-16.0 [facility] Comment on above: Performed By: #### C BC #### [facility] [address] [place] [address] Dr. Saray Souza IG # 0.03 10e3/ul Normal 0.00-0.03 [facility] Comment on above: Performed By: #### C BC #### [facility] [address] [place] [address] Dr. Saray Souza IG % 0.4 % Normal 0.0-0.5 [facility] Comment on above: Performed By: #### C BC #### [facility] [address] [place] [address] Dr. Saray Souza LYMPH # 1.5 103/ul Normal 1.2-3.8 [facility] Comment on above: Performed By: #### C BC #### [facility] [address] [place] [address] Dr. Saray Souza Lymphocytes/100 WBC (Bld) 20.4 % Critically low 20.5-60.0 [facility] Comment on above: Performed By: #### C BC #### [facility] [address] [place] [address] Dr. Saray Souza MANUAL DIFF REQ NO Normal [facility] Comment on above: Performed By: #### C BC #### [facility] [address] [place] [address] Dr. Saray Souza MCH (RBC) [Entitic mass] 30.0 pg Normal 26.7-34.0 [facility] Comment on above: Performed By: #### C BC #### [facility] [address] [address] [address] Saray Souza MCHC (RBC) [Mass/Vol] 32.9 g/dL Normal 29.9-35.2 [facility] Comment on above: Performed By: #### C BC #### [facility] [address] [place] [address] Dr. Saray Souza MCV (RBC) [Entitic vol] 91.2 fL Normal 81.0-99.0 [facility] Comment on above: Performed By: #### C BC #### [facility] [address] [place] [address] Dr. Saray Souza MONO # 0.6 103/ul Normal 0.3-0.8 [facility] Comment on above: Performed By: #### C BC #### [facility] [address] [place] [address] Dr. Saray Souza Monocytes/100 WBC (Bld) 7.7 % Normal 1.7-12.0 [facility] Comment on above: Performed By: #### C BC #### [facility] [address] [place] [address] Dr. Saray Souza NEUT # 5.2 103/ul Normal 1.4-6.5 [facility] Comment on above: Performed By: #### C BC #### [facility] [address] [place] [address] Dr. Saray Souza Neutrophils/100 WBC (Bld) 69.4 % Normal 43.0-75.0 [facility] Comment on above: Performed By: #### C BC #### [facility] [address] [place] [address] Dr. Saray Souza Platelet mean volume (Bld) [Entitic vol] 9.0 fL Critically low 9.5-13.5 [facility] Comment on above: Performed By: #### C BC #### [facility] [address] [place] [address] Dr. Saray Souza PLT 292 103/ul Normal 150-450 [facility] Comment on above: Performed By: #### C BC #### [facility] [address] [place] [address] Dr. Saray Souza RBC 4.64 106/ul Normal 4.20-5.40 [facility] Comment on above: Performed By: #### C BC #### [facility] [address] [place] [address] Dr. Saray Souza WBC 7.5 103/ul Normal 4.0-11.0 [facility] Comment on above: Performed By: #### C BC #### [facility] [address] [place] [address] Dr. Saray Souza CULTURE URINEon 02-04-2023 CULTURE URINE Culture Observations : LIGHT GROWTH OF MIXED GENITAL CARMELO. NO POTENTIAL PATHOGENS SEEN. Normal [facility] Comment on above: Performed By: #### C BC #### [facility] [address] [place] [address] Dr. Saray Souza ER URINE PROFILEon 3 Bilirubin Ql (U) Negative Normal NEGATIVE [facility] Comment on above: Performed By: #### C BC #### [facility] [address] [place] [address] Dr. Saray Souza Clarity (U) CLEAR Normal CLEAR [facility] Comment on above: Performed By: #### C BC #### [facility] [address] [place] [address] Dr. Saray Souza Color (U) LT. YELLOW Normal YELLOW [facility] Comment on above: Performed By: #### C BC #### [facility] [address] [place] [address] Dr. Saray JHA A micrscopic examination will be performed if indicated. Normal [facility] Comment on above: Performed By: #### C BC #### [facility] [address] [place] [address] Dr. Saray Souza Glucose Ql (U) Negative Normal NEGATIVE [facility] Comment on above: Performed By: #### C BC #### [facility] [address] [place] [address] Dr. Saray Souza Hemoglobin Ql (U) Negative Normal NEGATIVE [facility] Comment on above: Performed By: #### C BC #### [facility] [address] [place] [address] Dr. Saray Souza Ketones Ql (U) Negative Normal NEGATIVE [facility] Comment on above: Performed By: #### C BC #### [facility] [address] [place] [address] Dr. Saray Souza LEUKOCYTES MODERATE Abnormal NEGATIVE [facility] Comment on above: Performed By: #### C BC #### [facility] [address] [place] [address] Dr. Saray Souza Nitrite Ql (U) Negative Normal NEGATIVE [facility] Comment on above: Performed By: #### C BC #### [facility] [address] [place] [address] Dr. Saray Souza pH (U) 5.5 [pH] Normal 5-9 [facility] Comment on above: Performed By: #### C BC #### [facility] [address] [place] [address] Dr. Saray Souza SPEC GRAVITY >=1.030 Abnormal 1.005-<=1.025 [facility] Comment on above: Performed By: #### C BC #### [facility] [address] [place] [address] Dr. Saray Souza UA PROTEIN Negative Normal NEGATIVE/ TRACE [facility] Comment on above: Performed By: #### C BC #### [facility] [address] [place] [address] Dr. Saray Souza UR MICRO IND INDICATED Normal [facility] Comment on above: Performed By: #### C BC #### [facility] [address] [place] [address] Dr. Saray Souza Urobilinogen Qn (U) 0.2 {Janine'U}/dL Normal 0.2 - 1. 0 [facility] Comment on above: Performed By: #### C BC #### [facility] [address] [place] [address] Dr. Saray Souza LIPASEon 02-04-2023 Lipase [Catalytic activity/Vol] 97.0 U/L Normal 73.0-393.0 [facility] Comment on above: Performed By: #### T SH, CMP, HSTROPN, LIPA, KELLE #### [facility] [address] [place] [address] Dr. Saray Souza URon 02-04-2023 , QUAL Negative Normal NEGATIVE [facility] Comment on above: Performed By: #### C BC #### [facility] [address] [place] [address] Dr. Saray Souza PROF 14(COMP METB)on 023 Albumin [Mass/Vol] 3.5 g/dL Normal 3.4-5.0 [facility] Comment on above: Performed By: #### T SH, CMP, HSTROPN, LIPA, KELLE #### [facility] [address] [place] [address] Dr. Saray Souza Albumin/Globulin [Mass ratio] 1.2 {ratio} Normal [facility] Comment on above: Performed By: #### T SH, CMP, HSTROPN, LIPA, KELLE #### [facility] [address] [place] [address] Dr. Saray Souza ALP [Catalytic activity/Vol] 78 U/L Normal 46-116 [facility] Comment on above: Performed By: #### T SH, CMP, HSTROPN, LIPA, KELLE #### [facility] [address] [place] [address] Dr. Saray Souza ALT [Catalytic activity/Vol] 24 U/L Normal 14-59 [facility] Comment on above: Performed By: #### T SH, CMP, HSTROPN, LIPA, KELLE #### [facility] [address] [place] [address] Dr. Saray Souza Anion gap [Moles/Vol] 7.9 mmol/L Normal [facility] Comment on above: Performed By: #### T SH, CMP, HSTROPN, LIPA, KELLE #### [facility] [address] [place] [address] Dr. Saray Souza AST [Catalytic activity/Vol] 16 U/L Normal 15-37 [facility] Comment on above: Performed By: #### T SH, CMP, HSTROPN, LIPA, KELLE #### [facility] [address] [place] [address] Dr. Saray Souza Bilirubin [Mass/Vol] 0.3 mg/dL Normal 0.2-1.0 [facility] Comment on above: Performed By: #### T SH, CMP, HSTROPN, LIPA, KELLE #### [facility] [address] [address] [address] Saray Souza Calcium [Mass/Vol] 8.6 mg/dL Normal 8.5-10.1 [facility] Comment on above: Performed By: #### T SH, CMP, HSTROPN, LIPA, KELLE #### [facility] [address] [place] [address] Dr. Saray Souza Chloride [Moles/Vol] 105 mmol/L Normal 98-107 [facility] Comment on above: Performed By: #### T SH, CMP, HSTROPN, LIPA, KELLE #### [facility] [address] [place] [address] Dr. Saray Souza CO2 [Moles/Vol] 28.9 mmol/L Normal 21.0-32.0 [facility] Comment on above: Performed By: #### T SH, CMP, HSTROPN, LIPA, KELLE #### [facility] [address] [place] [address] Dr. Saray Souza Creatinine [Mass/Vol] 0.67 mg/dL Normal 0.55-1.02 [facility] Comment on above: Performed By: #### T SH, CMP, HSTROPN, LIPA, KELLE #### [facility] [address] [place] [address] Dr. Saray Souza EGFR-AF ANGUILLAN >60 Normal >=60 [facility] Comment on above: Performed By: #### T SH, CMP, HSTROPN, LIPA, KELLE #### [facility] [address] [place] [address] Dr. Saray Souza EGFR-NON AF ANGUILLAN >60 Normal >=60 [facility] Comment on above: Performed By: #### T SH, CMP, HSTROPN, LIPA, KELLE #### [facility] [address] [place] [address] Dr. Saray Souza Globulin (S) [Mass/Vol] 3.0 g/dL Normal [facility] Comment on above: Performed By: #### T SH, CMP, HSTROPN, LIPA, KELLE #### [facility] [address] [address] [address] Saray Souza Glucose [Mass/Vol] 97 mg/dL Normal 74-106 [facility] Comment on above: Performed By: #### T SH, CMP, HSTROPN, LIPA, EKLLE #### [facility] [address] [place] [address] Dr. Saray Souza Potassium [Moles/Vol] 3.8 mmol/L Normal 3.5-5.1 [facility] Comment on above: Performed By: #### T SH, CMP, HSTROPN, LIPA, KELLE #### [facility] [address] [place] [address] Dr. Saray Souza Protein [Mass/Vol] 6.5 g/dL Normal 6.4-8.2 [facility] Comment on above: Performed By: #### T SH, CMP, HSTROPN, LIPA, KELLE #### [facility] [address] [place] [address] Dr. Saray Souza Sodium [Moles/Vol] 138 mmol/L Normal 136-145 [facility] Comment on above: Performed By: #### T SH, CMP, HSTROPN, LIPA, KELLE #### [facility] [address] [place] [address] Dr. Saray Souza Urea nitrogen [Mass/Vol] 13.0 mg/dL Normal 7.0-18.0 [facility] Comment on above: Performed By: #### T SH, CMP, HSTROPN, LIPA, KELLE #### [facility] [address] [place] [address] Dr. Saray Souza Urea nitrogen/Creatinine [Mass ratio] 19.4 mg/mg Normal [facility] Comment on above: Performed By: #### T SH, CMP, HSTROPN, LIPA, KELLE #### [facility] [address] [place] [address] Dr. Saray Souza TROPONIN, HIGH SENSITIVITYon 02-04-2023 HSTROP 4.0 pg/mL Normal 4.0-51.3 [facility] Comment on above: Result Comment: CUT- OFF POINTS HAVE BEEN ESTABLISHED BASED ON THE FOURTH UNIVERSAL DEFINITIONS OF MYOCARDIAL INFARCTION. THE UPPER REFERENCE LIMIT (URL) OF TROPONIN, DEFINED THE 99TH PERCENTILE OF cTnI DISTRIBUTION IN A REFERENCE POPULATION, HAS BEEN CONFIRMED THE DECISION THRESHOLD FOR [place] DIAGNOSIS. Performed By: #### T SH, CMP, HSTROPN, LIPA, KELLE #### [facility] [address] [place] [address] Dr. Saray Souza TSHon 02-04-2023 TSH 2.478 uIU/mL Normal 0.358-3.740 [facility] Comment on above: Performed By: #### T SH, CMP, HSTROPN, LIPA, KELLE #### [facility] [address] [place] [address] Dr. Saray Souza URINE MICROSCOPIC ONLYon BACTERIA MODERATE Abnormal NONE SEEN [facility] Comment on above: Performed By: #### C BC #### [facility] [address] [place] [address] Dr. Saray Souza Bacteria identified Cx Nom (U) INDICATED Normal [facility] Comment on above: Performed By: #### C BC #### [facility] [address] [place] [address] Dr. Saray Souza CAST NONE SEEN Normal NONE SEEN [facility] Comment on above: Performed By: #### C BC #### [facility] [address] [place] [address] Dr. Saray Souza Crystals LM Nom (Urine sed) NONE SEEN Normal NONE SEEN [facility] Comment on above: Performed By: #### C BC #### [facility] [address] [place] [address] Dr. Saray Souza Epithelial cells LM Ql (Urine sed) MODERATE Abnormal NONE SEEN /RARE [facility] Comment on above: Performed By: #### C BC #### [facility] [address] [place] [address] Dr. Saray Souza MUCOUS NONE SEEN Normal NONE SEEN [facility] Comment on above: Performed By: #### C BC #### [facility] [address] [place] [address] Dr. Saray Souza RBC 5-10 Abnormal 0-2 [facility] Comment on above: Performed By: #### C BC #### [facility] [address] [place] [address] Dr. Saray Souza WBC 10-20 Abnormal NONE SEEN [facility] Comment on above: Performed By: #### C BC #### [facility] [address] [place] [address] Dr. Saray Souza Covid-19 PCR ([facility])on 09-24 SARS-CoV-2 (COVID-19) RNA DAYDAY+probe Ql (Unsp spec) Not detected Normal NOT DETECTED [facility] Comment on above: Result Comment: When [...] for this test is supported by the [place] of Health and Human Service's declaration that [...] used). Performed By: #### C BC #### [facility] [address] [place] [address] Dr. Saray Souza INFLUENZA A AND B AGon 10-20 INFLUANEGH SEE BELOW Normal [facility] Comment on above: Result Comment: Nega tive for Flu A protein angiten. Infection due to Flu A cannot be ruled out. Flu A angiten in the sample may be below the detection limit of the test. Performed By: #### C BC #### [facility] [address] [place] [address] Dr. Saray Sou[facility] SEE BELOW Normal [facility] Comment on above: Result Comment: Nega tive for Flu B protein antigen. Infection due to Flu B cannot be ruled out. Flu B antigen in the sample may be below the detection limit of the test. Performed By: #### C BC #### [facility] [address] [place] [address] Dr. Saray Souza INFLUENZA A AG Negative Normal NEGATIVE SEE COMMENT [facility] Comment on above: Performed By: #### C BC #### [facility] [address] [place] [address] Dr. Saray Souza INFLUENZA B AG Negative Normal NEGATIVE SEE COMMENT [facility] Comment on above: Performed By: #### C BC #### [facility] [address] [place] [address] Dr. Saray Souza INTERNAL CONTROLS Within Normal Limits Normal Wi thin Normal Limits [facility] Comment on above: Performed By: #### C BC #### [facility] [address] [place] [address] Dr. Saray Souza STREPT SCREENon 10-20-2022 STREP SCREEN A Positive Abnormal NEGATIVE [facility] Comment on above: Performed By: #### C BC #### [facility] [address] [place] [address] Dr. Saray Souza XR SHOULDER RT INJon [...] by: ADRIANA MENDEZ Date: 2022-07-18 17:05 Normal [facility] MRI SHOULDER RT WO CONon MRI [...] by: ADRIANA MENDEZ Date: 2022-07-10 10:10 Normal [facility] XR ARTHRO SHLD RTon 07-10-20 XR [...] by: ADRIANA MENDEZ Date: 2022-07-10 10:01 Normal [facility] No Panel Informationon 03-18 Right Eye Reliability was good. Findings include normal observations. Left Eye Reliability was good. Findings include normal observations. Notes I personally reviewed the visual zaldivar performed by this patient on 03/18/22. The visual zaldivar are normal OU with good fixation. Francisco Ayers MD [facility] Radiology Study observation (narrative) [facility] Progress Noteson 03-18-2022 Rand [employer] Authentication Interface Message Text Referred by Retina [...] Hair) regarding headaches-- will fax information to [phone] - Offered referral to neurology, patient prefers [...] her PCP. Francisco Ayers MD Normal [facility] Cytologyon 12-20-2018 Cytology (NOTE) [id number] [employer] [facility] ANATOMIC PATHOLOGY [address] [place] [address]. [place], [place] [address] GYNECOLOGIC CYTOLOGY REPORT Patient Name: ROSALIE FREEMAN V. MR#: [id number] Specimen #[id number] Source: 1: Cervical material, (ThinPrep vial, Imaging-assisted review) Clinical History Z01.419 Routine intercell connector placer exam without abnormal findings High Risk HPV DNA testing is requested if the diagnosis is ASC-US LMP: implant INTERPRETATION Cervical material, (ThinPrep vial, Imaging-assisted review): Specimen Adequacy: Satisfactory for evaluation. - Endocervical/transform ation zone component present. - Scant cellularity; predominantly blood. Descriptive Diagnosis: Negative for intraepithelial lesion or malignancy. Manager Lean: KANCHAN Mendoza(ASCP) Electronically Signed Out donna/01/03/2019 Normal [facility] Comment on above: Performed By: #### P PPVP #### [employer] [address] [place] [address] Qual Research Manager: Vega Wilkerson MD Vital Signs Date Time Vital Sign Value Performing Clinician Facility 08-29-2024 10:53-0400 Body mass index (BMI) [Ratio] 45.89 kg/m2 Kelle BAE Work Phone: [facility] 08-29-2024 10:53-0400 Body weight 145.06 kg Kelle BAE Work Phone: [facility] 08-29-2024 10:53-0400 Diastolic blood pressure 70 mm[Hg] Kelle BAE Work Phone: [facility] 08-29-2024 10:53-0400 Systolic blood pressure 120 mm[Hg] Kelle BAE Work Phone: [facility] 2024 09:04-0400 Blood Pressure Location JANNETH HOPSON [facility] 2024 09:04-0400 Diastolic blood pressure 82 mm[Hg] JANNETH LUIS [facility] 2024 09:04-0400 Heart rate 74 /min JANNETH LUIS [facility] 2024 09:04-0400 Respiratory rate 16 /min JANNETH LUIS [facility] 2024 09:04-0400 Systolic blood pressure 125 mm[Hg] JANNETH LUIS [facility] 03-08-2024 14:09-0400 Blood Pressure Location Yonis CARNEY [facility] 03-08-2024 14:09-0400 Diastolic blood pressure 84 mm[Hg] Yonis CARNEY [facility] 03-08-2024 14:09-0400 Heart rate 76 /min Yonis NILL [facility] 03-08-2024 14:09-0400 Respiratory rate 16 /min Yonis NILL [facility] 03-08-2024 14:09-0400 Systolic blood pressure 118 mm[Hg] Yonis NILL [facility] 01-19-2024 09:34-0500 Blood Pressure Location JANNETH LUIS [facility] 01-19-2024 09:34-0500 Diastolic blood pressure 84 mm[Hg] JANNETH ULIS [facility] 01-19-2024 09:34-0500 Heart rate 80 /min JANNETH LUIS [facility] 01-19-2024 09:34-0500 Respiratory rate 16 /min JANNETH LUIS [facility] 01-19-2024 09:34-0500 Systolic blood pressure 132 mm[Hg] JANNETH LUIS [facility] 12-02-2023 08:40-0500 Body height 180.34 cm Taniya Mary Grace Other [employer] [facility] [employer] Other 12-02-2023 08:40-0500 Body mass index (BMI) [Ratio] 45.1 kg/m2 Taniya Mary Grace Other [facility] Other 12-02-2023 08:40-0500 Body temperature 97.5 [degF] Taniya Mary Grace Other [employer] Other 12-02-2023 08:40-0500 Body weight 146.69 kg Taniya Mary Grace Other [employer] Other 12-02-2023 08:40-0500 Diastolic blood pressure 83 mm[Hg] Taniya Mary Grace Other [employer] Other 12-02-2023 08:40-0500 Respiratory rate 18 /min Atniya Mary Grace Other [facility] Other 12-02-2023 08:40-0500 SaO2% (BldA) [Mass fraction] 98 % Taniya Mary Grace Other [employer] Other 12-02-2023 08:40-0500 Systolic blood pressure 136 mm[Hg] Taniya Mary Grace Other [employer] Other 11-19-2021 15:30-0500 Body height 180.34 cm Nandini Pantoja Other [employer] Other 11-19-2021 15:30-0500 Body mass index (BMI) [Ratio] 41.56 kg/m2 Nandini Pantoja Other [facility] Other 11-19-2021 15:30-0500 Body weight 135.17 kg Nandini Pantoja Other [employer] Other 11-19-2021 15:30-0500 Diastolic blood pressure 76 mm[Hg] Nandini Pantoja Other [facility] Other 11-19-2021 15:30-0500 Systolic blood pressure 128 mm[Hg] Nandini Pantoja Other [employer] Other Encounters Encounter Date Encounter Type Care Provider Facility Start: 10-27-2024 ambulatory JANNETH HOPSON Facili ty:[facility] Start: 08-29-2024 End: 08-29-2024 Bamboo flowsheet Kelle BAE Work Phone: [facility] Start: 08-29-2024 End: 08-29-2024 Bamboo flowsheet Kelle BAE Work Phone: [facility] Start: 08-29-2024 End: 08-29-2024 Office outpatient visit 15 minutes Kelle BAE Work Phone: [facility] Comment on above: Encounter for weight management Start: 08-29-2024 End: 08-29-2024 ambulatory KELLE LOVE Not Available Start: 07-26-2024 End: 07-26-2024 ambulatory KELLE LOVE Not Available Start: 06-27-2024 End: 06-27-2024 ambulatory DEISY DULCE Not Available Start: 05-30-2024 End: 05-30-2024 ambulatory DEISY DULCE Not Available Start: 2024 End: 2024 ambulatory Yonis R NILL Facility: [facility] Start: 2024 End: 2024 Patient encounter procedure JANNETH HOPSON [facility] Start: 04-27-2024 End: 04-27-2024 ambulatory MD Melodie Hargrove Work Phone: [facility] Work Phone: Start: 04-27-2024 End: 04-27-2024 Departed Referred MD Melodie Hargrove Work Phone: [facility] Start: 04-27-2024 End: 04-27-2024 ambulatory Yonis R NILL Facility:[id number] Start: 03-08-2024 End: 03-08-2024 ambulatory Yonis R NILL Facility: [facility] Start: 03-08-2024 End: 03-08-2024 Patient encounter procedure Yonis R NILL [facility] Start: 02-09-2024 End: 02-09-2024 ambulatory Dieterantonio SALMON Facility:[facility] Start: 02-09-2024 End: 02-09-2024 Patient encounter procedure Dieter SALMON [facility] Start: 01-19-2024 End: 01-19-2024 ambulatory JANNETH HOPSON Facility:[facility] Start: 01-19-2024 End: 01-19-2024 Lab Drop off JANNETH HOPSON [facility] Start: 01-19-2024 End: 01-19-2024 ambulatory Melodie Hargrove Facility:[facility] Start: 01-19-2024 End: 01-19-2024 Patient encounter procedure JANNETH HOPSON [facility] Start: 12-31-2023 ambulatory Yonis NILL Facility:[facility] Start: 12-17-2023 End: 12-17-2023 ambulatory Taniya Mary Grace Other [facility] Other Start: 12-17-2023 Office outpatient visit 15 minutes Taniya Mary Grace [facility] Start: 12-07-2023 End: 12-07-2023 ambulatory Taniya Mary Grace Other [facility] Other Start: 12-07-2023 Telephone encounter Taniya Mary Grace [facility] Start: 12-02-2023 End: 12-02-2023 ambulatory Taniya Mary Grace Other [facility] Other Start: 12-02-2023 Office outpatient ne w 30 minutes Tnaiya Brody [facility] Start: 04-17-2023 End: 04-17-2023 ambulatory SALMA DIAB . Facility:[facility] Start: 04-06-2023 End: 04-07-[address] MELODIE HARGROVE . Facility:[facility] Start: 04-04-2023 Encounter for genera l adult medical examination without abnormal findings DR MELODIE HARGROVE . [facility] Start: 04-03-2023 End: 04-04-[address] [...] 11-19-2021 End: 11-19-2021 ambulatory Nandini Pantoja Other [facility] Other Start: 11-19-2021 Office outpatient ne w 30 minutes Nandini Pantoja [facility] Start: 12-20-2018 End: 12-21-2018 Patient encounter procedure ANDRESSA Kaur [facility] Procedures Date Procedure Procedure Detail Performing Clinician Start: 04-29-2024 Colonoscopy JANNETHKARLIE MCKEON Start: 02-09-2024 Cystoscopy JANNETHLUBNA MCKEON Start: 07-09-2023 Microscopic observat ion [Identifier] in Cervix by Cyto stain Kelle BAE Work Phone: Start: 03-18-2022 Visual field xm uni/ bi [...] valgus correc tion by phalanx osteotomy JANNETH LUIS Hammer toe operation ALFONSO MADRIGALRY Left salpingo-oophorectomy JANNETH HOPSON Plan of Treatment Date Care Activity Detail Author Start: 2043 Shingles (RZV) Vacci ne (1 of 2) Shingles (RZV) Vaccine (1 of 2) [facility] Start: 07-09-2028 Screening for malign ant neoplasm of cervix [facility] Start: 11-28-2024 End: 11-28-2024 Patient encounter procedure 11/28/2024 9:30 AM EST Office Visit [facility] [address] [place] [id number] Kelle Love PA [address] [place], [place] [id number] [facility] Start: 08-29-2024 End: 08-29-2024 Patient encounter procedure 08/29/2024 10:50 AM EDT Office Visit [facility] [address] [place] [address] Kelle Love, PA [address] [place], [place] [id number] Arrived [facility] Comment on above: Arrived Start: 07-24-2024 Influenza vaccination Influenza Vacc ine (#1) [facility] Start: 2014 Screening for malign ant neoplasm [facility] cervix [facility] Start: 2011 Hepatitis C screening Hepatitis C An tibody [facility] Start: 2011 Tetanus + diphtheria + acellular pertussis vaccine (product) [facility] Start: 2008 HIV screening HIV Test [facility] Start: 1998 COVID-19 Vaccine (1) COVID-19 Vaccin e (1) [facility] Immunizations Immunization Date Immunization Notes Care Provider Fa [facility] 10-28-2022 influenza virus vaccine, unspecified formulation JANNETH HOPSON [facility] 04-15-2021 SARS-CoV-2 (COVID-19 ) mRNA-1273 vaccine JANNETH HOPSON [facility] 03-18-2021 SARS-CoV-2 (COVID-19 ) mRNA-1273 vaccine JANNETH HOPSON [facility] 03-21-2014 influenza virus vaccine, unspecified formulation Estella Guerrero MD Work Phone: [facility] Payers Date Payer Category Payer Medicaid [employer] [place] [employer] [id number] 2017-Present [address] [place] [address] [id number] 2017 Unknown [facility] HEALTH [facility] [employer] [id number] 2017-Present [id number] 1993 Unknown [id number] 2.16.840.1.015424.3.579.2.173 1993 Unknown [id number] 2.16.840.1.166167.3.579.2.732 1993 Unknown [id number] 2.16.840.1.996340.3.579.2.593 1993 Unknown [id number] 2.16.840.1.471849.3.579.2.593 1993 Unknown [id number] 2.16.840.1.193512.3.579.2.593 1993 Unknown [id number] 2.16.840.1.173989.3.579.2.593 1993 Unknown [id number] 2.16.840.1.913663.3.579.2.593 1993 Unknown [id number] 2.16.840.1.496477.3.579.2.593 1993 Unknown [id number] 2.16.840.1.625759.3.579.2.593 1993 Unknown [id number] 2.16.840.1.900720.3.579.2.593 1993 Unknown [id number] 2.16.840.1.752817.3.579.2.593 1993 Unknown [id number] 2.16.840.1.748257.3.579.2.593 1993 Unknown [id number] 2.16.840.1.539570.3.579.2.593 1993 Unknown [id number] 2.16.840.1.282969.3.579.2.593 1993 Unknown [id number] 2.16.840.1.253295.3.579.2.727 1993 Unknown [id number] 2.16.840.1.842257.3.579.2.727 1993 Unknown [id number] 2.16.840.1.239147.3.579.2.727 1993 Unknown [id number] 2.16.840.1.859504.3.579.2.727 1993 Unknown [id number] 2.16840.1.849545.3.579.2.727 1993 Unknown [id number] 2.16.840.1.425769.3.579.2.727 1993 Unknown [id number] 2.16.840.1.735603.3.579.2.727 1993 Unknown [id number] 2.16.840.1.544006.3.579.2.727 1993 Unknown [id number] 2.16.840.1.266541.3.579.2.1259 1993 Unknown [id number] 2.16840.1.739933.3.579.2.9 1993 Unknown [id number] 2.16840.1.496315.3.579.2.1259 1993 Unknown [id number] 2.16840.1.382514.3.579.2.1259 1959 Unknown [id number] Social History Date Type Detail Facility Tobacco smoking status TXIS Tobacco smoking consumption unknown [facility] Other Start: 1993 Sex Assigned At Not on file [facility] Start: 05-23-2024 Sex Assigned At F [facility] Start: 05-03-2023 End: 01-19-2024 Tobacco smoking status Never smoked tobacco (finding) [facility] Tobacco smoking status Never [facility] Start: 1993 Sex Assigned At Female F [facility] Start: 07-26-2024 End: 08-29-2024 Alcoholic beverage intake Current drinker of alcohol (finding) [facility] Start: 05-23-2024 History of Social function [facility] Start: 05-03-2023 Alcohol Comment 1-2 drinks les s than monthly in the past year, Caffeine intake: 2-3 cups per day [facility] Functional Status Date Assessment Result Facility 2024 Functional Status N/A [facility] 03-08-2024 [facility] Status N/A [facility] Functional Status N/A [facility] Clinical Notes 03-18-2022 to 08-29-2024 KATHIA Ledezma - 08/29/2024 10:50 AM EDT Note Date & Type Note Facility 08-29-2024 History of Present illness Narrative Reason for Appointment: Patient ID: Rosalie Freeman is a 29 y.o. female who presents for encounter for weight loss (Adipex #3) Patient presents today for Adipex #3 MEDICATIONS Current Outpatient Medications Medication Instructions fexofenadine ODT (SUSAN ODT) 30 mg, Oral, Daily metFORMIN XR (GLUCOPHAGE-XR) 500 mg, Oral, Daily with evening meal, Do not crush, chew, or split. phentermine (ADIPEX-P) 37.5 mg, Oral, Daily before breakfast sertraline (ZOLOFT) 100 mg, Oral, Daily sulfamethoxazole-trimethoprim (Bactrim DS) 800-160 MG per tablet 1 tablet, Oral, 2 times daily ALLERGIES No Known Allergies PROBLEMS Active Ambulatory Problems Diagnosis Date Noted LPRD (laryngopharyngeal reflux disease) 05/07/2023 Pharyngeal dysphagia 05/07/2023 Abnormal ultrasound of biliary tract 05/27/2023 Acne vulgaris 05/27/2023 Anxiety 05/27/2023 Chronic cholecystitis with calculus 05/27/2023 Dermoid cyst of left ovary 04/10/2015 Gastroesophageal reflux disease 05/27/2023 Insomnia 05/27/2023 Irritable bowel syndrome 05/27/2023 Mood disorder ([facility]) 05/27/2023 Right upper quadrant abdominal pain 05/27/2023 Scoliosis 05/27/2023 Vaginal delivery 09/06/2014 Encounter for weight management 06/27/2024 Resolved Ambulatory Problems Diagnosis Date Noted No Resolved Ambulatory Problems Past Medical History: Diagnosis Date Acne Cardiac murmur Depression ([facility]) Encounter for IUD insertion 01/02/2021 Gastritis IBS (irritable bowel syndrome) Plantar fasciitis, bilateral HISTORY PAST MEDICAL HISTORY SOCIAL HISTORY Past Medical History: Diagnosis Date Acne Cardiac murmur Depression ([facility]) Encounter for IUD insertion 01/02/2021 Gastritis IBS (irritable bowel syndrome) Plantar fasciitis, bilateral Scoliosis Social History Tobacco Use Smoking status: Never Smokeless tobacco: Not on file Substance Use Topics Alcohol use: Yes Comment: 1-2 drinks less than monthly in the past year, Caffeine intake: 2-3 cups per day Drug use: Not on file FAMILY HISTORY Family History Problem Relation Name Age of Onset Hypertension Mother Hypertension Father SURGICAL HISTORY Past Surgical History: Procedure Laterality Date OOPHORECTOMY Left REVIEW OF SYSTEMS Review of Systems: Review of Systems Constitutional: Negative. HENT: Negative. Eyes: Negative. Respiratory: Negative. Cardiovascular: Negative. Gastrointestinal: Negative. Genitourinary: Negative. Musculoskeletal: Negative. Skin: Negative. Neurological: Negative. All other systems reviewed and are negative. Hematological: Negative. Endocrine: Negative. Allergic/Immunologic: Negative. OBJECTIVE Objective: Physical Exam Constitutional: Appearance: Normal appearance. She is well-developed. Cardiovascular: Rate and Rhythm: Normal rate and regular rhythm. Pulmonary: Effort: Pulmonary effort is normal. Breath sounds: Normal breath sounds. Abdominal: General: Bowel sounds are normal. There is no distension. Palpations: Abdomen is soft. Tenderness: There is no abdominal tenderness. There is no guarding or rebound. Musculoskeletal: General: No swelling. Normal range of motion. Right lower leg: No edema. Left lower leg: No edema. Neurological: Mental Status: She is alert and oriented to person, place, and time. Skin: General: Skin is warm and dry. Psychiatric: Mood and Affect: Mood normal. Behavior: Behavior normal. Vitals and nursing note reviewed. Exam conducted with a ham stringer present. Vitals: Estimated body mass index is 45.89 kg/m as calculated from the following: Height as of 07/26/24: 5' 10 . Weight as of this encounter: 319 lb 12.8 oz. BP: 120/70 No LMP recorded. ASSESSMENT & PLAN ICD-10-CM 1. Encounter for weight management Z76.89 phentermine (Adipex-P) 37.5 MG tablet Patient presents today for 3rd Adipex prescription. Patient desires additional weigh loss and she is currently taking metformin along with working out to achieve further results. The possibility of Ozempic for future use has been discussed. Weight and blood pressure has been captured and it has been discussed/reiterated the importance of keeping a food journal, proper nutrition/diet, and exercise regimen. Patient verbalized understanding. Patient has lost more than 5% of her initial body weight Follow Up: Patient to return to office in 3 months to follow up on Weight loss and Blood pressure. Documented by Yajaira Alba LPN on behalf of: KATHIA Ledezma documented in this encounter [facility] 2024 Hospital Discharge instructions Patient Education 2024 09:48:37 Antibiotic Medicine, [...] medicine. Follow these instructions at home: Take xfut-mkq-ztzzbcy and prescription medicines as told by your [...] provider. Document Revised: 12/24/2020 Document Reviewed: 08/28/2020 [facility] Patient Education 2022 Home Team Therapy. Follow Up Care 01/19/2024 10:50:20 With:JANNETH HOPSON PA-C, URL Address: [address] [place] [address] [phone] When: Unknown [facility] 03-10-2024 Note Chief Complaint consultation for diarrhea [...] - Denies A (more content not included)... [facility] Comment on above: Result Comment: Elec tronically Signed By: RUTH CLARK, Yonis Cardenas\Date and Time Signed: 03/10/24 12:35 EDT 02-09-2024 Hospital Discharge instructions Patient Education 02/09/2024 08:33:30 EU - [...] SALMON Address: [facility] [address] [place] [address]- [facility] (1) When:06/10/2024 08:33:15 Comments:With Deepthi Luis [facility] 02-09-2024 Note [id number] [facility] 02-09-2024 Note Custom Cystoscopy ? Voiding [...] you have a fever over 100 degrees. [facility] 01-19-2024 Hospital Discharge instructions Patient Education 01/19/2024 10:40:41 Cystogram Cystogram [...] including vitamins, herbs, eye drops, creams, and zrku-ndy-djgpmzj medicines. Any problems you or family members [...] health care provider tells you to. ?Taking gybd-ycx-occxgbx medicines, vitamins, herbs, and supplements. General instructions [...] provider. Document Revised: 02/19/2023 Document Reviewed: 02/19/2023 [facility] Patient Education 2022 Home Team Therapy. 01/19/2024 10:32:14 Urinary Tract Infection, Adult Urinary [...] Treatment for this condition includes: Antibiotic medicine. Hxwf-xfm-vxlfobn medicines to treat discomfort. Drinking enough water [...] Follow these instructions at home: Medicines Take kyso-bvh-hknaoje and prescription medicines only as told by [...] provider. Document Revised: 06/21/2021 Document Reviewed: 06/21/2021 [facility] Patient Education 2022 Home Team Therapy. 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 [facility] Comment on above: Result Comment: Elec tronically Signed By: LUIS STEPHENS, JANNETH Barreto\.brandon\Date and Time Signed: 01/19/24 10:56 EST\.br\Electronically Co-Signed By: Jania Lyn\.brandon\Date and Time Co-Signed: 01/19/24 10:36 EST 12-17-2023 [...] her to avoid NSAIDs or any other vvpp-lxb-fjoajtr medication or high-protein supplements Nov, Renal lesion [...] and no personal patient information was compromised. [facility] Other 01-10-2024 Evaluation note* Encounter Date Diagnosis [...] her to avoid NSAIDs or any other pyky-wbo-ezpqnjc medication or high-protein supplements Nov, Renal lesion (ICD-10 - N28.9) She had a renal lesion of indeterminate nature on the renal ultrasound. She is ordered to have a CAT scan with contrast by the PCP. Will follow the report once done. Nov, IBS (irritable bowel syndrome) (ICD-10 - K58.9) Continue to follow with PCP for IBS management. [facility] Other 06-21-2022 NotePROCEDURE: XR SHOULDER RT 2V or > COMPARISON: None. HISTORY: Pain of right shoulder joint FINDINGS: BONES:No fracture, acute abnormality, or significant arthropathy. SOFT TISSUES:Negative. No visible soft tissue swelling. EFFUSION:None visible. OTHER: Negative. IMPRESSION: Normal examination. Electronically authenticated by: NANDINI MAYER Date: 2022-05-13 08:41[facility]04-26-2022 History of Present illness Narrative* Francisco [...] edema - F/u with PCP (Melodie Hargrove Clark) regarding headaches-- will fax information to [phone] - Offered referral to neurology, patient prefers [...] papilledema. Francisco Ayers MD documented in this [id number] History of Present illness Narrative* Francisco Ayers MD - 03/18/2022 10:43 AM EDT Referred by [facility] for disc edema, concern for IIH - [...] Hair) regarding headaches-- will fax information to [phone] - Offered referral to neurology, patient prefers [...] Appointments Appointment Date:02/02/2024 11:30:00 AM Scheduled Provider: Location:[facility] Appointment Type:Urology CALL PAT FT Appointment Date:02/09/2024 08:15:00 AM Scheduled Provider: Location:[facility] Appointment Type:Urology FT Appointment Date:2024 08:20:00 AM Scheduled Provider:JANNETH HOPSON PA-C Location:[facility] Appointment Type:URO Office Visit [facility] evaluation + Plan note Future Appointments Appointment Date:02/02/2024 11:30:00 AM Scheduled Provider: Location:[facility] Appointment Type:Urology CALL PAT FT Appointment Date:02/09/2024 08:15:00 AM Scheduled Provider: Location:[facility] Appointment Type:Urology FT Appointment Date:2024 08:20:00 AM Scheduled Provider:JANNETH HOPSON PA-C Location:[facility] Appointment Type:URO Office Visit Diagnostic Tests Pending * Urine [facility] Future App[facility]ments Appointment Date:2024 08:20:00 AM Scheduled Provider:JANNETH HOPSON PA-C Location:[facility] Diagnosis Chronic nonintractable headache, unspecified headache type- [facility] Chronic nonintractable headache, unspecified headache type- Primary [facility] [employer] Other Evaluation noteNo InformationNort [employer] Other Evaluation noteNo assessment information available [facility] Work Phone: Evaluation note* Diagnosis Encounter for weight management documented [facility] Other History general Narrative - Reported* Type Description Date Medical History irritable bowel syndrome Medical History depression Medical History PROTEINURIA, UNSPECIFIED Medical History HYPOGLYCEMIA Medical History ARTHRALGIA Medical History SHINGLES Medical History ADHD Surgical History ovary removed 2014 Surgical History cholecystectomy Surgical History bilateral fasciitis repair Surgical History bilateral bone spur removal Hospitalization History 1 child [facility] [employer] Other Hospital course Narrative No data available for this section [facility] Hospital Discharge instructions No data available for this section [facility] No data available for this section [facility] Summary Purpose Family History Relationship Condition Age at Onset Recorded Date/T [...] content) DATE CREATED AUTHOR 08/31/2019 Rose Nicolas pitvicente DATE CREATED AUTHOR AUTHOR'S ORGANIZ ATION 03/20/2022 [facility] DATE CREATED AUTHOR AUTHOR'S ORGANIZ ATION 04/18/2023 [facility] DATE CREATED AUTHOR AUTHOR'S ORGANIZ ATION 04/30/2024 [facility] DATE CREATED AUTHOR AUTHOR'S ORGANIZ ATION 07/26/2024 Silas Ingram [facility] DATE CREATED AUTHOR AUTHOR'S ORGANIZ ATION 07/26/2024 [facility] DATE CREATED AUTHOR AUTHOR'S ORGANIZ ATION 08/30/2024 [facility] Reason for Visit (unrecogniz ed section and content) Reason Comments Optic nerve edema Reason Comments encounter for weight loss Adipex #3 Patient Care team informatio n (unrecognized section and content) Team Status: Active Member Role Status Dates Melodie Hargrove MD Primary Care Provider Active Team Status: Inactive Member Role Status Dates Melodie Hargrove MD Primary Care Provider Active Start: April 27, 2024 End: April 27, 2024 Yonis Carney MD [facility] Attending Provider Active Start: April 27, 2024 End: April 27, 2024 Frame Fixer Relationship Specialty Start Date End Date Melodie Hargrove MD [address] [place] [address] PCP - General Family Medicine 05/11/23 Frame Fixer Relationship Specialty Start Date End Date Melodie Hargrove MD [address] [place] [address] PCP - General Family Medicine 05/11/23 Goals (unrecognized section and content) Goals may [...] BE BASED ON THE PRIMARY CLINICAL RECORDS. [facility] [employer] [facility]. provides no warranty or guarantee of the accuracy or completeness of information in this document.
[2024-09-16 10:24] LABS: Thyroid Stimulating Hormone 2.195 uIU/mL (0.358-3.740)
[2024-09-16 10:26] LABS: Free T4 0.81 ng/dL (0.76-1.46)
== END 2024-09-16 09:12 | disposition home or self-care (01) ==
LOC: LAB 09:12
PROVIDERS: PCP Family Medicine; Visit Provider Family Medicine
DX: R53.83 Other fatigue (principal); R63.5 Abnormal weight gain
CPT/HCPCS: 36415; 84439; 84443

== ENCOUNTER 2024-09-28 11:06 | Outpatient (OUT) | payer OTHER, SELFPAY ==
[2024-09-28 11:27] LABS: Basophils Percent Auto 0.5 % (0.2-2.0); Eosinophils Absolute Auto 0.1 10^3/uL (0.0-0.7); Eosinophils Percent Auto 1.9 % (0.9-7.0); Hematocrit 40.1 % (36.0-48.0); Hemoglobin 13.5 g/dL (12.0-16.0); Immature Granulocytes Abs Auto 0.03 10^3/uL (0.00-0.03); Immature Granulocytes Pct Auto 0.4 % (0.0-0.5); Lymphocytes Absolute Auto 1.7 10^3/uL (1.2-3.8); Lymphocytes Percent Auto 23.9 % (20.5-60.0); Mean Corpuscular HGB Conc 33.7 g/dL (29.9-35.2); Mean Corpuscular Hemoglobin 30.3 pg (26.7-34.0); Mean Corpuscular Volume 90.1 fL (81.0-99.0); Mean Platelet Volume 8.7 fL (9.5-13.5); Monocytes Absolute Auto 0.5 10^3/uL (0.3-0.8); Monocytes Percent Auto 7.4 % (1.7-12.0); Neutrophils Absolute Auto 4.8 10^3/uL (1.4-6.5); Neutrophils Percent Auto 65.9 % (43.0-75.0); Platelet Count 299 10^3/uL (150-450); Red Blood Count 4.45 10^6/uL (4.20-5.40); Red Cell Distribution Width 12.1 % (11.0-15.0); White Blood Count 7.3 10^3/uL (4.0-11.0)
[2024-09-28 12:13] LABS: Thyroid Stimulating Hormone 2.393 uIU/mL (0.358-3.740)
[2024-09-28 12:15] LABS: HCG Quantitative 1721 mIU/mL
== END 2024-09-28 11:07 | disposition home or self-care (01) ==
LOC: LAB 11:10
PROVIDERS: PCP Family Medicine; Visit Provider Obstetrics & Gynecology
DX: N92.6 Irregular menstruation, unspecified (principal)
CPT/HCPCS: 36415; 84443; 84702; 85025

== ENCOUNTER 2024-10-14 15:30 | Outpatient (OUT) | payer OTHER, SELFPAY ==
--- OUTSIDE RECORDS SUMMARY | 2024-10-14 15:38 | XMS_ITS | CCD ---
Author Organization [facility]ini[facility] Care Team Providers Care Oven Laborer Name Role Phone ANDRESSA ESCALANTE Referring Unavailable [...] Unavailable HOY ., DR SEWELL Admkaty Unavailable GROVER, DR NANDINI Stafford Consulting Unavailable HOY ., DR SEWELL Consulting Unavailable HOY ., DR SEWELL Primary Care Unavailable HOY ., DR SEWELL Attending Unavailable HOY ., DR SEWELL Admitting Unavailable HOY ., DR SWEELL Consulting Unavailable HOY ., DR SEWELL Primary Care Unavailable HOY ., DR SEWELL Attending Unavailable HOY ., DR SEWELL Admitting Unavailable WEST, DR NANDINI Stafford Consulting Unavailable HOY ., [...] Primary Care Unavailable Mary Grace, Taniya Unavailable Shashi Hargrove Primary Care Physician [phone] MD Shashi Hargrove Primary Care Provider [phone] MD Yonis Carney Attending Provider [phone] Shashi Hargrove Primary Care Unavailable Nill, Yonis Mckenzie Attending Unavailable Nill, Yonis Mckenzie Admitting Unavailable NILL, Yonis Mckenzie Attending Unavailable NILL, Yonis Mckenzie Attending Unavailable HoyShashi Referring Unavailable NILL, Yonis Mckenzie Attending Unavailable LUIS, JANNETH E Attending Unavailable Hoy, Shashi Referring Unavailable LUIS, JANNETH E Attending Unavailable LUIS, JANNETH E Attending Unavailable SALMON, Dieter R Referring Unavailable SALMON, Dieter R Attending Unavailable SALMON, Dieter R Admitting Unavailable LUIS, JANNETH E Attending Unavailable LUIS, JANNETH E Admitting Unavailable DANTE, GRAHAM Attending Unavailable DANTE, GRAHAM Attending Unavailable MELANY, KELLE Attending Unavailable MELANY, KELLE Attending Unavailable Shashi Hargrove MD Primary Care Provider [phone] Allergies Allergy Classification Reported Allergen(s) Allergy Type Date of Onset Reaction(s) Facility (1 source) [facility]; Translations: [[facility]] Propensity to adverse reactions (disorder) 0 [facility] Repository (3 sources) [facility] allergy hiv [facility]most Other (1 source) No Known Medication Allergies; Translations: [No Known Medication Allergies] Propensity to adverse reactions (disorder) [facility] Repository Medications Current Medications Medication Drug [...] fexofenadine hydrochloride 30 mg disintegrating oral tablet (4 sources) Histamine-1 Receptor Antagonist take 1 tablet [...] hydrochloride 500 mg extended release oral tablet (4 sources) Biguanide Start: 05-30-2024 take 1 tablet [...] Ordered phentermine hydrochloride 37.5 mg oral tablet (9 sources) Sympathomimetic Amine Anorectic Start: 06-27-2024 End: 11-27-2024 take 1 tablet by mouth before mealtime phentermine (Adipex-P) 37.5 MG tablet Indications: Encounter for weight management Take 1 tablet (37.5 mg) by mouth in the morning. Take before meals. 90 tablet 08/29/2024 11/27/2024 Active sertraline 100 mg oral tablet (14 sources) Serotonin Reuptake Inhibitor Start: 09-19-2021 take 1 tablet by mouth once daily Zoloft 100 mg Tab 100 mg = 1 tab(s), Oral, Daily, Refills(s) 0 Start Date: 09/19/21 Status: Ordered sulfamethoxazole 400 mg / trimethoprim 80 mg oral tablet (10 sources) Dihydrofolate Reductase Inhibitor Antibacterial, Sulfonamide Antimicrobial Start: 01-19-2024 Bactrim 400 mg-80 mg Tab 1 tab(s), Oral, Daily UTI prevention, 30 tab(s), Refill(s) 3, [facility]/pharmacy #[id number], 180, cm, 01/19/24 9:37:00 EST, Height/Length [...] completed., # 2 cap(s), Refills(s) 0, Pharmacy: [facility]/pharmacy #[id number], 180, cm, 01/19/24 9:37:00 EST, Height/Length Dosing, 145.5, kg, 01/19/24 9:37:00 EST, Weight Dosing Start Date: 01/19/24 Status: Ordered levonorgestrel 0.444848 mg/hr intrauterine system (6 sources) Progestin, Progestin-containin [...] Classification Problem Date Documented Da te Episodic/Chronic Anxiety disorders (10 sources) Anxiety; Translations: [Anxiety disorder, unspecified] Onset: [...] headache, unspecified headache type] Episodic Mood disorders (10 sources) Mood disorder; Translations: [Unspecified mood [affective] disorder] Onset: 3 09-19-2021 Chronic Nausea and vomiting (1 source) Nausea; Translations: [NAUSEA] Onset: 3 Episodic Other acquired deformities (10 sources) Scoliosis deformity of spine; Translations: [Scoliosis, unspecified] Onset: 3 09-20-2021 Chronic Other aftercare (1 source) Other long term care phlebotomist (current) drug therapy; Translations: [OTH ALF CURRENT DRUG THERAPY] Onset: 3 Episodic Other [...] HYPOGLYCEMIA] Onset: 3 Chronic Other gastrointestinal disorders (15 sources) Irritable bowel syndrome; Translations: [Irritable bowel [...] Date Documented Da te Episodic/Chronic Abdominal pain (16 sources) Epigastric pain; Translations: [Right upper quadrant pain] Onset: 05-27-2023 09-20-2021 Episodic Administrative/social admission (6 sources) Patient encounter status; Translations: [Persons encountering health services in other specified circumstances] Onset: 06-27-2024 06-27-2024 Episodic Biliary tract disease (10 sources) Chronic cholecystitis with calculus; Translations: [Calculus of gallbladder with chronic cholecystitis without obstruction] Onset: 05-27-2023 09-30-2021 Episodic Other and unspecified benign neoplasm (4 sources) Mature cystic teratoma of left ovary; Translations: [Benign neoplasm of left ovary] Onset: 04-10-2015 05-27-2023 Episodic Other connective tissue disease (4 sources) Impingement syndrome of right shoulder; Translations: [IMPINGEMENT SYNDROME RIGHT SHOULDER] Onset: 07-10-2022 Episodic Other gastrointestinal disorders (4 sources) Pharyngeal dysphagia; Translations: [Dysphagia, pharyngeal phase] Onset: 05-07-2023 05-07-2023 Episodic Other non-traumatic joint disorders (5 sources) Pain in right shoulder; Translations: [PAIN IN RIGHT SHOULDER] Onset: 05-13-2022 Episodic Other and delivery including normal (4 sources) Vaginal delivery; Translations: [Encounter for full-term uncomplicated delivery] Onset: 09-06-2014 05-27-2023 Episodic Other screening for suspected conditions (not mental disorders or infectious disease) (10 sources) Ultrasonography of biliary tract abnormal; Translations: [Abnormal findings on diagnostic imaging of liver and biliary tract] Onset: 05-27-2023 09-20-2021 Episodic Other skin disorders (10 sources) Acne vulgaris; Translations: [Acne vulgaris] Onset: 05-27-2023 09-20-2021 Episodic Other upper respiratory infections (1 source) Acute pharyngitis, unspecified; Translations: [ACUTE PHARYNGITIS UNSPECIFIED] Onset: 10-23-2022 Episodic Poisoning by nonmedicinal substances (4 sources) Toxic effect of venom of bees, accidental (unintentional), initial encounter; Translations: [TOXIC EFF VENOM BEES ACC INIT ENC] Onset: 08-05-2022 Episodic Residual codes; unclassified (10 sources) Insomnia; Translations: [Insomnia, unspecified] Onset: 05-27-2023 [...] Test Name Value Interpretation Reference Range Facility ALL CBC WITH AUTO DIFFon [facility]OPHILS [facility]OLUTE [facility] Basophils/100 WBC (Bld) 0.5 % 0.2 - 2.0 % [facility] Eosinophils/100 WBC (Bld) 1.9 % 0.9 - 7.0 % [facility] Erythrocyte distribution width (RBC) [Ratio] 12.1 % 11.0 - 15.0 % [facility] Hematocrit (Bld) [Volume fraction] 40.1 % 36.0 - 48.0 % [facility] Hemoglobin (Bld) [Mass/Vol] 13.5 g/dL 12.0 - 16.0 g/dL [facility] IMMATURE GRANULOCYTES ABS AUTO 0.03 [facility] Immature granulocytes/100 WBC (Bld) 0.4 % 0.0 - 0.5 % [facility] Interpretation and review of laboratory results Abnormal [facility] LYMPHOCYTES ABSOLUTE AUTO 1.7 [facility] Lymphocytes/100 WBC (Bld) 23.9 % 20.5 - 60.0 % [facility] MCH (RBC) [Entitic mass] 30.3 pg 26.7 - 34.0 pg [facility] MCHC (RBC) [Mass/Vol] 33.7 g/dL 29.9 - 35.2 g/dL [facility] MCV (RBC) [Entitic vol] 90.1 fL 81.0 - 99.0 fL [facility] MONOCYTES ABSOLUTE AUTO 0.5 [facility] Monocytes/100 WBC (Bld) 7.4 % 1.7 - 12.0 % [facility] NEUTROPHILS ABSOLUTE AUTO 4.8 [facility] Neutrophils/100 WBC (Bld) 65.9 % 43.0 - 75.0 % [facility] Platelet mean volume (Bld) [Entitic vol] 8.7 fL Low 9.5 - 13.5 fL [facility] EO # 0.1 [facility] PLT 299 [facility] RBC 4.45 [facility] WBC 7.3 [facility] Reminderson 07-12-2024 Reminders Reminders From: Sanjuana Muñoz To: EU - Administrative; Sent: 2024 10:01:58 EDT Show up: 07/07/2024 10:01:00 EDT Subject: 6 month F/U Due Date/Time: 11/01/2024 10:01:00 EST Reminder/Recall Patient needs scheduled for a 6 month F/U with PETER, due back Mid October 2024. LVM for patient to call and schedule f/u Normal [facility] Screenson 05-11-2024 Screens [id number]#1. 00TIFF [facility] Ambulatory Visit Summaryon 0 2024 Ambulatory [...] EDT With: RUTH CLARK, Yonis Mckenzie Where: [facility] General Surgery [place] Normal [facility] Patient Educationon 05-10-20 24 Patient Education Caregiving [...] Follow these instructions at home: ? Take srbb-rhg-qxolfjk and prescription medicines as told by your [...] get worse. (more content not included)... Normal [facility] Urology Office/Clinic Noteon 2024 Urology Office/Clinic [...] back normal. Is considering f/u with a boxing trainer. Also had a difficult PO recovery and had a CT scan done in the ER which indicated her Mirena is not in the correct spot. 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 We did speak about how some pts [...] Bactrim SS 1 tab prn -F/u with GAS BURNER OPERATOR to discuss IUD/different form of control -F/u [...] Contact Information LUIS STEPHENS, JANNETH Barreto, URL [address] [facility] [place] [address] [phone] Additional Instructions: 6 mos (no labs) Patient [...] influenza virus vaccine, (more content not included)... [facility] Comment on above: Result Comment: Elec tronically Signed By: JANNETH HOPSON PA-C\.br\Date and Time Signed: 05/10/24 09:55 EDT\.br\Electronically Co-Signed By: Ondina Parra\.br\Date and Time Co-Signed: 05/10/24 09:51 EDT Outside Colonoscopyon 2023 Outside Colonoscopy [id number]#1.00 TIFF [facility] Lab Reportson 04-28-2024 Lab Reports [id number]#1.0 0TIFF [facility] Consent for Procedure/Surger yon 03-09-2024 Consent for Procedure/Surgery [id number]#1.0 0TIFF [facility] Ambulatory Visit Summaryon 0 03-08-2024 Ambulatory [...] JANNETH HOPSON PA-C Where: [facility] Physician Referralon 024 Physician Referral [id number] 0TIFF [facility] Physician Referralon 024 Physician Referral [id number]#1.0 0TIFF [facility] Consent for Procedure/Surger yon 02-09-2024 Consent for Procedure/Surgery [id number]#1. 00TIFF [facility] Consent for Treatmenton 01-21 Consent for Treatment [id number]#1.0 0TIFF [facility] IntraOperative Documentson 0 02-09-2024 IntraOperative Documents [id number]#1. 00TIFF [facility] Main OR Intraoperative Recor don 02-09-2024 Main OR Intraoperative Record IntraOp Document Type FTURO Summary Primary Physician: Dieter SALMON MD Finalized Date/Time: 02/09/24 08:32:09 Pt. Name: ROSALIE FREEMAN Rivera Martin/Sex: 1995 Female Med Rec #: [id number] Physician: Dieter SLAMON MD Financial #: [id number] Pt. Type: O Room/Bed: / Admit/Disch: 02/09/24 07:32:51 - Institution: Case Times FTURO Entry 1 Patient Times In Room 02/09/24 08:10:00 Out Room 02/09/24 08:38:00 Procedure Times Start 02/09/24 08:24:00 Stop 02/09/24 08:33:00 Anesthesia Times Last Modified By: Сергей VALENZUELA, RAYMONDOR, Sangita 02/09/24 08:31:26 Case Attendance FTURO Entry 1 Entry 2 Entry 3 Case Attendee Dieter SALMON MD RN, RAYMONDOR, Maryam GRIGSBY, Bianca Quesada Role Performed Surgeon - Primary Oil Pipe Inspector Helper - Primary Scrub - Primary Time In 02/09/24 08:10:00 02/09/24 08:10:00 02/09/24 08:10:00 Time Out 02/09/24 08:38:00 02/09/24 08:38:00 02/09/24 08:38:00 Procedure CYSTOSCOPY LOCAL(.) CYSTOSCOPY LOCAL(.) CYSTOSCOPY LOCAL(.) Comments Last Modified By: Сергей RN, CNOR, Сергей RN, RAYMONDOR, Сергей VALENZUELA, RAYMONDOR, Sangita 02/09/24 Sangita [...] Position Verified Availability Equipment, Medication Time Out SANDRITA CLARK, Dieter Mckenzie, Verified (If Participants Сергей VALENZUELA, RAYMONDOR, Applicable) Maryam Quesada CST, Bianca Bazzi Time Out Complete 02/09/24 08:14:00 Allergies Reviewed? [...] GIUSEPPE Rushing RN, Ruthann 02/09/24 08:32 Normal [facility] Main OR Preoperative Recordo n 02-09-2024 Main OR Preoperative Record Holding Area Document Type FTURO Summary Primary Physician: Dieter SALMON MD Finalized Date/Time: 02/09/24 08:08:52 Pt. Name: ROSALIE FREEMANO.B./Sex: 1995 Female Med Rec #: [id number] Physician: Dieter SALMON MD Financial #: [id number] Pt. Type: O Room/Bed: / Admit/Disch: 02/09/24 [...] GIUSEPPE Rushing RN, Ruthann 02/09/24 08:08 Normal [facility] Operative Reporton Operative Report Patient: ASHLEE [...] cause of her recurrent urinary tract infections.. [facility] Comment on above: Result Comment: Elec tronically Signed By: Dieter SALMON MD\.br\Date and Time Signed: 02/09/24 08:36 EDT Outpatient Surgery Discharge Instructionon 02-09-2024 Outpatient Surgery Discharge Instruction [id number]#1. 00TIFF [facility] RAD - MISCon 01-29-2024 RAD - MISC [id number]#1.0 0TIFF [facility] C Urineon 01-21-2024 Bacteria identified Cx [...] This test was performed at: [facility], [address] [place] [address], [address]- , , [facility] Comment on above: Performed By: #### 2 [id number] #### [facility] [address] [place] [address] Lab Reportson 01-21-2024 Lab Reports [id number]. 00TIFF [facility] Lab Reports [id number]#1. 00TIFF Normal [facility] Lab Reports [id number]. 00TIFF [facility] Lab Reports [id number]. 00TIFF Normal [facility] RAD - CT Reporton 01-21-2024 RAD - CT Report [id number]. 00TIFF Normal [facility] RAD - Ultrasound Reporton RAD - Ultrasound Report [id number]. 00TIFF Normal [facility] RAD - Ultrasound Report [id number]#1. 00TIFF [facility] Screenson 01-21-2024 Screens [id number]#1.0 0TIFF Normal [facility] Ambulatory Visit Summaryon 0 01-19-2024 Ambulatory Visit [...] JANNETH HOPSON PA-C, URL When: Where: [address] [facility] [place] [address] Medications What How Much When Instructions New sulfamethoxazole-trime thoprim (Bactrim 400 mg-80 mg Tab) 1 Tablets By Mouth Every day as needed for UTI prevention Refills: 3 Pickup at [facility]/pharmacy #[id number] Unchanged guanfacine (guanfacine 3 mg oral tablet, [...] physician if questions or concerns Pharmacy Information [facility]/pharmacy #[id number]: [address], [place] [phone] Allergies No Known Allergies No Known Medication [...] Trouble urinati (more content not included)... Normal [facility] Patient Educationon 01-19-20 24 Patient [...] this condition includes: ? Antibiotic medicine. ? Woay-jhv-ebndupe medicines to treat discomfort. ? Drinking enough [...] these instructions at home: Medicines ? Take fkxq-ycd-odgdcse and prescription medicines only as told by [...] Document Revie (more content not included)... Normal [facility] BNPon 04-17-2023 Natriuretic peptide B (Bld) [Mass/Vol] 246.0 pg/mL Normal <=450.0 [facility] Comment on above: Performed By: #### I NSULIN #### [facility] [address] [place] [address] Dr. Saray Souza CARDIAC NELI ADMITon 023 CK [Catalytic activity/Vol] 47 U/L Normal 26-192 [facility] Comment on above: Performed By: #### I NSULIN #### [facility] [address] [place] [address] Dr. Saray Souza CK.MB [Mass/Vol] 1.02 ng/mL Normal <=3.60 [facility] Comment on above: Performed By: #### I NSULIN #### [facility] [address] [place] [address] Dr. Saray Souza HSTROP 4.5 pg/mL Normal 4.0-51.3 [facility] Comment on above: Result Comment: CUT- OFF POINTS HAVE BEEN ESTABLISHED BASED ON THE FOURTH UNIVERSAL DEFINITIONS OF MYOCARDIAL INFARCTION. THE UPPER REFERENCE LIMIT (URL) OF TROPONIN, DEFINED THE 99TH PERCENTILE OF cTnI DISTRIBUTION IN A REFERENCE POPULATION, HAS BEEN CONFIRMED THE DECISION THRESHOLD FOR IN DIAGNOSIS. Performed By: #### I NSULIN #### [facility] [address] [address] [address] Saray Souza FRANKLIN 36 ng/mL Normal 9-82 [facility] Comment on above: Performed By: #### I NSULIN #### [facility] [address] [address] [address] Saray Souza CBC W MANUAL DIFFon 04-17-20 ATYPICAL LYMPH # Normal [facility] Comment on above: Performed By: #### C EDGARDO #### [facility] [address] [place] [address] Dr. Saray Souza ATYPICAL LYMPH % Normal [facility] Comment on above: Performed By: #### C EDGARDO #### [facility] [address] [address] [address] Saray Souza BAND # 0.3 103/ul Normal 0.0-0.3 [facility] Comment on above: Performed By: #### C EDGARDO #### [facility] [address] [place] [address] Dr. Saray Souza BAND % 1 % Normal 0-5 [facility] Comment on above: Performed By: #### C EDGARDO #### [facility] [address] [place] [address] Dr. Saray Souza BASOM # 0.00 103/ul Normal 0.00-0.10 [facility] Comment on above: Performed By: #### C EDGARDO #### [facility] [address] [place] [address] Dr. Saray Souza BASOM % 0.0 % Critically low 0.2-2.0 [facility] Comment on above: Performed By: #### C EDGARDO #### [facility] [address] [place] [address] Dr. Saray Souza BLAST # Normal [facility] Comment on above: Performed By: #### C EDGARDO #### [facility] [address] [place] [address] Dr. Saray Souza BLAST % Normal [facility] Comment on above: Performed By: #### C EDGARDO #### [facility] [address] [place] [address] Dr. Saray Souza CORRECTED WBC Normal 4.0-11.0 [facility] Comment on above: Performed By: #### C EDGARDO #### [facility] [address] [place] [address] Dr. Saray Souza EOS # 0.00 103/ul Normal 0.00-0.70 [facility] Comment on above: Performed By: #### C EDGARDO #### [facility] [address] [place] [address] Dr. Saray Souza EOS% 0.0 % Critically low 0.9-7.0 [facility] Comment on above: Performed By: #### C EDGARDO #### [facility] [address] [place] [address] Dr. Saray Souza HCT 43.6 % Normal 36.0-48.0 [facility] Comment on above: Performed By: #### C EDGARDO #### [facility] [address] [place] [address] Dr. Saray Souza HGB 14.7 g/dl Normal 12.0-16.0 [facility] Comment on above: Performed By: #### C EDGARDO #### [facility] [address] [place] [address] Dr. Saray Souza LYMPHM # 1.55 103/ul Normal 1.20-3.80 [facility] Comment on above: Performed By: #### C EDGARDO #### [facility] [address] [place] [address] Dr. Saray Souza LYMPHM% 6.0 % Critically low 20.5-60.0 [facility] Comment on above: Performed By: #### C EDGARDO #### [facility] [address] [place] [address] Dr. Saray Souza MCH 30.3 pg Normal 26.7-34.0 [facility] Comment on above: Performed By: #### C EDGARDO #### [facility] [address] [place] [address] Dr. Saray Souza MCHC 33.7 g/dl Normal 29.9-35.2 [facility] Comment on above: Performed By: #### C EDGARDO #### [facility] [address] [place] [address] Dr. Saray Souza MCV 89.9 fL Normal 81.0-99.0 [facility] Comment on above: Performed By: #### C BCMAN #### [facility] [address] [address] [address] Saray Souza METAMYELOCYTE # Normal [facility] Comment on above: Performed By: #### C BCPRESLEY #### [facility] [address] [place] [address] Dr. Saray Souza METAMYELOCYTE % Normal [facility] Comment on above: Performed By: #### C BCMAN #### [facility] [address] [address] [address] Saray Souza MONOM# 2.06 103/ul Critically high 0.30-0.80 [facility] Comment on above: Performed By: #### C BCPRESLEY #### [facility] [address] [place] [address] Dr. Saray Souza MONOM% 8.0 % Normal 1.7-12.0 [facility] Comment on above: Performed By: #### C BCMAN #### [facility] [address] [place] [address] Dr. Saray Souza MPV 8.8 fL Critically low 9.5-13.5 [facility] Comment on above: Performed By: #### C EDGARDO #### [facility] [address] [place] [address] Dr. Saray Souza MYELOCYTE # Normal [facility] Comment on above: Performed By: #### C BCPRESLEY #### [facility] [address] [place] [address] Dr. Saray Souza MYELOCYTE % Normal [facility] Comment on above: Performed By: #### C BCPRESLEY #### [facility] [address] [place] [address] Dr. Saray Souza NRBC Normal [facility] Comment on above: Performed By: #### C BCPRESLEY #### [facility] [address] [place] [address] Dr. Saray Souza PLT 397 103/ul Normal 150-450 [facility] Comment on above: Performed By: #### C BCMAN #### [facility] [address] [address] [address] Saray Souza RBC 4.85 106/ul Normal 4.20-5.40 [facility] Comment on above: Performed By: #### C EDGARDO #### [facility] [address] [address] [address] Saray Souza RDW 12.0 % Normal 11.0-15.0 [facility] Comment on above: Performed By: #### C EDGARDO #### [facility] [address] [address] [address] Saray Souza SEG # 21.93 103/ul Critically high 1.40-6.50 [facility] Comment on above: Performed By: #### C EDGARDO #### [facility] [address] [place] [address] Dr. Saray Souza SEG % 85.0 % Critically high 43.0-75.0 [facility] Comment on above: Performed By: #### C EDGARDO #### [facility] [address] [place] [address] Dr. Saray Souza WBC 25.8 103/ul Critically high 4.0-11.0 [facility] Comment on above: Performed By: #### C EDGARDO #### [facility] [address] [place] [address] Dr. Saray Souza CULTURE URINEon 04-17-2023 CULTURE URINE Culture Observations : LORENZO TO FOLLOW. Isolate 1 Enterococcus faecalis 20,000 cfu/mL of Normal [facility] Comment on above: Performed By: #### C BC #### [facility] [address] [place] [address] Dr. Saray Souza ER URINE PROFILEon 3 Bilirubin Ql (U) Negative Normal NEGATIVE [facility] Comment on above: Performed By: #### C BC #### [facility] [address] [place] [address] Dr. Saray Souza Clarity (U) CLEAR Normal CLEAR [facility] Comment on above: Performed By: #### C BC #### [facility] [address] [place] [address] Dr. Saray Souza Color (U) LT. YELLOW Normal YELLOW [facility] Comment on above: Performed By: #### C BC #### [facility] [address] [place] [address] Dr. Saray JHA A micrscopic examination will be performed if indicated. Normal [facility] Comment on above: Performed By: #### C BC #### [facility] [address] [place] [address] Dr. Saray Souza Glucose Ql (U) Negative Normal NEGATIVE [facility] Comment on above: Performed By: #### C BC #### [facility] [address] [place] [address] Dr. Saray Souza Hemoglobin Ql (U) Negative Normal NEGATIVE [facility] Comment on above: Performed By: #### C BC #### [facility] [address] [place] [address] Dr. Saray Souza Ketones Ql (U) Negative Normal NEGATIVE [facility] Comment on above: Performed By: #### C BC #### [facility] [address] [place] [address] Dr. Saray Souza LEUKOCYTES SMALL Abnormal NEGATIVE [facility] Comment on above: Performed By: #### C BC #### [facility] [address] [place] [address] Dr. Saray Souza Nitrite Ql (U) Negative Normal NEGATIVE [facility] Comment on above: Performed By: #### C BC #### [facility] [address] [place] [address] Dr. Saray Souza pH (U) 6.5 [pH] Normal 5-9 [facility] Comment on above: Performed By: #### C BC #### [facility] [address] [place] [address] Dr. Saray Souza SPEC GRAVITY 1.025 Normal 1.005-<=1.025 [facility] Comment on above: Performed By: #### C BC #### [facility] [address] [place] [address] Dr. Saray Souza UA PROTEIN Negative Normal NEGATIVE/ TRACE [facility] Comment on above: Performed By: #### C BC #### [facility] [address] [address] [address] Saray Souza UR MICRO IND INDICATED Normal [facility] Comment on above: Performed By: #### C BC #### [facility] [address] [address] [address] Saray Souza Urobilinogen Qn (U) 0.2 {Janine'U}/dL Normal 0.2 - 1. 0 [facility] Comment on above: Performed By: #### C BC #### [facility] [address] [place] [address] Dr. Saray Souza URon 04-17-2023 , QUAL Negative Normal NEGATIVE [facility] Comment on above: Performed By: #### C BC #### [facility] [address] [place] [address] Dr. Saray Souza PROF 14(COMP METB)on 023 Albumin [Mass/Vol] 3.0 g/dL Critically low 3.4-5.0 [facility] Comment on above: Performed By: #### I NSULIN #### [facility] [address] [place] [address] Dr. Saray Souza Albumin/Globulin [Mass ratio] 0.9 {ratio} Normal [facility] Comment on above: Performed By: #### I NSULIN #### [facility] [address] [place] [address] Dr. Saray Souza ALP [Catalytic activity/Vol] 54 U/L Normal 46-116 [facility] Comment on above: Performed By: #### I NSULIN #### [facility] [address] [address] [address] Saray Souza ALT [Catalytic activity/Vol] 27 U/L Normal 14-59 [facility] Comment on above: Performed By: #### I NSULIN #### [facility] [address] [place] [address] Dr. Saray Souza Anion gap [Moles/Vol] 12.9 mmol/L Normal [facility] Comment on above: Performed By: #### I NSULIN #### [facility] [address] [address] [address] Saray Souza AST [Catalytic activity/Vol] 12 U/L Critically low 15-37 [facility] Comment on above: Performed By: #### I NSULIN #### [facility] [address] [address] [address] Saray Souza Bilirubin [Mass/Vol] 0.3 mg/dL Normal 0.2-1.0 [facility] Comment on above: Performed By: #### I NSULIN #### [facility] [address] [address] [address] Saray Souza Calcium [Mass/Vol] 8.1 mg/dL Critically low 8.5-10.1 [facility] Comment on above: Performed By: #### I NSULIN #### [facility] [address] [place] [address] Dr. Saray Souza Chloride [Moles/Vol] 102 mmol/L Normal 98-107 [facility] Comment on above: Performed By: #### I NSULIN #### [facility] [address] [address] [address] Saray Souza CO2 [Moles/Vol] 26.2 mmol/L Normal 21.0-32.0 [facility] Comment on above: Performed By: #### I NSULIN #### [facility] [address] [address] [address] Saray Souza Creatinine [Mass/Vol] 0.87 mg/dL Normal 0.55-1.02 [facility] Comment on above: Performed By: #### I NSULIN #### [facility] [address] [address] [address] Saray Souza EGFR-AF YEMENI >60 Normal >=60 [facility] Comment on above: Performed By: #### I NSULIN #### [facility] [address] [address] [address] Saray Souza EGFR-NON AF YEMENI >60 Normal >=60 [facility] Comment on above: Performed By: #### I NSULIN #### [facility] [address] [address] [address] Saray Souza Globulin (S) [Mass/Vol] 3.2 g/dL Normal [facility] Comment on above: Performed By: #### I NSULIN #### [facility] [address] [address] [address] Saray Souza Glucose [Mass/Vol] 206 mg/dL Critically high 74-106 [facility] Comment on above: Performed By: #### I NSULIN #### [facility] [address] [place] [address] Dr. Saray Souza Potassium [Moles/Vol] 4.1 mmol/L Normal 3.5-5.1 [facility] Comment on above: Performed By: #### I NSULIN #### [facility] [address] [place] [address] Dr. Saray Souza Protein [Mass/Vol] 6.2 g/dL Critically low 6.4-8.2 [facility] Comment on above: Performed By: #### I NSULIN #### [facility] [address] [place] [address] Dr. Saray Souza Sodium [Moles/Vol] 137 mmol/L Normal 136-145 [facility] Comment on above: Performed By: #### I NSULIN #### [facility] [address] [place] [address] Dr. Saray Souza Urea nitrogen [Mass/Vol] 19.0 mg/dL Critically high 7.0-18.0 [facility] Comment on above: Performed By: #### I NSULIN #### [facility] [address] [place] [address] Dr. Saray Souza Urea nitrogen/Creatinine [Mass ratio] 21.8 mg/mg Normal [facility] Comment on above: Performed By: #### I NSULIN #### [facility] [address] [place] [address] Dr. Saray Souza TSHon 04-17-2023 TSH 0.553 uIU/mL Normal 0.358-3.740 [facility] Comment on above: Performed By: #### I NSULIN #### [facility] [address] [place] [address] Dr. Saray Souza URINE MICROSCOPIC ONLYon BACTERIA TRACE Abnormal NONE SEEN [facility] Comment on above: Performed By: #### C BC #### [facility] [address] [place] [address] Dr. Saray Souza Bacteria identified Cx Nom (U) INDICATED Normal [facility] Comment on above: Performed By: #### C BC #### [facility] [address] [place] [address] Dr. Saray Souza CAST NONE SEEN Normal NONE SEEN [facility] Comment on above: Performed By: #### C BC #### [facility] [address] [place] [address] Dr. Saray Souza Crystals LM Nom (Urine sed) NONE SEEN Normal NONE SEEN [facility] Comment on above: Performed By: #### C BC #### [facility] [address] [place] [address] Dr. Saray Souza Epithelial cells LM Ql (Urine sed) RARE Normal NONE SEEN /RARE [facility] Comment on above: Performed By: #### C BC #### [facility] [address] [place] [address] Dr. Saray Souza MUCOUS NONE SEEN Normal NONE SEEN [facility] Comment on above: Performed By: #### C BC #### [facility] [address] [place] [address] Dr. Saray Souza RBC 0-2 Normal 0-2 [facility] Comment on above: Performed By: #### C BC #### [facility] [address] [place] [address] Dr. Saray Souza WBC 5-10 Abnormal NONE SEEN [facility] Comment on above: Performed By: #### C BC #### [facility] [address] [place] [address] Dr. Saray Souza XR CHEST 2 Von [...] INSULINon 04-07-2023 Insulin 11.3 uIU/mL Normal 2.6-24.9 [facility] Comment on above: Performed By: #### I NSULIN #### [facility] [address] [address] [address] Saray Souza US KIDNEYS BLADDERon 023 [...] 04-02-2023 Insulin 37.5 uIU/mL Critically high 2.6-24.9 [facility] Comment on above: Performed By: #### I NSULIN #### [facility] [address] [place] [address] Dr. Saray Souza CBC AUTO DIFFon 04-01-2023 BASO # 0.0 103/ul Normal 0.0-0.1 [facility] Comment on above: Performed By: #### C BC #### [facility] [address] [place] [address] Dr. Saray Souza Basophils/100 WBC (Bld) 0.5 % Normal 0.2-2.0 [facility] Comment on above: Performed By: #### C BC #### [facility] [address] [place] [address] Dr. Saray Souza EO # 0.2 103/ul Normal 0.0-0.7 [facility] Comment on above: Performed By: #### C BC #### [facility] [address] [place] [address] Dr. Saray Souza Eosinophils/100 WBC (Bld) 2.3 % Normal 0.9-7.0 [facility] Comment on above: Performed By: #### C BC #### [facility] [address] [place] [address] Dr. Saray Souza Erythrocyte distribution width (RBC) [Ratio] 11.9 % Normal 11.0-15.0 [facility] Comment on above: Performed By: #### C BC #### [facility] [address] [place] [address] Dr. Saray Souza Hematocrit (Bld) [Volume fraction] 42.2 % Normal 36.0-48.0 [facility] Comment on above: Performed By: #### C BC #### [facility] [address] [place] [address] Dr. Saray Souza Hemoglobin (Bld) [Mass/Vol] 13.7 g/dL Normal 12.0-16.0 [facility] Comment on above: Performed By: #### C BC #### [facility] [address] [place] [address] Dr. Saray Souza IG # 0.02 10e3/ul Normal 0.00-0.03 [facility] Comment on above: Performed By: #### C BC #### [facility] [address] [place] [address] Dr. Saray Souza IG % 0.3 % Normal 0.0-0.5 [facility] Comment on above: Performed By: #### C BC #### [facility] [address] [place] [address] Dr. Saray Souza LYMPH # 1.6 103/ul Normal 1.2-3.8 [facility] Comment on above: Performed By: #### C BC #### [facility] [address] [place] [address] Dr. Saray Souza Lymphocytes/100 WBC (Bld) 21.5 % Normal 20.5-60.0 [facility] Comment on above: Performed By: #### C BC #### [facility] [address] [place] [address] Dr. Saray Souza MANUAL DIFF REQ NO Normal [facility] Comment on above: Performed By: #### C BC #### [facility] [address] [place] [address] Dr. Saray Souza MCH (RBC) [Entitic mass] 30.0 pg Normal 26.7-34.0 [facility] Comment on above: Performed By: #### C BC #### [facility] [address] [place] [address] Dr. Saray Souza MCHC (RBC) [Mass/Vol] 32.5 g/dL Normal 29.9-35.2 [facility] Comment on above: Performed By: #### C BC #### [facility] [address] [place] [address] Dr. Saray Souza MCV (RBC) [Entitic vol] 92.5 fL Normal 81.0-99.0 [facility] Comment on above: Performed By: #### C BC #### [facility] [address] [place] [address] Dr. Saray Souza MONO # 0.7 103/ul Normal 0.3-0.8 [facility] Comment on above: Performed By: #### C BC #### [facility] [address] [place] [address] Dr. Saray Souza Monocytes/100 WBC (Bld) 9.6 % Normal 1.7-12.0 [facility] Comment on above: Performed By: #### C BC #### [facility] [address] [place] [address] Dr. Saray Souza NEUT # 5.0 103/ul Normal 1.4-6.5 [facility] Comment on above: Performed By: #### C BC #### [facility] [address] [place] [address] Dr. Saray Souza Neutrophils/100 WBC (Bld) 65.8 % Normal 43.0-75.0 [facility] Comment on above: Performed By: #### C BC #### [facility] [address] [place] [address] Dr. Saray Souza Platelet mean volume (Bld) [Entitic vol] 8.9 fL Critically low 9.5-13.5 [facility] Comment on above: Performed By: #### C BC #### [facility] [address] [place] [address] Dr. Saray Souza PLT 293 103/ul Normal 150-450 [facility] Comment on above: Performed By: #### C BC #### [facility] [address] [place] [address] Dr. Saray Souza RBC 4.56 106/ul Normal 4.20-5.40 [facility] Comment on above: Performed By: #### C BC #### [facility] [address] [place] [address] Dr. Saray Souza WBC 7.5 103/ul Normal 4.0-11.0 [facility] Comment on above: Performed By: #### C BC #### [facility] [address] [place] [address] Dr. Saray Souza CULTURE URINEon 04-01-2023 CULTURE URINE Culture Observations : MODERATE GROWTH OF MIXED GENITAL CARMELO. NO POTENTIAL PATHOGENS SEEN. Normal [facility] Comment on above: Performed By: #### C BC #### [facility] [address] [place] [address] Dr. Saray Souza FREE THYROXINE INDEX T7on FTI 2.51 Normal 1.30-4.50 [facility] Comment on above: Performed By: #### I NSULIN #### [facility] [address] [place] [address] Dr. Saray Souza T3U 33.0 % Normal 30.0-39.0 [facility] Comment on above: Performed By: #### I NSULIN #### [facility] [address] [place] [address] Dr. Saray Souza T4 [Mass/Vol] 7.60 ug/dL Normal 4.80-13.90 [facility] Comment on above: Performed By: #### I CURLYULIN #### [facility] [address] [place] [address] Dr. Saray Souza IRONon 04-01-2023 Iron [Mass/Vol] 151.0 ug/dL Normal 50.0-170.0 [facility] Comment on above: Performed By: #### C EDGARDO #### [facility] [address] [place] [address] Dr. Saray Souza PROF 14(COMP METB)on 023 Albumin [Mass/Vol] 3.7 g/dL Normal 3.4-5.0 [facility] Comment on above: Performed By: #### C EDGARDO #### [facility] [address] [place] [address] Dr. Saray Souza Albumin/Globulin [Mass ratio] 1.1 {ratio} Normal [facility] Comment on above: Performed By: #### C EDGARDO #### [facility] [address] [place] [address] Dr. Saray Souza ALP [Catalytic activity/Vol] 81 U/L Normal 46-116 [facility] Comment on above: Performed By: #### C EDGARDO #### [facility] [address] [place] [address] Dr. Saray Souza ALT [Catalytic activity/Vol] 33 U/L Normal 14-59 [facility] Comment on above: Performed By: #### C EDGARDO #### [facility] [address] [place] [address] Dr. Saray Souza Anion gap [Moles/Vol] 10.2 mmol/L Normal [facility] Comment on above: Performed By: #### C EDGARDO #### [facility] [address] [place] [address] Dr. Saray Souza AST [Catalytic activity/Vol] 22 U/L Normal 15-37 [facility] Comment on above: Performed By: #### C EDGARDO #### [facility] [address] [place] [address] Dr. Saray Souza Bilirubin [Mass/Vol] 0.3 mg/dL Normal 0.2-1.0 [facility] Comment on above: Performed By: #### C EDGARDO #### [facility] [address] [address] [address] Saray Souza Calcium [Mass/Vol] 8.6 mg/dL Normal 8.5-10.1 [facility] Comment on above: Performed By: #### C EDGARDO #### [facility] [address] [place] [address] Dr. aSray Souza Chloride [Moles/Vol] 105 mmol/L Normal 98-107 [facility] Comment on above: Performed By: #### C EDGARDO #### [facility] [address] [place] [address] Dr. Saray Souza CO2 [Moles/Vol] 30.4 mmol/L Normal 21.0-32.0 [facility] Comment on above: Performed By: #### C EDGARDO #### [facility] [address] [place] [address] Dr. Saray Souza Creatinine [Mass/Vol] 0.72 mg/dL Normal 0.55-1.02 [facility] Comment on above: Performed By: #### C EDGARDO #### [facility] [address] [place] [address] Dr. Saray Souza EGFR-AF YEMENI >60 Normal >=60 [facility] Comment on above: Performed By: #### C EDGARDO #### [facility] [address] [place] [address] Dr. Saray Souza EGFR-NON AF YEMENI >60 Normal >=60 [facility] Comment on above: Performed By: #### C EDGARDO #### [facility] [address] [place] [address] Dr. Saray Souza Globulin (S) [Mass/Vol] 3.5 g/dL Normal [facility] Comment on above: Performed By: #### C BCMAN #### [facility] [address] [address] [address] Saray Souza Glucose [Mass/Vol] 89 mg/dL Normal 74-106 [facility] Comment on above: Performed By: #### C BCMAN #### [facility] [address] [place] [address] Dr. Saray Souza Potassium [Moles/Vol] 3.6 mmol/L Normal 3.5-5.1 [facility] Comment on above: Performed By: #### C BCMAN #### [facility] [address] [place] [address] Dr. Saray Souza Protein [Mass/Vol] 7.2 g/dL Normal 6.4-8.2 [facility] Comment on above: Performed By: #### C EDGARDO #### [facility] [address] [place] [address] Dr. Saray Souza Sodium [Moles/Vol] 142 mmol/L Normal 136-145 [facility] Comment on above: Performed By: #### C BCPRESLEY #### [facility] [address] [place] [address] Dr. Saray Souza Urea nitrogen [Mass/Vol] 12.0 mg/dL Normal 7.0-18.0 [facility] Comment on above: Performed By: #### C EDGARDO #### [facility] [address] [place] [address] Dr. Saray Souza Urea nitrogen/Creatinine [Mass ratio] 16.7 mg/mg Normal [facility] Comment on above: Performed By: #### C DAVIDMAN #### [facility] [address] [place] [address] Dr. Saray Souza TSHon 04-01-2023 TSH 1.708 uIU/mL Normal 0.358-3.740 [facility] Comment on above: Performed By: #### I NSULIN #### [facility] [address] [place] [address] Dr. Saray Souza UA RANDOM W/MICROSCOPICon BACTERIA SMALL Abnormal NONE SEEN [facility] Comment on above: Performed By: #### I NSULIN #### [facility] [address] [place] [address] Dr. Saray Souza Bilirubin Ql (U) Negative Normal NEGATIVE [facility] Comment on above: Performed By: #### I NSULIN #### [facility] [address] [place] [address] Dr. Saray Souza CAST NONE SEEN Normal NONE SEEN [facility] Comment on above: Performed By: #### I NSULIN #### [facility] [address] [place] [address] Dr. Saray Souza Clarity (U) CLEAR Normal CLEAR [facility] Comment on above: Performed By: #### I NSULIN #### [facility] [address] [place] [address] Dr. Saray Souza Color (U) YELLOW Normal YELLOW [facility] [facility] Comment on above: Performed By: #### I NSULIN #### [facility] [address] [place] [address] Dr. Saray Souza Crystals LM Nom (Urine sed) NONE SEEN Normal NONE SEEN [facility] Comment on above: Performed By: #### I NSULIN #### [facility] [address] [place] [address] Dr. Saray Souza Epithelial cells LM Ql (Urine sed) FEW Abnormal NONE SEEN /RARE [facility] Comment on above: Performed By: #### I NSULIN #### [facility] [address] [place] [address] Dr. Saray Souza Glucose Ql (U) Negative Normal NEGATIVE [facility] Comment on above: Performed By: #### I NSULIN #### [facility] [address] [place] [address] Dr. Saray Souza Hemoglobin Ql (U) Negative Normal NEGATIVE [facility] Comment on above: Performed By: #### I NSULIN #### [facility] [address] [place] [address] Dr. Saray Souza Ketones Ql (U) TRACE Abnormal NEGATIVE [facility] Comment on above: Performed By: #### I NSULIN #### [facility] [address] [place] [address] Dr. Saray Souza LEUKOCYTES SMALL Abnormal NEGATIVE [facility] Comment on above: Performed By: #### I NSULIN #### [facility] [address] [place] [address] Dr. Saray Souza MUCOUS NONE SEEN Normal NONE SEEN [facility] Comment on above: Performed By: #### I NSULIN #### [facility] [address] [address] [address] Saray Souza Nitrite Ql (U) Negative Normal NEGATIVE [facility] Comment on above: Performed By: #### I NSULIN #### [facility] [address] [place] [address] Dr. Saray Souza pH (U) 5.5 [pH] Normal 5-9 [facility] Comment on above: Performed By: #### I NSULIN #### [facility] [address] [place] [address] Dr. Saray Souza RBC 0-2 Normal 0-2 [facility] Comment on above: Performed By: #### I NSULIN #### [facility] [address] [place] [address] Dr. Saray Souza SPEC GRAVITY >=1.030 Abnormal 1.005-<=1.025 [facility] Comment on above: Performed By: #### I NSULIN #### [facility] [address] [place] [address] Dr. Saray Souza UA PROTEIN Negative Normal NEGATIVE/ TRACE [facility] Comment on above: Performed By: #### I NSULIN #### [facility] [address] [place] [address] Dr. Saray Souza Urobilinogen Qn (U) 0.2 {Janine'U}/dL Normal 0.2 - 1. 0 [facility] Comment on above: Performed By: #### I NSULIN #### [facility] [address] [place] [address] Dr. Saray Souza WBC 5-10 Abnormal NONE SEEN [facility] Comment on above: Performed By: #### I NSULIN #### [facility] [address] [place] [address] Dr. Saray Souza INSULINon 02-14-2023 Insulin 12.8 uIU/mL Normal 2.6-24.9 [facility] Comment on above: Performed By: #### C BC #### [facility] [address] [place] [address] Dr. Saray Souza CBC AUTO DIFFon 02-13-2023 BASO # 0.0 103/ul Normal 0.0-0.1 [facility] Comment on above: Performed By: #### C BC #### [facility] [address] [place] [address] Dr. Saray Souza Basophils/100 WBC (Bld) 0.4 % Normal 0.2-2.0 [facility] Comment on above: Performed By: #### C BC #### [facility] [address] [place] [address] Dr. Saray Souza EO # 0.1 103/ul Normal 0.0-0.7 [facility] Comment on above: Performed By: #### C BC #### [facility] [address] [place] [address] Dr. Saray Souza Eosinophils/100 WBC (Bld) 1.6 % Normal 0.9-7.0 [facility] Comment on above: Performed By: #### C BC #### [facility] [address] [place] [address] Dr. Saray Souza Erythrocyte distribution width (RBC) [Ratio] 11.9 % Normal 11.0-15.0 [facility] Comment on above: Performed By: #### C BC #### [facility] [address] [place] [address] Dr. Saray Souza Hematocrit (Bld) [Volume fraction] 41.9 % Normal 36.0-48.0 [facility] Comment on above: Performed By: #### C BC #### [facility] [address] [place] [address] Dr. Saray Souza Hemoglobin (Bld) [Mass/Vol] 13.7 g/dL Normal 12.0-16.0 [facility] Comment on above: Performed By: #### C BC #### [facility] [address] [place] [address] Dr. Saray Souza IG # 0.02 10e3/ul Normal 0.00-0.03 [facility] Comment on above: Performed By: #### C BC #### [facility] [address] [place] [address] Dr. Saray Souza IG % 0.3 % Normal 0.0-0.5 [facility] Comment on above: Performed By: #### C BC #### [facility] [address] [place] [address] Dr. Saray Souza LYMPH # 1.4 103/ul Normal 1.2-3.8 [facility] Comment on above: Performed By: #### C BC #### [facility] [address] [place] [address] Dr. Saray Souza Lymphocytes/100 WBC (Bld) 18.6 % Critically low 20.5-60.0 [facility] Comment on above: Performed By: #### C BC #### [facility] [address] [place] [address] Dr. Saray Souza MANUAL DIFF REQ NO Normal [facility] Comment on above: Performed By: #### C BC #### [facility] [address] [place] [address] Dr. Saray Souza MCH (RBC) [Entitic mass] 29.9 pg Normal 26.7-34.0 [facility] Comment on above: Performed By: #### C BC #### [facility] [address] [place] [address] Dr. Saray Souza MCHC (RBC) [Mass/Vol] 32.7 g/dL Normal 29.9-35.2 [facility] Comment on above: Performed By: #### C BC #### [facility] [address] [place] [address] Dr. Saray Souza MCV (RBC) [Entitic vol] 91.5 fL Normal 81.0-99.0 [facility] Comment on above: Performed By: #### C BC #### [facility] [address] [place] [address] Dr. Saray Souza MONO # 0.6 103/ul Normal 0.3-0.8 [facility] Comment on above: Performed By: #### C BC #### [facility] [address] [place] [address] Dr. Saray Souza Monocytes/100 WBC (Bld) 8.3 % Normal 1.7-12.0 [facility] Comment on above: Performed By: #### C BC #### [facility] [address] [place] [address] Dr. Saray Souza NEUT # 5.5 103/ul Normal 1.4-6.5 [facility] Comment on above: Performed By: #### C BC #### [facility] [address] [place] [address] Dr. Saray Souza Neutrophils/100 WBC (Bld) 70.8 % Normal 43.0-75.0 [facility] Comment on above: Performed By: #### C BC #### [facility] [address] [place] [address] Dr. Saray Souza Platelet mean volume (Bld) [Entitic vol] 9.0 fL Critically low 9.5-13.5 [facility] Comment on above: Performed By: #### C BC #### [facility] [address] [place] [address] Dr. Saray Souza PLT 271 103/ul Normal 150-450 [facility] Comment on above: Performed By: #### C BC #### [facility] [address] [place] [address] Dr. Saray Souza RBC 4.58 106/ul Normal 4.20-5.40 [facility] Comment on above: Performed By: #### C BC #### [facility] [address] [place] [address] Dr. Saray Souza WBC 7.7 103/ul Normal 4.0-11.0 [facility] Comment on above: Performed By: #### C BC #### [facility] [address] [place] [address] Dr. Saray Souza FREE THYROXINE INDEX T7on FTI 2.56 Normal 1.30-4.50 [facility] Comment on above: Performed By: #### I NSULIN #### [facility] [address] [address] [address] Saray Souza T3U 36.0 % Normal 30.0-39.0 [facility] Comment on above: Performed By: #### I NSULIN #### [facility] [address] [address] [address] Saray Souza T4 [Mass/Vol] 7.10 ug/dL Normal 4.80-13.90 [facility] Comment on above: Performed By: #### I NSULIN #### [facility] [address] [place] [address] Dr. Saray Souza IRONon 02-13-2023 Iron [Mass/Vol] 130.0 ug/dL Normal 50.0-170.0 [facility] Comment on above: Performed By: #### C EDGARDO #### [facility] [address] [place] [address] Dr. Saray Souza PROF 14(COMP METB)on 023 Albumin [Mass/Vol] 3.8 g/dL Normal 3.4-5.0 [facility] Comment on above: Performed By: #### I NSULIN #### [facility] [address] [place] [address] Dr. Saray Souza Albumin/Globulin [Mass ratio] 1.2 {ratio} Normal [facility] Comment on above: Performed By: #### I NSULIN #### [facility] [address] [place] [address] Dr. Saray Souza ALP [Catalytic activity/Vol] 82 U/L Normal 46-116 [facility] Comment on above: Performed By: #### I NSULIN #### [facility] [address] [address] [address] Saray Souza ALT [Catalytic activity/Vol] 25 U/L Normal 14-59 [facility] Comment on above: Performed By: #### I NSULIN #### [facility] [address] [address] [address] Saray Souza Anion gap [Moles/Vol] 12.7 mmol/L Normal [facility] Comment on above: Performed By: #### I NSULIN #### [facility] [address] [address] [address] Saray Souza AST [Catalytic activity/Vol] 19 U/L Normal 15-37 [facility] Comment on above: Performed By: #### I NSULIN #### [facility] [address] [address] [address] Saray Souza Bilirubin [Mass/Vol] 0.3 mg/dL Normal 0.2-1.0 [facility] Comment on above: Performed By: #### I NSULIN #### [facility] [address] [address] [address] Saray Souza Calcium [Mass/Vol] 8.8 mg/dL Normal 8.5-10.1 [facility] Comment on above: Performed By: #### I NSULIN #### [facility] [address] [address] [address] Saray Souza Chloride [Moles/Vol] 101 mmol/L Normal 98-107 [facility] Comment on above: Performed By: #### I NSULIN #### [facility] [address] [address] [address] Saray Souza CO2 [Moles/Vol] 27.3 mmol/L Normal 21.0-32.0 [facility] Comment on above: Performed By: #### I NSULIN #### [facility] [address] [address] [address] Saray Souza Creatinine [Mass/Vol] 0.69 mg/dL Normal 0.55-1.02 [facility] Comment on above: Performed By: #### I NSULIN #### [facility] [address] [address] [address] Saray Souza EGFR-AF YEMENI >60 Normal >=60 [facility] Comment on above: Performed By: #### I NSULIN #### [facility] [address] [place] [address] Dr. Saray Souza EGFR-NON AF YEMENI >60 Normal >=60 [facility] Comment on above: Performed By: #### I NSULIN #### [facility] [address] [place] [address] Dr. Saray Souza Globulin (S) [Mass/Vol] 3.3 g/dL Normal [facility] Comment on above: Performed By: #### I NSULIN #### [facility] [address] [address] [address] Saray Souza Glucose [Mass/Vol] 83 mg/dL Normal 74-106 [facility] Comment on above: Performed By: #### I NSULIN #### [facility] [address] [place] [address] Dr. Saray Souza Potassium [Moles/Vol] 4.0 mmol/L Normal 3.5-5.1 [facility] Comment on above: Performed By: #### I NSULIN #### [facility] [address] [place] [address] Dr. Saray Souza Protein [Mass/Vol] 7.1 g/dL Normal 6.4-8.2 [facility] Comment on above: Performed By: #### I NSULIN #### [facility] [address] [place] [address] Dr. Saray Souza Sodium [Moles/Vol] 137 mmol/L Normal 136-145 [facility] Comment on above: Performed By: #### I NSULIN #### [facility] [address] [place] [address] Dr. Saray Souza Urea nitrogen [Mass/Vol] 10.0 mg/dL Normal 7.0-18.0 [facility] Comment on above: Performed By: #### I NSULIN #### [facility] [address] [place] [address] Dr. Saray Souza Urea nitrogen/Creatinine [Mass ratio] 14.5 mg/mg Normal [facility] Comment on above: Performed By: #### I NSULIN #### [facility] [address] [place] [address] Dr. Saray Souza TSHon 02-13-2023 TSH 2.745 uIU/mL Normal 0.358-3.740 [facility] Comment on above: Performed By: #### I NSULIN #### [facility] [address] [place] [address] Dr. Saray Souza AMYLASEon 02-04-2023 Amylase [Catalytic activity/Vol] 45 U/L Normal 25-115 [facility] Comment on above: Performed By: #### T SH, CMP, HSTROPN, LIPA, KELLE #### [facility] [address] [place] [address] Dr. Saray Souza CBC AUTO DIFFon 02-04-2023 BASO # 0.0 103/ul Normal 0.0-0.1 [facility] Comment on above: Performed By: #### C BC #### [facility] [address] [place] [address] Dr. Saray Souza Basophils/100 WBC (Bld) 0.4 % Normal 0.2-2.0 [facility] Comment on above: Performed By: #### C BC #### [facility] [address] [place] [address] Dr. Saray Souza EO # 0.1 103/ul Normal 0.0-0.7 [facility] Comment on above: Performed By: #### C BC #### [facility] [address] [place] [address] Dr. Saray Souza Eosinophils/100 WBC (Bld) 1.7 % Normal 0.9-7.0 [facility] Comment on above: Performed By: #### C BC #### [facility] [address] [place] [address] Dr. Saray Souza Erythrocyte distribution width (RBC) [Ratio] 12.0 % Normal 11.0-15.0 [facility] Comment on above: Performed By: #### C BC #### [facility] [address] [place] [address] Dr. Saray Souza Hematocrit (Bld) [Volume fraction] 42.3 % Normal 36.0-48.0 [facility] Comment on above: Performed By: #### C BC #### [facility] [address] [place] [address] Dr. Saray Souza Hemoglobin (Bld) [Mass/Vol] 13.9 g/dL Normal 12.0-16.0 [facility] Comment on above: Performed By: #### C BC #### [facility] [address] [place] [address] Dr. Saray Souza IG # 0.03 10e3/ul Normal 0.00-0.03 [facility] Comment on above: Performed By: #### C BC #### [facility] [address] [place] [address] Dr. Saray Souza IG % 0.4 % Normal 0.0-0.5 [facility] Comment on above: Performed By: #### C BC #### [facility] [address] [place] [address] Dr. Saray Souza LYMPH # 1.5 103/ul Normal 1.2-3.8 [facility] Comment on above: Performed By: #### C BC #### [facility] [address] [place] [address] Dr. Saray Souza Lymphocytes/100 WBC (Bld) 20.4 % Critically low 20.5-60.0 [facility] Comment on above: Performed By: #### C BC #### [facility] [address] [place] [address] Dr. Saray Souza MANUAL DIFF REQ NO Normal [facility] Comment on above: Performed By: #### C BC #### [facility] [address] [place] [address] Dr. Saray Souza MCH (RBC) [Entitic mass] 30.0 pg Normal 26.7-34.0 [facility] Comment on above: Performed By: #### C BC #### [facility] [address] [place] [address] Dr. Saray Souza MCHC (RBC) [Mass/Vol] 32.9 g/dL Normal 29.9-35.2 [facility] Comment on above: Performed By: #### C BC #### [facility] [address] [id number] Saray Souza MCV (RBC) [Entitic vol] 91.2 fL Normal 81.0-99.0 [facility] Comment on above: Performed By: #### C BC #### [facility] [address] [address] [address] Saray Souza MONO # 0.6 103/ul Normal 0.3-0.8 [facility] Comment on above: Performed By: #### C BC #### [facility] [address] [place] [address] Dr. Saray Souza Monocytes/100 WBC (Bld) 7.7 % Normal 1.7-12.0 [facility] Comment on above: Performed By: #### C BC #### [facility] [address] [place] [address] Dr. Saray Souza NEUT # 5.2 103/ul Normal 1.4-6.5 [facility] Comment on above: Performed By: #### C BC #### [facility] [address] [place] [address] Dr. Saray Souza Neutrophils/100 WBC (Bld) 69.4 % Normal 43.0-75.0 [facility] Comment on above: Performed By: #### C BC #### [facility] [address] [place] [address] Dr. Saray Souza Platelet mean volume (Bld) [Entitic vol] 9.0 fL Critically low 9.5-13.5 [facility] Comment on above: Performed By: #### C BC #### [facility] [address] [place] [address] Dr. Saray Souza PLT 292 103/ul Normal 150-450 [facility] Comment on above: Performed By: #### C BC #### [facility] [address] [place] [address] Dr. Saray Souza RBC 4.64 106/ul Normal 4.20-5.40 [facility] Comment on above: Performed By: #### C BC #### [facility] [address] [place] [address] Dr. Saray Souza WBC 7.5 103/ul Normal 4.0-11.0 [facility] Comment on above: Performed By: #### C BC #### [facility] [address] [place] [address] Dr. Saray Souza CULTURE URINEon 02-04-2023 CULTURE URINE Culture Observations : LIGHT GROWTH OF MIXED GENITAL CARMELO. NO POTENTIAL PATHOGENS SEEN. Normal [facility] Comment on above: Performed By: #### C BC #### [facility] [address] [place] [address] Dr. Saray Souza ER URINE PROFILEon Bilirubin Ql (U) Negative Normal NEGATIVE [facility] Comment on above: Performed By: #### C BC #### [facility] [address] [place] [address] Dr. Saray Souza Clarity (U) CLEAR Normal CLEAR [facility] Comment on above: Performed By: #### C BC #### [facility] [address] [place] [address] Dr. Saray Souza Color (U) LT. YELLOW Normal YELLOW [facility] Comment on above: Performed By: #### C BC #### [facility] [address] [place] [address] Dr. Saray Souza ERUHumera A micrscopic examination will be performed if indicated. Normal [facility] Comment on above: Performed By: #### C BC #### [facility] [address] [place] [address] Dr. Saray Souza Glucose Ql (U) Negative Normal NEGATIVE [facility] Comment on above: Performed By: #### C BC #### [facility] [address] [place] [address] Dr. Saray Souza Hemoglobin Ql (U) Negative Normal NEGATIVE [facility] Comment on above: Performed By: #### C BC #### [facility] [address] [place] [address] Dr. Saray Souza Ketones Ql (U) Negative Normal NEGATIVE [facility] Comment on above: Performed By: #### C BC #### [facility] [address] [place] [address] Dr. Saray Souza LEUKOCYTES MODERATE Abnormal NEGATIVE [facility] Comment on above: Performed By: #### C BC #### [facility] [address] [place] [address] Dr. Saray Souza Nitrite Ql (U) Negative Normal NEGATIVE [facility] Comment on above: Performed By: #### C BC #### [facility] [address] [place] [address] Dr. Saray Souza pH (U) 5.5 [pH] Normal 5-9 [facility] Comment on above: Performed By: #### C BC #### [facility] [address] [place] [address] Dr. Saray Souza SPEC GRAVITY >=1.030 Abnormal 1.005-<=1.025 [facility] Comment on above: Performed By: #### C BC #### [facility] [address] [place] [address] Dr. Saray Souza UA PROTEIN Negative Normal NEGATIVE/ TRACE [facility] Comment on above: Performed By: #### C BC #### [facility] [address] [place] [address] Dr. Saray Souza UR MICRO IND INDICATED Normal [facility] Comment on above: Performed By: #### C BC #### [facility] [address] [place] [address] Dr. Saray Souza Urobilinogen Qn (U) 0.2 {Janine'U}/dL Normal 0.2 - 1. 0 [facility] Comment on above: Performed By: #### C BC #### [facility] [address] [place] [address] Dr. Saray Souza LIPASEon 02-04-2023 Lipase [Catalytic activity/Vol] 97.0 U/L Normal 73.0-393.0 [facility] Comment on above: Performed By: #### T SH, CMP, HSTROPN, LIPA, KELLE #### [facility] [address] [place] [address] Dr. Saray Souza URon 02-04-2023 , QUAL Negative Normal NEGATIVE [facility] Comment on above: Performed By: #### C BC #### [facility] [address] [address] [address] Saray Souza PROF 14(COMP METB)on 023 Albumin [Mass/Vol] 3.5 g/dL Normal 3.4-5.0 [facility] Comment on above: Performed By: #### T SH, CMP, HSTROPN, LIPA, KELLE #### [facility] [address] [place] [address] Dr. Saray Souza Albumin/Globulin [Mass ratio] 1.2 {ratio} Normal [facility] Comment on above: Performed By: #### T SH, CMP, HSTROPN, LIPA, KELLE #### [facility] [address] [place] [address] Dr. Saray Souza ALP [Catalytic activity/Vol] 78 U/L Normal 46-116 [facility] Comment on above: Performed By: #### T SH, CMP, HSTROPN, LIPA, KELLE #### [facility] [address] [place] [address] Dr. Saray Souza ALT [Catalytic activity/Vol] 24 U/L Normal 14-59 [facility] Comment on above: Performed By: #### T SH, CMP, HSTROPN, LIPA, KELLE #### [facility] [address] [place] [address] Dr. Saray Souza Anion gap [Moles/Vol] 7.9 mmol/L Normal [facility] Comment on above: Performed By: #### T SH, CMP, HSTROPN, LIPA, KELLE #### [facility] [address] [place] [address] Dr. Saray Souza AST [Catalytic activity/Vol] 16 U/L Normal 15-37 [facility] Comment on above: Performed By: #### T SH, CMP, HSTROPN, LIPA, KELLE #### [facility] [address] [place] [address] Dr. Saray Souza Bilirubin [Mass/Vol] 0.3 mg/dL Normal 0.2-1.0 [facility] Comment on above: Performed By: #### T SH, CMP, HSTROPN, LIPA, KELLE #### [facility] [address] [place] [address] Dr. Saray Souza Calcium [Mass/Vol] 8.6 mg/dL Normal 8.5-10.1 [facility] Comment on above: Performed By: #### T SH, CMP, HSTROPN, LIPA, KELLE #### [facility] [address] [place] [address] [address] Saray Souza Chloride [Moles/Vol] 105 mmol/L Normal 98-107 [facility] Comment on above: Performed By: #### T SH, CMP, HSTROPN, LIPA, KELLE #### [facility] [address] [place] [address] Dr. Saray Souza CO2 [Moles/Vol] 28.9 mmol/L Normal 21.0-32.0 [facility] Comment on above: Performed By: #### T SH, CMP, HSTROPN, LIPA, KELLE #### [facility] [address] [place] [address] Dr. Saray Souza Creatinine [Mass/Vol] 0.67 mg/dL Normal 0.55-1.02 [facility] Comment on above: Performed By: #### T SH, CMP, HSTROPN, LIPA, KELLE #### [facility] [address] [place] [address] Dr. Saray Souza EGFR-AF YEMENI >60 Normal >=60 [facility] Comment on above: Performed By: #### T SH, CMP, HSTROPN, LIPA, KELLE #### [facility] [address] [place] [address] Dr. Saray Souza EGFR-NON AF YEMENI >60 Normal >=60 [facility] Comment on above: Performed By: #### T SH, CMP, HSTROPN, LIPA, KELLE #### [facility] [address] [place] [address] Dr. Saray Souza Globulin (S) [Mass/Vol] 3.0 g/dL Normal [facility] Comment on above: Performed By: #### T SH, CMP, HSTROPN, LIPA, KELLE #### [facility] [address] [place] [address] Dr. Saray Souza Glucose [Mass/Vol] 97 mg/dL Normal 74-106 [facility] Comment on above: Performed By: #### T SH, CMP, HSTROPN, LIPA, KELLE #### [facility] [address] [place] [address] Dr. Saray Souza Potassium [Moles/Vol] 3.8 mmol/L Normal 3.5-5.1 [facility] Comment on above: Performed By: #### T SH, CMP, HSTROPN, LIPA, KELLE #### [facility] [address] [place] [address] Dr. Saray Souza Protein [Mass/Vol] 6.5 g/dL Normal 6.4-8.2 [facility] Comment on above: Performed By: #### T SH, CMP, HSTROPN, LIPA, KELLE #### [facility] [address] [place] [address] Dr. Saray Souza Sodium [Moles/Vol] 138 mmol/L Normal 136-145 [facility] Comment on above: Performed By: #### T SH, CMP, HSTROPN, LIPA, KELLE #### [facility] [address] [place] [address] Dr. Saray Souza Urea nitrogen [Mass/Vol] 13.0 mg/dL Normal 7.0-18.0 [facility] Comment on above: Performed By: #### T SH, CMP, HSTROPN, LIPA, KELLE #### [facility] [address] [place] [address] Dr. Saray Souza Urea nitrogen/Creatinine [Mass ratio] 19.4 mg/mg Normal [facility] Comment on above: Performed By: #### T SH, CMP, HSTROPN, LIPA, KELLE #### [facility] [address] [place] [address] Dr. Saray Souza TROPONIN, HIGH SENSITIVITYon 02-04-2023 [...] T SH, CMP, HSTROPN, LIPA, KELLE #### [facility] [address] [place] [address] Dr. Saray Souza TSHon 02-04-2023 TSH 2.478 uIU/mL Normal 0.358-3.740 [facility] Comment on above: Performed By: #### T SH, CMP, HSTROPN, LIPA, KELLE #### [facility] [address] [place] [address] Dr. Saray Souza URINE MICROSCOPIC ONLYon BACTERIA MODERATE Abnormal NONE SEEN [facility] Comment on above: Performed By: #### C BC #### [facility] [address] [place] [address] Dr. Saray Souza Bacteria identified Cx Nom (U) INDICATED Normal [facility] Comment on above: Performed By: #### C BC #### [facility] [address] [place] [address] Dr. Saray Souza CAST NONE SEEN Normal NONE SEEN [facility] Comment on above: Performed By: #### C BC #### [facility] [address] [place] [address] Dr. Saray Souza Crystals LM Nom (Urine sed) NONE SEEN Normal NONE SEEN [facility] Comment on above: Performed By: #### C BC #### [facility] [address] [place] [address] Dr. Saray Souza Epithelial cells LM Ql (Urine sed) MODERATE Abnormal NONE SEEN /RARE [facility] Comment on above: Performed By: #### C BC #### [facility] [address] [place] [address] Dr. Saray Souza MUCOUS NONE SEEN Normal NONE SEEN [facility] Comment on above: Performed By: #### C BC #### [facility] [address] [place] [address] Dr. Saray Souza RBC 5-10 Abnormal 0-2 [facility] Comment on above: Performed By: #### C BC #### [facility] [address] [place] [address] Dr. Saray Souza WBC 10-20 Abnormal NONE SEEN [facility] Comment on above: Performed By: #### C BC #### [facility] [address] [place] [address] Dr. Saray Souza Covid-19 PCR ([facility])on 09-24 SARS-CoV-2 (COVID-19) RNA DAYDAY+probe Ql [...] for this test is supported by the Operations Technician of Health and Human Service's declaration that [...] #### [facility] [address] [place] [address] Dr. Saray Souza INFLUENZA A AND B [...] #### [facility] [address] [place] [address] Dr. Saray [facility] SEE BELOW Normal [facility] Comment on above: Result Comment: Nega tive for Flu B protein antigen. Infection due to Flu B cannot be ruled out. Flu B antigen in the sample may be below the detection limit of the test. Performed By: #### C BC #### [facility] [address] [place] [address] Dr. Saray Souza INFLUENZA A AG Negative Normal NEGATIVE SEE COMMENT [facility] Comment on above: Performed By: #### C BC #### [facility] [address] [place] [address] Dr. Saray Souza INFLUENZA B AG Negative Normal NEGATIVE SEE COMMENT [facility] Comment on above: Performed By: #### C BC #### [facility] [address] [place] [address] Dr. Saray Souza INTERNAL CONTROLS Within Normal Limits Normal Wi thin Normal Limits [facility] Comment on above: Performed By: #### C BC #### [facility] [address] [place] [address] Dr. Saray Souza STREPT SCREENon 10-20-2022 STREP SCREEN A Positive Abnormal NEGATIVE [facility] Comment on above: Performed By: #### C BC #### [facility] [address] [place] [address] Dr. Saray Souza XR SHOULDER RT INJon [...] by: ADRIANA MENDEZ Date: 2022-07-18 17:05 Normal [facility] MRI SHOULDER RT WO CONon MRI [...] by: ADRIANA MENDEZ Date: 2022-07-10 10:10 Normal [facility] XR ARTHRO SHLD RTon 07-10-20 XR [...] by: ADRIANA MENDEZ Date: 2022-07-10 10:01 Normal [facility] No Panel Informationon 03-18 Right Eye Reliability was good. Findings include normal observations. Left Eye Reliability was good. Findings include normal observations. Notes I personally reviewed the visual zaldivar performed by this patient on 03/18/22. The visual zaldivar are normal OU with good fixation. Francisco Ayers MD [facility] Radiology Study observation (narrative) [facility] Progress Noteson 03-18-2022 Ways Operator Authentication Interface Message Text Referred by Retina [...] edema - F/u with PCP (Shashi Hargrove [place]) regarding headaches-- will fax information to [phone] - Offered referral to neurology, patient prefers [...] PCP. Francisco Ayers MD Normal [facility]ology[facility] 12-20-2018 Cytology (NOTE) [id number] [facility]AT[facility] PATHOLOG[facility] [address] [place] [id number] GYNECOLOGIC CYTOLOGY REPORT Patient Name: ROSALIE FREEMAN V. 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 - Endocervical/transform ation zone component present. - Scant cellularity; predominantly blood. Descriptive Diagnosis: Negative for intraepithelial lesion or malignancy. Seaman: KANCHAN Mendoza(ASCP) Electronically Signed Out donna/01/03/2019 Normal [facility] Comment on above: Performed By: #### P PPVP #### [email or web address] [address] [place] [id number] Workforce Analyst: Vega Wilkerson MD Vital Signs Date Time Vital Sign Value Performing Clinician Facility 08-29-2024 10:53-0400 Body mass index (BMI) [Ratio] 45.89 kg/m2 Kelle Melany PA Work Phone: [facility] 08-29-2024 10:53-0400 Body weight 145.06 kg Kelle Melany BAE Work Phone: [facility] 08-29-2024 10:53-0400 Diastolic blood pressure 70 mm[Hg] Kelle Enriquezraul BAE Work Phone: [facility] 08-29-2024 10:53-0400 Systolic blood pressure 120 mm[Hg] Kelle Love KATHIA Work Phone: [facility] 2024 09:04-0400 Blood Pressure Location JANNETH HOPSON [facility] 2024 09:04-0400 Diastolic blood pressure 82 mm[Hg] JANNETH LUIS [facility] 2024 09:04-0400 Heart rate 74 /min JANNETH LUIS [facility] 2024 09:04-0400 Respiratory rate 16 /min JANNETH LUIS [facility] 2024 09:04-0400 Systolic blood pressure 125 mm[Hg] JANNETH LUIS [facility] 03-08-2024 14:09-0400 Blood Pressure Location Yonis FORDL [facility] 03-08-2024 14:09-0400 Diastolic blood pressure 84 mm[Hg] Yonis FORDL [facility] 03-08-2024 14:09-0400 Heart rate 76 /min Yonis NILL [facility] 03-08-2024 14:09-0400 Respiratory rate 16 /min Yonis FORDL [facility] 03-08-2024 14:09-0400 Systolic blood pressure 118 mm[Hg] Yonis CARNEY [facility] [place] 01-19-2024 09:34-0500 Blood Pressure Location JANNETH HOPSON [facility] 01-19-2024 09:34-0500 Diastolic blood pressure 84 mm[Hg] JANNETH HOPSON [facility] 01-19-2024 09:34-0500 Heart rate 80 /min JANNETH HOPSON [facility] 01-19-2024 09:34-0500 Respiratory rate 16 /min JANNETH HOPSON [facility] 01-19-2024 09:34-0500 Systolic blood pressure 132 mm[Hg] JANNETH HOPSON [facility] 12-02-2023 08:40-0500 Body height 180.34 cm Taniya Mary Grace Other [facility] Other 12-02-2023 08:40-0500 Body mass index (BMI) [Ratio] 45.1 kg/m2 Taniya Mary Grace Other [facility] 12-02-2023 08:40-0500 Body temperature 97.5 [degF] Taniya Mary Grace Other [facility] 12-02-2023 08:40-0500 Body weight 146.69 kg Taniya Mary Grace Other [facility] 12-02-2023 08:40-0500 Diastolic blood pressure 83 mm[Hg] Taniya Mary Grace Other [facility] 12-02-2023 08:40-0500 Respiratory rate 18 /min Taniya Mary Grace Other [facility] 12-02-2023 08:40-0500 SaO2% (BldA) [Mass fraction] 98 % Taniya Mary Grace Other [facility] 12-02-2023 08:40-0500 Systolic blood pressure 136 mm[Hg] Taniya Mary Grace Other [facility] Other 11-19-2021 15:30-0500 Body height 180.34 cm Nandini Muñozlaya Other [facility] Other 11-19-2021 15:30-0500 Body mass index (BMI) [Ratio] 41.56 kg/m2 Nandini Pantoja Other [facility] Other 11-19-2021 15:30-0500 Body weight 135.17 kg Nandini Pantoja Other [facility] Other 11-19-2021 15:30-0500 Diastolic blood pressure 76 mm[Hg] Nandini Tonilaya Other [facility] Other 11-19-2021 15:30-0500 Systolic blood pressure 128 mm[Hg] Nandini Tonilaya Other [facility] Other Encounters Encounter Date Encounter Type Care Provider Facility Start: 10-27-2024 ambulatory JANNETH Bowden ty:[facility] Start: 09-28-2024 End: 09-28-2024 Clinisync Result Encounter Graham Howell DO Work Phone: [facility] Unsolicited Start: 09-28-2024 End: 09-28-2024 Clinisync Result Encounter Graham Dante DO Work Phone: [facility] Unsolicited Start: 08-29-2024 End: 08-29-2024 Bamboo flowsheet Kelle Love PA Work Phone: [facility] Start: 08-29-2024 End: 08-29-2024 Bamboo flowsheet Kelle Love PA Work Phone: [facility] Start: 08-29-2024 End: 08-29-2024 Office outpatient visit 15 minutes Kelle Love PA Work Phone: [facility] Comment on above: Encounter for weight management Start: 08-29-2024 End: 08-29-2024 ambulatory KELLE LOVE Not Available Start: 07-26-2024 End: 07-26-2024 ambulatory KELLE LOVE Not Available Start: 06-27-2024 End: 06-27-2024 ambulatory GRAHAM DANTE Not Available Start: 05-30-2024 End: 05-30-2024 ambulatory GRAHAM DANTE Not Available Start: 2024 End: 2024 ambulatory Yonis CARNEY Facility:[facility] Start: 2024 End: 2024 Patient encounter procedure JANNETH MADRIGALRY [facility] Start: 04-27-2024 End: 04-27-2024 ambulatory MD Shashi Hargrove Work Phone: [facility] Work Phone: Start: 04-27-2024 End: 04-27-2024 Departed Referred MD Shashi Hargrove Work Phone: [facility] Start: 04-27-2024 End: 04-27-2024 ambulatory Yonis CARNEY Facility:CD:[id number] Start: 03-08-2024 End: 03-08-2024 ambulatory Yonis R NILL Facility:[facility] Start: 03-08-2024 End: 03-08-2024 Patient encounter procedure Yonis R NILL [facility] [place] Start: 02-09-2024 End: 02-09-2024 ambulatory Dieter SALMON Facility[facility] Start: 02-09-2024 End: 02-09-2024 Patient encounter procedure Dieter SALMON [facility] Start: 01-19-2024 End: 01-19-2024 ambulatory JANNETH HOPSON Facility[facility] Start: 01-19-2024 End: 01-19-2024 Lab Drop off JANNETH MADRIGALRY [facility] Start: 01-19-2024 End: 01-19-2024 ambulatory Shashi Hargrove Facility:[facility] Start: 01-19-2024 End: 01-19-2024 Patient encounter procedure JANNETH HOPSON [facility] Start: 12-31-2023 ambulatory Yonis NILL Facility:[facility] Start: 12-17-2023 End: 12-17-2023 ambulatory Taniya Mary Grace Other [facility] Start: 12-17-2023 Office outpatient visit 15 minutes Taniya Mary Grace [facility] Start: 12-07-2023 End: 12-07-2023 ambulatory Taniya Mary Grace Other [facility] Start: 12-07-2023 Telephone encounter Taniya Mary Grace [facility] Start: 12-02-2023 End: 12-02-2023 ambulatory Taniya Mary Grace Other [facility] Start: 12-02-2023 Office outpatient ne w 30 minutes Taniya Brody [facility] Start: 04-17-2023 End: 04-17-2023 ambulatory SALMA DIAB . Facility:[facility] Start: 04-06-2023 End: 04-07-[address] SHASHI HARGROVE . Facility:[facility] Start: 04-04-2023 Encounter for genera l adult medical examination without abnormal findings DR SHASHI HARGROVE . [facility] Start: 04-03-2023 End: 04-04-[address] SHASHI [...] Start: 03-18-2022 End: 03-18-2022 ambulatory UNKNOWN PROVIDER [facility] Start: 11-19-2021 End: 11-19-2021 ambulatory Nandini Pantoja [facility] Start: 11-19-2021 Office outpatient ne w 30 minutes Nandini Pantoja [facility] Start: 12-20-2018 End: 12-21-2018 Patient encounter procedure ANDRESSA ESCALANTE [facility] Procedures Date Procedure Procedure Detail Performing Clinician Start: 09-28-2024 ALL CBC WITH AUTO DIFF Graham Howell DO Work Phone: Start: 04-29-2024 Colonoscopy JANNETH Jeffry MCKEON Start: 02-09-2024 Cystoscopy JANNETH MCKEON Start: 07-09-2023 Microscopic observat ion [Identifier] [...] Screening for malign ant neoplasm of cervix [facility] Start: 11-28-2024 End: 11-28-2024 Patient encounter procedure 11/28/2024 9:30 AM EST Office Visit [facility] [address] [place] [address] Kelle Love PA [address] [place] [address] [place] [address] [facility] Start: 11-03-2024 End: 11-03-2024 ambulatory 11/03/2024 1:00 PM EST [facility] [address] [place] [address] [facility] Start: 11-03-2024 End: 11-03-2024 Professional / ancillary services management 11/03/2024 12:30 PM EST Ancillary Procedure [facility] [address] [place] [id number] [facility] Start: 08-29-2024 End: 08-29-2024 Patient encounter procedure 08/29/2024 10:50 AM EDT Office Visit [facility] [address] [place] [id number] Kelle Love, PA [address] [place] [address] Arrived [facility] Comment on above: Arrived Start: 07-24-2024 Influenza vaccination Influenza Vacc ine (#1) [facility] Start: 2014 Screening for malign ant neoplasm of cervix Pap Smear [facility] Start: 2011 Hepatitis C screening Hepatitis C An tibody [facility] Start: 2011 Tetanus + diphtheria + acellular pertussis vaccine (product) Tdap Booster [facility] Start: 2008 HIV screening HIV Test [facility] Start: 1998 COVID-19 Vaccine (1) COVID-19 Vaccin e (1) [facility] Immunizations Immunization Date Immunization Notes Care Provider Fa cility 10-28-2022 influenza virus vaccine, unspecified formulation JANNETH HOPSON [facility] 04-15-2021 SARS-CoV-2 (COVID-19 ) mRNA-1273 vaccine JANNETH HOPSON [facility] [place] 03-18-2021 SARS-CoV-2 (COVID-19 ) mRNA-1273 vaccine JANNETH HOPSON [facility] [place] 03-21-2014 influenza virus vaccine, unspecified formulation Estella Guerrero MD Work Phone: [facility] Payers Date Payer Category Payer Medicaid [employer] [id number] 2017-Present [address] [place] [id number] 2017 Medicaid (Managed Care) [employer] [id number] 2017 Unknown [facility] [employer] [id number] 2017-Present [id number] 1993 Unknown [id number] 2.16.840.1.727580.3.579.2. 173 1993 Unknown [id number] 2.16.840.1.379438.3.579.2. 732 1993 Unknown [id number] 2.16.840.1.349375.3.579.2. 593 1993 Unknown [id number] 2.16.840.1.900702.3.579.2. 593 1993 Unknown [id number] 2.16.840.1.061903.3.579.2. 593 1993 Unknown [id number] 2.16.840.1.151066.3.579.2. 593 1993 Unknown [id number] 2.16.840.1.001007.3.579.2. 593 1993 Unknown [id number] 2.16.840.1.624128.3.579.2. 593 1993 Unknown [id number] 2.16840.1.949087.3.579.2. 593 1993 Unknown [id number] 2.840.1.101006.3.579.2. 593 1993 Unknown [id number] 2.16840.1.170519.3.579.2. 593 1993 Unknown [id number] 2.16.840.1.476892.3.579.2. 593 1993 Unknown [id number] 2.16.840.1.557737.3.579.2. 593 1993 Unknown [id number] 2.16840.1.414081.3.579.2. 593 1993 Unknown [id number] 2.16840.1.898082.3.579.2. 727 1993 Unknown [id number] 2.16.840.1.150543.3.579.2. 727 1993 Unknown [id number] 2.16.840.1.136799.3.579.2. 727 1993 Unknown [id number] 2.16.840.1.414340.3.579.2. 727 1993 Unknown [id number] 2.16.840.1.253159.3.579.2. 727 1993 Unknown [id number] 2.16.840.1.168312.3.579.2. 727 1993 Unknown [id number] 2.16.840.1.589311.3.579.2. 727 1993 Unknown [id number] 2.16.840.1.785937.3.579.2. 727 1993 Unknown [id number] 2.16.840.1.895425.3.579.2. 9 1993 Unknown [id number] 2.16.840.1.874771.3.579.2. 1259 1993 Unknown [id number] 2.16.840.1.094469.3.579.2. 9 1993 Unknown [id number] 2.16.840.1.734069.3.579.2. 1259 1959 Unknown [id number] Social History Date Type Detail Facility Tobacco smoking status [facility] Tobacco smoking consumption unknown [employer] Other Start: 1993 [facility] Start: 05-[facility]24 Sex Assigned At F [facility] Start: 05-03-2023 End: 01-19-2024 Tobacco smoking status Never smoked tobacco (finding) [facility] Tobacco smoking status Never [facility] Start: 1995 Sex Assigned At Female F [facility] Start: 07-26-2024 End: 08-29-2024 Alcoholic beverage intake Current drinker of alcohol (finding) [facility] Start: 05-23-2024 History of Social function [facility] Start: 05-03-2023 Alcohol Comment 1-2 drinks les s than monthly in the past year, Caffeine intake: 2-3 cups per day [facility] Functional Status Date Assessment Result Facility 2024 Functional Status N/A [facility] 03-08-2024 Functional Status N/A [facility] 01-19-2024 Functional Status N/A [facility] Clinical Notes 03-18-2022 to 08-29-2024 KATHIA [...] 05/27/2023 Irritable bowel syndrome 05/27/2023 Mood disorder (CMS/HCC) 05/27/2023 Right upper quadrant abdominal pain 05/27/2023 Scoliosis 05/27/2023 Vaginal delivery 09/06/2014 Encounter for weight management 06/27/2024 Resolved Ambulatory Problems Diagnosis Date Noted No Resolved Ambulatory Problems Past Medical History: Diagnosis Date Acne Cardiac murmur Depression (CMS/HCC) Encounter for IUD insertion 01/02/2021 Gastritis IBS (irritable bowel syndrome) Plantar fasciitis, bilateral HISTORY PAST MEDICAL HISTORY SOCIAL HISTORY Past Medical History: Diagnosis Date Acne Cardiac murmur Depression (CMS/HCC) Encounter for IUD insertion 01/02/2021 Gastritis IBS [...] nursing note reviewed. Exam conducted with a banking assistant present. Vitals: Estimated body mass index is [...] of: KATHIA Ledezma documented in this encounter [facility] 2024 Hospital Discharge instructions Patient Education 2024 [...] medicine. Follow these instructions at home: Take alrf-jlz-ibfipgp and prescription medicines as told by your [...] provider. Document Revised: 12/24/2020 Document Reviewed: 08/28/2020 [employer] Patient Education 2022 [employer] Follow Up Care 01/19/2024 10:50:20 With:JANNETH HOPSON PA-C, URL Address: [address] [place] [address] [phone] When: Unknown [facility] 03-10-2024 Note Chief Complaint consultation for [...] - Denies A (more content not included)... [facility] Comment on above: Result Comment: Elec [...] Address: [facility] [address] [place] [address]- Business (1) When:06/10/2024 08:33:15 Comments:With Deepthi Luis [facility] 02-09-2024 Note [id number] [facility] 02-09-2024 Note Custom Cystoscopy ? Voiding [...] you have a fever over 100 degrees. [facility] 01-19-2024 Hospital Discharge instructions Patient Education [...] including vitamins, herbs, eye drops, creams, and xsim-flx-fggvdcx medicines. Any problems you or family members [...] health care provider tells you to. ?Taking uvjp-sjm-yoirmxe medicines, vitamins, herbs, and supplements. General instructions [...] provider. Document Revised: 02/19/2023 Document Reviewed: 02/19/2023 [employer] Patient Education 2022 [employer]. 01/19/2024 10:32:14 Urinary Tract Infection, Adult Urinary [...] Treatment for this condition includes: Antibiotic medicine. Vtyh-qth-rdgacft medicines to treat discomfort. Drinking enough water [...] Follow these instructions at home: Medicines Take jvmo-hax-leoncto and prescription medicines only as told by [...] provider. Document Revised: 06/21/2021 Document Reviewed: 06/21/2021 [employer] Patient Education 2022 [employer]. Follow Up Care 01/08/2024 10:24:51 With:JANNETH HOPSON PA-C, URL Address: [address] [facility] [place] [address] When: Unknown [facility] 01-19-2024 Note Chief Complaint Referral *Frequent [...] E Coli Tx'd w/ Cefdinir 300mg BID s15rnxo ÁLVARO 01/01/24 *No acute abnormality CTa wo/w [...] yes avoids baths/hot tubs yes avoids scented [employer] products yes urinates after sexual activity yes [...] and benefits for (more content not included)... [facility] Comment on above: Result Comment: Elec tronically Signed By: JANNETH HOPSON PA-C\.br\Date and Time Signed: 01/19/24 10:56 EST\.br\Electronically Co-Signed By: Jania Lyn\.br\Date and Time Co-Signed: 01/19/24 10:36 EST 12-17-2023 [...] her to avoid NSAIDs or any other eknh-frb-ujsgdxs medication or high-protein supplements Nov, Renal lesion [...] and no personal patient information was compromised. [facility] 01-10-2024 Evaluation note* Encounter Date Diagnosis [...] her to avoid NSAIDs or any other ilqd-dnp-cyfiqmb medication or high-protein supplements Nov, Renal lesion (ICD-10 - N28.9) She had a renal lesion of indeterminate nature on the renal ultrasound. She is ordered to have a CAT scan with contrast by the PCP. Will follow the report once done. Nov, IBS (irritable bowel syndrome) (ICD-10 - K58.9) Continue to follow with PCP for IBS management. [facility] 06-21-2022 NotePROCEDURE: XR SHOULDER RT 2V or > COMPARISON: None. HISTORY: Pain of right shoulder joint FINDINGS: BONES:No fracture, acute abnormality, or significant arthropathy. SOFT TISSUES:Negative. No visible soft tissue swelling. EFFUSION:None visible. OTHER: Negative. IMPRESSION: Normal examination. Electronically authenticated by: NANDINI MAYER Date: 2022-05-13 08:41[facility]04-26-2022 History of Present illness Narrative* Francisco [...] disc edema - [facility]-- will fax information to [phone] - Offered referral to neurology, patient prefers [...] papilledema. Francisco Ayers MD documented in this [id number] History of Present illness Narrative* Francisco Ayers [...] Hair) regarding headaches-- will fax information to [phone] - Offered referral to neurology, patient prefers [...] Appointments Appointment Date:02/02/2024 11:30:00 AM Scheduled Provider: Location:[facility] Appointment Type:Urology CALL PAT FT Appointment Date:02/09/2024 08:15:00 AM Scheduled Provider: Location:[facility] Appointment Type:Urology FT Appointment Date:2024 08:20:00 AM Scheduled Provider:JANNETH HOPSON PA-C Location:[facility] Appointment Type:URO Office Visit [facility] evaluation + Plan note Future Appointments Appointment Date:02/02/2024 11:30:00 AM Scheduled Provider: Location:[facility] Appointment Type:Urology CALL PAT FT Appointment Date:02/09/2024 08:15:00 AM Scheduled Provider: Location:[facility] Appointment Type:Urology FT Appointment Date:2024 08:20:00 AM Scheduled Provider:JANNETH HOPSON PA-C Location:[facility] Appointment Type:URO Office Visit Diagnostic Tests Pending * [facility] Future Appointments Appointment Date:2024 08:20:00 AM Scheduled Provider:JANNETH HOPSON PA-C Location:[facility] Diagnosis Chronic nonintractable headache, unspecified headache type- [facility] Chronic nonintractable headache, unspecified headache type- Primary [facility] noteN[facility] Other Evaluation noteNo InformationNort [employer] Other Evaluation noteNo assessment information available [facility] Work Phone: [email or web address] note* Diagnosis Encounter for weight management [facility] N[facility] - ReportedNort [employer] Other History general Narrative - Reported* Type Description Date Medical History irritable bowel syndrome Medical History depression Medical History PROTEINURIA, UNSPECIFIED Medical History HYPOGLYCEMIA Medical History ARTHRALGIA Medical History SHINGLES Medical History ADHD Surgical History ovary removed 2014 Surgical History cholecystectomy Surgical History bilateral fasciitis repair Surgical History bilateral bone spur removal Hospitalization History 1 child [facility] Birthday [facility] Other Hospital course Narrative No data available for this section [facility] Hospital Discharge instructions No data available for this section [facility] No data available for this section [facility] Summary Purpose Family History Relationship Condition [...] section and content) DATE CREATED AUTHOR [facility] DATE CREATED AUTHOR AUTHOR'S ORGANIZ ATION 03/20/2022 [facility] DATE CREATED AUTHOR AUTHOR'S ORGANIZ ATION 04/18/2023 [facility] DATE CREATED AUTHOR AUTHOR'S ORGANIZ ATION 04/30/2024 [facility] DATE CREATED AUTHOR AUTHOR'S ORGANIZ ATION 07/26/2024 [facility] DATE CREATED AUTHOR AUTHOR'S ORGANIZ ATION 07/26/2024 [facility] EP[facility] DATE CREATED AUTHOR AUTHOR'S ORGANIZ ATION 08/30/2024 [facility] EP[facility] Reason for Visit (unrecogniz [...] End: April 27, 2024 Yonis Carney MD FACS Attending Provider Active Start: April 27, 2024 End: April 27, 2024 [employer] Relationship Specialty Start Date End Date Shashi Hargrove MD [address] [place] [address] PCP - General Family Medicine 05/11/23 [employer] Relationship Specialty Start Date End Date Shashi Hargrove MD [address] [place] [address] PCP - General Family Medicine 05/11/23 Goals [...] BE BASED ON THE PRIMARY CLINICAL RECORDS. [facility]. provides no warranty or guarantee of the accuracy or completeness of information in this document.
[2024-10-14 15:48] LABS: Basophils Percent Auto 0.3 % (0.2-2.0); Eosinophils Absolute Auto 0.1 10^3/uL (0.0-0.7); Eosinophils Percent Auto 1.6 % (0.9-7.0); Hematocrit 38.9 % (36.0-48.0); Immature Granulocytes Abs Auto 0.03 10^3/uL (0.00-0.03); Immature Granulocytes Pct Auto 0.3 % (0.0-0.5); Lymphocytes Absolute Auto 1.8 10^3/uL (1.2-3.8); Lymphocytes Percent Auto 21.3 % (20.5-60.0); Mean Corpuscular HGB Conc 33.4 g/dL (29.9-35.2); Mean Corpuscular Hemoglobin 30.5 pg (26.7-34.0); Mean Corpuscular Volume 91.3 fL (81.0-99.0); Mean Platelet Volume 8.8 fL (9.5-13.5); Monocytes Absolute Auto 0.6 10^3/uL (0.3-0.8); Monocytes Percent Auto 6.4 % (1.7-12.0); Neutrophils Absolute Auto 6.1 10^3/uL (1.4-6.5); Neutrophils Percent Auto 70.1 % (43.0-75.0); Platelet Count 282 10^3/uL (150-450); Red Blood Count 4.26 10^6/uL (4.20-5.40); Red Cell Distribution Width 12.5 % (11.0-15.0); White Blood Count 8.6 10^3/uL (4.0-11.0)
--- NOTE | 2024-10-14 16:00 | US_ITS ---
[address] [address] Patient Name: ROSALIE FREEMAN MRN: [facility]:[id number] date: 1995 Sex: F Assigned Patient Location: LAB Current Patient Location: LAB Accession/Order Number: [id number] Exam Date: 10/14/2024 16:55 Report Date: 10/14/2024 18:46 At the request of: NON-STAFF PHYSICIAN Procedure: US OB transvaginal EXAM: Pelvic ultrasound ultrasound CLINICAL INDICATION: Right lower quadrant pain R10.31, Rule out ectopic . COMPARISON: Ultrasound dated 06/27/2024 TECHNIQUE: Transvaginal pelvic ultrasound was performed with grayscale and color Doppler images were obtained. FINDINGS: Uterus: No abnormal uterine masses. Intrauterine . Gestational sac and yolk sac and fetus are present. cardiac activity is present at 128-133 bpm. [place]-rump length measures 9.3 mm for an estimated gestational age of 7 weeks 0 days. Right ovary: Measures 4.3 x 2.8 x 2.7 cm. Normal color flow and Doppler arterial and venous waveforms. No ovarian masses. 1.6 cm right ovarian cyst with a thick wall, likely a corpus luteum cyst. Left oophorectomy. Small amount of free fluid in the pelvis. US/US OB transvaginal IMPRESSION: 1. Single intrauterine , cardiac activity is present. 2. No acute sonographic abnormalities in the pelvis. 3. Right ovarian cyst, likely a corpus luteum cyst. Electronically authenticated by: KYUNG GELLER Date: 10/14/2024 18:46
[2024-10-14 16:26] LABS: HCG Quantitative 39868 mIU/mL
== END 2024-10-14 15:31 | disposition home or self-care (01) ==
LOC: LAB 15:32
PROVIDERS: PCP Obstetrics & Gynecology
DX: O26.891 Other specified pregnancy related conditions, first trimester (principal); Z3A.01 Less than 8 weeks gestation of pregnancy; R10.31 Right lower quadrant pain; R30.0 Dysuria; N83.291 Other ovarian cyst, right side
CPT/HCPCS: 36415; 76817; 84702; 85025

== ENCOUNTER 2024-12-02 11:37 | Emergency (ER) | payer OTHER, SELFPAY ==
[2024-12-02 11:41] VITALS: BP 148/108; PULSE 84; TEMP 36.9; O2SAT 98; BMI 45.3
--- OUTSIDE RECORDS SUMMARY | 2024-12-02 11:51 | XMS_ITS | CCD ---
Author Organization [facility] CliniSyga Care Team Providers Care Poultry Hanger Name Role Phone ANDRESSA ESCALANTE Referring Unavailable [...] Unavailable HOY ., DR SEWELL Admkaty Unavailable [place], DR NANDINI Stafford Consulting Unavailable HOY ., [...] Taniya Unavailable Melodie Hargrove Primary Care Physician [phone] MD Melodie Hargrove Primary Care Provider [phone] MD Yonis Carney Attending Provider [phone] Melodie Hargrove Primary Care Unavailable Ruth, Yonis Mckenzie Attending Unavailable Ruth, Yonis Mckenzie Admitting Unavailable GRAHAM HOWELL Attending Unavailable GRAHAM HOWELL Attending Unavailable KELLE LOEV Attending Unavailable Melodie Hargrove MD Primary Care Provider [phone] KELLE LOVE Attending Unavailable NILChing, Yonis Mckenzie Attending Unavailable EMILIANA, JANNETH Barreto Attending Unavailable EMILIANA, JANNETH Barreto Attending Unavailable Melodie Hargrove Referring Unavailable EMILIANA, JANNETH E Attending Unavailable EMILIANA, JANNETH E Attending Unavailable SALMON, Dieter R Admitting Unavailable SALMON, Dieter R Attending Unavailable SALMON, Dieter R Referring Unavailable EMILIANA, JANNETH E Admitting Unavailable EMILIANA, JANNETH Barreto Attending Unavailable NILL, Yonis Mckenzie Attending Unavailable SawyMelodie Referring Unavailable NILL, Yonis Mckenzie Attending Unavailable Allergies Allergy Classification Reported Allergen(s) Allergy Type Date of Onset Reaction(s) Facility (1 source) [facility]; Translations: [[facility]] Propensity to adverse reactions (disorder) 0 [facility] Repository (3 sources) Kerlix Super Sponge/Saline Med Drug allergy [facility] Other (1 source) Wound Dressings Drug Allergy 4 [facility] (1 source) No Known Medication Allergies; Translations: [No Known Medication Allergies] Propensity to adverse reactions (disorder) [facility] Repository Medications Current Medications Medication [...] twelve hours famotidine 20 mg oral tablet (4 sources) Histamine-2 Receptor Antagonist Start: 2024 famotidine 20 mg Tab Refills(s) 0 Start Date: 05/10/24 Status: Ordered fexofenadine hydrochloride 30 mg disintegrating oral tablet (7 sources) Histamine-1 Receptor Antagonist take 1 tablet [...] hydrochloride 500 mg extended release oral tablet (7 sources) Biguanide Start: 05-30-2024 take 1 tablet by mouth every twenty-four hours at mealtime metFORMIN XR (Glucophage-XR) 500 MG 24 hr tablet Indications: Pelvic pain in female , PCOS (polycystic ovarian syndrome) Take 1 tablet (500 mg) by mouth in the evening. Take with meals Do not crush, chew, or split. 30 tablet 11 05/30/2024 Active methylphenidate hydrochloride 20 mg oral tablet (2 sources) Central Nervous System Stimulant Start: 06-14-2024 End: 07-26-2024 methylphenidate (Ritalin) 20 MG tablet 1 (one) time each day at the same time 06/14/2024 07/26/2024 Discontinued ondansetron 4 mg disintegrating oral tablet (7 sources) Serotonin-3 Receptor Antagonist Start: 2024 ondansetron 4 mg Dis Tab Refills(s) 0 Start Date: 05/10/24 Status: Ordered Start: 09-19-2021 take 1 tablet by joesph th every six hours ondansetron 4 mg Tab 4 mg = 1 tab(s), Oral, q6hr, Refills(s) 0 Start Date: 09/19/21 Status: Ordered phentermine hydrochloride 37.5 mg oral tablet (13 sources) Sympathomimetic Amine Anorectic Start: 06-27-2024 End: 11-27-2024 take 1 tablet by mouth before mealtime phentermine (Adipex-P) 37.5 MG tablet Indications: Encounter for weight management Take 1 tablet (37.5 mg) by mouth in the morning. Take before meals. 30 tablet 07/26/2024 08/25/2024 Active sertraline 100 mg oral tablet (19 sources) Serotonin Reuptake Inhibitor Start: 09-19-2021 take 1 tablet by mouth once daily Zoloft 100 mg Tab 100 mg = 1 tab(s), Oral, Daily, Refills(s) 0 Start Date: 09/19/21 Status: Ordered sulfamethoxazole 400 mg / trimethoprim 80 mg oral tablet (15 sources) Dihydrofolate Reductase Inhibitor Antibacterial, Sulfonamide Antimicrobial Start: 07-26-2024 Bactrim 400 mg-80 mg Tab 1 tab(s), Oral, Daily UTI prevention, 30 tab(s), Refill(s) 3, [facility]/pharmacy #[id number], 180, cm, 05/10/24 9:08:00 EDT, Height/Length Dosing, 150, kg, 05/10/24 9:08:00 EDT, Weight Dosing Start Date: 07/26/24 Status: Ordered Start: 01-19-2024 Bactrim 400 mg -80 mg Tab 1 tab(s), Oral, Daily UTI prevention, 30 tab(s), Refill(s) 3, [facility]/pharmacy #[id number], 180, cm, 01/19/24 9:37:00 EST, Height/Length Dosing, 145.5, kg, 01/19/24 9:37:00 EST, Weight Dosing Start Date: 01/19/24 Status: Ordered Start: 04-01-2023 take 1 tablet by joesph th once in the morning, then take 1 tablet by mouth once at bedtime sulfamethoxazole-trimethoprim (Bactrim DS) 800-160 MG per tablet Take 1 tablet [...] completed., # 2 cap(s), Refills(s) 0, Pharmacy: [facility]/pharmacy #[id number], 180, cm, 01/19/24 9:37:00 EST, Height/Length Dosing, 145.5, kg, 01/19/24 9:37:00 EST, Weight Dosing Start Date: 01/19/24 Status: Ordered levonorgestrel 0.286958 mg/hr intrauterine system (8 sources) Progestin, Progestin-containin g Intrauterine Device Start: 09-19-2021 Mirena 52 mg intrauteral device 52 mg = 1 EA, IntraUteral, Once Start Date: 09/19/21 Status: Ordered meloxicam 15 mg oral tablet (11 sources) Nonsteroidal Anti-inflammatory Drug Start: 01-15-2024 meloxicam 15 mg Tab 15 mg = 1 tab(s), Oral, Daily, 0 Refill(s), Refills(s) 0 Start Date: 01/15/24 Status: Ordered take 1 tablet by joesph th every twenty-four hours Meloxicam 15 MG 1 tablet Orally Once a day Active Problems Active Problems Problem Classification Problem Date Documented Da te Episodic/Chronic Abdominal pain (20 sources) Epigastric pain; Translations: [Right upper quadrant pain] Onset: 3 09-20-2021 Episodic Anxiety disorders (15 sources) Anxiety; Translations: [Anxiety disorder, unspecified] Onset: 3 09-20-2021 Chronic Biliary tract disease (15 sources) Chronic cholecystitis with calculus; Translations: [Calculus of gallbladder with chronic cholecystitis without obstruction] Onset: 3 09-30-2021 Episodic Conditions associated with dizziness or [...] [Chronic nonintractable headache, unspecified headache type] Episodic Menstrual disorders (1 source) Missed period; Translations: [Irregular menstruation, unspecified] 11-03-2024 Chronic Mood disorders (15 sources) Mood disorder; Translations: [Unspecified mood [affective] disorder] Onset: 3 09-19-2021 Chronic Nausea and vomiting (1 source) Nausea; Translations: [NAUSEA] Onset: 3 Episodic Other acquired deformities (15 sources) Scoliosis deformity of spine; Translations: [Scoliosis, unspecified] Onset: 3 09-20-2021 Chronic Other aftercare (1 source) Other termination clerk (current) drug therapy; Translations: [OTH VALIDATION TECHNICIAN CURRENT DRUG THERAPY] Onset: 3 Episodic Other diseases of kidney and ureters (2 sources) Disorder of kidney and ureter, unspecified Episodic Other diseases of kidney and ureters (2 sources) Disorder of kidney and/or ureter; Translations: [Disorder of kidney and ureter, unspecified] Onset: 4 Episodic Other diseases of kidney and ureters (8 sources) Kidney lesion 01-19-2024 Episodic Other endocrine disorders (4 sources) Other hypoglycemia; Translations: [OTHER HYPOGLYCEMIA] Onset: 3 Chronic Other gastrointestinal disorders (20 sources) Irritable bowel syndrome; Translations: [Irritable bowel syndrome without diarrhea] Onset: 3 Chronic Other gastrointestinal disorders (3 sources) Irritable bowel syndrome without diarrhea Onset: 1 Resolved: 1 Chronic Other gastrointestinal disorders (4 sources) Altered bowel function 03-10-2024 Episodic Other gastrointestinal disorders (4 sources) Diarrhea 03-10-2024 Episodic Other nutritional; endocrine; and metabolic disorders (8 sources) Body mass index 40+ - severely obese 09-20-2021 Chronic Other nutritional; endocrine; and metabolic disorders (5 sources) Morbid obesity 03-04-2024 Chronic Other and delivery including normal (9 sources) Vaginal delivery; Translations: [Encounter for full-term uncomplicated delivery] Onset: 4 05-27-2023 Episodic Other screening for suspected conditions (not mental disorders or infectious disease) (15 sources) Ultrasonography of biliary tract abnormal; Translations: [Abnormal findings on diagnostic imaging of liver and biliary tract] Onset: 3 09-20-2021 Episodic Other skin disorders (15 sources) Acne vulgaris; Translations: [Acne vulgaris] Onset: 3 09-20-2021 Episodic Residual codes; unclassified (15 sources) Insomnia; Translations: [Insomnia, unspecified] Onset: 3 09-20-2021 Episodic Unclassified (3 sources) CONTACT W/AND (SUSP) EXPOS COVID-19; Translations: [CONTACT W/AND (SUSP) EXPOS COVID-19] Onset: 2 Unclassified (1 source) COUGH, UNSPECIFIED; Translations: [COUGH, UNSPECIFIED] Onset: 2 Urinary tract infections (15 sources) Urinary tract infection, site not specified; Translations: [Urinary tract infectious disease] Onset: 3 Episodic Past or Other Problems Problem Classification Problem Date Documented Da te Episodic/Chronic Administrative/social admission (10 sources) Patient encounter status; Translations: [Persons encountering health services in other specified circumstances] Onset: 06-27-2024 06-27-2024 Episodic Other and unspecified benign neoplasm (7 sources) Mature cystic teratoma of left ovary; Translations: [Benign neoplasm of left ovary] Onset: 04-10-2015 05-27-2023 Episodic Other connective tissue disease (4 sources) Impingement syndrome of right shoulder; Translations: [IMPINGEMENT SYNDROME RIGHT SHOULDER] Onset: 07-10-2022 Episodic Other gastrointestinal disorders (7 sources) Pharyngeal dysphagia; Translations: [Dysphagia, pharyngeal phase] [...] Test Name Value Interpretation Reference Range Facility HCG ( test) Ql (U)o n 11-03-2024 Interpretation and review of laboratory results Abnormal [facility] re Preg Test, Ur Positive Negative [facility] Urinalysis macro (dipstick) panel (U)on 11-03-2024 Bilirubin, UA Negative Negative - 4(70) +++ mg/dL [facility] Blood, UA Negative Negative - 50 Issac/mcL [facility] Clarity, UA Clear [facility] re Color, UA Yellow [facility] e Glucose, UA Negative Negative - 1999(110) ++++ mg/dL [facility] Interpretation and review of laboratory results Normal [facility] re Ketones, UA Negative Negative - 160(16) ++++ mg/dL [facility] Leukocytes, UA Negative Negative - 500+++ Christo/mcL [facility] Nitrite, UA Negative Negative - Positive [facility] pH, UA 5 5 - 9 [facility] e Protein, UA Negative Negative - 1999(20) ++++ mg/dL [facility] Spec Grav, UA 1.03 1 - 1.03 [facility] Urobilinogen, UA 1.0 0.2 - 12 mg/dL [facility] Healthcare [facility] Healthcar e ALL CBC WITH AUTO DIFFon BASOPHILS ABSOLUTE AUTO 0 [facility] Basophils/100 WBC (Bld) 0.5 % 0.2 - 2.0 % [facility] Eosinophils/100 WBC (Bld) 1.9 % 0.9 - 7.0 % [facility] Erythrocyte distribution width (RBC) [Ratio] 12.1 % 11.0 - 15.0 % [facility] Hematocrit (Bld) [Volume fraction] 40.1 % 36.0 - 48.0 % [facility] e Hemoglobin (Bld) [Mass/Vol] 13.5 g/dL 12.0 - 16.0 g/dL [facility] IMMATURE GRANULOCYTES ABS AUTO 0.03 [facility] Immature granulocytes/100 WBC (Bld) 0.4 % 0.0 - 0.5 % [facility] Interpretation and review of laboratory results Abnormal [facility] LYMPHOCYTES ABSOLUTE AUTO 1.7 [facility] Lymphocytes/100 WBC (Bld) 23.9 % 20.5 - 60.0 % [facility] MCH (RBC) [Entitic mass] 30.3 pg 26.7 - 34.0 pg [facility] MCHC (RBC) [Mass/Vol] 33.7 g/dL 29.9 - 35.2 g/dL [facility] MCV (RBC) [Entitic vol] 90.1 fL 81.0 - 99.0 fL [facility] MONOCYTES ABSOLUTE AUTO 0.5 [facility] Monocytes/100 WBC (Bld) 7.4 % 1.7 - 12.0 % [facility] NEUTROPHILS ABSOLUTE AUTO 4.8 [facility] Neutrophils/100 WBC (Bld) 65.9 % 43.0 - 75.0 % [facility] Platelet mean volume (Bld) [Entitic vol] 8.7 fL Low 9.5 - 13.5 fL [facility] Healthcare [facility] EO # 0.1 [facility] PLT 299 [facility] RBC 4.45 [facility] WBC 7.3 [facility]car e Reminderson 07-12-2024 Reminders Reminders From: Sanjuana Muñoz To: EU - Administrative; Sent: 2024 10:01:58 EDT Show up: 07/07/2024 10:01:00 EDT Subject: 6 month F/U Due Date/Time: 11/01/2024 10:01:00 EST Reminder/Recall Patient needs scheduled for a 6 month F/U with PETER, due back Mid October 2024. LVM for patient to call and schedule f/u [facility] Screenson 05-11-2024 Screens [id number]. 00TIFF [facility] Ambulatory Visit Summaryon 0 2024 Ambulatory [...] 3:00 PM EDT With: RUTH CLARK, Yonis Mckenize Where: [facility] General Surgery Aniyah Normal [facility] Patient Educationon 05-10-20 24 Patient [...] Follow these instructions at home: ? Take oqex-vpe-dqaczmn and prescription medicines as told by your [...] get worse. (more content not included)... Normal [facility] Urology Office/Clinic Noteon 2024 Urology [...] back normal. 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 Also had a difficult PO recovery and had a CT scan done in the ER which indicated her Mirena is not in the correct spot. States she plans to f/u with her director of sustainability. We did speak about how some pts [...] Bactrim SS 1 tab prn -F/u with [facility] to discuss IUD/different form of control -F/u [...] Contact Information EMILIANA STEPHENS, JANNETH Barreto, URL [address] [place] [address] [phone] Additional Instructions: 6 mos (no labs) Patient [...] virus vaccine, (more content not included)... Normal [facility] Comment on above: Result Comment: Elec tronically Signed By: JANNETH HOPSON PA-C\.br\Date and Time Signed: 05/10/24 09:55 EDT\.br\Electronically Co-Signed By: Ondina Parra\.br\Date and Time Co-Signed: 05/10/24 09:51 EDT Outside Colonoscopyon 2023 Outside Colonoscopy [id number]#1.00 TIFF [facility] Lab Reportson 04-28-2024 Lab Reports [id number]#1.0 0TIFF [facility] Consent for Procedure/Surger yon 03-09-2024 Consent for Procedure/Surgery [id number]#1.0 0TIFF [facility] Ambulatory Visit Summaryon 0 03-08-2024 Ambulatory Visit Summary ROSALIE FREEMAN V :1995 Visit Date:03/08/2024 Ambulatory Visit Instructions Your Care Team Attending Physician - RUTH CLARK, Yonis Mckenzie Primary Care Physician - Melodie Hargrove MD Referring Physician - Beena CLARK, Melodie This Is Your Medications List cephalexin (Keflex [...] JANNETH HOPSON PA-C Where: [facility] Physician Referralon 024 Physician Referral [id number]#1.0 0TIFF [facility] Physician Referralon 024 Physician Referral [id number]#1.0 0TIFF [facility] Consent for Procedure/Surger yon 02-09-2024 Consent for Procedure/Surgery [id number]#1. 00TIFF [facility] Consent for Treatmenton 01-21 Consent for Treatment [id number]#1.0 0TIFF [facility] IntraOperative Documentson 0 02-09-2024 IntraOperative Documents [id number]#1. 00TIFF [facility] Main OR Intraoperative Recor don 02-09-2024 Main OR Intraoperative Record IntraOp Document Type FTURO Summary Primary Physician: Dieter SALMON MD Finalized Date/Time: 02/09/24 08:32:09 Pt. Name: ASHLEE FREEMANRonnie Martin/Sex: 1995 Female Med Rec #: [id number] Physician: Dieter SALMON MD Financial #: [id number] Pt. Type: O Room/Bed: / Admit/Disch: 02/09/24 07:32:51 - Institution: Case Times FTURO Entry 1 Patient Times In Room 02/09/24 08:10:00 Out Room 02/09/24 08:38:00 Procedure Times Start 02/09/24 08:24:00 Stop 02/09/24 08:33:00 Anesthesia Times Last Modified By: Сергей VALENZUELA, RAYMONDORSangita 02/09/24 08:31:26 Case Attendance FTURO Entry 1 Entry 2 Entry 3 Case Attendee Dieter SALMON MD RN, RAYMONDOR, Maryam GRIGSBY, Bianca Quesada Role Performed Surgeon - Primary Humane Agent - Primary Scrub - Primary Time In [...] Position Verified Availability Equipment, Medication Time Out ASNDRITA CLARK, Dieter Mckenzie, Verified (If Participants GIUSEPPE Rushing RN, Applicable) Maryam Quesada CST, Bianca Bazzi Time [...] GIUSEPPE Rushing RN, Ruthann 02/09/24 08:32 Normal [facility] Main OR Preoperative Recordo n 02-09-2024 Main OR Preoperative Record Holding Area Document Type FTURO Summary Primary Physician: Dieter SALMON MD Finalized Date/Time: 02/09/24 08:08:52 Pt. Name: ASHLEE FREEMANRonnie GentileO.B./Sex: 1995 Female Med Rec #: [id number] Physician: Dieter SALMON MD Financial #: [id number] Pt. Type: O Room/Bed: / Admit/Disch: 02/09/24 [...] GIUSEPPE Rushing RN, Ruthann 02/09/24 08:08 Normal [facility] Operative Reporton Operative Report Patient: [...] cause of her recurrent urinary tract infections.. [facility] Comment on above: Result Comment: Elec tronically Signed By: Dieter SALMON MD\.br\Date and Time Signed: 02/09/24 08:36 EDT Outpatient Surgery Discharge Instructionon 02-09-2024 Outpatient Surgery Discharge Instruction [id number]#1. 00TIFF [facility] RAD - MISCon 01-29-2024 RAD - MISC [id number]#1.0 0TIFF [facility] C Urineon 01-21-2024 Bacteria identified Cx Nom (U) Microbiology PROCEDURE: Urine Culture [R1] SOURCE: U CleanCatch BODY SITE: COLLECTED DATE/TIME: 01/19/2024 10:53 EST RECEIVED DATE/TIME: 01/19/2024 19:24 EST START DATE/TIME: 01/19/2024 19:24 EST FREE TEXT SOURCE: JANNETH HOPSON PA-C, PA-C, JENNIFER E FINAL REPORTS Final Report [] Verified Date/Time: 01/21/2024 07:11 EST 5,000 cfu/ml Mixed skin contaminants Performing Locations R1: This test was performed at: [facility], [address] [place] [address], [address]- , , [facility] Comment on above: Performed By: #### 2 [id number] ####[facility] [id number] [place] [id number] Lab Reportson 01-21-2024 Lab Reports [id number]#1. 00TIFF [facility] Lab Reports [id number]#1. 00TIFF [facility] RAD - CT Reporton 01-21-2024 RAD - CT Report [id number]#1. 00TIFF [facility] RAD - Ultrasound Reporton RAD - Ultrasound Report [id number]#1. 00TIFF [facility] RAD - Ultrasound Report [id number]#1. 00TIFF [facility] Screenson 01-21-2024 Screens [id number]#1.0 0TIFF [facility] Ambulatory Visit Summaryon 0 01-19-2024 Ambulatory [...] JANNETH HOPSON PA-C, URL When: Where: [address] [facility] [address] Medications What How Much When Instructions New sulfamethoxazole-trime thoprim (Bactrim 400 mg-80 mg Tab) 1 Tablets By Mouth Every day as needed for UTI prevention Refills: 3 Pickup at [facility]/pharmacy #[id number] Unchanged guanfacine (guanfacine 3 [...] physician if questions or concerns Pharmacy Information [facility]/pharmacy #[id number]: [address], [place] [phone] Allergies No Known Allergies No Known Medication [...] urinati (more content not included)... Normal [facility] Patient Educationon 01-19-20 24 Patient Education Obstetrics [...] this condition includes: ? Antibiotic medicine. ? Ocon-yxh-vzsiipq medicines to treat discomfort. ? Drinking enough [...] these instructions at home: Medicines ? Take lxri-hln-wpmmrmj and prescription medicines only as told by [...] Document Revie (more content not included)... Normal [facility] BNPon 04-17-2023 Natriuretic peptide B (Bld) [Mass/Vol] 246.0 pg/mL Normal <=450.0 [place] Comment on above: Performed By: #### I NSULIN #### [facility] [address] [place] [address] Dr. Saray Souza CARDIAC NELI ADMITon 023 CK [Catalytic activity/Vol] 47 U/L Normal 26-192 [place] Comment on above: Performed By: #### I NSULIN #### [facility] [address] [place] [address] Dr. Saray Souza CK.MB [Mass/Vol] 1.02 ng/mL Normal <=3.60 [facility] Comment on above: Performed By: #### I NSULIN #### [facility] [address] [place] [address] Dr. Saray Souza HSTROP 4.5 pg/mL Normal 4.0-51.3 [place] Comment on above: Result Comment: CUT- OFF POINTS HAVE BEEN ESTABLISHED BASED ON THE FOURTH UNIVERSAL DEFINITIONS OF MYOCARDIAL INFARCTION. THE UPPER REFERENCE LIMIT (URL) OF TROPONIN, DEFINED THE 99TH PERCENTILE OF cTnI DISTRIBUTION IN A REFERENCE POPULATION, HAS BEEN CONFIRMED THE DECISION THRESHOLD FOR PR DIAGNOSIS. Performed By: #### I NSULIN #### [facility] [address] [place] [address] Dr. Saray Souza FRANKLIN 36 ng/mL Normal 9-82 [facility] Comment on above: Performed By: #### I NSULIN #### [facility] [address] [place] [address] Dr. Saray Souza CBC W MANUAL DIFFon 04-17-20 23 ATYPICAL LYMPH # Normal [facility] Comment on above: Performed By: #### C BCMAN #### [facility] [address] [place] [address] Dr. Saray Souza ATYPICAL LYMPH % Normal [facility] Comment on above: Performed By: #### C BCMAN #### [facility] [address] [place] [address] Dr. Saray Souza BAND # 0.3 103/ul Normal 0.0-0.3 [place] Comment on above: Performed By: #### C BCMAN #### [facility] [address] [place] [address] Dr. Saray Souza BAND % 1 % Normal 0-5 [place] Comment on above: Performed By: #### C BCMAN #### [facility] [address] [place] [address] Dr. Saray Souza BASOM # 0.00 103/ul Normal 0.00-0.10 [place] Comment on above: Performed By: #### C BCMAN #### [facility] [address] [place] [address] Dr. Saray Souza BASOM % 0.0 % Critically low 0.2-2.0 [facility] Comment on above: Performed By: #### C BCMAN #### [facility] [address] [place] [address] Dr. Saray Souza BLAST # Normal [place] Comment on above: Performed By: #### C BCMAN #### [facility] [address] [place] [address] Dr. Saray Souza BLAST % Normal [facility] Comment on above: Performed By: #### C BCMAN #### [facility] [address] [place] [address] Dr. Saray Souza CORRECTED WBC Normal 4.0-11.0 [facility] [facility] Comment on above: Performed By: #### C BCMAN #### [facility] [address] [place] [address] Dr. Saray Souza EOS # 0.00 103/ul Normal 0.00-0.70 [place] Comment on above: Performed By: #### C BCMAN #### [facility] [address] [place] [address] Dr. Saray Souza EOS% 0.0 % Critically low 0.9-7.0 [facility] Comment on above: Performed By: #### C EDGARDO #### [facility] [address] [place] [address] Dr. Saray Souza HCT 43.6 % Normal 36.0-48.0 [place] Comment on above: Performed By: #### C EDGARDO #### [facility] [address] [address] [address] Saray Souza HGB 14.7 g/dl Normal 12.0-16.0 [place] Comment on above: Performed By: #### C EDGARDO #### [facility] [address] [place] [address] Dr. Saray Souza LYMPHM # 1.55 103/ul Normal 1.20-3.80 [place] Comment on above: Performed By: #### C EDGARDO #### [facility] [address] [place] [address] Dr. Saray Souza LYMPHM% 6.0 % Critically low 20.5-60.0 [facility] Comment on above: Performed By: #### C EDGARDO #### [facility] [address] [place] [address] Dr. Saray Souza MCH 30.3 pg Normal 26.7-34.0 [place] Comment on above: Performed By: #### C EDGARDO #### [facility] [address] [place] [address] Dr. Saray Souza MCHC 33.7 g/dl Normal 29.9-35.2 [place] Comment on above: Performed By: #### C EDGARDO #### [facility] [address] [place] [address] Dr. Saray Souza MCV 89.9 fL Normal 81.0-99.0 [place] Comment on above: Performed By: #### C EDGARDO #### [facility] [address] [place] [address] Dr. Saray Souza METAMYELOCYTE # Normal [facility] Comment on above: Performed By: #### C EDGARDO #### [facility] [address] [address] [address] Saray Souza METAMYELOCYTE % Normal [facility] Comment on above: Performed By: #### C EDGARDO #### [facility] [address] [address] [address] Saray Souza MONOM# 2.06 103/ul Critically high 0.30-0.80 [facility] Comment on above: Performed By: #### C EDGARDO #### [facility] [address] [address] [address] Saray Souza MONOM% 8.0 % Normal 1.7-12.0 [place] Comment on above: Performed By: #### C EDGARDO #### [facility] [address] [place] [address] Dr. Saray Souza MPV 8.8 fL Critically low 9.5-13.5 [facility] Comment on above: Performed By: #### C EDGARDO #### [facility] [address] [place] [address] Dr. Saray Souza MYELOCYTE # Normal [place] Comment on above: Performed By: #### C EDGARDO #### [facility] [address] [place] [address] Dr. Saray Souza MYELOCYTE % Normal [place] Comment on above: Performed By: #### C EDGARDO #### [facility] [address] [place] [address] Dr. Saray Souza NRBC Normal [place] Comment on above: Performed By: #### C EDGARDO #### [facility] [address] [place] [address] Dr. Saray Souza PLT 397 103/ul Normal 150-450 [place] Comment on above: Performed By: #### C EDGARDO #### [facility] [address] [place] [address] Dr. Saray Souza RBC 4.85 106/ul Normal 4.20-5.40 [place] Comment on above: Performed By: #### C EDGARDO #### [facility] [address] [place] [address] Dr. Saray Souza RDW 12.0 % Normal 11.0-15.0 [place] Comment on above: Performed By: #### C BCMAN #### [facility] [address] [place] [address] Dr. Saray Souza SEG # 21.93 103/ul Critically high 1.40-6.50 [facility] Comment on above: Performed By: #### C BCMAN #### [facility] [address] [place] [address] Dr. Saray Souza SEG % 85.0 % Critically high 43.0-75.0 [facility] Comment on above: Performed By: #### C BCMAN #### [facility] [address] [place] [address] Dr. Saray Souza WBC 25.8 103/ul Critically high 4.0-11.0 [facility] Comment on above: Performed By: #### C DAVIDMAN #### [facility] [address] [place] [address] Dr. Saray Souza CULTURE URINEon 04-17-2023 CULTURE URINE Culture Observations : LORENZO TO FOLLOW. Isolate 1 Enterococcus faecalis 20,000 cfu/mL of Normal [place] Comment on above: Performed By: #### C BC #### [facility] [address] [place] [address] Dr. Saray Souza ER URINE PROFILEon 3 Bilirubin Ql (U) Negative Normal NEGATIVE [facility] Comment on above: Performed By: #### C BC #### [facility] [address] [place] [address] Dr. Saray Souza Clarity (U) CLEAR Normal CLEAR [facility] Comment on above: Performed By: #### C BC #### [facility] [address] [place] [address] Dr. Saray Souza Color (U) LT. YELLOW Normal YELLOW [facility] Comment on above: Performed By: #### C BC #### [facility] [address] [place] [address] Dr. Saray Souza ERUAHD A micrscopic examination will be performed if indicated. Normal [facility] Comment on above: Performed By: #### C BC #### [facility] [address] [address] [address] Saray Souza Glucose Ql (U) Negative Normal NEGATIVE [facility] Comment on above: Performed By: #### C BC #### [facility] [address] [address] [address] Saray Souza Hemoglobin Ql (U) Negative Normal NEGATIVE [facility] Comment on above: Performed By: #### C BC #### [facility] [address] [place] [address] Dr. Saray Souza Ketones Ql (U) Negative Normal NEGATIVE [facility] Comment on above: Performed By: #### C BC #### [facility] [address] [place] [address] Dr. Saray Souza LEUKOCYTES SMALL Abnormal NEGATIVE [place] Comment on above: Performed By: #### C BC #### [facility] [address] [place] [address] Dr. Saray Souza Nitrite Ql (U) Negative Normal NEGATIVE [facility] Comment on above: Performed By: #### C BC #### [facility] [address] [place] [address] Dr. Saray Souza pH (U) 6.5 [pH] Normal 5-9 [place] Comment on above: Performed By: #### C BC #### [facility] [address] [place] [address] Dr. Saray Souza SPEC GRAVITY 1.025 Normal 1.005-<=1.025 [facility] Comment on above: Performed By: #### C BC #### [facility] [address] [place] [address] Dr. Saray Souza UA PROTEIN Negative Normal NEGATIVE/ TRACE [facility] Comment on above: Performed By: #### C BC #### [facility] [address] [place] [address] Dr. Saray Souza UR MICRO IND INDICATED Normal [facility] Comment on above: Performed By: #### C BC #### [facility] [address] [place] [address] Dr. Saray Souza Urobilinogen Qn (U) 0.2 {Janine'U}/dL Normal 0.2 - 1. 0 [place] Comment on above: Performed By: #### C BC #### [facility] [address] [place] [address] Dr. Saray Souza URon 04-17-2023 , QUAL Negative Normal NEGATIVE [facility] Comment on above: Performed By: #### C BC #### [facility] [address] [place] [address] Dr. Saray Souza PROF 14(COMP METB)on 023 Albumin [Mass/Vol] 3.0 g/dL Critically low 3.4-5.0 [facility] Comment on above: Performed By: #### I NSULIN #### [facility] [address] [place] [address] Dr. Saray Souza Albumin/Globulin [Mass ratio] 0.9 {ratio} Normal [place] Comment on above: Performed By: #### I NSULIN #### [facility] [address] [place] [address] Dr. Saray Souza ALP [Catalytic activity/Vol] 54 U/L Normal 46-116 [place] Comment on above: Performed By: #### I NSULIN #### [facility] [address] [place] [address] Dr. Saray Souza ALT [Catalytic activity/Vol] 27 U/L Normal 14-59 [place] Comment on above: Performed By: #### I NSULIN #### [facility] [address] [place] [address] Dr. Saray Souza Anion gap [Moles/Vol] 12.9 mmol/L Normal [place] Comment on above: Performed By: #### I NSULIN #### [facility] [address] [place] [address] Dr. Saray Souza AST [Catalytic activity/Vol] 12 U/L Critically low 15-37 [place] Comment on above: Performed By: #### I NSULIN #### [facility] [address] [address] [address] Saray Souza Bilirubin [Mass/Vol] 0.3 mg/dL Normal 0.2-1.0 [place] Comment on above: Performed By: #### I NSULIN #### [facility] [address] [place] [address] Dr. Saray Souza Calcium [Mass/Vol] 8.1 mg/dL Critically low 8.5-10.1 [facility] Comment on above: Performed By: #### I NSULIN #### [facility] [address] [place] [address] Dr. Saray Souza Chloride [Moles/Vol] 102 mmol/L Normal 98-107 [place] Comment on above: Performed By: #### I NSULIN #### [facility] [address] [place] [address] Dr. Saray Souaz CO2 [Moles/Vol] 26.2 mmol/L Normal 21.0-32.0 [facility] Comment on above: Performed By: #### I NSULIN #### [facility] [address] [place] [address] Dr. Saray Souza Creatinine [Mass/Vol] 0.87 mg/dL Normal 0.55-1.02 [place] Comment on above: Performed By: #### I NSULIN #### [facility] [address] [place] [address] Dr. Saray Souza EGFR-AF ANGOLAN >60 Normal >=60 [facility] Comment on above: Performed By: #### I NSULIN #### [facility] [address] [place] [address] Dr. Saray Souza EGFR-NON AF ANGOLAN >60 Normal >=60 [place] Comment on above: Performed By: #### I NSULIN #### [facility] [address] [place] [address] Dr. Saray Souza Globulin (S) [Mass/Vol] 3.2 g/dL Normal [place] Comment on above: Performed By: #### I NSULIN #### [facility] [address] [place] [address] Dr. Saray Souza Glucose [Mass/Vol] 206 mg/dL Critically high 74-106 [facility] Comment on above: Performed By: #### I NSULIN #### [facility] [address] [place] [address] Dr. Saray Souza Potassium [Moles/Vol] 4.1 mmol/L Normal 3.5-5.1 [place] Comment on above: Performed By: #### I NSULIN #### [facility] [address] [place] [address] Dr. Saray Souza Protein [Mass/Vol] 6.2 g/dL Critically low 6.4-8.2 [facility] Comment on above: Performed By: #### I NSULIN #### [facility] [address] [place] [address] Dr. Saray Souza Sodium [Moles/Vol] 137 mmol/L Normal 136-145 [facility] Comment on above: Performed By: #### I NSULIN #### [facility] [address] [place] [address] Dr. Saray Souza Urea nitrogen [Mass/Vol] 19.0 mg/dL Critically high 7.0-18.0 [place] Comment on above: Performed By: #### I NSULIN #### [facility] [address] [place] [address] Dr. Saray Souza Urea nitrogen/Creatinine [Mass ratio] 21.8 mg/mg Normal [place] Comment on above: Performed By: #### I NSULIN #### [facility] [address] [place] [address] Dr. Saray Souza TSHon 04-17-2023 TSH 0.553 uIU/mL Normal 0.358-3.740 [facility] Comment on above: Performed By: #### I NSULIN #### [facility] [address] [place] [address] Dr. Saray Souza URINE MICROSCOPIC ONLYon BACTERIA TRACE Abnormal NONE SEEN [place] Comment on above: Performed By: #### C BC #### [facility] [address] [place] [address] Dr. Saray Souza Bacteria identified Cx Nom (U) INDICATED Normal [facility] Comment on above: Performed By: #### C BC #### [facility] [address] [place] [address] Dr. Saray Souza CAST NONE SEEN Normal NONE SEEN [place] Comment on above: Performed By: #### C BC #### [facility] [address] [place] [address] Dr. Saray Souza Crystals LM Nom (Urine sed) NONE SEEN Normal NONE SEEN [facility] Comment on above: Performed By: #### C BC #### [facility] [address] [place] [address] Dr. Saray Souza Epithelial cells LM Ql (Urine sed) RARE Normal NONE SEEN /RARE [facility] Comment on above: Performed By: #### C BC #### [facility] [address] [place] [address] Dr. Saray Souza MUCOUS NONE SEEN Normal NONE SEEN [facility] Comment on above: Performed By: #### C BC #### [facility] [address] [place] [address] Dr. Saray Souza RBC 0-2 Normal 0-2 [facility] Comment on above: Performed By: #### C BC #### [facility] [address] [place] [address] Dr. Saray Souza WBC 5-10 Abnormal NONE SEEN [place] Comment on above: Performed By: #### C BC #### [facility] [address] [place] [address] Dr. Saray Souza XR CHEST 2 Von [...] Date: 2023-04-17 10:45 Normal [facility] INSULINon 04-07-2023 Insulin 11.3 uIU/mL Normal 2.6-24.9 [place] Comment on above: Performed By: #### I NSULIN #### [facility] [address] [place] [address] Dr. Saray Souza US KIDNEYS BLADDERon 023 [...] Date: 2023-04-04 08:22 Normal [facility] INSULINon 04-02-2023 Insulin 37.5 uIU/mL Critically high 2.6-24.9 [facility] Comment on above: Performed By: #### I NSULIN #### [facility] [address] [place] [address] Dr. Saray Souza CBC AUTO DIFFon 04-01-2023 BASO # 0.0 103/ul Normal 0.0-0.1 [place] Comment on above: Performed By: #### C BC #### [facility] [address] [place] [address] Dr. Saray Souza Basophils/100 WBC (Bld) 0.5 % Normal 0.2-2.0 [place] Comment on above: Performed By: #### C BC #### [facility] [address] [place] [address] Dr. Saray Souza EO # 0.2 103/ul Normal 0.0-0.7 [place] Comment on above: Performed By: #### C BC #### [facility] [address] [place] [address] Dr. Saray Souza Eosinophils/100 WBC (Bld) 2.3 % Normal 0.9-7.0 [place] Comment on above: Performed By: #### C BC #### [facility] [address] [place] [address] Dr. Saray Souza Erythrocyte distribution width (RBC) [Ratio] 11.9 % Normal 11.0-15.0 [place] Comment on above: Performed By: #### C BC #### [facility] [address] [place] [address] Dr. Saray Souza Hematocrit (Bld) [Volume fraction] 42.2 % Normal 36.0-48.0 [place] Comment on above: Performed By: #### C BC #### [facility] [address] [place] [address] Dr. Saray Souza Hemoglobin (Bld) [Mass/Vol] 13.7 g/dL Normal 12.0-16.0 [place] Comment on above: Performed By: #### C BC #### [facility] [address] [place] [address] Dr. Saray Souza IG # 0.02 10e3/ul Normal 0.00-0.03 [facility] Comment on above: Performed By: #### C BC #### [facility] [address] [place] [address] Dr. Saray Souza IG % 0.3 % Normal 0.0-0.5 [facility] Comment on above: Performed By: #### C BC #### [facility] [address] [place] [address] Dr. Saray Souza LYMPH # 1.6 103/ul Normal 1.2-3.8 [facility] Comment on above: Performed By: #### C BC #### [facility] [address] [place] [address] Dr. Saray Souza Lymphocytes/100 WBC (Bld) 21.5 % Normal 20.5-60.0 [place] Comment on above: Performed By: #### C BC #### [facility] [address] [place] [address] Dr. Saray Souza MANUAL DIFF REQ NO Normal [facility] Comment on above: Performed By: #### C BC #### [facility] [address] [place] [address] Dr. Saray Souza MCH (RBC) [Entitic mass] 30.0 pg Normal 26.7-34.0 [place] Comment on above: Performed By: #### C BC #### [facility] [address] [place] [address] Dr. Saray Souza MCHC (RBC) [Mass/Vol] 32.5 g/dL Normal 29.9-35.2 [place] Comment on above: Performed By: #### C BC #### [facility] [address] [place] [address] Dr. Saray Souza MCV (RBC) [Entitic vol] 92.5 fL Normal 81.0-99.0 [place] Comment on above: Performed By: #### C BC #### [facility] [address] [place] [address] Dr. Saray Souza MONO # 0.7 103/ul Normal 0.3-0.8 [place] Comment on above: Performed By: #### C BC #### [facility] [address] [place] [address] Dr. Saray Souza Monocytes/100 WBC (Bld) 9.6 % Normal 1.7-12.0 [place] Comment on above: Performed By: #### C BC #### [facility] [address] [place] [address] Dr. Saray Souza NEUT # 5.0 103/ul Normal 1.4-6.5 [facility] Comment on above: Performed By: #### C BC #### [facility] [address] [place] [address] Dr. Saray Souza Neutrophils/100 WBC (Bld) 65.8 % Normal 43.0-75.0 [facility] Comment on above: Performed By: #### C BC #### [facility] [address] [address] [address] Saray Souza Platelet mean volume (Bld) [Entitic vol] 8.9 fL Critically low 9.5-13.5 [place] Comment on above: Performed By: #### C BC #### [facility] [address] [address] [address] Saray Suoza PLT 293 103/ul Normal 150-450 [facility] Comment on above: Performed By: #### C BC #### [facility] [address] [address] [address] Saray Souza RBC 4.56 106/ul Normal 4.20-5.40 [place] Comment on above: Performed By: #### C BC #### [facility] [address] [place] [address] Dr. Saray Souza WBC 7.5 103/ul Normal 4.0-11.0 [place] Comment on above: Performed By: #### C BC #### [facility] [address] [place] [address] Dr. Saray Souza CULTURE URINEon 04-01-2023 CULTURE URINE Culture Observations : MODERATE GROWTH OF MIXED GENITAL CARMELO. NO POTENTIAL PATHOGENS SEEN. Normal [place] Comment on above: Performed By: #### C BC #### [facility] [address] [place] [address] Dr. Saray Suoza FREE THYROXINE INDEX T7on FTI 2.51 Normal 1.30-4.50 [place] Comment on above: Performed By: #### I NSULIN #### [facility] [address] [place] [address] Dr. Saray Souza T3U 33.0 % Normal 30.0-39.0 [place] Comment on above: Performed By: #### I NSULIN #### [facility] [address] [place] [address] Dr. Saray Souza T4 [Mass/Vol] 7.60 ug/dL Normal 4.80-13.90 [facility] Comment on above: Performed By: #### I ANA #### [facility] [address] [address] [address] Saray FRIENDon 04-01-2023 Iron [Mass/Vol] 151.0 ug/dL Normal 50.0-170.0 [facility] Comment on above: Performed By: #### C EDGARDO #### [facility] [address] [place] [address] Dr. Saray Souza PROF 14(COMP METB)on 023 Albumin [Mass/Vol] 3.7 g/dL Normal 3.4-5.0 [facility] Comment on above: Performed By: #### C EDGARDO #### [facility] [address] [place] [address] Dr. Saray Souza Albumin/Globulin [Mass ratio] 1.1 {ratio} Normal [place] Comment on above: Performed By: #### C EDGARDO #### [facility] [address] [place] [address] Dr. Saray Souza ALP [Catalytic activity/Vol] 81 U/L Normal 46-116 [facility] Comment on above: Performed By: #### C EDGARDO #### [facility] [address] [place] [address] Dr. Saray Souza ALT [Catalytic activity/Vol] 33 U/L Normal 14-59 [facility] Comment on above: Performed By: #### C EDGARDO #### [facility] [address] [place] [address] Dr. Saray Souza Anion gap [Moles/Vol] 10.2 mmol/L Normal [place] Comment on above: Performed By: #### C EDGARDO #### [facility] [address] [place] [address] Dr. Saray Souza AST [Catalytic activity/Vol] 22 U/L Normal 15-37 [place] Comment on above: Performed By: #### C EDGARDO #### [facility] [address] [place] [address] Dr. Saray Souza Bilirubin [Mass/Vol] 0.3 mg/dL Normal 0.2-1.0 [facility] Comment on above: Performed By: #### C BCMAN #### [facility] [address] [address] [address] Saray Souza Calcium [Mass/Vol] 8.6 mg/dL Normal 8.5-10.1 [facility] Comment on above: Performed By: #### C BCMAN #### [facility] [address] [address] [address] Saray Souza Chloride [Moles/Vol] 105 mmol/L Normal 98-107 [place] Comment on above: Performed By: #### C BCMAN #### [facility] [address] [place] [address] Dr. Saray Souza CO2 [Moles/Vol] 30.4 mmol/L Normal 21.0-32.0 [facility] Comment on above: Performed By: #### C BCMAN #### [facility] [address] [place] [address] Dr. Saray Souza Creatinine [Mass/Vol] 0.72 mg/dL Normal 0.55-1.02 [place] Comment on above: Performed By: #### C BCMAN #### [facility] [address] [place] [address] Dr. Saray Souza EGFR-AF ANGOLAN >60 Normal >=60 [facility] Comment on above: Performed By: #### C BCMAN #### [facility] [address] [place] [address] Dr. Saray Souza EGFR-NON AF ANGOLAN >60 Normal >=60 [facility] Comment on above: Performed By: #### C BCMAN #### [facility] [address] [place] [address] Dr. Saray Souza Globulin (S) [Mass/Vol] 3.5 g/dL Normal [place] Comment on above: Performed By: #### C BCMAN #### [facility] [address] [place] [address] Dr. Saray Souza Glucose [Mass/Vol] 89 mg/dL Normal 74-106 [facility] Comment on above: Performed By: #### C BCMAN #### [facility] [address] [address] [address] Saray Souza Potassium [Moles/Vol] 3.6 mmol/L Normal 3.5-5.1 [place] Comment on above: Performed By: #### C EDGARDO #### [facility] [address] [address] [address] Saray Souza Protein [Mass/Vol] 7.2 g/dL Normal 6.4-8.2 [facility] Comment on above: Performed By: #### C EDGARDO #### [facility] [address] [place] [address] Dr. Saray Souza Sodium [Moles/Vol] 142 mmol/L Normal 136-145 [facility] Comment on above: Performed By: #### C EDGARDO #### [facility] [address] [place] [address] Dr. Saray Souza Urea nitrogen [Mass/Vol] 12.0 mg/dL Normal 7.0-18.0 [place] Comment on above: Performed By: #### C EDGARDO #### [facility] [address] [place] [address] Dr. Saray Souza Urea nitrogen/Creatinine [Mass ratio] 16.7 mg/mg Normal [place] Comment on above: Performed By: #### C EDGARDO #### [facility] [address] [place] [address] Dr. Saray Souza TSHon 04-01-2023 TSH 1.708 uIU/mL Normal 0.358-3.740 [facility] Comment on above: Performed By: #### I NSULIN #### [facility] [address] [place] [address] Dr. Saray Souza UA RANDOM W/MICROSCOPICon BACTERIA SMALL Abnormal NONE SEEN The [facility] Comment on above: Performed By: #### I NSULIN #### [facility] [address] [place] [address] Dr. Saray Souza Bilirubin Ql (U) Negative Normal NEGATIVE The [facility] Comment on above: Performed By: #### I NSULIN #### [facility] [address] [place] [address] Dr. Saray Souza CAST NONE SEEN Normal NONE SEEN The [facility] Comment on above: Performed By: #### I NSULIN #### [facility] [address] [place] [address] Dr. Saray Souza Clarity (U) CLEAR Normal CLEAR The [facility] Comment on above: Performed By: #### I NSULIN #### [facility] [address] [place] [address] Dr. Saray Souza Color (U) YELLOW Normal YELLOW The [facility] Comment on above: Performed By: #### I NSULIN #### [facility] [address] [place] [address] Dr. Sarya Souza Crystals LM Nom (Urine sed) NONE SEEN Normal NONE SEEN [place] Comment on above: Performed By: #### I NSULIN #### [facility] [address] [place] [address] Dr. Saray Souza Epithelial cells LM Ql (Urine sed) FEW Abnormal NONE SEEN /RARE The [facility] Comment on above: Performed By: #### I NSULIN #### [facility] [address] [place] [address] Dr. Saray Souza Glucose Ql (U) Negative Normal NEGATIVE The [facility] Comment on above: Performed By: #### I NSULIN #### [facility] [address] [place] [address] Dr. Saray Souza Hemoglobin Ql (U) Negative Normal NEGATIVE The [facility] Comment on above: Performed By: #### I NSULIN #### [facility] [address] [place] [address] Dr. Saray Souza Ketones Ql (U) TRACE Abnormal NEGATIVE The [facility] Comment on above: Performed By: #### I NSULIN #### [facility] [address] [place] [address] Dr. Saray Souza LEUKOCYTES SMALL Abnormal NEGATIVE The [facility] Comment on above: Performed By: #### I NSULIN #### [facility] [address] [place] [address] Dr. Saray Souza MUCOUS NONE SEEN Normal NONE SEEN The [facility] Comment on above: Performed By: #### I NSULIN #### [facility] [address] [place] [address] Dr. Saray Souza Nitrite Ql (U) Negative Normal NEGATIVE The [facility] Comment on above: Performed By: #### I NSULIN #### [facility] [address] [place] [address] Dr. Saray Souza pH (U) 5.5 [pH] Normal 5-9 The [facility] Comment on above: Performed By: #### I NSULIN #### [facility] [address] [place] [address] Dr. Saray Souza RBC 0-2 Normal 0-2 [place] Comment on above: Performed By: #### I NSULIN #### [facility] [address] [place] [address] Dr. Saray Souza SPEC GRAVITY >=1.030 Abnormal 1.005-<=1.025 [facility] Comment on above: Performed By: #### I NSULIN #### [facility] [address] [place] [address] Dr. Saray Souza UA PROTEIN Negative Normal NEGATIVE/ TRACE The [facility] Comment on above: Performed By: #### I NSULIN #### [facility] [address] [place] [address] Dr. Saray Souza Urobilinogen Qn (U) 0.2 {Janine'U}/dL Normal 0.2 - 1. 0 [place] Comment on above: Performed By: #### I NSULIN #### [facility] [address] [place] [address] Dr. Saray Souza WBC 5-10 Abnormal NONE SEEN [place] Comment on above: Performed By: #### I NSULIN #### [facility] [address] [place] [address] Dr. Saray Souza INSULINon 02-14-2023 Insulin 12.8 uIU/mL Normal 2.6-24.9 [place] Comment on above: Performed By: #### C BC #### [facility] [address] [place] [address] Dr. Saray Souza CBC AUTO DIFFon 02-13-2023 BASO # 0.0 103/ul Normal 0.0-0.1 [place] Comment on above: Performed By: #### C BC #### [facility] [address] [place] [address] Dr. Saray Souza Basophils/100 WBC (Bld) 0.4 % Normal 0.2-2.0 [place] Comment on above: Performed By: #### C BC #### [facility] [address] [place] [address] Dr. Saray Souza EO # 0.1 103/ul Normal 0.0-0.7 [place] Comment on above: Performed By: #### C BC #### [facility] [address] [place] [address] Dr. Saray Souza Eosinophils/100 WBC (Bld) 1.6 % Normal 0.9-7.0 [place] Comment on above: Performed By: #### C BC #### [facility] [address] [place] [address] Dr. Saray Souza Erythrocyte distribution width (RBC) [Ratio] 11.9 % Normal 11.0-15.0 [place] Comment on above: Performed By: #### C BC #### [facility] [address] [place] [address] Dr. Saray Souza Hematocrit (Bld) [Volume fraction] 41.9 % Normal 36.0-48.0 [place] Comment on above: Performed By: #### C BC #### [facility] [address] [place] [address] Dr. Saray Souza Hemoglobin (Bld) [Mass/Vol] 13.7 g/dL Normal 12.0-16.0 The [facility] Comment on above: Performed By: #### C BC #### [facility] [address] [place] [address] Dr. Saray Souza IG # 0.02 10e3/ul Normal 0.00-0.03 [place] Comment on above: Performed By: #### C BC #### [facility] [address] [address] [address] Saray Souza IG % 0.3 % Normal 0.0-0.5 The [facility] Comment on above: Performed By: #### C BC #### [facility] [address] [address] [address] Saray Souza LYMPH # 1.4 103/ul Normal 1.2-3.8 The [facility] Comment on above: Performed By: #### C BC #### [facility] [address] [place] [address] Dr. Saray Souza Lymphocytes/100 WBC (Bld) 18.6 % Critically low 20.5-60.0 The [facility] Comment on above: Performed By: #### C BC #### [facility] [address] [place] [address] Dr. Saray Souza MANUAL DIFF REQ NO Normal The [facility] Comment on above: Performed By: #### C BC #### [facility] [address] [place] [address] Dr. Saray Souza MCH (RBC) [Entitic mass] 29.9 pg Normal 26.7-34.0 The [facility] Comment on above: Performed By: #### C BC #### [facility] [address] [place] [address] Dr. Saray Souza MCHC (RBC) [Mass/Vol] 32.7 g/dL Normal 29.9-35.2 [facility] Comment on above: Performed By: #### C BC #### [facility] [address] [place] [address] Dr. Saray Souza MCV (RBC) [Entitic vol] 91.5 fL Normal 81.0-99.0 [facility] Comment on above: Performed By: #### C BC #### [facility] [address] [place] [address] Dr. Saray Souza MONO # 0.6 103/ul Normal 0.3-0.8 [facility] Comment on above: Performed By: #### C BC #### [facility] [address] [place] [address] Dr. Saray Souza Monocytes/100 WBC (Bld) 8.3 % Normal 1.7-12.0 [place] Comment on above: Performed By: #### C BC #### [facility] [address] [place] [address] Dr. Saray Souza NEUT # 5.5 103/ul Normal 1.4-6.5 [place] Comment on above: Performed By: #### C BC #### [facility] [address] [place] [address] Dr. Saray Souza Neutrophils/100 WBC (Bld) 70.8 % Normal 43.0-75.0 [place] Comment on above: Performed By: #### C BC #### [facility] [address] [place] [address] Dr. Saray Souza Platelet mean volume (Bld) [Entitic vol] 9.0 fL Critically low 9.5-13.5 [place] Comment on above: Performed By: #### C BC #### [facility] [address] [place] [address] Dr. Saray Souza PLT 271 103/ul Normal 150-450 [facility] Comment on above: Performed By: #### C BC #### [facility] [address] [place] [address] Dr. Saray Souza RBC 4.58 106/ul Normal 4.20-5.40 [facility] Comment on above: Performed By: #### C BC #### [facility] [address] [place] [address] Dr. Saray Souza WBC 7.7 103/ul Normal 4.0-11.0 [facility] Comment on above: Performed By: #### C BC #### [facility] [address] [place] [address] Dr. Saray Souza FREE THYROXINE INDEX T7on FTI 2.56 Normal 1.30-4.50 [place] Comment on above: Performed By: #### I NSULIN #### [facility] [address] [place] [address] Dr. Saray Souza T3U 36.0 % Normal 30.0-39.0 [place] Comment on above: Performed By: #### I NSULIN #### [facility] [address] [place] [address] Dr. Saray Souza T4 [Mass/Vol] 7.10 ug/dL Normal 4.80-13.90 [facility] Comment on above: Performed By: #### I NSULIN #### [facility] [address] [place] [address] Dr. Saray Souza IRONon 02-13-2023 Iron [Mass/Vol] 130.0 ug/dL Normal 50.0-170.0 [facility] Comment on above: Performed By: #### C BCMAN #### [facility] [address] [place] [address] Dr. Saray Souza PROF 14(COMP METB)on 023 Albumin [Mass/Vol] 3.8 g/dL Normal 3.4-5.0 [facility] Comment on above: Performed By: #### I NSULIN #### [facility] [address] [place] [address] Dr. Saray Souza Albumin/Globulin [Mass ratio] 1.2 {ratio} Normal [place] Comment on above: Performed By: #### I NSULIN #### [facility] [address] [place] [address] Dr. Saray Souza ALP [Catalytic activity/Vol] 82 U/L Normal 46-116 [facility] Comment on above: Performed By: #### I NSULIN #### [facility] [address] [place] [address] Dr. Saray Souza ALT [Catalytic activity/Vol] 25 U/L Normal 14-59 [place] Comment on above: Performed By: #### I NSULIN #### [facility] [address] [place] [address] Dr. Saray Souza Anion gap [Moles/Vol] 12.7 mmol/L Normal [place] Comment on above: Performed By: #### I NSULIN #### [facility] [address] [place] [address] Dr. Saray Souza AST [Catalytic activity/Vol] 19 U/L Normal 15-37 [place] Comment on above: Performed By: #### I NSULIN #### [facility] [address] [address] [address] Saray Souza Bilirubin [Mass/Vol] 0.3 mg/dL Normal 0.2-1.0 [place] Comment on above: Performed By: #### I NSULIN #### [facility] [address] [address] [address] Saray Souza Calcium [Mass/Vol] 8.8 mg/dL Normal 8.5-10.1 [facility] Comment on above: Performed By: #### I NSULIN #### [facility] [address] [place] [address] Dr. Saray Souza Chloride [Moles/Vol] 101 mmol/L Normal 98-107 [place] Comment on above: Performed By: #### I NSULIN #### [facility] [address] [place] [address] Dr. Saray Souza CO2 [Moles/Vol] 27.3 mmol/L Normal 21.0-32.0 [facility] Comment on above: Performed By: #### I NSULIN #### [facility] [address] [place] [address] Dr. Saray Souza Creatinine [Mass/Vol] 0.69 mg/dL Normal 0.55-1.02 [place] Comment on above: Performed By: #### I NSULIN #### [facility] [address] [place] [address] Dr. Saray Souza EGFR-AF ANGOLAN >60 Normal >=60 [facility] Comment on above: Performed By: #### I NSULIN #### [facility] [address] [place] [address] Dr. Saray Souza EGFR-NON AF ANGOLAN >60 Normal >=60 [place] Comment on above: Performed By: #### I NSULIN #### [facility] [address] [place] [address] Dr. Saray Souza Globulin (S) [Mass/Vol] 3.3 g/dL Normal [place] Comment on above: Performed By: #### I NSULIN #### [facility] [address] [place] [address] Dr. Saray Souza Glucose [Mass/Vol] 83 mg/dL Normal 74-106 [facility] Comment on above: Performed By: #### I NSULIN #### [facility] [address] [place] [address] Dr. Saray Souza Potassium [Moles/Vol] 4.0 mmol/L Normal 3.5-5.1 [place] Comment on above: Performed By: #### I NSULIN #### [facility] [address] [place] [address] Dr. Saray Souza Protein [Mass/Vol] 7.1 g/dL Normal 6.4-8.2 [facility] Comment on above: Performed By: #### I NSULIN #### [facility] [address] [place] [address] Dr. Saray Souza Sodium [Moles/Vol] 137 mmol/L Normal 136-145 [facility] Comment on above: Performed By: #### I NSULIN #### [facility] [address] [place] [address] Dr. Saray Souza Urea nitrogen [Mass/Vol] 10.0 mg/dL Normal 7.0-18.0 [place] Comment on above: Performed By: #### I NSULIN #### [facility] [address] [place] [address] Dr. Saray Souza Urea nitrogen/Creatinine [Mass ratio] 14.5 mg/mg Normal [place] Comment on above: Performed By: #### I NSULIN #### [facility] [address] [place] [address] Dr. Saray Souza TSHon 02-13-2023 TSH 2.745 uIU/mL Normal 0.358-3.740 [facility] Comment on above: Performed By: #### I NSULIN #### [facility] [address] [place] [address] Dr. Saray Souza AMYLASEon 02-04-2023 Amylase [Catalytic activity/Vol] 45 U/L Normal 25-115 [facility] Comment on above: Performed By: #### T SH, CMP, HSTROPN, LIPA, KELLE #### [facility] [address] [place] [address] Dr. Saray Souza CBC AUTO DIFFon 02-04-2023 BASO # 0.0 103/ul Normal 0.0-0.1 [place] Comment on above: Performed By: #### C BC #### [facility] [address] [place] [address] Dr. Saray Souza Basophils/100 WBC (Bld) 0.4 % Normal 0.2-2.0 [place] Comment on above: Performed By: #### C BC #### [facility] [address] [place] [address] Dr. Saray Souza EO # 0.1 103/ul Normal 0.0-0.7 [place] Comment on above: Performed By: #### C BC #### [facility] [address] [place] [address] Dr. Saray Souza Eosinophils/100 WBC (Bld) 1.7 % Normal 0.9-7.0 [place] Comment on above: Performed By: #### C BC #### [facility] [address] [place] [address] Dr. Saray Souza Erythrocyte distribution width (RBC) [Ratio] 12.0 % Normal 11.0-15.0 [facility] Comment on above: Performed By: #### C BC #### [facility] [address] [place] [address] Dr. Saray Souza Hematocrit (Bld) [Volume fraction] 42.3 % Normal 36.0-48.0 [place] Comment on above: Performed By: #### C BC #### [facility] [address] [place] [address] Dr. Saray Souza Hemoglobin (Bld) [Mass/Vol] 13.9 g/dL Normal 12.0-16.0 [place] Comment on above: Performed By: #### C BC #### [facility] [address] [place] [address] Dr. Saray Souza IG # 0.03 10e3/ul Normal 0.00-0.03 [place] Comment on above: Performed By: #### C BC #### [facility] [address] [place] [address] Dr. Saray Souza IG % 0.4 % Normal 0.0-0.5 [place] Comment on above: Performed By: #### C BC #### [facility] [address] [place] [address] Dr. Saray Souza LYMPH # 1.5 103/ul Normal 1.2-3.8 [place] Comment on above: Performed By: #### C BC #### [facility] [address] [place] [address] Dr. Saray Souza Lymphocytes/100 WBC (Bld) 20.4 % Critically low 20.5-60.0 [place] Comment on above: Performed By: #### C BC #### [facility] [address] [place] [address] Dr. Saray Souza MANUAL DIFF REQ NO Normal [facility] Comment on above: Performed By: #### C BC #### [facility] [address] [place] [address] Dr. Saray Souza MCH (RBC) [Entitic mass] 30.0 pg Normal 26.7-34.0 [place] Comment on above: Performed By: #### C BC #### [facility] [address] [place] [address] Dr. Saray Souza MCHC (RBC) [Mass/Vol] 32.9 g/dL Normal 29.9-35.2 [place] Comment on above: Performed By: #### C BC #### [facility] [address] [place] [address] Dr. Saray Souza MCV (RBC) [Entitic vol] 91.2 fL Normal 81.0-99.0 [place] Comment on above: Performed By: #### C BC #### [facility] [address] [place] [address] Dr. Saray Souza MONO # 0.6 103/ul Normal 0.3-0.8 [place] Comment on above: Performed By: #### C BC #### [facility] [address] [place] [address] Dr. Saray Souza Monocytes/100 WBC (Bld) 7.7 % Normal 1.7-12.0 [place] Comment on above: Performed By: #### C BC #### [facility] [address] [place] [address] Dr. Saray Souza NEUT # 5.2 103/ul Normal 1.4-6.5 [place] Comment on above: Performed By: #### C BC #### [facility] [address] [place] [address] Dr. Saray Souza Neutrophils/100 WBC (Bld) 69.4 % Normal 43.0-75.0 [place] Comment on above: Performed By: #### C BC #### [facility] [address] [place] [address] Dr. Saray Souza Platelet mean volume (Bld) [Entitic vol] 9.0 fL Critically low 9.5-13.5 [facility] Comment on above: Performed By: #### C BC #### [facility] [address] [place] [address] Dr. Saray Souza PLT 292 103/ul Normal 150-450 [facility] Comment on above: Performed By: #### C BC #### [facility] [address] [place] [address] Dr. Saray Souza RBC 4.64 106/ul Normal 4.20-5.40 [facility] Comment on above: Performed By: #### C BC #### [facility] [address] [place] [address] Dr. Saray Souza WBC 7.5 103/ul Normal 4.0-11.0 [facility] Comment on above: Performed By: #### C BC #### [facility] [address] [place] [address] Dr. Saray Souza CULTURE URINEon 02-04-2023 CULTURE URINE Culture Observations : LIGHT GROWTH OF MIXED GENITAL CARMELO. NO POTENTIAL PATHOGENS SEEN. Normal [facility] Comment on above: Performed By: #### C BC #### [facility] [address] [place] [address] Dr. Saray Souza ER URINE PROFILEon 3 Bilirubin Ql (U) Negative Normal NEGATIVE [facility] Comment on above: Performed By: #### C BC #### [facility] [address] [place] [address] Dr. Saray Souza Clarity (U) CLEAR Normal CLEAR [place] Comment on above: Performed By: #### C BC #### [facility] [address] [place] [address] Dr. Saray Souza Color (U) LT. YELLOW Normal YELLOW [place] Comment on above: Performed By: #### C BC #### [facility] [address] [place] [address] Dr. Saray PARKERAHHumera A micrscopic examination will be performed if indicated. Normal [facility] Comment on above: Performed By: #### C BC #### [facility] [address] [place] [address] Dr. Saray Souza Glucose Ql (U) Negative Normal NEGATIVE [facility] Comment on above: Performed By: #### C BC #### [facility] [address] [place] [address] Dr. Saray Souza Hemoglobin Ql (U) Negative Normal NEGATIVE [facility] Comment on above: Performed By: #### C BC #### [facility] [address] [place] [address] Dr. Saray Souza Ketones Ql (U) Negative Normal NEGATIVE [facility] Comment on above: Performed By: #### C BC #### [facility] [address] [place] [address] Dr. Saray Souza LEUKOCYTES MODERATE Abnormal NEGATIVE [place] Comment on above: Performed By: #### C BC #### [facility] [address] [place] [address] Dr. Saray Souza Nitrite Ql (U) Negative Normal NEGATIVE [facility] Comment on above: Performed By: #### C BC #### [facility] [address] [place] [address] Dr. Saray Souza pH (U) 5.5 [pH] Normal 5-9 [place] Comment on above: Performed By: #### C BC #### [facility] [address] [place] [address] Dr. Saray Souza SPEC GRAVITY >=1.030 Abnormal 1.005-<=1.025 [facility] Comment on above: Performed By: #### C BC #### [facility] [address] [place] [address] Dr. Saray Souza UA PROTEIN Negative Normal NEGATIVE/ TRACE [facility] Comment on above: Performed By: #### C BC #### [facility] [address] [place] [address] Dr. Saray Souza UR MICRO IND INDICATED Normal [place] Comment on above: Performed By: #### C BC #### [facility] [address] [place] [address] Dr. Saray Souza Urobilinogen Qn (U) 0.2 {Janine'U}/dL Normal 0.2 - 1. 0 [place] Comment on above: Performed By: #### C BC #### [facility] [address] [place] [address] Dr. Saray Souza LIPASEon 02-04-2023 Lipase [Catalytic activity/Vol] 97.0 U/L Normal 73.0-393.0 [place] Comment on above: Performed By: #### T SH, CMP, HSTROPN, LIPA, KELLE #### [facility] [address] [place] [address] Dr. Saray Souza URon 02-04-2023 , QUAL Negative Normal NEGATIVE [facility] Comment on above: Performed By: #### C BC #### [facility] [address] [place] [address] Dr. Saray Souza PROF 14(COMP METB)on 023 Albumin [Mass/Vol] 3.5 g/dL Normal 3.4-5.0 [facility] Comment on above: Performed By: #### T SH, CMP, HSTROPN, LIPA, KELLE #### [facility] [address] [place] [address] Dr. Saray Souza Albumin/Globulin [Mass ratio] 1.2 {ratio} Normal [place] Comment on above: Performed By: #### T SH, CMP, HSTROPN, LIPA, KELLE #### [facility] [address] [place] [address] Dr. Saray Souza ALP [Catalytic activity/Vol] 78 U/L Normal 46-116 [facility] Comment on above: Performed By: #### T SH, CMP, HSTROPN, LIPA, KELLE #### [facility] [address] [place] [address] Dr. Saray Souza ALT [Catalytic activity/Vol] 24 U/L Normal 14-59 [place] Comment on above: Performed By: #### T SH, CMP, HSTROPN, LIPA, KELLE #### [facility] [address] [place] [address] Dr. Saray Souza Anion gap [Moles/Vol] 7.9 mmol/L Normal [facility] Comment on above: Performed By: #### T SH, CMP, HSTROPN, LIPA, KELLE #### [facility] [address] [place] [address] Dr. Saray Souza AST [Catalytic activity/Vol] 16 U/L Normal 15-37 The [facility] Comment on above: Performed By: #### T SH, CMP, HSTROPN, LIPA, KELLE #### [facility] [address] [place] [address] Dr. Saray Souza Bilirubin [Mass/Vol] 0.3 mg/dL Normal 0.2-1.0 The [facility] Comment on above: Performed By: #### T SH, CMP, HSTROPN, LIPA, KELLE #### [facility] [address] [place] [address] Dr. Saray Souza Calcium [Mass/Vol] 8.6 mg/dL Normal 8.5-10.1 The [facility] Comment on above: Performed By: #### T SH, CMP, HSTROPN, LIPA, KELLE #### [facility] [address] [address] [address] Saray Souza Chloride [Moles/Vol] 105 mmol/L Normal 98-107 The [facility] Comment on above: Performed By: #### T SH, CMP, HSTROPN, LIPA, KELLE #### [facility] [address] [address] [address] Saray Souza CO2 [Moles/Vol] 28.9 mmol/L Normal 21.0-32.0 The [facility] Comment on above: Performed By: #### T SH, CMP, HSTROPN, LIPA, KELLE #### [facility] [address] [place] [address] Dr. Saray Souza Creatinine [Mass/Vol] 0.67 mg/dL Normal 0.55-1.02 [place] Comment on above: Performed By: #### T SH, CMP, HSTROPN, LIPA, KELLE #### [facility] [address] [place] [address] Dr. Saray Souza EGFR-AF ANGOLAN >60 Normal >=60 The [facility] Comment on above: Performed By: #### T SH, CMP, HSTROPN, LIPA, KELLE #### [facility] [address] [place] [address] Dr. Saray Souza EGFR-NON AF ANGOLAN >60 Normal >=60 The [facility] Comment on above: Performed By: #### T SH, CMP, HSTROPN, LIPA, KELLE #### [facility] [address] [place] [address] Dr. Saray Souza Globulin (S) [Mass/Vol] 3.0 g/dL Normal The [facility] Comment on above: Performed By: #### T SH, CMP, HSTROPN, LIPA, KELLE #### [facility] [address] [place] [address] Dr. Sarya Souza Glucose [Mass/Vol] 97 mg/dL Normal 74-106 The [facility] Comment on above: Performed By: #### T SH, CMP, HSTROPN, LIPA, KELLE #### [facility] [address] [address] [address] Saray Souza Potassium [Moles/Vol] 3.8 mmol/L Normal 3.5-5.1 [place] Comment on above: Performed By: #### T SH, CMP, HSTROPN, LIPA, KELLE #### [facility] [address] [address] [address] Saray Souza Protein [Mass/Vol] 6.5 g/dL Normal 6.4-8.2 The [facility] Comment on above: Performed By: #### T SH, CMP, HSTROPN, LIPA, KELLE #### [facility] [address] [place] [address] Dr. Saray Souza Sodium [Moles/Vol] 138 mmol/L Normal 136-145 The [facility] Comment on above: Performed By: #### T SH, CMP, HSTROPN, LIPA, KELLE #### [facility] [address] [address] [address] Saray Souza Urea nitrogen [Mass/Vol] 13.0 mg/dL Normal 7.0-18.0 The [facility] Comment on above: Performed By: #### T SH, CMP, HSTROPN, LIPA, KELLE #### [facility] [address] [place] [address] Dr. Saray Souza Urea nitrogen/Creatinine [Mass ratio] 19.4 mg/mg Normal The [facility] Comment on above: Performed By: #### T SH, CMP, HSTROPN, LIPA, KELLE #### [facility] [address] [place] [address] Dr. Saray Souza TROPONIN, HIGH SENSITIVITYon 02-04-2023 HSTROP 4.0 pg/mL Normal 4.0-51.3 The [facility] Comment on above: Result Comment: CUT- OFF POINTS HAVE BEEN ESTABLISHED BASED ON THE FOURTH UNIVERSAL DEFINITIONS OF MYOCARDIAL INFARCTION. THE UPPER REFERENCE LIMIT (URL) OF TROPONIN, DEFINED THE 99TH PERCENTILE OF cTnI DISTRIBUTION IN A REFERENCE POPULATION, HAS BEEN CONFIRMED THE DECISION THRESHOLD FOR PR DIAGNOSIS. Performed By: #### T SH, CMP, HSTROPN, LIPA, KELLE #### [facility] [address] [place] [address] Dr. Saray Souza TSHon 02-04-2023 TSH 2.478 uIU/mL Normal 0.358-3.740 The [facility] Comment on above: Performed By: #### T SH, CMP, HSTROPN, LIPA, KELLE #### [facility] [address] [place] [address] Dr. Saray Souza URINE MICROSCOPIC ONLYon BACTERIA MODERATE Abnormal NONE SEEN The [facility] Comment on above: Performed By: #### C BC #### [facility] [address] [place] [address] Dr. Saray Souza Bacteria identified Cx Nom (U) INDICATED Normal The [facility] Comment on above: Performed By: #### C BC #### [facility] [address] [place] [address] Dr. Saray Souza CAST NONE SEEN Normal NONE SEEN [place] Comment on above: Performed By: #### C BC #### [facility] [address] [place] [address] Dr. Saray Souza Crystals LM Nom (Urine sed) NONE SEEN Normal NONE SEEN [place] Comment on above: Performed By: #### C BC #### [facility] [address] [place] [address] Dr. Saray Souza Epithelial cells LM Ql (Urine sed) MODERATE Abnormal NONE SEEN /RARE The [facility] Comment on above: Performed By: #### C BC #### [facility] [address] [place] [address] Dr. Saray Souza MUCOUS NONE SEEN Normal NONE SEEN The [facility] Comment on above: Performed By: #### C BC #### [facility] [address] [place] [address] Dr. Saray Souza RBC 5-10 Abnormal 0-2 The [facility] Comment on above: Performed By: #### C BC #### [facility] [address] [place] [address] Dr. Saray Souza WBC 10-20 Abnormal NONE SEEN The [facility] Comment on above: Performed By: #### C BC #### [facility] [address] [address] [address] Saray Souza Covid-19 PCR ([facility])on 09-24 SARS-CoV-2 (COVID-19) RNA DAYDAY+probe Ql (Unsp spec) Not detected Normal NOT DETECTED The [facility] Comment on above: Result Comment: When diagnostic [...] for this test is supported by the [place] of Health and Human Service's declaration that [...] By: #### C BC #### [facility] [address] [place] [address] Dr. Saray Souza INFLUENZA A AND B AGon 10-20 [facility] SEE BELOW Normal [place] Comment on above: Result Comment: Nega tive for Flu A protein angiten. Infection due to Flu A cannot be ruled out. Flu A angiten in the sample may be below the detection limit of the test. Performed By: #### C BC #### [facility] [address] [place] [address] Dr. Sar[facility] Normal [place] Comment on above: Result Comment: Nega tive for Flu B protein antigen. Infection due to Flu B cannot be ruled out. Flu B antigen in the sample may be below the detection limit of the test. Performed By: #### C BC #### [facility] [address] [place] [address] Dr. Saray Souza INFLUENZA A AG Negative Normal NEGATIVE SEE COMMENT The [facility] Comment on above: Performed By: #### C BC #### [facility] [address] [place] [address] Dr. Saray Souza INFLUENZA B AG Negative Normal NEGATIVE SEE COMMENT The [facility] Comment on above: Performed By: #### C BC #### [facility] [address] [place] [address] Dr. Saray Souza INTERNAL CONTROLS Within Normal Limits Normal Wi thin Normal Limits The [facility] Comment on above: Performed By: #### C BC #### [facility] [address] [place] [address] Dr. Saray Souza STREPT SCREENon 10-20-2022 STREP SCREEN A Positive Abnormal NEGATIVE The [facility] Comment on above: Performed By: #### C BC #### [facility] [address] [place] [address] Dr. Saray Souza XR SHOULDER RT INJon [...] Date: 2022-07-18 17:05 Normal The [facility] MRI SHOULDER RT WO CONon MRI SHOULDER [...] by: ADRIANA MENDEZ Date: 2022-07-10 10:10 Normal [place] XR ARTHRO SHLD RTon 07-10-20 22 XR [facility] RT EXAMINATION: XR ARTH RO SHLD RT [...] separate MRI arthrogram report. Electronically authenticated by: ADRIANAROSELINE MENDEZ Date: 2022-07-10 10:01 Normal The [facility] No Panel Informationon 03-18 Right Eye Reliability was good. Findings include normal observations. Left Eye Reliability was good. Findings include normal observations. Notes I personally reviewed the visual zaldivar performed by this patient on 03/18/22. The visual zaldivar are normal OU with good fixation. Francisco Ayers MD [facility] Radiology Study observation (narrative) [facility] Progress Noteson 03-18-2022 [employer] Authentication Interface Message Text Referred by Retina [...] edema - F/u with PCP (Melodie Hargrove [place]) regarding headaches-- will fax information to [phone] - Offered referral to neurology, patient prefers [...] her PCP. Francisco Ayers MD Normal The [employer] [facility] Cytologyon 12-20-2018 Cytology (NOTE) [id number] [facility] ANATOMIC PATHOLOGY [address] [place] [id number] GYNECOLOGIC CYTOLOGY REPORT Patient Name: ROSALIE FREEMAN V. MR#: [id number] Specimen #[id number] Source: 1: Cervical material, (ThinPrep vial, Imaging-assisted review) Clinical History Z01.419 Routine clinical program director exam without abnormal findings High Risk HPV DNA testing is requested if the diagnosis is ASC-US LMP: implant INTERPRETATION Cervical material, (ThinPrep vial, Imaging-assisted review): Specimen Adequacy: Satisfactory for evaluation. - Endocervical/transform ation zone component present. - Scant cellularity; predominantly blood. Descriptive Diagnosis: Negative for intraepithelial lesion or malignancy. Communications Senior Associate: KANCHAN Mendoza(ASCP) Electronically Signed Out donna/01/03/2019 Normal [facility] Comment on above: Performed By: #### P PPVP #### [address] [address] [employer] Grower: Vega Wilkerson MD Vital Signs Date Time Vital Sign Value Performing Clinician Facility 11-03-2024 13:25-0500 Body mass index (BMI) [Ratio] 46.4 kg/m2 [facility] Nurse [facility] 11-03-2024 13:25-0500 Body weight 146.69 kg [facility] Nurse [facility] 08-29-2024 10:53-0400 Body mass index (BMI) [Ratio] 45.89 kg/m2 Kelle BAE Work Phone: [facility] 08-29-2024 10:53-0400 Body weight 145.06 kg Kelle [place] PA Work Phone: [facility] 08-29-2024 10:53-0400 Diastolic blood pressure 70 mm[Hg] Kelle [place] PA Work Phone: [facility] 08-29-2024 10:53-0400 Systolic blood pressure 120 mm[Hg] Kelle Melany PA Work Phone: [facility] 07-26-2024 08:36-0400 Body height 177.8 cm Kelle [place] PA Work Phone: [facility] 07-26-2024 08:36-0400 Body mass index (BMI) [Ratio] 46.06 kg/m2 Kelle [place] PA Work Phone: [facility] 07-26-2024 08:36-0400 Body weight 145.6 kg Kelle [place] PA Work Phone: [facility] 07-26-2024 08:36-0400 Diastolic blood pressure 84 mm[Hg] Kelle [place] PA Work Phone: [facility] 07-26-2024 08:36-0400 Systolic blood pressure 130 mm[Hg] Kelle [place] PA Work Phone: [facility] 2024 09:04-0400 Blood Pressure Location JANNETH EMILIANA [facility] 2024 09:04-0400 Diastolic blood pressure 82 mm[Hg] JANNETH EMILIANA [facility] 2024 09:04-0400 Heart rate 74 /min JANNETH EMILIANA [facility] 2024 09:04-0400 Respiratory rate 16 /min JANNETH EMILIANA [facility] 2024 09:04-0400 Systolic blood pressure 125 mm[Hg] JANNETH EMILIANA [facility] 03-08-2024 14:09-0400 Blood Pressure Location Yonis NILL [facility] [place] 03-08-2024 14:09-0400 Diastolic blood pressure 84 mm[Hg] Yonis NILL [facility] [place] 03-08-2024 14:09-0400 Heart rate 76 /min Yonis NILL [facility] [place] 03-08-2024 14:09-0400 Respiratory rate 16 /min Yonis NILL [facility] [place] 03-08-2024 14:09-0400 Systolic blood pressure 118 mm[Hg] Yonis NILL [facility] [place] 01-19-2024 09:34-0500 Blood Pressure Location AJNNETH EMILIANA [facility] 01-19-2024 09:34-0500 Diastolic blood pressure 84 mm[Hg] JANNETH EMILIANA [facility] 01-19-2024 09:34-0500 Heart rate 80 /min JANNETH EMILIANA [facility] 01-19-2024 09:34-0500 Respiratory rate 16 /min JANNETH EMILIANA [facility] 01-19-2024 09:34-0500 Systolic blood pressure 132 mm[Hg] JANNETH EMILIANA [facility] 12-02-2023 08:40-0500 Body height 180.34 cm Taniya Brody Other [facility] Other 12-02-2023 08:40-0500 Body mass index (BMI) [Ratio] 45.1 kg/m2 Taniya Mary Grace Other [facility] Other 12-02-2023 08:40-0500 Body temperature 97.5 [degF] Taniya Mary Grace Other [facility] Other 12-02-2023 08:40-0500 Body weight 146.69 kg Taniya Mary Grace Other [facility] Other 12-02-2023 08:40-0500 Diastolic blood pressure 83 mm[Hg] Taniya Mary Grace Other [facility] Other 12-02-2023 08:40-0500 Respiratory rate 18 /min Taniya Mary Grace Other [facility] Other 12-02-2023 08:40-0500 SaO2% (BldA) [Mass fraction] 98 % Taniya Mary Grace Other [facility] Other 12-02-2023 08:40-0500 Systolic blood pressure 136 mm[Hg] Atniya Mary Grace Other [facility] Other 11-19-2021 15:30-0500 Body height 180.34 cm Nandini Pantoja Other [facility] Other 11-19-2021 15:30-0500 Body mass index (BMI) [Ratio] 41.56 kg/m2 Nandini Pantoja Other [facility] Other 11-19-2021 15:30-0500 Body weight 135.17 kg Nandini Pantoja Other [facility] Other 11-19-2021 15:30-0500 Diastolic blood pressure 76 mm[Hg] Nandini Pantoja Other [facility] [employer] Other 11-19-2021 15:30-0500 Systolic blood pressure 128 mm[Hg] Nandini Pantoja Other [facility] [employer] Other Encounters Encounter Date Encounter Type Care Provider Facility Start: 11-25-2024 ambulatory JANNETH HOPSON Facili ty:[facility] Start: 11-25-2024 End: 11-25-2024 Patient encounter procedure JANNETH HOPSON [facility] Start: 11-03-2024 End: 11-03-2024 Office outpatient visit 5 minutes [facility] Dante Nurse [facility] Comment on above: GA: 9w3d Start: 11-03-2024 End: 11-03-2024 ambulatory GRAHAM DANTE Not Available Start: 10-27-2024 End: 10-27-2024 ambulatory JANNETH HOPSON Facility:[facility] Start: 10-27-2024 End: 10-27-2024 Patient encounter procedure JANNETH HOPSON [facility] Start: 09-28-2024 End: 09-28-2024 Clinisync Result Encounter Graham Dante DO Work Phone: [facility] Unsolicited Start: 09-28-2024 End: 09-28-2024 Clinisync Result Encounter Graham Dante DO Work Phone: [facility] Unsolicited Start: 08-29-2024 End: 08-29-2024 Bamboo flowsheet Kelle Love PA Work Phone: [facility] Start: 08-29-2024 End: 08-29-2024 Bamboo flowsheet Kelle Melany PA Work Phone: [facility] Start: 08-29-2024 End: 08-29-2024 Office outpatient visit 15 minutes Kelle [place] PA Work Phone: [facility] Comment on above: Encounter for weight management Start: 08-29-2024 End: 08-29-2024 ambulatory KELLE MELANY Not Available Start: 07-26-2024 End: 07-26-2024 Bamboo flowsheet Kelle [place] PA Work Phone: [facility] Start: 07-26-2024 End: 07-26-2024 Bamboo flowsheet Kelle [place] PA Work Phone: [facility] Start: 07-26-2024 End: 07-26-2024 Office outpatient visit 5 minutes Kelle Love PA Work Phone: [facility] Comment on above: Encounter for weight management Start: 07-26-2024 End: 07-26-2024 ambulatory KELLE MELANY Not Available Start: 06-27-2024 End: 06-27-2024 ambulatory GRAHAM DANTE Not Available Start: 05-30-2024 End: 05-30-2024 ambulatory GRAHAM DANTE Not Available Start: 2024 End: 2024 ambulatory Yonis CARNEY Facility:[facility] Start: 2024 End: 2024 Patient encounter procedure [facility] Start: 04-27-2024 End: 04-27-2024 ambulatory MD Melodie Hargrove Work Phone: [facility] Work Phone: Start: 04-27-2024 End: 04-27-2024 Departed Referred MD Melodie Hargrove Work Phone: [facility] Start: 04-27-2024 End: 04-27-2024 ambulatory Yonis CARNEY Facility:[id number] Start: 03-08-2024 End: 03-08-2024 ambulatory Yonis FORDL Facility: [facility] Start: 03-08-2024 End: 03-08-2024 Patient encounter procedure Yonis FORDL [facility] [place] Start: 02-09-2024 End: 02-09-2024 ambulatory Dieter SALMON [facility] Start: 02-09-2024 End: 02-09-2024 Patient encounter procedure Dieter SALMON [facility] Start: 01-19-2024 End: 01-19-2024 ambulatory JANNETH HOPSON Facility[facility] Start: 01-19-2024 End: 01-19-2024 Lab Drop off JANNETH HOPSON [facility] Start: 01-19-2024 End: 01-19-2024 ambulatory JANNETH HOPSON Facility:[facility] Start: 01-19-2024 End: 01-19-2024 Patient encounter procedure JANNETH HOPSON [facility] [place] [facility] Start: 12-31-2023 ambulatory Yonis CARNEY Facility:[facility] Start: 12-17-2023 End: 12-17-2023 ambulatory Taniya Mary Grace Other [facility] Other Start: 12-17-2023 Office outpatient visit 15 minutes Taniya Mary Grace [facility] Start: 12-07-2023 End: 12-07-2023 ambulatory Taniya Mary Grace Other [facility] Other Start: 12-07-2023 Telephone encounter Taniya Mary Grace [facility] Start: 12-02-2023 End: 12-02-2023 ambulatory Taniya Mary Grace Other [facility] Other Start: 12-02-2023 Office outpatient ne w 30 minutes Taniya Brody [facility] Start: 04-17-2023 End: 04-17-2023 ambulatory SALMA CHIKI . Facility:[facility] Start: 04-06-2023 End: 04-07-[address] MELODIE HARGROVE . Facility:[facility] Start: 04-04-2023 Encounter for genera l adult medical examination without abnormal findings DR MELODIE HARGROVE . The [facility] Start: 04-03-2023 End: 04-04-[address] MELODIE [...] Start: 03-18-2022 End: 03-18-2022 ambulatory UNKNOWN PROVIDER [facility] Start: 11-19-2021 End: 11-19-2021 ambulatory Nandini Patnoja Other [facility] Other Start: 11-19-2021 Office outpatient ne w 30 minutes Nandini Pantoja [facility] Start: 12-20-2018 End: 12-21-2018 Patient encounter procedure ANDRESSA ESCALANTE [facility] Procedures Date Procedure Procedure Detail Performing Clinician Start: 11-03-2024 End: 11-03-2024 Urnls dip stick/tablet rgnt non-auto w/o micrscp Graham Dante DO Work Phone: Start: 09-28-2024 ALL CBC WITH AUTO DIFF Graham Dante DO Work Phone: Start: 04-29-2024 Colonoscopy JANNETH MCKEON Start: 02-09-2024 [...] Shingles (RZV) Vaccine (1 of 2) [facility] Start: 07-09-2028 Screening for malign ant neoplasm of cervix [facility] Start: 12-05-2024 End: 12-05-2024 Patient encounter procedure 12/05/2024 3:40 PM EST Routine [facility] [address] [place] [phone] Graham Howell DO [address] [place], [place] [id number] [facility] Start: 11-28-2024 End: 11-28-2024 Patient encounter procedure 11/28/2024 9:30 AM EST Office Visit [facility] [address] [place] [phone] Kelle Love PA [address] [place], [place] [id number] [facility] Start: 11-03-2024 End: 11-03-2025 ABO/Rh ABO/Rh Lab Routine Missed menses , unspecified gestational age Expected: 11/03/2024 (Approximate), Expires: 11/03/2025 [facility] Comment on above: Expected: 11/03/2024 (Approximate), Expires: 11/03/2025 Start: 11-03-2024 End: 11-03-2025 Blood type and Indirect antibody screen panel - Blood Type and screen Lab Routine Missed menses , unspecified gestational age Expected: 11/03/2024 (Approximate), Expires: 11/03/2025 [facility] Work Phone: Comment on above: Expected: 11/03/2024 (Approximate), Expires: 11/03/2025 Start: 11-03-2024 End: 11-03-2025 Drugs of abuse panel - Urine by Screen method Rapid drug screen, urine Lab Routine , unspecified gestational age Encounter for supervision of normal first in first trimester Expected: 11/03/2024 (Approximate), Expires: 11/03/2025 [facility] Comment on above: Expected: 11/03/2024 (Approximate), Expires: 11/03/2025 Start: 11-03-2024 End: 11-03-2024 ambulatory 11/03/2024 1:00 PM EST Initial [facility] [address] [place] [phone] [facility] Start: 11-03-2024 End: 11-03-2024 Professional / ancillary services management 11/03/2024 12:30 PM EST Ancillary Procedure [facility] [address] [place] [phone] [facility] Start: 08-29-2024 End: 08-29-2024 Patient encounter procedure 08/29/2024 10:50 AM EDT Office Visit [facility] [address] [place] [address] [place] [phone] Kelle Love PA [address] [place] [address] [place], [place] [id number] Arrived [facility] Comment on above: Arrived Start: 07-26-2024 End: 07-26-2024 Patient encounter procedure 07/26/2024 8:30 AM EDT Office Visit [facility] [address] [place] [address] [place] [phone] Kelle Love, PA [address] [place] [address] [place] [address] Arrived [facility] Comment on above: Arrived Start: 07-24-2024 Influenza vaccination Influenza Vacc ine (#1) [facility] Start: 2014 Screening for malign ant neoplasm of cervix Pap Smear [facility] Start: 2011 Hepatitis C screening Hepatitis C An tibody [facility] Start: 2011 Tetanus + diphtheria + acellular pertussis vaccine (product) Tdap Booster [facility] Start: 2008 HIV screening HIV Test [facility] Start: 1998 COVID-19 Vaccine (1) COVID-19 Vaccin e (1) [facility] Bacteria identified in Urine by Culture Urine culture Microbiology Routine Missed menses Ordered: 11/03/2024 [facility] Comment on above: Ordered: 11/03/2024 CBC W Auto Different ial panel - Blood CBC and differential Lab Routine Missed menses , unspecified gestational age Ordered: 11/03/2024 [facility] Comment on above: Ordered: 11/03/2024 Hemoglobin A1c/Hemoglobin.total in Blood Hemoglobin A1c Lab Routine Missed menses , unspecified gestational age Ordered: 11/03/2024 [facility] Comment on above: Ordered: 11/03/2024 Hepatitis B virus surface Ag [Presence] in Serum or Plasma by Immunoassay Hepatitis B surface antigen Lab Routine Missed menses , unspecified gestational age Ordered: 11/03/2024 [facility] Comment on above: Ordered: 11/03/2024 Hepatitis C virus Ab [Presence] in Serum or Plasma by Immunoassay Hepatitis C antibody Lab Routine Missed menses , unspecified gestational age Ordered: 11/03/2024 [facility] Comment on above: Ordered: 11/03/2024 HIV-1/HIV-2 antigen/antibody combination immunoassay HIV-1 and HIV-2 antibodies Lab Routine Missed menses , unspecified gestational age Ordered: 11/03/2024 [facility] Comment on above: Ordered: 11/03/2024 Reagin Ab [Presence] in Serum by RPR RPR Lab Routine Missed menses , unspecified gestational age Ordered: 11/03/2024 [facility] Comment on above: Ordered: 11/03/2024 Rubella antibody, IgG Rubella an tibody, IgG Lab Routine Missed menses , unspecified gestational age Ordered: 11/03/2024 [facility] Comment on above: Ordered: 11/03/2024 Immunizations Immunization Date Immunization Notes Care Provider Marino lopez 10-28-2022 influenza virus vaccine, unspecified formulation JANNETH HOPSON [facility] 04-15-2021 SARS-CoV-2 (COVID-19 ) mRNA-2059 vaccine JANNETH HOPSON [facility] [place] 03-18-2021 SARS-CoV-2 (COVID-19 ) [id number] vaccine JANNETH HOPSON [facility] [place] 03-21-2014 influenza virus vaccine, unspecified formulation Estella Guerrero MD Work Phone: [facility] Payers Date Payer Category Payer Medicaid [employer] [place] [id number] 2017-Present [address] [place] [address] [id number] 2017 Medicaid (Managed Care) [facility] MEDICA[facility] [id number] 2017 Unknown [facility] [employer] [employer] [id number] 2017-Present [id number] 1993 Unknown [id number] 2.16.840.1.822762.3.579.2. 173 1993 Unknown [id number] 2.16.840.1.961151.3.579.2. 732 1993 Unknown [id number] 2.16.840.1.837255.3.579.2. 593 1993 Unknown [id number] 2.16.840.1.840904.3.579.2. 593 1993 Unknown [id number] 2.16.840.1.026001.3.579.2. 593 1993 Unknown [id number] 2.16.840.1.041896.3.579.2. 593 1993 Unknown [id number] 2.16.840.1.840939.3.579.2. 593 1993 Unknown [id number] 2.16.840.1.180415.3.579.2. 593 1993 Unknown [id number] 2.16.840.1.366263.3.579.2. 593 1993 Unknown [id number] 2.16.840.1.780873.3.579.2. 593 1993 Unknown [id number] 2.16.840.1.457119.3.579.2. 593 1993 Unknown [id number] 2.16.840.1.784973.3.579.2. 593 1993 Unknown [id number] 2.16.840.1.468716.3.579.2. 593 1993 Unknown [id number] 2.16.840.1.568934.3.579.2. 593 1993 Unknown [id number] 2.16.840.1.805195.3.579.2. 1259 1993 Unknown [id number] 2.16.840.1.964274.3.579.2. 1259 1993 Unknown [id number] 2.16.840.1.828002.3.579.2. 1259 1993 Unknown [id number] 2.16.840.1.683390.3.579.2. 1259 1993 Unknown [id number] 2.16.840.1.966125.3.579.2. 1259 1993 Unknown [id number] 2.16.840.1.925698.3.579.2. 727 1993 Unknown [id number] 2.16.840.1.674344.3.579.2. 727 1993 Unknown [id number] 2.16.840.1.113823.3.579.2. 727 1993 Unknown [id number] 2.16.840.1.241869.3.579.2. 727 1993 Unknown [id number] 2.16.840.1.055261.3.579.2. 727 1993 Unknown [id number] 2.16.840.1.523525.3.579.2. 727 1993 Unknown [id number] 2.16.840.1.919411.3.579.2. 727 1993 Unknown [id number] 2.16.840.1.554814.3.579.2. 727 1993 Unknown [id number] 2.16.840.1.829421.3.579.2. 727 1959 Unknown [id number] Social History Date Type Detail Facility Tobacco smoking status [facility] Tobacco smoking consumption unknown [place] [facility] Other Start: 1995 [facility] Start: 05-23-2024 Sex Assigned At F [facility] Start: 01-19-2024 End: 2024 Tobacco smoking status Never smoked tobacco (finding) [facility] Tobacco smoking status Never [facility] Start: 1995 Sex Assigned At Female F [facility] Start: 06-27-2024 End: 07-26-2024 Alcoholic beverage intake Current drinker of alcohol (finding) [facility] Start: 05-23-2024 History of Social function [facility] Start: 05-03-2023 Alcohol Comment 1-2 drinks les s than monthly in the past year, Caffeine intake: 2-3 cups per day [facility] Start: 09-12-2024 [facility] Functional Status Date Assessment Result Facility 2024 Functional Status N/A [facility] 03-08-2024 Functional Status N/A [facility] [place] 01-19-2024 Functional Status N/A [facility] Clinical Notes 03-18-2022 to 11-03-2024 Aleida Colon LPN - 11/03/2024 1:00 PM KATHIA Oconnell - 08/29/2024 10:50 AM EDTDianna Jeffrey - 07/26/2024 8:30 AM EDT Note Date & Type Note Facility 11-03-2024 History of Present illness Narrative Reason for Appointment: Patient ID: Rosalie Freeman is a 29 y.o. female who presents for Amenorrhea Patient presents today for a Nurse OB Intake appointment. Patient is 9w3d with a Estimated Date of Delivery: 06/05/25 OB History Para Term AB Living 2 1 1 1 SAB IAB Ectopic Multiple Live Births # Outcome Date GA Lbr Noman/2nd Weight Sex Type Anes PTL Lv 2 Current 1 Term 39w6d 7 lb 2.5 oz M Vag-Spont Current Medications: has a current medication list which includes the following prescription(s): fexofenadine odt, metformin xr, sertraline, and sulfamethoxazole-trimethoprim. Medical History: Active Ambulatory Problems Diagnosis Date Noted LPRD [...] IBS (irritable bowel syndrome) Plantar fasciitis, bilateral Family History Problem Relation Name Age of Onset Hypertension Mother Hypertension Father Social History Tobacco Use Smoking status: Never Smokeless tobacco: Not on file Substance Use Topics Alcohol use: Yes Comment: 1-2 drinks less than monthly in the past year, Caffeine intake: 2-3 cups per day Drug use: Not on file Past Surgical History: Procedure Laterality Date OOPHORECTOMY Left Allergies Allergen Reactions Wound Dressings Other Reaction(s): hives Vitals: Estimated body mass index is 45.89 kg/m as calculated from the following: Height as of 07/26/24: 5' 10 . Weight as of 08/29/24: 319 lb 12.8 oz. BP: Patient's last menstrual period was 08/29/2024. Assessment/Plan Diagnoses and all orders for this visit: Missed menses - Type and screen; Future - ABO/Rh; Future - CBC and differential - Hemoglobin A1c - RPR - Rubella antibody, IgG - Hepatitis B surface antigen - Hepatitis C antibody - HIV-1 and HIV-2 antibodies - Urine culture - POCT , urine manually resulted - POCT urinalysis dipstick manually resulted , unspecified gestational age - Type and screen; Future - ABO/Rh; Future - CBC and differential - Hemoglobin A1c - RPR - Rubella antibody, IgG - Hepatitis B surface antigen - Hepatitis C antibody - HIV-1 and HIV-2 antibodies - Rapid drug screen, urine; Future Encounter for supervision of normal first in first trimester - Rapid drug screen, urine; Future Nurse Note: OB Intake: Patient presents today for first OB visit. Patients history has been reviewed in great detail including any potential risks. Patient signed consent forms and patient desires testing in both trimesters. Patient currently has no complaints and has been advised to drink 6-8 glasses of water a day, eat no raw or undercooked meat, and stay away from [facility]. Patient has also been advised to not change litter boxes and eat 6 small meals a day. Patient has been consulted regarding the do's and don'ts of . Patient was given labs and all questions and concerns were answered. Follow Up: Patient is to return in 4 weeks for routine OB appointment. Follow Up: Patient is to have labs drawn at directed and return to office for initial OB appointment with provider. Patient may call office as needed with any concerns or questions. Nurse Visit Completed by: Aleida Colon LPN documented in this encounter [facility] 08-29-2024 History of Present illness Narrative Reason [...] nursing note reviewed. Exam conducted with a order entry present. Vitals: Estimated body mass index is [...] of: KATHIA Ledezma documented in this encounter [facility] 07-26-2024 History of Present illness Narrative Reason for Appointment: Patient ID: Rosalie Freeman is a 29 y.o. female who presents for Weight Management Patient presents today for a weight management consultation. Patient has been prescribed Adipex and she is here for her 2nd prescription. Today's Vitals: Estimated body mass index is 46.06 kg/m as calculated from the following: Height as of this encounter: 5' 10 . Weight as of this encounter: 321 lb. Previous Weight/BMI: Wt Readings from Last 2 Encounters: 07/26/24 321 lb 06/27/24 328 lb BMI Readings from Last 2 Encounters: 07/26/24 46.06 kg/m 06/27/24 47.06 kg/m Allergies as of 07/26/2024 (No Known Allergies) Past Medical History: Diagnosis Date Acne Cardiac murmur Depression (CMS/[facility]) Encounter for IUD insertion 01/02/2021 Gastritis IBS (irritable bowel syndrome) Plantar fasciitis, bilateral Scoliosis Past Surgical History: Procedure Laterality Date OOPHORECTOMY Left Assessment/Plan Encounter Diagnosis Name Primary? Encounter for weight management Adipex: Patient presents today for 2nd Adipex prescription. Patients weight and blood pressure has been captured and discussed with the patient. I have discussed/reiterated the importance of keeping a food journal, proper nutrition/diet, and exercise regimen while taking Adipex. Patient verbalized understanding and was given a printed prescription signed by provider to take to their local pharmacy. Follow Up: Patient is to return to the office in 1 month for further evaluation to assess patient progress. Weight and blood pressure will need to be obtained in order for patient to receive 3rd prescription. Documented by: Dianna Jeffrey on behalf of KATHIA Ledezma documented in this encounter [facility] 2024 Hospital Discharge instructions Patient Education 2024 [...] medicine. Follow these instructions at home: Take fjow-lrq-ktygbaj and prescription medicines as told by your [...] provider. Document Revised: 12/24/2020 Document Reviewed: 08/28/2020 [employer] Patient Education 2022 [employer]. Follow Up Care 01/19/2024 10:50:20 With:JANNETH HOPSON PA-C, URL Address: [address] [place] [address] [phone] When: Unknown [facility] 03-10-2024 Note Chief Complaint consultation for [...] - Denies A (more content not included)... [facility] Comment [...] Address: [facility] [address] [place] [address]- Business (1) When:06/10/2024 08:33:15 Comments:With Deepthi Hopson [facility] 02-09-2024 Note [id number] [facility] 02-09-2024 Note Custom Cystoscopy ? [...] you have a fever over 100 degrees. [facility] 01-19-2024 Hospital Discharge instructions Patient Education 01/19/2024 [...] including vitamins, herbs, eye drops, creams, and ichr-quc-fznogtx medicines. Any problems you or family members [...] health care provider tells you to. ?Taking pfqv-ctv-iskgkjh medicines, vitamins, herbs, and supplements. General instructions [...] provider. Document Revised: 02/19/2023 Document Reviewed: 02/19/2023 [employer] Patient Education 2022 [employer]. 01/19/2024 10:32:14 Urinary Tract Infection, Adult Urinary [...] Treatment for this condition includes: Antibiotic medicine. Cyxp-tlk-huxbcsc medicines to treat discomfort. Drinking enough water [...] Follow these instructions at home: Medicines Take limf-icv-aywkgkp and prescription medicines only as told by [...] provider. Document Revised: 06/21/2021 Document Reviewed: 06/21/2021 [employer] Patient Education 2022 [employer]. Follow Up Care 01/08/2024 10:24:51 With:JANNETH HOPSON PA-C, URL Address: [address] [place] [address] When: Unknown [facility] 01-19-2024 Note Chief Complaint Referral *Frequent [...] E Coli Tx'd w/ Cefdinir 300mg BID [id number] ÁLVARO 01/01/24 *No acute abnormality CTa wo/w [...] yes avoids baths/hot tubs yes avoids scented [employer] products yes urinates after sexual activity yes [...] and benefits for (more content not included)... [facility] Comment [...] her to avoid NSAIDs or any other xcwc-uwi-vrssatl medication or high-protein supplements Nov, Renal lesion [...] and no personal patient information was compromised. [facility] Other 01-10-2024 Evaluation note* Encounter Date Diagnosis [...] her to avoid NSAIDs or any other dttf-idq-mmbswqg medication or high-protein supplements Nov, Renal lesion (ICD-10 - N28.9) She had a renal lesion of indeterminate nature on the renal ultrasound. She is ordered to have a CAT scan with contrast by the PCP. Will follow the report once done. Nov, IBS (irritable bowel syndrome) (ICD-10 - K58.9) Continue to follow with PCP for IBS management. [facility] Other 06-21-2022 NotePROCEDURE: XR SHOULDER RT 2V or > COMPARISON: None. HISTORY: Pain of right shoulder joint FINDINGS: BONES:No fracture, acute abnormality, or significant arthropathy. SOFT TISSUES:Negative. No visible soft tissue swelling. EFFUSION:None visible. OTHER: Negative. IMPRESSION: Normal examination. Electronically authenticated by: NANDINI MAYER Date: 2022-05-13 08:41[place]04-26-2022 History of Present illness Narrative* Francisco Ayers [...] Hair) regarding headaches-- will fax information to [phone] - Offered referral to neurology, patient prefers [...] papilledema. Francisco Ayers MD documented in this [id number] History of Present illness Narrative* Francisco Ayers [...] Hair) regarding headaches-- will fax information to [phone] - Offered referral to neurology, patient prefers [...] Appointments Appointment Date:02/02/2024 11:30:00 AM Scheduled Provider: Location:[facility] Appointment Type:Urology CALL PAT FT Appointment Date:02/09/2024 08:15:00 AM Scheduled Provider: Location:[facility] Appointment Type:Urology FT Appointment Date:2024 08:20:00 AM Scheduled Provider:JANNETH HOPSON PA-C Location:[facility] Appointment Type:URO Office Visit [facility] evaluation + Plan note Future Appointments Appointment Date:02/02/2024 11:30:00 AM Scheduled Provider: Location:[facility] Appointment Type:Urology CALL PAT FT Appointment Date:02/09/2024 08:15:00 AM Scheduled Provider: Location:[facility] Appointment Type:Urology FT Appointment Date:2024 08:20:00 AM Scheduled Provider:JANNETH HOPSON PA-C Location:[facility] Appointment Type:URO Office Visit Diagnostic Tests Pending * [facility] Future Appointments Appointment Date:2024 08:20:00 AM Scheduled Provider:JANNETH HOPSON PA-C Location:[facility] Appointment Type[facility] Future Appointments Appointment Date:11/25/2024 08:20:00 AM Scheduled Provider:JANNETH HOPSON PA-C Location:[facility] Appointment Type:URO Office Visit [facility] evaluation note* Diagnosis Chronic nonintractable headache, unspecified headache type- [facility] Diagnosis Chronic nonintractable headache, unspecified headache type- Primary [facility] Other Evaluation noteNo [facility]Nos[facility] Other Evaluation noteNo assessment information available [facility] Work Phone: Evaluation note* Diagnosis Encounter for weight management [facility] Diagnosis Missed menses , unspecified gestational age Encounter for supervision of normal first in first trimester documented in this encounter [facility]* Diagnosis Encounter for weight management documented [facility] this encounter [facility] Narrative - ReportedNotrinket Other History general Narrative - Reported* Type Description Date Medical History irritable bowel syndrome Medical History depression Medical History PROTEINURIA, UNSPECIFIED Medical History HYPOGLYCEMIA Medical History ARTHRALGIA Medical History SHINGLES Medical History ADHD Surgical History ovary removed 2014 Surgical History cholecystectomy Surgical History bilateral fasciitis repair Surgical History bilateral bone spur removal Hospitalization History 1 child [facility] Other Hospital course Narrative No data available for this section [facility] Hospital Discharge instructions No data available for this section [facility] No data available for this section [facility] Summary Purpose Family History Relationship Condition [...] section and content) DATE CREATED AUTHOR [facility] DATE CREATED AUTHOR AUTHOR'S ORGANIZ ATION 03/20/2022 [facility] DATE CREATED AUTHOR AUTHOR'S ORGANIZ ATION 04/18/2023 [facility] DATE CREATED AUTHOR AUTHOR'S ORGANIZ ATION 04/30/2024 [facility] DATE CREATED AUTHOR AUTHOR'S ORGANIZ ATION 07/26/2024 [facility] EPIC DATE CREATED AUTHOR AUTHOR'S ORGANIZ ATION 11/06/2024 [facility] EP[facility] DATE CREATED AUTHOR AUTHOR'S ORGANIZ ATION 11/24/2024 [facility] Reason for Visit (unrecogniz ed section and content) Reason Comments Optic nerve edema Reason Comments encounter for weight loss Adipex #3 Reason Comments Amenorrhea Reason Comments Weight Management Patient Care team informatio n (unrecognized section and content) Personnel Name: Melodie Hargrove MD Address: Address: [address] [place] [address] Team Status: Active Member Role Status Dates Melodie Hargrove MD Primary Care Provider Active Team Status: Inactive Member Role Status Dates Melodie Hargrove MD Primary Care Provider Active Start: April 27, 2024 End: April 27, 2024 Yonis Carney MD FACS Attending Provider Active Start: April 27, 2024 End: April 27, 2024 Poultry Hanger Relationship Specialty Start Date End Date Melodie Hargrove MD [address] [facility] [place] [address] PCP - General Family Medicine 05/11/23 Poultry Hanger Relationship Specialty Start Date End Date Melodie Hargrove MD [address] [facility] [place] [address] PCP - General Family Medicine 05/11/23 Poultry Hanger Relationship Specialty Start Date End Date Melodie Hargrove MD [address] [facility] [place] [address] PCP - General Family Medicine 05/11/23 Poultry Hanger Relationship Specialty Start Date End Date Melodie Hargrove MD [address] [facility] [place] [address] PCP - General Family Medicine 05/11/23 Poultry Hanger Relationship Specialty Start Date End Date Melodie Hargrove MD [address] [facility] [place] [address] PCP - General Family Medicine 05/11/23 Goals [...] BE BASED ON THE PRIMARY CLINICAL RECORDS. [facility]. provides no warranty or guarantee of the accuracy or completeness of information in this document.
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
[2024-12-02 13:57] VITALS: BP 140/80; O2SAT 98
== END 2024-12-02 13:58 | disposition home or self-care (01) ==
PROVIDERS: Emergency Provider Emergency Medicine; PCP Family Medicine
DX: Z04.1 Encounter for examination and observation following transport accident (principal); Z90.49 Acquired absence of other specified parts of digestive tract
CPT/HCPCS: 76801; 99284

== ENCOUNTER 2024-12-23 09:48 | Outpatient (OUT) | payer OTHER, SELFPAY ==
--- OUTSIDE RECORDS SUMMARY | 2024-12-23 09:59 | XMS_ITS | CCD ---
Author Organization [facility] Care Team Providers Care E Commerce Specialist Name Role Phone Unavailable Primary Care Provider Unavailabl e PROVIDER, [...] Unavailable HOY ., DR SEWELL Admkaty Unavailable DEVENS, DR NANDINI Stafford Consulting Unavailable HOY ., [...] Care Unavailable Mary Grace, Taniya Unavailable Shashi Ashton Primary Care Physician MD Shashi Ashton Primary Care Provider [phone] MD Yonis Miranda Attending Provider Shashi Ashton Primary Care Unavailable Ruth, Yonis Mckenzie Attending Unavailable Ruth, Yonis Mckenzie Admitting Unavailable GRAHAM HOWELL Attending Unavailable GRAHAM HOWELL Attending Unavailable KELLE MOSLEY Attending Unavailable Shashi Ashton MD Primary Care Provider [phone] Shashi Ashton MD Primary Care Provider SHASHI ASHTON Primary Care Unavailable NIC ESTEVEZ Attending Unavailable KELLE MOSLEY Attending Unavailable GRAHAM HOWELL Attending Unavailable NILL, Yonis Mckenzie Attending Unavailable JANNETH SMITH Attending Unavailable JANNETH SMITH Attending Unavailable JANNETH SMITH Attending Unavailable Shashi Ashton Referring Unavailable LUIS, JANNETH Barreto Attending Unavailable REMY, Dieter R Admitting Unavailable REYM, Dieter R Attending Unavailable REMY, Dieter R Referring Unavailable LUIS, JANNETH E Admitting Unavailable LUIS, JANNETH E Attending Unavailable NILL, Yonis R Attending Unavailable NILL, Yonis Mckenzie Attending Unavailable Shashi Ashton Referring Unavailable Allergies Allergy Classification Reported Allergen(s) Allergy Type Date of Onset Reaction(s) Facility (1 source) [facility]; Translations: [[facility]] Propensity to adverse reactions (disorder) 0 [facility] Repository (3 sources) Kerlix Super Sponge/Saline Med Drug allergy [employer] Other (4 sources) Wound Dressings Drug Allergy [facility] (1 source) No Known Medication Allergies; Translations: [No Known Medication Allergies] Propensity to adverse reactions (disorder) [facility] Repository Medications Current Medications Medication Drug [...] EVERY DAY Oral for 30 Days Active linaclotide 0.145 mg oral capsule (1 source) Guanylate Cyclase-C Agonist take 1 capsule by mouth once daily before breakfast linaclotide (LINZESS) 145 MCG capsule Take 145 mcg by mouth every morning (before breakfast) Active methylphenidate hydrochloride 20 mg oral tablet (2 sources) Central Nervous System Stimulant Start: End: methylphenidate (Ritalin) 20 MG tablet 1 (one) time each day at the same time 06/14/2024 07/26/2024 Discontinued ondansetron 4 mg disintegrating oral tablet (7 sources) Serotonin-3 Receptor Antagonist Start: ondansetron 4 mg Dis Tab Refills(s) 0 [...] 08/25/2024 Active sertraline 100 mg oral tablet (20 sources) Serotonin Reuptake Inhibitor Start: 09-19-2021 take 1 tablet by mouth once daily Zoloft 100 mg Tab 100 mg = 1 tab(s), Oral, Daily, Refills(s) 0 Start Date: 09/19/21 Status: Ordered sulfamethoxazole 400 mg / trimethoprim 80 mg oral tablet (18 sources) Dihydrofolate Reductase Inhibitor Antibacterial, Sulfonamide Antimicrobial Start: 07-26-2024 Bactrim 400 mg-80 mg Tab 1 tab(s), Oral, Daily UTI prevention, 30 tab(s), Refill(s) 3, [facility]/pharmacy #[id number], 180, cm, 05/10/24 9:08:00 EDT, Height/Length Dosing, 150, kg, 05/10/24 9:08:00 EDT, Weight Dosing Start Date: 07/26/24 Status: Ordered Start: 01-19-2024 Bactrim 400 mg -80 mg Tab 1 tab(s), Oral, Daily UTI prevention, 30 tab(s), Refill(s) 3, [facility]/pharmacy #[id number], 180, cm, 01/19/24 9:37:00 EST, Height/Length Dosing, 145.5, kg, 01/19/24 9:37:00 EST, Weight Dosing Start Date: 01/19/24 Status: Ordered Start: 04-01-2023 End: 12-05-2024 take 1 tablet by mouth once in the morning, then take 1 tablet by mouth once at bedtime sulfamethoxazole-trimethoprim (Bactrim DS) 800-160 MG per tablet Take 1 tablet by mouth in the morning and 1 tablet before bedtime. 04/01/2023 12/05/2024 Discontinued valACYclovir 500 mg oral tablet (2 sources) Herpesvirus Nucleoside Analog DNA Polymerase Inhibitor, Herpes Simplex Virus Nucleoside Analog DNA Polymerase Inhibitor, Herpes Zoster Virus Nucleoside Analog DNA Polymerase Inhibitor Start: 12-05-2024 End: 01-04-2025 take 1 tablet by mouth once daily valACYclovir (Valtrex) 500 MG tablet Indications: Herpes zoster without complication Take 1 tablet (500 mg) by mouth Daily for 30 doses 30 tablet 6 12/05/2024 01/04/2025 Active Completed/Discontinued Medications Medication Drug Class(es) Dates Sig (Normalized) Sig (Original) acyclovir 400 mg oral tablet (3 sources) Herpesvirus Nucleoside Analog DNA Polymerase Inhibitor, Herpes Simplex Virus Nucleoside Analog DNA Polymerase Inhibitor, Herpes Zoster Virus Nucleoside Analog DNA Polymerase Inhibitor Start: 11-21-2024 End: 12-21-2024 take 1 tablet by mouth in the morning acyclovir (Zovirax) 400 MG tablet Indications: PHN (postherpetic neuralgia) (CMS/[facility]) , History of shingles Take 1 tablet (400 mg) by mouth in the morning and 1 tablet (400 mg) before bedtime. 60 tablet 11 11/21/2024 12/05/2024 Discontinued cephalexin 500 mg oral capsule (4 sources) Cephalosporin Antibacterial Start: 01-19-2024 Keflex 500 mg Cap 500 mg = 1 cap(s), Oral, As Directed, Pt to take 1 tab the day before procedure and the 2nd tab the day of procedure once completed., # 2 cap(s), Refills(s) 0, Pharmacy: [facility]/pharmacy #[id number], 180, cm, 01/19/24 9:37:00 EST, Height/Length Dosing, 145.5, kg, 01/19/24 9:37:00 EST, Weight Dosing Start Date: 01/19/24 Status: Ordered fexofenadine hydrochloride 30 mg disintegrating oral tablet (10 sources) Histamine-1 Receptor Antagonist End: 12-05-2024 take 1 tablet by mouth once daily fexofenadine ODT (Susan ODT) 30 MG disintegrating tablet Take 30 mg by mouth Daily 12/05/2024 Discontinued levonorgestrel 0.266263 mg/hr intrauterine system (8 sources) Progestin, Progestin-containin [...] 1 tablet Orally Once a day Active 24 hr metFORMIN hydrochloride 500 mg extended release oral tablet (10 sources) Biguanide Start: 05-30-2024 End: 12-05-2024 take 1 tablet by mouth every twenty-four hours at mealtime metFORMIN XR (Glucophage-XR) 500 MG 24 hr tablet Indications: Pelvic pain in female , PCOS (polycystic ovarian syndrome) Take 1 tablet (500 mg) by mouth in the evening. Take with meals Do not crush, chew, or split. 30 tablet 11 05/30/2024 12/05/2024 Discontinued 50 ml sodium chloride 9 mg/ml injection (1 source) Start: 12-02-2024 End: 12-02-2024 1,000 mL, IntraVENous, at 1,000 mL/hr, Administer over 1 Hours, ONCE, On Thu12/02/24 at 2000, For 1 dose Problems Active Problems Problem Classification Problem Date Documented Da te Episodic/Chronic Abdominal pain (20 sources) Epigastric pain; Translations: [Right upper quadrant pain] Onset: 3 09-20-2021 Episodic Anxiety disorders (18 sources) Anxiety; Translations: [Anxiety disorder, unspecified] Onset: [...] [Irregular menstruation, unspecified] 11-03-2024 Chronic Mood disorders (18 sources) Mood disorder; Translations: [Unspecified mood [affective] disorder] Onset: 3 09-19-2021 Chronic Nausea and vomiting (1 source) Nausea; Translations: [NAUSEA] Onset: 3 Episodic Other acquired deformities (18 sources) Scoliosis deformity of spine; Translations: [Scoliosis, unspecified] Onset: 3 09-20-2021 Chronic Other aftercare (1 source) Other medical support specialist (current) drug therapy; Translations: [OTH BIG DATA ENGINEER CURRENT DRUG THERAPY] Onset: 3 Episodic Other [...] 03-04-2024 Chronic Other and delivery including normal (15 sources) Vaginal delivery; Translations: [Encounter for full-term uncomplicated delivery] Onset: 4 05-27-2023 Episodic Residual codes; unclassified (2 sources) Gestation period, 14 weeks; Translations: [14 weeks gestation of ] 12-05-2024 Episodic Unclassified (3 sources) CONTACT W/AND (SUSP) EXPOS COVID-19; Translations: [CONTACT W/AND (SUSP) EXPOS COVID-19] Onset: 2 Unclassified (1 source) COUGH, UNSPECIFIED; Translations: [COUGH, UNSPECIFIED] Onset: 2 Urinary tract infections (15 sources) Urinary tract infection, site not specified; Translations: [Urinary tract infectious disease] Onset: 3 Episodic Viral infection (2 sources) Herpes zoster without complication; Translations: [Zoster without complications] 12-05-2024 Episodic Past or Other Problems Problem Classification Problem Date Documented Da te Episodic/Chronic Administrative/social admission (13 sources) Patient encounter status; Translations: [Persons encountering health services in other specified circumstances] Onset: 06-27-2024 06-27-2024 Episodic Biliary tract disease (18 sources) Chronic cholecystitis with calculus; Translations: [Calculus of gallbladder with chronic cholecystitis without obstruction] Onset: 05-27-2023 09-30-2021 Episodic Other and unspecified benign neoplasm (11 sources) Mature cystic teratoma of left ovary; Translations: [Benign neoplasm of left ovary] Onset: 04-10-2015 05-27-2023 Episodic Other connective tissue disease (4 sources) Impingement syndrome of right shoulder; Translations: [IMPINGEMENT SYNDROME RIGHT SHOULDER] Onset: 07-10-2022 Episodic Other gastrointestinal disorders (10 sources) Pharyngeal dysphagia; Translations: [Dysphagia, pharyngeal phase] Onset: 05-07-2023 05-07-2023 Episodic Other non-traumatic joint disorders (5 sources) Pain in right shoulder; Translations: [PAIN IN RIGHT SHOULDER] Onset: 05-13-2022 Episodic Other screening for suspected conditions (not mental disorders or infectious disease) (18 sources) Ultrasonography of biliary tract abnormal; Translations: [Abnormal findings on diagnostic imaging of liver and biliary tract] Onset: 05-27-2023 09-20-2021 Episodic Other skin disorders (18 sources) Acne vulgaris; Translations: [Acne vulgaris] Onset: 05-27-2023 09-20-2021 Episodic Other upper respiratory infections (1 source) Acute pharyngitis, unspecified; Translations: [ACUTE PHARYNGITIS UNSPECIFIED] Onset: 10-23-2022 Episodic Poisoning by nonmedicinal substances (4 sources) Toxic effect of venom of bees, accidental (unintentional), initial encounter; Translations: [TOXIC EFF VENOM BEES ACC INIT ENC] Onset: 08-05-2022 Episodic Residual codes; unclassified (18 sources) Insomnia; Translations: [Insomnia, unspecified] Onset: 05-27-2023 [...] Name Value Interpretation Reference Range Facility Reminderson 12-08-2024 Reminders Reminders From: Sanjuana Muñoz To: EU - Administrative; Sent: 2024 10:01:58 EDT Show up: 07/07/2024 10:01:00 EDT Subject: 6 month F/U Due Date/Time: 11/01/2024 10:01:00 EST Reminder/Recall Patient needs scheduled for a 6 month F/U with PETER, due back Mid October 2024. M for patient to call and schedule f/u pt was scheduled nov 25 and was a no show a second time. Normal [facility] Urinalysis macro (dipstick) panel (U)on 12-05-2024 Bilirubin, UA Negative Negative - 4(70) +++ mg/dL [facility] Blood, UA Negative Negative - 50 Issac/mcL [facility] Clarity, UA Clear [facility] Healthca re Color, UA Yellow [facility] Healthcar e Glucose, UA Negative Negative - 2000(110) ++++ mg/dL [facility] Interpretation and review of laboratory results Abnormal [facility] Ketones, UA Negative Negative - 160(16) ++++ mg/dL [facility] Leukocytes, UA Positive Negative - 500+++ Christo/mcL [facility] Comment on above: small Nitrite, UA Negative Negative - Positive [facility] pH, UA 6.5 5 - 9 [facility] Protein, UA Trace Negative - 2000(20) ++++ mg/dL [facility] Spec Grav, UA 1.025 1 - 1.03 [facility] Urobilinogen, UA 0.2 0.2 - 12 mg/dL [facility] Basic Metabolic Panelon 11-23 Est, Glom Filt Rate - PINF [facility] Comment on above: These results are not intended for use in patients <18 years of age. eGFR results are calculated without a race factor using the 2020 CKD-EPI equation. Careful clinical correlation is recommended, particularly when comparing to results calculated using previous equations. The CKD-EPI equation is less accurate in patients with extremes of muscle mass, extra-renal metabolism of creatine, excessive creatine ingestion, or following therapy that affects renal tubular secretion. Interpretation and review of laboratory results Abnormal [facility] Urea nitrogen/Creatinine [Mass ratio] 12 mg/mg - [facility] Basic Metabolic Profon 12-02 Anion gap [Moles/Vol] 11 mmol/L Normal - [facility] Comment on above: Performed By: #### B MP, LIVP, MG, CDP, LIP #### [facility] [address] [place] [address] [place] [address] Blow Up Operator: Nandini Acevedo MD BUN/CRE Ratio 12 Normal - [facility] Comment on above: Performed By: #### B MP, LIVP, MG, CDP, LIP #### [facility] [address] [place] [address] Blow Up Operator: Nandini Acevedo MD Calcium [Mass/Vol] 9.3 mg/dL Normal 8.6-10.4 [facility] Comment on above: Performed By: #### B MP, LIVP, MG, CDP, LIP #### [facility] [address] [place] [address] Blow Up Operator: Nandini Acevedo MD Chloride [Moles/Vol] 102 mmol/L Normal 98-107 [facility] Comment on above: Performed By: #### B MP, LIVP, MG, CDP, LIP #### [facility] [address] [place] [address] Blow Up Operator: Nandini Acevedo MD CO2 [Moles/Vol] 24 mmol/L Normal 20-31 [facility] Comment on above: Performed By: #### B MP, LIVP, MG, CDP, LIP #### [facility] [address] [place] [address] Blow Up Operator: Nandini Acevedo MD Creatinine [Mass/Vol] 0.5 mg/dL Normal 0.50-0.90 [facility] Comment on above: Performed By: #### B MP, LIVP, MG, CDP, LIP #### [facility] [address] [place] [address] Blow Up Operator: Nandini Acevedo MD GFR/1.73 sq M.predicted among non-blacks MDRD (S/P/Bld) [Vol rate/Area] mL/min/{1.73_m2} Normal >60 [facility] Comment on above: Result Comment: These results are not intended for use in patients <18 years of age. eGFR results are calculated without a race factor using the 2020 CKD-EPI equation. Careful clinical correlation is recommended, particularly when comparing to results calculated using previous equations. The CKD-EPI equation is less accurate in patients with extremes of muscle mass, extra-renal metabolism of creatine, excessive creatine ingestion, or following therapy that affects renal tubular secretion. Performed By: #### B MP, LIVP, MG, CDP, LIP #### [facility] [address] [place] [address] Blow Up Operator: Nandini Acevedo MD Glucose [Mass/Vol] 88 mg/dL Normal 74-99 [facility] Comment on above: Performed By: #### B MP, LIVP, MG, CDP, LIP #### [facility] [address] [place] [address] [place] [address] Blow Up Operator: Nandini Acevedo MD Potassium [Moles/Vol] 3.6 mmol/L Low 3.7-5.3 [facility] Comment on above: Performed By: #### B MP, LIVP, MG, CDP, LIP #### [address] [place] [address] Blow Up Operator: Nandini Acevedo MD Sodium [Moles/Vol] 137 mmol/L Normal 136-145 [facility] Comment on above: Performed By: #### B MP, LIVP, MG, CDP, LIP #### [address] [place] [address] Blow Up Operator: Nandini Acevedo MD Urea nitrogen [Mass/Vol] 6 mg/dL Normal 6-20 [facility] Comment on above: Performed By: #### B MP, LIVP, MG, CDP, LIP #### [address] [place] [address] Blow Up Operator: Nandini Acevedo MD CBC with Auto Differentialon 12-02-2024 Basophils (Bld) [#/Vol] 0.04 10*3/uL [facility] Basophils/100 WBC (Bld) 0 % 0 - 2 % [facility] Eosinophils (Bld) [#/Vol] 0.06 10*3/uL [facility] Eosinophils/100 WBC (Bld) 0 % Low 1 - 4 % [facility] Erythrocyte distribution width (RBC) [Ratio] 12.0 % 11.8 - 14.4 % [facility] Hematocrit (Bld) [Volume fraction] 38.6 % 36.3 - 47.1 % [facility] Hemoglobin (Bld) [Mass/Vol] 13.3 g/dL 11.9 - 15.1 g/dL [facility] Immature granulocytes (Bld) [#/Vol] 0.05 10*3/uL [facility] Immature granulocytes/100 WBC (Bld) 0 % 0 [facility] Interpretation and review of laboratory results Abnormal [facility] Lymphocytes/100 WBC (Bld) 9 % Low 24 - 43 % [facility] Lymphocytes/100 WBC (Bld) 1.26 % [facility] MCH (RBC) [Entitic mass] 30.6 pg 25.2 - 33.5 pg [facility] MCHC (RBC) [Mass/Vol] 34.5 g/dL 28.4 - 34.8 g/dL [facility] MCV (RBC) [Entitic vol] 88.7 fL 82.6 - 102.9 fL [facility] Monocytes/100 WBC (Bld) 6 % 3 - 12 % [facility] Monocytes/100 WBC (Bld) 0.88 % [facility] Neutrophils/100 WBC (Bld) 85 % High 36 - 65 % [facility] Nucleated RBC/100 WBC (Bld) [Ratio] 0.0 % 0.0 per 100 WBC [facility] Platelet mean volume (Bld) [Entitic vol] 9.2 fL 8.1 - 13.5 fL [facility] Platelets (Bld) [#/Vol] 267 10*3/uL [facility] RBC (Bld) [#/Vol] 4.35 10*6/uL 3.95 - 5.1 1 m/uL [facility] Segmented neutrophils/100 WBC (Bld) 12.17 % High [facility] WBC other (Bld) [#/Vol] 14.5 High [facility] CBC with Diffon 12-02-2024 Abs. Basophil 0.04 k/uL Normal 0.00-0.20 [facility] Comment on above: Performed By: #### B MP, LIVP, MG, CDP, LIP #### [facility] [address] [place] [address] Blow Up Operator: Nandini Acevedo MD Abs.Imm.Granulocyte 0.05 k/uL Normal 0.00-0.30 [facility] Comment on above: Performed By: #### B MP, LIVP, MG, CDP, LIP #### [address] [place], [place] [id number] Blow Up Operator: Nandini Acevedo MD Abs.Neutrophil (Seg) 12.17 k/uL High 1.50-8.10 [facility] Comment on above: Performed By: #### B MP, LIVP, MG, CDP, LIP #### [address] [place], [place] [id number] Blow Up Operator: Nandini Acevedo MD Basophils/100 WBC (Bld) 0 % Normal 0-2 [facility] Comment on above: Performed By: #### B MP, LIVP, MG, CDP, LIP #### [address] [place], [facility]83 Blow Up Operator: Nandini Acevedo MD Eosinophils (Bld) [#/Vol] 0.06 10*3/uL Normal 0.00-0.44 [facility] Comment on above: Performed By: #### B MP, LIVP, MG, CDP, LIP #### [address] [place], [place] [id number] Blow Up Operator: Nandini Acevedo MD Eosinophils/100 WBC (Bld) 0 % Low 1-4 [facility] Comment on above: Performed By: #### B MP, LIVP, MG, CDP, LIP #### [address] [place], [facility]83 Blow Up Operator: Nandini Acevedo MD Erythrocyte distribution width (RBC) [Ratio] 12.0 % Normal 11.8-14.4 [facility] Comment on above: Performed By: #### B MP, LIVP, MG, CDP, LIP #### [address] [place] [address] Blow Up Operator: Nandini Acevedo MD Hematocrit (Bld) [Volume fraction] 38.6 % Normal 36.3-47.1 [facility] Comment on above: Performed By: #### B MP, LIVP, MG, CDP, LIP #### [address] [place] [id number] Blow Up Operator: Nandini Acevedo MD Hemoglobin (Bld) [Mass/Vol] 13.3 g/dL Normal 11.9-15.1 [facility] Comment on above: Performed By: #### B MP, LIVP, MG, CDP, LIP #### [address] [place] [address] Blow Up Operator: Nandini Acevedo MD Immature granulocytes/100 WBC (Bld) 0 % Normal 0 [facility] Comment on above: Performed By: #### B MP, LIVP, MG, CDP, LIP #### [address] [place] [address] Blow Up Operator: Nandini Acevedo MD Lymphocytes (Bld) [#/Vol] 1.26 10*3/uL Normal 1.10-3.70 [facility] Comment on above: Performed By: #### B MP, LIVP, MG, CDP, LIP #### [address] [place] [id number] Blow Up Operator: Nandini Acevedo MD Lymphocytes/100 WBC (Bld) 9 % Low 24-43 [facility] Comment on above: Performed By: #### B MP, LIVP, MG, CDP, LIP #### [address] [place] [id number] Blow Up Operator: Nandini Acevedo MD MCH (RBC) [Entitic mass] 30.6 pg Normal 25.2-33.5 [facility] Comment on above: Performed By: #### B MP, LIVP, MG, CDP, LIP #### [address] [place], [place] [phone] Blow Up Operator: Nandini Acevedo MD MCHC (RBC) [Mass/Vol] 34.5 g/dL Normal 28.4-34.8 [facility] Comment on above: Performed By: #### B MP, LIVP, MG, CDP, LIP #### [facility] [address] [place], [place] [phone] Blow Up Operator: Nandini Acevedo MD MCV (RBC) [Entitic vol] 88.7 fL Normal 82.6-102.9 [facility] Comment on above: Performed By: #### B MP, LIVP, MG, CDP, LIP #### [address] [place] [address] Blow Up Operator: Nandiin Acevedo MD Monocytes (Bld) [#/Vol] 0.88 10*3/uL Normal 0.10-1.20 [facility] Comment on above: Performed By: #### B MP, LIVP, MG, CDP, LIP #### [address] [place], [place] [phone] Blow Up Operator: Nandini Acevedo MD Monocytes/100 WBC (Bld) 6 % Normal 3-12 [facility] Comment on above: Performed By: #### B MP, LIVP, MG, CDP, LIP #### [address] [place], [place] [address] Blow Up Operator: Nandini Acevedo MD Neutrophil (Seg) 85 % High 36-65 [facility] Comment on above: Performed By: #### B MP, LIVP, MG, CDP, LIP #### [address] [place], [place] [phone] Blow Up Operator: Nandini Acevedo MD NRBC Automated 0.0 per 100 WBC Normal 0.0 [facility] Comment on above: Performed By: #### B MP, LIVP, MG, CDP, LIP #### [address] [place], [place] [id number] Blow Up Operator: Nandnii Acevedo MD Platelet mean volume (Bld) [Entitic vol] 9.2 fL Normal 8.1-13.5 [facility] Comment on above: Performed By: #### B MP, LIVP, MG, CDP, LIP #### [facility] [address] [place], [place] [phone] Blow Up Operator: Nandini Acevedo MD Platelets (Bld) [#/Vol] 267 10*3/uL Normal 138-453 [facility] Comment on above: Performed By: #### B MP, LIVP, MG, CDP, LIP #### [address] [place], [place] [phone] Blow Up Operator: Nandini Acevedo MD RBC (Bld) [#/Vol] 4.35 10*6/uL Normal 3.95-5.11 [facility] Comment on above: Performed By: #### B MP, LIVP, MG, CDP, LIP #### [address] [place], [place] [phone] Blow Up Operator: Nandini Acevedo MD WBC (Bld) [#/Vol] 14.5 10*3/uL High 3.5-11.3 [facility] Comment on above: Performed By: #### B MP, LIVP, MG, CDP, LIP #### [facility] [address] [place], [facility]83 Blow Up Operator: Nandini Acevedo MD Hepatic Function Panelon Albumin/Globulin [Mass ratio] 1.4 {ratio} 1.0 - 2.5 [facility] ALP [Catalytic activity/Vol] 61 U/L 35 - 104 U/L [facility] Bilirubin.direct [Mass/Vol] mg/dL 0.00 - 0.30 mg/dL [facility] Bilirubin.indirect [Mass/Vol] Can not be calculated 0.0 - 1.0 mg/dL [facility] Lipaseon 12-02-2024 Lipase [Catalytic activity/Vol] 34 U/L Normal 13-60 [facility] Comment on above: Performed By: #### B MP, LIVP, MG, CDP, LIP #### [facility] [address] [place], [place] [phone] Blow Up Operator: Nandini Acevedo MD Liver Profileon 12-02-2024 Albumin [Mass/Vol] 3.9 g/dL Normal 3.5-5.2 [facility] Comment on above: Performed By: #### B MP, LIVP, MG, CDP, LIP #### [facility] [address] [place], [place] [id number] Blow Up Operator: Nandini Acevedo MD Albumin/Glob Ratio 1.4 Normal 1.0-2.5 [facility] Comment on above: Performed By: #### B MP, LIVP, MG, CDP, LIP #### [facility] [address] [place], [place] [id number] Blow Up Operator: Nandini Acevedo MD Alkaline Phos 61 U/L Normal 35-104 [facility] Comment on above: Performed By: #### B MP, LIVP, MG, CDP, LIP #### [address] [place], [place] [phone] Blow Up Operator: Nandini Acevedo MD ALT [Catalytic activity/Vol] 14 U/L Normal 10-35 [facility] Comment on above: Performed By: #### B MP, LIVP, MG, CDP, LIP #### [facility] [address] [place], [place] [phone] Blow Up Operator: Nandini Acevedo MD AST [Catalytic activity/Vol] 14 U/L Normal 10-35 [facility] Comment on above: Performed By: #### B MP, LIVP, MG, CDP, LIP #### [facility] [address] [place], [place] [id number] Blow Up Operator: Nandini Acevedo MD Bilirubin [Mass/Vol] mg/dL Normal 0.00-1.20 [facility] Comment on above: Performed By: #### B MP, LIVP, MG, CDP, LIP #### [address] [place] [address] Blow Up Operator: Nandini Acevedo MD Bilirubin, Indirect Can not be calculated Normal 0.0-1 .0 [facility] Comment on above: Performed By: #### B MP, LIVP, MG, CDP, LIP #### [address] [place], [place] [id number] Blow Up Operator: Nandini Acevedo MD Bilirubin.indirect [Mass/Vol] mg/dL Normal 0.00-0.30 [facility] Comment on above: Performed By: #### B MP, LIVP, MG, CDP, LIP #### [address] [place], [place] [phone] Blow Up Operator: Nandini Acevedo MD Protein [Mass/Vol] 6.7 g/dL Normal 6.6-8.7 [facility] Comment on above: Performed By: #### B MP, LIVP, MG, CDP, LIP #### [address] [place], [place] [phone] Blow Up Operator: Nandini Acevedo MD Magnesiumon 8 Magnesium [Mass/Vol] 1.7 mg/dL Normal 1.6-2.6 [facility] Comment on above: Performed By: #### B MP, LIVP, MG, CDP, LIP #### [address] [place], [place] [phone] Blow Up Operator: Nandini Acevedo MD Microscopic Urinalysison Amorphous sediment LM Ql (Urine sed) 2+ Abnormal None [facility] Epithelial cells LM.HPF (Urine sed) [#/Area] 0 TO 2 [facility] Interpretation and review of laboratory results Abnormal [facility] RBC LM.HPF (Urine sed) [#/Area] 0 TO 2 [facility] WBC LM.HPF (Urine sed) [#/Area] 2 TO 5 [facility] No Panel Informationon 12-02 [facility] US OB LESS THAN 14 WEEKS SIN GLE OR FIRST GESTATION W DOPPLERon 12-02-2024 US OB LESS THAN 14 WEEKS SINGLE OR FIRST GESTATION W DOPPLER EXAMINATION: FIRST TRIMESTER OBSTETRIC ULTRASOUND 12/02/2024 TECHNIQUE: Transabdominal first trimester obstetric pelvic duplex ultrasound was performed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 METAMYELOCYTE % Normal [facility] Comment on above: Performed By: #### C EDGARDO #### [facility] [address] [place] [address] Dr. Saray Souza MONOM# 2.06 103/ul Critically high 0.30-0.[address] [facility] Comment on above: Performed By: #### C EDGARDO #### [facility] [address] [place] [address] Dr. Saray Souza MONOM% 8.0 % Normal 1.7-12.0 [facility] [place] [facility] Comment on above: Performed By: #### C EDGARDO #### [facility] [address] [place] [address] Dr. Saray Souza MPV 8.8 fL Critically low 9.5-13.5 [facility] Comment on above: Performed By: #### C EDGARDO #### [facility] [address] [address] [address] Saray Souza MYELOCYTE # Normal [facility] Comment on above: Performed By: #### C EDGARDO #### [facility] [address] [address] [address] Saray Souza MYELOCYTE % Normal [facility] Comment on above: Performed By: #### C EDGARDO #### [facility] [address] [address] [address] Saray Souza NRBC Normal [facility] Comment on above: Performed By: #### C EDGARDO #### [facility] [address] [address] [address] Saray Souza PLT 397 103/ul Normal 150-450 [facility] Comment on above: Performed By: #### C EDGARDO #### [facility] [address] [address] [address] Saray Souza RBC 4.85 106/ul Normal 4.20-5.40 [facility] Comment on above: Performed By: #### C EDGARDO #### [facility] [address] [address] [address] Saray Souza RDW 12.0 % Normal 11.0-15.0 [facility] Comment on above: Performed By: #### C EDGARDO #### [facility] [address] [address] [address] Saray Souza SEG # 21.93 103/ul Critically high 1.40-6.50 [facility] Comment on above: Performed By: #### C EDGARDO #### [facility] [address] [address] [address] Saray Souza SEG % 85.0 % Critically high 43.0-75.0 [facility] Comment on above: Performed By: #### C EDGARDO #### [facility] [address] [address] [address] Saray Souza WBC 25.8 103/ul Critically high 4.0-11.0 [facility] Comment on above: Performed By: #### C BCMAN #### [facility] [address] [place] [address] Dr. Saray Souza CULTURE URINEon 04-17-2023 CULTURE URINE Culture Observations : LORENZO TO FOLLOW. Isolate 1 Enterococcus faecalis 20,000 cfu/mL of Normal [facility] Comment on above: Performed By: #### C BC #### [facility] [address] [place] [address] Dr. Saray Souza ER URINE PROFILEon 3 Bilirubin Ql (U) Negative Normal NEGATIVE [facility] Comment on above: Performed By: #### C BC #### [facility] [address] [place] [address] Dr. Saray Souza Clarity (U) CLEAR Normal CLEAR [facility] [place] [facility] Comment on above: Performed By: #### C BC #### [facility] [address] [place] [address] Dr. Saray Souza Color (U) LT. YELLOW Normal YELLOW [facility] [place] [facility] Comment on above: Performed By: #### C BC #### [facility] [address] [place] [address] Dr. Saray Souza ERUNIKOLE A micrscopic examination will be performed if indicated. Normal [facility] [place] [facility] Comment on above: Performed By: #### C BC #### [facility] [address] [place] [address] Dr. Saray Souza Glucose Ql (U) Negative Normal NEGATIVE [facility] Comment on above: Performed By: #### C BC #### [facility] [address] [place] [address] Dr. Saray Souza Hemoglobin Ql (U) Negative Normal NEGATIVE [facility] Comment on above: Performed By: #### C BC #### [facility] [address] [place] [address] Dr. Saray Souza Ketones Ql (U) Negative Normal NEGATIVE [facility] Comment on above: Performed By: #### C BC #### [facility] [address] [place] [address] Dr. Saray Souza LEUKOCYTES SMALL Abnormal NEGATIVE [facility] Comment on above: Performed By: #### C BC #### [facility] [address] [place] [address] Dr. Saray Souza Nitrite Ql (U) Negative Normal NEGATIVE [facility] Comment on above: Performed By: #### C BC #### [facility] [address] [place] [address] Dr. Saray Souza pH (U) 6.5 [pH] Normal 5-9 [facility] Comment on above: Performed By: #### C BC #### [facility] [address] [place] [address] Dr. Saray Souza SPEC GRAVITY 1.025 Normal 1.005-<=1.025 [facility] Comment on above: Performed By: #### C BC #### [facility] [address] [place] [address] Dr. Saray Souza UA PROTEIN Negative Normal NEGATIVE/ TRACE [facility] Comment on above: Performed By: #### C BC #### [facility] [address] [place] [address] Dr. Saray Souza UR MICRO IND INDICATED Normal [facility] Comment on above: Performed By: #### C BC #### [facility] [address] [place] [address] Dr. Saray Souza Urobilinogen Qn (U) 0.2 {Janine'U}/dL Normal 0.2 - 1. 0 [facility] Comment on above: Performed By: #### C BC #### [facility] [address] [place] [address] Dr. Saray Souza URon 04-17-2023 , QUAL Negative Normal NEGATIVE [facility] Comment on above: Performed By: #### C BC #### [facility] [address] [place] [address] Dr. Saray Souza PROF 14(COMP METB)on 023 Albumin [Mass/Vol] 3.0 g/dL Critically low 3.4-5.0 [facility] Comment on above: Performed By: #### I NSULIN #### [facility] [address] [place] [address] Dr. Saray Souza Albumin/Globulin [Mass ratio] 0.9 {ratio} Normal [facility] Comment on above: Performed By: #### I NSULIN #### [facility] [address] [address] [address] Saray Souza ALP [Catalytic activity/Vol] 54 U/L Normal 46-116 [facility] Comment on above: Performed By: #### I NSULIN #### [facility] [address] [address] [address] Saray Souza ALT [Catalytic activity/Vol] 27 U/L Normal 14-59 [facility] Comment on above: Performed By: #### I NSULIN #### [facility] [address] [address] [address] Saray Souza Anion gap [Moles/Vol] 12.9 mmol/L Normal [facility] Comment on above: Performed By: #### I NSULIN #### [facility] [address] [address] [address] Saray Souza AST [Catalytic activity/Vol] 12 U/L Critically low 15-37 [facility] Comment on above: Performed By: #### I NSULIN #### [facility] [address] [address] [address] Saray Souza Bilirubin [Mass/Vol] 0.3 mg/dL Normal 0.2-1.0 [facility] Comment on above: Performed By: #### I NSULIN #### [facility] [address] [address] [address] Saray Souza Calcium [Mass/Vol] 8.1 mg/dL Critically low 8.5-10.1 [facility] Comment on above: Performed By: #### I NSULIN #### [facility] [address] [address] [address] Saray Souza Chloride [Moles/Vol] 102 mmol/L Normal 98-107 [facility] Comment on above: Performed By: #### I NSULIN #### [facility] [address] [address] [address] Saray Souza CO2 [Moles/Vol] 26.2 mmol/L Normal 21.0-32.0 [facility] Comment on above: Performed By: #### I NSULIN #### [facility] [address] [address] [address] Saray Souza Creatinine [Mass/Vol] 0.87 mg/dL Normal 0.55-1.02 [facility] Comment on above: Performed By: #### I NSULIN #### [facility] [address] [address] [address] Saray Souza EGFR-AF DUTCH >60 Normal >=60 [facility] Comment on above: Performed By: #### I NSULIN #### [facility] [address] [address] [address] Saray Suoza EGFR-NON AF DUTCH >60 Normal >=60 [facility] Comment on above: Performed By: #### I NSULIN #### [facility] [address] [place] [address] Dr. Saray Souza Globulin (S) [Mass/Vol] 3.2 g/dL Normal [facility] Comment on above: Performed By: #### I NSULIN #### [facility] [address] [address] [address] Saray Souza Glucose [Mass/Vol] 206 mg/dL Critically high 74-106 [facility] Comment on above: Performed By: #### I NSULIN #### [facility] [address] [address] [address] Saray Souza Potassium [Moles/Vol] 4.1 mmol/L Normal 3.5-5.1 [facility] Comment on above: Performed By: #### I NSULIN #### [facility] [address] [address] [address] Saray Souza Protein [Mass/Vol] 6.2 g/dL Critically low 6.4-8.2 [facility] Comment on above: Performed By: #### I NSULIN #### [facility] [address] [address] [address] Saray Souza Sodium [Moles/Vol] 137 mmol/L Normal 136-145 [facility] Comment on above: Performed By: #### I NSULIN #### [facility] [address] [place] [address] Dr. Saray Souza Urea nitrogen [Mass/Vol] 19.0 mg/dL Critically high 7.0-18.0 [facility] Comment on above: Performed By: #### I NSULIN #### [facility] [address] [place] [address] Dr. Saray Souza Urea nitrogen/Creatinine [Mass ratio] 21.8 mg/mg Normal [facility] Comment on above: Performed By: #### I NSULIN #### [facility] [address] [place] [address] Dr. Saray Souza TSHon 04-17-2023 TSH 0.553 uIU/mL Normal 0.358-3.740 [facility] Comment on above: Performed By: #### I NSULIN #### [facility] [address] [place] [address] Dr. Saray Souza URINE MICROSCOPIC ONLYon BACTERIA TRACE Abnormal NONE SEEN [facility] Comment on above: Performed By: #### C BC #### [facility] [address] [place] [address] Dr. Saray Souza Bacteria identified Cx Nom (U) INDICATED Normal [facility] [place] [facility] Comment on above: Performed By: #### C BC #### [facility] [address] [place] [address] Dr. Saray Souza CAST NONE SEEN Normal NONE SEEN [facility] Comment on above: Performed By: #### C BC #### [facility] [address] [place] [address] Dr. Saray Souza Crystals LM Nom (Urine sed) NONE SEEN Normal NONE SEEN [facility] Comment on above: Performed By: #### C BC #### [facility] [address] [place] [address] Dr. Saray Souza Epithelial cells LM Ql (Urine sed) RARE Normal NONE SEEN /RARE [facility] Comment on above: Performed By: #### C BC #### [facility] [address] [place] [address] Dr. Saray Souza MUCOUS NONE SEEN Normal NONE SEEN [facility] Comment on above: Performed By: #### C BC #### [facility] [address] [address] [address] Saray Souza RBC 0-2 Normal 0-2 [facility] Comment on above: Performed By: #### C BC #### [facility] [address] [place], [place] [id number] Dr. Saray Souza WBC 5-10 Abnormal NONE SEEN [facility] Comment on above: Performed By: #### C BC #### [facility] [address] [place], [place] [id number] Dr. Saray Souza XR CHEST 2 Von [...] CAROL RAMIREZ Date: 2023-04-17 10:45 Normal [facility] INSULINon 04-07-2023 Insulin 11.3 uIU/mL Normal 2.6-24.9 [facility] Comment on above: Performed By: #### I NSULIN #### [facility] [address] [place] [address] Dr. Saray Souza US KIDNEYS BLADDERon 023 [...] NANDINI MAYER Date: 2023-04-04 08:22 Normal [facility] INSULINon 04-02-2023 Insulin 37.5 uIU/mL Critically high 2.6-24.[address] [facility] Comment on above: Performed By: #### I NSULIN #### [facility] [address] [place] [address] Dr. Saray Souza CBC AUTO DIFFon 04-01-2023 BASO # 0.0 103/ul Normal 0.0-0.1 [facility] Comment on above: Performed By: #### C BC #### [facility] [address] [place] [address] Dr. Saray Souza Basophils/100 WBC (Bld) 0.5 % Normal 0.2-2.0 [facility] Comment on above: Performed By: #### C BC #### [facility] [address] [place] [address] Dr. Saray Souza EO # 0.2 103/ul Normal 0.0-0.7 [facility] Comment on above: Performed By: #### C BC #### [facility] [address] [place] [address] Dr. Saray Souza Eosinophils/100 WBC (Bld) 2.3 % Normal 0.9-7.0 [facility] Comment on above: Performed By: #### C BC #### [facility] [address] [place] [address] Dr. Saray Souza Erythrocyte distribution width (RBC) [Ratio] 11.9 % Normal 11.0-15.0 [facility] Comment on above: Performed By: #### C BC #### [facility] [address] [place] [address] Dr. Saray Souza Hematocrit (Bld) [Volume fraction] 42.2 % Normal 36.0-48.0 [facility] Comment on above: Performed By: #### C BC #### [facility] [address] [place] [address] Dr. Saray Souza Hemoglobin (Bld) [Mass/Vol] 13.7 g/dL Normal 12.0-16.0 [facility] Comment on above: Performed By: #### C BC #### [facility] [address] [place] [address] Dr. Saray Sozua IG # 0.02 10e3/ul Normal 0.00-0.03 [facility] Comment on above: Performed By: #### C BC #### [facility] [address] [place] [address] Dr. Saray Souza IG % 0.3 % Normal 0.0-0.5 [facility] Comment on above: Performed By: #### C BC #### [facility] [address] [place] [address] Dr. Saray Souza LYMPH # 1.6 103/ul Normal 1.2-3.8 [facility] Comment on above: Performed By: #### C BC #### [facility] [address] [place] [address] Dr. Saray Souza Lymphocytes/100 WBC (Bld) 21.5 % Normal 20.5-60.0 [facility] Comment on above: Performed By: #### C BC #### [facility] [address] [place] [address] Dr. Saray Souza MANUAL DIFF REQ NO Normal [facility] Comment on above: Performed By: #### C BC #### [facility] [address] [place] [address] Dr. Saray Souza MCH (RBC) [Entitic mass] 30.0 pg Normal 26.7-34.0 [facility] Comment on above: Performed By: #### C BC #### [facility] [address] [place] [address] Dr. Saray Souza MCHC (RBC) [Mass/Vol] 32.5 g/dL Normal 29.9-35.2 [facility] Comment on above: Performed By: #### C BC #### [facility] [address] [place], [place] [id number] Dr. Saray Souza MCV (RBC) [Entitic vol] 92.5 fL Normal 81.0-99.0 [facility] Comment on above: Performed By: #### C BC #### [facility] [address] [place] [address] Dr. Saray Souza MONO # 0.7 103/ul Normal 0.3-0.8 [facility] Comment on above: Performed By: #### C BC #### [facility] [address] [place] [address] Dr. Saray Souza Monocytes/100 WBC (Bld) 9.6 % Normal 1.7-12.0 [facility] Comment on above: Performed By: #### C BC #### [facility] [address] [place] [address] Dr. Saray Souza NEUT # 5.0 103/ul Normal 1.4-6.5 [facility] Comment on above: Performed By: #### C BC #### [facility] [address] [place] [address] Dr. Saray Souza Neutrophils/100 WBC (Bld) 65.8 % Normal 43.0-75.0 [facility] Comment on above: Performed By: #### C BC #### [facility] [address] [place] [address] Dr. Saray Souza Platelet mean volume (Bld) [Entitic vol] 8.9 fL Critically low 9.5-13.5 [facility] Comment on above: Performed By: #### C BC #### [facility] [address] [place] [address] Dr. Saray Souza PLT 293 103/ul Normal 150-450 [facility] Comment on above: Performed By: #### C BC #### [facility] [address] [place] [address] Dr. Saray Souza RBC 4.56 106/ul Normal 4.20-5.40 [facility] Comment on above: Performed By: #### C BC #### [facility] [address] [place] [address] Dr. Saray Souza WBC 7.5 103/ul Normal 4.0-11.0 [facility] Comment on above: Performed By: #### C BC #### [facility] [address] [place] [address] Dr. Saray Souza CULTURE URINEon 04-01-2023 CULTURE URINE Culture Observations : MODERATE GROWTH OF MIXED GENITAL CARMELO. NO POTENTIAL PATHOGENS SEEN. Normal [facility] Comment on above: Performed By: #### C BC #### [facility] [address] [place] [address] Dr. Saray Souza FREE THYROXINE INDEX T7on FTI 2.51 Normal 1.30-4.50 [facility] Comment on above: Performed By: #### I NSULIN #### [facility] [address] [place] [address] Dr. Saray Souza T3U 33.0 % Normal 30.0-39.0 [facility] Comment on above: Performed By: #### I NSULIN #### [facility] [address] [place] [address] Dr. Saray Souza T4 [Mass/Vol] 7.60 ug/dL Normal 4.80-13.90 [facility] Comment on above: Performed By: #### I NSULIN #### [facility] [address] [place] [address] Dr. Saray Souza IRONon 04-01-2023 Iron [Mass/Vol] 151.0 ug/dL Normal 50.0-170.0 [facility] Comment on above: Performed By: #### C BCMAN #### [facility] [address] [place] [address] Dr. Saray Souza PROF 14(COMP METB)on 023 Albumin [Mass/Vol] 3.7 g/dL Normal 3.4-5.0 [facility] Comment on above: Performed By: #### C EDGARDO #### [facility] [address] [place] [address] Dr. Saray Souza Albumin/Globulin [Mass ratio] 1.1 {ratio} Normal [facility] Comment on above: Performed By: #### C BCMAN #### [facility] [facility] [address] [address] [address] Saray Souza ALP [Catalytic activity/Vol] 81 U/L Normal 46-116 [facility] Comment on above: Performed By: #### C EDGARDO #### [facility] [address] [address] [address] Saray Souza ALT [Catalytic activity/Vol] 33 U/L Normal 14-59 [facility] Comment on above: Performed By: #### C EDGARDO #### [facility] [address] [address] [address] Saray Souza Anion gap [Moles/Vol] 10.2 mmol/L Normal [facility] Comment on above: Performed By: #### C EDGARDO #### [facility] [address] [address] [address] Saray Souza AST [Catalytic activity/Vol] 22 U/L Normal 15-37 [facility] Comment on above: Performed By: #### C EDGARDO #### [facility] [address] [address] [address] Saray Souza Bilirubin [Mass/Vol] 0.3 mg/dL Normal 0.2-1.0 [facility] Comment on above: Performed By: #### C EDGARDO #### [facility] [address] [address] [address] Saray Souza Calcium [Mass/Vol] 8.6 mg/dL Normal 8.5-10.1 [facility] Comment on above: Performed By: #### C EDGARDO #### [facility] [address] [address] [address] Saray Souza Chloride [Moles/Vol] 105 mmol/L Normal 98-107 [facility] Comment on above: Performed By: #### C EDGARDO #### [facility] [address] [address] [address] Saray Souza CO2 [Moles/Vol] 30.4 mmol/L Normal 21.0-32.[address] [facility] Comment on above: Performed By: #### C EDGARDO #### [facility] [address] [place] [address] Dr. Saray Souza Creatinine [Mass/Vol] 0.72 mg/dL Normal 0.55-1.02 [facility] Comment on above: Performed By: #### C EDGARDO #### [facility] [address] [place] [address] Dr. Saray Souza EGFR-AF DUTCH >60 Normal >=[address] [facility] Comment on above: Performed By: #### C EDGARDO #### [facility] [address] [place] [address] Dr. Saray Souza EGFR-NON AF DUTCH >60 Normal >=60 [facility] Comment on above: Performed By: #### C EDGARDO #### [facility] [address] [place] [address] Dr. Saray Souza Globulin (S) [Mass/Vol] 3.5 g/dL Normal [facility] Comment on above: Performed By: #### C EDGARDO #### [facility] [address] [place] [address] Dr. Saray Souza Glucose [Mass/Vol] 89 mg/dL Normal 74-106 [facility] Comment on above: Performed By: #### C EDGARDO #### [facility] [address] [place] [address] Dr. Saray Souza Potassium [Moles/Vol] 3.6 mmol/L Normal 3.5-5.1 [facility] Comment on above: Performed By: #### C EDGARDO #### [facility] [address] [place] [address] Dr. Saray Souza Protein [Mass/Vol] 7.2 g/dL Normal 6.4-8.2 [facility] Comment on above: Performed By: #### C EDGARDO #### [facility] [address] [place] [address] Dr. Saray Souza Sodium [Moles/Vol] 142 mmol/L Normal 136-145 [facility] Comment on above: Performed By: #### C EDGARDO #### [facility] [address] [place] [address] Dr. Saray Souza Urea nitrogen [Mass/Vol] 12.0 mg/dL Normal 7.0-18.0 [facility] Comment on above: Performed By: #### C EDGARDO #### [facility] [address] [place] [address] Dr. Saray Souza Urea nitrogen/Creatinine [Mass ratio] 16.7 mg/mg Normal [facility] Comment on above: Performed By: #### C EDGARDO #### [facility] [address] [place] [address] Dr. Saray Souza TSHon 04-01-2023 TSH 1.708 uIU/mL Normal 0.358-3.740 [facility] Comment on above: Performed By: #### I CURLYULIN #### [facility] [address] [place] [address] Dr. Saray Souza UA RANDOM W/MICROSCOPICon BACTERIA SMALL Abnormal NONE SEEN [facility] Comment on above: Performed By: #### I CURLYULIN #### [facility] [address] [place] [address] Dr. Saray Souza Bilirubin Ql (U) Negative Normal NEGATIVE [facility] Comment on above: Performed By: #### I CURLYULIN #### [facility] [address] [place] [address] Dr. Saray Souza CAST NONE SEEN Normal NONE SEEN [facility] Comment on above: Performed By: #### I CURLYULIN #### [facility] [address] [place] [address] Dr. Saray Souza Clarity (U) CLEAR Normal CLEAR [facility] Comment on above: Performed By: #### I NSULIN #### [facility] [address] [place] [address] Dr. Saray Souza Color (U) YELLOW Normal YELLOW [facility] Comment on above: Performed By: #### I NSULIN #### [facility] [address] [place] [address] Dr. Saray Souza Crystals LM Nom (Urine sed) NONE SEEN Normal NONE SEEN [facility] Comment on above: Performed By: #### I NSULIN #### [facility] [address] [address] [address] Saray Souza Epithelial cells LM Ql (Urine sed) FEW Abnormal NONE SEEN /RARE [facility] Comment on above: Performed By: #### I NSULIN #### [facility] [address] [place] [address] Dr. Saray Souza Glucose Ql (U) Negative Normal NEGATIVE [facility] Comment on above: Performed By: #### I NSULIN #### [facility] [address] [place] [address] Dr. Saray Souza Hemoglobin Ql (U) Negative Normal NEGATIVE [facility] Comment on above: Performed By: #### I NSULIN #### [facility] [address] [place] [address] Dr. Saray Souza Ketones Ql (U) TRACE Abnormal NEGATIVE [facility] Comment on above: Performed By: #### I NSULIN #### [facility] [address] [place] [address] Dr. Saray Souza LEUKOCYTES SMALL Abnormal NEGATIVE [facility] Comment on above: Performed By: #### I NSULIN #### [facility] [address] [place] [address] Dr. Sraay Souza MUCOUS NONE SEEN Normal NONE SEEN [facility] Comment on above: Performed By: #### I NSULIN #### [facility] [address] [place] [address] Dr. Saray Souza Nitrite Ql (U) Negative Normal NEGATIVE [facility] Comment on above: Performed By: #### I NSULIN #### [facility] [address] [place] [address] Dr. Saray Souza pH (U) 5.5 [pH] Normal 5-9 [facility] Comment on above: Performed By: #### I NSULIN #### [facility] [address] [place] [address] Dr. Saray Souza RBC 0-2 Normal 0-2 [facility] Comment on above: Performed By: #### I NSULIN #### [facility] [address] [place] [address] Dr. Saray Souza SPEC GRAVITY >=1.030 Abnormal 1.005-<=1.025 [facility] Comment on above: Performed By: #### I NSULIN #### [facility] [address] [place] [address] Dr. Saray Souza UA PROTEIN Negative Normal NEGATIVE/ TRACE [facility] Comment on above: Performed By: #### I NSULIN #### [facility] [address] [place] [address] Dr. Saray Souza Urobilinogen Qn (U) 0.2 {Janine'U}/dL Normal 0.2 - 1. 0 [facility] Comment on above: Performed By: #### I NSULIN #### [facility] [address] [place] [address] Dr. Saray Souza WBC 5-10 Abnormal NONE SEEN [facility] Comment on above: Performed By: #### I NSULIN #### [facility] [address] [place] [address] Dr. Saray Souza INSULINon 02-14-2023 Insulin 12.8 uIU/mL Normal 2.6-24.9 [facility] Comment on above: Performed By: #### C BC #### [facility] [address] [place] [address] Dr. Saray Souza CBC AUTO DIFFon 02-13-2023 BASO # 0.0 103/ul Normal 0.0-0.1 [facility] Comment on above: Performed By: #### C BC #### [facility] [address] [place] [address] Dr. Saray Souza Basophils/100 WBC (Bld) 0.4 % Normal 0.2-2.0 [facility] Comment on above: Performed By: #### C BC #### [facility] [address] [place] [address] Dr. Saray Souza EO # 0.1 103/ul Normal 0.0-0.7 [facility] Comment on above: Performed By: #### C BC #### [facility] [address] [place] [address] Dr. Saray Souza Eosinophils/100 WBC (Bld) 1.6 % Normal 0.9-7.0 [facility] Comment on above: Performed By: #### C BC #### [facility] [address] [place] [address] Dr. Saray Souza Erythrocyte distribution width (RBC) [Ratio] 11.9 % Normal 11.0-15.0 [facility] Comment on above: Performed By: #### C BC #### [facility] [address] [place] [address] Dr. Saray Souza Hematocrit (Bld) [Volume fraction] 41.9 % Normal 36.0-48.0 [facility] Comment on above: Performed By: #### C BC #### [facility] [address] [place] [address] Dr. Saray Souza Hemoglobin (Bld) [Mass/Vol] 13.7 g/dL Normal 12.0-16.0 [facility] Comment on above: Performed By: #### C BC #### [facility] [address] [place] [address] Dr. Saray Souza IG # 0.02 10e3/ul Normal 0.00-0.03 [facility] Comment on above: Performed By: #### C BC #### [facility] [address] [place] [address] Dr. Saray Souza IG % 0.3 % Normal 0.0-0.5 [facility] Comment on above: Performed By: #### C BC #### [facility] [address] [place] [address] Dr. Saray Souza LYMPH # 1.4 103/ul Normal 1.2-3.8 [facility] Comment on above: Performed By: #### C BC #### [facility] [address] [place] [address] Dr. Saray Souza Lymphocytes/100 WBC (Bld) 18.6 % Critically low 20.5-60.0 [facility] Comment on above: Performed By: #### C BC #### [facility] [address] [place] [address] Dr. Saray Souza MANUAL DIFF REQ NO Normal [facility] Comment on above: Performed By: #### C BC #### [facility] [address] [address] [address] Saray Souza MCH (RBC) [Entitic mass] 29.9 pg Normal 26.7-34.0 [facility] Comment on above: Performed By: #### C BC #### [facility] [address] [place] [address] Dr. Saray Souza MCHC (RBC) [Mass/Vol] 32.7 g/dL Normal 29.9-35.2 [facility] Comment on above: Performed By: #### C BC #### [facility] [address] [place] [address] Dr. Saray Souza MCV (RBC) [Entitic vol] 91.5 fL Normal 81.0-99.0 [facility] Comment on above: Performed By: #### C BC #### [facility] [address] [place] [address] Dr. Saray Souza MONO # 0.6 103/ul Normal 0.3-0.8 [facility] Comment on above: Performed By: #### C BC #### [facility] [address] [place] [address] Dr. Saray Souza Monocytes/100 WBC (Bld) 8.3 % Normal 1.7-12.0 [facility] Comment on above: Performed By: #### C BC #### [facility] [address] [place] [address] Dr. Saray Souza NEUT # 5.5 103/ul Normal 1.4-6.5 [facility] Comment on above: Performed By: #### C BC #### [facility] [address] [place] [address] Dr. Saray Souza Neutrophils/100 WBC (Bld) 70.8 % Normal 43.0-75.0 [facility] Comment on above: Performed By: #### C BC #### [facility] [address] [place] [address] Dr. Saray Souza Platelet mean volume (Bld) [Entitic vol] 9.0 fL Critically low 9.5-13.5 [facility] Comment on above: Performed By: #### C BC #### [facility] [address] [address] [address] Saray Souza PLT 271 103/ul Normal 150-450 [facility] Comment on above: Performed By: #### C BC #### [facility] [address] [address] [address] Saray Souza RBC 4.58 106/ul Normal 4.20-5.40 [facility] Comment on above: Performed By: #### C BC #### [facility] [address] [address] [address] Saray Souza WBC 7.7 103/ul Normal 4.0-11.0 [facility] Comment on above: Performed By: #### C BC #### [facility] [address] [place] [address] Dr. Saray Souza FREE THYROXINE INDEX T7on FTI 2.56 Normal 1.30-4.50 [facility] Comment on above: Performed By: #### I NSULIN #### [facility] [address] [place] [address] Dr. Saray Souza T3U 36.0 % Normal 30.0-39.0 [facility] Comment on above: Performed By: #### I NSULIN #### [facility] [address] [place] [address] Dr. Saray Souza T4 [Mass/Vol] 7.10 ug/dL Normal 4.80-13.90 [facility] Comment on above: Performed By: #### I NSULIN #### [facility] [address] [address] [address] aSray Souza IRONon 02-13-2023 Iron [Mass/Vol] 130.0 ug/dL Normal 50.0-170.0 [facility] Comment on above: Performed By: #### C BCMAN #### [facility] [address] [place] [address] Dr. Saray Souza PROF 14(COMP METB)on 023 Albumin [Mass/Vol] 3.8 g/dL Normal 3.4-5.0 [facility] Comment on above: Performed By: #### I NSULIN #### [facility] [address] [address] [address] Saray Souza Albumin/Globulin [Mass ratio] 1.2 {ratio} Normal [facility] Comment on above: Performed By: #### I NSULIN #### [facility] [address] [address] [address] Saray Souza ALP [Catalytic activity/Vol] 82 U/L Normal 46-116 [facility] Comment on above: Performed By: #### I NSULIN #### [facility] [address] [address] [address] Saray Souza ALT [Catalytic activity/Vol] 25 U/L Normal 14-59 [facility] Comment on above: Performed By: #### I NSULIN #### [facility] [address] [place] [address] Dr. Saray Souza Anion gap [Moles/Vol] 12.7 mmol/L Normal [facility] Comment on above: Performed By: #### I NSULIN #### [facility] [address] [address] [address] Saray Souza AST [Catalytic activity/Vol] 19 U/L Normal 15-37 [facility] Comment on above: Performed By: #### I NSULIN #### [facility] [address] [place] [address] Dr. Saray Souza Bilirubin [Mass/Vol] 0.3 mg/dL Normal 0.2-1.0 [facility] Comment on above: Performed By: #### I NSULIN #### [facility] [address] [address] [address] Saray Souza Calcium [Mass/Vol] 8.8 mg/dL Normal 8.5-10.1 [facility] Comment on above: Performed By: #### I NSULIN #### [facility] [address] [address] [address] Saray Souza Chloride [Moles/Vol] 101 mmol/L Normal 98-107 [facility] Comment on above: Performed By: #### I NSULIN #### [facility] [address] [place] [address] Dr. Saray Souza CO2 [Moles/Vol] 27.3 mmol/L Normal 21.0-32.0 [facility] Comment on above: Performed By: #### I NSULIN #### [facility] [address] [place] [address] Dr. Saray Souza Creatinine [Mass/Vol] 0.69 mg/dL Normal 0.55-1.02 [facility] Comment on above: Performed By: #### I NSULIN #### [facility] [address] [place] [address] Dr. Saray Souza EGFR-AF DUTCH >60 Normal >=[address] [facility] Comment on above: Performed By: #### I NSULIN #### [facility] [address] [place] [address] Dr. Saray Souza EGFR-NON AF DUTCH >60 Normal >=60 [facility] Comment on above: Performed By: #### I NSULIN #### [facility] [address] [place] [address] Dr. Saray Souza Globulin (S) [Mass/Vol] 3.3 g/dL Normal [facility] Comment on above: Performed By: #### I NSULIN #### [facility] [address] [place] [address] Dr. Saray Souza Glucose [Mass/Vol] 83 mg/dL Normal 74-106 [facility] Comment on above: Performed By: #### I NSULIN #### [facility] [address] [place] [address] Dr. Saray Souza Potassium [Moles/Vol] 4.0 mmol/L Normal 3.5-5.1 [facility] Comment on above: Performed By: #### I NSULIN #### [facility] [address] [place] [address] Dr. Saray Souza Protein [Mass/Vol] 7.1 g/dL Normal 6.4-8.2 [facility] Comment on above: Performed By: #### I NSULIN #### [facility] [address] [place] [address] Dr. Saray Souza Sodium [Moles/Vol] 137 mmol/L Normal 136-145 [facility] Comment on above: Performed By: #### I NSULIN #### [facility] [address] [place] [address] Dr. Saray Souza Urea nitrogen [Mass/Vol] 10.0 mg/dL Normal 7.0-18.0 [facility] Comment on above: Performed By: #### I NSULIN #### [facility] [address] [place] [address] Dr. Saray Souza Urea nitrogen/Creatinine [Mass ratio] 14.5 mg/mg Normal [facility] Comment on above: Performed By: #### I NSULIN #### [facility] [address] [place] [address] Dr. Saray Souza TSHon 02-13-2023 TSH 2.745 uIU/mL Normal 0.358-3.740 [facility] Comment on above: Performed By: #### I NSULIN #### [facility] [address] [place] [address] Dr. Saray Souza AMYLASEon 02-04-2023 Amylase [Catalytic activity/Vol] 45 U/L Normal 25-115 [facility] Comment on above: Performed By: #### T SH, CMP, HSTROPN, LIPA, KELLE #### [facility] [address] [place] [address] Dr. Saray Souza CBC AUTO DIFFon 02-04-2023 BASO # 0.0 103/ul Normal 0.0-0.1 [facility] Comment on above: Performed By: #### C BC #### [facility] [address] [place] [address] Dr. Saray Souza Basophils/100 WBC (Bld) 0.4 % Normal 0.2-2.0 [facility] Comment on above: Performed By: #### C BC #### [facility] [address] [place] [address] Dr. Saray Souza EO # 0.1 103/ul Normal 0.0-0.7 [facility] Comment on above: Performed By: #### C BC #### [facility] [address] [place] [address] Dr. Saray Souza Eosinophils/100 WBC (Bld) 1.7 % Normal 0.9-7.0 [facility] Comment on above: Performed By: #### C BC #### [facility] [address] [place] [address] Dr. Saray Souza Erythrocyte distribution width (RBC) [Ratio] 12.0 % Normal 11.0-15.0 [facility] Comment on above: Performed By: #### C BC #### [facility] [address] [place] [address] Dr. Saray Souza Hematocrit (Bld) [Volume fraction] 42.3 % Normal 36.0-48.0 [facility] Comment on above: Performed By: #### C BC #### [facility] [address] [place] [address] Dr. Saray Souza Hemoglobin (Bld) [Mass/Vol] 13.9 g/dL Normal 12.0-16.0 [facility] Comment on above: Performed By: #### C BC #### [facility] [address] [place] [address] Dr. Saray Souza IG # 0.03 10e3/ul Normal 0.00-0.03 [facility] Comment on above: Performed By: #### C BC #### [facility] [address] [place] [address] Dr. Saray Souza IG % 0.4 % Normal 0.0-0.5 [facility] Comment on above: Performed By: #### C BC #### [facility] [address] [place] [address] Dr. Saray Souza LYMPH # 1.5 103/ul Normal 1.2-3.8 [facility] Comment on above: Performed By: #### C BC #### [facility] [address] [place] [address] Dr. Saray Souza Lymphocytes/100 WBC (Bld) 20.4 % Critically low 20.5-60.0 [facility] Comment on above: Performed By: #### C BC #### [facility] [address] [place] [address] Dr. Saray Souza MANUAL DIFF REQ NO Normal [facility] Comment on above: Performed By: #### C BC #### [facility] [address] [place] [address] Dr. Saray Souza MCH (RBC) [Entitic mass] 30.0 pg Normal 26.7-34.0 [facility] Comment on above: Performed By: #### C BC #### [facility] [address] [place] [address] Dr. Saray Souza MCHC (RBC) [Mass/Vol] 32.9 g/dL Normal 29.9-35.2 [facility] Comment on above: Performed By: #### C BC #### [facility] [address] [place] [address] Dr. Saray Souza MCV (RBC) [Entitic vol] 91.2 fL Normal 81.0-99.0 [facility] Comment on above: Performed By: #### C BC #### [facility] [address] [place] [address] Dr. Saray Souza MONO # 0.6 103/ul Normal 0.3-0.8 [facility] Comment on above: Performed By: #### C BC #### [facility] [address] [place] [address] Dr. Saray Souza Monocytes/100 WBC (Bld) 7.7 % Normal 1.7-12.0 [facility] Comment on above: Performed By: #### C BC #### [facility] [address] [place] [address] Dr. Saray Souza NEUT # 5.2 103/ul Normal 1.4-6.5 [facility] Comment on above: Performed By: #### C BC #### [facility] [address] [place] [address] Dr. Saray Souza Neutrophils/100 WBC (Bld) 69.4 % Normal 43.0-75.0 [facility] Comment on above: Performed By: #### C BC #### [facility] [address] [place] [address] Dr. Saray Souza Platelet mean volume (Bld) [Entitic vol] 9.0 fL Critically low 9.5-13.5 [facility] Comment on above: Performed By: #### C BC #### [facility] [address] [place] [address] Dr. Saray Souza PLT 292 103/ul Normal 150-450 [facility] Comment on above: Performed By: #### C BC #### [facility] [address] [place] [address] Dr. Saray Souza RBC 4.64 106/ul Normal 4.20-5.40 [facility] Comment on above: Performed By: #### C BC #### [facility] [address] [place] [address] Dr. Saray Souza WBC 7.5 103/ul Normal 4.0-11.0 [facility] Comment on above: Performed By: #### C BC #### [facility] [address] [place] [address] Dr. Saray Souza CULTURE URINEon 02-04-2023 CULTURE URINE Culture Observations : LIGHT GROWTH OF MIXED GENITAL CARMELO. NO POTENTIAL PATHOGENS SEEN. Normal [facility] Comment on above: Performed By: #### C BC #### [facility] [address] [place] [address] Dr. Saray Souza ER URINE PROFILEon 3 Bilirubin Ql (U) Negative Normal NEGATIVE [facility] Comment on above: Performed By: #### C BC #### [facility] [address] [place] [address] Dr. Saray Souza Clarity (U) CLEAR Normal CLEAR [facility] Comment on above: Performed By: #### C BC #### [facility] [address] [place] [address] Dr. Saray Souza Color (U) LT. YELLOW Normal YELLOW [facility] Comment on above: Performed By: #### C BC #### [facility] [address] [place] [address] Dr. Saray JHA A micrscopic examination will be performed if indicated. Normal [facility] Comment on above: Performed By: #### C BC #### [facility] [address] [place] [address] Dr. Saray Souza Glucose Ql (U) Negative Normal NEGATIVE [facility] Comment on above: Performed By: #### C BC #### [facility] [address] [place] [address] Dr. Saray Souza Hemoglobin Ql (U) Negative Normal NEGATIVE [facility] Comment on above: Performed By: #### C BC #### [facility] [address] [place] [address] Dr. Saray Souza Ketones Ql (U) Negative Normal NEGATIVE [facility] Comment on above: Performed By: #### C BC #### [facility] [address] [place] [address] Dr. Saray Souza LEUKOCYTES MODERATE Abnormal NEGATIVE [facility] Comment on above: Performed By: #### C BC #### [facility] [address] [place] [address] Dr. Saray Souza Nitrite Ql (U) Negative Normal NEGATIVE [facility] Comment on above: Performed By: #### C BC #### [facility] [address] [place] [address] Dr. Saray Souza pH (U) 5.5 [pH] Normal 5-9 [facility] Comment on above: Performed By: #### C BC #### [facility] [address] [place] [address] Dr. Saray Souza SPEC GRAVITY >=1.030 Abnormal 1.005-<=1.025 [facility] Comment on above: Performed By: #### C BC #### [facility] [address] [place] [address] Dr. Saray Souza UA PROTEIN Negative Normal NEGATIVE/ TRACE [facility] Comment on above: Performed By: #### C BC #### [facility] [address] [place] [address] Dr. Saray Souza UR MICRO IND INDICATED Normal [facility] Comment on above: Performed By: #### C BC #### [facility] [address] [place] [address] Dr. Saray Souza Urobilinogen Qn (U) 0.2 {Janine'U}/dL Normal 0.2 - 1. 0 [facility] Comment on above: Performed By: #### C BC #### [facility] [address] [place] [address] Dr. Saray Souza LIPASEon 02-04-2023 Lipase [Catalytic activity/Vol] 97.0 U/L Normal 73.0-393.0 [facility] Comment on above: Performed By: #### T SH, CMP, HSTROPN, LIPA, KELLE #### [facility] [address] [place] [address] Dr. Saray Souza URon 02-04-2023 , QUAL Negative Normal NEGATIVE [facility] Comment on above: Performed By: #### C BC #### [facility] [address] [place] [address] Dr. Saray Souza PROF 14(COMP METB)on 023 Albumin [Mass/Vol] 3.5 g/dL Normal 3.4-5.0 [facility] Comment on above: Performed By: #### T SH, CMP, HSTROPN, LIPA, KELLE #### [facility] [address] [place] [address] Dr. Saray Souza Albumin/Globulin [Mass ratio] 1.2 {ratio} Normal [facility] Comment on above: Performed By: #### T SH, CMP, HSTROPN, LIPA, KELLE #### [facility] [address] [place] [address] Dr. Saray Souza ALP [Catalytic activity/Vol] 78 U/L Normal 46-116 [facility] Comment on above: Performed By: #### T SH, CMP, HSTROPN, LIPA, KELLE #### [facility] [address] [place] [address] Dr. Saray Souza ALT [Catalytic activity/Vol] 24 U/L Normal 14-59 [facility] Comment on above: Performed By: #### T SH, CMP, HSTROPN, LIPA, KELLE #### [facility] [address] [address] [address] Saray Souza Anion gap [Moles/Vol] 7.9 mmol/L Normal [facility] Comment on above: Performed By: #### T SH, CMP, HSTROPN, LIPA, KELLE #### [facility] [address] [place] [address] Dr. Saray Souza AST [Catalytic activity/Vol] 16 U/L Normal 15-37 [facility] Comment on above: Performed By: #### T SH, CMP, HSTROPN, LIPA, KELEL #### [facility] [address] [place] [address] Dr. Saray Souza Bilirubin [Mass/Vol] 0.3 mg/dL Normal 0.2-1.0 [facility] Comment on above: Performed By: #### T SH, CMP, HSTROPN, LIPA, KELLE #### [facility] [address] [place] [address] Dr. aSray Souza Calcium [Mass/Vol] 8.6 mg/dL Normal 8.5-10.1 [facility] Comment on above: Performed By: #### T SH, CMP, HSTROPN, LIPA, KELLE #### [facility] [address] [place] [address] Dr. Saray Souza Chloride [Moles/Vol] 105 mmol/L Normal 98-107 [facility] Comment on above: Performed By: #### T SH, CMP, HSTROPN, LIPA, KELLE #### [facility] [address] [place] [address] Dr. Saray Souza CO2 [Moles/Vol] 28.9 mmol/L Normal 21.0-32.[address] [facility] Comment on above: Performed By: #### T SH, CMP, HSTROPN, LIPA, KELLE #### [facility] [address] [place] [address] Dr. Saray Souza Creatinine [Mass/Vol] 0.67 mg/dL Normal 0.55-1.02 [facility] Comment on above: Performed By: #### T SH, CMP, HSTROPN, LIPA, KELLE #### [facility] [address] [place] [address] Dr. Saray Souza EGFR-AF DUTCH >60 Normal >=60 [facility] Comment on above: Performed By: #### T SH, CMP, HSTROPN, LIPA, KELLE #### [facility] [address] [place] [address] Dr. Saray Souza EGFR-NON AF DUTCH >60 Normal >=60 [facility] Comment on above: Performed By: #### T SH, CMP, HSTROPN, LIPA, KELLE #### [facility] [address] [place] [address] Dr. Saray Souza Globulin (S) [Mass/Vol] 3.0 g/dL Normal [facility] Comment on above: Performed By: #### T SH, CMP, HSTROPN, LIPA, KELLE #### [facility] [address] [place] [address] Dr. Saray Souza Glucose [Mass/Vol] 97 mg/dL Normal 74-106 [facility] Comment on above: Performed By: #### T SH, CMP, HSTROPN, LIPA, KELLE #### [facility] [address] [place] [address] Dr. Saray Souza Potassium [Moles/Vol] 3.8 mmol/L Normal 3.5-5.1 [facility] Comment on above: Performed By: #### T SH, CMP, HSTROPN, LIPA, KELLE #### [facility] [address] [place] [address] Dr. Saray Souza Protein [Mass/Vol] 6.5 g/dL Normal 6.4-8.2 [facility] Comment on above: Performed By: #### T SH, CMP, HSTROPN, LIPA, KELLE #### [facility] [address] [place] [address] Dr. Saray Souza Sodium [Moles/Vol] 138 mmol/L Normal 136-145 [facility] Comment on above: Performed By: #### T SH, CMP, HSTROPN, LIPA, KELLE #### [facility] [address] [address] [address] Saray Souza Urea nitrogen [Mass/Vol] 13.0 mg/dL Normal 7.0-18.0 [facility] Comment on above: Performed By: #### T SH, CMP, HSTROPN, LIPA, KELLE #### [facility] [address] [address] [address] Saray Souza Urea nitrogen/Creatinine [Mass ratio] 19.4 mg/mg Normal [facility] Comment on above: Performed By: #### T SH, CMP, HSTROPN, LIPA, KELLE #### [facility] [address] [place] [address] Dr. Saray Souza TROPONIN, HIGH SENSITIVITYon 02-04-2023 HSTROP 4.0 pg/mL Normal 4.0-51.3 [facility] Comment on above: Result Comment: CUT- OFF POINTS HAVE BEEN ESTABLISHED BASED ON THE FOURTH UNIVERSAL DEFINITIONS OF MYOCARDIAL INFARCTION. THE UPPER REFERENCE LIMIT (URL) OF TROPONIN, DEFINED THE 99TH PERCENTILE OF cTnI DISTRIBUTION IN A REFERENCE POPULATION, HAS BEEN CONFIRMED THE DECISION THRESHOLD FOR HI DIAGNOSIS. Performed By: #### T SH, CMP, HSTROPN, LIPA, KELLE #### [facility] [address] [place] [address] Dr. Saray Souza TSHon 02-04-2023 TSH 2.478 uIU/mL Normal 0.358-3.740 [facility] Comment on above: Performed By: #### T SH, CMP, HSTROPN, LIPA, KELLE #### [facility] [address] [place] [address] Dr. Saray Souza URINE MICROSCOPIC ONLYon BACTERIA MODERATE Abnormal NONE SEEN [facility] Comment on above: Performed By: #### C BC #### [facility] [address] [place] [address] Dr. Saray Souza Bacteria identified Cx Nom (U) INDICATED Normal [facility] Comment on above: Performed By: #### C BC #### [facility] [address] [place] [address] Dr. Saray Souza CAST NONE SEEN Normal NONE SEEN [facility] Comment on above: Performed By: #### C BC #### [facility] [address] [place] [address] Dr. Saray Souza Crystals LM Nom (Urine sed) NONE SEEN Normal NONE SEEN [facility] Comment on above: Performed By: #### C BC #### [facility] [address] [place] [address] Dr. Saray Souza Epithelial cells LM Ql (Urine sed) MODERATE Abnormal NONE SEEN /RARE [facility] Comment on above: Performed By: #### C BC #### [facility] [address] [place] [address] Dr. Saray Souza MUCOUS NONE SEEN Normal NONE SEEN [facility] Comment on above: Performed By: #### C BC #### [facility] [address] [place] [address] Dr. Saray Souza RBC 5-10 Abnormal 0-2 [facility] Comment on above: Performed By: #### C BC #### [facility] [address] [place] [address] Dr. Saray Souza WBC 10-20 Abnormal NONE SEEN [facility] Comment on above: Performed By: #### C BC #### [facility] [address] [place] [address] Dr. Saray Souza [facility] SARS-CoV-2 (COVID-19) RNA DAYDAY+probe Ql (Unsp spec) Not detected Normal NOT DETECTED [facility] Comment on above: Result Comment: When [...] for this test is supported by the [place] of Health and Human Service's declaration that [...] used). Performed By: #### C BC #### [facility] [address] [place] [address] Dr. Saray Souza INFLUENZA A AND B AGon 10-20 INFLUANEGH SEE BELOW Normal [facility] Comment on above: Result Comment: Nega tive for Flu A protein angiten. Infection due to Flu A cannot be ruled out. Flu A angiten in the sample may be below the detection limit of the test. Performed By: #### C BC #### [facility] [address] [place] [address] Dr. Saray Souza INFLUBNEGH SEE BELOW Normal [facility] Comment on above: Result Comment: Nega tive for Flu B protein antigen. Infection due to Flu B cannot be ruled out. Flu B antigen in the sample may be below the detection limit of the test. Performed By: #### C BC #### [facility] [address] [place] [address] Dr. Saray Souza INFLUENZA A AG Negative Normal NEGATIVE SEE COMMENT [facility] Comment on above: Performed By: #### C BC #### [facility] [address] [place] [address] Dr. Saray Souza INFLUENZA B AG Negative Normal NEGATIVE SEE COMMENT [facility] Comment on above: Performed By: #### C BC #### [facility] [address] [place] [address] Dr. Saray Souza INTERNAL CONTROLS Within Normal Limits Normal Wi thin Normal Limits [facility] Comment on above: Performed By: #### C BC #### [facility] [address] [place] [address] Dr. Saray Souza STREPT SCREENon 10-20-2022 STREP SCREEN A Positive Abnormal NEGATIVE [facility] Comment on above: Performed By: #### C BC #### [facility] [address] [address] [address] Saray Souza XR SHOULDER RT INJon [...] by: ADRIANA MENDEZ Date: 2022-07-18 17:05 Normal [facility] MRI SHOULDER RT WO CONon MRI SHOULDER [...] by: ADRIANA MENDEZ Date: 2022-07-10 10:10 Normal [facility] XR ARTHRO SHLD RTon 07-10-20 XR ARTHRO SHLD RT EXAMINATION: XR ARTHRO SHLD RT HISTORY: Impingement syndrome of right [...] No visible extension of contrast into the subacromial-subdeltoi d bursa at this time. OTHER: Negative. IMPRESSION: 1. Technically successful arthrogram without complication. 2. Please see separate MRI arthrogram report. Electronically authenticated by: ADRIANA MENDEZ Date: 2022-07-10 10:01 Normal [facility] No Panel Informationon 03-18 Right Eye Reliability was good. Findings include normal observations. Left Eye Reliability was good. Findings include normal observations. Notes I personally reviewed the visual zaldivar performed by this patient on 03/18/22. The visual zaldivar are normal OU with good fixation. Francisco Ayers MD [facility] Radiology Study observation (narrative) [facility] Progress Noteson 03-18-2022 [employer] Authentication Interface Message Text Referred by Retina [...] Hair) regarding headaches-- will fax information to [phone] - Offered referral to neurology, patient prefers to talk to Dr. Ashton first - Follow-up 1 year Estella Guerrero [...] her PCP. Francisco Ayers MD Normal [facility] Vital Signs Date Time Vital Sign Value Performing Clinician Facility 12-05-2024 15:49-0500 Body mass index (BMI) [Ratio] 45.92 kg/m2 Graham Dante DO Work Phone: [facility] 12-05-2024 15:49-0500 Body weight 145.15 kg [facility] Work Phone: [facility] 12-05-2024 15:49-0500 Diastolic blood pressure 70 mm[Hg] Graham Dante DO Work Phone: [facility] 12-05-2024 15:49-0500 Systolic blood pressure 120 mm[Hg] Graham Dante DO Work Phone: [facility] 12-02-2024 19:42-0500 Diastolic blood pressure 80 mm[Hg] Nic Estevez MD Work Phone: [facility] [employer] 12-02-2024 19:42-0500 Systolic blood pressure 122 mm[Hg] Nic Estevez MD Work Phone: [facility] [employer] 12-02-2024 19:40-0500 Body temperature 99.39 [degF] Nic Estevez MD Work Phone: [facility] [employer] 12-02-2024 19:38-0500 Heart rate 105 /min Nic Estevez MD Work Phone: [facility] [employer] 12-02-2024 19:38-0500 Respiratory rate 18 /min Nic Estevez MD Work Phone: [facility] [employer] 12-02-2024 19:38-0500 SaO2% (BldA) [Mass fraction] 99 % Nic Estevez MD Work Phone: [facility] [employer] 11-03-2024 13:25-0500 Body mass index (BMI) [Ratio] 46.4 kg/m2 Nom Nurse [facility] 11-03-2024 13:25-0500 Body weight 146.69 kg [facility] Nurse [facility] 08-29-2024 10:53-0400 Body mass index (BMI) [Ratio] 45.89 kg/m2 Kelle BAE Work Phone: [facility] 08-29-2024 10:53-0400 Body weight 145.06 kg Kelle BAE Work Phone: [facility] 08-29-2024 10:53-0400 Diastolic blood pressure 70 mm[Hg] Kelle BAE Work Phone: [facility] 08-29-2024 10:53-0400 Systolic blood pressure 120 mm[Hg] Kelle Enriquezey PA Work Phone: [facility] 07-26-2024 08:36-0400 Body height 177.8 cm Kelle Melany PA Work Phone: [facility] 07-26-2024 08:36-0400 Body mass index (BMI) [Ratio] 46.06 kg/m2 Kelle Okabena PA Work Phone: [facility] 07-26-2024 08:36-0400 Body weight 145.6 kg Kelle Okabena PA Work Phone: [facility] 07-26-2024 08:36-0400 Diastolic blood pressure 84 mm[Hg] Kelle Okabena PA Work Phone: [facility] 07-26-2024 08:36-0400 Systolic blood pressure 130 mm[Hg] Kelle Okabena PA Work Phone: [facility] 2024 09:04-0400 Blood Pressure Location JANNETHKARLIE SMITH [facility] 2024 09:04-0400 Diastolic blood pressure 82 mm[Hg] JANNETH LUIS [facility] 2024 09:04-0400 Heart rate 74 /min JANNETH LUIS [facility] 2024 09:04-0400 Respiratory rate 16 /min JANNETH LUIS [facility] 2024 09:04-0400 Systolic blood pressure 125 mm[Hg] JANNETH LUIS [facility] 03-08-2024 14:09-0400 Blood Pressure Location Yonis MIRANDA [facility] [place] 03-08-2024 14:09-0400 Diastolic blood pressure 84 mm[Hg] Yonis NILL [facility] [place] 03-08-2024 14:09-0400 Heart rate 76 /min Yonis NILL [facility] [place] 03-08-2024 14:09-0400 Respiratory rate 16 /min Yonis NILL [facility] [place] 03-08-2024 14:09-0400 Systolic blood pressure 118 mm[Hg] Yonis NILL [facility] [place] 01-19-2024 09:34-0500 Blood Pressure Location JANNETH MADRIGALRY [facility] 01-19-2024 09:34-0500 Diastolic blood pressure 84 mm[Hg] JANNETH LUIS [facility] 01-19-2024 09:34-0500 Heart rate 80 /min JANNETH LUIS [facility] 01-19-2024 09:34-0500 Respiratory rate 16 /min JANNETH LUIS [facility] 01-19-2024 09:34-0500 Systolic blood pressure 132 mm[Hg] JANNETH LUIS [facility] 12-02-2023 08:40-0500 Body height 180.34 cm Taniya Mary Grace Other [employer] Other 12-02-2023 08:40-0500 Body mass index (BMI) [Ratio] 45.1 kg/m2 Taniya Mary Grace Other [employer] Other 01-10-2024 08:40-0500 Body temperature 97.5 [degF] Taniya Mary Grace Other [facility] Other 12-02-2023 08:40-0500 Body weight 146.69 kg Taniya Mary Grace Other [facility] Other 12-02-2023 08:40-0500 Diastolic blood pressure 83 mm[Hg] Taniya Mary Grace Other [employer] Other 12-02-2023 08:40-0500 Respiratory rate 18 /min Taniya Mary Grace Other [employer] Other 12-02-2023 08:40-0500 SaO2% (BldA) [Mass fraction] 98 % Taniya Mary Grace Other [facility] Other 12-02-2023 08:40-0500 Systolic blood pressure 136 mm[Hg] Taniya Mary Grace Other [facility] Other 11-19-2021 15:30-0500 Body height 180.34 cm Nandini Muñozlaya Other [employer] Other 11-19-2021 15:30-0500 Body mass index (BMI) [Ratio] 41.56 kg/m2 Nandini Pantoja Other [employer] Other 11-19-2021 15:30-0500 Body weight 135.17 kg Nandini Pantoja Other [facility] Other 11-19-2021 15:30-0500 Diastolic blood pressure 76 mm[Hg] Nandini Pantoja Other [employer] Other 11-19-2021 15:30-0500 Systolic blood pressure 128 mm[Hg] Nandini Pantoja Other [employer] Other Encounters Encounter Date Encounter Type Care Provider Facility Start: 12-05-2024 End: 12-05-2024 Office outpatient visit 15 minutes Graham Dnate DO Work Phone: [facility] Comment on above: 14 weeks gestation o f ; Second trimester ; Herpes zoster without complication Start: 12-05-2024 End: 12-05-2024 ambulatory GRAHAM DANTE Not Available Start: 12-05-2024 End: 12-05-2024 Bamboo flowsheet Graham Dante DO Work Phone: [facility] Start: 12-05-2024 End: 12-05-2024 Bamboo flowsheet Graham Dante DO Work Phone: [facility] Start: 12-02-2024 End: 12-02-2024 Emergency department patient visit Nic Estevez MD Work Phone: [facility] Comment on above: Abdominal cramping, bilateral lower quadrant (Primary Dx) Start: 11-25-2024 End: 11-25-2024 ambulatory JANNETH Mary Lou SMITH Facility:[facility] Start: 11-25-2024 End: 11-25-2024 Patient encounter procedure JANNETH SMITH [facility] Start: 11-03-2024 End: 11-03-2024 Office outpatient visit 5 minutes [facility] Dante Nurse [facility] Comment on above: GA: 9w3d Start: 11-03-2024 End: 11-03-2024 ambulatory GRAHAM DANTE Not Available Start: 10-27-2024 End: 10-27-2024 ambulatory JANNETH Mary Lou SMITH Facility:[facility] Start: 10-27-2024 End: 10-27-2024 Patient encounter procedure JANNETH SMITH [facility] Start: 09-28-2024 End: 09-28-2024 Clinisync Result Encounter Graham Dante DO Work Phone: [facility] Unsolicited Start: 09-28-2024 End: 09-28-2024 Clinisync Result Encounter Graham Dante DO Work Phone: [facility] Unsolicited Start: 08-29-2024 End: 08-29-2024 Bamboo flowsheet Kelle Okabena PA Work Phone: [facility] Start: 08-29-2024 End: 08-29-2024 Bamboo flowsheet Kelle Melany PA Work Phone: [facility] Start: 08-29-2024 End: 08-29-2024 Office outpatient visit 15 minutes Kelle Melany PA Work Phone: [facility] Comment on above: Encounter for weight management Start: 08-29-2024 End: 08-29-2024 ambulatory KELLE MELANY Not Available Start: 07-26-2024 End: 07-26-2024 Bamboo flowsheet Kelle Okabena PA Work Phone: [facility] Start: 07-26-2024 End: 07-26-2024 Bamboo flowsheet Kelle Melany PA Work Phone: [facility] Start: 07-26-2024 End: 07-26-2024 Office outpatient visit 5 minutes Kelle Melany PA Work Phone: [facility] Comment on above: Encounter for weight management Start: 07-26-2024 End: 07-26-2024 ambulatory KELLE MELANY Not Available Start: 06-27-2024 End: 06-27-2024 ambulatory GRAHAM DANTE Not Available Start: 05-30-2024 End: 05-30-2024 ambulatory GRAHAM DANTE Not Available Start: 2024 End: 2024 ambulatory Yonis MIRANDA Facility: [facility] Start: 2024 End: 2024 Patient encounter procedure JANNETH SMITH [facility] Start: 04-27-2024 End: 04-27-2024 ambulatory MD Shashi Ashton Work Phone: [facility] Work Phone: Start: 04-27-2024 End: 04-27-2024 Departed Referred MD Shashi Ashton Work Phone: [facility] Start: 04-27-2024 End: 04-27-2024 ambulatory Yonis R LOGANL Facility:[id number] Start: 03-08-2024 End: 03-08-2024 ambulatory Yonis FORDL Facility:[facility] Start: 03-08-2024 End: 03-08-2024 Patient encounter procedure Yonis FORDL [facility] [place] Start: 02-09-2024 End: 02-09-2024 ambulatory Dieter REMY [facility] Start: 02-09-2024 End: 02-09-2024 Patient encounter procedure Dieter REMY [facility] Start: 01-19-2024 End: 01-19-2024 ambulatory JANNETH SMITH [facility] Start: 01-19-2024 End: 01-19-2024 Lab Drop off JANNETH SMITH [facility] Start: 01-19-2024 End: 01-19-2024 ambulatory JANNETH SMITH Facility:[facility] Start: 01-19-2024 End: 01-19-2024 Patient encounter procedure JANNETH SMITH [facility] [place] Start: 12-31-2023 ambulatory Yonis MIRANDA Facility:[facility] Start: 12-17-2023 End: 12-17-2023 ambulatory Taniya Mary Grace Other [employer] Other Start: 12-17-2023 Office outpatient visit 15 minutes Taniya Mary Grace [facility] Start: 12-07-2023 End: 12-07-2023 ambulatory Taniya Mary Grace Other [employer] Other Start: 12-07-2023 Telephone encounter Taniya Mary Grace [facility] Start: 12-02-2023 End: 12-02-2023 ambulatory Taniya Mary Grace Other [facility] Other Start: 12-02-2023 Office outpatient ne w 30 minutes Taniya Mary Grace [facility] Start: 04-17-2023 End: 04-17-2023 ambulatory SALMA DIAB . Facility:[facility] Start: 04-06-2023 End: 04-07-[address] SHASHI ASHTON . Facility:[facility] Start: 04-04-2023 Encounter for genera l adult medical examination without abnormal findings DR SHASHI ASHTON . [facility] Start: 04-03-2023 End: 04-04-[address] SHASHI ASHTON . Facility:[facility] Start: 04-01-2023 End: 04-02-[address] SHASHI ASHTON . Facility:[facility] Start: 04-01-2023 End: 04-02-2023 Encounter for general adult medical examination without abnormal findings DR SHASHI ASHTON . Facility:[facility] Start: 02-13-2023 End: 02-14-[address] SHASHI ASHTON . Facility:[facility] Start: 02-04-2023 End: 02-04-2023 ambulatory ELLIS TOLEDO Facility:[facility] Start: 10-20-2022 End: 10-20-2022 ambulatory DANIEL CELAYA Facility:[facility] Start: 08-05-2022 End: 08-05-2022 ambulatory JETHRO GRIFFITH Facility:[facility] Start: 07-18-2022 End: 07-18-[address] SHASHI ASHTON . Facility:[facility] Start: 07-10-2022 End: 07-10-[address] SHASHI ASHTON . Facility:[facility] Start: 06-03-2022 End: 06-24-[address] SHASHI ASHTON . Facility:[facility] Start: 05-13-2022 End: 05-14-[address] SHASHI ASHTON . Facility:[facility] Start: 03-18-2022 End: 03-18-2022 ambulatory UNKNOWN PROVIDER Facility:[facility] Start: 11-19-2021 End: 11-19-2021 ambulatory Nandini Pantoja Other [employer] Other Start: 11-19-2021 Office outpatient ne w 30 minutes Nandini Pantoja [facility] Gastroenterology Procedures Date Procedure Procedure Detail Performing Clinician Start: 12-05-2024 Urnls dip stick/tabl et rgnt non-auto w/o micrscp Graham Dante DO Work Phone: Start: 12-02-2024 Us uterus 1 4 wk transabdl 11/23 gestat Nic Estevez MD Work Phone: Start: 12-02-2024 Ecg routine ecg w/le ast 12 lds w/i&r Nic Estevez MD Work Phone: Start: 12-02-2024 Urinalysis microscop ic only Nic Estevez MD Work Phone: Start: 12-02-2024 Urnls dip stick/tabl et rgnt auto w/o microscopy Nic Estevez MD Work Phone: Start: 12-02-2024 Basic metabolic pane l calcium total Nic Estevez MD Work Phone: Start: 12-02-2024 Hepatic function panel Nic Estevez MD Work Phone: Start: 11-03-2024 End: 11-03-2024 Urnls dip stick/tablet rgnt non-auto w/o micrscp Graham Dante DO Work Phone: Start: 09-28-2024 ALL CBC WITH AUTO DIFF Graham Dante DO Work Phone: Start: 04-29-2024 Colonoscopy JANNETH SOMMERSGerman Start: 02-09-2024 Cystoscopy JANNETH MCKEON Start: 07-09-2023 [...] (Primary Dx) Start: 10-02-2021 Laparoscopic cholecystectomy JANNETH SMITH Start: 12-20-2018 Microscopic observat ion [Identifier] in Cervix by Cyto stain Nic Estevez MD Work Phone: Start: 07-09-2016 Colonoscopy Yonis KEE Colonoscopy JANNETH SMITH Fasciotomy of foot JANNETH SMITH Comment on above: left Hallux valgus correc tion by phalanx osteotomy JANNETH SMITH Hammer toe operation ALFONSO SMITH Left salpingo-oophorectomy JANNETH SMITH Plan of Treatment Date Care Activity Detail Author Start: 2043 Shingles (RZV) Vacci ne (1 of 2) Shingles (RZV) Vaccine (1 of 2) [facility] Start: 07-09-2028 Screening for malign ant neoplasm of cervix [facility] Start: 01-04-2025 End: 01-04-2025 Patient encounter procedure 01/04/2025 3:30 PM EST Routine [facility] [address] [place] [address] Kelle Mosley, PA [address] [place] [address] [facility] Start: 12-05-2024 End: 12-05-2024 Patient encounter procedure [facility] Comment on above: Arrived Start: 11-28-2024 End: 11-28-2024 Patient encounter procedure 11/28/2024 9:30 AM EST Office Visit [facility] [address] [place] [phone] Kelle Mosley, PA [address] [place] [address] [facility] Start: 11-03-2024 End: 11-03-2025 ABO/Rh ABO/Rh Lab Routine Missed menses , unspecified gestational age Expected: 11/03/2024 (Approximate), Expires: 11/03/2025 [facility] Comment on above: Expected: 11/03/2024 (Approximate), Expires: 11/03/2025 Start: 11-03-2024 End: 11-03-2025 Blood type and Indirect antibody screen panel - Blood Type and screen Lab Routine Missed menses , unspecified gestational age Expected: 11/03/2024 (Approximate), Expires: 11/03/2025 [facility] Work Phone: Comment on above: Expected: 11/03/2024 (Approximate), Expires: 11/03/2025 Start: 11-03-2024 End: 11-03-2025 Drugs of abuse panel - Urine by Screen method Rapid drug screen, urine Lab Routine , unspecified gestational age Encounter for supervision of normal first in first trimester Expected: 11/03/2024 (Approximate), Expires: 11/03/2025 [facility] Comment on above: Expected: 11/03/2024 (Approximate), Expires: 11/03/2025 Start: 11-03-2024 End: 11-03-2024 ambulatory 11/03/2024 1:00 PM EST Initial [facility] [address] [place] [address] [facility] Start: 11-03-2024 End: 11-03-2024 Professional / ancillary services management 11/03/2024 12:30 PM EST Ancillary Procedure [facility] [address] [place] [address] [facility] Start: 08-29-2024 End: 08-29-2024 Patient encounter procedure 08/29/2024 10:50 AM EDT Office Visit [facility] [address] [facility] [place] [address] Kelle Mosley, PA [address] [place], [place] [id number] Arrived [facility] Comment on above: Arrived Start: 07-26-2024 End: 07-26-2024 Patient encounter procedure 07/26/2024 8:30 AM EDT Office Visit [facility] [address] [place] [address] Kelle Mosley, PA [address] [place] [address] [place] [address] Arrived [facility] Comment on above: Arrived Start: 07-24-2024 COVID-19 Vaccine ( season) COVID-19 Vaccine ( season) [facility] Start: 07-24-2024 Influenza vaccination Influenza Vacc ine (#1) [facility] Start: 06-23-2024 Influenza vaccination Flu vaccine (# 1) [facility] Start: 2023 Screening for malign ant neoplasm of cervix [facility] Start: 12-20-2021 Screening for malign ant neoplasm of cervix Pap smear [facility] Start: 2014 Screening for malign ant neoplasm of cervix Pap Smear [facility] Start: 2012 DTaP/Tdap/Td vaccine (1 - Tdap) DTaP/Tdap/Td vaccine (1 - Tdap) [facility] Start: 2012 Hepatitis B vaccine (1 of 3 - 19+ 3-dose series) Hepatitis B vaccine (1 of 3 - 19+ 3-dose series) [facility] Start: 2011 [facility]atitis C screening [facility] Start: 2011 Tetanus + diphtheria + acellular pertussis vaccine (product) Tdap Booster [facility] Start: 2008 HIV screening HIV Test [facility] Start: 2006 Varicella vaccine (1 of 2 - 13+ 2-dose series) Varicella vaccine (1 of 2 - 13+ 2-dose series) [facility] Start: 2005 Depression Screen Depression Screen [facility] Start: 1998 COVID-19 Vaccine (1) COVID-19 Vaccin e (1) [facility] Bacteria identified in Urine by Culture Urine culture Microbiology Routine Missed menses Ordered: 11/03/2024 [facility] Comment on above: Ordered: 11/03/2024 CBC W Auto Different ial panel - Blood CBC and differential Lab Routine Missed menses , unspecified gestational age Ordered: 11/03/2024 [facility] Comment on above: Ordered: 11/03/2024 EKG 12 Lead EKG 12 Lead ECG STAT 12/02/2024 8:08 PM EST [facility] Hemoglobin A1c/Hemoglobin.total in Blood Hemoglobin A1c Lab Routine Missed menses , unspecified gestational age Ordered: 11/03/2024 [facility] Comment on above: Ordered: 11/03/2024 Hepatitis B virus surface Ag [Presence] in Serum or Plasma by Immunoassay Hepatitis B surface antigen Lab Routine Missed menses , unspecified gestational age Ordered: 11/03/2024 [facility] Comment on above: Ordered: 11/03/2024 Hepatitis C virus Ab [Presence] in Serum or Plasma by Immunoassay Hepatitis C antibody Lab Routine Missed menses , unspecified gestational age Ordered: 11/03/2024 [facility] Comment on above: Ordered: 11/03/2024 HIV-1/HIV-2 antigen/antibody combination immunoassay HIV-1 and HIV-2 antibodies Lab Routine Missed menses , unspecified gestational age Ordered: 11/03/2024 [facility] Comment on above: Ordered: 11/03/2024 Reagin Ab [Presence] in Serum by RPR RPR Lab Routine Missed menses , unspecified gestational age Ordered: 11/03/2024 [facility] Comment on above: Ordered: 11/03/2024 Rubella antibody, IgG Rubella an tibody, IgG Lab Routine Missed menses , unspecified gestational age Ordered: 11/03/2024 [facility] Comment on above: Ordered: 11/03/2024 Immunizations Immunization Date Immunization Notes Care Provider Fa key 10-28-2022 influenza virus vaccine, unspecified formulation JANNETH SMITH [facility] 04-15-2021 SARS-CoV-2 (COVID-19 ) mRNA-1273 vaccine JANNETH SMITH [facility] 03-18-2021 SARS-CoV-2 (COVID-19 ) mRNA-1273 vaccine JANNETH LUIS [facility] 03-21-2014 influenza virus vaccine, unspecified formulation Estella Guerrero MD Work Phone: [facility] Payers Date Payer Category Payer Medicaid [employer] [place] [employer] [id number] 2017-Present [address] [address] [id number] 2017 Medicaid (Managed Care) [facility] MEDICAID [id number] 2017 Unknown [employer] [employer] MEDICAID [id number] 2017-Present [id number] 1993 Unknown [id number] 2.16.840.1.954263.3.579.2. 732 1993 Unknown [id number] 2.16.840.1.978551.3.579.2. 593 1993 Unknown [id number] 2.16.840.1.840902.3.579.2. 593 1993 Unknown [id number] 2.16.840.1.559512.3.579.2. 593 1993 Unknown [id number] 2.16.840.1.656934.3.579.2. 593 1993 Unknown [id number] 2.16.840.1.177233.3.579.2. 593 1993 Unknown [id number] 2.16.840.1.122045.3.579.2. 593 1993 Unknown [id number] 2.16.840.1.408592.3.579.2. 593 1993 Unknown [id number] 2.16.840.1.687719.3.579.2. 593 1993 Unknown [id number] 2.16.840.1.638751.3.579.2. 593 1993 Unknown [id number] 2.16.840.1.841252.3.579.2. 593 1993 Unknown [id number] 2.16.840.1.052360.3.579.2. 593 1993 Unknown [id number] 2.16.840.1.391649.3.579.2. 593 1993 Unknown [id number] 2.16.840.1.657490.3.579.2. 9 1993 Unknown [id number] 2.16.840.1.664280.3.579.2. 1259 1993 Unknown [id number] 2.16.840.1.769722.3.579.2. 125 1993 Unknown [id number] 2.16.840.1.876314.3.579.2. 173 1993 Unknown [id number] 2.16.840.1.657046.3.579.2. 1258 1993 Unknown [id number] 2.16.840.1.809129.3.579.2. 1258 1993 Unknown [id number] 2.840.1.241940.3.579.2. 1258 1993 Unknown [id number] 2.16840.1.811355.3.579.2. 1993 Unknown [id number] 2.16840.1.955984.3.579.2. 1993 Unknown [id number] 2.16840.1.471331.3.579.2. 1993 Unknown [id number] 2.16840.1.071168.3.579.2. 72 1993 Unknown [id number] 2.16840.1.363141.3.579.2. 72 1993 Unknown [id number] 2.16840.1.768059.3.579.2. 1993 Unknown [id number] 2.16840.1.991528.3.579.2. 72 1993 Unknown [id number] 2.16840.1.515790.3.579.2. 72 1993 Unknown [id number] 2.16840.1.353494.3.579.2. 727 1959 Medicaid [id number] Social History Date Type Detail Facility Tobacco smoking status NHIS Tobacco smoking consumption unknown [facility] Other Start: 1993 Sex Assigned At [facility] file [facility] Start: 02-15-2020 End: 05-23-2024 Sex Assigned At [facility] Start: 05-03-2023 End: 01-19-2024 Tobacco smoking status Never smoked tobacco (finding) [facility] Tobacco smoking status Never [facility] Start: 1993 Sex Assigned At Female F [facility] Start: 07-26-2024 End: 12-05-2024 Alcoholic beverage intake Current drinker of alcohol (finding) [facility] Start: 02-15-2020 End: 05-23-2024 History of Social function [facility] Start: 05-03-2023 Alcohol Comment 1-2 drinks les s than monthly in the past year, Caffeine intake: 2-3 cups per day [facility] Start: 09-12-2024 [facility] Start: 12-20-2018 Tobacco use and exposure Smokeless tobacco non-user [facility] Start: 02-14-2019 Alcoholic beverage intake Current non-drinker of alcohol (finding) [facility] Functional Status Date Assessment Result Facility 2024 Functional Status N/A [facility] 03-08-2024 Functional Status N/A [facility] 01-19-2024 Functional Status N/A [facility] Clinical Notes 03-18-2022 to 12-05-2024 Graham Howell DO - 12/05/2024 3:40 PM America Colon LPN - 11/03/2024 1:00 PM KATHIA Oconnell - 08/29/2024 10:50 AM ZULMATDianna Jeffrey - 07/26/2024 8:30 AM EDT Note Date & Type Note Facility 12-05-2024 History of Present illness Narrative Reason for Appointment: Patient ID: Rosalie Rodríguez is a 29 y.o. female who presents for Routine Visit Patient presents today for Return OB appointment. MEDICATIONS Current Outpatient Medications Medication Instructions sertraline (ZOLOFT) 100 mg, Daily valACYclovir (VALTREX) 500 mg, Oral, Daily ALLERGIES Allergies Allergen Reactions Wound Dressings Other Reaction(s): hives PROBLEMS Active Ambulatory Problems Diagnosis Date Noted [...] SYSTEMS Review of Systems: Review of Systems All other systems reviewed and are negative. OBJECTIVE Objective: Physical Exam Constitutional: Appearance: Normal [...] nursing note reviewed. Exam conducted with a health and safety manager present. Vitals: Estimated body mass index is 45.92 kg/m as calculated from the following: Height as of 07/26/24: 5' 10 . Weight as of this encounter: 320 lb. BP: 120/70 Patient's last menstrual period was 08/29/2024. ASSESSMENT & PLAN ICD-10-CM 1. 14 weeks gestation of Z3A.14 POCT urinalysis dipstick manually resulted 2. Second trimester Z34.92 POCT urinalysis dipstick manually resulted 3. Herpes zoster without complication B02.9 valACYclovir (Valtrex) 500 MG tablet Patient presents today for a routine obstetrics appointment. Patient is currently 14w0d with a Estimated Date of Delivery: 06/05/25. Patient voiced that she was recently diagnosed with Shingles- sent Valtrex 500mg 1PO daily to patients pharmacy. Patient to return to clinic in 4 weeks. Documented by Maxine Murillo LPN on behalf of: Graham Howell DO documented in this encounter [facility] 11-03-2024 History of Present illness Narrative Reason for Appointment: Patient ID: Rosalie Rodríguez is a 29 y.o. female who presents [...] 05/27/2023 Irritable bowel syndrome 05/27/2023 Mood disorder ([facility]) 05/27/2023 Right upper quadrant abdominal pain 05/27/2023 Scoliosis 05/27/2023 Vaginal delivery 09/06/2014 Encounter for weight management 06/27/2024 Resolved Ambulatory Problems Diagnosis Date Noted No Resolved Ambulatory Problems Past Medical History: Diagnosis Date Acne Cardiac murmur Depression ([facility]) Encounter for IUD insertion 01/02/2021 Gastritis IBS [...] or undercooked meat, and stay away from formerly [facility]. Patient has also been advised to not [...] Aleida Colon LPN documented in this encounter [facility] 08-29-2024 History of Present illness Narrative Reason for Appointment: Patient ID: Rosalie Rodríguez is a 29 y.o. female who presents [...] History: Diagnosis Date Acne Cardiac murmur Depression ([facility]) Encounter for IUD insertion 01/02/2021 Gastritis IBS (irritable bowel syndrome) Plantar fasciitis, bilateral HISTORY PAST MEDICAL HISTORY SOCIAL HISTORY Past Medical History: Diagnosis Date Acne Cardiac murmur Depression ([facility]) Encounter for IUD insertion 01/02/2021 Gastritis IBS [...] nursing note reviewed. Exam conducted with a health and safety manager present. Vitals: Estimated body mass index is [...] of: KATHIA Ledezma documented in this encounter [facility] 07-26-2024 History of Present illness Narrative Reason for Appointment: Patient ID: Rosalie Rodríguez is a 29 y.o. female who presents [...] of KATHIA Ledezma documented in this encounter [facility] 2024 Hospital Discharge instructions Patient Education [...] medicine. Follow these instructions at home: Take ruun-rmq-jryhoaw and prescription medicines as told by your [...] provider. Document Revised: 12/24/2020 Document Reviewed: 08/28/2020 [employer] Patient Education 2022 [employer]. Follow Up Care 01/19/2024 10:50:20 With:LUIS STEPHENS, JANNETH Barreto, URL Address: [facility] [address] [place] [address] [phone] When: Unknown [facility] [place] 03-10-2024 Note Chief Complaint consultation for diarrhea HPI Staff 28 year old female presents on consultation from Dr. Ashton for diarrhea. Colonoscopy completed 06/2016 with sigmoid [...] - Denies A (more content not included)... [facility] Comment on above: Result Comment: Elec tronically Signed By: RUTH CLARK, Yonis Douglas.brandon\Date and Time Signed: 03/10/24 12:35 EDT 02-09-2024 [...] degrees. Follow Up Care 01/19/2024 11:07:12 With:Dieter REMY Address: [facility] [address] , [place] [address]- Business (1) When:06/10/2024 08:33:15 Comments:With Deepthi Luis [facility] 02-09-2024 Note [id number] [facility] 02-09-2024 Note Custom Cystoscopy ? Voiding [...] you have a fever over 100 degrees. [facility] 01-19-2024 Hospital Discharge instructions Patient Education [...] including vitamins, herbs, eye drops, creams, and uqsu-ozu-hhtqtuf medicines. Any problems you or family members [...] health care provider tells you to. ?Taking fyrs-abl-uokxksd medicines, vitamins, herbs, and supplements. General instructions [...] provider. Document Revised: 02/19/2023 Document Reviewed: 02/19/2023 [employer] Patient Education 2022 [employer]. 01/19/2024 10:32:14 Urinary Tract Infection, Adult Urinary [...] Treatment for this condition includes: Antibiotic medicine. Cdig-oyy-zdzxkdt medicines to treat discomfort. Drinking enough water [...] Follow these instructions at home: Medicines Take bkvd-idv-hkgretp and prescription medicines only as told by [...] provider. Document Revised: 06/21/2021 Document Reviewed: 06/21/2021 [employer] Patient Education 2022 [employer]. Follow Up Care 01/08/2024 10:24:51 With:JANNETH SMITH PA-C, URL Address: [address] [place] [address] When: Unknown [facility] 01-19-2024 Note Chief Complaint Referral *Frequent UTI HPI Staff Evaluation requested by Dr Shashi Ashton due to UTI. Pt is a new [...] E Coli Tx'd w/ Cefdinir 300mg BID [id number] ÁLVARO 01/01/24 *No acute abnormality CTa wo/w [...] a 28 yo female referred by Dr. Ashton for chronic UTI. CMP 12/02/23 BUN 9.0, [...] yes avoids baths/hot tubs yes avoids scented [employer] products yes urinates after sexual activity yes [...] sooner obviously. -Will schedule cysto with Dr. Remy. Abx sent. The risks and benefits for (more content not included)... [facility] Comment on above: Result Comment: Elec tronically Signed By: JANNETH SMITH PA-C\.br\Date and Time Signed: 01/19/24 10:56 EST\.br\Electronically [...] her to avoid NSAIDs or any other ntfa-toi-lwdwsxf medication or high-protein supplements Nov, Renal lesion [...] and no personal patient information was compromised. [facility] Other 01-10-2024 Evaluation note* Encounter Date Diagnosis Assessment Notes Treatment Notes Treatment Clinical Notes Nov, Proteinuria (ICD-10 - R80.9) It was a pleasure to see Mrs. Rodríguez in our office for an evaluation and [...] her to avoid NSAIDs or any other odmf-sqk-jlbbwrc medication or high-protein supplements Nov, Renal lesion (ICD-10 - N28.9) She had a renal lesion of indeterminate nature on the renal ultrasound. She is ordered to have a CAT scan with contrast by the PCP. Will follow the report once done. Nov, IBS (irritable bowel syndrome) (ICD-10 - K58.9) Continue to follow with PCP for IBS management. [facility] Other 06-21-2022 NotePROCEDURE: XR SHOULDER RT 2V or > COMPARISON: None. HISTORY: Pain of right shoulder joint FINDINGS: BONES:No fracture, acute abnormality, or significant arthropathy. SOFT TISSUES:Negative. No visible soft tissue swelling. EFFUSION:None visible. OTHER: Negative. IMPRESSION: Normal examination. Electronically authenticated by: NANDINI MAYER Date: 2022-05-13 08:41[facility]04-26-2022 History of Present illness Narrative* Francisco Ayers [...] disc edema - F/u with PCP (Shashi Ashton [place]) regarding headaches-- will fax information to [phone] - Offered referral to neurology, patient prefers to talk to Dr. Ashton first - Follow-up 1 year Estella Guerrero [...] papilledema. Francisco Ayers MD documented in this [id number] History of Present illness Narrative* Francisco Ayers [...] Hair) regarding headaches-- will fax information to [phone] - Offered referral to neurology, patient prefers to talk to Dr. Ashton first - Follow-up 1 year Estella Guerrero MD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
[2024-12-23 10:18] LABS: BOX Test Sent Out UNITY
[2024-12-23 10:19] LABS: BOX Test Reference Lab UNITY
[2024-12-23 10:27] LABS: Basophils Percent Auto 0.1 % (0.2-2.0); Eosinophils Absolute Auto 0.1 10^3/uL (0.0-0.7); Hematocrit 37.6 % (36.0-48.0); Hemoglobin 12.9 g/dL (12.0-16.0); Immature Granulocytes Abs Auto 0.02 10^3/uL (0.00-0.03); Immature Granulocytes Pct Auto 0.2 % (0.0-0.5); Lymphocytes Absolute Auto 1.3 10^3/uL (1.2-3.8); Lymphocytes Percent Auto 13.2 % (20.5-60.0); Mean Corpuscular HGB Conc 34.3 g/dL (29.9-35.2); Mean Corpuscular Hemoglobin 30.6 pg (26.7-34.0); Mean Corpuscular Volume 89.3 fL (81.0-99.0); Mean Platelet Volume 8.9 fL (9.5-13.5); Monocytes Absolute Auto 0.6 10^3/uL (0.3-0.8); Monocytes Percent Auto 5.8 % (1.7-12.0); Neutrophils Absolute Auto 7.7 10^3/uL (1.4-6.5); Neutrophils Percent Auto 79.7 % (43.0-75.0); Platelet Count 246 10^3/uL (150-450); Red Blood Count 4.21 10^6/uL (4.20-5.40); Red Cell Distribution Width 12.1 % (11.0-15.0); White Blood Count 9.6 10^3/uL (4.0-11.0)
[2024-12-23 10:39] LABS: Estimated Average Glucose 100 mg/dL; Glycohemoglobin A1C 5.1 % (4.5-6.2)
[2024-12-23 10:51] LABS: Amphetamine Screen Urine NEGATIVE (NEGATIVE); Barbiturates Screen Urine NEGATIVE (NEGATIVE); Benzodiazepines Screen Urine NEGATIVE (NEGATIVE); Buprenorphine Screen Urine NEGATIVE (NEGATIVE); Cannabinoid Screen Urine NEGATIVE (NEGATIVE); Cocaine Screen Urine NEGATIVE (NEGATIVE); Methadone Screen Urine NEGATIVE (NEGATIVE); Methamphetamines Screen Urine NEGATIVE (NEGATIVE); Opiate Screen Urine NEGATIVE (NEGATIVE); Oxycodone Screen Urine NEGATIVE (NEGATIVE); Phencyclidine Screen Urine NEGATIVE (NEGATIVE); Tricyclic Antidepressant Urine NEGATIVE (NEGATIVE)
[2024-12-24 06:08] LABS: HBsAg Screen Negative (Negative); HCV Ab Non Reactive (Non Reactive); HIV Ab/p24 Ag Screen Non Reactive (Non Reactive)
[2024-12-24 10:10] LABS: Rapid Plasma Reagin, Quant Non Reactive titer (NonRea<1:1); Rubella Antibodies, IgG 0.91 index (Immune >0.99)
== END 2024-12-23 09:49 | disposition home or self-care (01) ==
LOC: LAB 09:53
PROVIDERS: PCP Family Medicine; Visit Provider Obstetrics & Gynecology
DX: Z34.01 Encounter for supervision of normal first pregnancy, first trimester (principal); Z36.0 Encounter for antenatal screening for chromosomal anomalies; N92.6 Irregular menstruation, unspecified
CPT/HCPCS: 36415; 80307; 83036; 85025; 86592; 86762; 86803; 86850; 86900; 86901; 87086; 87340; 87389

== ENCOUNTER 2024-12-27 20:18 | Outpatient (REF) | payer OTHER, SELFPAY ==
--- OUTSIDE RECORDS SUMMARY | 2024-12-27 20:22 | XMS_ITS | CCD ---
Author Organization [facility] Care Team Providers Care Gaming Cage Worker Name Role Phone Unavailable Primary Care Provider Unavailabl e PROVIDER, UNKNOWN Attending Unavailable PROVIDER, UNKNOWN Admitting Unavailable PATIENT, SELF Referring Unavailable Nandini Pantoja Unavailable DIAB ., SALMA Consulting Unavailable DIAB ., SALMA Attending Unavailable DIAB ., SALMA Admitting Unavailable HOY ., DR SEWELL Primary Care Unavailable NEITCAROL CHANCE Consulting Unavailable HOY ., DR SEWELL Consulting [...] Unavailable HOY ., DR SEWELL Admkaty Unavailable HAMPTON, DR NANDINI Stafford Consulting Unavailable HOY ., DR SEWELL Consulting Unavailable HOY ., DR SEWELL Primary Care Unavailable HOY ., DR SEWELL Attending Unavailable HOY ., DR SEWELL Admitting Unavailable HOY ., DR SEWELL Consulting Unavailable HOY ., DR SEWELL Primary Care Unavailable HOY ., DR SEWELL Attending Unavailable RAYSHAWNY ., DR SEWELL Admitting Unavailable WEST, DR NANDINI Stafford Consulting Unavailable POLI ., DR SEWELL Primary Care Unavailable RAYSHAWNY ., DR SEWELL Attending Unavailable RAYSHAWNY ., DR SEWELL Admitting Unavailable NACHO, JETHRO Consulting Unavailable NACHO, JETHRO Attending Unavailable NACHO, JETHRO Admitting Unavailable HOY ., DR SEWELL Primary Care Unavailable PARIS, ELLIS Consulting Unavailable PARIS, ELLIS Attending Unavailable PARIS, ELLIS Admitting Unavailable POLI ., DR SEWELL Primary Care Unavailable Mary Grace, Taniya Unavailable Melodie Ashton Primary Care Physician MD Melodie Ashton Primary Care Provider MD Yonis Miranda Attending Provider Melodie Ashton Primary Care Unavailable Yonis Miranda Attending Unavailable Ruth, Yonis Mckenzie Admitting Unavailable GRAHAM HOWELL Attending Unavailable DANTE, GRAHAM Attending Unavailable KELLE MOSLEY Attending Unavailable Melodie Ashton MD Primary Care Provider [phone] Melodie Ashton MD Primary Care Provider [phone] MELODIE ASHTON Primary Care Unavailable NCI ESTEVEZ Attending Unavailable KELLE MOSLEY Attending Unavailable DANTEGRAHAM DILLARD Attending Unavailable NILYonis Flower Attending Unavailable EMILIANAJANNETH GUSMAN Attending Unavailable EMILIANAJANNETH GUSMAN Attending Unavailable EMILIANAJANNETH GUSMAN Attending Unavailable Melodie Ashton Referring Unavailable EMILIANA, JANNETH Barreto Attending Unavailable REMY Dieter R Admitting Unavailable REMY, Dieter R Attending Unavailable REMY, Dieter R Referring Unavailable EMILIANA, JANNETH E Admitting Unavailable EMILIANA, JANNETH Barreto Attending Unavailable NILL, Yonis Mckenzie Attending Unavailable NILL, Yonis Mckenzie Attending Unavailable Melodie Ashton Referring Unavailable Allergies Allergy Classification Reported Allergen(s) Allergy Type Date of Onset Reaction(s) Facility (1 source) [facility]; Translations: [[facility]] Propensity to adverse reactions (disorder) 0 [facility] Repository (3 sources) [facility] Other (8 sources) Wound Dressings Drug Allergy [facility] (1 source) No Known Medication Allergies; Translations: [No Known Medication Allergies] Propensity to adverse reactions (disorder) [facility] Repository Medications Current Medications Medication Drug Class(es) Dates Sig (Normalized) Sig (Original) amoxicillin 500 mg oral capsule (2 sources) Penicillin-class Antibacterial take 1 capsule by mouth every twelve hours Amoxicillin 500 MG 1 capsule Orally Twice a day for 30 days Active azithromycin 250 mg oral tablet (2 sources) Macrolide Antimicrobial Start: 12-27-2024 azithromycin (Zithromax Z-James) 250 MG tablet Indications: Sinus congestion As directed 6 tablet 12/27/2024 Active Start: 12-27-2024 azithromycin ( Zithromax Z-James) 250 MG tablet Indications: Sinus congestion As directed 6 tablet 12/27/2024 Active cloNIDine hydrochloride 0.1 mg oral tablet (1 source) Central alpha-2 Adrenergic Agonist Start: 03-08-2024 take 1 tablet by mouth once daily cloNIDine 0.1 mg tab 0.1 mg = 1 tab(s), Oral, Daily, Refills(s) 0 Start Date: 03/08/24 Status: Ordered codeine phosphate 2 mg/ml / guaiFENesin 20 mg/ml / pseudoephedrine hydrochloride 6 mg/ml oral solution (2 sources) alpha-Adrenergic Agonist, Opioid Agonist Start: 12-27-2024 End: 01-06-2025 take 5 mL by mouth twice daily as needed pseudoephedrine -codeine-guaiFE Nesin (Mytussin DAC) 30-10-100 MG/5ML solution Indications: Sinus congestion Take 5 mL by mouth 2 (two) times a day as needed for allergies for up to 10 days 100 mL 12/27/2024 01/06/2025 Active dicyclomine hydrochloride 20 mg oral tablet [...] tablet (2 sources) Central Nervous System Stimulant Start : 06-14 End: 07-26 methylphenidate (Ritalin) 20 MG tablet 1 (one) time each day at the same time 06/14/2024 07/26/2024 Discontinued methylPREDNISolone (2 sources) Corticosteroid Start : 12-27 methylPREDNISolone (Medrol Dospak) 4 MG tablets Indications: Sinus congestion Day 1: 6 tablets Day 2: 5 tablets Day 3: 4 tablets Day 4: 3 tablets Day 5: 2 tablets Day 6: 1 tablet 21 tablet 12/27/2024 Active ondansetron 4 mg disintegrating oral tablet (7 sources) Serotonin-3 Receptor Antagonist Start : 05-10 ondansetron 4 mg Dis Tab Refills(s) 0 [...] Daily UTI prevention, 30 tab(s), Refill(s) 3, [facility]/pharmacy #[id number], 180, cm, 05/10/24 9:08:00 EDT, Height/Length Dosing, 150, kg, 05/10/24 9:08:00 EDT, Weight Dosing Start Date: 07/26/24 Status: Ordered Start: 01-19-2024 Bactrim 400 mg -80 mg Tab 1 tab(s), Oral, Daily UTI prevention, 30 tab(s), Refill(s) 3, [facility]/pharmacy #[id number], 180, cm, 01/19/24 9:37:00 EST, [...] 12/05/2024 Discontinued valACYclovir 500 mg oral tablet (6 sources) Herpesvirus Nucleoside Analog DNA Polymerase Inhibitor, [...] 400 MG tablet Indications: PHN (postherpetic neuralgia) (CMS/HCC) , History of shingles Take 1 tablet [...] completed., # 2 cap(s), Refills(s) 0, Pharmacy: [facility]/pharmacy #[id number], 180, cm, 01/19/24 9:37:00 EST, Height/Length Dosing, 145.5, kg, 01/19/24 9:37:00 EST, Weight Dosing Start Date: 01/19/24 Status: Ordered fexofenadine hydrochloride 30 mg disintegrating oral tablet (10 sources) Histamine-1 Receptor Antagonist End: 12-05-2024 take 1 tablet by mouth once daily fexofenadine ODT (Susan ODT) 30 MG disintegrating tablet Take 30 mg by mouth Daily 12/05/2024 Discontinued levonorgestrel 0.497802 mg/hr intrauterine system (8 sources) Progestin, Progestin-containin [...] Date Documented Da te Episodic/Chronic Anxiety disorders (20 sources) Anxiety; Translations: [Anxiety disorder, unspecified] Onset: [...] [Chronic nonintractable headache, unspecified headache type] Episodic Immunizations and screening for infectious disease (2 sources) Exposure to sexually transmissible disorder; Translations: [Contact with and (suspected) exposure to infections with a predominantly sexual mode of transmission] 12-27-2024 Episodic Menstrual disorders (1 source) Missed period; Translations: [Irregular menstruation, unspecified] 11-03-2024 Chronic Mood disorders (20 sources) Mood disorder; Translations: [Unspecified mood [affective] disorder] Onset: 3 09-19-2021 Chronic Nausea and vomiting (1 source) Nausea; Translations: [NAUSEA] Onset: 3 Episodic Other acquired deformities (20 sources) Scoliosis deformity of spine; Translations: [Scoliosis, unspecified] Onset: 3 09-20-2021 Chronic Other aftercare (1 source) 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; Translations: [OTH 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 INSULATION CURRENT DRUG THERAPY] Onset: 3 Episodic Other [...] Translations: [OTHER HYPOGLYCEMIA] Onset: 3 Chronic Other female genital disorders (2 sources) Vaginal discharge; Translations: [Other specified noninflammatory disorders of vagina] 12-27-2024 Episodic Other gastrointestinal disorders (20 sources) Irritable bowel [...] 03-04-2024 Chronic Other and delivery including normal (20 sources) Vaginal delivery; Translations: [Encounter for full-term uncomplicated delivery] Onset: 4 05-27-2023 Episodic Other screening for suspected conditions (not mental disorders or infectious disease) (20 sources) Ultrasonography of biliary tract abnormal; Translations: [Abnormal findings on diagnostic imaging of liver and biliary tract] Onset: 3 09-20-2021 Episodic Other upper respiratory disease (2 sources) Congestion of nasal sinus; Translations: [Nasal congestion] 12-27-2024 Episodic Residual codes; unclassified (2 sources) Gestation period, 14 weeks; Translations: [14 weeks gestation of ] 12-05-2024 Episodic Residual codes; unclassified (2 sources) Gestation period, 17 weeks; Translations: [17 weeks gestation of ] 12-27-2024 Episodic Unclassified (3 sources) CONTACT W/AND (SUSP) [...] pain] Onset: 05-27-2023 09-20-2021 Episodic Administrative/social admission (17 sources) Patient encounter status; Translations: [Persons encountering health services in other specified circumstances] Onset: 06-27-2024 06-27-2024 Episodic Biliary tract disease (20 sources) Chronic cholecystitis with calculus; Translations: [Calculus of gallbladder with chronic cholecystitis without obstruction] Onset: 05-27-2023 09-30-2021 Episodic Other and unspecified benign neoplasm (15 sources) Mature cystic teratoma of left ovary; Translations: [Benign neoplasm of left ovary] Onset: 04-10-2015 05-27-2023 Episodic Other connective tissue disease (4 sources) Impingement syndrome of right shoulder; Translations: [IMPINGEMENT SYNDROME RIGHT SHOULDER] Onset: 07-10-2022 Episodic Other gastrointestinal disorders (14 sources) Pharyngeal dysphagia; Translations: [Dysphagia, pharyngeal phase] Onset: 05-07-2023 05-07-2023 Episodic Other non-traumatic joint disorders (5 sources) Pain in right shoulder; Translations: [PAIN IN RIGHT SHOULDER] Onset: 05-13-2022 Episodic Other skin disorders (20 sources) Acne vulgaris; Translations: [Acne vulgaris] Onset: 05-27-2023 09-20-2021 Episodic Other upper respiratory infections (1 source) Acute pharyngitis, unspecified; Translations: [ACUTE PHARYNGITIS UNSPECIFIED] Onset: 10-23-2022 Episodic Poisoning by nonmedicinal substances (4 sources) Toxic effect of venom of bees, accidental (unintentional), initial encounter; Translations: [TOXIC EFF VENOM BEES ACC INIT ENC] Onset: 08-05-2022 Episodic Residual codes; unclassified (20 sources) Insomnia; Translations: [Insomnia, unspecified] Onset: 05-27-2023 [...] Test Name Value Interpretation Reference Range Facility Urinalysis macro (dipstick) panel (U)on 12-27-2024 Bilirubin, UA Negative Negative - 4(70) +++ mg/dL [facility] Blood, UA Negative Negative - 50 Issac/mcL [facility] Clarity, UA Clear [facility] [employer] Color, UA Yellow [facility] [email or web address] e Glucose, UA Negative Negative - 1999(110) ++++ mg/dL [facility] Interpretation and review of laboratory results Abnormal [facility] re Ketones, UA Negative Negative - 160(16) ++++ mg/dL [facility] Leukocytes, UA Positive Negative - 500+++ Christo/mcL [facility] Comment on above: small Nitrite, UA Negative Negative - Positive [facility] pH, UA 6 5 - 9 [facility] [employer] Protein, UA Trace Negative - 1999(20) ++++ mg/dL [facility] Spec Grav, UA 1.03 1 - 1.03 [facility] Urobilinogen, UA 0.2 0.2 - 12 mg/dL [facility] BOX TESTon 12-23-2024 BOX TEST SENT OUT [employer] [facility] [employer] [address] [employer] [employer] [address] 12/23/24 [employer] UNITY [facility] Reminderson 12-08-2024 Reminders Reminders From: Sanjuana Muñoz [...] a no show a second time. Normal [facility] Urinalysis macro (dipstick) panel (U)on 12-05-2024 Bilirubin, UA Negative Negative - 4(70) +++ mg/dL [facility] Blood, UA Negative Negative - 50 Issac/mcL [facility] Clarity, UA Clear [facility] [employer] Color, UA Yellow [facility] [employer] Glucose, UA Negative Negative - 2000(110) ++++ mg/dL [facility] Interpretation and review of laboratory results Abnormal [facility] [employer] Ketones, UA Negative Negative - 160(16) ++++ mg/dL [facility] Leukocytes, UA Positive Negative - 500+++ Christo/mcL [facility] Comment on above: small Nitrite, UA Negative Negative - Positive [facility] pH, UA 6.5 5 - 9 [facility] [email or web address] e Protein, UA Trace Negative - 2000(20) ++++ mg/dL [facility] Spec Grav, UA 1.025 1 - 1.03 [facility] Urobilinogen, UA 0.2 0.2 - 12 mg/dL [facility] Basic Metabolic Panelon 11-23 Est, Glom Filt Rate - [facility] Comment on above: These results are not [...] Interpretation and review of laboratory results Abnormal [facility] Urea nitrogen/Creatinine [Mass ratio] 12 mg/mg - [facility] Basic Metabolic Profon 12-02 Anion gap [Moles/Vol] 11 mmol/L Normal -[address] [facility] Comment on above: Performed By: #### B MP, LIVP, MG, CDP, LIP #### [address] [place] [address] Workers Compensation Defense Attorney: Nandini Acevedo MD BUN/CRE Ratio 12 Normal 9-20 [facility] Comment on above: Performed By: #### B MP, LIVP, MG, CDP, LIP #### [address] [place] [address] Workers Compensation Defense Attorney: Nandini Acevedo MD Calcium [Mass/Vol] 9.3 mg/dL Normal 8.6-10.4 [facility] Comment on above: Performed By: #### B MP, LIVP, MG, CDP, LIP #### [address] [place] [address] Workers Compensation Defense Attorney: Nandini Acevedo MD Chloride [Moles/Vol] 102 mmol/L Normal 98-[address] [facility] Comment on above: Performed By: #### B MP, LIVP, MG, CDP, LIP #### [address] [place] [address] Workers Compensation Defense Attorney: Nandini Acevedo MD CO2 [Moles/Vol] 24 mmol/L Normal 20-31 [facility] Comment on above: Performed By: #### B MP, LIVP, MG, CDP, LIP #### [address] [place] [address] Workers Compensation Defense Attorney: Nandini Acevedo MD Creatinine [Mass/Vol] 0.5 mg/dL Normal 0.50-0.[address] [facility] Comment on above: Performed By: #### B MP, LIVP, MG, CDP, LIP #### [address] [place] [address] Workers Compensation Defense Attorney: Nandini Acevedo MD GFR/1.73 sq M.predicted among non-blacks MDRD (S/P/Bld) [Vol rate/Area] mL/min/{1.73_m2} Normal >60 [facility] Comment on above: Result Comment: These results [...] B MP, LIVP, MG, CDP, LIP #### [address] [place] [address] Workers Compensation Defense Attorney: Nandini Acevedo MD Glucose [Mass/Vol] 88 mg/dL Normal 74-99 [facility] Comment on above: Performed By: #### B MP, LIVP, MG, CDP, LIP #### [address] [place] [address] Workers Compensation Defense Attorney: Nandini Acevedo MD Potassium [Moles/Vol] 3.6 mmol/L Low 3.7-5.[address] [facility] Comment on above: Performed By: #### B MP, LIVP, MG, CDP, LIP #### [address] [place] [address] Workers Compensation Defense Attorney: Nandini Acevedo MD Sodium [Moles/Vol] 137 mmol/L Normal 136-145 [facility] Comment on above: Performed By: #### B MP, LIVP, MG, CDP, LIP #### [address] [place] [address] Workers Compensation Defense Attorney: Nandini Acevedo MD Urea nitrogen [Mass/Vol] 6 mg/dL Normal 6-[address] [facility] Comment on above: Performed By: #### B MP, LIVP, MG, CDP, LIP #### [address] [place] [address] Workers Compensation Defense Attorney: Nandini Acevedo MD CBC with Auto Differentialon 12-02-2024 Basophils (Bld) [#/Vol] 0.04 10*3/uL [facility] Basophils/100 WBC (Bld) 0 % 0 - 2 % [facility] Eosinophils (Bld) [#/Vol] 0.06 10*3/uL [facility] Eosinophils/100 WBC (Bld) 0 % Low 1 - 4 % [facility] Erythrocyte distribution width (RBC) [Ratio] 12.0 % 11.8 - 14.4 % [facility] Hematocrit (Bld) [Volume fraction] 38.6 % 36.3 - 47.1 % [facility] Hemoglobin (Bld) [Mass/Vol] 13.3 g/dL 11.9 - 15.1 g/dL [facility] Immature granulocytes (Bld) [#/Vol] 0.05 10*3/uL [facility] Immature granulocytes/100 WBC (Bld) 0 % [address] [facility] Interpretation and review of laboratory results Abnormal [facility] Lymphocytes/100 WBC (Bld) 9 % Low 24 - 43 % [facility] Lymphocytes/100 WBC (Bld) 1.26 % [facility] MCH (RBC) [Entitic mass] 30.6 pg 25.2 - 33.5 pg [facility] MCHC (RBC) [Mass/Vol] 34.5 g/dL 28.4 - 34.8 g/dL [facility] MCV (RBC) [Entitic vol] 88.7 fL 82.6 - 102.9 fL [facility] Monocytes/100 WBC (Bld) 6 % 3 - 12 % [facility] Monocytes/100 WBC (Bld) 0.88 % [facility] Neutrophils/100 WBC (Bld) 85 % High 36 - 65 % [facility] Nucleated RBC/100 WBC (Bld) [Ratio] 0.0 % 0.0 per 100 WBC [facility] Platelet mean volume (Bld) [Entitic vol] 9.2 fL 8.1 - 13.[address] [facility] Platelets (Bld) [#/Vol] 267 10*3/uL [facility] RBC (Bld) [#/Vol] 4.35 10*6/uL 3.95 - 5.1 1 m/uL [facility] Segmented neutrophils/100 WBC (Bld) 12.17 % High [facility] WBC other (Bld) [#/Vol] 14.5 High [facility] CBC with Diffon 12-02-2024 Abs. Basophil 0.04 k/uL Normal 0.00-0.20 [facility] Comment on above: Performed By: #### B MP, LIVP, MG, CDP, LIP #### [address] [place] [id number] Workers Compensation Defense Attorney: Nandini Acevedo MD Abs.Imm.Granulocyte 0.05 k/uL Normal 0.00-0.30 [facility] Comment on above: Performed By: #### B MP, LIVP, MG, CDP, LIP #### [address] [place] [id number] Workers Compensation Defense Attorney: Nandini Acevedo MD Abs.Neutrophil (Seg) 12.17 k/uL High 1.50-8.10 [facility] Comment on above: Performed By: #### B MP, LIVP, MG, CDP, LIP #### [address] [place] [id number] Workers Compensation Defense Attorney: Nandini Acevedo MD Basophils/100 WBC (Bld) 0 % Normal 0-2 [facility] Comment on above: Performed By: #### B MP, LIVP, MG, CDP, LIP #### [address] [place] [id number] Workers Compensation Defense Attorney: Nandini Acevedo MD Eosinophils (Bld) [#/Vol] 0.06 10*3/uL Normal 0.00-0.44 [facility] Comment on above: Performed By: #### B MP, LIVP, MG, CDP, LIP #### [address] [place], [place] [id number] Workers Compensation Defense Attorney: Nandini Acevedo MD Eosinophils/100 WBC (Bld) 0 % Low 1-4 [facility] Comment on above: Performed By: #### B MP, LIVP, MG, CDP, LIP #### [address] [place], [facility]83 Workers Compensation Defense Attorney: Nandini Acevedo MD Erythrocyte distribution width (RBC) [Ratio] 12.0 % Normal 11.8-14.4 [facility] Comment on above: Performed By: #### B MP, LIVP, MG, CDP, LIP #### [address] [place], [facility]83 Workers Compensation Defense Attorney: Nandini Acevedo MD Hematocrit (Bld) [Volume fraction] 38.6 % Normal 36.3-47.1 [facility] Comment on above: Performed By: #### B MP, LIVP, MG, CDP, LIP #### [address] [place], [facility]83 Workers Compensation Defense Attorney: Nandini Acevedo MD Hemoglobin (Bld) [Mass/Vol] 13.3 g/dL Normal 11.9-15.1 [facility] Comment on above: Performed By: #### B MP, LIVP, MG, CDP, LIP #### [address] [place], [facility]83 Workers Compensation Defense Attorney: Nandini Acevedo MD Immature granulocytes/100 WBC (Bld) 0 % Normal 0 [facility] Comment on above: Performed By: #### B MP, LIVP, MG, CDP, LIP #### [address] [place] [address] Workers Compensation Defense Attorney: Nandini Acevedo MD Lymphocytes (Bld) [#/Vol] 1.26 10*3/uL Normal 1.10-3.70 [facility] Comment on above: Performed By: #### B MP, LIVP, MG, CDP, LIP #### [facility] [address] [place], [facility]83 Workers Compensation Defense Attorney: Nandini Acevedo MD Lymphocytes/100 WBC (Bld) 9 % Low 24-43 [facility] Comment on above: Performed By: #### B MP, LIVP, MG, CDP, LIP #### [facility] [address] [place], [place] [address] Workers Compensation Defense Attorney: Nandini Acevedo MD MCH (RBC) [Entitic mass] 30.6 pg Normal 25.2-33.5 [facility] Comment on above: Performed By: #### B MP, LIVP, MG, CDP, LIP #### [facility] [address] [place] [id number] Workers Compensation Defense Attorney: Nandini Acevedo MD MCHC (RBC) [Mass/Vol] 34.5 g/dL Normal 28.4-34.8 [facility] Comment on above: Performed By: #### B MP, LIVP, MG, CDP, LIP #### [address] [place], [facility]83 Workers Compensation Defense Attorney: Nandini Acevedo MD MCV (RBC) [Entitic vol] 88.7 fL Normal 82.6-102.9 [facility] Comment on above: Performed By: #### B MP, LIVP, MG, CDP, LIP #### [address] [place], [facility]83 Workers Compensation Defense Attorney: Nandini Acevedo MD Monocytes (Bld) [#/Vol] 0.88 10*3/uL Normal 0.10-1.20 [facility] Comment on above: Performed By: #### B MP, LIVP, MG, CDP, LIP #### [facility] [address] [place], [place] [id number] Workers Compensation Defense Attorney: Nandini Acevedo MD Monocytes/100 WBC (Bld) 6 % Normal 3-12 [facility] Comment on above: Performed By: #### B MP, LIVP, MG, CDP, LIP #### [facility] [address] [place] [address] Workers Compensation Defense Attorney: Nandini Acevedo MD Neutrophil (Seg) 85 % High 36-65 [facility] Comment on above: Performed By: #### B MP, LIVP, MG, CDP, LIP #### [address] [place], [facility]83 Workers Compensation Defense Attorney: Nandini Acevedo MD NRBC Automated 0.0 per 100 WBC Normal 0.0 [facility] Comment on above: Performed By: #### B MP, LIVP, MG, CDP, LIP #### [address] [place], [facility]83 Workers Compensation Defense Attorney: Nandini Acevedo MD Platelet mean volume (Bld) [Entitic vol] 9.2 fL Normal 8.1-13.5 [facility] Comment on above: Performed By: #### B MP, LIVP, MG, CDP, LIP #### [address] [place], [facility]83 Workers Compensation Defense Attorney: Nandini Acevedo MD Platelets (Bld) [#/Vol] 267 10*3/uL Normal 138-453 [facility] Comment on above: Performed By: #### B MP, LIVP, MG, CDP, LIP #### [address] [place], [facility]83 Workers Compensation Defense Attorney: Nandini Acevedo MD RBC (Bld) [#/Vol] 4.35 10*6/uL Normal 3.95-5.11 [facility] Comment on above: Performed By: #### B MP, LIVP, MG, CDP, LIP #### [facility] [address] [place], [place] [id number] Workers Compensation Defense Attorney: Nandini Acevedo MD WBC (Bld) [#/Vol] 14.5 10*3/uL High 3.5-11.3 [facility] Comment on above: Performed By: #### B MP, LIVP, MG, CDP, LIP #### [address] [place] [address] Workers Compensation Defense Attorney: Nandini Acevedo MD Hepatic Function Panelon Albumin/Globulin [Mass ratio] 1.4 {ratio} 1.0 - 2.[address] [facility] ALP [Catalytic activity/Vol] 61 U/L 35 - 104 U/L [facility] [facility] Bilirubin.direct [Mass/Vol] mg/dL 0.00 - 0.30 mg/dL [facility] Bilirubin.indirect [Mass/Vol] Can not be calculated 0.0 - 1.0 mg/dL [facility] Lipaseon 12-02-2024 Lipase [Catalytic activity/Vol] 34 U/L Normal 13-[address] [facility] Comment on above: Performed By: #### B MP, LIVP, MG, CDP, LIP #### [address] [place] [address] Workers Compensation Defense Attorney: Nandini Acevedo MD Liver Profileon 12-02-2024 Albumin [Mass/Vol] 3.9 g/dL Normal 3.5-5.2 [facility] Comment on above: Performed By: #### B MP, LIVP, MG, CDP, LIP #### [address] [place] [address] Workers Compensation Defense Attorney: Nandini Acevedo MD Albumin/Glob Ratio 1.4 Normal 1.0-2.5 [facility] Comment on above: Performed By: #### B MP, LIVP, MG, CDP, LIP #### [address] [place] [address] Workers Compensation Defense Attorney: Nandini Acevedo MD Alkaline Phos 61 U/L Normal 35-104 [facility] Comment on above: Performed By: #### B MP, LIVP, MG, CDP, LIP #### [address] [place], [place] [id number] Workers Compensation Defense Attorney: Nandini Acevedo MD ALT [Catalytic activity/Vol] 14 U/L Normal 10-[address] [facility] Comment on above: Performed By: #### B MP, LIVP, MG, CDP, LIP #### [address] [place] [address] Workers Compensation Defense Attorney: Nandini Acevedo MD AST [Catalytic activity/Vol] 14 U/L Normal 10-[address] [facility] Comment on above: Performed By: #### B MP, LIVP, MG, CDP, LIP #### [address] [place] [address] Workers Compensation Defense Attorney: Nandini Acevedo MD Bilirubin [Mass/Vol] mg/dL Normal 0.00-1.[address] [facility] Comment on above: Performed By: #### B MP, LIVP, MG, CDP, LIP #### [address] [place], [place] [address] Workers Compensation Defense Attorney: Nandini Acevedo MD Bilirubin, Indirect Can not be calculated Normal 0.0-1 .0 [facility] Comment on above: Performed By: #### B MP, LIVP, MG, CDP, LIP #### [address] [place] [address] Workers Compensation Defense Attorney: Nandini Acevedo MD Bilirubin.indirect [Mass/Vol] mg/dL Normal 0.00-0.30 [facility] Comment on above: Performed By: #### B MP, LIVP, MG, CDP, LIP #### [address] [place] [address] Workers Compensation Defense Attorney: Nandini Acevedo MD Protein [Mass/Vol] 6.7 g/dL Normal 6.6-8.7 [facility] Comment on above: Performed By: #### B MP, LIVP, MG, CDP, LIP #### [facility] [address] [place] [address] Workers Compensation Defense Attorney: Nandini Acevedo MD Magnesiumon 12-02-2024 Magnesium [Mass/Vol] 1.7 mg/dL Normal 1.6-2.[address] [facility] Comment on above: Performed By: #### B MP, LIVP, MG, CDP, LIP #### [facility] [address] [place] [address] Workers Compensation Defense Attorney: Nandini Acevedo MD Microscopic Urinalysison Amorphous sediment LM Ql (Urine sed) 2+ Abnormal None [facility] Epithelial cells LM.HPF (Urine sed) [#/Area] 0 TO [address] [facility] Interpretation and review of laboratory results Abnormal [facility] RBC LM.HPF (Urine sed) [#/Area] 0 TO [address] [facility] WBC LM.HPF (Urine sed) [#/Area] 2 TO 5 [facility] No Panel Informationon 12-[address] [facility] US OB LESS THAN 14 WEEKS SIN [...] seen given later gestation Embryo(<11wk) /Fetus(>=11wk): Single [place] Rump Length: 7.9 cm Rate of Cardiac [...] Keyur Benavides MD 12/02/24 Final result Normal [facility] Intrauterine with embryonic/ cardiac activity. Estimated gestational age by current ultrasound is 14 weeks 0 days. [facility] EXAMINATION: FIRST TRIMESTER OBSTETRIC ULTRASOUND [...] seen given later gestation Embryo(<11wk) /Fetus(>=11wk): Single [place] Rump Length: 7.9 cm Rate of Cardiac Activity 160 Right ovary: 3.2 x 2.2 x 2.3 cm Left ovary: Surgically absent Free fluid: Measurements: Estimated gestational age by current ultrasound: 14 weeks 0 days Estimated gestational age by LMP/prior ultrasound: 13 weeks 4 days Estimated Due Date: 06/02/2025 by today's ultrasound [facility] Keyur Benavides MD - 12/02/2024 EXAMINATION: FIRST TRIMESTER OBSTETRIC [...] seen given later gestation Embryo(<11wk) /Fetus(>=11wk): Single [place] Rump Length: 7.9 cm Rate of Cardiac [...] current ultrasound is 14 weeks [address] [facility] Radiology Study observation (narrative) [facility] US OB LESS THAN 14 WEEKS SIN GLE OR FIRST GESTATION W DOPPLEROrdered By: Keyur Benavides on 12-02-[address] [facility] Work Phone: Urinalysison 12-02-2024 Bilirubin Ql (U) Negative NEGATIVE [facility] Clarity (U) Clear Clear [facility] Color (U) Yellow Yellow [facility] Glucose Test strip (U) [Mass/Vol] Negative NEGATIVE mg/dL [facility] Hemoglobin Auto test strip Ql (U) Negative NEGATIVE [facility] Interpretation and review of laboratory results Abnormal [facility] Ketones (U) [Mass/Vol] Negative NEGATIVE mg/dL [facility] Leukocyte esterase Test strip Ql (U) MODERATE Abnormal NEGATIVE [facility] Nitrite Ql (U) Negative NEGATIVE [facility] pH (U) 7.5 [pH] 5.0 - 9.[address] [facility] Protein (U) [Mass/Vol] Negative NEGATIVE mg/dL [facility] Specific gravity (U) [Rel density] 1.025 High 1.010 - 1.[address] [facility] Urobilinogen Qn (U) Normal 0.0 - 1. 0 EU/dL [facility] Urinalysis, Routineon 2024 Bilirubin, SemiQt,Ur Negative Normal NEG [facility] Comment on above: Performed By: #### U AYOLANDAO #### [facility] [address] [place] [address] Workers Compensation Defense Attorney: Nandini Acevedo MD Blood, Urine Negative Normal NEG [facility] Comment on above: Performed By: #### U A, ORALIAICAO #### [facility] [address] [place] [address] Workers Compensation Defense Attorney: Nandini Acevedo MD Clarity (U) Clear Normal CLEAR [facility] Comment on above: Performed By: #### U A, UMICAO #### [facility] [address] [place], [place] [id number] Workers Compensation Defense Attorney: Nandini Acevedo MD Color (U) Yellow Normal YEL [facility] Comment on above: Performed By: #### U A, UMICAO #### [facility] [address] [place], [place] [id number] Workers Compensation Defense Attorney: Nandini Acevedo MD Glucose Ql (U) Negative Normal NEG [facility] Comment on above: Performed By: #### U A, UMICAO #### [facility] [address] [place] [address] Dr. [place], [place] [phone] Workers Compensation Defense Attorney: Nandini Acevedo MD Ketones Ql (U) Negative Normal NEG [facility] Comment on above: Performed By: #### U A, UMICAO #### [facility] [address] [place] [address] Dr. [place], [place] [id number] Workers Compensation Defense Attorney: Nandini Acevedo MD Leukocyte esterase Test strip Ql (U) MODERATE Abnormal NEG [facility] Comment on above: Performed By: #### U A, UMICAO #### [facility] [address] [place] [address] Dr[address] [place], [place] [id number] Workers Compensation Defense Attorney: Nandini Acevedo MD Nitrite,Ur Negative Normal NEG [facility] Comment on above: Performed By: #### U A, UMICAO #### [facility] [address] [place], [place] [phone] Workers Compensation Defense Attorney: Nandini Acevedo MD PH,Ur 7.5 Normal 5.0-9.0 [facility] Comment on above: Performed By: #### U A, UMICAO #### [facility] [address] [place], [place] [address]365483 Workers Compensation Defense Attorney: Nandini Acevedo MD Protein Ql (U) Negative Normal NEG [facility] Comment on above: Performed By: #### U A, UMICAO #### [facility] [address] [place] [address] Dr. [place], [place] [phone] Workers Compensation Defense Attorney: Nandini Acevedo MD Spec. [place],Ur 1.025 High 1.010-1.020 [facility] Comment on above: Performed By: #### U A, UMICAO #### [facility] [address] [place] [address] Dr. [place], [place] [address] Workers Compensation Defense Attorney: Nandini Acevedo MD Urobilinogen,Ur Normal Normal 0.0-1.0 [facility] Comment on above: Performed By: #### U A, UMICAO #### [address] [place] [address] Workers Compensation Defense Attorney: Nandini Acevedo MD Urinalysis,Microon 5 Amorphous sediment LM Ql (Urine sed) 2+ Abnormal NONE [facility] Comment on above: Performed By: #### U A, UMICAO #### [address] [place], [place] [address] Workers Compensation Defense Attorney: Nandini Acevedo MD Epithelial cells LM Ql (Urine sed) 0 TO 2 Normal 0-25 [facility] Comment on above: Performed By: #### U A, UMICAO #### [address] [place], [place] [address] Workers Compensation Defense Attorney: Nandini Acevedo MD Urine RBC's 0 TO 2 Normal 0-2 [facility] Comment on above: Performed By: #### U A, UMICAO #### [address] [place], [place] 227[address]83 Workers Compensation Defense Attorney: Nandini Acevedo MD Urine WBC's 2 TO 5 Normal 0-5 [facility] Comment on above: Performed By: #### U A, UMICAO #### [facility] [address] [place] [address] [place] [address] Workers Compensation Defense Attorney: Nandini Acevedo MD HCG ( test) Ql (U)o n 11-03-2024 Interpretation and review of laboratory results Abnormal [facility] re Preg Test, Ur Positive Negative [facility]inalysis macro (dipstick) panel (U)on 11-03-2024 Bilirubin, UA Negative Negative - 4(70) +++ mg/dL [facility] Blood, UA Negative Negative - 50 Issac/mcL [facility] Clarity, UA Clear [facility] re Color, UA Yellow [facility] Glucose, UA Negative Negative - 1999(110) ++++ mg/dL [facility] Interpretation and review of laboratory results Normal [facility] Ketones, UA Negative Negative - 160(16) ++++ mg/dL [facility] Leukocytes, UA Negative Negative - 500+++ Christo/mcL [facility] Nitrite, UA Negative Negative - Positive [facility] pH, UA 5 5 - 9 [facility] e Protein, UA Negative Negative - 1999(20) ++++ mg/dL [facility] Spec Grav, UA 1.03 1 - 1.03 [facility] Urobilinogen, UA 1.0 0.2 - 12 mg/dL [facility] ALL CBC WITH AUTO DIFFon BASOPHILS ABSOLUTE AUTO 0 [facility] Basophils/100 WBC (Bld) 0.5 % 0.2 - 2.0 % [facility] Eosinophils/100 WBC (Bld) 1.9 % 0.9 - 7.0 % [facility] Erythrocyte distribution width (RBC) [Ratio] 12.1 % 11.0 - 15.0 % [facility] Hematocrit (Bld) [Volume fraction] 40.1 % 36.0 - 48.0 % [facility] Hemoglobin (Bld) [Mass/Vol] 13.5 g/dL 12.0 - 16.0 g/dL [facility] IMMATURE GRANULOCYTES ABS AUTO 0.03 [facility] Immature granulocytes/100 WBC (Bld) 0.4 % 0.0 - 0.5 % [facility] Interpretation and review of laboratory results Abnormal [facility] LYMPHOCYTES ABSOLUTE AUTO 1.7 [facility] Lymphocytes/100 WBC (Bld) 23.9 % 20.5 - 60.0 % [facility] MCH (RBC) [Entitic mass] 30.3 pg 26.7 - 34.0 pg [facility] MCHC (RBC) [Mass/Vol] 33.7 g/dL 29.9 - 35.2 g/dL [facility] MCV (RBC) [Entitic vol] 90.1 fL 81.0 - 99.0 fL [facility] MONOCYTES ABSOLUTE AUTO 0.5 [facility] Monocytes/100 WBC (Bld) 7.4 % 1.7 - 12.0 % [facility] NEUTROPHILS ABSOLUTE AUTO 4.8 [facility] Neutrophils/100 WBC (Bld) 65.9 % 43.0 - 75.0 % [facility] Platelet mean volume (Bld) [Entitic vol] 8.7 fL Low 9.5 - 13.5 fL [facility] TBH EO # 0.1 [facility] TBH PLT 299 [facility] RBC 4.45 [facility] WBC 7.3 [facility] Screenson 05-11-2024 Screens [id number]# 1.00TIFF Normal [facility] Ambulatory Visit Summaryon 0 2024 Ambulatory Visit Summary ROSALIE RODRÍGUEZ V :1995 Visit Date:2024 Ambulatory Visit Instructions Your Diagnosis Recurrent UTI Renal lesion Your Care Team Attending Physician - JANNETH SMITH PA-C Primary Care Physician - Melodie Ashton MD This Is Your Medications List [...] EDT With: RUTH CLARK, Yonis Mckenzie Where: [facility] Surgery [place] Normal [facility] Patient Educationon 05-10-20 24 Patient Education [...] Follow these instructions at home: ? Take tjey-pef-gvrlbjz and prescription medicines as told by your [...] get worse. (more content not included)... Normal [facility] Urology Office/Clinic Noteon 2024 Urology Office/Clinic [...] back normal. 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 Also had a difficult PO recovery and had a CT scan done in the ER which indicated her Mirena is not in the correct spot. States she plans to f/u with her quality facilitator. We did speak about how some pts [...] Bactrim SS 1 tab prn -F/u with DESULFURIZER OPERATOR to discuss IUD/different form of control [...] Contact Information EMILIANA STEPHENS, JANNETH Barreto, URL [address] [place] [address] [phone] Additional Instructions: 6 mos (no labs) Patient Education Antibiotic Medicine, Adult Documentation recorded by the curt Parra accurately reflects the services(s) I performed and decisions made by me. Authenticated by Janneth Smith PA-C on 2024 09:54:59. Ondina Nicolas, personally scribed for Janneth Smith PA-C on [...] virus vaccine, (more content not included)... Normal [facility] Comment on above: Result Comment: Elec tronically Signed By: JANNETH SMITH PA-C\.br\Date and Time Signed: 05/10/24 09:55 EDT\.br\Electronically Co-Signed By: Ondina Parra\.br\Date and Time Co-Signed: 05/10/24 09:51 EDT Outside Colonoscopyon 2023 Outside Colonoscopy [id number]#1. 00TIFF Normal [facility] Lab Reportson 04-28-2024 Lab Reports [id number]#1 .00TIFF [facility] Consent for Procedure/Surger yon 03-09-2024 Consent for Procedure/Surgery [id number]#1 .00TIFF [facility] Ambulatory Visit Summaryon 0 03-08-2024 Ambulatory Visit Summary ROSALIE RODRÍGUEZ V :1995 Visit Date:03/08/2024 Ambulatory Visit Instructions Your Care Team Attending Physician - RUTH CLARK, Yonis Mckenzie Primary Care Physician - Poli CLARK, Melodie Referring Physician - Melodie Ashton MD This Is Your Medications List cephalexin [...] JANNETH SMITH PA-C Where: [facility] Physician Referralon 024 Physician Referral [id number]#1 .00TIFF [facility] Physician Referralon 024 Physician Referral [id number]#1 .00TIFF [facility] Consent for Procedure/Surger yon 02-09-2024 Consent for Procedure/Surgery [id number]# 1.00TIFF [facility] Consent for Treatmenton 03- Consent for Treatment [id number]#1 .00TIFF [facility] IntraOperative Documentson 0 02-09-2024 IntraOperative Documents [id number]# 1.00TIFF [facility] Main OR Intraoperative Recor don 02-09-2024 Main OR Intraoperative Record IntraOp Document Type FTURO Summary Primary Physician: Dieter REMY MD Finalized Date/Time: 02/09/24 08:32:09 Pt. Name: RODRÍGUEZROSALIE/Sex: 1995 Female Med Rec #: [id number] Physician: Dieter REMY MD Financial #: [id number] Pt. Type: O Room/Bed: / Admit/Disch: 02/09/24 07:32:51 - Institution: Case Times FTURO Entry 1 Patient Times In Room 02/09/24 08:10:00 Out Room 02/09/24 08:38:00 Procedure Times Start 02/09/24 08:24:00 Stop 02/09/24 08:33:00 Anesthesia Times Last Modified By: Сергей VALENZUELA, Sangita CHIN 02/09/24 08:31:26 Case Attendance FTURO Entry 1 Entry 2 Entry 3 Case Attendee Dieter REMY MD RN, RAYMONDOR, Maryam GRIGSBY, Bianca Quesada Role Performed Surgeon - Primary Manufacturing Support Engineer - Primary Scrub - Primary Time In 02/09/24 08:10:00 02/09/24 08:10:00 02/09/24 08:10:00 Time Out 02/09/24 08:38:00 02/09/24 08:38:00 02/09/24 08:38:00 Procedure CYSTOSCOPY LOCAL(.) CYSTOSCOPY LOCAL(.) CYSTOSCOPY LOCAL(.) Comments Last Modified By: Сергей RN, CNOR, Сергей RN, RAYMONDOR, Сергей VALENZUELA, RAYMONDORSangita 02/09/24 Sangita 02/09/24 Sangita 02/09/24 08:31:27 08:31:27 [...] Verified Availability Equipment, Medication Time Out Dieter REMY MD, Verified (If Participants Сергей VALENZUELA, RAYMONDOR, [...] GIUSEPPE Rushing RN, Ruthann 02/09/24 08:32 Normal [facility] Main OR Preoperative Recordo n 02-09-2024 Main OR Preoperative Record Holding Area Document Type FTURO Summary Primary Physician: Dieter REMY MD Finalized Date/Time: 02/09/24 08:08:52 Pt. Name: RODRÍGUEZROSALIE./Sex: 1995 Female Med Rec #: [id number] Physician: Dieter REMY MD Financial #: [id number] Pt. Type: O Room/Bed: / Admit/Disch: 02/09/24 [...] GIUSEPPE Rushing RN, Ruthann 02/09/24 08:08 Normal [facility] Operative Reporton Operative Report Patient: ASHLEE [...] of her recurrent urinary tract infections.. Normal [facility] Comment on above: Result Comment: Elec tronically Signed By: Dieter REMY MD\.br\Date and Time Signed: 02/09/24 08:36 EDT Outpatient Surgery Discharge Instructionon 02-09-2024 Outpatient Surgery Discharge Instruction [id number]# 1.00TIFF [facility] RAD - MISCon 01-29-2024 RAD - MISC [id number]#1 .00TIFF [facility] C Urineon 01-21-2024 Bacteria identified Cx [...] This test was performed at: [facility], [address] [place] [address], [facility] , , [facility] Comment on above: Performed By: #### 2 [id number] ####[place] [address] RAD - Ultrasound Reporton RAD - Ultrasound Report [id number]# 1.00TIFF [facility] Screenson 01-21-2024 Screens [id number]#1 .00TIFF [facility] Ambulatory Visit Summaryon 0 01-19-2024 Ambulatory Visit Summary ROSALIE RODRÍGUEZ V :1995 Visit Date:01/19/2024 Ambulatory Visit Instructions Your Diagnosis Recurrent UTI Renal lesion Tests Performed Voiding Urethrocystogram XR -- Results Pending -- Please visit your patient portal for your results or contact your primary care physician. Your Care Team Attending Physician - JANNETH SMITH PA-C Primary Care Physician - Melodie Ashton MD Referring Physician - Melodie Ashton MD This Is Your Medications List [...] the Following Appointments Follow Up with JANNETH SMITH PA-C, URL When: Where: [address] [facility] [place] [address] Medications What How Much When Instructions New sulfamethoxazole-trim ethoprim (Bactrim 400 mg-80 mg Tab) 1 Tablets By Mouth Every day as needed for UTI prevention Refills: 3 Pickup at [facility]/pharmacy #[id number] Unchanged guanfacine (guanfacine 3 mg [...] physician if questions or concerns Pharmacy Information [facility]/pharmacy #[id number]: [address], [place] [id number] [phone] Allergies No Known Allergies No Known Medication [...] Trouble urinati (more content not included)... Normal [facility] Patient Educationon 01-19-20 24 Patient Education [...] this condition includes: ? Antibiotic medicine. ? Jurv-oni-olralwv medicines to treat discomfort. ? Drinking enough [...] these instructions at home: Medicines ? Take lruq-nuy-iybwjkl and prescription medicines only as told by [...] Document Revie (more content not included)... Normal [facility] BNPon 04-17-2023 Natriuretic peptide B (Bld) [Mass/Vol] 246.0 pg/mL Normal <=450.0 [facility] Comment on above: Performed By: #### I NSULIN #### [facility] [address] [place] [address] Dr. Saray Souza CARDIAC NELI ADMITon 023 CK [Catalytic activity/Vol] 47 U/L Normal 26-192 [facility] Comment on above: Performed By: #### I NSULIN #### [facility] [address] [place] [address] Dr. Saray Souza CK.MB [Mass/Vol] 1.02 ng/mL Normal <=3.60 [facility] Comment on above: Performed By: #### I CURLYULIN #### [facility] [address] [place] [address] Dr. Saray Souza HSTROP 4.5 pg/mL Normal 4.0-51.3 [facility] Comment on above: Result Comment: CUT- OFF POINTS HAVE BEEN ESTABLISHED BASED ON THE FOURTH UNIVERSAL DEFINITIONS OF MYOCARDIAL INFARCTION. THE UPPER REFERENCE LIMIT (URL) OF TROPONIN, DEFINED THE 99TH PERCENTILE OF cTnI DISTRIBUTION IN A REFERENCE POPULATION, HAS BEEN CONFIRMED THE DECISION THRESHOLD FOR ME DIAGNOSIS. Performed By: #### I CURLYULIN #### [facility] [address] [place] [address] Dr. Saray Souza FRANKLIN 36 ng/mL Normal 9-82 [facility] Comment on above: Performed By: #### I CURLYULIN #### [facility] [address] [place] [address] Dr. Saray Souza CBC W MANUAL DIFFon 04-17-20 23 ATYPICAL LYMPH # Normal [facility] Comment on above: Performed By: #### C BCMAN #### [facility] [address] [place] [address] Dr. Saray Souza ATYPICAL LYMPH % Normal [facility] Comment on above: Performed By: #### C EDGARDO #### [facility] [address] [place] [address] [address] Saray Souza BAND # 0.3 103/ul Normal 0.0-0.3 [facility] Comment on above: Performed By: #### C EDGARDO #### [facility] [address] [place] [address] Dr. Saray Souza BAND % 1 % Normal 0-5 [facility] Comment on above: Performed By: #### C EDGARDO #### [facility] [address] [place] [address] Dr. Saray Souza BASOM # 0.00 103/ul Normal 0.00-0.10 [facility] Comment on above: Performed By: #### C EDGARDO #### [facility] [address] [place] [address] Dr. Saray Souza BASOM % 0.0 % Critically low 0.2-2.0 [facility] Comment on above: Performed By: #### C EDGARDO #### [facility] [address] [place] [address] Dr. Saray Souza BLAST # Normal [facility] Comment on above: Performed By: #### C EDGARDO #### [facility] [address] [place] [address] Dr. Saray Souza BLAST % Normal [facility] Comment on above: Performed By: #### C EDGARDO #### [facility] [address] [place] [address] Dr. Saray Souza CORRECTED WBC Normal 4.0-11.0 [facility] Comment on above: Performed By: #### C EDGARDO #### [facility] [address] [place] [address] Dr. Saray Souza EOS # 0.00 103/ul Normal 0.00-0.70 [facility] Comment on above: Performed By: #### C EDGARDO #### [facility] [address] [place] [address] Dr. Saray Souza EOS% 0.0 % Critically low 0.9-7.0 The [facility] Comment on above: Performed By: #### C EDGARDO #### [facility] [address] [address] [address] Saray Souza HCT 43.6 % Normal 36.0-48.0 [facility] Comment on above: Performed By: #### C EDGARDO #### [facility] [address] [address] [address] Saray Souza HGB 14.7 g/dl Normal 12.0-16.0 [facility] Comment on above: Performed By: #### C EDGARDO #### [facility] [address] [place] [address] Dr. Saray Souza LYMPHM # 1.55 103/ul Normal 1.20-3.80 [facility] Comment on above: Performed By: #### C EDGARDO #### [facility] [address] [place] [address] Dr. Saray Souza LYMPHM% 6.0 % Critically low 20.5-60.0 [facility] Comment on above: Performed By: #### C EDGARDO #### [facility] [address] [place] [address] Dr. Saray Souza MCH 30.3 pg Normal 26.7-34.0 [facility] Comment on above: Performed By: #### C EDGARDO #### [facility] [address] [place] [address] Dr. Saray Souza MCHC 33.7 g/dl Normal 29.9-35.2 [facility] Comment on above: Performed By: #### C EDGARDO #### [facility] [address] [place] [address] Dr. Saray Souza MCV 89.9 fL Normal 81.0-99.0 [facility] Comment on above: Performed By: #### C EDGARDO #### [facility] [address] [place] [address] Dr. Saray Souza METAMYELOCYTE # Normal [facility] Comment on above: Performed By: #### C EDGARDO #### [facility] [address] [place] [address] Dr. Saray Souza METAMYELOCYTE % Normal [facility] Comment on above: Performed By: #### C EDGARDO #### [facility] [address] [address] [address] Saray Souaz MONOM# 2.06 103/ul Critically high 0.30-0.80 [facility] Comment on above: Performed By: #### C EDGARDO #### [facility] [address] [address] [address] Saray Souza MONOM% 8.0 % Normal 1.7-12.0 [facility] Comment on above: Performed By: #### C EDGARDO #### [facility] [address] [address] [address] Saray Souza MPV 8.8 fL Critically low 9.5-13.5 [facility] Comment on above: Performed By: #### C EDGARDO #### [facility] [address] [place] [address] Dr. Saray Souza MYELOCYTE # Normal [facility] Comment on above: Performed By: #### C EDGARDO #### [facility] [address] [place] [address] Dr. Saray Souza MYELOCYTE % Normal [facility] Comment on above: Performed By: #### C EDGARDO #### [facility] [address] [address] [address] Saray Souza NRBC Normal [facility] Comment on above: Performed By: #### C EDGARDO #### [facility] [address] [place] [address] Dr. Saray Souza PLT 397 103/ul Normal 150-450 [facility] Comment on above: Performed By: #### C EDGARDO #### [facility] [address] [place] [address] Dr. Saray Souza RBC 4.85 106/ul Normal 4.20-5.40 [facility] Comment on above: Performed By: #### C EDGARDO #### [facility] [address] [place] [address] Dr. Saray Souza RDW 12.0 % Normal 11.0-15.0 [facility] Comment on above: Performed By: #### C DAVIDMAN #### [facility] [address] [place] [address] Dr. Saray Souza SEG # 21.93 103/ul Critically high 1.40-6.50 [facility] Comment on above: Performed By: #### C BCMAN #### [facility] [address] [place] [address] Dr. Saray Souza SEG % 85.0 % Critically high 43.0-75.0 [facility] Comment on above: Performed By: #### C BCMAN #### [facility] [address] [place] [address] Dr. Saray Souza WBC 25.8 103/ul Critically high 4.0-11.0 [facility] Comment on above: Performed By: #### C BCMAN #### [facility] [address] [place] [address] Dr. Saray Souza CULTURE URINEon 04-17-2023 CULTURE URINE Culture Observations : LORENZO TO FOLLOW. Isolate 1 Enterococcus faecalis 20,000 cfu/mL of Normal [facility] Comment on above: Performed By: #### C BC #### [facility] [address] [place] [address] Dr. Saray Souza ER URINE PROFILEon 3 Bilirubin Ql (U) Negative Normal NEGATIVE [facility] Comment on above: Performed By: #### C BC #### [facility] [address] [place] [address] Dr. Saray Souza Clarity (U) CLEAR Normal CLEAR [facility] Comment on above: Performed By: #### C BC #### [facility] [address] [place] [address] Dr. Saray Souza Color (U) LT. YELLOW Normal YELLOW [facility] Comment on above: Performed By: #### C BC #### [facility] [address] [place] [address] Dr. Saray JHA A micrscopic examination will be performed if indicated. Normal [facility] Comment on above: Performed By: #### C BC #### [facility] [address] [place] [address] Dr. Saray Souza Glucose Ql (U) Negative Normal NEGATIVE [facility] Comment on above: Performed By: #### C BC #### [facility] [address] [place] [address] Dr. Saray Souza Hemoglobin Ql (U) Negative Normal NEGATIVE [facility] Comment on above: Performed By: #### C BC #### [facility] [address] [place] [address] Dr. Saray Souza Ketones Ql (U) Negative Normal NEGATIVE [facility] Comment on above: Performed By: #### C BC #### [facility] [address] [place] [address] Dr. Saray Souza LEUKOCYTES SMALL Abnormal NEGATIVE [facility] Comment on above: Performed By: #### C BC #### [facility] [address] [place] [address] Dr. Sarya Souza Nitrite Ql (U) Negative Normal NEGATIVE [facility] Comment on above: Performed By: #### C BC #### [facility] [address] [place] [address] Dr. Saray Souza pH (U) 6.5 [pH] Normal 5-9 [facility] Comment on above: Performed By: #### C BC #### [facility] [address] [place] [address] Dr. Saray Souza SPEC GRAVITY 1.025 Normal 1.005-<=1.025 [facility] Comment on above: Performed By: #### C BC #### [facility] [address] [place] [address] Dr. Saray Souza UA PROTEIN Negative Normal NEGATIVE/ TRACE [facility] Comment on above: Performed By: #### C BC #### [facility] [address] [place] [address] Dr. Saray Souza UR MICRO IND INDICATED Normal [facility] Comment on above: Performed By: #### C BC #### [facility] [address] [place] [address] Dr. Saray Souza Urobilinogen Qn (U) 0.2 {Janine'U}/dL Normal 0.2 - 1. 0 [facility] Comment on above: Performed By: #### C BC #### [facility] [address] [address] [address] Saray Souza URon 04-17-2023 , QUAL Negative Normal NEGATIVE [facility] Comment on above: Performed By: #### C BC #### [facility] [address] [address] [address] Saray Souza PROF 14(COMP METB)on 023 Albumin [Mass/Vol] 3.0 g/dL Critically low 3.4-5.0 [facility] Comment on above: Performed By: #### I NSULIN #### [facility] [address] [place] [address] Dr. Saray Souza Albumin/Globulin [Mass ratio] 0.9 {ratio} Normal [facility] Comment on above: Performed By: #### I NSULIN #### [facility] [address] [place] [address] Dr. Saray Souza ALP [Catalytic activity/Vol] 54 U/L Normal 46-116 [facility] Comment on above: Performed By: #### I NSULIN #### [facility] [address] [place] [address] Dr. Saray Souza ALT [Catalytic activity/Vol] 27 U/L Normal 14-59 [facility] Comment on above: Performed By: #### I NSULIN #### [facility] [address] [address] [address] Saray Souza Anion gap [Moles/Vol] 12.9 mmol/L Normal [facility] Comment on above: Performed By: #### I NSULIN #### [facility] [address] [address] [address] Saray Souza AST [Catalytic activity/Vol] 12 U/L Critically low 15-37 [facility] Comment on above: Performed By: #### I NSULIN #### [facility] [address] [place] [address] Dr. Saray Souza Bilirubin [Mass/Vol] 0.3 mg/dL Normal 0.2-1.0 [facility] Comment on above: Performed By: #### I NSULIN #### [facility] [address] [address] [address] Saray Souza Calcium [Mass/Vol] 8.1 mg/dL Critically low 8.5-10.1 [facility] Comment on above: Performed By: #### I NSULIN #### [facility] [address] [address] [address] Saray Souza Chloride [Moles/Vol] 102 mmol/L Normal 98-107 [facility] Comment on above: Performed By: #### I NSULIN #### [facility] [address] [address] [address] Saray Souza CO2 [Moles/Vol] 26.2 mmol/L Normal 21.0-32.0 [facility] Comment on above: Performed By: #### I NSULIN #### [facility] [address] [place] [address] Dr. Saray Souza Creatinine [Mass/Vol] 0.87 mg/dL Normal 0.55-1.02 [facility] Comment on above: Performed By: #### I NSULIN #### [facility] [address] [place] [address] Dr. Saray Souza EGFR-AF TONGAN >60 Normal >=60 [facility] Comment on above: Performed By: #### I NSULIN #### [facility] [address] [place] [address] Dr. Saray Souza EGFR-NON AF TONGAN >60 Normal >=60 [facility] Comment on above: Performed By: #### I NSULIN #### [facility] [address] [place] [address] Dr. Saray Souza Globulin (S) [Mass/Vol] 3.2 g/dL Normal [facility] Comment on above: Performed By: #### I NSULIN #### [facility] [address] [address] [address] Saray Souza Glucose [Mass/Vol] 206 mg/dL Critically high 74-106 [facility] Comment on above: Performed By: #### I NSULIN #### [facility] [address] [address] [address] Saray Souza Potassium [Moles/Vol] 4.1 mmol/L Normal 3.5-5.1 [facility] Comment on above: Performed By: #### I NSULIN #### [facility] [address] [address] [address] Saray Souza Protein [Mass/Vol] 6.2 g/dL Critically low 6.4-8.2 [facility] Comment on above: Performed By: #### I NSULIN #### [facility] [address] [place] [address] Dr. Saray Souza Sodium [Moles/Vol] 137 mmol/L Normal 136-145 [facility] Comment on above: Performed By: #### I NSULIN #### [facility] [address] [place] [address] Dr. Saray Souza Urea nitrogen [Mass/Vol] 19.0 mg/dL Critically high 7.0-18.0 [facility] Comment on above: Performed By: #### I NSULIN #### [facility] [address] [place] [address] Dr. Saray Souza Urea nitrogen/Creatinine [Mass ratio] 21.8 mg/mg Normal [facility] Comment on above: Performed By: #### I NSULIN #### [facility] [address] [place] [address] Dr. Saray Souza TSHon 04-17-2023 TSH 0.553 uIU/mL Normal 0.358-3.740 [facility] Comment on above: Performed By: #### I NSULIN #### [facility] [address] [address] [address] Saray Souza URINE MICROSCOPIC ONLYon BACTERIA TRACE Abnormal NONE SEEN [facility] Comment on above: Performed By: #### C BC #### [facility] [address] [place] [address] Dr. Saray Souza Bacteria identified Cx Nom (U) INDICATED Normal [facility] Comment on above: Performed By: #### C BC #### [facility] [address] [place] [address] Dr. Saray Souza CAST NONE SEEN Normal NONE SEEN [facility] Comment on above: Performed By: #### C BC #### [facility] [address] [place] [address] Dr. Saray Souza Crystals LM Nom (Urine sed) NONE SEEN Normal NONE SEEN [facility] Comment on above: Performed By: #### C BC #### [facility] [address] [place] [address] Dr. Saray Souza Epithelial cells LM Ql (Urine sed) RARE Normal NONE SEEN /RARE [facility] Comment on above: Performed By: #### C BC #### [facility] [address] [place] [address] Dr. Saray Souza MUCOUS NONE SEEN Normal NONE SEEN [facility] Comment on above: Performed By: #### C BC #### [facility] [address] [place] [address] Dr. Saray Souza RBC 0-2 Normal 0-2 [facility] Comment on above: Performed By: #### C BC #### [facility] [address] [place] [address] Dr. Saray Souza WBC 5-10 Abnormal NONE SEEN [facility] Comment on above: Performed By: #### C BC #### [facility] [address] [place] [address] Dr. Saray Souza XR CHEST 2 Von [...] CAROL RAMIREZ Date: 2023-04-17 10:45 Normal [facility] INSULINon 05-16-2023 Insulin 11.3 uIU/mL Normal 2.6-24.9 [facility] Comment on above: Performed By: #### I NSULIN #### [facility] [address] [place] [address] Dr. Saray Souza US KIDNEYS BLADDERon 023 [...] NANDINI MAYER Date: 2023-04-04 08:22 Normal [facility] INSULINon 04-02-2023 Insulin 37.5 uIU/mL Critically high 2.6-24.[address] [facility] Comment on above: Performed By: #### I NSULIN #### [facility] [address] [place] [address] Dr. Saary Souza CBC AUTO DIFFon 04-01-2023 BASO # 0.0 103/ul Normal 0.0-0.1 [facility] Comment on above: Performed By: #### C BC #### [facility] [address] [place] [address] Dr. Saray Souza Basophils/100 WBC (Bld) 0.5 % Normal 0.2-2.0 [facility] Comment on above: Performed By: #### C BC #### [facility] [address] [place] [address] Dr. Saray Souza EO # 0.2 103/ul Normal 0.0-0.7 [facility] Comment on above: Performed By: #### C BC #### [facility] [address] [place] [address] Dr. Saray Souza Eosinophils/100 WBC (Bld) 2.3 % Normal 0.9-7.0 [facility] Comment on above: Performed By: #### C BC #### [facility] [address] [place] [address] Dr. Saray Souza Erythrocyte distribution width (RBC) [Ratio] 11.9 % Normal 11.0-15.0 [facility] Comment on above: Performed By: #### C BC #### [facility] [address] [place] [address] Dr. Saray Souza Hematocrit (Bld) [Volume fraction] 42.2 % Normal 36.0-48.0 [facility] Comment on above: Performed By: #### C BC #### [facility] [address] [place] [address] Dr. Saray Souza Hemoglobin (Bld) [Mass/Vol] 13.7 g/dL Normal 12.0-16.0 [facility] Comment on above: Performed By: #### C BC #### [facility] [address] [place] [address] Dr. Saray Souza IG # 0.02 10e3/ul Normal 0.00-0.03 [facility] Comment on above: Performed By: #### C BC #### [facility] [address] [place] [address] Dr. Saray Souza IG % 0.3 % Normal 0.0-0.5 [facility] Comment on above: Performed By: #### C BC #### [facility] [address] [place] [address] Dr. Saray Souza LYMPH # 1.6 103/ul Normal 1.2-3.8 [facility] Comment on above: Performed By: #### C BC #### [facility] [address] [place] [address] Dr. Saray Souza Lymphocytes/100 WBC (Bld) 21.5 % Normal 20.5-60.0 [facility] Comment on above: Performed By: #### C BC #### [facility] [address] [place] [address] Dr. Saray Souza MANUAL DIFF REQ NO Normal [facility] Comment on above: Performed By: #### C BC #### [facility] [address] [place] [address] Dr. Saray Souza MCH (RBC) [Entitic mass] 30.0 pg Normal 26.7-34.0 [facility] Comment on above: Performed By: #### C BC #### [facility] [address] [place] [address] Dr. Saray Souza MCHC (RBC) [Mass/Vol] 32.5 g/dL Normal 29.9-35.2 [facility] Comment on above: Performed By: #### C BC #### [facility] [address] [place] [address] Dr. Saray Souza MCV (RBC) [Entitic vol] 92.5 fL Normal 81.0-99.0 [facility] Comment on above: Performed By: #### C BC #### [facility] [address] [place] [address] Dr. Saray Souza MONO # 0.7 103/ul Normal 0.3-0.8 [facility] Comment on above: Performed By: #### C BC #### [facility] [address] [place] [address] Dr. Saray Souza Monocytes/100 WBC (Bld) 9.6 % Normal 1.7-12.0 [facility] Comment on above: Performed By: #### C BC #### [facility] [address] [place] [address] Dr. Saray Souza NEUT # 5.0 103/ul Normal 1.4-6.5 [facility] Comment on above: Performed By: #### C BC #### [facility] [address] [place] [address] Dr. Saray Souza Neutrophils/100 WBC (Bld) 65.8 % Normal 43.0-75.0 [facility] Comment on above: Performed By: #### C BC #### [facility] [address] [place] [address] Dr. Saray Souza Platelet mean volume (Bld) [Entitic vol] 8.9 fL Critically low 9.5-13.5 [facility] Comment on above: Performed By: #### C BC #### [facility] [address] [place] [address] Dr. Saray Souza PLT 293 103/ul Normal 150-450 [facility] Comment on above: Performed By: #### C BC #### [facility] [address] [place] [address] Dr. Saray Souza RBC 4.56 106/ul Normal 4.20-5.40 [facility] Comment on above: Performed By: #### C BC #### [facility] [address] [place] [address] Dr. Saray Souza WBC 7.5 103/ul Normal 4.0-11.0 [facility] Comment on above: Performed By: #### C BC #### [facility] [address] [place] [address] Dr. Saray Souza CULTURE URINEon 04-01-2023 CULTURE URINE Culture Observations : MODERATE GROWTH OF MIXED GENITAL CARMELO. NO POTENTIAL PATHOGENS SEEN. Normal [facility] Comment on above: Performed By: #### C BC #### [facility] [address] [place] [address] Dr. Saray Souza FREE THYROXINE INDEX T7on FTI 2.51 Normal 1.30-4.50 [facility] Comment on above: Performed By: #### I NSULIN #### [facility] [address] [place] [address] Dr. Saray Souza T3U 33.0 % Normal 30.0-39.0 [facility] Comment on above: Performed By: #### I NSULIN #### [facility] [address] [place] [address] Dr. Saray Souza T4 [Mass/Vol] 7.60 ug/dL Normal 4.80-13.90 [facility] Comment on above: Performed By: #### I NSULIN #### [facility] [address] [place] [address] Dr. Saray Souza IRONon 04-01-2023 Iron [Mass/Vol] 151.0 ug/dL Normal 50.0-170.[address] [facility] Comment on above: Performed By: #### C EDGARDO #### [facility] [address] [place] [address] Dr. Saray Souza PROF 14(COMP METB)on 023 Albumin [Mass/Vol] 3.7 g/dL Normal 3.4-5.0 [facility] Comment on above: Performed By: #### C EDGARDO #### [facility] [address] [place] [address] Dr. Saray Souza Albumin/Globulin [Mass ratio] 1.1 {ratio} Normal [facility] Comment on above: Performed By: #### C EDGARDO #### [facility] [address] [place] [address] Dr. Saray Souza ALP [Catalytic activity/Vol] 81 U/L Normal 46-116 [facility] Comment on above: Performed By: #### C EDGARDO #### [facility] [address] [place] [address] Dr. Saray Souza ALT [Catalytic activity/Vol] 33 U/L Normal 14-59 [facility] Comment on above: Performed By: #### C EDGARDO #### [facility] [address] [place] [address] Dr. Saray Souza Anion gap [Moles/Vol] 10.2 mmol/L Normal [facility] Comment on above: Performed By: #### C EDGARDO #### [facility] [address] [place] [address] Dr. Saray Souza AST [Catalytic activity/Vol] 22 U/L Normal 15-37 [facility] Comment on above: Performed By: #### C EDGARDO #### [facility] [address] [place] [address] Dr. Saray Souza Bilirubin [Mass/Vol] 0.3 mg/dL Normal 0.2-1.0 [facility] Comment on above: Performed By: #### C EDGARDO #### [facility] [address] [address] [address] Saray Souza Calcium [Mass/Vol] 8.6 mg/dL Normal 8.5-10.1 [facility] Comment on above: Performed By: #### C EDGARDO #### [facility] [address] [address] [address] Saray Souza Chloride [Moles/Vol] 105 mmol/L Normal 98-107 [facility] Comment on above: Performed By: #### C EDGARDO #### [facility] [address] [place] [address] Dr. Saray Souza CO2 [Moles/Vol] 30.4 mmol/L Normal 21.0-32.[address] [facility] Comment on above: Performed By: #### C EDGARDO #### [facility] [address] [place] [address] Dr. Saray Souza Creatinine [Mass/Vol] 0.72 mg/dL Normal 0.55-1.02 [facility] Comment on above: Performed By: #### C EDGARDO #### [facility] [address] [place] [address] Dr. Saray Souza EGFR-AF TONGAN >60 Normal >=[address] [facility] Comment on above: Performed By: #### C EDGARDO #### [facility] [address] [place] [address] Dr. Saray Souza EGFR-NON AF TONGAN >60 Normal >=60 [facility] Comment on above: Performed By: #### C EDGARDO #### [facility] [address] [address] [address] Saray Souza Globulin (S) [Mass/Vol] 3.5 g/dL Normal [facility] Comment on above: Performed By: #### C EDGARDO #### [facility] [address] [place] [address] Dr. Saray Souza Glucose [Mass/Vol] 89 mg/dL Normal 74-106 [facility] Comment on above: Performed By: #### C EDGARDO #### [facility] [address] [place] [address] Dr. Saray Souza Potassium [Moles/Vol] 3.6 mmol/L Normal 3.5-5.1 [facility] Comment on above: Performed By: #### C EDGARDO #### [facility] [address] [place] [address] Dr. Saray Souza Protein [Mass/Vol] 7.2 g/dL Normal 6.4-8.2 [facility] Comment on above: Performed By: #### C EDGARDO #### [facility] [address] [address] [address] Saray Souza Sodium [Moles/Vol] 142 mmol/L Normal 136-145 [facility] Comment on above: Performed By: #### C EDGARDO #### [facility] [address] [place] [address] Dr. Saray Souza Urea nitrogen [Mass/Vol] 12.0 mg/dL Normal 7.0-18.0 [facility] Comment on above: Performed By: #### C EDGARDO #### [facility] [address] [place] [address] Dr. Saray Souza Urea nitrogen/Creatinine [Mass ratio] 16.7 mg/mg Normal [facility] Comment on above: Performed By: #### C EDGARDO #### [facility] [address] [place] [address] Dr. Saray Souza TSHon 04-01-2023 TSH 1.708 uIU/mL Normal 0.358-3.740 [facility] Comment on above: Performed By: #### I NSULIN #### [facility] [address] [place] [address] Dr. Saray Souza UA RANDOM W/MICROSCOPICon BACTERIA SMALL Abnormal NONE SEEN The [facility] Comment on above: Performed By: #### I NSULIN #### [facility] [address] [place] [address] Dr. Saray Souza Bilirubin Ql (U) Negative Normal NEGATIVE [facility] Comment on above: Performed By: #### I NSULIN #### [facility] [address] [place] [address] Dr. Saray Souza CAST NONE SEEN Normal NONE SEEN The [facility] Comment on above: Performed By: #### I NSULIN #### [facility] [address] [address] [address] Saray Souza Clarity (U) CLEAR Normal CLEAR [facility] Comment on above: Performed By: #### I NSULIN #### [facility] [address] [place] [address] Dr. Saray Souza Color (U) YELLOW Normal YELLOW The [facility] Comment on above: Performed By: #### I NSULIN #### [facility] [address] [place] [address] Dr. Saray Souza Crystals LM Nom (Urine sed) NONE SEEN Normal NONE SEEN [facility] Comment on above: Performed By: #### I NSULIN #### [facility] [address] [place] [address] Dr. Saray Souza Epithelial cells LM Ql (Urine sed) FEW Abnormal NONE SEEN /RARE The [facility] Comment on above: Performed By: #### I NSULIN #### [facility] [address] [place] [address] Dr. Saray Souza Glucose Ql (U) Negative Normal NEGATIVE [facility] Comment on above: Performed By: #### I NSULIN #### [facility] [address] [place] [address] Dr. Saray Souza Hemoglobin Ql (U) Negative Normal NEGATIVE [facility] Comment on above: Performed By: #### I NSULIN #### [facility] [address] [place] [address] Dr. Saray Souza Ketones Ql (U) TRACE Abnormal NEGATIVE [facility] Comment on above: Performed By: #### I NSULIN #### [facility] [address] [place] [address] Dr. Saray Souza LEUKOCYTES SMALL Abnormal NEGATIVE The [facility] Comment on above: Performed By: #### I NSULIN #### [facility] [address] [place] [address] Dr. Saray Suoza MUCOUS NONE SEEN Normal NONE SEEN The [facility] Comment on above: Performed By: #### I NSULIN #### [facility] [address] [place] [address] Dr. Saray Souza Nitrite Ql (U) Negative Normal NEGATIVE [facility] Comment on above: Performed By: #### I NSULIN #### [facility] [address] [place] [address] Dr. Saray Souza pH (U) 5.5 [pH] Normal 5-9 [facility] Comment on above: Performed By: #### I NSULIN #### [facility] [address] [place] [address] Dr. Saray Souza RBC 0-2 Normal 0-2 [facility] Comment on above: Performed By: #### I NSULIN #### [facility] [address] [place] [address] Dr. Saray Souza SPEC GRAVITY >=1.030 Abnormal 1.005-<=1.025 [facility] Comment on above: Performed By: #### I NSULIN #### [facility] [address] [place] [address] Dr. Saray Souza UA PROTEIN Negative Normal NEGATIVE/ TRACE The [facility] Comment on above: Performed By: #### I NSULIN #### [facility] [address] [place] [address] Dr. Saray Souza Urobilinogen Qn (U) 0.2 {Janine'U}/dL Normal 0.2 - 1. 0 [facility] Comment on above: Performed By: #### I NSULIN #### [facility] [address] [place] [address] Dr. Saray Souza WBC 5-10 Abnormal NONE SEEN The [facility] Comment on above: Performed By: #### I NSULIN #### [facility] [address] [place] [address] Dr. Saray Souza INSULINon 02-14-2023 Insulin 12.8 uIU/mL Normal 2.6-24.9 [facility] Comment on above: Performed By: #### C BC #### [facility] [address] [place] [address] Dr. Saray Souza CBC AUTO DIFFon 02-13-2023 BASO # 0.0 103/ul Normal 0.0-0.1 [facility] Comment on above: Performed By: #### C BC #### [facility] [address] [place] [address] Dr. Saray Souza Basophils/100 WBC (Bld) 0.4 % Normal 0.2-2.0 [facility] Comment on above: Performed By: #### C BC #### [facility] [address] [place] [address] Dr. Saray Souza EO # 0.1 103/ul Normal 0.0-0.7 [facility] Comment on above: Performed By: #### C BC #### [facility] [address] [place] [address] Dr. Saray Souza Eosinophils/100 WBC (Bld) 1.6 % Normal 0.9-7.0 [facility] Comment on above: Performed By: #### C BC #### [facility] [address] [place] [address] Dr. Saray Souza Erythrocyte distribution width (RBC) [Ratio] 11.9 % Normal 11.0-15.0 [facility] Comment on above: Performed By: #### C BC #### [facility] [address] [place] [address] Dr. Saray Souza Hematocrit (Bld) [Volume fraction] 41.9 % Normal 36.0-48.0 [facility] Comment on above: Performed By: #### C BC #### [facility] [address] [place] [address] Dr. Saray Souza Hemoglobin (Bld) [Mass/Vol] 13.7 g/dL Normal 12.0-16.0 [facility] Comment on above: Performed By: #### C BC #### [facility] [address] [place] [address] Dr. Saray Souza IG # 0.02 10e3/ul Normal 0.00-0.03 [facility] Comment on above: Performed By: #### C BC #### [facility] [address] [place] [address] Dr. Saray Souza IG % 0.3 % Normal 0.0-0.5 [facility] Comment on above: Performed By: #### C BC #### [facility] [address] [place] [address] Dr. Saray Souza LYMPH # 1.4 103/ul Normal 1.2-3.8 [facility] Comment on above: Performed By: #### C BC #### [facility] [address] [place] [address] Dr. Saray Souza Lymphocytes/100 WBC (Bld) 18.6 % Critically low 20.5-60.0 [facility] Comment on above: Performed By: #### C BC #### [facility] [address] [place] [address] Dr. Saray Souaz MANUAL DIFF REQ NO Normal [facility] Comment on above: Performed By: #### C BC #### [facility] [address] [place] [address] Dr. Saray Souza MCH (RBC) [Entitic mass] 29.9 pg Normal 26.7-34.0 [facility] Comment on above: Performed By: #### C BC #### [facility] [address] [place] [address] Dr. Saray Souza MCHC (RBC) [Mass/Vol] 32.7 g/dL Normal 29.9-35.2 [facility] Comment on above: Performed By: #### C BC #### [facility] [address] [place] [address] Dr. Saray Souza MCV (RBC) [Entitic vol] 91.5 fL Normal 81.0-99.0 [facility] Comment on above: Performed By: #### C BC #### [facility] [address] [place] [address] Dr. Saray Souza MONO # 0.6 103/ul Normal 0.3-0.8 [facility] Comment on above: Performed By: #### C BC #### [facility] [address] [place] [address] Dr. Saray Souza Monocytes/100 WBC (Bld) 8.3 % Normal 1.7-12.0 [facility] Comment on above: Performed By: #### C BC #### [facility] [address] [place] [address] Dr. Saray Souza NEUT # 5.5 103/ul Normal 1.4-6.5 [facility] Comment on above: Performed By: #### C BC #### [facility] [address] [place] [address] Dr. Saray Souza Neutrophils/100 WBC (Bld) 70.8 % Normal 43.0-75.0 [facility] Comment on above: Performed By: #### C BC #### [facility] [address] [place] [address] Dr. Saray Souza Platelet mean volume (Bld) [Entitic vol] 9.0 fL Critically low 9.5-13.5 [facility] Comment on above: Performed By: #### C BC #### [facility] [address] [place] [address] Dr. Saray Souza PLT 271 103/ul Normal 150-450 [facility] Comment on above: Performed By: #### C BC #### [facility] [address] [place] [address] Dr. Saray Souza RBC 4.58 106/ul Normal 4.20-5.40 [facility] Comment on above: Performed By: #### C BC #### [facility] [address] [place] [address] Dr. Saray Souza WBC 7.7 103/ul Normal 4.0-11.0 [facility] Comment on above: Performed By: #### C BC #### [facility] [address] [place] [address] Dr. Saray Souza FREE THYROXINE INDEX T7on FTI 2.56 Normal 1.30-4.50 [facility] Comment on above: Performed By: #### I NSULIN #### [facility] [address] [place] [address] Dr. Saray Souza T3U 36.0 % Normal 30.0-39.0 [facility] Comment on above: Performed By: #### I NSULIN #### [facility] [address] [place] [address] Dr. Saray Souza T4 [Mass/Vol] 7.10 ug/dL Normal 4.80-13.90 [facility] Comment on above: Performed By: #### I NSULIN #### [facility] [address] [place] [address] Dr. Saray Souza IRONon 02-13-2023 Iron [Mass/Vol] 130.0 ug/dL Normal 50.0-170.0 [facility] Comment on above: Performed By: #### C BCMAN #### [facility] [address] [place] [address] Dr. Saray Souza PROF 14(COMP METB)on 023 Albumin [Mass/Vol] 3.8 g/dL Normal 3.4-5.0 [facility] Comment on above: Performed By: #### I NSULIN #### [facility] [address] [place] [address] Dr. Saray Souza Albumin/Globulin [Mass ratio] 1.2 {ratio} Normal [facility] Comment on above: Performed By: #### I NSULIN #### [facility] [address] [place] [address] Dr. Saray Souza ALP [Catalytic activity/Vol] 82 U/L Normal 46-116 [facility] Comment on above: Performed By: #### I NSULIN #### [facility] [address] [place] [address] Dr. Saray Souza ALT [Catalytic activity/Vol] 25 U/L Normal 14-59 [facility] Comment on above: Performed By: #### I NSULIN #### [facility] [address] [place] [address] Dr. Saray Souza Anion gap [Moles/Vol] 12.7 mmol/L Normal [facility] Comment on above: Performed By: #### I NSULIN #### [facility] [address] [place] [address] Dr. Saray Souza AST [Catalytic activity/Vol] 19 U/L Normal 15-37 [facility] Comment on above: Performed By: #### I NSULIN #### [facility] [address] [address] [address] Saray Souza Bilirubin [Mass/Vol] 0.3 mg/dL Normal 0.2-1.0 [facility] Comment on above: Performed By: #### I NSULIN #### [facility] [address] [address] [address] Saray Souza Calcium [Mass/Vol] 8.8 mg/dL Normal 8.5-10.1 [facility] Comment on above: Performed By: #### I NSULIN #### [facility] [address] [address] [address] Saray Souza Chloride [Moles/Vol] 101 mmol/L Normal 98-107 [facility] Comment on above: Performed By: #### I NSULIN #### [facility] [address] [address] [address] Saray Souza CO2 [Moles/Vol] 27.3 mmol/L Normal 21.0-32.0 [facility] Comment on above: Performed By: #### I NSULIN #### [facility] [address] [address] [address] Saray Souza Creatinine [Mass/Vol] 0.69 mg/dL Normal 0.55-1.02 [facility] Comment on above: Performed By: #### I NSULIN #### [facility] [address] [address] [address] Saray Souza EGFR-AF TONGAN >60 Normal >=[address] [facility] Comment on above: Performed By: #### I NSULIN #### [facility] [address] [address] [address] Saray Souza EGFR-NON AF TONGAN >60 Normal >=60 [facility] Comment on above: Performed By: #### I NSULIN #### [facility] [address] [address] [address] Saray Souza Globulin (S) [Mass/Vol] 3.3 g/dL Normal [facility] Comment on above: Performed By: #### I NSULIN #### [facility] [address] [address] [address] Saray Souza Glucose [Mass/Vol] 83 mg/dL Normal 74-106 [facility] Comment on above: Performed By: #### I NSULIN #### [facility] [address] [address] [address] Saray Souza Potassium [Moles/Vol] 4.0 mmol/L Normal 3.5-5.1 [facility] Comment on above: Performed By: #### I NSULIN #### [facility] [address] [address] [address] Saray Souza Protein [Mass/Vol] 7.1 g/dL Normal 6.4-8.2 [facility] Comment on above: Performed By: #### I NSULIN #### [facility] [address] [address] [address] Saray Souza Sodium [Moles/Vol] 137 mmol/L Normal 136-145 [facility] Comment on above: Performed By: #### I NSULIN #### [facility] [address] [address] [address] Saray Souza Urea nitrogen [Mass/Vol] 10.0 mg/dL Normal 7.0-18.0 [facility] Comment on above: Performed By: #### I NSULIN #### [facility] [address] [address] [address] Saray Souza Urea nitrogen/Creatinine [Mass ratio] 14.5 mg/mg Normal [facility] Comment on above: Performed By: #### I NSULIN #### [facility] [address] [address] [address] Saray Souza TSHon 02-13-2023 TSH 2.745 uIU/mL Normal 0.358-3.740 [facility] Comment on above: Performed By: #### I NSULIN #### [facility] [address] [address] [address] Saray Souza AMYLASEon 02-04-2023 Amylase [Catalytic activity/Vol] 45 U/L Normal 25-115 [facility] Comment on above: Performed By: #### T SH, CMP, HSTROPN, LIPA, KELLE #### [facility] [address] [address] [address] Saray Souza CBC AUTO DIFFon 02-04-2023 BASO # 0.0 103/ul Normal 0.0-0.1 [facility] Comment on above: Performed By: #### C BC #### [facility] [address] [address] [address] Saray Souza Basophils/100 WBC (Bld) 0.4 % Normal 0.2-2.0 [facility] Comment on above: Performed By: #### C BC #### [facility] [address] [place] [address] Dr. Saray Souza EO # 0.1 103/ul Normal 0.0-0.7 [facility] Comment on above: Performed By: #### C BC #### [facility] [address] [place] [address] Dr. Saray Souza Eosinophils/100 WBC (Bld) 1.7 % Normal 0.9-7.0 [facility] Comment on above: Performed By: #### C BC #### [facility] [address] [place] [address] Dr. Saray Souza Erythrocyte distribution width (RBC) [Ratio] 12.0 % Normal 11.0-15.0 [facility] Comment on above: Performed By: #### C BC #### [facility] [address] [place] [address] Dr. Saray Souza Hematocrit (Bld) [Volume fraction] 42.3 % Normal 36.0-48.0 [facility] Comment on above: Performed By: #### C BC #### [facility] [address] [place] [address] Dr. Saray Souza Hemoglobin (Bld) [Mass/Vol] 13.9 g/dL Normal 12.0-16.0 [facility] Comment on above: Performed By: #### C BC #### [facility] [address] [place] [address] Dr. Saray Souza IG # 0.03 10e3/ul Normal 0.00-0.03 [facility] Comment on above: Performed By: #### C BC #### [facility] [address] [place] [address] Dr. Saray Souza IG % 0.4 % Normal 0.0-0.5 [facility] Comment on above: Performed By: #### C BC #### [facility] [address] [place] [address] Dr. Saray Souza LYMPH # 1.5 103/ul Normal 1.2-3.8 [facility] Comment on above: Performed By: #### C BC #### [facility] [address] [place] [address] Dr. Saray Souza Lymphocytes/100 WBC (Bld) 20.4 % Critically low 20.5-60.0 [facility] Comment on above: Performed By: #### C BC #### [facility] [address] [place] [address] Dr. Saray Souza MANUAL DIFF REQ NO Normal [facility] Comment on above: Performed By: #### C BC #### [facility] [address] [place] [address] Dr. Saray Souza MCH (RBC) [Entitic mass] 30.0 pg Normal 26.7-34.0 [facility] Comment on above: Performed By: #### C BC #### [facility] [address] [place] [address] Dr. Saray Souza MCHC (RBC) [Mass/Vol] 32.9 g/dL Normal 29.9-35.2 [facility] Comment on above: Performed By: #### C BC #### [facility] [address] [place] [address] Dr. Saray Souza MCV (RBC) [Entitic vol] 91.2 fL Normal 81.0-99.0 [facility] Comment on above: Performed By: #### C BC #### [facility] [address] [place] [address] Dr. Saray Souza MONO # 0.6 103/ul Normal 0.3-0.8 [facility] Comment on above: Performed By: #### C BC #### [facility] [address] [place] [address] Dr. Saray Souza Monocytes/100 WBC (Bld) 7.7 % Normal 1.7-12.0 [facility] Comment on above: Performed By: #### C BC #### [facility] [address] [place] [address] Dr. Saray Souza NEUT # 5.2 103/ul Normal 1.4-6.5 [facility] Comment on above: Performed By: #### C BC #### [facility] [address] [place] [address] Dr. Saray Souza Neutrophils/100 WBC (Bld) 69.4 % Normal 43.0-75.0 [facility] Comment on above: Performed By: #### C BC #### [facility] [address] [place] [address] Dr. Saray Souza Platelet mean volume (Bld) [Entitic vol] 9.0 fL Critically low 9.5-13.5 [facility] Comment on above: Performed By: #### C BC #### [facility] [address] [place] [address] Dr. Saray Souza PLT 292 103/ul Normal 150-450 [facility] Comment on above: Performed By: #### C BC #### [facility] [address] [place] [address] Dr. Saray Souza RBC 4.64 106/ul Normal 4.20-5.40 [facility] Comment on above: Performed By: #### C BC #### [facility] [address] [place] [address] Dr. Saray Souza WBC 7.5 103/ul Normal 4.0-11.0 [facility] Comment on above: Performed By: #### C BC #### [facility] [address] [place] [address] Dr. Saray Souza CULTURE URINEon 02-04-2023 CULTURE URINE Culture Observations : LIGHT GROWTH OF MIXED GENITAL CARMELO. NO POTENTIAL PATHOGENS SEEN. Normal The [facility] Comment on above: Performed By: #### C BC #### [facility] [address] [place] [address] Dr. Saray Souza ER URINE PROFILEon 3 Bilirubin Ql (U) Negative Normal NEGATIVE [facility] Comment on above: Performed By: #### C BC #### [facility] [address] [place] [address] Dr. Saray Souza Clarity (U) CLEAR Normal CLEAR [facility] Comment on above: Performed By: #### C BC #### [facility] [address] [place] [address] Dr. Saray Souza Color (U) LT. YELLOW Normal YELLOW [facility] Comment on above: Performed By: #### C BC #### [facility] [address] [place] [address] Dr. Saray JHA A micrscopic examination will be performed if indicated. Normal The [facility] Comment on above: Performed By: #### C BC #### [facility] [address] [place] [address] Dr. Saray Souza Glucose Ql (U) Negative Normal NEGATIVE [facility] Comment on above: Performed By: #### C BC #### [facility] [address] [place] [address] Dr. Saray Souza Hemoglobin Ql (U) Negative Normal NEGATIVE [facility] Comment on above: Performed By: #### C BC #### [facility] [address] [place] [address] Dr. Saray Souza Ketones Ql (U) Negative Normal NEGATIVE [facility] Comment on above: Performed By: #### C BC #### [facility] [address] [place] [address] Dr. Saray Souza LEUKOCYTES MODERATE Abnormal NEGATIVE [facility] Comment on above: Performed By: #### C BC #### [facility] [address] [place] [address] Dr. Saray Souza Nitrite Ql (U) Negative Normal NEGATIVE [facility] Comment on above: Performed By: #### C BC #### [facility] [address] [place] [address] Dr. Saray Souza pH (U) 5.5 [pH] Normal 5-9 [facility] Comment on above: Performed By: #### C BC #### [facility] [address] [place] [address] Dr. Saray Souza SPEC GRAVITY >=1.030 Abnormal 1.005-<=1.025 [facility] Comment on above: Performed By: #### C BC #### [facility] [address] [place] [address] Dr. Saray Souza UA PROTEIN Negative Normal NEGATIVE/ TRACE [facility] Comment on above: Performed By: #### C BC #### [facility] [address] [place] [address] Dr. Saray Souza UR MICRO IND INDICATED Normal [facility] Comment on above: Performed By: #### C BC #### [facility] [address] [place] [address] Dr. Saray Souza Urobilinogen Qn (U) 0.2 {Janine'U}/dL Normal 0.2 - 1. 0 [facility] Comment on above: Performed By: #### C BC #### [facility] [address] [place] [address] Dr. Saray Souza LIPASEon 02-04-2023 Lipase [Catalytic activity/Vol] 97.0 U/L Normal 73.0-393.0 [facility] Comment on above: Performed By: #### T SH, CMP, HSTROPN, LIPA, KELLE #### [facility] [address] [place] [address] Dr. Saray Souza URon 02-04-2023 , QUAL Negative Normal NEGATIVE [facility] Comment on above: Performed By: #### C BC #### [facility] [address] [place] [address] Dr. Saray Souza PROF 14(COMP METB)on 023 Albumin [Mass/Vol] 3.5 g/dL Normal 3.4-5.0 [facility] [place] [facility] Comment on above: Performed By: #### T SH, CMP, HSTROPN, LIPA, KELLE #### [facility] [address] [place] [address] Dr. Saray Souza Albumin/Globulin [Mass ratio] 1.2 {ratio} Normal [facility] Comment on above: Performed By: #### T SH, CMP, HSTROPN, LIPA, KELLE #### [facility] [address] [place] [address] Dr. Saray Souza ALP [Catalytic activity/Vol] 78 U/L Normal 46-116 [facility] Comment on above: Performed By: #### T SH, CMP, HSTROPN, LIPA, KELLE #### [facility] [address] [place] [address] Dr. Saray Souza ALT [Catalytic activity/Vol] 24 U/L Normal 14-59 [facility] Comment on above: Performed By: #### T SH, CMP, HSTROPN, LIPA, KELLE #### [facility] [address] [place] [address] Dr. Saray Souza Anion gap [Moles/Vol] 7.9 mmol/L Normal [facility] Comment on above: Performed By: #### T SH, CMP, HSTROPN, LIPA, KELLE #### [facility] [address] [place] [address] Dr. Saray Souza AST [Catalytic activity/Vol] 16 U/L Normal 15-37 [facility] Comment on above: Performed By: #### T SH, CMP, HSTROPN, LIPA, KELLE #### [facility] [address] [place] [address] Dr. Saray Souza Bilirubin [Mass/Vol] 0.3 mg/dL Normal 0.2-1.0 [facility] Comment on above: Performed By: #### T SH, CMP, HSTROPN, LIPA, KELLE #### [facility] [address] [place] [address] Dr. Saray Souza Calcium [Mass/Vol] 8.6 mg/dL Normal 8.5-10.1 [facility] [place] [facility] Comment on above: Performed By: #### T SH, CMP, HSTROPN, LIPA, KELLE #### [facility] [address] [address] [address] Saray Souza Chloride [Moles/Vol] 105 mmol/L Normal 98-107 [facility] Comment on above: Performed By: #### T SH, CMP, HSTROPN, LIPA, KELLE #### [facility] [address] [address] [address] Saray Souza CO2 [Moles/Vol] 28.9 mmol/L Normal 21.0-32.0 [facility] Comment on above: Performed By: #### T SH, CMP, HSTROPN, LIPA, KELLE #### [facility] [address] [address] [address] Saray Souza Creatinine [Mass/Vol] 0.67 mg/dL Normal 0.55-1.02 [facility] Comment on above: Performed By: #### T SH, CMP, HSTROPN, LIPA, KELLE #### [facility] [address] [place] [address] Dr. Saray Souza EGFR-AF TONGAN >60 Normal >=60 [facility] Comment on above: Performed By: #### T SH, CMP, HSTROPN, LIPA, KELLE #### [facility] [address] [place] [address] Dr. Saray Souza EGFR-NON AF TONGAN >60 Normal >=60 [facility] Comment on above: Performed By: #### T SH, CMP, HSTROPN, LIPA, KELLE #### [facility] [address] [place] [address] Dr. Saray Souza Globulin (S) [Mass/Vol] 3.0 g/dL Normal [facility] Comment on above: Performed By: #### T SH, CMP, HSTROPN, LIPA, KELLE #### [facility] [address] [place] [address] Dr. Saray Souza Glucose [Mass/Vol] 97 mg/dL Normal 74-106 [facility] [place] [facility] Comment on above: Performed By: #### T SH, CMP, HSTROPN, LIPA, KELLE #### [facility] [address] [address] [address] Saray Souza Potassium [Moles/Vol] 3.8 mmol/L Normal 3.5-5.1 [facility] Comment on above: Performed By: #### T SH, CMP, HSTROPN, LIPA, KELLE #### [facility] [address] [address] [address] Saray Souza Protein [Mass/Vol] 6.5 g/dL Normal 6.4-8.2 [facility] Comment on above: Performed By: #### T SH, CMP, HSTROPN, LIPA, KELLE #### [facility] [address] [address] [address] Saray Souza Sodium [Moles/Vol] 138 mmol/L Normal 136-145 [facility] Comment on above: Performed By: #### T SH, CMP, HSTROPN, LIPA, KELLE #### [facility] [address] [place] [address] Dr. Saray Souza Urea nitrogen [Mass/Vol] 13.0 mg/dL Normal 7.0-18.0 [facility] Comment on above: Performed By: #### T SH, CMP, HSTROPN, LIPA, KELLE #### [facility] [address] [address] [address] Saray Souza Urea nitrogen/Creatinine [Mass ratio] 19.4 mg/mg Normal The [facility] Comment on above: Performed By: #### T SH, CMP, HSTROPN, LIPA, KELLE #### [facility] [address] [place] [address] Dr. Saray Souza TROPONIN, HIGH SENSITIVITYon 02-04-2023 HSTROP 4.0 pg/mL Normal 4.0-51.3 The [facility] Comment on above: Result Comment: CUT- OFF POINTS HAVE BEEN ESTABLISHED BASED ON THE FOURTH UNIVERSAL DEFINITIONS OF MYOCARDIAL INFARCTION. THE UPPER REFERENCE LIMIT (URL) OF TROPONIN, DEFINED THE 99TH PERCENTILE OF cTnI DISTRIBUTION IN A REFERENCE POPULATION, HAS BEEN CONFIRMED THE DECISION THRESHOLD FOR ME DIAGNOSIS. Performed By: #### T SH, CMP, HSTROPN, LIPA, KELLE #### [facility] [address] [place] [address] Dr. Saray Souza TSHon 02-04-2023 TSH 2.478 uIU/mL Normal 0.358-3.740 [facility] Comment on above: Performed By: #### T SH, CMP, HSTROPN, LIPA, KELLE #### [facility] [address] [place] [address] Dr. Saray Souza URINE MICROSCOPIC ONLYon BACTERIA MODERATE Abnormal NONE SEEN The [facility] Comment on above: Performed By: #### C BC #### [facility] [address] [place] [address] Dr. Saray Souza Bacteria identified Cx Nom (U) INDICATED Normal The [facility] Comment on above: Performed By: #### C BC #### [facility] [address] [place] [address] Dr. Saray Souza CAST NONE SEEN Normal NONE SEEN [facility] Comment on above: Performed By: #### C BC #### [facility] [address] [place] [address] Dr. Saray Souza Crystals LM Nom (Urine sed) NONE SEEN Normal NONE SEEN [facility] Comment on above: Performed By: #### C BC #### [facility] [address] [place] [address] Dr. Saray Souza Epithelial cells LM Ql (Urine sed) MODERATE Abnormal NONE SEEN /RARE The [facility] Comment on above: Performed By: #### C BC #### [facility] [address] [place] [address] Dr. Saray Souza MUCOUS NONE SEEN Normal NONE SEEN The [facility] Comment on above: Performed By: #### C BC #### [facility] [address] [place] [address] Dr. Saray Souza RBC 5-10 Abnormal 0-2 [facility] Comment on above: Performed By: #### C BC #### [facility] [address] [place] [address] Dr. Saray Souza WBC 10-20 Abnormal NONE SEEN The [facility] Comment on above: Performed By: #### C BC #### [facility] [address] [address] [address] Saray Sou[facility] SARS-CoV-2 (COVID-19) RNA DAYDAY+probe Ql (Unsp spec) Not detected Normal NOT DETECTED The [facility] Comment on above: Result Comment: When diagnostic [...] for this test is supported by the Fac Engineer of Health and Human Service's declaration that [...] used). Performed By: #### C BC #### [facility] [address] [place] [address] Dr. Saray Souza INFLUENZA A AND B AGon 10-20 INFLUANEGH SEE BELOW Normal The [facility] Comment on above: Result Comment: Nega tive for Flu A protein angiten. Infection due to Flu A cannot be ruled out. Flu A angiten in the sample may be below the detection limit of the test. Performed By: #### C BC #### [facility] [address] [place] [address] Dr. Saray Souza INFLUBNEG SEE BELOW Normal [facility] Comment on above: Result Comment: Nega tive for Flu B protein antigen. Infection due to Flu B cannot be ruled out. Flu B antigen in the sample may be below the detection limit of the test. Performed By: #### C BC #### [facility] [address] [place], [place] [id number] Dr. Saray Souza INFLUENZA A AG Negative Normal NEGATIVE SEE COMMENT The [facility] Comment on above: Performed By: #### C BC #### [facility] [address] [address] [address] Saray Souza INFLUENZA B AG Negative Normal NEGATIVE SEE COMMENT [facility] Comment on above: Performed By: #### C BC #### [facility] [address] [address] [address] Saray Souza INTERNAL CONTROLS Within Normal Limits Normal Wi thin Normal Limits [facility] Comment on above: Performed By: #### C BC #### [facility] [address] [address] [address] Saray Souza STREPT SCREENon 10-20-2022 STREP SCREEN A Positive Abnormal NEGATIVE [facility] Comment on above: Performed By: #### C BC #### [facility] [address] [place] [address] Dr. Saray Souza XR SHOULDER RT INJon [...] by: ADRIANA MENDEZ Date: 2022-07-18 17:05 Normal [facility] MRI SHOULDER RT WO CONon MRI SHOULDER [...] by: ADRIANA MENDEZ Date: 2022-07-10 10:10 Normal [facility] XR ARTHRO LD RTon 07-10-20 22 XR ARTHRO [facility] RT EXAMINATION: XR ARTHRO [facility] RT HISTORY: Impingement syndrome of right shoulder [...] ADRIANA MENDEZ Date: 2022-07-10 10:01 Normal [facility] No Panel Informationon 03-18 Right Eye Reliability was good. Findings include normal observations. Left Eye Reliability was good. Findings include normal observations. Notes I personally reviewed the visual zaldivar performed by this patient on 03/18/22. The visual zaldivar are normal OU with good fixation. Francisco Ayers MD [facility] Study observation (narrative) [facility] Progress Noteson 03-18-2022 [facility] Worker Authentication Interface Message Text Referred by [facility] for disc edema, concern for IIH - [...] disc edema - F/u with PCP (Melodie Ashton, [place]) regarding headaches-- will fax information to [phone] - Offered referral to neurology, patient prefers [...] her PCP. Francisco Ayers MD Normal [facility] Vital Signs Date Time Vital Sign Value Performing Clinician Facility 12-27-2024 09:53-0500 Body mass index (BMI) [Ratio] 45.69 kg/m2 Kelle BAE Work Phone: [facility] 12-27-2024 09:53-0500 Body weight 144.43 kg Kelle BAE Work Phone: [facility] 12-27-2024 09:53-0500 Diastolic blood pressure 78 mm[Hg] Kelle BAE Work Phone: [facility] 12-27-2024 09:53-0500 Systolic blood pressure 130 mm[Hg] Kelle BAE Work Phone: [facility] 12-05-2024 15:49-0500 Body mass index (BMI) [Ratio] 45.92 kg/m2 Graham Dante DO Work Phone: [facility] 12-05-2024 15:49-0500 Body weight 145.15 kg Graham Dante DO Work Phone: [facility] 12-05-2024 15:49-0500 Diastolic blood pressure 70 mm[Hg] Graham Dante DO Work Phone: [facility] 12-05-2024 15:49-0500 Systolic blood pressure 120 mm[Hg] Graham Dante DO Work Phone: [facility] 12-02-2024 19:42-0500 Diastolic blood pressure 80 mm[Hg] Nic Estevez MD Work Phone: [facility] 12-02-2024 19:42-0500 Systolic blood pressure 122 mm[Hg] Nic Estevez MD Work Phone: [facility] 12-02-2024 19:40-0500 Body temperature 99.39 [degF] Nic Estevez MD Work Phone: [facility] 12-02-2024 19:38-0500 Heart rate 105 /min Nic Estevez MD Work Phone: [facility] 12-02-2024 19:38-0500 Respiratory rate 18 /min Nic Estevez MD Work Phone: [facility] 12-02-2024 19:38-0500 SaO2% (BldA) [Mass fraction] 99 % Nic Estevez MD Work Phone: [facility] 11-03-2024 13:25-0500 Body mass index (BMI) [Ratio] 46.4 kg/m2 [facility] Nurse [facility] 11-03-2024 13:25-0500 Body weight 146.69 kg [facility] Nurse [facility] 08-29-2024 10:53-0400 Body mass index (BMI) [Ratio] 45.89 kg/m2 Kelle Mccook PA Work Phone: [facility] 08-29-2024 10:53-0400 Body weight 145.06 kg Kelle Melany PA Work Phone: [facility] 08-29-2024 10:53-0400 Diastolic blood pressure 70 mm[Hg] Kelle Mccook PA Work Phone: [facility] 08-29-2024 10:53-0400 Systolic blood pressure 120 mm[Hg] Kelle Melany PA Work Phone: [facility] 07-26-2024 08:36-0400 Body height 177.8 cm Kelle Mccook PA Work Phone: [facility] 07-26-2024 08:36-0400 Body mass index (BMI) [Ratio] 46.06 kg/m2 Kelle Mccook PA Work Phone: [facility] 07-26-2024 08:36-0400 Body weight 145.6 kg Kelle Melany PA Work Phone: [facility] 07-26-2024 08:36-0400 Diastolic blood pressure 84 mm[Hg] Kelle BAE Work Phone: [facility] 07-26-2024 08:36-0400 Systolic blood pressure 130 mm[Hg] Kelle BAE Work Phone: [facility] 2024 09:04-0400 Blood Pressure Location JANNETH SMITH [facility] 2024 09:04-0400 Diastolic blood pressure 82 mm[Hg] JANNETH SMITH [facility] 2024 09:04-0400 Heart rate 74 /min JANNETH SMITH [facility] 2024 09:04-0400 Respiratory rate 16 /min JANNETH SMITH [facility] 2024 09:04-0400 Systolic blood pressure 125 mm[Hg] JANNETH SMITH [facility] 03-08-2024 14:09-0400 Blood Pressure Location Yonis MIRANDA [facility] 03-08-2024 14:09-0400 Diastolic blood pressure 84 mm[Hg] Yonis FORDL [facility] 03-08-2024 14:09-0400 Heart rate 76 /min Yonis NILL [facility] [place] 03-08-2024 14:09-0400 Respiratory rate 16 /min Yonis NILL [facility] 03-08-2024 14:09-0400 Systolic blood pressure 118 mm[Hg] Yonis FORDL [facility] 01-19-2024 09:34-0500 Blood Pressure Location JANNETH SMITH [facility] 01-19-2024 09:34-0500 Diastolic blood pressure 84 mm[Hg] JANNETH EMILIANA [facility] 01-19-2024 09:34-0500 Heart rate 80 /min JANNETH SMITH [facility] 01-19-2024 09:34-0500 Respiratory rate 16 /min JANNETH SMITH [facility] 01-19-2024 09:34-0500 Systolic blood pressure 132 mm[Hg] JANNETH MADRIGALRY [facility] 12-02-2023 08:40-0500 Body height 180.34 cm Taniya Mary Grace Other [facility] Other 12-02-2023 08:40-0500 Body mass index (BMI) [Ratio] 45.1 kg/m2 Taniya Mary Grace Other [facility] Other 12-02-2023 08:40-0500 Body temperature 97.5 [degF] Taniya Mary Grace Other [facility] Other 12-02-2023 08:40-0500 Body weight 146.69 kg Taniya Mary Grace Other [facility] Other 12-02-2023 08:40-0500 Diastolic blood pressure 83 mm[Hg] Taniya Mary Grace Other [facility] Other 12-02-2023 08:40-0500 Respiratory rate 18 /min Taniya Mary Grace Other [facility] Other 12-02-2023 08:40-0500 SaO2% (BldA) [Mass fraction] 98 % Taniya Mary Grace Other [facility] Other 12-02-2023 08:40-0500 Systolic blood pressure 136 mm[Hg] Taniya Mary Grace Other [facility] Other 11-19-2021 15:30-0500 Body height 180.34 cm Nandini Pantoja Other [facility] Other 11-19-2021 15:30-0500 Body mass index (BMI) [Ratio] 41.56 kg/m2 Nandini Pantoja Other [facility] Other 11-19-2021 15:30-0500 Body weight 135.17 kg Nandini Pantoja Other [facility] Other 11-19-2021 15:30-0500 Diastolic blood pressure 76 mm[Hg] Nandini Scarlett Other [facility] Other 11-19-2021 15:30-0500 Systolic blood pressure 128 mm[Hg] Nandini Scarlett Other [facility] Other Encounters Encounter Date Encounter Type Care Provider Facility Start: 12-27-2024 End: 12-27-2024 Bamboo flowsheet Kelle BAE Work Phone: [facility] Start: 12-27-2024 End: 12-27-2024 Bamboo flowsheet Kelle BAE Work Phone: [facility] Start: 12-27-2024 End: 12-27-2024 Patient encounter procedure Kelle BAE Work Phone: [facility] Start: 12-27-2024 End: 12-27-2024 Periodic preventive med est patient 18-39 yrs Kelle BAE Work Phone: [facility] Comment on above: 17 weeks gestation o f ; Second trimester ; Screening, , for anatomic survey; Exposure to STD; Vaginal discharge; Well woman exam with routine gynecological exam; Sinus congestion Start: 12-23-2024 End: 12-23-2024 Clinisync Result Encounter Graham Dante DO Work Phone: [facility] External Department Unsolicited Start: 12-23-2024 End: 12-23-2024 Clinisync Result Encounter Graham Dante DO Work Phone: [facility] External Department Unsolicited Start: 12-05-2024 End: 12-05-2024 Office outpatient visit 15 minutes Graham Dante DO Work Phone: [facility] Comment on above: 14 weeks gestation o f ; Second trimester ; Herpes zoster without complication Start: 12-05-2024 End: 12-05-2024 ambulatory GRAHAM DANTE Not Available Start: 12-05-2024 End: 12-05-2024 Bamboo flowsheet Graham Dante DO Work Phone: [facility] Start: 12-05-2024 End: 12-05-2024 Bamboo flowsheet Graham Dante DO Work Phone: [facility] Start: 12-02-2024 End: 12-02-2024 Emergency department patient visit Nic Estevez MD Work Phone: [facility] Comment on above: Abdominal cramping, bilateral lower quadrant (Primary Dx) Start: 11-25-2024 End: 11-25-2024 ambulatory JANNETH SMITH Facility:[facility] Start: 11-25-2024 End: 11-25-2024 Patient encounter procedure JANNETH SMITH [facility] Start: 11-03-2024 End: 11-03-2024 Office outpatient visit 5 minutes [facility] Dante Nurse [facility] Comment on above: GA: 9w3d Start: 11-03-2024 End: 11-03-2024 ambulatory GRAHAM DANTE Not Available Start: 10-27-2024 End: 10-27-2024 ambulatory JANNETH Mary Lou SMITH Facility:[facility] Start: 10-27-2024 End: 10-27-2024 Patient encounter procedure JANNETH SMITH [facility] Start: 09-28-2024 End: 09-28-2024 Clinisync Result Encounter [...] management Start: 08-29-2024 End: 08-29-2024 ambulatory KELLE MOSLEY Not Available Start: 07-26-2024 End: 07-26-2024 Bamboo flowsheet Kelle BAE Work Phone: [facility] Start: 07-26-2024 End: 07-26-2024 Bamboo flowsheet Kelle BAE Work Phone: [facility] Start: 07-26-2024 End: 07-26-2024 Office outpatient visit 5 minutes Kelle BAE Work Phone: [facility] Comment on above: Encounter for weight management Start: 07-26-2024 End: 07-26-2024 ambulatory KELLE MOSLEY Not Available Start: 06-27-2024 End: 06-27-2024 ambulatory GRAHAM DANTE Not Available Start: 05-30-2024 End: 05-30-2024 ambulatory GRAHAM DANTE Not Available Start: 2024 End: 2024 ambulatory [facility] Start: 2024 End: 2024 Patient encounter procedure JANNETH SMITH [facility] Start: 04-27-2024 End: 04-27-2024 ambulatory MD Melodie Ashton Work Phone: [facility] Work Phone: Start: 04-27-2024 End: 04-27-2024 Departed Referred MD Melodie Ashton Work Phone: [facility] Path Spec [facility] Start: 04-27-2024 End: 04-27-2024 ambulatory Yonis R NILL Facility:[id number] Start: 03-08-2024 End: 03-08-2024 ambulatory Yonis R NILL Facility: [place] Start: 03-08-2024 End: 03-08-2024 Patient encounter procedure Yonis R NILL General Surgery [facility] Start: 02-09-2024 End: 02-09-2024 ambulatory Dieter REMY Facility:[facility] Start: 02-09-2024 End: 02-09-2024 Patient encounter procedure Dieter REMY [facility] Start: 01-19-2024 End: 01-19-2024 ambulatory JANNETH SMITH Facility:[facility] Start: 01-19-2024 End: 01-19-2024 Lab Drop off JANNETH E EMILIANA [facility] Start: 01-19-2024 End: 01-19-2024 ambulatory JANNETH SMITH Facility:[facility] Start: 01-19-2024 End: 01-19-2024 Patient encounter procedure JANNETH SMITH [facility] Start: 12-31-2023 ambulatory Yonis MIRANDA Facility:[facility] Start: 12-17-2023 End: 12-17-2023 ambulatory Taniya Mary Grace Other [facility] Other Start: 12-17-2023 Office outpatient vi sit 15 minutes Taniya Mary Grace [facility] Start: 12-07-2023 End: 12-07-2023 ambulatory Taniya Mary Grace Other [facility] Other Start: 12-07-2023 Telephone encounter Taniya Mary Grace [facility] Start: 12-02-2023 End: 12-02-2023 ambulatory Taniya Mary Grace Other [facility] Other Start: 12-02-2023 Office outpatient ne w 30 minutes Taniya Mary Grace [facility] Start: 04-17-2023 End: 04-17-2023 ambulatory SALMA DIAB . Facility:[facility] Start: 04-06-2023 End: 04-07-[address] MELODIE ASHTON . Facility:[facility] Start: 04-04-2023 Encounter for genera l adult medical examination without abnormal findings DR MELODIE ASHTON . [facility] Start: 04-03-2023 End: 04-04-[address] MELODIE ASHTON . Facility:[facility] Start: 04-01-2023 End: 04-02-[address] MELODIE ASHTON . Facility:[facility] Start: 04-01-2023 End: 04-02-2023 Encounter for general adult medical examination without abnormal findings DR MELODIE ASHTON . Facility:[facility] Start: 02-13-2023 End: 02-14-[address] MELODIE ASHTON . Facility:[facility] Start: 02-04-2023 End: 02-04-2023 ambulatory ELLIS PARIS Facility:[facility] Start: 10-20-2022 End: 10-20-2022 ambulatory DANIEL BELIA Facility:[facility] Start: 08-05-2022 End: 08-05-2022 ambulatory JETHRO GRIFFITH Facility:[facility] Start: 07-18-2022 End: 07-18-[address] MELODIE ASHTON . Facility:[facility] Start: 07-10-2022 End: 07-10-[address] MELODIE ASHTON . Facility:[facility] Start: 06-03-2022 End: 06-24-[address] MELODIE ASHTON . Facility:[facility] Start: 05-13-2022 End: 05-14-[address] MELODIE ASHTON . Facility:[facility] Start: 03-18-2022 End: 03-18-2022 ambulatory UNKNOWN PROVIDER Facility:[facility] Start: 11-19-2021 End: 11-19-2021 ambulatory Nandini Pantoja Other [facility] Other Start: 11-19-2021 Office outpatient ne w 30 minutes Nadnini Pantoja [facility] Procedures Date Procedure Procedure Detail Performing Clinician Start: 12-27-2024 Urnls dip stick/tabl et rgnt non-auto w/o micrscp Kelle ABE Work Phone: Start: 12-23-2024 BOX TEST Graham Fazi o DO Work Phone: Start: 12-05-2024 Urnls dip stick/tabl et rgnt [...] 12-02-2024 Basic metabolic pane l calcium total iNc Estevez MD Work Phone: Start: 12-02-2024 Hepatic [...] Screening for malign ant neoplasm of cervix [facility] Start: 01-23-2025 End: 01-23-2025 Professional / ancillary services management 01/23/2025 11:00 AM EST Ancillary Procedure [facility] [address] [id number] [facility] Start: 01-04-2025 End: 01-04-2025 Patient encounter procedure 01/04/2025 3:30 PM EST Routine [facility] [address] [phone] Kelle Mosley PA [address] [place] [address] [facility] Start: 12-27-2024 End: 01-24-2025 Alpha fetoprotein, maternal Alpha fetoprotein, maternal Lab Routine 17 weeks gestation of Second trimester Expected: 12/27/2024 (Approximate), Expires: 01/24/2025 [facility] Work Phone: Comment on above: Expected: 12/27/2024 (Approximate), Expires: 01/24/2025 Start: 12-27-2024 End: 12-27-2025 US for US OB 14+ weeks anatomy scan Imaging Routine Screening, , for anatomic survey Expected: 12/27/2024, Expires: 12/27/2025 [facility] Comment on above: Expected: 12/27/2024 , Expires: 12/27/2025 Start: 12-27-2024 End: 12-27-2024 Patient encounter procedure 12/27/2024 9:30 AM EST Routine [facility] [address] [address] Kelel Mosley PA [address] [place] [address] Arrived [facility] Comment on above: Arrived Start: 12-05-2024 End: 12-05-2024 Patient encounter procedure [facility] Comment on above: Arrived Start: 11-28-2024 End: 11-28-2024 Patient encounter procedure 11/28/2024 9:30 AM EST Office Visit [facility] [address] [phone] Kelle Mosley, PA [address] [place] [address] [facility] Start: 11-03-2024 End: 11-03-2025 ABO/Rh ABO/Rh Lab Routine Missed menses , unspecified gestational age Expected: 11/03/2024 (Approximate), Expires: 11/03/2025 [facility] Comment on above: Expected: 11/03/2024 (Approximate), Expires: 11/03/2025 Start: 11-03-2024 End: 11-03-2025 Blood type and Indirect antibody screen panel - Blood Type and screen Lab Routine Missed menses , unspecified gestational age Expected: 11/03/2024 (Approximate), Expires: 11/03/2025 [facility] Work Phone: Comment on above: Expected: 11/03/2024 (Approximate), Expires: 11/03/2025 Start: 11-03-2024 End: 11-03-2025 Drugs of abuse panel - Urine by Screen method Rapid drug screen, urine Lab Routine , unspecified gestational age Encounter for supervision of normal first in first trimester Expected: 11/03/2024 (Approximate), Expires: 11/03/2025 [facility] Comment on above: Expected: 11/03/2024 (Approximate), Expires: 11/03/2025 Start: 11-03-2024 End: 11-03-2024 ambulatory 11/03/2024 1:00 PM EST Initial [facility] [address] [address] [facility] Start: 11-03-2024 End: 11-03-2024 Professional / ancillary services management 11/03/2024 12:30 PM EST Ancillary Procedure [facility] [address] [place] [phone] [facility] Start: 08-29-2024 End: 08-29-2024 Patient encounter procedure 08/29/2024 10:50 AM EDT Office Visit [facility] [address] [place] [phone] Kelle Mosley, PA [address] [place] [address] [place] [address] Arrived [facility] Comment on above: Arrived Start: 07-26-2024 End: 07-26-2024 Patient encounter procedure 07/26/2024 8:30 AM EDT Office Visit [facility] [address] [place] [address] Kelle Mosley, PA [address] [place] [address] [place] [address] Arrived [facility] Comment on above: Arrived Start: 07-24-2024 COVID-19 Vaccine ( season) COVID-19 Vaccine ( season) [facility] Start: 07-24-2024 Influenza vaccination Influenza Vacc ine (#1) [facility] Start: 06-23-2024 Influenza vaccination Flu vaccine (# 1) [facility] Start: 2023 Screening for malign ant neoplasm of cervix [facility] Start: 12-20-2021 Screening for malign ant neoplasm of cervix Pap smear [facility] Start: 2014 Screening for malign ant neoplasm of cervix Pap Smear [facility] Start: 2012 DTaP/Tdap/Td vaccine (1 - Tdap) DTaP/Tdap/Td vaccine (1 - Tdap) [facility] Start: 2012 Hepatitis B vaccine (1 of 3 - 19+ 3-dose series) Hepatitis B vaccine (1 of 3 - 19+ 3-dose series) [facility] Start: 2011 [facility] Start: 2011 Tetanus + diphtheria + acellular pertussis vaccine (product) [facility] Start: 2008 HIV screening HIV Test [facility] Start: 2006 Varicella vaccine (1 of 2 - 13+ 2-dose series) Varicella vaccine (1 of 2 - 13+ 2-dose series) [facility] Start: 2005 Depression Screen Depression Screen [facility] Start: 1998 COVID-19 Vaccine (1) COVID-19 Vaccin e (1) [facility] Bacteria identified in Urine by Culture Urine culture Microbiology Routine Missed menses Ordered: 11/03/2024 [facility] Comment on above: Ordered: 11/03/2024 CBC W Auto Different ial panel - Blood CBC and differential Lab Routine Missed menses , unspecified gestational age Ordered: 11/03/2024 [facility] Comment on above: Ordered: 11/03/2024 CHLAMYDIA TRACHOMATI S (GENITO/STI) CHLAMYDIA TRACHOMATIS (GENITO/STI) Lab Routine Exposure to STD Ordered: 12/27/2024 [facility] Comment on above: Ordered: 12/27/2024 Cytology Cervical or vaginal smear or scraping study Pap Smear Pathology and Cytology Routine Well woman exam with routine gynecological exam Ordered: 12/27/2024 [facility] Comment on above: Ordered: 12/27/2024 EKG 12 Lead EKG 12 Lead ECG STAT 12/02/2024 8:08 PM EST [facility] Hemoglobin A1c/Hemoglobin.total in Blood Hemoglobin A1c Lab Routine Missed menses , unspecified gestational age Ordered: 11/03/2024 [facility] Comment on above: Ordered: 11/03/2024 Hepatitis B virus surface Ag [Presence] in Serum or Plasma by Immunoassay Hepatitis B surface antigen Lab Routine Missed menses , unspecified gestational age Ordered: 11/03/2024 [facility] Comment on above: Ordered: 11/03/2024 Hepatitis C virus Ab [Presence] in Serum or Plasma by Immunoassay Hepatitis C antibody Lab Routine Missed menses , unspecified gestational age Ordered: 11/03/2024 [facility] Comment on above: Ordered: 11/03/2024 HIV-1/HIV-2 antigen/antibody combination immunoassay HIV-1 and HIV-2 antibodies Lab Routine Missed menses , unspecified gestational age Ordered: 11/03/2024 [facility] Comment on above: Ordered: 11/03/2024 Human papilloma viru s DNA [Presence] in Unspecified specimen by Probe with amplification HPV DNA probe, amplified Microbiology Routine Well woman exam with routine gynecological exam Ordered: 12/27/2024 [facility] Comment on above: Ordered: 12/27/2024 Neisseria gonorrhoea e DNA [Presence] in Unspecified specimen by DAYDAY with probe detection Neisseria gonorrhea DNA probe, direct Lab Routine Exposure to STD Ordered: 12/27/2024 [facility] Comment on above: Ordered: 12/27/2024 Reagin Ab [Presence] in Serum by RPR RPR Lab Routine Missed menses , unspecified gestational age Ordered: 11/03/2024 [facility] Comment on above: Ordered: 11/03/2024 Rubella antibody, IgG Rubella an tibody, IgG Lab Routine Missed menses , unspecified gestational age Ordered: 11/03/2024 [facility] Comment on above: Ordered: 11/03/2024 SURESWAB(R) ADVANCED VAGINITIS PLUS, TMA SURESWAB(R) ADVANCED VAGINITIS PLUS, TMA Pathology and Cytology Routine Vaginal discharge Ordered: 12/27/2024 [facility] Comment on above: Ordered: 12/27/2024 Immunizations Immunization Date Immunization Notes Care Provider Fa cility 10-28-2022 influenza virus vaccine, unspecified formulation JANNETH SMITH [facility] 04-15-2021 SARS-CoV-2 (COVID-19 ) mRNA-1273 vaccine JANNETH SMITH [facility] [place] 03-18-2021 SARS-CoV-2 (COVID-19 ) mRNA-1273 vaccine JANNETH SMITH [facility] [place] 03-21-2014 influenza virus vaccine, unspecified formulation Estella Guerrero MD Work Phone: [facility] Payers Date Payer Category Payer Medicaid [employer] [place] [employer] [id number] 2017-Present [address] [place] [phone] [id number] 2017 Medicaid (Managed Care) [employer] [id number] [facility] [employer] [id number] 2017-Present [id number] 1993 Unknown [id number] 2.16.840.1.450369.3.579.2. 732 1993 Unknown [id number] 2.16.840.1.174807.3.579.2. 593 1993 Unknown [id number] 2.16.840.1.769562.3.579.2. 593 1993 Unknown [id number] 2.16.840.1.041085.3.579.2. 593 1993 Unknown [id number] 2.16.840.1.103114.3.579.2. 593 1993 Unknown [id number] 2.16.840.1.857101.3.579.2. 593 1993 Unknown [id number] 2.16.840.1.215112.3.579.2. 593 1993 Unknown [id number] 2.16.840.1.331420.3.579.2. 593 1993 Unknown [id number] 2.16.840.1.476512.3.579.2. 593 1993 Unknown [id number] 2.16.840.1.766976.3.579.2. 593 1993 Unknown [id number] 2.16.840.1.721123.3.579.2. 593 1993 Unknown [id number] 2.16.840.1.102233.3.579.2. 593 1993 Unknown [id number] 2.16.840.1.355640.3.579.2. 593 1993 Unknown [id number] 2.16.840.1.759845.3.579.2. 1259 1993 Unknown [id number] 2.16.840.1.664453.3.579.2. 1259 1993 Unknown [id number] 2.16.840.1.052692.3.579.2. 1259 1993 Unknown [id number] 2.16.840.1.706846.3.579.2. 173 1993 Unknown [id number] 2.16.840.1.167143.3.579.2. 1259 1993 Unknown [id number] 2.16.840.1.483518.3.579.2. 1259 1993 Unknown [id number] 2.16.840.1.803804.3.579.2. 1259 1993 Unknown [id number] 2.16.840.1.646789.3.579.2. 727 1993 Unknown [id number] 2.16.840.1.036957.3.579.2. 727 1993 Unknown [id number] 2.16.840.1.392000.3.579.2. 727 1993 Unknown [id number] 2.16.840.1.105675.3.579.2. 727 1993 Unknown [id number] 2.16.840.1.751591.3.579.2. 727 1993 Unknown [id number] 2.16.840.1.479793.3.579.2. 727 1993 Unknown [id number] 2.16.840.1.132686.3.579.2. 727 1993 Unknown [id number] 2.16.840.1.449709.3.579.2. 727 1993 Unknown [id number] 2.16.840.1.842034.3.579.2. 727 1959 Medicaid [id number] Social History Date Type Detail Facility Tobacco smoking status [facility] Tobacco smoking consumption unknown [facility] Other Start: 1993 [facility] Start: 02-15-2020 End: 05-23-2024 Sex Assigned At [facility] Start: 05-03-2023 End: 01-19-2024 Tobacco smoking status Never smoked tobacco (finding) [facility] Tobacco smoking status Never [facility] Start: 1995 Sex Assigned At Female F [facility] Start: 07-26-2024 End: 12-27-2024 Alcoholic beverage intake Current drinker of alcohol (finding) [facility] Start: 02-15-2020 End: 05-23-2024 History of Social function [facility] Start: 05-03-2023 Alcohol Comment 1-2 drinks les s than monthly in the past year, Caffeine intake: 2-3 cups per day [facility] Start: 09-12-2024 [facility] Start: 12-20-2018 Tobacco use and exposure [facility]ok[facility] Start: 02-14-2019 Alcoholic beverage intake Current non-drinker of alcohol (finding) [facility] Functional Status Date Assessment Result Facility 2024 Functional Status N/A [facility] 03-08-2024 Functional Status N/A [facility] 01-19-2024 Functional Status N/A [facility] Clinical Notes 03-18-2022 to 12-27-2024 KATHIA Ledezma - 12/27/2024 9:30 AM Noah Howell DO - 12/05/2024 3:40 PM America Colon LPN - 11/03/2024 1:00 PM KATHIA Oconnell - 08/29/2024 10:50 AM EDT Note Date & Type Note Facility 12-27-2024 History of Present illness Narrative Reason for Appointment: Patient ID: Rosalie Rodríguez is a 29 y.o. female who presents for Routine Visit Patient presents today for annual and return OB MEDICATIONS Current Outpatient Medications Medication Instructions sertraline [...] History: Diagnosis Date Acne Cardiac murmur Depression ([facility]) Encounter for IUD insertion 01/02/2021 Gastritis IBS (irritable bowel syndrome) Plantar fasciitis, bilateral HISTORY PAST MEDICAL HISTORY SOCIAL HISTORY Past Medical History: Diagnosis Date Acne Cardiac murmur Depression ([facility]) Encounter for IUD insertion 01/02/2021 Gastritis IBS [...] Constitutional: Appearance: Normal appearance. She is well-developed. Genitourinary: Vulva normal. Right Adnexa: not tender and no mass present. Left Adnexa: not tender and no mass present. No cervical discharge. Breasts: Breasts are soft. Right: Normal. Left: Normal. HENT: Head: Normocephalic. Nose: Nose normal. Mouth/Throat: Mouth: Mucous membranes are moist. Cardiovascular: Rate and Rhythm: Normal rate and regular rhythm. Pulmonary: Effort: Pulmonary effort is normal. Breath sounds: Normal breath sounds. Abdominal: General: Bowel sounds are normal. There is no distension. Palpations: Abdomen is soft. Tenderness: There is no abdominal tenderness. There is no guarding or rebound. Musculoskeletal: General: No swelling. Normal range of motion. Cervical back: Normal range of motion. Right lower leg: No edema. Left lower leg: No edema. Neurological: General: No focal deficit present. Mental Status: She is alert and oriented to person, place, and time. Skin: General: Skin is warm and dry. Psychiatric: Mood and Affect: Mood normal. Behavior: Behavior normal. Vitals and nursing note reviewed. Exam conducted with a entry operator present. Vitals: Estimated body mass index is 45.69 kg/m as calculated from the following: Height as of 07/26/24: 5' 10 . Weight as of this encounter: 318 lb 6.4 oz. BP: 130/78 Patient's last menstrual period was 08/29/2024. ASSESSMENT & PLAN ICD-10-CM 1. 17 weeks gestation of Z3A.17 POCT urinalysis dipstick manually resulted Alpha fetoprotein, maternal Alpha fetoprotein, maternal 2. Second trimester Z34.92 POCT urinalysis dipstick manually resulted Alpha fetoprotein, maternal Alpha fetoprotein, maternal 3. Screening, , for anatomic survey Z36.89 US OB 14+ weeks anatomy scan 4. Exposure to STD Z20.2 CHLAMYDIA TRACHOMATIS (GENITO/STI) Neisseria gonorrhea DNA probe, direct 5. Vaginal discharge N89.8 SURESWAB(R) ADVANCED VAGINITIS PLUS, TMA 6. Well woman exam with routine gynecological exam Z01.419 Pap Smear HPV DNA probe, amplified Return OB/Annual Exam: Patient presents today for a annual exam/routine obstetrics appointment. Patient is currently 17w1d . Patient states she is doing well but has complaints of nausea in the morning. Pap and cultures was obtained without difficulty and patient was given orders for anatomy scan and msAFP to be obtained. Patient presents today for symptoms of sinus infection after being treated with a 10 day course of Keflex antibiotic. Patient advised she does have drainage making her throat sore. Patient labs reviewed with patient we will send in Z-james and steroid to see if this will jennifer things up. Patient advised congestion can cause sore throat. Patient has tried Vicks on her chest. Patient has not had any recent immunizations. Orders Placed This Encounter Procedures HPV DNA probe, amplified US OB 14+ weeks anatomy scan Alpha fetoprotein, maternal CHLAMYDIA TRACHOMATIS (GENITO/STI) Neisseria gonorrhea DNA probe, direct POCT urinalysis dipstick manually resulted Follow Up: Patient is to schedule annual exam for next year and return to office in 4 weeks for OB appointment. Documented by Yajaira Alba LPN on behalf of: KATHIA Ledezma documented in this encounter [facility] 12-05-2024 History of Present illness Narrative Reason [...] nursing note reviewed. Exam conducted with a entry operator present. Vitals: Estimated body mass index is [...] Graham Howell DO documented in this encounter [facility] 11-03-2024 History of Present illness Narrative Reason [...] 05/27/2023 Irritable bowel syndrome 05/27/2023 Mood disorder ([facility]) 05/27/2023 Right upper quadrant abdominal pain 05/27/2023 Scoliosis 05/27/2023 Vaginal delivery 09/06/2014 Encounter for weight management 06/27/2024 Resolved Ambulatory Problems Diagnosis Date Noted No Resolved Ambulatory Problems Past Medical History: Diagnosis Date Acne Cardiac murmur Depression ([facility]) Encounter for IUD insertion 01/02/2021 Gastritis IBS [...] or undercooked meat, and stay away from [facility]. Patient has also been advised to [...] Aleida Colon LPN documented in this encounter [facility] 08-29-2024 History of Present illness Narrative Reason [...] History: Diagnosis Date Acne Cardiac murmur Depression ([facility]) Encounter for IUD insertion 01/02/2021 Gastritis IBS [...] nursing note reviewed. Exam conducted with a entry operator present. Vitals: Estimated body mass index is [...] of: KATHIA Ledezma documented in this encounter [facility] 07-26-2024 History of Present illness Narrative Reason [...] History: Diagnosis Date Acne Cardiac murmur Depression ([facility]) Encounter for IUD insertion 01/02/2021 Gastritis IBS [...] of KATHIA Ledezma documented in this encounter [facility] 2024 Hospital Discharge instructions Patient Education 2024 [...] medicine. Follow these instructions at home: Take wyds-huj-cxcatue and prescription medicines as told by your [...] provider. Document Revised: 12/24/2020 Document Reviewed: 08/28/2020 [employer] Patient Education 2022 [employer]. Follow Up Care 01/19/2024 10:50:20 With:JANNETH SMITH PA-C, URL Address: [address] [place] [address] [phone] When: Unknown [facility] 03-10-2024 Note Chief Complaint consultation for [...] - Denies A (more content not included)... [facility] Comment on above: Result Comment: Elec [...] With:Dieter REMY Address: [facility] [address], [place] [address]- Business (1) When:06/10/2024 08:33:15 Comments:With Deepthi Smith [facility] 02-09-2024 Note [id number] [facility] 02-09-2024 Note Custom Cystoscopy ? Voiding [...] you have a fever over 100 degrees. [facility] 01-19-2024 Hospital Discharge instructions Patient Education [...] including vitamins, herbs, eye drops, creams, and glxa-wku-pcgolfq medicines. Any problems you or family members [...] health care provider tells you to. ?Taking ping-sie-tzgwrhb medicines, vitamins, herbs, and supplements. General instructions [...] provider. Document Revised: 02/19/2023 Document Reviewed: 02/19/2023 [employer] Patient Education 2022 [employer]. 01/19/2024 10:32:14 Urinary Tract Infection, Adult Urinary [...] Treatment for this condition includes: Antibiotic medicine. Oepj-upr-gupswcc medicines to treat discomfort. Drinking enough water [...] Follow these instructions at home: Medicines Take fcci-oky-ivuhowr and prescription medicines only as told by [...] provider. Document Revised: 06/21/2021 Document Reviewed: 06/21/2021 [employer] Patient Education 2022 [employer]. Follow Up Care 01/08/2024 10:24:51 With:EMILIANA STEPHENS, JANNETH Barrteo, URL Address: [address] [facility] [place] [address] When: Unknown [facility] 01-19-2024 Note Chief Complaint Referral *Frequent UTI HPI Staff Evaluation requested by Dr Melodie Ashton due to UTI. 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 [facility] Comment on above: Result Comment: Elec tronically Signed By: JANNETH SMITH PA-C\.br\Date and Time Signed: 01/19/24 10:56 EST\.br\Electronically Co-Signed By: Jania Lyn\Date and Time Co-Signed: 01/19/24 10:36 EST 12-17-2023 Evaluation note Encounter Date Diagnosis Assessment Notes 25 Moisés, 2024 Proteinuria (ICD-10 - R80.9) Her urine protein creatinine ratio is normal. She had 24-hour urine collection for protein which was within the normal limit for that lab. She had unremarkable workup for paraproteinemia hepatitis and ANCA. She likely has intermittent proteinuria either due to the UTIs or prolonged standing. Have advised her to avoid NSAIDs or any other peul-kya-bxbpknp medication or high-protein supplements Nov, Renal lesion [...] of any breach, fraud, or malicious third alliance party actors and no personal patient information was compromised. [facility] Other 01-10-2024 Evaluation note* Encounter Date Diagnosis [...] her to avoid NSAIDs or any other puao-kmf-eyamisl medication or high-protein supplements Nov, Renal lesion (ICD-10 - N28.9) She had a renal lesion of indeterminate nature on the renal ultrasound. She is ordered to have a CAT scan with contrast by the PCP. Will follow the report once done. Nov, IBS (irritable bowel syndrome) (ICD-10 - K58.9) Continue to follow with PCP for IBS management. [facility] Other 06-21-2022 NotePROCEDURE: XR SHOULDER RT 2V or > COMPARISON: None. HISTORY: Pain of right shoulder joint FINDINGS: BONES:No fracture, acute abnormality, or significant arthropathy. SOFT TISSUES:Negative. No visible soft tissue swelling. EFFUSION:None visible. OTHER: Negative. IMPRESSION: Normal examination. Electronically authenticated by: NANDINI MAYER Date: 2022-05-13 08:41[facility]04-26-2022 History of Present illness Narrative* Francisco Ayers [...] disc edema - F/u with PCP (Melodie Ashton [facility]) regarding headaches-- will fax information to [phone] - Offered referral to neurology, patient prefers [...] papilledema. Francisco Ayers MD documented in this [id number] History of Present illness Narrative* Francisco Ayers [...] Hair) regarding headaches-- will fax information to [phone] - Offered referral to neurology, patient prefers [...] Appointments Appointment Date:02/02/2024 11:30:00 AM Scheduled Provider: Location:[facility] Appointment Type:Urology CALL PAT FT Appointment Date:02/09/2024 08:15:00 AM Scheduled Provider: Location:[facility] Appointment Type:Urology FT Appointment Date:2024 08:20:00 AM Scheduled Provider:JANNETH SMITH PA-C Location:[facility] Appointment Type:URO Office Visit [facility] evaluation + Plan note Future Appointments Appointment Date:02/02/2024 11:30:00 AM Scheduled Provider: Location:[facility] Appointment Type:Urology CALL PAT FT Appointment Date:02/09/2024 08:15:00 AM Scheduled Provider: Location:[facility] Appointment Type:Urology FT Appointment Date:2024 08:20:00 AM Scheduled Provider:JANNETH SMITH PA-C Location:[facility] Appointment Type:URO Office Visit Diagnostic Tests Pending * [facility]rine [facility] Future Appointments Appointment Date:2024 08:20:00 AM Scheduled Provider:JANNETH SMITH PA-C Location:[facility]ment [facility] Future Appointments Appointment Date:11/25/2024 08:20:00 AM Scheduled Provider:JANNETH SMITH PA-C Location:[facility] Appointment Type:URO Office Visit [facility] evaluation note* Diagnosis Chronic nonintractable headache, unspecified headache type- [facility] Diagnosis Chronic nonintractable headache, unspecified headache type- Primary [facility] noteNort [facility] Other Evaluation noteNo InformationNomercy hospital [facility] Other Evaluation noteNo assessment information available [facility] Work Phone: [employer] note* Diagnosis Encounter for weight management documented in this encounter [facility]* Diagnosis Missed menses , unspecified gestational age Encounter for supervision of normal first in first trimester documented in this encounter [facility] HealthcareEvaluation note* Diagnosis Encounter for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
[2025-01-01 10:06] LABS: Age Gdln ACOG Testing Note (.); HPV Aptima Negative (Negative); IGP, Aptima HPV, rfx 16/18,45 Note (.)
== END 2024-12-27 20:19 | disposition home or self-care (01) ==
LOC: LAB 20:18
PROVIDERS: PCP Family Medicine; Visit Provider Physician Assistant
DX: Z01.419 Encounter for gynecological examination (general) (routine) without abnormal findings (principal)
CPT/HCPCS: 87624; 88175

== ENCOUNTER 2025-02-02 10:20 | Emergency (ER) | payer OTHER, SELFPAY ==
[2025-02-02 10:25] VITALS: BP 155/90; PULSE 90; TEMP 37; O2SAT 96; BMI 44.6
--- OUTSIDE RECORDS SUMMARY | 2025-02-02 10:30 | XMS_ITS | CCD ---
Author Organization [facility] Care Team Providers Care Briar Cutter Name Role Phone Unavailable Primary Care Provider [...] Unavailable HOY ., DR SEWELL Admkaty Unavailable ZIDIPIKA, DR ADRIANA Mckenzie Consulting Unavailable DANIEL CELAYA [...] Unavailable HOY ., DR SEWELL Admkaty Unavailable DONNELLY, DR NANDINI Stafford Consulting Unavailable HOY ., [...] Care Unavailable Mary Grace Taniya Unavailable Melodie Ashton Primary Care Physician MD Melodie Ashton Primary Care Provider [phone] MD Yonis Miranda Attending Provider Melodie Ashton Primary Care Unavailable Nill, Yonis Mckenzie Attending Unavailable Nill, Yonis R Admitting Unavailable GRAHAM HOWELL Attending Unavailable GRAHAM HOWELL Attending Unavailable MELANY, KELLE Attending Unavailable Melodie Ashton MD Primary Care Provider [phone] Melodie Ashton MD Primary Care Provider MELODIE ASHTON Primary Care Unavailable NIC ESTEVEZ Attending Unavailable NILL, Yonis R Attending Unavailable LUIS, JANNETH E Attending Unavailable LUIS, JANNETH E Attending Unavailable LUIS, JANNETH E Attending Unavailable HoyMelodie Referring Unavailable LUIS, JANNETH E Attending Unavailable REMY, Dieter R Admitting Unavailable REMY, Dieter R Attending Unavailable REMY, Dieter R Referring Unavailable LUIS, JANNETH E Admitting Unavailable LUIS, JANNETH E Attending Unavailable NILL, Yonis R Attending Unavailable NILL, Yonis R Attending Unavailable SawyMelodie Referring Unavailable MELANY, KELLE Attending Unavailable MELANY, KELLE Attending Unavailable MELANY, KELLE Referring Unavailable MELANY, KELLE Attending Unavailable GRAHAM HOWELL Attending Unavailable Allergies Allergy Classification Reported Allergen(s) Allergy Type Date of Onset Reaction(s) Facility (1 source) [facility]; Translations: [[facility]Other] Propensity to adverse reactions (disorder) 0 [facility] Repository (3 sources) Kerlix Super Sponge/Saline Med Drug allergy hives [employer] Other (12 sources) Wound Dressings Drug Allergy [facility] Healthcare (1 source) No Known Medication Allergies; Translations: [No Known Medication Allergies] Propensity to adverse reactions (disorder) [facility] Repository Medications Current Medications Medication Drug Class(es) Dates Sig (Normalized) Sig (Original) amoxicillin 500 mg oral capsule (2 sources) Penicillin-class Antibacterial take 1 capsule by mouth every twelve hours Amoxicillin 500 MG 1 capsule Orally Twice a day for 30 days Active azithromycin 250 mg oral tablet (6 sources) Macrolide Antimicrobial Start: 12-27-2024 azithromycin (Zithromax [...] / pseudoephedrine hydrochloride 6 mg/ml oral solution (6 sources) alpha-Adrenergic Agonist, Opioid Agonist Start: 12-27-2024 End: 01-06-2025 take 5 mL by mouth twice daily as needed pseudoephedrine-c odeine-guaiFENesi n (Mytussin DAC) 30-10-100 MG/5ML solution Indications: Sinus [...] by mouth every morning (before breakfast) Active magnesium oxide 400 mg oral tablet (2 sources) Start : 01-04 End: 02-03 take 1 tablet by mouth once daily magnesium oxide (Mag-Ox) 400 MG tablet Indications: Headache in , antepartum Take 1 tablet (400 mg) by mouth Daily 30 tablet 6 01/04/2025 02/03/2025 Active methylphenidate hydrochloride 20 mg oral tablet (2 sources) Central Nervous System Stimulant Start : 06-14 End: 07-26 methylphenidate (Ritalin) 20 MG tablet 1 (one) time each day at the same time 06/14/2024 07/26/2024 Discontinued methylPREDNISolone (6 sources) Corticosteroid Start : 12-27 methylPREDNISolone (Medrol Dospak) 4 MG tablets Indications: Sinus congestion Day 1: 6 tablets Day 2: 5 tablets Day 3: 4 tablets Day 4: 3 tablets Day 5: 2 tablets Day 6: 1 tablet 21 tablet 12/27/2024 Active metroNIDAZOLE 500 mg oral tablet (3 sources) Nitroimidazole Antimicrobial Start : 12-30 End: 01-06 take 1 tablet by mouth in the morning metroNIDAZOLE (Flagyl) 500 MG tablet Indications: BV (bacterial vaginosis) Take 1 tablet (500 mg) by mouth in the morning and 1 tablet (500 mg) before bedtime. Do all this for 7 days. Do not drink alcohol while taking this medication. 14 tablet 12/30/2024 01/06/2025 Active ondansetron 4 mg disintegrating oral tablet [...] Daily UTI prevention, 30 tab(s), Refill(s) 3, [facility]/pharmacy #[id number], 180, cm, 05/10/24 9:08:00 EDT, Height/Length Dosing, 150, kg, 05/10/24 9:08:00 EDT, Weight Dosing Start Date: 07/26/24 Status: Ordered Start: 01-19-2024 Bactrim 400 mg -80 mg Tab 1 tab(s), Oral, Daily UTI prevention, 30 tab(s), Refill(s) 3, [facility]/pharmacy #[id number], 180, cm, 01/19/24 9:37:00 [...] 12/05/2024 Discontinued valACYclovir 500 mg oral tablet (10 sources) Herpesvirus Nucleoside Analog DNA Polymerase Inhibitor, [...] completed., # 2 cap(s), Refills(s) 0, Pharmacy: [facility]/pharmacy #[id number], 180, cm, 01/19/24 9:37:00 EST, Height/Length Dosing, 145.5, kg, 01/19/24 9:37:00 EST, Weight Dosing Start Date: 01/19/24 Status: Ordered fexofenadine hydrochloride 30 mg disintegrating oral tablet (10 sources) Histamine-1 Receptor Antagonist End: 12-05-2024 take 1 tablet by mouth once daily fexofenadine ODT (Susan ODT) 30 MG disintegrating tablet Take 30 mg by mouth Daily 12/05/2024 Discontinued levonorgestrel 0.373371 mg/hr intrauterine system (8 sources) Progestin, Progestin-containin [...] sources) Proteinuria, unspecified Episodic Headache; including migraine (4 sources) Headache; Translations: [Chronic nonintractable headache, unspecified [...] 09-20-2021 Chronic Other aftercare (1 source) Other residential (current) drug therapy; Translations: [OTH NURSING HOME [...] uncomplicated delivery] Onset: 4 05-27-2023 Episodic Other upper respiratory disease (2 sources) Congestion of nasal sinus; Translations: [Nasal congestion] 12-27-2024 Episodic Residual codes; unclassified (2 sources) Gestation period, 14 weeks; Translations: [14 weeks gestation of ] 12-05-2024 Episodic Residual codes; unclassified (2 sources) Gestation period, 17 weeks; Translations: [17 weeks gestation of ] 12-27-2024 Episodic Residual codes; unclassified (2 sources) Gestation period, 18 weeks; Translations: [18 weeks gestation of ] 01-04-2025 Episodic Unclassified (3 sources) CONTACT W/AND (SUSP) [...] pain] Onset: 05-27-2023 09-20-2021 Episodic Administrative/social admission (20 sources) Patient encounter status; Translations: [Persons encountering health services in other specified circumstances] Onset: 06-27-2024 06-27-2024 Episodic Biliary tract disease (20 sources) Chronic cholecystitis with calculus; Translations: [Calculus of gallbladder with chronic cholecystitis without obstruction] Onset: 05-27-2023 09-30-2021 Episodic Other and unspecified benign neoplasm (19 sources) Mature cystic teratoma of left ovary; Translations: [Benign neoplasm of left ovary] Onset: 04-10-2015 05-27-2023 Episodic Other connective tissue disease (4 sources) Impingement syndrome of right shoulder; Translations: [IMPINGEMENT SYNDROME RIGHT SHOULDER] Onset: 07-10-2022 Episodic Other gastrointestinal disorders (18 sources) Pharyngeal dysphagia; Translations: [Dysphagia, pharyngeal phase] [...] Onset: 05-27-2023 09-20-2021 Episodic Other skin disorders (20 sources) Acne [...] Test Name Value Interpretation Reference Range Facility US OB 14+ WEEKS ANATOMY SCAN on 01-23-2025 US OB 14+ WEEKS ANATOMY SCAN EXAM: US OB 14+ WEEKS ANATOMY SCAN HISTORY: anatomy. TECHNIQUE: Two-dimensional transabdominal grayscale ultrasound imaging of the pelvis was performed. Exam limited due to patient body habitus. FINDINGS: Gestation: Single Presentation: Cephalic Cardiac Activity: 136 beats per minute Placental Location: Anterior with no sonographic abnormalities identified. Distance from Placental Tip to Cervix: 7.8 cm Cervical Length: 4.6 cm Amniotic Fluid: Appears adequate MEASUREMENTS: BPD: 5.2 cm EGA: 21 weeks 5 days HC: 19.6 cm EGA: 21 weeks 5 days AC: 17.0 cm EGA: 22 weeks 0 days FL: 3.6 cm EGA: 21 weeks 3 days HC/AC Ratio: 1.15 The gestational age by today's ultrasound is 21 weeks 3 days (+/- 7 days gestation). Estimated Weight: 443 grams, +/- 66 grams ( 1 lb 0 oz). Weight Percentile for gestational age: 81 % ANATOMY C-Spine: Unremarkable T-Spine: Unremarkable L-Spine: Unremarkable Sacrum: Unremarkable Four Chamber Heart: Unremarkable LVOT: Unremarkable RVOT: Unremarkable Stomach: Unremarkable Kidneys: Unremarkable Bladder: Unremarkable Diaphragm: Unremarkable Cord insertion: Unremarkable Cord vessels: Three Lateral Ventricles: Unremarkable Cerebellum: Unremarkable Cisterna Magna: Unremarkable Posterior Fossa: Unremarkable Right Femur: Unremarkable Left Femur: Unremarkable Right Tib/Fib: Unremarkable Left Tib/Fib: Unremarkable Right Rad/Ulnar: Unremarkable Left Rad/Ulnar: Unremarkable Right Humerus: Unremarkable Left Humerus: Unremarkable Nose/Lips: Unremarkable Profile: Unremarkable Orbits: Unremarkable IMPRESSION: 1. Single, live intrauterine gestation 21 weeks, 0 days by LMP. Today's ultrasound measurements correlate with a gestational age of 21 weeks 3 days. Estimated weight is 443 grams, +/- 66 grams ( 1 lb 0 oz) which correlates to 81 %. ABEL is 06/02/2025. 2. Unremarkable ultrasound of the anatomy. Electronically Signed:Electronically signed by TATO AMAYA II, MD, PHD at 24-Jan-2025 09:25:38 AM [facility] Normal Not Available Comment on above: Order Comment: US OB ANATOMY SINGLE W US OB CERVICAL LENGTH Estimated Date of Delivery: 06/05/25 Gestational Age as of 12/27/2024: 17w1d Urinalysis macro (dipstick) panel (U)on 01-04-2025 Bilirubin, UA Positive Negative - 4(70) +++ mg/dL [facility] Comment on above: small Blood, UA Negative Negative - 50 Issac/mcL [facility] Clarity, UA Clear [facility] Color, UA Yellow [facility] Glucose, UA Negative Negative - 2000(110) ++++ mg/dL [facility] Interpretation and review of laboratory results Abnormal [facility] Ketones, UA Positive Negative - 160(16) ++++ mg/dL [facility] Comment on above: trace Leukocytes, UA Positive Negative - 500+++ Christo/mcL [facility] Comment on above: small Nitrite, UA Negative Negative - Positive [facility] pH, UA 5.5 5 - 9 [facility] Protein, UA Positive Negative - 1999(20) ++++ mg/dL [facility] Comment on above: 30mg/dL Spec Grav, UA 1.03 1 - 1.03 [facility] Urobilinogen, UA 0.2 0.2 - 12 mg/dL [facility] IGP,APTIMA HPV,AGE GDLNon AGE GDLN ACOG TESTING Note . [facility] Comment on above: TESTS RESULT FLAG UN ITS REF RANGE LAB Clinician Provided Cytology Information Source.............Cervix Other.............. No. of containers..01 ThinPrep Vial Age Algo ACOG Soraida... 30-65 01 FLAG LEGEND: L-Low Normal,H-High Normal,LL-Alert Low,HH-Alert High <-Panic Low,>-Panic High,A-Abnormal,AA-Critical Abnormal Performed at: 01 [facility] [place] [address] Haily Cook MD, HPV APTIMA Negative Negative [facility] Comment on above: This nucleic acid am plification test detects fourteen high- risk HPV types (16,18,31,33,35,39,45,51,52,56,58,59,66,68) without differentiation. Performed at: = - [address], [place] [id number] Lamp Shade Assembler: Haily Cook MD, Phone: [phone] Performed at: - [address] [id number] Lamp Shade Assembler: Haily Cook MD, Phone: [phone] IGP, APTIMA HPV, RFX 16/18,45 Note . [facility] Comment on above: TESTS RESULT FLAG UN ITS REF RANGE LAB DIAGNOSIS: 02 NEGATIVE FOR INTRAEPITHELIAL LESION OR MALIGNANCY. Specimen adequacy: 02 Satisfactory for evaluation. No endocervical component is identified. Performed by: Melissa Guerrero, Returns Clerk (ASCP) . 02 Note: Note 02 The Pap smear is a screening test designed to aid in the detection of premalignant and malignant conditions of the uterine cervix. It is not a diagnostic procedure and should not be used as the sole means of detecting cervical cancer. Both false-positive and false-negative reports do occur. Test Methodology: Note 02 This liquid based ThinPrep(R) pap test was screened with the use of an image guided system. HPV Genotype Reflex Note 02 Criteria not met, HPV Genotype not performed. FLAG LEGEND: L-Low Normal,H-High Normal,LL-Alert Low,HH-Alert High <-Panic Low,>-Panic High,A-Abnormal,AA-Critical Abnormal Performed at: [address] [facility] [address] [place] [address] Haily Cook MD, SPATULA-ALONE CERVIX [facility] Urinalysis macro (dipstick) panel (U)on 12-27-2024 Bilirubin, UA Negative Negative - 4(70) +++ mg/dL [facility] Blood, UA Negative Negative - 50 Issac/mcL [facility] Clarity, UA Clear [facility] Color, UA Yellow [facility] Glucose, UA Negative Negative - 1999(110) ++++ mg/dL [facility] Interpretation and review of laboratory results Abnormal [facility] Ketones, UA Negative Negative - 160(16) ++++ mg/dL [facility] Leukocytes, UA Positive Negative - 500+++ Christo/mcL [facility] Comment on above: small Nitrite, UA Negative Negative - Positive [facility] pH, UA 6 5 - 9 [facility] Protein, UA Trace Negative - 1999(20) ++++ mg/dL [facility] Spec Grav, UA 1.03 1 - 1.03 [facility] Urobilinogen, UA 0.2 0.2 - 12 mg/dL [facility] BOX TESTon 12-23-2024 BOX TEST SENT OUT [employer] [facility] BOX1 [facility] BOX2 12/23/24 [facility] [...] a no show a second time. Normal [facility] Urinalysis macro (dipstick) panel (U)on 12-05-2024 Bilirubin, UA Negative Negative - 4(70) +++ mg/dL [facility] Blood, UA Negative Negative - 50 Issac/mcL [facility] Clarity, UA Clear [facility] Color, UA Yellow [facility] Glucose, UA Negative Negative - 1999(110) ++++ mg/dL [facility] Interpretation and review of laboratory results Abnormal [facility] Ketones, UA Negative Negative - 160(16) ++++ mg/dL [facility] Leukocytes, UA Positive Negative - 500+++ Christo/mcL [facility] Comment on above: small Nitrite, UA Negative Negative - Positive [facility] pH, UA 6.5 5 - 9 [facility] [employer] Protein, UA Trace Negative - 1999(20) ++++ mg/dL [facility] Spec Grav, UA 1.025 1 - 1.03 [facility] Urobilinogen, UA 0.2 0.2 - 12 mg/dL [facility] Basic Metabolic Panelon 11-23 Est, Glom Filt Rate - PINF [facility] Comment on above: These results are not [...] Interpretation and review of laboratory results Abnormal [facility] Urea nitrogen/Creatinine [Mass ratio] 12 mg/mg - [facility] Basic Metabolic Profon 12-02 Anion gap [Moles/Vol] 11 mmol/L Normal - [facility] Comment on above: Performed By: #### B MP, LIVP, MG, CDP, LIP #### [facility] [address] [place] [address] Lamp Shade Assembler: Nandini Acevedo MD BUN/CRE Ratio 12 Normal - [facility] Comment on above: Performed By: #### B MP, LIVP, MG, CDP, LIP #### [facility] [address] [address] Lamp Shade Assembler: Nandini Acevedo MD Calcium [Mass/Vol] 9.3 mg/dL Normal 8.6-10.4 [facility] Comment on above: Performed By: #### B MP, LIVP, MG, CDP, LIP #### [facility] [address] [address] Lamp Shade Assembler: Nandini Acevedo MD Chloride [Moles/Vol] 102 mmol/L Normal 98-107 [facility] Comment on above: Performed By: #### B MP, LIVP, MG, CDP, LIP #### [address] [place] [address] Lamp Shade Assembler: Nandini Acevedo MD CO2 [Moles/Vol] 24 mmol/L Normal 20-31 [facility] Comment on above: Performed By: #### B MP, LIVP, MG, CDP, LIP #### [address] [place] [address] Lamp Shade Assembler: Nandini Acevedo MD Creatinine [Mass/Vol] 0.5 mg/dL Normal 0.50-0.90 [facility] Comment on above: Performed By: #### B MP, LIVP, MG, CDP, LIP #### [address] [place] [address] Lamp Shade Assembler: Nandini Acevedo MD GFR/1.73 sq M.predicted among non-blacks MDRD (S/P/Bld) [Vol rate/Area] mL/min/{1.73_m2} Normal >60 [facility] Comment on above: Result Comment: These results [...] B MP, LIVP, MG, CDP, LIP #### [address] [place] [address] Lamp Shade Assembler: Nandini Acevedo MD Glucose [Mass/Vol] 88 mg/dL Normal 74-99 [facility] Comment on above: Performed By: #### B MP, LIVP, MG, CDP, LIP #### [address] [place] [address] Lamp Shade Assembler: Nandini Acevedo MD Potassium [Moles/Vol] 3.6 mmol/L Low 3.7-5.3 [facility] Comment on above: Performed By: #### B MP, LIVP, MG, CDP, LIP #### [address] [place], [place] [id number] Lamp Shade Assembler: Nandini Acevedo MD Sodium [Moles/Vol] 137 mmol/L Normal 136-145 [facility] Comment on above: Performed By: #### B MP, LIVP, MG, CDP, LIP #### [address] [place] [address] Lamp Shade Assembler: Nandini Acevedo MD Urea nitrogen [Mass/Vol] 6 mg/dL Normal 6-20 [facility] Comment on above: Performed By: #### B MP, LIVP, MG, CDP, LIP #### [address] [place] [address] Lamp Shade Assembler: Nandini Acevedo MD CBC with Auto Differentialon 12-02-2024 Basophils (Bld) [#/Vol] 0.04 10*3/uL [facility] Basophils/100 WBC (Bld) 0 % 0 - 2 % [facility] Eosinophils (Bld) [#/Vol] 0.06 10*3/uL [facility] Eosinophils/100 WBC (Bld) 0 % Low 1 - 4 % [facility] Erythrocyte distribution width (RBC) [Ratio] 12.0 % 11.8 - 14.4 % [facility] Hematocrit (Bld) [Volume fraction] 38.6 % 36.3 - 47.1 % [facility] Hemoglobin (Bld) [Mass/Vol] 13.3 g/dL 11.9 - 15.1 g/dL [facility] Immature granulocytes (Bld) [#/Vol] 0.05 10*3/uL [facility] Immature granulocytes/100 WBC (Bld) 0 % 0 [facility] Interpretation and review of laboratory results Abnormal [facility] Lymphocytes/100 WBC (Bld) 9 % Low 24 - 43 % [facility] Lymphocytes/100 WBC (Bld) 1.26 % [facility] MCH (RBC) [Entitic mass] 30.6 pg 25.2 - 33.5 pg [facility] MCHC (RBC) [Mass/Vol] 34.5 g/dL 28.4 - 34.8 g/dL [facility] MCV (RBC) [Entitic vol] 88.7 fL 82.6 - 102.9 fL [facility] Monocytes/100 WBC (Bld) 6 % 3 - 12 % [facility] Monocytes/100 WBC (Bld) 0.88 % [facility] Neutrophils/100 WBC (Bld) 85 % High 36 - 65 % [facility] Nucleated RBC/100 WBC (Bld) [Ratio] 0.0 % 0.0 per 100 WBC [facility] Platelet mean volume (Bld) [Entitic vol] 9.2 fL 8.1 - 13.5 fL [facility] Platelets (Bld) [#/Vol] 267 10*3/uL [facility] RBC (Bld) [#/Vol] 4.35 10*6/uL 3.95 - 5.1 1 m/uL [facility] Segmented neutrophils/100 WBC (Bld) 12.17 % High [facility] WBC other (Bld) [#/Vol] 14.5 High [facility] Bon [facility] CBC with Diffon 12-02-2024 Abs. Basophil 0.04 k/uL Normal 0.00-0.20 [facility] Comment on above: Performed By: #### B MP, LIVP, MG, CDP, LIP #### [address] [place], [place] [address] Lamp Shade Assembler: Nandini Acevedo MD Abs.Imm.Granulocyte 0.05 k/uL Normal 0.00-0.30 [facility] Comment on above: Performed By: #### B MP, LIVP, MG, CDP, LIP #### [address] [place], [place] [id number] Lamp Shade Assembler: Nandini Acevedo MD Abs.Neutrophil (Seg) 12.17 k/uL High 1.50-8.10 [facility] Comment on above: Performed By: #### B MP, LIVP, MG, CDP, LIP #### [address] [place], [place] [id number] Lamp Shade Assembler: Nandini Acevedo MD Basophils/100 WBC (Bld) 0 % Normal 0-2 [facility] Comment on above: Performed By: #### B MP, LIVP, MG, CDP, LIP #### [address] [place], [place] [id number] Lamp Shade Assembler: Nandini Acevedo MD Eosinophils (Bld) [#/Vol] 0.06 10*3/uL Normal 0.00-0.44 [facility] Comment on above: Performed By: #### B MP, LIVP, MG, CDP, LIP #### [address] [place], [place] [id number] Lamp Shade Assembler: Nnadini Acevedo MD Eosinophils/100 WBC (Bld) 0 % Low 1-4 [facility] Comment on above: Performed By: #### B MP, LIVP, MG, CDP, LIP #### [address] [place], [facility]83 Lamp Shade Assembler: Nandini Acevedo MD Erythrocyte distribution width (RBC) [Ratio] 12.0 % Normal 11.8-14.4 [facility] Comment on above: Performed By: #### B MP, LIVP, MG, CDP, LIP #### [address] [place], [facility]83 Lamp Shade Assembler: Nandini Acevedo MD Hematocrit (Bld) [Volume fraction] 38.6 % Normal 36.3-47.1 [facility] Comment on above: Performed By: #### B MP, LIVP, MG, CDP, LIP #### [address] [place], [facility]83 Lamp Shade Assembler: Nandini Acevedo MD Hemoglobin (Bld) [Mass/Vol] 13.3 g/dL Normal 11.9-15.1 [facility] Comment on above: Performed By: #### B MP, LIVP, MG, CDP, LIP #### [address] [place], [facility]83 Lamp Shade Assembler: Nandini Acevedo MD Immature granulocytes/100 WBC (Bld) 0 % Normal 0 [facility] Comment on above: Performed By: #### B MP, LIVP, MG, CDP, LIP #### [address] [place], [facility]83 Lamp Shade Assembler: Nandini Acevedo MD Lymphocytes (Bld) [#/Vol] 1.26 10*3/uL Normal 1.10-3.70 [facility] Comment on above: Performed By: #### B MP, LIVP, MG, CDP, LIP #### [address] [place], [facility]83 Lamp Shade Assembler: Nandini Acevedo MD Lymphocytes/100 WBC (Bld) 9 % Low 24-43 [facility] Comment on above: Performed By: #### B MP, LIVP, MG, CDP, LIP #### [facility] [address] [place] [address] Dr[place], [place] [id number] Lamp Shade Assembler: Nandini Acevedo MD MCH (RBC) [Entitic mass] 30.6 pg Normal 25.2-33.5 [facility] Comment on above: Performed By: #### B MP, LIVP, MG, CDP, LIP #### [address] [place], [place] [id number] Lamp Shade Assembler: Nandini Acevedo MD MCHC (RBC) [Mass/Vol] 34.5 g/dL Normal 28.4-34.8 [facility] Comment on above: Performed By: #### B MP, LIVP, MG, CDP, LIP #### [address] [place], [place] [id number] Lamp Shade Assembler: Nandini Acevedo MD MCV (RBC) [Entitic vol] 88.7 fL Normal 82.6-102.9 [facility] Comment on above: Performed By: #### B MP, LIVP, MG, CDP, LIP #### [address] [place], [place] [id number] Lamp Shade Assembler: Nandini Acevedo MD Monocytes (Bld) [#/Vol] 0.88 10*3/uL Normal 0.10-1.20 [facility] Comment on above: Performed By: #### B MP, LIVP, MG, CDP, LIP #### [address] [place], [place] [id number] Lamp Shade Assembler: Nandini Acevedo MD Monocytes/100 WBC (Bld) 6 % Normal 3-12 [facility] Comment on above: Performed By: #### B MP, LIVP, MG, CDP, LIP #### [address] [place], [place] [id number] Lamp Shade Assembler: Nandini Acevedo MD Neutrophil (Seg) 85 % High 36-65 [facility] Comment on above: Performed By: #### B MP, LIVP, MG, CDP, LIP #### [facility] [address] [place] [address] [address] [place], [place] [id number] Lamp Shade Assembler: Nandini Acevedo MD NRBC Automated 0.0 per 100 WBC Normal 0.0 [facility] Comment on above: Performed By: #### B MP, LIVP, MG, CDP, LIP #### [address] [place], [facility]83 Lamp Shade Assembler: Nandini Acevedo MD Platelet mean volume (Bld) [Entitic vol] 9.2 fL Normal 8.1-13.5 [facility] Comment on above: Performed By: #### B MP, LIVP, MG, CDP, LIP #### [address] [place], [place] [address] Lamp Shade Assembler: Nandini Acevedo MD Platelets (Bld) [#/Vol] 267 10*3/uL Normal 138-453 [facility] Comment on above: Performed By: #### B MP, LIVP, MG, CDP, LIP #### [address] [place], [facility]83 Lamp Shade Assembler: Nandini Acevedo MD RBC (Bld) [#/Vol] 4.35 10*6/uL Normal 3.95-5.11 [facility] Comment on above: Performed By: #### B MP, LIVP, MG, CDP, LIP #### [address] [place], [place] [id number] Lamp Shade Assembler: Nandini Acevedo MD WBC (Bld) [#/Vol] 14.5 10*3/uL High 3.5-11.3 [facility] Comment on above: Performed By: #### B MP, LIVP, MG, CDP, LIP #### [address] [place], [place] [id number] Lamp Shade Assembler: Nandini Acevedo MD Hepatic Function Panelon Albumin/Globulin [Mass ratio] 1.4 {ratio} 1.0 - 2.5 [facility] ALP [Catalytic activity/Vol] 61 U/L 35 - 104 U/L [facility] Bilirubin.direct [Mass/Vol] mg/dL 0.00 - 0.30 mg/dL [facility] Bilirubin.indirect [Mass/Vol] Can not be calculated 0.0 - 1.0 mg/dL [facility] Lipaseon 12-02-2024 Lipase [Catalytic activity/Vol] 34 U/L Normal 13-60 [facility] Comment on above: Performed By: #### B MP, LIVP, MG, CDP, LIP #### [address] [place] [address] Lamp Shade Assembler: Nandini Acevedo MD Liver Profileon 12-02-2024 Albumin [Mass/Vol] 3.9 g/dL Normal 3.5-5.2 [facility] Comment on above: Performed By: #### B MP, LIVP, MG, CDP, LIP #### [address] [place] [address] Lamp Shade Assembler: Nandini Acevedo MD Albumin/Glob Ratio 1.4 Normal 1.0-2.5 [facility] Comment on above: Performed By: #### B MP, LIVP, MG, CDP, LIP #### [address] [place] [address] Lamp Shade Assembler: Nandini Acevedo MD Alkaline Phos 61 U/L Normal 35-104 [facility] Comment on above: Performed By: #### B MP, LIVP, MG, CDP, LIP #### [address] [place] [address] Lamp Shade Assembler: Nandini Acevedo MD ALT [Catalytic activity/Vol] 14 U/L Normal 10-35 [facility] Comment on above: Performed By: #### B MP, LIVP, MG, CDP, LIP #### [facility] [address] [place], [place] 2196983 Lamp Shade Assembler: Nandini Acevedo MD AST [Catalytic activity/Vol] 14 U/L Normal 10-35 [facility] Comment on above: Performed By: #### B MP, LIVP, MG, CDP, LIP #### [address] [place], [place] 8841383 Lamp Shade Assembler: Nandini Acevedo MD Bilirubin [Mass/Vol] mg/dL Normal 0.00-1.20 [facility] Comment on above: Performed By: #### B MP, LIVP, MG, CDP, LIP #### [address] [place], [place] [id number] Lamp Shade Assembler: Nandini Acevedo MD Bilirubin, Indirect Can not be calculated Normal 0.0-1 .0 [facility] Comment on above: Performed By: #### B MP, LIVP, MG, CDP, LIP #### [address] [place], [place] 0559283 Lamp Shade Assembler: Nandini Acevedo MD Bilirubin.indirect [Mass/Vol] mg/dL Normal 0.00-0.30 [facility] Comment on above: Performed By: #### B MP, LIVP, MG, CDP, LIP #### [address] [place], [place] 9349683 Lamp Shade Assembler: Nandini Acevedo MD Protein [Mass/Vol] 6.7 g/dL Normal 6.6-8.7 [facility] Comment on above: Performed By: #### B MP, LIVP, MG, CDP, LIP #### [address] [place] [address] Lamp Shade Assembler: Nandini Acevedo MD Magnesiumon 12-02-2024 Magnesium [Mass/Vol] 1.7 mg/dL Normal 1.6-2.6 [facility] Comment on above: Performed By: #### B MP, LIVP, MG, CDP, LIP #### [facility] [address] [place] [address] Lamp Shade Assembler: Nandini Acevedo MD Microscopic Urinalysison Amorphous sediment LM Ql (Urine sed) 2+ Abnormal None [facility] Epithelial cells LM.HPF (Urine sed) [#/Area] 0 TO 2 [facility] Interpretation and review of laboratory results Abnormal [facility] RBC LM.HPF (Urine sed) [#/Area] 0 TO 2 [facility] WBC LM.HPF (Urine sed) [#/Area] 2 TO 5 [facility] No Panel Informationon 12-02 [facility] US OB LESS THAN 14 WEEKS SIN [...] seen given later gestation Embryo(<11wk) /Fetus(>=11wk): Single Ball Pond Rump Length: 7.9 cm Rate of Cardiac [...] Keyur Benavides MD 12/02/24 Final result Normal [facility] Intrauterine with embryonic/ cardiac activity. Estimated gestational age by current ultrasound is 14 weeks 0 days. [facility] RIS CONSOLIDATED EXAMINATION: FIRST TRIMESTER OBSTETRIC ULTRASOUND 12/02/2024 TECHNIQUE: [...] seen given later gestation Embryo(<11wk) /Fetus(>=11wk): Single Ball [place] Rump Length: 7.9 cm Rate of Cardiac Activity 160 Right ovary: 3.2 x 2.2 x 2.3 cm Left ovary: Surgically absent Free fluid: Measurements: Estimated gestational age by current ultrasound: 14 weeks 0 days Estimated gestational age by LMP/prior ultrasound: 13 weeks 4 days Estimated Due Date: 06/02/2025 by today's ultrasound [facility] Keyur Tompkins MD - 12/02/2024 EXAMINATION: FIRST TRIMESTER OBSTETRIC [...] seen given later gestation Embryo(<11wk) /Fetus(>=11wk): Single Ball P[place] Rump Length: 7.9 cm Rate of Cardiac [...] current ultrasound is 14 weeks 0 days. [facility] Radiology Study observation (narrative) [facility] US OB LESS THAN 14 WEEKS SIN GLE OR FIRST GESTATION W DOPPLEROrdered By: Keyur Benavides on 12-02-2024 [facility] Work Phone: Urinalysison 12-02-2024 Bilirubin Ql (U) Negative NEGATIVE [facility] Clarity (U) Clear Clear [facility] Color (U) Yellow Yellow [facility] Glucose Test strip (U) [Mass/Vol] Negative NEGATIVE mg/dL [facility] Hemoglobin Auto test strip Ql (U) Negative NEGATIVE [facility] Interpretation and review of laboratory results Abnormal [facility] Ketones (U) [Mass/Vol] Negative NEGATIVE mg/dL [facility] Leukocyte esterase Test strip Ql (U) MODERATE Abnormal NEGATIVE [facility] Nitrite Ql (U) Negative NEGATIVE [facility] pH (U) 7.5 [pH] 5.0 - 9.0 [facility] Protein (U) [Mass/Vol] Negative NEGATIVE mg/dL [facility] Specific gravity (U) [Rel density] 1.025 High 1.010 - 1.020 [facility] Urobilinogen Qn (U) Normal 0.0 - 1. 0 EU/dL [facility] Urinalysis, Routineon 2024 Bilirubin, SemiQt,Ur Negative Normal NEG [facility] Comment on above: Performed By: #### U A, UMICAO #### [facility] [address] [place] [address] Lamp Shade Assembler: Nandini Acevedo MD Blood, Urine Negative Normal NEG [facility] Comment on above: Performed By: #### U A, UMICAO #### [facility] [address] [place] [address] Lamp Shade Assembler: Nandini Acevedo MD Clarity (U) Clear Normal CLEAR [facility] Comment on above: Performed By: #### U A, UMICAO #### [facility] [address] [place] [address] Lamp Shade Assembler: Nandini Acevedo MD Color (U) Yellow Normal YEL [facility] Comment on above: Performed By: #### U A, UMICAO #### [facility] [address] [place] [address] [place]. [place], [place] 0474983 Lamp Shade Assembler: Nandini Acevedo MD Glucose Ql (U) Negative Normal NEG [facility] Comment on above: Performed By: #### U A, UMICAO #### [facility] [address] [place] [address] [place], [place] [address] Lamp Shade Assembler: Nandini Acevedo MD Ketones Ql (U) Negative Normal NEG [facility] Comment on above: Performed By: #### U A, UMICAO #### [address] [place] [address] Lamp Shade Assembler: Nandini Acevedo MD Leukocyte esterase Test strip Ql (U) MODERATE Abnormal NEG [facility] Comment on above: Performed By: #### U A, UMICAO #### [address] [place] [address] Lamp Shade Assembler: Nandini Acevedo MD Nitrite,Ur Negative Normal [facility] Comment on above: Performed By: #### U A, UMICAO #### [facility] [address] [place] [address] [place] [address] Lamp Shade Assembler: Nandini Acevedo MD PH,Ur 7.5 Normal 5.0-9.0 [facility] Comment on above: Performed By: #### U A, UMICAO #### [facility] [address] [place] [address] [place] [address] Lamp Shade Assembler: Nandini Acevedo MD Protein Ql (U) Negative Normal NEG [facility] Comment on above: Performed By: #### U A, UMICAO #### [facility] [address] [place] [address] [place], [place] 5256583 Lamp Shade Assembler: Nandini Acevedo MD Spec. [place],Ur 1.025 High 1.010-1.020 [facility] Comment on above: Performed By: #### U A, UMICAO #### [facility] [address] [place] [address] [place] [address] Lamp Shade Assembler: Nandini Acevedo MD Urobilinogen,Ur Normal Normal 0.0-1.0 [facility] Comment on above: Performed By: #### U A, UMICAO #### [facility] [address] [place] [address] [place], [place] 3128283 Lamp Shade Assembler: Nandini Acevedo MD Urinalysis,Microon 5 Amorphous sediment LM Ql (Urine sed) 2+ Abnormal NONE [facility] Comment on above: Performed By: #### U A, UMICAO #### [facility] [address] [place] [address] [place], [place] 5070183 Lamp Shade Assembler: Nandini Acevedo MD Epithelial cells LM Ql (Urine sed) 0 TO 2 Normal 0-25 [facility] Comment on above: Performed By: #### U A, UMICAO #### [facility] [address] [place] [address] [place] [address] Lamp Shade Assembler: Nandini Acevedo MD Urine RBC's 0 TO 2 Normal 0-2 [facility] Comment on above: Performed By: #### U A, UMICAO #### [facility] [address] [place] [address] [place] [address] Lamp Shade Assembler: Nandini Acevedo MD Urine WBC's 2 TO 5 Normal 0-5 [facility] Comment on above: Performed By: #### U A, UMICAO #### [facility] [address] [place] [address] [place] [address] Lamp Shade Assembler: Nandini Acevedo MD HCG ( test) Ql (U)o n 11-03-2024 Interpretation and review of laboratory results Abnormal [facility] re Preg Test, Ur Positive Negative [facility] Urinalysis macro (dipstick) panel (U)on 11-03-2024 Bilirubin, UA Negative Negative - 4(70) +++ mg/dL [facility] Blood, UA Negative Negative - 50 Issac/mcL [facility] Clarity, UA Clear [facility] re Color, UA Yellow [facility] Glucose, UA Negative Negative - 1999(110) ++++ mg/dL [facility] Interpretation and review of laboratory results Normal [facility] Ketones, UA Negative Negative - 160(16) ++++ mg/dL [facility] Leukocytes, UA Negative Negative - 500+++ Christo/mcL [facility] Nitrite, UA Negative Negative - Positive [facility] pH, UA 5 5 - 9 [facility] e Protein, UA Negative Negative - 1999(20) ++++ mg/dL [facility] Spec Grav, UA 1.03 1 - 1.03 [facility] Urobilinogen, UA 1.0 0.2 - 12 mg/dL [facility] ALL CBC WITH AUTO DIFFon BASOPHILS ABSOLUTE AUTO 0 [facility] Basophils/100 WBC (Bld) 0.5 % 0.2 - 2.0 % [facility] Eosinophils/100 WBC (Bld) 1.9 % 0.9 - 7.0 % [facility] Erythrocyte distribution width (RBC) [Ratio] 12.1 % 11.0 - 15.0 % [facility] Hematocrit (Bld) [Volume fraction] 40.1 % 36.0 - 48.0 [facility] Hem[facility] (Bld) [Mass/Vol] 13.5 g/dL 12.0 - 16.0 g/dL [facility] IMMATURE GRANULOCYTES ABS AUTO 0.03 [facility] Immature granulocytes/100 WBC (Bld) 0.4 % 0.0 - 0.5 % [facility] Interpretation and review of laboratory results Abnormal [facility] re LYMPHOCYTES ABSOLUTE AUTO 1.7 [facility] Lymphocytes/100 WBC (Bld) 23.9 % 20.5 - 60.0 % [facility] MCH (RBC) [Entitic mass] 30.3 pg 26.7 - 34.0 pg [facility] MCHC (RBC) [Mass/Vol] 33.7 g/dL 29.9 - 35.2 g/dL [facility] MCV (RBC) [Entitic vol] 90.1 fL 81.0 - 99.0 fL [facility] MONOCYTES ABSOLUTE AUTO 0.5 [facility] Monocytes/100 WBC (Bld) 7.4 % 1.7 - 12.0 % [facility] NEUTROPHILS ABSOLUTE AUTO 4.8 [facility] Neutrophils/100 WBC (Bld) 65.9 % 43.0 - 75.0 % [facility] Platelet mean volume (Bld) [Entitic vol] 8.7 fL Low 9.5 - 13.5 fL [facility] EO # 0.1 [facility] PLT 299 [facility] RBC 4.45 [facility] WBC 7.3 [facility] Screenson 05-11-2024 Screens [id number]# 1.00TIFF Normal [facility] Ambulatory Visit Summaryon 0 2024 Ambulatory Visit Summary ASHLEE RODRÍGUEZN Rivera :1995 Visit Date:2024 Ambulatory Visit Instructions Your [...] PM EDT With: Yonis MIRANDA MD Where: [facility] [place] Normal [facility] Patient Educationon 05-10-20 Patient Education Caregiving Antibiotic Medicine, Adult Antibiotic [...] Follow these instructions at home: ? Take qssx-cei-wyovtpo and prescription medicines as told by your [...] get worse. (more content not included)... Normal [facility] Urology Office/Clinic Noteon 2024 Urology Office/Clinic [...] back normal. Is considering f/u with a clinic licensed practical nurse. Also had a difficult PO recovery and had a CT scan done in the ER which indicated her Mirhieu is not in the correct spot. States she plans to f/u with her 3d animator. We did speak about how some pts [...] Bactrim SS 1 tab prn -F/u with [facility] to discuss IUD/different form of control -F/u [...] Contact Information LUIS STEPHENS, JANNETH Barreto, URL [address] [facility] [place] [address] [phone] Additional Instructions: 6 mos (no labs) Patient Education Antibiotic Medicine, Adult Documentation recorded by the curt Parra accurately reflects the services(s) I performed and decisions made by me. Authenticated by Janneth Smith PA-C on 2024 09:54:59. IOndina, personally scribed for Janneth Smith PA-C on [...] influenza virus vaccine, (more content not included)... [facility] Comment on above: Result Comment: Elec tronically Signed By: JANNETH SMITH PA-C\.br\Date and Time Signed: 05/10/24 09:55 EDT\.br\Electronically Co-Signed By: Ondina Parra\.br\Date and Time Co-Signed: 05/10/24 09:51 EDT Outside Colonoscopyon 2023 Outside Colonoscopy [id number]#1. 00TIFF [facility] Lab Reportson 04-28-2024 Lab Reports [id number]#1 .00TIFF [facility] Consent for Procedure/Surger yon 03-09-2024 Consent for Procedure/Surgery [id number]#1 .00TIFF [facility] Ambulatory Visit Summaryon 0 03-08-2024 Ambulatory Visit Summary ROSALIE RODRÍGUEZ V :1995 Visit Date:03/08/2024 Ambulatory Visit Instructions Your Care Team Attending Physician - RUTH CLARK, Yonis Mckenzie Primary Care Physician - Beena CLARK, Melodie Referring Physician - Beena CLARK, Melodie This [...] JANNETH SMITH PA-C Where: [facility] Physician Referralon 024 Physician Referral [id number]#1 .00TIFF [facility] Physician Referralon 024 Physician Referral [id number]#1 .00TIFF [facility] Consent for Procedure/Surger yon 02-09-2024 Consent for Procedure/Surgery [id number]# 1.00TIFF [facility] Consent for Treatmenton 01-21 Consent for Treatment [id number]#1 .00TIFF [facility] IntraOperative Documentson 0 02-09-2024 IntraOperative Documents [id number] 1.00TIFF Lisbeth [facility] Main OR Intraoperative Recor don 02-09-2024 Main OR Intraoperative Record IntraOp Document Type FTURO Summary Primary Physician: Dieter REMY MD Finalized Date/Time: 02/09/24 08:32:09 Pt. Name: PETEROSALIE/Sex: 1995 Female Med Rec #: [id number] Physician: Dieter REMY MD Financial #: [id number] Pt. Type: O Room/Bed: / Admit/Disch: 02/09/24 07:32:51 - Institution: Case Times FTURO Entry 1 Patient Times In Room 02/09/24 08:10:00 Out Room 02/09/24 08:38:00 Procedure Times Start 02/09/24 08:24:00 Stop 02/09/24 08:33:00 Anesthesia Times Last Modified By: Сергей VALENZUELA, RAYMONDOR, Sangita 02/09/24 08:31:26 Case Attendance FTURO Entry 1 Entry 2 Entry 3 Case Attendee Dieter REMY MD RN, CNOR, Maryam GRIGSBY, Bianca Quesada Role Performed Surgeon - Primary Tax Lawyer - Primary Scrub - Primary Time In 02/09/24 08:10:00 02/09/24 08:10:00 02/09/24 08:10:00 Time Out 02/09/24 08:38:00 02/09/24 08:38:00 02/09/24 08:38:00 Procedure CYSTOSCOPY LOCAL(.) CYSTOSCOPY LOCAL(.) CYSTOSCOPY LOCAL(.) Comments Last Modified By: Сергей RN, CNOR, Сергей RN, CNOR, Сергей VALENZUELA, RAYMONDOR, Sangita 02/09/24 Sangita 02/09/24 [...] GIUSEPPE Rushing RN, Ruthann 02/09/24 08:32 Normal [facility] Main OR Preoperative Recordo n 02-09-2024 Main OR Preoperative Record Holding Area Document Type FTURO Summary Primary Physician: Dieter REMY MD Finalized Date/Time: 02/09/24 08:08:52 Pt. Name: PETEROSALIE D.O.B./Sex: 1995 Female Med Rec #: [id number] Physician: Dieter REMY MD Financial #: [id number] Pt. Type: O Room/Bed: / Admit/Disch: 02/09/24 [...] By: GIUSEPPE Rushing RN, Ruthann 02/09/24 08:08 [facility] Operative Reporton Operative Report Patient: ASHLEE [...] of her recurrent urinary tract infections.. Normal [facility] Comment on above: Result Comment: Elec tronically Signed By: Dieter REMY MD\.br\Date and Time Signed: 02/09/24 08:36 EDT Outpatient Surgery Discharge Instructionon 02-09-2024 Outpatient Surgery Discharge Instruction [id number]# 1.00TIFF [facility] RAD - MISCon 01-29-2024 RAD - MISC [id number]#1 .00TIFF [facility] C Urineon 01-21-2024 Bacteria identified Cx [...] Locations R1: This test was performed at: [facility], [address] [place] [address], [facility] , , [facility] Comment on above: Performed By: #### 2 [id number] ####[facility] [address] [place] [address] RAD - Ultrasound Reporton RAD - Ultrasound Report [id number]# 1.00TIFF [facility] Screenson 01-21-2024 Screens [id number]#1 .00TIFF [facility] Ambulatory Visit Summaryon 0 01-19-2024 Ambulatory Visit Summary ASHLEE RODRÍGUEZN Rivera :1995 Visit Date:01/19/2024 Ambulatory Visit Instructions Your [...] JANNETH SMITH PA-C, URL When: [facility] [address] [facility] [place] [address] Medications What How Much When Instructions New sulfamethoxazole-trim ethoprim (Bactrim 400 mg-80 mg Tab) 1 Tablets By Mouth Every day as needed for UTI prevention Refills: 3 Pickup at [facility]/pharmacy #[id number] Unchanged guanfacine (guanfacine 3 [...] physician if questions or concerns Pharmacy Information [facility]/pharmacy #[id number]: [address], [place] [phone] Allergies No Known Allergies No Known Medication [...] Trouble urinati (more content not included)... Normal [facility] Patient Educationon 01-19-20 24 Patient Education [...] this condition includes: ? Antibiotic medicine. ? Iybt-mgz-tbpkbkj medicines to treat discomfort. ? Drinking enough [...] these instructions at home: Medicines ? Take umdd-dmp-oscebwx and prescription medicines only as told by [...] Document Revie (more content not included)... Normal [facility] BNPon 04-17-2023 Natriuretic peptide B (Bld) [Mass/Vol] 246.0 pg/mL Normal <=450.0 [facility] Comment on above: Performed By: #### I NSULIN #### [facility] [address] [place] [address] Dr. Saray Souza CARDIAC NELI ADMITon 023 CK [Catalytic activity/Vol] 47 U/L Normal 26-192 [facility] Comment on above: Performed By: #### I NSULIN #### [facility] [address] [place] [address] Dr. Saray Souza CK.MB [Mass/Vol] 1.02 ng/mL Normal <=3.60 [facility] Comment on above: Performed By: #### I NSULIN #### [facility] [address] [place] [address] Dr. Saray Souza HSTROP 4.5 pg/mL Normal 4.0-51.3 [facility] Comment on above: Result Comment: CUT- OFF POINTS HAVE BEEN ESTABLISHED BASED ON THE FOURTH UNIVERSAL DEFINITIONS OF MYOCARDIAL INFARCTION. THE UPPER REFERENCE LIMIT (URL) OF TROPONIN, DEFINED THE 99TH PERCENTILE OF cTnI DISTRIBUTION IN A REFERENCE POPULATION, HAS BEEN CONFIRMED THE DECISION THRESHOLD FOR SC DIAGNOSIS. Performed By: #### I NSULIN #### [facility] [address] [place] [address] Dr. Saray Souza FRANKLIN 36 ng/mL Normal 9- [facility] Comment on above: Performed By: #### I CURLYULIN #### [facility] [address] [place] [address] Dr. Saray Souza CBC W MANUAL DIFFon 04-17-20 23 ATYPICAL LYMPH # Normal [facility] Comment on above: Performed By: #### C BCMAN #### [facility] [address] [place] [address] Dr. Saray Souza ATYPICAL LYMPH % Normal [facility] Comment on above: Performed By: #### C BCPRESLEY #### [facility] [address] [place] [address] Dr. Saray Souza BAND # 0.3 103/ul Normal 0.0-0.3 [facility] Comment on above: Performed By: #### C EDGARDO #### [facility] [address] [place] [address] Dr. Saray Souza BAND % 1 % Normal 0-5 [facility] Comment on above: Performed By: #### C EDGARDO #### [facility] [address] [place] [address] Dr. Saray Souza BASOM # 0.00 103/ul Normal 0.00-0.10 [facility] Comment on above: Performed By: #### C EDGARDO #### [facility] [address] [place] [address] Dr. Saray Souza BASOM % 0.0 % Critically low 0.2-2.0 [facility] Comment on above: Performed By: #### C BCPRESLEY #### [facility] [address] [place] [address] Dr. Saray Souza BLAST # Normal [facility] Comment on above: Performed By: #### C EDGARDO #### [facility] [address] [place] [address] Dr. Saray Souza BLAST % Normal [facility] Comment on above: Performed By: #### C EDGARDO #### [facility] [address] [place] [address] Dr. Saray Souza CORRECTED WBC Normal 4.0-11.0 [facility] Comment on above: Performed By: #### C EDGARDO #### [facility] [address] [place] [address] Dr. Saray Souza EOS # 0.00 103/ul Normal 0.00-0.70 [facility] Comment on above: Performed By: #### C EDGARDO #### [facility] [address] [place] [address] Dr. Saray Souza EOS% 0.0 % Critically low 0.9-7.0 [facility] Comment on above: Performed By: #### C EDGARDO #### [facility] [address] [place] [address] Dr. Saray Souza HCT 43.6 % Normal 36.0-48.0 [facility] Comment on above: Performed By: #### C EDGARDO #### [facility] [address] [place] [address] Dr. Saray Souza HGB 14.7 g/dl Normal 12.0-16.0 [facility] Comment on above: Performed By: #### C EDGARDO #### [facility] [address] [place] [address] Dr. Saray Souza LYMPHM # 1.55 103/ul Normal 1.20-3.80 [facility] Comment on above: Performed By: #### C EDGARDO #### [facility] [address] [place] [address] Dr. Saray Souza LYMPHM% 6.0 % Critically low 20.5-60.0 [facility] Comment on above: Performed By: #### C EDGARDO #### [facility] [address] [place] [address] Dr. Saray Souza MCH 30.3 pg Normal 26.7-34.0 [facility] Comment on above: Performed By: #### C EDGARDO #### [facility] [address] [place] [address] Dr. Saray Souza MCHC 33.7 g/dl Normal 29.9-35.2 [facility] Comment on above: Performed By: #### C EDGARDO #### [facility] [address] [place] [address] Dr. Saray Souza MCV 89.9 fL Normal 81.0-99.0 [facility] Comment on above: Performed By: #### C EDGARDO #### [facility] [address] [place] [address] Dr. Saray Souza METAMYELOCYTE # Normal [facility] Comment on above: Performed By: #### C EDGARDO #### [facility] [address] [place] [address] Dr. Saray Souza METAMYELOCYTE % Normal [facility] Comment on above: Performed By: #### C EDGARDO #### [facility] [address] [place] [address] Dr. Saray Souza MONOM# 2.06 103/ul Critically high 0.30-0.80 [facility] Comment on above: Performed By: #### C EDGARDO #### [facility] [address] [address] [address] Saray Souza MONOM% 8.0 % Normal 1.7-12.0 [facility] Comment on above: Performed By: #### C EDGARDO #### [facility] [address] [place] [address] Dr. Saray Souza MPV 8.8 fL Critically low 9.5-13.5 [facility] Comment on above: Performed By: #### C EDGARDO #### [facility] [address] [place] [address] Dr. Saray Souza MYELOCYTE # Normal [facility] Comment on above: Performed By: #### C EDGARDO #### [facility] [address] [place] [address] Dr. Saray Souza MYELOCYTE % Normal [facility] Comment on above: Performed By: #### C EDGARDO #### [facility] [address] [place] [address] Dr. Saray Souza NRBC Normal [facility] Comment on above: Performed By: #### C EDGARDO #### [facility] [address] [place] [address] Dr. Saray Souza PLT 397 103/ul Normal 150-450 [facility] Comment on above: Performed By: #### C EDGARDO #### [facility] [address] [place] [address] Dr. Saray Souza RBC 4.85 106/ul Normal 4.20-5.40 [facility] Comment on above: Performed By: #### C EDGARDO #### [facility] [address] [place] [address] Dr. Saray Souza RDW 12.0 % Normal 11.0-15.0 [facility] Comment on above: Performed By: #### C EDGARDO #### [facility] [address] [place] [address] Dr. Saray Souza SEG # 21.93 103/ul Critically high 1.40-6.50 [facility] Comment on above: Performed By: #### C EDGARDO #### [facility] [address] [place] [address] Dr. Saray Souza SEG % 85.0 % Critically high 43.0-75.0 [facility] Comment on above: Performed By: #### C BCMAN #### [facility] [address] [place] [address] Dr. Saray Souza WBC 25.8 103/ul Critically high 4.0-11.0 [facility] Comment on above: Performed By: #### C BCMAN #### [facility] [address] [place] [address] Dr. Saray Souza CULTURE URINEon 04-17-2023 CULTURE URINE Culture Observations : LORENZO TO FOLLOW. Isolate 1 Enterococcus faecalis 20,000 cfu/mL of Normal [facility] Comment on above: Performed By: #### C BC #### [facility] [address] [place] [address] Dr. Saray Souza ER URINE PROFILEon 3 Bilirubin Ql (U) Negative Normal NEGATIVE [facility] Comment on above: Performed By: #### C BC #### [facility] [address] [place] [address] Dr. Saray Souza Clarity (U) CLEAR Normal CLEAR [facility] Comment on above: Performed By: #### C BC #### [facility] [address] [place] [address] Dr. Saray Souza Color (U) LT. YELLOW Normal YELLOW [facility] Comment on above: Performed By: #### C BC #### [facility] [address] [place] [address] Dr. Saray PARKERHumera A micrscopic examination will be performed if indicated. Normal [facility] Comment on above: Performed By: #### C BC #### [facility] [address] [place] [address] Dr. Saray Souza Glucose Ql (U) Negative Normal NEGATIVE [facility] Comment on above: Performed By: #### C BC #### [facility] [address] [place] [address] Dr. Saray Souza Hemoglobin Ql (U) Negative Normal NEGATIVE [facility] Comment on above: Performed By: #### C BC #### [facility] [address] [place] [address] Dr. Saray Souza Ketones Ql (U) Negative Normal NEGATIVE [facility] Comment on above: Performed By: #### C BC #### [facility] [address] [place] [address] Dr. Saray Souza LEUKOCYTES SMALL Abnormal NEGATIVE [facility] Comment on above: Performed By: #### C BC #### [facility] [address] [place] [address] Dr. Saray Souza Nitrite Ql (U) Negative Normal NEGATIVE [facility] Comment on above: Performed By: #### C BC #### [facility] [address] [place] [address] Dr. Saray Souza pH (U) 6.5 [pH] Normal 5-9 [facility] Comment on above: Performed By: #### C BC #### [facility] [address] [place] [address] Dr. Saray Souza SPEC GRAVITY 1.025 Normal 1.005-<=1.025 [facility] Comment on above: Performed By: #### C BC #### [facility] [address] [place] [address] Dr. Saray Souza UA PROTEIN Negative Normal NEGATIVE/ TRACE [facility] Comment on above: Performed By: #### C BC #### [facility] [address] [place] [address] Dr. Saray Souza UR MICRO IND INDICATED Normal [facility] Comment on above: Performed By: #### C BC #### [facility] [address] [place] [address] Dr. Saray Souza Urobilinogen Qn (U) 0.2 {Janine'U}/dL Normal 0.2 - 1. 0 [facility] Comment on above: Performed By: #### C BC #### [facility] [address] [place] [address] Dr. Saray Souza URon 04-17-2023 , QUAL Negative Normal NEGATIVE [facility] Comment on above: Performed By: #### C BC #### [facility] [address] [address] [address] Saray Souza PROF 14(COMP METB)on 023 Albumin [Mass/Vol] 3.0 g/dL Critically low 3.4-5.0 [facility] Comment on above: Performed By: #### I NSULIN #### [facility] [address] [address] [address] Saray Souza Albumin/Globulin [Mass ratio] 0.9 {ratio} Normal [facility] Comment on above: Performed By: #### I NSULIN #### [facility] [address] [place] [address] Dr. Saray Souza ALP [Catalytic activity/Vol] 54 U/L Normal 46-116 [facility] Comment on above: Performed By: #### I NSULIN #### [facility] [address] [place] [address] Dr. Saray Souza ALT [Catalytic activity/Vol] 27 U/L Normal 14-59 [facility] Comment on above: Performed By: #### I NSULIN #### [facility] [address] [place] [address] Dr. Saray Souza Anion gap [Moles/Vol] 12.9 mmol/L Normal [facility] Comment on above: Performed By: #### I NSULIN #### [facility] [address] [place] [address] Dr. Saray Souza AST [Catalytic activity/Vol] 12 U/L Critically low 15-37 [facility] Comment on above: Performed By: #### I NSULIN #### [facility] [address] [place] [address] Dr. Saray Souza Bilirubin [Mass/Vol] 0.3 mg/dL Normal 0.2-1.0 [facility] Comment on above: Performed By: #### I NSULIN #### [facility] [address] [place] [address] Dr. Saray Souza Calcium [Mass/Vol] 8.1 mg/dL Critically low 8.5-10.1 [facility] Comment on above: Performed By: #### I NSULIN #### [facility] [address] [address] [address] Saray Souza Chloride [Moles/Vol] 102 mmol/L Normal 98-107 [facility] Comment on above: Performed By: #### I NSULIN #### [facility] [address] [address] [address] Saray Souza CO2 [Moles/Vol] 26.2 mmol/L Normal 21.0-32.0 [facility] Comment on above: Performed By: #### I NSULIN #### [facility] [address] [address] [address] Saray Souza Creatinine [Mass/Vol] 0.87 mg/dL Normal 0.55-1.02 [facility] Comment on above: Performed By: #### I NSULIN #### [facility] [address] [place] [address] Dr. Saray Souza EGFR-AF SALVADOREAN >60 Normal >=60 [facility] Comment on above: Performed By: #### I NSULIN #### [facility] [address] [address] [address] Saray Souza EGFR-NON AF SALVADOREAN >60 Normal >=60 [facility] Comment on above: Performed By: #### I NSULIN #### [facility] [address] [place] [address] Dr. Saray Souza Globulin (S) [Mass/Vol] 3.2 g/dL Normal [facility] Comment on above: Performed By: #### I NSULIN #### [facility] [address] [address] [address] Saray Souza Glucose [Mass/Vol] 206 mg/dL Critically high 74-106 [facility] Comment on above: Performed By: #### I NSULIN #### [facility] [address] [address] [address] Saray Souza Potassium [Moles/Vol] 4.1 mmol/L Normal 3.5-5.1 [facility] Comment on above: Performed By: #### I NSULIN #### [facility] [address] [place] [address] Dr. Saray Souza Protein [Mass/Vol] 6.2 g/dL Critically low 6.4-8.2 [facility] Comment on above: Performed By: #### I NSULIN #### [facility] [address] [place] [address] Dr. Saray Souza Sodium [Moles/Vol] 137 mmol/L Normal 136-145 [facility] Comment on above: Performed By: #### I NSULIN #### [facility] [address] [place] [address] Dr. Saray Souza Urea nitrogen [Mass/Vol] 19.0 mg/dL Critically high 7.0-18.0 [facility] Comment on above: Performed By: #### I NSULIN #### [facility] [address] [place] [address] Dr. Saray Souza Urea nitrogen/Creatinine [Mass ratio] 21.8 mg/mg Normal [facility] Comment on above: Performed By: #### I NSULIN #### [facility] [address] [place] [address] Dr. Saray Souza TSHon 04-17-2023 TSH 0.553 uIU/mL Normal 0.358-3.740 [facility] Comment on above: Performed By: #### I NSULIN #### [facility] [address] [place] [address] Dr. Sarya Souza URINE MICROSCOPIC ONLYon BACTERIA TRACE Abnormal NONE SEEN [facility] Comment on above: Performed By: #### C BC #### [facility] [address] [place] [address] Dr. Saray Souza Bacteria identified Cx Nom (U) INDICATED Normal [facility] Comment on above: Performed By: #### C BC #### [facility] [address] [place] [address] Dr. Saray Souza CAST NONE SEEN Normal NONE SEEN [facility] Comment on above: Performed By: #### C BC #### [facility] [address] [place] [address] Dr. Saray Souza Crystals LM Nom (Urine sed) NONE SEEN Normal NONE SEEN [facility] Comment on above: Performed By: #### C BC #### [facility] [address] [address] [address] Saray Souza Epithelial cells LM Ql (Urine sed) RARE Normal NONE SEEN /RARE [facility] Comment on above: Performed By: #### C BC #### [facility] [address] [address] [address] Saray Souza MUCOUS NONE SEEN Normal NONE SEEN [facility] Comment on above: Performed By: #### C BC #### [facility] [address] [address] [address] Saray Souza RBC 0-2 Normal 0-2 [facility] Comment on above: Performed By: #### C BC #### [facility] [address] [place] [address] Dr. Saray Souza WBC 5-10 Abnormal NONE SEEN [facility] Comment on above: Performed By: #### C BC #### [facility] [address] [place] [address] Dr. Saray Souza XR CHEST 2 Von [...] CAROL RAMIREZ Date: 2023-04-17 10:45 Normal [facility] INSULINon 04-07-2023 Insulin 11.3 uIU/mL Normal 2.6-24.9 [facility] Comment on above: Performed By: #### I NSULIN #### [facility] [address] [place] [address] Dr. Saray Souza US KIDNEYS BLADDERon 023 [...] NANDINI MAYER Date: 2023-04-04 08:22 Normal [facility] INSULINon 04-02-2023 Insulin 37.5 uIU/mL Critically high 2.6-24.9 [facility] Comment on above: Performed By: #### I NSULIN #### [facility] [address] [place] [address] Dr. Saray Souza CBC AUTO DIFFon 04-01-2023 BASO # 0.0 103/ul Normal 0.0-0.1 [facility] Comment on above: Performed By: #### C BC #### [facility] [address] [place] [address] Dr. Saray Souza Basophils/100 WBC (Bld) 0.5 % Normal 0.2-2.0 [facility] Comment on above: Performed By: #### C BC #### [facility] [address] [place] [address] Dr. Saray Souza EO # 0.2 103/ul Normal 0.0-0.7 [facility] Comment on above: Performed By: #### C BC #### [facility] [address] [place] [address] Dr. Saray Souza Eosinophils/100 WBC (Bld) 2.3 % Normal 0.9-7.0 [facility] Comment on above: Performed By: #### C BC #### [facility] [address] [place] [address] Dr. Saray Souza Erythrocyte distribution width (RBC) [Ratio] 11.9 % Normal 11.0-15.0 [facility] Comment on above: Performed By: #### C BC #### [facility] [address] [place] [address] Dr. Saray Souza Hematocrit (Bld) [Volume fraction] 42.2 % Normal 36.0-48.0 [facility] Comment on above: Performed By: #### C BC #### [facility] [address] [place] [address] Dr. Saray Souza Hemoglobin (Bld) [Mass/Vol] 13.7 g/dL Normal 12.0-16.0 [facility] Comment on above: Performed By: #### C BC #### [facility] [address] [place] [address] Dr. Saray Souza IG # 0.02 10e3/ul Normal 0.00-0.03 [facility] Comment on above: Performed By: #### C BC #### [facility] [address] [place] [address] Dr. Saray Souza IG % 0.3 % Normal 0.0-0.5 [facility] Comment on above: Performed By: #### C BC #### [facility] [address] [place] [address] Dr. Saray Souza LYMPH # 1.6 103/ul Normal 1.2-3.8 [facility] Comment on above: Performed By: #### C BC #### [facility] [address] [place] [address] Dr. Saray Souza Lymphocytes/100 WBC (Bld) 21.5 % Normal 20.5-60.0 [facility] Comment on above: Performed By: #### C BC #### [facility] [address] [place] [address] Dr. Saray Souza MANUAL DIFF REQ NO Normal [facility] Comment on above: Performed By: #### C BC #### [facility] [address] [place] [address] Dr. Saray Souza MCH (RBC) [Entitic mass] 30.0 pg Normal 26.7-34.0 [facility] Comment on above: Performed By: #### C BC #### [facility] [address] [place] [address] Dr. Saray Souza MCHC (RBC) [Mass/Vol] 32.5 g/dL Normal 29.9-35.2 [facility] Comment on above: Performed By: #### C BC #### [facility] [address] [place] [address] Dr. Saray Souza MCV (RBC) [Entitic vol] 92.5 fL Normal 81.0-99.0 [facility] Comment on above: Performed By: #### C BC #### [facility] [address] [place] [address] Dr. Saray Souza MONO # 0.7 103/ul Normal 0.3-0.8 [facility] Comment on above: Performed By: #### C BC #### [facility] [address] [place] [address] Dr. Saray Souza Monocytes/100 WBC (Bld) 9.6 % Normal 1.7-12.0 [facility] Comment on above: Performed By: #### C BC #### [facility] [address] [place] [address] Dr. Saray Souza NEUT # 5.0 103/ul Normal 1.4-6.5 [facility] Comment on above: Performed By: #### C BC #### [facility] [address] [place] [address] Dr. Saray Souza Neutrophils/100 WBC (Bld) 65.8 % Normal 43.0-75.0 [facility] Comment on above: Performed By: #### C BC #### [facility] [address] [place] [address] Dr. Saray Souza Platelet mean volume (Bld) [Entitic vol] 8.9 fL Critically low 9.5-13.5 [facility] Comment on above: Performed By: #### C BC #### [facility] [address] [place] [address] Dr. Saray Souza PLT 293 103/ul Normal 150-450 [facility] Comment on above: Performed By: #### C BC #### [facility] [address] [place] [address] Dr. Saray Souza RBC 4.56 106/ul Normal 4.20-5.40 [facility] Comment on above: Performed By: #### C BC #### [facility] [address] [place] [address] Dr. Saray Souza WBC 7.5 103/ul Normal 4.0-11.0 [facility] Comment on above: Performed By: #### C BC #### [facility] [address] [place] [address] Dr. Saray Souza CULTURE URINEon 04-01-2023 CULTURE URINE Culture Observations : MODERATE GROWTH OF MIXED GENITAL CARMELO. NO POTENTIAL PATHOGENS SEEN. Normal [facility] Comment on above: Performed By: #### C BC #### [facility] [address] [place] [address] Dr. Saray Souza FREE THYROXINE INDEX T7on FTI 2.51 Normal 1.30-4.50 [facility] Comment on above: Performed By: #### I NSULIN #### [facility] [address] [place] [address] Dr. Saray Souza T3U 33.0 % Normal 30.0-39.0 [facility] Comment on above: Performed By: #### I NSULIN #### [facility] [address] [place] [address] Dr. Saray Souza T4 [Mass/Vol] 7.60 ug/dL Normal 4.80-13.90 [facility] Comment on above: Performed By: #### I NSULIN #### [facility] [address] [place] [address] Dr. Saray Souza IRONon 04-01-2023 Iron [Mass/Vol] 151.0 ug/dL Normal 50.0-170.0 [facility] Comment on above: Performed By: #### C BCMAN #### [facility] [address] [place] [address] Dr. Saray Souza PROF 14(COMP METB)on 023 Albumin [Mass/Vol] 3.7 g/dL Normal 3.4-5.0 [facility] Comment on above: Performed By: #### C EDGARDO #### [facility] [address] [place] [address] Dr. Saray Souza Albumin/Globulin [Mass ratio] 1.1 {ratio} Normal [facility] Comment on above: Performed By: #### C EDGARDO #### [facility] [address] [place] [address] Dr. Saray Souza ALP [Catalytic activity/Vol] 81 U/L Normal 46-116 [facility] Comment on above: Performed By: #### C EDGARDO #### [facility] [address] [place] [address] Dr. Saray Souza ALT [Catalytic activity/Vol] 33 U/L Normal 14-59 [facility] Comment on above: Performed By: #### C EDGARDO #### [facility] [address] [place] [address] Dr. Saray Souza Anion gap [Moles/Vol] 10.2 mmol/L Normal [facility] Comment on above: Performed By: #### C EDGARDO #### [facility] [address] [place] [address] Dr. Saray Souza AST [Catalytic activity/Vol] 22 U/L Normal 15-37 [facility] Comment on above: Performed By: #### C EDGARDO #### [facility] [address] [place] [address] Dr. Saray Souza Bilirubin [Mass/Vol] 0.3 mg/dL Normal 0.2-1.0 [facility] Comment on above: Performed By: #### C EDGARDO #### [facility] [address] [place] [address] Dr. Saray Souza Calcium [Mass/Vol] 8.6 mg/dL Normal 8.5-10.1 [facility] Comment on above: Performed By: #### C EDGARDO #### [facility] [address] [place] [address] Dr. Saray Souza Chloride [Moles/Vol] 105 mmol/L Normal 98-107 [facility] Comment on above: Performed By: #### C BCMAN #### [facility] [address] [address] [address] Saray Souza CO2 [Moles/Vol] 30.4 mmol/L Normal 21.0-32.0 [facility] Comment on above: Performed By: #### C BCMAN #### [facility] [address] [place] [address] Dr. Saray Souza Creatinine [Mass/Vol] 0.72 mg/dL Normal 0.55-1.02 [facility] Comment on above: Performed By: #### C BCPRESLEY #### [facility] [address] [place] [address] Dr. Saray Souza EGFR-AF SALVADOREAN >60 Normal >=60 [facility] Comment on above: Performed By: #### C BCPRESLEY #### [facility] [address] [place] [address] [address] Saray Souza EGFR-NON AF SALVADOREAN >60 Normal >=60 [facility] Comment on above: Performed By: #### C BCPRESLEY #### [facility] [address] [place] [address] [address] Saray Souza Globulin (S) [Mass/Vol] 3.5 g/dL Normal [facility] Comment on above: Performed By: #### C BCMAN #### [facility] [address] [place] [address] [address] Saray Souza Glucose [Mass/Vol] 89 mg/dL Normal 74-106 [facility] Comment on above: Performed By: #### C BCMAN #### [facility] [address] [place] [address] [address] Saray Souza Potassium [Moles/Vol] 3.6 mmol/L Normal 3.5-5.1 [facility] Comment on above: Performed By: #### C BCMAN #### [facility] [address] [place] [address] Dr. Saray Souza Protein [Mass/Vol] 7.2 g/dL Normal 6.4-8.2 [facility] Comment on above: Performed By: #### C EDGARDO #### [facility] [address] [place] [address] Dr. Saray Souza Sodium [Moles/Vol] 142 mmol/L Normal 136-145 [facility] Comment on above: Performed By: #### C BCPRESLEY #### [facility] [address] [place] [address] Dr. Saray Souza Urea nitrogen [Mass/Vol] 12.0 mg/dL Normal 7.0-18.0 [facility] Comment on above: Performed By: #### C EDGARDO #### [facility] [address] [place] [address] Dr. Saray Souza Urea nitrogen/Creatinine [Mass ratio] 16.7 mg/mg Normal [facility] Comment on above: Performed By: #### C EDGARDO #### [facility] [address] [place] [address] Dr. Saray Souza TSHon 04-01-2023 TSH 1.708 uIU/mL Normal 0.358-3.740 [facility] Comment on above: Performed By: #### I NSULIN #### [facility] [address] [place] [address] Dr. Saray Souza UA RANDOM W/MICROSCOPICon BACTERIA SMALL Abnormal NONE SEEN [facility] Comment on above: Performed By: #### I NSULIN #### [facility] [address] [place] [address] Dr. Saray Souza Bilirubin Ql (U) Negative Normal NEGATIVE [facility] Comment on above: Performed By: #### I NSULIN #### [facility] [address] [place] [address] Dr. Saray Souza CAST NONE SEEN Normal NONE SEEN [facility] Comment on above: Performed By: #### I NSULIN #### [facility] [address] [place] [address] Dr. Saray Souza Clarity (U) CLEAR Normal CLEAR [facility] Comment on above: Performed By: #### I NSULIN #### [facility] [address] [place] [address] Dr. Saray Souza Color (U) YELLOW Normal YELLOW [facility] Comment on above: Performed By: #### I NSULIN #### [facility] [address] [place] [address] Dr. Saray Souza Crystals LM Nom (Urine sed) NONE SEEN Normal NONE SEEN [facility] Comment on above: Performed By: #### I NSULIN #### [facility] [address] [place] [address] Dr. Saray Souza Epithelial cells LM Ql (Urine sed) FEW Abnormal NONE SEEN /RARE [facility] Comment on above: Performed By: #### I NSULIN #### [facility] [address] [place] [address] Dr. Saray Souza Glucose Ql (U) Negative Normal NEGATIVE [facility] Comment on above: Performed By: #### I NSULIN #### [facility] [address] [place] [address] Dr. Saray Souza Hemoglobin Ql (U) Negative Normal NEGATIVE [facility] Comment on above: Performed By: #### I NSULIN #### [facility] [address] [place] [address] Dr. Saray Souza Ketones Ql (U) TRACE Abnormal NEGATIVE [facility] Comment on above: Performed By: #### I NSULIN #### [facility] [address] [place] [address] Dr. Saray Souza LEUKOCYTES SMALL Abnormal NEGATIVE [facility] Comment on above: Performed By: #### I NSULIN #### [facility] [address] [place] [address] Dr. Saray Souza MUCOUS NONE SEEN Normal NONE SEEN [facility] Comment on above: Performed By: #### I NSULIN #### [facility] [address] [place] [address] Dr. Saray Souza Nitrite Ql (U) Negative Normal NEGATIVE [facility] Comment on above: Performed By: #### I NSULIN #### [facility] [address] [place] [address] Dr. Saray Souza pH (U) 5.5 [pH] Normal 5-9 [facility] Comment on above: Performed By: #### I NSULIN #### [facility] [address] [place] [address] [address] Saray Souza RBC 0-2 Normal 0-2 [facility] Comment on above: Performed By: #### I NSULIN #### [facility] [address] [place] [address] Dr. Saray Souza SPEC GRAVITY >=1.030 Abnormal 1.005-<=1.025 [facility] Comment on above: Performed By: #### I NSULIN #### [facility] [address] [place] [address] Dr. Saray Souza UA PROTEIN Negative Normal NEGATIVE/ TRACE [facility] Comment on above: Performed By: #### I NSULIN #### [facility] [address] [place] [address] Dr. Saray Souza Urobilinogen Qn (U) 0.2 {Janine'U}/dL Normal 0.2 - 1. 0 [facility] Comment on above: Performed By: #### I NSULIN #### [facility] [address] [place] [address] Dr. Saray Souza WBC 5-10 Abnormal NONE SEEN [facility] Comment on above: Performed By: #### I NSULIN #### [facility] [address] [place] [address] Dr. Saray Souza INSULINon 02-14-2023 Insulin 12.8 uIU/mL Normal 2.6-24.9 [facility] Comment on above: Performed By: #### C BC #### [facility] [address] [place] [address] Dr. Saray Souza CBC AUTO DIFFon 02-13-2023 BASO # 0.0 103/ul Normal 0.0-0.1 [facility] Comment on above: Performed By: #### C BC #### [facility] [address] [place] [address] Dr. Saray Souza Basophils/100 WBC (Bld) 0.4 % Normal 0.2-2.0 [facility] Comment on above: Performed By: #### C BC #### [facility] [address] [place] [address] Dr. Saray Souza EO # 0.1 103/ul Normal 0.0-0.7 [facility] Comment on above: Performed By: #### C BC #### [facility] [address] [place] [address] Dr. Saray Souza Eosinophils/100 WBC (Bld) 1.6 % Normal 0.9-7.0 [facility] Comment on above: Performed By: #### C BC #### [facility] [address] [place] [address] Dr. Saray Souza Erythrocyte distribution width (RBC) [Ratio] 11.9 % Normal 11.0-15.0 [facility] Comment on above: Performed By: #### C BC #### [facility] [address] [place] [address] Dr. Saray Souza Hematocrit (Bld) [Volume fraction] 41.9 % Normal 36.0-48.0 [facility] Comment on above: Performed By: #### C BC #### [facility] [address] [place] [address] Dr. Saray Souza Hemoglobin (Bld) [Mass/Vol] 13.7 g/dL Normal 12.0-16.0 [facility] Comment on above: Performed By: #### C BC #### [facility] [address] [place] [address] Dr. Saray Souza IG # 0.02 10e3/ul Normal 0.00-0.03 [facility] Comment on above: Performed By: #### C BC #### [facility] [address] [place] [address] Dr. Saray Souza IG % 0.3 % Normal 0.0-0.5 [facility] Comment on above: Performed By: #### C BC #### [facility] [address] [place] [address] Dr. Saray Souza LYMPH # 1.4 103/ul Normal 1.2-3.8 [facility] Comment on above: Performed By: #### C BC #### [facility] [address] [place] [address] [address] Saray Souza Lymphocytes/100 WBC (Bld) 18.6 % Critically low 20.5-60.0 [facility] Comment on above: Performed By: #### C BC #### [facility] [address] [place] [address] Dr. Saray Souza MANUAL DIFF REQ NO Normal [facility] Comment on above: Performed By: #### C BC #### [facility] [address] [place] [address] Dr. Saray Souza MCH (RBC) [Entitic mass] 29.9 pg Normal 26.7-34.0 [facility] Comment on above: Performed By: #### C BC #### [facility] [address] [place] [address] Dr. Saray Souza MCHC (RBC) [Mass/Vol] 32.7 g/dL Normal 29.9-35.2 [facility] Comment on above: Performed By: #### C BC #### [facility] [address] [place] [address] Dr. Saray Souza MCV (RBC) [Entitic vol] 91.5 fL Normal 81.0-99.0 [facility] Comment on above: Performed By: #### C BC #### [facility] [address] [place] [address] Dr. Saray Souza MONO # 0.6 103/ul Normal 0.3-0.8 [facility] Comment on above: Performed By: #### C BC #### [facility] [address] [place] [address] Dr. Saray Souza Monocytes/100 WBC (Bld) 8.3 % Normal 1.7-12.0 [facility] Comment on above: Performed By: #### C BC #### [facility] [address] [place] [address] Dr. Saray Souza NEUT # 5.5 103/ul Normal 1.4-6.5 [facility] Comment on above: Performed By: #### C BC #### [facility] [address] [place] [address] [address] Saray Souza Neutrophils/100 WBC (Bld) 70.8 % Normal 43.0-75.0 [facility] Comment on above: Performed By: #### C BC #### [facility] [address] [place] [address] [address] Saray Souza Platelet mean volume (Bld) [Entitic vol] 9.0 fL Critically low 9.5-13.5 [facility] Comment on above: Performed By: #### C BC #### [facility] [address] [place] [address] [address] Saray Souza PLT 271 103/ul Normal 150-450 [facility] Comment on above: Performed By: #### C BC #### [facility] [address] [place] [address] Dr. Saray Souza RBC 4.58 106/ul Normal 4.20-5.40 [facility] Comment on above: Performed By: #### C BC #### [facility] [address] [place] [address] Dr. Saray Souza WBC 7.7 103/ul Normal 4.0-11.0 [facility] Comment on above: Performed By: #### C BC #### [facility] [address] [place] [address] Dr. Saray Souza FREE THYROXINE INDEX T7on FTI 2.56 Normal 1.30-4.50 [facility] Comment on above: Performed By: #### I NSULIN #### [facility] [address] [place] [address] Dr. Saray Souza T3U 36.0 % Normal 30.0-39.0 [facility] Comment on above: Performed By: #### I NSULIN #### [facility] [address] [place] [address] Dr. Saray Souza T4 [Mass/Vol] 7.10 ug/dL Normal 4.80-13.90 [facility] Comment on above: Performed By: #### I NSULIN #### [facility] [address] [place] [address] Dr. Saray Souza IRONon 02-13-2023 Iron [Mass/Vol] 130.0 ug/dL Normal 50.0-170.0 [facility] Comment on above: Performed By: #### C EDGARDO #### [facility] [address] [place] [address] [address] Saray Souza PROF 14(COMP METB)on 023 Albumin [Mass/Vol] 3.8 g/dL Normal 3.4-5.0 [facility] Comment on above: Performed By: #### I NSULIN #### [facility] [address] [place] [address] [address] Saray Souza Albumin/Globulin [Mass ratio] 1.2 {ratio} Normal [facility] Comment on above: Performed By: #### I NSULIN #### [facility] [address] [place] [address] Dr. Saray Souza ALP [Catalytic activity/Vol] 82 U/L Normal 46-116 [facility] Comment on above: Performed By: #### I NSULIN #### [facility] [address] [place] [address] [address] Saray Souza ALT [Catalytic activity/Vol] 25 U/L Normal 14-59 [facility] Comment on above: Performed By: #### I NSULIN #### [facility] [address] [place] [address] [address] Saray Souza Anion gap [Moles/Vol] 12.7 mmol/L Normal [facility] Comment on above: Performed By: #### I NSULIN #### [facility] [address] [place] [address] [address] Saray Souza AST [Catalytic activity/Vol] 19 U/L Normal 15-37 [facility] Comment on above: Performed By: #### I NSULIN #### [facility] [address] [place] [address] [address] Saray Souza Bilirubin [Mass/Vol] 0.3 mg/dL Normal 0.2-1.0 [facility] Comment on above: Performed By: #### I NSULIN #### [facility] [address] [place] [address] [address] Saray Souza Calcium [Mass/Vol] 8.8 mg/dL Normal 8.5-10.1 [facility] Comment on above: Performed By: #### I NSULIN #### [facility] [address] [place] [address] [address] Saray Souza Chloride [Moles/Vol] 101 mmol/L Normal 98-107 [facility] Comment on above: Performed By: #### I NSULIN #### [facility] [address] [place] [address] [address] Saray Souza CO2 [Moles/Vol] 27.3 mmol/L Normal 21.0-32.0 [facility] Comment on above: Performed By: #### I NSULIN #### [facility] [address] [place] [address] Dr. Saray Souza Creatinine [Mass/Vol] 0.69 mg/dL Normal 0.55-1.02 [facility] Comment on above: Performed By: #### I NSULIN #### [facility] [address] [place] [address] [address] Saray Souza EGFR-AF SALVADOREAN >60 Normal >=60 [facility] Comment on above: Performed By: #### I NSULIN #### [facility] [address] [place] [address] Dr. Saray Souza EGFR-NON AF SALVADOREAN >60 Normal >=60 [facility] Comment on above: Performed By: #### I NSULIN #### [facility] [address] [place] [address] [address] Saray Souza Globulin (S) [Mass/Vol] 3.3 g/dL Normal [facility] Comment on above: Performed By: #### I NSULIN #### [facility] [address] [place] [address] Dr. Saray Souza Glucose [Mass/Vol] 83 mg/dL Normal 74-106 [facility] Comment on above: Performed By: #### I NSULIN #### [facility] [address] [place] [address] Dr. Saray Souza Potassium [Moles/Vol] 4.0 mmol/L Normal 3.5-5.1 [facility] Comment on above: Performed By: #### I NSULIN #### [facility] [address] [place] [address] Dr. Saray Souza Protein [Mass/Vol] 7.1 g/dL Normal 6.4-8.2 [facility] Comment on above: Performed By: #### I NSULIN #### [facility] [address] [place] [address] [address] Saray Souza Sodium [Moles/Vol] 137 mmol/L Normal 136-145 [facility] Comment on above: Performed By: #### I CURLYULIN #### [facility] [address] [place] [address] Dr. Saray Souza Urea nitrogen [Mass/Vol] 10.0 mg/dL Normal 7.0-18.0 [facility] Comment on above: Performed By: #### I NSULIN #### [facility] [address] [place] [address] Dr. Saray Souza Urea nitrogen/Creatinine [Mass ratio] 14.5 mg/mg Normal [facility] Comment on above: Performed By: #### I NSULIN #### [facility] [address] [place] [address] Dr. Saray Souza TSHon 02-13-2023 TSH 2.745 uIU/mL Normal 0.358-3.740 [facility] Comment on above: Performed By: #### I NSULIN #### [facility] [address] [place] [address] Dr. Saray Souza AMYLASEon 02-04-2023 Amylase [Catalytic activity/Vol] 45 U/L Normal 25-115 [facility] Comment on above: Performed By: #### T SH, CMP, HSTROPN, LIPA, KELLE #### [facility] [address] [place] [address] Dr. Saray Souza CBC AUTO DIFFon 02-04-2023 BASO # 0.0 103/ul Normal 0.0-0.1 [facility] Comment on above: Performed By: #### C BC #### [facility] [address] [place] [address] Dr. Saray Souza Basophils/100 WBC (Bld) 0.4 % Normal 0.2-2.0 [facility] Comment on above: Performed By: #### C BC #### [facility] [address] [place] [address] Dr. Saray Souza EO # 0.1 103/ul Normal 0.0-0.7 [facility] Comment on above: Performed By: #### C BC #### [facility] [address] [place] [address] Dr. Saray Souza Eosinophils/100 WBC (Bld) 1.7 % Normal 0.9-7.0 [facility] Comment on above: Performed By: #### C BC #### [facility] [address] [place] [address] Dr. Saray Souza Erythrocyte distribution width (RBC) [Ratio] 12.0 % Normal 11.0-15.0 [facility] Comment on above: Performed By: #### C BC #### [facility] [address] [place] [address] Dr. Saray Souza Hematocrit (Bld) [Volume fraction] 42.3 % Normal 36.0-48.0 [facility] Comment on above: Performed By: #### C BC #### [facility] [address] [place] [address] Dr. Saray Souza Hemoglobin (Bld) [Mass/Vol] 13.9 g/dL Normal 12.0-16.0 [facility] Comment on above: Performed By: #### C BC #### [facility] [address] [place] [address] Dr. Saray Souza IG # 0.03 10e3/ul Normal 0.00-0.03 [facility] Comment on above: Performed By: #### C BC #### [facility] [address] [place] [address] Dr. Saray Souza IG % 0.4 % Normal 0.0-0.5 [facility] Comment on above: Performed By: #### C BC #### [facility] [address] [place] [address] [address] Saray Souza LYMPH # 1.5 103/ul Normal 1.2-3.8 [facility] Comment on above: Performed By: #### C BC #### [facility] [address] [place] [address] [address] Saray Souza Lymphocytes/100 WBC (Bld) 20.4 % Critically low 20.5-60.0 [facility] Comment on above: Performed By: #### C BC #### [facility] [address] [place] [address] Dr. Saray Souza MANUAL DIFF REQ NO Normal [facility] Comment on above: Performed By: #### C BC #### [facility] [address] [place] [address] Dr. Saray Souza MCH (RBC) [Entitic mass] 30.0 pg Normal 26.7-34.0 [facility] Comment on above: Performed By: #### C BC #### [facility] [address] [place] [address] Dr. Saray Souza MCHC (RBC) [Mass/Vol] 32.9 g/dL Normal 29.9-35.2 [facility] Comment on above: Performed By: #### C BC #### [facility] [address] [place] [address] Dr. Saray Souza MCV (RBC) [Entitic vol] 91.2 fL Normal 81.0-99.0 [facility] Comment on above: Performed By: #### C BC #### [facility] [address] [place] [address] Dr. Saray Souza MONO # 0.6 103/ul Normal 0.3-0.8 [facility] Comment on above: Performed By: #### C BC #### [facility] [address] [place] [address] Dr. Saray Souza Monocytes/100 WBC (Bld) 7.7 % Normal 1.7-12.0 [facility] Comment on above: Performed By: #### C BC #### [facility] [address] [place] [address] Dr. Saray Souza NEUT # 5.2 103/ul Normal 1.4-6.5 [facility] Comment on above: Performed By: #### C BC #### [facility] [address] [place] [address] Dr. Saray Souza Neutrophils/100 WBC (Bld) 69.4 % Normal 43.0-75.0 [facility] Comment on above: Performed By: #### C BC #### [facility] [address] [place] [address] Dr. Saray Souza Platelet mean volume (Bld) [Entitic vol] 9.0 fL Critically low 9.5-13.5 [facility] Comment on above: Performed By: #### C BC #### [facility] [address] [place] [address] Dr. Saray Souza PLT 292 103/ul Normal 150-450 [facility] Comment on above: Performed By: #### C BC #### [facility] [address] [place] [address] Dr. Saray Souza RBC 4.64 106/ul Normal 4.20-5.40 [facility] Comment on above: Performed By: #### C BC #### [facility] [address] [place] [address] Dr. Saray Souza WBC 7.5 103/ul Normal 4.0-11.0 [facility] Comment on above: Performed By: #### C BC #### [facility] [address] [place] [address] Dr. Saray Souza CULTURE URINEon 02-04-2023 CULTURE URINE Culture Observations : LIGHT GROWTH OF MIXED GENITAL CARMELO. NO POTENTIAL PATHOGENS SEEN. Normal [facility] Comment on above: Performed By: #### C BC #### [facility] [address] [place] [address] Dr. Saray Souza ER URINE PROFILEon 3 Bilirubin Ql (U) Negative Normal NEGATIVE [facility] Comment on above: Performed By: #### C BC #### [facility] [address] [place] [address] Dr. Saray Souza Clarity (U) CLEAR Normal CLEAR [facility] Comment on above: Performed By: #### C BC #### [facility] [address] [place] [address] [address] Saray Souza Color (U) LT. YELLOW Normal YELLOW [facility] Comment on above: Performed By: #### C BC #### [facility] [address] [place] [address] Dr. Saray JHA A micrscopic examination will be performed if indicated. Normal [facility] Comment on above: Performed By: #### C BC #### [facility] [address] [place] [address] Dr. Saray Souza Glucose Ql (U) Negative Normal NEGATIVE [facility] Comment on above: Performed By: #### C BC #### [facility] [address] [place] [address] Dr. Saray Souza Hemoglobin Ql (U) Negative Normal NEGATIVE [facility] Comment on above: Performed By: #### C BC #### [facility] [address] [place] [address] Dr. Saray Souza Ketones Ql (U) Negative Normal NEGATIVE [facility] Comment on above: Performed By: #### C BC #### [facility] [address] [place] [address] Dr. Saray Souza LEUKOCYTES MODERATE Abnormal NEGATIVE [facility] Comment on above: Performed By: #### C BC #### [facility] [address] [place] [address] Dr. Saray Souza Nitrite Ql (U) Negative Normal NEGATIVE [facility] Comment on above: Performed By: #### C BC #### [facility] [address] [place] [address] Dr. Saray Souza pH (U) 5.5 [pH] Normal 5-9 [facility] Comment on above: Performed By: #### C BC #### [facility] [address] [place] [address] Dr. Saray Souza SPEC GRAVITY >=1.030 Abnormal 1.005-<=1.025 [facility] Comment on above: Performed By: #### C BC #### [facility] [address] [place] [address] Dr. Saray Souza UA PROTEIN Negative Normal NEGATIVE/ TRACE [facility] Comment on above: Performed By: #### C BC #### [facility] [address] [place] [address] Dr. Saray Souza UR MICRO IND INDICATED Normal [facility] Comment on above: Performed By: #### C BC #### [facility] [address] [place] [address] Dr. Saray Souza Urobilinogen Qn (U) 0.2 {Janine'U}/dL Normal 0.2 - 1. 0 [facility] Comment on above: Performed By: #### C BC #### [facility] [address] [place] [address] Dr. Saray Souza LIPASEon 02-04-2023 Lipase [Catalytic activity/Vol] 97.0 U/L Normal 73.0-393.0 [facility] Comment on above: Performed By: #### T SH, CMP, HSTROPN, LIPA, KELLE #### [facility] [address] [place] [address] Dr. Saray Souza URon 02-04-2023 , QUAL Negative Normal NEGATIVE [facility] Comment on above: Performed By: #### C BC #### [facility] [address] [place] [address] Dr. Saray Souza PROF 14(COMP METB)on 023 Albumin [Mass/Vol] 3.5 g/dL Normal 3.4-5.0 [facility] Comment on above: Performed By: #### T SH, CMP, HSTROPN, LIPA, KELLE #### [facility] [address] [place] [address] Dr. Saray Souza Albumin/Globulin [Mass ratio] 1.2 {ratio} Normal [facility] Comment on above: Performed By: #### T SH, CMP, HSTROPN, LIPA, KELLE #### [facility] [address] [place] [address] Dr. Saray Souza ALP [Catalytic activity/Vol] 78 U/L Normal 46-116 [facility] Comment on above: Performed By: #### T SH, CMP, HSTROPN, LIPA, KELLE #### [facility] [address] [place] [address] Dr. Saray Souza ALT [Catalytic activity/Vol] 24 U/L Normal 14-59 [facility] Comment on above: Performed By: #### T SH, CMP, HSTROPN, LIPA, KELLE #### [facility] [address] [place] [address] Dr. Saray Souza Anion gap [Moles/Vol] 7.9 mmol/L Normal [facility] Comment on above: Performed By: #### T SH, CMP, HSTROPN, LIPA, KELLE #### [facility] [address] [place] [address] Dr. Saray Souza AST [Catalytic activity/Vol] 16 U/L Normal 15-37 [facility] Comment on above: Performed By: #### T SH, CMP, HSTROPN, LIPA, KELLE #### [facility] [address] [place] [address] Dr. Saray Souza Bilirubin [Mass/Vol] 0.3 mg/dL Normal 0.2-1.0 [facility] Comment on above: Performed By: #### T SH, CMP, HSTROPN, LIPA, KELLE #### [facility] [address] [place] [address] Dr. Saray Souza Calcium [Mass/Vol] 8.6 mg/dL Normal 8.5-10.1 [facility] Comment on above: Performed By: #### T SH, CMP, HSTROPN, LIPA, KELLE #### [facility] [address] [place] [address] Dr. Saray Souza Chloride [Moles/Vol] 105 mmol/L Normal 98-107 [facility] Comment on above: Performed By: #### T SH, CMP, HSTROPN, LIPA, KELLE #### [facility] [address] [address] [address] Saray oSuza CO2 [Moles/Vol] 28.9 mmol/L Normal 21.0-32.0 [facility] Comment on above: Performed By: #### T SH, CMP, HSTROPN, LIPA, KELLE #### [facility] [address] [place] [address] Dr. Saray Souza Creatinine [Mass/Vol] 0.67 mg/dL Normal 0.55-1.02 [facility] Comment on above: Performed By: #### T SH, CMP, HSTROPN, LIPA, KELLE #### [facility] [address] [place] [address] Dr. Saray Souza EGFR-AF SALVADOREAN >60 Normal >=60 [facility] Comment on above: Performed By: #### T SH, CMP, HSTROPN, LIPA, KELLE #### [facility] [address] [place] [address] Dr. Saray Souza EGFR-NON AF SALVADOREAN >60 Normal >=60 [facility] Comment on above: Performed By: #### T SH, CMP, HSTROPN, LIPA, KELLE #### [facility] [address] [place] [address] Dr. Saray Souza Globulin (S) [Mass/Vol] 3.0 g/dL Normal [facility] Comment on above: Performed By: #### T SH, CMP, HSTROPN, LIPA, KELLE #### [facility] [address] [place] [address] Dr. Saray Souza Glucose [Mass/Vol] 97 mg/dL Normal 74-106 [facility] Comment on above: Performed By: #### T SH, CMP, HSTROPN, LIPA, KELLE #### [facility] [address] [place] [address] Dr. Saray Souza Potassium [Moles/Vol] 3.8 mmol/L Normal 3.5-5.1 [facility] Comment on above: Performed By: #### T SH, CMP, HSTROPN, LIPA, KELLE #### [facility] [address] [address] [address] Saray Souza Protein [Mass/Vol] 6.5 g/dL Normal 6.4-8.2 [facility] Comment on above: Performed By: #### T SH, CMP, HSTROPN, LIPA, KELLE #### [facility] [address] [place] [address] Dr. Saray Souza Sodium [Moles/Vol] 138 mmol/L Normal 136-145 [facility] Comment on above: Performed By: #### T SH, CMP, HSTROPN, LIPA, KELLE #### [facility] [address] [place] [address] Dr. Saray Souza Urea nitrogen [Mass/Vol] 13.0 mg/dL Normal 7.0-18.0 [facility] Comment on above: Performed By: #### T SH, CMP, HSTROPN, LIPA, KELLE #### [facility] [address] [place] [address] Dr. Saray Souza Urea nitrogen/Creatinine [Mass ratio] 19.4 mg/mg Normal [facility] Comment on above: Performed By: #### T SH, CMP, HSTROPN, LIPA, KELLE #### [facility] [address] [place] [address] Dr. Saray Souza TROPONIN, HIGH SENSITIVITYon 02-04-2023 HSTROP 4.0 pg/mL Normal 4.0-51.3 [facility] Comment on above: Result Comment: CUT- OFF POINTS HAVE BEEN ESTABLISHED BASED ON THE FOURTH UNIVERSAL DEFINITIONS OF MYOCARDIAL INFARCTION. THE UPPER REFERENCE LIMIT (URL) OF TROPONIN, DEFINED THE 99TH PERCENTILE OF cTnI DISTRIBUTION IN A REFERENCE POPULATION, HAS BEEN CONFIRMED THE DECISION THRESHOLD FOR SC DIAGNOSIS. Performed By: #### T SH, CMP, HSTROPN, LIPA, KELLE #### [facility] [address] [place] [address] Dr. Saray Souza TSHon 02-04-2023 TSH 2.478 uIU/mL Normal 0.358-3.740 [facility] Comment on above: Performed By: #### T SH, CMP, HSTROPN, LIPA, KELLE #### [facility] [address] [place] [address] Dr. Saray Souza URINE MICROSCOPIC ONLYon BACTERIA MODERATE Abnormal NONE SEEN [facility] Comment on above: Performed By: #### C BC #### [facility] [address] [place] [address] Dr. Saray Souza Bacteria identified Cx Nom (U) INDICATED Normal [facility] Comment on above: Performed By: #### C BC #### [facility] [address] [place] [address] Dr. Saray Souza CAST NONE SEEN Normal NONE SEEN [facility] Comment on above: Performed By: #### C BC #### [facility] [address] [place] [address] Dr. Saray Souza Crystals LM Nom (Urine sed) NONE SEEN Normal NONE SEEN [facility] Comment on above: Performed By: #### C BC #### [facility] [address] [place] [address] Dr. Saray Souza Epithelial cells LM Ql (Urine sed) MODERATE Abnormal NONE SEEN /RARE [facility] Comment on above: Performed By: #### C BC #### [facility] [address] [place] [address] Dr. Saray Souza MUCOUS NONE SEEN Normal NONE SEEN [facility] Comment on above: Performed By: #### C BC #### [facility] [address] [place] [address] Dr. Saray Souza RBC 5-10 Abnormal 0-2 [facility] Comment on above: Performed By: #### C BC #### [facility] [address] [place] [address] Dr. Saray Souza WBC 10-20 Abnormal NONE SEEN [facility] Comment on above: Performed By: #### C BC #### [facility] [address] [place] [address] Dr. Saray Souza Covid-19 PCR (CVDTB)on 09-24 SARS-CoV-2 (COVID-19) RNA DAYDAY+probe Ql (Unsp spec) Not detected Normal NOT DETECTED [facility] Comment on above: Result Comment: When [...] for this test is supported by the [place] of Health and Human Service's declaration that [...] used). Performed By: #### C BC #### [facility] [address] [place] [address] Dr. Saray Souza INFLUENZA A AND B [facility] 10-20 [facility] SEE BELOW Normal [facility] Comment on above: Result Comment: Nega tive for Flu A protein angiten. Infection due to Flu A cannot be ruled out. Flu A angiten in the sample may be below the detection limit of the test. Performed By: #### C BC #### [facility] [address] [place] [address] Dr. Saray Sou[facility] SEE BELOW Normal [facility] Comment on above: Result Comment: Nega tive for Flu B protein antigen. Infection due to Flu B cannot be ruled out. Flu B antigen in the sample may be below the detection limit of the test. Performed By: #### C BC #### [facility] [address] [place] [address] Dr. Saray Souza INFLUENZA A AG Negative Normal NEGATIVE SEE COMMENT [facility] Comment on above: Performed By: #### C BC #### [facility] [address] [place] [address] Dr. Saray Souza INFLUENZA B AG Negative Normal NEGATIVE SEE COMMENT [facility] Comment on above: Performed By: #### C BC #### [facility] [address] [address] [address] Saray Souza INTERNAL CONTROLS Within Normal Limits Normal Wi thin Normal Limits [facility] Comment on above: Performed By: #### C BC #### [facility] [address] [address] [address] Saray Souza STREPT SCREENon 10-20-2022 STREP SCREEN A Positive Abnormal NEGATIVE [facility] Comment on above: Performed By: #### C BC #### [facility] [address] [id number] [address] Saray Souza XR SHOULDER RT INJon [...] ADRIANA MENDEZ Date: 2022-07-18 17:05 Normal [facility] MRI SHOULDER RT WO CONon MRI [...] 10:10 Normal [facility] XR ARTHRO SHLD RTon 07-10-20 22 XR ARTHRO [facility] RT EXAMINATION: XR ARTHRO SHLD RT HISTORY: [...] by: ADRIANA MENDEZ Date: 2022-07-10 10:01 Normal [facility] No Panel Informationon 03-18 Right Eye Reliability was good. Findings include normal observations. Left Eye Reliability was good. Findings include normal observations. Notes I personally reviewed the visual zaldivar performed by this patient on 03/18/22. The visual zaldivar are normal OU with good fixation. Francisco Ayers MD [facility] Radiology Study observation (narrative) [facility] Progress Noteson 03-18-2022 [employer] Operator Authentication Interface Message Text Referred by [...] Hair) regarding headaches-- will fax information to [phone] - Offered referral to neurology, patient prefers [...] her PCP. Francisco Ayers MD Normal [facility] Vital Signs Date Time Vital Sign Value Performing Clinician Facility 01-04-2025 16:08-0500 Body mass index (BMI) [Ratio] 45.77 kg/m2 Kelle Fairhaven PA Work Phone: [facility] 01-04-2025 16:08-0500 Body weight 144.7 kg Kelle Melany PA Work Phone: [facility] 01-04-2025 16:08-0500 Diastolic blood pressure 78 mm[Hg] Kelle Fairhaven PA Work Phone: [facility] 01-04-2025 16:08-0500 Systolic blood pressure 120 mm[Hg] Kelle Melany PA Work Phone: [facility] 12-27-2024 09:53-0500 Body mass index (BMI) [Ratio] 45.69 kg/m2 Kelle Fairhaven PA Work Phone: [facility] 12-27-2024 09:53-0500 Body weight 144.43 kg Kelle Melany PA Work Phone: [facility] 12-27-2024 09:53-0500 Diastolic blood pressure 78 mm[Hg] Kelle Melany PA Work Phone: [facility] 12-27-2024 09:53-0500 Systolic blood pressure 130 mm[Hg] Kelle Melany PA Work Phone: [facility] 12-05-2024 15:49-0500 Body mass index (BMI) [Ratio] 45.92 kg/m2 Graham Dante DO Work Phone: [facility] 12-05-2024 15:49-0500 Body weight 145.15 kg Graham Dante DO Work Phone: [facility] 12-05-2024 15:49-0500 Diastolic blood pressure 70 mm[Hg] Graham Dante DO Work Phone: [facility] 12-05-2024 15:49-0500 Systolic blood pressure 120 mm[Hg] Graham Dante DO Work Phone: [facility] 12-02-2024 19:42-0500 Diastolic blood pressure 80 mm[Hg] Nic Estevez MD Work Phone: [facility] 12-02-2024 19:42-0500 Systolic blood pressure 122 mm[Hg] Nic Estevez MD Work Phone: [facility] 12-02-2024 19:40-0500 Body temperature 99.39 [degF] Nic Estevez MD Work Phone: [facility] 12-02-2024 19:38-0500 Heart rate 105 /min Nic Estevez MD Work Phone: [facility] 12-02-2024 19:38-0500 Respiratory rate 18 /min Nic Estevez MD Work Phone: [facility] 12-02-2024 19:38-0500 SaO2% (BldA) [Mass fraction] 99 % Nic Estevez MD Work Phone: [facility] 11-03-2024 13:25-0500 Body mass index (BMI) [Ratio] 46.4 kg/m2 [facility] Nurse [facility] 11-03-2024 13:25-0500 Body weight 146.69 kg [facility] Nurse [facility] 08-29-2024 10:53-0400 Body mass index (BMI) [Ratio] 45.89 kg/m2 Kelle BAE Work Phone: [facility] 08-29-2024 10:53-0400 Body weight 145.06 kg Kelle BAE Work Phone: [facility] 08-29-2024 10:53-0400 Diastolic blood pressure 70 mm[Hg] Kelle BAE Work Phone: [facility] 08-29-2024 10:53-0400 Systolic blood pressure 120 mm[Hg] Kelle BAE Work Phone: [facility] 07-26-2024 08:36-0400 Body height 177.8 cm Kelle BAE Work Phone: [facility] 07-26-2024 08:36-0400 Body mass index (BMI) [Ratio] 46.06 kg/m2 Kelle BAE Work Phone: [facility] 07-26-2024 08:36-0400 Body weight 145.6 kg Kelle Mosley PA Work Phone: [facility] 07-26-2024 08:36-0400 Diastolic blood pressure 84 mm[Hg] Kelle Fairhaven PA Work Phone: [facility] 07-26-2024 08:36-0400 Systolic blood pressure 130 mm[Hg] Kelle Mosley PA Work Phone: [facility] 2024 09:04-0400 Blood Pressure Location JANNETH SMITH [facility] 2024 09:04-0400 Diastolic blood pressure 82 mm[Hg] JANNETH LUIS [facility] 2024 09:04-0400 Heart rate 74 /min JANNETH LUIS [facility] 2024 09:04-0400 Respiratory rate 16 /min JANNETH LUIS [facility] 2024 09:04-0400 Systolic blood pressure 125 mm[Hg] JANNETH LUIS [facility] 03-08-2024 14:09-0400 Blood Pressure Location Yonis MIRANDA [facility] 03-08-2024 14:09-0400 Diastolic blood pressure 84 mm[Hg] Yonis MIRANDA [facility] 03-08-2024 14:09-0400 Heart rate 76 /min Yonis MIRANDA [facility] 03-08-2024 14:09-0400 Respiratory rate 16 /min Yonis FORDL [facility] 03-08-2024 14:09-0400 Systolic blood pressure 118 mm[Hg] Yonis FORDL [facility] 01-19-2024 09:34-0500 Blood Pressure Location JANNETH SMITH [facility] 01-19-2024 09:34-0500 Diastolic blood pressure 84 mm[Hg] JANNETH SMITH [facility] 01-19-2024 09:34-0500 Heart rate 80 /min JANNETH LUIS [facility] 01-19-2024 09:34-0500 Respiratory rate 16 /min JANNETH SMITH [facility] 01-19-2024 09:34-0500 Systolic blood pressure 132 mm[Hg] JANNETH LUIS [facility] 12-02-2023 08:40-0500 Body height 180.34 cm Taniya Mary Grace Other [employer] Other 12-02-2023 08:40-0500 Body mass index (BMI) [Ratio] 45.1 kg/m2 Taniya Mary Grace Other [employer] Other 12-02-2023 08:40-0500 Body temperature 97.5 [degF] Taniya Mary Grace Other [employer] Other 12-02-2023 08:40-0500 Body weight 146.69 kg Taniya Mary Grace Other [employer] Other 12-02-2023 08:40-0500 Diastolic blood pressure 83 mm[Hg] Taniya Mary Grace Other [employer] Other 12-02-2023 08:40-0500 Respiratory rate 18 /min Taniya Mary Grace Other [employer] Other 12-02-2023 08:40-0500 SaO2% (BldA) [Mass fraction] 98 % Taniya Mary Grace Other [employer] Other 12-02-2023 08:40-0500 Systolic blood pressure 136 mm[Hg] Taniya Mary Grace Other [employer] Other 11-19-2021 15:30-0500 Body height 180.34 cm Nandini Pantoja Other [employer] Other 11-19-2021 15:30-0500 Body mass index (BMI) [Ratio] 41.56 kg/m2 Nandini Pantoja Other [employer] Other 11-19-2021 15:30-0500 Body weight 135.17 kg Nandini Scarlett Other [employer] Other 11-19-2021 15:30-0500 Diastolic blood pressure 76 mm[Hg] Nandini Pantoja Other [employer] Other 11-19-2021 15:30-0500 Systolic blood pressure 128 mm[Hg] Nandini Scarlett Other [employer] Other Encounters Encounter Date Encounter Type Care Provider Facility Start: 01-23-2025 End: 01-23-2025 ambulatory KELLE MOSLEY Not Available Start: 01-04-2025 End: 01-04-2025 Office outpatient visit 15 minutes Kelle BAE Work Phone: [facility] Comment on above: Second trimester pre gnancy; 18 weeks gestation of ; Headache in , antepartum Start: 01-04-2025 End: 01-04-2025 ambulatory KELLE MOSLEY Not Available Start: 01-04-2025 End: 01-04-2025 Bamboo flowsheet Kelle BAE Work Phone: [facility] Start: 01-04-2025 End: 01-04-2025 Bamboo flowsheet Kelle BAE Work Phone: [facility] Start: 12-27-2024 End: 12-27-2024 Bamboo flowsheet Kelle BAE Work Phone: [facility] Start: 12-27-2024 End: 01-01-2025 Bamboo flowsheet Kelle BAE Work Phone: [facility] Start: 12-27-2024 End: 01-01-2025 Clinisync Result Encounter Kelle BAE Work Phone: [facility] External Department Unsolicited Start: 12-27-2024 End: 12-27-2024 Patient encounter procedure Kelle BAE Work Phone: [facility] Healthcare Start: 12-27-2024 End: 12-27-2024 Periodic preventive med est patient 18-39 yrs Kelle BAE Work Phone: [facility] Comment on above: 17 weeks gestation o f ; Second trimester ; Screening, , for anatomic survey; Exposure to STD; Vaginal discharge; Well woman exam with routine gynecological exam; Sinus congestion Start: 12-27-2024 End: 12-27-2024 ambulatory KELLE MOSLEY Not Available Start: 12-23-2024 End: 12-23-2024 Clinisync Result Encounter Graham Howell DO Work Phone: [facility] External Department Unsolicited Start: 12-23-2024 End: 12-23-2024 Clinisync Result Encounter Graham Dante DO Work Phone: [facility] External Department Unsolicited Start: 12-05-2024 End: 12-05-2024 Office outpatient visit 15 minutes Graham Dante DO Work Phone: [facility] Comment [...] patient visit Nic Estevez MD Work Phone: [facility] Comment on above: Abdominal cramping, bilateral lower quadrant (Primary Dx) Start: 11-25-2024 End: 11-25-2024 ambulatory JANNETH Mary Lou MADRIGALRY Facility:[facility] Start: 11-25-2024 End: 11-25-2024 Patient encounter procedure JANNETH MADRIGALRY [facility] Start: 11-03-2024 End: 11-03-2024 Office outpatient visit 5 minutes [facility] Dante Nurse [facility] Comment on above: GA: 9w3d Start: 11-03-2024 End: 11-03-2024 ambulatory KELLE LOPEZEY Not Available Start: 10-27-2024 End: 10-27-2024 ambulatory JANNETH Mary Lou LUIS Facility:[facility] Start: 10-27-2024 End: 10-27-2024 Patient encounter procedure JANNETH Mary Lou MADRIGALRY [facility] Start: 09-28-2024 End: 09-28-2024 Clinisync Result Encounter [...] Start: 07-26-2024 End: 07-26-2024 Bamboo flowsheet Kelle Fairhaven PA Work Phone: [facility] Start: [...] Start: 2024 End: 2024 ambulatory Yonis MIRANDA Facility:[facility] Start: 2024 End: 2024 Patient encounter procedure [facility] Start: 04-27-2024 End: 04-27-2024 ambulatory MD Melodie Ashton Work Phone: [facility] Work Phone: Start: 04-27-2024 End: 04-27-2024 Departed Referred MD Melodie Ashton Work Phone: [facility] Start: 04-27-2024 End: 04-27-2024 ambulatory Yonis R NILL Facility:[id number] Start: 03-08-2024 End: 03-08-2024 ambulatory Yonis R NILL Facility: [facility] Start: 03-08-2024 End: 03-08-2024 Patient encounter procedure Yonis R NILL General Surgery [facility] Start: 02-09-2024 End: 02-09-2024 ambulatory Dieter REMY [facility] Start: 02-09-2024 End: 02-09-2024 Patient encounter procedure Dieter REMY [facility] Start: 01-19-2024 End: 01-19-2024 ambulatory JANNETH SMITH [facility] Start: 01-19-2024 End: 01-19-2024 Lab Drop off JANNETH SMITH [facility] Start: 01-19-2024 End: 01-19-2024 ambulatory JANNETH SMITH Facility:[facility] Start: 01-19-2024 End: 01-19-2024 Patient encounter procedure JANNETH SMITH [facility] Start: 12-31-2023 ambulatory Yonis NILL Facility:[facility] Start: 12-17-2023 End: 12-17-2023 ambulatory Taniya Mary Grace Other [employer] Other Start: 12-17-2023 Office outpatient vi sit 15 minutes Taniya Mary Grace [facility] Start: 12-07-2023 End: 12-07-2023 ambulatory Taniya Mary Grace Other [employer] Other Start: 12-07-2023 Telephone encounter Taniya Mary Grace [facility] Start: 12-02-2023 End: 12-02-2023 ambulatory Taniya Mary Grace Other [employer] Other Start: 12-02-2023 Office outpatient ne w 30 minutes Taniya Mary Grace [facility] Start: 04-17-2023 End: 04-17-2023 ambulatory SALMA MONET . Facility:[facility] Start: 04-06-2023 End: 04-07-[address] MELODIE ASHTON . Facility:[facility] Start: 04-04-2023 Encounter for genera l adult medical examination without abnormal findings DR MELODIE ASHTON . [facility] Start: 04-03-2023 End: 04-04-[address] [...] Start: 03-18-2022 End: 03-18-2022 ambulatory UNKNOWN PROVIDER Facility:[facility] Start: 11-19-2021 End: 11-19-2021 ambulatory Nandini Pantoja Other [employer] Other Start: 11-19-2021 Office outpatient ne w 30 minutes Nandini Pantoja [facility] Procedures Date Procedure Procedure Detail Performing Clinician Start: 01-04-2025 Urnls dip stick/tabl et rgnt non-auto w/o micrscp Kelle BAE Work Phone: Start: 12-27-2024 Urnls dip stick/tabl et rgnt non-auto w/o micrscp Kelle BAE Work Phone: Start: 12-27-2024 IGP,APTIMA HPV,AGE GDLN Kelle BAE Work Phone: Start: 12-23-2024 BOX TEST Graham [...] stick/tabl et rgnt auto w/o microscopy Nic Estveez MD Work Phone: Start: 12-02-2024 Basic metabolic pane l calcium total Nic Estevez MD Work Phone: Start: 12-02-2024 Hepatic function panel Nic Estevez MD Work Phone: Start: 11-03-2024 End: 11-03-2024 Urnls dip stick/tablet rgnt non-auto w/o micrscp Graham Dante DO Work Phone: Start: 09-28-2024 ALL CBC WITH AUTO DIFF Graham Dante DO Work Phone: Start: 04-29-2024 Colonoscopy JANNETH MCKEON Start: 02-09-2024 Cystoscopy JANNETHKARLIE MCKEON Start: 07-09-2023 Microscopic observat ion [Identifier] [...] ant neoplasm of cervix [facility] Start: 02-06-2025 End: 02-06-2025 Patient encounter procedure 02/06/2025 3:10 PM EDT Routine [facility] [address] [place] [address] Graham Howell, [address] [address] [facility] Start: 01-23-2025 End: 01-23-2025 Professional / ancillary services management 01/23/2025 11:00 AM EST Ancillary Procedure [facility] [address] [place] [address] [facility] Start: 01-04-2025 End: 01-04-2025 Patient encounter procedure [facility] Comment on above: Arrived Start: 12-27-2024 End: 01-24-2025 Alpha fetoprotein, maternal Alpha fetoprotein, maternal Lab Routine 17 weeks gestation of Second trimester Expected: 12/27/2024 (Approximate), Expires: 01/24/2025 [facility] Work Phone: Comment on above: Expected: 12/27/2024 (Approximate), Expires: 01/24/2025 Start: 12-27-2024 End: 12-27-2025 US for US OB 14+ weeks anatomy scan Imaging Routine Screening, , for anatomic survey Expected: 12/27/2024, Expires: 12/27/2025 [facility] Comment on above: Expected: 12/27/2024 , Expires: 12/27/2025 Start: 12-27-2024 End: 12-27-2024 Patient encounter procedure 12/27/2024 9:30 AM EST Routine [facility] [address] [place] [id number] Kelle Mosley, PA [address] [place] [address] Arrived [facility] Comment on above: Arrived Start: 12-05-2024 End: 12-05-2024 Patient encounter procedure [facility] Comment on above: Arrived Start: 11-28-2024 End: 11-28-2024 Patient encounter procedure 11/28/2024 9:30 AM EST Office Visit [facility] [address] [place] [id number] Kelle Mosley, PA [address] [place] [address] [facility] Start: 11-03-2024 End: 11-03-2025 ABO/Rh ABO/Rh Lab Routine Missed menses , unspecified gestational age Expected: 11/03/2024 (Approximate), Expires: 11/03/2025 [facility] Comment on above: Expected: 11/03/2024 (Approximate), Expires: 11/03/2025 Start: 11-03-2024 End: 11-03-2025 Blood type and Indirect antibody screen panel - Blood Type and screen Lab Routine Missed menses , unspecified gestational age Expected: 11/03/2024 (Approximate), Expires: 11/03/2025 [facility] Work Phone: Comment on above: Expected: 11/03/2024 (Approximate), Expires: 11/03/2025 Start: 11-03-2024 End: 11-03-2025 Drugs of abuse panel - Urine by Screen method Rapid drug screen, urine Lab Routine , unspecified gestational age Encounter for supervision of normal first in first trimester Expected: 11/03/2024 (Approximate), Expires: 11/03/2025 [facility] Comment on above: Expected: 11/03/2024 (Approximate), Expires: 11/03/2025 Start: 11-03-2024 End: 11-03-2024 ambulatory 11/03/2024 1:00 PM EST Initial [facility] [address] [facility] [place] [address] [facility] Start: 11-03-2024 End: 11-03-2024 Professional / ancillary services management 11/03/2024 12:30 PM EST Ancillary Procedure [facility] [address] [facility] [place] [phone] [facility] Start: 08-29-2024 End: 08-29-2024 Patient encounter procedure 08/29/2024 10:50 AM EDT Office Visit [facility] [address] [facility] [place] [phone] Kelle Mosley, PA [address] [place] [address] Arrived [facility] Comment on above: Arrived Start: 07-26-2024 End: 07-26-2024 Patient encounter procedure 07/26/2024 8:30 AM EDT Office Visit [facility] [address] [facility] [place] [address] Kelle Mosley, PA [address] [place] [address] Arrived [facility] Comment on above: Arrived Start: 07-24-2024 COVID-19 Vaccine ( season) COVID-19 Vaccine ( season) [facility] Start: 07-24-2024 Influenza vaccination Influenza Vacc ine (#1) [facility] Start: 06-23-2024 Influenza vaccination Flu vaccine (# 1) [facility] Start: 2023 Screening for malign ant neoplasm of cervix [facility] Start: 12-20-2021 Screening for malign ant neoplasm of cervix Pap smear [facility] Start: 2014 Screening for malign ant neoplasm of cervix [facility] Start: 2012 DTaP/Tdap/Td vaccine (1 - Tdap) DTaP/Tdap/Td vaccine (1 - Tdap) [facility] Start: 2012 Hepatitis B vaccine (1 of 3 - 19+ 3-dose series) Hepatitis B vaccine (1 of 3 - 19+ 3-dose series) [facility] Start: 2011 Hepatitis C screening [facility] Start: 2011 Tetanus + diphtheria + acellular pertussis vaccine (product) [facility]ap [facility] Start: 2008 HIV screening HIV Test [facility] Start: 2006 Varicella vaccine (1 of 2 - 13+ 2-dose series) Varicella vaccine (1 of 2 - 13+ 2-dose series) [facility] Start: 2005 Depression Screen Depression Screen [facility] Start: 1998 COVID-19 Vaccine (1) COVID-19 Vaccin e (1) [facility] Bacteria identified in Urine by Culture Urine culture Microbiology Routine Missed menses Ordered: 11/03/2024 [facility] Comment on above: Ordered: 11/03/2024 CBC W Auto Different ial panel - Blood CBC and differential Lab Routine Missed menses , unspecified gestational age Ordered: 11/03/2024 [facility] Comment on above: Ordered: 11/03/2024 CHLAMYDIA TRACHOMATI S (GENITO/STI) CHLAMYDIA TRACHOMATIS (GENITO/STI) Lab Routine Exposure to STD Ordered: 12/27/2024 [facility] Comment on above: Ordered: 12/27/2024 Cytology Cervical or vaginal smear or scraping study Pap Smear Pathology and Cytology Routine Well woman exam with routine gynecological exam Ordered: 12/27/2024 [facility] Comment on above: Ordered: 12/27/2024 EKG 12 Lead EKG 12 Lead ECG STAT 12/02/2024 8:08 PM EST [facility] Hemoglobin A1c/Hemoglobin.total in Blood Hemoglobin A1c Lab Routine Missed menses , unspecified gestational age Ordered: 11/03/2024 [facility] Comment on above: Ordered: 11/03/2024 Hepatitis B virus surface Ag [Presence] in Serum or Plasma by Immunoassay Hepatitis B surface antigen Lab Routine Missed menses , unspecified gestational age Ordered: 11/03/2024 [facility] Comment on above: Ordered: 11/03/2024 Hepatitis C virus Ab [Presence] in Serum or Plasma by Immunoassay Hepatitis C antibody Lab Routine Missed menses , unspecified gestational age Ordered: 11/03/2024 [facility] Comment on above: Ordered: 11/03/2024 HIV-1/HIV-2 antigen/antibody combination immunoassay HIV-1 and HIV-2 antibodies Lab Routine Missed menses , unspecified gestational age Ordered: 11/03/2024 [facility] Comment on above: Ordered: 11/03/2024 Human papilloma viru s DNA [Presence] in Unspecified specimen by Probe with amplification HPV DNA probe, amplified Microbiology Routine Well woman exam with routine gynecological exam Ordered: 12/27/2024 [facility] Comment on above: Ordered: 12/27/2024 Neisseria gonorrhoea e DNA [Presence] in Unspecified specimen by DAYDAY with probe detection Neisseria gonorrhea DNA probe, direct Lab Routine Exposure to STD Ordered: 12/27/2024 [facility] Comment on above: Ordered: 12/27/2024 Reagin Ab [Presence] in Serum by RPR RPR Lab Routine Missed menses , unspecified gestational age Ordered: 11/03/2024 [facility] Comment on above: Ordered: 11/03/2024 Rubella antibody, IgG Rubella an tibody, IgG Lab Routine Missed menses , unspecified gestational age Ordered: 11/03/2024 [facility] Comment on above: Ordered: 11/03/2024 SURESWAB(R) ADVANCED VAGINITIS PLUS, TMA SURESWAB(R) ADVANCED VAGINITIS PLUS, TMA Pathology and Cytology Routine Vaginal discharge Ordered: 12/27/2024 [facility] Comment on above: Ordered: 12/27/2024 Immunizations Immunization Date Immunization Notes Care Provider Fa cility 10-28-2022 influenza virus vaccine, unspecified formulation JANNETH SMITH [facility] 04-15-2021 SARS-CoV-2 (COVID-19 ) mRNA-1273 vaccine JANNETH SMITH [facility] [place] 03-18-2021 SARS-CoV-2 (COVID-19 ) mRNA-1360 vaccine JANNETH SMITH [facility] [place] 03-21-2014 influenza virus vaccine, unspecified formulation Estella Guerrero MD Work Phone: [facility] Payers Date Payer Category Payer Medicaid [employer] [place] [employer] [id number] 2017-Present [address] [place] [address] [id number] 2017 Medicaid (Managed Care) [employer] [id number] 2017 Unknown [facility] [employer] [id number] 2017-Present [id number] 1993 Unknown [id number] 2.16.840.1.157547.3.579.2. 732 1993 Unknown [id number] 2.16.840.1.283208.3.579.2. 593 1993 Unknown [id number] 2.16.840.1.200856.3.579.2. 593 1993 Unknown [id number] 2.16.840.1.303856.3.579.2. 593 1993 Unknown [id number] 2.16.840.1.133707.3.579.2. 593 1993 Unknown [id number] 2.16.840.1.313072.3.579.2. 593 1993 Unknown [id number] 2.16.840.1.836049.3.579.2. 593 1993 Unknown [id number] 2.16.840.1.766023.3.579.2. 593 1993 Unknown [id number] 2.16.840.1.743929.3.579.2. 593 1993 Unknown [id number] 2.16.840.1.950746.3.579.2. 593 1993 Unknown [id number] 2.16.840.1.424229.3.579.2. 593 1993 Unknown [id number] 2.16.840.1.601408.3.579.2. 593 1993 Unknown [id number] 2.16.840.1.653502.3.579.2. 593 1993 Unknown [id number] 2.16.840.1.267450.3.579.2. 1259 1993 Unknown [id number] 2.16.840.1.222259.3.579.2. 1259 1993 Unknown [id number] 2.16.840.1.917085.3.579.2. 1259 1993 Unknown [id number] 2.16.840.1.749593.3.579.2. 173 1993 Unknown [id number] 2.16.840.1.762711.3.579.2. 727 1993 Unknown [id number] 2.16.840.1.690979.3.579.2. 727 1993 Unknown [id number] 2.16.840.1.941052.3.579.2. 727 1993 Unknown [id number] 2.16.840.1.554921.3.579.2. 727 1993 Unknown [id number] 2.16.840.1.497542.3.579.2. 727 1993 Unknown [id number] 2.16.840.1.528249.3.579.2. 727 1993 Unknown [id number] 2.16.840.1.527631.3.579.2. 7 1993 Unknown [id number] 2.16.840.1.724442.3.579.2. 727 1993 Unknown [id number] 2.16.840.1.426155.3.579.2. 727 1993 Unknown [id number] 2.16.840.1.424520.3.579.2. 9 1993 Unknown [id number] 2.16.840.1.228201.3.579.2. 9 1993 Unknown [id number] 2.16.840.1.242962.3.579.2. 9 1993 Unknown [id number] 2.16.840.1.538532.3.579.2. 9 1993 Unknown [id number] 2.16.840.1.028519.3.579.2. 9 1993 Unknown [id number] 2.16.840.1.346306.3.579.2. 1259 1959 Medicaid [id number] Social History Date Type Detail Facility Tobacco smoking status [facility] Tobacco smoking consumption unknown [facility] [employer] Other Start: 1993 [facility] Start: 02-15-2020 End: 05-23-2024 Sex Assigned At [facility] Start: 05-03-2023 End: 01-19-2024 Tobacco smoking status Never smoked tobacco (finding) [facility] Tobacco smoking status Never [facility] Start: 1995 Sex Assigned At Female F [facility] Start: 07-26-2024 End: 12-27-2024 Alcoholic beverage intake Current drinker of alcohol (finding) [facility] Start: 02-15-2020 End: 05-23-2024 History of Social function [facility] Start: 05-03-2023 Alcohol Comment 1-2 drinks les s than monthly in the past year, Caffeine intake: 2-3 cups per day [facility] Start: 09-12-2024 [facility] Start: 12-20-2018 Tobacco use and exposure Smokeless tobacco non-user [facility] [employer] Start: 02-14-2019 Alcoholic beverage intake Current non-drinker of alcohol (finding) [facility] Functional Status Date Assessment Result Facility 2024 Functional Status N/A [facility] 03-08-2024 Functional Status N/A [facility] Functional Status N/A [facility] Clinical Notes 03-18-2022 to 01-04-2025 Katie Fitzgerald MA - 01/04/2025 3:30 PM KATHIA Oconnell - 01/04/2025 3:30 PM KATHIA Oconnell - 12/27/2024 9:30 AM Noah Howell DO - 12/05/2024 3:40 PM EST Note Date & Type Note Facility 01-04-2025 History of Present illness Narrative FRAGA and trouble sleeping Reason for Appointment: Patient ID: Rosalie Rodríguez is a 29 y.o. female who presents for Routine Visit Patient presents today for Return OB appointment. MEDICATIONS Current Outpatient Medications Medication Instructions azithromycin (Zithromax Z-James) 250 MG tablet As directed magnesium oxide (MAG-OX) 400 mg, Oral, Daily methylPREDNISolone (Medrol Dospak) 4 MG tablets Day 1: 6 tablets Day 2: 5 tablets Day 3: 4 tablets Day 4: 3 tablets Day 5: 2 tablets Day 6: 1 tablet metroNIDAZOLE (FLAGYL) 500 mg, Oral, 2 times daily, Do not drink alcohol while taking this medication vcwjnhqnegcjjto-wpzagyu-kdhhQZW esin (Mytussin DAC) 30-10-100 MG/5ML solution 5 mL, Oral, 2 times daily PRN sertraline (ZOLOFT) 100 mg, Daily valACYclovir (VALTREX) [...] History: Diagnosis Date Acne Cardiac murmur Depression ([facility]) Encounter for IUD insertion 01/02/2021 Gastritis IBS [...] Exam Constitutional: Appearance: Normal appearance. She is normal weight. HENT: Head: Normocephalic. Cardiovascular: Rate and Rhythm: Normal rate. Pulses: Normal pulses. Pulmonary: Effort: Pulmonary effort is normal. Breath sounds: Normal breath sounds. Abdominal: Palpations: Abdomen is soft. Musculoskeletal: General: Normal range of motion. Neurological: General: No focal deficit present. Mental Status: She is alert and oriented to person, place, and time. Psychiatric: Mood and Affect: Mood normal. Behavior: Behavior normal. Thought Content: Thought content normal. Judgment: Judgment normal. Vitals and nursing note reviewed. Vitals: Estimated body mass index is 45.77 kg/m as calculated from the following: Height as of 07/26/24: 5' 10 . Weight as of this encounter: 319 lb. BP: Patient's last menstrual period was 08/29/2024. ASSESSMENT & PLAN ICD-10-CM 1. Second trimester Z34.92 POCT urinalysis dipstick manually resulted 2. 18 weeks gestation of Z3A.18 3. Headache in , antepartum O26.899 magnesium oxide (Mag-Ox) 400 MG tablet R51.9 Return OB: Patient presents today for a routine obstetrics appointment. Patient is currently 18w2d . Patient states she is doing well but has complaints of being tired due to current . Patient having trouble sleeping and some headaches occasionally. Pt encouraged to drink fluids, we will send in magnesium and she may use unisom Orders Placed This Encounter Procedures POCT urinalysis dipstick manually resulted Follow Up: Patient is to return to office in 4 week for routine OB appointment. Documented by KATHIA Ledezma on behalf of: KATHIA Ledezma documented in this encounter [facility] 12-27-2024 History of Present illness Narrative Reason [...] History: Diagnosis Date Acne Cardiac murmur Depression ([facility]) Encounter for IUD insertion 01/02/2021 Gastritis IBS (irritable bowel syndrome) Plantar fasciitis, bilateral HISTORY PAST MEDICAL HISTORY SOCIAL HISTORY Past Medical History: Diagnosis Date Acne Cardiac murmur Depression ([facility]) Encounter for IUD insertion 01/02/2021 Gastritis IBS [...] nursing note reviewed. Exam conducted with a card cleaner present. Vitals: Estimated body mass index is [...] of: KATHIA Ledezma documented in this encounter [facility] 12-05-2024 History of Present illness Narrative Reason [...] nursing note reviewed. Exam conducted with a card cleaner present. Vitals: Estimated body mass index is [...] Graham Howell DO documented in this encounter [facility] 11-03-2024 History of Present illness [...] or undercooked meat, and stay away from [facility]. Patient has also been advised to [...] Aleida Colon LPN documented in this encounter [facility] 08-29-2024 History of Present illness [...] 05/27/2023 Irritable bowel syndrome 05/27/2023 Mood disorder ([facility]) 05/27/2023 Right upper quadrant abdominal pain 05/27/2023 Scoliosis 05/27/2023 Vaginal delivery 09/06/2014 Encounter for weight management 06/27/2024 Resolved Ambulatory Problems Diagnosis Date Noted No Resolved Ambulatory Problems Past Medical History: Diagnosis Date Acne Cardiac murmur Depression ([facility]) Encounter for IUD insertion 01/02/2021 Gastritis IBS (irritable bowel syndrome) Plantar fasciitis, bilateral HISTORY PAST MEDICAL HISTORY SOCIAL HISTORY Past Medical History: Diagnosis Date Acne Cardiac murmur Depression ([facility]) Encounter for IUD insertion 01/02/2021 Gastritis IBS [...] nursing note reviewed. Exam conducted with a card cleaner present. Vitals: Estimated body mass index is [...] of: KATHIA Ledezma documented in this encounter [facility] 07-26-2024 History of Present illness [...] of KATHIA Ledezma documented in this encounter [facility] 2024 Hospital Discharge instructions Patient [...] medicine. Follow these instructions at home: Take pejq-mhp-zwfykzr and prescription medicines as told by your [...] provider. Document Revised: 12/24/2020 Document Reviewed: 08/28/2020 [employer] Patient Education 2022 [employer]. Follow Up Care 01/19/2024 10:50:20 With:JANNETH SMITH PA-C, URL Address: [facility] Momo Almodovar [facility] [place] [address] [phone] When: Unknown [facility] 03-10-2024 Note Chief Complaint consultation [...] - Denies A (more content not included)... [facility] Comment on above: Result Comment: Elec [...] With:Dieter REMY Address: [facility] [address] [place] [address]- Business (1) When:06/10/2024 08:33:15 Comments:With Deepthi Luis [facility] 02-09-2024 Note [id number] [facility] 02-09-2024 Note Custom Cystoscopy ? Voiding [...] you have a fever over 100 degrees. [facility] 01-19-2024 Hospital Discharge instructions Patient Education [...] including vitamins, herbs, eye drops, creams, and dqgx-woh-levolvi medicines. Any problems you or family members [...] health care provider tells you to. ?Taking xeuh-nyp-hzecnve medicines, vitamins, herbs, and supplements. General instructions [...] provider. Document Revised: 02/19/2023 Document Reviewed: 02/19/2023 [employer] Patient Education 2022 [employer]. 01/19/2024 10:32:14 Urinary Tract Infection, Adult Urinary [...] Treatment for this condition includes: Antibiotic medicine. Zxum-xfb-kfhylom medicines to treat discomfort. Drinking enough water [...] Follow these instructions at home: Medicines Take izsl-lig-ikldidf and prescription medicines only as told by [...] provider. Document Revised: 06/21/2021 Document Reviewed: 06/21/2021 [employer] Patient Education 2022 [employer]. Follow Up Care 01/08/2024 10:24:51 With:LUIS STEPHENS, JANNETH Barreto, URL Address: [address] [place] [phone] When: Unknown [facility] 01-19-2024 Note Chief Complaint Referral *Frequent UTI [...] E Coli Tx'd w/ Cefdinir 300mg BID m58adly ÁLVARO 01/01/24 *No acute abnormality CTa wo/w [...] yes avoids baths/hot tubs yes avoids scented [employer] products yes urinates after sexual activity yes [...] and benefits for (more content not included)... [facility] Comment on above: Result Comment: Elec [...] her to avoid NSAIDs or any other yisi-ctp-lwivtnd medication or high-protein supplements Nov, Renal lesion [...] and no personal patient information was compromised. [employer] Other 01-10-2024 Evaluation note* Encounter Date Diagnosis [...] her to avoid NSAIDs or any other qqns-eiv-rsewzrm medication or high-protein supplements Nov, Renal lesion (ICD-10 - N28.9) She had a renal lesion of indeterminate nature on the renal ultrasound. She is ordered to have a CAT scan with contrast by the PCP. Will follow the report once done. Nov, IBS (irritable bowel syndrome) (ICD-10 - K58.9) Continue to follow with PCP for IBS management. [employer] Other 06-21-2022 NotePROCEDURE: XR SHOULDER RT 2V or > COMPARISON: None. HISTORY: Pain of right shoulder joint FINDINGS: BONES:No fracture, acute abnormality, or significant arthropathy. SOFT TISSUES:Negative. No visible soft tissue swelling. EFFUSION:None visible. OTHER: Negative. IMPRESSION: Normal examination. Electronically authenticated by: NANDINI MAYER Date: 2022-05-13 08:41[facility]04[facility] History of Present illness Narrative* Francisco Ayers [...] Hair) regarding headaches-- will fax information to [phone] - Offered referral to neurology, patient prefers [...] papilledema. Francisco Ayers MD documented in this [id number] History of Present illness Narrative* Francisco Ayers [...] Hair) regarding headaches-- will fax information to [phone] - Offered referral to neurology, patient prefers [...] Appointments Appointment Date:02/02/2024 11:30:00 AM Scheduled Provider: Location:[facility] Appointment Type:Urology CALL PAT FT Appointment Date:02/09/2024 08:15:00 AM Scheduled Provider: Location:[facility] Appointment Type:Urology FT Appointment Date:2024 08:20:00 AM Scheduled Provider:JANNETH SMITH PA-C Location:[facility] Appointment Type:URO Office Visit [facility] evaluation + Plan note Future Appointments Appointment Date:02/02/2024 11:30:00 AM Scheduled Provider: Location:[facility] Appointment Type:Urology CALL PAT FT Appointment Date:02/09/2024 08:15:00 AM Scheduled Provider: Location:[facility] Appointment Type:Urology FT Appointment Date:2024 08:20:00 AM Scheduled Provider:JANNETH SMITH PA-C Location:[facility] Appointment Type:URO Office Visit Diagnostic Tests Pending * [facility] Future App[facility]ments Appointment Date:2024 08:20:00 AM Scheduled Provider:JANNETH SMITH PA-C Location:[facility] Future Appointments Appointment Date:11/25/2024 08:20:00 AM Scheduled Provider:JANNETH SMITH PA-C Location:[facility] Appointment Type:URO Office Visit [facility] evaluation note* Diagnosis Chronic nonintractable headache, unspecified headache type- Primary documented in this [facility] Diagnosis Chronic nonintractable headache, unspecified headache type- Primary [facility] this [facility] noteNoClick Contact Other Evaluation noteNo InformationNoOxatis Other Evaluation noteNo assessment information available [facility] Work Phone: Evaluation note* Diagnosis Encounter for weight management documented in this encounter [facility]* Diagnosis Missed menses , unspecified gestational age Encounter for supervision of normal first in first trimester documented in this encounter [facility]* Diagnosis Encounter for weight management documented in this encounter [facility]* Diagnosis Abdominal cramping, bilateral lower quadrant- Primary Abdominal pain, other specified site documented in this encounter [facility] Diagnosis 14 weeks gestation of Second trimester state, incidental Herpes zoster without complication documented in this encounter [facility]* Diagnosis 17 weeks gestation of Second trimester state, incidental Screening, , for anatomic survey Encounter for anatomic survey Exposure to STD Vaginal discharge Leukorrhea, not specified as infective Well woman exam with routine gynecological exam Routine gynecological examination Sinus congestion Other diseases of nasal cavity and sinuses documented in this encounter [facility]* Diagnosis Second trimester state, incidental 18 weeks gestation of Headache in , antepartum documented in this encounter [facility] N[facility] [place] [employer] Other History general Narrative - Reported* Type Description Date Medical History irritable bowel syndrome Medical History depression Medical History PROTEINURIA, UNSPECIFIED Medical History HYPOGLYCEMIA Medical History ARTHRALGIA Medical History SHINGLES Medical History ADHD Surgical History ovary removed 2014 Surgical History cholecystectomy Surgical History bilateral fasciitis repair Surgical History bilateral bone spur removal Hospitalization History 1 child [facility] [employer] Other Hospital course Narrative No data available for this section [facility] Hospital Discharge instructions No data available for this section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
--- NOTE | 2025-02-02 10:36 | ECG_ITS ---
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 Measurements Intervals [place] Rate: 90 P: 44 WY: 220 QRS: -8 QRSD: 68 T: 41 QT: 342 QTc: 390 Interpretive Statements 1100 Sinus rhythm 2231 First degree AV block 8102 Low QRS voltage in chest leads 9150 abnormal ECG Compared to ECG 04/17/2023 10:07:42 First degree AV block now present Electronically Signed On 02-02-2025 20:26:48 EDT by CYNDI FINK M.D.
--- NOTE | 2025-02-02 10:36 | XR_ITS ---
The [address] [address] Patient Name: ROSALIE FREEMAN MRN: [id number] date: 1995 Sex: F Assigned Patient Location: ER Current Patient Location: ER Accession/Order Number: [id number] Exam Date: 02/02/2025 11:16 Report Date: 02/02/2025 11:18 At the request of: ASHLEE ERICKSON MD Procedure: XR chest 1V PORTABLE AP ERECT CHEST 1050 hours CLINICAL HISTORY: CP today. Patient is 22 weeks . COMPARISON: 04/28/2024 Evaluation is slightly limited by large body habitus. The heart is within normal limits. No developing consolidation is noted, are clear. There is no effusion or pneumothorax. The osseous structures are intact. XR/XR chest 1V IMPRESSION: NO ACUTE FINDINGS Impression dictated by: Tangela Ellis M.D.02/02/2025 11:18 AM Dictation Location: [place] [address] Electronically authenticated by: [id number] Y Date: 02/02/2025 11:18
--- NOTE | 2025-02-02 10:37 | ED_ITS ---
HPI HPI - General Adult General Chief complaint: Chest Pain Stated complaint: CHEST PAIN - 22 WEEKS PREG Time Seen by Provider: 02/02/25 10:26 Mode of arrival: walk-in History of Present Illness HPI narrative: 29-year-old female presents for chest pain. She is 22 weeks and it started about 5:45 am when she woke up today. It is in the left upper part of her chest. There is been no injury or unusual activity. No fever or cough. It has been continuous. Related Data Home Medications ?Medication ?Instructions ?Recorded ?Confirmed fexofenadine-pseudoephedrine ER 1 tab PO DAILY 04/12/24 02/02/25 180 mg-240 mg tablet,ext.release 24 hr (Susan-D 24 Hour) magnesium oxide 400 mg (241.3 mg 400 mg PO DAILY 02/02/25 02/02/25 magnesium) tablet valacyclovir 500 mg tablet 500 mg PO DAILY 02/02/25 02/02/25 Previous Rx's ?Medication ?Instructions ?Recorded famotidine 20 mg tablet (Pepcid) 20 mg PO BID #20 tabs 04/28/24 ondansetron 4 mg disintegrating 4 mg PO Q8H PRN nausea and 04/28/24 tablet vomiting 2 days #10 tabs Allergies Allergy/AdvReac Type Severity Reaction Status Date / Time webril Allergy Hives Uncoded 04/28/24 08:58 Opioid HPI Opioid Management Most Recent Opioid Data: Last Pain Scale 0 03/14/24 11:45 03/14/24 Ur Phencyclidine Scrn Negative (NEGATIVE) 12/23/24 09:56 11/25 12/17 Review of Systems ROS Narrative A ten point review of systems is negative except as noted above. [facility] Medical History (Updated 02/02/25 @ 15:14 by Niko Rene MD) Insomnia ?G47.00 - Insomnia, unspecified (ICD-10) Cholecystitis without calculus ?K81.9 - Cholecystitis, unspecified (ICD-10) Anxiety ?F41.9 - Anxiety disorder, unspecified (ICD-10) Abdominal pain ?R10.9 - Unspecified abdominal pain (ICD-10) Shoulder pain, right ?M25.511 - Pain in right shoulder (ICD-10) ADHD ?F90.9 - Attention-deficit hyperactivity disorder, unspecified type (ICD-10) IBS (irritable bowel syndrome) ?K58.9 - Irritable bowel syndrome without diarrhea (ICD-10) GERD (gastroesophageal reflux disease) ?K21.9 - Gastro-esophageal reflux disease without esophagitis (ICD-10) Depression with anxiety ?F41.8 - Other specified anxiety disorders (ICD-10) Recurrent UTI (urinary tract infection) ?N39.0 - Urinary tract infection, site not specified (ICD-10) Surgical History (Updated 01/28/24 @ 11:00 by Joan Colon) H/O oophorectomy H/O unilateral salpingectomy ?Z90.79 - Acquired absence of other genital organ(s) (ICD-10) H/O colonoscopy ?Z98.890 - Other specified postprocedural states (ICD-10) S/P bilateral foot surgery ?Z98.890 - Other specified postprocedural states (ICD-10) Hx laparoscopic cholecystectomy ?Z90.49 - Acquired absence of other specified parts of digestive tract (ICD- 10) Family History (Updated 04/11/24 @ 11:49 by Ana Breaux) Sister Bipolar 1 disorder Father Depression Family history of hypertension Hyperlipidemia Social History (Updated 04/12/24 @ 12:57 by Yanet Langston) Within the past year, how often did you have a drink containing alcohol: never Score interpretation: A score less than 3 is consistent with normal alcohol consumption. Smoking status: Never smoker Non-prescribed substance use: denies use Previous occupational history: [employer] Highest level of school completed/degree received: some college, no degree Little interest or pleasure in doing things: not at all Feeling down, depressed, or hopeless: not at all Gender Identity: female Exam Narrative Exam Narrative: Nurses note and vital signs reviewed and patient is not hypoxic. General: The patient appears well and in no apparent distress. Skin: Warm, dry, no pallor noted. There is no rash noted. Head: Normocephalic, atraumatic Eye: Normal conjunctiva, no drainage Ears, Nose, Mouth, and Throat: oral mucosa is moist. Nares patent. Cardiovascular: Regular Rate and Rhythm Respiratory: Patient is in no distress, no accessory muscle use, lungs are clear to auscultation, no wheezing, rales or rhonchi Back: non-tender GI: Soft and nontender Musculoskeletal: The patient has no evidence of calf tenderness, no pitting edema, symmetrical pulses noted bilaterally Neurological: A&O, normal speech Psychiatric: Cooperative Constitutional Vital Signs, click to edit/add: Last Vital Signs Temp 98.6 F 02/02/25 10:25 Pulse 68 02/02/25 13:42 Resp 20 02/02/25 13:42 BP 138/88 02/02/25 13:42 Pulse Ox 100 02/02/25 13:42 O2 Del Method Room Air 02/02/25 13:42 Course Vital Signs Vital signs: Vital Signs Temperature 98.6 F 02/02/25 10:25 Pulse Rate 90 02/02/25 10:25 Respiratory Rate 18 02/02/25 10:25 Blood Pressure 155/90 H 02/02/25 10:25 Pulse Oximetry 96 02/02/25 10:25 Oxygen Delivery Method Room Air 02/02/25 10:25 Temperature 98.6 F 02/02/25 10:25 Pulse Rate 68 02/02/25 13:42 Respiratory Rate 20 02/02/25 13:42 Blood Pressure 138/88 02/02/25 13:42 Pulse Oximetry 100 02/02/25 13:42 Oxygen Delivery Method Room Air 02/02/25 13:42 Medical Decision Making MDM Narrative Medical decision making narrative: Her laboratory analysis was negative including troponin. My concern was for pulmonary embolism so a nuclear VQ scan was ordered but it is not available here. We discussed the case with radiology as well as Dr. Arnold and they both recommend doing a CAT scan, angiogram. This was performed and it was negative. Findings are discussed with the patient and she is able to be discharged home. Treatment diagnosis and follow-up were discussed with the patient. Differential Diagnosis Differential Diagnosis: Chest wall pain, GE reflux, PE, pneumothorax, anxiety Lab Data Lab results reviewed: Yes I reviewed the patient's lab results Labs: Lab Results 02/02/25 Range/Units 10:45 WBC 10.7 (4.0-11.0) 10^3/uL RBC 4.20 (4.20-5.40) 10^6/uL Hgb 12.7 (12.0-16.0) g/dL Hct 37.6 (36.0-48.0) % MCV 89.5 (81.0-99.0) fL MCH 30.2 (26.7-34.0) pg MCHC 33.8 (29.9-35.2) g/dL RDW 12.8 (11.0-15.0) % Plt Count 260 (150-450) 10^3/uL MPV 9.1 L (9.5-13.5) fL Neut % (Auto) 78.4 H (43.0-75.0) % Lymph % (Auto) 14.1 L (20.5-60.0) % [place] % (Auto) 6.0 (1.7-12.0) % Eos % (Auto) 0.9 (0.9-7.0) % Baso % (Auto) 0.2 (0.2-2.0) % Neut # (Auto) 8.4 H (1.4-6.5) 10^3/uL Lymph # (Auto) 1.5 (1.2-3.8) 10^3/uL [place] # (Auto) 0.6 (0.3-0.8) 10^3/uL Eos # (Auto) 0.1 (0.0-0.7) 10^3/uL Baso # (Auto) 0.0 (0.0-0.1) 10^3/uL Abs Immat Gran (auto) 0.04 H (0.00-0.03) 10^3/uL Imm/Tot Granulo (auto) 0.4 (0.0-0.5) % Sodium 136 (136-145) mmol/L Potassium 3.7 (3.5-5.1) mmol/L Chloride 103 (98-107) mmol/L Carbon Dioxide 24.3 (21.0-32.0) mmol/L Anion Gap 12.4 BUN 4.0 L (7.0-18.0) mg/dL Creatinine 0.51 L (0.55-1.02) mg/dL Est GFR ( Amer) >60 (>=60 mL/min/1.73m^2) Est GFR (Non-Af Amer) >60 (>=60 mL/min/1.73m^2) BUN/Creatinine Ratio 7.8 Glucose 97 (74-106) mg/dL Calcium 8.9 (8.5-10.1) mg/dL Troponin I High Sens <4.0 L (4.0-51.3) pg/mL Imaging Data Chest x-ray: Radiologist's impression: ITS Impressions Chest X-Ray 02/02/25 10:36 IMPRESSION: NO ACUTE FINDINGS Impression dictated by: Tangela Ellis M.D.02/02/2025 11:18 AM Dictation Location: [place] [address] Electronically authenticated by: [id number] Y Date: 02/02/2025 11:18 CTA per radiologist shows no evidence of acute PE ECG Data Attestation: I personally reviewed and interpreted this ECG as follows: (EKG on my interpretation shows normal sinus rhythm with a rate of 90 and first-degree AV block but no acute change) Discharge Plan Discharge Chief Complaint: Chest Pain Clinical Impression: Chest pain Patient Disposition: Home, Self-Care Time of Disposition Decision: 15:13 Condition: Good Mode of Transportation: Private Vehicle Prescriptions / Home Meds: No Action fexofenadine-pseudoephedrine [Susan-D 24 Hour] 180-240 mg tablet extended release 24 hr 1 tab PO DAILY ondansetron 4 mg tablet,disintegrating 4 mg PO Q8H PRN (Reason: nausea and vomiting) 2 Days Qty: 10 0RF famotidine [Pepcid] 20 mg tablet 20 mg PO BID Qty: 20 0RF magnesium oxide 400 mg (241.3 mg magnesium) tablet 400 mg PO DAILY valacyclovir 500 mg tablet 500 mg PO DAILY Print Language: Montenegrin Instructions: Chest Pain (ED) Referrals: Shashi Hargrove MD [Primary Care Provider] - 1 week
[2025-02-02 10:58] LABS: Basophils Percent Auto 0.2 % (0.2-2.0); Eosinophils Absolute Auto 0.1 10^3/uL (0.0-0.7); Eosinophils Percent Auto 0.9 % (0.9-7.0); Hematocrit 37.6 % (36.0-48.0); Hemoglobin 12.7 g/dL (12.0-16.0); Immature Granulocytes Abs Auto 0.04 10^3/uL (0.00-0.03); Immature Granulocytes Pct Auto 0.4 % (0.0-0.5); Lymphocytes Absolute Auto 1.5 10^3/uL (1.2-3.8); Lymphocytes Percent Auto 14.1 % (20.5-60.0); Mean Corpuscular HGB Conc 33.8 g/dL (29.9-35.2); Mean Corpuscular Hemoglobin 30.2 pg (26.7-34.0); Mean Corpuscular Volume 89.5 fL (81.0-99.0); Mean Platelet Volume 9.1 fL (9.5-13.5); Monocytes Absolute Auto 0.6 10^3/uL (0.3-0.8); Neutrophils Absolute Auto 8.4 10^3/uL (1.4-6.5); Neutrophils Percent Auto 78.4 % (43.0-75.0); Platelet Count 260 10^3/uL (150-450); Red Cell Distribution Width 12.8 % (11.0-15.0); White Blood Count 10.7 10^3/uL (4.0-11.0)
[2025-02-02 11:13] LABS: Anion Gap 12.4; BUN Creatinine Ratio 7.8; Calcium 8.9 mg/dL (8.5-10.1); Carbon Dioxide 24.3 mmol/L (21.0-32.0); Chloride 103 mmol/L (98-107); Estimated GFR (African America >60 (>=60 mL/min/1.73m^2); Estimated GFR (Non-African Ame >60 (>=60 mL/min/1.73m^2); Glucose 97 mg/dL (74-106); Potassium 3.7 mmol/L (3.5-5.1); Sodium 136 mmol/L (136-145); Troponin I High Sensitivity <4.0 pg/mL (4.0-51.3)
[2025-02-02 11:36] VITALS: BP 119/84; PULSE 69; O2SAT 96
[2025-02-02 13:42] VITALS: BP 138/88; PULSE 68; O2SAT 100
== END 2025-02-02 15:23 | disposition home or self-care (01) ==
PROVIDERS: Emergency Provider Emergency Medicine; PCP Family Medicine
DX: O99.891 Other specified diseases and conditions complicating pregnancy (principal); R07.9 Chest pain, unspecified; Z3A.22 22 weeks gestation of pregnancy; Z90.49 Acquired absence of other specified parts of digestive tract
CPT/HCPCS: 36415; 71045; 71275; 80048; 84484; 85025; 93005; 99285; Q9967

== ENCOUNTER 2025-03-06 08:21 | Outpatient (OUT) | payer OTHER, SELFPAY ==
--- OUTSIDE RECORDS SUMMARY | 2025-03-06 08:39 | XMS_ITS | CCD ---
Author Organization [facility] Care Team Providers Care Shooter'S Helper Name Role Phone Unavailable Primary Care Provider [...] DR SEWELL Attending Unavailable HOY ., DR ESWELL Admitting Unavailable ZIEBER, DR ADRIANA Mckenzie Consulting [...] Unavailable HOY ., DR SEWELL Admkaty Unavailable MOORHEAD, DR NANDINI Stafford Consulting Unavailable HOY ., [...] Physician MD Melodie Ashton Primary Care Provider [phone] MD Yonis Miranda Attending Provider Melodie Ashton Primary Care Unavailable Nill, Yonis Mckenzie Attending Unavailable Nill, Yonis R Admitting Unavailable DANTE, GRAHAM Attending Unavailable DANTE, GRAHAM Attending Unavailable MELANY, KELLE Attending Unavailable Melodie Ashton MD Primary Care Provider [phone] Melodie Ashton MD Primary Care Provider MELODIE ASHTON Primary Care Unavailable NIC ESTEVEZ Attending Unavailable NILL, Yonis R Attending Unavailable LUIS, JANNETH E Attending Unavailable LUIS, JANNETH E Attending Unavailable LUIS, JANNETH E Attending Unavailable HoyMelodie Referring Unavailable LUIS, JANNETH E Attending Unavailable REMY, Dieter R Admitting Unavailable ERMY, Dieter R Attending Unavailable REMY, Dieter R Referring Unavailable LUIS, JANNETH E Admitting Unavailable LUIS, JANNETH E Attending Unavailable NILL, Yonis R Attending Unavailable NILL, Yonis R Attending Unavailable SawyMelodie Referring Unavailable MELANY, KELLE Attending Unavailable MELANY, KELLE Attending Unavailable MELANY, KELLE Referring Unavailable DANTE, GRAHAM Attending Unavailable MELANY, KELLE Attending Unavailable DANTE, GRAHAM Attending Unavailable Allergies Allergy Classification Reported Allergen(s) Allergy Type Date of Onset Reaction(s) Facility (1 source) [facility]; Translations: [[facility]] Propensity to adverse reactions (disorder) 0 [facility] (3 sources) [facility] Drug allergy hives [facility] Other (12 sources) [facility] Drug Allergy [facility] (1 source) No Known Medication Allergies; Translations: [No Known Medication Allergies] Propensity to adverse reactions (disorder) [facility] Repository Medications Current Medications Medication Drug [...] Daily UTI prevention, 30 tab(s), Refill(s) 3, [facility]/pharmacy #[id number], 180, cm, 05/10/24 9:08:00 EDT, Height/Length Dosing, 150, kg, 05/10/24 9:08:00 EDT, Weight Dosing Start Date: 07/26/24 Status: Ordered Start: 01-19-2024 Bactrim 400 mg -80 mg Tab 1 tab(s), Oral, Daily UTI prevention, 30 tab(s), Refill(s) 3, [facility]/pharmacy #[id number], 180, cm, 01/19/24 9:37:00 EST, [...] completed., # 2 cap(s), Refills(s) 0, Pharmacy: [facility]/pharmacy #[id number], 180, cm, 01/19/24 9:37:00 EST, Height/Length Dosing, 145.5, kg, 01/19/24 9:37:00 EST, Weight Dosing Start Date: 01/19/24 Status: Ordered fexofenadine hydrochloride 30 mg disintegrating oral tablet (10 sources) Histamine-1 Receptor Antagonist End: 12-05-2024 take 1 tablet by mouth once daily fexofenadine ODT (Susan ODT) 30 MG disintegrating tablet Take 30 mg by mouth Daily 12/05/2024 Discontinued levonorgestrel 0.488038 mg/hr intrauterine system (8 sources) Progestin, Progestin-containin [...] 09-20-2021 Chronic Other aftercare (1 source) Other prison (current) drug therapy; Translations: [[facility] CURRENT DRUG THERAPY] Onset: 3 Episodic Other [...] II, MD, PHD at 24-Jan-2025 09:25:38 AM [facility] Normal Not Available Comment on above: Order Comment: US OB ANATOMY SINGLE W US OB CERVICAL LENGTH Estimated Date of Delivery: 06/05/25 Gestational Age as of 12/27/2024: 17w1d Urinalysis macro (dipstick) panel (U)on 01-04-2025 Bilirubin, UA Positive Negative - 4(70) +++ mg/dL [facility] Comment on above: small Blood, UA Negative Negative - 50 Issac/mcL [facility] Clarity, UA Clear [facility] Color, UA Yellow [facility] Glucose, UA Negative Negative - 2000(110) ++++ mg/dL [facility] Interpretation and review of laboratory results Abnormal [facility] Ketones, UA Positive Negative - 160(16) ++++ mg/dL [facility] Comment on above: trace Leukocytes, UA Positive Negative - 500+++ Christo/mcL [facility] Comment on above: small Nitrite, UA Negative Negative - Positive [facility] pH, UA 5.5 5 - 9 [facility] Protein, UA Positive Negative - 1999(20) ++++ mg/dL [facility] Comment on above: 30mg/dL Spec Grav, UA 1.03 1 - 1.03 [facility] Urobilinogen, UA 0.2 0.2 - 12 mg/dL [facility] IGP,APTIMA HPV,AGE GDLNon AGE GDLN ACOG TESTING Note . [facility] Comment on above: TESTS RESULT FLAG UN ITS REF RANGE LAB Clinician Provided Cytology Information Source.............Cervix Other.............. No. of containers..01 ThinPrep Vial Age Algo ACOG Soraida... 30-65 01 FLAG LEGEND: L-Low Normal,H-High Normal,LL-Alert Low,HH-Alert High <-Panic Low,>-Panic High,A-Abnormal,AA-Critical Abnormal Performed at: 01 =G [facility] [address] [place] [address] Haily Cook MD, HPV APTIMA Negative Negative Stamped e Comment on above: This nucleic acid am plification test detects fourteen high- risk HPV types (16,18,31,33,35,39,45,51,52,56,58,59,66,68) without differentiation. Performed at: =[address], [place] [id number] Watch Case Polisher: Haily Cook MD, Phone: [phone] Performed at: [address] [id number] Watch Case Polisher: Haily Cook MD, Phone: [phone] IGP, APTIMA HPV, RFX 16/18,45 Note . [facility] Comment on above: TESTS RESULT FLAG UN ITS REF RANGE LAB DIAGNOSIS: 02 NEGATIVE FOR INTRAEPITHELIAL LESION OR MALIGNANCY. Specimen adequacy: 02 Satisfactory for evaluation. No endocervical component is identified. Performed by: 02 Janneth Guerrero, Supervisor Electronics Inspection (ASCP) . 02 Note: Note 02 The [...] <-Panic Low,>-Panic High,A-Abnormal,AA-Critical Abnormal Performed at: 02 [facility] [address] [place] [address] Haily Cook MD, SPATULA-ALONE C[facility]IX [facility] Urinalysis macro (dipstick) panel (U)on 12-27-2024 Bilirubin, UA Negative Negative - 4(70) +++ mg/dL [facility] Blood, UA Negative Negative - 50 Issac/mcL [facility] Clarity, UA Clear [facility] re Color, UA Yellow [facility] Glucose, UA Negative Negative - 1999(110) ++++ mg/dL [facility] Interpretation and review of laboratory results Abnormal [facility] re Ketones, UA Negative Negative - 160(16) ++++ mg/dL [facility] Leukocytes, UA Positive Negative - 500+++ Christo/mcL [facility] Comment on above: small Nitrite, UA Negative Negative - Positive [facility] pH, UA 6 5 - 9 [facility] Protein, UA Trace Negative - 1999(20) ++++ mg/dL [facility] Spec Grav, UA 1.03 1 - 1.03 [facility] Urobilinogen, UA 0.2 0.2 - 12 mg/dL [facility] BOX TESTon 12-23-2024 BOX TEST SENT OUT [facility] BOX1 [employer] [facility] BOX2 12/23/24 [facility] [...] no show a second time. Normal [facility] Urinalysis macro (dipstick) panel (U)on 12-05-2024 Bilirubin, UA Negative Negative - 4(70) +++ mg/dL [facility] Blood, UA Negative Negative - 50 Issac/mcL [facility] Clarity, UA Clear [facility] re Color, UA Yellow [facility] Glucose, UA Negative Negative - 1999(110) ++++ mg/dL [facility] Interpretation and review of laboratory results Abnormal [facility] re Ketones, UA Negative Negative - 160(16) ++++ mg/dL [facility] Leukocytes, UA Positive Negative - 500+++ Christo/mcL [facility] Comment on above: small Nitrite, UA Negative Negative - Positive [facility] pH, UA 6.5 5 - 9 [facility] [employer] Protein, UA Trace Negative - 1999(20) ++++ mg/dL [facility] Spec Grav, UA 1.025 1 - 1.03 [facility] Urobilinogen, UA 0.2 0.2 - 12 [facility]dL [facility] Basic Metabolic Panelon 11-23 Est, Glom Filt Rate - PINF [facility] Comment on above: These results are [...] Interpretation and review of laboratory results Abnormal [facility] Urea nitrogen/Creatinine [Mass ratio] 12 mg/mg - [facility] Basic Metabolic Profon 12-02 Anion gap [Moles/Vol] 11 mmol/L Normal - [facility] Comment on above: Performed By: #### B MP, LIVP, MG, CDP, LIP #### [facility] [address] [place] [address] Watch Case Polisher: Nandini Acevedo MD BUN/CRE Ratio 12 Normal 9-20 [facility] Comment on above: Performed By: #### B MP, LIVP, MG, CDP, LIP #### [facility] [address] [place] [address] Watch Case Polisher: Nandini Acevedo MD Calcium [Mass/Vol] 9.3 mg/dL Normal 8.6-10.4 [facility] Comment on above: Performed By: #### B MP, LIVP, MG, CDP, LIP #### [facility] [address] [place] [address] Watch Case Polisher: Nandini Acevedo MD Chloride [Moles/Vol] 102 mmol/L Normal 98-107 [facility] Comment on above: Performed By: #### B MP, LIVP, MG, CDP, LIP #### [address] [place] [address] Watch Case Polisher: Nandini Acevedo MD CO2 [Moles/Vol] 24 mmol/L Normal 20-31 [facility] Comment on above: Performed By: #### B MP, LIVP, MG, CDP, LIP #### [address] [place] [address] Watch Case Polisher: Nandini Acevedo MD Creatinine [Mass/Vol] 0.5 mg/dL Normal 0.50-0.90 [facility] Comment on above: Performed By: #### B MP, LIVP, MG, CDP, LIP #### [address] [place] [address] Watch Case Polisher: Nandini Acevedo MD GFR/1.73 sq M.predicted among non-blacks MDRD (S/P/Bld) [Vol rate/Area] mL/min/{1.73_m2} Normal >60 [facility] Comment on above: Result Comment: [...] B MP, LIVP, MG, CDP, LIP #### [address] [place] [address] Watch Case Polisher: Nandini Acevedo MD Glucose [Mass/Vol] 88 mg/dL Normal 74-99 [facility] Comment on above: Performed By: #### B MP, LIVP, MG, CDP, LIP #### [address] [place] [address] Watch Case Polisher: Nandini Acevedo MD Potassium [Moles/Vol] 3.6 mmol/L Low 3.7-5.3 [facility] Comment on above: Performed By: #### B MP, LIVP, MG, CDP, LIP #### [address] [place], [place] [address] Watch Case Polisher: Nandini Acevedo MD Sodium [Moles/Vol] 137 mmol/L Normal 136-145 [facility] Comment on above: Performed By: #### B MP, LIVP, MG, CDP, LIP #### [address] [place], [place] [id number] Watch Case Polisher: Nandini Acevedo MD Urea nitrogen [Mass/Vol] 6 mg/dL Normal 6-20 [facility] Comment on above: Performed By: #### B MP, LIVP, MG, CDP, LIP #### [address] [place] [address] Watch Case Polisher: Nandini Acevedo MD CBC with Auto Differentialon 12-02-2024 Basophils (Bld) [#/Vol] 0.04 10*3/uL [facility] Basophils/100 WBC (Bld) 0 % 0 - 2 % [facility] Eosinophils (Bld) [#/Vol] 0.06 10*3/uL [facility] Eosinophils/100 WBC (Bld) 0 % Low 1 - 4 % [facility] Erythrocyte distribution width (RBC) [Ratio] 12.0 % 11.8 - 14.4 % [facility] Hematocrit (Bld) [Volume fraction] 38.6 % 36.3 - 47.1 % [facility] Hemoglobin (Bld) [Mass/Vol] 13.3 g/dL 11.9 - 15.1 g/dL [facility] Immature granulocytes (Bld) [#/Vol] 0.05 10*3/uL [facility] Immature granulocytes/100 WBC (Bld) 0 % 0 [facility] Interpretation and review of laboratory results Abnormal [facility] Lymphocytes/100 WBC (Bld) 9 % Low 24 - 43 % [facility] Lymphocytes/100 WBC (Bld) 1.26 % [facility] MCH (RBC) [Entitic mass] 30.6 pg 25.2 - 33.5 pg [facility] MCHC (RBC) [Mass/Vol] 34.5 g/dL 28.4 - 34.8 g/dL [facility] MCV (RBC) [Entitic vol] 88.7 fL 82.6 - 102.9 fL [facility] Monocytes/100 WBC (Bld) 6 % 3 - 12 % [facility] Monocytes/100 WBC (Bld) 0.88 % [facility] Neutrophils/100 WBC (Bld) 85 % High 36 - 65 % [facility] Nucleated RBC/100 WBC (Bld) [Ratio] 0.0 % 0.0 per 100 WBC [facility] Platelet mean volume (Bld) [Entitic vol] 9.2 fL 8.1 - 13.5 fL [facility] Platelets (Bld) [#/Vol] 267 10*3/uL [facility] RBC (Bld) [#/Vol] 4.35 10*6/uL 3.95 - 5.1 1 m/uL [facility] Segmented neutrophils/100 WBC (Bld) 12.17 % High [facility] WBC other (Bld) [#/Vol] 14.5 High [facility] CBC with Diffon 12-02-2024 Abs. Basophil 0.04 k/uL Normal 0.00-0.20 [facility] Comment on above: Performed By: #### B MP, LIVP, MG, CDP, LIP #### [address] [place], [place] [id number] Watch Case Polisher: Nandini Acevedo MD Abs.Imm.Granulocyte 0.05 k/uL Normal 0.00-0.30 [facility] Comment on above: Performed By: #### B MP, LIVP, MG, CDP, LIP #### [address] [place], [facility]83 Watch Case Polisher: Nandini Acevedo MD Abs.Neutrophil (Seg) 12.17 k/uL High 1.50-8.10 [facility] Comment on above: Performed By: #### B MP, LIVP, MG, CDP, LIP #### [address] [place], [place] [address] Watch Case Polisher: Nandini Acevedo MD Basophils/100 WBC (Bld) 0 % Normal 0-2 [facility] Comment on above: Performed By: #### B MP, LIVP, MG, CDP, LIP #### [address] [place], [facility]83 Watch Case Polisher: Nandini Acevedo MD Eosinophils (Bld) [#/Vol] 0.06 10*3/uL Normal 0.00-0.44 [facility] Comment on above: Performed By: #### B MP, LIVP, MG, CDP, LIP #### [address] [place] [address] Watch Case Polisher: Nandini Acevedo MD Eosinophils/100 WBC (Bld) 0 % Low 1-4 [facility] Comment on above: Performed By: #### B MP, LIVP, MG, CDP, LIP #### [facility] [address] [place], [facility]83 Watch Case Polisher: Nandini Acevedo MD Erythrocyte distribution width (RBC) [Ratio] 12.0 % Normal 11.8-14.4 [facility] Comment on above: Performed By: #### B MP, LIVP, MG, CDP, LIP #### [facility] [address] [place], [place] [address] Watch Case Polisher: Nandini Acevedo MD Hematocrit (Bld) [Volume fraction] 38.6 % Normal 36.3-47.1 [facility] Comment on above: Performed By: #### B MP, LIVP, MG, CDP, LIP #### [address] [place] [id number] Watch Case Polisher: Nandini Acevedo MD Hemoglobin (Bld) [Mass/Vol] 13.3 g/dL Normal 11.9-15.1 [facility] Comment on above: Performed By: #### B MP, LIVP, MG, CDP, LIP #### [address] [place], [place] [address] Watch Case Polisher: Nandini Acevedo MD Immature granulocytes/100 WBC (Bld) 0 % Normal 0 [facility] Comment on above: Performed By: #### B MP, LIVP, MG, CDP, LIP #### [address] [place], [facility]83 Watch Case Polisher: Nandini Acevedo MD Lymphocytes (Bld) [#/Vol] 1.26 10*3/uL Normal 1.10-3.70 [facility] Comment on above: Performed By: #### B MP, LIVP, MG, CDP, LIP #### [address] [place], [facility]83 Watch Case Polisher: Nandini Acevedo MD Lymphocytes/100 WBC (Bld) 9 % Low 24-43 [facility] Comment on above: Performed By: #### B MP, LIVP, MG, CDP, LIP #### [address] [place] [address] Watch Case Polisher: Nandini Acevedo MD MCH (RBC) [Entitic mass] 30.6 pg Normal 25.2-33.5 [facility] Comment on above: Performed By: #### B MP, LIVP, MG, CDP, LIP #### [address] [place] [address] Watch Case Polisher: Nandini Acevedo MD MCHC (RBC) [Mass/Vol] 34.5 g/dL Normal 28.4-34.8 [facility] Comment on above: Performed By: #### B MP, LIVP, MG, CDP, LIP #### [address] [place], [facility]83 Watch Case Polisher: Nandini Acevdeo MD MCV (RBC) [Entitic vol] 88.7 fL Normal 82.6-102.9 [facility] Comment on above: Performed By: #### B MP, LIVP, MG, CDP, LIP #### [address] [place] [address] Watch Case Polisher: Nandini Acevedo MD Monocytes (Bld) [#/Vol] 0.88 10*3/uL Normal 0.10-1.20 [facility] Comment on above: Performed By: #### B MP, LIVP, MG, CDP, LIP #### [address] [place] [address] Watch Case Polisher: Nandini Acevedo MD Monocytes/100 WBC (Bld) 6 % Normal 3-12 [facility] Comment on above: Performed By: #### B MP, LIVP, MG, CDP, LIP #### [address] [place], [place] [id number] Watch Case Polisher: Nnadini Acevedo MD Neutrophil (Seg) 85 % High 36-65 [facility] Comment on above: Performed By: #### B MP, LIVP, MG, CDP, LIP #### [facility] [address] [place] [address] [place] [address] Watch Case Polisher: Nandini Acevedo MD NRBC Automated 0.0 per 100 WBC Normal 0.0 [facility] Comment on above: Performed By: #### B MP, LIVP, MG, CDP, LIP #### [address] [place], [facility]83 Watch Case Polisher: Nandini Acevedo MD Platelet mean volume (Bld) [Entitic vol] 9.2 fL Normal 8.1-13.5 [facility] Comment on above: Performed By: #### B MP, LIVP, MG, CDP, LIP #### [address] [place], [facility]83 Watch Case Polisher: Nandini Acevedo MD Platelets (Bld) [#/Vol] 267 10*3/uL Normal 138-453 [facility] Comment on above: Performed By: #### B MP, LIVP, MG, CDP, LIP #### [address] [place] [address] Watch Case Polisher: Nandini Acevedo MD RBC (Bld) [#/Vol] 4.35 10*6/uL Normal 3.95-5.11 [facility] Comment on above: Performed By: #### B MP, LIVP, MG, CDP, LIP #### [address] [place], [place] [id number] Watch Case Polisher: Nandini Acevedo MD WBC (Bld) [#/Vol] 14.5 10*3/uL High 3.5-11.3 [facility] Comment on above: Performed By: #### B MP, LIVP, MG, CDP, LIP #### [address] [place] [address] Watch Case Polisher: Nandini Acevedo MD Hepatic Function Panelon Albumin/Globulin [Mass ratio] 1.4 {ratio} 1.0 - 2.5 [facility] ALP [Catalytic activity/Vol] 61 U/L 35 - 104 U/L [facility] Bilirubin.direct [Mass/Vol] mg/dL 0.00 - 0.30 mg/dL [facility] Bilirubin.indirect [Mass/Vol] Can not be calculated 0.0 - 1.0 mg/dL [facility] Lipaseon 12-02-2024 Lipase [Catalytic activity/Vol] 34 U/L Normal 13-60 [facility] Comment on above: Performed By: #### B MP, LIVP, MG, CDP, LIP #### [address] [place] [address] Watch Case Polisher: Nandini Acevedo MD Liver Profileon 12-02-2024 Albumin [Mass/Vol] 3.9 g/dL Normal 3.5-5.2 [facility] Comment on above: Performed By: #### B MP, LIVP, MG, CDP, LIP #### [address] [place] [address] Watch Case Polisher: Nandini Acevedo MD Albumin/Glob Ratio 1.4 Normal 1.0-2.5 [facility] Comment on above: Performed By: #### B MP, LIVP, MG, CDP, LIP #### [facility] [address] [place] [address] [place] [address] Watch Case Polisher: Nandini Acevedo MD Alkaline Phos 61 U/L Normal 35-104 [facility] Comment on above: Performed By: #### B MP, LIVP, MG, CDP, LIP #### [address] [place] [address] Watch Case Polisher: Nandini Acevedo MD ALT [Catalytic activity/Vol] 14 U/L Normal 10-35 [facility] Comment on above: Performed By: #### B MP, LIVP, MG, CDP, LIP #### [address] [place], [place] [id number] Watch Case Polisher: Nandini Acevedo MD AST [Catalytic activity/Vol] 14 U/L Normal 10-35 [facility] Comment on above: Performed By: #### B MP, LIVP, MG, CDP, LIP #### [address] [place], [place] [id number] Watch Case Polisher: Nandini Acevedo MD Bilirubin [Mass/Vol] mg/dL Normal 0.00-1.20 [facility] Comment on above: Performed By: #### B MP, LIVP, MG, CDP, LIP #### [address] [place], [place] [address]383 Watch Case Polisher: Nandini Acevedo MD Bilirubin, Indirect Can not be calculated Normal 0.0-1 .0 [facility] Comment on above: Performed By: #### B MP, LIVP, MG, CDP, LIP #### [address] [place], [place] [id number] Watch Case Polisher: Nandini Acevedo MD Bilirubin.indirect [Mass/Vol] mg/dL Normal 0.00-0.30 [facility] Comment on above: Performed By: #### B MP, LIVP, MG, CDP, LIP #### [address] [place], [place] [id number] Watch Case Polisher: Nandini Acevedo MD Protein [Mass/Vol] 6.7 g/dL Normal 6.6-8.7 [facility] Comment on above: Performed By: #### B MP, LIVP, MG, CDP, LIP #### [address] [place] [address] Watch Case Polisher: Nandini Acevedo MD Magnesiumon 12-02-2024 Magnesium [Mass/Vol] 1.7 mg/dL Normal 1.6-2.6 [facility] Comment on above: Performed By: #### B MP, LIVP, MG, CDP, LIP #### [facility] [address] [place] [address] Watch Case Polisher: Nandini Acevedo MD Microscopic Urinalysison Amorphous sediment LM Ql (Urine sed) 2+ Abnormal None [facility] Epithelial cells LM.HPF (Urine sed) [#/Area] 0 TO 2 [facility] Interpretation and review of laboratory results Abnormal [facility] RBC LM.HPF (Urine sed) [#/Area] 0 TO 2 [facility] WBC LM.HPF (Urine sed) [#/Area] 2 TO 5 [facility] No Panel Informationon 12-02 [facility] US OB LESS THAN 14 WEEKS [...] seen given later gestation Embryo(<11wk) /Fetus(>=11wk): Single [place] Rump Length: 7.9 cm Rate of Cardiac [...] Keyur Benavides MD 12/02/24 Final result Normal [facility] Intrauterine with embryonic/ cardiac activity. Estimated gestational age by current ultrasound is 14 weeks 0 days. [facility] TRIMESTER OBSTETRIC ULTRASOUND 12/02/2024 TECHNIQUE: [...] seen given later gestation Embryo(<11wk) /Fetus(>=11wk): Single [place] Rump Length: 7.9 cm Rate of Cardiac Activity 160 Right ovary: 3.2 x 2.2 x 2.3 cm Left ovary: Surgically absent Free fluid: Measurements: Estimated gestational age by current ultrasound: 14 weeks 0 days Estimated gestational age by LMP/prior ultrasound: 13 weeks 4 days Estimated Due Date: 06/02/2025 by today's [facility] Keyur Benavides MD - 12/02/2024 EXAMINATION: FIRST [...] seen given later gestation Embryo(<11wk) /Fetus(>=11wk): Single [place] Rump Length: 7.9 cm Rate of Cardiac [...] current ultrasound is 14 weeks 0 days. [facility] Radiology Study observation (narrative) [facility] US OB LESS THAN 14 WEEKS SIN GLE OR FIRST GESTATION W DOPPLEROrdered By: Keyur Benavides on 12-02-2024 [facility] Work Phone: Urinalysison 12-02-2024 Bilirubin Ql (U) Negative NEGATIVE [facility] Seco urs [facility] Clarity (U) Clear Clear [facility] Color (U) Yellow Yellow [facility] [facility] Glucose Test strip (U) [Mass/Vol] Negative NEGATIVE mg/dL [facility] Hemoglobin Auto test strip Ql (U) Negative NEGATIVE [facility] Interpretation and review of laboratory results Abnormal [facility] Ketones (U) [Mass/Vol] Negative NEGATIVE mg/dL [facility] Leukocyte esterase Test strip Ql (U) MODERATE Abnormal NEGATIVE [facility] Nitrite Ql (U) Negative NEGATIVE [place] [facility] pH (U) 7.5 [pH] 5.0 - 9.0 [facility] Protein (U) [Mass/Vol] Negative NEGATIVE mg/dL [facility] Specific gravity (U) [Rel density] 1.025 High 1.010 - 1.020 [facility] Urobilinogen Qn (U) Normal 0.0 - 1. 0 EU/dL [facility] Urinalysis, Routineon 2024 Bilirubin, SemiQt,Ur Negative Normal NEG [facility] Comment on above: Performed By: #### U A, UMICAO #### [facility] [address] [place] [address] Watch Case Polisher: Nandini Acevedo MD Blood, Urine Negative Normal NEG [facility] Comment on above: Performed By: #### U A, UMICAO #### [facility] [address] [place] [address] Watch Case Polisher: Nandini Acevedo MD Clarity (U) Clear Normal CLEAR [facility] Comment on above: Performed By: #### U A, UMICAO #### [facility] [address] [place] [address] Watch Case Polisher: Nandini Acevedo MD Color (U) Yellow Normal YEL [facility] Comment on above: Performed By: #### U A, UMICAO #### [facility] [address] [place], [place] [address] Watch Case Polisher: Nandini Acevedo MD Glucose Ql (U) Negative Normal NEG [facility] Comment on above: Performed By: #### U A, UMICAO #### [facility] [address] [place] [address] Watch Case Polisher: Nandini Acevedo MD Ketones Ql (U) Negative Normal NEG [facility] Comment on above: Performed By: #### U A, UMICAO #### [facility] [address] [place] [address] Dr[address] [place], [place] [address]83 Watch Case Polisher: Nandini Acevedo MD Leukocyte esterase Test strip Ql (U) MODERATE Abnormal NEG [facility] Comment on above: Performed By: #### U A, UMICAO #### [facility] [address] [place] [address] [place] [address] Watch Case Polisher: Nandini Acevedo MD Nitrite,Ur Negative Normal NEG [facility] Comment on above: Performed By: #### U A, UMICAO #### [facility] [address] [place] [address] [place] [address] Watch Case Polisher: Nandini Acevedo MD PH,Ur 7.5 Normal 5.0-9.0 [facility] Comment on above: Performed By: #### U A, UMICAO #### [facility] [address] [place], [place] [address]83 Watch Case Polisher: Nandini Acevedo MD Protein Ql (U) Negative Normal NEG [facility] Comment on above: Performed By: #### U A, UMICAO #### [facility] [address] [place], [place] [address]83 Watch Case Polisher: Nandini Acevedo MD Spec. Nichols,Ur 1.025 High 1.010-1.020 [facility] Comment on above: Performed By: #### U A, ORALIAICAO #### [facility] [address] [place] [address] Watch Case Polisher: Nandini Acevedo MD Urobilinogen,Ur Normal Normal 0.0-1.0 [facility] Comment on above: Performed By: #### U A, UMICAO #### [facility] [address] [place] [address] Dr[place], [place] 5537483 Watch Case Polisher: Nandini Acevedo MD Urinalysis,Microon 5 Amorphous sediment LM Ql (Urine sed) 2+ Abnormal NONE [facility] Comment on above: Performed By: #### U A, ORALIAICAO #### [address] [place], [place] [address]83 Watch Case Polisher: Nandini Acevedo MD Epithelial cells LM Ql (Urine sed) 0 TO 2 Normal 0-25 [facility] Comment on above: Performed By: #### U AYOLANDAO #### [facility] [address] [place] [address] Dr[address] [place], [place] 3534983 Watch Case Polisher: Nandini Acevedo MD Urine RBC's 0 TO 2 Normal 0-2 [facility] Comment on above: Performed By: #### U AYOLANDAO #### [facility] [address] [place] [address] Dr[address] [place], [place] 65[address]683 Watch Case Polisher: Nandini Acevedo MD Urine WBC's 2 TO 5 Normal 0-5 [facility] Comment on above: Performed By: #### U AORALIAICAO #### [facility] [address] [place] [address] [place] [address] Watch Case Polisher: Nandini Acevedo MD HCG ( test) Ql (U)o n 11-03-2024 Interpretation and review of laboratory results Abnormal [facility] re Preg Test, Ur Positive Negative [facility] e Urinalysis macro (dipstick) panel (U)on 11-03-2024 Bilirubin, UA Negative Negative - 4(70) +++ mg/dL [facility] Blood, UA Negative Negative - 50 Issac/mcL [facility] Clarity, UA Clear [facility] re Color, UA Yellow [facility] e Glucose, UA Negative Negative - 1999(110) ++++ mg/dL [facility] Interpretation and review of laboratory results Normal [facility] Ketones, UA Negative Negative - 160(16) ++++ mg/dL [facility] Leukocytes, UA Negative Negative - 500+++ Christo/mcL [facility] Nitrite, UA Negative Negative - Positive [facility] pH, UA 5 5 - 9 [facility] Protein, UA Negative Negative - 1999(20) ++++ mg/dL [facility] Spec Grav, UA 1.03 1 - 1.03 [facility] Urobilinogen, UA 1.0 0.2 - 12 mg/dL [facility] e ALL CBC WITH AUTO DIFFon BASOPHILS ABSOLUTE AUTO 0 [facility] Basophils/100 WBC (Bld) 0.5 % 0.2 - 2.0 % [facility] Eosinophils/100 WBC (Bld) 1.9 % 0.9 - 7.0 % [facility] Erythrocyte distribution width (RBC) [Ratio] 12.1 % 11.0 - 15.0 % [facility] Hematocrit (Bld) [Volume fraction] 40.1 % 36.0 - 48.0 % [facility] e Hemoglobin (Bld) [Mass/Vol] 13.5 g/dL 12.0 - 16.0 g/dL [facility] IMMATURE GRANULOCYTES ABS AUTO 0.03 [facility] Immature granulocytes/100 WBC (Bld) 0.4 % 0.0 - 0.5 % [facility] Interpretation and review of laboratory results Abnormal [facility] re LYMPHOCYTES ABSOLUTE AUTO 1.7 [facility] Lymphocytes/100 WBC (Bld) 23.9 % 20.5 - 60.0 % [facility] MCH (RBC) [Entitic mass] 30.3 pg 26.7 - 34.0 pg [facility] MCHC (RBC) [Mass/Vol] 33.7 g/dL 29.9 - 35.2 g/dL [facility] MCV (RBC) [Entitic vol] 90.1 fL 81.0 - 99.0 fL [facility] MONOCYTES ABSOLUTE AUTO 0.5 [facility] Monocytes/100 WBC (Bld) 7.4 % 1.7 - 12.0 % [facility] NEUTROPHILS ABSOLUTE AUTO 4.8 [facility] Neutrophils/100 WBC (Bld) 65.9 % 43.0 - 75.0 % [facility] Platelet mean volume (Bld) [Entitic vol] 8.7 fL Low 9.5 - 13.5 fL [facility] EO # 0.1 [facility] PLT 299 [facility] RBC 4.45 [facility] WBC 7.3 [facility] CLINISYNC [facility] Screenson 05-11-2024 Screens [id number]# 1.00TIFF Normal [facility] Ambulatory Visit Summaryon 0 2024 Ambulatory Visit Summary PETE ROSALIE Rivera :1995 Visit Date:2024 Ambulatory Visit Instructions [...] PM EDT With: Yonis MIRANDA MD Where: [facility] General Surgery Aniyah Normal [facility] Patient Educationon 05-10-20 Patient Education Caregiving [...] Follow these instructions at home: ? Take mlvd-cvr-yysgbog and prescription medicines as told by your [...] worse. (more content not included)... Normal [facility] Urology Office/Clinic Noteon 2024 Urology Office/Clinic [...] back normal. 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 Also had a difficult PO recovery and had a CT scan done in the ER which indicated her Mirena is not in the correct spot. States she plans to f/u with her link machine operator. 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 [address] [phone] Additional Instructions: 6 mos (no labs) Patient [...] virus vaccine, (more content not included)... Normal [facility] Comment on above: Result Comment: Elec tronically Signed By: JANNETH SMITH PA-C\.br\Date and Time Signed: 05/10/24 09:55 EDT\.br\Electronically Co-Signed By: Ondina Parra\.br\Date and Time Co-Signed: 05/10/24 09:51 EDT Outside Colonoscopyon 2023 Outside Colonoscopy [id number]#1. 00TIFF [facility] Lab Reportson 04-28-2024 Lab Reports [id number]#1 .00TIFF [facility] Consent for Procedure/Surger yon 03-09-2024 Consent for Procedure/Surgery [id number]#1 .00TIFF [facility] Ambulatory Visit Summaryon 0 03-08-2024 Ambulatory Visit Summary ROSALIE RODRÍGUEZ V :1995 Visit Date:03/08/2024 Ambulatory Visit Instructions Your Care Team Attending Physician - RUTH CLARK, Yonis Mckenzie Primary Care Physician - Beena CLARK, Melodie Referring Physician - Melodie Ashton [...] JANNETH SMITH PA-C Where: [facility] Physician Referralon Physician Referral [id number]#1 .00TIFF [facility] Physician Referralon 024 Physician Referral [id number]#1 .00TIFF [facility] Consent for Procedure/Surger yon 02-09-2024 Consent for Procedure/Surgery [id number]# 1.00TIFF [facility] Consent for Treatmenton 01-21 Consent for Treatment [id number]#1 .00TIFF [facility] IntraOperative Documentson 0 02-09-2024 IntraOperative Documents [id number]# 1.00TIFF Normal [facility] Main OR Intraoperative Recor don 02-09-2024 Main OR Intraoperative Record IntraOp Document Type FTURO Summary Primary Physician: Dieter REMY MD Finalized Date/Time: 02/09/24 08:32:09 Pt. Name: RODRÍGUEZROSALIE/Sex: 1995 Female Med Rec #: [id number] Physician: Dieter REMY MD Financial #: [id number] Pt. Type: O Room/Bed: / Admit/Disch: 02/09/24 [...] Bianca Quesada Role Performed Surgeon - Primary Research Associate Professor - Primary Scrub - Primary Time In [...] GIUSEPPE Rushing RN, Ruthann 02/09/24 08:32 Normal [facility] Main OR Preoperative Recordo n 02-09-2024 Main OR Preoperative Record Holding Area Document Type FTURO Summary Primary Physician: Dieter REMY MD Finalized Date/Time: 02/09/24 08:08:52 Pt. Name: ASHLEE RODRÍGUEZRonnie Martin/Sex: 1995 Female Med Rec #: [id number] Physician: Dieter REMY MD Financial #: [id number] Pt. Type: O Room/Bed: / Admit/Disch: 02/09/24 [...] Rushing RN, Ruthann Document Signatures Signed By: Сергей VALENZUELA, Sangita CHIN 02/09/24 08:08 Normal [facility] Operative Reporton Operative Report Patient: ASHLEE [...] her recurrent urinary tract infections.. Normal [facility] Comment on above: Result Comment: Elec tronically Signed By: Dieter REMY MD\.br\Date and Time Signed: 02/09/24 08:36 EDT Outpatient Surgery Discharge Instructionon 02-09-2024 Outpatient Surgery Discharge Instruction [id number]# 1.00TIFF Normal [facility] RAD - MISCon 01-29-2024 RAD - MISC [id number]#1 .00TIFF [facility] C Urineon 01-21-2024 Bacteria identified Cx Nom [...] Locations R1: This test was performed at: [facility], [address] [place] [address], [facility]- , , [facility] Comment on above: Performed By: #### 2 [id number] ####[facility] [address] [place] [address] RAD - Ultrasound Reporton RAD - Ultrasound Report [id number]# 1.00TIFF [facility] Screenson 01-21-2024 Screens [id number]#1 .00TIFF [facility] Ambulatory Visit Summaryon 0 01-19-2024 Ambulatory Visit [...] LUIS STEPHENS, RASHMI HARPER When: Where: [address] [facility] [address] Medications What How Much When Instructions New sulfamethoxazole-trim ethoprim (Bactrim 400 mg-80 mg Tab) 1 Tablets By Mouth Every day as needed for UTI prevention Refills: 3 Pickup at [facility]/pharmacy #[id number] Unchanged guanfacine (guanfacine 3 mg [...] physician if questions or concerns Pharmacy Information [facility]/pharmacy #[id number]: [address], [place] [phone] Allergies No Known Allergies No Known Medication [...] urinati (more content not included)... Normal [facility] Patient Educationon 01-19-20 24 Patient Education [...] this condition includes: ? Antibiotic medicine. ? Layy-owm-yeutljd medicines to treat discomfort. ? Drinking enough [...] these instructions at home: Medicines ? Take fwmt-zgk-wulzmhh and prescription medicines only as told by [...] Revie (more content not included)... Normal [facility] BNPon 04-17-2023 Natriuretic peptide B (Bld) [Mass/Vol] 246.0 pg/mL Normal <=450.0 [facility] Comment on above: Performed By: #### I NSULIN #### [facility] [address] [address] [address] Saray Souza CARDIAC NELI ADMITon 023 CK [Catalytic activity/Vol] 47 U/L Normal 26-192 [facility] Comment on above: Performed By: #### I NSULIN #### [facility] [address] [place] [address] Dr. Saray Souza CK.MB [Mass/Vol] 1.02 ng/mL Normal <=3.[address] [facility] Comment on above: Performed By: #### I NSULIN #### [facility] [address] [place] [address] Dr. Saray Souza HSTROP 4.5 pg/mL Normal 4.0-51.3 [facility] Comment on above: Result Comment: CUT- OFF POINTS HAVE BEEN ESTABLISHED BASED ON THE FOURTH UNIVERSAL DEFINITIONS OF MYOCARDIAL INFARCTION. THE UPPER REFERENCE LIMIT (URL) OF TROPONIN, DEFINED THE 99TH PERCENTILE OF cTnI DISTRIBUTION IN A REFERENCE POPULATION, HAS BEEN CONFIRMED THE DECISION THRESHOLD FOR UT DIAGNOSIS. Performed By: #### I NSULIN #### [facility] [address] [place] [address] Dr. Saray Souza FRANKLIN 36 ng/mL Normal 9-82 [facility] Comment on above: Performed By: #### I CURLYULIN #### [facility] [address] [place] [address] Dr. Saray Souza CBC W MANUAL DIFFon 04-17-20 23 ATYPICAL LYMPH # Normal [facility] Comment on above: Performed By: #### C BCMAN #### [facility] [address] [place] [address] Dr. Saray Souza ATYPICAL LYMPH % Normal [facility] Comment on above: Performed By: #### C BCMAN #### [facility] [address] [place] [address] Dr. Saray Souza BAND # 0.3 103/ul Normal 0.0-0.3 [facility] Comment on above: Performed By: #### C EDGARDO #### [facility] [address] [place] [address] Dr. Saray Souza BAND % 1 % Normal 0-5 [facility] Comment on above: Performed By: #### C EDGARDO #### [facility] [address] [address] [address] Saray Souza BASOM # 0.00 103/ul Normal 0.00-0.10 [facility] Comment on above: Performed By: #### C EDGARDO #### [facility] [address] [address] [address] Saray Souza BASOM % 0.0 % Critically low 0.2-2.0 [facility] Comment on above: Performed By: #### C EDGARDO #### [facility] [address] [place] [address] Dr. Saray Souza BLAST # Normal [facility] Comment on above: Performed By: #### C EDGARDO #### [facility] [address] [place] [address] Dr. Saray Souza BLAST % Normal [facility] Comment on above: Performed By: #### C EDGARDO #### [facility] [address] [place] [address] Dr. Saray Souza CORRECTED WBC Normal 4.0-11.0 [facility] Comment on above: Performed By: #### C EDGARDO #### [facility] [address] [place] [address] Dr. Saray Souza EOS # 0.00 103/ul Normal 0.00-0.70 [facility] Comment on above: Performed By: #### C EDGARDO #### [facility] [address] [place] [address] Dr. Saray Souza EOS% 0.0 % Critically low 0.9-7.0 [facility] Comment on above: Performed By: #### C EDGARDO #### [facility] [address] [place] [address] Dr. Saray Souza HCT 43.6 % Normal 36.0-48.0 [facility] Comment on above: Performed By: #### C EDGARDO #### [facility] [address] [place] [address] Dr. Saray Souza HGB 14.7 g/dl Normal 12.0-16.0 [facility] Comment on above: Performed By: #### C EDGARDO #### [facility] [address] [address] [address] Saray Souza LYMPHM # 1.55 103/ul Normal 1.20-3.80 [facility] Comment on above: Performed By: #### C EDGARDO #### [facility] [address] [address] [address] Saray Souza LYMPHM% 6.0 % Critically low 20.5-60.0 [facility] Comment on above: Performed By: #### C EDGARDO #### [facility] [address] [place] [address] Dr. Saray Souza MCH 30.3 pg Normal 26.7-34.0 [facility] Comment on above: Performed By: #### C EDGARDO #### [facility] [address] [address] [address] Saray Souza MCHC 33.7 g/dl Normal 29.9-35.2 [facility] Comment on above: Performed By: #### C EDGARDO #### [facility] [address] [place] [address] Dr. Saray Souza MCV 89.9 fL Normal 81.0-99.0 [facility] Comment on above: Performed By: #### C EDGARDO #### [facility] [address] [place] [address] Dr. Saray Souza METAMYELOCYTE # Normal [facility] Comment on above: Performed By: #### C EDGARDO #### [facility] [address] [address] [address] Saray Souza METAMYELOCYTE % Normal [facility] Comment on above: Performed By: #### C EDGARDO #### [facility] [address] [address] [address] Saray Souza MONOM# 2.06 103/ul Critically high 0.30-0.80 [facility] Comment on above: Performed By: #### C EDGARDO #### [facility] [address] [address] [address] Saray Souza MONOM% 8.0 % Normal 1.7-12.0 [facility] Comment on above: Performed By: #### C EDGARDO #### [facility] [address] [address] [address] Saray Souza MPV 8.8 fL Critically low 9.5-13.5 [facility] Comment on above: Performed By: #### C EDGARDO #### [facility] [address] [address] [address] Saray Souza MYELOCYTE # Normal [facility] Comment on above: Performed By: #### C EDGARDO #### [facility] [address] [place] [address] Dr. Saray Souza MYELOCYTE % Normal [facility] Comment on above: Performed By: #### Sweetie REYNOSO #### [facility] [address] [place] [address] Dr. Saray Souza NRBC Normal [facility] Comment on above: Performed By: #### C EDGARDO #### [facility] [address] [address] [address] Saray Souza PLT 397 103/ul Normal 150-450 [facility] Comment on above: Performed By: #### C EDGARDO #### [facility] [address] [place] [address] Dr. Saray Souza RBC 4.85 106/ul Normal 4.20-5.40 [facility] Comment on above: Performed By: #### C EDGARDO #### [facility] [address] [address] [address] Saray Souza RDW 12.0 % Normal 11.0-15.0 [facility] Comment on above: Performed By: #### C EDGARDO #### [facility] [address] [address] [address] Saray Souza SEG # 21.93 103/ul Critically high 1.40-6.50 [facility] Comment on above: Performed By: #### C EDGARDO #### [facility] [address] [place] [address] Dr. Saray Souza SEG % 85.0 % Critically high 43.0-75.0 [facility] Comment on above: Performed By: #### C BCMAN #### [facility] [address] [place] [address] Dr. Saray Souza WBC 25.8 103/ul Critically high 4.0-11.0 [facility] Comment on above: Performed By: #### C BCMAN #### [facility] [address] [place] [address] Dr. Saray Souza CULTURE URINEon 04-17-2023 CULTURE URINE Culture Observations : LORENZO TO FOLLOW. Isolate 1 Enterococcus faecalis 20,000 cfu/mL of Normal [facility] Comment on above: Performed By: #### C BC #### [facility] [address] [place] [address] Dr. Saray Souza ER URINE PROFILEon 3 Bilirubin Ql (U) Negative Normal NEGATIVE [facility] Comment on above: Performed By: #### C BC #### [facility] [address] [place] [address] Dr. Saray Souza Clarity (U) CLEAR Normal CLEAR [facility] Comment on above: Performed By: #### C BC #### [facility] [address] [place] [address] Dr. Saray Souza Color (U) LT. YELLOW Normal YELLOW [facility] Comment on above: Performed By: #### C BC #### [facility] [address] [place] [address] Dr. Saray JHA A micrscopic examination will be performed if indicated. Normal [facility] Comment on above: Performed By: #### C BC #### [facility] [address] [place] [address] Dr. Saray Souza Glucose Ql (U) Negative Normal NEGATIVE [facility] Comment on above: Performed By: #### C BC #### [facility] [address] [place] [address] Dr. Saray Souza Hemoglobin Ql (U) Negative Normal NEGATIVE [facility] Comment on above: Performed By: #### C BC #### [facility] [address] [place] [address] Dr. Saray Souza Ketones Ql (U) Negative Normal NEGATIVE [facility] Comment on above: Performed By: #### C BC #### [facility] [address] [place] [address] Dr. Saray Souza LEUKOCYTES SMALL Abnormal NEGATIVE [facility] Comment on above: Performed By: #### C BC #### [facility] [address] [place] [address] Dr. Saray Souza Nitrite Ql (U) Negative Normal NEGATIVE [facility] Comment on above: Performed By: #### C BC #### [facility] [address] [place] [address] Dr. Saray Souza pH (U) 6.5 [pH] Normal 5-9 [facility] Comment on above: Performed By: #### C BC #### [facility] [address] [place] [address] Dr. Saray Souza SPEC GRAVITY 1.025 Normal 1.005-<=1.025 [facility] Comment on above: Performed By: #### C BC #### [facility] [address] [place] [address] Dr. Saray Souza UA PROTEIN Negative Normal NEGATIVE/ TRACE [facility] Comment on above: Performed By: #### C BC #### [facility] [address] [place] [address] Dr. Saray Souza UR MICRO IND INDICATED Normal [facility] Comment on above: Performed By: #### C BC #### [facility] [address] [place] [address] Dr. Saray Souza Urobilinogen Qn (U) 0.2 {Janine'U}/dL Normal 0.2 - 1. 0 [facility] Comment on above: Performed By: #### C BC #### [facility] [address] [place] [address] Dr. Saray Souza URon 04-17-2023 , QUAL Negative Normal NEGATIVE [facility] Comment on above: Performed By: #### C BC #### [facility] [address] [address] [address] Saray Souza PROF 14(COMP METB)on 023 Albumin [Mass/Vol] 3.0 g/dL Critically low 3.4-5.0 [facility] Comment on above: Performed By: #### I NSULIN #### [facility] [address] [address] [address] Saray Souza Albumin/Globulin [Mass ratio] 0.9 {ratio} Normal [facility] Comment on above: Performed By: #### I NSULIN #### [facility] [address] [place] [address] Dr. Saray Souza ALP [Catalytic activity/Vol] 54 U/L Normal 46-116 [facility] Comment on above: Performed By: #### I NSULIN #### [facility] [address] [place] [address] Dr. Saray Souza ALT [Catalytic activity/Vol] 27 U/L Normal 14-59 [facility] Comment on above: Performed By: #### I NSULIN #### [facility] [address] [place] [address] Dr. Saray Souza Anion gap [Moles/Vol] 12.9 mmol/L Normal [facility] Comment on above: Performed By: #### I NSULIN #### [facility] [address] [place] [address] Dr. Saray Souza AST [Catalytic activity/Vol] 12 U/L Critically low 15-37 [facility] Comment on above: Performed By: #### I NSULIN #### [facility] [address] [place] [address] Dr. Saray Souza Bilirubin [Mass/Vol] 0.3 mg/dL Normal 0.2-1.0 [facility] Comment on above: Performed By: #### I NSULIN #### [facility] [address] [place] [address] Dr. Saray Souza Calcium [Mass/Vol] 8.1 mg/dL Critically low 8.5-10.1 [facility] Comment on above: Performed By: #### I NSULIN #### [facility] [address] [address] [address] Saray Souza Chloride [Moles/Vol] 102 mmol/L Normal 98-107 [facility] Comment on above: Performed By: #### I NSULIN #### [facility] [address] [address] [address] Saray Souza CO2 [Moles/Vol] 26.2 mmol/L Normal 21.0-32.0 [facility] Comment on above: Performed By: #### I NSULIN #### [facility] [address] [address] [address] Saray Souza Creatinine [Mass/Vol] 0.87 mg/dL Normal 0.55-1.02 [facility] Comment on above: Performed By: #### I NSULIN #### [facility] [address] [place] [address] Dr. Saray Souza EGFR-AF CAMEROONIAN >60 Normal >=60 [facility] Comment on above: Performed By: #### I NSULIN #### [facility] [address] [place] [address] Dr. Saray Souza EGFR-NON AF CAMEROONIAN >60 Normal >=60 [facility] Comment on above: Performed By: #### I NSULIN #### [facility] [address] [address] [address] Saray Souza Globulin (S) [Mass/Vol] 3.2 g/dL Normal [facility] Comment on above: Performed By: #### I NSULIN #### [facility] [address] [address] [address] Saray Souza Glucose [Mass/Vol] 206 mg/dL Critically high 74-106 [facility] Comment on above: Performed By: #### I NSULIN #### [facility] [address] [place] [address] Dr. Saray Souza Potassium [Moles/Vol] 4.1 mmol/L Normal 3.5-5.1 [facility] Comment on above: Performed By: #### I NSULIN #### [facility] [address] [place] [address] Dr. Saray Souza Protein [Mass/Vol] 6.2 g/dL Critically low 6.4-8.2 Th [facility] Comment on above: Performed By: #### I NSULIN #### [facility] [address] [place] [address] Dr. Saray Souza Sodium [Moles/Vol] 137 mmol/L Normal 136-145 [facility] Comment on above: Performed By: #### I NSULIN #### [facility] [address] [place] [address] Dr. Saray Souza Urea nitrogen [Mass/Vol] 19.0 mg/dL Critically high 7.0-18.0 [facility] Comment on above: Performed By: #### I NSULIN #### [facility] [address] [place] [address] Dr. Saray Souza Urea nitrogen/Creatinine [Mass ratio] 21.8 mg/mg Normal [facility] Comment on above: Performed By: #### I NSULIN #### [facility] [address] [place] [address] Dr. Saray Souza TSHon 04-17-2023 TSH 0.553 uIU/mL Normal 0.358-3.740 [facility] Comment on above: Performed By: #### I NSULIN #### [facility] [address] [place] [address] Dr. Saray Souza URINE MICROSCOPIC ONLYon BACTERIA TRACE Abnormal NONE SEEN [facility] Comment on above: Performed By: #### C BC #### [facility] [address] [place] [address] Dr. Saray Souza Bacteria identified Cx Nom (U) INDICATED Normal [facility] Comment on above: Performed By: #### C BC #### [facility] [address] [place] [address] Dr. Saray Souza CAST NONE SEEN Normal NONE SEEN [facility] Comment on above: Performed By: #### C BC #### [facility] [address] [place] [address] Dr. Saray Suoza Crystals LM Nom (Urine sed) NONE SEEN Normal NONE SEEN [facility] Comment on above: Performed By: #### C BC #### [facility] [address] [place] [address] Dr. Saray Souza Epithelial cells LM Ql (Urine sed) RARE Normal NONE SEEN /RARE [facility] Comment on above: Performed By: #### C BC #### [facility] [address] [place], [place] [id number] Dr. Saray Souza MUCOUS NONE SEEN Normal NONE SEEN [facility] Comment on above: Performed By: #### C BC #### [facility] [address] [place], [place] [id number] Dr. Saray Souza RBC 0-2 Normal 0-2 [facility] Comment on above: Performed By: #### C BC #### [facility] [address] [place] [address] Dr. Saray Souza WBC 5-10 Abnormal NONE SEEN The [facility] Comment on above: Performed By: #### C BC #### [facility] [address] [place] [address] Dr. Saray Souza XR CHEST 2 Von [...] Date: 2023-04-17 10:45 Normal [facility] INSULINon 04-07-2023 Insulin 11.3 uIU/mL Normal 2.6-24.9 [facility] Comment on above: Performed By: #### I NSULIN #### [facility] [address] [place], [place] [id number] Dr. Saray Souza US KIDNEYS BLADDERon 023 [...] Date: 2023-04-04 08:22 Normal [facility] INSULINon 04-02-2023 Insulin 37.5 uIU/mL Critically high 2.6-24.[address] [facility] Comment on above: Performed By: #### I NSULIN #### [facility] [address] [place] [address] Dr. Saray Souza CBC AUTO DIFFon 04-01-2023 BASO # 0.0 103/ul Normal 0.0-0.1 [facility] Comment on above: Performed By: #### C BC #### [facility] [address] [place] [address] Dr. Saray Souza Basophils/100 WBC (Bld) 0.5 % Normal 0.2-2.0 [facility] Comment on above: Performed By: #### C BC #### [facility] [address] [place] [address] Dr. Saray Souza EO # 0.2 103/ul Normal 0.0-0.7 [facility] Comment on above: Performed By: #### C BC #### [facility] [address] [place] [address] Dr. Saray Souza Eosinophils/100 WBC (Bld) 2.3 % Normal 0.9-7.0 [facility] Comment on above: Performed By: #### C BC #### [facility] [address] [place] [address] Dr. Saray Souza Erythrocyte distribution width (RBC) [Ratio] 11.9 % Normal 11.0-15.0 [facility] Comment on above: Performed By: #### C BC #### [facility] [address] [place] [address] Dr. Saray Souza Hematocrit (Bld) [Volume fraction] 42.2 % Normal 36.0-48.0 [facility] Comment on above: Performed By: #### C BC #### [facility] [address] [place] [address] Dr. Saray Souza Hemoglobin (Bld) [Mass/Vol] 13.7 g/dL Normal 12.0-16.0 [facility] Comment on above: Performed By: #### C BC #### [facility] [address] [place] [address] Dr. Saray Souza IG # 0.02 10e3/ul Normal 0.00-0.03 [facility] Comment on above: Performed By: #### C BC #### [facility] [address] [place] [address] Dr. Saray Souza IG % 0.3 % Normal 0.0-0.5 [facility] Comment on above: Performed By: #### C BC #### [facility] [address] [place] [address] Dr. Saray Souza LYMPH # 1.6 103/ul Normal 1.2-3.8 [facility] Comment on above: Performed By: #### C BC #### [facility] [address] [place] [address] Dr. Saray Souza Lymphocytes/100 WBC (Bld) 21.5 % Normal 20.5-60.0 [facility] Comment on above: Performed By: #### C BC #### [facility] [address] [place] [address] Dr. Saray Souza MANUAL DIFF REQ NO Normal [facility] Comment on above: Performed By: #### C BC #### [facility] [address] [place] [address] Dr. Saray Souza MCH (RBC) [Entitic mass] 30.0 pg Normal 26.7-34.0 [facility] Comment on above: Performed By: #### C BC #### [facility] [address] [place] [address] Dr. Saray Souza MCHC (RBC) [Mass/Vol] 32.5 g/dL Normal 29.9-35.2 [facility] Comment on above: Performed By: #### C BC #### [facility] [address] [place] [address] Dr. Saray Souza MCV (RBC) [Entitic vol] 92.5 fL Normal 81.0-99.0 [facility] Comment on above: Performed By: #### C BC #### [facility] [address] [place] [address] Dr. Saray Souza MONO # 0.7 103/ul Normal 0.3-0.8 [facility] Comment on above: Performed By: #### C BC #### [facility] [address] [place] [address] Dr. Saray Souza Monocytes/100 WBC (Bld) 9.6 % Normal 1.7-12.0 [facility] Comment on above: Performed By: #### C BC #### [facility] [address] [place] [address] Dr. Saray Souza NEUT # 5.0 103/ul Normal 1.4-6.5 [facility] Comment on above: Performed By: #### C BC #### [facility] [address] [place] [address] Dr. Saray Souza Neutrophils/100 WBC (Bld) 65.8 % Normal 43.0-75.0 [facility] Comment on above: Performed By: #### C BC #### [facility] [address] [place] [address] Dr. Saray Souza Platelet mean volume (Bld) [Entitic vol] 8.9 fL Critically low 9.5-13.5 [facility] Comment on above: Performed By: #### C BC #### [facility] [address] [place] [address] Dr. Saray Souza PLT 293 103/ul Normal 150-450 [facility] Comment on above: Performed By: #### C BC #### [facility] [address] [place] [address] Dr. Saray Souza RBC 4.56 106/ul Normal 4.20-5.40 [facility] Comment on above: Performed By: #### C BC #### [facility] [address] [place] [address] Dr. Saray Suoza WBC 7.5 103/ul Normal 4.0-11.0 [facility] Comment on above: Performed By: #### C BC #### [facility] [address] [place] [address] Dr. Saray Souza CULTURE URINEon 04-01-2023 CULTURE URINE Culture Observations : MODERATE GROWTH OF MIXED GENITAL CARMELO. NO POTENTIAL PATHOGENS SEEN. Normal [facility] Comment on above: Performed By: #### C BC #### [facility] [address] [place] [address] Dr. Saray Souza FREE THYROXINE INDEX T7on FTI 2.51 Normal 1.30-4.50 [facility] Comment on above: Performed By: #### I NSULIN #### [facility] [address] [place] [address] Dr. Saray Souza T3U 33.0 % Normal 30.0-39.0 [facility] Comment on above: Performed By: #### I NSULIN #### [facility] [address] [place] [address] Dr. Saray Souza T4 [Mass/Vol] 7.60 ug/dL Normal 4.80-13.90 [facility] Comment on above: Performed By: #### I NSULIN #### [facility] [address] [place] [address] Dr. Saray Souza IRONon 04-01-2023 Iron [Mass/Vol] 151.0 ug/dL Normal 50.0-170.0 [facility] Comment on above: Performed By: #### C BCMAN #### [facility] [address] [place] [address] Dr. Saray Souza PROF 14(COMP METB)on 023 Albumin [Mass/Vol] 3.7 g/dL Normal 3.4-5.0 [facility] Comment on above: Performed By: #### C EDGARDO #### [facility] [address] [place] [address] Dr. Saray Souza Albumin/Globulin [Mass ratio] 1.1 {ratio} Normal [facility] Comment on above: Performed By: #### C EDGARDO #### [facility] [address] [address] [address] Saray Souza ALP [Catalytic activity/Vol] 81 U/L Normal 46-116 [facility] Comment on above: Performed By: #### C EDGARDO #### [facility] [address] [place] [address] Dr. Saray Souza ALT [Catalytic activity/Vol] 33 U/L Normal 14-59 [facility] Comment on above: Performed By: #### C EDGARDO #### [facility] [address] [place] [address] Dr. Saray Souza Anion gap [Moles/Vol] 10.2 mmol/L Normal [facility] Comment on above: Performed By: #### C EDGARDO #### [facility] [address] [place] [address] Dr. Saray Souza AST [Catalytic activity/Vol] 22 U/L Normal 15-37 [facility] Comment on above: Performed By: #### C EDGARDO #### [facility] [address] [place] [address] Dr. Saray Souza Bilirubin [Mass/Vol] 0.3 mg/dL Normal 0.2-1.0 [facility] Comment on above: Performed By: #### C EDGARDO #### [facility] [address] [place] [address] Dr. Saray Souza Calcium [Mass/Vol] 8.6 mg/dL Normal 8.5-10.1 [facility] Comment on above: Performed By: #### C EDGARDO #### [facility] [address] [place] [address] Dr. Saray Souza Chloride [Moles/Vol] 105 mmol/L Normal 98-107 [facility] Comment on above: Performed By: #### C EDGARDO #### [facility] [address] [address] [address] Saray Souza CO2 [Moles/Vol] 30.4 mmol/L Normal 21.0-32.0 [facility] Comment on above: Performed By: #### C EDGARDO #### [facility] [address] [address] [address] Saray Souza Creatinine [Mass/Vol] 0.72 mg/dL Normal 0.55-1.02 [facility] Comment on above: Performed By: #### C EDGARDO #### [facility] [address] [place] [address] Dr. Saray Souza EGFR-AF CAMEROONIAN >60 Normal >=60 [facility] Comment on above: Performed By: #### C EDGARDO #### [facility] [address] [place] [address] Dr. Saray Souza EGFR-NON AF CAMEROONIAN >60 Normal >=60 [facility] Comment on above: Performed By: #### C EDGARDO #### [facility] [address] [place] [address] Dr. Saray Souza Globulin (S) [Mass/Vol] 3.5 g/dL Normal [facility] Comment on above: Performed By: #### C EDGARDO #### [facility] [address] [place] [address] Dr. Saray Souza Glucose [Mass/Vol] 89 mg/dL Normal 74-106 [facility] Comment on above: Performed By: #### C BCPRESLEY #### [facility] [address] [address] [address] Saray Souza Potassium [Moles/Vol] 3.6 mmol/L Normal 3.5-5.1 [facility] Comment on above: Performed By: #### C EDGARDO #### [facility] [address] [place] [address] Dr. Saray Souza Protein [Mass/Vol] 7.2 g/dL Normal 6.4-8.2 [facility] Comment on above: Performed By: #### C EDGARDO #### [facility] [address] [place] [address] Dr. Saray Souza Sodium [Moles/Vol] 142 mmol/L Normal 136-145 [facility] Comment on above: Performed By: #### C EDGARDO #### [facility] [address] [place] [address] Dr. Saray Souza Urea nitrogen [Mass/Vol] 12.0 mg/dL Normal 7.0-18.0 [facility] Comment on above: Performed By: #### C EDGARDO #### [facility] [address] [place] [address] Dr. Saray Souza Urea nitrogen/Creatinine [Mass ratio] 16.7 mg/mg Normal [facility] Comment on above: Performed By: #### C EDGARDO #### [facility] [address] [place] [address] Dr. Saray Souza TSHon 04-01-2023 TSH 1.708 uIU/mL Normal 0.358-3.740 [facility] Comment on above: Performed By: #### I NSULIN #### [facility] [address] [place] [address] Dr. Saray Souza UA RANDOM W/MICROSCOPICon BACTERIA SMALL Abnormal NONE SEEN [facility] Comment on above: Performed By: #### I NSULIN #### [facility] [address] [place] [address] Dr. Saray Souza Bilirubin Ql (U) Negative Normal NEGATIVE [facility] Comment on above: Performed By: #### I NSULIN #### [facility] [address] [place] [address] Dr. Saray Souza CAST NONE SEEN Normal NONE SEEN [facility] Comment on above: Performed By: #### I NSULIN #### [facility] [address] [place] [address] Dr. Saray Souza Clarity (U) CLEAR Normal CLEAR [facility] Comment on above: Performed By: #### I NSULIN #### [facility] [address] [place] [address] Dr. Saray Souza Color (U) YELLOW Normal YELLOW [facility] Comment on above: Performed By: #### I NSULIN #### [facility] [address] [place] [address] Dr. Saray Souza Crystals LM Nom (Urine sed) NONE SEEN Normal NONE SEEN [facility] Comment on above: Performed By: #### I NSULIN #### [facility] [address] [place] [address] Dr. Saray Souza Epithelial cells LM Ql (Urine sed) FEW Abnormal NONE SEEN /RARE [facility] Comment on above: Performed By: #### I NSULIN #### [facility] [address] [place] [address] Dr. Saray Souza Glucose Ql (U) Negative Normal NEGATIVE [facility] Comment on above: Performed By: #### I NSULIN #### [facility] [address] [place] [address] Dr. Saray Souza Hemoglobin Ql (U) Negative Normal NEGATIVE [facility] Comment on above: Performed By: #### I NSULIN #### [facility] [address] [place] [address] Dr. Saray Souza Ketones Ql (U) TRACE Abnormal NEGATIVE [facility] Comment on above: Performed By: #### I NSULIN #### [facility] [address] [place] [address] Dr. Saray Souza LEUKOCYTES SMALL Abnormal NEGATIVE [facility] Comment on above: Performed By: #### I NSULIN #### [facility] [address] [place] [address] Dr. Saray Souza MUCOUS NONE SEEN Normal NONE SEEN [facility] Comment on above: Performed By: #### I NSULIN #### [facility] [address] [place] [address] Dr. Saray Souza Nitrite Ql (U) Negative Normal NEGATIVE [facility] Comment on above: Performed By: #### I NSULIN #### [facility] [address] [place] [address] Dr. Saray Souza pH (U) 5.5 [pH] Normal 5-9 [facility] Comment on above: Performed By: #### I NSULIN #### [facility] [address] [place] [address] Dr. Saray Souza RBC 0-2 Normal 0-2 [facility] Comment on above: Performed By: #### I NSULIN #### [facility] [address] [address] [address] Saray Souza SPEC GRAVITY >=1.030 Abnormal 1.005-<=1.025 [facility] Comment on above: Performed By: #### I NSULIN #### [facility] [address] [place] [address] Dr. Saray Souza UA PROTEIN Negative Normal NEGATIVE/ TRACE [facility] Comment on above: Performed By: #### I NSULIN #### [facility] [address] [place] [address] Dr. Saray Souza Urobilinogen Qn (U) 0.2 {Janine'U}/dL Normal 0.2 - 1. 0 [facility] Comment on above: Performed By: #### I NSULIN #### [facility] [address] [place] [address] Dr. Saray Souza WBC 5-10 Abnormal NONE SEEN [facility] Comment on above: Performed By: #### I NSULIN #### [facility] [address] [place] [address] Dr. Saray Souza INSULINon 02-14-2023 Insulin 12.8 uIU/mL Normal 2.6-24.9 [facility] Comment on above: Performed By: #### C BC #### [facility] [address] [place] [address] Dr. Saray Souza CBC AUTO DIFFon 02-13-2023 BASO # 0.0 103/ul Normal 0.0-0.1 [facility] Comment on above: Performed By: #### C BC #### [facility] [address] [place] [address] Dr. Saray Souza Basophils/100 WBC (Bld) 0.4 % Normal 0.2-2.0 [facility] Comment on above: Performed By: #### C BC #### [facility] [address] [place] [address] Dr. Saray Souza EO # 0.1 103/ul Normal 0.0-0.7 [facility] Comment on above: Performed By: #### C BC #### [facility] [address] [place] [address] Dr. Saray Souza Eosinophils/100 WBC (Bld) 1.6 % Normal 0.9-7.0 [facility] Comment on above: Performed By: #### C BC #### [facility] [address] [place] [address] Dr. Saray Souza Erythrocyte distribution width (RBC) [Ratio] 11.9 % Normal 11.0-15.0 [facility] Comment on above: Performed By: #### C BC #### [facility] [address] [place] [address] Dr. Saray Souza Hematocrit (Bld) [Volume fraction] 41.9 % Normal 36.0-48.0 [facility] Comment on above: Performed By: #### C BC #### [facility] [address] [place] [address] Dr. Saray Souza Hemoglobin (Bld) [Mass/Vol] 13.7 g/dL Normal 12.0-16.0 [facility] Comment on above: Performed By: #### C BC #### [facility] [address] [place] [address] Dr. aSray Souza IG # 0.02 10e3/ul Normal 0.00-0.03 [facility] Comment on above: Performed By: #### C BC #### [facility] [address] [place] [address] Dr. Saray Souza IG % 0.3 % Normal 0.0-0.5 [facility] Comment on above: Performed By: #### C BC #### [facility] [address] [place] [address] Dr. Saray Souza LYMPH # 1.4 103/ul Normal 1.2-3.8 [facility] Comment on above: Performed By: #### C BC #### [facility] [address] [place] [address] Dr. Saray Souza Lymphocytes/100 WBC (Bld) 18.6 % Critically low 20.5-60.0 [facility] Comment on above: Performed By: #### C BC #### [facility] [address] [place] [address] Dr. Saray Souza MANUAL DIFF REQ NO Normal [facility] Comment on above: Performed By: #### C BC #### [facility] [address] [place] [address] Dr. Saray Souza MCH (RBC) [Entitic mass] 29.9 pg Normal 26.7-34.0 [facility] Comment on above: Performed By: #### C BC #### [facility] [address] [place] [address] Dr. Saray Souza MCHC (RBC) [Mass/Vol] 32.7 g/dL Normal 29.9-35.2 [facility] Comment on above: Performed By: #### C BC #### [facility] [address] [place] [address] Dr. Saray Souza MCV (RBC) [Entitic vol] 91.5 fL Normal 81.0-99.0 [facility] Comment on above: Performed By: #### C BC #### [facility] [address] [place] [address] Dr. Saray Souza MONO # 0.6 103/ul Normal 0.3-0.8 [facility] Comment on above: Performed By: #### C BC #### [facility] [address] [place] [address] Dr. Saray Souza Monocytes/100 WBC (Bld) 8.3 % Normal 1.7-12.0 [facility] Comment on above: Performed By: #### C BC #### [facility] [address] [place] [address] Dr. Saray Souza NEUT # 5.5 103/ul Normal 1.4-6.5 [facility] Comment on above: Performed By: #### C BC #### [facility] [address] [address] [address] Saray Souza Neutrophils/100 WBC (Bld) 70.8 % Normal 43.0-75.0 [facility] Comment on above: Performed By: #### C BC #### [facility] [address] [address] [address] Saray Souza Platelet mean volume (Bld) [Entitic vol] 9.0 fL Critically low 9.5-13.5 [facility] Comment on above: Performed By: #### C BC #### [facility] [address] [place] [address] Dr. Saray Souza PLT 271 103/ul Normal 150-450 [facility] Comment on above: Performed By: #### C BC #### [facility] [address] [place] [address] Dr. Saray Souza RBC 4.58 106/ul Normal 4.20-5.40 [facility] Comment on above: Performed By: #### C BC #### [facility] [address] [place] [address] Dr. Saray Souza WBC 7.7 103/ul Normal 4.0-11.0 [facility] Comment on above: Performed By: #### C BC #### [facility] [address] [place] [address] Dr. Saray Souza FREE THYROXINE INDEX T7on FTI 2.56 Normal 1.30-4.50 [facility] Comment on above: Performed By: #### I NSULIN #### [facility] [address] [place] [address] Dr. Saray Souza T3U 36.0 % Normal 30.0-39.0 [facility] Comment on above: Performed By: #### I NSULIN #### [facility] [address] [place] [address] Dr. Saray Souza T4 [Mass/Vol] 7.10 ug/dL Normal 4.80-13.90 [facility] Comment on above: Performed By: #### I NSULIN #### [facility] [address] [address] [address] Saray Souza IRONon 02-13-2023 Iron [Mass/Vol] 130.0 ug/dL Normal 50.0-170.0 [facility] Comment on above: Performed By: #### C BCMAN #### [facility] [address] [place] [address] Dr. Saray Souza PROF 14(COMP METB)on 023 Albumin [Mass/Vol] 3.8 g/dL Normal 3.4-5.0 [facility] Comment on above: Performed By: #### I NSULIN #### [facility] [address] [place] [address] Dr. Saray Souza Albumin/Globulin [Mass ratio] 1.2 {ratio} Normal [facility] Comment on above: Performed By: #### I NSULIN #### [facility] [address] [place] [address] Dr. Saray Souza ALP [Catalytic activity/Vol] 82 U/L Normal 46-116 [facility] Comment on above: Performed By: #### I NSULIN #### [facility] [address] [place] [address] Dr. Saray Souza ALT [Catalytic activity/Vol] 25 U/L Normal 14-59 [facility] Comment on above: Performed By: #### I NSULIN #### [facility] [address] [place] [address] Dr. Saray Souza Anion gap [Moles/Vol] 12.7 mmol/L Normal [facility] Comment on above: Performed By: #### I NSULIN #### [facility] [address] [place] [address] Dr. Saray Souza AST [Catalytic activity/Vol] 19 U/L Normal 15-37 [facility] Comment on above: Performed By: #### I NSULIN #### [facility] [address] [place] [address] Dr. Saray Souza Bilirubin [Mass/Vol] 0.3 mg/dL Normal 0.2-1.0 [facility] Comment on above: Performed By: #### I NSULIN #### [facility] [address] [address] [address] Saray Souza Calcium [Mass/Vol] 8.8 mg/dL Normal 8.5-10.1 [facility] Comment on above: Performed By: #### I NSULIN #### [facility] [address] [address] [address] Saray Souza Chloride [Moles/Vol] 101 mmol/L Normal 98-107 [facility] Comment on above: Performed By: #### I NSULIN #### [facility] [address] [address] [address] Saray Souza CO2 [Moles/Vol] 27.3 mmol/L Normal 21.0-32.0 [facility] Comment on above: Performed By: #### I NSULIN #### [facility] [address] [place] [address] Dr. Saray Souza Creatinine [Mass/Vol] 0.69 mg/dL Normal 0.55-1.02 [facility] Comment on above: Performed By: #### I NSULIN #### [facility] [address] [place] [address] Dr. Saray Souza EGFR-AF CAMEROONIAN >60 Normal >=[address] [facility] Comment on above: Performed By: #### I NSULIN #### [facility] [address] [place] [address] Dr. Saray Suoza EGFR-NON AF CAMEROONIAN >60 Normal >=60 [facility] Comment on above: Performed By: #### I NSULIN #### [facility] [address] [place] [address] Dr. Saray Souza Globulin (S) [Mass/Vol] 3.3 g/dL Normal [facility] Comment on above: Performed By: #### I NSULIN #### [facility] [address] [place] [address] Dr. Saray Souza Glucose [Mass/Vol] 83 mg/dL Normal 74-106 [facility] Comment on above: Performed By: #### I NSULIN #### [facility] [address] [place] [address] Dr. Saray Souza Potassium [Moles/Vol] 4.0 mmol/L Normal 3.5-5.1 [facility] Comment on above: Performed By: #### I NSULIN #### [facility] [address] [place] [address] Dr. Saray Souza Protein [Mass/Vol] 7.1 g/dL Normal 6.4-8.2 [facility] Comment on above: Performed By: #### I NSULIN #### [facility] [address] [place] [address] Dr. Saray Souza Sodium [Moles/Vol] 137 mmol/L Normal 136-145 [facility] Comment on above: Performed By: #### I NSULIN #### [facility] [address] [place] [address] Dr. Saray Souza Urea nitrogen [Mass/Vol] 10.0 mg/dL Normal 7.0-18.0 [facility] Comment on above: Performed By: #### I NSULIN #### [facility] [address] [place] [address] Dr. Saray Souza Urea nitrogen/Creatinine [Mass ratio] 14.5 mg/mg Normal [facility] Comment on above: Performed By: #### I NSULIN #### [facility] [address] [place] [address] Dr. Saray Souza TSHon 02-13-2023 TSH 2.745 uIU/mL Normal 0.358-3.740 [facility] Comment on above: Performed By: #### I NSULIN #### [facility] [address] [place] [address] Dr. Saray Souza AMYLASEon 02-04-2023 Amylase [Catalytic activity/Vol] 45 U/L Normal 25-115 [facility] Comment on above: Performed By: #### T SH, CMP, HSTROPN, LIPA, KELLE #### [facility] [address] [place] [address] Dr. Saray Souza CBC AUTO DIFFon 02-04-2023 BASO # 0.0 103/ul Normal 0.0-0.1 [facility] Comment on above: Performed By: #### C BC #### [facility] [address] [address] [address] Saray Souza Basophils/100 WBC (Bld) 0.4 % Normal 0.2-2.0 [facility] Comment on above: Performed By: #### C BC #### [facility] [address] [address] [address] Saray Souza EO # 0.1 103/ul Normal 0.0-0.7 [facility] Comment on above: Performed By: #### C BC #### [facility] [address] [place] [address] Dr. Saray Souza Eosinophils/100 WBC (Bld) 1.7 % Normal 0.9-7.0 [facility] Comment on above: Performed By: #### C BC #### [facility] [address] [place] [address] Dr. Saray Souza Erythrocyte distribution width (RBC) [Ratio] 12.0 % Normal 11.0-15.0 [facility] Comment on above: Performed By: #### C BC #### [facility] [address] [place] [address] Dr. Saray Souza Hematocrit (Bld) [Volume fraction] 42.3 % Normal 36.0-48.0 [facility] Comment on above: Performed By: #### C BC #### [facility] [address] [place] [address] Dr. Saray Souza Hemoglobin (Bld) [Mass/Vol] 13.9 g/dL Normal 12.0-16.0 [facility] Comment on above: Performed By: #### C BC #### [facility] [address] [place] [address] Dr. Saray Souza IG # 0.03 10e3/ul Normal 0.00-0.03 [facility] Comment on above: Performed By: #### C BC #### [facility] [address] [place] [address] Dr. Saray Souza IG % 0.4 % Normal 0.0-0.5 [facility] Comment on above: Performed By: #### C BC #### [facility] [address] [place] [address] Dr. Saray Souza LYMPH # 1.5 103/ul Normal 1.2-3.8 [facility] Comment on above: Performed By: #### C BC #### [facility] [address] [place] [address] Dr. Saray Souza Lymphocytes/100 WBC (Bld) 20.4 % Critically low 20.5-60.0 [facility] Comment on above: Performed By: #### C BC #### [facility] [address] [place] [address] Dr. Saray Souza MANUAL DIFF REQ NO Normal [facility] Comment on above: Performed By: #### C BC #### [facility] [address] [place] [address] Dr. Saray Souza MCH (RBC) [Entitic mass] 30.0 pg Normal 26.7-34.0 [facility] Comment on above: Performed By: #### C BC #### [facility] [address] [place] [address] Dr. Saray Souza MCHC (RBC) [Mass/Vol] 32.9 g/dL Normal 29.9-35.2 [facility] Comment on above: Performed By: #### C BC #### [facility] [address] [place] [address] Dr. Saray Souza MCV (RBC) [Entitic vol] 91.2 fL Normal 81.0-99.0 [facility] Comment on above: Performed By: #### C BC #### [facility] [address] [place] [address] Dr. Saray Souza MONO # 0.6 103/ul Normal 0.3-0.8 [facility] Comment on above: Performed By: #### C BC #### [facility] [address] [place] [address] Dr. Saray Souza Monocytes/100 WBC (Bld) 7.7 % Normal 1.7-12.0 [facility] Comment on above: Performed By: #### C BC #### [facility] [address] [place] [address] Dr. Saray Souza NEUT # 5.2 103/ul Normal 1.4-6.5 [facility] Comment on above: Performed By: #### C BC #### [facility] [address] [place] [address] Dr. Saray Souza Neutrophils/100 WBC (Bld) 69.4 % Normal 43.0-75.0 [facility] Comment on above: Performed By: #### C BC #### [facility] [address] [place] [address] Dr. Saray Souza Platelet mean volume (Bld) [Entitic vol] 9.0 fL Critically low 9.5-13.5 [facility] Comment on above: Performed By: #### C BC #### [facility] [address] [place] [address] Dr. Saray Souza PLT 292 103/ul Normal 150-450 [facility] Comment on above: Performed By: #### C BC #### [facility] [address] [place] [address] Dr. Saray Souza RBC 4.64 106/ul Normal 4.20-5.40 [facility] Comment on above: Performed By: #### C BC #### [facility] [address] [place] [address] Dr. Saray Souza WBC 7.5 103/ul Normal 4.0-11.0 [facility] Comment on above: Performed By: #### C BC #### [facility] [address] [place] [address] Dr. Saray Souza CULTURE URINEon 02-04-2023 CULTURE URINE Culture Observations : LIGHT GROWTH OF MIXED GENITAL CARMELO. NO POTENTIAL PATHOGENS SEEN. Normal [facility] Comment on above: Performed By: #### C BC #### [facility] [address] [place] [address] Dr. Saray Souza ER URINE PROFILEon 3 Bilirubin Ql (U) Negative Normal NEGATIVE [facility] Comment on above: Performed By: #### C BC #### [facility] [address] [place] [address] Dr. Saray Souza Clarity (U) CLEAR Normal CLEAR [facility] Comment on above: Performed By: #### C BC #### [facility] [address] [place] [address] Dr. Saray Souza Color (U) LT. YELLOW Normal YELLOW [facility] Comment on above: Performed By: #### C BC #### [facility] [address] [place] [address] Dr. Saray Souza ERUAHD A micrscopic examination will be performed if indicated. Normal [facility] Comment on above: Performed By: #### C BC #### [facility] [address] [place] [address] Dr. Saray Souza Glucose Ql (U) Negative Normal NEGATIVE [facility] Comment on above: Performed By: #### C BC #### [facility] [address] [place] [address] Dr. Saray Souza Hemoglobin Ql (U) Negative Normal NEGATIVE [facility] Comment on above: Performed By: #### C BC #### [facility] [address] [place] [address] Dr. Saray Souza Ketones Ql (U) Negative Normal NEGATIVE [facility] Comment on above: Performed By: #### C BC #### [facility] [address] [place] [address] Dr. Saray Souza LEUKOCYTES MODERATE Abnormal NEGATIVE [facility] Comment on above: Performed By: #### C BC #### [facility] [address] [place] [address] Dr. Saray Souza Nitrite Ql (U) Negative Normal NEGATIVE [facility] Comment on above: Performed By: #### C BC #### [facility] [address] [place] [address] Dr. Saray Souza pH (U) 5.5 [pH] Normal 5-9 [facility] Comment on above: Performed By: #### C BC #### [facility] [address] [place] [address] Dr. Sraay Souza SPEC GRAVITY >=1.030 Abnormal 1.005-<=1.025 [facility] Comment on above: Performed By: #### C BC #### [facility] [address] [place] [address] Dr. Saray Souza UA PROTEIN Negative Normal NEGATIVE/ TRACE [facility] Comment on above: Performed By: #### C BC #### [facility] [address] [place] [address] Dr. Saray Souza UR MICRO IND INDICATED Normal [facility] Comment on above: Performed By: #### C BC #### [facility] [address] [place] [address] Dr. Saray Souza Urobilinogen Qn (U) 0.2 {Janine'U}/dL Normal 0.2 - 1. 0 [facility] Comment on above: Performed By: #### C BC #### [facility] [address] [place] [address] Dr. Saray Souza LIPASEon 02-04-2023 Lipase [Catalytic activity/Vol] 97.0 U/L Normal 73.0-393.0 [facility] Comment on above: Performed By: #### T SH, CMP, HSTROPN, LIPA, KELLE #### [facility] [address] [place] [address] Dr. Saray Souza URon 02-04-2023 , QUAL Negative Normal NEGATIVE [facility] Comment on above: Performed By: #### C BC #### [facility] [address] [place] [address] Dr. Saray Souza PROF 14(COMP METB)on 023 Albumin [Mass/Vol] 3.5 g/dL Normal 3.4-5.0 [facility] Comment on above: Performed By: #### T SH, CMP, HSTROPN, LIPA, KELLE #### [facility] [address] [place] [address] Dr. Saray Souza Albumin/Globulin [Mass ratio] 1.2 {ratio} Normal [facility] Comment on above: Performed By: #### T SH, CMP, HSTROPN, LIPA, KELLE #### [facility] [address] [place] [address] Dr. Saray Souza ALP [Catalytic activity/Vol] 78 U/L Normal 46-116 [facility] Comment on above: Performed By: #### T SH, CMP, HSTROPN, LIPA, KELLE #### [facility] [address] [place] [address] Dr. Saray Souza ALT [Catalytic activity/Vol] 24 U/L Normal 14-59 [facility] Comment on above: Performed By: #### T SH, CMP, HSTROPN, LIPA, KELLE #### [facility] [address] [place] [address] Dr. Saray Souza Anion gap [Moles/Vol] 7.9 mmol/L Normal [facility] Comment on above: Performed By: #### T SH, CMP, HSTROPN, LIPA, KELLE #### [facility] [address] [place] [address] Dr. Saray Souza AST [Catalytic activity/Vol] 16 U/L Normal 15-37 [facility] Comment on above: Performed By: #### T SH, CMP, HSTROPN, LIPA, KELLE #### [facility] [address] [place] [address] Dr. Saray Souza Bilirubin [Mass/Vol] 0.3 mg/dL Normal 0.2-1.0 [facility] Comment on above: Performed By: #### T SH, CMP, HSTROPN, LIPA, KELLE #### [facility] [address] [place] [address] Dr. Saray Souza Calcium [Mass/Vol] 8.6 mg/dL Normal 8.5-10.1 [facility] Comment on above: Performed By: #### T SH, CMP, HSTROPN, LIPA, KELLE #### [facility] [address] [place] [address] Dr. Saray Souza Chloride [Moles/Vol] 105 mmol/L Normal 98-107 [facility] Comment on above: Performed By: #### T SH, CMP, HSTROPN, LIPA, KELLE #### [facility] [address] [place] [address] Dr. Saray Souza CO2 [Moles/Vol] 28.9 mmol/L Normal 21.0-32.0 [facility] Comment on above: Performed By: #### T SH, CMP, HSTROPN, LIPA, KELLE #### [facility] [address] [place] [address] Dr. Saray Souza Creatinine [Mass/Vol] 0.67 mg/dL Normal 0.55-1.02 [facility] Comment on above: Performed By: #### T SH, CMP, HSTROPN, LIPA, KELLE #### [facility] [address] [place] [address] Dr. Saray Souza EGFR-AF CAMEROONIAN >60 Normal >=60 [facility] Comment on above: Performed By: #### T SH, CMP, HSTROPN, LIPA, KELLE #### [facility] [address] [place] [address] Dr. Saray Souza EGFR-NON AF CAMEROONIAN >60 Normal >=60 [facility] Comment on above: Performed By: #### T SH, CMP, HSTROPN, LIPA, KELLE #### [facility] [address] [place] [address] Dr. Saray Souza Globulin (S) [Mass/Vol] 3.0 g/dL Normal [facility] Comment on above: Performed By: #### T SH, CMP, HSTROPN, LIPA, KELLE #### [facility] [address] [place] [address] Dr. Saray Souza Glucose [Mass/Vol] 97 mg/dL Normal 74-106 [facility] [facility] Comment on above: Performed By: #### T SH, CMP, HSTROPN, LIPA, KELLE #### [facility] [address] [place] [address] Dr. Saray Souza Potassium [Moles/Vol] 3.8 mmol/L Normal 3.5-5.1 [facility] Comment on above: Performed By: #### T SH, CMP, HSTROPN, LIPA, KELLE #### [facility] [address] [address] [address] Saray Souza Protein [Mass/Vol] 6.5 g/dL Normal 6.4-8.2 [facility] Comment on above: Performed By: #### T SH, CMP, HSTROPN, LIPA, KELLE #### [facility] [address] [address] [address] Saray Souza Sodium [Moles/Vol] 138 mmol/L Normal 136-145 [facility] Comment on above: Performed By: #### T SH, CMP, HSTROPN, LIPA, KELLE #### [facility] [address] [address] [address] aSray Souza Urea nitrogen [Mass/Vol] 13.0 mg/dL Normal 7.0-18.0 [facility] Comment on above: Performed By: #### T SH, CMP, HSTROPN, LIPA, KELLE #### [facility] [address] [place] [address] Dr. Saray Souza Urea nitrogen/Creatinine [Mass ratio] 19.4 mg/mg Normal [facility] Comment on above: Performed By: #### T SH, CMP, HSTROPN, LIPA, KELLE #### [facility] [address] [place] [address] Dr. Saray Souza TROPONIN, HIGH SENSITIVITYon 02-04-2023 HSTROP 4.0 pg/mL Normal 4.0-51.3 [facility] Comment on above: Result Comment: CUT- OFF POINTS HAVE BEEN ESTABLISHED BASED ON THE FOURTH UNIVERSAL DEFINITIONS OF MYOCARDIAL INFARCTION. THE UPPER REFERENCE LIMIT (URL) OF TROPONIN, DEFINED THE 99TH PERCENTILE OF cTnI DISTRIBUTION IN A REFERENCE POPULATION, HAS BEEN CONFIRMED THE DECISION THRESHOLD FOR UT DIAGNOSIS. Performed By: #### T SH, CMP, HSTROPN, LIPA, KELLE #### [facility] [address] [place] [address] Dr. Saray Souza TSHon 02-04-2023 TSH 2.478 uIU/mL Normal 0.358-3.740 The [facility] Comment on above: Performed By: #### T SH, CMP, HSTROPN, LIPA, KELLE #### [facility] [address] [place] [address] Dr. Saray Souza URINE MICROSCOPIC ONLYon BACTERIA MODERATE Abnormal NONE SEEN The [facility] Comment on above: Performed By: #### C BC #### [facility] [address] [place] [address] Dr. Saray Souza Bacteria identified Cx Nom (U) INDICATED Normal The [facility] Comment on above: Performed By: #### C BC #### [facility] [address] [place] [address] Dr. Saray Souza CAST NONE SEEN Normal NONE SEEN The [facility] Comment on above: Performed By: #### C BC #### [facility] [address] [place] [address] Dr. Saray Souza Crystals LM Nom (Urine sed) NONE SEEN Normal NONE SEEN The [facility] Comment on above: Performed By: #### C BC #### [facility] [address] [place] [address] Dr. Saray Souza Epithelial cells LM Ql (Urine sed) MODERATE Abnormal NONE SEEN /RARE The [facility] Comment on above: Performed By: #### C BC #### [facility] [address] [place] [address] Dr. Saray Souza MUCOUS NONE SEEN Normal NONE SEEN The [facility] Comment on above: Performed By: #### C BC #### [facility] [address] [place] [address] Dr. Saary Souza RBC 5-10 Abnormal 0-2 The [facility] Comment on above: Performed By: #### C BC #### [facility] [address] [place] [address] Dr. Saray Souza WBC 10-20 Abnormal NONE SEEN The [facility] Comment on above: Performed By: #### C BC #### [facility] [address] [place] [address] Dr. Saray Souza Covid-19 PCR (CVDTB)on 09-24 SARS-CoV-2 (COVID-19) RNA DAYDAY+probe Ql (Unsp spec) Not detected Normal NOT DETECTED The [facility] Comment on above: Result Comment: When diagnostic [...] for this test is supported by the [place] of Health and Human Service's declaration that [...] By: #### C BC #### [facility] [address] [place] [address] Dr. Saray Souza INFLUENZA A AND B [facility] 10-20 [facility] SEE BELOW Normal [facility] Comment on above: Result Comment: Nega tive for Flu A protein angiten. Infection due to Flu A cannot be ruled out. Flu A angiten in the sample may be below the detection limit of the test. Performed By: #### C BC #### [facility] [address] [place] [address] Dr. Sar[facility] SEE BELOW Normal [facility] Comment on above: Result Comment: Nega tive for Flu B protein antigen. Infection due to Flu B cannot be ruled out. Flu B antigen in the sample may be below the detection limit of the test. Performed By: #### C BC #### [facility] [address] [place] [address] Dr. Saray Souza INFLUENZA A AG Negative Normal NEGATIVE SEE COMMENT [facility] Comment on above: Performed By: #### C BC #### [facility] [address] [place] [address] Dr. Saray Souza INFLUENZA B AG Negative Normal NEGATIVE SEE COMMENT [facility] Comment on above: Performed By: #### C BC #### [facility] [address] [address] [address] Saray Souza INTERNAL CONTROLS Within Normal Limits Normal Wi thin Normal Limits [facility] Comment on above: Performed By: #### C BC #### [facility] [address] [address] [address] Saray Souza STREPT SCREENon 10-20-2022 STREP SCREEN A Positive Abnormal NEGATIVE [facility] Comment on above: Performed By: #### C BC #### [facility] [id number] Saray Souza XR SHOULDER RT INJon [...] Date: 2022-07-18 17:05 Normal The [facility] MRI SHOULDER RT WO CONon MRI SHOULDER [...] by: ADRIANA MENDEZ Date: 2022-07-10 10:10 Normal [facility] XR ARTHRO SHLD RTon 07-10-20 22 XR ARTHRO LD RT EXAMINATION: XR ARTHRO SHLD RT HISTORY: [...] by: ADRIANA MENDEZ Date: 2022-07-10 10:01 Normal [facility] No Panel Informationon 03-18 Right Eye Reliability was good. Findings include normal observations. Left Eye Reliability was good. Findings include normal observations. Notes I personally reviewed the visual zaldivar performed by this patient on 03/18/22. The visual zaldivar are normal OU with good fixation. Francisco Ayers MD [facility] Radiology Study observation (narrative) [facility] Progress Noteson 03-18-2022 Deportation Examiner Authentication Interface Message Text Referred by Retina [...] Hair) regarding headaches-- will fax information to [phone] - Offered referral to neurology, patient prefers [...] her PCP. Francisco Ayers MD Normal [facility] Vital Signs Date Time Vital Sign Value Performing Clinician Facility 01-04-2025 16:08-0500 Body mass index (BMI) [Ratio] 45.77 kg/m2 Kelle Hartford PA Work Phone: [facility] 01-04-2025 16:08-0500 Body weight 144.7 kg Kelle Melany PA Work Phone: [facility] 01-04-2025 16:08-0500 Diastolic blood pressure 78 mm[Hg] Kelle Melany PA Work Phone: [facility] 01-04-2025 16:08-0500 Systolic blood pressure 120 mm[Hg] Kelle Hartford PA Work Phone: [facility] 12-27-2024 09:53-0500 Body mass index (BMI) [Ratio] 45.69 kg/m2 Kelle Hartford PA Work Phone: [facility] 12-27-2024 09:53-0500 Body weight 144.43 kg Kelle Melany PA Work Phone: [facility] 12-27-2024 09:53-0500 Diastolic blood pressure 78 mm[Hg] Kelle Melany PA Work Phone: [facility] 12-27-2024 09:53-0500 Systolic blood pressure 130 mm[Hg] Kelle Hartford PA Work Phone: [facility] 12-05-2024 15:49-0500 Body mass index (BMI) [Ratio] 45.92 kg/m2 Graham Dante DO Work Phone: [facility] 12-05-2024 15:49-0500 Body weight 145.15 kg Graham Dante DO Work Phone: [facility] 12-05-2024 15:49-0500 Diastolic blood pressure 70 mm[Hg] Graham Dante DO Work Phone: [facility] 12-05-2024 15:49-0500 Systolic blood pressure 120 mm[Hg] Graham Dante DO Work Phone: [facility] 12-02-2024 19:42-0500 Diastolic blood pressure 80 mm[Hg] Nic Estevez MD Work Phone: [facility] [employer] 12-02-2024 19:42-0500 Systolic blood pressure 122 mm[Hg] Nic Estevez MD Work Phone: [facility] [employer] 12-02-2024 19:40-0500 Body temperature 99.39 [degF] Nic Estevez MD Work Phone: [facility] 12-02-2024 19:38-0500 Heart rate 105 /min Nic Estevez MD Work Phone: [facility] 12-02-2024 19:38-0500 Respiratory rate 18 /min Nic Estevez MD Work Phone: [facility] 12-02-2024 19:38-0500 SaO2% (BldA) [Mass fraction] 99 % Nic Estevez MD Work Phone: [facility] 11-03-2024 13:25-0500 Body mass index (BMI) [Ratio] 46.4 kg/m2 [facility] Nurse [facility] 11-03-2024 13:25-0500 Body weight 146.69 kg [facility] Nurse [facility] 08-29-2024 10:53-0400 Body mass index (BMI) [Ratio] 45.89 kg/m2 Kelle BAE Work Phone: [facility] 08-29-2024 10:53-0400 Body weight 145.06 kg Kelle BAE Work Phone: [facility] 08-29-2024 10:53-0400 Diastolic blood pressure 70 mm[Hg] Kelle BAE Work Phone: [facility] 08-29-2024 10:53-0400 Systolic blood pressure 120 mm[Hg] Kelle BAE Work Phone: [facility] 07-26-2024 08:36-0400 Body height 177.8 cm Kelle BAE Work Phone: [facility] 07-26-2024 08:36-0400 Body mass index (BMI) [Ratio] 46.06 kg/m2 Kelle BAE Work Phone: [facility] 07-26-2024 08:36-0400 Body weight 145.6 kg Kelle Melany PA Work Phone: [facility] 07-26-2024 08:36-0400 Diastolic blood pressure 84 mm[Hg] Kelle Mosley PA Work Phone: [facility] 07-26-2024 08:36-0400 Systolic blood pressure 130 mm[Hg] Kelle Enriquezey PA Work Phone: [facility] 2024 09:04-0400 Blood Pressure Location JANNETHKARLIE SMITH [facility] 2024 09:04-0400 Diastolic blood pressure 82 mm[Hg] JANNETH LUIS [facility] 2024 09:04-0400 Heart rate 74 /min JANNETH LUIS [facility] 2024 09:04-0400 Respiratory rate 16 /min JANNETH LUIS [facility] 2024 09:04-0400 Systolic blood pressure 125 mm[Hg] JANNETH LUIS [facility] 03-08-2024 14:09-0400 Blood Pressure Location Yonis MIRANDA [facility] 03-08-2024 14:09-0400 Diastolic blood pressure 84 mm[Hg] Yonis MIRANDA [facility] 03-08-2024 14:09-0400 Heart rate 76 /min [facility]ANDA [facility] 03-08-2024 14:09-0400 Respiratory rate 16 /min Yonis MIRANDA [facility] 03-08-2024 14:09-0400 Systolic blood pressure 118 mm[Hg] Yonis MIRANDA [facility] 01-19-2024 09:34-0500 Blood Pressure Location JANNETH SMITH [facility] 01-19-2024 09:34-0500 Diastolic blood pressure 84 mm[Hg] JANNETH SMITH [facility] 01-19-2024 09:34-0500 Heart rate 80 /min JANNETH SMITH [facility] 01-19-2024 09:34-0500 Respiratory rate 16 /min JANNETH SMITH [facility] 01-19-2024 09:34-0500 Systolic blood pressure 132 mm[Hg] JANNETH SMITH [facility] 12-02-2023 08:40-0500 Body height 180.34 cm Taniya Mary Grace Other [facility] Other 12-02-2023 08:40-0500 Body mass index (BMI) [Ratio] 45.1 kg/m2 Taniya Mary Grace Other [facility] Other 12-02-2023 08:40-0500 Body temperature 97.5 [degF] Taniya Mary Grace Other [facility] Other 12-02-2023 08:40-0500 Body weight 146.69 kg Taniya Mary Grace Other [facility] Other 12-02-2023 08:40-0500 Diastolic blood pressure 83 mm[Hg] Taniya Mary Grace Other [facility] Other 12-02-2023 08:40-0500 Respiratory rate 18 /min Taniya Mary Grace Other [facility] Other 12-02-2023 08:40-0500 SaO2% (BldA) [Mass fraction] 98 % Taniya Mary Grace Other [facility] Other 12-02-2023 08:40-0500 Systolic blood pressure 136 mm[Hg] Taniya Mary Grace Other [facility] Other 11-19-2021 15:30-0500 Body height 180.34 cm Nandini Tonilaya Other [facility] Other 11-19-2021 15:30-0500 Body mass index (BMI) [Ratio] 41.56 kg/m2 aNndini Pantoja Other [facility] Other 11-19-2021 15:30-0500 Body weight 135.17 kg Nandini Pantoja Other [facility] Other 11-19-2021 15:30-0500 Diastolic blood pressure 76 mm[Hg] Nandini Pantoja Other [facility] Other 11-19-2021 15:30-0500 Systolic blood pressure 128 mm[Hg] Nandini Pantoja Other [facility] Other Encounters Encounter Date Encounter Type Care Provider Facility Start: 02-06-2025 End: 02-06-2025 ambulatory GRAHAM DANTE Not Available Start: 01-23-2025 End: 01-23-2025 ambulatory KELLE MOSLEY Not Available Start: 01-04-2025 End: 01-04-2025 Office outpatient visit 15 minutes Kelle BAE Work Phone: [facility] Comment on above: Second trimester pre gnancy; 18 weeks gestation of ; Headache in , antepartum Start: 01-04-2025 End: 01-04-2025 ambulatory KELLE MOSLEY Not Available Start: 01-04-2025 End: 01-04-2025 Bamboo flowsheet Kelle BAE Work Phone: [facility] Start: 01-04-2025 End: 01-04-2025 Bamboo flowsheet Kelle BAE Work Phone: [facility] Start: 12-27-2024 End: 12-27-2024 Bamboo flowsheet Kelle BAE Work Phone: [facility] Start: 12-27-2024 End: 01-01-2025 Bamboo flowsheet Kelle BAE Work Phone: [facility] Start: 12-27-2024 End: 01-01-2025 Clinisync Result Encounter Kelle BAE Work Phone: [facility] External Department Unsolicited Start: 12-27-2024 End: 12-27-2024 Patient encounter procedure Kelle BAE Work Phone: [facility] Start: 12-27-2024 End: 12-27-2024 Periodic preventive med est patient 18-39 yrs Kelle BAE Work Phone: [facility] Comment on above: 17 weeks gestation o f ; Second trimester ; Screening, , for anatomic survey; Exposure to STD; Vaginal discharge; Well woman exam with routine gynecological exam; Sinus congestion Start: 12-27-2024 End: 12-27-2024 ambulatory KELLE MOSLEY Not Available Start: 12-23-2024 End: 12-23-2024 Clinisync Result Encounter Graham Howell DO Work Phone: [facility] External Department Unsolicited Start: 12-23-2024 End: 12-23-2024 [...] patient visit Nic Estevez MD Work Phone: [facility] Department Comment on above: Abdominal cramping, bilateral lower quadrant (Primary Dx) Start: 11-25-2024 End: 11-25-2024 ambulatory JANNETH SMITH Facility:[facility] Start: 11-25-2024 End: 11-25-2024 Patient encounter procedure JANNETH SMITH [facility] Start: 11-03-2024 End: 11-03-2024 Office outpatient visit 5 minutes [facility] Dante Nurse [facility] Comment on above: GA: 9w3d Start: 11-03-2024 End: 11-03-2024 ambulatory KELLE MOSLEY Not Available Start: 10-27-2024 End: 10-27-2024 ambulatory JANNETH SMITH Facility:[facility] Start: 10-27-2024 End: 10-27-2024 Patient encounter procedure JANNETH SMITH [facility] Start: 09-28-2024 End: 09-28-2024 Clinisync Result Encounter Graham Dante DO Work Phone: [facility] External Department Unsolicited Start: 09-28-2024 End: 09-28-2024 Clinisync Result Encounter Graham Dante DO Work Phone: [facility] External Department Unsolicited Start: 08-29-2024 End: 08-29-2024 Bamboo flowsheet Kelle Hartford PA Work Phone: [facility] Start: 08-29-2024 End: 08-29-2024 Bamboo flowsheet Kelle Hartford PA Work Phone: [facility] Start: 08-29-2024 End: 08-29-2024 Office outpatient visit 15 minutes Kelle Hartford PA Work Phone: [facility] Comment on above: Encounter for weight management Start: 08-29-2024 End: 08-29-2024 ambulatory KELLE MELANY Not Available Start: 07-26-2024 End: 07-26-2024 Bamboo flowsheet Kelle Melany PA Work Phone: [facility] Start: 07-26-2024 End: 07-26-2024 Bamboo flowsheet Kelle Hartford PA Work Phone: [facility] Start: [...] 2024 End: 2024 ambulatory Yonis MIRANDA Facility: [facility] Start: 2024 End: 2024 Patient encounter procedure JANNETH SMITH [facility] Start: 04-27-2024 End: 04-27-2024 ambulatory MD Melodie Ashton Work Phone: [facility] Work Phone: Start: 04-27-2024 End: 04-27-2024 Departed Referred MD Melodie Ashton Work Phone: [facility] Start: 04-27-2024 End: 04-27-2024 ambulatory Yonis R LOGANL Facility:[id number] Start: 03-08-2024 End: 03-08-2024 ambulatory Yonis R LOGANL Facility:[facility] Start: 03-08-2024 End: 03-08-2024 Patient encounter procedure Yonis FORDL General [facility] Start: 02-09-2024 End: 02-09-2024 ambulatory Dieter REMY Facility:[facility] Start: 02-09-2024 End: 02-09-2024 Patient encounter procedure Dieter REMY [facility] Start: 01-19-2024 End: 01-19-2024 ambulatory JANNETH SMITH Facility:[facility] Start: 01-19-2024 End: 01-19-2024 Lab Drop off JANNETH SMITH [facility] Start: 01-19-2024 End: 01-19-2024 ambulatory JANNETH SMITH Facility:[facility] Start: 01-19-2024 End: 01-19-2024 Patient encounter procedure JANNETH MADRIGALRY [facility] Start: 12-31-2023 ambulatory Yonis MIRANDA Facility:[facility] Start: 12-17-2023 End: 12-17-2023 ambulatory Taniya Mary Grace Other [facility] Other Start: 12-17-2023 Office outpatient vi sit 15 minutes Taniya [facility] Start: 12-07-2023 End: 12-07-2023 ambulatory Taniya Mary Grace Other [facility] Other Start: 12-07-2023 Telephone encounter Taniya Mary Grace [facility] Start: 12-02-2023 End: 12-02-2023 ambulatory Taniya Mary Grace Other [facility] Other Start: 12-02-2023 Office outpatient ne w 30 minutes Taniya Mary Grace [facility] Start: 04-17-2023 End: 04-17-2023 ambulatory SALMA DIAB . Facility:[facility] Start: 04-06-2023 End: 04-07-[address] MELODIE ASHTON . Facility:[facility] Start: 04-04-2023 Encounter for genera l adult medical examination without abnormal findings DR MELODIE ASHTON . [facility] Start: 04-03-2023 End: 04-04-[address] MELODIE [...] Start: 03-18-2022 End: 03-18-2022 ambulatory UNKNOWN PROVIDER Facility:[facility] Start: 11-19-2021 End: 11-19-2021 ambulatory Nandini Pantoja Other [facility] Other Start: 11-19-2021 Office outpatient ne w 30 minutes Nandini Pantoja [facility] Gastroenterology Procedures Date Procedure [...] field xm uni/ bi w/interp extended exam Estlela Guerrero MD Work Phone: Start: 03-18-2022 End: [...] ant neoplasm of cervix [facility] Start: 02-06-2025 End: 02-06-2025 Patient encounter procedure 02/06/2025 3:10 PM EDT Routine [facility] [address] [place] [address] Graham Howell, DO [address] [place] [address] [facility] Start: 01-23-2025 End: 01-23-2025 Professional / ancillary services management 01/23/2025 11:00 AM EST Ancillary Procedure [facility] [address] [place] [phone] [facility] Start: 01-04-2025 End: 01-04-2025 Patient encounter procedure [facility] Comment on above: Arrived Start: 12-27-2024 End: 01-24-2025 Alpha fetoprotein, maternal Alpha fetoprotein, maternal Lab Routine 17 weeks gestation of Second trimester Expected: 12/27/2024 (Approximate), Expires: 01/24/2025 [facility] Work Phone: Comment on above: Expected: 12/27/2024 (Approximate), Expires: 01/24/2025 Start: 12-27-2024 End: 12-27-2025 US for US OB 14+ weeks anatomy scan Imaging Routine Screening, , for anatomic survey Expected: 12/27/2024, Expires: 12/27/2025 [facility] Comment on above: Expected: 12/27/2024 , Expires: 12/27/2025 Start: 12-27-2024 End: 12-27-2024 Patient encounter procedure 12/27/2024 9:30 AM EST Routine [facility] [address] [place] [id number] Kelle Mosley PA [address] [place] [address] Arrived [facility] Comment on above: Arrived Start: 12-05-2024 End: 12-05-2024 Patient encounter procedure [facility] Comment on above: Arrived Start: 11-28-2024 End: 11-28-2024 Patient encounter procedure 11/28/2024 9:30 AM EST Office Visit [facility] [address] [place] [address] Kelle Mosley, PA [address] [place] [address] [facility] Start: 11-03-2024 End: 11-03-2025 ABO/Rh ABO/Rh Lab Routine Missed menses , unspecified gestational age Expected: 11/03/2024 (Approximate), Expires: 11/03/2025 [facility] Comment on above: Expected: 11/03/2024 [...] first trimester Expected: 11/03/2024 (Approximate), Expires: 11/03/2025 [facility] Comment on above: Expected: 11/03/2024 (Approximate), Expires: 11/03/2025 Start: 11-03-2024 End: 11-03-2024 ambulatory 11/03/2024 1:00 PM EST Initial [facility] [address] [place] [address] [facility] Start: 11-03-2024 End: 11-03-2024 Professional / ancillary services management 11/03/2024 12:30 PM EST Ancillary Procedure [facility] [address] [place] [phone] [facility] Start: 08-29-2024 End: 08-29-2024 Patient encounter procedure 08/29/2024 10:50 AM EDT Office Visit [facility] [address] [place] [phone] Kelle Mosley, PA [address] [place] [address] Arrived [facility] Comment on above: Arrived Start: 07-26-2024 End: 07-26-2024 Patient encounter procedure 07/26/2024 8:30 AM EDT Office Visit [facility] [address] [place] [phone] Kelle Mosley, PA [address] [place] [address] [place] [address] Arrived [facility] Comment on above: Arrived Start: 07-24-2024 COVID-19 Vaccine ( season) COVID-19 Vaccine ( season) [facility] Start: 07-24-2024 Influenza vaccination Influenza Vacc ine (#1) [facility] Start: 06-23-2024 Influenza vaccination Flu vaccine (# 1) [facility] Start: 2023 Screening for malign ant neoplasm of cervix [facility] Start: 12-20-2021 Screening for malign ant neoplasm of cervix Pap smear [facility] Start: 2014 Screening for malign ant neoplasm of cervix [facility] Start: 2012 DTaP/Tdap/Td vaccine (1 - Tdap) DTaP/Tdap/Td vaccine (1 - Tdap) [facility] Start: 2012 Hepatitis B vaccine (1 of 3 - 19+ 3-dose series) Hepatitis B vaccine (1 of 3 - 19+ 3-dose series) [facility] Start: 2011 [facility] Start: 2011 Tetanus + diphtheria + acellular pertussis vaccine (product) Tdap Booster [facility] Start: 2008 HIV screening HIV Test [facility] Start: 2006 Varicella vaccine (1 of 2 - 13+ 2-dose series) Varicella vaccine (1 of 2 - 13+ 2-dose series) [facility] Start: 2005 Depression Screen Depression Screen [facility] [facility] Start: 1998 COVID-19 Vaccine (1) COVID-19 Vaccin e (1) [facility] Bacteria identified in Urine by Culture Urine culture Microbiology Routine Missed menses Ordered: 11/03/2024 [facility] Comment on above: Ordered: 11/03/2024 CBC W Auto Different ial panel - Blood CBC and differential Lab Routine Missed menses , unspecified gestational age Ordered: 11/03/2024 [facility] Comment on above: Ordered: 11/03/2024 CHLAMYDIA TRACHOMATI S (GENITO/STI) CHLAMYDIA TRACHOMATIS (GENITO/STI) Lab Routine Exposure to STD Ordered: 12/27/2024 [facility] Comment on above: Ordered: 12/27/2024 Cytology Cervical or vaginal smear or scraping study Pap Smear Pathology and Cytology Routine Well woman exam with routine gynecological exam Ordered: 12/27/2024 [facility] Comment on above: Ordered: 12/27/2024 EKG 12 Lead EKG 12 Lead ECG STAT 12/02/2024 8:08 PM EST [facility] Hemoglobin A1c/Hemoglobin.total in Blood Hemoglobin A1c Lab Routine Missed menses , unspecified gestational age Ordered: 11/03/2024 [facility] Comment on above: Ordered: 11/03/2024 Hepatitis B virus surface Ag [Presence] in Serum or Plasma by Immunoassay Hepatitis B surface antigen Lab Routine Missed menses , unspecified gestational age Ordered: 11/03/2024 [facility] Comment on above: Ordered: 11/03/2024 Hepatitis C virus Ab [Presence] in Serum or Plasma by Immunoassay Hepatitis C antibody Lab Routine Missed menses , unspecified gestational age Ordered: 11/03/2024 [facility] Comment on above: Ordered: 11/03/2024 HIV-1/HIV-2 antigen/antibody combination immunoassay HIV-1 and HIV-2 antibodies Lab Routine Missed menses , unspecified gestational age Ordered: 11/03/2024 [facility] Comment on above: Ordered: 11/03/2024 Human papilloma viru s DNA [Presence] in Unspecified specimen by Probe with amplification HPV DNA probe, amplified Microbiology Routine Well woman exam with routine gynecological exam Ordered: 12/27/2024 [facility] Comment on above: Ordered: 12/27/2024 Neisseria gonorrhoea e DNA [Presence] in Unspecified specimen by DAYDAY with probe detection Neisseria gonorrhea DNA probe, direct Lab Routine Exposure to STD Ordered: 12/27/2024 [facility] Comment on above: Ordered: 12/27/2024 Reagin Ab [Presence] in Serum by RPR RPR Lab Routine Missed menses , unspecified gestational age Ordered: 11/03/2024 [facility] Comment on above: Ordered: 11/03/2024 Rubella antibody, IgG Rubella an tibody, IgG Lab Routine Missed menses , unspecified gestational age Ordered: 11/03/2024 [facility] Comment on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
[2025-03-06 09:42] LABS: Basophils Percent Auto 0.3 % (0.2-2.0); Eosinophils Absolute Auto 0.1 10^3/uL (0.0-0.7); Eosinophils Percent Auto 0.7 % (0.9-7.0); Hematocrit 35.7 % (36.0-48.0); Hemoglobin 12.1 g/dL (12.0-16.0); Immature Granulocytes Abs Auto 0.06 10^3/uL (0.00-0.03); Immature Granulocytes Pct Auto 0.6 % (0.0-0.5); Lymphocytes Absolute Auto 1.2 10^3/uL (1.2-3.8); Lymphocytes Percent Auto 11.3 % (20.5-60.0); Mean Corpuscular HGB Conc 33.9 g/dL (29.9-35.2); Mean Corpuscular Hemoglobin 30.6 pg (26.7-34.0); Mean Corpuscular Volume 90.2 fL (81.0-99.0); Mean Platelet Volume 8.9 fL (9.5-13.5); Monocytes Absolute Auto 0.6 10^3/uL (0.3-0.8); Monocytes Percent Auto 5.4 % (1.7-12.0); Neutrophils Absolute Auto 8.5 10^3/uL (1.4-6.5); Neutrophils Percent Auto 81.7 % (43.0-75.0); Platelet Count 242 10^3/uL (150-450); Red Blood Count 3.96 10^6/uL (4.20-5.40); Red Cell Distribution Width 12.6 % (11.0-15.0); White Blood Count 10.4 10^3/uL (4.0-11.0)
[2025-03-06 09:58] LABS: Glucose 1 Hour 116 mg/dL (<130)
== END 2025-03-06 08:22 | disposition home or self-care (01) ==
LOC: LAB 08:22
PROVIDERS: PCP Family Medicine; Visit Provider Obstetrics & Gynecology
DX: Z13.1 Encounter for screening for diabetes mellitus (principal)
CPT/HCPCS: 36415; 82950; 85025

== ENCOUNTER 2025-04-25 15:50 | Observation (INO) | payer OTHER, SELFPAY ==
--- OUTSIDE RECORDS SUMMARY | 2015-04-06 01:53 | XMS_ITS | Encounter Summary ---
Author Organization Alex Sultanaelise [facility] Address [address] [place] [address] Care Team Providers Care Sales Associate Name Role Phone Shashi Hargrove MD Primary Care Provider [phone] Encounter Details Date Type Department Care Team (Late st Contact Info) Description 04/06/2015 1:53 AM EDT Hospital Encounter MTH PRE ADMIT [address] [phone] Abdi Mcgill MD [address] [facility] [address] [facility] [address] [place] [address] Social History Tobacco Use Types Packs/Day Years [...] UA YELLOW YEL 04/06/2015 12:25 PM EDT [facility] Turbidity UA CLEAR CLEAR 04/06/2015 12:25 PM EDT [facility] Glucose, Ur NEGATIVE NEG 04/06/2015 12:25 PM EDT [facility] Bilirubin Urine NEGATIVE NEG 5 12:25 PM EDT [facility] Ketones, Urine NEGATIVE NEG 04/06/2015 12:25 PM EDT [facility] Specific [place], UA >1.030(H) 1.010 - 1.020 04/06/2015 12:25 PM EDT [facility] Urine Hgb NEGATIVE NEG 04/06/2015 12:25 PM EDT [facility] pH, UA 6.0 5.0 - 9.0 04/06/2015 12:25 PM EDT [facility] Protein, UA NEGATIVE NEG 04/06/2015 12:25 PM EDT [facility] Urobilinogen, Urine Normal NORM 04/06/2015 12:25 PM EDT [facility] Nitrite, Urine NEGATIVE NEG 04/06/2015 12:25 PM EDT [facility] Leukocyte Esterase, Urine TRACE(A) NEG 04/06/2015 12:25 PM EDT [facility] Urinalysis Comments NOT REPORTED [facility] - 04/06/2015 12:25 PM EDT [facility] WBC, UA 0 TO 2 0 - 5 /HPF 04/06/2015 12:25 PM EDT [facility] RBC, UA None 0 - 2 /HPF 04/06/2015 12:25 PM EDT [facility] Casts UA NOT REPORTED 0 - 2 /LPF [facility] Crystals, UA NOT REPORTED NONE /HPF [facility] Epithelial Cells, UA 0 TO 2 0 - 25 /HPF 04/06/2015 12:25 PM EDT [facility] Renal Epithelial, UA NOT REPORTED 0 /HPF [facility] Bacteria, UA NOT REPORTED NONE [facility] Mucus, UA NOT REPORTED NONE [facility] Trichomonas NOT REPORTED NONE [facility] Amorphous, UA 1+(A) NONE 04/06/2015 12:25 PM EDT [facility] Comment: Performed at [address] [place] [address] ([phone] Other Observations UA NOT REPORTED NREQ [facility] Yeast, UA NOT REPORTED NONE [facility] URINE SPECIMEN / Unknown 04/06/2015 11:11 AM EDT 04/06/2015 11:12 AM EDT us Abdi Mcgill MD URINE ORDERABLES Final Result [facility] [address] [place] [address], [facility] [phone] [facility] * TYPE AND SCREEN (04/06/2015 11:11 AM EDT) Expiration Date 04/13/2015 5 11:47 AM EDT [facility] Arm Band Number [id number] 11:47 AM EDT [facility] ABO/Rh B POSITIVE 04/06/2015 11:47 AM EDT [facility] Antibody Screen NEGATIVE 5 12:19 PM EDT [facility] Comment: Performed at [address] [place] [address] ([phone] Blood (substance) BLOOD SPECIMEN / Unknown 04/06/2015 11:11 AM EDT 04/06/2015 11:12 AM EDT Abdi Mcgill MD BLOOD BANK TEST ORDERABLES Fi nal Result Performing Organization Address [facility]/ZIP Co de Phone Number [facility] [address] [place] [address] [facility] * HCG Qualitative, Serum (04/06/2015 11:11 AM EDT) Preg, Serum NEGATIVE NEG 04/06/2015 12:33 PM EDT [facility] Comment: Performed at [address] [place], [place] [id number] ([phone] Blood (substance) BLOOD SPECIMEN / Unknown 04/06/2015 11:11 AM EDT 04/06/2015 11:12 AM EDT Abdi Mcgill MD CHEMISTRY ORDERABLES Final Re sult Performing Organization Address [facility] Co de Phone Number [facility] [address] [place] [address] [facility] * (ABNORMAL) CBC auto differential (04/06/2015 11:11 AM EDT) [facility] WBC 6.9 4.5 - 13.5 k/uL 04/06/2015 11:31 AM EDT [facility] RBC 4.36 4.0 - 5.2 m/uL 04/06/2015 11:31 AM EDT [facility] Hemoglobin 12.6 12.0 - 16.0 g/dL 04/06/2015 11:31 AM EDT [facility] Hematocrit 37.5 36 - 46 % 04/06/2015 11:31 AM EDT [facility] MCV 86.2 80 - 100 fL 04/06/2015 11:31 AM EDT [facility] MCH 28.9 26 - 34 pg 04/06/2015 11:31 AM EDT [facility] MCHC 33.6 31 - 37 g/dL 04/06/2015 11:31 AM EDT [facility] RDW 13.8 12.1 - 15.2 % 04/06/2015 11:31 AM EDT [facility] Platelets 277 140 - 450 k/uL 04/06/2015 11:31 AM EDT [facility] MPV NOT REPORTED 6.0 - 12.0 fL [facility] Differential Type NOT REPORTED [facility] Seg Neutrophils 66(H) 34 - 64 % 5 11:31 AM EDT [facility] Lymphocytes 21(L) 25 - 45 % 04/06/2015 11:31 AM EDT [facility] Monocytes % 10 0 - 12 % 04/06/2015 11:31 AM EDT [facility] Eosinophils % 3 0 - 8 % 04/06/2015 11:31 AM EDT [facility] Basophils % 0 0 - 2 % 04/06/2015 11:31 AM EDT [facility] Neutrophils Absolute 4.50 1.8 - 7.7 k/uL 04/06/2015 11:31 AM EDT [facility] Lymphocytes Absolute 1.40 1.0 - 4.8 k/uL 04/06/2015 11:31 AM EDT [facility] Monocytes Absolute 0.70 0.0 - 1.0 k/uL 04/06/2015 11:31 AM EDT [facility] Eosinophils Absolute 0.20 0.0 - 0.4 k/uL 04/06/2015 11:31 AM EDT [facility] Basophils Absolute 0.00 0.0 - 0.2 k/uL 04/06/2015 11:31 AM EDT [facility] Comment: Performed at [address] [place] [address] ([phone] WBC Morphology NOT REPORTED [facility] RBC Morphology NOT REPORTED [facility] Platelet Estimate NOT REPORTED [facility] BLOOD SPECIMEN / Unknown 04/06/2015 11:11 AM EDT 04/06/2015 11:12 AM EDT us Abdi Mcgill MD HEMATOLOGY ORDERABLES Final R esult [facility] [address] [place] [address], [facility] [phone] [facility] documented in this encounter Visit Diagnoses Not on filedocumented in this encounter Care Teams Sales Associate Relationship Specialty Start Date End Date Shashi Hargrove MD [address] [place] [address] PCP - General 04/05/15 documented as of this encounter
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
--- OUTSIDE RECORDS SUMMARY | 2024-12-08 04:09 | XMS_ITS ---
Author Organization [facility] in [place] Address [address] [place] [address] Care Team Providers Care Termite Control Servicer Name Role Phone Ethan Hargrove Primary Care Provider REASON FOR VISIT pink eye Medications Medication SIG (Take, Route, Frequency, Duration) Notes Start Date End Date Status Wrsjdkzl-Oddusdzck-Veaaioz h 3.5-91814-7.1 1 drop into affected eye Ophthalmic Four times a day for 7 days 12/08/2024 Active Encounters Encounter Location Date Provider Diagnosis [place] [address] [place] [address] 12/08/2024 Ethan Hargrove Plan Of Treatment Medication Medication Name Sig Start Date Stop Date Notes Mtjflurx-Jmdicnvtb-Uhgfsuyd 3.5-45299-7.1 1 drop into affected eye Ophthalmic Four times a day for 7 days 12/08/2024 Progress Notes * Jocelyn FREEMAN VDOB:1995 (29 yo F)Acc No.[id number]:12/08/2024 Patient: Magaly JAIMES Jocelyn Rivera :1995 A ge:29 Y S ex:Female Address:[address] [place] [address], [place], [address] * Refills Start Gudivgqi-Rzgkmsqbs-Icuzuldt Suspension, 3.5-29172-9.1, Ophthalmic, 1.4 ML, 1 drop into affected eye, Four times a day, 7 days, Refills=1 * true * Date: Generated for Printi ng/Faradhag/Rayitting on: 0 04/25/2025 03:56 PM EDT
--- OUTSIDE RECORDS SUMMARY | 2024-12-12 07:55 | XMS_ITS ---
Author Organization The [facility] in [place] Address [address] [place] [address] Care Team Providers Care Web Services Manager Name Role Phone Ethan Hargrove Primary Care Provider REASON FOR VISIT sinus infection- not better Medications Medication SIG (Take, Route, Fr equency, Duration) Notes Start Date End Date Status Cephalexin 500 MG 2 tabs Orally bid for 10 days Active Encounters Encounter Location Date Provider Diagnosis [facility] [address] [place] [address] 12/12/2024 Ethan Hargrove Acute non-recurrent sinusitis, unspecified [...] * Jocelyn FREEMAN VDOB:1995 (29 yo F)Acc No.[id number]:12/12/2024 Patient: Magaly JAIMES Jocelyn Rivera :1995 A ge:29 Y S ex:Female Address:[address] [place] [address], [address] * Refills Refill Cephalexin Tablet, 500 MG, Orally, 40 Tablet, 2 tabs, bid, 10 days * true * Date: Generated for Printi ng/Faxing/eTransmitting on: 0 04/25/2025 03:55 PM EDT
--- OUTSIDE RECORDS SUMMARY | 2025-01-13 10:40 | XMS_ITS ---
Author Organization [facility] Address [address] [place] [address] Care Team Providers Care Hairspring Adjuster Name Role Phone Dr. Collins Mei Primary Care Provider REASON FOR VISIT FILLING Encounters Encounter Location Date Provider Diagnosis [facility] [address] [place] [address] 01/13/2025 Collins Mei Plan Of Treatment No Information Progress Notes * ASHLEE FREEMANNDOB:1995 ( 29 yo F)Acc No.[id number]:01/13/2025 Patient: ROSALIE SEGURA Provider: Laura Mei DDS :1995 A ge:29 Y S ex:Female Date:01/13/2025 Address:[address] [place], [place] [id number] Subjective: * Chief Complaints: * 1 . FILLING. * Medical History: Objective: * Vitals: Assessment: Plan: * Treatment: * Images: * Electronic signature of Dr. Collins Mei , DMD on 04/25/2025 at 03:55 PM EDT Sign off status: Pending * Provider: Laura Mei DDS Date: 01/13/2025 Generated for Jennifer ng/Faradhag/eTransmitting on: 0 04/25/2025 03:55 PM EDT
--- OUTSIDE RECORDS SUMMARY | 2025-03-10 10:15 | XMS_ITS ---
Author Organization [facility] Address [address] [place] [address] Care Team Providers Care Business Office Technology Instructor Name Role Phone Dr. Collins Mei Primary Care Provider [phone] Caryn Roth [phone] REASON FOR VISIT PROPHY Encounters Encounter Location Date Provider Diagnosis [facility] [address] [place] [address] 03/10/2025 Caryn Joyner Plan Of Treatment No Information Progress Notes * FREEMANASHLEE CHINCHILLANDOB:1995 ( 29 yo F)Acc No.[id number]:03/10/2025 Patient: ROSALIE SEGURA Provider: Melody Joyner :1995 A ge:29 Y S ex:Female Date:03/10/2025 Address:[address] [place], [place] [phone] Pcp:Dr. Collins Mei Subjective: * Chief Complaints: * 1 . PROPHY. * Medical History: Objective: * Vitals: Assessment: Plan: * Treatment: * Images: * Electronic signature of Farhan Joyner on 04/25/2025 at 03:56 PM EDT Sign off status: Pending * Provider: Melody Joyner Date: 03/10/2025 Generated for Hardiki ng/Faxing/eTransmitting on: 0 04/25/2025 03:56 PM EDT
--- OUTSIDE RECORDS SUMMARY | 2025-04-12 14:30 | XMS_ITS | Encounter Summary ---
Author Organization [facility] Address [address] [facility] [place] [address] Care Team Providers Care Saddle Stitching Machine Operator Name Role Phone Shashi Hargrove MD Primary Care Provider [phone] Reason for Visit * Reason Comments Routine Visit Encounter Details Date Type Department Care Team (Latest Contact Info) Description 04/12/2025 2:30 PM EDT Routine [facility] [address] [facility] [place] [place] [address] Graham Howell, DO [address] [facility] [address] Neisha Dill, [facility]11 Third trimester ; 32 weeks gestation of ; size inconsistent with dates Social History Tobacco Use Types Packs/Day Years Used Date Smoking Tobacco: Never Alcohol Use Standard Drinks/Week Comments Yes 0 (1 standard drink = 0.6 oz pure alcohol) 1-2 drinks less than monthly in the past year, Caffeine intake: 2-3 cups per day Estimated Date of Delivery Comme nts Yes 06/05/2025 Based on last me nstrual period of 08/29/2024 Sex and Gender Information Value Date Recorded Sex Assigned at Not on file Legal Sex Female 7:02 PM EDT Gender Identity Not on file Sexual Orientation Not on file documented as of this encounter Last Filed Vital Signs Vital Sign Reading Time Taken Comments Blood Pressure 130/82 04/12/2025 2:56 PM EDT Pulse - - Temperature - - Respiratory Rate - - Oxygen Saturation - - Inhaled Oxygen Concentration - - Weight 148 kg (327 lb 4 oz) 04/12/2025 2:56 PM E DT Height - - Body Mass Index 46.96 07/26/2024 8:36 AM EDT documented in this encounter Progress Notes * Tangela Lacey, ICE CREAM FREEZER - 04/12/2025 2:30 PM EDT Reason for Appointment: Patient ID: Alexia Rodríguez is a 29 y.o. female who presents for Routine Visit Patient presents today for Return OB appointment. MEDICATIONS Current Outpatient Medications Medication Instructions magnesium oxide (MAG-OX) 400 mg, Oral, Daily sertraline (ZOLOFT) 50 mg, Daily valACYclovir (VALTREX) 500 mg, Oral, [...] nursing note reviewed. Exam conducted with a salvage laborer present. Vitals: Estimated body mass index is 46.96 kg/m?? as calculated from the following: Height as of 07/26/24: 5' 10 . Weight as of this encounter: 327 lb 4 oz. BP: 130/82 Patient's last menstrual period was 08/29/2024. ASSESSMENT & PLAN ICD-10-CM 1. Third trimester Z34.93 POCT urinalysis dipstick manually resulted 2. 32 weeks gestation of Z3A.32 Return OB: Patient presents today for a routine obstetrics appointment. Patient is currently 32w2d . Patient states she is doing well but has complaints of being tired due to current . Pt has sciatic pain advised stretching and heat. Patient has verbalizes frequent movement. labor precautions was discussed/given and patient was instructed to perform kick counts three times a day. Given growth ultrasound order Orders Placed This Encounter Procedures POCT urinalysis dipstick manually resulted Follow Up: Patient is to return to office in 2 week for routine OB appointment. Documented by Tangela Lacey LPN on behalf of: Graham Howell DO documented in this encounter Plan of Treatment Upcoming Encounters Date Type Department Care Team (Late st Contact Info) Description 04/27/2025 1:00 PM EDT Routine [facility] [address] [facility] [place] [address] Kelle Mosley PA [address] [facility] [address] [place], [place] [id number] 04/27/2025 3:00 PM EDT Ancillary Procedure [facility] [address] [facility] [place] [address] Scheduled Orders Name Type Priority Associated Diagnoses Orde r Schedule US OB follow up transabdominal approach Imaging Routine size inconsistent with dates Expected: 04/12/2025, Expires: 08/13/2025 documented as of this encounter Procedures Procedure Name Priority Date/Time Associated Diagnosis Comments POCT URINALYSIS DIPSTICK Routine 04/12/2025 3:28 PM EDT Third trimester documented in this encounter Results * (ABNORMAL) POCT urinalysis dipstick manually resulted (04/12/2025 3:28 PM EDT) Color, UA Yellow Clarity, UA Clear Glucose, UA Negative Negative - 2000(110) ++++ mg/dL Bilirubin, UA Negative Negative - 4(70) +++ mg/dL Ketones, UA Positive Negative - 160(16) ++++ mg/dL Comment:Trace Spec Grav, UA 1.010 1 - 1.03 Blood, UA Negative Negative - 50 Issac/mcL pH, UA 6.0 5 - 9 Protein, UA Positive Negative - 2000(20) ++++ mg/dL Comment:30mg/dL Urobilinogen, UA 1.0 0.2 - 12 mg/dL Leukocytes, UA Trace Negative - 500+++ Christo/mcL Nitrite, UA Negative Negative - Positive Urine 04/12/2025 3:28 PM EDT Graham Howell DO POINT OF CARE TEST ENTER/EDIT OR DERABLES Edited Result - Final documented in this encounter Visit Diagnoses Diagnosis Third trimester state, incidental 32 weeks gestation of size inconsistent with dates documented in this encounter Care Teams Saddle Stitching Machine Operator Relationship Specialty Start Date End Date Shashi Hargrove MD [address] [place] [address] PCP - General Family Medicine 05/11/23 documented as of this encounter
--- OUTSIDE RECORDS SUMMARY | 2025-04-25 15:55 | XMS_ITS | Clinical Summary ---
Author Organization [facility] Address [address] [place] [address] Care Team Providers Care Locomotive Repairer Diesel Name Role Phone Shashi Hargrove MD Primary Care Provider [phone] [phone] Active Allergy Reactions Criticality Noted Date Comments Wound Dressings 12/25/2023 Other Reaction(s): hives Medications sertraline (Zoloft) 100 MG tablet Take 50 mg by mouth Daily Active valACYclovir (Valtrex) 500 MG tabletIndications :Herpes zoster with complication Take 1 tablet (500 mg) by mouth Daily 30 tablet 11 5 04/28/20 25 Active magnesium oxide (Mag-Ox) 400 MG tabletIndications : headache in third trimester Take 1 tablet (400 mg) by mouth Daily 30 tablet 11 5 Active magnesium oxide (Mag-Ox) 400 MG tablet Take 1 tablet by mouth Daily 5 04/10/20 25 Discontinu ed(Reorder ) Active Problems Problem Noted Date Diagnosed Date Encounter for weight management 06/27/2024 Abnormal ultrasound of biliary tract 05/27/2023 Acne vulgaris 05/27/2023 Anxiety 05/27/2023 Chronic cholecystitis with calculus 05/27/2023 Gastroesophageal reflux disease 05/27/2023 Insomnia 05/27/2023 Irritable bowel syndrome 05/27/2023 Mood disorder 05/27/2023 Right upper quadrant abdominal pain 05/27/2023 Scoliosis 05/27/2023 LPRD (laryngopharyngeal reflux disease) 05/07/20 23 Pharyngeal dysphagia 05/07/2023 Dermoid cyst of left ovary 04/10/2015 Vaginal delivery 09/06/2014 Estimated Date of Delivery Comme nts Yes 06/05/2025 Based on last me nstrual period of 08/29/2024 Encounters Date Type Department Care Team Description 04/25/2025 Telephone [facility] [address] [place] [address] Graham Howell, 04/12/2025 2:30 PM EDT Routine [facility] [address] [place] [address] Graham Howell, Third trimester ; 32 weeks gestation of ; size inconsistent with dates 04/12/2025 Bamboo flowsheet [facility] [address] [place] [address] Graham Howell, 04/10/2025 Refill [facility] [address] [place] [address] Aleida Colon LPN headache in third trimester 03/29/2025 3:10 PM EDT Routine [facility] [address] [place] [address] Kelle Mosley PA Herpes zoster with complication (Primary Dx); 30 weeks gestation of ; Third trimester 03/29/2025 Bamboo flowsheet [facility] [address] [place] [address] Kelle Mosley PA 03/15/2025 2:50 PM EDT Routine [facility] [address] [place] [address] Graham Howell, Third trimester ; 28 weeks gestation of ; H/O herpes zoster virus 03/15/2025 Bamboo flowsheet [facility] [address] [place] [address] Graham Howell, 03/06/2025 Clinisync Result Encounter [facility] External Department Unsolicited Graham Howell, 02/06/2025 3:10 PM EDT Routine [facility] [address] [place] [address] Graahm Howell, DO Diabetes mellitus screening; 23 weeks gestation of ; Second trimester 02/06/2025 Bamboo flowsheet [facility] [address] [facility] [place] [address] Graham Howell DO 02/02/2025 Telephone [facility] [address] [place] [address] [place] [address] Katie Fitzgerald MA 01/23/2025 11:00 AM EST Ancillary Procedure [facility] [address] [place] [address] [place] [address] Screening, , for anatomic survey from Last 3 Months Family History Medical History Relation Name Comments Hypertension Father Hypertension Mother Relation Name Status Comments Father Alive Mother Alive Social History Tobacco Use Types Packs/Day Years Used Date Smoking Tobacco: Never Tobacco Cessation:Counseling Given: Not Answered Alcohol Use Standard Drinks/Week Comments Yes 0 [...] on file Sexual Orientation Not on file Last Filed Vital Signs Vital Sign Reading Time Taken Comments Blood Pressure 130/82 04/12/2025 2:56 PM EDT Pulse - - Temperature - - Respiratory Rate - - Oxygen Saturation - - Inhaled Oxygen Concentration - - Weight 148 kg (327 lb 4 oz) 04/12/2025 2:56 PM E DT Height 177.8 cm (5' 10 ) 07/26/2024 8:36 AM EDT Body Mass Index 46.96 07/26/2024 8:36 AM EDT Plan of Treatment Upcoming Encounters Date Type Department Care Team (Late st Contact Info) Description 04/27/2025 1:00 PM EDT Routine [facility] [address] [place], [place] [address] [place] [address] Kelle Mosley PA [address] [facility] [place] [address] 04/27/2025 3:00 PM EDT Ancillary Procedure [facility] [address] [place] [address] Health Maintenance Due Date Last Done Comments Influenza Vaccine (Season Ended) 2025 10/28/20, 03/21/2014 Pap Smear 12/27/2027 12/27/2024, 06/23, 01/02/2021, Additional history exists Cervical Cancer Screening 07/09/2028 HPV/Cotest 07/09/2028 07/09/2023 Procedures Procedure Name Priority Date/Time Associated Diagnosis Comments POCT URINALYSIS DIPSTICK Routine 04/12/2025 3:28 PM EDT Third trimester POCT URINALYSIS DIPSTICK Routine 03/29/2025 3:51 PM EDT 30 weeks gestation of POCT URINALYSIS DIPSTICK Routine 03/15/2025 3:29 PM EDT Third trimester GLUCOSE 1 HOUR Routine 03/06/2025 9:29 AM EDT ALL CBC WITH AUTO DIFF Routine 03/06/2025 9:29 AM EDT POCT URINALYSIS DIPSTICK Routine 02/06/2025 3:48 PM EDT 23 weeks gestation of Second trimester US OB 14+ WEEKS ANATOMY SCAN Routine 01/23/2025 12:09 PM EST Screening, , for anatomic survey PAP SMEAR Routine 12/27/2024 12:00 AM EST THINPREP PAP AND HPV MRNA E6/E7 W/RFL HPV 16,18/45 Routine 07/09/2023 3:38 PM EDT Well woman exam with routine gynecological exam from Last 3 Months or Most Recently Relevant to Health Maintenance Results * (ABNORMAL) POCT urinalysis dipstick manually resulted (04/12/2025 3:28 PM EDT) Only the most recent of4 resultswithin the time period is included. Pathologist [facility] Color, UA Yellow Clarity, UA Clear Glucose, [...] Positive Urine 04/12/2025 3:28 PM EDT Graham Dante DO POINT OF CARE TEST ENTER/EDIT OR DERABLES Edited Result - Final * GLUCOSE 1 HOUR (03/06/2025 9:29 AM EDT) Pathologist [facility] GLUCOSE 1 HOUR 116 <130 mg/dL TBH 03/06/2025 9:29 AM EDT 03/06/2025 9:32 AM EDT Narrative [facility] - 03/06/2025 10:05 AM EDT Graham Dante DO LAB BLOOD ORDERABLES Final Resul t [facility] * (ABNORMAL) ALL CBC WITH AUTO DIFF (03/06/2025 9:29 AM EDT) [facility] TB WBC 10.4 4.0 - 11.0 10 3/uL TBH TBH RBC 3.96(L) 4.20 - 5.40 10 6/uL TBH TBH HGB 12.1 12.0 - 16.0 g/dL TBH TBH HCT 35.7(L) 36.0 - 48.0 % TBH TBH MCV 90.2 81.0 - 99.0 fL TBH TBH MCH 30.6 26.7 - 34.0 pg TBH TBH MCHC 33.9 29.9 - 35.2 g/dL TBH TBH RDW 12.6 11.0 - 15.0 % TBH TBH PLT 242 150 - 450 10 3/uL TBH TBH MPV 8.9(L) 9.5 - 13.5 fL TBH NEUTROPHILS PERCENT AUTO 81.7(H) 43.0 - 75.0 % TBH LYMPHOCYTES PERCENT AUTO 11.3(L) 20.5 - 60.0 % TBH MONOCYTES PERCENT AUTO 5.4 1.7 - 12.0 % TBH TBH EO % 0.7(L) 0.9 - 7.0 % TBH BASOPHILS PERCENT AUTO 0.3 0.2 - 2.0 % TBH IMMATURE GRANULOCYTES PCT AUTO 0.6(H) 0.0 - 0.5 % TBH NEUTROPHILS ABSOLUTE AUTO 8.5(H) 1.4 - 6.5 10 3/uL TBH LYMPHOCYTES ABSOLUTE AUTO 1.2 1.2 - 3.8 10 3/uL TBH MONOCYTES ABSOLUTE AUTO 0.6 0.3 - 0.8 10 3/uL TBH TBH EO # 0.1 0.0 - 0.7 10 3/uL TBH BASOPHILS ABSOLUTE AUTO 0.0 0.0 - 0.1 10 3/uL TBH IMMATURE GRANULOCYTES ABS AUTO 0.06(H) 0.00 - 0.03 10 3/uL TBH 03/06/2025 9:29 AM EDT 03/06/2025 9:32 AM EDT Narrative [facility] - 03/06/2025 9:44 AM EDT us Graham Howell DO [facility] Final Result [facility] * US OB 14+ weeks anatomy scan (01/23/2025 12:09 PM EST) Anatomical Region Laterality Modality Body Ultrasound 01/24/2025 9:26 AM EST Narrative 01/24/2025 9:26 AM EST EXAM: US OB 14+ WEEKS ANATOMY SCAN [...] II, MD, PHD at 24-Jan-2025 09:25:38 AM [facility] Procedure Note Tato Amaya MD - 01/24/2025 EXAM: US OB 14+ WEEKS ANATOMY SCAN HISTORY: anatomy. TECHNIQUE: Two-dimensional transabdominal grayscale ultrasound imaging ofthe pelvis was performed. Exam limited due to patient body habitus. FINDINGS: Gestation: Single Presentation: Cephalic Cardiac Activity: 136 beats per minute Placental Location: Anterior with no sonographic abnormalitiesidentified. Distance from Placental Tip to Cervix: 7.8 [...] is 21 weeks 3 days (+/- 7 daysgestation). Estimated Weight: 443 grams, +/- 66 grams [...] gestation 21 weeks, 0 days by LMP. Today'sultrasound measurements correlate with a gestational age of 21 weeks 3days. Estimated weight is 443 grams, +/- 66 grams ( 1 lb 0 oz) whichcorrelates to 81 %. ABEL is 06/02/2025. 2. Unremarkable ultrasound of the anatomy. Electronically Signed:Electronically signed by TATO AMAYA II, MD, PHDat 24-Jan-2025 09:25:38 AM [facility] us Kelle [facility] IMG OB US PROCEDURES Final Resul t * Pap Smear (12/27/2024 12:00 AM EST) Swab Cervical swab / Unknown us Kelle [facility] LAB CYTOLOGY ORDERABLES Final Re sult EXTERNAL LAB * THINPREP PAP AND HPV MRNA E6/E7 W/RFL HPV 16,18/45 (07/09/2023 3:38 PM EDT) [facility]elle [facility] LAB BLOOD ORDERABLES Final Resul t EXTERNAL LAB from Last 3 Months or Most Recently Relevant to Health Maintenance Insurance [employer] Care Teams Locomotive Repairer Diesel Relationship Specialty Start Date End Date Shashi Hargrove MD [address] [place] [address] PCP - General Family Medicine 05/11/23
--- OUTSIDE RECORDS SUMMARY | 2025-04-25 15:55 | XMS_ITS | Encounter Summary ---
Author Organization [facility] Address [address] [place] [address] Care Team Providers Care Manager Clinical Name Role Phone Shashi Hargrove MD Primary Care Provider [phone] Encounter Details Date Type Department Care Team ([facility] Contact Info) Description 05/03/2023 Abstract [facility] OB [address] [place] [address] [place] [address] Kelle Mosley PA [address] [place] [address] Dr [place], [facility]11 Social History Tobacco Use Types Packs/Day Years Used Date Smoking Tobacco: Never Tobacco Cessation:Counseling Given: Not Answered Alcohol Use Standard Drinks/Week Comments Yes 0 (1 standard drink = 0.6 oz pure alcohol) 1-2 drinks less than monthly in the past year, Caffeine intake: 2-3 cups per day Comments Unknown Sex and Gender Information Value Date Recorded Sex Assigned at Not on file Legal Sex Female 7:02 PM EDT Gender Identity Not on file Sexual Orientation Not on file documented as of this encounter Plan of Treatment Upcoming Encounters Date Type Department Care Team ([facility] Contact Info) Description 04/27/2025 1:00 PM EDT Routine [facility] OB [address] [place] [address] [place] [address] Kelle Mosley PA [address] [place] [address] Dr [place], [facility]11 04/27/2025 3:00 PM EDT Ancillary Procedure [facility] OB [address] [place] [address] [place] [address] documented as of this encounter Visit Diagnoses Not on filedocumented in this encounter Care Teams Manager Clinical Relationship Specialty Start Date End Date Shashi Hargrove MD [address] [place] [address] PCP - General Family Medicine 05/11/23 documented as of this encounter
--- OUTSIDE RECORDS SUMMARY | 2025-04-25 15:55 | XMS_ITS | Encounter Summary ---
Author Organization [facility] Address [address] [place] [address] Care Team Providers Care Textile Pin Worker Name Role Phone Shashi Hargrove MD Primary Care Provider [phone] Encounter Details Date Type Department Care Team ([facility] Contact Info) Description 06/04/2023 Abstract [facility] [address] [facility] [place] [address] Graham Howell DO [address] [facility] [address] Neisha Dill, [facility]11 Social History Tobacco Use Types Packs/Day Years Used Date Smoking Tobacco: Never Alcohol Use Standard Drinks/Week Comments Yes 0 (1 standard drink = 0.6 oz pure alcohol) 1-2 drinks less than monthly in the past year, Caffeine intake: 2-3 cups per day Comments No Sex and Gender Information Value Date Recorded Sex Assigned at Not on file Legal Sex Female 7:02 PM EDT Gender Identity Not on file Sexual Orientation Not on file documented as of this encounter Plan of Treatment Upcoming Encounters Date Type Department Care Team ([facility] Contact Info) Description 04/27/2025 1:00 PM EDT Routine [facility] [address] [facility] [place] [address] Kelle Mosley PA [address] [place], [facility]11 04/27/2025 3:00 PM EDT Ancillary Procedure [facility] OB [address] [place], [place] [address] [address] documented as of this encounter Visit Diagnoses Not on filedocumented in this encounter Care Teams Textile Pin Worker Relationship Specialty Start Date End Date Shashi Hargrove MD [address] [place] [address] PCP - General Family Medicine 05/11/23 documented as of this encounter
--- OUTSIDE RECORDS SUMMARY | 2025-04-25 15:55 | XMS_ITS | Clinical Summary ---
Author Organization [facility] Address [address] [place] [address] Care Team Providers Care Manager Of Case Management Name Role Phone Shashi Hargrove MD Primary Care Provider [phone] Allergies No known active allergies Medications sertraline (ZOLOFT) 100 MG tablet Take 100 mg by mouth daily Active linaclotide (LINZESS) 145 MCG capsule Take 145 mcg by mouth every morning (before breakfast) Active Active Problems Problem Noted Date Diagnosed Date Dermoid cyst of left ovary 04/10/2015 Vaginal delivery 09/06/2014 Immunizations Immunization Administration Dates Next Due Influenza Virus Vaccine 03/21/2014 Family History Medical History Relation Name Comments High Cholesterol Father Cancer Mother Cancer Paternal Grandfather Diabetes Paternal Grandmother Relation Name Status Comments Father Mother Paternal Grandfather Paternal Grandmother Social History Tobacco Use Types Packs/Day Years [...] Sign Reading Time Taken Comments Blood Pressure 122/80 12/02/2024 7:42 PM EST Pulse 105 12/02/2024 7:38 PM EST Temperature 37.4 C (99.4 F) 12/02/2024 7:40 PM EST Respiratory Rate 18 12/02/2024 7:38 PM EST Oxygen Saturation 99% 12/02/2024 7:38 PM EST Inhaled Oxygen Concentration - - Weight 123.4 kg (272 lb) 02/14/2019 1:48 PM EDT Height 180.3 cm (5' 11 ) 02/14/2019 1:48 PM EDT Body Mass Index 37.94 02/14/2019 1:48 PM EDT Plan of Treatment Health Maintenance Due Date Last Done Comments Depression Screen 2005 Varicella vaccine (1 of 2 - 13+ 2-dose series) 2006 Hepatitis C screen 2011 DTaP/Tdap/Td vaccine (1 - Tdap) 2012 Hepatitis B vaccine (1 of 3 - 19+ 3-dose series) 2012 Pap smear 12/20/2021 12/20/2018, 12/20/2018, 10/24/2014 Cervical cancer screen 2023 HPV (without or with Pap) 2023 COVID-19 Vaccine (3 - 2023-2 5 season) 2024 04/15/2021, 03/18/2021 Flu vaccine (Season Ended) 06/23/202510/28, 03/21/2014 HIV screen Completed 02/21/2014 HPV vaccine Aged Out No longer eligi ble based on patient's age to complete this topic Hepatitis A vaccine Aged Out No longe r eligible based on patient's age to complete this topic Hib vaccine Aged Out No longer eligi ble based on patient's age to complete this topic Meningococcal (ACWY) vaccine Aged Out No longer eligible based on patient's age to complete this topic Meningococcal B vaccine Aged Out No l onger eligible based on patient's age to complete this topic Pneumococcal 0-49 years Vaccine Aged Out No longer eligible b ased on patient's age to complete this topic Polio vaccine Aged Out No longer elig ible based on patient's age to complete this topic Procedures Procedure Name Priority Date/Time Associated Diagnosis Comments PAP SMEAR Routine 12/20/2018 6:10 PM EST Women's annual routine gynecological examination HIV RAPID 1&2 Routine 02/21/2014 2:51 PM EDT from Last 3 Months or Most Recently Relevant to Health Maintenance Results * PAP SMEAR (12/20/2018 6:10 PM EST) Comment SPECIMEN RECEIVED 12/21/2018 7:08 AM EST [facility] CERVICAL SWAB / Unknown 12/20/2018 6:10 PM EST 12/20/2018 6:10 PM EST Abid Mcgill MD PATHOLOGY/CYTOLOGY ORDERABLES Final Result Performing Organization Address City/[facility]/ZIP Co de Phone Number [facility] [address] [place] [address], [facility] [phone] [address], [facility] [phone] * HIV Rapid 1&2 (02/21/2014 2:51 PM EDT) [facility] Rapid HIV 1&2 NONREACTIVE NR 02/22/2014 2:29 PM EDT [facility] Comment: Interpretation: The presence of antibody to HIV and its association with the potential infectivity, transmission or diagnosis of AIDS has not been established. Furthermore, a 'Non-Reactive' test result does not exclude the possibility of exposure to or infection with HIV. If the above test result is 'Reactive', the Laboratory will order the confirmatory test. The performance characteristics of this test were determined by [facility]. It has not been cleared or approved by the U.S. Food and Drug Administration. The FDA has determined that such clearance is not necessary. Performed at [address] [place] [address] ([phone] 02/21/2014 2:51 PM EDT 02/21/2014 2:51 PM EDT Rachel Mejía FURNACE MAINTENANCE - CNM IMMUNOLOGY ORDERABLES Final Result Performing Organization Address City/[facility]/ZIP Co de Phone Number [facility] [address] [place] [address], [facility] [phone] [facility] from Last 3 Months or Most Recently Relevant to Health Maintenance Insurance [facility] [employer] Advance Directives * Full Code (Latest Code Status on File) Date Activated Date Inactivated Comments 04/10/2015 8:54 AM 04/10/2015 5:11 PM * Full Code Date Activated Date Inactivated Comments 09/06/2014 12:25 AM 09/07/2014 4:46 PM * Full Code Date Activated Date Inactivated Comments 09/04/2014 3:03 PM 09/06/2014 12:25 AM Care Teams Manager Of Case Management Relationship Specialty Start Date End Date Shashi Hargrove MD [address] [place] [address] PCP - General 04/05/15
--- OUTSIDE RECORDS SUMMARY | 2025-04-25 15:55 | XMS_ITS | Encounter Summary ---
Author Organization [facility] Address [address] [place] [address] Care Team Providers Care Draw Frame Operator Name Role Phone Shashi Hargrove MD Primary Care Provider [phone] Encounter Details Date Type Department Care Team ([facility] Contact Info) Description 06/02/2024 Abstract [facility] OB [address] [place] [address] Graham Howell DO [address] [facility] [address] Neisha Dill, [facility]11 Social History Tobacco Use Types Packs/Day [...] Upcoming Encounters Date Type Department Care Team ([facility] Contact Info) Description 04/27/2025 1:00 PM EDT Routine [facility] OB [address] [facility] [place] [address] Kelle Mosley PA [address] [place], [facility]11 04/27/2025 3:00 PM EDT Ancillary Procedure [facility] OB [address] [place], [place] [address] [address] documented as of this encounter Visit Diagnoses Not on filedocumented in this encounter Care Teams Draw Frame Operator Relationship Specialty Start Date End Date Shashi Hargrove MD [address] [place] [address] PCP - General Family Medicine 05/11/23 documented as of this encounter
--- OUTSIDE RECORDS SUMMARY | 2025-04-25 15:55 | XMS_ITS | Encounter Summary ---
Author Organization [facility] Address [address] [place] [address] Care Team Providers Care Used Car Lot Porter Name Role Phone Shashi Hargrove MD Primary Care Provider [phone] Encounter Details Date Type Department Care Team ([facility] Contact Info) Description 04/25/2025 Telephone [facility] OB [address] [facility] [place] [address] Graham Howell, DO [address] [facility] [address] Niesha Dill, [facility]11 Social History Tobacco Use Types Packs/Day Years [...] on file documented as of this encounter Miscellaneous Notes * Telephone Encounter - Yajaira KERI Alba - 04/25/2025 10:27 AM EDT I am 34 weeks . I am a patient of Dr Howell. I have had like, a little bit of some kind of moisture. Pretty consistently since Thursday. And I just do not know I do not know what it is if I should be concerned. Patient call was returned she states having contractions for a little while go away with resting. On Thursday had small gush and clear wetness some discharge and clear pale color and almost small wet feeling. Patient states that she is wearing a panty liner or pad. Patient states always feeling like having to go to bathroom not doesn't. Patient encouraged to be checked out at [facility] or if she waits for appointment she needs to monitor for symptoms getting stronger, if this happens to report to [facility] for eval as we worry about amniotic fluid and to monitor kicks on baby. PVU. documented in this encounter Plan of Treatment Upcoming Encounters Date Type Department Care Team (Late st Contact Info) Description 04/27/2025 1:00 PM EDT Routine [facility] OB [address] [facility] [place] [id number] Kelle Mosley PA [address] [facility] [address] [place], [place] [id number] 04/27/2025 3:00 PM EDT Ancillary Procedure [facility] OB [address] [facility] [place] [address] documented as of this encounter Visit Diagnoses Not on filedocumented in this encounter Care Teams Used Car Lot Porter Relationship Specialty Start Date End Date Shashi Hargrove MD [address] [place] [facility] [place] [address] PCP - General Family Medicine 05/11/23 documented as of this encounter
--- OUTSIDE RECORDS SUMMARY | 2025-04-25 15:55 | XMS_ITS | Encounter Summary ---
Author Organization [facility] Address [address] [place] [address] Care Team Providers Care Timber Framer Helper Name Role Phone Shashi Hargrove MD Primary Care Provider [phone] Encounter Details Date Type Department Care Team ([facility] Contact Info) Description 05/31/2024 Abstract [facility] OB [address] [place] [address] Graham Howell DO [address] [facility] [address] Neisha Dill, [facility]11 Social History Tobacco Use Types Packs/Day Years [...] Upcoming Encounters Date Type Department Care Team ([facility] Contact Info) Description 04/27/2025 1:00 PM EDT Routine [facility] OB 102 [facility] [place] [address] Kelle Mosley PA [address] [place], [facility]11 04/27/2025 3:00 PM EDT Ancillary Procedure [facility] OB [address] [place], [place] [address] [address] documented as of this encounter Visit Diagnoses Not on filedocumented in this encounter Care Teams Timber Framer Helper Relationship Specialty Start Date End Date Shashi Hargrove MD [address] [place] [address] PCP - General Family Medicine 05/11/23 documented as of this encounter
--- OUTSIDE RECORDS SUMMARY | 2025-04-25 15:55 | XMS_ITS | Encounter Summary ---
Author Organization [facility] Address [address] [place] [address] Care Team Providers Care Critical Care Nurse Name Role Phone Shashi Hargrove MD Primary Care Provider [phone] Encounter Details Date Type Department Care Team ([facility] Contact Info) Description 05/31/2024 Abstract [facility] OB [address] [place] [address] Graham Howell DO [address] [facility] [address] Neisha Dill, [facility]11 Social History Tobacco Use Types Packs/Day [...] Upcoming Encounters Date Type Department Care Team ([facility] Contact Info) Description 04/27/2025 1:00 PM EDT Routine [facility] OB [address] [facility] [place] [address] Kelle Mosley PA [address] [place], [facility]11 04/27/2025 3:00 PM EDT Ancillary Procedure [facility] OB [address] [place], [place] [address] [address] documented as of this encounter Visit Diagnoses Not on filedocumented in this encounter Care Teams Critical Care Nurse Relationship Specialty Start Date End Date Shashi Hargrove MD [address] [place] [address] PCP - General Family Medicine 05/11/23 documented as of this encounter
--- OUTSIDE RECORDS SUMMARY | 2025-04-25 15:56 | XMS_ITS | Patient Health Record ---
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 Absolute Auto 0.1 0.0-0.7 10 3/uL Basophils Absolute Auto 0.0 0.0-0.1 10 3/uL Immature Granulocytes Abs Auto 0.06 0.00-0.03 10 3/uL Performing Lab: see note - [facility] LB Glucose 1 Hour Reviewed date:03/06/2025 08:37:44 PM Interpretation: Performing Lab: Notes/Report: [facility] , Glucose 1 Hour 116 <130 mg/dL Performing Lab: see note - [facility] LB HBsAg Screen Reviewed date:12/24/2024 04:34:56 PM Interpretation: Performing Lab: Notes/Report: [facility] , HBsAg Screen Negative Negative Performed at: [address] [id number] Spray Gun Operator: Aguilar Machado PhD, Phone: [phone] Performing Lab: see note - [facility] HCV Antibody RFX to Quant PC R Reviewed date:12/24/2024 04:34:56 PM Interpretation: Performing Lab: Notes/Report: [facility] , HCV Ab Non Reactive Non Reactive Interpretation: Comment . Not infected with HCV unless early or acute infection is suspected (which may be delayed in an immunocompromised individual), or other evidence exists to indicate HCV infection. Performing Lab: see note - [facility] LB Rapid Plasma Reagin, Quant Reviewed date:12/24/2024 04:34:56 PM Interpretation: Performing Lab: Notes/Report: [facility] , Rapid Plasma Reagin, Quant Non Reactive NonRea<1:1 titer Please Note: This test does not meet current guidelines for screening and diagnosis of syphilis. This test is intended for following treatment response in patients being treated for syphilis infection. To screen for syphilis infection, a reflex cascade that includes both RPR and a treponema-specific assay should be utilized, such as Treponema pallidum (Syphilis) Screening [place] (447141) or Rapid Plasma Reagin (RPR) Test With Reflex to Quantitative RPR and Confirmatory Treponema pallidum Antibodies (209938). Performed at: [facility] [address] [id number] Spray Gun Operator: Aguilar Machado PhD, Phone: [phone] Performing Lab: see note - [facility] LB HIV Ab/p24 Ag with Reflex Reviewed date:12/24/2024 04:34:56 PM Interpretation: Performing Lab: Notes/Report: [facility] , HIV Ab/p24 Ag Screen Non Reactive Non Reactive HIV-1/HIV-2 antibodies and HIV-1 p24 antigen were NOT detected. There is no laboratory evidence of HIV infection. HIV Negative Performed at: [facility] [address] [id number] Spray Gun Operator: Aguilar Machado PhD, Phone: [phone] Performing Lab: see note [facility] Type and Screen Reviewed date:12/24/2024 04:34:56 PM Interpretation: Performing Lab: Notes/Report: [facility] , Blood Type B Positive Antibody Screen NEGATIVE RUBELLA AB IGG Reviewed date:12/24/2024 04:34:56 PM Interpretation: Performing Lab: Notes/Report: [facility] , Rubella Antibodies, IgG 0.91 Immune > 0.99 index A second sample should be collected and tested no less than 2-4 weeks. Non-immune <0.90 Equivocal 0.90 - 0.99 Immune >0.99 Performed at: [facility] [address] [id number] Spray Gun Operator: Aguilar Machado PhD, Phone: [phone] Performing Lab: see note - [facility] LB DRUG SCREEN RAPID (URINE) Reviewed date:12/24/2024 04:34:56 PM Interpretation: Performing Lab: Notes/Report: [facility] , Cannabinoid Screen Urine NEGATIVE NEGATIVE Phencyclidine Screen Urine NEGATIVE NEGATIVE Cocaine Screen Urine NEGATIVE NEGATIVE Methamphetamines Screen Urine NEGATIVE NEGATIVE Opiate Screen Urine NEGATIVE NEGATIVE Amphetamine Screen Urine NEGATIVE NEGATIVE Benzodiazepines Screen Urine NEGATIVE NEGATIVE Tricyclic Antidepressant Urine NEGATIVE NEGATIVE Methadone Screen Urine NEGATIVE NEGATIVE Barbiturates Screen Urine NEGATIVE NEGATIVE Oxycodone Screen Urine NEGATIVE NEGATIVE Buprenorphine Screen Urine NEGATIVE NEGATIVE DRUG CLASS TEST SYSTEM CUT-OFF CONCENTRATIONS ARE FOLLOWS: AMP (Amphetamine): 500 ng/mL BAR (Barbiturates): 200 ng/mL BZO (Benzodiazepines): 150 ng/mL BUP (Buprenorphine): 10 ng/mL MALVIN (Cocaine): 150 ng/mL mAMP (Methamphetamine): 500 ng/mL MTD (Methadone): 200 ng/mL OPI (Opiates): 100 ng/mL OXY (Oxycodone): 100 ng/mL PCP (Phencyclidine): 25 ng/mL THC (Cannabinoids): 50 ng/mL TCA (Trycyclic Antidepressants): 300 ng/mL Performing Lab: see note ML - [facility] LB TSH Reviewed date:07/04/2024 08:33:26 PM Interpretation: Performing Lab: Notes/Report: [facility] , Thyroid Stimulating Hormone 4.094 0.358-3.740 uIU/mL Performing Lab: see note ML - [facility] LB T4 Reviewed date:07/04/2024 08:33:26 PM Interpretation: Performing Lab: Notes/Report: [facility] , T4 Thyroxine 6.80 4.80-13.90 ug/dL Performing Lab: see note - [facility] LB FREE T3 Reviewed date:07/04/2024 08:33:26 PM Interpretation: Performing Lab: Notes/Report: [facility] , Free T3 2.64 2.18-3.98 pg/mL Performing Lab: see note ML - [facility] LB DHEA-Sulfate Reviewed date:06/12/2024 04:56:24 PM Interpretation: Performing Lab: Notes/Report: [facility] , DHEA-Sulfate 145.0 84.8-378.0 ug/dL Performing Lab: see note LC - [facility] LB FSH Reviewed date:06/12/2024 04:56:24 PM Interpretation: Performing Lab: Notes/Report: [facility] , FSH 5.9 . mIU/mL Adult Female Range Follicular phase 3.5 - 12.5 Ovulation phase 4.7 - 21.5 Luteal phase 1.7 - 7.7 Postmenopausal 25.8 - 134.8 Performed at: [address] [id number] Spray Gun Operator: Aguilar Machado PhD, Phone: [phone] Performing Lab: see note [facility] Luteinizing Hormone(LH) Reviewed date:06/12/2024 04:56:24 PM Interpretation: Performing Lab: Notes/Report: [facility] , Luteinizing Hormone(LH) 9.5 . mIU/mL Adult Female Range Follicular phase 2.4 - 12.6 Ovulation phase 14.0 - 95.6 Luteal phase 1.0 - 11.4 Postmenopausal 7.7 - 58.5 Performing Lab: see note [facility] DHEA, Serum Reviewed date:06/16/2024 08:59:38 PM Interpretation: Performing Lab: Notes/Report: [facility] , DHEA, Serum 140 31-701 ng/dL This test was developed and its performance characteristics determined by [facility]. It has not been cleared or approved by the Food and Drug Administration. Performed at: [address] [id number] Spray Gun Operator: Emanuel Varela MD, Phone: [phone] Performing Lab: see note [facility] TSH Reviewed date:06/09/2024 08:39:42 PM Interpretation: Performing Lab: Notes/Report: [facility] , Thyroid Stimulating Hormone 3.872 0.358-3.740 uIU/mL Performing Lab: see note ML - [facility] PREG QUANT HCG Reviewed date:06/09/2024 08:39:42 PM Interpretation: Performing Lab: Notes/Report: [facility] , HCG Quantitative <1 5-50 0.2-1 WEEK 50-500 1-2 WEEKS 100-5,000 2-3 WEEKS 500-10,000 3-4 WEEKS 1,000-50,000 4-5 WEEKS 10,000-100,000 5-6 WEEKS 15,000-200,000 6-8 WEEKS 10,000-100,000 2-3 MONTHS Performing Lab: see note ML - [facility] GLYCOHEMOGLOBIN A1C Reviewed date:06/09/2024 08:39:42 PM Interpretation: Performing Lab: Notes/Report: [facility] , Glycohemoglobin A1C 5.4 4.5-6.2 % ADA RECOMMENDED LIMIT 4.0 - 6.0 ADA THERAPEUTIC TARGET < 7.0 ACTION SUGGESTED > 7.0 Estimated Average Glucose 108 Performing Lab: see note ML - [facility] FREE T4 Reviewed date:06/09/2024 08:39:42 PM Interpretation: Performing Lab: Notes/Report: [facility] , Free T4 0.84 0.76-1.46 ng/dL Performing Lab: see note ML - [facility] LB Manual Differential Reviewed date:04/28/2024 12:41:58 PM Interpretation: Performing Lab: Notes/Report: [facility] , Segmented Neutrophils % Manual 89.0 Lymphocytes Percent Manual 3.0 20.5-60.0 % Monocytes Percent Manual 6.0 1.7-12.0 % Eosinophils Percent Manual 2.0 0.9-7.0 % Basophils Percent Manual 0.0 0.2-2.0 % Segmented Neut Absolute Manual 9.16 1.4-6.5 10 3/uL Lymphocytes Absolute Manual 0.30 1.20-3.80 10 3/uL Monocytes Absolute Manual 0.61 0.30-0.80 10 3/uL Eosinophils Absolute Manual 0.20 0.00-0.70 10 3/uL Basophils Abs Manual 0.00 0.00-0.10 1 0 3/uL Performing Lab: see note ML - [facility] PREG HCG QUAL Reviewed date:04/28/2024 12:41:58 PM Interpretation: Performing Lab: Notes/Report: [facility] , HCG Qualitative NEGATIVE NEGATIVE Performing Lab: see note ML - [facility] INFLUENZA A AND B AG Reviewed date:04/28/2024 12:41:58 PM Interpretation: Performing Lab: Notes/Report: [facility] , Influenza Virus A Antigen Negative Negative for Flu A protein antigen. Infection due to Flu A cannot be ruled out. Flu A antigen in the sample may be below the detection limit of the test. Influenza Virus B Antigen Negative Negative for Flu B protein antigen. Infection due to Flu B cannot be ruled out. Flu B antigen in the sample may be below the detection limit of the test. Performing Lab: see note ML - [facility] PREG HCG QUAL Reviewed date:04/27/2024 12:29:27 PM Interpretation: Performing Lab: Notes/Report: [facility] , HCG Qualitative NEGATIVE NEGATIVE Performing Lab: see note ML - [facility] LB XR chest 1V Reviewed date:02/02/2025 07:34:33 PM Interpretation: Performing Lab: Notes/Report: Source Facility: [facility] [place] [address] [place] [address] XRay Report Signed Patient: JOCELYN FREEMAN V MR#: [id number] : 1995 Acct:[id number] Age/Sex: 29 / F ADM Date: 02/02/25 Loc: ER Attending Dr: Ordering Physician: Ashlee Erickson M.D. Date of Service: 02/02/25 Procedure(s): XR chest 1V Accession Number(s): [id number] cc: Melodie Hargrove M.D.; Ashlee Erickson M.D. The [place] [address] Patient Name: JOCELYN FREEMAN MRN: [id number] date: 1995 Sex: F Assigned Patient Location: ER Current Patient Location: ER Accession/Order Number: [id number] Exam Date: 02/02/2025 11:16 Report Date: 02/02/2025 11:18 At the request of: ASHLEE ERICKSON MD Procedure: XR chest 1V PORTABLE AP ERECT CHEST 1050 hours CLINICAL HISTORY: CP today. Patient is 22 weeks . COMPARISON: 04/28/2024 Evaluation is slightly limited by large body habitus. The heart is within normal limits. No developing consolidation is noted, are clear. There is no effusion or pneumothorax. The osseous structures are intact. XR/XR chest 1V IMPRESSION: NO ACUTE FINDINGS Impression dictated by: Tangela Ellis M.D.02/02/2025 11:18 AM Dictation Location: [place] [address] Electronically authenticated by: [id number] Y Date: 02/02/2025 11:18 Dictated By: Tangela Ellis M.D. Signed By: 02/02/25 1120 DD/ 1118 TD/TT: Accounts Payable Supervisor: [facility] [place] [id number] XRay Report Signed Patient: JOCELYN FREEMAN V MR#: [id number] : 1995 Acct:[id number] Age/Sex: 29 / F ADM Date: 02/02/25 Loc: ER Attending Dr: Ordering Physician: Ashlee Erickson M.D. Date of Service: 02/02/25 Procedure(s): XR chest 1V Accession Number(s): [id number] cc: Melodie Hargrove M.D. ; Ashlee Erickson M.D. [facility] [place] [address] Patient Name: JOCELYN FREEMAN MRN: [id number] date: 1995 Sex: F Assigned Patient Location: ER Current Patient Loca tion: ER Accession/Order Numb er: [id number] Exam Date: 02/02/2025 11:16 Report Date: 02/02/2025 11:18 At the request of: ASHLEE ERICKSON MD Procedure: XR chest 1V PORTABLE AP ERECT CH EST 1050 hours CLINICAL HISTORY: CP today. Patient is 22 weeks . COMPARISON: 04/28/2024 Evaluation is slight ly limited by large body habitus. The heart is within normal limits. No developing consolidation is noted, are clear. There is no effusion or pneumoth orax. The osseous structures are intact. X R/XR chest 1V IMPRESSION: NO ACUTE FINDINGS Impression dictated by: Tangela Ellis M.D.02/02/2025 11:18 AM Dictation Location: [place] [address] Electronically authenticated by: [id number] Y Date: 02/02/2025 11:18 Dictated By: Tangela Ellis M.D. Signed By: 02/02/25 1120 DD/ 1118 TD/TT: Accounts Payable Supervisor: ECG 12 lead Reviewed date:02/02/2025 10:00:35 PM Interpretation: Performing Lab: Notes/Report: Source Facility: [place] [address] [place] [address] Electrocardiograph Report Signed Patient: JOCELYN FREEMAN V MR#: [id number] : 1995 Acct:[id number] Age/Sex: 29 / F ADM Date: 02/02/25 Loc: ER Attending Dr: Ordering Physician: Ashlee Erickson M.D. Date of Service: 02/02/25 Procedure(s): ECG 12 lead Accession Number(s): [id number] cc: [facility] Test Date: 2025-02-02 Pat Name: JOCELYN FREEMAN Department: Room: - Gender: Female Correspondence Section Supervisor: : 1995 Requested By: 1030 Order Number: [id number] Reading MD: CYNDI FINK M.D. Measurements Intervals [place] Rate: 90 P: 44 UT: 220 QRS: -8 QRSD: 68 T: 41 QT: 342 QTc: 390 Interpretive Statements 1100 Sinus rhythm 2231 First degree AV block 8102 Low QRS voltage in chest leads 9150 abnormal ECG Compared to ECG 04/17/2023 10:07:42 First degree AV block now present Electronically Signed On 02-02-2025 20:26:48 EDT by CYNDI FINK M.D. Dictated By: CYNDI FINK Signed By: 02/02/252026 DD/ 38 TD/TT: Accounts Payable Supervisor: [place] [address] Electrocardiograph Report Signed Patient: JOCELYN FREEMAN V MR#: [id number] : 1995 Acct:[id number] Age/Sex: 29 / F ADM Date: 02/02/25 Loc: ER Attending Dr: Ordering Physician: Ashlee Erickson M.D. Date of Service: 02/02/25 Procedure(s): ECG 12 lead Accession Number(s): [id number] cc: [facility] Test Date: 2025-02-02 Pat Name: JOCELYN Culver Department: 53 Room: - Gender: Female Correspondence Section Supervisor: : 1995 Requ ested By: 1030 Order Number: [id number] Reading MD: CYNDI FINK M.D. Measurements Intervals [place] Rate: 90 P: 44 UT: 220 QRS: -8 QRSD: 68 T: 41 QT: 342 QTc: 390 Interpretive Statements 1100 Sinus rhythm 2231 First degree AV block 8102 Low QRS voltage in chest leads 9150 abnormal ECG Compared to ECG 04/17/2023 10:07:42 First degree AV bloc k now present Electronically Rocío d On 02-02-2025 20:26:48 EDT by CYNDI FINK M.D. Dictated By: CYNDI FINK Signed By: 02/02/252026 DD/ 38 TD/TT: Accounts Payable Supervisor: CBC AUTO DIFF Reviewed date:02/02/2025 07:34:33 PM Interpretation: Performing Lab: Notes/Report: [facility] , White Blood Count 10.7 4.0-11.0 10 3/uL Red Blood Count 4.20 4.20-5.40 10 6/uL Hemoglobin 12.7 12.0-16.0 g/dL Hematocrit 37.6 36.0-48.0 % Mean Corpuscular Volume 89.5 81.0-99.0 fL Mean Corpuscular Hemoglobin 30.2 26.7-34.0 pg Mean Corpuscular HGB Conc 33.8 29.9-35.2 g/dL Red Cell Distribution Width 12.8 11.0-15.0 % Platelet Count 260 150-450 10 3/uL Mean Platelet Volume 9.1 9.5-13.5 fL Neutrophils Percent Auto 78.4 43.0-75.0 % Lymphocytes Percent Auto 14.1 20.5-60.0 % Monocytes Percent Auto 6.0 1.7-12.0 % Eosinophils Percent Auto 0.9 0.9-7.0 % Basophils Percent Auto 0.2 0.2-2.0 % Immature Granulocytes Pct Auto 0.4 0.0-0.5 % Neutrophils Absolute Auto 8.4 1.4-6.5 10 3/uL Lymphocytes Absolute Auto 1.5 1.2-3.8 10 3/uL Monocytes Absolute Auto 0.6 0.3-0.8 10 3/uL Eosinophils Absolute Auto 0.1 0.0-0.7 10 3/uL Basophils Absolute Auto 0.0 0.0-0.1 10 3/uL Immature Granulocytes Abs Auto 0.04 0.00-0.03 10 3/uL Performing Lab: see note ML - [facility] LB IGP,Aptima HPV,Age Gdln Reviewed date:01/01/2025 11:26:48 AM Interpretation: Performing Lab: Notes/Report: SPATULA-ALONE CERVIX [facility] , Age Gdln ACOG Testing Note . TESTS RESULT FLAG UNITS REF RANGE LAB Clinician Provided Cytology Information Source.............Cer vix Other..............Pre gnant No. of containers..01 ThinPrep Vial Age Algo ACOG Soraida... 30-65 01 FLAG LEGEND: L-Low Normal,H-High Normal,LL-Alert Low,HH-Alert High <-Panic Low,>-Panic High,A-Abnormal,AA-Cri tical Abnormal Performed at: 01 =G [facility] [place] [id number] Haily Cook MD, IGP, Aptima HPV, rfx 16/18,45 Note . TESTS RESULT FLAG UNITS REF RANGE LAB DIAGNOSIS: 02 NEGATIVE FOR INTRAEPITHELIAL LESION OR MALIGNANCY. Specimen adequacy: 02 Satisfactory for evaluation. No endocervical component is identified. Performed by: 02 Janneth Guerrero, Termite Technician ([facility]) . 02 Note: Note 02 The Pap [...] L-Low Normal,H-High Normal,LL-Alert Low,HH-Alert High <-Panic Low,>-Panic High,A-Abnormal,AA-Cri tical Abnormal Performed at: [address] [place] [address] Haily Cook MD, HPV Aptima Negative Negative This nucleic acid amplification test detects fourteen high- risk HPV types (16,18,31,33,35,39,45, 51,52,56,58,59,66,68) without differentiation. Performed at: = - [address] [id number] Spray Gun Operator: Haily Cook MD, Phone: [phone] Performed at: [address], [place], [place] [id number] Spray Gun Operator: Haily Cook MD, Phone: [phone] Performing Lab: see note LC - [facility] LB Reason For Referral No Information Medications Medication SIG (Take, Route, Frequency, Duration) Notes Start Date End Date Status Raalzbjl-Eaywjitdh-Xffctdt h 3.5-87102-1.1 1 drop into affected eye Ophthalmic Four times a day for 7 days 12/08/2024 Active Sertraline HCl 100 MG TAKE 1 TABLET BY M OUTH EVERY DAY for 90 Active Active Cephalexin 500 MG 2 tabs Orally bid fo r 10 days 12/06/2024 Active Social History Tobacco Use: Social History Observation Description Date Details (start date - stop date) Never Smoker NA - NA Tobacco Use/Smoking Question Answer Notes Patient is a nonsmoker Alcohol Screen (Audit-C) Question Answer Notes Did you have a drink containing alcohol in the p ast year? No Points 0 Interpretation Negative AUDIT-C (Standard) Question Answer Notes Did you have a drink containing alcohol in the p ast year? No Points 0 Interpretation Negative Problems Problem Type SNOMED Code ICD Code Onset Dates Problem Status W/U Status Risk Notes Problem 03856008 Other hypoglycemia (E16.1) Active confirmed Problem Hypothyroidism (86224051) Hypothyroidism (E03.9) Active confirmed Problem Arthralgia (54771801) Arthralgia (M25.50) Active confirmed Problem Shingles (9648772) Shingles (B02.9) Active confirmed Problem Laboratory test result abnormal (498718047) Abnormal laboratory test (R89.9) Active confirmed Problem Irritable bowel (35502028) Irritable bowel (K58.9) Active confirmed Problem Attention deficit hyperactivity disorder (161947580) ADHD (F90.9) Active confirmed Vital Signs Blood pressure diastolic 70 mm Hg 12/06/2024 Height 71 in 12/06/2024 Blood pressure systolic 122 mm Hg 12/06/2024 Weight 325.2 lbs 12/06/2024 BMI 45.35 kg/m2 12/06/2024 Encounters Encounter Location Date Provider Diagnosis [facility] [address] [place] [address] 12/06/2024 Ethan Hoy Acute non-recurrent sinusitis, unspecified location J01.90 and Nasal congestion R09.81 [facility] [address] [place] [address] 05/23/[address] [facility] [address] [place] [address] 06/09/2024 Ethan Hargrove Hypothyroidism, unspecified E03.9 [facility] [address] [facility] [place] [address] 06/14/[address] [facility] [address] [place] [facility] [address] 06/30/[address] [facility] [address] [place] [address] 07/04/2024 Ethan Hargrove Hypothyroidism E03.9 [facility] [address] [place] [address] 09/15/2024 Ethan Tabaresy Other fatigue R53.83 and Abnormal weight gain R63.5 [facility] [address] [place] [address] 12/08/[address] [facility] [address] [place] [address] 12/12/2024 Ethan Hargrove Acute non-recurrent sinusitis, unspecified location J01.90 Assessments Encounter Date Diagnosis (ICD Code) Assessment Notes Treatment Notes Treatment Clinical Notes Section Notes 06/09/2024 Hypothyroidism, unspecified (ICD-10 - E03.9) 07/04/2024 Hypothyroidism (ICD-10 - E03.9) 09/15/2024 Other fatigue (ICD-10 - R53.83) 09/15/2024 Abnormal weight gain (ICD-10 - R63.5) 12/12/2024 Acute non-recurrent sinusitis, unspecified location (ICD-10 - J01.90) 12/06/2024 Acute non-recurrent sinusitis, unspecified location (ICD-10 - J01.90) Rest and drink more liquids, especially water. You may use a humidifier or vaporizer to help keep the drainage moist. Dbpg-dqp-hotypfi Nasal Saline may help the stuffy and runny nose. Use Ibuprofen and or Tylenol as needed for fever, chills, body aches or pain. Children 5 years old should not be given uskb-hep-tmiuneq cough and cold medications such as guaifenesin and dextromethorphan. If you're over age 5, you may try izum-uuq-teldjbw cold medications such as guaifenesin and dextromethorphan, [...] congestion (ICD-10 - R09.81) Plan Of Treatment Pending Test Test Name Order Date CMP (COMPLETE METABOLIC PANEL) UA (URINALYSIS, COMPLETE) 04/15/2023 UA (URINALYSIS, COMPLETE) 04/21/2023 HEMOGLOBIN A1C (GLYCO) 02/24/2024 IRON, TOTAL 02/24/2024 CBC WITH DIFF 02/24/2024 T3 FREE, T4 FREE and TSH 07/04/2024 INSULIN 04/02/2023 Urinalysis Microscopic 04/15/2023 Urinalysis Microscopic 04/21/2023 RHEUMATOID PANEL 10/28/2023 H PYLORI SCREEN 04/21/2023 Insulin Level 02/24/2024 PT and PTT 04/21/2023 CBC W/AUTO DIFF 04/21/2023 CULTURE URINE 04/15/2023 CULTURE URINE 04/21/2023 SLE PROFILE A 10/28/2023 SNR 05 URINALYSIS 03/31/2023 THYROID PROFILE WITH TSH 10/28/2023 THYROID PROFILE WITH TSH 09/15/2024 URINE MICROSCOPIC ONLY 03/31/2023 CT ABDOMEN W CON 11/29/2023 CT CHEST WO CON 03/03/2024 ECHOCARDIO M or 2D COMPLETE 11/02/2023 THYROID PANEL (T4/TSH/FREE T3) THYROID PANEL (T4/TSH/FREE T3) US renal bladder 12/29/2023 CT abdomen wo con 11/29/2023 Insurance Providers Payer Name Payer Address Payer Phone Subscriber Number Group Number Insured Name Patient Relationship to Insured Coverage Start Date Coverage End Date [employer] [place] [employer] [address] [facility] [phone] [id number] Jocelyn Freeman Self - patient is the insured 8 Medical (General) History Medical History History ICD Code Zoster without complications B02.9 Surgical History Surgery Date(Month/Year) Colonoscopy & EGD 04/27/24 Left Ovary Removal Angioplasty on Toes
--- OUTSIDE RECORDS SUMMARY | 2025-04-25 15:56 | XMS_ITS | Encounter Summary ---
Author Organization [facility] Address [address] [place] [address] Care Team Providers Care Still Tender Name Role Phone Shashi Hargrove MD Primary Care Provider [phone] Encounter Details Date Type Department Care Team ([facility] Contact Info) Description 10/14/2024 Abstract [facility] [address] [facility] [facility] [address] Graham Howell DO [address] [facility] [address] Neisha Dill, [facility]11 Social History Tobacco Use Types Packs/Day [...] PM EDT Routine [facility] [address] [facility] [facility] [address] Kelle Mosley PA [address] [place], [facility]11 04/27/2025 3:00 PM EDT Ancillary Procedure [facility] [address] [place], [place] [address] [address] documented as of this encounter Visit Diagnoses Not on filedocumented in this encounter Care Teams Still Tender Relationship Specialty Start Date End Date Shashi Hargrove MD [address] [place] [address] PCP - General Family Medicine 05/11/23 documented as of this encounter
--- OUTSIDE RECORDS SUMMARY | 2025-04-25 15:56 | XMS_ITS | Encounter Summary ---
Author Organization [facility] Address [address] [place] [address] Care Team Providers Care Chief Knowledge Officer Name Role Phone Shashi Hargrove MD Primary Care Provider [phone] Encounter Details Date Type Department Care Team ([facility] Contact Info) Description 12/23/2024 Abstract [facility] OB [address] [facility] [place] [address] Graham Howell DO [address] [facility] [address] Neisha Dill, [facility]11 Social History Tobacco Use Types Packs/Day [...] Encounters Date Type Department Care Team (Late Contact Info) Description 04/27/2025 1:00 PM EDT Routine [facility] [address] [facility] [place] [address] Kelle Mosley PA [address] [facility] [address] [place], [place] [id number] 04/27/2025 3:00 PM EDT Ancillary Procedure [facility] OB [address] [facility] [place] [address] documented as of this encounter Visit Diagnoses Not on filedocumented in this encounter Care Teams Chief Knowledge Officer Relationship Specialty Start Date End Date Shashi Hargrove MD [address] [place] [address] PCP - General Family Medicine 05/11/23 documented as of this encounter
--- OUTSIDE RECORDS SUMMARY | 2025-04-25 15:56 | XMS_ITS | Encounter Summary ---
Author Organization [facility] Address [address] [place] [place] [address] Care Team Providers Care Software Maintenance Engineer Name Role Phone Shashi Hargrove MD Primary Care Provider [phone] Encounter Details Date Type Department Care Team (Late st Contact Info) Description 04/11/2015 Post-op Telephone [facility] General Surgery [address] [place], [place] [id number] Leila Wolff RN Social History Tobacco Use Types Packs/Day Years [...] as of this encounter Plan of Treatment Not on file documented as of this encounter Visit Diagnoses Not on filedocumented in this encounter Care Teams Software Maintenance Engineer Relationship Specialty Start Date End Date Shashi Hargrove MD [address] [place] [address] PCP - General 04/05/15 documented as of this encounter
--- OUTSIDE RECORDS SUMMARY | 2025-04-25 15:56 | XMS_ITS | Encounter Summary ---
Author Organization [facility] Address [address] [place] [address] Care Team Providers Care Railroad Inspector Name Role Phone Shashi Hargrove MD Primary Care Provider [phone] Encounter Details Date Type Department Care Team ([facility] Contact Info) Description 06/28/2024 Clinisync Result Encounter [facility] External Department Unsolicited Deisy Howell DO [address] [facility] [address] Neisha Dill, [facility]11 Social History Tobacco Use Types Packs/Day [...] Upcoming Encounters Date Type Department Care Team ([facility] Contact Info) Description 04/27/2025 1:00 PM EDT Routine [facility] BCP OB [address] [place], [place] [address] [address] Kelle Mosley PA [address] [place], [place] [address] 04/27/2025 3:00 PM EDT Ancillary Procedure [facility] OB [address] [place], [place] [address] [address] documented as of this encounter Procedures Procedure Name Priority Date/Time Associated Diagnosis Comments US PELVIS TRANSVAGINAL 06/28/2024 8:07 AM EDT documented in this encounter Results * US PELVIS TRANSVAGINAL (06/28/2024 8:07 AM EDT) Anatomical Region Laterality Modality Other 06/28/2024 8:07 AM EDT Narrative 06/28/2024 8:09 [place] [address] Ultrasound Report Signed Patient: JOCELYN FREEMAN V MR#: [id number] : 1995 Acct:[id number] Age/Sex: 29 / F ADM Date: 06/27/24 Loc: [facility] Attending Dr: Deisy Howell D.O. Ordering Physician: Deisy Howell D.O. Date of Service: 06/27/24 Procedure(s): US pelvis transvaginal Accession Number(s): [id number] cc: Deisy Howell D.O.; Shashi Hargrove M.D. [address] [address] Patient Name: JOCELYN FREEMAN MRN: [id number] date: 1995 Sex: F Assigned Patient Location: [facility] Current Patient Location: Accession/Order Number: [id number] Exam Date: 06/27/2024 09:02 Report Date: 06/28/2024 [...] M.D. Signed By: 06/28/24808 DD/ 6 TD/TT: Automotive Manager: Procedure Note Radiology, Radiologist, - 06/28/2024 [place] [address] Ultrasound Report Signed Patient: JOCELYN FREEMAN VMR#: [id number] : 1995Acct:[id number] Age/Sex: 29 / FADM Date: 06/27/24 Loc: [facility] Attending Dr: Deisy Howell D.O. Ordering Physician: Deisy Howell D.O. Date of Service: 06/27/24 Procedure(s): US pelvis transvaginal Accession Number(s): [id number] cc: Deisy Howell D.O.; Shashi Hargrove M.D. The [place] [id number] Patient Name: JOCELYN FREEMAN MRN: [id number] date: 1995 Sex: F Assigned [facility] Current Patient Location: Accession/Order Number: [id number] Exam Date: 06/27/2024 09:02 Report Date: 06/28/2024 08:07 At the request of: DEISY HOWELL Procedure: US pelvis transvaginal EXAM: Pelvic ultrasound HISTORY: . PELVIC PAIN, VAGINAL DISCHARGE . COMPARISON: None. TECHNIQUE: Transvaginal scanning was performed FINDINGS: Scanning of the pelvis demonstrates uterus to measure 9.5 x 4.2x 6.5 cm. Endometrial complex measures 5 mm. [...] 08:07 Dictated By: Nandini Duarte M.D. Signed By:06/28/2409 DD/ 6 TD/TT: Automotive Manager: us Deisy Dante DO [facility] Final Result documented in this encounter Visit Diagnoses Not on filedocumented in this encounter Care Teams Railroad Inspector Relationship Specialty Start Date End Date Shashi Hargrove MD [address] [place] [address] PCP - General Family Medicine 05/11/23 documented as of this encounter
--- OUTSIDE RECORDS SUMMARY | 2025-04-25 15:56 | XMS_ITS | Encounter Summary ---
Author Organization [facility] Address [address] [place] [address] Care Team Providers Care Contact Lens Assistant Name Role Phone Shashi Hargrove MD Primary Care Provider [phone] Encounter Details Date Type Department Care Team (Late Contact Info) Description 04/12/2025 Bamboo flowsheet [facility] OB [address] [facility] [place] [address] Graham Howell DO [address] [facility] [address] Neisha Dill, [facility]11 Social History Tobacco Use Types Packs/Day Years [...] PM EDT Routine [facility] OB [address] [facility] [place] [address] Kelle Mosley PA [address] [facility] [address] [place], [place] [id number] 04/27/2025 3:00 PM EDT Ancillary Procedure [facility] OB [address] [facility] [address] documented as of this encounter Visit Diagnoses Not on filedocumented in this encounter Care Teams Contact Lens Assistant Relationship Specialty Start Date End Date Shashi Hargrove MD [address] [facility] [place] [phone] PCP - General Family Medicine 05/11/23 documented as of this encounter
--- OUTSIDE RECORDS SUMMARY | 2025-04-25 15:56 | XMS_ITS | Patient Health Record ---
Author Organization [facility] Address [address] [place] [address] Care Team Providers Care Border Patrol Officer Name Role Phone Dr. Collins Mei Primary Care Provider [phone] Caryn Roth Unavailable [phone] Reason For Referral No Information Encounters Encounter Location Date Provider Diagnosis [facility] [address] [place] [address] 09/23/2024 Collins Mei Encounter for dental examination and cleaning with abnormal findings Z01.21 ; Other dental procedure status Z98.818 ; Disturbances in tooth eruption K00.6 ; Acute gingivitis, plaque induced K05.00 and Dental caries on pit and fissure surface penetrating into dentin K02.52 [facility] [address] [place] [address] 12/02/2024 Collins Mei Dental caries on pit and fissure surface penetrating into dentin K02.52 Assessments Encounter Date Diagnosis (ICD Code) Assessment Notes Treatment Notes Treatment Clinical Notes Section Notes 09/23/2024 Encounter for dental examination and cleaning with abnormal findings (ICD-10 - Z01.21) 12/02/2024 Dental caries on pit and fissure surface penetrating into dentin (ICD-10 - K02.52) 09/23/2024 Other dental procedure status (ICD-10 - Z98.818) 09/23/2024 Disturbances in tooth eruption (ICD-10 - K00.6) 09/23/2024 Acute gingivitis, plaque induced (ICD-10 - K05.00) 09/23/2024 Dental caries on pit and fissure surface penetrating into dentin (ICD-10 - K02.52) Plan Of Treatment No Information Insurance Providers Payer Name Payer Address Payer Phone Subscriber Number Group Number Insured Name Patient Relationship to Insured Coverage Start Date Coverage End Date [facility] [employer] [address] [address] [place] [address] [id number] ROSALIE FREEMAN Self - patient is the insured 3 [employer] [facility] [address] [place] [address] [id number] ROSALIE FREEMAN Self - patient is the insured 3
--- OUTSIDE RECORDS SUMMARY | 2025-04-25 15:56 | XMS_ITS | Encounter Summary ---
Author Organization [facility] Address [address] [place] [address] Care Team Providers Care Government Guard Name Role Phone Shashi Hargrove MD Primary Care Provider [phone] Encounter Details Date Type Department Care Team ([facility] Contact Info) Description 01/10/2025 Orders Only [facility] BCP OB [address] [facility] [place] [address] Aleida Colon LPN [address] [place] [id number] Social History Tobacco Use Types Packs/Day Years [...] Upcoming Encounters Date Type Department Care Team ([facility] Contact Info) Description 04/27/2025 1:00 PM EDT Routine [facility] BCP OB [address] [facility] [place] [address] Kelle Mosley PA [address] [facility] [address] [place], [facility]11 04/27/2025 3:00 PM EDT Ancillary Procedure [facility] BCP OB [address] [place] [address] [place] [phone] documented as of this encounter Procedures Procedure Name Priority Date/Time Associated Diagnosis Comments PAP SMEAR Routine 12/27/2024 12:00 AM EST documented in this encounter Results * Pap Smear (12/27/2024 12:00 AM EST) Swab Cervical swab / Unknown [facility] ORDERABLES Final Re sult EXTERNAL LAB documented in this encounter Visit Diagnoses Not on filedocumented in this encounter Care Teams Government Guard Relationship Specialty Start Date End Date Shashi Hargrove MD [address] [facility] [place] [address] PCP - General Family Medicine 05/11/23 documented as of this encounter
--- OUTSIDE RECORDS SUMMARY | 2025-04-25 15:56 | XMS_ITS | Encounter Summary ---
Author Organization [facility] Address [address] [place] [address] Care Team Providers Care Supervisory Historian Name Role Phone Shashi Hargrove MD Primary Care Provider [phone] Encounter Details Date Type Department Care Team ([facility] Contact Info) Description 06/29/2024 Abstract [facility] BCP OB [address] [place] [address] Graham Howell DO [address] [place] [address] Dr Neisha Dill, [facility]11 Social History Tobacco Use Types [...] Upcoming Encounters Date Type Department Care Team ([facility] Contact Info) Description 04/27/2025 1:00 PM EDT Routine [facility] BCP OB [address] [place] [address] Kelle Mosley PA [address] [place], [facility]11 04/27/2025 3:00 PM EDT Ancillary Procedure [facility] BCP OB [address] [place], [place] [address] [address] documented as of this encounter Visit Diagnoses Not on filedocumented in this encounter Care Teams Supervisory Historian Relationship Specialty Start Date End Date Shashi Hargrove MD [address] [place] [address] PCP - General Family Medicine 05/11/23 documented as of this encounter
--- OUTSIDE RECORDS SUMMARY | 2025-04-25 15:56 | XMS_ITS | Encounter Summary ---
Author Organization [facility] Address [address] [place] [address] Care Team Providers Care Photo Producer Name Role Phone Shashi Hargrove MD Primary Care Provider [phone] Encounter Details Date Type Department Care Team ([facility] Contact Info) Description 12/23/2024 Abstract [facility] BCP OB [address] [facility] [place] [address] Graham Howell DO [address] [facility] [address] Neisha Dill, [facility]11 Social History Tobacco Use Types Packs/Day [...] PM EDT Routine [facility] BCP OB [address] [facility] [place] [address] Kelle Mosley PA [address] [facility] [address] [place], [place] [phone] 04/27/2025 3:00 PM EDT Ancillary Procedure [facility] BCP OB [address] [facility] [address] documented as of this encounter Visit Diagnoses Not on filedocumented in this encounter Care Teams Photo Producer Relationship Specialty Start Date End Date Shsahi Hargrove MD [address] [facility] [place] [phone] PCP - General Family Medicine 05/11/23 documented as of this encounter
--- OUTSIDE RECORDS SUMMARY | 2025-04-25 15:56 | XMS_ITS | Encounter Summary ---
Author Organization [facility] Address [address] [place] [address] Care Team Providers Care Dynamometer Tester Name Role Phone Shashi Hargrove MD Primary Care Provider [phone] Encounter Details Date Type Department Care Team ([facility] Contact Info) Description 11/03/2024 Abstract [facility] BCP OB [address] [facility] [place] [address] Graham Howell DO [address] [facility] [address] Neisha Dill, [facility]11 Social History Tobacco Use Types Packs/Day Years [...] PM EDT Routine [facility] [address] [facility] [place] [address] Kelle Mosley PA [address] [facility] [address] [place], [place] [phone] 04/27/2025 3:00 PM EDT Ancillary Procedure [facility] BCP OB [address] [facility] [place] [address] documented as of this encounter Visit Diagnoses Not on filedocumented in this encounter Care Teams Dynamometer Tester Relationship Specialty Start Date End Date Shashi Hargrove MD [address] [facility] [place] [address] PCP - General Family Medicine 05/11/23 documented as of this encounter
--- OUTSIDE RECORDS SUMMARY | 2025-04-25 15:57 | XMS_ITS | Encounter Summary ---
Author Organization [facility] Address [address] [place] [address] Care Team Providers Care Sign Out Clerk Name Role Phone Shashi Hargrove MD Primary Care Provider [phone] Encounter Details Date Type Department Care Team ([facility] st Contact Info) Description 09/10/2014 FollowUp Telephone Encounter [facility] Labor and Delivery [address] [place], [place] [phone] Delaney Mccray RN Social History Tobacco Use Types Packs/Day [...] on file documented as of this encounter Progress Notes * Delaney Mccray RN - 09/10/2014 2:08 PM EDT Alexia Tea 19 y.o. Call made 09/10/2014 1405 To [phone] (home) [] No answer [] Message left [x] Spoke with Patient Obstetric History T1 TAB0 SAB0 E0 M0 L0 # Outcome Date GA Lbr Noman/2nd Weight Sex Delivery Anes PTL Lv 1 Term 39w6d 7 lb 2.5 oz (3.246 kg) M Vag-Spont Obstetric Comments 39 5/7 weeks ambulatory to labor and delivery for cervidil. No voiced complaints. No distress. How are you feeding your baby now? bottle formula type: Isomil How often is your baby eating? every 3 to 4 hours; not spitting up so much like he was in hospital; he was switched to soy right before discharge How many wet diapers a day? 6-8 How many dirty diapers a day? 1-2 How is your baby sleeping? Well; gets up between 3 and 4 am for a bottle, change diaper, eats then goes back to sleep How is your baby's circumcision healing? still looks like it did in hospital, red, a little swollen . Pt denies bleeding, baby urinating 6-8 times a day, pt denies increase in swelling How is the umbilical cord area healing? Well; its dry, dark and small. Looks like it should fall off any day now. Has your baby had an appointment with the rack washer yet? scheduled this week Have you made your baby's two month appointment for vaccines? How are you and your family adjusting to the new baby? very well; he (baby) is pretty content as long as his diaper's changed and his belly is full. How well are you sleeping? well Are your eating and drinking well? Yes Do you have plenty of help at home? Yes; calling my mom whenever I have a question Are you having any breast discomfort or milk supply issues? If , how is your incision healing? NA If vaginal delivery, do you have any stitches on your bottom, and if so how are they healing?) well Have you had a follow-up appointment with your OB provider scheduled? Were you happy with your hospital visit? Yes; We were very happy with Dr. Tsai and Dr. Mcgill. All of the nurses were really great, we were well taken care of while we were there. Arpita and Katina were especially great. [employer] that Katina really went the extra mile to make sure we were comfortable. Was there anything we could have done to improve your stay? No documented in this encounter Plan of Treatment Not on file documented as of this encounter Visit Diagnoses Not on filedocumented in this encounter Care Teams Sign Out Clerk Relationship Specialty Start Date End Date Shashi Hargrove MD [address] [place] [address] PCP - General 04/05/15 documented as of this encounter
--- OUTSIDE RECORDS SUMMARY | 2025-04-25 15:57 | XMS_ITS ---
Author Organization [facility] Source Produ ction (ClinicalSummary Clone) Address Unknown Care Team Providers Care Applications Development Analyst Name Role Phone Unavailable Primary Care Physician Unavailab le Results * [UNITY] ANEUPLOIDY NIPT Performed by: [employer] Component Value Range Date Fraction 3.9% 12/29/2024 04 :31 am [facility] Sex Chromosome Aneuploidy NOT DETECTED 04:31 am [facility] Monosomy X LOW RISK <1 in 10,000 2024 04:31 am [facility] Trisomy 13 LOW RISK <1 in 10,000 2024 04:31 am [facility] Trisomy 18 LOW RISK <1 in 10,000 2024 04:31 am [facility] Trisomy 21 LOW RISK <1 in 10,000 2024 04:31 am [facility] Sex MALE 12/29/2024 04:3 1 am [facility] Gestation MELÉNDEZ 12/29/19 25 04:31 am [facility] For detailed report, see PDF See PDF 12/29/2024 04:31 am [facility] 12/29/2024 04:3 1 am [facility] Social History Observation Value Start Date End Date
--- OUTSIDE RECORDS SUMMARY | 2025-04-25 15:57 | XMS_ITS | Encounter Summary ---
Author Organization [facility] Address [address] [place] [address] Care Team Providers Care Electrocardiogram Technician Name Role Phone Shashi Hargrove MD Primary Care Provider [phone] Encounter Details Date Type Department Care Team (Late st Contact Info) Description 09/09/2014 FollowUp Telephone Encounter [facility] Labor and Delivery [address] [place], [place] [phone] Delaney Mccray RN Social History Tobacco Use [...] Progress Notes * Delaney Mccray RN - 09/09/2014 11:58 AM EDT Alexia Tea 19 y.o. Call made 09/09/2014 11:59 AM To [phone] (home) [x] No answer; unable to leave message on phone. [] Message left Obstetric History T1 TAB0 SAB0 E0 M0 L0 # Outcome Date GA Lbr Noman/2nd Weight Sex Delivery Anes PTL Lv 1 Term 39w6d 7 lb 2.5 oz (3.246 kg) M Vag-Spont Obstetric Comments 39 5/7 weeks ambulatory to labor and delivery for cervidil. No voiced complaints. No distress. documented in this encounter Plan of Treatment Not on file documented as of this encounter Visit Diagnoses Not on filedocumented in this encounter Care Teams Electrocardiogram Technician Relationship Specialty Start Date End Date Shashi Hargrove MD [address] [place] [address] PCP - General 04/05/15 documented as of this encounter
[2025-04-25 16:19] VITALS: BP 121/77; PULSE 77
[2025-04-25 16:20] VITALS: TEMP 36.8
[2025-04-25 16:29] LABS: Bilirubin Urine NEGATIVE (NEGATIVE); Blood Urine NEGATIVE (NEGATIVE); Clarity Urine CLEAR (CLEAR); Color Urine LT. YELLOW (YELLOW); Glucose Urine UA NEGATIVE (NEGATIVE); Ketones Urine NEGATIVE (NEGATIVE); Leukocyte Esterase Urine MODERATE (NEGATIVE); Nitrite Urine NEGATIVE (NEGATIVE); Protein Urine 30 mg/dL (NEG/TRACE); Urine Microscopic Indicated YES; pH Urine 7.5 (5.0-9.0)
[2025-04-25 16:33] LABS: Amnisure NEGATIVE (NEGATIVE); Internal Control Within Normal Limits
[2025-04-25 16:42] LABS: Bacteria Urine MODERATE #/HPF (NONE SEEN); Cast Seen? NONE SEEN #/LPF (NONE SEEN); Crystals Seen? None Seen #/HPF (None Seen); Mucus Urine NONE SEEN (NONE SEEN); Squamous Epithelial Cell Urine MODERATE #/LPF (NONE/RARE); Urine Culture Indicated YES-LC
== END 2025-04-25 18:19 | disposition home or self-care (01) ==
PROVIDERS: Admitting Provider Obstetrics & Gynecology; PCP Family Medicine; Visit Provider Obstetrics & Gynecology
DX: O26.899 Other specified pregnancy related conditions, unspecified trimester (principal); R10.30 Lower abdominal pain, unspecified; Z3A.00 Weeks of gestation of pregnancy not specified
CPT/HCPCS: 81001; 84112; 87086; G0378; G0379

== ENCOUNTER 2025-05-08 16:52 | Outpatient (OUT) | payer OTHER, SELFPAY ==
--- OUTSIDE RECORDS SUMMARY | 2015-04-06 01:53 | XMS_ITS | Encounter Summary ---
Author Organization Alex [facility]ultana[facility] Address [address] [employer] [place] [address] Care Team Providers Care Automated Weaver Name Role Phone Shashi Hargrove MD Primary Care Provider [phone] Encounter Details Date Type Department Care Team (Late st Contact Info) Description 04/06/2015 1:53 AM EDT Hospital Encounter MTH PRE ADMIT [address] [phone] Abdi Mcgill MD [address] [facility] [address] [place] [address] Social History Tobacco Use Types Packs/Day Years Used Date Smoking Tobacco: Never Smokeless Tobacco: Never Alcohol Use Standard Drinks/Week Comments No 0 (1 standard drink = 0.6 oz pur e alcohol) Comments No Sex and Gender Information Value Date Recorded Sex Assigned at Not on file Legal Sex Female 1:25 AM EST Gender Identity Not on file Sexual Orientation Not on file documented as of this encounter Last Filed Vital Signs Vital Sign Reading Time Taken Comments Blood Pressure 108/65 04/06/2015 10:45 AM EDT Pulse 69 04/06/2015 10:45 AM EDT Temperature 36.4 C (97.6 F) 04/06/2015 10:45 AM EDT Respiratory Rate 16 04/06/2015 10:45 AM EDT Oxygen Saturation 99% 04/06/2015 10:45 AM EDT Inhaled Oxygen Concentration - - Weight 123.4 kg (272 lb) 04/06/2015 10:45 AM EDT Height 180.3 cm (5' 11 ) 04/06/2015 10:45 AM EDT Body Mass Index 37.94 04/06/2015 10:45 AM EDT documented in this encounter Plan of Treatment Not on file documented as of this encounter Procedures Procedure Name Priority Date/Time Associated Diagnosis Comments CBC WITH AUTO DIFFERENTIAL Routine 04/06/2015 11:11 AM EDT URINALYSIS WITH MICROSCOPIC [employer] Label Print 04/06/2015 11:11 AM EDT TYPE AND SCREEN Routine 04/06/2015 11:11 AM EDT HCG, SERUM, QUALITATIVE Routine 04/06/2015 11:11 AM EDT documented in this encounter Results * (ABNORMAL) Urinalysis with microscopic (04/06/2015 11:11 AM EDT) Color, UA YELLOW YEL 04/06/2015 12:25 PM EDT [facility] Turbidity UA CLEAR CLEAR 04/06/2015 12:25 PM EDT [facility] Glucose, Ur NEGATIVE NEG 04/06/2015 12:25 PM EDT [facility] Bilirubin Urine NEGATIVE NEG 5 12:25 PM EDT [facility] Ketones, Urine NEGATIVE NEG 04/06/2015 12:25 PM EDT [facility] Specific [place], UA >1.030(H) 1.010 - 1.020 04/06/2015 12:25 PM EDT [facility] Urine Hgb NEGATIVE NEG 04/06/2015 12:25 PM EDT [facility] pH, UA 6.0 5.0 - 9.0 04/06/2015 12:25 PM EDT [facility] Protein, UA NEGATIVE NEG 04/06/2015 12:25 PM EDT [facility] Urobilinogen, Urine Normal NORM 04/06/2015 12:25 PM EDT [facility] Nitrite, Urine NEGATIVE NEG 04/06/2015 12:25 PM EDT [facility] Leukocyte Esterase, Urine TRACE(A) NEG 04/06/2015 12:25 PM EDT [facility] Urinalysis Comments NOT REPORTED [facility] - 04/06/2015 12:25 PM EDT [facility] WBC, UA 0 TO 2 0 - 5 /HPF 04/06/2015 12:25 PM EDT [facility] RBC, UA None 0 - 2 /HPF 04/06/2015 12:25 PM EDT [facility] Casts UA NOT REPORTED 0 - 2 /LPF [facility] Crystals, UA NOT REPORTED NONE /HPF [facility] Epithelial Cells, UA 0 TO 2 0 - 25 /HPF 04/06/2015 12:25 PM EDT [facility] Renal Epithelial, UA NOT REPORTED 0 /HPF [facility] Bacteria, UA NOT REPORTED NONE [facility] Mucus, UA NOT REPORTED NONE [facility] Trichomonas NOT REPORTED NONE [facility] Amorphous, UA 1+(A) NONE 04/06/2015 12:25 PM EDT [facility] Comment: Performed at [address] [place] [address] ([phone] Other Observations UA NOT REPORTED NREQ [facility] Yeast, UA NOT REPORTED NONE [facility] URINE SPECIMEN / Unknown 04/06/2015 11:11 AM EDT 04/06/2015 11:12 AM EDT us Abdi Mcgill MD URINE ORDERABLES Final Result [facility] [address] [place] [address], [facility] [phone] [facility] * TYPE AND SCREEN (04/06/2015 11:11 AM EDT) Expiration Date 04/13/2015 5 11:47 AM EDT [facility] Arm Band Number [id number] 11:47 AM EDT [facility] ABO/Rh B POSITIVE 04/06/2015 11:47 AM EDT [facility] Antibody Screen NEGATIVE 5 12:19 PM EDT [facility] Comment: Performed at [address] [place] [address] ([phone] Blood (substance) BLOOD SPECIMEN / Unknown 04/06/2015 11:11 AM EDT 04/06/2015 11:12 AM EDT Abdi Mcgill MD BLOOD BANK TEST ORDERABLES Fi nal Result Performing Organization Address [facility]/ZIP Co de Phone Number [facility] [address] [place] [address] [facility] * HCG Qualitative, Serum (04/06/2015 11:11 AM EDT) Preg, Serum NEGATIVE NEG 04/06/2015 12:33 PM EDT [facility] Comment: Performed at [address] [place], [place] [id number] ([phone] Blood (substance) BLOOD SPECIMEN / Unknown 04/06/2015 11:11 AM EDT 04/06/2015 11:12 AM EDT Abdi Mcgill MD CHEMISTRY ORDERABLES Final Re sult Performing Organization Address [facility] Co de Phone Number [facility] [address] [place] [address] [facility] * (ABNORMAL) CBC auto differential (04/06/2015 11:11 AM EDT) [facility] WBC 6.9 4.5 - 13.5 k/uL 04/06/2015 11:31 AM EDT [facility] RBC 4.36 4.0 - 5.2 m/uL 04/06/2015 11:31 AM EDT [facility] Hemoglobin 12.6 12.0 - 16.0 g/dL 04/06/2015 11:31 AM EDT [facility] Hematocrit 37.5 36 - 46 % 04/06/2015 11:31 AM EDT [facility] MCV 86.2 80 - 100 fL 04/06/2015 11:31 AM EDT [facility] MCH 28.9 26 - 34 pg 04/06/2015 11:31 AM EDT [facility] MCHC 33.6 31 - 37 g/dL 04/06/2015 11:31 AM EDT [facility] RDW 13.8 12.1 - 15.2 % 04/06/2015 11:31 AM EDT [facility] Platelets 277 140 - 450 k/uL 04/06/2015 11:31 AM EDT [facility] MPV NOT REPORTED 6.0 - 12.0 fL [facility] Differential Type NOT REPORTED [facility] Seg Neutrophils 66(H) 34 - 64 % 5 11:31 AM EDT [facility] Lymphocytes 21(L) 25 - 45 % 04/06/2015 11:31 AM EDT [facility] Monocytes % 10 0 - 12 % 04/06/2015 11:31 AM EDT [facility] Eosinophils % 3 0 - 8 % 04/06/2015 11:31 AM EDT [facility] Basophils % 0 0 - 2 % 04/06/2015 11:31 AM EDT [facility] Neutrophils Absolute 4.50 1.8 - 7.7 k/uL 04/06/2015 11:31 AM EDT [facility] Lymphocytes Absolute 1.40 1.0 - 4.8 k/uL 04/06/2015 11:31 AM EDT [facility] Monocytes Absolute 0.70 0.0 - 1.0 k/uL 04/06/2015 11:31 AM EDT [facility] Eosinophils Absolute 0.20 0.0 - 0.4 k/uL 04/06/2015 11:31 AM EDT [facility] Basophils Absolute 0.00 0.0 - 0.2 k/uL 04/06/2015 11:31 AM EDT [facility] Comment: Performed at [address] [place] [address] ([phone] WBC Morphology NOT REPORTED [facility] RBC Morphology NOT REPORTED [facility] Platelet Estimate NOT REPORTED [facility] BLOOD SPECIMEN / Unknown 04/06/2015 11:11 AM EDT 04/06/2015 11:12 AM EDT us Abdi Mcgill MD HEMATOLOGY ORDERABLES Final R esult [facility] [address] [place] [address], [facility] [phone] [facility] documented in this encounter Visit Diagnoses Not on filedocumented in this encounter Care Teams Automated Weaver Relationship Specialty Start Date End Date Shashi Hargrove MD [address] [place] [address] PCP - General 04/05/15 documented as of this encounter
--- OUTSIDE RECORDS SUMMARY | 2024-12-08 04:09 | XMS_ITS ---
Author Organization [facility] in [place] Address [address] [place] [address] Care Team Providers Care Geriatrics Physician Name Role Phone Ethan Hargrove Primary Care Provider [phone] REASON FOR VISIT pink eye Medications Medication SIG (Take, Route, Frequency, Duration) Notes Start Date End Date Status Dxiuzogf-Xurcwvzxf-Omkmdzo h 3.5-26127-5.1 1 drop into affected eye Ophthalmic Four times a day for 7 days 12/08/2024 Active Encounters Encounter Location Date Provider Diagnosis [address] [place] [address] 12/08/2024 Ethan Hargrove Plan Of Treatment Medication Medication Name Sig Start Date Stop Date Notes Gknhvwmn-Bxiuqkqpi-Qsmgqsyj 3.5-76653-8.1 1 drop into affected eye Ophthalmic Four times a day for 7 days 12/08/2024 Progress Notes * Jocelyn FREEMAN VDOB:1995 (29 yo F)Acc No.[id number]:12/08/2024 Patient: Magaly JAIMES Jocelyn Stafford :1995 A ge:29 Y S ex:Female Address:[address] [place] [address], [place], [address] * Refills Start Gynbaboy-Cahcuanyb-Djjhxply Suspension, 3.5-23498-4.1, Ophthalmic, 1.4 ML, 1 drop into affected eye, Four times a day, 7 days, Refills=1 * true * Date: Generated for Printi ng/Faradhag/Rayitting on: 0 05/08/2025 04:55 PM EDT
--- OUTSIDE RECORDS SUMMARY | 2024-12-12 07:55 | XMS_ITS ---
Author Organization The [facility] in [place] Address [address] [place] [address] Care Team Providers Care Senior Materials Analyst Name Role Phone Ethan Hargrove Primary Care Provider REASON FOR VISIT sinus infection- not better Medications Medication SIG (Take, Route, Fr equency, Duration) Notes Start Date End Date Status Cephalexin 500 MG 2 tabs Orally bid for 10 days Active Encounters Encounter Location Date Provider Diagnosis [facility] [address] [place] [address] 12/12/2024 Ethan Hargrove Acute non-recurrent sinusitis, unspecified [...] * Jocelyn FREEMAN VDOB:1995 (29 yo F)Acc No.[id number]:12/12/2024 Patient: Magaly JAIMES Jocelyn Rivera :1995 A ge:29 Y S ex:Female Address:[address] [address], [address] * Refills Refill Cephalexin Tablet, 500 MG, Orally, 40 Tablet, 2 tabs, bid, 10 days * true * Date: Generated for Printi ng/Faxing/eTransmitting on: 0 05/08/2025 04:55 PM EDT
--- OUTSIDE RECORDS SUMMARY | 2025-01-13 10:40 | XMS_ITS ---
Author Organization [facility] Address [address] [place] [address] Care Team Providers Care Asbestos Cement Sheet Supervisor Name Role Phone Dr. Collins Mei Primary Care Provider REASON FOR VISIT FILLING Encounters Encounter Location Date Provider Diagnosis [facility] [address] [place] [address] 01/13/2025 Collins Mei Plan Of Treatment No Information Progress Notes * ASHLEE FREEMANNDOB:1995 ( 29 yo F)Acc No.[id number]:01/13/2025 Patient: ROSALIE SEGURA Provider: Laura Mei DDS :1995 A ge:29 Y S ex:Female Date:01/13/2025 Address:[address] [place], [place] [id number] Subjective: * Chief Complaints: * 1 . FILLING. * Medical History: Objective: * Vitals: Assessment: Plan: * Treatment: * Images: * Electronic signature of Dr. Collins Mei , DMD on 05/08/2025 at 04:55 PM EDT Sign off status: Pending * Provider: Laura Mei DDS Date: 01/13/2025 Generated for Jennifer ng/Faradhag/eTransmitting on: 0 05/08/2025 04:55 PM EDT
--- OUTSIDE RECORDS SUMMARY | 2025-03-10 10:15 | XMS_ITS ---
Author Organization [facility] Address [address] [place] [address] Care Team Providers Care Inbound Sales Advisor Name Role Phone Dr. Collins Mei Primary Care Provider [phone] Caryn Roth [phone] REASON FOR VISIT PROPHY Encounters Encounter Location Date Provider Diagnosis [facility] [address] [place] [address] 03/10/2025 Caryn Joyner Plan Of Treatment No Information Progress Notes * FREEMANASHLEE CHINCHILLANDOB:1995 ( 29 yo F)Acc No.[id number]:03/10/2025 Patient: ROSALIE SEGURA Provider: Melody Joyner :1995 A ge:29 Y S ex:Female Date:03/10/2025 Address:[address] [place], [place] [id number] Pcp:Dr. Collins Mei Subjective: * Chief Complaints: * 1 . PROPHY. * Medical History: Objective: * Vitals: Assessment: Plan: * Treatment: * Images: * Electronic signature of Farhan Joyner on 05/08/2025 at 04:55 PM EDT Sign off status: Pending * Provider: Melody Joyner Date: 03/10/2025 Generated for Hard[facility] ng/Faxing/eTransmitting on: 0 05/08/2025 04:55 PM EDT
--- OUTSIDE RECORDS SUMMARY | 2025-04-25 12:34 | XMS_ITS ---
Author Organization [facility] [place] Address [address] [place] [address] Care Team Providers Care Auto Fleet Manager Name Role Phone Ethan Hargrove Primary Care Provider REASON FOR VISIT UA Encounters Encounter Location Date Provider Diagnosis [facility] [address] [place] [address] 04/25/2025 Ethan Hargrove Plan Of Treatment No Information Progress Notes * Jocelyn FREEMAN VDOB:1995 (29 yo F)Acc No.[id number]:04/25/2025 Patient: Magaly TURNERJocelyn CHINCHILLA V :1995 A ge:29 Y S ex:Female Address:[address] [place] [address], [address] * true * Date: Generated for Jennifer wren/Ted/eTransmitting on: 0 05/08/2025 04:54 PM EDT
--- OUTSIDE RECORDS SUMMARY | 2025-04-27 13:00 | XMS_ITS | Encounter Summary ---
Author Organization [facility] Address [address] [facility] [place] [address] Care Team Providers Care Inside Tester Name Role Phone Shashi Hargrove MD Primary Care Provider [phone] Reason for Visit * Reason Comments Routine Visit Encounter Details Date Type Department Care Team ([facility] Contact Info) Description 04/27/2025 1:00 PM EDT Routine [facility] BCP OB [address] [place] [address] Kelle Mosley PA [address] [facility] [facility] [address] [place], [facility]11 Third trimester ([facility]); 34 weeks gestation of ([facility]) Social History Tobacco Use Types Packs/Day Years [...] Care Team (Late st Contact Info) Description 2025 2:30 PM EDT Routine [facility] BCP OB [address] [place] [address] Graham Howell, [address] [facility] [facility] [address] [place], [place] [id number] documented as of this encounter Procedures Procedure Name Priority Date/Time Associated Diagnosis Comments POCT URINALYSIS DIPSTICK Routine 04/27/2025 1:20 PM EDT Third trimester ([facility]) documented in this encounter Results * (ABNORMAL) [...] - Positive Urine 04/27/2025 1:20 PM EDT Kelle BAE POINT OF CARE TEST ENTER/EDIT OR DERABLES Final Result documented in this encounter Visit Diagnoses Diagnosis Third trimester ([facility]) state, incidental 34 weeks gestation of ([facility]) documented in this encounter Care Teams Inside Tester Relationship Specialty Start Date End Date Shashi Hargrove MD [address] [place] [facility] [place] [phone] PCP - General Family Medicine 05/11/23 documented as of this encounter
--- OUTSIDE RECORDS SUMMARY | 2025-04-27 15:00 | XMS_ITS | Encounter Summary ---
Author Organization [facility] Address [address] [place] [address] Care Team Providers Care Survey Cad Technician Name Role Phone Shashi Hargrove MD Primary Care Provider [phone] Encounter Details Date Type Department Care Team (Latest Contact Info) Description 04/27/2025 3:00 PM EDT Ancillary Procedure [facility]CP OB [address] [place] [place] [address] size inconsistent with dates ([facility]) Social History Tobacco Use Types Packs/Day Years [...] PM EDT Routine [facility] BCP OB [address] [place] [address] Graham Howell DO [address] [place], [place] [id number] documented as of this encounter Procedures Procedure Name Priority Date/Time Associated Diagnosis Comments US OB FOLLOW UP TRANSABDOMINAL APPROACH Routine 04/27/2025 2:58 PM EDT size inconsistent with dates ([facility]) documented in this encounter Results * US OB follow up transabdominal approach (04/27/2025 2:58 PM EDT) Anatomical Region Laterality Modality Body Ultrasound 04/28/2025 8:28 AM EDT Narrative 04/28/2025 8:28 AM EDT EXAM: US OB FOLLOW UP TRANSABDOMINAL APPROACH HISTORY: Inconsistent size. COMPARISON: Ob ultrasound 01/23/2025. TECHNIQUE: Two-dimensional transabdominal grayscale ultrasound imaging of the pelvis was performed. FINDINGS: Gestation: Single Presentation: Cephalic Cardiac Activity: 159 beats per minute Amniotic Fluid Index: 25.3 cm MEASUREMENTS: BPD: 9.2 cm EGA: 37 weeks 2 days HC: 32.5 cm EGA: 36 weeks 5 days AC: 32.1 cm EGA: 36 weeks 0 days FL: 6.7 cm EGA: 34 weeks 4 days HC/AC Ratio: 1.01 The gestational age by today's ultrasound is 36 weeks 1 days (+/- 18 days gestation). Estimated Weight: 2786 grams, +/- 418 grams ( 6 lb 2 oz). Weight Percentile for gestational age: 84 % IMPRESSION: 1. Single, live intrauterine gestation 34 weeks, 3 days by LMP. Today's ultrasound measurements correlate with a gestational age of 36 weeks 1 days. Estimated weight is 2786 grams, +/- 418 grams ( 6 lb 2 oz) which correlates to 84 %. ABEL is 05/24/2025. 2. Polyhydramnios. Interpreted by: Electronically signed by TATO AMAYA II, MD, PHD at 28-Apr-2025 08:26:54 AM [facility] Procedure Note Tato Amaya MD - 04/28/2025 EXAM: US OB FOLLOW UP TRANSABDOMINAL APPROACH HISTORY: Inconsistent size. COMPARISON: Ob ultrasound 01/23/2025. TECHNIQUE: Two-dimensional transabdominal grayscale ultrasound imaging ofthe pelvis was performed. FINDINGS: Gestation: Single Presentation: Cephalic Cardiac Activity: 159 beats per minute Amniotic Fluid Index: 25.3 cm MEASUREMENTS: BPD: 9.2 cm EGA: 37 weeks 2 days HC: 32.5 cm EGA: 36 weeks 5 days AC: 32.1 cm EGA: 36 weeks 0 days FL: 6.7 cm EGA: 34 weeks 4 days HC/AC Ratio: 1.01 The gestational age by today's ultrasound is 36 weeks 1 days (+/- 18 daysgestation). Estimated Weight: 2786 grams, +/- 418 grams ( 6 lb 2 oz). Weight Percentile for gestational age: 84 % IMPRESSION: 1. Single, live intrauterine gestation 34 weeks, 3 days by LMP. Today'sultrasound measurements correlate with a gestational age of 36 weeks 1days. Estimated weight is 2786 grams, +/- 418 grams ( 6 lb 2 oz)which correlates to 84 %. ABEL is 05/24/2025. 2. Polyhydramnios. Interpreted by: Electronically signed by TATO AMAYA II, MD, PHD [id number] 08:26:54 AM [facility] us Graham Dante DO IMG OB US PROCEDURES Final Resul t documented in this encounter Visit Diagnoses Diagnosis size inconsistent with dates ([facility]) documented in this encounter Care Teams Survey Cad Technician Relationship Specialty Start Date End Date Shashi Hargrove MD [address] [place] [address] PCP - General Family Medicine 05/11/23 documented as of this encounter
--- OUTSIDE RECORDS SUMMARY | 2025-05-08 16:55 | XMS_ITS | Encounter Summary ---
Author Organization [facility] Address [address] [facility] [place] [address] Care Team Providers Care Market Development Executive Name Role Phone Shashi Hargrove MD Primary Care Provider [phone] Encounter Details Date Type Department Care Team ([facility] Contact Info) Description 12/23/2024 Abstract [facility] OB [address] [place] [address] Graham Howell [facility] [address], [facility]11 Social History Tobacco Use Types Packs/Day Years [...] Upcoming Encounters Date Type Department Care Team ([facility] Contact Info) Description 2025 2:30 PM EDT Routine [facility] BCP OB [address] [place] [address] Graham Howell, DO [facility] [address], [facility]11 documented as of this encounter Visit Diagnoses Not on filedocumented in this encounter Care Teams Market Development Executive Relationship Specialty Start Date End Date Shashi Hargrove MD [address] [place] [phone] PCP - General Family Medicine 05/11/23 documented as of this encounter
--- OUTSIDE RECORDS SUMMARY | 2025-05-08 16:55 | XMS_ITS | Encounter Summary ---
Author Organization [facility] Address [address] [facility] [place] [address] Care Team Providers Care Underwriter Solicitation Director Name Role Phone Shashi Hargrove MD Primary Care Provider [phone] Encounter Details Date Type Department Care Team ([facility] Contact Info) Description 06/02/2024 Abstract [facility] OB [address] [place] [phone] Graham Howell DO [address] [place], [place] [address] Social History Tobacco Use Types Packs/Day Years [...] Upcoming Encounters Date Type Department Care Team ([facility] Contact Info) Description 2025 2:30 PM EDT Routine [facility] OB [address] [place] [address] Graham Howell DO [facility] [address] [place], [facility]11 documented as of this encounter Visit Diagnoses Not on filedocumented in this encounter Care Teams Underwriter Solicitation Director Relationship Specialty Start Date End Date Shashi Hargrove MD [address] [place] [address] PCP - General Family Medicine 05/11/23 documented as of this encounter
--- OUTSIDE RECORDS SUMMARY | 2025-05-08 16:55 | XMS_ITS | Encounter Summary ---
Author Organization [facility] Address [address] [place] [address] Care Team Providers Care Reservoir Engineering Manager Name Role Phone Shashi Hargrove MD Primary Care Provider [phone] Encounter Details Date Type Department Care Team ([facility] Contact Info) Description 04/25/2025 Telephone [facility] OB [address] [place] [address] Graham Howell, DO [address] [facility] [address] [place], [facility]11 Social History Tobacco Use Types Packs/Day [...] Routine [facility] BCP OB [address] [place] [address] Graham Howell, DO [address] [place] [address] documented as of this encounter Visit Diagnoses Not on filedocumented in this encounter Care Teams Reservoir Engineering Manager Relationship Specialty Start Date End Date Shashi Hargrove MD [address] [facility] [place] [address] PCP - General Family Medicine 05/11/23 documented as of this encounter
--- OUTSIDE RECORDS SUMMARY | 2025-05-08 16:55 | XMS_ITS | Encounter Summary ---
Author Organization [facility] Address [address] [facility] [place] [address] Care Team Providers Care Supervisor Wet End Name Role Phone Shashi Hargrove MD Primary Care Provider [phone] Encounter Details Date Type Department Care Team ([facility] Contact Info) Description 05/03/2023 Abstract NOM[facility] [address] [place] [phone] Kelle Mosley PA [address] [place] [address] Dr [place], [place] [address] Social History Tobacco Use Types Packs/Day Years [...] Upcoming Encounters Date Type Department Care Team ([facility] Contact Info) Description 2025 2:30 PM EDT Routine NOM[facility] [address] [place] [address] Graham Howell DO [address] [place] [address] [place] [address] documented as of this encounter Visit Diagnoses Not on filedocumented in this encounter Care Teams Supervisor Wet End Relationship Specialty Start Date End Date Shashi Hargrove MD [address] [place] [address] PCP - General Family Medicine 05/11/23 documented as of this encounter
--- OUTSIDE RECORDS SUMMARY | 2025-05-08 16:55 | XMS_ITS | Encounter Summary ---
Author Organization [facility] Address [address] [facility] [place] [address] Care Team Providers Care Medication Assistant Name Role Phone Shashi Hargrove MD Primary Care Provider [phone] Encounter Details Date Type Department Care Team ([facility] Contact Info) Description 06/04/2023 Abstract [facility] OB [address] [place] [address] Graham Howell DO [address] [place], [place] [address] Social History Tobacco Use Types Packs/Day Years [...] Upcoming Encounters Date Type Department Care Team ([facility] Contact Info) Description 2025 2:30 PM EDT Routine [facility] OB [address] [place] [address] Graham Howell DO [facility] [address] [place], [id number] documented as of this encounter Visit Diagnoses Not on filedocumented in this encounter Care Teams Medication Assistant Relationship Specialty Start Date End Date Shashi Hargrove MD [address] [place] [address] PCP - General Family Medicine 05/11/23 documented as of this encounter
--- OUTSIDE RECORDS SUMMARY | 2025-05-08 16:55 | XMS_ITS | Encounter Summary ---
Author Organization [facility] Address [address] [facility] [place] [place] [address] Care Team Providers Care Internal Audit Director Name Role Phone Shashi Hargrove MD Primary Care Provider [phone] Encounter Details Date Type Department Care Team ([facility] Contact Info) Description 12/23/2024 Abstract [facility] OB [address] [place] [address] Graham Howell [facility] [place], [facility]11 Social History Tobacco Use Types Packs/Day [...] Upcoming Encounters Date Type Department Care Team ([facility] Contact Info) Description 2025 2:30 PM EDT Routine [facility] BCP OB [address] [place] [address] Graham Howell, DO [facility] [address], [facility]11 documented as of this encounter Visit Diagnoses Not on filedocumented in this encounter Care Teams Internal Audit Director Relationship Specialty Start Date End Date Shashi Hargrove MD [address] [place] [phone] PCP - General Family Medicine 05/11/23 documented as of this encounter
--- OUTSIDE RECORDS SUMMARY | 2025-05-08 16:55 | XMS_ITS | Encounter Summary ---
Author Organization [facility] Address [address] [facility] [place] [address] Care Team Providers Care Fresh Foods Cake Decorator Name Role Phone Shashi Hargrove MD Primary Care Provider [phone] Encounter Details Date Type Department Care Team ([facility] Contact Info) Description 11/03/2024 Abstract [facility] OB [address] [place] [address] Graham Howell [facility] [place], [facility]11 Social History Tobacco Use Types Packs/Day [...] Care Team ([facility] Contact Info) Description 2025 2:30 PM EDT Routine [facility] BCP OB [address] [place] [address] Graham Howell, DO [facility] [address], [facility]11 documented as of this encounter Visit Diagnoses Not on filedocumented in this encounter Care Teams Fresh Foods Cake Decorator Relationship Specialty Start Date End Date Shashi Hargrove MD [address] [place] [phone] PCP - General Family Medicine 05/11/23 documented as of this encounter
--- OUTSIDE RECORDS SUMMARY | 2025-05-08 16:55 | XMS_ITS | Encounter Summary ---
Author Organization [facility] Address [address] [place] [address] Care Team Providers Care Internet Database Specialist Name Role Phone Shashi Hargrove MD Primary Care Provider [phone] Encounter Details Date Type Department Care Team ([facility] Contact Info) Description 06/28/2024 Clinisync Result Encounter NOMS External Department Unsolicited Deisy Howell, DO [address] [place] [address] Social History Tobacco Use Types Packs/Day Years [...] Upcoming Encounters Date Type Department Care Team ([facility] Contact Info) Description 2025 2:30 PM EDT Routine [facility] B[facility] OB [address] [facility] [address] Deisy Howell DO [address] [place], [place] [id number] documented as of this encounter Procedures Procedure Name Priority Date/Time Associated Diagnosis Comments US PELVIS TRANSVAGINAL 06/28/2024 8:07 AM EDT documented in this encounter Results * US PELVIS TRANSVAGINAL (06/28/2024 8:07 AM EDT) Anatomical Region Laterality Modality Other 06/28/2024 8:07 AM EDT Narrative 06/28/2024 8:09 AM EDT [address] [address] Ultrasound Report Signed Patient: ALEXIA FREEMAN V MR#: [id number] : 1995 Acct:[id number] Age/Sex: 29 / F ADM Date: 06/27/24 Loc: [facility] Attending Dr: Deisy Howell D.O. Ordering Physician: Deiys Howell D.O. Date of Service: 06/27/24 Procedure(s): US pelvis transvaginal Accession Number(s): [id number] cc: Deisy Howell D.O.; Shashi Hargrove M.D. [address] [id number] Patient Name: ALEXIA FREEMAN MRN: [id number] date: 1995 Sex: F Assigned Patient Location: [facility] Current Patient Location: Accession/Order Number: [id number] Exam Date: 06/27/2024 09:02 Report Date: 06/28/2024 [...] M.D. Signed By: 06/28/24808 DD/ 6 TD/TT: Contract Administration Coordinator: Procedure Note Radiology, Radiologist, - 06/28/2024 [place] [address] Ultrasound Report Signed Patient: ALEXIA FREEMAN R#: [id number] : 1995Acct:[id number] Age/Sex: 29 / FADM Date: 06/27/24 Loc: [facility] Attending Dr: Deisy Howell D.O. Ordering Physician: Deisy Howell D.O. Date of Service: 06/27/24 Procedure(s): US pelvis transvaginal Accession Number(s): [id number] cc: Deisy Howell D.O.; Shashi Hargrove M.D. [place] [id number] Patient Name: ALEXIA FREEMAN MRN: [id number] date: 1995 Sex: F Assigned Patient Location: [facility] Current Patient Location: Accession/Order Number: [id number] Exam Date: 06/27/2024 09:02 Report Date: 06/28/2024 [...] 08:07 Dictated By: Nandini Duarte M.D. Signed By:06/28/24808 DD/ 6 TD/TT: Contract Administration Coordinator: us Deisy Howell DO [facility] Final Result documented in this encounter Visit Diagnoses Not on filedocumented in this encounter Care Teams Internet Database Specialist Relationship Specialty Start Date End Date Shashi Hargrove MD [address] [place] [address] PCP - General Family Medicine 05/11/23 documented as of this encounter
--- OUTSIDE RECORDS SUMMARY | 2025-05-08 16:55 | XMS_ITS | Encounter Summary ---
Author Organization [facility] Address [address] [facility] [place] [address] Care Team Providers Care Mixing Pan Tender Name Role Phone Shashi Hargrove MD Primary Care Provider [phone] Encounter Details Date Type Department Care Team ([facility] Contact Info) Description 06/29/2024 Abstract N[facility]S [facility] OB [address] [place] [phone] Graham Howell DO [address] [place], [place] [address] Social History Tobacco Use Types Packs/Day Years [...] Upcoming Encounters Date Type Department Care Team ([facility] Contact Info) Description 2025 2:30 PM EDT Routine [facility] OB [address] [place] [address] Graham Howell DO [facility] [address], [facility]11 documented as of this encounter Visit Diagnoses Not on filedocumented in this encounter Care Teams Mixing Pan Tender Relationship Specialty Start Date End Date Shashi Hargrove MD [address] [place] [address] PCP - General Family Medicine 05/11/23 documented as of this encounter
--- OUTSIDE RECORDS SUMMARY | 2025-05-08 16:55 | XMS_ITS | Clinical Summary ---
Author Organization [facility] Address [address] [place] [address] Care Team Providers Care Director Of Enrollment Name Role Phone Shashi Hargrove MD Primary Care Provider [phone] Allergies No known active allergies Medications sertraline [...] Comment SPECIMEN RECEIVED 12/21/2018 7:08 AM EST [facility] CERVICAL SWAB / Unknown 12/20/2018 6:10 PM EST 12/20/2018 6:10 PM EST Abdi Mcgill MD PATHOLOGY/CYTOLOGY ORDERABLES Final Result Performing Organization Address City/[facility]/ZIP Co de Phone Number [facility] [address] [place] [phone], [facility] [phone] [address], [facility] [phone] * HIV Rapid 1&2 (02/21/2014 2:51 PM EDT) [facility] Rapid HIV 1&2 NONREACTIVE NR 02/22/2014 2:29 PM EDT [facility] Comment: Interpretation: The presence of antibody [...] characteristics of this test were determined by [facility]. It has not been cleared or approved by the U.S. Food and Drug Administration. The FDA has determined that such clearance is not necessary. Performed at [address] [place] [address] ([phone] 02/21/2014 2:51 PM EDT 02/21/2014 2:51 PM EDT Rachel Mejía PROJECT CONTROLS SCHEDULER - CNM IMMUNOLOGY ORDERABLES Final Result Performing Organization Address City/[facility]/ZIP Co de Phone Number [facility] [address] [place] [phone], [facility] [phone] [facility] from Last 3 Months or Most Recently Relevant to Health Maintenance Insurance [employer] Advance Directives * Full Code (Latest Code Status on File) Date Activated Date Inactivated Comments 04/10/2015 8:54 AM 04/10/2015 5:11 PM * Full Code Date Activated Date Inactivated Comments 09/06/2014 12:25 AM 09/07/2014 4:46 PM * Full Code Date Activated Date Inactivated Comments 09/04/2014 3:03 PM 09/06/2014 12:25 AM Care Teams Director Of Enrollment Relationship Specialty Start Date End Date Shashi Hargrove MD [address] [place] [address] PCP - General 04/05/15
--- OUTSIDE RECORDS SUMMARY | 2025-05-08 16:55 | XMS_ITS | Clinical Summary ---
Author Organization [facility] Address [address] [place] [address] Care Team Providers Care Solar Resource Assessor Name Role Phone Shashi Hargrove MD Primary Care Provider [phone] Allergies Active Allergy Reactions Criticality Noted Date Comments Wound Dressings 12/25/2023 Other Reaction(s): hives Medications sertraline (Zoloft) 100 MG tablet Take 50 mg by mouth Daily Active magnesium oxide (Mag-Ox) 400 MG tabletIndication s: headache in third trimester ([facility]) Take 1 tablet (400 mg) by mouth Daily 30 tablet 11 5 Active valACYclovir (Valtrex) 500 MG tabletIndication s:Herpes zoster with complication Take 1 tablet (500 mg) by mouth Daily 30 tablet 11 5 04/28/20 25 magnesium oxide (Mag-Ox) 400 MG tablet Take 1 tablet by mouth Daily 5 04/10/20 25 Discontinue d(Reorder) cephalexin (Keflex) 500 MG capsuleIndicatio ns:Third trimester ([facility]) Take 1 capsule (500 mg) by mouth in the morning and 1 capsule (500 mg) in the evening and 1 capsule (500 mg) before bedtime. Do all this for 7 days. 21 capsule 5 05/04/20 25 Active Problems Problem Noted Date Diagnosed Date Encounter for weight management 06/27/2024 Abnormal ultrasound of biliary tract 05/27/2023 Acne vulgaris 05/27/2023 Anxiety 05/27/2023 Chronic cholecystitis with calculus 05/27/2023 Gastroesophageal reflux disease 05/27/2023 Insomnia 05/27/2023 Irritable bowel syndrome 05/27/2023 Mood disorder 05/27/2023 Right upper quadrant abdominal pain 05/27/2023 Scoliosis 05/27/2023 LPRD (laryngopharyngeal reflux disease) 05/07/20 Pharyngeal dysphagia 05/07/2023 Dermoid cyst of left ovary 04/10/2015 Vaginal delivery ([facility]) 09/06/2014 Estimated Date of Delivery Comme nts Yes 06/05/2025 Based on last me nstrual period of 08/29/2024 Encounters Date Type Department Care Team Description 05/05/2025 Abstract [facility] [address] [place] [address] Kelle Craig LPN 05/05/2025 Patient Outreach N[facility] [address] [place] [address] Kelle Craig LPN 05/04/2025 Telephone N[facility] OB [address] [facility] [address] Katie Fitzgerald MA 04/27/2025 3:00 PM EDT Ancillary Procedure [facility] OB [address] [place] [address] size inconsistent with dates ([facility]) 04/27/2025 1:00 PM EDT Routine [facility] OB [address] [place] [address] Kelle Mosley PA Third trimester ([facility]); 34 weeks gestation of ([facility]) 04/27/2025 Bamboo flowsheet N[facility] OB [address] [place] [address] Kelle Mosley PA 04/25/2025 Clinisync Result Encounter NOMS External Department Unsolicited Graham Howell, 04/25/2025 Telephone [facility] [address] [place] [address] Graham Howell DO 04/12/2025 2:30 PM EDT Routine [facility] OB [address] [place] [phone] Graham Howell, Third trimester ([facility]); 32 weeks gestation of ([facility]); size inconsistent with dates ([facility]) 04/12/2025 Bamboo flowsheet NOM[facility] [address] [place] [address] Graham Howell, 04/10/[address] [address] [place] [address] Aleida Colon LPN headache in third trimester ([facility]) 03/29/2025 3:10 PM EDT Routine NOMS [address] [place] [address] Kelle Mosley PA Herpes zoster with complication (Primary Dx); 30 weeks gestation of ([facility]); Third trimester ([facility]) 03/29/2025 Bamboo flowsheet NOM[facility] [address] [place] [address] Kelle Mosley PA 03/15/2025 2:50 PM EDT Routine NOM[facility] [address] [place] [address] Graham Howell, Third trimester ([facility]); 28 weeks gestation of ([facility]); H/O herpes zoster virus 03/15/2025 Bamboo flowsheet NOM[facility] [address] [place] [address] Graham Howell, 03/06/2025 Clinisync Result Encounter NOMS External Department Unsolicited Graham Howell, 02/06/2025 3:10 PM EDT Routine NOM[facility] [address] [place] [address] Graham Howell, Diabetes mellitus screening; 23 weeks gestation of ([facility]); Second trimester ([facility]) 02/06/2025 Bamboo flowsheet [facility] OB [address] [place] [place] [address] Graham Howell DO from Last 3 Months Family History Medical [...] year, Caffeine intake: 2-3 cups per day PHQ-2 Answer Date Recorded Patient Health Questionnaire-2 Score 0 05/05/2025 Estimated Date of Delivery Comme nts Yes [...] oz) 04/27/2025 1:06 PM E DT Height 177.8 cm (5' 10 ) 07/26/2024 8:36 AM EDT Body Mass Index 46.85 07/26/2024 8:36 AM EDT Plan of Treatment Upcoming Encounters Date Type Department Care Team (Late st Contact Info) Description 2025 2:30 PM EDT Routine N[facility] OB [facility] [place] [address] Graham Howell DO [address] [place], [place] [address] [place], [place] [phone] Health Maintenance Due Date Last Done Comments Influenza Vaccine (Season Ended) 2025 10/28/20 22, 03/21/2014 Pap Smear 12/27/2027 12/27/2024, 06/23, 01/02/2021, Additional history exists Cervical Cancer Screening 07/09/2028 HPV/Cotest 07/09/2028 07/09/2023 Procedures Procedure Name Priority Date/Time Associated Diagnosis Comments US OB FOLLOW UP TRANSABDOMINAL APPROACH Routine 04/27/2025 2:58 PM EDT size inconsistent with dates ([facility]) POCT URINALYSIS DIPSTICK Routine 04/27/2025 1:20 PM EDT Third trimester ([facility]) TBH URINE MICROSCOPIC ONLY Routine 04/25/2025 4:15 PM EDT AMNISURE Routine 04/25/2025 4:15 PM EDT TBH UA (CLEAN/CATCH) HOSPICE MUSIC THERAPY/MICRO IF IND. Routine 04/25/2025 4:15 PM EDT POCT URINALYSIS DIPSTICK Routine 04/12/2025 3:28 PM EDT Third trimester ([facility]) POCT URINALYSIS DIPSTICK Routine 03/29/2025 3:51 PM EDT 30 weeks gestation of ([facility]) POCT URINALYSIS DIPSTICK Routine 03/15/2025 3:29 PM EDT Third trimester ([facility]) GLUCOSE 1 HOUR Routine 03/06/2025 9:29 AM EDT ALL CBC WITH AUTO DIFF Routine 9:29 AM EDT POCT URINALYSIS DIPSTICK Routine 02/06/2025 3:48 PM EDT 23 weeks gestation of ([facility]) Second trimester ([facility]) PAP SMEAR Routine 12/27/2024 12:00 AM EST THINPREP PAP AND HPV MRNA E6/E7 W/RFL HPV 16,18/45 Routine 07/09/2023 3:38 PM EDT Well woman exam with routine gynecological exam from Last 3 Months or Most Recently Relevant to Health Maintenance Results * US OB follow up transabdominal [...] II, MD, PHD at 28-Apr-2025 08:26:54 AM [facility] Procedure Note Tato Amaya MD - [...] signed by TATO AMAYA II, MD, PHD [id number] 08:26:54 AM [facility] us Graham Howell DO IMG OB US PROCEDURES Final Resul t * (ABNORMAL) POCT urinalysis dipstick manually resulted (04/27/2025 1:20 PM EDT) Only the most recent of5 resultswithin the time period is included. Color, UA Yellow Clarity, UA Clear Glucose, [...] CARE TEST ENTER/EDIT OR DERABLES Final Result * AMNISURE (04/25/2025 4:15 PM EDT) Pathologist [facility] AMNISURE NEGATIVE NEGATIVE TBH 04/25/2025 4:15 PM EDT 04/25/2025 4:20 PM EDT Narrative [facility] - 04/25/2025 4:33 PM EDT us Graham Dante DO LAB BLOOD ORDERABLES Final Resul t Performing Organization Address [facility] Co de Phone Number [facility] * (ABNORMAL) TBH URINE MICROSCOPIC ONLY (04/25/2025 4:15 PM EDT) [facility] WBC 10-20(A) NONE SEEN #/HPF TBH TBH RBC 2-5(A) 0 - 2 #/HPF TBH BACTERIA URINE MODERATE(A ) NONE SEEN #/HPF TBH MUCUS URINE NONE SEEN NONE SEEN TBH SQUAMOUS EPITHELIAL CELL URINE MODERATE(A ) NONE/RARE #/LPF TBH CRYSTALS SEEN? None Seen None Seen #/HPF TBH CAST SEEN? NONE SEEN NONE SEEN #/LPF TBH URINE CULTURE INDICATED YES-LC TBH 04/25/2025 4:15 PM EDT 04/25/2025 4:26 PM EDT Narrative [facility] - 04/25/2025 4:42 PM EDT us Graham Dante DO [facility] Final Result Performing Organization Address [facility] Co de Phone Number [facility] * (ABNORMAL) TBH UA (CLEAN/CATCH) HOSPICE MUSIC THERAPY/MICRO IF IND. (04/25/2025 4:15 PM EDT) Pathologist [facility] COLOR URINE LT. YELLOW YELLOW TBH CLARITY URINE CLEAR CLEAR TBH SPECIFIC GRAVITY URINE 1.020 1.005 - 1.025 TBH PH URINE 7.5 5.0 - 9.0 TBH PROTEIN URINE 30(A) NEG/TRACE mg/dL TBH GLUCOSE URINE UA NEGATIVE NEGATIVE mg/dL TBH BILIRUBIN URINE NEGATIVE NEGATIVE TBH KETONES URINE NEGATIVE NEGATIVE mg/dL TBH BLOOD URINE NEGATIVE NEGATIVE TBH NITRITE URINE NEGATIVE NEGATIVE TBH UROBILINOGEN URINE 1.0 0.2 - 1.0 EU/dL TBH LEUKOCYTE ESTERASE URINE MODERATE(A) NEGATIVE TBH URINE MICROSCOPIC INDICATED YES TBH 04/25/2025 4:15 PM EDT 04/25/2025 4:26 PM EDT Narrative [facility] - 04/25/2025 4:42 PM EDT us Graham Dante DO [facility] Final Result Performing Organization Address City/[facility]/ZIP Co de Phone Number [facility] * GLUCOSE 1 HOUR (03/06/2025 9:29 AM EDT) GLUCOSE 1 HOUR 116 <130 mg/dL TBH 03/06/2025 9:29 AM EDT 03/06/2025 9:32 AM EDT Narrative [facility] - 03/06/2025 10:05 AM EDT Graham Dante DO LAB BLOOD ORDERABLES Final Resul t Performing Organization Address City/[facility] Co de Phone Number [facility] * (ABNORMAL) ALL CBC WITH AUTO DIFF (03/06/2025 9:29 AM EDT) TB WBC 10.4 4.0 - 11.0 10 3/uL TBH TBH RBC 3.96(L) 4.20 - 5.40 10 6/uL TBH TBH HGB 12.1 12.0 - 16.0 g/dL TB TB HCT 35.7(L) 36.0 - 48.0 % TBH [...] - 03/06/2025 9:44 AM EDT us Graham Hernandezo DO [facility] Final Result Performing Organization Address [facility]/ZIP Co de Phone Number [facility] * Pap Smear (12/27/2024 12:00 AM EST) Swab Cervical swab / Unknown us Kelle BAE LAB CYTOLOGY ORDERABLES Final Re sult Performing Organization Address [facility]/ZIP Co de Phone Number EXTERNAL LAB * THINPREP PAP AND HPV MRNA E6/E7 W/RFL HPV 16,18/45 (07/09/2023 3:38 PM EDT) us Kelle [facility] LAB BLOOD ORDERABLES Final Resul t Performing Organization Address City/[facility] Co de Phone Number EXTERNAL LAB from Last 3 Months or Most Recently Relevant to Health Maintenance Insurance [facility] MEDICAID [facility] MEDICAID Care Teams Solar Resource Assessor Relationship Specialty Start Date End Date Shashi Hargrove MD [address] [place] [address] PCP - General Family Medicine 05/11/23
--- OUTSIDE RECORDS SUMMARY | 2025-05-08 16:55 | XMS_ITS | Encounter Summary ---
Author Organization [facility] Address [address] [facility] [place] [address] Care Team Providers Care Performing Arts Technicians Name Role Phone Shashi Hargrove MD Primary Care Provider [phone] Encounter Details Date Type Department Care Team ([facility] Contact Info) Description 05/31/2024 Abstract N[facility] OB [address] [place] [phone] Graham Howell DO [address] [place], [place] [address] Social History Tobacco Use Types Packs/Day Years [...] Description 2025 2:30 PM EDT Routine [facility] OB [address] [place] [address] Graham Howell DO [facility] [address] [place], [facility] documented as of this encounter Visit Diagnoses Not on filedocumented in this encounter Care Teams Performing Arts Technicians Relationship Specialty Start Date End Date Shashi Hargrove MD [address] [place] [address] PCP - General Family Medicine 05/11/23 documented as of this encounter
--- OUTSIDE RECORDS SUMMARY | 2025-05-08 16:55 | XMS_ITS | Encounter Summary ---
Author Organization [facility] Address [address] [facility] [place] [address] Care Team Providers Care Customer Care Team Coach Name Role Phone Shashi Hargrove MD Primary Care Provider [phone] Encounter Details Date Type Department Care Team ([facility] Contact Info) Description 01/10/2025 Orders Only [facility] BCP OB [address] [facility] [address] Aleida Colon LPN [address] [place] [id number] Social History Tobacco Use Types Packs/Day Years [...] Department Care Team (Late Contact Info) Description 2025 2:30 PM EDT Routine [facility] OB [address] [facility] [address] Graham Howell DO [address] [facility] [address] [place], [facility]11 documented as of this encounter Procedures Procedure Name Priority Date/Time Associated Diagnosis Comments PAP SMEAR Routine 12/27/2024 12:00 AM EST documented in this encounter Results * Pap Smear (12/27/2024 12:00 AM EST) Swab Cervical swab / Unknown us Kelle [facility] LAB CYTOLOGY ORDERABLES Final Re sult EXTERNAL LAB documented in this encounter Visit Diagnoses Not on filedocumented in this encounter Care Teams Customer Care Team Coach Relationship Specialty Start Date End Date Shashi Hargrove MD [address] [place] [phone] PCP - General Family Medicine 05/11/23 documented as of this encounter
--- OUTSIDE RECORDS SUMMARY | 2025-05-08 16:55 | XMS_ITS | Encounter Summary ---
Author Organization [facility] Address [address] [facility] [place] [address] Care Team Providers Care Lube Attendant Name Role Phone Shashi Hargrove MD Primary Care Provider [phone] Encounter Details Date Type Department Care Team ([facility] Contact Info) Description 05/31/2024 Abstract N[facility] OB [address] [place] [phone] Graham Howell DO [address] [place], [place] [address] Social History Tobacco Use Types Packs/Day Years [...] Upcoming Encounters Date Type Department Care Team ([facility] Contact Info) Description 2025 2:30 PM EDT Routine N[facility] OB [address] [place] [address] Graham Howell DO [facility] [address] [place], [facility]11 documented as of this encounter Visit Diagnoses Not on filedocumented in this encounter Care Teams Lube Attendant Relationship Specialty Start Date End Date Shashi Hargrove MD [address] [place] [address] PCP - General Family Medicine 05/11/23 documented as of this encounter
--- OUTSIDE RECORDS SUMMARY | 2025-05-08 16:55 | XMS_ITS | Encounter Summary ---
Author Organization [facility] Address [address] [facility] [place] [address] Care Team Providers Care Auto Rebuilder Name Role Phone Shashi Hargrove MD Primary Care Provider [phone] Encounter Details Date Type Department Care Team ([facility] Contact Info) Description 10/14/2024 Abstract N[facility] OB [address] [place] [phone] Graham Howell DO [address] [place], [place] [address] Social History Tobacco Use Types Packs/Day Years [...] Upcoming Encounters Date Type Department Care Team ([facility] Contact Info) Description 2025 2:30 PM EDT Routine N[facility] OB [address] [place] [address] Graham Howell DO [facility] [address] [place], [email or web address] documented as of this encounter Visit Diagnoses Not on filedocumented in this encounter Care Teams Auto Rebuilder Relationship Specialty Start Date End Date Shashi Hargrove MD [address] [place] [address] PCP - General Family Medicine 05/11/23 documented as of this encounter
--- OUTSIDE RECORDS SUMMARY | 2025-05-08 16:55 | XMS_ITS | Encounter Summary ---
Author Organization [facility] Address [address] [x+1][place] [address] Care Team Providers Care Boiler Tester Name Role Phone Shashi Hargrove MD Primary Care Provider [phone] Encounter Details Date Type Department Care Team (Late st Contact Info) Description 04/11/2015 Post-op Telephone [facility] General Surgery [address] [place], [place] [phone] Leila Wolff RN Social History Tobacco Use [...] on filedocumented in this encounter Care Teams Boiler Tester Relationship Specialty Start Date End Date Shashi Hargrove MD [address] [place] [address] PCP - General 04/05/15 documented as of this encounter
--- OUTSIDE RECORDS SUMMARY | 2025-05-08 16:56 | XMS_ITS ---
Author Organization [facility] Address [address] [place] [address] Care Team Providers Care Hydrochloric Manufacturing Supervisor Name Role Phone Shashi Hargrove MD Primary Care Provider [phone] [facility] ([facility]) Status:Enrolled (Active) Start date:05/02/2025 Enrollment date:05/05/2025 Enrollment reason:Identified by Health Plan Case Team Name Relationship Phone Kelle Craig LPN(Responsible Staff) Licensed [facility] Nurse [phone] Continued Care and Services Coordination
--- OUTSIDE RECORDS SUMMARY | 2025-05-08 16:56 | XMS_ITS | Encounter Summary ---
Author Organization [facility] Address [address] [place] [address] Care Team Providers Care Distribution Center Administrator Name Role Phone Shashi Hargrove MD Primary Care Provider [phone] Encounter Details Date Type Department Care Team ([facility] st Contact Info) Description 09/10/2014 FollowUp Telephone Encounter [facility] Labor and Delivery [address] [place], [place] [id number] Delaney Mccray RN Social History Tobacco Use [...] 19 y.o. Call made 09/10/2014 1405 To [phone] (home) [] No answer [] Message left [...] your baby had an appointment with the radio sales account executive yet? scheduled this week Have you made [...] there. Arpita and Katina were especially great. [place] that Katina really went the extra mile to make sure we were comfortable. Was there anything we could have done to improve your stay? No documented in this encounter Plan of Treatment Not on file documented as of this encounter Visit Diagnoses Not on filedocumented in this encounter Care Teams Distribution Center Administrator Relationship Specialty Start Date End Date Shashi Hargrove MD [address] [place] [address] PCP - General 04/05/15 documented as of this encounter
--- OUTSIDE RECORDS SUMMARY | 2025-05-08 16:56 | XMS_ITS | Encounter Summary ---
Author Organization [facility] Address [address] [place] [address] Care Team Providers Care Healthcare Marketer Name Role Phone Shashi Hargrove MD Primary Care Provider [phone] Encounter Details Date Type Department Care Team ([facility] Contact Info) Description 05/05/2025 Abstract [facility] [address] [place] [place] [address] Kelle Craig LPN [address] [place] [address] Social History Tobacco Use Types Packs/Day Years [...] on file documented as of this encounter Functional Status * Over the past 2 weeks, how often have you been bothered by any of the following problems? Question Answer Date of Assessment Author Little interest or pleasure in doing things Not at all 05/05/2025 3:20 PM EDT Kelle Craig LPN Feeling down, depressed, or hopeless Not at all 05/05/2025 3:20 PM EDT Kelle Craig LPN Patient Health Questionnaire -2 Score 0 05/05/2025 3:20 PM EDT Kelle Craig LPN documented as of this encounter Plan of Treatment Upcoming Encounters Date Type Department Care Team (Late st Contact Info) Description 2025 2:30 PM EDT Routine [facility] [address] [place] [id number] Graham Howell DO [address] [place] [address] documented as of this encounter Visit Diagnoses Not on filedocumented in this encounter Care Teams Healthcare Marketer Relationship Specialty Start Date End Date Shashi Hargrove MD [address] [facility] [place] [phone] PCP - General Family Medicine 05/11/23 documented as of this encounter
--- OUTSIDE RECORDS SUMMARY | 2025-05-08 16:56 | XMS_ITS ---
Author Organization [facility] Source Produ ction (ClinicalSummary Clone) Address Unknown Care Team Providers Care Center Hole Reamer Name Role Phone Unavailable Primary Care Physician Unavailab le Results * [UNITY] ANEUPLOIDY NIPT Performed by: [employer] Component Value Range Date Fraction 3.9% 12/29/2024 04 :31 am [facility] Sex Chromosome Aneuploidy NOT DETECTED 04:31 am [facility] Monosomy X LOW RISK <1 in 10,000 2024 04:31 am [facility] Trisomy 13 LOW RISK <1 in 10,000 2024 04:31 am [facility] Trisomy 18 LOW RISK <1 in 10,000 2024 04:31 am [facility] Trisomy 21 LOW RISK <1 in 10,000 2024 04:31 am [facility] Sex MALE 12/29/2024 04:3 1 am [facility] Gestation MELÉNDEZ 12/29/19 25 04:31 am [facility] For detailed report, see PDF See PDF 12/29/2024 04:31 am [facility] 12/29/2024 04:3 1 am [facility] Social History Observation Value Start Date End Date
--- OUTSIDE RECORDS SUMMARY | 2025-05-08 16:56 | XMS_ITS | Patient Health Record ---
Author Organization [facility] Address [address] [place] [address] Care Team Providers Care Radio Communications Superintendent Name Role Phone Dr. Collins Mei Primary Care Provider [phone] Caryn Roth Unavailable [phone] Reason For Referral No Information Encounters Encounter Location Date Provider Diagnosis [facility] [address] [place] [address] 09/23/2024 Collins eMi Encounter for dental examination and cleaning with abnormal findings Z01.21 ; Other dental procedure status Z98.818 ; Disturbances in tooth eruption K00.6 ; Acute gingivitis, plaque induced K05.00 and Dental caries on pit and fissure surface penetrating into dentin K02.52 [facility] [address] [place] [address] 12/02/2024 Collins Mei Dental caries on pit [...] Coverage Start Date Coverage End Date [facility] [employer] [address] [address] [place] [address] [id number] ROSALIE FREEMAN Self - patient is the insured 3 [employer] [facility] [employer] [address] [place] [address] [id number] ROSALIE FREEMAN Self - patient is the insured 3
--- OUTSIDE RECORDS SUMMARY | 2025-05-08 16:56 | XMS_ITS | Patient Health Record ---
Author Organization The [facility] in [place] Address [address] [place] [address] Care Team Providers Care Bobbin Painter Name Role Phone Beena Ethan Primary Care Provider [phone] MELODIE HARGROVE Unavailable [phone] Allergies No Known Allergies Results Component Value Reference Range Notes CBC AUTO DIFF Reviewed date:06/09/2024 08:39:42 PM Interpretation: Performing Lab: Notes/Report: [facility] , White Blood Count 7.5 4.0-11.0 [...] Performing Lab: see note ML - [facility] LB DHEA, Serum Reviewed date:06/16/2024 08:59:38 PM Interpretation: Performing Lab: Notes/Report: [facility] , DHEA, Serum 140 31-701 ng/dL This test was developed and its performance characteristics determined by [facility]. It has not been cleared or approved by the Food and Drug Administration. Performed at: [address] [id number] Dipping Machine Operator: Emanuel Varela MD, Phone: [phone] Performing Lab: see note - [facility] FREE T3 Reviewed date:07/04/2024 08:33:26 PM Interpretation: Performing Lab: Notes/Report: [facility] , Free T3 2.64 2.18-3.98 pg/mL Performing Lab: see note ML - [facility] LB T4 Reviewed date:07/04/2024 08:33:26 PM Interpretation: Performing Lab: Notes/Report: [facility] , T4 Thyroxine 6.80 4.80-13.90 ug/dL Performing Lab: see note ML - [facility] LB TSH Reviewed date:07/04/2024 08:33:26 PM Interpretation: Performing Lab: Notes/Report: [facility] , Thyroid Stimulating Hormone 4.094 0.358-3.740 uIU/mL Performing Lab: see note ML - [facility] LB FREE T4 Reviewed date:09/16/2024 12:18:08 PM Interpretation: Performing Lab: Notes/Report: [facility] , Free T4 0.81 0.76-1.46 ng/dL Performing Lab: see note ML - [facility] LB TSH Reviewed date:09/16/2024 12:18:08 PM Interpretation: Performing Lab: Notes/Report: [facility] , Thyroid Stimulating Hormone 2.195 0.358-3.740 uIU/mL Performing Lab: see note ML - [facility] LB CBC AUTO DIFF Reviewed date:09/28/2024 09:17:22 PM Interpretation: Performing Lab: Notes/Report: [facility] , White Blood Count 7.3 4.0-11.0 [...] Performing Lab: see note ML - [facility] LB US OB <= 14 weeks fetus Reviewed date:12/04/2024 10:31:56 AM Interpretation: Performing Lab: Notes/Report: Source Facility: [facility]-[address] [place] [address] [address] Ultrasound Report Signed Patient: JOCELYN FREEMAN V MR#: [id number] : 1995 Acct:[id number] Age/Sex: 29 / F ADM Date: 12/02/24 Loc: ER Attending Dr: Ordering Physician: Echo Coyle Date of Service: 12/02/24 Procedure(s): US OB <= 14 weeks fetus Accession Number(s): [id number] cc: Melodie Hargrove M.D.; Echo Coyle [place] [id number] Patient Name: JOCELYN FREEMAN MRN: [id number] date: 1995 Sex: F Assigned Patient Location: ER Current Patient Location: ER Accession/Order Number: [id number] Exam Date: 12/02/2024 12:22 Report Date: 12/02/2024 [...] Dictated By: Mike Mckeon M.D. Signed By: 12/02/24 1318 DD/ 14 TD/TT: Radiotelegraph Operator: [place] [address] Ultrasound Report Signed Patient: JOCELYN FREEMAN V MR#: [id number] : 1995 Acct:[id number] Age/Sex: 29 / F ADM Date: 12/02/24 Loc: ER Attending Dr: Ordering Physician: Echo Coyle Date of Service: 12/02/24 Procedure(s): US OB <= 14 weeks fetus Accession Number(s): [id number] cc: Melodie Hargrove M.D. ; Echo Coyle The [address] [address] Patient Name: JOCELYN FREEMAN MRN: [id number] date: 1995 Sex: F Assigned Patient Location: ER Current Patient Loca tion: ER Accession/Order Numb er: [id number] Exam Date: 12/02/2024 12:22 Report Date: 12/02/2024 [...] Dictated By: Mike Mckeon M.D. Signed By: 12/02/248 DD/ 14 TD/TT: Radiotelegraph Operator: CBC AUTO DIFF Reviewed date:12/24/2024 04:34:56 PM Interpretation: Performing Lab: Notes/Report: [facility] , White Blood Count 9.6 4.0-11.0 [...] 3/uL Performing Lab: see note ML - [facility] LB GLYCOHEMOGLOBIN A1C Reviewed date:12/24/2024 04:34:56 PM Interpretation: Performing Lab: Notes/Report: [facility] , Glycohemoglobin A1C 5.1 4.5-6.2 % ADA RECOMMENDED LIMIT 4.0 - 6.0 ADA THERAPEUTIC TARGET < 7.0 ACTION SUGGESTED > 7.0 Estimated Average Glucose 100 Performing Lab: see note ML - [facility] LB Type and Screen Reviewed date:12/24/2024 04:34:56 PM Interpretation: Performing Lab: Notes/Report: [facility] , Blood Type B Positive Antibody Screen NEGATIVE PROF CHEM 8 (BAS METB) Reviewed date:02/02/2025 07:34:33 PM Interpretation: Performing Lab: Notes/Report: [facility] , Sodium 136 136-145 mmol/L Potassium [...] 8.9 8.5-10.1 mg/dL Performing Lab: see note - [facility] LB Troponin I High Sensitivity Reviewed date:02/02/2025 07:34:33 PM Interpretation: Performing Lab: Notes/Report: [facility] , Troponin I High Sensitivity <4.0 4.0-51.3 pg/mL CUT-OFF POINTS HAVE BEEN ESTABLISHED BASED ON THE FOURTH UNIVERSAL DEFINITION OF MYOCARDIAL INFARCTION. THE UPPER REFERENCE LIMIT (URL) OF TROPONIN, DEFINED THE 99TH PERCENTILE OF cTnI DISTRIBUTION IN A REFERENCE POPULATION, HAS BEEN CONFIRMED THE DECISION THRESHOLD FOR IA DIAGNOSIS. 99TH PERCENTILE = 51.4 PG/ML NOTE: HIGH-SENSITIVITY TROPONIN ASSAY IS NOT INTENDED TO BE USED IN ISOLATION BUT SHOULD BE INTERPRETED IN CONJUNCTION WITH OTHER DIAGNOSTIC AND CLINICAL INFORMATION. Performing Lab: see note - [facility] LB XR chest 1V Reviewed date:02/02/2025 07:34:33 PM Interpretation: Performing Lab: Notes/Report: Source Facility: [place] [address] [place] [address] XRay Report Signed Patient: JOCELYN FREEMAN V MR#: [id number] : 1995 Acct:[id number] Age/Sex: 29 / F ADM Date: 02/02/25 Loc: ER Attending Dr: Ordering Physician: Ashlee Erickson M.D. Date of Service: 02/02/25 Procedure(s): XR chest 1V Accession Number(s): [id number] cc: Melodie Hargrove M.D.; Ashlee Erickson M.D. The [place] [address] Patient Name: JOCELYN FREEMAN MRN: [id number] date: 1995 Sex: F Assigned Patient Location: ER Current Patient Location: ER Accession/Order Number: [id number] Exam Date: 02/02/2025 11:16 Report Date: 02/02/2025 [...] Tangela Ellis M.D.02/02/2025 11:18 AM Dictation Location: [place] [address] Electronically authenticated by: [id number] Y Date: 02/02/2025 11:18 Dictated By: Tangela Ellis M.D. Signed By: 02/02/25 1120 DD/ 1118 TD/TT: Radiotelegraph Operator: [place] [address] XRay Report Signed Patient: JOCELYN FREEMAN V MR#: [id number] : 1995 Acct:[id number] Age/Sex: 29 / F ADM Date: 02/02/25 Loc: ER Attending Dr: Ordering Physician: Ashlee Erickson M.D. Date of Service: 02/02/25 Procedure(s): XR chest 1V Accession Number(s): [id number] cc: Melodie Hargrove M.D. ; Ashlee Erickson M.D. [place] [id number] Patient Name: JOCELYN FREEMAN MRN: [id number] date: 1995 Sex: F Assigned Patient Location: ER Current Patient Loca tion: ER Accession/Order Numb er: [id number] Exam Date: 02/02/2025 11:16 Report Date: 02/02/2025 [...] Tangela Ellis M.D.02/02/2025 11:18 AM Dictation Location: [place] [address] Electronically authenticated by: [id number] Y Date: 02/02/2025 11:18 Dictated By: Tangela Ellis M.D. Signed By: 02/02/25 1120 DD/ 1118 TD/TT: Radiotelegraph Operator: CBC AUTO DIFF Reviewed date:03/06/2025 08:37:44 PM Interpretation: Performing Lab: Notes/Report: [facility] , White Blood Count 10.4 4.0-11.0 [...] 3/uL Performing Lab: see note ML - [facility] LB Glucose 1 Hour Reviewed date:03/06/2025 08:37:44 PM Interpretation: Performing Lab: Notes/Report: [facility] , Glucose 1 Hour 116 <130 mg/dL Performing Lab: see note ML - [facility] LB UA (CLEAN or CATCH) PECAN MALLOW DIPPER or M ICRO IF IND. Reviewed date:04/26/2025 09:45:57 PM Interpretation: Performing Lab: Notes/Report: [facility] , Color Urine LT. YELLOW YELLOW Clarity Urine CLEAR CLEAR Specific [place] Urine 1.020 1.005-1.025 pH Urine 7.5 5.0-9.0 Protein Urine 30 NEG/TRACE mg/dL Glucose Urine UA NEGATIVE NEGATIVE mg/dL Bilirubin Urine NEGATIVE NEGATIVE Ketones Urine NEGATIVE NEGATIVE mg/dL Blood Urine NEGATIVE NEGATIVE Nitrite Urine NEGATIVE NEGATIVE Urobilinogen Urine 1.0 0.2-1.0 EU/dL Leukocyte Esterase Urine MODERATE NEGATIVE Urine Microscopic Indicated YES Performing Lab: see note ML - [facility] LB URINE MICROSCOPIC ONLY Reviewed date:04/26/2025 09:45:57 PM Interpretation: Performing Lab: Notes/Report: [facility] , WBC Urine 10-20 NONE SEEN #/HPF RBC Urine 2-5 0-2 #/HPF Bacteria Urine MODERATE NONE SEEN #/HPF Mucus Urine NONE SEEN NONE SEEN Squamous Epithelial Cell Urine MODERATE NONE/RARE #/LPF Crystals Seen? None Seen None Seen #/HPF Cast Seen? NONE SEEN NONE SEEN #/LPF Urine Culture Indicated YES-LC Performing Lab: see note ML - [facility] LB Amnisure* Reviewed date:04/25/2025 04:36:16 PM Interpretation: Performing Lab: Notes/Report: [facility] , Amnisure NEGATIVE NEGATIVE Performing Lab: see note ML - [facility] LB ECG 12 lead Reviewed date:02/02/2025 10:00:35 PM Interpretation: Performing Lab: Notes/Report: Source Facility: [facility]-[address] [place] [address] [place] [address] Electrocardiograph Report Signed Patient: JOCELYN FREEMAN V MR#: [id number] : 1995 Acct:[id number] Age/Sex: 29 / F ADM Date: 02/02/25 Loc: ER Attending Dr: Ordering Physician: Ashlee Erickson M.D. 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 Measurements Intervals [place] Rate: 90 P: 44 NM: 220 QRS: -8 QRSD: 68 T: 41 QT: 342 QTc: 390 Interpretive Statements 1100 Sinus rhythm 2231 First degree AV block 8102 Low QRS voltage in chest leads 9150 abnormal ECG Compared to ECG 04/17/2023 10:07:42 First degree AV block now present Electronically Signed On 02-02-2025 20:26:48 EDT by CYNDI FINK M.D. Dictated By: CYNDI FINK Signed By: 02/02/252026 DD/ 103 TD/TT: Radiotelegraph Operator: [place] [address] Electrocardiograph Report Signed Patient: JOCELYN FREEMAN V MR#: [id number] : 1995 Acct:[id number] Age/Sex: 29 / F ADM Date: 02/02/25 Loc: ER Attending Dr: Ordering Physician: Ashlee Erickson M.D. 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 Measurements Intervals [place] Rate: 90 P: 44 NM: 220 QRS: -8 QRSD: 68 T: 41 QT: 342 QTc: 390 Interpretive Statements 1100 Sinus rhythm 2231 First degree AV block 8102 Low QRS voltage in chest leads 9150 abnormal ECG Compared to ECG 04/17/2023 10:07:42 First degree AV bloc k now present Electronically Rocío d On 02-02-2025 20:26:48 EDT by CYNDI FINK M.D. Dictated By: CYNDI FINK Signed By: 02/02/252026 DD/ 1039 TD/TT: Radiotelegraph Operator: CBC AUTO DIFF Reviewed date:02/02/2025 07:34:33 PM Interpretation: Performing Lab: Notes/Report: [facility] , White Blood Count 10.7 4.0-11.0 [...] Performing Lab: see note ML - [facility] LB IGP,Aptima HPV,Age Gdln Reviewed date:01/01/2025 11:26:48 [...] High,A-Abnormal,AA-Cri tical Abnormal Performed at: 01 =G [facility] [address] [facility] [place] [address] Haily Cook MD, IGP, Aptima HPV, rfx 16/18,45 Note . TESTS RESULT FLAG UNITS REF RANGE LAB DIAGNOSIS: 02 NEGATIVE FOR INTRAEPITHELIAL LESION OR MALIGNANCY. Specimen adequacy: 02 Satisfactory for evaluation. No endocervical component is identified. Performed by: 02 Janneth Guerrero, Assistant Account Manager ([facility]) . 02 Note: Note 02 The [...] Low,>-Panic High,A-Abnormal,AA-Cri tical Abnormal Performed at: [address] [address] Haily Cook MD, HPV Aptima Negative Negative This nucleic acid amplification test detects fourteen high- risk HPV types (16,18,31,33,35,39,45, 51,52,56,58,59,66,68) without differentiation. Performed at: =[address] [id number] Dipping Machine Operator: Haily Cook MD, Phone: [phone] Performed at: [address] [id number] Dipping Machine Operator: Haily Cook MD, Phone: [phone] Performing Lab: see note - [facility] LB Box Test Reviewed date:12/24/2024 04:34:56 PM Interpretation: Performing Lab: Notes/Report: [facility] , BOX Test Sent Out [facility] Test Reference Lab [facility] Test Date Sent 12/23/24 Performing Lab: see note - [facility] LB Urine Culture, Routine Reviewed date:12/25/2024 04:31:37 PM [...] Culture, Routine Urine Culture, Routine Performed at: [facility] Urine Culture, Routine Urine Culture, Routine [address] [place] [id number] Urine Culture, Routine Urine Culture, Routine Dipping Machine Operator: Chilango Machado PhD, Phone: [phone] Urine Culture, Routine Performing Lab: see note - [facility] LB SEE REPORT - 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 information not found for OBX-specific kitchenwhere maker legend HBsAg Screen Reviewed date:12/24/2024 04:34:56 PM Interpretation: Performing Lab: Notes/Report: [facility] , HBsAg Screen Negative Negative Performed at: [address] [id number] Dipping Machine Operator: Aguilar Machado PhD, Phone: [phone] Performing Lab: see note [facility] LB HCV Antibody RFX to Quant PC R [...] utilized, such as Treponema pallidum (Syphilis) Screening [place] (912057) or Rapid Plasma Reagin (RPR) Test With Reflex to Quantitative RPR and Confirmatory Treponema pallidum Antibodies (007611). Performed at: [facility] [employer] [id number] Dipping Machine Operator: Aguilar Machado PhD, Phone: [phone] Performing Lab: see note [facility] HIV Ab/p24 Ag with Reflex Reviewed date:12/24/2024 04:34:56 PM Interpretation: Performing Lab: Notes/Report: [facility] , HIV Ab/p24 Ag Screen Non Reactive Non Reactive HIV-1/HIV-2 antibodies and HIV-1 p24 antigen were NOT detected. There is no laboratory evidence of HIV infection. HIV Negative Performed at: [facility] [address] [id number] Dipping Machine Operator: Aguilar Machado PhD, Phone: [phone] Performing Lab: see note [facility] RUBELLA AB IGG Reviewed date:12/24/2024 04:34:56 PM Interpretation: Performing Lab: Notes/Report: [facility] , Rubella Antibodies, IgG 0.91 Immune > 0.99 index A second sample should be collected and tested no less than 2-4 weeks. Non-immune <0.90 Equivocal 0.90 - 0.99 Immune >0.99 Performed at: [facility] [employer] [id number] Dipping Machine Operator: Aguilar Machado PhD, Phone: [phone] Performing Lab: see note [facility] LB DRUG SCREEN RAPID (URINE) Reviewed date:12/24/2024 04:34:56 PM Interpretation: Performing Lab: Notes/Report: [facility] , Cannabinoid Screen Urine NEGATIVE NEGATIVE [...] ng/mL Performing Lab: see note ML - [facility] LB TSH Reviewed date:09/28/2024 09:17:22 PM Interpretation: Performing Lab: Notes/Report: [facility] , Thyroid Stimulating Hormone 2.393 0.358-3.740 uIU/mL Performing Lab: see note ML - [facility] LB PREG QUANT HCG Reviewed date:09/28/2024 09:17:22 PM Interpretation: Performing Lab: Notes/Report: [facility] , HCG Quantitative 1721 5-50 0.2-1 WEEK 50-500 1-2 WEEKS 100-5,000 2-3 WEEKS 500-10,000 3-4 WEEKS 1,000-50,000 4-5 WEEKS 10,000-100,000 5-6 WEEKS 15,000-200,000 6-8 WEEKS 10,000-100,000 2-3 MONTHS Performing Lab: see note ML - [facility] LB US pelvis transvaginal Reviewed date:06/28/2024 03:19:56 PM Interpretation: Performing Lab: Notes/Report: Source Facility: [facility]-[address] [place] [address] [place] [address] Ultrasound Report Signed Patient: JOCELYN FREEMAN V MR#: [id number] : 1995 Acct:[id number] Age/Sex: 29 / F ADM Date: 06/27/24 Loc: [facility] Attending Dr: Deisy Howell D.O. Ordering Physician: Deisy Howell D.O. Date of Service: 06/27/24 Procedure(s): US pelvis transvaginal Accession Number(s): [id number] cc: Deisy Howell D.O.; Melodie Hargrove M.D. [place] [id number] Patient Name: JOCELYN FREEMAN MRN: [id number] date: 1995 Sex: F Assigned Patient Location: [facility] Current Patient Location: Accession/Order Number: [id number] Exam Date: 06/27/2024 09:02 Report Date: 06/28/2024 [...] NANDINI DUARTE Date: 06/28/2024 08:07 Dictated By: aNndini Duarte M.D. Signed By: 06/28/24808 DD/ 08 TD/TT: Radiotelegraph Operator: [place] [address] Ultrasound Report Signed Patient: JOCELYN FREEMAN V MR#: [id number] : 1995 Acct:[id number] Age/Sex: 29 / F ADM Date: 06/27/24 Loc: [facility] Attending Dr: Deisy Howell D.O. Ordering Physician: Deisy Howell D.O. Date of Service: 06/27/24 Procedure(s): US pel vis transvaginal Accession Number(s): [id number] cc: Deisy Howell D.O. ; Melodie Hargrove M.D. [address] [address] Patient Name: JOCELYN FREEMAN MRN: [id number] date: 1995 Sex: F Assigned Patient Location: [facility] Current Patient Location: Accession/Order Numb er: [id number] Exam Date: 06/27/2024 09:02 Report Date: 06/28/2024 [...] M.D. Signed By: 06/28/24808 DD/ 6 TD/TT: Radiotelegraph Operator: DHEA-Sulfate Reviewed date:06/12/2024 04:56:24 PM Interpretation: Performing Lab: Notes/Report: [facility] , DHEA-Sulfate 145.0 84.8-378.0 ug/dL Performing Lab: see note LC - [facility] LB FSH Reviewed date:06/12/2024 04:56:24 PM Interpretation: Performing Lab: Notes/Report: [facility] , FSH 5.9 . mIU/mL Adult Female Range Follicular phase 3.5 - 12.5 Ovulation phase 4.7 - 21.5 Luteal phase 1.7 - 7.7 Postmenopausal 25.8 - 134.8 Performed at: [address] [id number] Dipping Machine Operator: Aguilar Machado PhD, Phone: [phone] Performing Lab: see note [facility] LB Luteinizing Hormone(LH) Reviewed date:06/12/2024 04:56:24 PM Interpretation: Performing Lab: Notes/Report: [facility] , Luteinizing Hormone(LH) 9.5 . mIU/mL Adult Female Range Follicular phase 2.4 - 12.6 Ovulation phase 14.0 - 95.6 Luteal phase 1.0 - 11.4 Postmenopausal 7.7 - 58.5 Performing Lab: see note [facility] TSH Reviewed date:06/09/2024 08:39:42 PM Interpretation: Performing Lab: Notes/Report: [facility] , Thyroid Stimulating Hormone 3.872 0.358-3.740 uIU/mL Performing Lab: see note ML - [facility] PREG QUANT HCG Reviewed date:06/09/2024 08:39:42 PM Interpretation: Performing Lab: Notes/Report: [facility] , HCG Quantitative <1 5-50 0.2-1 WEEK 50-500 1-2 WEEKS 100-5,000 2-3 WEEKS 500-10,000 3-4 WEEKS 1,000-50,000 4-5 WEEKS 10,000-100,000 5-6 WEEKS 15,000-200,000 6-8 WEEKS 10,000-100,000 2-3 MONTHS Performing Lab: see note - [facility] GLYCOHEMOGLOBIN A1C Reviewed date:06/09/2024 08:39:42 PM Interpretation: Performing Lab: Notes/Report: [facility] , Glycohemoglobin A1C 5.4 4.5-6.2 % ADA RECOMMENDED LIMIT 4.0 - 6.0 ADA THERAPEUTIC TARGET < 7.0 ACTION SUGGESTED > 7.0 Estimated Average Glucose 108 Performing Lab: see note ML - [facility] FREE T4 Reviewed date:06/09/2024 08:39:42 PM Interpretation: Performing Lab: Notes/Report: [facility] , Free T4 0.84 0.76-1.46 ng/dL Performing Lab: see note ML - [facility] LB Urine Culture, Routine Reviewed date:04/29/2025 05:25:31 PM Interpretation: Performing Lab: Notes/Report: [facility] , Urine Culture, Routine See Below For Report Urine Culture, Routine Urine Culture, Routine Mixed urogenital cuco Urine Culture, Routine Urine Culture, Routine Less than 10,000 colonies/mL Urine Culture, Routine Urine Culture, Routine Performed at: [facility] Urine Culture, Routine Urine Culture, Routine [address] [place], [place] [id number] Urine Culture, Routine Urine Culture, Routine Dipping Machine Operator: Chilango Machado PhD, Phone: [phone] Urine Culture, Routine Performing Lab: see note LC - [facility] LB SEE REPORT - 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 information not found for OBX-specific kitchenwhere maker legend Reason For Referral No Information Medications Medication SIG (Take, Route, Frequency, Duration) Notes Start Date End Date Status Hgtnpuff-Inejgbbpn-Qkmddic h 3.5-50300-0.1 1 drop into affected eye Ophthalmic Four [...] Problem Status W/U Status Risk Notes Problem 34034857 Other hypoglycemia (E16.1) Active confirmed Problem Hypothyroidism (31589477) Hypothyroidism (E03.9) Active confirmed Problem Arthralgia (82245848) Arthralgia (M25.50) Active confirmed Problem Shingles (0944035) Shingles (B02.9) Active confirmed Problem Laboratory test result abnormal (317696738) Abnormal laboratory test (R89.9) Active confirmed Problem Irritable bowel (33052984) Irritable bowel (K58.9) Active confirmed Problem Attention deficit hyperactivity disorder (997000658) ADHD (F90.9) Active confirmed Vital Signs Blood pressure diastolic 70 mm Hg 12/06/2024 Height 71 in 12/06/2024 Blood pressure systolic 122 mm Hg 12/06/2024 Weight 325.2 lbs 12/06/2024 BMI 45.35 kg/m2 12/06/2024 Encounters Encounter Location Date Provider Diagnosis [facility] [address] [facility] [place] [address] 12/06/2024 Ethan Hoy Acute non-recurrent sinusitis, unspecified location J01.90 and Nasal congestion R09.81 [facility] [address] [place] [address] 06/30/2024 Ethan Hoy [facility] [address] [facility] [place] [address] 07/04/2024 Ethan Hoy Hypothyroidism E03.9 [facility] [address] [facility] [place] [address] 09/15/2024 Ethan Hoy Other fatigue R53.83 and Abnormal weight gain R63.5 [facility] [address] [place] [address] 12/08/2024 Ethan Hoy [facility] [address] [place] [address] 12/12/2024 Ethan Hoy Acute non-recurrent sinusitis, unspecified location J01.90 [facility] [address] [facility] [place] [address] 04/25/2025 Ethan Hoy [facility] [address] [place] [address] 05/23/2024 MELODIE HOY [facility] [address] [place] [address] 06/09/2024 Ethan Hoy Hypothyroidism, unspecified E03.9 [facility] [address] [facility] [place] [address] 06/14/2024 Ethan Sawy Assessments Encounter Date Diagnosis (ICD Code) Assessment Notes Treatment Notes Treatment Clinical Notes Section Notes 12/06/2024 Acute non-recurrent sinusitis, unspecified location (ICD-10 - J01.90) Rest and drink more liquids, especially water. You may use a humidifier or vaporizer to help keep the drainage moist. Vhnr-zlt-uhfdsoh Nasal Saline may help the stuffy and runny nose. Use Ibuprofen and or Tylenol as needed for fever, chills, body aches or pain. Children 5 years old should not be given cmka-iky-wmtonln cough and cold medications such as guaifenesin and dextromethorphan. If you're over age 5, you may try qdns-mda-lwbxsnm cold medications such as guaifenesin and dextromethorphan, [...] symptoms do not improve within 3-5 days 06/09/2024 Hypothyroidism, unspecified (ICD-10 - E03.9) 07/04/2024 Hypothyroidism (ICD-10 - E03.9) 09/15/2024 Other fatigue (ICD-10 - R53.83) 09/15/2024 Abnormal weight gain (ICD-10 - R63.5) 12/12/2024 Acute non-recurrent sinusitis, unspecified location (ICD-10 - J01.90) 12/06/2024 Nasal congestion (ICD-10 - R09.81) Plan [...] 2D COMPLETE 11/02/2023 THYROID PANEL (T4/TSH/FREE T3) 4 THYROID PANEL (T4/TSH/FREE T3) 4 US renal bladder 12/29/2023 CT abdomen wo con 11/29/2023 Insurance Providers Payer Name Payer Address Payer Phone Subscriber Number Group Number Insured Name Patient Relationship to Insured Coverage Start Date Coverage End Date [employer] [place] [employer] [address] [place] [phone] [id number] Jocelyn Freeman Self - patient is the insured 8 Medical (General) History Medical History History ICD Code Zoster without complications B02.9 Surgical History Surgery Date(Month/Year) Colonoscopy & EGD 04/27/24 Left Ovary Removal Angioplasty on Toes
--- OUTSIDE RECORDS SUMMARY | 2025-05-08 16:56 | XMS_ITS | Encounter Summary ---
Author Organization [facility] Address [address] [place] [address] Care Team Providers Care School Psychometrist Name Role Phone Shashi Hargrove MD Primary Care Provider [phone] Encounter Details Date Type Department Care Team ([facility] Contact Info) Description 04/25/2025 Clinisync Result Encounter [facility] External Department Unsolicited Graham Howell, DO [facility] [place] [address] Social History Tobacco Use Types Packs/Day Years [...] Routine [facility] BCP OB [address] [place] [phone] Graham Howell, [address] [place] [address] documented as of this encounter Procedures Procedure Name Priority Date/Time Associated Diagnosis Comments AMNISURE Routine 04/25/2025 4:15 PM EDT [facility] URINE MICROSCOPIC ONLY Routine 04/25/2025 4:15 PM EDT [facility]H UA (CLEAN/CATCH) EXPLORATION DRILLER/MICRO IF IND. Routine 04/25/2025 4:15 PM EDT documented in this encounter Results * (ABNORMAL) [facility]H URINE MICROSCOPIC ONLY (04/25/2025 4:15 PM EDT) Pathologist [facility] TB WBC 10-20(A) NONE SEEN #/HPF TBH TBH [...] us Graham Dante DO CLINISYNC Final Result CLINISYNC [facility]H * AMNISURE (04/25/2025 4:15 PM EDT) Pathologist [facility] TB AMNISURE NEGATIVE NEGATIVE TBH 04/25/2025 4:15 PM EDT 04/25/2025 4:20 PM EDT Narrative CLINISYNC - 04/25/2025 4:33 PM EDT us Graham Dante DO LAB BLOOD ORDERABLES Final Resul t CLINISYNC TBH * (ABNORMAL) TBH UA (CLEAN/CATCH) EXPLORATION DRILLER/MICRO IF IND. (04/25/2025 4:15 PM EDT) COLOR URINE LT. YELLOW YELLOW TBH CLARITY [...] us Graham Dante DO CLINISYNC Final Result [facility] documented in this encounter Visit Diagnoses Not on filedocumented in this encounter Care Teams School Psychometrist Relationship Specialty Start Date End Date Shashi Hargrove MD [address] [place] [phone] PCP - General Family Medicine 05/11/23 documented as of this encounter
--- OUTSIDE RECORDS SUMMARY | 2025-05-08 16:56 | XMS_ITS | Encounter Summary ---
Author Organization [facility] Address [address] [place] [address] Care Team Providers Care Web Programmer Name Role Phone Shashi Hargrove MD Primary Care Provider [phone] Encounter Details Date Type Department Care Team ([facility] st Contact Info) Description 09/09/2014 FollowUp Telephone Encounter [facility] Labor and Delivery [address] [place], [place] [phone] Delaney Mccray RN Social History Tobacco Use [...] y.o. Call made 09/09/2014 11:59 AM To [phone] (home) [x] No answer; unable to leave [...] on filedocumented in this encounter Care Teams Web Programmer Relationship Specialty Start Date End Date Shashi Hargrove MD [address] [place] [address] PCP - General 04/05/15 documented as of this encounter
--- OUTSIDE RECORDS SUMMARY | 2025-05-08 16:56 | XMS_ITS | Encounter Summary ---
Author Organization [facility] Address [address] [place] [address] Care Team Providers Care Plastics Worker Name Role Phone Shashi Hargrove MD Primary Care Provider [phone] Encounter Details Date Type Department Care Team ([facility] Contact Info) Description 05/05/2025 Patient Outreach [facility] [address] [place] [phone] Kelle Craig LPN [address] [place] [address] Social History Tobacco Use Types Packs/Day Years [...] Craig LPN documented as of this encounter Progress Notes * Kelle Craig LPN - 05/05/2025 3:18 PM EDT Initial Outreach. Call to pt. Pt reports she feels baby moving frequently. Appetite and sleep are adequate. Bowels are regular. Pt denies depression and difficulty coping at this time. Pt denies any questions, concerns or needs today. Pt agreed to Outreach. Meds reconciled Next OB OV 2025. documented in this encounter Plan of Treatment Upcoming Encounters Date Type Department Care Team (Late st Contact Info) Description 2025 2:30 PM EDT Routine [facility] BCP OB [address] [facility] [place] [address] Graham Howell, DO [address] [place] [address] documented as of this encounter Visit Diagnoses Not on filedocumented in this encounter Care Teams Plastics Worker Relationship Specialty Start Date End Date Shashi Hargrove MD [address] [facility] [place] [address] PCP - General Family Medicine 05/11/23 documented as of this encounter
--- OUTSIDE RECORDS SUMMARY | 2025-05-08 16:56 | XMS_ITS | Encounter Summary ---
Author Organization [facility] Address [address] [place] [address] Care Team Providers Care Second Shift Supervisor Name Role Phone Shashi Hargrove MD Primary Care Provider [phone] Encounter Details Date Type Department Care Team (Late Contact Info) Description 05/04/2025 Telephone [facility] BCP OB [address] [facility] [place] [phone] Katie Fitzgerald MA Social History Tobacco Use Types Packs/Day Years [...] encounter Miscellaneous Notes * Telephone Encounter - Katie Fitzgerald MA - 05/04/2025 12:16 PM EDT Results and recommendations discussed for most recent ultrasound. Orders faxed to [facility] pt to call and schedule. documented in this encounter Plan of Treatment Upcoming Encounters Date Type Department Care Team (Late Contact Info) Description 2025 2:30 PM EDT Routine [facility] BCP OB [address] [facility] [place] [phone] Graham Howell, DO [address] [facility] [address] [place], [place] [phone] Scheduled Orders Name Type Priority Associated Diagnoses Orde r Schedule US biophysical profile w non stress test Imaging Routine Polyhydramnios affecting in third trimester ([facility]) Expected: 05/04/2025 (Approximate), Expires: 11/03/2025 documented as of this encounter Visit Diagnoses Diagnosis Polyhydramnios affecting in third trimester ([facility]) documented in this encounter Care Teams Second Shift Supervisor Relationship Specialty Start Date End Date Shashi Hargrove MD [address] [facility] [place] [address] PCP - General Family Medicine 05/11/23 documented as of this encounter
--- OUTSIDE RECORDS SUMMARY | 2025-05-08 16:56 | XMS_ITS | Encounter Summary ---
Author Organization [facility] Address [address] [place] [address] Care Team Providers Care Cuff Setter Lockstitch Name Role Phone Shashi Hargrove MD Primary Care Provider [phone] Encounter Details Date Type Department Care Team (Late Contact Info) Description 04/27/2025 Bamboo flowsheet [facility] OB [address] [place] [phone] Kelle Mosley PA [address] [place] [address] [address] [place], [facility] Social History Tobacco Use Types Packs/Day Years [...] Description 2025 2:30 PM EDT Routine [facility] OB [address] [place] [address] Graham Howell DO [address] [place] [address] Dr [place], [place] [address] documented as of this encounter Visit Diagnoses Not on filedocumented in this encounter Care Teams Cuff Setter Lockstitch Relationship Specialty Start Date End Date Shashi Hargrove MD [address] [place] [address] PCP - General Family Medicine 05/11/23 documented as of this encounter
[2025-05-08 17:19] VITALS: BP 121/71; PULSE 77
--- NOTE | 2025-05-08 17:25 | US_ITS ---
[place] [id number] Patient Name: ROSALIE FREEMAN MRN: [id number] date: 1995 Sex: F Assigned Patient Location: [facility] Current Patient Location: Accession/Order Number: [id number] Exam Date: 05/08/2025 21:48 Report Date: 05/08/2025 21:49 At the request of: DEISY CARDONA DO Procedure: US OB BPP w non-stress Ultrasound biophysical profile HISTORY: Polyhydramnios Adequate breathing movement, gross body movement, tone and amniotic fluid volume for total score of 8 out of 8. The amniotic fluid index is 26.0cm and the 95th percentile.. The heart rate 159 bpm. US/US OB BPP w non-stress IMPRESSION: Adequate ultrasound biophysical profile amniotic fluid index 26.0 cm consistent with polyhydramnios. Impression dictated by: Daniel Graham M.D. 05/08/2025 9:49 PM Dictation Location[facility] Electronically authenticated by: [id number] Y Date: 05/08/2025 21:49
== END 2025-05-08 18:36 | disposition home or self-care (01) ==
LOC: US 16:52 → FBC 17:13
PROVIDERS: PCP Family Medicine; Visit Provider Obstetrics & Gynecology
DX: O40.3XX0 Polyhydramnios, third trimester, not applicable or unspecified (principal); Z3A.36 36 weeks gestation of pregnancy
CPT/HCPCS: 76818

== ENCOUNTER 2025-05-10 20:59 | Outpatient (REF) | payer OTHER, SELFPAY ==
--- OUTSIDE RECORDS SUMMARY | 2015-04-06 01:53 | XMS_ITS | Encounter Summary ---
Author Organization [facility] Address [address] [place] [address] Care Team Providers Care Groover And Turner Name Role Phone Shashi Hargrove MD Primary Care Provider [phone] Encounter Details Date Type Department Care Team (Late st Contact Info) Description 04/06/2015 1:53 AM EDT Hospital Encounter MTH PRE ADMIT [address] [phone] Abdi Mcgill MD [address] [facility] [address] [facility] [address] [place] [address] Social History Tobacco Use Types Packs/Day Years [...] UA YELLOW YEL 04/06/2015 12:25 PM EDT [facility] Turbidity UA CLEAR CLEAR 04/06/2015 12:25 PM EDT [facility] Glucose, Ur NEGATIVE NEG 04/06/2015 12:25 PM EDT [facility] Bilirubin Urine NEGATIVE NEG 5 12:25 PM EDT [facility] Ketones, Urine NEGATIVE NEG 04/06/2015 12:25 PM EDT [facility] Specific [place], UA >1.030(H) 1.010 - 1.020 04/06/2015 12:25 PM EDT [facility] Urine Hgb NEGATIVE NEG 04/06/2015 12:25 PM EDT [facility] pH, UA 6.0 5.0 - 9.0 04/06/2015 12:25 PM EDT [facility] Protein, UA NEGATIVE NEG 04/06/2015 12:25 PM EDT [facility] Urobilinogen, Urine Normal NORM 04/06/2015 12:25 PM EDT [facility] Nitrite, Urine NEGATIVE NEG 04/06/2015 12:25 PM EDT [facility] Leukocyte Esterase, Urine TRACE(A) NEG 04/06/2015 12:25 PM EDT [facility] Urinalysis Comments NOT REPORTED [facility] - 04/06/2015 12:25 PM EDT [facility] WBC, UA 0 TO 2 0 - 5 /HPF 04/06/2015 12:25 PM EDT [facility] RBC, UA None 0 - 2 /HPF 04/06/2015 12:25 PM EDT [facility] Casts UA NOT REPORTED 0 - 2 /LPF [facility] Crystals, UA NOT REPORTED NONE /HPF [facility] Epithelial Cells, UA 0 TO 2 0 - 25 /HPF 04/06/2015 12:25 PM EDT [facility] Renal Epithelial, UA NOT REPORTED 0 /HPF [facility] Bacteria, UA NOT REPORTED NONE [facility] Mucus, UA NOT REPORTED NONE [facility] Trichomonas NOT REPORTED NONE [facility] Amorphous, UA 1+(A) NONE 04/06/2015 12:25 PM EDT [facility] Comment: Performed at [address] [place] [address] ([phone] Other Observations UA NOT REPORTED NREQ [facility] Yeast, UA NOT REPORTED NONE [facility] URINE SPECIMEN / Unknown 04/06/2015 11:11 AM EDT 04/06/2015 11:12 AM EDT us Abdi Mcgill MD URINE ORDERABLES Final Result [facility] [address] [place] [address], [facility] [phone] [facility] * TYPE AND SCREEN (04/06/2015 11:11 AM EDT) Expiration Date 04/13/2015 5 11:47 AM EDT [facility] Arm Band Number [id number] 11:47 AM EDT [facility] ABO/Rh B POSITIVE 04/06/2015 11:47 AM EDT [facility] Antibody Screen NEGATIVE 5 12:19 PM EDT [facility] Comment: Performed at [address] [place] [address] ([phone] Blood (substance) BLOOD SPECIMEN / Unknown 04/06/2015 11:11 AM EDT 04/06/2015 11:12 AM EDT Abdi Mcgill MD BLOOD BANK TEST ORDERABLES Fi nal Result Performing Organization Address [facility]/ZIP Co de Phone Number [facility] [address] [place] [address] [facility] * HCG Qualitative, Serum (04/06/2015 11:11 AM EDT) Preg, Serum NEGATIVE NEG 04/06/2015 12:33 PM EDT [facility] Comment: Performed at [address] [place], [place] [id number] ([phone] Blood (substance) BLOOD SPECIMEN / Unknown 04/06/2015 11:11 AM EDT 04/06/2015 11:12 AM EDT Abdi Mcgill MD CHEMISTRY ORDERABLES Final Re sult Performing Organization Address [facility] Co de Phone Number [facility] [address] [place] [address] [facility] * (ABNORMAL) CBC auto differential (04/06/2015 11:11 AM EDT) [facility] WBC 6.9 4.5 - 13.5 k/uL 04/06/2015 11:31 AM EDT [facility] RBC 4.36 4.0 - 5.2 m/uL 04/06/2015 11:31 AM EDT [facility] Hemoglobin 12.6 12.0 - 16.0 g/dL 04/06/2015 11:31 AM EDT [facility] Hematocrit 37.5 36 - 46 % 04/06/2015 11:31 AM EDT [facility] MCV 86.2 80 - 100 fL 04/06/2015 11:31 AM EDT [facility] MCH 28.9 26 - 34 pg 04/06/2015 11:31 AM EDT [facility] MCHC 33.6 31 - 37 g/dL 04/06/2015 11:31 AM EDT [facility] RDW 13.8 12.1 - 15.2 % 04/06/2015 11:31 AM EDT [facility] Platelets 277 140 - 450 k/uL 04/06/2015 11:31 AM EDT [facility] MPV NOT REPORTED 6.0 - 12.0 fL [facility] Differential Type NOT REPORTED [facility] Seg Neutrophils 66(H) 34 - 64 % 5 11:31 AM EDT [facility] Lymphocytes 21(L) 25 - 45 % 04/06/2015 11:31 AM EDT [facility] Monocytes % 10 0 - 12 % 04/06/2015 11:31 AM EDT [facility] Eosinophils % 3 0 - 8 % 04/06/2015 11:31 AM EDT [facility] Basophils % 0 0 - 2 % 04/06/2015 11:31 AM EDT [facility] Neutrophils Absolute 4.50 1.8 - 7.7 k/uL 04/06/2015 11:31 AM EDT [facility] Lymphocytes Absolute 1.40 1.0 - 4.8 k/uL 04/06/2015 11:31 AM EDT [facility] Monocytes Absolute 0.70 0.0 - 1.0 k/uL 04/06/2015 11:31 AM EDT [facility] Eosinophils Absolute 0.20 0.0 - 0.4 k/uL 04/06/2015 11:31 AM EDT [facility] Basophils Absolute 0.00 0.0 - 0.2 k/uL 04/06/2015 11:31 AM EDT [facility] Comment: Performed at [address] [place] [address] ([phone] WBC Morphology NOT REPORTED [facility] RBC Morphology NOT REPORTED [facility] Platelet Estimate NOT REPORTED [facility] BLOOD SPECIMEN / Unknown 04/06/2015 11:11 AM EDT 04/06/2015 11:12 AM EDT us Abdi Mcgill MD HEMATOLOGY ORDERABLES Final R esult [facility] [address] [place] [address], [facility] [phone] [facility] documented in this encounter Visit Diagnoses Not on filedocumented in this encounter Care Teams Groover And Turner Relationship Specialty Start Date End Date Shashi Hargrove MD [address] [place] [address] PCP - General 04/05/15 documented as of this encounter
--- OUTSIDE RECORDS SUMMARY | 2024-12-06 05:30 | XMS_ITS ---
Author Organization [facility] Address [address] [place] [address] Care Team Providers Care Mill Platform Supervisor Name Role Phone Dr. Collins Mei Primary Care Provider [phone] Caryn Roth [phone] REASON FOR VISIT PROPHY Encounters Encounter Location Date Provider Diagnosis [facility] [address] [place] [address] 12/06/2024 Caryn Joyner Plan Of Treatment No Information Progress Notes * FREEMANASHLEE CHINCHILLANDOB:1995 ( 30 yo F)Acc No.[id number]:12/06/2024 Patient: ROSALIE SEGURA Provider: Melody Joyner :1995 A ge:29 Y S ex:Female Date:12/06/2024 Address:[address] [place], [place] [id number] Pcp:Dr. Collins Mei Subjective: * Chief Complaints: * 1 . PROPHY. * Medical History: Objective: * Vitals: Assessment: Plan: * Treatment: * Images: * Electronic signature of Farhan Joyner on 2025 at 02:27 PM EDT Sign off status: Pending * Provider: Melody Joyner Date: 0 12/06/2024 Generated for Hardiki ng/Faxing/eTransmitting on: 0 2025 02:27 PM EDT
--- OUTSIDE RECORDS SUMMARY | 2024-12-08 04:09 | XMS_ITS ---
Author Organization The [facility] in [place] Address [address] [place] [address] Care Team Providers Care Glass Cleaning Machine Tender Name Role Phone Ethan Hargrove Primary Care Provider [phone] REASON FOR VISIT pink eye Medications Medication SIG (Take, Route, Frequency, Duration) Notes Start Date End Date Status Krzmpesh-Fxvxutivj-Flshtmh h 3.5-92189-5.1 1 drop into affected eye Ophthalmic Four times a day for 7 days 12/08/2024 Active Encounters Encounter Location Date Provider Diagnosis [address] [place] [address] 12/08/2024 Ethan Hargrove Plan Of Treatment Medication Medication Name Sig Start Date Stop Date Notes Prndfoin-Ecxtrngiq-Vnzewhbp 3.5-79127-3.1 1 drop into affected eye Ophthalmic Four times a day for 7 days 12/08/2024 Progress Notes * Jocelyn FREEMAN VDOB:1995 (29 yo F)Acc No.[id number]:12/08/2024 Patient: Magaly JAIMES Jocelyn Stafford :1995 A ge:29 Y S ex:Female Address:[address] [place] [address], [place], [address] * Refills Start Kjsncoan-Abbuukwkg-Dezzxzeq Suspension, 3.5-85052-3.1, Ophthalmic, 1.4 ML, 1 drop into affected eye, Four times a day, 7 days, Refills=1 * true * Date: Generated for Printi ng/Faradhag/Rayitting on: 0 2025 09:01 PM EDT
--- OUTSIDE RECORDS SUMMARY | 2024-12-12 07:55 | XMS_ITS ---
Author Organization The [facility] in [place] Address [address] [place] [address] Care Team Providers Care Clinical Documentation Spec Name Role Phone Ethan Hargrove Primary Care Provider REASON FOR VISIT sinus infection- not better Medications Medication SIG (Take, Route, Fr equency, Duration) Notes Start Date End Date Status Cephalexin 500 MG 2 tabs Orally bid for 10 days Active Encounters Encounter Location Date Provider Diagnosis [facility] [address] [place] [address] 12/12/2024 Ethan Hargrove Acute non-recurrent sinusitis, unspecified location J01.90 Assessments Encounter Date Diagnosis (ICD Code) Assessment Notes Treatment Notes Treatment Clinical Notes Section Notes 12/12/2024 Acute non-recurrent sinusitis, unspecified location (ICD-10 - J01.90) Plan Of Treatment Medication Medication Name Sig Start Date Stop Date Notes Cephalexin 500 MG 2 tabs Orally bid for 10 days 12/06/2024 Progress Notes * Jocelyn FREEMAN VDOB:1995 (29 yo F)Acc No.[id number]:12/12/2024 Patient: Magaly JAIMES Jocelyn Rivera :1995 A ge:29 Y S ex:Female Address:[address] [place] [address], [address] * Refills Refill Cephalexin Tablet, 500 MG, Orally, 40 Tablet, 2 tabs, bid, 10 days * true * Date: Generated for Printi ng/Faxing/eTransmitting on: 0 2025 02:27 PM EDT
--- OUTSIDE RECORDS SUMMARY | 2025-01-13 10:40 | XMS_ITS ---
Author Organization [facility] Address [address] [place] [address] Care Team Providers Care Lens Mold Setter Name Role Phone Dr. Collins Mei Primary Care Provider REASON FOR VISIT FILLING Encounters Encounter Location Date Provider Diagnosis [facility] [address] [place] [address] 01/13/2025 Collins Mei Plan Of Treatment No Information Progress Notes * ASHLEE FREEMANNDOB:1995 ( 30 yo F)Acc No.[id number]:01/13/2025 Patient: ROSALIE SEGURA Provider: Laura Mei DDS :1995 A ge:29 Y S ex:Female Date:01/13/2025 Address:[address] [place], [place] [id number] Subjective: * Chief Complaints: * 1 . FILLING. * Medical History: Objective: * Vitals: Assessment: Plan: * Treatment: * Images: * Electronic signature of Dr. Collins Mei , DMD on 2025 at 02:27 PM EDT Sign off status: Pending * Provider: Laura Mei DDS Date: 01/13/2025 Generated for Jennifer ng/Faradhag/eTransmitting on: 0 2025 02:27 PM EDT
--- OUTSIDE RECORDS SUMMARY | 2025-03-10 10:15 | XMS_ITS ---
Author Organization [facility] Address [address] [place] [address] Care Team Providers Care Sanforizing Machine Operator Name Role Phone Dr. Collins Mei Primary Care Provider [phone] Caryn Roth [phone] REASON FOR VISIT PROPHY Encounters Encounter Location Date Provider Diagnosis [facility] [address] [place] [address] 03/10/2025 Caryn Joyner Plan Of Treatment No Information Progress Notes * FREEMANASHLEENDOB:1995 ( 30 yo F)Acc No.[id number]:03/10/2025 Patient: ROSALIE SEGURA Provider: Melody Joyner :1995 A ge:29 Y S ex:Female Date:03/10/2025 Address:[address] [place], [place] [id number] Pcp:Dr. Collins Mei Subjective: * Chief Complaints: * 1 . PROPHY. * Medical History: Objective: * Vitals: Assessment: Plan: * Treatment: * Images: * Electronic signature of Farhan Joyner on 2025 at 02:27 PM EDT Sign off status: Pending * Provider: Melody Joyner Date: 03/10/2025 Generated for Hardiki ng/Faxing/eTransmitting on: 0 2025 02:27 PM EDT
--- OUTSIDE RECORDS SUMMARY | 2025-04-25 12:34 | XMS_ITS ---
Author Organization [facility] [place] Address [address] [place] [address] Care Team Providers Care Flat Hammerer Name Role Phone Ethan Hargrove Primary Care Provider [phone] REASON FOR VISIT UA Encounters Encounter Location Date Provider Diagnosis [facility] [address] [place] [address] 04/25/2025 Ethan Hargrove Plan Of Treatment No Information Progress Notes * Jocelyn FREEMAN VDOB:1995 (29 yo F)Acc No.[id number]:04/25/2025 Patient: Magaly TURNERJocelyn CHINCHILLA V :1995 A ge:29 Y S ex:Female Address:[address] [place] [address], [phone] * true * Date: Generated for Jennifer wren/Ted/eTransmitting on: 0 2025 02:27 PM EDT
--- OUTSIDE RECORDS SUMMARY | 2025-04-27 13:00 | XMS_ITS | Encounter Summary ---
Author Organization [facility] Address [address] [place] [address] Care Team Providers Care Maintenance Shop Clerk Name Role Phone Shashi Hargrove MD Primary Care Provider [phone] Reason for Visit * Reason Comments Routine Visit Encounter Details Date Type Department Care Team ([facility] Contact Info) Description 04/27/2025 1:00 PM EDT Routine [facility] BCP OB [address] [place] [address] Kelle Mosley PA [address] [facility] [address] [place], [facility]11 Third trimester ([facility]); 34 weeks gestation of ([facility]) Social History Tobacco Use Types Packs/Day Years [...] Sign Reading Time Taken Comments Blood Pressure 124/90 04/27/2025 1:06 PM EDT Pulse - - Temperature - - Respiratory Rate - - Oxygen Saturation - - Inhaled Oxygen Concentration - - Weight 148 kg (326 lb 8 oz) 04/27/2025 1:06 PM E DT Height - - Body Mass Index 46.85 07/26/2024 8:36 AM EDT documented in this encounter Progress Notes * KATHIA Ledezma - 04/27/2025 1:00 PM EDT Reason for Appointment: Patient ID: Jocelyn Rodrgíuez is a 29 y.o. female who presents for Routine Visit Patient presents today for Return OB appointment. MEDICATIONS Current Outpatient Medications Medication Instructions cephalexin (KEFLEX) 500 mg, Oral, 3 times daily magnesium oxide (MAG-OX) 400 mg, Oral, Daily [...] reviewed. Vitals: Estimated body mass index is 46.85 kg/m?? as calculated from the following: Height as of 07/26/24: 5' 10 . Weight as of this encounter: 326 lb 8 oz. BP: 124/90 Patient's last menstrual period was 08/29/2024. ASSESSMENT & PLAN ICD-10-CM 1. Third trimester Z34.93 POCT urinalysis dipstick manually resulted cephalexin (Keflex) 500 MG capsule 2. 34 weeks gestation of Z3A.34 Return OB: Patient presents today for a routine obstetrics appointment. Patient is currently 34w3d . Patient states she is doing well but has complaints of being tired due to current . Patient has verbalizes frequent movement. labor precautions was discussed/given and patient was instructed to perform kick counts three times a day. Orders Placed This Encounter Procedures POCT urinalysis dipstick manually resulted Patient states ua culture pending with hospital due to uti, patient had not been started on antibiotics, we will send in keflex and ua culture from office collection today Follow Up: Patient is to return to office in 2 week for routine OB appointment. Documented by KATHIA Ledezma on behalf of: KATHIA Ledezma documented in this encounter Plan of Treatment Upcoming Encounters Date Type Department Care Team (Late st Contact Info) Description 05/17/2025 1:50 PM EDT Routine [facility] BCP OB [address] [place] [address] Kelle Mosley PA [address] [facility] [address] [place], [place] [id number] documented as of this encounter Procedures Procedure Name Priority Date/Time Associated Diagnosis Comments POCT URINALYSIS DIPSTICK Routine 04/27/2025 1:20 PM EDT Third trimester ([facility]) documented in this encounter Results * (ABNORMAL) POCT urinalysis dipstick manually resulted (04/27/2025 1:20 PM EDT) Color, UA Yellow Clarity, UA Clear Glucose, UA Negative Negative - 2000(110) ++++ mg/dL Bilirubin, UA Positive Negative - 4(70) +++ mg/dL Comment:small Ketones, UA Positive Negative - 160(16) ++++ mg/dL Comment:Trace Spec Grav, UA 1.025 1 - 1.03 Blood, UA Negative Negative - 50 Issac/mcL pH, UA 6.0 5 - 9 Protein, UA Positive Negative - 2000(20) ++++ mg/dL Comment:30mg/dL Urobilinogen, UA 0.2 0.2 - 12 mg/dL Leukocytes, UA Trace Negative - 500+++ Christo/mcL Nitrite, UA Negative Negative - Positive Urine 04/27/2025 1:20 PM EDT us Kelle BAE POINT OF CARE TEST ENTER/EDIT OR DERABLES Final Result documented in this encounter Visit Diagnoses Diagnosis Third trimester ([facility]) state, incidental 34 weeks gestation of ([facility]) documented in this encounter Care Teams Maintenance Shop Clerk Relationship Specialty Start Date End Date Shashi Hargrove MD [address] [facility] [place] [address] PCP - General Family Medicine 05/11/23 documented as of this encounter
--- OUTSIDE RECORDS SUMMARY | 2025-04-27 15:00 | XMS_ITS | Encounter Summary ---
Author Organization [facility] Address [address] [place] [address] Care Team Providers Care Teacher Aide Name Role Phone Shashi Hargrove MD Primary Care Provider [phone] Encounter Details Date Type Department Care Team (Latest Contact Info) Description 04/27/2025 3:00 PM EDT Ancillary Procedure [facility] BCP OB [address] [facility] [place] [address] size inconsistent with dates ([facility]) Social History Tobacco Use Types Packs/Day Years [...] Routine [facility] BCP OB [address] [place] [address] Kelle Mosley PA [address] [place], [facility]11 documented as of this encounter Procedures Procedure Name Priority Date/Time Associated Diagnosis Comments US OB FOLLOW UP TRANSABDOMINAL APPROACH Routine 04/27/2025 2:58 PM EDT size inconsistent with dates ([facility]) documented in this encounter Results * US [...] II, MD, PHD at 28-Apr-2025 08:26:54 AM [facility] Procedure Note Tato [...] signed by TATO AMAYA II, MD, PHD [id number] 08:26:54 AM [facility] us Graham Dante DO IMG OB US PROCEDURES Final Resul t documented in this encounter Visit Diagnoses Diagnosis size inconsistent with dates ([facility]) documented in this encounter Care Teams Teacher Aide Relationship Specialty Start Date End Date Shashi Hargrove MD [address] [place] [address] PCP - General Family Medicine 05/11/23 documented as of this encounter
--- OUTSIDE RECORDS SUMMARY | 2025-05-10 14:30 | XMS_ITS | Encounter Summary ---
Author Organization [facility] Address [address] [facility] [place] [address] Care Team Providers Care Rand Maker Name Role Phone Shashi Hargrove MD Primary Care Provider [phone] Reason for Visit * Reason Comments Routine Visit Encounter Details Date Type Department Care Team ([facility] Contact Info) Description 2025 2:30 PM EDT Routine [facility] [address] [facility] [place] [place] [phone] Graham Howell, [address] [facility] [place] [address] Third trimester ([facility]); 36 weeks gestation of ([facility]) Social History Tobacco Use Types Packs/Day Years [...] in this encounter Progress Notes * Felicitas Chnu NP - 2025 2:30 PM EDT Reason [...] abdominal pain 05/27/2023 Scoliosis 05/27/2023 Vaginal delivery ([facility]) 09/06/2014 Encounter for weight management 06/27/2024 Resolved [...] nursing note reviewed. Exam conducted with a dental technician present. Vitals: Estimated body mass index is 47.06 kg/m?? as calculated from the following: Height as of 07/26/24: 5' 10 . Weight as of this encounter: 328 lb. BP: 132/86 Patient's last menstrual period was 08/29/2024. ASSESSMENT & PLAN ICD-10-CM 1. Third trimester ([facility]) Z34.93 POCT urinalysis dipstick manually resulted CULTURE, GROUP B STREP WITH SUSCEPTIBLITY CULTURE, GROUP B STREP WITH SUSCEPTIBLITY 2. 36 weeks gestation of ([facility]) Z3A.36 Return OB: Patient presents today for [...] EDT Routine [facility] BCP OB [address] [facility] [place] [address] Kelle Mosley PA [address] [facility] [place] [address] Scheduled Orders Name Type Priority Associated Diagnoses Orde r Schedule CULTURE, GROUP B STREP WITH SUSCEPTIBLITY Lab Routine Third trimester ([facility]) Expected: 2025, Expires: 2026 documented as of this encounter Procedures Procedure Name Priority Date/Time Associated Diagnosis Comments POCT URINALYSIS DIPSTICK Routine 2025 3:07 PM EDT Third trimester ([facility]) documented in this encounter Results * (ABNORMAL) [...] this encounter Visit Diagnoses Diagnosis Third trimester ([facility]) state, incidental 36 weeks gestation of ([facility]) documented in this encounter Care Teams Rand Maker Relationship Specialty Start Date End Date Shashi Hargrove MD [address] [place] [phone] PCP - General Family Medicine 05/11/23 documented as of this encounter
--- OUTSIDE RECORDS SUMMARY | 2025-05-10 21:01 | XMS_ITS | Encounter Summary ---
Author Organization [facility] Address [address] [place] [address] Care Team Providers Care Cattle Producers Name Role Phone Shashi Hargrove MD Primary Care Provider [phone] Encounter Details Date Type Department Care Team ([facility] Contact Info) Description 11/03/2024 Abstract [facility] BCP OB [address] [place] [address] Graahm Howell DO [address] [place], [facility] Social History Tobacco Use Types Packs/Day [...] Department Care Team (Late Contact Info) Description 05/17/2025 1:50 PM EDT Routine [facility] BCP OB [address] [facility] [place] [address] Kelle Mosley PA [address] [place], [place] [phone] documented as of this encounter Visit Diagnoses Not on filedocumented in this encounter Care Teams Cattle Producers Relationship Specialty Start Date End Date Shashi Hargrove MD [address] [place] [phone] PCP - General Family Medicine 05/11/23 documented as of this encounter
--- OUTSIDE RECORDS SUMMARY | 2025-05-10 21:01 | XMS_ITS | Encounter Summary ---
Author Organization [facility] Address [address] [place] [address] Care Team Providers Care Floor Layer Name Role Phone Shashi Hargrove MD Primary Care Provider [phone] Encounter Details Date Type Department Care Team ([facility] Contact Info) Description 06/29/2024 Abstract [facility] OB [address] [place] [phone] Graham Howell DO [address] [place] [address] Dr Neisha Dill, [place] [address] Social History Tobacco Use Types Packs/Day Years [...] Upcoming Encounters Date Type Department Care Team ([facility] Contact Info) Description 05/17/2025 1:50 PM EDT Routine [facility] OB [address] [place] [address] Kelle Mosley PA [address] [facility] [address] [place], [facility] documented as of this encounter Visit Diagnoses Not on filedocumented in this encounter Care Teams Floor Layer Relationship Specialty Start Date End Date Shashi Hargrove MD [address] [place] [address] PCP - General Family Medicine 05/11/23 documented as of this encounter
--- OUTSIDE RECORDS SUMMARY | 2025-05-10 21:01 | XMS_ITS | Patient Health Record ---
Author Organization [facility] Address [address] [place] [address] Care Team Providers Care Disability Counselor Name Role Phone Dr. Collins Mei Primary Care Provider [phone] Caryn Roth Unavailable [phone] Reason For Referral No Information Encounters Encounter Location Date Provider Diagnosis [facility] [address] [place] [address] 09/23/2024 Collins Mei Encounter for dental examination and cleaning with abnormal findings Z01.21 ; Other dental procedure status Z98.818 ; Disturbances in tooth eruption K00.6 ; Acute gingivitis, plaque induced K05.00 and Dental caries on pit and fissure surface penetrating into dentin K02.52 [facility] [address] [place] [address] 12/02/2024 Collins Mei Dental caries on pit [...] Coverage Start Date Coverage End Date [employer] [address] [address] [place] [address] [id number] ROSALIE FREEMAN Self - patient is the insured 3 [employer] [facility] [employer] [address] [place] [address] [id number] ROSALIE FREEMAN Self - patient is the insured 3
--- OUTSIDE RECORDS SUMMARY | 2025-05-10 21:01 | XMS_ITS | Encounter Summary ---
Author Organization [facility] Address [address] [place] [address] Care Team Providers Care Gunstock Repairer Name Role Phone Shashi Hargrove MD Primary Care Provider [phone] Encounter Details Date Type Department Care Team ([facility] Contact Info) Description 12/23/2024 Abstract [facility] OB [address] [place] [address] Graham Howell DO [address] [facility] [address] Neisha Dill, [facility]11 Social History Tobacco Use Types [...] PM EDT Routine [facility] [address] [place] [address] Kelle Mosley PA [address] [facility] [address] [place], [place] [id number] documented as of this encounter Visit Diagnoses Not on filedocumented in this encounter Care Teams Gunstock Repairer Relationship Specialty Start Date End Date Shashi Hargrove MD [address] [place] [address] PCP - General Family Medicine 05/11/23 documented as of this encounter
--- OUTSIDE RECORDS SUMMARY | 2025-05-10 21:01 | XMS_ITS | Encounter Summary ---
Author Organization [facility] Address [address] [place] [address] Care Team Providers Care Sizing End Bander Name Role Phone Shashi Hargrove MD Primary Care Provider [phone] Encounter Details Date Type Department Care Team ([facility] Contact Info) Description 06/28/2024 Clinisync Result Encounter [facility] External Department Unsolicited Deisy Howell DO [address] [facility] [place] [address] Social History Tobacco Use Types Packs/Day Years [...] Upcoming Encounters Date Type Department Care Team ([facility] Contact Info) Description 05/17/2025 1:50 PM EDT Routine [facility] [address] [place] [phone] Kelle Mosley PA [address] [facility] [address] [place], [place] [id number] documented as of this encounter Procedures Procedure Name Priority Date/Time Associated Diagnosis Comments US PELVIS TRANSVAGINAL 06/28/2024 8:07 AM EDT documented in this encounter Results * US PELVIS TRANSVAGINAL (06/28/2024 8:07 AM EDT) Anatomical Region Laterality Modality Other 06/28/2024 8:07 AM EDT Narrative 06/28/2024 8:09 AM EDT [address] [address] Ultrasound Report Signed Patient: JOCELYN FREEMAN V MR#: [id number] : 1995 Acct:[id number] Age/Sex: 29 / F ADM Date: 06/27/24 Loc: [facility] Attending Dr: Deisy Howell D.O. Ordering Physician: Deisy Howell D.O. Date of Service: 06/27/24 Procedure(s): US pelvis transvaginal Accession Number(s): [id number] cc: Deisy Howell D.O.; Shashi Hargrove M.D. [place] [id number] Patient Name: JOCELYN FREEMAN MRN: [id number] date: 1995 Sex: F Assigned Patient Location: [facility] Current Patient Location: Accession/Order Number: [id number] Exam Date: 06/27/2024 09:02 Report Date: 06/28/2024 [...] Dictated By: Nandini Duarte M.D. Signed By: 06/28/24 08 DD/ 08 TD/TT: Carton Machine Operator: Procedure Note Radiology, Radiologist, - 06/28/2024 [place] [address] Ultrasound Report Signed Patient: JOCELYN FREEMAN R#: [id number] : 1995Acct:[id number] Age/Sex: 29 / FADM Date: 06/27/24 Loc: [facility] Attending Dr: Deisy Howell D.O. Ordering Physician: Deisy Howell D.O. Date of Service: 06/27/24 Procedure(s): US pelvis transvaginal Accession Number(s): [id number] cc: Deisy Howell D.O.; Shashi Hargrove M.D. [place] [id number] Patient Name: JOCELYN FREEMAN MRN: [id number] date: 1995 Sex: F Assigned Patient [facility]: [facility] Current Patient Location: Accession/Order Number: [id number] Exam Date: 06/27/2024 09:02 Report Date: 06/28/2024 [...] Duarte M.D. Signed By:06/28/24808 DD/ 6 TD/TT: Carton Machine Operator: us Deisy Dante DO [facility] Final Result documented in this encounter Visit Diagnoses Not on filedocumented in this encounter Care Teams Sizing End Bander Relationship Specialty Start Date End Date Shashi Hargorve MD [address] [place] [address] PCP - General Family Medicine 05/11/23 documented as of this encounter
--- OUTSIDE RECORDS SUMMARY | 2025-05-10 21:01 | XMS_ITS | Encounter Summary ---
Author Organization [facility] Address [address] [place] [address] Care Team Providers Care Transportation Consultant Name Role Phone Shashi Hargrove MD Primary Care Provider [phone] Encounter Details Date Type Department Care Team ([facility] Contact Info) Description 06/02/2024 Abstract [facility] OB [address] [place] [phone] Graham Howell DO [address] [place] [address] Dr Neisha Dill, [place] [address] Social History Tobacco Use Types Packs/Day Years [...] Upcoming Encounters Date Type Department Care Team ([facility] Contact Info) Description 05/17/2025 1:50 PM EDT Routine [facility] OB [address] [facility] [place] [address] Kelle Mosley PA [address] [place], [facility]11 documented as of this encounter Visit Diagnoses Not on filedocumented in this encounter Care Teams Transportation Consultant Relationship Specialty Start Date End Date Shashi Hargrove MD [address] [place] [address] PCP - General Family Medicine 05/11/23 documented as of this encounter
--- OUTSIDE RECORDS SUMMARY | 2025-05-10 21:01 | XMS_ITS | Clinical Summary ---
Author Organization [facility] Address [address] [place] [address] Care Team Providers Care Orthodontic Laboratory Technician Name Role Phone Shashi Hargrove MD Primary Care Provider [phone] Allergies No known active allergies Medications sertraline [...] Comment SPECIMEN RECEIVED 12/21/2018 7:08 AM EST [facility] CERVICAL SWAB / Unknown 12/20/2018 6:10 PM EST 12/20/2018 6:10 PM EST Abdi Mcgill MD PATHOLOGY/CYTOLOGY ORDERABLES Final Result Performing Organization Address City/[facility]/ZIP Co de Phone Number [facility] [address] [place] [address], [facility] [phone] [address], [facility] [phone] * HIV Rapid 1&2 (02/21/2014 2:51 PM EDT) [facility] Rapid HIV 1&2 NONREACTIVE NR 02/22/2014 2:29 PM EDT [facility] Comment: Interpretation: The presence of [...] characteristics of this test were determined by [facility]. It has not been cleared or approved by the U.S. Food and Drug Administration. The FDA has determined that such clearance is not necessary. Performed at [address] [place] [address] ([phone] 02/21/2014 2:51 PM EDT 02/21/2014 2:51 PM EDT Rachel Mejía INSOLE AND OUTSOLE PREPARER - CNM IMMUNOLOGY ORDERABLES Final Result Performing Organization Address City/[facility]/ZIP Co de Phone Number [facility] [address] [place] [address], [facility] [phone] [facility] from Last 3 Months or Most Recently Relevant to Health Maintenance Insurance [facility] PL[facility] Advance Directives * Full Code (Latest Code Status on File) Date Activated Date Inactivated Comments 04/10/2015 8:54 AM 04/10/2015 5:11 PM * Full Code Date Activated Date Inactivated Comments 09/06/2014 12:25 AM 09/07/2014 4:46 PM * Full Code Date Activated Date Inactivated Comments 09/04/2014 3:03 PM 09/06/2014 12:25 AM Care Teams Orthodontic Laboratory Technician Relationship Specialty Start Date End Date Shashi Hargrove MD [address] [place] [address] PCP - General 04/05/15
--- OUTSIDE RECORDS SUMMARY | 2025-05-10 21:01 | XMS_ITS | Encounter Summary ---
Author Organization [facility] Address [address] [facility] [place] [address] Care Team Providers Care Dumpman Name Role Phone Shashi Hargrove MD Primary Care Provider [phone] Encounter Details Date Type Department Care Team ([facility] Contact Info) Description 01/10/2025 Orders Only [facility] [address] [facility] [place] [address] Aleida Colon LPN [address] [place] [phone] Social History Tobacco Use Types Packs/Day Years [...] [address] [facility] [address] Kelle Mosley PA [address] [facility] [address] [place], [facility]11 documented as of this encounter Procedures Procedure Name Priority Date/Time Associated Diagnosis Comments PAP SMEAR Routine 12/27/2024 12:00 AM EST documented in this encounter Results * Pap Smear (12/27/2024 12:00 AM EST) Swab Cervical swab / Unknown [facility] CYTOLOGY ORDERABLES Final Re sult [facility] documented in this encounter Visit Diagnoses Not on filedocumented in this encounter Care Teams Dumpman Relationship Specialty Start Date End Date Shashi Hargrove MD [address] [place] [address] PCP - General Family Medicine 05/11/23 documented as of this encounter
--- OUTSIDE RECORDS SUMMARY | 2025-05-10 21:01 | XMS_ITS | Encounter Summary ---
Author Organization [facility] Address [address] [place] [address] Care Team Providers Care Recordist Chief Name Role Phone Shashi Hargrove MD Primary Care Provider [phone] Encounter Details Date Type Department Care Team ([facility] Contact Info) Description 06/04/2023 Abstract [facility] OB [address] [facility] [phone] Graham Howell DO [address] [place] [address] Dr Neisha Dill, [place] [address] Social History Tobacco Use Types Packs/Day Years [...] Upcoming Encounters Date Type Department Care Team ([facility] Contact Info) Description 05/17/2025 1:50 PM EDT Routine [facility] OB [address] [facility] [place] [address] Kelle Mosley PA [address] [facility] [address] [place], [facility]11 documented as of this encounter Visit Diagnoses Not on filedocumented in this encounter Care Teams Recordist Chief Relationship Specialty Start Date End Date Shashi Hargrove MD [address] [place] [address] PCP - General Family Medicine 05/11/23 documented as of this encounter
--- OUTSIDE RECORDS SUMMARY | 2025-05-10 21:01 | XMS_ITS | Encounter Summary ---
Author Organization [facility] Address [address] [facility] [place] [address] Care Team Providers Care Hand Baseball Sewer Name Role Phone Shashi Hargrove MD Primary Care Provider [phone] Encounter Details Date Type Department [facility] Team ([facility] Contact Info) Description 05/03/[address] [facility] OB [address] [facility] [place] [phone] Kelle Mosley PA [address] [place] [address] Dr [place], [place] [address] Social History Tobacco Use Types Packs/Day Years [...] Upcoming Encounters Date Type Department Care Team ([facility] Contact Info) Description 05/17/2025 1:50 PM EDT [facility] OB [address] [place] [address] [place] [address] Kelle Mosley PA [address] [place] [address] Dr [place] [id number] documented as of this encounter Visit Diagnoses Not on filedocumented in this encounter Care Teams Hand Baseball Sewer Relationship Specialty Start Date End Date Shashi Hargrove MD [address] [place] [address] PCP - General Family Medicine 05/11/23 documented as of this encounter
--- OUTSIDE RECORDS SUMMARY | 2025-05-10 21:01 | XMS_ITS | Encounter Summary ---
Author Organization [facility] Address [address] [place] [address] Care Team Providers Care Photo Finish Photographer Name Role Phone Shashi Hargrove MD Primary Care Provider [phone] Encounter Details Date Type Department Care Team (Late st Contact Info) Description 04/11/2015 Post-op Telephone [facility] General Surgery [address] [place], [place] [phone] Leila Wolff RN Social History Tobacco Use [...] filedocumented in this encounter Care Teams Photo Finish Photographer Relationship Specialty Start Date End Date Shashi Hargrove MD [address] [place] [address] PCP - General 04/05/15 documented as of this encounter
--- OUTSIDE RECORDS SUMMARY | 2025-05-10 21:01 | XMS_ITS | Encounter Summary ---
Author Organization [facility] Address [address] [place] [address] Care Team Providers Care Visual Coordinator Name Role Phone Shashi Hargrove MD Primary Care Provider [phone] Encounter Details Date Type Department [facility] Contact Info[facility] Description 05/31/2024 Abstract [facility] OB [address] [facility] [place] [phone] Graham Howell DO [address] [place] [address] Dr Neisha Dill, [place] [address] Social History Tobacco Use Types Packs/Day Years [...] Description 05/17/2025 1:50 PM EDT Routine [facility] OB [address] [facility] [place] [address] Kelle Mosley PA [address] [facility] [address] [place], [facility] documented as of this encounter Visit Diagnoses Not on filedocumented in this encounter Care Teams Visual Coordinator Relationship Specialty Start Date End Date Shashi Hargrove MD [address] [place] [address] PCP - General Family Medicine 05/11/23 documented as of this encounter
--- OUTSIDE RECORDS SUMMARY | 2025-05-10 21:01 | XMS_ITS | Encounter Summary ---
Author Organization [facility] Address [address] [place] [address] Care Team Providers Care Business Law Professor Name Role Phone Shashi Hargrove MD Primary Care Provider [phone] Encounter Details Date Type Department Care Team ([facility] Contact Info) Description 05/31/2024 Abstract [facility] OB [address] [facility] [place] [address] Graham Howell DO [address] [place] [address] Dr Neisha Dill, [place] [address] Social History Tobacco Use Types Packs/Day Years [...] Upcoming Encounters Date Type Department Care Team ([facility] Contact Info) Description 05/17/2025 1:50 PM EDT Routine [facility] OB [address] [facility] [place] [address] Kelle Mosley PA [address] [facility] [address] [place], [facility]11 documented as of this encounter Visit Diagnoses Not on filedocumented in this encounter Care Teams Business Law Professor Relationship Specialty Start Date End Date Shashi Hargrove MD [address] [place] [address] PCP - General Family Medicine 05/11/23 documented as of this encounter
--- OUTSIDE RECORDS SUMMARY | 2025-05-10 21:01 | XMS_ITS | Encounter Summary ---
Author Organization [facility] Address [address] [facility] [place] [address] Care Team Providers Care Fermenter Champagne Name Role Phone Shashi Hargrove MD Primary Care Provider [phone] Encounter Details Date Type Department Care Team ([facility] Contact Info) Description 12/23/2024 Abstract [facility] OB [address] [facility] [place] [address] Graham Howell DO [address] [facility] [address] Neisha [place]ill, [facility] Social History Tobacco Use Types Packs/Day Years [...] Routine [facility] OB [address] [facility] [place] [address] Kelle Mosley PA [address] [facility] [address] [place], [place] [id number] documented as of this encounter Visit Diagnoses Not on filedocumented in this encounter Care Teams Fermenter Champagne Relationship Specialty Start Date End Date Shashi Hargrove MD [address] [place] [address] PCP - General Family Medicine 05/11/23 documented as of this encounter
--- OUTSIDE RECORDS SUMMARY | 2025-05-10 21:01 | XMS_ITS | Encounter Summary ---
Author Organization [facility] Address [address] [place] [address] Care Team Providers Care Latrine Cleaner Name Role Phone Shashi Hargrove MD Primary Care Provider [phone] Encounter Details Date Type Department Care Team ([facility] Contact Info) Description 10/14/2024 Abstract [facility] OB [address] [facility] [place] [phone] Graham Howell DO [address] [place] [address] Dr Neisha Dill, [place] [address] Social History Tobacco Use Types Packs/Day Years [...] Upcoming Encounters Date Type Department Care Team ([facility] Contact Info) Description 05/17/2025 1:50 PM EDT Routine [facility] OB [address] [facility] [place] [address] Kelle Mosley PA [address] [facility] [address] [place], [facility]11 documented as of this encounter Visit Diagnoses Not on filedocumented in this encounter Care Teams Latrine Cleaner Relationship Specialty Start Date End Date Shashi Hargrove MD [address] [place] [address] PCP - General Family Medicine 05/11/23 documented as of this encounter
--- OUTSIDE RECORDS SUMMARY | 2025-05-10 21:01 | XMS_ITS | Clinical Summary ---
Author Organization [facility] Address [address] [place] [address] Care Team Providers Care Knuckle Bender Name Role Phone Shashi Hargrove MD Primary Care Provider [phone] Allergies Active Allergy Reactions Criticality Noted Date Comments Wound Dressings 12/25/2023 Other Reaction(s): hives Medications sertraline (Zoloft) 100 MG tablet Take 50 mg by mouth Daily Active magnesium oxide (Mag-Ox) 400 MG tabletIndications : headache in third trimester ([facility]) Take 1 tablet (400 mg) by mouth Daily 30 tablet 11 5 Active valACYclovir (Valtrex) 500 MG tabletIndications :Herpes zoster with complication Take 1 tablet (500 mg) by mouth Daily 30 tablet 11 5 04/28/20 25 cephalexin (Keflex) 500 MG capsuleIndication s:Third trimester ([facility]) Take 1 capsule (500 mg) by mouth [...] cyst of left ovary 04/10/2015 Vaginal delivery ([facility]) 09/06/2014 Estimated Date of Delivery Comme nts Yes 06/05/2025 Based on last me nstrual period of 08/29/2024 Encounters Date Type Department Care Team Description 2025 2:30 PM EDT Routine [facility] [address] [place] [address] Deisy Howell DO Third trimester ([facility]); 36 weeks gestation of ([facility]) 2025 Bamboo flowsheet [facility] [place] [address] [place] [address] Deisy Howell DO 05/08/2025 Clinisync Result Encounter [facility] External Department Unsolicited Deisy Howell DO 05/05/2025 Abstract [facility] [address] [place] [address] Kelle Craig LPN 05/05/2025 Patient Outreach [facility] [address] [place] [address] Kelle Craig LPN 05/04/2025 Telephone [facility] [address] [place] [address] Katie Fitzgerald MA 04/27/2025 3:00 PM EDT Ancillary Procedure [facility] [place] [address] [place] [address] size inconsistent with dates ([facility]) 04/27/2025 1:00 PM EDT Routine [facility] [place] [address] Kelle Mosley PA Third trimester ([facility]); 34 weeks gestation of ([facility]) 04/27/2025 Bamboo flowsheet [facility] [address] [place] [address] Kelle Mosley PA 04/25/2025 Clinisync Result Encounter [facility] External Department Unsolicited Deisy Howell, 04/25/2025 Telephone [facility] [address] [place] [address] Deisy Howell, 04/12/2025 2:30 PM EDT Routine [facility] OB [address] [place] [address] Deisy Howell, Third trimester ([facility]); 32 weeks gestation of ([facility]); size inconsistent with dates ([facility]) 04/12/2025 Bamboo flowsheet [facility] [address] [place] [address] Deisy Howell, 04/10/2025 Refill [facility] OB [address] [place] [address] Aleida Colon LPN headache in third trimester ([facility]) 03/29/2025 3:10 PM EDT Routine [facility] [address] [place] [address] Kelle Mosley PA Herpes zoster with complication (Primary Dx); 30 weeks gestation of ([facility]); Third trimester ([facility]) 03/29/2025 Bamboo flowsheet [facility] OB [address] [place] [address] Kelle Mosley PA 03/15/2025 2:50 PM EDT Routine [facility] OB [address] [place] [address] Deisy Howell, Third trimester ([facility]); 28 weeks gestation of ([facility]); H/O herpes zoster virus 03/15/2025 Bamboo flowsheet [facility] OB [address] [place] [address] Deisy Howell, DO 03/06/2025 Clinisync Result Encounter [facility] External Department Unsolicited Deisy Howell DO from Last 3 Months Family [...] (328 lb) 2025 3:04 PM EDT Height 177.8 cm (5' 10 ) 07/26/2024 8:36 AM EDT Body Mass Index 47.06 07/26/2024 8:36 AM EDT Plan of Treatment Upcoming Encounters Date Type Department Care Team (Late st Contact Info) Description 05/17/2025 1:50 PM EDT Routine [facility] [address] [place] [address] Kelle Mosley PA [address] [place] [address] Health Maintenance Due Date Last Done Comments Influenza Vaccine (Season Ended) 2025 10/28/20, 03/21/2014 Pap Smear 12/27/2027 12/27/2024, 06/23, 01/02/2021, Additional history exists Cervical Cancer Screening 07/09/2028 HPV/Cotest 07/09/2028 07/09/2023 Procedures Procedure Name Priority Date/Time Associated Diagnosis Comments POCT URINALYSIS DIPSTICK Routine 2025 3:07 PM EDT Third trimester ([facility]) US OB BPP W NON-STRESS 05/08/2025 9:49 PM EDT US OB FOLLOW UP TRANSABDOMINAL APPROACH Routine 04/27/2025 2:58 PM EDT size inconsistent with dates ([facility]) POCT URINALYSIS DIPSTICK Routine 04/27/2025 1:20 PM EDT Third trimester ([facility]) [facility] URINE MICROSCOPIC ONLY Routine 04/25/2025 4:15 PM EDT AMNISURE Routine 04/25/2025 4:15 PM EDT TBH UA (CLEAN/CATCH) FOURDRINIER TENDER/MICRO IF IND. Routine 04/25/2025 4:15 PM EDT POCT URINALYSIS DIPSTICK Routine 04/12/2025 3:28 PM EDT Third trimester ([facility]) POCT URINALYSIS DIPSTICK Routine 03/29/2025 3:51 PM EDT 30 weeks gestation of ([facility]) POCT URINALYSIS DIPSTICK Routine 03/15/2025 3:29 PM EDT Third trimester ([facility]) GLUCOSE 1 HOUR Routine 03/06/2025 9:29 AM EDT ALL CBC WITH AUTO DIFF Routine 9:29 AM EDT PAP SMEAR Routine 12/27/2024 12:00 AM EST THINPREP PAP AND HPV MRNA E6/E7 W/RFL HPV 16,18/45 Routine 07/09/2023 3:38 PM EDT Well woman exam with routine gynecological exam from Last 3 Months or Most Recently Relevant to Health Maintenance Results * (ABNORMAL) POCT urinalysis dipstick manually resulted (2025 3:07 PM EDT) Only the most recent of5 resultswithin the time period is included. Color, UA Jolie Clarity, UA Cloudy Glucose, [...] - Positive Urine 2025 3:07 PM EDT Deisy Hwoell DO POINT OF CARE TEST ENTER/EDIT OR DERABLES Final Result * US OB BPP W NON-STRESS (05/08/2025 9:49 PM EDT) Anatomical Region Laterality Modality Other 05/08/2025 9:49 PM EDT Narrative 05/08/2025 9:52 [place] [address] Ultrasound Report Signed Patient: JOCELYN FREEMAN V MR#: [id number] : 1995 Acct:[id number] Age/Sex: 29 / F ADM Date: 05/08/25 Loc: US Attending Dr: Deisy Howell D.O. Ordering Physician: Deisy Howell D.O. Date of Service: 05/08/25 Procedure(s): US OB BPP w non-stress Accession Number(s): [id number] cc: Deisy Howell D.O.; Shashi Hargrove M.D. The [address] [address] Patient Name: JOCELYN FREEMAN MRN: [facility]:[id number] date: 1995 Sex: F Assigned Patient Location: [facility] Current Patient Location: Accession/Order Number: [id number] Exam Date: 05/08/2025 21:48 Report Date: 05/08/2025 21:49 At the request of: DEISY HOWELL DO Procedure: US OB BPP w non-stress Ultrasound biophysical profile HISTORY: Polyhydramnios Adequate breathing movement, gross body movement, tone and amniotic fluid volume for total score of 8 out of 8. The amniotic fluid index is 26.0cm and the 95th percentile.. The heart rate 159 bpm. US/US OB BPP w non-stress IMPRESSION: Adequate ultrasound biophysical profile amniotic fluid index 26.0 cm consistent with polyhydramnios. Impression dictated by: Daniel Graham M.D. 05/08/2025 9:49 PM Dictation Location: [place] [address] Electronically authenticated by: [id number] Y Date: 05/08/2025 21:49 Dictated By: Daniel Graham D.O. Signed By: 05/08/252151 DD/ 48 TD/TT: Watch Dial Printer: Procedure Note Radiology, Radiologist, - 05/08/2025 [place] [address] Ultrasound Report Signed Patient: JOCELYN FREEMAN VMR#: [id number] : 1995Acct:[id number] Age/Sex: 29 / FADM Date: 05/08/25 Loc: US Attending Dr: Deisy Howell D.O. Ordering Physician: Deisy Howell D.O. Date of Service: 05/08/25 Procedure(s): US OB BPP w non-stress Accession Number(s): [id number] cc: Deisy Howell D.O.; Shashi Hargrove M.D. The [place] [id number] Patient Name: JOCELYN FREEMAN MRN: [id number] date: 1995 Sex: F Assigned Patient Location: [facility] Current Patient Location: Accession/Order Number: [id number] Exam Date: 05/08/2025 21:48 Report Date: 05/08/2025 21:49 At the request of: DEISY HOWELL DO Procedure: US OB BPP w non-stress Ultrasound biophysical profile HISTORY: Polyhydramnios Adequate breathing movement, gross body movement, tone and amniotic fluid volume for total score of 8 out of 8. The amniotic fluidindex is 26.0cm and the 95th percentile.. The heart rate 159 bpm. US/US OB BPP w non-stress IMPRESSION: Adequate ultrasound biophysical profile amniotic fluid index26.0 cm consistent with polyhydramnios. Impression dictated by: Daniel Graham M.D. 05/08/2025 9:49 PM Dictation Location: [place] Electronically authenticated by: [id number] Y Date: 1:49 Dictated By: Daniel Graham D.O. Signed By:05/08/252151 DD/ 48 TD/TT: Watch Dial Printer: us Deisy Howell DO [facility] IMAG[facility] Final Result * US OB follow up transabdominal approach [...] II, MD, PHD at 28-Apr-2025 08:26:54 AM [facility] Procedure Note Tato Amaya MD - [...] signed by TATO AMAYA II, MD, PHD [id number] 08:26:54 AM [facility] us Deisy Dante DO IMG OB US PROCEDURES Final Resul t * AMNISURE (04/25/2025 4:15 PM EDT) [facility] AMNISURE NEGATIVE NEGATIVE TBH 04/25/2025 4:15 PM EDT 04/25/2025 4:20 PM EDT Narrative [facility] - 04/25/2025 4:33 PM EDT us Deisy Dante DO LAB BLOOD ORDERABLES Final Resul t [facility] * (ABNORMAL) [facility] URINE MICROSCOPIC ONLY (04/25/2025 4:15 PM EDT) [facility] WBC 10-20(A) NONE SEEN #/HPF TBH TBH [...] [facility] - 04/25/2025 4:42 PM EDT us Deisy Dante DO [facility] Final Result [facility] * (ABNORMAL) TBH UA (CLEAN/CATCH) FOURDRINIER TENDER/MICRO IF IND. (04/25/2025 4:15 PM EDT) [facility] COLOR URINE LT. YELLOW YELLOW TBH CLARITY [...] [facility]IN[facility] - 04/25/2025 4:42 PM EDT us Deisy Dante DO [facility] Final Result [facility] * GLUCOSE 1 HOUR (03/06/2025 9:29 AM EDT) GLUCOSE 1 HOUR 116 <130 mg/dL TBH 03/06/2025 9:29 AM EDT 03/06/2025 9:32 AM EDT Narrative [facility] - 03/06/2025 10:05 AM EDT Deisy Dante DO LAB BLOOD ORDERABLES Final Resul t [facility] TB * (ABNORMAL) ALL CBC WITH AUTO [...] CLINISY[facility] - 03/06/2025 9:44 AM EDT us Deisy Hernandezo DO [facility] Final Result Performing Organization Address [facility]/ZIP Co de Phone Number [facility] * Pap Smear (12/27/2024 12:00 AM EST) Swab Cervical swab / Unknown us Kelle [facility] LAB CYTOLOGY ORDERABLES Final Re sult EXTERNAL LAB * THINPREP PAP AND HPV MRNA E6/E7 W/RFL HPV 16,18/45 (07/09/2023 3:38 PM EDT) Kelle [facility] LAB BLOOD ORDERABLES Final Resul t EXTERNAL LAB from Last 3 Months or Most Recently Relevant to Health Maintenance Insurance [facility] MEDICAID [facility] MEDICAID Care Teams Knuckle Bender Relationship Specialty Start Date End Date Shahsi Hargrove MD [address] [place] [address] PCP - General Family Medicine 05/11/23
--- OUTSIDE RECORDS SUMMARY | 2025-05-10 21:02 | XMS_ITS | Encounter Summary ---
Author Organization [facility] Address [address] [place] [address] Care Team Providers Care Cattery Operator Name Role Phone Shashi Hargrove MD Primary Care Provider [phone] Encounter Details Date Type Department Care Team ([facility] st Contact Info) Description 09/09/2014 FollowUp Telephone Encounter [facility] Labor and Delivery [address] [place], [place] [id number] Delaney Mccray RN Social History Tobacco Use [...] y.o. Call made 09/09/2014 11:59 AM To [phone] (home) [x] No answer; unable to leave [...] on filedocumented in this encounter Care Teams Cattery Operator Relationship Specialty Start Date End Date Shashi Hargrove MD [address] [place] [address] PCP - General 04/05/15 documented as of this encounter
--- OUTSIDE RECORDS SUMMARY | 2025-05-10 21:02 | XMS_ITS | Encounter Summary ---
Author Organization [facility] Address [address] [place] [address] Care Team Providers Care Phys Asst Name Role Phone Shashi Hargrove MD Primary Care Provider [phone] Encounter Details Date Type Department Care Team ([facility] Contact Info) Description 04/27/2025 Bamboo flowsheet [facility] OB [address] [place] [address] Kelle Mosley PA [address] [place] [address] Dr [place], [facility]11 Social History Tobacco Use Types [...] PM EDT Routine [facility] [address] [place] [address] Kelle Mosley, PA [address] [place] [address] Dr [place], [facility] documented as of this encounter Visit Diagnoses Not on filedocumented in this encounter Care Teams Phys Asst Relationship Specialty Start Date End Date Shashi Hargrove MD [address] [place] [phone] PCP - General Family Medicine 05/11/23 documented as of this encounter
--- OUTSIDE RECORDS SUMMARY | 2025-05-10 21:02 | XMS_ITS ---
Author Organization [facility] Address [address] [place] [address] Care Team Providers Care Contract Specialist Name Role Phone Shashi Hargrove MD Primary Care Provider [phone] [facility] ([facility]) Status:Enrolled (Active) Start date:05/02/2025 Enrollment date:05/05/2025 Enrollment reason:Identified by Health Plan Case Team Name Relationship Phone Kelle Craig LPN(Responsible Staff) Licensed [facility] Nurse [phone] Continued Care and Services Coordination
--- OUTSIDE RECORDS SUMMARY | 2025-05-10 21:02 | XMS_ITS | Encounter Summary ---
Author Organization [facility] Address [address] [place] [address] Care Team Providers Care Sign Artist Name Role Phone Shashi Hargrove MD Primary Care Provider [phone] Encounter Details Date Type Department Care Team ([facility] Contact Info) Description 2025 Bamboo flowsheet [facility] OB [address] [place] [address] Graham Howell [address] [place], [facility]11 Social History Tobacco Use Types Packs/Day [...] Description 05/17/2025 1:50 PM EDT Routine [facility] [address] [facility] [address] [place] [address] Kelle Mosley PA [address] [place], [place] [id number] documented as of this encounter Visit Diagnoses Not on filedocumented in this encounter Care Teams Sign Artist Relationship Specialty Start Date End Date Shashi Hargrove MD [address] [place] [address] PCP - General Family Medicine 05/11/23 documented as of this encounter
--- OUTSIDE RECORDS SUMMARY | 2025-05-10 21:02 | XMS_ITS | Encounter Summary ---
Author Organization [facility] Address [address] [place] [address] Care Team Providers Care Boatswain'S Mate Name Role Phone Shashi Hargrove MD Primary Care Provider [phone] Encounter Details Date Type Department Care Team ([facility] Contact Info) Description 05/05/2025 Patient Outreach [facility] [address] [place] [phone] Kelle Craig LPN [address] [place] [address] Social History Tobacco Use Types Packs/Day Years [...] PM EDT Routine [facility] [address] [place] [address] Kelle Mosley, PA [address] [place] [address] documented as of this encounter Visit Diagnoses Not on filedocumented in this encounter Care Teams Boatswain'S Mate Relationship Specialty Start Date End Date Shashi Hargrove MD [address] [place] [address] PCP - General Family Medicine 05/11/23 documented as of this encounter
--- OUTSIDE RECORDS SUMMARY | 2025-05-10 21:02 | XMS_ITS | Patient Health Record ---
Author Organization [facility] in [place] Address [address] [place] [address] Care Team Providers Care Meteorological Observer Name Role Phone Beena Ethan Primary Care Provider [phone] MELODIE HARGROVE Unavailable [phone] Allergies No Known Allergies Results Component Value Reference Range Notes CBC AUTO DIFF Reviewed date:06/09/2024 08:39:42 PM Interpretation: Performing Lab: Notes/Report: [facility] , White Blood Count 7.5 4.0-11.0 10 [...] 10 3/uL Performing Lab: see note - [facility] FREE T4 Reviewed date:06/09/2024 08:39:42 PM Interpretation: Performing Lab: Notes/Report: [facility] , Free T4 0.84 0.76-1.46 ng/dL Performing Lab: see note - [facility] GLYCOHEMOGLOBIN A1C Reviewed date:06/09/2024 08:39:42 PM Interpretation: Performing Lab: Notes/Report: [facility] , Glycohemoglobin A1C 5.4 4.5-6.2 % ADA RECOMMENDED LIMIT 4.0 - 6.0 ADA THERAPEUTIC TARGET < 7.0 ACTION SUGGESTED > 7.0 Estimated Average Glucose 108 Performing Lab: see note - [facility] PREG QUANT HCG Reviewed date:06/09/2024 08:39:42 PM Interpretation: Performing Lab: Notes/Report: [facility] , HCG Quantitative <1 5-50 0.2-1 WEEK 50-500 1-2 WEEKS 100-5,000 2-3 WEEKS 500-10,000 3-4 WEEKS 1,000-50,000 4-5 WEEKS 10,000-100,000 5-6 WEEKS 15,000-200,000 6-8 WEEKS 10,000-100,000 2-3 MONTHS Performing Lab: see note - [facility] LB TSH Reviewed date:06/09/2024 08:39:42 PM Interpretation: Performing Lab: Notes/Report: [facility] , Thyroid Stimulating Hormone 3.872 0.358-3.740 uIU/mL Performing Lab: see note - [facility] DHEA, Serum Reviewed date:06/16/2024 08:59:38 PM Interpretation: Performing Lab: Notes/Report: [facility] , DHEA, Serum 140 31-701 ng/dL This test was developed and its performance characteristics determined by [facility]. It has not been cleared or approved by the Food and Drug Administration. Performed at: [address] [id number] Linen Controller: Emanuel Varela MD, Phone: [phone] Performing Lab: see note [facility] LB Luteinizing Hormone(LH) Reviewed date:06/12/2024 04:56:24 PM Interpretation: Performing Lab: Notes/Report: [facility] , Luteinizing Hormone(LH) 9.5 . mIU/mL Adult Female Range Follicular phase 2.4 - 12.6 Ovulation phase 14.0 - 95.6 Luteal phase 1.0 - 11.4 Postmenopausal 7.7 - 58.5 Performing Lab: see note [facility] FSH Reviewed date:06/12/2024 04:56:24 PM Interpretation: Performing Lab: Notes/Report: [facility] , FSH 5.9 . mIU/mL Adult Female Range Follicular phase 3.5 - 12.5 Ovulation phase 4.7 - 21.5 Luteal phase 1.7 - 7.7 Postmenopausal 25.8 - 134.8 Performed at: [address] [id number] Linen Controller: Aguilar Machado PhD, Phone: [phone] Performing Lab: see note [facility] DHEA-Sulfate Reviewed date:06/12/2024 04:56:24 PM Interpretation: Performing Lab: Notes/Report: [facility] , DHEA-Sulfate 145.0 84.8-378.0 ug/dL Performing Lab: see note [facility] FREE T3 Reviewed date:07/04/2024 08:33:26 PM Interpretation: Performing Lab: Notes/Report: [facility] , Free T3 2.64 2.18-3.98 pg/mL Performing Lab: see note - [facility] LB T4 Reviewed date:07/04/2024 08:33:26 PM Interpretation: Performing Lab: Notes/Report: [facility] , T4 Thyroxine 6.80 4.80-13.90 ug/dL Performing Lab: see note - [facility] LB TSH Reviewed date:07/04/2024 08:33:26 PM Interpretation: Performing Lab: Notes/Report: [facility] , Thyroid Stimulating Hormone 4.094 0.358-3.740 uIU/mL Performing Lab: see note ML - [facility] LB FREE T4 Reviewed date:09/16/2024 12:18:08 PM Interpretation: Performing Lab: Notes/Report: [facility] , Free T4 0.81 0.76-1.46 ng/dL Performing Lab: see note ML - [facility] LB TSH Reviewed date:09/16/2024 12:18:08 PM Interpretation: Performing Lab: Notes/Report: [facility] , Thyroid Stimulating Hormone 2.195 0.358-3.740 uIU/mL Performing Lab: see note ML - [facility] LB CBC AUTO DIFF Reviewed date:09/28/2024 09:17:22 PM Interpretation: Performing Lab: Notes/Report: [facility] , White Blood Count 7.3 4.0-11.0 10 [...] Performing Lab: see note ML - [facility] LB PREG QUANT HCG Reviewed date:09/28/2024 09:17:22 PM Interpretation: Performing Lab: Notes/Report: [facility] , HCG Quantitative 1721 5-50 0.2-1 WEEK 50-500 1-2 WEEKS 100-5,000 2-3 WEEKS 500-10,000 3-4 WEEKS 1,000-50,000 4-5 WEEKS 10,000-100,000 5-6 WEEKS 15,000-200,000 6-8 WEEKS 10,000-100,000 2-3 MONTHS Performing Lab: see note ML - [facility] LB TSH Reviewed date:09/28/2024 09:17:22 PM Interpretation: Performing Lab: Notes/Report: [facility] , Thyroid Stimulating Hormone 2.393 0.358-3.740 uIU/mL Performing Lab: see note ML - [facility] LB US OB <= 14 weeks fetus Reviewed date:12/04/2024 10:31:56 AM Interpretation: Performing Lab: Notes/Report: Source Facility: [place] [address] Ultrasound Report Signed Patient: JOCELYN FREEMAN V MR#: [id number] : 1995 Acct:[id number] Age/Sex: 29 / F ADM Date: 12/02/24 Loc: ER Attending Dr: Ordering Physician: Echo Coyle Date of Service: 12/02/24 Procedure(s): US OB <= 14 weeks fetus Accession Number(s): [id number] cc: Melodie Hargrove M.D.; Echo Coyle [place] [address] Patient Name: JOCELYN FREEMAN MRN: [id number] date: 1995 Sex: F Assigned Patient Location: ER Current Patient Location: ER Accession/Order Number: [id number] Exam Date: 12/02/2024 12:22 Report Date: 12/02/2024 [...] Signed By: 12/02/24 1318 DD/ 14 TD/TT: Interlocker: [place] [address] Ultrasound Report Signed Patient: JOCELYN FREEMAN V MR#: [id number] : 1995 Acct:[id number] Age/Sex: 29 / F ADM Date: 12/02/24 Loc: ER Attending Dr: Ordering Physician: Echo Coyle Date of Service: 12/02/24 Procedure(s): US OB <= 14 weeks fetus Accession Number(s): [id number] cc: Melodie Hargrove M.D. ; Echo Coyle [place] [id number] Patient Name: JOCELYN FREEMAN MRN: [id number] date: 1995 Sex: F Assigned Patient Location: ER Current Patient Loca tion: ER Accession/Order Numb er: [id number] Exam Date: 12/02/2024 12:22 Report Date: 12/02/2024 [...] M.D. Signed By: 12/02/241317 DD/ 14 TD/TT: Interlocker: GLYCOHEMOGLOBIN A1C Reviewed date:12/24/2024 04:34:56 PM Interpretation: Performing Lab: Notes/Report: [facility] , Glycohemoglobin A1C 5.1 4.5-6.2 % ADA RECOMMENDED LIMIT 4.0 - 6.0 ADA THERAPEUTIC TARGET < 7.0 ACTION SUGGESTED > 7.0 Estimated Average Glucose 100 Performing Lab: see note ML - [facility] LB Type and Screen Reviewed date:12/24/2024 04:34:56 PM Interpretation: Performing Lab: Notes/Report: [facility] , Blood Type B Positive Antibody Screen NEGATIVE Urine Culture, Routine Reviewed date:12/25/2024 04:31:37 PM [...] Culture, Routine Urine Culture, Routine Performed at: [facility] Urine Culture, Routine Urine Culture, Routine [address] [place], [place] [id number] Urine Culture, Routine Urine Culture, Routine Linen Controller: Chilango Machado PhD, Phone: [phone] Urine Culture, Routine Performing Lab: see note - [facility] LB SEE REPORT - Cmm Inspector Id information not found for OBX-specific licensed sales producer legend IGP,Aptima HPV,Age Gdln Reviewed date:01/01/2025 11:26:48 AM Interpretation: Performing Lab: Notes/Report: SPATULA-ALONE CERVIX [facility] , Age Gdln ACOG Testing Note . TESTS RESULT FLAG UNITS REF RANGE LAB Clinician Provided Cytology Information Source.............Cer vix Other..............Pre gnant No. of containers..01 ThinPrep Vial Age Algo ACOG Soraida... 30-65 01 FLAG LEGEND: L-Low Normal,H-High Normal,LL-Alert Low,HH-Alert High <-Panic Low,>-Panic High,A-Abnormal,AA-Cri tical Abnormal Performed at: 01 =G [address] [address] Haily Cook MD, IGP, Aptima HPV, rfx 16/18,45 Note . TESTS RESULT FLAG UNITS REF RANGE LAB DIAGNOSIS: 02 NEGATIVE FOR INTRAEPITHELIAL LESION OR MALIGNANCY. Specimen adequacy: 02 Satisfactory for evaluation. No endocervical component is identified. Performed by: 02 Janneth Guerrero, Roll Mill Operator (ASC) . 02 Note: Note 02 The Pap [...] Low,>-Panic High,A-Abnormal,AA-Cri tical Abnormal Performed at: [address] [address] Haily Cook MD, HPV Aptima Negative Negative This nucleic acid amplification test detects fourteen high- risk HPV types (16,18,31,33,35,39,45, 51,52,56,58,59,66,68) without differentiation. Performed at: =G - [facility] [id number] Linen Controller: Haily Cook MD, Phone: [phone] Performed at: - [address] [id number] Linen Controller: Haily Cook MD, Phone: [phone] Performing Lab: see note - [facility] LB Troponin I High Sensitivity Reviewed date:02/02/2025 07:34:33 PM Interpretation: Performing Lab: Notes/Report: [facility] , Troponin I High Sensitivity <4.0 4.0-51.3 [...] INFORMATION. Performing Lab: see note ML - [facility] LB XR chest 1V Reviewed date:02/02/2025 07:34:33 PM Interpretation: Performing Lab: Notes/Report: Source Facility: [facility] [place] [address] [place] [address] XRay Report Signed Patient: JOCELYN FREEMAN V MR#: [id number] : 1995 Acct:[id number] Age/Sex: 29 / F ADM Date: 02/02/25 Loc: ER Attending Dr: Ordering Physician: Ashlee Erickson M.D. Date of Service: 02/02/25 Procedure(s): XR chest 1V Accession Number(s): [id number] cc: Melodie Hargrove M.D.; Ashlee Erickson M.D. [place] [address] Patient Name: JOCELYN FREEMAN MRN: [facility]:[id number] date: 1995 Sex: F Assigned Patient Location: ER Current Patient Location: ER Accession/Order Number: [id number] Exam Date: 02/02/2025 11:16 Report Date: 02/02/2025 [...] Tangela Ellis M.D.02/02/2025 11:18 AM Dictation Location: [employer] Electronically authenticated by: [id number] Y Date: 02/02/2025 11:18 Dictated By: Tangela Ellis M.D. Signed By: 02/02/25 1120 DD/ 1118 TD/TT: Interlocker: [place] [address] XRay Report Signed Patient: JOCELYN FREEMAN V MR#: [id number] : 1995 Acct:[id number] Age/Sex: 29 / F ADM Date: 02/02/25 Loc: ER Attending Dr: Ordering Physician: Ashlee Erickson M.D. Date of Service: 02/02/25 Procedure(s): XR chest 1V Accession Number(s): [id number] cc: Melodie Hargrove M.D. ; Ashlee Erickson M.D. [place] [address] Patient Name: JOCELYN FREEMAN MRN: [facility]:[id number] date: 1995 Sex: F Assigned Patient Location: ER Current Patient Loca tion: ER Accession/Order Numb er: [id number] Exam Date: 02/02/2025 11:16 Report Date: 02/02/2025 [...] Tangela Ellis M.D.02/02/2025 11:18 AM Dictation Location: [employer] Electronically authenticated by: [id number] Y Date: 02/02/2025 11:18 Dictated By: Tangela Ellis M.D. Signed By: 02/02/25 1120 DD/ 1118 TD/TT: Interlocker: CBC AUTO DIFF Reviewed date:03/06/2025 08:37:44 PM Interpretation: Performing Lab: Notes/Report: [facility] , White Blood Count 10.4 4.0-11.0 10 [...] 10 3/uL Performing Lab: see note - [facility] LB Glucose 1 Hour Reviewed date:03/06/2025 08:37:44 PM Interpretation: Performing Lab: Notes/Report: [facility] , Glucose 1 Hour 116 <130 mg/dL Performing Lab: see note ML - [facility] LB UA (CLEAN or CATCH) INSTRUCTOR PRIVATE or M ICRO IF IND. Reviewed date:04/26/2025 09:45:57 PM Interpretation: Performing Lab: Notes/Report: [facility] , Color Urine LT. YELLOW YELLOW Clarity Urine CLEAR CLEAR Specific [place] Urine 1.020 1.005-1.025 pH Urine 7.5 5.0-9.0 Protein Urine 30 NEG/TRACE mg/dL Glucose Urine UA NEGATIVE NEGATIVE mg/dL Bilirubin Urine NEGATIVE NEGATIVE Ketones Urine NEGATIVE NEGATIVE mg/dL Blood Urine NEGATIVE NEGATIVE Nitrite Urine NEGATIVE NEGATIVE Urobilinogen Urine 1.0 0.2-1.0 EU/dL Leukocyte Esterase Urine MODERATE NEGATIVE Urine Microscopic Indicated YES Performing Lab: see note ML - [facility] LB URINE MICROSCOPIC ONLY Reviewed date:04/26/2025 09:45:57 PM Interpretation: Performing Lab: Notes/Report: [facility] , WBC Urine 10-20 NONE SEEN #/HPF RBC Urine 2-5 0-2 #/HPF Bacteria Urine MODERATE NONE SEEN #/HPF Mucus Urine NONE SEEN NONE SEEN Squamous Epithelial Cell Urine MODERATE NONE/RARE #/LPF Crystals Seen? None Seen None Seen #/HPF Cast Seen? NONE SEEN NONE SEEN #/LPF Urine Culture Indicated YES-LC Performing Lab: see note - [facility] US OB BPP w non-stress Reviewed date:05/09/2025 08:17:35 AM Interpretation: Performing Lab: Notes/Report: Source Facility: [place] [address] [place] [address] Ultrasound Report Signed Patient: JOCELYN FREEMAN V MR#: [id number] : 1995 Acct:[id number] Age/Sex: 29 / F ADM Date: 05/08/25 Loc: US Attending Dr: Deisy oHwell D.O. Ordering Physician: Deisy Howell D.O. Date of Service: 05/08/25 Procedure(s): US OB BPP w non-stress Accession Number(s): [id number] cc: Deisy Howell D.O.; Melodie Hargrove M.D. [place] [address] Patient Name: JOCELYN FREEMAN MRN: [id number] date: 1995 Sex: F Assigned Patient Location: [facility] Current Patient Location: Accession/Order Number: [id number] Exam Date: 05/08/2025 21:48 Report Date: 05/08/2025 [...] cm consistent with polyhydramnios. Impression dictated by: Echo Graham M.D. 05/08/2025 9:49 PM Dictation Location: [place] [address] Electronically authenticated by: [id number] Y Date: 05/08/2025 21:49 Dictated By: Echo Graham D.O. Signed By: 05/08/252151 DD/ 48 TD/TT: Interlocker: [place] [address] Ultrasound Report Signed Patient: JOCELYN FREEMAN V MR#: [id number] : 1995 Acct:[id number] Age/Sex: 29 / F ADM Date: 05/08/25 Loc: US Attending Dr: Deisy Howell D.O. Ordering Physician: Deisy Howell D.O. Date of Service: 05/08/25 Procedure(s): US OB BPP w non-stress Accession Number(s): [id number] cc: Deisy Howell D.O. ; Melodie Hargrove M.D. [address] [address] Patient Name: JOCELYN FREEMAN MRN: [id number] date: 1995 Sex: F Assigned Patient Location: [facility] Current Patient Location: Accession/Order Numb er: [id number] Exam Date: 05/08/2025 21:48 Report Date: 05/08/2025 21:49 At the request of: DEISY HOWELL DO Procedure: US OB fet al BPP w non-stress Ultrasound biophysic al profile HISTORY: Polyhydramnios Adequate breat melvina movement, gross body movement, tone and amniotic fluid volum e for total score of 8 out of 8. The amniotic fluid index is 26.0cm and the 95 th percentile.. The heart rate 159 bpm. U S/US OB BPP w non-stress IMPRESSION: Adequate ultrasound biophysical profile amniotic fluid index 26.0 cm consistent with polyhydramnios. Impression dictated by: Echo Graham M.D. 05/08/2025 9:49 PM Dictation Location: [place] [address] Electronically authenticated by: [id number] Y Date: 05/08/2025 21:49 Dictated By: Cecilio Graham D.O. Signed By: 05/08/252151 DD/ 48 TD/TT: Interlocker: ECG 12 lead Reviewed date:02/02/2025 10:00:35 PM Interpretation: Performing Lab: Notes/Report: Source Facility: [place] [address] Electrocardiograph Report Signed Patient: JOCELYN FREEMAN V MR#: [id number] : 1995 Acct:[id number] Age/Sex: 29 / F ADM Date: 02/02/25 Loc: ER Attending Dr: Ordering Physician: Ashlee Erickson M.D. 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 Measurements Intervals [place] Rate: 90 P: 44 OK: 220 QRS: -8 QRSD: 68 T: 41 QT: 342 QTc: 390 Interpretive Statements 1100 Sinus rhythm 2231 First degree AV block 8102 Low QRS voltage in chest leads 9150 abnormal ECG Compared to ECG 04/17/2023 10:07:42 First degree AV block now present Electronically Signed On 02-02-2025 20:26:48 EDT by CYNDI FINK M.D. Dictated By: CYNDI FINK Signed By: 02/02/252026 DD/ 103 TD/TT: Interlocker: [place] [address] Electrocardiograph Report Signed Patient: JOCELYN FREEMAN V MR#: [id number] : 1995 Acct:[id number] Age/Sex: 29 / F ADM Date: 02/02/25 Loc: ER Attending Dr: Ordering Physician: Ashlee Erickson M.D. 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 Measurements Intervals [place] Rate: 90 P: 44 OK: 220 QRS: -8 QRSD: 68 T: 41 [...] FINK Signed By: 02/02/252026 DD/ 1039 TD/TT: Interlocker: PROF KARENA Kilpatrick ([facility]) Reviewed date:02/02/2025 07:34:33 PM Interpretation: Performing Lab: Notes/Report: [facility] , Sodium 136 136-145 mmol/L Potassium 3.7 [...] mg/dL Performing Lab: see note ML - [facility] LB CBC AUTO DIFF Reviewed date:02/02/2025 07:34:33 PM Interpretation: Performing Lab: Notes/Report: [facility] , White Blood Count 10.7 4.0-11.0 10 [...] 0.00-0.03 10 3/uL Performing Lab: see note [facility] LB Box Test Reviewed date:12/24/2024 04:34:56 PM Interpretation: Performing Lab: Notes/Report: [facility] , BOX Test Sent Out [facility] Test Reference Lab [facility] Test Date Sent 12/23/24 Performing Lab: see note [facility] HBsAg Screen Reviewed date:12/24/2024 04:34:56 PM Interpretation: Performing Lab: Notes/Report: [facility] , HBsAg Screen Negative Negative Performed at: [address] [id number] Linen Controller: Aguilar Machado PhD, Phone: [phone] Performing Lab: see note [facility] HCV Antibody RFX to Quant PC R Reviewed date:12/24/2024 04:34:56 PM Interpretation: Performing Lab: Notes/Report: [facility] , HCV Ab Non Reactive Non Reactive Interpretation: Comment . Not infected with HCV unless early or acute infection is suspected (which may be delayed in an immunocompromised individual), or other evidence exists to indicate HCV infection. Performing Lab: see note [facility] Rapid Plasma Reagin, Quant Reviewed date:12/24/2024 04:34:56 [...] utilized, such as Treponema pallidum (Syphilis) Screening [place] (244039) or Rapid Plasma Reagin (RPR) Test With Reflex to Quantitative RPR and Confirmatory Treponema pallidum Antibodies (271894). Performed at: [address] [id number] Linen Controller: Aguilar Machado PhD, Phone: [phone] Performing Lab: see note [facility] HIV Ab/p24 Ag with Reflex Reviewed date:12/24/2024 04:34:56 PM Interpretation: Performing Lab: Notes/Report: [facility] , HIV Ab/p24 Ag Screen Non Reactive Non Reactive HIV-1/HIV-2 antibodies and HIV-1 p24 antigen were NOT detected. There is no laboratory evidence of HIV infection. HIV Negative Performed at: [address] [id number] Linen Controller: Aguilar Machado PhD, Phone: [phone] Performing Lab: see note [facility] LB RUBELLA AB IGG Reviewed date:12/24/2024 04:34:56 PM Interpretation: Performing Lab: Notes/Report: [facility] , Rubella Antibodies, IgG 0.91 Immune > 0.99 index A second sample should be collected and tested no less than 2-4 weeks. Non-immune <0.90 Equivocal 0.90 - 0.99 Immune >0.99 Performed at: [address] [id number] Linen Controller: Aguilar Machado PhD, Phone: [phone] Performing Lab: see note [facility] LB DRUG SCREEN RAPID (URINE) Reviewed date:12/24/2024 04:34:56 PM Interpretation: Performing Lab: Notes/Report: [facility] , Cannabinoid Screen Urine NEGATIVE NEGATIVE Phencyclidine [...] ng/mL Performing Lab: see note ML - [facility] LB CBC AUTO DIFF Reviewed date:12/24/2024 04:34:56 PM Interpretation: Performing Lab: Notes/Report: [facility] , White Blood Count 9.6 4.0-11.0 10 [...] Performing Lab: see note ML - [facility] LB US pelvis transvaginal Reviewed date:06/28/2024 03:19:56 PM Interpretation: Performing Lab: Notes/Report: Source Facility: [facility] [place] [address] [address] Ultrasound Report Signed Patient: JOCELYN FREEMAN V MR#: [id number] : 1995 Acct:[id number] Age/Sex: 29 / F ADM Date: 06/27/24 Loc: [facility] Attending Dr: Deisy Howell D.O. Ordering Physician: Deisy Howell D.O. Date of Service: 06/27/24 Procedure(s): US pelvis transvaginal Accession Number(s): [id number] cc: Deisy Howell D.O.; Melodie Hargrove M.D. [place] [address] Patient Name: JOCELYN FREEMAN MRN: [id number] date: 1995 Sex: F Assigned Patient Location: [facility] Current Patient Location: Accession/Order Number: [id number] Exam Date: 06/27/2024 09:02 Report Date: 06/28/2024 [...] M.D. Signed By: 06/28/24808 DD/ 6 TD/TT: Interlocker: [place] [address] Ultrasound Report Signed Patient: JOCELYN FREEMAN V MR#: [id number] : 1995 Acct:[id number] Age/Sex: 29 / F ADM Date: 06/27/24 Loc: [facility] Attending Dr: Deisy Howell D.O. Ordering Physician: Deisy Howell D.O. Date of Service: 06/27/24 Procedure(s): US pel vis transvaginal Accession Number(s): [id number] cc: Deisy Howell D.O. ; Melodie Hargrove M.D. [place] [id number] Patient Name: JOCELYN FREEMAN MRN: [id number] date: 1995 Sex: F Assigned Patient Location: [facility] Current Patient Location: Accession/Order Numb er: [id number] Exam Date: 06/27/2024 09:02 Report Date: 06/28/2024 08:07 At the request of: DEISY OHWELL Procedure: US pelvis transvaginal EXAM: Pelvic ultrasound [...] M.D. Signed By: 06/28/24808 DD/ 6 TD/TT: Interlocker: Urine Culture, Routine Reviewed date:04/29/2025 05:25:31 PM Interpretation: Performing Lab: Notes/Report: [facility] , Urine Culture, Routine See Below For Report Urine Culture, Routine Urine Culture, Routine Mixed urogenital cuco Urine Culture, Routine Urine Culture, Routine Less than 10,000 colonies/mL Urine Culture, Routine Urine Culture, Routine Performed at: - [facility] [place] Urine Culture, Routine Urine Culture, Routine [address] [place], [place] [id number] Urine Culture, Routine Urine Culture, Routine Linen Controller: Chilango Machado PhD, Phone: [phone] Urine Culture, Routine Performing Lab: see note LC - [facility] LB SEE REPORT - Cmm Inspector Id information not found for OBX-specific licensed sales producer legend [employer]* Reviewed date:04/25/2025 04:36:16 PM Interpretation: Performing Lab: Notes/Report: [facility] , [employer] NEGATIVE NEGATIVE Performing Lab: see note ML - [facility] LB Reason For Referral No Information Medications Medication SIG (Take, Route, Frequency, Duration) Notes Start Date End Date Status Lgkihqea-Pnhoeatpq-Xxmirel h 3.5-58670-7.1 1 drop into affected eye Ophthalmic Four [...] Problem Status W/U Status Risk Notes Problem 27941080 Other hypoglycemia (E16.1) Active confirmed Problem Hypothyroidism (76907482) Hypothyroidism (E03.9) Active confirmed Problem Arthralgia (42211944) Arthralgia (M25.50) Active confirmed Problem Shingles (4553423) Shingles (B02.9) Active confirmed Problem Laboratory test result abnormal (307111676) Abnormal laboratory test (R89.9) Active confirmed Problem Irritable bowel (89717263) Irritable bowel (K58.9) Active confirmed Problem ADHD (F90.9) Active confirmed Vital Signs Blood pressure diastolic 70 mm Hg 12/06/2024 Height 71 in 12/06/2024 Blood pressure systolic 122 mm Hg 12/06/2024 Weight 325.2 lbs 12/06/2024 BMI 45.35 kg/m2 12/06/2024 Encounters Encounter Location Date Provider Diagnosis [facility] [address] [facility] [place] [address] 06/30/2024 Ethan Springy [facility] [address] [place] [facility] [place] [address] 07/04/2024 Ethan Hoy Hypothyroidism E03.9 [facility] [address] [place] [facility] [place] [address] 09/15/2024 Ethan Hoy Other fatigue R53.83 and Abnormal weight gain R63.5 [facility] [address] [facility] [place] [address] 12/08/2024 [facility] [facility] [address] [facility] [place] [address] 12/12/2024 Ethan Hoy Acute non-recurrent sinusitis, unspecified location J01.90 [facility] [address] [facility] [place] [address] 04/25/2025 Ethan Hargrove [facility] [address] [facility] [place] [address] 05/23/2024 MELODIE HARGROVE [facility] [address] [facility] [place] [address] 06/09/2024 Ethan Hoy Hypothyroidism, unspecified E03.9 [facility] [address] [facility] [place] [address] 06/14/2024 Ethan Hargrove [facility] [address] [facility] [place] [address] 12/06/2024 Ethan Hoy Acute non-recurrent sinusitis, unspecified location J01.90 and Nasal congestion R09.81 Assessments Encounter Date Diagnosis (ICD Code) Assessment Notes Treatment Notes Treatment Clinical Notes Section Notes 12/06/2024 Acute non-recurrent sinusitis, unspecified location (ICD-10 - J01.90) Rest and drink more liquids, especially water. You may use a humidifier or vaporizer to help keep the drainage moist. Jsao-jsu-ljzxatx Nasal Saline may help the stuffy and runny nose. Use Ibuprofen and or Tylenol as needed for fever, chills, body aches or pain. Children 5 years old should not be given idjf-zow-nonkdym cough and cold medications such as guaifenesin and dextromethorphan. If you're over age 5, you may try nkws-iyl-ewhhcmf cold medications such as guaifenesin and dextromethorphan, [...] Date [employer] [place] [employer] [address] [facility] [place] [address] [id number] Jocelyn Freeman Self - patient is the insured 8 Medical (General) History Medical History History ICD Code Zoster without complications B02.9 Surgical History Surgery Date(Month/Year) Colonoscopy & EGD 04/27/24 Left Ovary Removal Angioplasty on Toes
--- OUTSIDE RECORDS SUMMARY | 2025-05-10 21:02 | XMS_ITS | Encounter Summary ---
Author Organization [facility] Address [address] [place] [address] Care Team Providers Care Buyer Agent Name Role Phone Shashi Hargrove MD Primary Care Provider [phone] Encounter Details Date Type Department Care Team (Late Contact Info) Description 05/04/2025 Telephone [facility] [address] [place] [phone] Katie Fitzgerald MA Social History Tobacco Use [...] PM EDT Routine [facility] [address] [place] [phone] Kelle Mosley PA [address] [place] [address] Scheduled Orders Name Type Priority Associated Diagnoses Orde r Schedule US biophysical profile w non stress test Imaging Routine Polyhydramnios affecting in third trimester ([facility]) Expected: 05/04/2025 (Approximate), Expires: 11/03/2025 documented as of this encounter Visit Diagnoses Diagnosis Polyhydramnios affecting in third trimester ([facility]) documented in this encounter Care Teams Buyer Agent Relationship Specialty Start Date End Date Shashi Hargrove MD [address] [facility] [place] [address] PCP - General Family Medicine 05/11/23 documented as of this encounter
--- OUTSIDE RECORDS SUMMARY | 2025-05-10 21:02 | XMS_ITS | Encounter Summary ---
Author Organization [facility] Address [address] [place] [address] Care Team Providers Care Die Stamping Press Operator Name Role Phone Shashi Hargrove MD Primary Care Provider [phone] Encounter Details Date Type Department Care Team ([facility] Contact Info) Description 05/05/2025 Abstract [facility] [address] [place] [address] Kelle Craig LPN [address] [place] [address] Social History Tobacco Use Types Packs/Day Years [...] PM EDT Routine [facility] [address] [place] [phone] Kelle Mosley PA [address] [place] [address] documented as of this encounter Visit Diagnoses Not on filedocumented in this encounter Care Teams Die Stamping Press Operator Relationship Specialty Start Date End Date Shashi Hargrove MD [address] [facility] [place] [phone] PCP - General Family Medicine 05/11/23 documented as of this encounter
--- OUTSIDE RECORDS SUMMARY | 2025-05-10 21:02 | XMS_ITS | Encounter Summary ---
Author Organization [facility] Address [address] [place] [address] Care Team Providers Care Senior Oracle Database Developer Name Role Phone Shashi Hargrove MD Primary Care Provider [phone] Encounter Details Date Type Department Care Team ([facility] st Contact Info) Description 09/10/2014 FollowUp Telephone Encounter [facility] Delivery [address] [place], [place] [phone] Delaney Mccray RN Social History Tobacco Use [...] 19 y.o. Call made 09/10/2014 1405 To [phone] (home) [] No answer [] Message left [...] your baby had an appointment with the data migration consultant yet? scheduled this week Have you made [...] there. Arpita and Katina were especially great. Renick that Katina really went the extra mile to make sure we were comfortable. Was there anything we could have done to improve your stay? No documented in this encounter Plan of Treatment Not on file documented as of this encounter Visit Diagnoses Not on filedocumented in this encounter Care Teams Senior Oracle Database Developer Relationship Specialty Start Date End Date Shashi Hargrove MD [address] [place] [address] PCP - General 04/05/15 documented as of this encounter
--- OUTSIDE RECORDS SUMMARY | 2025-05-10 21:02 | XMS_ITS | Encounter Summary ---
Author Organization [facility] Address [address] [place] [address] Care Team Providers Care Glass Polisher Name Role Phone Shashi Hargrove MD Primary Care Provider [phone] Encounter Details Date Type Department Care Team ([facility] Contact Info) Description 05/08/2025 Clinisync Result Encounter [facility] External Department Unsolicited Deisy Howell DO [address] [place], [place] [phone] Social History Tobacco Use Types Packs/Day Years [...] Routine [facility] [address] [place] [phone] Kelle Mosley PA [address] [place] [address] documented as of this encounter Procedures Procedure Name Priority Date/Time Associated Diagnosis Comments US OB BPP W NON-STRESS 05/08/2025 9:49 PM EDT documented in this encounter Results * US OB BPP W NON-STRESS (05/08/2025 9:49 PM EDT) Anatomical Region Laterality Modality Other 05/08/2025 9:49 PM EDT Narrative 05/08/2025 9:52 [place] [address] Ultrasound Report Signed Patient: JOCELYN FREEMAN V MR#: [id number] : 1995 Acct:[id number] Age/Sex: 29 / F ADM Date: 05/08/25 Loc: US Attending Dr: Deisy Howell D.O. Ordering Physician: Deisy Howell D.O. Date of Service: 05/08/25 Procedure(s): US OB BPP w non-stress Accession Number(s): [id number] cc: Deisy Howell D.O.; Shashi Hargrove M.D. [place] [id number] Patient Name: JOCELYN FREEMAN MRN: [id number] date: 1995 Sex: F Assigned Patient Location: [facility] Current Patient Location: Accession/Order Number: [id number] Exam Date: 05/08/2025 21:48 Report Date: 05/08/2025 [...] Graham M.D. 05/08/2025 9:49 PM Dictation Location: Within3 Electronically authenticated by: [id number] Y Date: 05/08/2025 21:49 Dictated By: Daniel Graham D.O. Signed By: 05/08/252151 DD/ 48 TD/TT: Transcript Evaluator: Procedure Note Radiology, Radiologist, - 05/08/2025 [place] [address] Ultrasound Report Signed Patient: JOCELYN FREEMAN VMR#: [id number] : 1995Acct:[id number] Age/Sex: FADM Date: 05/08/25 Loc: US Attending Dr: Deisy Howell D.O. Ordering Physician: Deisy Howell D.O. Date of Service: 05/08/25 Procedure(s): US OB BPP w non-stress Accession Number(s): [id number] cc: Deisy Howell D.O.; Shashi Hargrove M.D. The [address] [address] Patient Name: JOCELYN FREEMAN MRN: [facility]:[id number] date: 1995 Sex: F Assigned Patient Location: [facility] Current Patient Location: Accession/Order Number: [id number] Exam Date: 05/08/2025 21:48 Report Date: 05/08/2025 [...] Graham M.D. 05/08/2025 9:49 PM Dictation Location: Within3 Electronically authenticated by: [id number] Y Date: :49 Dictated By: Daniel Graham D.O. Signed By:05/08/252151 DD/ 48 TD/TT: Transcript Evaluator: us Deisy Howell DO [facility] Final Result documented in this encounter Visit Diagnoses Not on filedocumented in this encounter Care Teams Glass Polisher Relationship Specialty Start Date End Date Shashi Hargrove MD [address] [place] [address] PCP - General Family Medicine 05/11/23 documented as of this encounter
--- OUTSIDE RECORDS SUMMARY | 2025-05-10 21:11 | XMS_ITS | CCD ---
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 Name Role Phone Unavailable Primary Care Provider Unavailabl e PROVIDER, UNKNOWN Attending Unavailable PROVIDER, UNKNOWN Admitting Unavailable PATIENT, SELF Referring Unavailable Nandini Pantoja Unavailable DIAB ., SALMA Consulting Unavailable DIAB ., SALMA Attending Unavailable DIAB ., SALMA Admitting Unavailable HOY ., DR SEWELL Primary Care Unavailable TEREITCAROL CHANCE Consulting Unavailable HOY ., DR SEWELL [...] Unavailable HOY ., DR SEWELL Admkaty Unavailable AVOCA, DR NANDINI Stafford Consulting Unavailable HOY ., DR SEWELL Consulting Unavailable HOY ., DR SEWELL Primary Care Unavailable HOY ., DR SEWELL Attending Unavailable HOY ., DR SEWELL Admitting Unavailable HOY ., DR SEWELL Consulting Unavailable HOY ., DR SEWELL Primary Care Unavailable HOY ., DR SEWELL Attending Unavailable HOY ., DR SEWELL Admitting Unavailable WEST, DR NANDINI Stafford Consulting Unavailable RAYSHAWNY ., DR SEWELL Primary Care Unavailable RAYSHAWNY ., DR SEWELL Attending Unavailable HOY ., [...] Physician MD Shashi Ashton Primary Care Provider [phone] MD Yonis Miranda Attending Provider Shashi Ashton Primary Care Unavailable Yonis Miranda Attending Unavailable Yonis Miranda Admitting Unavailable DANTE, GRAHAM Attending Unavailable DANTE, GRAHAM Attending Unavailable MELANY, KELLE Attending Unavailable Shashi Ashton MD Primary Care Provider [phone] Shashi Ashton MD Primary Care Provider [phone] SHASHI ASHTON Primary Care Unavailable NIC ESTEVEZ Attending Unavailable Yonis MIRANDA Attending Unavailable JANNETH SMITH Attending Unavailable LUISJANNETH GUSMAN Attending Unavailable LUISJANNETH GUSMAN Attending Unavailable Shashi Ashton Referring Unavailable LUISJANNETH GUSMAN Attending Unavailable REMY Dieter R Admitting Unavailable REMY, Dieter R Attending Unavailable REMY, Dieter R Referring Unavailable LUIS, JANNETH E Admitting Unavailable LUISJANNETH GUSMAN Attending Unavailable NILL, Yonis Mckenzie Attending Unavailable NILL, Yonis Mckenzie Attending Unavailable Shashi Ashton Referring Unavailable Shashi Ashton MD Primary Care Provider [phone] Shashi sAhton MD Primary Care Provider [phone] MELANY, KELLE Attending Unavailable MELANY, KELLE Attending Unavailable MELANY, KELLE Referring Unavailable DANTE, GRAHAM Attending Unavailable DANTE, GRAHAM Attending Unavailable MELANY, KELLE Attending Unavailable DANTE, GRAHAM Attending Unavailable MELANY, KELLE Attending Unavailable DANTE, GRAHAM Referring Unavailable MELANY, KELLE Attending Unavailable DANTE, GRAHAM Attending Unavailable Allergies Allergy Classification Reported Allergen(s) Allergy Type Date of Onset Reaction(s) Facility (1 source) [facility]; Translations: [[facility]] Propensity to adverse reactions (disorder) 0 [facility] Repository (3 sources) [facility] Drug allergy hivMitro Other (20 sources) Wound [facility]ings Drug Allergy 4 [facility] Healthcare (1 source) No Known Medication Allergies; Translations: [No Known Medication Allergies] Propensity to adverse reactions (disorder) [facility] Repository Medications Current Medications Medication Drug [...] congestion As directed 6 tablet 12/27/2024 Active cephalexin 500 mg oral capsule (6 sources) Cephalosporin Antibacterial Start: 04-27-2025 End: 05-04-2025 take 1 capsule by mouth in the morning, then take 1 capsule by mouth in the evening, then take 1 capsule by mouth at bedtime cephalexin (Keflex) 500 MG capsule Indications: Third trimester Take 1 capsule (500 mg) by mouth in the morning and 1 capsule (500 mg) in the evening and 1 capsule (500 mg) before bedtime. Do all this for 7 days. 21 capsule 04/27/2025 05/04/2025 Active Start: 01-19-2024 Keflex 500 mg Cap 500 mg = 1 cap(s), Oral, As Directed, Pt to take 1 tab the day before procedure and the 2nd tab the day of procedure once completed., # 2 cap(s), Refills(s) 0, Pharmacy: [facility]/pharmacy #[id number], 180, cm, 01/19/24 9:37:00 EST, Height/Length Dosing, 145.5, kg, 01/19/24 9:37:00 EST, Weight Dosing Start Date: 01/19/24 Status: Ordered cloNIDine hydrochloride 0.1 mg oral tablet (1 [...] Active magnesium oxide 400 mg oral tablet (13 sources) Start: take 1 tablet by mouth once daily magnesium oxide (Mag-Ox) 400 MG tablet Indications: headache in third trimester ([facility]) Take 1 tablet (400 mg) by mouth Daily 30 tablet 11 04/10/2025 Active Start: 01-04-2025 End: 02-03-2025 take 1 tablet by mouth once daily [...] 06/14/2024 07/26/2024 Discontinued methylPREDNISolone (6 sources) Corticosteroid Start: 12-27-2024 methylPREDNISolone (Medrol Dospak) 4 MG tablets Indications: Sinus congestion Day 1: 6 tablets Day 2: 5 tablets Day 3: 4 tablets Day 4: 3 tablets Day 5: 2 tablets Day 6: 1 tablet 21 tablet 12/27/2024 Active metroNIDAZOLE 500 mg oral tablet (3 sources) Nitroimidazole Antimicrobial Start: 12-30-2024 End: 01-06-2025 take 1 tablet by mouth in the [...] 0 Start Date: 09/19/21 Status: Ordered sertraline (Zolo ft) 100 MG tablet Take 50 mg by mouth Daily Active sulfamethoxazole 400 mg / trimethoprim 80 mg oral tablet (18 sources) Dihydrofolate Reductase Inhibitor Antibacterial, Sulfonamide Antimicrobial Start: 07-26-2024 Bactrim 400 mg-80 mg Tab 1 tab(s), Oral, Daily UTI prevention, 30 tab(s), Refill(s) 3, [facility]/pharmacy #[id number], 180, cm, 05/10/24 9:08:00 EDT, Height/Length Dosing, 150, kg, 05/10/24 9:08:00 EDT, Weight Dosing Start Date: 07/26/24 Status: Ordered Start: 01-19-2024 Bactrim 400 mg -80 mg Tab 1 tab(s), Oral, Daily UTI prevention, 30 tab(s), Refill(s) 3, [facility]/pharmacy #[id number], 180, cm, 01/19/24 9:37:00 EST, [...] 12/05/2024 Discontinued valACYclovir 500 mg oral tablet (19 sources) Herpesvirus Nucleoside Analog DNA Polymerase Inhibitor, Herpes Simplex Virus Nucleoside Analog DNA Polymerase Inhibitor, Herpes Zoster Virus Nucleoside Analog DNA Polymerase Inhibitor Start: 03-29-2025 End: 04-28-2025 take 1 tablet by mouth once daily valACYclovir (Valtrex) 500 MG tablet Indications: Herpes zoster with complication Take 1 tablet (500 mg) by mouth Daily 30 tablet 11 03/29/2025 04/28/2025 Active Start: 12-05-2024 End: 01-04-2025 take 1 tablet [...] bedtime. 60 tablet 11 11/21/2024 12/05/2024 Discontinued fexofenadine hydrochloride 30 mg disintegrating oral tablet (10 sources) Histamine-1 Receptor Antagonist End: 12-05-2024 take 1 tablet by mouth once daily fexofenadine ODT (Susan ODT) 30 MG disintegrating tablet Take 30 mg by mouth Daily 12/05/2024 Discontinued levonorgestrel 0.289177 mg/hr intrauterine system (8 sources) Progestin, Progestin-containi ng Intrauterine Device Start: 09-19-2021 Mirena 52 mg [...] 09-20-2021 Chronic Other aftercare (1 source) Other retirement (current) drug therapy; Translations: [[employer] MEMBER CURRENT DRUG THERAPY] Onset: 3 Episodic Other complications of (2 sources) size does not accord with dates; Translations: [Uterine size-date discrepancy, unspecified trimester] 04-12-2025 Episodic Other diseases of kidney and ureters [...] disorders (4 sources) Diarrhea 03-10-2024 Episodic Other infections; including parasitic (2 sources) History of herpes zoster; Translations: [Personal history of other infectious and parasitic diseases] 03-15-2025 Episodic Other nutritional; endocrine; and metabolic disorders [...] [18 weeks gestation of ] 01-04-2025 Episodic Residual codes; unclassified (2 sources) Gestation period, 28 weeks; Translations: [28 weeks gestation of ] 03-15-2025 Episodic Residual codes; unclassified (2 sources) Gestation period, 30 weeks; Translations: [30 weeks gestation of ] 03-29-2025 Episodic Residual codes; unclassified (2 sources) Gestation period, 32 weeks; Translations: [32 weeks gestation of ] 04-12-2025 Episodic Residual codes; unclassified (2 sources) Gestation period, 34 weeks; Translations: [34 weeks gestation of ] 04-27-2025 Episodic Residual codes; unclassified (2 sources) Gestation period, 36 weeks; Translations: [36 weeks gestation of ] 2025 Episodic Unclassified (3 sources) CONTACT W/AND (SUSP) EXPOS COVID-19; Translations: [CONTACT W/AND (SUSP) EXPOS COVID-19] Onset: 2 Unclassified (1 source) COUGH, UNSPECIFIED; Translations: [COUGH, UNSPECIFIED] Onset: 2 Urinary tract infections (15 sources) Urinary tract infection, site not specified; Translations: [Urinary tract infectious disease] Onset: 3 Episodic Viral infection (4 sources) Herpes zoster without complication; Translations: [Zoster [...] 09-30-2021 Episodic Other and unspecified benign neoplasm (20 sources) Mature cystic teratoma of left ovary; Translations: [Benign neoplasm of left ovary] Onset: 04-10-2015 05-27-2023 Episodic Other connective tissue disease (4 sources) Impingement syndrome of right shoulder; Translations: [IMPINGEMENT SYNDROME RIGHT SHOULDER] Onset: 07-10-2022 Episodic Other gastrointestinal disorders (20 sources) Pharyngeal dysphagia; Translations: [Dysphagia, pharyngeal phase] [...] Range Facility Urinalysis macro (dipstick) panel (U)on 2025 Bilirubin, UA Positive Negative - 4(70) +++ mg/dL [facility] Comment on above: small Blood, UA Negative Negative - 50 Issac/mcL [facility] Healthcare Clarity, UA Cloudy [facility] Color, UA Jolie [facility] Glucose, UA Negative Negative - 1999(110) ++++ mg/dL [facility] Interpretation and review of laboratory results Abnormal [facility] Healthca re Ketones, UA Positive Negative - 160(16) ++++ mg/dL [facility] Comment on above: 15 Leukocytes, UA Positive Negative - 500+++ Christo/mcL [facility] Comment on above: small Nitrite, UA Negative Negative - Positive [facility] pH, UA 5.5 5 - 9 [facility] Healthcar e Protein, UA Positive Negative - 1999(20) ++++ mg/dL [facility] Comment on above: 30 Spec Grav, UA 1.03 1 - 1.03 [facility] Urobilinogen, UA 0.2 0.2 - 12 mg/dL [facility] US OB BPP W NON-STRESS on 05-08-2025 [place] [address] Ultrasound Report Signed Patient: ROSALIE RODRÍGUEZ V MR#: [id number] : 1995 Acct:[id number] Age/Sex: 29 / F ADM Date: 05/08/25 Loc: US Attending Dr: Graham Howell D.O. Ordering Physician: Graham Howell D.O. Date of Service: 05/08/25 Procedure(s): US OB BPP w non-stress Accession Number(s): [id number] cc: Graham Howell D.O.; Shashi Ashton M.D. The [place] [id number] Patient Name: ROSALIE RODRÍGUEZ MRN: [id number] date: 1995 Sex: F Assigned Patient Location: [facility] Current Patient Location: Accession/Order Number: [id number] Exam Date: 05/08/2025 21:48 Report Date: 05/08/2025 21:49 At the request of: GRAHAM HOEWLL DO Procedure: US OB BPP w non-stress [...] Graham M.D. 05/08/2025 9:49 PM Dictation Location: [place] [address] Electronically authenticated by: [id number] Y Date: 05/08/2025 21:49 Dictated By: Daniel Graham D.O. Signed By: 05/08/252151 DD/ 48 TD/TT: Manager Highway: [facility] Radiology, Radiologist, MD - 05/08/2025 [place] [address] Ultrasound Report Signed Patient: ROSALIE RODRÍGUEZ V MR#: [id number] : 1995 Acct:[id number] Age/Sex: 29 / F ADM Date: 05/08/25 Loc: US Attending Dr: Graham Howell D.O. Ordering Physician: Graham Howell D.O. Date of Service: 05/08/25 Procedure(s): US OB BPP w non-stress Accession Number(s): [id number] cc: Graham Howell D.O.; Shashi Ashton M.D. The [address] [address] Patient Name: ROSALIE RODRÍGUEZ MRN: [facility]:[id number] date: 1995 Sex: F Assigned Patient Location: [facility] Current Patient Location: Accession/Order Number: [id number] Exam Date: 05/08/2025 21:48 Report Date: 05/08/2025 21:49 At the request of: GRAHAM HOWELL DO Procedure: US OB BPP w [...] Graham M.D. 05/08/2025 9:49 PM Dictation Location: [place] [address] Electronically authenticated by: [id number] Y Date: 05/08/2025 21:49 Dictated By: Daniel Graham D.O. Signed By: 05/08/252151 DD/ 48 TD/TT: Manager Highway: [facility] [employer] Radiology Study observation (narrative) [facility] US OB BPP W NON-STRESS Ordered By: Radiologist Radiology on 05-08-2025 [place] [employer] Work Phone: US OB FOLLOW UP TRANSABDOMIN AL APPROACHon 04-27-2025 US OB FOLLOW UP TRANSABDOMINAL APPROACH EXAM: US OB FOLLOW UP TRANSABDOMINAL APPROACH [...] II, MD, PHD at 28-Apr-2025 08:26:54 AM [facility] Normal Not Available Comment on above: Order Comment: US OB SCAN FOR GROWTH Estimated Date of Delivery: 06/05/25 Gestational Age as of 04/12/2025: 32w2d Urinalysis macro (dipstick) panel (U)on 04-27-2025 Bilirubin, UA Positive Negative - 4(70) +++ mg/dL [facility] Comment on above: small Blood, UA Negative Negative - 50 Issac/mcL [facility] Healthcare Clarity, UA Clear [facility] Color, UA Yellow [facility] Glucose, UA Negative Negative - 1999(110) ++++ mg/dL [facility] Interpretation and review of laboratory results Abnormal [facility] Ketones, UA Positive Negative - 160(16) ++++ mg/dL [facility] Comment on above: Trace Leukocytes, UA Trace Negative - 500+++ Christo/mcL [facility] Nitrite, UA Negative Negative - Positive [facility] pH, UA 6 5 - 9 [facility] Healthcar e Protein, UA Positive Negative - 1999(20) ++++ mg/dL [facility] Comment on above: 30mg/dL Spec Grav, UA 1.025 1 - 1.03 [facility] Urobilinogen, UA 0.2 0.2 - 12 mg/dL [facility] UA (CLEAN/CATCH) CHARGE ATTENDANT/LORENZO RO IF IND.on 04-25-2025 BILIRUBIN URINE Negative NEGATIVE [facility] BLOOD URINE Negative NEGATIVE [facility] Clarity (U) CLEAR CLEAR [facility] Color (U) LT. YELLOW YELLOW [facility] Healthcar e GLUCOSE URINE UA Negative NEGATIVE mg/dL [facility] Interpretation and review of laboratory results Abnormal [facility] Ketones Ql (U) Negative NEGATIVE mg/dL [facility] Leukocyte esterase Test strip Ql (U) MODERATE Abnormal NEGATIVE [facility] NITRITE URINE Negative NEGATIVE [facility] Health care pH (U) 7.5 [pH] 5.0 - 9.0 [facility] Protein (U) [Mass/Vol] 30 mg/dL Abnormal NEG/TRACE [facility] Healthcare SPECIFIC GRAVITY URINE 1.020 1.005 - 1.025 [facility] URINE MICROSCOPIC INDICATED YES [facility] UROBILINOGEN URINE 1.0 EU/dL 0.2 - 1.0 EU/dL [facility] Healthcar e Urinalysis macro (dipstick) panel (U)on 04-12-2025 Bilirubin, UA Negative Negative - 4(70) +++ mg/dL [facility] Blood, UA Negative Negative - 50 Issac/mcL [facility] Clarity, UA Clear [facility] Color, UA Yellow [facility] Glucose, UA Negative Negative - 1999(110) ++++ mg/dL [facility] Interpretation and review of laboratory results Abnormal [facility] Ketones, UA Positive Negative - 160(16) ++++ mg/dL [facility] Comment on above: Trace Leukocytes, UA Trace Negative - 500+++ Christo/mcL [facility] Nitrite, UA Negative Negative - Positive [facility] pH, UA 6 5 - 9 [facility] Healthcar e Protein, UA Positive Negative - 1999(20) ++++ mg/dL [facility] Comment on above: 30mg/dL Spec Grav, UA 1.01 1 - 1.03 [facility] Urobilinogen, UA 1.0 0.2 - 12 mg/dL [facility] Urinalysis macro (dipstick) panel (U)on 03-29-2025 Bilirubin, UA Positive Negative - 4(70) +++ mg/dL [facility] Comment on above: small Blood, UA Negative Negative - 50 Issac/mcL [facility] Clarity, UA Clear [facility] Healthca re Color, UA Yellow [facility] Health[facility] e Glucose, UA Negative Negative - 1999(110) ++++ mg/dL [facility] Interpretation and review of laboratory results Abnormal [facility] Health[facility] re Ketones, UA Positive Negative - 160(16) ++++ mg/dL [facility] Comment on above: Trace Leukocytes, UA Trace Negative - 500+++ Christo/mcL [facility] Nitrite, UA Negative Negative - Positive [facility] pH, UA 6.5 5 - 9 [facility] Healthcar e Protein, UA Positive Negative - 1999(20) ++++ mg/dL [facility] Comment on above: 30mg/dL Spec Grav, UA 1.03 1 - 1.03 [facility] Urobilinogen, UA 0.2 0.2 - 12 mg/dL [facility] Urinalysis macro (dipstick) panel (U)on 03-15-2025 Bilirubin, UA Positive Negative - 4(70) +++ mg/dL [facility] Comment on above: small Blood, UA Negative Negative - 50 Issac/mcL [facility] Clarity, UA Clear [facility] re Color, UA Yellow [facility] Healthcar e Glucose, UA Negative Negative - 1999(110) ++++ mg/dL [facility] Interpretation and review of laboratory results Abnormal [facility] re Ketones, UA Positive Negative - 160(16) ++++ mg/dL [facility] Comment on above: 40mg/dL Leukocytes, UA Trace Negative - 500+++ Christo/mcL [facility] Nitrite, UA Negative Negative - Positive [facility] pH, UA 5.5 5 - [address] [facility] e Protein, UA Positive Negative - 1999(20) ++++ mg/dL [facility] Comment on above: 30mg/dL Spec Grav, UA 1.03 1 - 1.03 [facility] Urobilinogen, UA 0.2 0.2 - 12 mg/dL [facility] ALL CBC WITH AUTO DIFFon BASOPHILS ABSOLUTE AUTO 0 [facility] Basophils/100 WBC (Bld) 0.3 % 0.2 - 2.0 % [facility] Eosinophils/100 WBC (Bld) 0.7 % Low 0.9 - 7.0 % [facility] Erythrocyte distribution width (RBC) [Ratio] 12.6 % 11.0 - 15.0 % [facility] Hematocrit (Bld) [Volume fraction] 35.7 % Low 36.0 - 48.0 % [facility] e Hemoglobin (Bld) [Mass/Vol] 12.1 g/dL 12.0 - 16.0 g/dL [facility] IMMATURE GRANULOCYTES ABS AUTO 0.06 High [facility] Immature granulocytes/100 WBC (Bld) 0.6 % High 0.0 - 0.5 % [facility] Interpretation and review of laboratory results Abnormal [facility] re LYMPHOCYTES ABSOLUTE AUTO 1.2 [facility] Lymphocytes/100 WBC (Bld) 11.3 % Low 20.5 - 60.0 % [facility] MCH (RBC) [Entitic mass] 30.6 pg 26.7 - 34.0 pg [facility] MCHC (RBC) [Mass/Vol] 33.9 g/dL 29.9 - 35.2 g/dL [facility] MCV (RBC) [Entitic vol] 90.2 fL 81.0 - 99.0 fL [facility] MONOCYTES ABSOLUTE AUTO 0.6 [facility] Monocytes/100 WBC (Bld) 5.4 % 1.7 - 12.0 % [facility] NEUTROPHILS ABSOLUTE AUTO 8.5 High [facility] Neutrophils/100 WBC (Bld) 81.7 % High 43.0 - 75.0 % [facility] Platelet mean volume (Bld) [Entitic vol] 8.9 fL Low 9.5 - 13.5 fL [facility]H EO # 0.1 [facility] PLT 242 [facility] RBC 3.96 Low [facility] WBC 10.4 [facility] US OB 14+ WEEKS ANATOMY SCAN on [...] II, MD, PHD at 24-Jan-2025 09:25:38 AM [facility] Normal Not Available Comment on above: Order Comment: US OB ANATOMY SINGLE W US OB CERVICAL LENGTH Estimated Date of Delivery: 06/05/25 Gestational Age as of 12/27/2024: 17w1d Urinalysis macro (dipstick) panel (U)on 01-04-2025 Bilirubin, UA Positive Negative - 4(70) +++ mg/dL [facility] Comment on above: small Blood, UA Negative Negative - 50 Issac/mcL [facility] Clarity, UA Clear [facility] [employer] re Color, UA Yellow [facility] [employer] e Glucose, UA Negative Negative - 1999(110) ++++ mg/dL [facility] Interpretation and review of laboratory results Abnormal [facility] Ketones, UA Positive Negative - 160(16) ++++ mg/dL [facility] Comment on above: trace Leukocytes, UA Positive Negative - 500+++ Christo/mcL [facility] Comment on above: small Nitrite, UA Negative Negative - Positive [facility] pH, UA 5.5 5 - 9 [facility] [employer] [facility] Protein, UA Positive Negative - 2000(20) ++++ mg/dL [facility] Comment on above: 30mg/dL Spec Grav, UA 1.03 1 - 1.03 [facility] Urobilinogen, UA 0.2 0.2 - 12 mg/dL [facility] IGP,APTIMA HPV,AGE GDLNon AGE GDLN ACOG TESTING Note . [facility] Comment on above: TESTS RESULT FLAG UN ITS REF RANGE LAB Clinician Provided Cytology Information Source.............Cervix Other.............. No. of containers..01 ThinPrep Vial Age Selvin ALARCON Soraida... 3065 FLAG LEGEND: L-Low Normal,H-High Normal,LL-Alert Low,HH-Alert High <-Panic Low,>-Panic High,A-Abnormal,AA-Critical Abnormal Performed at: 01 =G [address] [place] [address] Haily Cook MD, HPV APTIMA Negative Negative [facility] Comment on above: This nucleic acid am plification test detects fourteen high- risk HPV types (16,18,31,33,35,39,45,51,52,56,58,59,66,68) without differentiation. Performed at: =G - [facility] [id number] [place]: Haily Cook MD, Phone: [phone] Performed at: - [facility] [id number] [place]: Haily Cook MD, Phone: [phone] IGP, APTIMA HPV, RFX 16/18,45 Note . [facility] Comment on above: TESTS RESULT FLAG UN ITS REF RANGE LAB DIAGNOSIS: 02 NEGATIVE FOR INTRAEPITHELIAL LESION OR MALIGNANCY. Specimen adequacy: 02 Satisfactory for evaluation. No endocervical component is identified. Performed by: 02 Janneth Guerrero, Psychology Tech ([facility]) . 02 Note: Note 02 The Pap [...] <-Panic Low,>-Panic High,A-Abnormal,AA-Critical Abnormal Performed at: [address] [place] [address] Haily Cook MD, SPATULA-ALONE CERVIX [facility] Urinalysis macro (dipstick) panel (U)on 12-27-2024 Bilirubin, UA Negative Negative - 4(70) +++ mg/dL [facility] [employer] Blood, UA Negative Negative - 50 Issac/mcL [facility] [employer] Clarity, UA Clear [facility] [employer] re Color, UA Yellow [facility] Glucose, UA Negative Negative - 2000(110) ++++ mg/dL [facility] [employer] Interpretation and review of laboratory results Abnormal [facility] Ketones, UA Negative Negative - 160(16) ++++ mg/dL [facility] Leukocytes, UA Positive Negative - 500+++ Christo/mcL [facility] Comment on above: small Nitrite, UA Negative Negative - Positive [facility] pH, UA 6 5 - 9 [facility] Healthcar e Protein, UA Trace Negative - 1999(20) ++++ mg/dL [facility] Spec Grav, UA 1.03 1 - 1.03 [facility] Urobilinogen, UA 0.2 0.2 - 12 mg/dL [facility] BOX TESTon 12-23-2024 BOX TEST SENT OUT [employer] [facility] B[facility] UN[facility] BOX2 12/23/24 [facility] UNITY BOX [facility] [...] a no show a second time. Normal [facility] Urinalysis macro (dipstick) panel (U)on 12-05-2024 Bilirubin, UA Negative Negative - 4(70) +++ mg/dL [facility] Blood, UA Negative Negative - 50 Issac/mcL [facility] Clarity, UA Clear [facility] Healthpr re Color, UA Yellow [facility] Healthcar e Glucose, UA Negative Negative - 1999(110) ++++ mg/dL [facility] Interpretation and review of laboratory results Abnormal [facility] Healthca re Ketones, UA Negative Negative - 160(16) ++++ mg/dL [facility] Leukocytes, UA Positive Negative - 500+++ Christo/mcL [facility] Comment on above: small Nitrite, UA Negative Negative - Positive [facility] pH, UA 6.5 5 - 9 [facility] Healthcar e Protein, UA Trace Negative - 1999(20) ++++ mg/dL [facility] Spec Grav, UA 1.025 1 - 1.03 [facility] Urobilinogen, UA 0.2 0.2 - 12 mg/dL [facility] Basic Metabolic Panelon 11-23 Maryan Guidry - PINF [facility] Comment on above: These results are [...] review of laboratory results Abnormal [facility] Urea nitrogen/Creatinine [Mass ratio] 12 mg/mg - [facility] Basic Metabolic Profon 12-02 -2024 Anion gap [Moles/Vol] 11 mmol/L Normal - [facility] Comment on above: Performed By: #### B MP, LIVP, MG, CDP, LIP #### [facility] [address] [place] [address] [place] [address] [place]: Nandini Acevedo MD BUN/CRE Ratio 12 Normal - [facility] Comment on above: Performed By: #### B MP, LIVP, MG, CDP, LIP #### [facility] [address] [place] [address] [place]: Nandini Aecvedo MD Calcium [Mass/Vol] 9.3 mg/dL Normal 8.6-10.4 [facility] Comment on above: Performed By: #### B MP, LIVP, MG, CDP, LIP #### [facility] [address] [place] [address] [place]: Nandini Acevedo MD Chloride [Moles/Vol] 102 mmol/L Normal 98-107 [facility] Comment on above: Performed By: #### B MP, LIVP, MG, CDP, LIP #### [facility] [address] [place] [address] [place]: Nandini Acevedo MD CO2 [Moles/Vol] 24 mmol/L Normal 20-31 [facility] Comment on above: Performed By: #### B MP, LIVP, MG, CDP, LIP #### [facility] [address] [place] [address] [place]: Nandini Acevedo MD Creatinine [Mass/Vol] 0.5 mg/dL Normal 0.50-0.90 [facility] Comment on above: Performed By: #### B MP, LIVP, MG, CDP, LIP #### [facility] [address] [place] [address] [place]: Nandini Acevedo MD GFR/1.73 sq M.predicted among non-blacks MDRD (S/P/Bld) [Vol rate/Area] mL/min/{1.73_m2} Normal >[address] [facility] Comment on above: Result Comment: These [...] B MP, LIVP, MG, CDP, LIP #### [address] [place] [address] [place]: Nandini Acevedo MD Glucose [Mass/Vol] 88 mg/dL Normal 74-99 [facility] Comment on above: Performed By: #### B MP, LIVP, MG, CDP, LIP #### [address] [place] [address] [place]: Nandini Acevedo MD Potassium [Moles/Vol] 3.6 mmol/L Low 3.7-5.3 [facility] Comment on above: Performed By: #### B MP, LIVP, MG, CDP, LIP #### [facility] [address] [place] [address] [place]: Nandini Acevdeo MD Sodium [Moles/Vol] 137 mmol/L Normal 136-145 [facility] Comment on above: Performed By: #### B MP, LIVP, MG, CDP, LIP #### [facility] [address] [place] [address] [place] [address] [place]: Nandini Acevedo MD Urea nitrogen [Mass/Vol] 6 mg/dL Normal 6-20 [facility] Comment on above: Performed By: #### B MP, LIVP, MG, CDP, LIP #### [address] [place] [address] [place]: Nandini Acevedo MD CBC with Auto Differentialon 12-02-2024 Basophils (Bld) [#/Vol] 0.04 10*3/uL [facility] Basophils/100 WBC (Bld) 0 % 0 - 2 % [facility] Eosinophils (Bld) [#/Vol] 0.06 10*3/uL [facility] Eosinophils/100 WBC (Bld) 0 % Low 1 - 4 % [facility] Erythrocyte distribution width (RBC) [Ratio] 12.0 % 11.8 - 14.4 % [facility] Hematocrit (Bld) [Volume fraction] 38.6 % 36.3 - 47.1 % [facility] Hemoglobin (Bld) [Mass/Vol] 13.3 g/dL 11.9 - 15.1 g/dL [facility] Immature granulocytes (Bld) [#/Vol] 0.05 10*3/uL [facility] Immature granulocytes/100 WBC (Bld) 0 % 0 [facility] Interpretation and review of laboratory results Abnormal [facility] Lymphocytes/100 WBC (Bld) 9 % Low 24 - 43 % [facility] Lymphocytes/100 WBC (Bld) 1.26 % [facility] MCH (RBC) [Entitic mass] 30.6 pg 25.2 - 33.5 pg [facility] MCHC (RBC) [Mass/Vol] 34.5 g/dL 28.4 - 34.8 g/dL [facility] MCV (RBC) [Entitic vol] 88.7 fL 82.6 - 102.9 fL [facility] Monocytes/100 WBC (Bld) 6 % 3 - 12 % [facility] Monocytes/100 WBC (Bld) 0.88 % [facility] Neutrophils/100 WBC (Bld) 85 % High 36 - 65 % [facility] Nucleated RBC/100 WBC (Bld) [Ratio] 0.0 % 0.0 per 100 WBC [facility] Platelet mean volume (Bld) [Entitic vol] 9.2 fL 8.1 - 13.5 fL [facility] Platelets (Bld) [#/Vol] 267 10*3/uL [facility] RBC (Bld) [#/Vol] 4.35 10*6/uL 3.95 - 5.1 1 m/uL [facility] Segmented neutrophils/100 WBC (Bld) 12.17 % High [facility] WBC other (Bld) [#/Vol] 14.5 High [facility] CBC with Diffon 12-02-2024 Abs. Basophil 0.04 k/uL Normal 0.00-0.20 [facility] Comment on above: Performed By: #### B MP, LIVP, MG, CDP, LIP #### [facility] [address] [place], [place] [id number] [place]: Nandini Acevedo MD Abs.Imm.Granulocyte 0.05 k/uL Normal 0.00-0.[address] [facility] Comment on above: Performed By: #### B MP, LIVP, MG, CDP, LIP #### [facility] [address] [place] [address] [place]: Nandini Acevedo MD Abs.Neutrophil (Seg) 12.17 k/uL High 1.50-8.[address] [facility] Comment on above: Performed By: #### B MP, LIVP, MG, CDP, LIP #### [address] [place] [id number] [place]: Nandini Acevedo MD Basophils/100 WBC (Bld) 0 % Normal 0-[address] [facility] Comment on above: Performed By: #### B MP, LIVP, MG, CDP, LIP #### [address] [place] [id number] [place]: Nandini Acevedo MD Eosinophils (Bld) [#/Vol] 0.06 10*3/uL Normal 0.00-0.[address] [facility] Comment on above: Performed By: #### B MP, LIVP, MG, CDP, LIP #### [address] [place], [place] [address] [place]: Nandini Acevedo MD Eosinophils/100 WBC (Bld) 0 % Low 1-[address] [facility] Comment on above: Performed By: #### B MP, LIVP, MG, CDP, LIP #### [address] [place] [id number] [place]: Nandini Acevedo MD Erythrocyte distribution width (RBC) [Ratio] 12.0 % Normal 11.8-14.[address] [facility] Comment on above: Performed By: #### B MP, LIVP, MG, CDP, LIP #### [address] [place], [facility] [place]: Nandini Acevedo MD Hematocrit (Bld) [Volume fraction] 38.6 % Normal 36.3-47.[address] [facility] Comment on above: Performed By: #### B MP, LIVP, MG, CDP, LIP #### [address] [place] [address] [place]: Nandini Acevedo MD Hemoglobin (Bld) [Mass/Vol] 13.3 g/dL Normal 11.9-15.[address] [facility] Comment on above: Performed By: #### B MP, LIVP, MG, CDP, LIP #### [facility] [address] [place] [address] [place]: Nandini Acevedo MD Immature granulocytes/100 WBC (Bld) 0 % Normal [address] [facility] Comment on above: Performed By: #### B MP, LIVP, MG, CDP, LIP #### [address] [place] [address] [place]: Nandini Acevedo MD Lymphocytes (Bld) [#/Vol] 1.26 10*3/uL Normal 1.10-3.[address] [facility] Comment on above: Performed By: #### B MP, LIVP, MG, CDP, LIP #### [address] [place] [address] [place]: Nandini Acevedo MD Lymphocytes/100 WBC (Bld) 9 % Low 24-[address] [facility] Comment on above: Performed By: #### B MP, LIVP, MG, CDP, LIP #### [address] [place] [address] [place]: Nandini Acevedo MD MCH (RBC) [Entitic mass] 30.6 pg Normal 25.2-33.[address] [facility] Comment on above: Performed By: #### B MP, LIVP, MG, CDP, LIP #### [address] [place] [address] [place]: Nandini Acevedo MD MCHC (RBC) [Mass/Vol] 34.5 g/dL Normal 28.4-34.[address] [facility] Comment on above: Performed By: #### B MP, LIVP, MG, CDP, LIP #### [facility] [address] [place] [address] [place]: Nandini Acevedo MD MCV (RBC) [Entitic vol] 88.7 fL Normal 82.6-102.[address] [facility] Comment on above: Performed By: #### B MP, LIVP, MG, CDP, LIP #### [facility] [address] [place], [place] [address] [place]: Nandini Acevedo MD Monocytes (Bld) [#/Vol] 0.88 10*3/uL Normal 0.10-1.[address] [facility] Comment on above: Performed By: #### B MP, LIVP, MG, CDP, LIP #### [address] [place], [place] [id number] [place]: Nandini Acevedo MD Monocytes/100 WBC (Bld) 6 % Normal 3-[address] [facility] Comment on above: Performed By: #### B MP, LIVP, MG, CDP, LIP #### [address] [place], [facility] [place]: Nandini Acevedo MD Neutrophil (Seg) 85 % High 36-65 [facility] Comment on above: Performed By: #### B MP, LIVP, MG, CDP, LIP #### [address] [place], [facility]83 [place]: Nandini Acevedo MD NRBC Automated 0.0 per 100 WBC Normal 0.[address] [facility] Comment on above: Performed By: #### B MP, LIVP, MG, CDP, LIP #### [address] [place] [address] [place]: Nandini Acevedo MD Platelet mean volume (Bld) [Entitic vol] 9.2 fL Normal 8.1-13.[address] [facility] Comment on above: Performed By: #### B MP, LIVP, MG, CDP, LIP #### [facility] [address] [place], [place] [id number] [place]: Nandini Acevedo MD Platelets (Bld) [#/Vol] 267 10*3/uL Normal 138-[address] [facility] Comment on above: Performed By: #### B MP, LIVP, MG, CDP, LIP #### [facility] [address] [place], [place] [id number] [place]: Nandini Acevedo MD RBC (Bld) [#/Vol] 4.35 10*6/uL Normal 3.95-5.[address] [facility] Comment on above: Performed By: #### B MP, LIVP, MG, CDP, LIP #### [facility] [address] [place], [place] [id number] [place]: Nandini Acevedo MD WBC (d) [#/Vol] 14.5 10*3/uL High 3.5-11.[address] [facility] Comment on above: Performed By: #### B MP, LIVP, MG, CDP, LIP #### [facility] [address] [place] [address] [place]: Nandini Acevedo MD Hepatic Function Panelon Albumin/Globulin [Mass ratio] 1.4 {ratio} 1.0 - 2.5 [facility] ALP [Catalytic activity/Vol] 61 U/L 35 - 104 U/L [facility] Bilirubin.direct [Mass/Vol] mg/dL 0.00 - 0.30 mg/dL [facility] Bilirubin.indirect [Mass/Vol] Can not be calculated 0.0 - 1.0 mg/dL [facility] Lipaseon 12-02-2024 Lipase [Catalytic activity/Vol] 34 U/L Normal 13-60 [facility] Comment on above: Performed By: #### B MP, LIVP, MG, CDP, LIP #### [facility] [address] [place] [address] [place]: Nandini Acevedo MD Liver Profileon 12-02-2024 Albumin [Mass/Vol] 3.9 g/dL Normal 3.5-5.2 [facility] Comment on above: Performed By: #### B MP, LIVP, MG, CDP, LIP #### [address] [place], [place] [id number] [place]: Nandini Acevedo MD Albumin/Glob Ratio 1.4 Normal 1.0-2.[address] [facility] Comment on above: Performed By: #### B MP, LIVP, MG, CDP, LIP #### [address] [place], [place] [id number] [place]: Nandini Acevedo MD Alkaline Phos 61 U/L Normal 35-104 [facility] Comment on above: Performed By: #### B MP, LIVP, MG, CDP, LIP #### [address] [place], [place] [id number] [place]: Nandini Acevedo MD ALT [Catalytic activity/Vol] 14 U/L Normal 10-35 [facility] Comment on above: Performed By: #### B MP, LIVP, MG, CDP, LIP #### [address] [place], [place] [id number] [place]: Nandini Acevedo MD AST [Catalytic activity/Vol] 14 U/L Normal 10-35 [facility] Comment on above: Performed By: #### B MP, LIVP, MG, CDP, LIP #### [address] [place] [address] [place]: Nandini Acevedo MD Bilirubin [Mass/Vol] mg/dL Normal 0.00-1.20 [facility] Comment on above: Performed By: #### B MP, LIVP, MG, CDP, LIP #### [address] [place] [address] [place]: Nandini Acevedo MD Bilirubin, Indirect Can not be calculated Normal 0.0-1 [address] [facility] Comment on above: Performed By: #### B MP, LIVP, MG, CDP, LIP #### [facility] [address] [place] [address] [place]: Nandini Acevedo MD Bilirubin.indirect [Mass/Vol] mg/dL Normal 0.00-0.[address] [facility] Comment on above: Performed By: #### B MP, LIVP, MG, CDP, LIP #### [facility] [address] [place] [address] [place]: Nandini Acevedo MD Protein [Mass/Vol] 6.7 g/dL Normal 6.6-8.7 [facility] Comment on above: Performed By: #### B MP, LIVP, MG, CDP, LIP #### [facility] [address] [place] [address] [place] [address] [place]: Nandini Acevedo MD Magnesiumon Magnesium [Mass/Vol] 1.7 mg/dL Normal 1.6-2.6 [facility] Comment on above: Performed By: #### B MP, LIVP, MG, CDP, LIP #### [address] [place] [address] [place]: Nandini Acevedo MD Microscopic Urinalysison Amorphous sediment LM Ql (Urine sed) 2+ Abnormal None [facility] Epithelial cells LM.HPF (Urine sed) [#/Area] 0 TO 2 [facility] Interpretation and review of laboratory results Abnormal [facility] RBC LM.HPF (Urine sed) [#/Area] 0 TO 2 [facility] WBC LM.HPF (Urine sed) [#/Area] 2 TO 5 [facility] No Panel Informationon 12-02 [facility] US OB LESS THAN 14 WEEKS [...] seen given later gestation Embryo(<11wk) /Fetus(>=11wk): Single [place] R[place] Length: 7.9 cm Rate of Cardiac [...] MD 12/02/24 Final result Normal [facility] Intrauterine with embryonic/ cardiac activity. Estimated gestational age by current ultrasound is 14 weeks 0 days. [facility] EXAMINATION: FIRST TRIMESTER OBSTETRIC ULTRASOUND 12/02/2024 [...] seen given later gestation Embryo(<11wk) /Fetus(>=11wk): Single [place] Length: 7.9 cm Rate of Cardiac Activity 160 Right ovary: 3.2 x 2.2 x 2.3 cm Left ovary: Surgically absent Free fluid: Measurements: Estimated gestational age by current ultrasound: 14 weeks 0 days Estimated gestational age by LMP/prior ultrasound: 13 weeks 4 days Estimated Due Date: 06/02/2025 by today's ultrasound [facility] Keyur Agustin MD - 12/02/2024 EXAMINATION: FIRST TRIMESTER OBSTETRIC [...] seen given later gestation Embryo(<11wk) /Fetus(>=11wk): Single [place] Length: 7.9 cm Rate of Cardiac [...] current ultrasound is 14 weeks 0 days. [facility] Radiology Study observation (narrative) [facility] US OB LESS THAN 14 WEEKS SIN GLE OR FIRST GESTATION W DOPPLEROrdered By: Keyur Benavides on 12-02-2024 [facility] Work Phone: Urinalysison 12-02-2024 Bilirubin Ql (U) Negative NEGATIVE [facility] Clarity (U) Clear Clear [facility] [employer] [facility] Color (U) Yellow Yellow [facility] Glucose Test strip (U) [Mass/Vol] Negative NEGATIVE mg/dL [employer] [facility] [employer] Hemoglobin Auto test strip Ql (U) Negative NEGATIVE [facility] Interpretation and review of laboratory results Abnormal [facility] Ketones (U) [Mass/Vol] Negative NEGATIVE mg/dL [facility] Leukocyte esterase Test strip Ql (U) MODERATE Abnormal NEGATIVE [facility] N[facility] Ql (U) Negative NEGATIVE [facility] [employer] pH (U) 7.5 [pH] 5.0 - 9.0 [facility] Protein (U) [Mass/Vol] Negative NEGATIVE mg/dL [facility] Specific gravity (U) [Rel density] 1.025 High 1.010 - 1.020 [facility] Urobilinogen Qn (U) Normal 0.0 - 1. 0 EU/dL [facility] Urinalysis, Routineon 2024 Bilirubin, SemiQt,Ur Negative Normal NEG [facility] Comment on above: Performed By: #### U A, UMICAO #### [facility] [address] [place], [place] [id number] [place]: Nandini Acevedo MD Blood, Urine Negative Normal NEG [facility] Comment on above: Performed By: #### U A, UMICAO #### [facility] [address] [place] [address] [place] [place], [place] [id number] [place]: Nandini Acevedo MD Clarity (U) Clear Normal CLEAR [facility] Comment on above: Performed By: #### U A, UMICAO #### [facility] [address] [place] [address] [place], [place] [id number] [place]: Nandini Acevedo MD Color (U) Yellow Normal YEL [facility] Comment on above: Performed By: #### U A, UMICAO #### [facility] [address] [place], [place] [id number] [place]: Nandini Acevedo MD Glucose Ql (U) Negative Normal NEG [facility] in Hospital Comment on above: Performed By: #### U A, UMICAO #### [facility] [address] [place] [address] [place]: Nandini Acevedo MD Ketones Ql (U) Negative Normal NEG [facility] Comment on above: Performed By: #### U A, UMICAO #### [facility] [address] [place] [address] [place] [address] [place]: Nandini Acevedo MD Leukocyte esterase Test strip Ql (U) MODERATE Abnormal NEG [facility] Comment on above: Performed By: #### U A, UMICAO #### [facility] [address] [place] [address] [place], [place] [id number] [place]: Nandini Acevedo MD Nitrite,Ur Negative Normal NEG [facility] Comment on above: Performed By: #### U A, UMICAO #### [facility] [address] [place] [address] [place] [address] [place]: Nandini Acevedo MD PH,Ur 7.5 Normal 5.0-9.[address] [facility] Comment on above: Performed By: #### U A, UMICAO #### [address] [place] [address] [place]: Nandini Acevedo MD Protein Ql (U) Negative Normal NEG [facility] Comment on above: Performed By: #### U A, UMICAO #### [address] [place], [place] [id number] [place]: Nandini Acevedo MD Spec. Tunas,Ur 1.025 High 1.010-1.020 [facility] Comment on above: Performed By: #### U A, UMICAO #### [address] [place], [place] [address]83 [place]: Nandini Acevedo MD Urobilinogen,Ur Normal Normal 0.0-1.0 [facility] Comment on above: Performed By: #### U A, UMICAO #### [address] [place], [place] [address] [place]: Nandini Acevedo MD Urinalysis,Microon 5 Amorphous sediment LM Ql (Urine sed) 2+ Abnormal NONE [facility] Comment on above: Performed By: #### U A, UMICAO #### [facility] [address] [place] [address] [place]: Nandini Acevedo MD Epithelial cells LM Ql (Urine sed) 0 TO 2 Normal 0-[address] [facility] Comment on above: Performed By: #### U A, UMICAO #### [facility] [address] [place] [address] [place]: Nandini Acevedo MD Urine RBC's 0 TO 2 Normal 0-[address] [facility] Comment on above: Performed By: #### U A, UMICAO #### [facility] [address] [place] [address] [place]: Nandini Acevedo MD Urine WBC's 2 TO 5 Normal 0-[address] [facility] Comment on above: Performed By: #### U A, UMICAO #### [facility] [address] [place] [address] [place]: Nandini Acevedo MD HCG ( test) Ql (U)o n 11-03-2024 Interpretation and review of laboratory results Abnormal [facility] re Preg Test, Ur Positive Negative [facility] Urinalysis macro (dipstick) panel (U)on 11-03-2024 Bilirubin, UA Negative Negative - 4(70) +++ mg/dL [facility] Blood, UA Negative Negative - 50 Issac/mcL [facility] Clarity, UA Clear [facility] Healthca re Color, UA Yellow [facility] Glucose, UA Negative Negative - 1999(110) ++++ mg/dL [facility] Interpretation and review of laboratory results Normal [facility] re Ketones, UA Negative Negative - 160(16) ++++ mg/dL [facility] Leukocytes, UA Negative Negative - 500+++ Christo/mcL [facility] Nitrite, UA Negative Negative - Positive [facility] pH, UA 5 5 - 9 [facility] Healthcar e Protein, UA Negative Negative - 1999(20) ++++ mg/dL [facility] Spec Grav, UA 1.03 1 - 1.03 [facility] Urobilinogen, UA 1.0 0.2 - 12 mg/dL [facility] Health[facility] ALL CBC WITH AUTO DIFFon BASOPHILS ABSOLUTE AUTO 0 [facility] Basophils/100 WBC (Bld) 0.5 % 0.2 - 2.0 % [facility] Eosinophils/100 WBC (Bld) 1.9 % 0.9 - 7.0 % [facility] Erythrocyte distribution width (RBC) [Ratio] 12.1 % 11.0 - 15.0 % [facility] Hematocrit (Bld) [Volume fraction] 40.1 % 36.0 - 48.0 % [facility] Health[facility] Hemoglobin (Bld) [Mass/Vol] 13.5 g/dL 12.0 - 16.0 g/dL [facility] IMMATURE GRANULOCYTES ABS AUTO 0.03 [facility] Immature granulocytes/100 WBC (Bld) 0.4 % 0.0 - 0.5 % [facility] Interpretation and review of laboratory results Abnormal [facility] re LYMPHOCYTES ABSOLUTE AUTO 1.7 [facility] Lymphocytes/100 WBC (Bld) 23.9 % 20.5 - 60.0 % [facility] MCH (RBC) [Entitic mass] 30.3 pg 26.7 - 34.0 pg [facility] MCHC (RBC) [Mass/Vol] 33.7 g/dL 29.9 - 35.2 g/dL [facility] MCV (RBC) [Entitic vol] 90.1 fL 81.0 - 99.0 fL [facility] MONOCYTES ABSOLUTE AUTO 0.5 [facility] Monocytes/100 WBC (Bld) 7.4 % 1.7 - 12.0 % [facility] NEUTROPHILS ABSOLUTE AUTO 4.8 [facility] Neutrophils/100 WBC (Bld) 65.9 % 43.0 - 75.0 % [facility] Platelet mean volume (Bld) [Entitic vol] 8.7 fL Low 9.5 - 13.5 fL [facility] TBH EO # 0.1 [facility] TBH PLT 299 NOM [facility] RBC 4.45 [facility] TBH WBC 7.3 [facility] Screenson 05-11-2024 Screens [id number]# 1.[facility] Ambulatory Visit Summaryon 0 2024 Ambulatory [...] What to do next Scheduled Follow-Up Appointments Thursday. 2023 3:00 PM EDT With: RUTH CLARK, Yonis Mckenzie Where: [facility] General [facility] Patient Educationon 05-10-20 24 Patient Education [...] Follow these instructions at home: ? Take owqd-wwa-wqsmjwn and prescription medicines as told by your [...] worse. (more content not included)... Normal [facility] Urology Office/Clinic Noteon 2024 Urology Office/Clinic [...] back normal. 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 Also had a difficult PO recovery and had a CT scan done in the ER which indicated her Mirena is not in the correct spot. States she plans to f/u with her social research assistant. We did speak about how some pts [...] Bactrim SS 1 tab prn -F/u with [facility] to discuss IUD/different form of control -F/u [...] Contact Information LUIS STEPHENS, JANNETH Barreto, URL [address] [place] [address] [phone] Additional Instructions: 6 mos (no labs) Patient [...] virus vaccine, (more content not included)... Normal [facility] Comment on above: Result Comment: Elec tronically Signed By: JANNETH SMITH PA-C\.br\Date and Time Signed: 05/10/24 09:55 EDT\.br\Electronically Co-Signed By: Ondina Parra\.br\Date and Time Co-Signed: 05/10/24 09:51 EDT Outside Colonoscopyon 2023 Outside Colonoscopy [id number]#1. [facility] Lab Reportson 04-28-2024 Lab Reports [id number]#1 .[facility] Consent for Procedure/Surger yon 03-09-2024 Consent for Procedure/Surgery [id number]#1 .[facility] Ambulatory Visit Summaryon 0 03-08-2024 Ambulatory Visit Summary ROSALIE RODRÍGUEZ V :1995 Visit Date:03/08/2024 Ambulatory Visit Instructions Your Care Team Attending Physician - RUTH CLARK, Yonis Mckenzie Primary Care Physician - Poli CLARK, Shashi Referring Physician - Shashi Ashton MD This [...] Follow-Up Appointments Thursday 8:20 AM EDT With: LUIS STEPHENS, JANNETH Barreto Where: [facility] Physician Referralon 024 Physician Referral [id number]#1 .[facility] Physician Referralon 024 Physician Referral [id number]#1 .[facility] Consent for Procedure/Surger yon 02-09-2024 Consent for Procedure/Surgery [id number]# 1.[facility] Consent for Treatmenton 01-21 Consent for Treatment [id number]#1 .[facility] IntraOperative Documentson 0 02-09-2024 IntraOperative Documents [id number]# 1.[facility] Main OR Intraoperative Recor don 02-09-2024 Main OR Intraoperative Record IntraOp Document Type FTURO Summary Primary Physician: Dieter REMY MD Finalized Date/Time: 02/09/24 08:32:09 Pt. Name: ROSALIE RODRÍGUEZ/Sex: 1995 Female Med Rec #: [id number] Physician: Dieter REMY MD Financial #: [id number] Pt. Type: O Room/Bed: / Admit/Disch: 02/09/24 07:32:51 - Institution: Case Times FTURO Entry 1 Patient Times In Room 02/09/24 08:10:00 Out Room 02/09/24 08:38:00 Procedure Times Start 02/09/24 08:24:00 Stop 02/09/24 08:33:00 Anesthesia Times Last Modified By: GIUSEPPE Rushing RN, Ruthann 02/09/24 08:31:26 Case Attendance FTURO Entry 1 Entry 2 Entry 3 Case Attendee SANDRITA CLARK, Dieter Rushing RN, RAYMONDOR, Maryam GRIGSBY, Bianca Quesada Role Performed Surgeon - Primary Seed Packer - Primary Scrub - Primary Time In 02/09/24 08:10:00 02/09/24 08:10:00 02/09/24 08:10:00 Time Out 02/09/24 08:38:00 02/09/24 08:38:00 02/09/24 08:38:00 Procedure CYSTOSCOPY LOCAL(.) CYSTOSCOPY LOCAL(.) CYSTOSCOPY LOCAL(.) Comments Last Modified By: RAYMOND Rushing RNOR, GIUSEPPE Rushing RN, GIUSEPPE Rushing RN, Ruthann 02/09/24 Sangita 02/09/24 Sangita 02/09/24 08:31:27 08:31:27 [...] Out Dieter REMY MD, Verified (If Participants GIUSEPPE Rushing RN, Applicable) Maryam Quesada CST, Kimberly A Time [...] Rushing RN, Ruthann 02/09/24 08:32 Normal [facility] Main OR Preoperative Recordo n 02-09-2024 Main OR Preoperative Record Holding Area Document Type FTURO Summary Primary Physician: Dieter REMY MD Finalized Date/Time: 02/09/24 08:08:52 Pt. Name: ROSALIE RODRÍGUEZ/Sex: 1995 Female Med Rec #: [id number] Physician: Dieter REMY MD Financial #: [id number] Pt. Type: O Room/Bed: / Admit/Disch: 02/09/24 [...] Rushing RN, Ruthann 02/09/24 08:08 Normal [facility] Operative Reporton Operative Report Patient: ASHLEE [...] cause of her recurrent urinary tract infections.. [facility] Comment on above: Result Comment: Elec tronically Signed By: SANDRITA CLARK, Dieter Douglas.br\Date and Time Signed: 02/09/24 08:36 EDT Outpatient Surgery Discharge Instructionon 02-09-2024 Outpatient Surgery Discharge Instruction [id number]# 1.[facility] RAD - MISCon 01-29-2024 RAD - MISC [id number]#1 .[facility] C Urineon 01-21-2024 Bacteria identified [...] Locations R1: [facility], [address] [place] [address], [facility] , , [facility] Comment on above: Performed By: #### [id number] ####[facility] [address] [place] [address] RAD - Ultrasound Reporton RAD - Ultrasound Report [id number]# 1.[facility] Screenson 01-21-2024 Screens [id number]#1 .[facility] Ambulatory Visit Summaryon 0 01-19-2024 [...] JANNETH SMITH PA-C, URL When: Where: [address] [place] [address] Medications What How Much When Instructions New sulfamethoxazole-trim ethoprim (Bactrim 400 mg-80 mg Tab) 1 Tablets By Mouth Every day as needed for UTI prevention Refills: 3 Pickup at [facility]/pharmacy #[id number] Unchanged guanfacine (guanfacine 3 mg [...] physician if questions or concerns Pharmacy Information [facility]/pharmacy #[id number]: [address], [place] [phone] Allergies No Known Allergies No Known Medication [...] Trouble urinati (more content not included)... Normal [facility] Patient Educationon 01-19-20 Patient Education Obstetrics [...] this condition includes: ? Antibiotic medicine. ? Tgnc-dem-maflrrz medicines to treat discomfort. ? Drinking enough [...] these instructions at home: Medicines ? Take nmbq-qpe-ytkurrs and prescription medicines only as told by [...] Revie (more content not included)... Normal [facility] BNPon 04-17-2023 Natriuretic peptide B (Bld) [Mass/Vol] 246.0 pg/mL Normal <=450.0 [facility] Comment on above: Performed By: #### I NSULIN #### [facility] [address] [address] [address] Saray Souza CARDIAC NELI ADMITon 023 CK [Catalytic activity/Vol] 47 U/L Normal 26-192 [facility] Comment on above: Performed By: #### I NSULIN #### [facility] [address] [address] [address] Saray Souza CK.MB [Mass/Vol] 1.02 ng/mL Normal <=3.60 [facility] Comment on above: Performed By: #### I NSULIN #### [facility] [address] [address] [address] Saray Souza HSTROP 4.5 pg/mL Normal 4.0-51.3 [facility] Comment on above: Result Comment: CUT- OFF POINTS HAVE BEEN ESTABLISHED BASED ON THE FOURTH UNIVERSAL DEFINITIONS OF MYOCARDIAL INFARCTION. THE UPPER REFERENCE LIMIT (URL) OF TROPONIN, DEFINED THE 99TH PERCENTILE OF cTnI DISTRIBUTION IN A REFERENCE POPULATION, HAS BEEN CONFIRMED THE DECISION THRESHOLD FOR KS DIAGNOSIS. Performed By: #### I CURLYULIN #### [facility] [address] [place] [address] Dr. Saray Souza FRANKLIN 36 ng/mL Normal 9-82 [facility] Comment on above: Performed By: #### I CURLYULIN #### [facility] [address] [place] [address] Dr. Saray Souza CBC W MANUAL DIFFon 04-17-20 ATYPICAL LYMPH # Normal [facility] Comment on above: Performed By: #### C EDGARDO #### [facility] [address] [place] [address] Dr. Saray Souza ATYPICAL LYMPH % Normal [facility] Comment on above: Performed By: #### C EDGARDO #### [facility] [address] [place] [address] Dr. Saray Souza BAND # 0.3 103/ul Normal 0.0-0.3 [facility] Comment on above: Performed By: #### C EDGARDO #### [facility] [address] [place] [address] Dr. Saray Souza BAND % 1 % Normal 0-5 [facility] Comment on above: Performed By: #### C EDGARDO #### [facility] [address] [place] [address] Dr. Saray Souza BASOM # 0.00 103/ul Normal 0.00-0.10 [facility] Comment on above: Performed By: #### C EDGARDO #### [facility] [address] [place] [address] Dr. Saray Souza BASOM % 0.0 % Critically low 0.2-2.0 [facility] Comment on above: Performed By: #### C EDGARDO #### [facility] [address] [place] [address] Dr. Saray Souza BLAST # Normal [facility] Comment on above: Performed By: #### C EDGARDO #### [facility] [address] [place] [address] Dr. Saray Souza BLAST % Normal [facility] Comment on above: Performed By: #### C EDGARDO #### [facility] [address] [place] [address] Dr. Saray Souza CORRECTED WBC Normal 4.0-11.0 [facility] Comment on above: Performed By: #### C EDGARDO #### [facility] [address] [place] [address] Dr. Saray Souza EOS # 0.00 103/ul Normal 0.00-0.70 [facility] Comment on above: Performed By: #### C EDGARDO #### [facility] [address] [place] [address] Dr. Saray Souza EOS% 0.0 % Critically low 0.9-7.0 [facility] Comment on above: Performed By: #### C EDGARDO #### [facility] [address] [place] [address] Dr. Saray Souza HCT 43.6 % Normal 36.0-48.0 [facility] Comment on above: Performed By: #### C EDGARDO #### [facility] [address] [place] [address] Dr. Saray Souza HGB 14.7 g/dl Normal 12.0-16.0 [facility] Comment on above: Performed By: #### C EDGARDO #### [facility] [address] [place] [address] Dr. Saray Souza LYMPHM # 1.55 103/ul Normal 1.20-3.80 [facility] Comment on above: Performed By: #### C EDGARDO #### [facility] [address] [place] [address] Dr. Saray Souza LYMPHM% 6.0 % Critically low 20.5-60.0 [facility] Comment on above: Performed By: #### C EDGARDO #### [facility] [address] [place] [address] Dr. Saray Souza MCH 30.3 pg Normal 26.7-34.0 [facility] Comment on above: Performed By: #### C BCMAN #### [facility] [address] [place] [address] Dr. Saray Souza MCHC 33.7 g/dl Normal 29.9-35.2 [facility] Comment on above: Performed By: #### C BCMAN #### [facility] [address] [address] [address] Saray Souza MCV 89.9 fL Normal 81.0-99.0 [facility] Comment on above: Performed By: #### C BCMAN #### [facility] [address] [place] [address] Dr. Saray Souza METAMYELOCYTE # Normal [facility] Comment on above: Performed By: #### C EDGARDO #### [facility] [address] [place] [address] Dr. Saray Souza METAMYELOCYTE % Normal [facility] Comment on above: Performed By: #### C EDGARDO #### [facility] [address] [place] [address] Dr. Saray Souza MONOM# 2.06 103/ul Critically high 0.30-0.80 [facility] Comment on above: Performed By: #### C BCMAN #### [facility] [address] [place] [address] Dr. Saray Souza MONOM% 8.0 % Normal 1.7-12.0 [facility] Comment on above: Performed By: #### C BCPRESLEY #### [facility] [address] [place] [address] Dr. Saray Souza MPV 8.8 fL Critically low 9.5-13.5 [facility] Comment on above: Performed By: #### C BCMAN #### [facility] [address] [place] [address] Dr. Saray Souza MYELOCYTE # Normal [facility] Comment on above: Performed By: #### C BCPRESLEY #### [facility] [address] [place] [address] Dr. Saray Souza MYELOCYTE % Normal [facility] Comment on above: Performed By: #### C EDGARDO #### [facility] [address] [address] [address] Saray Souza NRBC Normal [facility] Comment on above: Performed By: #### C EDGARDO #### [facility] [address] [address] [address] Saray Souza PLT 397 103/ul Normal 150-450 [facility] Comment on above: Performed By: #### C EDGARDO #### [facility] [address] [address] [address] Saray Souza RBC 4.85 106/ul Normal 4.20-5.40 [facility] Comment on above: Performed By: #### C EDGARDO #### [facility] [address] [place] [address] Dr. Saray Souza RDW 12.0 % Normal 11.0-15.0 [facility] Comment on above: Performed By: #### Sweetie REYNOSO #### [facility] [address] [place] [address] Dr. Saray Souza SEG # 21.93 103/ul Critically high 1.40-6.50 [facility] Comment on above: Performed By: #### C EDGARDO #### [facility] [address] [place] [address] Dr. Saray Souza SEG % 85.0 % Critically high 43.0-75.0 [facility] Comment on above: Performed By: #### C EDGARDO #### [facility] [address] [place] [address] Dr. Saray Souza WBC 25.8 103/ul Critically high 4.0-11.0 [facility] Comment on above: Performed By: #### C EDGARDO #### [facility] [address] [place] [address] Dr. Saray Souza CULTURE URINEon 04-17-2023 CULTURE URINE Culture Observations : LORENZO TO FOLLOW. Isolate 1 Enterococcus faecalis 20,000 cfu/mL of Normal [facility] Comment on above: Performed By: #### C BC #### [facility] [address] [place] [address] Dr. Saray Souza ER URINE PROFILEon 3 Bilirubin Ql (U) Negative Normal NEGATIVE [facility] Comment on above: Performed By: #### C BC #### [facility] [address] [place] [address] Dr. Saray Souza Clarity (U) CLEAR Normal CLEAR [facility] Comment on above: Performed By: #### C BC #### [facility] [address] [place] [address] Dr. Saray Souza Color (U) LT. YELLOW Normal YELLOW [facility] Comment on above: Performed By: #### C BC #### [facility] [address] [place] [address] Dr. Saray JHA A micrscopic examination will be performed if indicated. Normal [facility] Comment on above: Performed By: #### C BC #### [facility] [address] [place] [address] Dr. Saray Souza Glucose Ql (U) Negative Normal NEGATIVE [facility] Comment on above: Performed By: #### C BC #### [facility] [address] [place] [address] Dr. Saray Souza Hemoglobin Ql (U) Negative Normal NEGATIVE [facility] Comment on above: Performed By: #### C BC #### [facility] [address] [place] [address] Dr. Saray Souza Ketones Ql (U) Negative Normal NEGATIVE [facility] Comment on above: Performed By: #### C BC #### [facility] [address] [place] [address] Dr. Saray Souza LEUKOCYTES SMALL Abnormal NEGATIVE [facility] Comment on above: Performed By: #### C BC #### [facility] [address] [place] [address] Dr. Saray Souza Nitrite Ql (U) Negative Normal NEGATIVE [facility] Comment on above: Performed By: #### C BC #### [facility] [address] [place] [address] Dr. Saray Souza pH (U) 6.5 [pH] Normal 5-9 [facility] Comment on above: Performed By: #### C BC #### [facility] [address] [place] [address] Dr. Saray Souza SPEC GRAVITY 1.025 Normal 1.005-<=1.025 [facility] Comment on above: Performed By: #### C BC #### [facility] [address] [place] [address] Dr. Saray Souza UA PROTEIN Negative Normal NEGATIVE/ TRACE [facility] Comment on above: Performed By: #### C BC #### [facility] [address] [place] [address] Dr. Saray Souza UR MICRO IND INDICATED Normal [facility] Comment on above: Performed By: #### C BC #### [facility] [address] [place] [address] Dr. Saray Souza Urobilinogen Qn (U) 0.2 {Janine'U}/dL Normal 0.2 - 1. 0 [facility] Comment on above: Performed By: #### C BC #### [facility] [address] [place] [address] Dr. Saray Souza URon 04-17-2023 , QUAL Negative Normal NEGATIVE [facility] Comment on above: Performed By: #### C BC #### [facility] [address] [place] [address] Dr. Saray Souza PROF 14(COMP METB)on 023 Albumin [Mass/Vol] 3.0 g/dL Critically low 3.4-5.0 [facility] Comment on above: Performed By: #### I NSULIN #### [facility] [address] [place] [address] Dr. Saray Souza Albumin/Globulin [Mass ratio] 0.9 {ratio} Normal [facility] Comment on above: Performed By: #### I NSULIN #### [facility] [address] [place] [address] Dr. Saray Souza ALP [Catalytic activity/Vol] 54 U/L Normal 46-116 [facility] Comment on above: Performed By: #### I NSULIN #### [facility] [address] [address] [address] Saray Souza ALT [Catalytic activity/Vol] 27 U/L Normal 14-59 [facility] Comment on above: Performed By: #### I NSULIN #### [facility] [address] [address] [address] Saray Souza Anion gap [Moles/Vol] 12.9 mmol/L Normal [facility] Comment on above: Performed By: #### I NSULIN #### [facility] [address] [address] [address] Saray Souza AST [Catalytic activity/Vol] 12 U/L Critically low 15-37 [facility] Comment on above: Performed By: #### I NSULIN #### [facility] [address] [address] [address] Saray Souza Bilirubin [Mass/Vol] 0.3 mg/dL Normal 0.2-1.0 [facility] Comment on above: Performed By: #### I NSULIN #### [facility] [address] [address] [address] Saray Souza Calcium [Mass/Vol] 8.1 mg/dL Critically low 8.5-10.1 [facility] Comment on above: Performed By: #### I NSULIN #### [facility] [address] [place] [address] Dr. Saray Souza Chloride [Moles/Vol] 102 mmol/L Normal 98-107 [facility] Comment on above: Performed By: #### I NSULIN #### [facility] [address] [address] [address] Saray Souza CO2 [Moles/Vol] 26.2 mmol/L Normal 21.0-32.0 [facility] Comment on above: Performed By: #### I NSULIN #### [facility] [address] [address] [address] Saray Souza Creatinine [Mass/Vol] 0.87 mg/dL Normal 0.55-1.02 [facility] Comment on above: Performed By: #### I NSULIN #### [facility] [address] [address] [address] Saray Souza EGFR-AF TURKISH >60 Normal >=60 [facility] Comment on above: Performed By: #### I NSULIN #### [facility] [address] [address] [address] Saray Souza EGFR-NON AF TURKISH >60 Normal >=60 [facility] Comment on above: Performed By: #### I NSULIN #### [facility] [address] [address] [address] Saray Souza Globulin (S) [Mass/Vol] 3.2 g/dL Normal [facility] Comment on above: Performed By: #### I NSULIN #### [facility] [address] [place] [address] Dr. Saray Souza Glucose [Mass/Vol] 206 mg/dL Critically high 74-106 [facility] Comment on above: Performed By: #### I NSULIN #### [facility] [address] [address] [address] Saray Souza Potassium [Moles/Vol] 4.1 mmol/L Normal 3.5-5.1 [facility] Comment on above: Performed By: #### I NSULIN #### [facility] [address] [place] [address] Dr. Saray Souza Protein [Mass/Vol] 6.2 g/dL Critically low 6.4-8.2 [facility] Comment on above: Performed By: #### I NSULIN #### [facility] [address] [address] [address] Saray Souza Sodium [Moles/Vol] 137 mmol/L Normal 136-145 [facility] Comment on above: Performed By: #### I NSULIN #### [facility] [address] [address] [address] Saray Souza Urea nitrogen [Mass/Vol] 19.0 mg/dL Critically high 7.0-18.0 [facility] Comment on above: Performed By: #### I NSULIN #### [facility] [address] [place] [address] Dr. Saray Souza Urea nitrogen/Creatinine [Mass ratio] 21.8 mg/mg Normal [facility] Comment on above: Performed By: #### I NSULIN #### [facility] [address] [place] [address] Dr. Saray Souza TSHon 04-17-2023 TSH 0.553 uIU/mL Normal 0.358-3.740 [facility] Comment on above: Performed By: #### I NSULIN #### [facility] [address] [place] [address] Dr. Saray Souza URINE MICROSCOPIC ONLYon BACTERIA TRACE Abnormal NONE SEEN [facility] Comment on above: Performed By: #### C BC #### [facility] [address] [place] [address] Dr. Saray Souza Bacteria identified Cx Nom (U) INDICATED Normal [facility] Comment on above: Performed By: #### C BC #### [facility] [address] [place] [address] Dr. Saray Souza CAST NONE SEEN Normal NONE SEEN [facility] Comment on above: Performed By: #### C BC #### [facility] [address] [place] [address] Dr. Saray Souza Crystals LM Nom (Urine sed) NONE SEEN Normal NONE SEEN [facility] Comment on above: Performed By: #### C BC #### [facility] [facility] [address] [place] [address] Dr. Saray Souza Epithelial cells LM Ql (Urine sed) RARE Normal NONE SEEN /RARE [facility] Comment on above: Performed By: #### C BC #### [facility] [address] [place] [address] Dr. Saray Souza MUCOUS NONE SEEN Normal NONE SEEN [facility] Comment on above: Performed By: #### C BC #### [facility] [address] [place] [address] Dr. aSray Souza RBC 0-2 Normal 0-2 [facility] Comment on above: Performed By: #### C BC #### [facility] [address], [place] [address] Dr. Saray Souza WBC 5-10 Abnormal NONE SEEN [facility] Comment on above: Performed By: #### C BC #### [facility] [address], [place] [address] Dr. Saray Souza XR CHEST 2 Von [...] CAROL RAMIREZ Date: 2023-04-17 10:45 Normal [facility] INSULINon 04-07-2023 Insulin 11.3 uIU/mL Normal 2.6-24.9 [facility] Comment on above: Performed By: #### I NSULIN #### [facility] [address], [place] [address] Dr. Saray Souza US KIDNEYS BLADDERon 023 [...] NANDINI MAYER Date: 2023-04-04 08:22 Normal [facility] INSULINon 04-02-2023 Insulin 37.5 uIU/mL Critically high 2.6-24.9 [facility] Comment on above: Performed By: #### I NSULIN #### [facility] [address] [place] [address] Dr. Saray Souza CBC AUTO DIFFon 04-01-2023 BASO # 0.0 103/ul Normal 0.0-0.1 [facility] Comment on above: Performed By: #### C BC #### [facility] [address] [place] [address] Dr. Saray Souza Basophils/100 WBC (Bld) 0.5 % Normal 0.2-2.0 [facility] Comment on above: Performed By: #### C BC #### [facility] [address] [place] [address] Dr. Saray Souza EO # 0.2 103/ul Normal 0.0-0.7 [facility] Comment on above: Performed By: #### C BC #### [facility] [address] [place] [address] Dr. Saray Souza Eosinophils/100 WBC (Bld) 2.3 % Normal 0.9-7.0 [facility] Comment on above: Performed By: #### C BC #### [facility] [address] [place] [address] Dr. Saray Souza Erythrocyte distribution width (RBC) [Ratio] 11.9 % Normal 11.0-15.0 [facility] Comment on above: Performed By: #### C BC #### [facility] [address] [place] [address] Dr. Saray Souza Hematocrit (Bld) [Volume fraction] 42.2 % Normal 36.0-48.0 [facility] Comment on above: Performed By: #### C BC #### [facility] [address] [place] [address] Dr. Saray Souza Hemoglobin (Bld) [Mass/Vol] 13.7 g/dL Normal 12.0-16.0 [facility] Comment on above: Performed By: #### C BC #### [facility] [address] [place] [address] Dr. Saray Souza IG # 0.02 10e3/ul Normal 0.00-0.03 [facility] Comment on above: Performed By: #### C BC #### [facility] [address] [place] [address] Dr. Saray Souza IG % 0.3 % Normal 0.0-0.5 [facility] Comment on above: Performed By: #### C BC #### [facility] [address] [place] [address] Dr. Saray Souza LYMPH # 1.6 103/ul Normal 1.2-3.8 [facility] Comment on above: Performed By: #### C BC #### [facility] [address] [place] [address] Dr. Saray Souza Lymphocytes/100 WBC (Bld) 21.5 % Normal 20.5-60.0 [facility] Comment on above: Performed By: #### C BC #### [facility] [address] [place] [address] Dr. Saray Souza MANUAL DIFF REQ NO Normal [facility] Comment on above: Performed By: #### C BC #### [facility] [address] [place] [address] Dr. Saray Souza MCH (RBC) [Entitic mass] 30.0 pg Normal 26.7-34.0 [facility] Comment on above: Performed By: #### C BC #### [facility] [address] [place] [address] Dr. Saray Souza MCHC (RBC) [Mass/Vol] 32.5 g/dL Normal 29.9-35.2 [facility] Comment on above: Performed By: #### C BC #### [facility] [address] [place] [address] Dr. Saray Souza MCV (RBC) [Entitic vol] 92.5 fL Normal 81.0-99.0 [facility] Comment on above: Performed By: #### C BC #### [facility] [address] [place] [address] Dr. Saray Souza MONO # 0.7 103/ul Normal 0.3-0.8 [facility] Comment on above: Performed By: #### C BC #### [facility] [address] [place] [address] Dr. Saray Souza Monocytes/100 WBC (Bld) 9.6 % Normal 1.7-12.0 [facility] Comment on above: Performed By: #### C BC #### [facility] [address] [place] [address] Dr. Saray Souza NEUT # 5.0 103/ul Normal 1.4-6.5 [facility] Comment on above: Performed By: #### C BC #### [facility] [address] [place] [address] Dr. Saray Souza Neutrophils/100 WBC (Bld) 65.8 % Normal 43.0-75.0 [facility] Comment on above: Performed By: #### C BC #### [facility] [address] [place] [address] Dr. Saray Souza Platelet mean volume (Bld) [Entitic vol] 8.9 fL Critically low 9.5-13.5 [facility] Comment on above: Performed By: #### C BC #### [facility] [address] [place] [address] Dr. Saray Souza PLT 293 103/ul Normal 150-450 [facility] Comment on above: Performed By: #### C BC #### [facility] [address] [place] [address] Dr. Saray Souza RBC 4.56 106/ul Normal 4.20-5.40 [facility] Comment on above: Performed By: #### C BC #### [facility] [address] [place] [address] Dr. Saray Souza WBC 7.5 103/ul Normal 4.0-11.0 [facility] Comment on above: Performed By: #### C BC #### [facility] [address] [place] [address] Dr. Saray Souza CULTURE URINEon 04-01-2023 CULTURE URINE Culture Observations : MODERATE GROWTH OF MIXED GENITAL CARMELO. NO POTENTIAL PATHOGENS SEEN. Normal [facility] Comment on above: Performed By: #### C BC #### [facility] [address] [place] [address] Dr. Saray Souza FREE THYROXINE INDEX T7on FTI 2.51 Normal 1.30-4.50 [facility] Comment on above: Performed By: #### I NSULIN #### [facility] [address] [place] [address] Dr. Saray Souza T3U 33.0 % Normal 30.0-39.0 [facility] Comment on above: Performed By: #### I NSULIN #### [facility] [address] [place] [address] Dr. Saray Souza T4 [Mass/Vol] 7.60 ug/dL Normal 4.80-13.90 [facility] Comment on above: Performed By: #### I NSULIN #### [facility] [address] [place] [address] Dr. Saray Souza IRONon 04-01-2023 Iron [Mass/Vol] 151.0 ug/dL Normal 50.0-170.0 [facility] Comment on above: Performed By: #### C EDGARDO #### [facility] [address] [place] [address] Dr. Saray Souza PROF 14(COMP METB)on 023 Albumin [Mass/Vol] 3.7 g/dL Normal 3.4-5.0 [facility] Comment on above: Performed By: #### C EDGARDO #### [facility] [address] [place] [address] Dr. Saray Souza Albumin/Globulin [Mass ratio] 1.1 {ratio} Normal [facility] Comment on above: Performed By: #### C EDGARDO #### [facility] [address] [place] [address] Dr. Saray Souza ALP [Catalytic activity/Vol] 81 U/L Normal 46-116 [facility] Comment on above: Performed By: #### C EDGARDO #### [facility] [address] [place] [address] Dr. Saray Souza ALT [Catalytic activity/Vol] 33 U/L Normal 14-59 [facility] Comment on above: Performed By: #### C EDGARDO #### [facility] [address] [place] [address] Dr. Saray Souza Anion gap [Moles/Vol] 10.2 mmol/L Normal [facility] Comment on above: Performed By: #### C EDGARDO #### [facility] [address] [place] [address] [address] Saray Souza AST [Catalytic activity/Vol] 22 U/L Normal 15-37 [facility] Comment on above: Performed By: #### C EDGARDO #### [facility] [address] [place] [address] Dr. Saray Souza Bilirubin [Mass/Vol] 0.3 mg/dL Normal 0.2-1.0 [facility] Comment on above: Performed By: #### Sweetie REYNOSO #### [facility] [address] [place] [address] Dr. Saray Souza Calcium [Mass/Vol] 8.6 mg/dL Normal 8.5-10.1 [facility] Comment on above: Performed By: #### C EDGARDO #### [facility] [address] [place] [address] Dr. Saray Souza Chloride [Moles/Vol] 105 mmol/L Normal 98-107 [facility] Comment on above: Performed By: #### C EDGARDO #### [facility] [address] [place] [address] Dr. Saray Souza CO2 [Moles/Vol] 30.4 mmol/L Normal 21.0-32.0 [facility] Comment on above: Performed By: #### C EDGARDO #### [facility] [address] [place] [address] Dr. Saray Souza Creatinine [Mass/Vol] 0.72 mg/dL Normal 0.55-1.02 [facility] Comment on above: Performed By: #### C EDGARDO #### [facility] [address] [place] [address] Dr. Saray Souza EGFR-AF TURKISH >60 Normal >=60 [facility] Comment on above: Performed By: #### C BCMAN #### [facility] [address] [place] [address] [address] Saray Souza EGFR-NON AF TURKISH >60 Normal >=60 [facility] Comment on above: Performed By: #### C BCMAN #### [facility] [address] [place] [address] [address] Saray Souza Globulin (S) [Mass/Vol] 3.5 g/dL Normal [facility] Comment on above: Performed By: #### C BCMAN #### [facility] [address] [address] [address] Saray Souza Glucose [Mass/Vol] 89 mg/dL Normal 74-106 [facility] Comment on above: Performed By: #### C BCMAN #### [facility] [address] [place] [address] [address] Saray Souza Potassium [Moles/Vol] 3.6 mmol/L Normal 3.5-5.1 [facility] Comment on above: Performed By: #### C BCMAN #### [facility] [address] [place] [address] [address] Saray Souza Protein [Mass/Vol] 7.2 g/dL Normal 6.4-8.2 [facility] Comment on above: Performed By: #### C BCMAN #### [facility] [address] [place] [address] [address] Saray Souza Sodium [Moles/Vol] 142 mmol/L Normal 136-145 [facility] Comment on above: Performed By: #### C BCMAN #### [facility] [address] [address] [address] Saray Souza Urea nitrogen [Mass/Vol] 12.0 mg/dL Normal 7.0-18.0 [facility] Comment on above: Performed By: #### C BCMAN #### [facility] [address] [address] [address] Saray Souza Urea nitrogen/Creatinine [Mass ratio] 16.7 mg/mg Normal [facility] Comment on above: Performed By: #### C BCMAN #### [facility] [address] [address] [address] Saray Souza TSHon 04-01-2023 TSH 1.708 uIU/mL Normal 0.358-3.740 [facility] Comment on above: Performed By: #### I NSULIN #### [facility] [address] [place] [address] Dr. Saray Souza UA RANDOM W/MICROSCOPICon BACTERIA SMALL Abnormal NONE SEEN [facility] Comment on above: Performed By: #### I NSULIN #### [facility] [address] [place] [address] Dr. Saray Souza Bilirubin Ql (U) Negative Normal NEGATIVE [facility] Comment on above: Performed By: #### I NSULIN #### [facility] [address] [place] [address] Dr. Saray Souza CAST NONE SEEN Normal NONE SEEN [facility] Comment on above: Performed By: #### I NSULIN #### [facility] [address] [place] [address] Dr. Saray Souza Clarity (U) CLEAR Normal CLEAR [facility] Comment on above: Performed By: #### I NSULIN #### [facility] [address] [place] [address] Dr. Saray Souza Color (U) YELLOW Normal YELLOW [facility] Comment on above: Performed By: #### I NSULIN #### [facility] [address] [place] [address] Dr. Saray Souza Crystals LM Nom (Urine sed) NONE SEEN Normal NONE SEEN [facility] Comment on above: Performed By: #### I NSULIN #### [facility] [address] [place] [address] Dr. Saray Souza Epithelial cells LM Ql (Urine sed) FEW Abnormal NONE SEEN /RARE [facility] Comment on above: Performed By: #### I NSULIN #### [facility] [address] [place] [address] Dr. Saray Souza Glucose Ql (U) Negative Normal NEGATIVE [facility] Comment on above: Performed By: #### I NSULIN #### [facility] [address] [address] [address] Saray Souza Hemoglobin Ql (U) Negative Normal NEGATIVE [facility] Comment on above: Performed By: #### I NSULIN #### [facility] [address] [address] [address] Saray Souza Ketones Ql (U) TRACE Abnormal NEGATIVE [facility] Comment on above: Performed By: #### I NSULIN #### [facility] [address] [address] [address] Saray Souza LEUKOCYTES SMALL Abnormal NEGATIVE [facility] Comment on above: Performed By: #### I NSULIN #### [facility] [address] [place] [address] Dr. Saray Souza MUCOUS NONE SEEN Normal NONE SEEN [facility] Comment on above: Performed By: #### I NSULIN #### [facility] [address] [address] [address] Saray Souza Nitrite Ql (U) Negative Normal NEGATIVE [facility] Comment on above: Performed By: #### I NSULIN #### [facility] [address] [place] [address] Dr. Saray Souza pH (U) 5.5 [pH] Normal 5-9 [facility] Comment on above: Performed By: #### I NSULIN #### [facility] [address] [place] [address] Dr. Saray Souza RBC 0-2 Normal 0-2 [facility] Comment on above: Performed By: #### I NSULIN #### [facility] [address] [place] [address] Dr. Saray Souza SPEC GRAVITY >=1.030 Abnormal 1.005-<=1.025 [facility] Comment on above: Performed By: #### I NSULIN #### [facility] [address] [place] [address] Dr. Saray Souza UA PROTEIN Negative Normal NEGATIVE/ TRACE [facility] Comment on above: Performed By: #### I NSULIN #### [facility] [address] [place] [address] Dr. Saray Souza Urobilinogen Qn (U) 0.2 {Janine'U}/dL Normal 0.2 - 1. 0 [facility] Comment on above: Performed By: #### I NSULIN #### [facility] [address] [place] [address] Dr. Saray Souza WBC 5-10 Abnormal NONE SEEN [facility] Comment on above: Performed By: #### I NSULIN #### [facility] [address] [place] [address] Dr. Saray Souza INSULINon 02-14-2023 Insulin 12.8 uIU/mL Normal 2.6-24.9 [facility] Comment on above: Performed By: #### C BC #### [facility] [address] [place] [address] Dr. Saray Souza CBC AUTO DIFFon 02-13-2023 BASO # 0.0 103/ul Normal 0.0-0.1 [facility] Comment on above: Performed By: #### C BC #### [facility] [address] [place] [address] Dr. Saray Souza Basophils/100 WBC (Bld) 0.4 % Normal 0.2-2.0 [facility] Comment on above: Performed By: #### C BC #### [facility] [address] [place] [address] Dr. Saray Souza EO # 0.1 103/ul Normal 0.0-0.7 [facility] Comment on above: Performed By: #### C BC #### [facility] [address] [place] [address] Dr. Saray Souza Eosinophils/100 WBC (Bld) 1.6 % Normal 0.9-7.0 [facility] Comment on above: Performed By: #### C BC #### [facility] [address] [place] [address] Dr. Saray Souza Erythrocyte distribution width (RBC) [Ratio] 11.9 % Normal 11.0-15.0 [facility] Comment on above: Performed By: #### C BC #### [facility] [address] [place] [address] Dr. Saray Souza Hematocrit (Bld) [Volume fraction] 41.9 % Normal 36.0-48.0 [facility] Comment on above: Performed By: #### C BC #### [facility] [address] [place] [address] Dr. Saray Souza Hemoglobin (Bld) [Mass/Vol] 13.7 g/dL Normal 12.0-16.0 [facility] Comment on above: Performed By: #### C BC #### [facility] [address] [place] [address] Dr. Saray Souza IG # 0.02 10e3/ul Normal 0.00-0.03 [facility] Comment on above: Performed By: #### C BC #### [facility] [address] [place] [address] Dr. Saray Souza IG % 0.3 % Normal 0.0-0.5 [facility] Comment on above: Performed By: #### C BC #### [facility] [address] [place] [address] Dr. Saray Souza LYMPH # 1.4 103/ul Normal 1.2-3.8 [facility] Comment on above: Performed By: #### C BC #### [facility] [address] [place] [address] Dr. Saray Souza Lymphocytes/100 WBC (Bld) 18.6 % Critically low 20.5-60.0 [facility] Comment on above: Performed By: #### C BC #### [facility] [address] [place] [address] Dr. Saray Souza MANUAL DIFF REQ NO Normal [facility] Comment on above: Performed By: #### C BC #### [facility] [address] [place] [address] Dr. Saray Souza MCH (RBC) [Entitic mass] 29.9 pg Normal 26.7-34.0 [facility] Comment on above: Performed By: #### C BC #### [facility] [address] [address] [address] Saray Souza MCHC (RBC) [Mass/Vol] 32.7 g/dL Normal 29.9-35.2 [facility] Comment on above: Performed By: #### C BC #### [facility] [address] [id number] [address] Saray Souza MCV (RBC) [Entitic vol] 91.5 fL Normal 81.0-99.0 [facility] Comment on above: Performed By: #### C BC #### [facility] [address] [address] [address] Saray Souza MONO # 0.6 103/ul Normal 0.3-0.8 [facility] Comment on above: Performed By: #### C BC #### [facility] [address] [place] [address] Dr. Saray Souza Monocytes/100 WBC (Bld) 8.3 % Normal 1.7-12.0 [facility] Comment on above: Performed By: #### C BC #### [facility] [address] [place] [address] Dr. Saray Souza NEUT # 5.5 103/ul Normal 1.4-6.5 [facility] Comment on above: Performed By: #### C BC #### [facility] [address] [place], [place] [id number] Dr. Saray Souza Neutrophils/100 WBC (Bld) 70.8 % Normal 43.0-75.0 [facility] Comment on above: Performed By: #### C BC #### [facility] [address] [place], [place] [id number] Dr. Saray Souza Platelet mean volume (Bld) [Entitic vol] 9.0 fL Critically low 9.5-13.5 [facility] Comment on above: Performed By: #### C BC #### [facility] [address] [place] [address] Dr. Saray Souza PLT 271 103/ul Normal 150-450 [facility] Comment on above: Performed By: #### C BC #### [facility] [address] [address] [address] Saray Souza RBC 4.58 106/ul Normal 4.20-5.40 [facility] Comment on above: Performed By: #### C BC #### [facility] [address] [place] [address] Dr. Saray Souza WBC 7.7 103/ul Normal 4.0-11.0 [facility] Comment on above: Performed By: #### C BC #### [facility] [address] [place] [address] Dr. Saray Souza FREE THYROXINE INDEX T7on FTI 2.56 Normal 1.30-4.50 [facility] Comment on above: Performed By: #### I NSULIN #### [facility] [address] [place] [address] Dr. Saray Souza T3U 36.0 % Normal 30.0-39.0 [facility] Comment on above: Performed By: #### I NSULIN #### [facility] [address] [place] [address] Dr. Saray Souza T4 [Mass/Vol] 7.10 ug/dL Normal 4.80-13.90 [facility] Comment on above: Performed By: #### I NSULIN #### [facility] [address] [place] [address] Dr. Saray Souza IRONon 02-13-2023 Iron [Mass/Vol] 130.0 ug/dL Normal 50.0-170.0 [facility] Comment on above: Performed By: #### C BCMAN #### [facility] [address] [place] [address] Dr. Saray Souza PROF 14(COMP METB)on 023 Albumin [Mass/Vol] 3.8 g/dL Normal 3.4-5.0 [facility] Comment on above: Performed By: #### I NSULIN #### [facility] [address] [place] [address] Dr. Saray Souza Albumin/Globulin [Mass ratio] 1.2 {ratio} Normal [facility] Comment on above: Performed By: #### I NSULIN #### [facility] [address] [address] [address] Saray Souza ALP [Catalytic activity/Vol] 82 U/L Normal 46-116 [facility] Comment on above: Performed By: #### I NSULIN #### [facility] [address] [address] [address] Saray Souza ALT [Catalytic activity/Vol] 25 U/L Normal 14-59 [facility] Comment on above: Performed By: #### I NSULIN #### [facility] [address] [address] [address] Saray Souza Anion gap [Moles/Vol] 12.7 mmol/L Normal [facility] Comment on above: Performed By: #### I NSULIN #### [facility] [address] [place] [address] Dr. Saray Souza AST [Catalytic activity/Vol] 19 U/L Normal 15-37 [facility] Comment on above: Performed By: #### I NSULIN #### [facility] [address] [place] [address] Dr. Saray Souza Bilirubin [Mass/Vol] 0.3 mg/dL Normal 0.2-1.0 [facility] Comment on above: Performed By: #### I NSULIN #### [facility] [address] [place] [address] Dr. Saray Souza Calcium [Mass/Vol] 8.8 mg/dL Normal 8.5-10.1 [facility] Comment on above: Performed By: #### I NSULIN #### [facility] [address] [address] [address] Saray Souza Chloride [Moles/Vol] 101 mmol/L Normal 98-107 [facility] Comment on above: Performed By: #### I NSULIN #### [facility] [address] [address] [address] Saray Souza CO2 [Moles/Vol] 27.3 mmol/L Normal 21.0-32.0 [facility] Comment on above: Performed By: #### I NSULIN #### [facility] [address] [place] [address] Dr. Saray Souza Creatinine [Mass/Vol] 0.69 mg/dL Normal 0.55-1.02 [facility] Comment on above: Performed By: #### I NSULIN #### [facility] [address] [address] [address] Saray Souza EGFR-AF TURKISH >60 Normal >=60 [facility] Comment on above: Performed By: #### I NSULIN #### [facility] [address] [address] [address] Saray Souza EGFR-NON AF TURKISH >60 Normal >=60 [facility] Comment on above: Performed By: #### I NSULIN #### [facility] [address] [place] [address] Dr. Saray Souza Globulin (S) [Mass/Vol] 3.3 g/dL Normal [facility] Comment on above: Performed By: #### I NSULIN #### [facility] [address] [address] [address] Saray Souza Glucose [Mass/Vol] 83 mg/dL Normal 74-106 [facility] Comment on above: Performed By: #### I NSULIN #### [facility] [address] [place] [address] Dr. Saray Souza Potassium [Moles/Vol] 4.0 mmol/L Normal 3.5-5.1 [facility] Comment on above: Performed By: #### I NSULIN #### [facility] [address] [place] [address] Dr. Saray Souza Protein [Mass/Vol] 7.1 g/dL Normal 6.4-8.2 [facility] Comment on above: Performed By: #### I NSULIN #### [facility] [address] [place] [address] Dr. Saray Souza Sodium [Moles/Vol] 137 mmol/L Normal 136-145 [facility] Comment on above: Performed By: #### I NSULIN #### [facility] [address] [place] [address] Dr. Saray Souza Urea nitrogen [Mass/Vol] 10.0 mg/dL Normal 7.0-18.0 [facility] Comment on above: Performed By: #### I NSULIN #### [facility] [address] [place] [address] Dr. Saray Souza Urea nitrogen/Creatinine [Mass ratio] 14.5 mg/mg Normal [facility] Comment on above: Performed By: #### I NSULIN #### [facility] [address] [place] [address] Dr. Saray Suoza TSHon 02-13-2023 TSH 2.745 uIU/mL Normal 0.358-3.740 [facility] Comment on above: Performed By: #### I NSULIN #### [facility] [address] [place] [address] Dr. Saray Souza AMYLASEon 02-04-2023 Amylase [Catalytic activity/Vol] 45 U/L Normal 25-115 [facility] Comment on above: Performed By: #### T SH, CMP, HSTROPN, LIPA, KELLE #### [facility] [address] [place] [address] Dr. Saray Souza CBC AUTO DIFFon 02-04-2023 BASO # 0.0 103/ul Normal 0.0-0.1 [facility] Comment on above: Performed By: #### C BC #### [facility] [address] [place] [address] Dr. Saray Souza Basophils/100 WBC (Bld) 0.4 % Normal 0.2-2.0 [facility] Comment on above: Performed By: #### C BC #### [facility] [address] [place] [address] Dr. Saray Souza EO # 0.1 103/ul Normal 0.0-0.7 [facility] Comment on above: Performed By: #### C BC #### [facility] [address] [place] [address] Dr. Saray Souza Eosinophils/100 WBC (Bld) 1.7 % Normal 0.9-7.0 [facility] Comment on above: Performed By: #### C BC #### [facility] [address] [place] [address] Dr. Saray Souza Erythrocyte distribution width (RBC) [Ratio] 12.0 % Normal 11.0-15.0 [facility] Comment on above: Performed By: #### C BC #### [facility] [address] [place] [address] Dr. Saray Souza Hematocrit (Bld) [Volume fraction] 42.3 % Normal 36.0-48.0 [facility] Comment on above: Performed By: #### C BC #### [facility] [address] [place] [address] Dr. Saray Souza Hemoglobin (Bld) [Mass/Vol] 13.9 g/dL Normal 12.0-16.0 [facility] Comment on above: Performed By: #### C BC #### [facility] [address] [place] [address] Dr. Saray Souza IG # 0.03 10e3/ul Normal 0.00-0.03 [facility] Comment on above: Performed By: #### C BC #### [facility] [address] [place] [address] Dr. Saray Souza IG % 0.4 % Normal 0.0-0.5 [facility] Comment on above: Performed By: #### C BC #### [facility] [address] [place] [address] Dr. Saray Souza LYMPH # 1.5 103/ul Normal 1.2-3.8 [facility] Comment on above: Performed By: #### C BC #### [facility] [address] [place] [address] Dr. Saray Souza Lymphocytes/100 WBC (Bld) 20.4 % Critically low 20.5-60.0 [facility] Comment on above: Performed By: #### C BC #### [facility] [address] [place] [address] Dr. Saray Souza MANUAL DIFF REQ NO Normal [facility] Comment on above: Performed By: #### C BC #### [facility] [address] [address] [address] Saray Souza MCH (RBC) [Entitic mass] 30.0 pg Normal 26.7-34.0 [facility] Comment on above: Performed By: #### C BC #### [facility] [address] [place] [address] Dr. Saray Souza MCHC (RBC) [Mass/Vol] 32.9 g/dL Normal 29.9-35.2 [facility] Comment on above: Performed By: #### C BC #### [facility] [address] [place] [address] Dr. Saray Souza MCV (RBC) [Entitic vol] 91.2 fL Normal 81.0-99.0 [facility] Comment on above: Performed By: #### C BC #### [facility] [address] [place] [address] Dr. Saray Souza MONO # 0.6 103/ul Normal 0.3-0.8 [facility] Comment on above: Performed By: #### C BC #### [facility] [address] [place] [address] Dr. Saray Souza Monocytes/100 WBC (Bld) 7.7 % Normal 1.7-12.0 [facility] Comment on above: Performed By: #### C BC #### [facility] [address] [place] [address] Dr. Saray Souza NEUT # 5.2 103/ul Normal 1.4-6.5 [facility] Comment on above: Performed By: #### C BC #### [facility] [address] [place] [address] Dr. Saray Souza Neutrophils/100 WBC (Bld) 69.4 % Normal 43.0-75.0 [facility] Comment on above: Performed By: #### C BC #### [facility] [address] [place] [address] Dr. Saray Souza Platelet mean volume (Bld) [Entitic vol] 9.0 fL Critically low 9.5-13.5 [facility] Comment on above: Performed By: #### C BC #### [facility] [address] [place] [address] Dr. Saray Souza PLT 292 103/ul Normal 150-450 [facility] Comment on above: Performed By: #### C BC #### [facility] [address] [place] [address] Dr. Saray Souza RBC 4.64 106/ul Normal 4.20-5.40 [facility] Comment on above: Performed By: #### C BC #### [facility] [address] [place] [address] Dr. Saray Souza WBC 7.5 103/ul Normal 4.0-11.0 [facility] Comment on above: Performed By: #### C BC #### [facility] [address] [place] [address] Dr. Saray Souza CULTURE URINEon 02-04-2023 CULTURE URINE Culture Observations : LIGHT GROWTH OF MIXED GENITAL CARMELO. NO POTENTIAL PATHOGENS SEEN. Normal [facility] Comment on above: Performed By: #### C BC #### [facility] [address] [place] [address] Dr. Saray Souza ER URINE PROFILEon 3 Bilirubin Ql (U) Negative Normal NEGATIVE [facility] Comment on above: Performed By: #### C BC #### [facility] [address] [place] [address] Dr. Saray Souaz Clarity (U) CLEAR Normal CLEAR [facility] Comment on above: Performed By: #### C BC #### [facility] [address] [place] [address] Dr. Saray Souza Color (U) LT. YELLOW Normal YELLOW [facility] Comment on above: Performed By: #### C BC #### [facility] [address] [place] [address] Dr. Saray JHA A micrscopic examination will be performed if indicated. Normal [facility] Comment on above: Performed By: #### C BC #### [facility] [address] [place] [address] Dr. Saray Souza Glucose Ql (U) Negative Normal NEGATIVE [facility] Comment on above: Performed By: #### C BC #### [facility] [address] [address] [address] Saray Souza Hemoglobin Ql (U) Negative Normal NEGATIVE [facility] Comment on above: Performed By: #### C BC #### [facility] [address] [address] [address] Saray Souza Ketones Ql (U) Negative Normal NEGATIVE [facility] Comment on above: Performed By: #### C BC #### [facility] [address] [address] [address] Saray Souza LEUKOCYTES MODERATE Abnormal NEGATIVE [facility] Comment on above: Performed By: #### C BC #### [facility] [address] [place] [address] Dr. Saray Souza Nitrite Ql (U) Negative Normal NEGATIVE [facility] Comment on above: Performed By: #### C BC #### [facility] [address] [place] [address] Dr. Saray Souza pH (U) 5.5 [pH] Normal 5-9 [facility] Comment on above: Performed By: #### C BC #### [facility] [address] [place] [address] Dr. Saray Souza SPEC GRAVITY >=1.030 Abnormal 1.005-<=1.025 [facility] Comment on above: Performed By: #### C BC #### [facility] [address] [place] [address] Dr. Saray Souza UA PROTEIN Negative Normal NEGATIVE/ TRACE [facility] Comment on above: Performed By: #### C BC #### [facility] [address] [place] [address] Dr. Saray Souza UR MICRO IND INDICATED Normal [facility] Comment on above: Performed By: #### C BC #### [facility] [address] [place] [address] Dr. Saray Souza Urobilinogen Qn (U) 0.2 {Janine'U}/dL Normal 0.2 - 1. 0 [facility] Comment on above: Performed By: #### C BC #### [facility] [address] [place] [address] Dr. Saray Souza LIPASEon 02-04-2023 Lipase [Catalytic activity/Vol] 97.0 U/L Normal 73.0-393.0 [facility] Comment on above: Performed By: #### T SH, CMP, HSTROPN, LIPA, KELLE #### [facility] [address] [place] [address] Dr. Saray Souza URon 02-04-2023 , QUAL Negative Normal NEGATIVE [facility] Comment on above: Performed By: #### C BC #### [facility] [address] [place] [address] Dr. Saray Souza PROF 14(COMP METB)on 023 Albumin [Mass/Vol] 3.5 g/dL Normal 3.4-5.0 [facility] Comment on above: Performed By: #### T SH, CMP, HSTROPN, LIPA, KELLE #### [facility] [address] [place] [address] Dr. Saray Souza Albumin/Globulin [Mass ratio] 1.2 {ratio} Normal [facility] Comment on above: Performed By: #### T SH, CMP, HSTROPN, LIPA, KELLE #### [facility] [address] [place] [address] Dr. Saray Souza ALP [Catalytic activity/Vol] 78 U/L Normal 46-116 [facility] Comment on above: Performed By: #### T SH, CMP, HSTROPN, LIPA, KELLE #### [facility] [address] [place] [address] Dr. Saray Souza ALT [Catalytic activity/Vol] 24 U/L Normal 14-59 [facility] Comment on above: Performed By: #### T SH, CMP, HSTROPN, LIPA, KELLE #### [facility] [address] [place] [address] Dr. Saray Souza Anion gap [Moles/Vol] 7.9 mmol/L Normal [facility] Comment on above: Performed By: #### T SH, CMP, HSTROPN, LIPA, KELLE #### [facility] [address] [place] [address] Dr. Saray Souza AST [Catalytic activity/Vol] 16 U/L Normal 15-37 [facility] Comment on above: Performed By: #### T SH, CMP, HSTROPN, LIPA, KELLE #### [facility] [address] [place] [address] Dr. Saray Souza Bilirubin [Mass/Vol] 0.3 mg/dL Normal 0.2-1.0 [facility] Comment on above: Performed By: #### T SH, CMP, HSTROPN, LIPA, KELLE #### [facility] [address] [place] [address] Dr. Saray Souza Calcium [Mass/Vol] 8.6 mg/dL Normal 8.5-10.1 [facility] Comment on above: Performed By: #### T SH, CMP, HSTROPN, LIPA, KELLE #### [facility] [address] [place] [address] Dr. Saray Souza Chloride [Moles/Vol] 105 mmol/L Normal 98-107 [facility] Comment on above: Performed By: #### T SH, CMP, HSTROPN, LIPA, KELLE #### [facility] [address] [place] [address] Dr. Saray Souza CO2 [Moles/Vol] 28.9 mmol/L Normal 21.0-32.0 [facility] Comment on above: Performed By: #### T SH, CMP, HSTROPN, LIPA, KELLE #### [facility] [address] [place] [address] Dr. Saray Souza Creatinine [Mass/Vol] 0.67 mg/dL Normal 0.55-1.02 [facility] Comment on above: Performed By: #### T SH, CMP, HSTROPN, LIPA, KELLE #### [facility] [address] [place] [address] Dr. Saray Souza EGFR-AF TURKISH >60 Normal >=60 [facility] Comment on above: Performed By: #### T SH, CMP, HSTROPN, LIPA, KELLE #### [facility] [address] [place] [address] Dr. Saray Souza EGFR-NON AF TURKISH >60 Normal >=60 [facility] Comment on above: Performed By: #### T SH, CMP, HSTROPN, LIPA, KELLE #### [facility] [address] [place] [address] Dr. Saray Souza Globulin (S) [Mass/Vol] 3.0 g/dL Normal [facility] Comment on above: Performed By: #### T SH, CMP, HSTROPN, LIPA, KELLE #### [facility] [address] [place] [address] Dr. Saray Souza Glucose [Mass/Vol] 97 mg/dL Normal 74-106 [facility] Comment on above: Performed By: #### T SH, CMP, HSTROPN, LIPA, KLELE #### [facility] [address] [place] [address] Dr. Saray Souza Potassium [Moles/Vol] 3.8 mmol/L Normal 3.5-5.1 [facility] Comment on above: Performed By: #### T SH, CMP, HSTROPN, LIPA, KELLE #### [facility] [address] [place] [address] Dr. Saray Souza Protein [Mass/Vol] 6.5 g/dL Normal 6.4-8.2 [facility] Comment on above: Performed By: #### T SH, CMP, HSTROPN, LIPA, KELLE #### [facility] [address] [place] [address] Dr. Saray Souza Sodium [Moles/Vol] 138 mmol/L Normal 136-145 [facility] Comment on above: Performed By: #### T SH, CMP, HSTROPN, LIPA, KELLE #### [facility] [address] [place] [address] Dr. Saray Souza Urea nitrogen [Mass/Vol] 13.0 mg/dL Normal 7.0-18.0 [facility] Comment on above: Performed By: #### T SH, CMP, HSTROPN, LIPA, KELLE #### [facility] [address] [place] [address] Dr. Saray Souza Urea nitrogen/Creatinine [Mass ratio] 19.4 mg/mg Normal [facility] Comment on above: Performed By: #### T SH, CMP, HSTROPN, LIPA, KELLE #### [facility] [address] [place] [address] Dr. Saray Souza TROPONIN, HIGH SENSITIVITYon 02-04-2023 HSTROP 4.0 pg/mL Normal 4.0-51.3 [facility] Comment on above: Result Comment: CUT- OFF POINTS HAVE BEEN ESTABLISHED BASED ON THE FOURTH UNIVERSAL DEFINITIONS OF MYOCARDIAL INFARCTION. THE UPPER REFERENCE LIMIT (URL) OF TROPONIN, DEFINED THE 99TH PERCENTILE OF cTnI DISTRIBUTION IN A REFERENCE POPULATION, HAS BEEN CONFIRMED THE DECISION THRESHOLD FOR [place] DIAGNOSIS. Performed By: #### T SH, CMP, HSTROPN, LIPA, KELLE #### [facility] [address] [place] [address] Dr. Saray Souza TSHon 02-04-2023 TSH 2.478 uIU/mL Normal 0.358-3.740 [facility] Comment on above: Performed By: #### T SH, CMP, HSTROPN, LIPA, KELLE #### [facility] [address] [place] [address] Dr. Saray Souza URINE MICROSCOPIC ONLYon BACTERIA MODERATE Abnormal NONE SEEN [facility] Comment on above: Performed By: #### C BC #### [facility] [address] [place] [address] Dr. Saray Souza Bacteria identified Cx Nom (U) INDICATED Normal [facility] Comment on above: Performed By: #### C BC #### [facility] [address] [place] [address] Dr. Saray Souza CAST NONE SEEN Normal NONE SEEN [facility] Comment on above: Performed By: #### C BC #### [facility] [address] [place] [address] Dr. Saray Souza Crystals LM Nom (Urine sed) NONE SEEN Normal NONE SEEN [facility] Comment on above: Performed By: #### C BC #### [facility] [address] [place] [address] Dr. Saray Souza Epithelial cells LM Ql (Urine sed) MODERATE Abnormal NONE SEEN /RARE [facility] Comment on above: Performed By: #### C BC #### [facility] [address] [place] [address] Dr. Saray Souza MUCOUS NONE SEEN Normal NONE SEEN [facility] Comment on above: Performed By: #### C BC #### [facility] [address] [place] [address] Dr. Saray Souza RBC 5-10 Abnormal 0-2 [facility] Comment on above: Performed By: #### C BC #### [facility] [address] [place] [address] Dr. Saray Souza WBC 10-20 Abnormal NONE SEEN [facility] Comment on above: Performed By: #### C BC #### [facility] [address] [place] [address] Dr. Saray Souza Covid-19 PCR ([facility])on 09-24 SARS-CoV-2 (COVID-19) RNA DAYDAY+probe Ql (Unsp spec) Not detected Normal NOT DETECTED [facility] Comment on above: Result Comment: When [...] for this test is supported by the [employer] Assistant Manager of Health and Human Service's declaration [...] used). Performed By: #### C BC #### [facility] [address] [place] [address] Dr. Saray Souza INFLUENZA A AND B AGon 10-20 INFLUANEGH SEE BELOW Normal [facility] Comment on above: Result Comment: Nega tive for Flu A protein angiten. Infection due to Flu A cannot be ruled out. Flu A angiten in the sample may be below the detection limit of the test. Performed By: #### C BC #### [facility] [address] [place] [address] Dr. Saray Souza INFLUBNEGH SEE BELOW Normal [facility] Comment on above: Result Comment: Nega tive for Flu B protein antigen. Infection due to Flu B cannot be ruled out. Flu B antigen in the sample may be below the detection limit of the test. Performed By: #### C BC #### [facility] [address] [place] [address] Dr. Saray Souza INFLUENZA A AG Negative Normal NEGATIVE SEE COMMENT [facility] Comment on above: Performed By: #### C BC #### [facility] [address] [place] [address] Dr. Saray Souza INFLUENZA B AG Negative Normal NEGATIVE SEE COMMENT [facility] Comment on above: Performed By: #### C BC #### [facility] [address] [place] [address] Dr. Saray Souza INTERNAL CONTROLS Within Normal Limits Normal Wi thin Normal Limits [facility] Comment on above: Performed By: #### C BC #### [facility] [address] [place] [address] Dr. Saray Souza STREPT SCREENon 10-20-2022 STREP SCREEN A Positive Abnormal NEGATIVE [facility] Comment on above: Performed By: #### C BC #### [facility] [address] [place] [address] Dr. Saray Souza XR SHOULDER RT INJon [...] by: ADRIANA MENDEZ Date: 2022-07-18 17:05 Normal [facility] MRI SHOULDER RT WO CONon MRI SHOULDER [...] by: ADRIANA MENDEZ Date: 2022-07-10 10:10 Normal [facility] XR ARTHRO SHLD RTon 07-10-20 XR ARTHRO [...] by: ADRIANA MENDEZ Date: 2022-07-10 10:01 Normal [facility] No Panel Informationon 03-18 Right Eye Reliability was good. Findings include normal observations. Left Eye Reliability was good. Findings include normal observations. Notes I personally reviewed the visual zaldivar performed by this patient on 03/18/22. The visual zaldivar are normal OU with good fixation. Francisco Ayers MD [facility] Radiology Study observation (narrative) [facility] Progress Noteson 03-18-2022 Clinical Resource Director Authentication Interface Message Text Referred by [...] Hair) regarding headaches-- will fax information to [phone] - Offered referral to neurology, patient prefers [...] her PCP. Francisco Ayers MD Normal [facility] [employer] Vital Signs Date Time Vital Sign Value Performing Clinician Facility 2025 15:04-0400 Body mass index (BMI) [Ratio] 47.06 kg/m2 [employer] Work Phone: [facility] 2025 15:04-0400 Body weight 148.78 kg [employer] Work Phone: [facility] 2025 15:04-0400 Diastolic blood pressure 86 mm[Hg] [employer] Work Phone: [facility] 2025 15:04-0400 Systolic blood pressure 132 mm[Hg] [employer] Work Phone: [facility] 04-27-2025 13:06-0400 Body mass index (BMI) [Ratio] 46.85 kg/m2 Kelle Mercedita PA Work Phone: [facility] 04-27-2025 13:06-0400 Body weight 148.1 kg Kelle Melany PA Work Phone: [facility] 04-27-2025 13:06-0400 Diastolic blood pressure 90 mm[Hg] Kelle Mercedita PA Work Phone: [facility] 04-27-2025 13:06-0400 Systolic blood pressure 124 mm[Hg] Kelle Mercedita PA Work Phone: [facility] 04-12-2025 14:56-0400 Body mass index (BMI) [Ratio] 46.96 kg/m2 Graham Dante DO Work Phone: [facility] 04-12-2025 14:56-0400 Body weight 148.44 kg Graham Dante DO Work Phone: [facility] 04-12-2025 14:56-0400 Diastolic blood pressure 82 mm[Hg] Graham Dante DO Work Phone: [facility] 04-12-2025 14:56-0400 Systolic blood pressure 130 mm[Hg] Graham Dante DO Work Phone: [facility] 03-29-2025 15:44-0400 Body mass index (BMI) [Ratio] 45.99 kg/m2 Kelle Melany PA Work Phone: [facility] 03-29-2025 15:44-0400 Body weight 145.38 kg Kelle Melany PA Work Phone: [facility] 03-29-2025 15:44-0400 Diastolic blood pressure 84 mm[Hg] Kelle Melany PA Work Phone: [facility] 03-29-2025 15:44-0400 Systolic blood pressure 120 mm[Hg] Kelle Melany PA Work Phone: [facility] 03-15-2025 15:24-0400 Body mass index (BMI) [Ratio] 46.2 kg/m2 Graham Dante DO Work Phone: [facility] 03-15-2025 15:24-0400 Body weight 146.06 kg Graham Dante DO Work Phone: [facility] 03-15-2025 15:24-0400 Diastolic blood pressure 74 mm[Hg] Graham Dante DO Work Phone: [facility] 03-15-2025 15:24-0400 Systolic blood pressure 110 mm[Hg] Graham Dante DO Work Phone: [facility] 01-04-2025 16:08-0500 Body mass index (BMI) [Ratio] 45.77 kg/m2 Kelle Melany PA Work Phone: [facility] 01-04-2025 16:08-0500 Body weight 144.7 kg Kelle Melany PA Work Phone: [facility] 01-04-2025 16:08-0500 Diastolic blood pressure 78 mm[Hg] Kelle Melany PA Work Phone: [facility] 01-04-2025 16:08-0500 Systolic blood pressure 120 mm[Hg] Kelle Mercedita PA Work Phone: [facility] 12-27-2024 09:53-0500 Body mass index (BMI) [Ratio] 45.69 kg/m2 Kelle Melany PA Work Phone: [facility] 12-27-2024 09:53-0500 Body weight 144.43 kg Kelle Mercedita PA Work Phone: [facility] 12-27-2024 09:53-0500 Diastolic blood pressure 78 mm[Hg] Kelle Melany PA Work Phone: [facility] 12-27-2024 09:53-0500 Systolic blood pressure 130 mm[Hg] Kelle Mercedita PA Work Phone: [facility] 12-05-2024 15:49-0500 Body mass index (BMI) [Ratio] 45.92 kg/m2 Graham Dante DO Work Phone: [facility] 12-05-2024 15:49-0500 Body weight 145.15 kg Graham Dante DO Work Phone: [facility] 12-05-2024 15:49-0500 Diastolic blood pressure 70 mm[Hg] Graham Dante DO Work Phone: [facility] 12-05-2024 15:49-0500 Systolic blood pressure 120 mm[Hg] Graham Dante DO Work Phone: [facility] 12-02-2024 19:42-0500 Diastolic blood pressure 80 mm[Hg] Nic Estevez MD Work Phone: [facility] 12-02-2024 19:42-0500 Systolic blood pressure 122 mm[Hg] Nic Estevez MD Work Phone: [facility] 12-02-2024 19:40-0500 Body temperature 99.39 [degF] Nic Estevez MD Work Phone: [facility] 12-02-2024 19:38-0500 Heart rate 105 /min Nic Estevez MD Work Phone: [facility] 12-02-2024 19:38-0500 Respiratory rate 18 /min Nic Estevez MD Work Phone: [facility] [employer] 12-02-2024 19:38-0500 SaO2% (BldA) [Mass fraction] 99 % Nic Estevez MD Work Phone: [facility] 11-03-2024 13:25-0500 Body mass index (BMI) [Ratio] 46.4 kg/m2 [facility] 11-03-2024 13:25-0500 Body weight 146.69 kg [facility] 08-29-2024 10:53-0400 Body mass index (BMI) [Ratio] 45.89 kg/m2 Kelle BAE Work Phone: [facility] 08-29-2024 10:53-0400 Body weight 145.06 kg Kelle BAE Work Phone: [facility] 08-29-2024 10:53-0400 Diastolic blood pressure 70 mm[Hg] Kelle Melany PA Work Phone: [facility] 08-29-2024 10:53-0400 Systolic blood pressure 120 mm[Hg] Kelle Mercedita PA Work Phone: [facility] 07-26-2024 08:36-0400 Body height 177.8 cm Kelle Melany PA Work Phone: [facility] 07-26-2024 08:36-0400 Body mass index (BMI) [Ratio] 46.06 kg/m2 Kelle Melany PA Work Phone: [facility] 07-26-2024 08:36-0400 Body weight 145.6 kg Kelle Melany PA Work Phone: [facility] 07-26-2024 08:36-0400 Diastolic blood pressure 84 mm[Hg] Kelle Mercedita PA Work Phone: [facility] 07-26-2024 08:36-0400 Systolic blood pressure 130 mm[Hg] Kelle Mercedita PA Work Phone: [facility] 2024 09:04-0400 Blood Pressure Location JANNETH LUIS [facility] 2024 09:04-0400 Diastolic blood pressure 82 mm[Hg] JANNETH LUIS [facility] 2024 09:04-0400 Heart rate 74 /min JANNETH LUIS [facility] 2024 09:04-0400 Respiratory rate 16 /min JANNETH LUIS [facility] 2024 09:04-0400 Systolic blood pressure 125 mm[Hg] JANNETH LUIS [facility] 03-08-2024 14:09-0400 Blood Pressure Location Yonis NILL [facility] [place] 03-08-2024 14:09-0400 Diastolic blood pressure 84 mm[Hg] Yonis NILL [facility] [place] 03-08-2024 14:09-0400 Heart rate 76 /min Yonis NILL [facility] [place] 03-08-2024 14:09-0400 Respiratory rate 16 /min Yonis NILL [facility] [place] 03-08-2024 14:09-0400 Systolic blood pressure 118 mm[Hg] Yonis NILL [facility] 01-19-2024 09:34-0500 Blood Pressure Location JANNETH LUIS [facility] 01-19-2024 09:34-0500 Diastolic blood pressure 84 mm[Hg] JANNETH LUIS [facility] 01-19-2024 09:34-0500 Heart rate 80 /min JANNETH LUIS [facility] 01-19-2024 09:34-0500 Respiratory rate 16 /min JANNETH LUIS [facility] 01-19-2024 09:34-0500 Systolic blood pressure 132 mm[Hg] JANNETH LUIS [facility] 12-02-2023 08:40-0500 Body height 180.34 cm Taniya Mary Grace Other [facility] Other 12-02-2023 08:40-0500 Body mass index (BMI) [Ratio] 45.1 kg/m2 Taniya Mary Grace Other [facility] Other 12-02-2023 08:40-0500 Body temperature 97.5 [degF] Taniya Mary Grace Other [facility] Other 12-02-2023 08:40-0500 Body weight 146.69 kg Taniya Mary Grace Other [facility] Other 12-02-2023 08:40-0500 Diastolic blood pressure 83 mm[Hg] Taniya Mary Grace Other [facility] Other 12-02-2023 08:40-0500 Respiratory rate 18 /min Taniya Mary Grace Other [facility] Other 12-02-2023 08:40-0500 SaO2% (BldA) [Mass fraction] 98 % Taniya Mary Grace Other [facility] Other 12-02-2023 08:40-0500 Systolic blood pressure 136 mm[Hg] Taniya Mary Grace Other [facility] Other 11-19-2021 15:30-0500 Body height 180.34 cm Nandini Pantoja Other [facility] Other 11-19-2021 15:30-0500 Body mass index (BMI) [Ratio] 41.56 kg/m2 Nandini Pantoja Other [facility] Other 11-19-2021 15:30-0500 Body weight 135.17 kg Nandini Pantoja Other [facility] Other 12-28-2021 15:30-0500 Diastolic blood pressure 76 mm[Hg] Nandini Pantoja Other [facility] Other 11-19-2021 15:30-0500 Systolic blood pressure 128 mm[Hg] Nandini Pantoja Other [facility] Other Encounters Encounter Date Encounter Type Care Provider Facility Start: 2025 End: 2025 Office outpatient visit 15 minutes Graham Dante DO Work Phone: [facility] Comment on above: Third trimester preg mat ([facility]); 36 weeks gestation of ([facility]) Start: 2025 End: 2025 Bamboo flowsheet Graham Dante DO Work Phone: [facility] Start: 2025 End: 2025 Bamboo flowsheet Graham Dante DO Work Phone: [facility] Start: 05-08-2025 End: 05-08-2025 Clinisync Result Encounter Graham Dante DO Work Phone: [facility] Unsolicited Start: 05-08-2025 End: 05-08-2025 Clinisync Result Encounter Graham Dante DO Work Phone: [facility] Unsolicited Start: 04-27-2025 End: 04-27-2025 Bamboo flowsheet Kelle BAE Work Phone: [facility] Start: 04-27-2025 End: 04-27-2025 Bamboo flowsheet Kelle BAE Work Phone: [facility] Start: 04-27-2025 End: 04-27-2025 Office outpatient visit 15 minutes Kelle BAE Work Phone: [facility] Comment on above: Third trimester preg mat; 34 weeks gestation of Start: 04-27-2025 End: 04-27-2025 ambulatory GRAHAM DANTE Not Available Start: 04-25-2025 End: 04-25-2025 Clinisync Result Encounter Graham Dante DO Work Phone: [facility] Unsolicited Start: 04-25-2025 End: 04-25-2025 Clinisync Result Encounter Graham Dante DO Work Phone: [facility] Unsolicited Start: 04-12-2025 End: 04-12-2025 Office outpatient visit 15 minutes Graham Dante DO Work Phone: [facility] Comment on above: Third trimester preg mat; 32 weeks gestation of ; size inconsistent with dates Start: 04-12-2025 End: 04-12-2025 ambulatory GRAHAM DANTE Not Available Start: 04-12-2025 End: 04-12-2025 Bamboo flowsheet Graham Dante DO Work Phone: [facility] Start: 04-12-2025 End: 04-12-2025 Bamboo flowsheet Graham Dante DO Work Phone: [facility] Start: 03-29-2025 End: 03-29-2025 ambulatory KELLE MOSLEY Not Available Start: 03-29-2025 End: 03-29-2025 Office outpatient visit 15 minutes Kelle BAE Work Phone: [facility] Comment on above: Herpes zoster with c omplication (Primary Dx); 30 weeks gestation of ; Third trimester Start: 03-29-2025 End: 03-29-2025 Bamboo flowsheet Kelle BAE Work Phone: [facility] Start: 03-29-2025 End: 03-29-2025 Bamboo flowsheet Kelle BAE Work Phone: [facility] Start: 03-15-2025 End: 03-15-2025 ambulatory GRAHAM DANTE Not Available Start: 03-15-2025 End: 03-15-2025 Office outpatient visit 15 minutes Graham Dante DO Work Phone: [facility] Comment on above: Third trimester preg mat; 28 weeks gestation of ; H/O herpes zoster virus Start: 03-15-2025 End: 03-15-2025 Bamboo flowsheet Graham Dante DO Work Phone: [facility] Start: 03-15-2025 End: 03-15-2025 Bamboo flowsheet Graham Dante DO Work Phone: [facility] Start: 03-06-2025 End: 03-06-2025 Clinisync Result Encounter Graham Dante DO Work Phone: [facility] Unsolicited Start: 03-06-2025 End: 03-06-2025 Clinisync Result Encounter Graham Dante DO Work Phone: [facility] Unsolicited Start: 02-06-2025 End: 02-06-2025 ambulatory GRAHAM DANTE Not Available Start: 01-23-2025 End: 01-23-2025 ambulatory KELLE MOSLEY Not Available Start: 01-04-2025 End: 01-04-2025 Office outpatient visit 15 minutes Kelle BAE Work Phone: [facility] Comment on above: Second trimester pre gnancy; 18 weeks gestation of ; Headache in , antepartum Start: 01-04-2025 End: 01-04-2025 ambulatory KELLE MOSLEY Not Available Start: 01-04-2025 End: 01-04-2025 Bamboo flowsheet Kelle BAE Work Phone: [facility] Start: 01-04-2025 End: 01-04-2025 Bamboo flowsheet Kelle BAE Work Phone: [facility] Start: 12-27-2024 End: 12-27-2024 Bamboo flowsheet Kelle BAE Work Phone: [facility] Start: 12-27-2024 End: 01-01-2025 Bamboo flowsheet Kelle BAE Work Phone: [facility] Start: 12-27-2024 End: 01-01-2025 Clinisync Result Encounter Kelle BAE Work Phone: [facility] External Department Unsolicited Start: 12-27-2024 End: 12-27-2024 Patient encounter procedure Kelle BAE Work Phone: [facility] Healthcare Start: 12-27-2024 End: 12-27-2024 Periodic preventive med est patient 18-39 yrs Kelle BAE Work Phone: [facility] Comment on above: 17 weeks gestation o f ; Second trimester ; Screening, , for anatomic survey; Exposure to STD; Vaginal discharge; Well woman exam with routine gynecological exam; Sinus congestion Start: 12-27-2024 End: 12-27-2024 ambulatory KELLE MOSLEY Not Available Start: 12-23-2024 End: 12-23-2024 Clinisync Result Encounter Graham Dante DO Work Phone: [facility] External Department Unsolicited Start: 12-23-2024 End: 12-23-2024 Clinisync Result Encounter Graham Dante DO Work Phone: [facility] External Department Unsolicited Start: 12-05-2024 End: 12-05-2024 Office outpatient visit 15 minutes Graham Dante DO Work Phone: [facility] Comment on above: 14 weeks gestation o f ; Second trimester ; Herpes zoster without complication Start: 12-05-2024 End: 12-05-2024 ambulatory GRAHAM DANTE Not Available Start: 12-05-2024 End: 12-05-2024 Bamboo flowsheet Graham Dante DO Work Phone: [facility] Start: 12-05-2024 End: 12-05-2024 Bamboo flowsheet Graham Dante DO Work Phone: [facility] Start: 12-02-2024 End: 12-02-2024 Emergency department patient visit Nic Estevez MD Work Phone: [facility] Comment on above: Abdominal cramping, bilateral lower quadrant (Primary Dx) Start: 11-25-2024 End: 11-25-2024 ambulatory JANNETH E LUIS Facility:[facility] Start: 11-25-2024 End: 11-25-2024 Patient encounter procedure JANNETH Mary Lou SMITH [facility] Start: 11-03-2024 End: 11-03-2024 Office outpatient visit 5 minutes [facility] Dante Nurse [facility] Comment on above: GA: 9w3d Start: 11-03-2024 End: 11-03-2024 ambulatory KELLE MOSLEY Not Available Start: 10-27-2024 End: 10-27-2024 ambulatory JANNETH Mary Lou SMITH Facility:[facility] Start: 10-27-2024 End: 10-27-2024 Patient encounter procedure JANNETH SMITH [facility] Start: 09-28-2024 End: 09-28-2024 Clinisync Result Encounter Graham Dante DO Work Phone: [facility] Unsolicited Start: 09-28-2024 End: 09-28-2024 Clinisync Result Encounter Graham Dante DO Work Phone: [facility] Unsolicited Start: 08-29-2024 End: 08-29-2024 Bamboo flowsheet Kelle BAE Work Phone: [facility] Start: 08-29-2024 End: 08-29-2024 Bamboo flowsheet Kelle Mosley PA Work Phone: [facility] Start: [...] Start: 2024 End: 2024 ambulatory Yonis R LOGANL Facility: [place] Start: 2024 End: 2024 Patient encounter procedure JANNETH SMITH [facility] [place] Start: 04-27-2024 End: 04-27-2024 ambulatory MD Shashi Ashton Work Phone: [facility] Work Phone: Start: 04-27-2024 End: 04-27-2024 Departed Referred MD Shashi Ashton Work Phone: [facility] Start: 04-27-2024 End: 04-27-2024 ambulatory Yonis R NILL Facility:[id number] Start: 03-08-2024 End: 03-08-2024 ambulatory Yonis R NILL Facility: [facility] Start: 03-08-2024 End: 03-08-2024 Patient encounter procedure Yonis R NILL [facility] Start: 02-09-2024 End: 02-09-2024 ambulatory Dieter REMY [place] Start: 02-09-2024 End: 02-09-2024 Patient encounter procedure Dieter REMY [facility] Start: 01-19-2024 End: 01-19-2024 ambulatory JANNETHLUBNA SMITH [place] Start: 01-19-2024 End: 01-19-2024 Lab Drop off JANNETH SMITH [facility] Start: 01-19-2024 End: 01-19-2024 ambulatory JANNETH SMITH Facility:[facility] Start: 01-19-2024 End: 01-19-2024 Patient encounter procedure JANNETH SMITH [facility] Start: 12-31-2023 ambulatory Yonis MIRANDA [facility] Start: 12-17-2023 End: 12-17-2023 ambulatory Taniya Mary Grace Other [facility] Other Start: 12-17-2023 Office outpatient vi sit 15 minutes Taniya Mary Grace [facility] Start: 12-07-2023 End: 12-07-2023 ambulatory Taniya Mary Grace Other [facility] Other Start: 12-07-2023 Telephone encounter Taniya Mary Grace [facility] Start: 12-02-2023 End: 12-02-2023 ambulatory Taniya Mary Grace Other [facility] Other Start: 12-02-2023 Office outpatient ne w 30 minutes Taniya Mary Grace [facility] Start: 04-17-2023 End: 04-17-2023 ambulatory SALMA DIAB . Facility: Start: 04-06-2023 End: 04-07-[address] SHASHI ASHTON . Facility: Start: 04-04-2023 Encounter for genera l adult medical examination without abnormal findings DR SHASHI ASHTON . [facility] Start: 04-03-2023 End: 04-04-[address] [...] Start: 03-18-2022 End: 03-18-2022 ambulatory UNKNOWN PROVIDER Facility:[facility] Start: 11-19-2021 End: 11-19-2021 ambulatory Nandini Pantoja Other [facility] Other Start: 11-19-2021 Office outpatient ne w 30 minutes Nandini Pantoja [facility] Procedures Date Procedure Procedure Detail Performing Clinician Start: 2025 Urnls dip stick/tabl et rgnt non-auto w/o micrscp Graham Dante DO Work Phone: Start: 05-08-2025 US OB BPP W NON-STRESS Graham Dante DO Work Phone: Start: 04-27-2025 Urnls dip stick/tabl et rgnt non-auto w/o micrscp Kelle BAE Work Phone: Start: 04-25-2025 [facility]H UA (CLEAN/CATCH) CHARGE ATTENDANT/MICRO IF IND. Graham Howell DO Work Phone: Start: 04-12-2025 Urnls dip stick/tabl et rgnt non-auto w/o micrscp Graham Hernandezo DO Work Phone: Start: 03-29-2025 Urnls dip stick/tabl et rgnt non-auto w/o micrscp Kelle BAE Work Phone: Start: 03-15-2025 Urnls dip stick/tabl et rgnt non-auto w/o micrscp Graham Howell DO Work Phone: Start: 03-06-2025 ALL CBC WITH AUTO DIFF Graham Howell DO Work Phone: Start: 01-04-2025 Urnls dip stick/tabl et rgnt non-auto w/o micrscp Kelle BAE Work Phone: Start: 12-27-2024 Urnls dip stick/tabl et rgnt non-auto w/o micrscp Kelle BAE Work Phone: Start: 12-27-2024 IGP,APTIMA HPV,AGE GDLN Kelle BAE Work Phone: Start: 12-27-2024 Microscopic observat ion [Identifier] in Cervix by Cyto stain Graham Howell DO Work Phone: Start: 12-23-2024 BOX TEST Graham garcia DO Work Phone: Start: 12-05-2024 Urnls dip stick/tabl et rgnt non-auto w/o micrscp Graham Hernandezo DO Work Phone: Start: 12-02-2024 Us uterus [...] 2) Shingles (RZV) Vaccine (1 of 2) [facility] Start: 07-09-2028 Screening for malign ant neoplasm of cervix [facility] Start: 12-27-2027 Screening for malign ant neoplasm of cervix Pap Smear [facility] Start: 07-24-2025 Influenza vaccination Influenz a Vaccine (Season Ended) [facility] Start: 05-17-2025 End: 05-17-2025 Patient encounter procedure 05/17/2025 1:50 PM EDT Routine [facility] [address] [place] [address] Kelle Mosley PA [address] [place], [place] [id number] [facility] Start: 2025 End: 2025 Patient encounter procedure [facility] Comment on above: Arrived Start: 2025 End: 2026 CULTURE, GROUP B STREP WITH SUSCEPTIBLITY CULTURE, GROUP B STREP WITH SUSCEPTIBLITY Lab Routine Third trimester ([facility]) Expected: 2025, Expires: 2026 [facility] Work Phone: Comment on above: Expected: 2025 , Expires: 2026 Start: 04-27-2025 End: 04-27-2025 Professional / ancillary services management [facility] Comment on above: size inconsist ent with dates Start: 04-27-2025 End: 04-27-2025 Patient encounter procedure [facility] Comment on above: Arrived Start: 04-12-2025 End: 04-12-2025 Patient encounter procedure [facility] Comment on above: Arrived Start: 04-12-2025 End: 08-13-2025 US for US OB follow up transabdominal approach Imaging Routine size inconsistent with dates Expected: 04/12/2025, Expires: 08/13/2025 [facility] Work Phone: Comment on above: Expected: 04/12/2025 , Expires: 08/13/2025 Start: 03-29-2025 End: 03-29-2025 Patient encounter procedure 03/29/2025 3:10 PM EDT Routine [facility] [address] [place] [place] [phone] Kelle Mosley, PA [address] [place] [address] [facility] Start: 03-08-2025 End: 03-08-2025 Patient encounter procedure 03/08/2025 3:30 PM EDT Routine [facility] [address] [place] [address] Kelle Mosley PA [address] [place] [address] [facility] Start: 02-06-2025 End: 02-06-2025 Patient encounter procedure 02/06/2025 3:10 PM EDT Routine [facility] [address] [place] [address] Graham Howell DO [address] [place] [address] [facility] Start: 01-23-2025 End: 01-23-2025 Professional / ancillary services management 01/23/2025 11:00 AM EST Ancillary Procedure [facility] [address] [place] [place] [id number] [facility] Start: 01-04-2025 End: 01-04-2025 [...] for anatomic survey Expected: 12/27/2024, Expires: 12/27/2025 [facility] Comment on above: Expected: 12/27/2024 , Expires: 12/27/2025 Start: 12-27-2024 End: 12-27-2024 Patient encounter procedure 12/27/2024 9:30 AM EST Routine [facility] [address] [place] [place] [phone] Kelle Mosley PA [address] [place] [address] Arrived [facility] Comment on above: Arrived Start: 12-05-2024 End: 12-05-2024 Patient encounter procedure [facility] Comment on above: Arrived Start: 11-28-2024 End: 11-28-2024 Patient encounter procedure 11/28/2024 9:30 AM EST Office Visit [facility] [address] [place] [phone] Kelle Mosley PA [address] [place] [address] [facility] Start: 11-03-2024 End: 11-03-2025 [...] first trimester Expected: 11/03/2024 (Approximate), Expires: 11/03/2025 [facility] Healthcare Comment on above: Expected: 11/03/2024 (Approximate), Expires: 11/03/2025 Start: 11-03-2024 End: 11-03-2024 ambulatory 11/03/2024 1:00 PM EST Initial [facility] [address] [place] [phone] [facility] Start: 11-03-2024 End: 11-03-2024 Professional / ancillary services management 11/03/2024 12:30 PM EST Ancillary Procedure [facility] [address] [place], [place] [address] [address] [facility] Start: 08-29-2024 End: 08-29-2024 Patient encounter procedure 08/29/2024 10:50 AM EDT Office Visit [facility] [address] [place] [address] Kelle Mosley PA [address] [place] [address] Arrived [facility] Comment on above: Arrived Start: 07-26-2024 End: 07-26-2024 Patient encounter procedure 07/26/2024 8:30 AM EDT Office Visit [facility] [address] [place] [phone] Kelle Mosley PA [address] [place] [address] Arrived [facility] Comment on above: Arrived Start: 07-24-2024 COVID-19 Vaccine ( season) COVID-19 Vaccine ( season) [facility] Start: 07-24-2024 Influenza vaccination Influenza Vacc ine (#1) [facility] Start: 06-23-2024 Influenza vaccination Flu vaccine (# 1) [facility] Start: 2023 Screening for malign ant neoplasm of cervix [facility] Start: 12-20-2021 Screening for malign ant neoplasm of cervix Pap smear [facility] Start: 2014 Screening for malign ant neoplasm of cervix [facility] Smear [facility] Start: 2012 DTaP/Tdap/Td vaccine (1 - Tdap) DTaP/Tdap/Td vaccine (1 - Tdap) [facility] Start: 2012 Hepatitis B vaccine (1 of 3 - 19+ 3-dose series) Hepatitis B vaccine (1 of 3 - 19+ 3-dose series) [facility] Start: 2011 Hepatitis C screening [facility] Start: 2011 Tetanus + diphtheria + acellular pertussis vaccine (product) Tdap Booster [facility] Start: 2008 HIV screening HIV Test [facility] Start: 2006 Varicella vaccine (1 of 2 - 13+ 2-dose series) Varicella vaccine (1 of 2 - 13+ 2-dose series) [facility] Start: 2005 Depression Screen Depression Screen [facility] Start: 1998 COVID-19 Vaccine (1) COVID-19 Vaccin e (1) [facility] Bacteria identified in Urine by Culture Urine culture Microbiology Routine Missed menses Ordered: 11/03/2024 [facility] Comment on above: Ordered: 11/03/2024 CBC W Auto Different ial panel - Blood CBC and differential Lab Routine Missed menses , unspecified gestational age Ordered: 11/03/2024 [facility] Comment on above: Ordered: 11/03/2024 CHLAMYDIA TRACHOMATI S (GENITO/STI) CHLAMYDIA TRACHOMATIS (GENITO/STI) Lab Routine Exposure to STD Ordered: 12/27/2024 [facility] Comment on above: Ordered: 12/27/2024 Cytology Cervical or vaginal smear or scraping study Pap Smear Pathology and Cytology Routine Well woman exam with routine gynecological exam Ordered: 12/27/2024 [facility] Comment on above: Ordered: 12/27/2024 EKG 12 Lead EKG 12 Lead ECG STAT 12/02/2024 8:08 PM [facility] Hemoglobin A1c/Hemoglobin.total in Blood Hemoglobin A1c Lab Routine Missed menses , unspecified gestational age Ordered: 11/03/2024 [facility] Comment on above: Ordered: 11/03/2024 Hepatitis B virus surface Ag [Presence] in Serum or Plasma by Immunoassay Hepatitis B surface antigen Lab Routine Missed menses , unspecified gestational age Ordered: 11/03/2024 [facility] Comment on above: Ordered: 11/03/2024 Hepatitis C virus Ab [Presence] in Serum or Plasma by Immunoassay Hepatitis C antibody Lab Routine Missed menses , unspecified gestational age Ordered: 11/03/2024 [facility] Comment on above: Ordered: 11/03/2024 HIV-1/HIV-2 antigen/antibody combination immunoassay HIV-1 and HIV-2 antibodies Lab Routine Missed menses , unspecified gestational age Ordered: 11/03/2024 [facility] Comment on above: Ordered: 11/03/2024 Human papilloma viru s DNA [Presence] in Unspecified specimen by Probe with amplification HPV DNA probe, amplified Microbiology Routine Well woman exam with routine gynecological exam Ordered: 12/27/2024 [facility] Comment on above: Ordered: 12/27/2024 Neisseria gonorrhoea e DNA [Presence] in Unspecified specimen by DAYDAY with probe detection Neisseria gonorrhea DNA probe, direct Lab Routine Exposure to STD Ordered: 12/27/2024 [facility] Comment on above: Ordered: 12/27/2024 Reagin Ab [Presence] in Serum by RPR RPR Lab Routine Missed menses , unspecified gestational age Ordered: 11/03/2024 [facility] Comment on above: Ordered: 11/03/2024 Rubella antibody, IgG Rubella an tibody, IgG Lab Routine Missed menses , unspecified gestational age Ordered: 11/03/2024 [facility] Comment on above: Ordered: 11/03/2024 SURESWAB(R) ADVANCED VAGINITIS PLUS, TMA SURESWAB(R) ADVANCED VAGINITIS PLUS, TMA Pathology and Cytology Routine Vaginal discharge Ordered: 12/27/2024 [facility] Comment on above: Ordered: 12/27/2024 Immunizations Immunization Date Immunization Notes Care Provider Fa jessica 10-28-2022 influenza virus vaccine, unspecified formulation JANNETH SMITH [facility] 04-15-2021 SARS-CoV-2 (COVID-19 ) mRNA-1273 vaccine JANNETH SMITH [facility] [place] 03-18-2021 SARS-CoV-2 (COVID-19 ) mRNA-1273 vaccine JANNETH LUIS [facility] [place] 03-21-2014 influenza virus vaccine, unspecified formulation Estella Guerrero MD Work Phone: [facility] Payers Date Payer Category Payer Medicaid [employer] [place] [employer] [id number] 2017-Present [address] [address] [id number] 2017 Medicaid (Managed Care) [facility] [employer] [id number] 2017 Unknown [facility] [employer] [id number] 2017-Present [id number] 1993 Unknown [id number] 2.16.840.1.677310.3.579.2. 732 1993 Unknown [id number] 2.16.840.1.288273.3.579.2. 593 1993 Unknown [id number] 2.16.840.1.978698.3.579.2. 593 1993 Unknown [id number] 2.16.840.1.819017.3.579.2. 593 1993 Unknown [id number] 2.16.840.1.583653.3.579.2. 593 1993 Unknown [id number] 2.16.840.1.810056.3.579.2. 593 1993 Unknown [id number] 2.16.840.1.213065.3.579.2. 593 1993 Unknown [id number] 2.16.840.1.338084.3.579.2. 593 1993 Unknown [id number] 2.16.840.1.126112.3.579.2. 593 1993 Unknown [id number] 2.16.840.1.161309.3.579.2. 593 1993 Unknown [id number] 2.16.840.1.609264.3.579.2. 593 1993 Unknown [id number] 2.16.840.1.526881.3.579.2. 593 1993 Unknown [id number] 2.16.840.1.772040.3.579.2. 593 1993 Unknown [id number] 2.16.840.1.593374.3.579.2. 1259 1993 Unknown [id number] 2.16.840.1.069652.3.579.2. 1259 1993 Unknown [id number] 2.16.840.1.856473.3.579.2. 1259 1993 Unknown [id number] 2.16.840.1.878872.3.579.2. 173 1993 Unknown [id number] 2.16.840.1.221801.3.579.2. 72 1993 Unknown [id number] 2.16.840.1.138269.3.579.2. 72 1993 Unknown [id number] 2.840.1.677286.3.579.2. 72 1993 Unknown [id number] 2.16.840.1.222916.3.579.2. 727 1993 Unknown [id number] 2.16.840.1.068590.3.579.2. 72 1993 Unknown [id number] 2.16840.1.368745.3.579.2. 727 1993 Unknown [id number] 2.16840.1.401189.3.579.2. 72 1993 Unknown [id number] 2.16.840.1.322240.3.579.2. 727 1993 Unknown [id number] 2.16.840.1.259734.3.579.2. 72 1993 Unknown [id number] 2.16.840.1.078814.3.579.2. 1259 1993 Unknown [id number]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
== END 2025-05-10 21:00 | disposition home or self-care (01) ==
LOC: LAB 20:59
PROVIDERS: PCP Family Medicine; Visit Provider Obstetrics & Gynecology
DX: Z34.93 Encounter for supervision of normal pregnancy, unspecified, third trimester (principal); Z3A.36 36 weeks gestation of pregnancy
CPT/HCPCS: 87081

== ENCOUNTER 2025-05-11 15:55 | Outpatient (OUT) | payer OTHER, SELFPAY ==
--- OUTSIDE RECORDS SUMMARY | 2015-04-06 01:53 | XMS_ITS | Encounter Summary ---
Author Organization [facility] Address [address] [place] [address] Care Team Providers Care Consulting Practice Manager Name Role Phone Shashi Hargrove MD Primary Care Provider [phone] Encounter Details Date Type Department Care Team (Late st Contact Info) Description 04/06/2015 1:53 AM EDT Hospital Encounter MTH PRE ADMIT [address] [phone] Abdi Mcgill MD [address] [facility] [address] [place] [address] Social History Tobacco Use Types Packs/Day Years [...] UA YELLOW YEL 04/06/2015 12:25 PM EDT [facility] Turbidity UA CLEAR CLEAR 04/06/2015 12:25 PM EDT [facility] Glucose, Ur NEGATIVE NEG 04/06/2015 12:25 PM EDT [facility] Bilirubin Urine NEGATIVE NEG 5 12:25 PM EDT [facility] Ketones, Urine NEGATIVE NEG 04/06/2015 12:25 PM EDT [facility] Specific [place], UA >1.030(H) 1.010 - 1.020 04/06/2015 12:25 PM EDT [facility] Urine Hgb NEGATIVE NEG 04/06/2015 12:25 PM EDT [facility] pH, UA 6.0 5.0 - 9.0 04/06/2015 12:25 PM EDT [facility] Protein, UA NEGATIVE NEG 04/06/2015 12:25 PM EDT [facility] Urobilinogen, Urine Normal NORM 04/06/2015 12:25 PM EDT [facility] Nitrite, Urine NEGATIVE NEG 04/06/2015 12:25 PM EDT [facility] Leukocyte Esterase, Urine TRACE(A) NEG 04/06/2015 12:25 PM EDT [facility] Urinalysis Comments NOT REPORTED [facility] - 04/06/2015 12:25 PM EDT [facility] WBC, UA 0 TO 2 0 - 5 /HPF 04/06/2015 12:25 PM EDT [facility] RBC, UA None 0 - 2 /HPF 04/06/2015 12:25 PM EDT [facility] Casts UA NOT REPORTED 0 - 2 /LPF [facility] Crystals, UA NOT REPORTED NONE /HPF [facility] Epithelial Cells, UA 0 TO 2 0 - 25 /HPF 04/06/2015 12:25 PM EDT [facility] Renal Epithelial, UA NOT REPORTED 0 /HPF [facility] Bacteria, UA NOT REPORTED NONE [facility] Mucus, UA NOT REPORTED NONE [facility] Trichomonas NOT REPORTED NONE [facility] Amorphous, UA 1+(A) NONE 04/06/2015 12:25 PM EDT [facility] Comment: Performed at [address] [place] [address] ([phone] Other Observations UA NOT REPORTED NREQ [facility] Yeast, UA NOT REPORTED NONE [facility] URINE SPECIMEN / Unknown 04/06/2015 11:11 AM EDT 04/06/2015 11:12 AM EDT us Abdi Mcgill MD URINE ORDERABLES Final Result [facility] [address] [place] [id number], [facility] [phone] [facility] * TYPE AND SCREEN (04/06/2015 11:11 AM EDT) Expiration Date 04/13/2015 5 11:47 AM EDT [facility] Arm Band Number [id number] 11:47 AM EDT [facility] ABO/Rh B POSITIVE 04/06/2015 11:47 AM EDT [facility] Antibody Screen NEGATIVE 5 12:19 PM EDT [facility] Comment: Performed at [address] [place] [address] ([phone] Blood (substance) BLOOD SPECIMEN / Unknown 04/06/2015 11:11 AM EDT 04/06/2015 11:12 AM EDT Abdi Mcgill MD BLOOD BANK TEST ORDERABLES Fi nal Result Performing Organization Address [facility]/ZIP Co de Phone Number [facility] [address] [place] [address] [facility] * HCG Qualitative, Serum (04/06/2015 11:11 AM EDT) Preg, Serum NEGATIVE NEG 04/06/2015 12:33 PM EDT [facility] Comment: Performed at [address] [place], [place] [id number] ([phone] Blood (substance) BLOOD SPECIMEN / Unknown 04/06/2015 11:11 AM EDT 04/06/2015 11:12 AM EDT Abdi Mcglil MD CHEMISTRY ORDERABLES Final Re sult Performing Organization Address [facility] Co de Phone Number [facility] [address] [place] [address] [facility] * (ABNORMAL) CBC auto differential (04/06/2015 11:11 AM EDT) [facility] WBC 6.9 4.5 - 13.5 k/uL 04/06/2015 11:31 AM EDT [facility] RBC 4.36 4.0 - 5.2 m/uL 04/06/2015 11:31 AM EDT [facility] Hemoglobin 12.6 12.0 - 16.0 g/dL 04/06/2015 11:31 AM EDT [facility] Hematocrit 37.5 36 - 46 % 04/06/2015 11:31 AM EDT [facility] MCV 86.2 80 - 100 fL 04/06/2015 11:31 AM EDT [facility] MCH 28.9 26 - 34 pg 04/06/2015 11:31 AM EDT [facility] MCHC 33.6 31 - 37 g/dL 04/06/2015 11:31 AM EDT [facility] RDW 13.8 12.1 - 15.2 % 04/06/2015 11:31 AM EDT [facility] Platelets 277 140 - 450 k/uL 04/06/2015 11:31 AM EDT [facility] MPV NOT REPORTED 6.0 - 12.0 fL [facility] Differential Type NOT REPORTED [facility] Seg Neutrophils 66(H) 34 - 64 % 5 11:31 AM EDT [facility] Lymphocytes 21(L) 25 - 45 % 04/06/2015 11:31 AM EDT [facility] Monocytes % 10 0 - 12 % 04/06/2015 11:31 AM EDT [facility] Eosinophils % 3 0 - 8 % 04/06/2015 11:31 AM EDT [facility] Basophils % 0 0 - 2 % 04/06/2015 11:31 AM EDT [facility] Neutrophils Absolute 4.50 1.8 - 7.7 k/uL 04/06/2015 11:31 AM EDT [facility] Lymphocytes Absolute 1.40 1.0 - 4.8 k/uL 04/06/2015 11:31 AM EDT [facility] Monocytes Absolute 0.70 0.0 - 1.0 k/uL 04/06/2015 11:31 AM EDT [facility] Eosinophils Absolute 0.20 0.0 - 0.4 k/uL 04/06/2015 11:31 AM EDT [facility] Basophils Absolute 0.00 0.0 - 0.2 k/uL 04/06/2015 11:31 AM EDT [facility] Comment: Performed at [address] [place] [address] ([phone] WBC Morphology NOT REPORTED [facility] RBC Morphology NOT REPORTED [facility] Platelet Estimate NOT REPORTED [facility] BLOOD SPECIMEN / Unknown 04/06/2015 11:11 AM EDT 04/06/2015 11:12 AM EDT us Abdi Mcgill MD HEMATOLOGY ORDERABLES Final R esult [facility] [address] [place] [address], [facility] [phone] [facility] documented in this encounter Visit Diagnoses Not on filedocumented in this encounter Care Teams Consulting Practice Manager Relationship Specialty Start Date End Date Shashi Hargrove MD [address] [place] [address] PCP - General 04/05/15 documented as of this encounter
--- OUTSIDE RECORDS SUMMARY | 2024-12-06 05:30 | XMS_ITS ---
Author Organization [facility] Address [address] [place] [address] Care Team Providers Care Project Production Engineer Name Role Phone Dr. Collins Mei Primary Care Provider [phone] Caryn Roth [phone] REASON FOR VISIT PROPHY Encounters Encounter Location Date Provider Diagnosis [facility] [address] [place] [address] 12/06/2024 Caryn Joyner Plan Of Treatment No Information Progress Notes * FREEMANASHLEE CHINCHILLANDOB:1995 ( 30 yo F)Acc No.[id number]:12/06/2024 Patient: ROSALIE SEGURA Provider: Melody Joyner :1995 A ge:29 Y S ex:Female Date:12/06/2024 Address:[address] [place], [place] [id number] Pcp:Dr. Collins Mei Subjective: * Chief Complaints: * 1 . PROPHY. * Medical History: Objective: * Vitals: Assessment: Plan: * Treatment: * Images: * Electronic signature of Farhan Joyner on 05/11/2025 at 03:58 PM EDT Sign off status: Pending * Provider: Melody Joyner Date: 0 12/06/2024 Generated for Hardiki ng/Faxing/eTransmitting on: 0 05/11/2025 03:58 PM EDT
--- OUTSIDE RECORDS SUMMARY | 2024-12-08 04:09 | XMS_ITS ---
Author Organization The [facility] in [place] Address [address] [place] [address] Care Team Providers Care House Mover Supervisor Name Role Phone Ethan Hargrove Primary Care Provider REASON FOR VISIT pink eye Medications Medication SIG (Take, Route, Frequency, Duration) Notes Start Date End Date Status Czckeeeg-Jxlgueieg-Fufftbr h 3.5-36074-1.1 1 drop into affected eye Ophthalmic Four times a day for 7 days 12/08/2024 Active Encounters Encounter Location Date Provider Diagnosis [address] [place] [address] 12/08/2024 Ethan Hargrove Plan Of Treatment Medication Medication Name Sig Start Date Stop Date Notes Kgilwnba-Pmitpjghx-Xumvrwjd 3.5-19696-9.1 1 drop into affected eye Ophthalmic Four times a day for 7 days 12/08/2024 Progress Notes * Jocelyn FREEMAN VDOB:1995 (29 yo F)Acc No.[id number]:12/08/2024 Patient: Magaly JAIMES Jocelyn Stafford :1995 A ge:29 Y S ex:Female Address:[address] [place] [address], [place], [address] * Refills Start Ncmjsmyx-Btwhechcf-Usuzyuoc Suspension, 3.5-92166-2.1, Ophthalmic, 1.4 ML, 1 drop into affected eye, Four times a day, 7 days, Refills=1 * true * Date: Generated for Printi ng/Faradhag/Rayitting on: 0 05/11/2025 03:59 PM EDT
--- OUTSIDE RECORDS SUMMARY | 2024-12-12 07:55 | XMS_ITS ---
Author Organization The [facility] in [place] Address [address] [place] [address] Care Team Providers Care Food Broker Name Role Phone Ethan Hargrove Primary Care Provider REASON FOR VISIT sinus infection- not better Medications Medication SIG (Take, Route, Fr equency, Duration) Notes Start Date End Date Status Cephalexin 500 MG 2 tabs Orally bid for 10 days Active Encounters Encounter Location Date Provider Diagnosis [facility] [address] [place] [address] 12/12/2024 Ethan Hargrove Acute non-recurrent sinusitis, unspecified [...] * Jocelyn FREEMAN VDOB:1995 (29 yo F)Acc No.[id number]:12/12/2024 Patient: Magaly JAIMES Jocelyn Rivera :1995 A ge:29 Y S ex:Female Address:[address] [place] [address], [address] * Refills Refill Cephalexin Tablet, 500 MG, Orally, 40 Tablet, 2 tabs, bid, 10 days * true * Date: Generated for Printi ng/Faxing/eTransmitting on: 0 05/11/2025 03:58 PM EDT
--- OUTSIDE RECORDS SUMMARY | 2025-01-13 10:40 | XMS_ITS ---
Author Organization [facility] Address [address] [place] [address] Care Team Providers Care Metallurgist Helper Name Role Phone Dr. Collins Mei Primary Care Provider REASON FOR VISIT FILLING Encounters Encounter Location Date Provider Diagnosis [facility] [address] [place] [address] 01/13/2025 Collins Mei Plan Of Treatment No Information Progress Notes * ASHLEE FREEMANNDOB:1995 ( 30 yo F)Acc No.[id number]:01/13/2025 Patient: ROSALIE SEGURA Provider: Laura Mei DDS :1995 A ge:29 Y S ex:Female Date:01/13/2025 Address:[address] [place], [place] [id number] Subjective: * Chief Complaints: * 1 . FILLING. * Medical History: Objective: * Vitals: Assessment: Plan: * Treatment: * Images: * Electronic signature of Dr. Collins Mei , DMD on 05/11/2025 at 03:59 PM EDT Sign off status: Pending * Provider: Laura Mei DDS Date: 01/13/2025 Generated for Jennifer ng/Faradhag/eTransmitting on: 0 05/11/2025 03:59 PM EDT
--- OUTSIDE RECORDS SUMMARY | 2025-03-10 10:15 | XMS_ITS ---
Author Organization [facility] Address [address] [place] [address] Care Team Providers Care Associate Data Scientist Name Role Phone Dr. Collins Mei Primary Care Provider [phone] Caryn Roth [phone] REASON FOR VISIT PROPHY Encounters Encounter Location Date Provider Diagnosis [facility] [address] [place] [address] 03/10/2025 Caryn Joyner Plan Of Treatment No Information Progress Notes * FREEMANASHLEE CHINCHILLANDOB:1995 ( 30 yo F)Acc No.[id number]:03/10/2025 Patient: ROSALIE SEGURA Provider: Melody Joyner :1995 A ge:29 Y S ex:Female Date:03/10/2025 Address:[address] [place], [place] [phone] Pcp:Dr. Collins Mei Subjective: * Chief Complaints: * 1 . PROPHY. * Medical History: Objective: * Vitals: Assessment: Plan: * Treatment: * Images: * Electronic signature of Farhan Joyner on 05/11/2025 at 03:59 PM EDT Sign off status: Pending * Provider: Melody Joyner Date: 03/10/2025 Generated for Hardiki ng/Faxing/eTransmitting on: 0 05/11/2025 03:59 PM EDT
--- OUTSIDE RECORDS SUMMARY | 2025-04-25 12:34 | XMS_ITS ---
Author Organization [facility] [place] Address [address] [place] [address] Care Team Providers Care Light Rail Train Operator Name Role Phone Ethan Hargrove Primary Care Provider REASON FOR VISIT UA Encounters Encounter Location Date Provider Diagnosis [facility] [address] [place] [address] 04/25/2025 Ethan Hargrove Plan Of Treatment No Information Progress Notes * Jocelyn FREEMAN VDOB:1995 (29 yo F)Acc No.[id number]:04/25/2025 Patient: Magaly TURNERJocelyn CHINCHILLA V :1995 A ge:29 Y S ex:Female Address:[address] [place] [address], [address] * true * Date: Generated for Jennifer wren/Ted/eTransmitting on: 0 05/11/2025 03:58 PM EDT
--- OUTSIDE RECORDS SUMMARY | 2025-04-27 13:00 | XMS_ITS | Encounter Summary ---
Author Organization [facility] Address [address] [facility] [place] [address] Care Team Providers Care Geoduck Diver Name Role Phone Shashi Hargrove MD Primary Care Provider [phone] Reason for Visit * Reason Comments Routine Visit Encounter Details Date Type Department Care Team ([facility] Contact Info) Description 04/27/2025 1:00 PM EDT Routine [facility] BCP OB [address] [place] [address] Kelle Mosley PA [address] [facility] [address] [place], [facility] Third trimester ([facility]); 34 weeks gestation of ([facility]) Social History Tobacco Use Types Packs/Day Years [...] EDT Reason for Appointment: Patient ID: Jocelyn Rodríguez is a 29 y.o. female who [...] PM EDT Routine [facility] BCP OB [address] [place] [address] Kelle Mosley PA [address] [place], [place] [id number] documented as of this encounter Procedures Procedure Name Priority Date/Time Associated Diagnosis Comments POCT URINALYSIS DIPSTICK Routine 04/27/2025 1:20 PM EDT Third trimester ([facility]) documented in this encounter Results * (ABNORMAL) [...] this encounter Visit Diagnoses Diagnosis Third trimester ([facility]) state, incidental 34 weeks gestation of ([facility]) documented in this encounter Care Teams Geoduck Diver Relationship Specialty Start Date End Date Shashi Hargrove MD [address] [facility] [place] [address] PCP - General Family Medicine 05/11/23 documented as of this encounter
--- OUTSIDE RECORDS SUMMARY | 2025-04-27 15:00 | XMS_ITS | Encounter Summary ---
Author Organization [facility] Address [address] [place] [address] Care Team Providers Care Clothing Busheler Name Role Phone Shashi Hargrove MD Primary Care Provider [phone] Encounter Details Date Type Department Care Team (Latest Contact Info) Description 04/27/2025 3:00 PM EDT Ancillary Procedure [facility] [address] [facility] [place] [address] size inconsistent with dates ([facility]) Social History Tobacco Use Types Packs/Day Years [...] Routine [facility] BCP OB [address] [place] [address] Kelle Mosley PA [address] [place], [facility]11 documented as of this encounter Procedures Procedure Name Priority Date/Time Associated Diagnosis Comments US OB FOLLOW UP TRANSABDOMINAL APPROACH Routine 04/27/2025 2:58 PM EDT size inconsistent with dates ([facility]) documented in this encounter Results * US [...] II, MD, PHD at 28-Apr-2025 08:26:54 AM [facility] Procedure Note Tato Amaya MD - [...] signed by TATO AMAYA II, MD, PHD [id number] 08:26:54 AM [facility] us Graham Dante DO IMG OB US PROCEDURES Final Resul t documented in this encounter Visit Diagnoses Diagnosis size inconsistent with dates ([facility]) documented in this encounter Care Teams Clothing Busheler Relationship Specialty Start Date End Date Shashi Hargrove MD [address] [place] [address] PCP - General Family Medicine 05/11/23 documented as of this encounter
--- OUTSIDE RECORDS SUMMARY | 2025-05-10 14:30 | XMS_ITS | Encounter Summary ---
Author Organization [facility] Address [address] [facility] [place] [address] Care Team Providers Care Cumulative Effects Analyst Name Role Phone Shashi Hargrove MD Primary Care Provider [phone] Reason for Visit * Reason Comments Routine Visit Encounter Details Date Type Department Care Team ([facility] Contact Info) Description 2025 2:30 PM EDT Routine [facility] [address] [facility] [place] [phone] Graham Howell, [address] [facility] [place] [address] Third trimester ([facility]); 36 weeks gestation of ([facility]) Social History Tobacco Use Types Packs/Day [...] abdominal pain 05/27/2023 Scoliosis 05/27/2023 Vaginal delivery ([facility]) 09/06/2014 Encounter for weight management 06/27/2024 [...] nursing note reviewed. Exam conducted with a z os mainframe systems programmer present. Vitals: Estimated body mass index is 47.06 kg/m?? as calculated from the following: Height as of 07/26/24: 5' 10 . Weight as of this encounter: 328 lb. BP: 132/86 Patient's last menstrual period was 08/29/2024. ASSESSMENT & PLAN ICD-10-CM 1. Third trimester ([facility]) Z34.93 POCT urinalysis dipstick manually resulted CULTURE, GROUP B STREP WITH SUSCEPTIBLITY CULTURE, GROUP B STREP WITH SUSCEPTIBLITY 2. 36 weeks gestation of ([facility]) Z3A.36 Return OB: Patient presents today [...] PM EDT Routine [facility] BCP OB [address] [facility] [place] [address] Kelle Mosley PA [address] [place] [address] Scheduled Orders Name Type Priority Associated Diagnoses Orde r Schedule CULTURE, GROUP B STREP WITH SUSCEPTIBLITY Lab Routine Third trimester ([facility]) Expected: 2025, Expires: 2026 documented as of this encounter Procedures Procedure Name Priority Date/Time Associated Diagnosis Comments POCT URINALYSIS DIPSTICK Routine 2025 3:07 PM EDT Third trimester ([facility]) documented in this encounter Results * [...] encounter Visit Diagnoses Diagnosis Third trimester ([facility]) state, incidental 36 weeks gestation of ([facility]) documented in this encounter Care Teams Cumulative Effects Analyst Relationship Specialty Start Date End Date Shashi Hargrove MD [address] [place] [address] PCP - General Family Medicine 05/11/23 documented as of this encounter
--- OUTSIDE RECORDS SUMMARY | 2025-05-11 15:58 | XMS_ITS | Encounter Summary ---
Author Organization [facility] Address [address] [place] [address] Care Team Providers Care Nurse Advisor Name Role Phone Shashi Hargrove MD Primary Care Provider [phone] Encounter Details Date Type Department Care Team ([facility] Contact Info) Description 05/31/2024 Abstract [facility] OB [address] [facility] [place] [phone] Graham Howell DO [address] [place] [address] Dr Neisha Dill, [place] [address] Social History Tobacco Use Types Packs/Day Years [...] Upcoming Encounters Date Type Department Care Team ([facility] Contact Info) Description 05/17/2025 1:50 PM EDT Routine [facility] OB [address] [facility] [place] [address] Kelle Mosley PA [address] [facility] [address] [place], [facility]11 documented as of this encounter Visit Diagnoses Not on filedocumented in this encounter Care Teams Nurse Advisor Relationship Specialty Start Date End Date Shashi Hargrove MD [address] [place] [address] PCP - General Family Medicine 05/11/23 documented as of this encounter
--- OUTSIDE RECORDS SUMMARY | 2025-05-11 15:58 | XMS_ITS | Encounter Summary ---
Author Organization [facility] Address [address] [facility] [place] [address] Care Team Providers Care Speech Teacher Name Role Phone Shashi Hargrove MD Primary Care Provider [phone] Encounter Details Date Type Department Care Team ([facility] Contact Info) Description 05/03/2023 Abstract [facility] OB [address] [facility] [facility] [facility] [phone] Kelle Mosley PA [address] [place] [address] Dr [place], [place] [address] Social History Tobacco Use Types Packs/Day Years [...] Upcoming Encounters Date Type Department Care Team ([facility] Contact Info) Description 05/17/2025 1:50 PM EDT Routine [facility] OB [address] [place] [address] [place] [address] Kelle Mosley PA [address] [place] [address] [place] [id number] documented as of this encounter Visit Diagnoses Not on filedocumented in this encounter Care Teams Speech Teacher Relationship Specialty Start Date End Date Shashi Hargrove MD [address] [place] [phone] PCP - General Family Medicine 05/11/23 documented as of this encounter
--- OUTSIDE RECORDS SUMMARY | 2025-05-11 15:58 | XMS_ITS | Encounter Summary ---
Author Organization [facility] Address [address] [place] [address] Care Team Providers Care Equipment Tester Name Role Phone Shashi Hargrove MD Primary Care Provider [phone] Encounter Details Date Type Department Care Team ([facility] Contact Info) Description 05/31/2024 Abstract [facility] OB [address] [facility] [place] [phone] Graham Howell DO [address] [place] [address] Dr Neisha Dill, [place] [address] Social History Tobacco Use Types Packs/Day Years [...] Upcoming Encounters Date Type Department Care Team ([facility] Contact Info) Description 05/17/2025 1:50 PM EDT Routine [facility] OB [address] [facility] [place] [address] Kelle Mosley PA [address] [facility] [address] [place], [facility]11 documented as of this encounter Visit Diagnoses Not on filedocumented in this encounter Care Teams Equipment Tester Relationship Specialty Start Date End Date Shashi Hargrove MD [address] [place] [address] PCP - General Family Medicine 05/11/23 documented as of this encounter
--- OUTSIDE RECORDS SUMMARY | 2025-05-11 15:58 | XMS_ITS | Clinical Summary ---
Author Organization [facility] Address [address] [place] [address] Care Team Providers Care Sap Bpc Architect Name Role Phone Shashi Hargrove MD Primary Care Provider [phone] Allergies No known active allergies Medications sertraline [...] Comment SPECIMEN RECEIVED 12/21/2018 7:08 AM EST [facility] CERVICAL SWAB / Unknown 12/20/2018 6:10 PM EST 12/20/2018 6:10 PM EST Abdi Mcgill MD PATHOLOGY/CYTOLOGY ORDERABLES Final Result Performing Organization Address City/[facility]/ZIP Co de Phone Number [facility] [address] [place] [address], [facility] [phone] [address], [facility] [phone] * HIV Rapid 1&2 (02/21/2014 2:51 PM EDT) [facility] Rapid HIV 1&2 NONREACTIVE NR 02/22/2014 2:29 PM EDT [facility] Comment: Interpretation: The presence of antibody [...] characteristics of this test were determined by [facility]. It has not been cleared or approved by the U.S. Food and Drug Administration. The FDA has determined that such clearance is not necessary. Performed at [address] [place] [address] ([phone] 02/21/2014 2:51 PM EDT 02/21/2014 2:51 PM EDT Rachel Mejía TRANSMISSION SYSTEM OPERATOR - CNM IMMUNOLOGY ORDERABLES Final Result Performing Organization Address City/[facility]/ZIP Co de Phone Number [facility] [address] [place] [address], [facility] [phone] [facility] from Last 3 Months or Most Recently Relevant to Health Maintenance Insurance [facility] Advance Directives * Full Code (Latest Code Status on File) Date Activated Date Inactivated Comments 04/10/2015 8:54 AM 04/10/2015 5:11 PM * Full Code Date Activated Date Inactivated Comments 09/06/2014 12:25 AM 09/07/2014 4:46 PM * Full Code Date Activated Date Inactivated Comments 09/04/2014 3:03 PM 09/06/2014 12:25 AM Care Teams Sap Bpc Architect Relationship Specialty Start Date End Date Shashi Hargrove MD [address] [place] [address] PCP - General 04/05/15
--- OUTSIDE RECORDS SUMMARY | 2025-05-11 15:58 | XMS_ITS | Encounter Summary ---
Author Organization [facility] Address [address] [place] [address] Care Team Providers Care Fire Control System Installer Name Role Phone Shashi Hargrove MD Primary Care Provider [phone] Encounter Details Date Type Department Care Team ([facility] Contact Info) Description 06/04/2023 Abstract [facility] OB [address] [facility] [place] [phone] Graham [place] DO [address] [place] [address] Dr Neisha Dill, [place] [address] Social History Tobacco Use Types Packs/Day Years [...] Encounters Date Type Department Care Team ([facility] Contact Info) Description 05/17/2025 1:50 PM EDT Routine [facility] OB [address] [facility] [place] [address] Kelle Mosley PA [address] [facility] [address] [place], [facility]11 documented as of this encounter Visit Diagnoses Not on filedocumented in this encounter Care Teams Fire Control System Installer Relationship Specialty Start Date End Date Shashi Hargrove MD [address] [place] [address] PCP - General Family Medicine 05/11/23 documented as of this encounter
--- OUTSIDE RECORDS SUMMARY | 2025-05-11 15:58 | XMS_ITS | Encounter Summary ---
Author Organization [facility] Address [address] [place] [address] Care Team Providers Care Lastex Thread Winder Name Role Phone Shashi Hargrove MD Primary Care Provider [phone] Encounter Details Date Type Department Care Team ([facility] Contact Info) Description 06/02/2024 Abstract [facility] OB [address] [facility] [place] [phone] Graham [place] DO [address] [place] [address] Dr Neisha Dill, [place] [address] Social History Tobacco Use Types Packs/Day Years [...] Upcoming Encounters Date Type Department Care Team ([facility] Contact Info) Description 05/17/2025 1:50 PM EDT Routine [facility] OB [address] [facility] [place] [address] Kelle Mosley PA [address] [facility] [address] [place], [facility]11 documented as of this encounter Visit Diagnoses Not on filedocumented in this encounter Care Teams Lastex Thread Winder Relationship Specialty Start Date End Date Shashi Hargrove MD [address] [place] [address] PCP - General Family Medicine 05/11/23 documented as of this encounter
--- OUTSIDE RECORDS SUMMARY | 2025-05-11 15:59 | XMS_ITS | Encounter Summary ---
Author Organization [facility] Address [address] [facility] [place] [address] Care Team Providers Care Mice Raiser Name Role Phone Shashi Hargrove MD Primary Care Provider [phone] Encounter Details Date Type Department Care Team ([facility] Contact Info) Description 01/10/2025 Orders Only [facility] [address] [facility] [address] Aleida Colon LPN [address] [place] [phone] Social History Tobacco Use Types Packs/Day Years [...] Upcoming Encounters Date Type Department Care Team ([facility] Contact Info) Description 05/17/2025 1:50 PM EDT Routine [facility] [address] [facility] [place] [address] Kelle Mosley PA [address] [facility] [address] [place], [facility]11 documented as of this encounter Procedures Procedure Name Priority Date/Time Associated Diagnosis Comments PAP SMEAR Routine 12/27/2024 12:00 AM EST documented in this encounter Results * Pap Smear (12/27/2024 12:00 AM EST) Swab Cervical swab / Unknown [facility] CYTOLOGY ORDERABLES Final Re sult EXTERNAL LAB documented in this encounter Visit Diagnoses Not on filedocumented in this encounter Care Teams Mice Raiser Relationship Specialty Start Date End Date Shashi Hargrove MD [address] [place] [address] PCP - General Family Medicine 05/11/23 documented as of this encounter
--- OUTSIDE RECORDS SUMMARY | 2025-05-11 15:59 | XMS_ITS | Patient Health Record ---
Author Organization [facility] in [place] Address [address] [place] [address] Care Team Providers Care Director Hematology Name Role Phone Ethan Hargrove Primary Care Provider [phone] MELODIE HARGROVE Unavailable [phone] Allergies No Known Allergies Results Component Value Reference Range Notes CBC AUTO DIFF Reviewed date:06/09/2024 08:39:42 PM Interpretation: Performing Lab: Notes/Report: [facility] , White Blood Count 7.5 4.0-11.0 [...] 0.00-0.03 10 3/uL Performing Lab: see note [facility] FREE T4 Reviewed date:06/09/2024 08:39:42 PM Interpretation: Performing Lab: Notes/Report: [facility] Free T4 0.84 0.76-1.46 ng/dL Performing Lab: see note [facility] Luteinizing Hormone(LH) Reviewed date:06/12/2024 04:56:24 PM Interpretation: Performing Lab: Notes/Report: [facility] , Luteinizing Hormone(LH) 9.5 . mIU/mL Adult Female Range Follicular phase 2.4 - 12.6 Ovulation phase 14.0 - 95.6 Luteal phase 1.0 - 11.4 Postmenopausal 7.7 - 58.5 Performing Lab: see note [facility] Reviewed date:06/12/2024 04:56:24 PM Interpretation: Performing Lab: Notes/Report: [facility] , FSH 5.9 . mIU/mL Adult Female Range Follicular phase 3.5 - 12.5 Ovulation phase 4.7 - 21.5 Luteal phase 1.7 - 7.7 Postmenopausal 25.8 - 134.8 Performed at: [address] [id number] Meter/Relay Craftsman: Aguilar Machado PhD, Phone: [phone] Performing Lab: see note [facility] DHEA-Sulfate Reviewed date:06/12/2024 04:56:24 PM Interpretation: Performing Lab: Notes/Report: [facility] , DHEA-Sulfate 145.0 84.8-378.0 ug/dL Performing Lab: see note [facility] FREE T3 Reviewed date:07/04/2024 08:33:26 PM Interpretation: Performing Lab: Notes/Report: [facility] Free T3 2.64 2.18-3.98 pg/mL Performing Lab: see note - [facility] LB T4 Reviewed date:07/04/2024 08:33:26 PM Interpretation: Performing Lab: Notes/Report: [facility] , T4 Thyroxine 6.80 4.80-13.90 ug/dL Performing Lab: see note - [facility] LB TSH Reviewed date:07/04/2024 08:33:26 PM Interpretation: Performing Lab: Notes/Report: [facility] , Thyroid Stimulating Hormone 4.094 0.358-3.740 uIU/mL Performing Lab: see note ML - [facility] LB FREE T4 Reviewed date:09/16/2024 12:18:08 PM Interpretation: Performing Lab: Notes/Report: [facility] , Free T4 0.81 0.76-1.46 ng/dL Performing Lab: see note ML - [facility] LB TSH Reviewed date:09/16/2024 12:18:08 PM Interpretation: Performing Lab: Notes/Report: [facility] , Thyroid Stimulating Hormone 2.195 0.358-3.740 uIU/mL Performing Lab: see note ML - [facility] LB CBC AUTO DIFF Reviewed date:09/28/2024 09:17:22 PM Interpretation: Performing Lab: Notes/Report: [facility] , White Blood Count 7.3 4.0-11.0 [...] Performing Lab: see note ML - [facility] LB US OB <= 14 weeks fetus Reviewed date:12/04/2024 10:31:56 AM Interpretation: Performing Lab: Notes/Report: Source Facility: [place] [address] Ultrasound Report Signed Patient: JOCELYN FREEMAN V MR#: [id number] : 1995 Acct:[id number] Age/Sex: 29 / F ADM Date: 12/02/24 Loc: ER Attending Dr: Ordering Physician: Echo Coyle Date of Service: 12/02/24 Procedure(s): US OB <= 14 weeks fetus Accession Number(s): [id number] cc: Melodie Hargrove M.D.; Echo Coyle [place] [address] Patient Name: JOCELYN FREEMAN MRN: [facility]:[id number] date: 1995 Sex: F Assigned Patient Location: ER Current Patient Location: ER Accession/Order Number: [id number] Exam Date: 12/02/2024 12:22 Report Date: 12/02/2024 [...] M.D. Signed By: 12/02/241317 DD/ 14 TD/TT: Debone Supervisor: [place] [address] Ultrasound Report Signed Patient: JOCELYN FREEMAN V MR#: [id number] : 1995 Acct:[id number] Age/Sex: 29 / F ADM Date: 12/02/24 Loc: ER Attending Dr: Ordering Physician: Echo Coyle Date of Service: 12/02/24 Procedure(s): US OB <= 14 weeks fetus Accession Number(s): [id number] cc: Melodie Hargrove M.D. ; Echo Coyle [address] [address] Patient Name: JOCELYN FREEMAN MRN: [id number] date: 1995 Sex: F Assigned Patient Location: ER Current Patient Loca tion: ER Accession/Order Numb er: [id number] Exam Date: 12/02/2024 12:22 Report Date: 12/02/2024 [...] Signed By: 12/02/24 1318 DD/ 14 TD/TT: Debone Supervisor: DRUG SCREEN RAPID (URINE) Reviewed date:12/24/2024 04:34:56 PM Interpretation: Performing Lab: Notes/Report: [facility] , Cannabinoid Screen Urine NEGATIVE NEGATIVE [...] ng/mL Performing Lab: see note ML - [facility] LB GLYCOHEMOGLOBIN A1C Reviewed date:12/24/2024 04:34:56 PM Interpretation: Performing Lab: Notes/Report: [facility] , Glycohemoglobin A1C 5.1 4.5-6.2 % ADA RECOMMENDED LIMIT 4.0 - 6.0 ADA THERAPEUTIC TARGET < 7.0 ACTION SUGGESTED > 7.0 Estimated Average Glucose 100 Performing Lab: see note ML - [facility] LB Box Test Reviewed date:12/24/2024 04:34:56 PM Interpretation: Performing Lab: Notes/Report: BLAIR BOX [facility] , BOX Test Sent Out UNITY BOX Test Reference Lab UN[facility] Test Date Sent 12/23/24 Performing Lab: see note ML - [facility] LB PROF CHEM 8 (BAS METB) Reviewed date:02/02/2025 07:34:33 PM Interpretation: Performing Lab: Notes/Report: [facility] , Sodium 136 136-145 mmol/L Potassium [...] mg/dL Performing Lab: see note ML - [facility] Troponin I High Sensitivity Reviewed date:02/02/2025 07:34:33 PM Interpretation: Performing Lab: Notes/Report: [facility] , Troponin I High Sensitivity <4.0 4.0-51.3 pg/mL CUT-OFF POINTS HAVE BEEN ESTABLISHED BASED ON THE FOURTH UNIVERSAL DEFINITION OF MYOCARDIAL INFARCTION. THE UPPER REFERENCE LIMIT (URL) OF TROPONIN, DEFINED THE 99TH PERCENTILE OF cTnI DISTRIBUTION IN A REFERENCE POPULATION, HAS BEEN CONFIRMED THE DECISION THRESHOLD FOR OR DIAGNOSIS. 99TH PERCENTILE = 51.4 PG/ML NOTE: HIGH-SENSITIVITY TROPONIN ASSAY IS NOT INTENDED TO BE USED IN ISOLATION BUT SHOULD BE INTERPRETED IN CONJUNCTION WITH OTHER DIAGNOSTIC AND CLINICAL INFORMATION. Performing Lab: see note ML - [facility] LB ECG 12 lead Reviewed date:02/02/2025 10:00:35 PM Interpretation: Performing Lab: Notes/Report: Source Facility: [facility]-[address] [place] [address] [place] [address] Electrocardiograph Report Signed Patient: JOCELYN FREEMAN V MR#: [id number] : 1995 Acct:[id number] Age/Sex: 29 / F ADM Date: 02/02/25 Loc: ER Attending Dr: Ordering Physician: Ashlee Erickson M.D. 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 Measurements Intervals [place] Rate: 90 P: 44 AR: 220 QRS: -8 QRSD: 68 T: 41 QT: 342 QTc: 390 Interpretive Statements 1100 Sinus rhythm 2231 First degree AV block 8102 Low QRS voltage in chest leads 9150 abnormal ECG Compared to ECG 04/17/2023 10:07:42 First degree AV block now present Electronically Signed On 02-02-2025 20:26:48 EDT by CYNDI FINK M.D. Dictated By: CYNDI FINK Signed By: 02/02/252026 DD/ 38 TD/TT: Debone Supervisor: [place] [address] Electrocardiograph Report Signed Patient: JOCELYN FREEMAN V MR#: [id number] : 1995 Acct:[id number] Age/Sex: 29 / F ADM Date: 02/02/25 Loc: ER Attending Dr: Ordering Physician: Ashlee Erickson M.D. 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 Measurements Intervals [place] Rate: 90 P: 44 AR: 220 QRS: -8 QRSD: 68 T: 41 [...] FINK Signed By: 02/02/252026 DD/ 1039 TD/TT: Debone Supervisor: CBC AUTO DIFF Reviewed date:03/06/2025 08:37:44 PM Interpretation: Performing Lab: Notes/Report: [facility] , White Blood Count 10.4 4.0-11.0 [...] Performing Lab: see note ML - [facility] LB UA (CLEAN or CATCH) BRICK PAVER or M ICRO IF IND. Reviewed date:04/26/2025 09:45:57 PM Interpretation: Performing Lab: Notes/Report: [facility] , Color Urine LT. YELLOW YELLOW Clarity Urine CLEAR CLEAR Specific [place] Urine 1.020 1.005-1.025 pH Urine 7.5 5.0-9.0 Protein Urine 30 NEG/TRACE mg/dL Glucose Urine UA NEGATIVE NEGATIVE mg/dL Bilirubin Urine NEGATIVE NEGATIVE Ketones Urine NEGATIVE NEGATIVE mg/dL Blood Urine NEGATIVE NEGATIVE Nitrite Urine NEGATIVE NEGATIVE Urobilinogen Urine 1.0 0.2-1.0 EU/dL Leukocyte Esterase Urine MODERATE NEGATIVE Urine Microscopic Indicated YES Performing Lab: see note - [facility] LB URINE MICROSCOPIC ONLY Reviewed date:04/26/2025 09:45:57 PM Interpretation: Performing Lab: Notes/Report: [facility] , WBC Urine 10-20 NONE SEEN #/HPF RBC Urine 2-5 0-2 #/HPF Bacteria Urine MODERATE NONE SEEN #/HPF Mucus Urine NONE SEEN NONE SEEN Squamous Epithelial Cell Urine MODERATE NONE/RARE #/LPF Crystals Seen? None Seen None Seen #/HPF Cast Seen? NONE SEEN NONE SEEN #/LPF Urine Culture Indicated YES- Performing Lab: see note ML - [facility] LB Urine Culture, Routine Reviewed date:04/29/2025 05:25:31 PM Interpretation: Performing Lab: Notes/Report: [facility] , Urine Culture, Routine See Below For Report Urine Culture, Routine Urine Culture, Routine Mixed urogenital cuco Urine Culture, Routine Urine Culture, Routine Less than 10,000 colonies/mL Urine Culture, Routine Urine Culture, Routine Performed at: [facility] Urine Culture, Routine Urine Culture, Routine [address] [place], [place] [id number] Urine Culture, Routine Urine Culture, Routine Meter/Relay Craftsman: Chilango Machado PhD, Phone: [phone] Urine Culture, Routine Performing Lab: see note LC - [facility] LB SEE REPORT - Brick[employer] Id information not found for 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 Ordering Physician: Deisy Howell D.O. Date of Service: 05/08/25 Procedure(s): US OB BPP w non-stress Accession Number(s): [id number] cc: Deisy Howell D.O.; Melodie Hargrove M.D. [place] [address] Patient Name: JOCELYN FREEMAN MRN: [facility]:[id number] date: 1995 Sex: F Assigned Patient Location: [facility] Current Patient Location: Accession/Order Number: [id number] Exam Date: 05/08/2025 21:48 Report Date: 05/08/2025 [...] Graham M.D. 05/08/2025 9:49 PM Dictation Location: [place] [address] Electronically authenticated by: [id number] Y Date: 05/08/2025 21:49 Dictated By: Echo Graham D.O. Signed By: 05/08/252151 DD/ 48 TD/TT: Debone Supervisor: [place] [address] Ultrasound Report Signed Patient: JOCELYN FREEMAN V MR#: [id number] : 1995 Acct:[id number] Age/Sex: 29 / F ADM Date: 05/08/25 Loc: US Attending Dr: Deisy Howell D.O. Ordering Physician: Deisy Howell D.O. Date of Service: 05/08/25 Procedure(s): US OB BPP w non-stress Accession Number(s): [id number] cc: Deisy Howell D.O. ; Melodie Hargrove M.D. [place] [address] Patient Name: JOCELYN FREEMAN MRN: [facility]:[id number] date: 1995 Sex: F Assigned Patient Location: [facility] Current Patient Location: Accession/Order Numb er: [id number] Exam Date: 05/08/2025 21:48 Report Date: 05/08/2025 [...] Graham M.D. 05/08/2025 9:49 PM Dictation Location: [place] [address] Electronically authenticated by: [id number] Y Date: 05/08/2025 21:49 Dictated By: Cecilio Graham D.O. Signed By: 05/08/252151 DD/ 48 TD/TT: Debone Supervisor: [employer]* Reviewed date:04/25/2025 04:36:16 PM Interpretation: Performing Lab: Notes/Report: [facility] , Amn[employer] NEGATIVE NEGATIVE Performing Lab: see note ML - [facility] LB Glucose 1 Hour Reviewed date:03/06/2025 08:37:44 PM Interpretation: Performing Lab: Notes/Report: [facility] , Glucose 1 Hour 116 <130 mg/dL Performing Lab: see note ML - [facility] LB XR chest 1V Reviewed date:02/02/2025 07:34:33 PM Interpretation: Performing Lab: Notes/Report: Source Facility: [place] [address] [place] [address] XRay Report Signed Patient: JOCELYN FREEMAN V MR#: [id number] : 1995 Acct:[id number] Age/Sex: 29 / F ADM Date: 02/02/25 Loc: ER Attending Dr: Ordering Physician: Ashlee Erickson M.D. Date of Service: 02/02/25 Procedure(s): XR chest 1V Accession Number(s): [id number] cc: Melodie Hargrove M.D.; Ashlee Erickson M.D. The [place] [address] Patient Name: JOCELYN FREEMAN MRN: [id number]:[id number] date: 1995 Sex: F Assigned Patient Location: ER Current Patient Location: ER Accession/Order Number: [id number] Exam Date: 02/02/2025 11:16 Report Date: 02/02/2025 [...] Tangela Ellis M.D.02/02/2025 11:18 AM Dictation Location: [place] [address] Electronically authenticated by: [id number] Y Date: 02/02/2025 11:18 Dictated By: Tangela Ellis M.D. Signed By: 02/02/25 1120 DD/ 1118 TD/TT: Debone Supervisor: [place] [address] XRay Report Signed Patient: JOCELYN FREEMAN V MR#: [id number] : 1995 Acct:[id number] Age/Sex: 29 / F ADM Date: 02/02/25 Loc: ER Attending Dr: Ordering Physician: Ashlee Erickson M.D. Date of Service: 02/02/25 Procedure(s): XR chest 1V Accession Number(s): [id number] cc: Melodie Hargrove M.D. ; Ashlee Erickson M.D. The [place] [address] Patient Name: JOCELYN FREEMAN MRN: [id number] date: 1995 Sex: F Assigned Patient Location: ER Current Patient Loca tion: ER Accession/Order Numb er: [id number] Exam Date: 02/02/2025 11:16 Report Date: 02/02/2025 [...] Tangela Ellis M.D.02/02/2025 11:18 AM Dictation Location: [place] [address] Electronically authenticated by: [id number] Y Date: 02/02/2025 11:18 Dictated By: Tangela Ellis M.D. Signed By: 02/02/25 1120 DD/ 1118 TD/TT: Debone Supervisor: CBC AUTO DIFF Reviewed date:02/02/2025 07:34:33 PM Interpretation: Performing Lab: Notes/Report: [facility] , White Blood Count 10.7 4.0-11.0 [...] Performing Lab: see note ML - [facility] LB IGP,Aptima HPV,Age Gdln Reviewed [...] High,A-Abnormal,AA-Cri tical Abnormal Performed at: 01 =G [address] [address] Haily Cook MD, IGP, Aptima HPV, rfx 16/18,45 Note . TESTS RESULT FLAG UNITS REF RANGE LAB DIAGNOSIS: 02 NEGATIVE FOR INTRAEPITHELIAL LESION OR MALIGNANCY. Specimen adequacy: 02 Satisfactory for evaluation. No endocervical component is identified. Performed by: Melissa Guerrero, Dye Colorist Formulator (ASCP) . 02 Note: Note 02 The [...] Low,>-Panic High,A-Abnormal,AA-Cri tical Abnormal Performed at: [address] [address] Haily Cook MD, HPV Aptima Negative Negative This nucleic acid amplification test detects fourteen high- risk HPV types (16,18,31,33,35,39,45, 51,52,56,58,59,66,68) without differentiation. Performed at: =[address] [id number] Meter/Relay Craftsman: Haily Cook MD, Phone: [phone] Performed at: [address] [id number] Meter/Relay Craftsman: Haily Cook MD, Phone: [phone] Performing Lab: see note [facility] LB Urine Culture, Routine Reviewed date:12/25/2024 04:31:37 [...] Culture, Routine Urine Culture, Routine Performed at: [facility] Urine Culture, Routine Urine Culture, Routine [address] [place], [place] [id number] Urine Culture, Routine Urine Culture, Routine Meter/Relay Craftsman: Chilango Machado PhD, Phone: [phone] Urine Culture, Routine Performing Lab: see note - [facility] LB SEE REPORT - Bricklayer [employer]er Id information not found 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 Not infected with HCV unless early or acute infection is suspected (which may be delayed in an immunocompromised individual), or other evidence exists to indicate HCV infection. Performing Lab: see note [facility] LB Rapid Plasma Reagin, Quant Reviewed date:12/24/2024 [...] utilized, such as Treponema pallidum (Syphilis) Screening Wallace (950152) or Rapid Plasma Reagin (RPR) Test With Reflex to Quantitative RPR and Confirmatory Treponema pallidum Antibodies (088036). Performed at: [address] [id number] Meter/Relay Craftsman: Aguilar Machado PhD, Phone: [phone] Performing Lab: see note [facility] HIV Ab/p24 Ag with Reflex Reviewed date:12/24/2024 04:34:56 PM Interpretation: Performing Lab: Notes/Report: [facility] , HIV Ab/p24 Ag Screen Non Reactive Non Reactive HIV-1/HIV-2 antibodies and HIV-1 p24 antigen were NOT detected. There is no laboratory evidence of HIV infection. HIV Negative Performed at: [address] [id number] Meter/Relay Craftsman: Aguilar Machado PhD, Phone: [phone] Performing Lab: see note [facility] LB Type and Screen Reviewed date:12/24/2024 04:34:56 PM Interpretation: Performing Lab: Notes/Report: [facility] , Blood Type B Positive Antibody Screen NEGATIVE RUBELLA AB IGG Reviewed date:12/24/2024 04:34:56 PM Interpretation: Performing Lab: Notes/Report: [facility] , Rubella Antibodies, IgG 0.91 Immune > 0.99 index A second sample should be collected and tested no less than 2-4 weeks. Non-immune <0.90 Equivocal 0.90 - 0.99 Immune >0.99 Performed at: [address] [id number] Meter/Relay Craftsman: Aguilar Machado PhD, Phone: [phone] Performing Lab: see note - [facility] LB CBC AUTO DIFF Reviewed date:12/24/2024 04:34:56 PM Interpretation: Performing Lab: Notes/Report: [facility] , White Blood Count 9.6 4.0-11.0 [...] Performing Lab: see note ML - [facility] LB TSH Reviewed date:09/28/2024 09:17:22 PM Interpretation: Performing Lab: Notes/Report: [facility] , Thyroid Stimulating Hormone 2.393 0.358-3.740 uIU/mL Performing Lab: see note ML - [facility] LB PREG QUANT HCG Reviewed date:09/28/2024 09:17:22 PM Interpretation: Performing Lab: Notes/Report: [facility] , HCG Quantitative 1721 5-50 0.2-1 WEEK 50-500 1-2 WEEKS 100-5,000 2-3 WEEKS 500-10,000 3-4 WEEKS 1,000-50,000 4-5 WEEKS 10,000-100,000 5-6 WEEKS 15,000-200,000 6-8 WEEKS 10,000-100,000 2-3 MONTHS Performing Lab: see note - [facility] LB US pelvis transvaginal Reviewed date:06/28/2024 03:19:56 PM Interpretation: Performing Lab: Notes/Report: Source Facility: [place] [address] Ultrasound Report Signed Patient: JOCELYN FREEMAN V MR#: [id number] : 1995 Acct:[id number] Age/Sex: 29 / F ADM Date: 06/27/24 Loc: [facility] Attending Dr: Deisy Howell D.O. Ordering Physician: Deisy Howell D.O. Date of Service: 06/27/24 Procedure(s): US pelvis transvaginal Accession Number(s): [id number] cc: Deisy Howell D.O.; Melodie Hargrove M.D. [place] [address] Patient Name: JOCELYN FREEMAN MRN: [id number] date: 1995 Sex: F Assigned Patient Location: [facility] Current Patient Location: Accession/Order Number: [id number] Exam Date: 06/27/2024 09:02 Report Date: 06/28/2024 [...] Signed By: 06/28/24 08 DD/ 08 TD/TT: Debone Supervisor: [place] [address] Ultrasound Report Signed Patient: JOCELYN FREEMAN V MR#: [id number] : 1995 Acct:[id number] Age/Sex: 29 / F ADM Date: 06/27/24 Loc: [facility] Attending Dr: Deisy Howell D.O. Ordering Physician: Deisy Howell D.O. Date of Service: 06/27/24 Procedure(s): US pel vis transvaginal Accession Number(s): [id number] cc: Deisy Howell D.O. ; Melodie Hargrove M.D. The [place] [id number] Patient Name: JOCELYN FREEMAN MRN: [id number] date: 1995 Sex: F Assigned Patient Location: [facility] Current Patient Location: Accession/Order Numb er: [id number] Exam Date: 06/27/2024 09:02 Report Date: 06/28/2024 [...] M.D. Signed By: 06/28/24808 DD/ 6 TD/TT: Debone Supervisor: DHE[facility], Serum Reviewed date:06/16/2024 08:59:38 PM Interpretation: Performing Lab: Notes/Report: [facility] , DHEA, Serum 140 31-701 ng/dL This test was developed and its performance characteristics determined by [facility]. It has not been cleared or approved by the Food and Drug Administration. Performed at: [address] [id number] Meter/Relay Craftsman: Emanuel Varela MD, Phone: [phone] Performing Lab: see note - [facility] LB TSH Reviewed date:06/09/2024 08:39:42 PM Interpretation: Performing Lab: Notes/Report: [facility] , Thyroid Stimulating Hormone 3.872 0.358-3.740 uIU/mL Performing Lab: see note ML - [facility] LB PREG QUANT HCG Reviewed date:06/09/2024 08:39:42 PM Interpretation: Performing Lab: Notes/Report: [facility] , HCG Quantitative <1 5-50 0.2-1 WEEK 50-500 1-2 WEEKS 100-5,000 2-3 WEEKS 500-10,000 3-4 WEEKS 1,000-50,000 4-5 WEEKS 10,000-100,000 5-6 WEEKS 15,000-200,000 6-8 WEEKS 10,000-100,000 2-3 MONTHS Performing Lab: see note - [facility] LB GLYCOHEMOGLOBIN A1C Reviewed date:06/09/2024 08:39:42 PM Interpretation: Performing Lab: Notes/Report: [facility] , Glycohemoglobin A1C 5.4 4.5-6.2 % ADA RECOMMENDED LIMIT 4.0 - 6.0 ADA THERAPEUTIC TARGET < 7.0 ACTION SUGGESTED > 7.0 Estimated Average Glucose 108 Performing Lab: see note ML - [facility] LB Reason For Referral No Information Medications Medication SIG (Take, Route, Frequency, Duration) Notes Start Date End Date Status Czfqdgqj-Ygxjuqtuj-Ueotdzz h 3.5-04372-0.1 1 drop into affected eye Ophthalmic Four [...] Problem Status W/U Status Risk Notes Problem 28621786 Other hypoglycemia (E16.1) Active confirmed Problem Hypothyroidism (45039957) Hypothyroidism (E03.9) Active confirmed Problem Arthralgia (63370274) Arthralgia (M25.50) Active confirmed Problem Shingles (0162264) Shingles (B02.9) Active confirmed Problem Laboratory test result abnormal (513793550) Abnormal laboratory test (R89.9) Active confirmed Problem Irritable bowel (59098488) Irritable bowel (K58.9) Active confirmed Problem Attention deficit hyperactivity disorder (949424364) ADHD (F90.9) Active confirmed Vital Signs Blood pressure diastolic 70 mm Hg 12/06/2024 Height 71 in 12/06/2024 Blood pressure systolic 122 mm Hg 12/06/2024 Weight 325.2 lbs 12/06/2024 BMI 45.35 kg/m2 12/06/2024 Encounters Encounter Location Date Provider Diagnosis [facility] [address] [place] [address] 06/30/2024 Ethan Springy [facility] [address] [place] [place] [address] 07/04/2024 Ethan Hoy Hypothyroidism E03.9 [facility] [address] [place] [address] 09/15/2024 Ethan Hoy Other fatigue R53.83 and Abnormal weight gain R63.5 [facility] [address] [place] [address] 12/08/2024 Ethan Hargrove [facility] [address] [place] [place] [address] 12/12/2024 Ethan Hoy Acute non-recurrent sinusitis, unspecified location J01.90 [facility] [address] [place] [address] 04/25/2025 Ethan Springy [facility] [address] [place] [place] [address] 05/23/2024 MELODIE HARGROVE [facility] [address] [place] [address] 06/09/2024 Ethan Hoy Hypothyroidism, unspecified E03.9 [facility] [address] [facility] [place] [address] 06/14/2024 Ethan Hargrove [facility] [address] [place] [place] [address] 12/06/2024 Ethan Hoy Acute non-recurrent sinusitis, unspecified location J01.90 and Nasal congestion R09.81 Assessments Encounter Date Diagnosis (ICD Code) Assessment Notes Treatment Notes Treatment Clinical Notes Section Notes 12/06/2024 Acute non-recurrent sinusitis, unspecified location (ICD-10 - J01.90) Rest and drink more liquids, especially water. You may use a humidifier or vaporizer to help keep the drainage moist. Yfzp-fzm-aqccxub Nasal Saline may help the stuffy and runny nose. Use Ibuprofen and or Tylenol as needed for fever, chills, body aches or pain. Children 5 years old should not be given mpoa-ofk-swizmnf cough and cold medications such as guaifenesin and dextromethorphan. If you're over age 5, you may try hgag-fga-eaiyxtl cold medications such as guaifenesin and dextromethorphan, [...] Date [employer] [employer] [address] [place] [address] [id number] Jocelyn Freeman Self - patient is the insured 8 Medical (General) History Medical History History ICD Code Zoster without complications B02.9 Surgical History Surgery Date(Month/Year) Colonoscopy & EGD 04/27/24 Left Ovary Removal Angioplasty on Toes
--- OUTSIDE RECORDS SUMMARY | 2025-05-11 15:59 | XMS_ITS | Encounter Summary ---
Author Organization [facility] Address [address] [place] [address] Care Team Providers Care Home Administrator Name Role Phone Shashi Hargrove MD Primary Care Provider [phone] Encounter Details Date Type Department Care Team ([facility] Contact Info) Description 06/29/2024 Abstract [facility] OB [address] [place] [address] Graham Howell DO [address] [place] [address] Dr Neisha D[place], [place] [address] Social History Tobacco Use Types Packs/Day Years [...] Description 05/17/2025 1:50 PM EDT Routine [facility] OB [address] [place] [address] Kelle Mosley PA [address] [facility] [address] [place], [id number] documented as of this encounter Visit Diagnoses Not on filedocumented in this encounter Care Teams Home Administrator Relationship Specialty Start Date End Date Shashi Hargrove MD [address] [place] [address] PCP - General Family Medicine 05/11/23 documented as of this encounter
--- OUTSIDE RECORDS SUMMARY | 2025-05-11 15:59 | XMS_ITS | Encounter Summary ---
Author Organization [facility] Address [address] [facility] [place] [address] Care Team Providers Care Plant Quality Manager Name Role Phone Shashi Hargrove MD Primary Care Provider [phone] Encounter Details Date Type Department Care Team ([facility] Contact Info) Description 12/23/2024 Abstract [facility] OB [address] [facility] [place] [address] Graham Howell DO [address] [facility] [address] Neisha Dill, [facility]11 Social History Tobacco Use Types [...] PM EDT Routine [facility] [address] [facility] [place] [address] Kelle Mosley PA [address] [facility] [address] [place], [place] [address] documented as of this encounter Visit Diagnoses Not on filedocumented in this encounter Care Teams Plant Quality Manager Relationship Specialty Start Date End Date Shashi Hargrove MD [address] [place] [address] PCP - General Family Medicine 05/11/23 documented as of this encounter
--- OUTSIDE RECORDS SUMMARY | 2025-05-11 15:59 | XMS_ITS | Encounter Summary ---
Author Organization [facility] Address [address] [place] [address] Care Team Providers Care Air Twister Winder Name Role Phone Shashi Hargrove MD Primary Care Provider [phone] Encounter Details Date Type Department Care Team ([facility] Contact Info) Description 11/03/2024 Abstract [facility] OB [address] [facility] [place] [address] Graham Howell DO [address] [facility] [address] Neisha Dill, [facility]11 Social History Tobacco Use Types [...] [address] [facility] [place] [address] Kelle Mosley PA [address] [facility] [address] [place], [place] [address] documented as of this encounter Visit Diagnoses Not on filedocumented in this encounter Care Teams Air Twister Winder Relationship Specialty Start Date End Date Shashi Hargrove MD [address] [place] [address] PCP - General Family Medicine 05/11/23 documented as of this encounter
--- OUTSIDE RECORDS SUMMARY | 2025-05-11 15:59 | XMS_ITS | Encounter Summary ---
Author Organization [facility] Address [address] [place] [address] Care Team Providers Care Commercial Project Manager Name Role Phone Shashi Hargrove MD Primary Care Provider [phone] Encounter Details Date Type Department Care Team ([facility] Contact Info) Description 10/14/2024 Abstract [facility] OB [address] [facility] [place] [address] Graham Howell DO [address] [place] [address] Dr Neisha Dill, [place] [address] Social History Tobacco Use Types Packs/Day Years [...] Upcoming Encounters Date Type Department Care Team ([facility] Contact Info) Description 05/17/2025 1:50 PM EDT Routine [facility] OB [address] [facility] [place] [address] Kelle Mosley PA [address] [facility] [address] [place], [facility]11 documented as of this encounter Visit Diagnoses Not on filedocumented in this encounter Care Teams Commercial Project Manager Relationship Specialty Start Date End Date Shashi Hargrove MD [address] [place] [address] PCP - General Family Medicine 05/11/23 documented as of this encounter
--- OUTSIDE RECORDS SUMMARY | 2025-05-11 15:59 | XMS_ITS | Encounter Summary ---
Author Organization [facility] Address [address] [place] [address] Care Team Providers Care Manager Business Banking Name Role Phone Shashi Hargrove MD Primary Care Provider [phone] Encounter Details Date Type Department Care Team ([facility] Contact Info) Description 2025 Bamboo flowsheet [facility] OB [address] [place] [address] Graham Howell [address] Neisha Dill, [facility]11 Social History Tobacco Use Types Packs/Day [...] Description 05/17/2025 1:50 PM EDT Routine [facility] [address] [place] [address] Kelle Mosley PA [address] [place], [place] [id number] documented as of this encounter Visit Diagnoses Not on filedocumented in this encounter Care Teams Manager Business Banking Relationship Specialty Start Date End Date Shashi Hargrove MD [address] [place] [address] PCP - General Family Medicine 05/11/23 documented as of this encounter
--- OUTSIDE RECORDS SUMMARY | 2025-05-11 15:59 | XMS_ITS | Encounter Summary ---
Author Organization [facility] Address [address] [place] [address] Care Team Providers Care Commissioner Conservation Of Resources Name Role Phone Shashi Hargrove MD Primary Care Provider [phone] Encounter Details Date Type Department Care Team ([facility] Contact Info) Description 06/28/2024 Clinisync Result Encounter [facility] External Department Unsolicited Deisy Howell DO [address] [facility] [place] [address] Social History Tobacco Use Types Packs/Day Years [...] Encounters Date Type Department Care Team ([facility] Contact Info) Description 05/17/2025 1:50 PM EDT Routine [facility] OB [address] [facility] [place] [address] Kelle Mosley PA [address] [facility] [address] [place], [place] [address] documented as of this encounter Procedures Procedure Name Priority Date/Time Associated Diagnosis Comments US PELVIS TRANSVAGINAL 06/28/2024 8:07 AM EDT documented in this encounter Results * US PELVIS TRANSVAGINAL (06/28/2024 8:07 AM EDT) Anatomical Region Laterality Modality Other 06/28/2024 8:07 AM EDT Narrative 06/28/2024 8:09 AM EDT [address] [address] Ultrasound Report Signed Patient: JOCELYN FREEMAN V MR#: [id number] : 1995 Acct:[id number] Age/Sex: 29 / F ADM Date: 06/27/24 Loc: [facility] Attending Dr: Deisy Howell D.O. Ordering Physician: Deisy Howell D.O. Date of Service: 06/27/24 Procedure(s): US pelvis transvaginal Accession Number(s): [id number] cc: Deisy Howell D.O.; Shashi Hargrove M.D. [place] [id number] Patient Name: JOCELYN FREEMAN MRN: [id number] date: 1995 Sex: F Assigned Patient Location: [facility] Current Patient Location: Accession/Order Number: [id number] Exam Date: 06/27/2024 09:02 Report Date: 06/28/2024 [...] Signed By: 06/28/24 08 DD/ 08 TD/TT: Systems Test Analyst: Procedure Note Radiology, Radiologist, - 06/28/2024 [place] [address] Ultrasound Report Signed Patient: JOCELYN FREEMAN R#: [id number] : 1995Acct:[id number] Age/Sex: 29 / FADM Date: 06/27/24 Loc: [facility] Attending Dr: Deisy Howell D.O. Ordering Physician: Deisy Howell D.O. Date of Service: 06/27/24 Procedure(s): US pelvis transvaginal Accession Number(s): [id number] cc: Deisy Howell D.O.; Shashi Hargrove M.D. The [place] [id number] Patient Name: JOCELYN FREEMAN MRN: [id number] date: 1995 Sex: F Assigned Patient Location: [facility] Current Patient Location: Accession/Order Number: [id number] Exam Date: 06/27/2024 09:02 Report Date: 06/28/2024 [...] Duarte M.D. Signed By:06/28/24808 DD/ 6 TD/TT: Systems Test Analyst: us Deisy Dante DO [facility] Final Result documented in this encounter Visit Diagnoses Not on filedocumented in this encounter Care Teams Commissioner Conservation Of Resources Relationship Specialty Start Date End Date Shashi Hargrove MD [address] [place] [address] PCP - General Family Medicine 05/11/23 documented as of this encounter
--- OUTSIDE RECORDS SUMMARY | 2025-05-11 15:59 | XMS_ITS | Encounter Summary ---
Author Organization [facility] Address [address] [facility] [place] [address] Care Team Providers Care Secretary Receptionist Name Role Phone Shashi Hargrove MD Primary Care Provider [phone] Encounter Details Date Type Department Care Team ([facility] Contact Info) Description 12/23/2024 Abstract [facility] OB [address] [facility] [place] [address] Graham Howell DO [address] [facility] [address] Neisha Dill, [facility]11 Social History Tobacco Use Types Packs/Day Years [...] PM EDT Routine [facility] [address] [facility] [place] [address] Kelle Mosley PA [address] [facility] [address] [place], [place] [address] documented as of this encounter Visit Diagnoses Not on filedocumented in this encounter Care Teams Secretary Receptionist Relationship Specialty Start Date End Date Shashi Hargrove MD [address] [place] [address] PCP - General Family Medicine 05/11/23 documented as of this encounter
--- OUTSIDE RECORDS SUMMARY | 2025-05-11 15:59 | XMS_ITS | Encounter Summary ---
Author Organization [facility] Address [address] [place] [address] Care Team Providers Care Poultry Sexer Name Role Phone Shashi Hargrove MD Primary Care Provider [phone] Encounter Details Date Type Department Care Team (Late st Contact Info) Description 04/11/2015 Post-op Telephone [facility] General Surgery [address] [place], [place] [phone] Leila Wolff RN Social History Tobacco Use [...] on filedocumented in this encounter Care Teams Poultry Sexer Relationship Specialty Start Date End Date Shashi Hargrove MD [address] [place] [address] PCP - General 04/05/15 documented as of this encounter
--- OUTSIDE RECORDS SUMMARY | 2025-05-11 15:59 | XMS_ITS | Patient Health Record ---
Author Organization [facility] Address [address] [place] [address] Care Team Providers Care Programming Coordinator Name Role Phone Dr. Collins Mei Primary Care Provider [phone] Caryn Roth Unavailable [phone] Reason For Referral No Information Encounters Encounter Location Date Provider Diagnosis [facility] [address] [place] [address] 09/23/2024 Collins Mei Encounter for dental examination and cleaning with abnormal findings Z01.21 ; Other dental procedure status Z98.818 ; Disturbances in tooth eruption K00.6 ; Acute gingivitis, plaque induced K05.00 and Dental caries on pit and fissure surface penetrating into dentin K02.52 [facility] [address] [place] [address] 12/02/2024 Collins Mei Dental caries on pit [...] Coverage Start Date Coverage End Date Dental [place] [employer] [address] [address] [place] [address] [id number] ROSALIE FREEMAN Self - patient is the insured 3 [employer] [facility] [place] [address] [place] [address] [id number] ROSALIE FREEMAN Self - patient is the insured 3
--- OUTSIDE RECORDS SUMMARY | 2025-05-11 15:59 | XMS_ITS | Clinical Summary ---
Author Organization [facility] Address [address] [place] [address] Care Team Providers Care Morphologist Name Role Phone Shashi Hargrove MD Primary Care Provider [phone] Allergies Active Allergy Reactions Criticality Noted Date Comments Wound Dressings 12/25/2023 Other Reaction(s): hives Medications sertraline (Zoloft) 100 MG tablet Take 50 mg by mouth Daily Active magnesium oxide (Mag-Ox) 400 MG tabletIndications : headache in third trimester ([facility]) Take 1 tablet (400 mg) by mouth Daily 30 tablet 11 5 Active valACYclovir (Valtrex) 500 MG tabletIndications :Herpes zoster with complication Take 1 tablet (500 mg) by mouth Daily 30 tablet 11 5 04/28/20 25 cephalexin (Keflex) 500 MG capsuleIndication s:Third trimester ([facility]) Take 1 capsule (500 mg) by [...] cyst of left ovary 04/10/2015 Vaginal delivery ([facility]) 09/06/2014 Estimated Date of Delivery Comme nts Yes 06/05/2025 Based on last me nstrual period of 08/29/2024 Encounters Date Type Department Care Team Description 2025 2:30 PM EDT Routine [facility] [address] [place] [address] Deisy Howell DO Third trimester ([facility]); 36 weeks gestation of ([facility]) 2025 Bamboo flowsheet [facility] [place] [address] [place] [address] Deisy Howell DO 05/08/2025 Clinisync Result Encounter [facility] External Department Unsolicited Deisy Hwoell DO 05/05/2025 Abstract [facility] [address] [place] [address] Kelle Craig LPN 05/05/2025 Patient Outreach [facility] [address] [place] [address] Kelle Craig LPN 05/04/2025 Telephone [facility] [address] [place] [address] Katie Fitzgerald MA 04/27/2025 3:00 PM EDT Ancillary Procedure [facility] [place] [address] [place] [address] size inconsistent with dates ([facility]) 04/27/2025 1:00 PM EDT Routine [facility] [place] [address] Kelle Mosley PA Third trimester ([facility]); 34 weeks gestation of ([facility]) 04/27/2025 Bamboo flowsheet [facility] [address] [place] [address] Kelle Mosley PA 04/25/2025 Clinisync Result Encounter [facility] External Department Unsolicited Deisy Howell, 04/25/2025 Telephone [facility] [address] [place] [address] Deisy Howell, 04/12/2025 2:30 PM EDT Routine [facility] OB [address] [facility] [place] [address] Deisy Howell, Third trimester ([facility]); 32 weeks gestation of ([facility]); size inconsistent with dates ([facility]) 04/12/2025 Bamboo flowsheet [facility] [address] [facility] [place] [address] Deisy Howell, 04/10/2025 Refill [facility] OB [address] [facility] [place] [address] Aleida Colon LPN headache in third trimester ([facility]) 03/29/2025 3:10 PM EDT Routine [facility] [address] [facility] [place] [address] Kelle Mosley PA Herpes zoster with complication (Primary Dx); 30 weeks gestation of ([facility]); Third trimester ([facility]) 03/29/2025 Bamboo flowsheet [facility] OB [address] [facility] [place] [address] Kelle Mosley PA 03/15/2025 2:50 PM EDT Routine [facility] OB [address] [facility] [place] [address] Deisy Howell, Third trimester ([facility]); 28 weeks gestation of ([facility]); H/O herpes zoster virus 03/15/2025 Bamboo flowsheet [facility] OB [address] [facility] [place] [address] Deisy Howell, DO 03/06/2025 Clinisync Result Encounter [...] PM EDT Routine [facility] OB [address] [facility] [place] [address] Kelle Mosley PA [address] [facility] [place] [address] Health Maintenance Due Date Last Done Comments Influenza Vaccine (Season Ended) 2025 10/28/20, 03/21/2014 Pap Smear 12/27/2027 12/27/2024, 06/23, 01/02/2021, Additional history exists Cervical Cancer Screening 07/09/2028 HPV/Cotest 07/09/2028 07/09/2023 Procedures Procedure Name Priority Date/Time Associated Diagnosis Comments POCT URINALYSIS DIPSTICK Routine 2025 3:07 PM EDT Third trimester ([facility]) US OB BPP W NON-STRESS 05/08/2025 9:49 PM EDT US OB FOLLOW UP TRANSABDOMINAL APPROACH Routine 04/27/2025 2:58 PM EDT size inconsistent with dates ([facility]) POCT URINALYSIS DIPSTICK Routine 04/27/2025 1:20 PM EDT Third trimester ([facility]) TBH URINE MICROSCOPIC ONLY Routine 04/25/2025 4:15 PM EDT AMNISURE Routine 04/25/2025 4:15 PM EDT TBH UA (CLEAN/CATCH) HAND II TUBE BENDER/MICRO IF IND. Routine 04/25/2025 4:15 PM EDT POCT URINALYSIS DIPSTICK Routine 04/12/2025 3:28 PM EDT Third trimester ([facility]) POCT URINALYSIS DIPSTICK Routine 03/29/2025 3:51 PM EDT 30 weeks gestation of ([facility]) POCT URINALYSIS DIPSTICK Routine 03/15/2025 3:29 PM EDT Third trimester ([facility]) GLUCOSE 1 HOUR Routine 03/06/2025 9:29 [...] Positive Urine 2025 3:07 PM EDT Deisy Howell DO POINT OF CARE TEST ENTER/EDIT OR DERABLES Final Result * US OB BPP W NON-STRESS (05/08/2025 9:49 PM EDT) Anatomical Region Laterality Modality Other 05/08/2025 9:49 PM EDT Narrative 05/08/2025 9:[place] [address] Ultrasound Report Signed Patient: JOCELYN FREEMAN V MR#: [id number] : 1995 Acct:[id number] Age/Sex: 29 / F ADM Date: 05/08/25 Loc: US Attending Dr: Deisy Howell D.O. Ordering Physician: Deisy Howell D.O. Date of Service: 05/08/25 Procedure(s): US OB BPP w non-stress Accession Number(s): [id number] cc: Deisy Howell D.O.; Shashi Hargrove M.D. The [address] [address] Patient Name: JOCELYN FREEMAN MRN: [facility]:[id number] date: 1995 Sex: F Assigned Patient Location: [facility] Current Patient Location: Accession/Order Number: [id number] Exam Date: 05/08/2025 21:48 Report Date: 05/08/2025 [...] Graham M.D. 05/08/2025 9:49 PM Dictation Location: [place] [address] Electronically authenticated by: [id number] Y Date: 05/08/2025 21:49 Dictated By: Daniel Graham D.O. Signed By: 05/08/252151 DD/ 48 TD/TT: Lean Manufacturing Leader: Procedure Note Radiology, Radiologist, - 05/08/2025 [place] [address] Ultrasound Report Signed Patient: JOCELYN FREEMAN VMR#: [id number] : 1995Acct:[id number] Age/Sex: 29 / FADM Date: 05/08/25 Loc: US Attending Dr: Deisy Howell D.O. Ordering Physician: Deisy Howell D.O. Date of Service: 05/08/25 Procedure(s): US OB BPP w non-stress Accession Number(s): [id number] cc: Deisy Howell D.O.; Shashi Hargrove M.D. The [place] [id number] Patient Name: JOCELYN FREEMAN MRN: [id number] date: 1995 Sex: F Assigned Patient Location: [facility] Current Patient Location: Accession/Order Number: [id number] Exam Date: 05/08/2025 21:48 Report Date: 05/08/2025 [...] Graham M.D. 05/08/2025 9:49 PM Dictation Location: [employer] Electronically authenticated by: [id number] Y Date: 1:49 Dictated By: Daniel Graham D.O. Signed By:05/08/252151 DD/ 48 TD/TT: Lean Manufacturing Leader: us Deisy Howell DO [facility] Final [...] II, MD, PHD at 28-Apr-2025 08:26:54 AM [facility] Procedure Note Tato Amaya MD - [...] signed by TATO AMAYA II, MD, PHD [id number] 08:26:54 AM [facility] us Deisy Dante DO IMG OB US PROCEDURES Final Resul t * AMNISURE (04/25/2025 4:15 PM EDT) [facility] AMNISURE NEGATIVE NEGATIVE TBH 04/25/2025 4:15 PM EDT 04/25/2025 4:20 PM EDT Narrative [facility] - 04/25/2025 4:33 PM EDT us Deisy Dante DO LAB BLOOD ORDERABLES Final Resul t [facility] * (ABNORMAL) TBH URINE MICROSCOPIC ONLY (04/25/2025 4:15 PM EDT) [facility] WBC 10-20(A) NONE SEEN #/HPF TBH [...] [facility] * (ABNORMAL) TBH UA (CLEAN/CATCH) HAND II TUBE BENDER/MICRO IF IND. (04/25/2025 4:15 PM EDT) [facility] COLOR URINE LT. YELLOW YELLOW TBH CLARITY [...] us Deisy Dante DO [facility] Final Result [facility] * GLUCOSE 1 HOUR (03/06/2025 9:29 AM EDT) GLUCOSE 1 HOUR 116 <130 mg/dL TBH 03/06/2025 9:29 AM EDT 03/06/2025 9:32 AM EDT Narrative [facility] - 03/06/2025 10:05 AM EDT Deisy Dante DO LAB BLOOD ORDERABLES Final Resul t [facility] TB * (ABNORMAL) ALL CBC WITH AUTO [...] DO [facility] Final Result Performing Organization Address [facility]/ZIP Co de Phone Number [facility] * Pap Smear (12/27/2024 12:00 AM EST) Swab Cervical swab / Unknown us Kelle [facility] LAB CYTOLOGY ORDERABLES Final Re sult EXTERNAL LAB * THINPREP PAP AND HPV MRNA E6/E7 W/RFL HPV 16,18/45 (07/09/2023 3:38 PM EDT) Kelle [facility] LAB BLOOD ORDERABLES Final Resul t EXTERNAL LAB from Last 3 Months or Most Recently Relevant to Health Maintenance Insurance [facility] MEDICAID [facility] MEDICAID Care Teams Morphologist Relationship Specialty Start Date End Date Shashi Hargrove MD [address] [place] [address] PCP - General Family Medicine 05/11/23
--- OUTSIDE RECORDS SUMMARY | 2025-05-11 16:00 | XMS_ITS | Encounter Summary ---
Author Organization [facility] Address [address] [place] [address] Care Team Providers Care Materials Research Engineer Name Role Phone Shashi Hargrove MD Primary Care Provider [phone] Encounter Details Date Type Department Care Team ([facility] Contact Info) Description 05/08/2025 Clinisync Result Encounter [facility] External Department Unsolicited Deisy Howell DO [address] [place], [place] [phone] Social History Tobacco Use Types Packs/Day Years [...] PM EDT Routine [facility] [address] [facility] [place] [phone] Kelle Mosley PA [address] [place] [address] documented as of this encounter Procedures Procedure Name Priority Date/Time Associated Diagnosis Comments US OB BPP W NON-STRESS 05/08/2025 9:49 PM EDT documented in this encounter Results * US OB BPP W NON-STRESS (05/08/2025 9:49 PM EDT) Anatomical Region Laterality Modality Other 05/08/2025 9:49 PM EDT Narrative 05/08/2025 9:52 [place] [address] Ultrasound Report Signed Patient: JOCELYN FREEMAN V MR#: [id number] : 1995 Acct:[id number] Age/Sex: 29 / F ADM Date: 05/08/25 Loc: US Attending Dr: Deisy Howell D.O. Ordering Physician: Deisy Howell D.O. Date of Service: 05/08/25 Procedure(s): US OB BPP w non-stress Accession Number(s): [id number] cc: Deisy Howell D.O.; Shashi Hargrove M.D. [place] [id number] Patient Name: JOCELYN FREEMAN MRN: TBH:[id number] date: 1995 Sex: F Assigned Patient Location: [facility] Current Patient Location: Accession/Order Number: [id number] Exam Date: 05/08/2025 21:48 Report Date: 05/08/2025 [...] Graham M.D. 05/08/2025 9:49 PM Dictation Location: exsulin Electronically authenticated by: [id number] Y Date: 05/08/2025 21:49 Dictated By: Daniel Graham D.O. Signed By: 05/08/252151 DD/ 48 TD/TT: Condemnation Engineer: Procedure Note Radiology, Radiologist, - 05/08/2025 [place] [address] Ultrasound Report Signed Patient: JOCELYN FREEMAN VMR#: [id number] : 1995Acct:[id number] Age/Sex: FADM Date: 05/08/25 Loc: US Attending Dr: Deisy Howell D.O. Ordering Physician: Deisy Howell D.O. Date of Service: 05/08/25 Procedure(s): US OB BPP w non-stress Accession Number(s): [id number] cc: Deisy Howell D.O.; Shashi Hargrove M.D. The [address] [address] Patient Name: JOCELYN FREEMAN MRN: [facility]:[id number] date: 1995 Sex: F Assigned Patient Location: [facility] Current Patient Location: Accession/Order Number: [id number] Exam Date: 05/08/2025 21:48 Report Date: 05/08/2025 [...] Graham M.D. 05/08/2025 9:49 PM Dictation Location: exsulin Electronically authenticated by: [id number] Y Date: :49 Dictated By: Daniel Graham D.O. Signed By:05/08/252151 DD/ 48 TD/TT: Condemnation Engineer: us Deisy Howell DO [facility] Final Result documented in this encounter Visit Diagnoses Not on filedocumented in this encounter Care Teams Materials Research Engineer Relationship Specialty Start Date End Date Shashi Hargrove MD [address] [place] [address] PCP - General Family Medicine 05/11/23 documented as of this encounter
--- OUTSIDE RECORDS SUMMARY | 2025-05-11 16:00 | XMS_ITS | Encounter Summary ---
Author Organization Alex Sultanael[facility] Address [address] [place] [address] Care Team Providers Care Roofing Machine Tender Name Role Phone Shashi Hargrove MD Primary Care Provider [phone] Encounter Details Date Type Department Care Team ([facility] st Contact Info) Description 09/09/2014 FollowUp Telephone Encounter [facility] Labor and Delivery [address] [place], [place] [phone] Delaney Mccray RN Social History Tobacco Use [...] y.o. Call made 09/09/2014 11:59 AM To [phone] (home) [x] No answer; unable to leave [...] on filedocumented in this encounter Care Teams Roofing Machine Tender Relationship Specialty Start Date End Date Shashi Hargrove MD [address] [place] [address] PCP - General 04/05/15 documented as of this encounter
--- OUTSIDE RECORDS SUMMARY | 2025-05-11 16:00 | XMS_ITS | Encounter Summary ---
Author Organization Alex [facility]ana[facility] Address [address] [place] [address] Care Team Providers Care Store Coordinator Name Role Phone Shashi Hargrove MD Primary Care Provider [phone] Encounter Details Date Type Department Care Team ([facility] st Contact Info) Description 09/10/2014 FollowUp Telephone Encounter [facility] Labor and Delivery [address] [place], [place] [phone] Delaney Mccray RN Social History Tobacco Use [...] 19 y.o. Call made 09/10/2014 1405 To [phone] (home) [] No answer [] Message left [...] your baby had an appointment with the coke still cleaner yet? scheduled this week Have you made [...] there. Arpita and Katina were especially great. [place] that Katina really went the extra mile to make sure we were comfortable. Was there anything we could have done to improve your stay? No documented in this encounter Plan of Treatment Not on file documented as of this encounter Visit Diagnoses Not on filedocumented in this encounter Care Teams Store Coordinator Relationship Specialty Start Date End Date Shashi Hargrove MD [address] [place] [address] PCP - General 04/05/15 documented as of this encounter
--- OUTSIDE RECORDS SUMMARY | 2025-05-11 16:00 | XMS_ITS | Encounter Summary ---
Author Organization [facility] Address [address] [place] [address] Care Team Providers Care Metal Furniture Repairer Name Role Phone Shashi Hargrove MD Primary Care Provider [phone] Encounter Details Date Type Department Care Team (Late Contact Info) Description 05/04/2025 Telephone [facility] BCP OB [address] [facility] [place] [phone] Katie Fitzgerald MA Social History Tobacco Use [...] for most recent ultrasound. Orders faxed to [facility] pt to call and schedule. documented in this encounter Plan of Treatment Upcoming Encounters Date Type Department Care Team (Late Contact Info) Description 05/17/2025 1:50 PM EDT Routine [facility] BCP OB [address] [facility] [place] [phone] Kelle Mosley PA [address] [facility] [place] [address] Scheduled Orders Name Type Priority Associated Diagnoses Orde r Schedule US biophysical profile w non stress test Imaging Routine Polyhydramnios affecting in third trimester ([facility]) Expected: 05/04/2025 (Approximate), Expires: 11/03/2025 documented as of this encounter Visit Diagnoses Diagnosis Polyhydramnios affecting in third trimester ([facility]) documented in this encounter Care Teams Metal Furniture Repairer Relationship Specialty Start Date End Date Shashi Hargrove MD [address] [facility] [place] [address] PCP - General Family Medicine 05/11/23 documented as of this encounter
--- OUTSIDE RECORDS SUMMARY | 2025-05-11 16:00 | XMS_ITS | Encounter Summary ---
Author Organization [facility] Address [address] [place] [address] Care Team Providers Care Sample Shoe Inspector And Reworker Name Role Phone Shashi Hargrove MD Primary Care Provider [phone] Encounter Details Date Type Department Care Team ([facility] Contact Info) Description 05/05/2025 Patient Outreach [facility] [address] [place] [phone] Kelle Craig LPN [address] [place] [address] Social History Tobacco Use Types Packs/Day Years [...] [facility] BCP OB [address] [place] [address] Kelle Mosley, PA [address] [facility] [place] [address] documented as of this encounter Visit Diagnoses Not on filedocumented in this encounter Care Teams Sample Shoe Inspector And Reworker Relationship Specialty Start Date End Date Shashi Hargrove MD [address] [place] [place] [address] PCP - General Family Medicine 05/11/23 documented as of this encounter
--- OUTSIDE RECORDS SUMMARY | 2025-05-11 16:00 | XMS_ITS ---
Author Organization [facility] Address [address] [place] [address] Care Team Providers Care Internet Designer Name Role Phone Shashi Hargrove MD Primary Care Provider [phone] Comprehensive [facility]aternal Care ([facility]) Status:Enrolled (Active) Start date:05/02/2025 Enrollment date:05/05/2025 Enrollment reason:Identified by Health Plan Case Team Name Relationship Phone Kelle Craig LPN(Responsible Staff) Licensed [facility] Nurse [phone] Continued Care and Services Coordination
--- OUTSIDE RECORDS SUMMARY | 2025-05-11 16:00 | XMS_ITS | Encounter Summary ---
Author Organization [facility] Address [address] [place] [address] Care Team Providers Care Canoe Inspector Final Name Role Phone Shashi Hargrove MD Primary Care Provider [phone] Encounter Details Date Type Department Care Team ([facility] Contact Info) Description 05/05/2025 Abstract [facility] [address] [place] [address] Kelle Craig LPN [address] [place] [address] Social History Tobacco Use Types Packs/Day Years [...] EDT Routine [facility] BCP OB [address] [facility] [place] [phone] Kelle Mosley PA [address] [facility] [place] [address] documented as of this encounter Visit Diagnoses Not on filedocumented in this encounter Care Teams Canoe Inspector Final Relationship Specialty Start Date End Date Shashi Hargrove MD [address] [facility] [place] [address] PCP - General Family Medicine 05/11/23 documented as of this encounter
--- OUTSIDE RECORDS SUMMARY | 2025-05-11 16:00 | XMS_ITS | Encounter Summary ---
Author Organization [facility] Address [address] [place] [place] [address] Care Team Providers Care Industrial Tractor Driver Name Role Phone Shashi Hargrove MD Primary Care Provider [phone] Encounter Details Date Type Department Care Team ([facility] Contact Info) Description 04/27/[address] [facility] OB [address] [facility] [place] [address] Kelle Mosley PA [address] [place] [address] Dr [place], [facility]11 Social History Tobacco Use Types [...] PM EDT Routine [facility] BCP OB [address] [place] [address] Kelle Mosley, PA [address] [place] [address] Dr [place], [facility]11 documented as of this encounter Visit Diagnoses Not on filedocumented in this encounter Care Teams Industrial Tractor Driver Relationship Specialty Start Date End Date Shashi Hargrove MD [address] [place] [address] PCP - General Family Medicine 05/11/23 documented as of this encounter
[2025-05-11 16:31] VITALS: BP 116/72; PULSE 80
== END 2025-05-11 16:38 | disposition home or self-care (01) ==
LOC: FBCO 15:55 → FBC 16:01
PROVIDERS: PCP Family Medicine; Visit Provider Obstetrics & Gynecology
DX: O40.3XX0 Polyhydramnios, third trimester, not applicable or unspecified (principal); Z3A.36 36 weeks gestation of pregnancy
CPT/HCPCS: 59025; 87081

== ENCOUNTER 2025-05-15 16:59 | Outpatient (OUT) | payer OTHER, SELFPAY ==
--- OUTSIDE RECORDS SUMMARY | 2015-04-06 01:53 | XMS_ITS | Encounter Summary ---
Author Organization [facility] Address [address] [place] [address] Care Team Providers Care Ambulatory Nurse Name Role Phone Shashi Hargrove MD Primary Care Provider [phone] Encounter Details Date Type Department Care Team (Late st Contact Info) Description 04/06/2015 1:53 AM EDT Hospital Encounter MTH PRE ADMIT [address] [phone] Abdi Mcgill MD [address] [facility] [address] [facility] [address] [place] [address] Social History Tobacco Use Types Packs/Day Years [...] UA YELLOW YEL 04/06/2015 12:25 PM EDT [facility] Turbidity UA CLEAR CLEAR 04/06/2015 12:25 PM EDT [facility] Glucose, Ur NEGATIVE NEG 04/06/2015 12:25 PM EDT [facility] Bilirubin Urine NEGATIVE NEG 5 12:25 PM EDT [facility] Ketones, Urine NEGATIVE NEG 04/06/2015 12:25 PM EDT [facility] Specific [place], UA >1.030(H) 1.010 - 1.020 04/06/2015 12:25 PM EDT [facility] Urine Hgb NEGATIVE NEG 04/06/2015 12:25 PM EDT [facility] pH, UA 6.0 5.0 - 9.0 04/06/2015 12:25 PM EDT [facility] Protein, UA NEGATIVE NEG 04/06/2015 12:25 PM EDT [facility] Urobilinogen, Urine Normal NORM 04/06/2015 12:25 PM EDT [facility] Nitrite, Urine NEGATIVE NEG 04/06/2015 12:25 PM EDT [facility] Leukocyte Esterase, Urine TRACE(A) NEG 04/06/2015 12:25 PM EDT [facility] Urinalysis Comments NOT REPORTED [facility] - 04/06/2015 12:25 PM EDT [facility] WBC, UA 0 TO 2 0 - 5 /HPF 04/06/2015 12:25 PM EDT [facility] RBC, UA None 0 - 2 /HPF 04/06/2015 12:25 PM EDT [facility] Casts UA NOT REPORTED 0 - 2 /LPF [facility] Crystals, UA NOT REPORTED NONE /HPF [facility] Epithelial Cells, UA 0 TO 2 0 - 25 /HPF 04/06/2015 12:25 PM EDT [facility] Renal Epithelial, UA NOT REPORTED 0 /HPF [facility] Bacteria, UA NOT REPORTED NONE [facility] Mucus, UA NOT REPORTED NONE [facility] Trichomonas NOT REPORTED NONE [facility] Amorphous, UA 1+(A) NONE 04/06/2015 12:25 PM EDT [facility] Comment: Performed at [address] [place] [address] ([phone] Other Observations UA NOT REPORTED NREQ [facility] Yeast, UA NOT REPORTED NONE [facility] URINE SPECIMEN / Unknown 04/06/2015 11:11 AM EDT 04/06/2015 11:12 AM EDT us Abdi Mcgill MD URINE ORDERABLES Final Result [facility] [address] [place] [address], [facility] [phone] [facility] * TYPE AND SCREEN (04/06/2015 11:11 AM EDT) Expiration Date 04/13/2015 5 11:47 AM EDT [facility] Arm Band Number [id number] 11:47 AM EDT [facility] ABO/Rh B POSITIVE 04/06/2015 11:47 AM EDT [facility] Antibody Screen NEGATIVE 5 12:19 PM EDT [facility] Comment: Performed at [address] [place] [address] ([phone] Blood (substance) BLOOD SPECIMEN / Unknown 04/06/2015 11:11 AM EDT 04/06/2015 11:12 AM EDT Abdi Mcgill MD BLOOD BANK TEST ORDERABLES Fi nal Result Performing Organization Address [facility]/ZIP Co de Phone Number [facility] [address] [place] [address] [facility] * HCG Qualitative, Serum (04/06/2015 11:11 AM EDT) Preg, Serum NEGATIVE NEG 04/06/2015 12:33 PM EDT [facility] Comment: Performed at [address] [place], [place] [id number] ([phone] Blood (substance) BLOOD SPECIMEN / Unknown 04/06/2015 11:11 AM EDT 04/06/2015 11:12 AM EDT Abdi Mcgill MD CHEMISTRY ORDERABLES Final Re sult Performing Organization Address [facility] Co de Phone Number [facility] [address] [place] [address] [facility] * (ABNORMAL) CBC auto differential (04/06/2015 11:11 AM EDT) [facility] WBC 6.9 4.5 - 13.5 k/uL 04/06/2015 11:31 AM EDT [facility] RBC 4.36 4.0 - 5.2 m/uL 04/06/2015 11:31 AM EDT [facility] Hemoglobin 12.6 12.0 - 16.0 g/dL 04/06/2015 11:31 AM EDT [facility] Hematocrit 37.5 36 - 46 % 04/06/2015 11:31 AM EDT [facility] MCV 86.2 80 - 100 fL 04/06/2015 11:31 AM EDT [facility] MCH 28.9 26 - 34 pg 04/06/2015 11:31 AM EDT [facility] MCHC 33.6 31 - 37 g/dL 04/06/2015 11:31 AM EDT [facility] RDW 13.8 12.1 - 15.2 % 04/06/2015 11:31 AM EDT [facility] Platelets 277 140 - 450 k/uL 04/06/2015 11:31 AM EDT [facility] MPV NOT REPORTED 6.0 - 12.0 fL [facility] Differential Type NOT REPORTED [facility] Seg Neutrophils 66(H) 34 - 64 % 5 11:31 AM EDT [facility] Lymphocytes 21(L) 25 - 45 % 04/06/2015 11:31 AM EDT [facility] Monocytes % 10 0 - 12 % 04/06/2015 11:31 AM EDT [facility] Eosinophils % 3 0 - 8 % 04/06/2015 11:31 AM EDT [facility] Basophils % 0 0 - 2 % 04/06/2015 11:31 AM EDT [facility] Neutrophils Absolute 4.50 1.8 - 7.7 k/uL 04/06/2015 11:31 AM EDT [facility] Lymphocytes Absolute 1.40 1.0 - 4.8 k/uL 04/06/2015 11:31 AM EDT [facility] Monocytes Absolute 0.70 0.0 - 1.0 k/uL 04/06/2015 11:31 AM EDT [facility] Eosinophils Absolute 0.20 0.0 - 0.4 k/uL 04/06/2015 11:31 AM EDT [facility] Basophils Absolute 0.00 0.0 - 0.2 k/uL 04/06/2015 11:31 AM EDT [facility] Comment: Performed at [address] [place] [address] ([phone] WBC Morphology NOT REPORTED [facility] RBC Morphology NOT REPORTED [facility] Platelet Estimate NOT REPORTED [facility] BLOOD SPECIMEN / Unknown 04/06/2015 11:11 AM EDT 04/06/2015 11:12 AM EDT us Abdi Mcgill MD HEMATOLOGY ORDERABLES Final R esult [facility] [address] [place] [address], [facility] [phone] [facility] documented in this encounter Visit Diagnoses Not on filedocumented in this encounter Care Teams Ambulatory Nurse Relationship Specialty Start Date End Date Shashi Hargrove MD [address] [place] [address] PCP - General 04/05/15 documented as of this encounter
--- OUTSIDE RECORDS SUMMARY | 2024-12-08 04:09 | XMS_ITS ---
Author Organization The [facility] in [place] Address [address] [place] [address] Care Team Providers Care Hard Rock Miner Name Role Phone Ethan Hargrove Primary Care Provider [phone] REASON FOR VISIT pink eye Medications Medication SIG (Take, Route, Frequency, Duration) Notes Start Date End Date Status Pzwqswxc-Kauqwrlru-Suykqnh h 3.5-67253-2.1 1 drop into affected eye Ophthalmic Four times a day for 7 days 12/08/2024 Active Encounters Encounter Location Date Provider Diagnosis [address] [place] [address] 12/08/2024 Ethan Hargrove Plan Of Treatment Medication Medication Name Sig Start Date Stop Date Notes Vauxvaaw-Qoygydxap-Wtxooycx 3.5-72713-0.1 1 drop into affected eye Ophthalmic Four times a day for 7 days 12/08/2024 Progress Notes * Jocelyn FREEMAN VDOB:1995 (29 yo F)Acc No.[id number]:12/08/2024 Patient: Magaly JAIMES Jocelyn Stafford :1995 A ge:29 Y S ex:Female Address:[address] [place] [address], [place], [address] * Refills Start Xeapzbzd-Uhhodxrux-Yxzixhgc Suspension, 3.5-46661-9.1, Ophthalmic, 1.4 ML, 1 drop into affected eye, Four times a day, 7 days, Refills=1 * true * Date: Generated for Printi ng/Faradhag/Rayitting on: 0 05/15/2025 05:01 PM EDT
--- OUTSIDE RECORDS SUMMARY | 2024-12-12 07:55 | XMS_ITS ---
Author Organization The [facility] in [place] Address [address] [place] [address] Care Team Providers Care Slitter Processed Film Name Role Phone Ethan Hargrove Primary Care Provider [phone] REASON FOR VISIT sinus infection- not better Medications Medication SIG (Take, Route, Fr equency, Duration) Notes Start Date End Date Status Cephalexin 500 MG 2 tabs Orally bid for 10 days Active Encounters Encounter Location Date Provider Diagnosis [facility] [address] [place] [address] 12/12/2024 Ethan Hargrove Acute non-recurrent sinusitis, unspecified [...] * Jocelyn FREEMAN VDOB:1995 (29 yo F)Acc No.[id number]:12/12/2024 Patient: Magaly JAIMES Jocelyn Rivera :1995 A ge:29 Y S ex:Female Address:[address] [place] [address], [address] * Refills Refill Cephalexin Tablet, 500 MG, Orally, 40 Tablet, 2 tabs, bid, 10 days * true * Date: Generated for Printi ng/Faxing/eTransmitting on: 0 05/15/2025 05:01 PM EDT
--- OUTSIDE RECORDS SUMMARY | 2025-01-13 10:40 | XMS_ITS ---
Author Organization [facility] Address [address] [place] [address] Care Team Providers Care Project Manager/Team Coach Name Role Phone Dr. Collins Mei Primary Care Provider REASON FOR VISIT FILLING Encounters Encounter Location Date Provider Diagnosis [facility] [address] [place] [address] 01/13/2025 Collins Mei Plan Of Treatment No Information Progress Notes * ASHLEE FREEMANNDOB:1995 ( 30 yo F)Acc No.[id number]:01/13/2025 Patient: ROSALIE SEGURA Provider: Laura Mei DDS :1995 A ge:29 Y S ex:Female Date:01/13/2025 Address:[address] [place], [place] [id number] Subjective: * Chief Complaints: * 1 . FILLING. * Medical History: Objective: * Vitals: Assessment: Plan: * Treatment: * Images: * Electronic signature of Dr. Collins Mei , DMD on 05/15/2025 at 08:03 AM EDT Sign off status: Pending * Provider: Laura Mei DDS Date: 01/13/2025 Generated for Jennifer ng/Faradhag/eTransmitting on: 0 05/15/2025 08:03 AM EDT
--- OUTSIDE RECORDS SUMMARY | 2025-03-10 10:15 | XMS_ITS ---
Author Organization [facility] Address [address] [place] [address] Care Team Providers Care Deliverer Pharmacy Name Role Phone Dr. Collins Mei Primary Care Provider [phone] Caryn Roth [phone] REASON FOR VISIT PROPHY Encounters Encounter Location Date Provider Diagnosis [facility] [address] [place] [address] 03/10/2025 Caryn Joyner Plan Of Treatment No Information Progress Notes * FREEMANASHLEE CHINCHILLANDOB:1995 ( 30 yo F)Acc No.[id number]:03/10/2025 Patient: ROSALIE SEGURA Provider: Melody Joyner :1995 A ge:29 Y S ex:Female Date:03/10/2025 Address:[address] [place], [place] [phone] Pcp:Dr. Collins Mei Subjective: * Chief Complaints: * 1 . PROPHY. * Medical History: Objective: * Vitals: Assessment: Plan: * Treatment: * Images: * Electronic signature of Farhan Joyner on 05/15/2025 at 08:03 AM EDT Sign off status: Pending * Provider: Melody Joyner Date: 03/10/2025 Generated for Hardiki ng/Faradhag/eTransmitting on: 0 05/15/2025 08:03 AM EDT
--- OUTSIDE RECORDS SUMMARY | 2025-04-25 12:34 | XMS_ITS ---
Author Organization [facility] [place] Address [address] [place] [address] Care Team Providers Care Inventory Audit Clerk Name Role Phone Ethan Hargrove Primary Care Provider [phone] REASON FOR VISIT UA Encounters Encounter Location Date Provider Diagnosis [facility] [address] [place] [address] 04/25/2025 Ethan Hargrove Plan Of Treatment No Information Progress Notes * Jocelyn FREEMAN VDOB:1995 (29 yo F)Acc No.[id number]:04/25/2025 Patient: Magaly TURNERJocelyn CHINCHILLA V :1995 A ge:29 Y S ex:Female Address:[address] [place] [address], [address] * true * Date: Generated for Jennifer wren/Ted/eTransmitting on: 0 05/15/2025 08:03 AM EDT
--- OUTSIDE RECORDS SUMMARY | 2025-05-10 14:30 | XMS_ITS | Encounter Summary ---
Author Organization [facility] Address [address] [facility] [place] [address] Care Team Providers Care Weasand Trimmer Name Role Phone Shashi Hargrove MD Primary Care Provider [phone] Reason for Visit * Reason Comments Routine Visit Encounter Details Date Type Department Care Team ([facility] Contact Info) Description 2025 2:30 PM EDT Routine [facility] [address] [facility] [place] [place] [phone] Graham Howell, [address] [facility] [place] [address] Third trimester ([facility]); 36 weeks gestation of ([facility]) Social History Tobacco Use Types Packs/Day Years [...] abdominal pain 05/27/2023 Scoliosis 05/27/2023 Vaginal delivery ([facility]) 09/06/2014 Encounter for weight management 06/27/2024 Resolved [...] nursing note reviewed. Exam conducted with a top hat body maker present. Vitals: Estimated body mass index is 47.06 kg/m?? as calculated from the following: Height as of 07/26/24: 5' 10 . Weight as of this encounter: 328 lb. BP: 132/86 Patient's last menstrual period was 08/29/2024. ASSESSMENT & PLAN ICD-10-CM 1. Third trimester ([facility]) Z34.93 POCT urinalysis dipstick manually resulted CULTURE, GROUP B STREP WITH SUSCEPTIBLITY CULTURE, GROUP B STREP WITH SUSCEPTIBLITY 2. 36 weeks gestation of ([facility]) Z3A.36 Return OB: Patient presents today for [...] Routine [facility] BCP OB [address] [place] [address] Kelle Mosley PA [address] [place] [address] Scheduled Orders Name Type Priority Associated Diagnoses Orde r Schedule CULTURE, GROUP B STREP WITH SUSCEPTIBLITY Lab Routine Third trimester ([facility]) Expected: 2025, Expires: 2026 documented as of this encounter Procedures Procedure Name Priority Date/Time Associated Diagnosis Comments POCT URINALYSIS DIPSTICK Routine 2025 3:07 PM EDT Third trimester ([facility]) documented in this encounter Results * (ABNORMAL) [...] this encounter Visit Diagnoses Diagnosis Third trimester ([facility]) state, incidental 36 weeks gestation of ([facility]) documented in this encounter Care Teams Weasand Trimmer Relationship Specialty Start Date End Date Shashi Hargrove MD [address] [place] [address] PCP - General Family Medicine 05/11/23 documented as of this encounter
--- OUTSIDE RECORDS SUMMARY | 2025-05-15 17:01 | XMS_ITS | Encounter Summary ---
Author Organization Alex Ivis Rose [facility] Address [address] [place] [address] Care Team Providers Care Manager Ship Name Role Phone Shashi Hargrove MD Primary Care Provider [phone] Encounter Details Date Type Department Care Team (Late st Contact Info) Description 04/11/2015 Post-op Telephone [facility] General Surgery [address] [place], [place] [phone] Leila Wolff RN Social History Tobacco Use [...] filedocumented in this encounter Care Teams Manager Ship Relationship Specialty Start Date End Date Shashi Hargrove MD [address] [place] [address] PCP - General 04/05/15 documented as of this encounter
--- OUTSIDE RECORDS SUMMARY | 2025-05-15 17:01 | XMS_ITS | Encounter Summary ---
Author Organization [facility] Address [address] [place] [address] Care Team Providers Care Manager Wellness Name Role Phone Shashi Hargrove MD Primary Care Provider [phone] Encounter Details Date Type Department Care Team ([facility] Contact Info) Description 06/02/2024 Abstract [facility] OB [address] [facility] [place] [phone] Graham Howell DO [address] [place] [address] Dr [place]isha [place], [place] [address] Social History Tobacco Use Types Packs/Day Years [...] Upcoming Encounters Date Type Department Care Team ([facility] Contact Info) Description 05/17/2025 1:50 PM EDT Routine [facility] OB [address] [facility] [place] [address] Kelle Mosley PA [address] [facility] [address] [place], [facility]11 documented as of this encounter Visit Diagnoses Not on filedocumented in this encounter Care Teams Manager Wellness Relationship Specialty Start Date End Date Shashi Hargrove MD [address] [place] [address] PCP - General Family Medicine 05/11/23 documented as of this encounter
--- OUTSIDE RECORDS SUMMARY | 2025-05-15 17:01 | XMS_ITS | Encounter Summary ---
Author Organization [facility] Address [address] [facility] [place] [address] Care Team Providers Care Business Solution Analyst Name Role Phone Shashi Hargrove MD Primary Care Provider [phone] Encounter Details Date Type Department Care Team ([facility] Contact Info) Description 05/03/2023 Abstract [facility] OB [address] [facility] [place] [phone] Kelle Mosley PA [address] [place] [address] Dr [place], [place] [address] Social History Tobacco Use Types Packs/Day Years [...] Description 05/17/2025 1:50 PM EDT Routine [facility] OB [address] [place] [address] [place] [address] Kelle Mosley PA [address] [place] [address] [place] [phone] documented as of this encounter Visit Diagnoses Not on filedocumented in this encounter Care Teams Business Solution Analyst Relationship Specialty Start Date End Date Shashi Hargrove MD [address] [place] [address] PCP - General Family Medicine 05/11/23 documented as of this encounter
--- OUTSIDE RECORDS SUMMARY | 2025-05-15 17:01 | XMS_ITS | Encounter Summary ---
Author Organization [facility] Address [address] [facility] [place] [address] Care Team Providers Care Solidworks Drafter Name Role Phone Shashi Hargrove MD Primary Care Provider [phone] Encounter Details Date Type Department Care Team ([facility] Contact Info) Description 12/23/2024 Abstract [facility] BCP OB [address] [facility] [place] [address] Graham Howell DO [address] [facility] [address] [place], [facility]11 Social History Tobacco Use Types [...] PM EDT Routine [facility] BCP OB [address] [facility] [place] [address] Kelle Mosley PA [address] [facility] [address] [place], [place] [phone] documented as of this encounter Visit Diagnoses Not on filedocumented in this encounter Care Teams Solidworks Drafter Relationship Specialty Start Date End Date Shashi Hargrove MD [address] [place] [address] PCP - General Family Medicine 05/11/23 documented as of this encounter
--- OUTSIDE RECORDS SUMMARY | 2025-05-15 17:01 | XMS_ITS | Encounter Summary ---
Author Organization [facility] Address [address] [facility] [place] [address] Care Team Providers Care Tow Motor Mechanic Name Role Phone Shashi Hargrove MD Primary Care Provider [phone] Encounter Details Date Type Department Care Team ([facility] Contact Info) Description 12/23/2024 Abstract [facility] BCP OB [address] [facility] [place] [place] [address] Graham Howell DO [address] [facility] [address] Neisha [place], [facility]11 Social History Tobacco Use Types Packs/Day [...] PM EDT Routine [facility] BCP OB [address] [facility] [place] [address] Kelle Mosley PA [address] [facility] [address] [place], [place] [phone] documented as of this encounter Visit Diagnoses Not on filedocumented in this encounter Care Teams Tow Motor Mechanic Relationship Specialty Start Date End Date Shashi Hargrove MD [address] [place] [address] PCP - General Family Medicine 05/11/23 documented as of this encounter
--- OUTSIDE RECORDS SUMMARY | 2025-05-15 17:01 | XMS_ITS | Encounter Summary ---
Author Organization [facility] Address [address] [place] [address] Care Team Providers Care Pitch Filler Name Role Phone Shashi Hargrove MD Primary Care Provider [phone] Encounter Details Date Type Department Care Team ([facility] Contact Info) Description 06/28/2024 Clinisync Result Encounter N[facility] External Department Unsolicited Deisy Howell DO [address] [facility] [place] [address] Social History Tobacco Use Types Packs/Day Years [...] Upcoming Encounters Date Type Department Care Team ([facility] Contact Info) Description 05/17/2025 1:50 PM EDT Routine [facility] BCP OB [address] [facility] [place] [address] Kelle Mosley PA [address] [facility] [address] [place], [place] [phone] documented as of this encounter Procedures Procedure Name Priority Date/Time Associated Diagnosis Comments US PELVIS TRANSVAGINAL 06/28/2024 8:07 AM EDT documented in this encounter Results * US PELVIS TRANSVAGINAL (06/28/2024 8:07 AM EDT) Anatomical Region Laterality Modality Other 06/28/2024 8:07 AM EDT Narrative 06/28/2024 8:09 AM EDT [address] [address] Ultrasound Report Signed Patient: JOCELYN FREEMAN V MR#: [id number] : 1995 Acct:[id number] Age/Sex: 29 / F ADM Date: 06/27/24 Loc: [facility] Attending Dr: Deisy Howell D.O. Ordering Physician: Deisy Howell D.O. Date of Service: 06/27/24 Procedure(s): US pelvis transvaginal Accession Number(s): [id number] cc: Deisy Howell D.O.; Shashi Hargrove M.D. [place] [id number] Patient Name: JOCELYN FREEMAN MRN: [facility]:[id number] date: 1995 Sex: F Assigned Patient Location: [facility] Current Patient Location: Accession/Order Number: [id number] Exam Date: 06/27/2024 09:02 Report Date: 06/28/2024 [...] Signed By: 06/28/24 08 DD/ 08 TD/TT: Wire Hanger: Procedure Note Radiology, Radiologist, - 06/28/2024 [place] [address] Ultrasound Report Signed Patient: JOCELYN FREEMAN R#: [id number] : 1995Acct:[id number] Age/Sex: 29 / FADM Date: 06/27/24 Loc: [facility] Attending Dr: Deisy Howell D.O. Ordering Physician: Deisy Howell D.O. Date of Service: 06/27/24 Procedure(s): US pelvis transvaginal Accession Number(s): [id number] cc: Deisy Howell D.O.; Shashi Hargrove M.D. The [place] [id number] Patient Name: JOCELYN FREEMAN MRN: [facility]:[id number] date: 1995 Sex: F Assigned Patient Location: [facility] Current Patient Location: Accession/Order Number: [id number] Exam Date: 06/27/2024 09:02 Report Date: 06/28/2024 [...] Duarte M.D. Signed By:06/28/24808 DD/ 6 TD/TT: Wire Hanger: us Deisy Dante DO [facility] Final Result documented in this encounter Visit Diagnoses Not on filedocumented in this encounter Care Teams Pitch Filler Relationship Specialty Start Date End Date Shashi Hargrove MD [address] [place] [address] PCP - General Family Medicine 05/11/23 documented as of this encounter
--- OUTSIDE RECORDS SUMMARY | 2025-05-15 17:01 | XMS_ITS | Clinical Summary ---
Author Organization [facility] Address [address] [place] [address] Care Team Providers Care Counter Clerk [employer] Name Role Phone Shashi Hargrove MD Primary Care Provider [phone] Allergies No known active allergies Medications sertraline [...] Comment SPECIMEN RECEIVED 12/21/2018 7:08 AM EST [facility] CERVICAL SWAB / Unknown 12/20/2018 6:10 PM EST 12/20/2018 6:10 PM EST Abdi Mcgill MD PATHOLOGY/CYTOLOGY ORDERABLES Final Result Performing Organization Address City/[facility]/ZIP Co de Phone Number [facility] [address] [place] [address], [facility] [phone] [address], [facility] [phone] * HIV Rapid 1&2 (02/21/2014 2:51 PM EDT) [facility] Rapid HIV 1&2 NONREACTIVE NR 02/22/2014 2:29 PM EDT [facility] Comment: Interpretation: The presence of antibody [...] characteristics of this test were determined by [facility]. It has not been cleared or approved by the U.S. Food and Drug Administration. The FDA has determined that such clearance is not necessary. Performed at [address] [place] [address] ([phone] 02/21/2014 2:51 PM EDT 02/21/2014 2:51 PM EDT Rachel Mejía VICE CHAIRMAN - CNM IMMUNOLOGY ORDERABLES Final Result Performing Organization Address City/[facility]/ZIP Co de Phone Number [facility] [address] [place] [address], [facility] [phone] [facility] from Last 3 Months or Most [...] 3:03 PM 09/06/2014 12:25 AM Care Teams Counter Clerk [employer] Relationship Specialty Start Date End Date Shashi Hargrove MD [address] [place] [address] PCP - General 04/05/15
--- OUTSIDE RECORDS SUMMARY | 2025-05-15 17:01 | XMS_ITS | Encounter Summary ---
Author Organization [facility] Address [address] [place] [address] Care Team Providers Care Manager Acute Name Role Phone Shashi Hargrove MD Primary Care Provider [phone] Encounter Details Date Type Department Care Team ([facility] Contact Info) Description 11/03/2024 Abstract [facility] BCP OB [address] [place] [address] Graham Howell DO [address] [facility] [address] Neisha [place], [facility]11 Social History Tobacco Use Types Packs/Day Years [...] BCP OB [address] [place] [address] Kelle Mosley PA [address] [facility] [address] [place], [place] [phone] documented as of this encounter Visit Diagnoses Not on filedocumented in this encounter Care Teams Manager Acute Relationship Specialty Start Date End Date Shashi Hargrove MD [address] [place] [address] PCP - General Family Medicine 05/11/23 documented as of this encounter
--- OUTSIDE RECORDS SUMMARY | 2025-05-15 17:01 | XMS_ITS | Encounter Summary ---
Author Organization [facility] Address [address] [place] [address] Care Team Providers Care Yarn Tester Name Role Phone Shashi Hargrove MD Primary Care Provider [phone] Encounter Details Date Type Department Care Team ([facility] Contact Info) Description 06/29/2024 Abstract [facility] OB [address] [facility] [place] [phone] Graham Howell DO [address] [place] [address] Dr Neisha [place], [place] [address] Social History Tobacco Use Types Packs/Day Years [...] Upcoming Encounters Date Type Department Care Team ([facility] Contact Info) Description 05/17/2025 1:50 PM EDT Routine [facility] OB [address] [facility] [place] [address] Kelle Mosley PA [address] [facility] [address] [place], [facility]11 documented as of this encounter Visit Diagnoses Not on filedocumented in this encounter Care Teams Yarn Tester Relationship Specialty Start Date End Date Shashi Hargrove MD [address] [place] [address] PCP - General Family Medicine 05/11/23 documented as of this encounter
--- OUTSIDE RECORDS SUMMARY | 2025-05-15 17:01 | XMS_ITS | Encounter Summary ---
Author Organization [facility] Address [address] [place] [address] Care Team Providers Care Digital Content Marketing Manager Name Role Phone Shashi Hargrove MD Primary Care Provider [phone] Encounter Details Date Type Department Care Team ([facility] Contact Info) Description 10/14/2024 Abstract [facility] OB [address] [facility] [place] [phone] Graham Howell DO [address] [place] [address] Dr Neisha Dill, [place] [address] Social History Tobacco Use Types Packs/Day Years [...] Team ([facility] Contact Info) Description 05/17/2025 1:50 PM EDT Routine [facility] OB [address] [place] [address] Kelle Mosley PA [address] [place], [facility]11 documented as of this encounter Visit Diagnoses Not on filedocumented in this encounter Care Teams Digital Content Marketing Manager Relationship Specialty Start Date End Date Shashi Hargrove MD [address] [place] [address] PCP - General Family Medicine 05/11/23 documented as of this encounter
--- OUTSIDE RECORDS SUMMARY | 2025-05-15 17:01 | XMS_ITS | Encounter Summary ---
Author Organization [facility] Address [address] [place] [address] Care Team Providers Care Disulfurizer Tender Name Role Phone Shashi Hargrove MD Primary Care Provider [phone] Encounter Details Date Type Department Care Team ([facility] Contact Info) Description 05/31/2024 Abstract [facility] OB [address] [facility] [phone] Graham Howell DO [address] [place] [address] Dr Neisha Dill, [place] [address] Social History Tobacco Use Types Packs/Day Years [...] Upcoming Encounters Date Type Department Care Team ([facility] Contact Info) Description 05/17/2025 1:50 PM EDT Routine [facility] OB [address] [facility] [address] Kelle Mosley PA [address] [facility] [address] [place], [facility] documented as of this encounter Visit Diagnoses Not on filedocumented in this encounter Care Teams Disulfurizer Tender Relationship Specialty Start Date End Date Shashi Hargrove MD [address] [place] [address] PCP - General Family Medicine 05/11/23 documented as of this encounter
--- OUTSIDE RECORDS SUMMARY | 2025-05-15 17:01 | XMS_ITS | Encounter Summary ---
Author Organization [facility] Address [address] [place] [address] Care Team Providers Care Animal Doctor Name Role Phone Shashi Hargrove MD Primary Care Provider [phone] Encounter Details Date Type Department Care Team ([facility] Contact Info) Description 06/04/2023 Abstract [facility] OB [address] [facility] [place] [phone] Graham Howell DO [address] [place] [address] Dr Neisha Dill, [place] [address] Social History Tobacco Use Types Packs/Day Years [...] Upcoming Encounters Date Type Department Care Team ([facility] Contact Info) Description 05/17/2025 1:50 PM EDT Routine [facility] OB [address] [facility] [place] [address] Kelle Mosley PA [address] [facility] [address] [facility] [address] [place], [facility]11 documented as of this encounter Visit Diagnoses Not on filedocumented in this encounter Care Teams Animal Doctor Relationship Specialty Start Date End Date Shashi Hargrove MD [address] [place] [address] PCP - General Family Medicine 05/11/23 documented as of this encounter
--- OUTSIDE RECORDS SUMMARY | 2025-05-15 17:01 | XMS_ITS | Clinical Summary ---
Author Organization [facility] Address [address] [place] [address] Care Team Providers Care Toilet And Laundry Soap Supervisor Name Role Phone Shashi Hargrove MD Primary Care Provider [phone] Allergies Active Allergy Reactions Criticality Noted Date Comments Wound Dressings 12/25/2023 Other Reaction(s): hives Medications sertraline (Zoloft) 100 MG tablet Take 50 mg by mouth Daily Active magnesium oxide (Mag-Ox) 400 MG tabletIndications : headache in third trimester ([facility]) Take 1 tablet (400 mg) by mouth Daily 30 tablet 11 5 Active valACYclovir (Valtrex) 500 MG tabletIndications :Herpes zoster with complication Take 1 tablet (500 mg) by mouth Daily 30 tablet 11 5 04/28/20 25 cephalexin (Keflex) 500 MG capsuleIndication s:Third trimester ([facility]) Take 1 capsule (500 mg) by mouth [...] cyst of left ovary 04/10/2015 Vaginal delivery ([facility]) 09/06/2014 Estimated Date of Delivery Comme nts Yes 06/05/2025 Based on last me nstrual period of 08/29/2024 Encounters Date Type Department Care Team Description 2025 2:30 PM EDT Routine [facility] [address] [place] [address] Deisy Howell DO Third trimester ([facility]); 36 weeks gestation of ([facility]) 2025 Bamboo flowsheet [facility] [place] [address] [place] [address] Deisy Howell DO 05/08/2025 Clinisync Result Encounter [facility] External Department Unsolicited Deisy Howell DO 05/05/2025 Abstract [facility] [address] [place] [address] Kelle Craig LPN 05/05/2025 Patient Outreach [facility] [address] [place] [address] Kelle Craig LPN 05/04/2025 Telephone [facility] [address] [place] [address] Katie Fitzgerald MA 04/27/2025 3:00 PM EDT Ancillary Procedure [facility] [place] [address] [place] [address] size inconsistent with dates ([facility]) 04/27/2025 1:00 PM EDT Routine [facility] [place] [address] Kelle Mosley PA Third trimester ([facility]); 34 weeks gestation of ([facility]) 04/27/2025 Bamboo flowsheet [facility] [address] [place] [address] Kelle Mosley PA 04/25/2025 Clinisync Result Encounter [facility] External Department Unsolicited Deisy Howell, 04/25/2025 Telephone [facility] [address] [place] [address] Deisy Howell, 04/12/2025 2:30 PM EDT Routine [facility] OB [address] [facility] [place] [address] Deisy Howell, Third trimester ([facility]); 32 weeks gestation of ([facility]); size inconsistent with dates ([facility]) 04/12/2025 Bamboo flowsheet [facility] [address] [facility] [place] [address] Deisy Howell, 04/10/2025 Refill [facility] OB [address] [facility] [place] [address] Aleida Colon LPN headache in third trimester ([facility]) 03/29/2025 3:10 PM EDT Routine [facility] [address] [facility] [place] [address] Kelle Mosley PA Herpes zoster with complication (Primary Dx); 30 weeks gestation of ([facility]); Third trimester ([facility]) 03/29/2025 Bamboo flowsheet [facility] OB [address] [facility] [place] [address] Kelle Mosley PA 03/15/2025 2:50 PM EDT Routine [facility] OB [address] [facility] [place] [address] Deisy Howell, Third trimester ([facility]); 28 weeks gestation of ([facility]); H/O herpes zoster virus 03/15/2025 Bamboo flowsheet [facility] OB [address] [facility] [place] [address] Deisy Howell, DO 03/06/2025 Clinisync Result Encounter [...] PM EDT Routine [facility] OB [address] [facility] [place] [address] Kelle Mosley PA [address] [facility] [place] [address] Health Maintenance Due Date Last Done Comments Influenza Vaccine (Season Ended) 2025 10/28/20, 03/21/2014 Pap Smear 12/27/2027 12/27/2024, 06/23, 01/02/2021, Additional history exists Cervical Cancer Screening 07/09/2028 HPV/Cotest 07/09/2028 07/09/2023 Procedures Procedure Name Priority Date/Time Associated Diagnosis Comments POCT URINALYSIS DIPSTICK Routine 2025 3:07 PM EDT Third trimester ([facility]) US OB BPP W NON-STRESS 05/08/2025 9:49 PM EDT US OB FOLLOW UP TRANSABDOMINAL APPROACH Routine 04/27/2025 2:58 PM EDT size inconsistent with dates ([facility]) POCT URINALYSIS DIPSTICK Routine 04/27/2025 1:20 PM EDT Third trimester ([facility]) [facility]H URINE MICROSCOPIC ONLY Routine 04/25/2025 4:15 PM EDT AMNISURE Routine 04/25/2025 4:15 PM EDT TBH UA (CLEAN/CATCH) OTR COMPANY TRUCK DRIVER/MICRO IF IND. Routine 04/25/2025 4:15 PM EDT POCT URINALYSIS DIPSTICK Routine 04/12/2025 3:28 PM EDT Third trimester ([facility]) POCT URINALYSIS DIPSTICK Routine 03/29/2025 3:51 PM EDT 30 weeks gestation of ([facility]) POCT URINALYSIS DIPSTICK Routine 03/15/2025 3:29 PM EDT Third trimester ([facility]) GLUCOSE 1 HOUR Routine 03/06/2025 9:29 AM [...] PM EDT Narrative 05/08/2025 9:52 [place] [address] Ultrasound Report Signed Patient: JOCELYN FREEMAN V MR#: [id number] : 1995 Acct:[id number] Age/Sex: 29 / F ADM Date: 05/08/25 Loc: US Attending Dr: Deisy Howell D.O. Ordering Physician: Deisy Howell D.O. Date of Service: 05/08/25 Procedure(s): US OB BPP w non-stress Accession Number(s): [id number] cc: Deisy Howell D.O.; Shashi Hargrove M.D. The [address] [address] Patient Name: JOCELYN FREEMAN MRN: [facility]:[id number] date: 1995 Sex: F Assigned Patient Location: [facility] Current Patient Location: Accession/Order Number: [id number] Exam Date: 05/08/2025 21:48 Report Date: 05/08/2025 [...] Graham M.D. 05/08/2025 9:49 PM Dictation Location: [place] [address] Electronically authenticated by: [id number] Y Date: 05/08/2025 21:49 Dictated By: Daniel Graham D.O. Signed By: 05/08/252151 DD/ 48 TD/TT: Local Company Truck Driver: Procedure Note Radiology, Radiologist, - 05/08/2025 [place] [address] Ultrasound Report Signed Patient: JOCELYN FREEMAN VMR#: [id number] : 1995Acct:[id number] Age/Sex: 29 / FADM Date: 05/08/25 Loc: US Attending Dr: Deisy Howell D.O. Ordering Physician: Deisy Howell D.O. Date of Service: 05/08/25 Procedure(s): US OB BPP w non-stress Accession Number(s): [id number] cc: Deisy Howell D.O.; Shashi Hargrove M.D. The [place] [id number] Patient Name: JOCELYN FREEMAN MRN: [id number] date: 1995 Sex: F Assigned Patient Location: [facility] Current Patient Location: Accession/Order Number: [id number] Exam Date: 05/08/2025 21:48 Report Date: 05/08/2025 [...] Graham M.D. 05/08/2025 9:49 PM Dictation Location: [employer] Electronically authenticated by: [id number] Y Date: 1:49 Dictated By: Daniel Graham D.O. Signed By:05/08/252151 DD/ 48 TD/TT: Local Company Truck Driver: us Deisy Howell DO [facility] IMAGING Final [...] II, MD, PHD at 28-Apr-2025 08:26:54 AM [facility] Procedure Note Tato Amaya MD - [...] signed by TATO AMAYA II, MD, PHD [id number] 08:26:54 AM [facility] us Deisy Dante DO IMG OB US PROCEDURES Final Resul t * AMNISURE (04/25/2025 4:15 PM EDT) [facility] AMNISURE NEGATIVE NEGATIVE TBH 04/25/2025 4:15 PM EDT 04/25/2025 4:20 PM EDT Narrative [facility] - 04/25/2025 4:33 PM EDT us Deisy Dante DO LAB BLOOD ORDERABLES Final Resul t [facility] * (ABNORMAL) [facility] URINE MICROSCOPIC ONLY (04/25/2025 4:15 PM EDT) [facility] WBC 10-20(A) NONE SEEN #/HPF TBH TBH [...] [facility] * (ABNORMAL) TBH UA (CLEAN/CATCH) OTR COMPANY TRUCK DRIVER/MICRO IF IND. (04/25/2025 4:15 PM EDT) [facility] COLOR URINE LT. YELLOW YELLOW TBH [...] us Deisy Dante DO [facility] Final Result [facility] * GLUCOSE 1 HOUR (03/06/2025 9:29 AM EDT) GLUCOSE 1 HOUR 116 <130 mg/dL TBH 03/06/2025 9:29 AM EDT 03/06/2025 9:32 AM EDT Narrative [facility] - 03/06/2025 10:05 AM EDT Deisy Dante DO LAB BLOOD ORDERABLES Final Resul t [facility] TB * (ABNORMAL) ALL CBC WITH AUTO [...] DO [facility] Final Result Performing Organization Address [facility]/ZIP Co de Phone Number [facility] * Pap Smear (12/27/2024 12:00 AM EST) Swab Cervical swab / Unknown us Kelle [facility] LAB CYTOLOGY ORDERABLES Final Re sult EXTERNAL LAB * THINPREP PAP AND HPV MRNA E6/E7 W/RFL HPV 16,18/45 (07/09/2023 3:38 PM EDT) Kelle [facility] LAB BLOOD ORDERABLES Final Resul t EXTERNAL LAB from Last 3 Months or Most Recently Relevant to Health Maintenance Insurance [facility] MEDICAID [facility] MEDICAID Care Teams Toilet And Laundry Soap Supervisor Relationship Specialty Start Date End Date Shashi Hargrove MD [address] [place] [address] PCP - General Family Medicine 05/11/23
--- OUTSIDE RECORDS SUMMARY | 2025-05-15 17:01 | XMS_ITS | Encounter Summary ---
Author Organization [facility] Address [address] [place] [address] Care Team Providers Care Mastic Worker Name Role Phone Shashi Hargrove MD Primary Care Provider [phone] Encounter Details Date Type Department Care Team ([facility] Contact Info) Description 05/31/2024 Abstract [facility] OB [address] [place] [address] Graham Howell DO [address] [place] [address] Dr Neisha Dill, [place] [address] Social History Tobacco Use Types Packs/Day Years [...] Upcoming Encounters Date Type Department Care Team ([facility] Contact Info) Description 05/17/2025 1:50 PM EDT Routine [facility] OB [address] [place] [address] Kelle Mosley PA [address] [place], [facility]11 documented as of this encounter Visit Diagnoses Not on filedocumented in this encounter Care Teams Mastic Worker Relationship Specialty Start Date End Date Shashi Hargrove MD [address] [place] [address] PCP - General Family Medicine 05/11/23 documented as of this encounter
--- OUTSIDE RECORDS SUMMARY | 2025-05-15 17:02 | XMS_ITS | Encounter Summary ---
Author Organization [facility] Address [address] [facility] [place] [address] Care Team Providers Care Correctional Counselor/Case Manager Name Role Phone Shashi Hargrove MD Primary Care Provider [phone] Encounter Details Date Type Department Care Team ([facility] Contact Info) Description 01/10/2025 Orders Only [facility] [address] [facility] [place] [address] Aleida Colon LPN [address] [place] [id number] Social History Tobacco Use Types Packs/Day Years [...] Upcoming Encounters Date Type Department Care Team ([facility] Contact Info) Description 05/17/2025 1:50 PM EDT Routine [facility] [address] [facility] [place] [address] Kelle Mosley PA [address] [place], [facility]11 documented as [...] on filedocumented in this encounter Care Teams Correctional Counselor/Case Manager Relationship Specialty Start Date End Date Shashi Hargrove MD [address] [place] [address] PCP - General Family Medicine 05/11/23 documented as of this encounter
--- OUTSIDE RECORDS SUMMARY | 2025-05-15 17:02 | XMS_ITS | Encounter Summary ---
Author Organization [facility] Address [address] [place] [address] Care Team Providers Care Developing Machine Tender Name Role Phone Shasih Hargrove MD Primary Care Provider [phone] Encounter Details Date Type Department Care Team (Late Contact Info) Description 05/04/2025 Telephone [facility] [address] [facility] [address] Katie Fitzgerald MA Social History Tobacco Use [...] for most recent ultrasound. Orders faxed to [facility] pt to call and schedule. documented in this encounter Plan of Treatment Upcoming Encounters Date Type Department Care Team (Late Contact Info) Description 05/17/2025 1:50 PM EDT Routine [facility] [address] [facility] [address] Kelle Mosley PA [address] [facility] [place] [address] Scheduled Orders Name Type Priority Associated Diagnoses Orde r Schedule US biophysical profile w non stress test Imaging Routine Polyhydramnios affecting in third trimester ([facility]) Expected: 05/04/2025 (Approximate), Expires: 11/03/2025 documented as of this encounter Visit Diagnoses Diagnosis Polyhydramnios affecting in third trimester ([facility]) documented in this encounter Care Teams Developing Machine Tender Relationship Specialty Start Date End Date Shashi Hargrove MD [address] [facility] [place] [address] PCP - General Family Medicine 05/11/23 documented as of this encounter
--- OUTSIDE RECORDS SUMMARY | 2025-05-15 17:02 | XMS_ITS | Encounter Summary ---
Author Organization [facility] Address [address] [place] [address] Care Team Providers Care Nutritionist Name Role Phone Shashi Hargrove MD Primary Care Provider [phone] Encounter Details Date Type Department Care Team ([facility] Contact Info) Description 05/05/2025 Patient Outreach [facility] [address] [place] [address] Kelel Craig LPN [address] [place] [address] Social History Tobacco Use Types Packs/Day Years [...] PM EDT Routine [facility] [address] [facility] [place] [address] Kelle Mosley, PA [address] [facility] [place] [address] documented as of this encounter Visit Diagnoses Not on filedocumented in this encounter Care Teams Nutritionist Relationship Specialty Start Date End Date Shashi Hargrove MD [address] [facility] [place] [address] PCP - General Family Medicine 05/11/23 documented as of this encounter
--- OUTSIDE RECORDS SUMMARY | 2025-05-15 17:02 | XMS_ITS | Encounter Summary ---
Author Organization [facility] Address [address] [place] [address] Care Team Providers Care Rug Shampooer Name Role Phone Shashi Hargrove MD Primary Care Provider [phone] Encounter Details Date Type Department Care Team ([facility] st Contact Info) Description 09/09/2014 FollowUp Telephone Encounter [facility] Labor and Delivery [address] [place], [place] [phone] Delaney Mccray RN Social History Tobacco Use [...] y.o. Call made 09/09/2014 11:59 AM To [phone] (home) [x] No answer; unable to leave [...] on filedocumented in this encounter Care Teams Rug Shampooer Relationship Specialty Start Date End Date Shashi Hargrove MD [address] [place] [address] PCP - General 04/05/15 documented as of this encounter
--- OUTSIDE RECORDS SUMMARY | 2025-05-15 17:02 | XMS_ITS | Encounter Summary ---
Author Organization [facility] Address [address] [place] [address] Care Team Providers Care Search Engine Optimization Analyst Name Role Phone Shashi Hargrove MD Primary Care Provider [phone] Encounter Details Date Type Department Care Team ([facility] Contact Info) Description 2025 Bamboo flowsheet [facility] OB [address] [facility] [place] [address] Graham Howell [address] Neisha Dill, [facility]11 Social History Tobacco Use Types Packs/Day [...] Description 05/17/2025 1:50 PM EDT Routine [facility] OB [address] [facility] [place] [address] Kelle Mosley PA [address] [place], [place] [address] documented as of this encounter Visit Diagnoses Not on filedocumented in this encounter Care Teams Search Engine Optimization Analyst Relationship Specialty Start Date End Date Shashi Hargrove MD [address] [place] [address] PCP - General Family Medicine 05/11/23 documented as of this encounter
--- OUTSIDE RECORDS SUMMARY | 2025-05-15 17:02 | XMS_ITS | Encounter Summary ---
Author Organization [facility] Address [address] [place] [address] Care Team Providers Care Railroad Car Truck Builder Name Role Phone Shashi Hargrove MD Primary Care Provider [phone] Encounter Details Date Type Department Care Team ([facility] st Contact Info) Description 09/10/2014 FollowUp Telephone Encounter [facility] Labor and Delivery [address] [place], [place] [phone] Delaney Mccray RN Social History Tobacco Use [...] 19 y.o. Call made 09/10/2014 1405 To [phone] (home) [] No answer [] Message left [...] your baby had an appointment with the fire alarm repairer yet? scheduled this week Have you made [...] there. Arpita and Katina were especially great. [place] that Katina really went the extra mile to make sure we were comfortable. Was there anything we could have done to improve your stay? No documented in this encounter Plan of Treatment Not on file documented as of this encounter Visit Diagnoses Not on filedocumented in this encounter Care Teams Railroad Car Truck Builder Relationship Specialty Start Date End Date Shashi Hargrove MD [address] [place] [address] PCP - General 04/05/15 documented as of this encounter
--- OUTSIDE RECORDS SUMMARY | 2025-05-15 17:02 | XMS_ITS ---
Author Organization [facility] Address [address] [place] [address] Care Team Providers Care Cigarette Making Machine Operator Name Role Phone Shashi Hargrove MD Primary Care Provider [phone] [facility] Care ([facility]) Status:Enrolled (Active) Start date:05/02/2025 Enrollment date:05/05/2025 Enrollment reason:Identified by Health Plan Case Team Name Relationship Phone Kelle Craig LPN(Responsible Staff) Licensed [facility] Nurse [phone] Continued Care and Services Coordination
--- OUTSIDE RECORDS SUMMARY | 2025-05-15 17:02 | XMS_ITS | Patient Health Record ---
Author Organization [facility] Address [address] [place] [address] Care Team Providers Care Web Page Developer Name Role Phone Dr. Collins Mei Primary Care Provider [phone] Caryn Roth Unavailable [phone] Reason For Referral No Information Encounters Encounter Location Date Provider Diagnosis [facility] [address] [place] [address] 09/23/2024 Collins Mei Encounter for dental examination and cleaning with abnormal findings Z01.21 ; Other dental procedure status Z98.818 ; Disturbances in tooth eruption K00.6 ; Acute gingivitis, plaque induced K05.00 and Dental caries on pit and fissure surface penetrating into dentin K02.52 [facility] [address] [place] [address] 12/02/2024 Collins Mei Dental caries on pit [...] Coverage Start Date Coverage End Date [employer] [place] [employer] [address] [address] [place] [address] [id number] ROSALIE FREEMAN Self - patient is the insured 3 [employer] [facility] [place] [address] [place] [address] [id number] ROSALIE FREEMAN Self - patient is the insured 3
--- OUTSIDE RECORDS SUMMARY | 2025-05-15 17:02 | XMS_ITS | Encounter Summary ---
Author Organization [facility] Address [address] [place] [address] Care Team Providers Care Education Administrator Name Role Phone Shashi Hargrove MD Primary Care Provider [phone] Encounter Details Date Type Department Care Team ([facility] Contact Info) Description 05/05/2025 Abstract [facility] [address] [place] [address] Kelle Craig LPN [address] [place] [address] Social History Tobacco Use Types Packs/Day Years [...] [address] [id number] Kelle Mosley PA [address] [place] [address] documented as of this encounter Visit Diagnoses Not on filedocumented in this encounter Care Teams Education Administrator Relationship Specialty Start Date End Date Shashi Hargrove MD [address] [facility] [place] [phone] PCP - General Family Medicine 05/11/23 documented as of this encounter
--- OUTSIDE RECORDS SUMMARY | 2025-05-15 17:02 | XMS_ITS | Encounter Summary ---
Author Organization [facility] Address [address] [place] [address] Care Team Providers Care Dividing Machine Operator Name Role Phone Shashi Hargrove MD Primary Care Provider [phone] Encounter Details Date Type Department Care Team ([facility] Contact Info) Description 05/08/2025 Clinisync Result Encounter [facility] External Department Unsolicited Deisy Howell DO [address] [place], [place] [id number] Social History Tobacco Use Types Packs/Day Years [...] PM EDT Routine [facility] [address] [facility] [address] [place] [phone] Kelle Mosley PA [address] [place] [address] documented as of this encounter Procedures Procedure Name Priority Date/Time Associated Diagnosis Comments US OB BPP W NON-STRESS 05/08/2025 9:49 PM EDT documented in this encounter Results * US OB BPP W NON-STRESS (05/08/2025 9:49 PM EDT) Anatomical Region Laterality Modality Other 05/08/2025 9:49 PM EDT Narrative 05/08/2025 9:52 [place] [address] Ultrasound Report Signed Patient: JOCELYN FREEMAN V MR#: [id number] : 1995 Acct:[id number] Age/Sex: 29 / F ADM Date: 05/08/25 Loc: US Attending Dr: Deisy Howell D.O. Ordering Physician: Deisy Howell D.O. Date of Service: 05/08/25 Procedure(s): US OB BPP w non-stress Accession Number(s): [id number] cc: Deisy Howell D.O.; Shashi Hargrove M.D. [place] [id number] Patient Name: JOCELYN FREEMAN MRN: [id number] date: 1995 Sex: F Assigned Patient Location: [facility] Current Patient Location: Accession/Order Number: [id number] Exam Date: 05/08/2025 21:48 Report Date: 05/08/2025 [...] Graham M.D. 05/08/2025 9:49 PM Dictation Location: [employer] Electronically authenticated by: [id number] Y Date: 05/08/2025 21:49 Dictated By: Daniel Graham D.O. Signed By: 05/08/252151 DD/ 48 TD/TT: Map Plotter: Procedure Note Radiology, Radiologist, - 05/08/2025 [place] [address] Ultrasound Report Signed Patient: JOCELYN FREEMAN VMR#: [id number] : 1995Acct:[id number] Age/Sex: FADM Date: 05/08/25 Loc: US Attending Dr: Deisy Howell D.O. Ordering Physician: Deisy Howell D.O. Date of Service: 05/08/25 Procedure(s): US OB BPP w non-stress Accession Number(s): [id number] cc: Deisy Howell D.O.; Shashi Hargrove M.D. The [address] [address] Patient Name: JOCELYN FREEMAN MRN: [facility]:[id number] date: 1995 Sex: F Assigned Patient Location: [facility] Current Patient Location: Accession/Order Number: [id number] Exam Date: 05/08/2025 21:48 Report Date: 05/08/2025 [...] Graham M.D. 05/08/2025 9:49 PM Dictation Location: [employer] Electronically authenticated by: [id number] Y Date: :49 Dictated By: Daniel Graham D.O. Signed By:05/08/252151 DD/ 48 TD/TT: Map Plotter: us Deisy Howell DO [facility] Final Result documented in this encounter Visit Diagnoses Not on filedocumented in this encounter Care Teams Dividing Machine Operator Relationship Specialty Start Date End Date Shashi Hargrove MD [address] [place] [address] PCP - General Family Medicine 05/11/23 documented as of this encounter
--- OUTSIDE RECORDS SUMMARY | 2025-05-15 17:02 | XMS_ITS | Patient Health Record ---
Author Organization [facility] in [place] Address [address] [place] [address] Care Team Providers Care Line Controller Name Role Phone Beena Ethan Primary Care Provider [phone] MELODIE HARGROVE Unavailable [phone] Allergies No Known Allergies Results Component Value Reference Range Notes CBC AUTO DIFF Reviewed date:06/09/2024 08:39:42 PM Interpretation: Performing Lab: Notes/Report: [facility] , White Blood Count 7.5 4.0-11.0 [...] Performing Lab: see note ML - [facility] LB FREE T4 Reviewed date:06/09/2024 08:39:42 PM Interpretation: Performing Lab: Notes/Report: [facility] , Free T4 0.84 0.76-1.46 ng/dL Performing Lab: see note ML - [facility] LB FREE T3 Reviewed date:07/04/2024 08:33:26 PM Interpretation: Performing Lab: Notes/Report: [facility] , Free T3 2.64 2.18-3.98 pg/mL Performing Lab: see note ML - [facility] LB T4 Reviewed date:07/04/2024 08:33:26 PM Interpretation: Performing Lab: Notes/Report: [facility] , T4 Thyroxine 6.80 4.80-13.90 ug/dL Performing Lab: see note ML - [facility] LB TSH Reviewed date:07/04/2024 08:33:26 PM Interpretation: Performing Lab: Notes/Report: [facility] , Thyroid Stimulating Hormone 4.094 0.358-3.740 uIU/mL Performing Lab: see note ML - [facility] LB FREE T4 Reviewed date:09/16/2024 12:18:08 PM Interpretation: Performing Lab: Notes/Report: [facility] , Free T4 0.81 0.76-1.46 ng/dL Performing Lab: see note ML - [facility] LB TSH Reviewed date:09/16/2024 12:18:08 PM Interpretation: Performing Lab: Notes/Report: [facility] , Thyroid Stimulating Hormone 2.195 0.358-3.740 uIU/mL Performing Lab: see note ML - [facility] LB CBC AUTO DIFF Reviewed date:09/28/2024 09:17:22 PM Interpretation: Performing Lab: Notes/Report: [facility] , White Blood Count 7.3 4.0-11.0 [...] Performing Lab: see note ML - [facility] LB PREG QUANT HCG Reviewed date:09/28/2024 09:17:22 PM Interpretation: Performing Lab: Notes/Report: [facility] , HCG Quantitative 1721 5-50 0.2-1 WEEK 50-500 1-2 WEEKS 100-5,000 2-3 WEEKS 500-10,000 3-4 WEEKS 1,000-50,000 4-5 WEEKS 10,000-100,000 5-6 WEEKS 15,000-200,000 6-8 WEEKS 10,000-100,000 2-3 MONTHS Performing Lab: see note ML - [facility] LB TSH Reviewed date:09/28/2024 09:17:22 PM Interpretation: Performing Lab: Notes/Report: [facility] , Thyroid Stimulating Hormone 2.393 0.358-3.740 uIU/mL Performing Lab: see note ML - [facility] LB US OB <= 14 weeks fetus Reviewed date:12/04/2024 10:31:56 AM Interpretation: Performing Lab: Notes/Report: Source Facility: [facility] [place] [address] [place] [address] Ultrasound Report Signed Patient: JOCELYN FREEMAN V MR#: [id number] : 1995 Acct:[id number] Age/Sex: 29 / F ADM Date: 12/02/24 Loc: ER Attending Dr: Ordering Physician: Echo Coyle Date of Service: 12/02/24 Procedure(s): US OB <= 14 weeks fetus Accession Number(s): [id number] cc: Melodie Hargrove M.D.; Echo Coyle [place] [address] Patient Name: JOCELYN FREEMAN MRN: [id number] date: 1995 Sex: F Assigned Patient Location: ER Current Patient Location: ER Accession/Order Number: [id number] Exam Date: 12/02/2024 12:22 Report Date: 12/02/2024 [...] M.D. Signed By: 12/02/241317 DD/ 14 TD/TT: [place]: [place] [address] Ultrasound Report Signed Patient: JOCELYN FREEMAN V MR#: [id number] : 1995 Acct:[id number] Age/Sex: 29 / F ADM Date: 12/02/24 Loc: ER Attending Dr: Ordering Physician: Echo Coyle Date of Service: 12/02/24 Procedure(s): US OB <= 14 weeks fetus Accession Number(s): [id number] cc: Melodie Hargrove M.D. ; Echo Coyle [place] [address] Patient Name: JOCELYN FREEMAN MRN: [id number] date: 1995 Sex: F Assigned Patient Location: ER Current Patient Loca tion: ER Accession/Order Numb er: [id number] Exam Date: 12/02/2024 12:22 Report Date: 12/02/2024 [...] M.D. Signed By: 12/02/241317 DD/ 14 TD/TT: [place]: CBC AUTO DIFF Reviewed date:12/24/2024 04:34:56 PM Interpretation: Performing Lab: Notes/Report: [facility] , White Blood Count 9.6 4.0-11.0 [...] Performing Lab: see note ML - [facility] LB DRUG SCREEN RAPID (URINE) Reviewed date:12/24/2024 04:34:56 PM Interpretation: Performing Lab: Notes/Report: [facility] , Cannabinoid Screen Urine NEGATIVE NEGATIVE [...] Antidepressants): 300 ng/mL Performing Lab: see note - [facility] LB RUBELLA AB IGG Reviewed date:12/24/2024 04:34:56 PM Interpretation: Performing Lab: Notes/Report: [facility] , Rubella Antibodies, IgG 0.91 Immune > 0.99 index A second sample should be collected and tested no less than 2-4 weeks. Non-immune <0.90 Equivocal 0.90 - 0.99 Immune >0.99 Performed at: [facility] [employer] [id number] Refinery Operator Coking: Aguilar Machado PhD, Phone: [phone] Performing Lab: see note [facility] LB Type and Screen Reviewed date:12/24/2024 04:34:56 PM Interpretation: Performing Lab: Notes/Report: [facility] , Blood Type B Positive Antibody Screen NEGATIVE HIV Ab/p24 Ag with Reflex Reviewed date:12/24/2024 04:34:56 PM Interpretation: Performing Lab: Notes/Report: [facility] , HIV Ab/p24 Ag Screen Non Reactive Non Reactive HIV-1/HIV-2 antibodies and HIV-1 p24 antigen were NOT detected. There is no laboratory evidence of HIV infection. HIV Negative Performed at: [address] [id number] Refinery Operator Coking: Aguilar Machaod PhD, Phone: [phone] Performing Lab: see note [facility] LB Rapid Plasma Reagin, Quant Reviewed date:12/24/2024 [...] utilized, such as Treponema pallidum (Syphilis) Screening [place] (395492) or Rapid Plasma Reagin (RPR) Test With Reflex to Quantitative RPR and Confirmatory Treponema pallidum Antibodies (097337). Performed at: [address] [id number] Refinery Operator Coking: Aguilar Machado PhD, Phone: [phone] Performing Lab: see note [facility] note [facility] LB HBsAg Screen Reviewed date:12/24/2024 04:34:56 PM Interpretation: Performing Lab: Notes/Report: [facility] , HBsAg Screen Negative Negative Performed at: [address] [id number] Refinery Operator Coking: Aguilar Machado PhD, Phone: [phone] Performing Lab: see note [facility] LB Box Test Reviewed date:12/24/2024 04:34:56 PM Interpretation: Performing Lab: Notes/Report: [facility] , BOX Test Sent Out [facility] Test Reference Lab [facility] Test Date Sent 12/23/24 Performing Lab: see note [facility] LB CBC AUTO DIFF Reviewed date:02/02/2025 07:34:33 PM Interpretation: Performing Lab: Notes/Report: [facility] , White Blood Count 10.7 4.0-11.0 [...] Performing Lab: see note ML - [facility] LB Troponin I High Sensitivity Reviewed date:02/02/2025 07:34:33 PM Interpretation: Performing Lab: Notes/Report: [facility] , Troponin I High Sensitivity <4.0 4.0-51.3 pg/mL CUT-OFF POINTS HAVE BEEN ESTABLISHED BASED ON THE FOURTH UNIVERSAL DEFINITION OF MYOCARDIAL INFARCTION. THE UPPER REFERENCE LIMIT (URL) OF TROPONIN, DEFINED THE 99TH PERCENTILE OF cTnI DISTRIBUTION IN A REFERENCE POPULATION, HAS BEEN CONFIRMED THE DECISION THRESHOLD FOR UT DIAGNOSIS. 99TH PERCENTILE = 51.4 PG/ML NOTE: HIGH-SENSITIVITY TROPONIN ASSAY IS NOT INTENDED TO BE USED IN ISOLATION BUT SHOULD BE INTERPRETED IN CONJUNCTION WITH OTHER DIAGNOSTIC AND CLINICAL INFORMATION. Performing Lab: see note ML - [facility] LB XR chest 1V Reviewed date:02/02/2025 07:34:33 PM Interpretation: Performing Lab: Notes/Report: Source Facility: [facility]-[address] [place] [address] [address] XRay Report Signed Patient: JOCELYN FREEMAN V MR#: [id number] : 1995 Acct:[id number] Age/Sex: 29 / F ADM Date: 02/02/25 Loc: ER Attending Dr: Ordering Physician: Ashlee Erickson M.D. Date of Service: 02/02/25 Procedure(s): XR chest 1V Accession Number(s): [id number] cc: Melodie Hargrove M.D.; Ashlee Erickson M.D. The [place] [address] Patient Name: JOCELYN FREEMAN MRN: [id number] date: 1995 Sex: F Assigned Patient Location: ER Current Patient Location: ER Accession/Order Number: [id number] Exam Date: 02/02/2025 11:16 Report Date: 02/02/2025 [...] Tangela Ellis M.D.02/02/2025 11:18 AM Dictation Location: [place] [address] Electronically authenticated by: [id number] Y Date: 02/02/2025 11:18 Dictated By: Tangela Ellis M.D. Signed By: 02/02/25 1120 DD/ 1118 TD/TT: [place]: [place] [address] XRay Report Signed Patient: JOCELYN FREEMAN V MR#: [id number] : 1995 Acct:[id number] Age/Sex: 29 / F ADM Date: 02/02/25 Loc: ER Attending Dr: Ordering Physician: Ashlee Erickson M.D. Date of Service: 02/02/25 Procedure(s): XR chest 1V Accession Number(s): [id number] cc: Melodie Hargrove M.D. ; Ashlee Erickson M.D. The [address] [address] Patient Name: JOCELYN FREEMAN MRN: [id number] date: 1995 Sex: F Assigned Patient Location: ER Current Patient Loca tion: ER Accession/Order Numb er: [id number] Exam Date: 02/02/2025 11:16 Report Date: 02/02/2025 [...] Tangela Ellis M.D.02/02/2025 11:18 AM Dictation Location: [place] [address] Electronically authenticated by: [id number] Y Date: 02/02/2025 11:18 Dictated By: Tangela Ellis M.D. Signed By: 02/02/25 1120 DD/ 1118 TD/TT: [place]: CBC AUTO DIFF Reviewed date:03/06/2025 08:37:44 PM Interpretation: Performing Lab: Notes/Report: [facility] , White Blood Count 10.4 4.0-11.0 [...] 3/uL Performing Lab: see note ML - [facility] LB Glucose 1 Hour Reviewed date:03/06/2025 08:37:44 PM Interpretation: Performing Lab: Notes/Report: [facility] , Glucose 1 Hour 116 <130 mg/dL Performing Lab: see note - [facility] LB UA (CLEAN or CATCH) ADVERTISING DIRECTOR or M ICRO IF IND. Reviewed date:04/26/2025 09:45:57 PM Interpretation: Performing Lab: Notes/Report: [facility] , Color Urine LT. YELLOW YELLOW Clarity Urine CLEAR CLEAR Specific [place] Urine 1.020 1.005-1.025 pH Urine 7.5 5.0-9.0 Protein Urine 30 NEG/TRACE mg/dL Glucose Urine UA NEGATIVE NEGATIVE mg/dL Bilirubin Urine NEGATIVE NEGATIVE Ketones Urine NEGATIVE NEGATIVE mg/dL Blood Urine NEGATIVE NEGATIVE Nitrite Urine NEGATIVE NEGATIVE Urobilinogen Urine 1.0 0.2-1.0 EU/dL Leukocyte Esterase Urine MODERATE NEGATIVE Urine Microscopic Indicated YES Performing Lab: see note - [facility] LB URINE MICROSCOPIC ONLY Reviewed date:04/26/2025 09:45:57 PM Interpretation: Performing Lab: Notes/Report: [facility] , WBC Urine 10-20 NONE SEEN #/HPF RBC Urine 2-5 0-2 #/HPF Bacteria Urine MODERATE NONE SEEN #/HPF Mucus Urine NONE SEEN NONE SEEN Squamous Epithelial Cell Urine MODERATE NONE/RARE #/LPF Crystals Seen? None Seen None Seen #/HPF Cast Seen? NONE SEEN NONE SEEN #/LPF Urine Culture Indicated YES- Performing Lab: see note ML - [facility] LB Urine Culture, Routine Reviewed date:04/29/2025 05:25:31 PM Interpretation: Performing Lab: Notes/Report: [facility] , Urine Culture, Routine See Below For Report Urine Culture, Routine Urine Culture, Routine Mixed urogenital cuco Urine Culture, Routine Urine Culture, Routine Less than 10,000 colonies/mL Urine Culture, Routine Urine Culture, Routine Performed at: [facility] Urine Culture, Routine Urine Culture, Routine [address] [place] [id number] Urine Culture, Routine Urine Culture, Routine Refinery Operator Coking: Chilango Machado PhD, Phone: [phone] Urine Culture, Routine Performing Lab: see note LC - [facility] LB SEE REPORT - Air Car[employer] Inspector Id information not found for OBX-specific theater company producer legend US OB BPP w non-stress Reviewed date:05/09/2025 08:17:35 AM Interpretation: Performing Lab: Notes/Report: Source Facility: [place] [address] Ultrasound Report Signed Patient: JOCELYN FREEMAN V MR#: [id number] : 1995 Acct:[id number] Age/Sex: 29 / F ADM Date: 05/08/25 Loc: US Attending Dr: Deisy Howell D.O. Ordering Physician: Deisy Howell D.O. Date of Service: 05/08/25 Procedure(s): US OB BPP w non-stress Accession Number(s): [id number] cc: Deisy Howell D.O.; Melodie Hargrove M.D. [place] [address] Patient Name: JOCELYN FREEMAN MRN: [facility]:[id number] date: 1995 Sex: F Assigned Patient Location: [facility] Current Patient Location: Accession/Order Number: [id number] Exam Date: 05/08/2025 21:48 Report Date: 05/08/2025 [...] Graham M.D. 05/08/2025 9:49 PM Dictation Location: [place] [address] Electronically authenticated by: [id number] Y Date: 05/08/2025 21:49 Dictated By: Echo Graham D.O. Signed By: 05/08/252151 DD/ 48 TD/TT: [place]: [place] [address] Ultrasound Report Signed Patient: JOCELYN FREEMAN V MR#: [id number] : 1995 Acct:[id number] Age/Sex: 29 / F ADM Date: 05/08/25 Loc: US Attending Dr: Deisy Howell D.O. Ordering Physician: Deisy Howell D.O. Date of Service: 05/08/25 Procedure(s): US OB BPP w non-stress Accession Number(s): [id number] cc: Deisy Howell D.O. ; Melodie Hargrove M.D. [address] [address] Patient Name: JOCELYN FREEMAN MRN: [id number] date: 1995 Sex: F Assigned Patient Location: [facility] Current Patient Location: Accession/Order Numb er: [id number] Exam Date: 05/08/2025 21:48 Report Date: 05/08/2025 [...] Graham M.D. 05/08/2025 9:49 PM Dictation Location: [employer] Electronically authenticated by: [id number] Y Date: 05/08/2025 21:49 Dictated By: Cecilio Graham D.O. Signed By: 05/08/252151 DD/ 48 TD/TT: [place]: [employer]* Reviewed date:04/25/2025 04:36:16 PM Interpretation: Performing Lab: Notes/Report: [facility] , [employer] NEGATIVE NEGATIVE Performing Lab: see note ML - [facility] LB ECG 12 lead Reviewed date:02/02/2025 10:00:35 PM Interpretation: Performing Lab: Notes/Report: Source Facility: [facility]-[address] [place] [address] [place] [address] Electrocardiograph Report Signed Patient: JOCELYN FREEMAN V MR#: [id number] : 1995 Acct:[id number] Age/Sex: 29 / F ADM Date: 02/02/25 Loc: ER Attending Dr: Ordering Physician: Ashlee Erickson M.D. Date of Service: 02/02/25 Procedure(s): ECG 12 lead Accession Number(s): [id number] cc: [facility] Test Date: 2025-02-02 Pat Name: JOCELYN FREEMAN Department: Room: - Gender: Female [employer] Agent: : 1995 Requested By: 1030 Order Number: [id number] Reading MD: CYNDI FINK M.D. Measurements Intervals [place] Rate: 90 P: 44 SC: 220 QRS: -8 QRSD: 68 T: 41 QT: 342 QTc: 390 Interpretive Statements 1100 Sinus rhythm 2231 First degree AV block 8102 Low QRS voltage in chest leads 9150 abnormal ECG Compared to ECG 04/17/2023 10:07:42 First degree AV block now present Electronically Signed On 02-02-2025 20:26:48 EDT by CYNDI FINK M.D. Dictated By: CYNDI FINK Signed By: 02/02/252026 DD/ 103 TD/TT: [place]: [place] [address] Electrocardiograph Report Signed Patient: JOCELYN FREEMAN V MR#: [id number] : 1995 Acct:[id number] Age/Sex: 29 / F ADM Date: 02/02/25 Loc: ER Attending Dr: Ordering Physician: Ashlee Erickson M.D. Date of Service: 02/02/25 Procedure(s): ECG 12 lead Accession Number(s): [id number] cc: [facility] Test Date: 2025-02-02 Pat Name: JOCELYN Culver Department: 53 Room: - Gender: Female [employer] Agent: : 1995 [facility] By: 1030 Order Number: [id number] Reading MD: CYNDI FINK M.D. Measurements Intervals [place] Rate: 90 P: 44 SC: 220 QRS: -8 QRSD: 68 T: 41 [...] FINK Signed By: 02/02/252026 DD/ 103 TD/TT: [place]: PROF KARENA HOOD METB) Reviewed date:02/02/2025 07:34:33 PM Interpretation: Performing Lab: Notes/Report: [facility] , Sodium 136 136-145 mmol/L [...] Performing Lab: see note ML - [facility] LB IGP,Aptima HPV,Age Gdln Reviewed date:01/01/2025 11:26:48 AM Interpretation: Performing Lab: Notes/Report: SPATULA-ALONE CERVIX [facility] , Age Gdln ACOG Testing Note . TESTS RESULT FLAG UNITS REF RANGE LAB Clinician Provided Cytology Information Source.............Cer vix Other..............Pre gnant No. of containers..01 ThinPrep Vial Age Algo ACOG Soraida... 30-65 FLAG LEGEND: L-Low Normal,H-High Normal,LL-Alert Low,HH-Alert High <-Panic Low,>-Panic High,A-Abnormal,AA-Cri tical Abnormal Performed at: 01 =G [facility] [place] [address] [facility] [address] Haily Cook MD, IGP, Aptima HPV, rfx 16/18,45 Note . TESTS RESULT FLAG UNITS REF RANGE LAB DIAGNOSIS: 02 NEGATIVE FOR INTRAEPITHELIAL LESION OR MALIGNANCY. Specimen adequacy: 02 Satisfactory for evaluation. No endocervical component is identified. Performed by: 02 Janneth Guerrero, Adult High School Instructor (ASCP) . 02 Note: Note 02 The [...] Low,>-Panic High,A-Abnormal,AA-Cri tical Abnormal Performed at: 02 WB [facility] [place] [address] [facility] [place] [address] Haily Cook MD, HPV Aptima Negative Negative This nucleic acid amplification test detects fourteen high- risk HPV types (16,18,31,33,35,39,45, 51,52,56,58,59,66,68) without differentiation. Performed at: = - [address] [id number] Refinery Operator Coking: Haily Cook MD, Phone: [phone] Performed at: [address] [id number] Refinery Operator Coking: Haily Cook MD, Phone: [phone] Performing Lab: see note [facility] LB Urine Culture, Routine Reviewed date:12/25/2024 04:31:37 [...] Culture, Routine Urine Culture, Routine Performed at: [facility] Urine Culture, Routine Urine Culture, Routine [address] [place] [id number] Urine Culture, Routine Urine Culture, Routine Refinery Operator Coking: Chilango Machado PhD, Phone: [phone] Urine Culture, Routine Performing Lab: see note [facility] LB SEE REPORT - Air Carrier Inspector Id information not found for OBX-specific theater company producer legend GLYCOHEMOGLOBIN A1C Reviewed date:12/24/2024 04:34:56 PM Interpretation: Performing Lab: Notes/Report: [facility] , Glycohemoglobin A1C 5.1 4.5-6.2 % ADA RECOMMENDED LIMIT 4.0 - 6.0 ADA THERAPEUTIC TARGET < 7.0 ACTION SUGGESTED > 7.0 Estimated Average Glucose 100 Performing Lab: see note - [facility] LB US pelvis transvaginal Reviewed date:06/28/2024 03:19:56 PM Interpretation: Performing Lab: Notes/Report: Source Facility: [facility]-[address] [place] [address] [place] [address] Ultrasound Report Signed Patient: JOCELYN FREEMAN V MR#: [id number] : 1995 Acct:[id number] Age/Sex: 29 / F ADM Date: 06/27/24 Loc: [facility] Attending Dr: Deisy Howell D.O. Ordering Physician: Deisy Howell D.O. Date of Service: 06/27/24 Procedure(s): US pelvis transvaginal Accession Number(s): [id number] cc: Deisy Howell D.O.; Melodie Hargrove M.D. The [place] [id number] Patient Name: JOCELYN FREEMAN MRN: [id number] date: 1995 Sex: F Assigned Patient Location: [facility] Current Patient Location: Accession/Order Number: [id number] Exam Date: 06/27/2024 09:02 Report Date: 06/28/2024 [...] M.D. Signed By: 06/28/24808 DD/ 6 TD/TT: [place]: [place] [address] Ultrasound Report Signed Patient: JOCELYN FREEMAN V MR#: [id number] : 1995 Acct:[id number] Age/Sex: 29 / F ADM Date: 06/27/24 Loc: [facility] Attending Dr: Deisy Howell D.O. Ordering Physician: Deisy Howell D.O. Date of Service: 06/27/24 Procedure(s): US pel vis transvaginal Accession Number(s): [id number] cc: Deisy Howell D.O. ; Melodie Hargrove M.D. [place] [id number] Patient Name: JOCELYN FREEMAN MRN: [id number] date: 1995 Sex: F Assigned Patient Location: [facility] Current Patient Location: Accession/Order Numb er: [id number] Exam Date: 06/27/2024 09:02 Report Date: 06/28/2024 [...] M.D. Signed By: 06/28/24808 DD/ 6 TD/TT: [place]: DHEA-Sulfate Reviewed date:06/12/2024 04:56:24 PM Interpretation: Performing Lab: Notes/Report: [facility] , DHEA-Sulfate 145.0 84.8-378.0 ug/dL Performing Lab: see note [facility] FSH Reviewed date:06/12/2024 04:56:24 PM Interpretation: Performing Lab: Notes/Report: [facility] , FSH 5.9 . mIU/mL Adult Female Range Follicular phase 3.5 - 12.5 Ovulation phase 4.7 - 21.5 Luteal phase 1.7 - 7.7 Postmenopausal 25.8 - 134.8 Performed at: [address] [id number] Refinery Operator Coking: Aguilar Machado PhD, Phone: [phone] Performing Lab: see note [facility] Luteinizing Hormone(LH) Reviewed date:06/12/2024 04:56:24 PM Interpretation: Performing Lab: Notes/Report: [facility] , Luteinizing Hormone(LH) 9.5 . mIU/mL Adult Female Range Follicular phase 2.4 - 12.6 Ovulation phase 14.0 - 95.6 Luteal phase 1.0 - 11.4 Postmenopausal 7.7 - 58.5 Performing Lab: see note [facility] DHEA, Serum Reviewed date:06/16/2024 08:59:38 PM Interpretation: Performing Lab: Notes/Report: [facility] , DHEA, Serum 140 31-701 ng/dL This test was developed and its performance characteristics determined by [facility]. It has not been cleared or approved by the Food and Drug Administration. Performed at: [address] [id number] Refinery Operator Coking: Emanuel Varela MD, Phone: [phone] Performing Lab: see note [facility] TSH Reviewed date:06/09/2024 08:39:42 PM Interpretation: Performing Lab: Notes/Report: [facility] , Thyroid Stimulating Hormone 3.872 0.358-3.740 uIU/mL Performing Lab: see note [facility] LB PREG QUANT HCG Reviewed date:06/09/2024 08:39:42 PM Interpretation: Performing Lab: Notes/Report: [facility] , HCG Quantitative <1 5-50 0.2-1 WEEK 50-500 1-2 WEEKS 100-5,000 2-3 WEEKS 500-10,000 3-4 WEEKS 1,000-50,000 4-5 WEEKS 10,000-100,000 5-6 WEEKS 15,000-200,000 6-8 WEEKS 10,000-100,000 2-3 MONTHS Performing Lab: see note - [facility] LB GLYCOHEMOGLOBIN A1C Reviewed date:06/09/2024 08:39:42 PM Interpretation: Performing Lab: Notes/Report: [facility] , Glycohemoglobin A1C 5.4 4.5-6.2 % ADA RECOMMENDED LIMIT 4.0 - 6.0 ADA THERAPEUTIC TARGET < 7.0 ACTION SUGGESTED > 7.0 Estimated Average Glucose 108 Performing Lab: see note ML - [facility] Reason For Referral No Information Medications Medication SIG (Take, Route, Frequency, Duration) Notes Start Date End Date Status Sertraline HCl 100 MG TAKE 1 TABLET BY M OUTH EVERY DAY for 30 days Active Ieommdpx-Elyqkbkns-Ksbkjui h 3.5-79733-9.1 1 drop into affected eye Ophthalmic Four times a day for 7 days 12/08/2024 Active Active Cephalexin 500 MG 2 tabs [...] Problem Status W/U Status Risk Notes Problem 31821177 Other hypoglycemia (E16.1) Active confirmed Problem Hypothyroidism (88708606) Hypothyroidism (E03.9) Active confirmed Problem Arthralgia (69871316) Arthralgia (M25.50) Active confirmed Problem Shingles (0177837) Shingles (B02.9) Active confirmed Problem Laboratory test result abnormal (537450470) Abnormal laboratory test (R89.9) Active confirmed Problem Irritable bowel (78365516) Irritable bowel (K58.9) Active confirmed Problem Attention deficit hyperactivity disorder (042677129) ADHD (F90.9) Active confirmed Vital Signs Blood pressure diastolic 70 mm Hg 12/06/2024 Height 71 in 12/06/2024 Blood pressure systolic 122 mm Hg 12/06/2024 Weight 325.2 lbs 12/06/2024 BMI 45.35 kg/m2 12/06/2024 Encounters Encounter Location Date Provider Diagnosis [facility] [address] [facility] [place] [id number] 06/30/2024 Ethan Springy [facility] [address] [facility] [address] 07/04/2024 Ethan Hoy Hypothyroidism E03.9 [facility] [address] [facility] [address] 09/15/2024 Ethan Hoy Other fatigue R53.83 and Abnormal weight gain R63.5 [facility] [address] [facility] [place] [address] 12/08/2024 Ethan Springy [facility] [address] [facility] [address] 12/12/2024 Ethan Hoy Acute non-recurrent sinusitis, unspecified location J01.90 [facility] [address] [facility] [address] 04/25/2025 Ethan Springy [facility] [address] [facility] [place] [address] 05/23/2024 MELODIE HARGROVE [facility] [address] [facility] [place] [address] 06/09/2024 Ethan Hoy Hypothyroidism, unspecified E03.9 [facility] [address] [facility] [place] [address] 06/14/2024 Ethan Hargrove [facility] [address] [facility] [address] 12/06/2024 Ethan Hoy Acute non-recurrent sinusitis, unspecified location J01.90 and Nasal congestion R09.81 Assessments Encounter Date Diagnosis (ICD Code) Assessment Notes Treatment Notes Treatment Clinical Notes Section Notes 12/06/2024 Acute non-recurrent sinusitis, unspecified location (ICD-10 - J01.90) Rest and drink more liquids, especially water. You may use a humidifier or vaporizer to help keep the drainage moist. Bmij-dbm-hvscowk Nasal Saline may help the stuffy and runny nose. Use Ibuprofen and or Tylenol as needed for fever, chills, body aches or pain. Children 5 years old should not be given gixh-pnw-uvtjvwl cough and cold medications such as guaifenesin and dextromethorphan. If you're over age 5, you may try unsc-kvu-iheeojr cold medications such as guaifenesin and dextromethorphan, [...] Date [employer] [place] [employer] [address] [place] [address] [id number] Jocelyn Freeman Self - patient is the insured 8 Medical (General) History Medical History History ICD Code Zoster without complications B02.9 Surgical History Surgery Date(Month/Year) Angioplasty on Toes Left Ovary Removal Colonoscopy & EGD 04/27/24
--- NOTE | 2025-05-15 17:03 | US_ITS ---
[place] [id number] Patient Name: ROSALIE FREEMAN MRN: [id number] date: 1995 Sex: F Assigned Patient Location: [facility] Current Patient Location: Accession/Order Number: [id number] Exam Date: 05/15/2025 18:34 Report Date: 05/15/2025 18:40 At the request of: DEISY CARDONA DO Procedure: US OB BPP w non-stress US OB BPP w non-stress 05/15/2025 5:33 PM SIGNS AND SYMPTOMS: ^06/05/2025 ^POLYHYDRAMINOS AFFECTING O40.3XX0 PROTOCOL: Transabdominal sonographic imaging of the gravid uterus COMPARISON: 05/08/2025 FINDINGS: Estimated gestational age is 37 weeks and 0 days. heart rate is 157 beats per minute. The Amniotic fluid index is 22.64 cm with the deepest vertical pockets measuring 8.28 cm and 8.88 cm. Biophysical Profile: movement: 2/2 tone: 2/2 breathing movements: 2/2 Amniotic fluid volume: 2/2 US/US OB BPP w non-stress IMPRESSION: Biophysical Profile Score: 8/8 The Amniotic fluid index is 22.64 cm with the deepest vertical pockets measuring 8.28 cm and 8.88 cm consistent with polyhydramnios. Impression dictated by: Valentino Dominguez M.D. 05/15/2025 6:40 PM Dictation Location: [place] [address] Electronically authenticated by: [id number] Y Date: 05/15/2025 18:40
[2025-05-15 17:36] VITALS: BP 124/74; PULSE 84
== END 2025-05-15 18:29 | disposition home or self-care (01) ==
LOC: US 16:59 → FBC 17:02
PROVIDERS: PCP Family Medicine; Visit Provider Obstetrics & Gynecology
DX: O40.3XX0 Polyhydramnios, third trimester, not applicable or unspecified (principal); Z3A.37 37 weeks gestation of pregnancy
CPT/HCPCS: 76818

== ENCOUNTER 2025-05-17 16:05 | Outpatient (OUT) | payer OTHER, SELFPAY ==
[2025-05-17 16:19] LABS: Basophils Percent Auto 0.1 % (0.2-2.0); Eosinophils Absolute Auto 0.1 10^3/uL (0.0-0.7); Eosinophils Percent Auto 0.8 % (0.9-7.0); Hematocrit 35.2 % (36.0-48.0); Hemoglobin 11.8 g/dL (12.0-16.0); Immature Granulocytes Abs Auto 0.05 10^3/uL (0.00-0.03); Immature Granulocytes Pct Auto 0.5 % (0.0-0.5); Lymphocytes Absolute Auto 1.5 10^3/uL (1.2-3.8); Lymphocytes Percent Auto 14.5 % (20.5-60.0); Mean Corpuscular HGB Conc 33.5 g/dL (29.9-35.2); Mean Corpuscular Hemoglobin 29.3 pg (26.7-34.0); Mean Corpuscular Volume 87.3 fL (81.0-99.0); Mean Platelet Volume 9.2 fL (9.5-13.5); Monocytes Absolute Auto 0.7 10^3/uL (0.3-0.8); Monocytes Percent Auto 6.9 % (1.7-12.0); Neutrophils Percent Auto 77.2 % (43.0-75.0); Platelet Count 253 10^3/uL (150-450); Red Blood Count 4.03 10^6/uL (4.20-5.40); Red Cell Distribution Width 12.8 % (11.0-15.0); White Blood Count 10.4 10^3/uL (4.0-11.0)
[2025-05-17 16:57] LABS: Partial Thromboplastin Time 25.1 sec (22.3-36.2); Prothrombin Time 9.8 sec (9.0-11.6)
[2025-05-17 16:59] LABS: Aspartate Amino Transferase 12 U/L (15-37); Estimated GFR (African America >60 (>=60 mL/min/1.73m^2); Estimated GFR (Non-African Ame >60 (>=60 mL/min/1.73m^2); Lactate Dehydrogenase 74 U/L (81-234); Uric Acid 3.7 mg/dL (2.6-6.0)
[2025-05-17 17:10] LABS: INR <0.93
== END 2025-05-17 16:06 | disposition home or self-care (01) ==
LOC: LAB 16:06
PROVIDERS: PCP Family Medicine; Visit Provider Physician Assistant
DX: O13.9 Gestational [pregnancy-induced] hypertension without significant proteinuria, unspecified trimester (principal)
CPT/HCPCS: 36415; 82565; 83615; 84450; 84520; 84550; 85025; 85610; 85730

== ENCOUNTER 2025-05-17 16:25 | Observation (INO) | payer OTHER, SELFPAY ==
--- OUTSIDE RECORDS SUMMARY | 2015-04-06 01:53 | XMS_ITS | Encounter Summary ---
Author Organization Alex Sultanaelise [facility] Address [address] [place] [address] Care Team Providers Care Gas Roller Operator Name Role Phone Shashi Hargrove MD Primary Care Provider [phone] Encounter Details Date Type Department Care Team (Late st Contact Info) Description 04/06/2015 1:53 AM EDT Hospital Encounter MTH PRE ADMIT [address] [phone] Abdi Mcgill MD [address] [facility] [address] [facility] [address] [place] [address] Social History Tobacco Use Types Packs/Day Years [...] UA YELLOW YEL 04/06/2015 12:25 PM EDT [facility] Turbidity UA CLEAR CLEAR 04/06/2015 12:25 PM EDT [facility] Glucose, Ur NEGATIVE NEG 04/06/2015 12:25 PM EDT [facility] Bilirubin Urine NEGATIVE NEG 5 12:25 PM EDT [facility] Ketones, Urine NEGATIVE NEG 04/06/2015 12:25 PM EDT [facility] Specific [place], UA >1.030(H) 1.010 - 1.020 04/06/2015 12:25 PM EDT [facility] Urine Hgb NEGATIVE NEG 04/06/2015 12:25 PM EDT [facility] pH, UA 6.0 5.0 - 9.0 04/06/2015 12:25 PM EDT [facility] Protein, UA NEGATIVE NEG 04/06/2015 12:25 PM EDT [facility] Urobilinogen, Urine Normal NORM 04/06/2015 12:25 PM EDT [facility] Nitrite, Urine NEGATIVE NEG 04/06/2015 12:25 PM EDT [facility] Leukocyte Esterase, Urine TRACE(A) NEG 04/06/2015 12:25 PM EDT [facility] Urinalysis Comments NOT REPORTED [facility] - 04/06/2015 12:25 PM EDT [facility] WBC, UA 0 TO 2 0 - 5 /HPF 04/06/2015 12:25 PM EDT [facility] RBC, UA None 0 - 2 /HPF 04/06/2015 12:25 PM EDT [facility] Casts UA NOT REPORTED 0 - 2 /LPF [facility] Crystals, UA NOT REPORTED NONE /HPF [facility] Epithelial Cells, UA 0 TO 2 0 - 25 /HPF 04/06/2015 12:25 PM EDT [facility] Renal Epithelial, UA NOT REPORTED 0 /HPF [facility] Bacteria, UA NOT REPORTED NONE [facility] Mucus, UA NOT REPORTED NONE [facility] Trichomonas NOT REPORTED NONE [facility] Amorphous, UA 1+(A) NONE 04/06/2015 12:25 PM EDT [facility] Comment: Performed at [address] [place] [address] ([phone] Other Observations UA NOT REPORTED NREQ [facility] Yeast, UA NOT REPORTED NONE [facility] URINE SPECIMEN / Unknown 04/06/2015 11:11 AM EDT 04/06/2015 11:12 AM EDT us Abdi Mcgill MD URINE ORDERABLES Final Result [facility] [address] [place] [address], [facility] [phone] [facility] * TYPE AND SCREEN (04/06/2015 11:11 AM EDT) Expiration Date 04/13/2015 5 11:47 AM EDT [facility] Arm Band Number [id number] 5 11:47 AM EDT [facility] ABO/Rh B POSITIVE 04/06/2015 11:47 AM EDT [facility] Antibody Screen NEGATIVE 5 12:19 PM EDT [facility] Comment: Performed at [address] [place] [address] ([phone] Blood (substance) BLOOD SPECIMEN / Unknown 04/06/2015 11:11 AM EDT 04/06/2015 11:12 AM EDT Abdi Mcgill MD BLOOD BANK TEST ORDERABLES Fi nal Result Performing Organization Address [facility]/ZIP Co de Phone Number [facility] [address] [place] [address] [facility] * HCG Qualitative, Serum (04/06/2015 11:11 AM EDT) Preg, Serum NEGATIVE NEG 04/06/2015 12:33 PM EDT [facility] Comment: Performed at [address] [place], [place] [id number] ([phone] Blood (substance) BLOOD SPECIMEN / Unknown 04/06/2015 11:11 AM EDT 04/06/2015 11:12 AM EDT Abdi Mcgill MD CHEMISTRY ORDERABLES Final Re sult Performing Organization Address [facility] Co de Phone Number [facility] [address] [place] [address] [facility] * (ABNORMAL) CBC auto differential (04/06/2015 11:11 AM EDT) [facility] WBC 6.9 4.5 - 13.5 k/uL 04/06/2015 11:31 AM EDT [facility] RBC 4.36 4.0 - 5.2 m/uL 04/06/2015 11:31 AM EDT [facility] Hemoglobin 12.6 12.0 - 16.0 g/dL 04/06/2015 11:31 AM EDT [facility] Hematocrit 37.5 36 - 46 % 04/06/2015 11:31 AM EDT [facility] MCV 86.2 80 - 100 fL 04/06/2015 11:31 AM EDT [facility] MCH 28.9 26 - 34 pg 04/06/2015 11:31 AM EDT [facility] MCHC 33.6 31 - 37 g/dL 04/06/2015 11:31 AM EDT [facility] RDW 13.8 12.1 - 15.2 % 04/06/2015 11:31 AM EDT [facility] Platelets 277 140 - 450 k/uL 04/06/2015 11:31 AM EDT [facility] MPV NOT REPORTED 6.0 - 12.0 fL [facility] Differential Type NOT REPORTED [facility] Seg Neutrophils 66(H) 34 - 64 % 5 11:31 AM EDT [facility] Lymphocytes 21(L) 25 - 45 % 04/06/2015 11:31 AM EDT [facility] Monocytes % 10 0 - 12 % 04/06/2015 11:31 AM EDT [facility] Eosinophils % 3 0 - 8 % 04/06/2015 11:31 AM EDT [facility] Basophils % 0 0 - 2 % 04/06/2015 11:31 AM EDT [facility] Neutrophils Absolute 4.50 1.8 - 7.7 k/uL 04/06/2015 11:31 AM EDT [facility] Lymphocytes Absolute 1.40 1.0 - 4.8 k/uL 04/06/2015 11:31 AM EDT [facility] Monocytes Absolute 0.70 0.0 - 1.0 k/uL 04/06/2015 11:31 AM EDT [facility] Eosinophils Absolute 0.20 0.0 - 0.4 k/uL 04/06/2015 11:31 AM EDT [facility] Basophils Absolute 0.00 0.0 - 0.2 k/uL 04/06/2015 11:31 AM EDT [facility] Comment: Performed at [address] [place] [address] ([phone] WBC Morphology NOT REPORTED [facility] RBC Morphology NOT REPORTED [facility] Platelet Estimate NOT REPORTED [facility] BLOOD SPECIMEN / Unknown 04/06/2015 11:11 AM EDT 04/06/2015 11:12 AM EDT us Abdi Mcgill MD HEMATOLOGY ORDERABLES Final R esult [facility] [address] [place] [address], [facility] [phone] [facility] documented in this encounter Visit Diagnoses Not on filedocumented in this encounter Care Teams Gas Roller Operator Relationship Specialty Start Date End Date Shashi Hargrove MD [address] [place] [address] PCP - General 04/05/15 documented as of this encounter
--- OUTSIDE RECORDS SUMMARY | 2024-12-06 05:30 | XMS_ITS ---
Author Organization [facility] Address [address] [place] [address] Care Team Providers Care Project Management Director Name Role Phone Dr. Collins Mei Primary Care Provider [phone] Caryn Roth [phone] REASON FOR VISIT PROPHY Encounters Encounter Location Date Provider Diagnosis [facility] [address] [place] [address] 12/06/2024 Caryn Joyner Plan Of Treatment No Information Progress Notes * FREEMANASHLEE CHINCHILLANDOB:1995 ( 30 yo F)Acc No.[id number]:12/06/2024 Patient: ROSALIE SEGURA Provider: Melody Joyner :1995 A ge:29 Y S ex:Female Date:12/06/2024 Address:[address] [place], [place] [id number] Pcp:Dr. Collins Mei Subjective: * Chief Complaints: * 1 . PROPHY. * Medical History: Objective: * Vitals: Assessment: Plan: * Treatment: * Images: * Electronic signature of Farhan Joyner on 05/17/2025 at 09:34 AM EDT Sign off status: Pending * Provider: Melody Joyner Date: 0 12/06/2024 Generated for Hardiki ng/Faxing/eTransmitting on: 0 05/17/2025 09:34 AM EDT
--- OUTSIDE RECORDS SUMMARY | 2024-12-08 04:09 | XMS_ITS ---
Author Organization The [facility] in [place] Address [address] [place] [address] Care Team Providers Care Division Operations Manager Name Role Phone Ethan Hargrove Primary Care Provider [phone] REASON FOR VISIT pink eye Medications Medication SIG (Take, Route, Frequency, Duration) Notes Start Date End Date Status Eicmbpkf-Mowqtzigg-Rhsaldc h 3.5-89724-2.1 1 drop into affected eye Ophthalmic Four times a day for 7 days 12/08/2024 Active Encounters Encounter Location Date Provider Diagnosis [address] [place] [address] 12/08/2024 Ethan Hargrove Plan Of Treatment Medication Medication Name Sig Start Date Stop Date Notes Uklasjtw-Xrsxwioge-Jxbrgvpu 3.5-01422-6.1 1 drop into affected eye Ophthalmic Four times a day for 7 days 12/08/2024 Progress Notes * Jocelyn FREEMAN VDOB:1995 (29 yo F)Acc No.[id number]:12/08/2024 Patient: Magaly JAIMES Jocelyn Stafford :1995 A ge:29 Y S ex:Female Address:[address] [place] [address], [place], [address] * Refills Start Zhewvcgw-Tmevgcosz-Acibhwga Suspension, 3.5-94886-9.1, Ophthalmic, 1.4 ML, 1 drop into affected eye, Four times a day, 7 days, Refills=1 * true * Date: Generated for Printi ng/Faradhag/Rayitting on: 0 05/17/2025 04:29 PM EDT
--- OUTSIDE RECORDS SUMMARY | 2024-12-12 07:55 | XMS_ITS ---
Author Organization The [facility] in [place] Address [address] [place] [address] Care Team Providers Care Director Student Union Name Role Phone Ethan Hargrove Primary Care Provider [phone] REASON FOR VISIT sinus infection- not better Medications Medication SIG (Take, Route, Fr equency, Duration) Notes Start Date End Date Status Cephalexin 500 MG 2 tabs Orally bid for 10 days Active Encounters Encounter Location Date Provider Diagnosis [facility] [address] [place] [address] 12/12/2024 Ethan Hargrove Acute non-recurrent sinusitis, unspecified [...] * Jocelyn FREEMAN VDOB:1995 (29 yo F)Acc No.[id number]:12/12/2024 Patient: Magaly JAIMES Jocelyn Rivera :1995 A ge:29 Y S ex:Female Address:[address] [place] [address], [address] * Refills Refill Cephalexin Tablet, 500 MG, Orally, 40 Tablet, 2 tabs, bid, 10 days * true * Date: Generated for Printi ng/Faxing/eTransmitting on: 0 05/17/2025 04:29 PM EDT
--- OUTSIDE RECORDS SUMMARY | 2025-01-13 10:40 | XMS_ITS ---
Author Organization [facility] Address [address] [place] [address] Care Team Providers Care Roll Tester Name Role Phone Dr. Collins Mei Primary Care Provider REASON FOR VISIT FILLING Encounters Encounter Location Date Provider Diagnosis [facility] [address] [place] [address] 01/13/2025 Collins Mei Plan Of Treatment No Information Progress Notes * ASHLEE FREEMANNDOB:1995 ( 30 yo F)Acc No.[id number]:01/13/2025 Patient: ROSALIE SEGURA Provider: Laura Mei DDS :1995 A ge:29 Y S ex:Female Date:01/13/2025 Address:[address] [place], [place] [id number] Subjective: * Chief Complaints: * 1 . FILLING. * Medical History: Objective: * Vitals: Assessment: Plan: * Treatment: * Images: * Electronic signature of Dr. Collins Mei , DMD on 05/17/2025 at 09:34 AM EDT Sign off status: Pending * Provider: Laura Mei DDS Date: 01/13/2025 Generated for Jennifer ng/Faradhag/eTransmitting on: 0 05/17/2025 09:34 AM EDT
--- OUTSIDE RECORDS SUMMARY | 2025-03-10 10:15 | XMS_ITS ---
Author Organization [facility] Address [address] [place] [address] Care Team Providers Care Retort Engineer Name Role Phone Dr. Collins Mei Primary Care Provider [phone] Caryn Roth [phone] REASON FOR VISIT PROPHY Encounters Encounter Location Date Provider Diagnosis [facility] [address] [place] [address] 03/10/2025 Caryn Joyner Plan Of Treatment No Information Progress Notes * FREEMANASHLEE CHINCHILLANDOB:1995 ( 30 yo F)Acc No.[id number]:03/10/2025 Patient: ROSALIE SEGURA Provider: Melody Joyner :1995 A ge:29 Y S ex:Female Date:03/10/2025 Address:[address] [place], [place] [phone] Pcp:Dr. Collins Mei Subjective: * Chief Complaints: * 1 . PROPHY. * Medical History: Objective: * Vitals: Assessment: Plan: * Treatment: * Images: * Electronic signature of Farhan Joyner on 05/17/2025 at 09:34 AM EDT Sign off status: Pending * Provider: Melody Joyner Date: 03/10/2025 Generated for Hardiki ng/Faxing/eTransmitting on: 0 05/17/2025 09:34 AM EDT
--- OUTSIDE RECORDS SUMMARY | 2025-04-25 12:34 | XMS_ITS ---
Author Organization [facility] [place] Address [address] [place] [address] Care Team Providers Care Peoplesoft Hr Developer Name Role Phone Ethan Hargrove Primary Care Provider [phone] REASON FOR VISIT UA Encounters Encounter Location Date Provider Diagnosis [facility] [address] [place] [address] 04/25/2025 Ethan Hargrove Plan Of Treatment No Information Progress Notes * Jocelyn FREEMAN VDOB:1995 (29 yo F)Acc No.[id number]:04/25/2025 Patient: Magaly TURNERJocelyn CHINCHILLA V :1995 A ge:29 Y S ex:Female Address:[address] [place] [address], [phone] * true * Date: Generated for Jennifer wren/Ted/eTransmitting on: 0 05/17/2025 09:34 AM EDT
--- OUTSIDE RECORDS SUMMARY | 2025-05-10 14:30 | XMS_ITS | Encounter Summary ---
Author Organization [facility] Address [address] [facility] [place] [address] Care Team Providers Care Draw Frame Runner Name Role Phone Shashi Hargrove MD Primary Care Provider [phone] Reason for Visit * Reason Comments Routine Visit Encounter Details Date Type Department Care Team ([facility] Contact Info) Description 2025 2:30 PM EDT Routine [facility] [address] [place] [phone] Graham Howell, [address] [facility] [place] [address] Third trimester ([facility]); 36 weeks gestation of ([facility]) Social History Tobacco Use Types Packs/Day [...] Sign Reading Time Taken Comments Blood Pressure 132/86 2025 3:04 PM EDT Pulse - - Temperature - - Respiratory Rate - - Oxygen Saturation - - Inhaled Oxygen Concentration - - Weight 149 kg (328 lb) 2025 3:04 PM EDT Height - - Body Mass Index 47.06 07/26/2024 8:36 AM EDT documented in this encounter Progress Notes * Felicitas Chun NP - 2025 2:30 PM EDT Reason for Appointment: Patient ID: Jocelyn Rodríguez is a 30 y.o. female who presents for Routine Visit Patient presents today for Return OB appointment. MEDICATIONS Current Outpatient Medications Medication Instructions magnesium oxide (MAG-OX) 400 mg, Oral, Daily sertraline (ZOLOFT) 50 mg, Daily ALLERGIES Allergies Allergen Reactions Wound Dressings [...] abdominal pain 05/27/2023 Scoliosis 05/27/2023 Vaginal delivery ([facility]) 09/06/2014 Encounter for weight management 06/27/2024 Resolved Ambulatory Problems Diagnosis Date Noted No Resolved Ambulatory Problems Past Medical History: Diagnosis Date Acne Cardiac murmur Depression Encounter for IUD insertion 01/02/2021 Gastritis IBS (irritable bowel syndrome) Plantar fasciitis, bilateral HISTORY PAST MEDICAL HISTORY SOCIAL HISTORY Past Medical History: Diagnosis Date Acne Cardiac murmur Depression Encounter for IUD insertion 01/02/2021 Gastritis IBS [...] nursing note reviewed. Exam conducted with a medical officer psychiatry present. Vitals: Estimated body mass index is 47.06 kg/m?? as calculated from the following: Height as of 07/26/24: 5' 10 . Weight as of this encounter: 328 lb. BP: 132/86 Patient's last menstrual period was 08/29/2024. ASSESSMENT & PLAN ICD-10-CM 1. Third trimester ([facility]) Z34.93 POCT urinalysis dipstick manually resulted CULTURE, GROUP B STREP WITH SUSCEPTIBLITY CULTURE, GROUP B STREP WITH SUSCEPTIBLITY 2. 36 weeks gestation of ([facility]) Z3A.36 Return OB: Patient presents today for a routine obstetrics appointment. Patient is currently 36w2d . Patient states she is doing well but has complaints of being tired due to current . Patient has verbalizes frequent movement. labor precautions was discussed/given and patient was instructed to perform kick counts three times a day. Orders Placed This Encounter Procedures CULTURE, GROUP B STREP WITH SUSCEPTIBLITY POCT urinalysis dipstick manually resulted Follow Up: Patient is to return to office in 1 week for routine OB appointment. Documented by Felicitas Chun NP on behalf of: Graham Howell DO documented in this encounter Plan of Treatment Upcoming Encounters Date Type Department Care Team (Late st Contact Info) Description 05/24/2025 2:00 PM EDT Routine [facility] BCP OB [address] [facility] [place] [address] Graham Howell DO [address] [place], [place] [address] [address] Scheduled Orders Name Type Priority Associated Diagnoses Orde r Schedule CULTURE, GROUP B STREP WITH SUSCEPTIBLITY Lab Routine Third trimester ([facility]) Expected: 2025, Expires: 2026 documented as of this encounter Procedures Procedure Name Priority Date/Time Associated Diagnosis Comments POCT URINALYSIS DIPSTICK Routine 2025 3:07 PM EDT Third trimester ([facility]) documented in this encounter Results * (ABNORMAL) POCT urinalysis dipstick manually resulted (2025 3:07 PM EDT) Color, UA Jolie Clarity, UA Cloudy Glucose, UA Negative Negative - 2000(110) ++++ mg/dL Bilirubin, UA Positive Negative - 4(70) +++ mg/dL Comment:small Ketones, UA Positive Negative - 160(16) ++++ mg/dL Comment:15 Spec Grav, UA 1.030 1 - 1.03 Blood, UA Negative Negative - 50 Issac/mcL pH, UA 5.5 5 - 9 Protein, UA Positive Negative - 2000(20) ++++ mg/dL Comment:30 Urobilinogen, UA 0.2 0.2 - 12 mg/dL Leukocytes, UA Positive Negative - 500+++ Christo/mcL Comment:small Nitrite, UA Negative Negative - Positive Urine 2025 3:07 PM EDT Graham Howell DO POINT OF CARE TEST ENTER/EDIT OR DERABLES Final Result documented in this encounter Visit Diagnoses Diagnosis Third trimester ([facility]) state, incidental 36 weeks gestation of ([facility]) documented in this encounter Care Teams Draw Frame Runner Relationship Specialty Start Date End Date Shashi Hargrove MD [address] [place] [address] PCP - General Family Medicine 05/11/23 documented as of this encounter
--- OUTSIDE RECORDS SUMMARY | 2025-05-17 13:50 | XMS_ITS | Encounter Summary ---
Author Organization [facility] Address [address] [facility] [place] [address] Care Team Providers Care Archaeology Professor Name Role Phone Shashi Hargrove MD Primary Care Provider [phone] Reason for Visit * Reason Comments Routine Visit Encounter Details Date Type Department Care Team (Latest Contact Info) Description 05/17/2025 1:50 PM EDT Routine [facility] [address] [facility] [place] [address] Kelle Mosley PA [address] [place], [id number] Third trimester (HHS-HCC); 37 weeks gestation of [...] (328 lb 4 oz) 05/17/2025 2:18 PM EDT Height - - Body Mass Index 47.1 [...] abdominal pain 05/27/2023 Scoliosis 05/27/2023 Vaginal delivery ([facility]) 09/06/2014 Encounter for weight management 06/27/2024 [...] ASSESSMENT & PLAN ICD-10-CM 1. Third trimester ([facility]) Z34.93 2. 37 weeks gestation of ([facility]) Z3A.37 3. Polyhydramnios affecting in third trimester ([facility]) O40.3XX0 4. H/O herpes zoster virus Z86.19 5. induced hypertension, antepartum ([facility]) O13.9 Creatinine Protein, urine, 24 hour Pt and ptt CBC and differential Uric acid Lactate dehydrogenase ALT AST BUN Creatinine Protein, urine, 24 hour Pt and ptt CBC and differential Uric acid Lactate dehydrogenase ALT AST BUN 6. -induced hypertension in third trimester ([facility]) O13.3 Return OB: Patient presents today for [...] EDT Routine [facility] [address] [place] [address] Graham Howell, DO [address] [place] [address] Scheduled Orders Name Type Priority Associated Diagnoses [...] this encounter Visit Diagnoses Diagnosis Third trimester (HHS-HCC) state, incidental 37 weeks gestation of (HHS-HCC) Polyhydramnios affecting in third trimester (HHS-HCC) H/O herpes zoster virus induced hypertension, antepartum ([facility]HS-HCC) Transient hypertension of , antepartum -induced hypertension in third trimester ([facility]HS-HCC) documented in this encounter Care Teams Archaeology Professor Relationship Specialty Start Date End Date Shashi Hargrove MD [address] [place] [address] PCP - General Family Medicine 05/11/23 documented as of this encounter
--- OUTSIDE RECORDS SUMMARY | 2025-05-17 16:29 | XMS_ITS | Encounter Summary ---
Author Organization [facility] Address [address] [facility] [place] [address] Care Team Providers Care Bath Mixer Name Role Phone Shashi Hargrove MD Primary Care Provider [phone] Encounter Details Date Type Department Care Team ([facility] Contact Info) Description 11/03/2024 Abstract [facility] OB [address] [place] [address] Graham Howell [facility] [place], [facility]11 Social History Tobacco Use Types Packs/Day [...] Upcoming Encounters Date Type Department Care Team ([facility] Contact Info) Description 05/24/2025 2:00 PM EDT Routine [facility] OB [address] [place] [address] Graham Howell, DO [facility] [place], [facility]11 documented as of this encounter Visit Diagnoses Not on filedocumented in this encounter Care Teams Bath Mixer Relationship Specialty Start Date End Date Shashi Hargrove MD [address] [place] [address] PCP - General Family Medicine 05/11/23 documented as of this encounter
--- OUTSIDE RECORDS SUMMARY | 2025-05-17 16:29 | XMS_ITS | Encounter Summary ---
Author Organization [facility] Address [address] [facility] [place] [address] Care Team Providers Care Manager Of Learning Name Role Phone Shashi Hargrove MD Primary Care Provider [phone] Encounter Details Date Type Department Care Team ([facility] Contact Info) Description 06/04/2023 Abstract [facility] OB [address] [place] [phone] Graham Howell DO [address] [place], [place] [address] Social History Tobacco Use Types Packs/Day Years [...] ([facility] Contact Info) Description 05/24/2025 2:00 PM EDT Routine [facility] OB [address] [place] [address] Graham Howell DO [address] [place], [facility]11 documented as of this encounter Visit Diagnoses Not on filedocumented in this encounter Care Teams Manager Of Learning Relationship Specialty Start Date End Date Shashi Hargrove MD [address] [place] [address] PCP - General Family Medicine 05/11/23 documented as of this encounter
--- OUTSIDE RECORDS SUMMARY | 2025-05-17 16:29 | XMS_ITS | Encounter Summary ---
Author Organization [facility] Address [address] [facility] [place] [address] Care Team Providers Care Records Management Technician Name Role Phone Shashi Hargrove MD Primary Care Provider [phone] Encounter Details Date Type Department Care Team ([facility] Contact Info) Description 05/31/2024 Abstract [facility] OB [address] [place] [address] Graham Howell DO [address] [place], [place] [address] Social History Tobacco Use Types Packs/Day Years [...] Upcoming Encounters Date Type Department Care Team ([facility] Contact Info) Description 05/24/2025 2:00 PM EDT Routine [facility] OB [address] [place] [address] Graham Howell DO [address] [place], [facility]11 documented as of this encounter Visit Diagnoses Not on filedocumented in this encounter Care Teams Records Management Technician Relationship Specialty Start Date End Date Shashi Hargrove MD [address] [place] [address] PCP - General Family Medicine 05/11/23 documented as of this encounter
--- OUTSIDE RECORDS SUMMARY | 2025-05-17 16:29 | XMS_ITS | Encounter Summary ---
Author Organization [facility] Address [address] [facility] [place] [address] Care Team Providers Care Windows Architect Name Role Phone Shashi Hargrove MD Primary Care Provider [phone] Encounter Details Date Type Department Care Team ([facility] Contact Info) Description 10/14/2024 Abstract [facility] OB [address] [place] [address] Graham Howell DO [address] [place], [place] [address] Social History Tobacco Use Types Packs/Day Years [...] Encounters Date Type Department Care Team ([facility] Contact Info) Description 05/24/2025 2:00 PM EDT Routine [facility] [address] [place] [address] Graham Howell DO [facility] [place], [facility]11 documented as of this encounter Visit Diagnoses Not on filedocumented in this encounter Care Teams Windows Architect Relationship Specialty Start Date End Date Shashi Hargrove MD [address] [place] [address] PCP - General Family Medicine 05/11/23 documented as of this encounter
--- OUTSIDE RECORDS SUMMARY | 2025-05-17 16:29 | XMS_ITS | Encounter Summary ---
Author Organization [facility] Address [address] [facility] [place] [address] Care Team Providers Care Senior Windows Systems Administrator Name Role Phone Shashi Hargrove MD Primary Care Provider [phone] Encounter Details Date Type Department [facility] Description 06/29/2024 Abstract [facility] OB [address] [place] [address] Graham Howell DO [address] [place], [place] [address] Social History Tobacco Use Types Packs/Day Years [...] Upcoming Encounters Date Type Department Care Team ([facility] Description 05/24/2025 2:00 PM EDT Routine [facility] OB [address] [place] [address] Graham Howell DO [address] [place], [facility]11 documented as of this encounter Visit Diagnoses Not on filedocumented in this encounter Care Teams Senior Windows Systems Administrator Relationship Specialty Start Date End Date Shashi Hargrove MD [address] [place] [address] PCP - General Family Medicine 05/11/23 documented as of this encounter
--- OUTSIDE RECORDS SUMMARY | 2025-05-17 16:29 | XMS_ITS | Encounter Summary ---
Author Organization [facility] Address [address] [facility] [place] [address] Care Team Providers Care Culture Room Worker Name Role Phone Shashi Hargrove MD Primary Care Provider [phone] Encounter Details Date Type Department Care Team ([facility] Contact Info) Description 01/10/2025 Orders Only [facility] OB [address] [place] [address] Aleida Colon LPN [address] [place] [id number] Social History Tobacco Use Types Packs/Day Years [...] Department Care Team (Late Contact Info) Description 05/24/2025 2:00 PM EDT Routine [facility] OB [address] [place] [address] Graham Howell DO [address] [place], [facility]11 documented as of this encounter Procedures Procedure Name Priority Date/Time Associated Diagnosis Comments PAP SMEAR Routine 12/27/2024 12:00 AM EST documented in this encounter Results * Pap Smear (12/27/2024 12:00 AM EST) Swab Cervical swab / Unknown us Kelle [facility] ORDERABLES Final Re sult EXTERNAL LAB documented in this encounter Visit Diagnoses Not on filedocumented in this encounter Care Teams Culture Room Worker Relationship Specialty Start Date End Date Shashi Hargrove MD [address] [place] [address] PCP - General Family Medicine 05/11/23 documented as of this encounter
--- OUTSIDE RECORDS SUMMARY | 2025-05-17 16:29 | XMS_ITS | Encounter Summary ---
Author Organization [facility] Address [address] [facility] [place] [address] Care Team Providers Care Imaging System Administrator Name Role Phone Shashi Hargrove MD Primary Care Provider [phone] Encounter Details Date Type Department Care Team ([facility] Contact Info) Description 06/02/2024 Abstract [facility] OB [address] [place] [address] Graham Howell DO [address] [place], [place] [address] Social History Tobacco Use Types Packs/Day Years [...] Upcoming Encounters Date Type Department Care Team ([facility] Contact Info) Description 05/24/2025 2:00 PM EDT Routine [facility] OB [address] [place] [address] Graham Howell DO [address] [place], [facility]11 documented as of this encounter Visit Diagnoses Not on filedocumented in this encounter Care Teams Imaging System Administrator Relationship Specialty Start Date End Date Shashi Hargrove MD [address] [place] [address] PCP - General Family Medicine 05/11/23 documented as of this encounter
--- OUTSIDE RECORDS SUMMARY | 2025-05-17 16:29 | XMS_ITS | Clinical Summary ---
Author Organization [facility] Address [address] [place] [address] Care Team Providers [facility] Personnel Director Name Role Phone Shashi Hargrove MD Primary Care Provider [phone] Allergies Active Allergy Reactions Criticality Noted Date Comments Wound Dressings 12/25/2023 Other Reaction(s): hives Medications sertraline (Zoloft) 100 MG tablet Take 50 mg by mouth Daily Active magnesium oxide (Mag-Ox) 400 MG tabletIndications : headache in third trimester ([facility]) Take 1 tablet (400 mg) by mouth Daily 30 tablet 11 5 Active valACYclovir (Valtrex) 500 MG tabletIndications :Herpes zoster with complication Take 1 tablet (500 mg) by mouth Daily 30 tablet 11 5 04/28/20 25 cephalexin (Keflex) 500 MG capsuleIndication s:Third trimester ([facility]) Take 1 capsule (500 mg) by [...] of left ovary 04/10/2015 Vaginal delivery ([facility]) 09/06/2014 Estimated Date of Delivery Comme nts Yes 06/05/2025 Based on last me nstrual period of 08/29/2024 Encounters Date Type Department Care Team Description 05/17/2025 1:50 PM EDT Routine [facility] [address] [place] [address] Kelle Mosley PA Third trimester ([facility]); 37 weeks gestation of ([facility]); Polyhydramnios affecting in third trimester ([facility]); H/O herpes zoster virus; induced hypertension, antepartum ([facility]); -induced hypertension in third trimester ([facility]) 05/17/2025 Bamboo flowsheet [facility] [place] [address] [place] [address] Kelle Mosley PA 05/15/2025 Clinisync Result Encounter [facility] External Department Unsolicited Deisy Howell, 2025 2:30 PM EDT Routine [facility] [place] [address] Deisy Howell, Third trimester ([facility]); 36 weeks gestation of ([facility]) 2025 Bamboo flowsheet [facility] [address] [place] [address] Deisy Howell, 05/08/2025 Clinisync Result Encounter [facility] External Department Unsolicited Deisy Howell, 05/05/2025 Abstract [facility] [address] [place] [address] Kelle Craig LPN 05/05/2025 Patient Outreach [facility] [address] [place] [address] Kelle Craig LPN 05/04/2025 Telephone [facility] [address] [place] [address] Katie Fitzgerald MA 04/27/2025 3:00 PM EDT Ancillary Procedure [facility] [address] [place] [address] size inconsistent with dates ([facility]) 04/27/2025 1:00 PM EDT Routine [facility] [address] [place] [address] Kelle Mosley PA Third trimester ([facility]); 34 weeks gestation of ([facility]) 04/27/2025 Bamboo flowsheet [facility] [address] [place] [address] Kelle Mosley PA 04/25/2025 Clinisync Result Encounter [facility] External Department Unsolicited Deisy Howell, 04/25/[address] [facility] [address] [place] [address] Deisy Howell, 04/12/2025 2:30 PM EDT Routine [facility] [address] [place] [address] [place] [address] Deisy Howell, Third trimester ([facility]); 32 weeks gestation of ([facility]); size inconsistent with dates ([facility]) 04/12/2025 Bamboo flowsheet [facility] [address] [place] [address] Deisy Howell, 04/10/2025 Refill [facility] [address] [place] [address] [place] [address] Aleida Colon LPN headache in third trimester ([facility]) 03/29/2025 3:10 PM EDT Routine [facility] OB [address] [facility] [place] [address] Kelle Mosley PA Herpes zoster with complication (Primary Dx); 30 weeks gestation of ([facility]); Third trimester ([facility]) 03/29/2025 Bamboo flowsheet [facility] OB [address] [facility] [place] [address] Kelle Mosley PA 03/15/2025 2:50 PM EDT Routine [facility] OB [address] [place] [address] [place] [address] Deisy Howell DO Third trimester [facility]); 28 weeks gestation of ([facility]); H/O herpes zoster virus 03/15/2025 Bamboo flowsheet [facility] OB [address] [place] [address] [place] [address] Deisy Howell DO 03/06/2025 Clinisync Result Encounter [facility] External [...] oz) 05/17/2025 2:18 PM E DT Height 177.8 cm (5' 10 ) 07/26/2024 8:36 AM EDT Body Mass Index 47.1 07/26/2024 8:36 AM EDT Plan of Treatment Upcoming Encounters Date Type Department Care Team (Late st Contact Info) Description 05/24/2025 2:00 PM EDT Routine [facility] [address] [facility] [place] [address] Deisy Howell, DO [address] [facility] [place] [address] Health Maintenance Due Date Last Done Comments Influenza Vaccine (Season Ended) 2025 10/28/20, 03/21/2014 Pap Smear 12/27/2027 12/27/2024, 06/23, 01/02/2021, Additional history exists Cervical Cancer Screening 07/09/2028 HPV/Cotest 07/09/2028 07/09/2023 Procedures Procedure Name Priority Date/Time Associated Diagnosis Comments US OB BPP W NON-STRESS 05/15/2025 6:40 PM EDT POCT URINALYSIS DIPSTICK Routine 2025 3:07 PM EDT Third trimester ([facility]) US OB BPP W NON-STRESS 05/08/2025 9:49 PM EDT US OB FOLLOW UP TRANSABDOMINAL APPROACH Routine 04/27/2025 2:58 PM EDT size inconsistent with dates ([facility]) POCT URINALYSIS DIPSTICK Routine 04/27/2025 1:20 PM EDT Third trimester ([facility]) [facility] URINE MICROSCOPIC ONLY Routine 04/25/2025 4:15 PM EDT AMNISURE Routine 04/25/2025 4:15 PM EDT TBH UA (CLEAN/CATCH) SEWING MACHINE ADJUSTER/MICRO IF IND. Routine 04/25/2025 4:15 PM EDT POCT URINALYSIS DIPSTICK Routine 04/12/2025 3:28 PM EDT Third trimester ([facility]) POCT URINALYSIS DIPSTICK Routine 03/29/2025 3:51 PM EDT 30 weeks gestation of ([facility]) POCT URINALYSIS DIPSTICK Routine 03/15/2025 3:29 PM EDT Third trimester ([facility]) GLUCOSE 1 HOUR Routine 03/06/2025 9:29 AM EDT ALL CBC WITH AUTO DIFF Routine 9:29 AM EDT PAP SMEAR Routine 12/27/2024 12:00 AM EST THINPREP PAP AND HPV MRNA E6/E7 W/RFL HPV 16,18/45 Routine 07/09/2023 3:38 PM EDT Well woman exam with routine gynecological exam from Last 3 Months or Most Recently Relevant to Health Maintenance Results * US OB BPP W NON-STRESS (05/15/2025 6:40 PM EDT) Only the most recent of2 resultswithin the time period is included. Anatomical Region Laterality Modality Other 05/15/2025 6:40 PM EDT Narrative 05/15/2025 6:43 [place] [address] Ultrasound Report Signed Patient: JOCELYN FREEMAN V MR#: [id number] : 1995 Acct:[id number] Age/Sex: 30 / F ADM Date: 05/15/25 Loc: US Attending Dr: Deisy Howell D.O. Ordering Physician: Deisy Howell D.O. Date of Service: 05/15/25 Procedure(s): US OB BPP w non-stress Accession Number(s): [id number] cc: Deisy Howell D.O.; Shashi Hargrove M.D. [address] [address] Patient Name: JOCELYN FREEMAN MRN: [facility]:[id number] date: 1995 Sex: F Assigned Patient Location: [facility] Current Patient Location: Accession/Order Number: [id number] Exam Date: 05/15/2025 18:34 Report Date: 05/15/2025 18:40 At the request of: DEISY HOWELL DO Procedure: US OB BPP w non-stress US OB BPP w non-stress 05/15/2025 5:33 PM SIGNS AND SYMPTOMS: 06/05/2025 POLYHYDRAMINOS AFFECTING O40.3XX0 PROTOCOL: Transabdominal sonographic imaging of the gravid uterus COMPARISON: 05/08/2025 FINDINGS: Estimated gestational age is 37 weeks and 0 days. heart rate is 157 beats per minute. The Amniotic fluid index is 22.64 cm with the deepest vertical pockets measuring 8.28 cm and 8.88 cm. Biophysical Profile: movement: 2/2 tone: 2/2 breathing movements: 2/2 Amniotic fluid volume: 2/2 US/US OB BPP w non-stress IMPRESSION: Biophysical Profile Score: 8/8 The Amniotic fluid index is 22.64 cm with the deepest vertical pockets measuring 8.28 cm and 8.88 cm consistent with polyhydramnios. Impression dictated by: Valentino Dominguez M.D. 05/15/2025 6:40 PM Dictation Location: [place] [address] Electronically authenticated by: [id number] Y Date: 05/15/2025 18:40 Dictated By: Valentino Dominguez M.D. Signed By: 05/15/251842 DD/ 39 TD/TT: Events Director: Procedure Note Radiology, Radiologist, MD - 05/15/2025 [place] [address] Ultrasound Report Signed Patient: JOCELYN FREEMAN VMR#: [id number] : 1995Acct:[id number] Age/Sex: 30 / FADM Date: 05/15/25 Loc: US Attending Dr: Deisy Howell D.O. Ordering Physician: Deisy Howell D.O. Date of Service: 05/15/25 Procedure(s): US OB BPP w non-stress Accession Number(s): [id number] cc: Deisy Howell D.O.; Shashi Hargrove M.D. [place] [id number] Patient Name: JOCELYN FREEMAN MRN: [facility]:[id number] date: 1995 Sex: F Assigned Patient Location: [facility] Current Patient Location: Accession/Order Number: [id number] Exam Date: 05/15/2025 18:34 Report Date: 05/15/2025 18:40 At the request of: DEISY HOWELL DO Procedure: US OB BPP w non-stress US OB BPP w non-stress 05/15/2025 5:33 PM SIGNS AND SYMPTOMS: 06/05/2025 POLYHYDRAMINOS AFFECTING O40.3XX0 PROTOCOL: Transabdominal sonographic imaging of the gravid uterus COMPARISON: 05/08/2025 FINDINGS: Estimated gestational age is 37 weeks and 0 days. heart rate is 157 beats per minute. The Amniotic fluid index is 22.64 cm with the deepest vertical pockets measuring 8.28 cm and 8.88 cm. Biophysical Profile: movement: 2/2 tone: 2/2 breathing movements: 2/2 Amniotic fluid volume: 2/2 US/US OB BPP w non-stress IMPRESSION: Biophysical Profile Score: 8/8 The Amniotic fluid index is 22.64 cm with the deepest vertical pockets measuring 8.28 cm and 8.88 cm consistent with polyhydramnios. Impression dictated by: Valentino Dominguez M.D. 05/15/2025 6:40 PM Dictation Location: [place] [address] Electronically authenticated by: [id number] Y Date: 8:40 Dictated By: Valentino Dominguez M.D. Signed By:05/15/251842 DD/ 39 TD/TT: Events Director: us Deisy Howell DO [facility] IMAGING Final Result * (ABNORMAL) POCT urinalysis dipstick manually resulted [...] - Positive Urine 2025 3:07 PM EDT [facility] POINT OF CARE TEST ENTER/EDIT OR DERABLES Final Result * US OB follow up [...] Polyhydramnios. Interpreted by: Electronically signed by TATO BENOIT II, MD, PHD at 28-Apr-2025 08:26:54 AM [facility] Procedure Note Tato Benoit MD - 04/28/2025 EXAM: US OB FOLLOW [...] Polyhydramnios. Interpreted by: Electronically signed by TATO BENOIT II, MD, PHD [id number] 08:26:54 AM [facility] us Deisy Dante DO IM OB US PROCEDURES Final Resul t * AMNISURE (04/25/2025 4:15 PM EDT) Pathologist [facility] AMNISURE NEGATIVE NEGATIVE [facility] 04/25/2025 4:15 PM EDT 04/25/2025 4:20 PM EDT Narrative [facility] - 04/25/2025 4:33 PM EDT Deisy Dante DO LAB BLOOD ORDERABLES Final Resul t Performing Organization Address [facility] Co de Phone Number [facility] * (ABNORMAL) [facility] URINE MICROSCOPIC ONLY (04/25/2025 4:15 PM EDT) [facility] WBC 10-20(A) NONE SEEN #/HPF TBH [...] Narrative [facility] - 04/25/2025 4:42 PM EDT Deisy Dante DO [facility] Final Result Performing Organization Address [facility] de Phone Number [facility] TB * (ABNORMAL) TBH UA (CLEAN/CATCH) SEWING MACHINE ADJUSTER/MICRO IF IND. (04/25/2025 4:15 PM EDT) [facility] COLOR URINE LT. YELLOW YELLOW TBH [...] PM EDT 04/25/2025 4:26 PM EDT Narrative LYDIAAL - 04/25/2025 4:42 PM EDT us Deisy Dante DO [facility] Final Result Performing Organization Address City/[facility]/ZIP Co de Phone Number [facility] * GLUCOSE 1 HOUR (03/06/2025 9:29 AM EDT) GLUCOSE 1 HOUR 116 <130 mg/dL TBH 03/06/2025 9:29 AM EDT 03/06/2025 9:32 AM EDT Narrative CHENCHOISYAL - 03/06/2025 10:05 AM EDT us Deisy Dante DO LAB BLOOD ORDERABLES Final Resul t Performing Organization Address [facility] Co de Phone Number [facility] TB * (ABNORMAL) ALL CBC WITH AUTO DIFF (03/06/2025 9:29 AM EDT) TB WBC 10.4 4.0 - 11.0 10 3/uL TBH TBH RBC 3.96(L) 4.20 - 5.40 10 6/uL [facility]H TBH HGB 12.1 12.0 - 16.0 g/dL TBH TB HCT 35.7(L) 36.0 - 48.0 % [...] us Deisy Hernandezo DO [facility] Final Result [facility] * Pap Smear (12/27/2024 12:00 AM [...] COMMUNITY MEDICAID [place] [employer] Care Teams Hospital Personnel Director Relationship Specialty Start Date End Date Shashi Hargrove MD [address] [place] [address] PCP - General Family Medicine 05/11/23
--- OUTSIDE RECORDS SUMMARY | 2025-05-17 16:29 | XMS_ITS | Patient Health Record ---
Author Organization The [facility] in [place] Address [address] [place] [address] Care Team Providers Care Bicycle Designer Name Role Phone Beena Ethan Primary Care Provider MELODIE HARGROVE Unavailable [phone] Allergies No Known Allergies Results Component Value Reference Range Notes CBC AUTO DIFF Reviewed date:06/09/2024 08:39:42 PM Interpretation: Performing Lab: Notes/Report: [facility] , White Blood Count 7.5 [...] 10 3/uL Performing Lab: see note - [facility] FREE T4 Reviewed date:06/09/2024 08:39:42 PM Interpretation: Performing Lab: Notes/Report: [facility] , Free T4 0.84 0.76-1.46 ng/dL Performing Lab: see note - [facility] LB Luteinizing Hormone(LH) Reviewed date:06/12/2024 04:56:24 PM Interpretation: Performing Lab: Notes/Report: [facility] , Luteinizing Hormone(LH) 9.5 . mIU/mL Adult Female Range Follicular phase 2.4 - 12.6 Ovulation phase 14.0 - 95.6 Luteal phase 1.0 - 11.4 Postmenopausal 7.7 - 58.5 Performing Lab: see note - [facility] LB FSH Reviewed date:06/12/2024 04:56:24 PM Interpretation: Performing Lab: Notes/Report: [facility] , FSH 5.9 . mIU/mL Adult Female Range Follicular phase 3.5 - 12.5 Ovulation phase 4.7 - 21.5 Luteal phase 1.7 - 7.7 Postmenopausal 25.8 - 134.8 Performed at: [facility] [address] [id number] Custodial Worker: Aguilar Machado PhD, Phone: [phone] Performing Lab: see note - [facility] LB DHEA-Sulfate Reviewed date:06/12/2024 04:56:24 PM Interpretation: Performing Lab: Notes/Report: [facility] , DHEA-Sulfate 145.0 84.8-378.0 ug/dL Performing Lab: see note - [facility] LB US pelvis transvaginal Reviewed date:06/28/2024 03:19:56 PM Interpretation: Performing Lab: Notes/Report: Source Facility: [place] [address] [address] Ultrasound Report Signed Patient: JOCELYN FREEMAN V MR#: [id number] : 1995 Acct:[id number] Age/Sex: 29 / F ADM Date: 06/27/24 Loc: [facility] Attending Dr: Deisy Howell D.O. Ordering Physician: Deisy Howell D.O. Date of Service: 06/27/24 Procedure(s): US pelvis transvaginal Accession Number(s): [id number] cc: Deisy Howell D.O.; Melodie Hargrove M.D. The [address] [address] Patient Name: JOCELYN FREEMAN MRN: [id number] date: 1995 Sex: F Assigned Patient Location: [facility] Current Patient Location: Accession/Order Number: [id number] Exam Date: 06/27/2024 09:02 Report Date: 06/28/2024 [...] M.D. Signed By: 06/28/24808 DD/ 6 TD/TT: Contact Officer: The [place] [id number] Ultrasound Report Signed Patient: JOCELYN FREEMAN V MR#: [id number] : 1995 Acct:[id number] Age/Sex: 29 / F ADM Date: 06/27/24 Loc: [facility] Attending Dr: Deisy Howell D.O. Ordering Physician: Deisy Howell D.O. Date of Service: 06/27/24 Procedure(s): US pel vis transvaginal Accession Number(s): [id number] cc: Deisy Howell D.O. ; Melodie Hargrove M.D. [place] [id number] Patient Name: JOCELYN FREEMAN MRN: [id number] date: 1995 Sex: F Assigned Patient Location: [facility] Current Patient Location: Accession/Order Numb er: [id number] Exam Date: 06/27/2024 09:02 Report Date: 06/28/2024 [...] M.D. Signed By: 06/28/24808 DD/ 6 TD/TT: Contact Officer: ISIDRO T3 Reviewed date:07/04/2024 08:33:26 PM Interpretation: Performing Lab: Notes/Report: [facility] , Free T3 2.64 2.18-3.98 pg/mL Performing Lab: see note ML - [facility] LB T4 Reviewed date:07/04/2024 08:33:26 PM Interpretation: Performing Lab: Notes/Report: [facility] , T4 Thyroxine 6.80 4.80-13.90 ug/dL Performing Lab: see note ML - [facility] LB TSH Reviewed date:07/04/2024 08:33:26 PM Interpretation: Performing Lab: Notes/Report: [facility] , Thyroid Stimulating Hormone 4.094 0.358-3.740 uIU/mL Performing Lab: see note ML - [facility] LB FREE T4 Reviewed date:09/16/2024 12:18:08 PM Interpretation: Performing Lab: Notes/Report: [facility] , Free T4 0.81 0.76-1.46 ng/dL Performing Lab: see note ML - [facility] LB TSH Reviewed date:09/16/2024 12:18:08 PM Interpretation: Performing Lab: Notes/Report: [facility] , Thyroid Stimulating Hormone 2.195 0.358-3.740 uIU/mL Performing Lab: see note ML - [facility] LB CBC AUTO DIFF Reviewed date:12/24/2024 04:34:56 PM Interpretation: Performing Lab: Notes/Report: [facility] , White Blood Count 9.6 [...] 0.00-0.03 10 3/uL Performing Lab: see note [facility] LB GLYCOHEMOGLOBIN A1C Reviewed date:12/24/2024 04:34:56 PM Interpretation: Performing Lab: Notes/Report: [facility] , Glycohemoglobin A1C 5.1 4.5-6.2 % ADA RECOMMENDED LIMIT 4.0 - 6.0 ADA THERAPEUTIC TARGET < 7.0 ACTION SUGGESTED > 7.0 Estimated Average Glucose 100 Performing Lab: see note [facility] LB RUBELLA AB IGG Reviewed date:12/24/2024 04:34:56 PM Interpretation: Performing Lab: Notes/Report: [facility] , Rubella Antibodies, IgG 0.91 Immune > 0.99 index A second sample should be collected and tested no less than 2-4 weeks. Non-immune <0.90 Equivocal 0.90 - 0.99 Immune >0.99 Performed at: [address] [id number] Custodial Worker: Aguilar Machado PhD, Phone: [phone] Performing Lab: see note [facility] Type and Screen Reviewed date:12/24/2024 04:34:56 PM Interpretation: Performing Lab: Notes/Report: [facility] , Blood Type B Positive Antibody Screen NEGATIVE HIV Ab/p24 Ag with Reflex Reviewed date:12/24/2024 04:34:56 PM Interpretation: Performing Lab: Notes/Report: [facility] , HIV Ab/p24 Ag Screen Non Reactive Non Reactive HIV-1/HIV-2 antibodies and HIV-1 p24 antigen were NOT detected. There is no laboratory evidence of HIV infection. HIV Negative Performed at: [address] [id number] Custodial Worker: Aguilar Machado PhD, Phone: [phone] Performing Lab: see note - [facility] LB [...] utilized, such as Treponema pallidum (Syphilis) Screening Salome (135622) or Rapid Plasma Reagin (RPR) Test With Reflex to Quantitative RPR and Confirmatory Treponema pallidum Antibodies (276089). Performed at: [address] [id number] Custodial Worker: Aguilar Machado PhD, Phone: [phone] Performing Lab: see note [facility] LB HCV Antibody RFX to Quant PC R Reviewed date:12/24/2024 04:34:56 PM Interpretation: Performing Lab: Notes/Report: [facility] , HCV Ab Non Reactive Non Reactive Interpretation: Comment . Not infected with HCV unless early or acute infection is suspected (which may be delayed in an immunocompromised individual), or other evidence exists to indicate HCV infection. Performing Lab: see note [facility] LB HBsAg Screen Reviewed date:12/24/2024 04:34:56 PM Interpretation: Performing Lab: Notes/Report: [facility] , HBsAg Screen Negative Negative Performed at: [address] [id number] Custodial Worker: Aguilar Machado PhD, Phone: [phone] Performing Lab: see note [facility] LB Urine Culture, Routine Reviewed date:12/25/2024 04:31:37 [...] Culture, Routine Urine Culture, Routine Performed at: [facility] Culture, Routine Urine Culture, Routine [address] [place], [place] [id number] Urine Culture, Routine Urine Culture, Routine Custodial Worker: Chilango Machado PhD, Phone: [phone] Urine Culture, Routine Performing Lab: see note LC - [facility] LB SEE REPORT - Electronic Publisher Id information not found for OBX-specific photo producer legend Box Test Reviewed date:12/24/2024 04:34:56 PM Interpretation: Performing Lab: Notes/Report: [employer] [facility] , BOX Test Sent Out Carmine BOX Test Reference Lab Carmine BOX Test Date Sent 12/23/24 Performing Lab: see note - [facility] LB IGP,Aptima HPV,Age Gdln Reviewed date:01/01/2025 11:26:48 AM Interpretation: Performing Lab: Notes/Report: SPATULA-ALONE CERVIX [facility] , Age Gdln ACOG Testing Note . TESTS RESULT FLAG UNITS REF RANGE LAB Clinician Provided Cytology Information Source.............Cer vix Other..............Pre gnant No. of containers..01 ThinPrep Vial Age Algo ACOG Soraida... FLAG LEGEND: L-Low Normal,H-High Normal,LL-Alert Low,HH-Alert High <-Panic Low,>-Panic High,A-Abnormal,AA-Cri tical Abnormal Performed at: 01 =G [facility] [address] [facility] [address] Haily Cook MD, IGP, Aptima HPV, rfx 16/18,45 Note . TESTS RESULT FLAG UNITS REF RANGE LAB DIAGNOSIS: 02 NEGATIVE FOR INTRAEPITHELIAL LESION OR MALIGNANCY. Specimen adequacy: 02 Satisfactory for evaluation. No endocervical component is identified. Performed by: 02 Janneth Guerrero, Financial Investment Manager (ASCP) . 02 Note: Note 02 The [...] tical Abnormal Performed at: 02 WB [facility] [address] [facility] [place] [address] Haily Cook MD, HPV Aptima Negative Negative This nucleic acid amplification test detects fourteen high- risk HPV types (16,18,31,33,35,39,45, 51,52,56,58,59,66,68) without differentiation. Performed at: =G - [facility] [id number] Custodial Worker: Haily Cook MD, Phone: [phone] Performed at: - [facility] [address] [id number] Custodial Worker: Haily Cook MD, Phone: [phone] Performing Lab: see note - [facility] LB PROF CHEM 8 (BAS METB) Reviewed date:02/02/2025 07:34:33 PM Interpretation: Performing Lab: Notes/Report: [facility] , Sodium 136 136-145 mmol/L [...] Performing Lab: see note ML - [facility] Troponin I High Sensitivity Reviewed date:02/02/2025 07:34:33 PM Interpretation: Performing Lab: Notes/Report: [facility] , Troponin I High Sensitivity <4.0 4.0-51.3 pg/mL CUT-OFF POINTS HAVE BEEN ESTABLISHED BASED ON THE FOURTH UNIVERSAL DEFINITION OF MYOCARDIAL INFARCTION. THE UPPER REFERENCE LIMIT (URL) OF TROPONIN, DEFINED THE 99TH PERCENTILE OF cTnI DISTRIBUTION IN A REFERENCE POPULATION, HAS BEEN CONFIRMED THE DECISION THRESHOLD FOR CT DIAGNOSIS. 99TH PERCENTILE = 51.4 PG/ML NOTE: HIGH-SENSITIVITY TROPONIN ASSAY IS NOT INTENDED TO BE USED IN ISOLATION BUT SHOULD BE INTERPRETED IN CONJUNCTION WITH OTHER DIAGNOSTIC AND CLINICAL INFORMATION. Performing Lab: see note ML - [facility] LB CBC AUTO DIFF Reviewed date:03/06/2025 08:37:44 PM Interpretation: Performing Lab: Notes/Report: [facility] , White Blood Count 10.4 [...] 3/uL Performing Lab: see note ML - [facility] LB Glucose 1 Hour Reviewed date:03/06/2025 08:37:44 PM Interpretation: Performing Lab: Notes/Report: [facility] , Glucose 1 Hour 116 <130 mg/dL Performing Lab: see note - [facility] LB URINE MICROSCOPIC ONLY Reviewed date:04/26/2025 09:45:57 PM Interpretation: Performing Lab: Notes/Report: [facility] , WBC Urine 10-20 NONE SEEN #/HPF RBC Urine 2-5 0-2 #/HPF Bacteria Urine MODERATE NONE SEEN #/HPF Mucus Urine NONE SEEN NONE SEEN Squamous Epithelial Cell Urine MODERATE NONE/RARE #/LPF Crystals Seen? None Seen None Seen #/HPF Cast Seen? NONE SEEN NONE SEEN #/LPF Urine Culture Indicated YES-LC Performing Lab: see note ML - [facility] US OB BPP w non-stress Reviewed date:05/09/2025 08:17:35 AM Interpretation: Performing Lab: Notes/Report: Source Facility: [place] [address] Ultrasound Report Signed Patient: JOCELYN FREEMAN V MR#: [id number] : 1995 Acct:[id number] Age/Sex: 29 / F ADM Date: 05/08/25 Loc: US Attending Dr: Deisy Howell D.O. Ordering Physician: Deisy Howell D.O. Date of Service: 05/08/25 Procedure(s): US OB BPP w non-stress Accession Number(s): [id number] cc: Deisy Howell D.O.; Melodie Hargrove M.D. The [place] [address] Patient Name: JOCELYN FREEMAN MRN: [id number] date: 1995 Sex: F Assigned Patient Location: [facility] Current Patient Location: Accession/Order Number: [id number] Exam Date: 05/08/2025 21:48 Report Date: 05/08/2025 [...] Graham M.D. 05/08/2025 9:49 PM Dictation Location: Recognition PRO Electronically authenticated by: [id number] Y Date: 05/08/2025 21:49 Dictated By: Echo Graham D.O. Signed By: 05/08/252151 DD/ 48 TD/TT: Contact Officer: [place] [address] Ultrasound Report Signed Patient: JOCELYN FREEMAN V MR#: [id number] : 1995 Acct:[id number] Age/Sex: 29 / F ADM Date: 05/08/25 Loc: US Attending Dr: Deisy Howell D.O. Ordering Physician: Deisy Howell D.O. Date of Service: 05/08/25 Procedure(s): US OB BPP w non-stress Accession Number(s): [id number] cc: Deisy Howell D.O. ; Melodie Hargrove M.D. [place] [address] Patient Name: JOCELYN FREEMAN MRN: [id number] date: 1995 Sex: F Assigned Patient Location: [facility] Current Patient Location: Accession/Order Numb er: [id number] Exam Date: 05/08/2025 21:48 Report Date: 05/08/2025 [...] Graham M.D. 05/08/2025 9:49 PM Dictation Location: Recognition PRO Electronically authenticated by: [id number] Y Date: 05/08/2025 21:49 Dictated By: Cecilio Graham D.O. Signed By: 05/08/252151 DD/ 48 TD/TT: Contact Officer: Strep Gp B Culture+Rflx (Not yet reviewed by provider) Interpretation: Performing Lab: Notes/Report: [facility] , Strep Gp B Culture+Rflx See Below For Report Strep Gp B Culture+Rflx Strep Gp B Culture+Rflx Negative Strep Gp B Culture+Rflx Strep Gp B Culture+Rflx Centers for Dise ase Control and Prevention (CDC) and Strep Gp B Culture+Rflx Strep Gp B Culture+Rflx [employer] [employer] Strep Gp B Culture+Rflx Strep Gp B Culture+Rflx (ACOG) guideline s for prevention of group B Strep Gp B Culture+Rflx Strep Gp B Culture+Rflx streptococcal (G BS) disease specify co-collection of Strep Gp B Culture+Rflx Strep Gp B Culture+Rflx a vaginal and re ctal swab specimen to maximize Strep Gp B Culture+Rflx Strep Gp B Culture+Rflx sensitivity of G BS detection. Per the CDC and ACOG, Strep Gp B Culture+Rflx Strep Gp B Culture+Rflx swabbing both th e lower vagina and rectum Strep Gp B Culture+Rflx Strep Gp B Culture+Rflx substantially in creases the yield of detection Strep Gp B Culture+Rflx Strep Gp B Culture+Rflx compared with sa mpling the vagina alone. Strep Gp B Culture+Rflx Strep Gp B Culture+Rflx Penicillin G, am picillin, or cefazolin are indicated Strep Gp B Culture+Rflx Strep Gp B Culture+Rflx for intrapartum prophylaxis of GBS Strep Gp B Culture+Rflx Strep Gp B Culture+Rflx colonization. Re flex susceptibility testing should be Strep Gp B Culture+Rflx Strep Gp B Culture+Rflx performed prior to use of clindamycin only on GBS Strep Gp B Culture+Rflx Strep Gp B Culture+Rflx isolates from penicillin-allergic women who are Strep Gp B Culture+Rflx Strep Gp B Culture+Rflx considered a hig h risk for anaphylaxis. Treatment with Strep Gp B Culture+Rflx Strep Gp B Culture+Rflx vancomycin witho ut additional testing is warranted if Strep Gp B Culture+Rflx Strep Gp B Culture+Rflx resistance to cl indamycin is noted. Strep Gp B Culture+Rflx Strep Gp B Culture+Rflx Performed at: - [facility] Strep Gp B Culture+Rflx Strep Gp B Culture+Rflx [address] [place], [place] [id number] Strep Gp B Culture+Rflx Strep Gp B Culture+Rflx Custodial Worker: Sherry Machado PhD, Phone: [phone] Strep Gp B Culture+Rflx Performing Lab: see note LC - [facility] LB SEE REPORT - Electronic Publisher Id information not found for OBX-specific photo producer legend US OB BPP w non-stress Reviewed date:05/15/2025 08:14:04 PM Interpretation: Performing Lab: Notes/Report: Source Facility: [place] [address] Ultrasound Report Signed Patient: JOCELYN FREEMAN V MR#: [id number] : 1995 Acct:[id number] Age/Sex: 30 / F ADM Date: 05/15/25 Loc: US Attending Dr: Deisy Howell D.O. Ordering Physician: Deisy Howell D.O. Date of Service: 05/15/25 Procedure(s): US OB BPP w non-stress Accession Number(s): [id number] cc: Deisy Howell D.O.; Melodie Hargrove M.D. [place] [address] Patient Name: JOCELYN FREEMAN MRN: [id number] date: 1995 Sex: F Assigned Patient Location: [facility] Current Patient Location: Accession/Order Number: [id number] Exam Date: 05/15/2025 18:34 Report Date: 05/15/2025 [...] 05/15/2025 6:40 PM Dictation Location: [place] [address] Electronically authenticated by: [id number] Y Date: 05/15/2025 18:40 Dictated By: Valentino Dominguez M.D. Signed By: 05/15/251842 DD/ 39 TD/TT: Contact Officer: [place] [address] Ultrasound Report Signed Patient: JOCELYN FREEMAN V MR#: [id number] : 1995 Acct:[id number] Age/Sex: 30 / F ADM Date: 05/15/25 Loc: US Attending Dr: Deisy Howell D.O. Ordering Physician: Deisy Howell D.O. Date of Service: 05/15/25 Procedure(s): US OB BPP w non-stress Accession Number(s): [id number] cc: Deisy Howell D.O. ; Melodie Hargrove M.D. [address] [address] Patient Name: JOCELYN FREEMAN MRN: [id number] date: 1995 Sex: F Assigned Patient Location: [facility] Current Patient Location: Accession/Order Numb er: [id number] Exam Date: 05/15/2025 18:34 Report Date: 05/15/2025 18:40 At the request of: DEISY HOWELL DO Procedure: US OB fet al BPP w non-stress US OB BPP w non-stress 05/15/2025 5:33 PM SIGNS AND SYMPTOMS: 06/05/2025 POLYHYDRAMINOS AFFEC TING O40.3XX0 PROTOCOL: Transabdom inal sonographic imaging of the gravid uterus COMPARISON: 05/08/2025 FINDINGS: Estimated gestationa l age is 37 weeks and 0 days. heart rate is 157 beats per minute. The Amniotic fluid i ndex is 22.64 cm with the deepest vertical pockets measuring 8.28 cm an d 8.88 cm. Biophysical Profile: movement: 2/2 tone: 2/2 breathing movements: 2/2 Amniotic fluid volum e: 2/2 U S/US OB BPP w non-stress IMPRESSION: Biophysical Profile Score: 8/8 The Amniotic fluid i ndex is 22.64 cm with the deepest vertical pockets measuring 8.28 cm an d 8.88 cm consistent with polyhydramnios. Impression dictated by: Valentino Dominguez M.D. 05/15/2025 6:40 PM Dictation Location: [place] [address] Electronically authenticated by: [id number] Y Date: 05/15/2025 18:40 Dictated By: Valentino Dominguez M.D. Signed By: 05/15/251842 DD/ 39 TD/TT: Contact Officer: [employer]* Reviewed date:04/25/2025 04:36:16 PM Interpretation: Performing Lab: Notes/Report: [facility] , [employer] NEGATIVE NEGATIVE Performing Lab: see note ML - [facility] LB UA (CLEAN or CATCH) NEWS REEL CAMERAMAN or M ICRO IF IND. Reviewed date:04/26/2025 09:45:57 PM Interpretation: Performing Lab: Notes/Report: [facility] , Color Urine LT. YELLOW YELLOW Clarity Urine CLEAR CLEAR Specific [place] Urine 1.020 1.005-1.025 pH Urine 7.5 5.0-9.0 Protein Urine 30 NEG/TRACE mg/dL Glucose Urine UA NEGATIVE NEGATIVE mg/dL Bilirubin Urine NEGATIVE NEGATIVE Ketones Urine NEGATIVE NEGATIVE mg/dL Blood Urine NEGATIVE NEGATIVE Nitrite Urine NEGATIVE NEGATIVE Urobilinogen Urine 1.0 0.2-1.0 EU/dL Leukocyte Esterase Urine MODERATE NEGATIVE Urine Microscopic Indicated YES Performing Lab: see note ML - [facility] LB XR chest 1V Reviewed date:02/02/2025 07:34:33 PM Interpretation: Performing Lab: Notes/Report: Source Facility: [facility] [place] [address] [place] [address] XRay Report Signed Patient: JOCELYN FREEMAN V MR#: [id number] : 1995 Acct:[id number] Age/Sex: 29 / F ADM Date: 02/02/25 Loc: ER Attending Dr: Ordering Physician: Ashlee Erickosn M.D. Date of Service: 02/02/25 Procedure(s): XR chest 1V Accession Number(s): [id number] cc: Melodie Hargrove M.D.; Ashlee Erickson M.D. The [place] [address] Patient Name: JOCELYN FREEMAN MRN: [id number] date: 1995 Sex: F Assigned Patient Location: ER Current Patient Location: ER Accession/Order Number: [id number] Exam Date: 02/02/2025 11:16 Report Date: 02/02/2025 [...] Tangela Ellis M.D.02/02/2025 11:18 AM Dictation Location: [place] [address] Electronically authenticated by: [id number] Y Date: 02/02/2025 11:18 Dictated By: Tangela Ellis M.D. Signed By: 02/02/25 1120 DD/ 1118 TD/TT: Contact Officer: The [place] [id number] XRay Report Signed Patient: JOCELYN FREEMAN V MR#: [id number] : 1995 Acct:[id number] Age/Sex: 29 / F ADM Date: 02/02/25 Loc: ER Attending Dr: Ordering Physician: Ashlee Erickson M.D. Date of Service: 02/02/25 Procedure(s): XR chest 1V Accession Number(s): [id number] cc: Melodie Hargrove M.D. ; Ashlee Erickson M.D. The [place] [address] Patient Name: JOCELYN FREEMAN MRN: [id number] date: 1995 Sex: F Assigned Patient Location: ER Current Patient Loca tion: ER Accession/Order Numb er: [id number] Exam Date: 02/02/2025 11:16 Report Date: 02/02/2025 [...] Tangela Ellis M.D.02/02/2025 11:18 AM Dictation Location: [place] [address] Electronically authenticated by: [id number] Y Date: 02/02/2025 11:18 Dictated By: Tangela Ellis M.D. Signed By: 02/02/25 1120 DD/ 1118 TD/TT: Contact Officer: ECG 12 lead Reviewed date:02/02/2025 10:00:35 PM Interpretation: Performing Lab: Notes/Report: Source Facility: [place] [address] [place] [address] Electrocardiograph Report Signed Patient: JOCELYN FREEMAN V MR#: [id number] : 1995 Acct:[id number] Age/Sex: 29 / F ADM Date: 02/02/25 Loc: ER Attending Dr: Ordering Physician: Ashlee Erickson M.D. Date of Service: 02/02/25 Procedure(s): ECG 12 lead Accession Number(s): [id number] cc: [facility] Test Date: 2025-02-02 Pat Name: JOCELYN FREEMAN Department: Room: - Gender: Female [employer]: : 1995 Requested By: 1030 Order Number: [id number] Reading MD: CYNDI FINK M.D. Measurements Intervals [place] Rate: 90 P: 44 KS: 220 QRS: -8 QRSD: 68 T: 41 QT: 342 QTc: 390 Interpretive Statements 1100 Sinus rhythm 2231 First degree AV block 8102 Low QRS voltage in chest leads 9150 abnormal ECG Compared to ECG 04/17/2023 10:07:42 First degree AV block now present Electronically Signed On 02-02-2025 20:26:48 EDT by CYNDI FINK M.D. Dictated By: CYNDI FINK Signed By: 02/02/252026 DD/ 1039 TD/TT: Contact Officer: [place] [address] Electrocardiograph Report Signed Patient: JOCELYN FREEMAN V MR#: [id number] : 1995 Acct:[id number] Age/Sex: 29 / F ADM Date: 02/02/25 Loc: ER Attending Dr: Ordering Physician: Ashlee Erickson M.D. Date of Service: 02/02/25 Procedure(s): ECG 12 lead Accession Number(s): [id number] cc: [facility] Test Date: 2025-02-02 Pat Name: JOCELYN Culver Department: 53 Room: - Gender: Female [employer]: : 1995 Requ ested By: 1030 Order Number: [id number] Reading MD: CYNDI FINK M.D. Measurements Intervals [place] Rate: 90 P: 44 KS: 220 QRS: -8 QRSD: 68 T: 41 [...] FINK Signed By: 02/02/252026 DD/ 38 TD/TT: Contact Officer: CBC AUTO DIFF Reviewed date:02/02/2025 07:34:33 PM Interpretation: Performing Lab: Notes/Report: [facility] , White Blood Count 10.7 4.0-11.0 [...] Performing Lab: see note ML - [facility] DRUG SCREEN RAPID (URINE) Reviewed date:12/24/2024 04:34:56 PM Interpretation: Performing Lab: Notes/Report: [facility] , Cannabinoid Screen Urine NEGATIVE [...] Performing Lab: see note ML - [facility] US OB <= 14 weeks fetus Reviewed date:12/04/2024 10:31:56 AM Interpretation: Performing Lab: Notes/Report: Source Facility: [place] [address] [place] [address] Ultrasound Report Signed Patient: JOCELYN FREEMAN V MR#: [id number] : 1995 Acct:[id number] Age/Sex: 29 / F ADM Date: 12/02/24 Loc: ER Attending Dr: Ordering Physician: Echo Coyle Date of Service: 12/02/24 Procedure(s): US OB <= 14 weeks fetus Accession Number(s): [id number] cc: Melodie Hargrove M.D.; Echo Coyle [address] [id number] Patient Name: JOCELYN FREEMAN MRN: [facility]:[id number] date: 1995 Sex: F Assigned Patient Location: ER Current Patient Location: ER Accession/Order Number: [id number] Exam Date: 12/02/2024 12:22 Report Date: 12/02/2024 [...] M.D. Signed By: 12/02/248 DD/ 14 TD/TT: Contact Officer: The [address] [address] Ultrasound Report Signed Patient: JOCELYN FREEMAN V MR#: [id number] : 1995 Acct:[id number] Age/Sex: 29 / F ADM Date: 12/02/24 Loc: ER Attending Dr: Ordering Physician: Echo Coyle Date of Service: 12/02/24 Procedure(s): US OB <= 14 weeks fetus Accession Number(s): [id number] cc: Melodie Hargrove M.D. ; Echo Coyle [address] [address] Patient Name: JOCELYN FREEMAN MRN: [facility]:[id number] date: 1995 Sex: F Assigned Patient Location: ER Current Patient Loca tion: ER Accession/Order Numb er: [id number] Exam Date: 12/02/2024 12:22 Report Date: 12/02/2024 [...] MIKE MCKEON Date: 12/02/2024 13:15 Dictated By: iMke Mckeon M.D. Signed By: 12/02/24 1318 DD/ 14 TD/TT: Contact Officer: TSH Reviewed date:09/28/2024 09:17:22 PM Interpretation: Performing Lab: Notes/Report: [facility] , Thyroid Stimulating Hormone 2.393 0.358-3.740 uIU/mL Performing Lab: see note ML - [facility] LB PREG QUANT HCG Reviewed date:09/28/2024 09:17:22 PM Interpretation: Performing Lab: Notes/Report: [facility] , HCG Quantitative 1721 5-50 0.2-1 WEEK 50-500 1-2 WEEKS 100-5,000 2-3 WEEKS 500-10,000 3-4 WEEKS 1,000-50,000 4-5 WEEKS 10,000-100,000 5-6 WEEKS 15,000-200,000 6-8 WEEKS 10,000-100,000 2-3 MONTHS Performing Lab: see note ML - [facility] LB CBC AUTO DIFF Reviewed date:09/28/2024 09:17:22 PM Interpretation: Performing Lab: Notes/Report: [facility] , White Blood Count 7.3 [...] 3/uL Performing Lab: see note ML - [facility] LB DHEA, Serum Reviewed date:06/16/2024 08:59:38 PM Interpretation: Performing Lab: Notes/Report: [facility] , DHEA, Serum 140 31-701 ng/dL This test was developed and its performance characteristics determined by [facility]. It has not been cleared or approved by the Food and Drug Administration. Performed at: [address] [id number] Custodial Worker: Emanuel Varela MD, Phone: [phone] Performing Lab: see note - [facility] LB TSH Reviewed date:06/09/2024 08:39:42 PM Interpretation: Performing Lab: Notes/Report: [facility] , Thyroid Stimulating Hormone 3.872 0.358-3.740 uIU/mL Performing Lab: see note ML - [facility] LB PREG QUANT HCG Reviewed date:06/09/2024 08:39:42 PM Interpretation: Performing Lab: Notes/Report: [facility] , HCG Quantitative <1 5-50 0.2-1 WEEK 50-500 1-2 WEEKS 100-5,000 2-3 WEEKS 500-10,000 3-4 WEEKS 1,000-50,000 4-5 WEEKS 10,000-100,000 5-6 WEEKS 15,000-200,000 6-8 WEEKS 10,000-100,000 2-3 MONTHS Performing Lab: see note ML - [facility] LB GLYCOHEMOGLOBIN A1C Reviewed date:06/09/2024 08:39:42 PM Interpretation: Performing Lab: Notes/Report: [facility] , Glycohemoglobin A1C 5.4 4.5-6.2 % ADA RECOMMENDED LIMIT 4.0 - 6.0 ADA THERAPEUTIC TARGET < 7.0 ACTION SUGGESTED > 7.0 Estimated Average Glucose 108 Performing Lab: see note ML - [facility] LB Urine Culture, Routine Reviewed date:04/29/2025 05:25:31 PM Interpretation: Performing Lab: Notes/Report: [facility] , Urine Culture, Routine See Below For Report Urine Culture, Routine Urine Culture, Routine Mixed urogenital cuco Urine Culture, Routine Urine Culture, Routine Less than 10,000 colonies/mL Urine Culture, Routine Urine Culture, Routine Performed at: [facility]rine Culture, Routine Urine Culture, Routine [address] [place] [phone] Urine Culture, Routine Urine Culture, Routine Custodial Worker: Chilango Machado PhD, Phone: [phone] Urine Culture, Routine Performing Lab: see note LC - [facility] LB SEE REPORT - Electronic Publisher Id information not found for OBX-specific photo producer legend Reason For Referral No Information Medications Medication SIG (Take, Route, Frequency, Duration) Notes Start Date End Date Status Sertraline HCl 100 MG TAKE 1 TABLET BY M OUTH EVERY DAY for 30 days Active Vkhkjgwv-Mjspqojrg-Clhfoun h 3.5-98359-9.1 1 drop into affected eye Ophthalmic Four [...] Problem Status W/U Status Risk Notes Problem 78067393 Other hypoglycemia (E16.1) Active confirmed Problem Hypothyroidism (44269949) Hypothyroidism (E03.9) Active confirmed Problem Arthralgia (15072108) Arthralgia (M25.50) Active confirmed Problem Shingles (7582635) Shingles (B02.9) Active confirmed Problem Laboratory test result abnormal (644673542) Abnormal laboratory test (R89.9) Active confirmed Problem Irritable bowel (51045142) Irritable bowel (K58.9) Active confirmed Problem Attention deficit hyperactivity disorder (239545169) ADHD (F90.9) Active confirmed Vital Signs Blood pressure diastolic 70 mm Hg 12/06/2024 Height 71 in 12/06/2024 Blood pressure systolic 122 mm Hg 12/06/2024 Weight 325.2 lbs 12/06/2024 BMI 45.35 kg/m2 12/06/2024 Encounters Encounter Location Date Provider Diagnosis [facility] [address] [place] [address] 06/30/2024 Ethan Hargrove [facility] [address] [place] [address] 07/04/2024 Ethan Hargrove Hypothyroidism E03.9 [facility] [address] [place] [address] 09/15/2024 Ethan Hargrove Other fatigue R53.83 and Abnormal weight gain R63.5 [facility] [address] [place] [address] 12/08/2024 Ethan Hargrove [facility] [address] [place] [address] 12/12/2024 Ethan Hargrove Acute non-recurrent sinusitis, unspecified location J01.90 [facility] [address] [facility] [place] [address] 04/25/2025 Ethan Hargrove [facility] [address] [facility] [place] [address] 05/23/2024 MELODIE HARGROVE [facility] [address] [facility] [place] [address] 06/09/2024 Ethan Hargrove Hypothyroidism, unspecified E03.9 [facility] [address] [facility] [place] [address] 06/14/2024 Ethan Hargrove [facility] [address] [facility] [place] [address] 12/06/2024 Ethan Hargrove Acute non-recurrent sinusitis, unspecified location J01.90 and Nasal congestion R09.81 Assessments Encounter Date Diagnosis (ICD Code) Assessment Notes Treatment Notes Treatment Clinical Notes Section Notes 12/06/2024 Acute non-recurrent sinusitis, unspecified location (ICD-10 - J01.90) Rest and drink more liquids, especially water. You may use a humidifier or vaporizer to help keep the drainage moist. Npfc-pqr-ndepklf Nasal Saline may help the stuffy and runny nose. Use Ibuprofen and or Tylenol as needed for fever, chills, body aches or pain. Children 5 years old should not be given epcr-upw-yanpqgj cough and cold medications such as guaifenesin and dextromethorphan. If you're over age 5, you may try kmrs-sfp-yaiwvur cold medications such as guaifenesin and dextromethorphan, [...] (T4/TSH/FREE T3) 4 THYROID PANEL (T4/TSH/FREE T3) US renal bladder 12/29/2023 CT abdomen wo con 11/29/2023 Strep Gp B Culture+Rflx 05/11/2025 Insurance Providers Payer Name Payer Address Payer Phone Subscriber Number Group Number Insured Name Patient Relationship to Insured Coverage Start Date Coverage End Date [employer] [place] [employer] [address] [place] [phone] [id number] Jocelyn Freeman Self - patient is the insured 8 Medical (General) History Medical History History ICD Code Zoster without complications B02.9 Surgical History Surgery Date(Month/Year) Colonoscopy & EGD 04/27/24 Left Ovary Removal Angioplasty on Toes
--- OUTSIDE RECORDS SUMMARY | 2025-05-17 16:29 | XMS_ITS | Encounter Summary ---
Author Organization [facility] Address [address] [place] [address] Care Team Providers Care Contracting Specialist Name Role Phone Shashi Hargrove MD Primary Care Provider [phone] Encounter Details Date Type Department Care Team ([facility] Contact Info) Description 05/17/2025 Bamboo flowsheet [facility] [address] [facility] [place] [address] Kelle Mosley PA [address] [facility] [address] [place], [facility]11 Social History Tobacco Use Types Packs/Day [...] Description 05/24/2025 2:00 PM EDT Routine [facility] [address] [facility] [place] [address] Graham Howell, DO [address], [facility]11 documented as of this encounter Visit Diagnoses Not on filedocumented in this encounter Care Teams Contracting Specialist Relationship Specialty Start Date End Date Shashi Hargrove MD [address] [place] [address] PCP - General Family Medicine 05/11/23 documented as of this encounter
--- OUTSIDE RECORDS SUMMARY | 2025-05-17 16:29 | XMS_ITS | Patient Health Record ---
Author Organization [facility] Address [address] [place] [address] Care Team Providers Care Soaking Room Operator Name Role Phone Dr. Collins Mei Primary Care Provider [phone] Caryn Roth Unavailable [phone] Reason For Referral No Information Encounters Encounter Location Date Provider Diagnosis [facility] [address] [place] [address] 09/23/2024 Collins Mei Encounter for dental examination and cleaning with abnormal findings Z01.21 ; Other dental procedure status Z98.818 ; Disturbances in tooth eruption K00.6 ; Acute gingivitis, plaque induced K05.00 and Dental caries on pit and fissure surface penetrating into dentin K02.52 [facility] [address] [place] [address] 12/02/2024 Collins Mei Dental caries on pit [...] Coverage Start Date Coverage End Date Dental [place] [employer] [address] [address] [place] [address] [id number] ROSALIE FREEMAN Self - patient is the insured 3 [employer] [facility] [place] [address] [place] [address] [id number] ROSALIE FREEMAN Self - patient is the insured 3
--- OUTSIDE RECORDS SUMMARY | 2025-05-17 16:29 | XMS_ITS | Encounter Summary ---
Author Organization [facility] Address [address] [facility] [place] [address] Care Team Providers Care Music Video Director Name Role Phone Shashi Hargrove MD Primary Care Provider [phone] Encounter Details Date Type Department Care Team ([facility] Contact Info) Description 05/31/2024 Abstract [facility] OB [address] [place] [address] Graham Howell DO [address] [place], [place] [address] Social History Tobacco Use Types Packs/Day Years [...] Upcoming Encounters Date Type Department Care Team ([facility] Contact Info) Description 05/24/2025 2:00 PM EDT Routine [facility] [address] [place] [address] Graham Howell DO [address] [place], [facility]11 documented as of this encounter Visit Diagnoses Not on filedocumented in this encounter Care Teams Music Video Director Relationship Specialty Start Date End Date Shashi Hargrove MD [address] [place] [address] PCP - General Family Medicine 05/11/23 documented as of this encounter
--- OUTSIDE RECORDS SUMMARY | 2025-05-17 16:29 | XMS_ITS | Encounter Summary ---
Author Organization [facility] Address [address] [facility] [place] [address] Care Team Providers Care Electric Refrigerator Preparer Name Role Phone Shashi Hargrove MD Primary Care Provider [phone] Encounter Details Date Type Department Care Team ([facility] Contact Info) Description 12/23/2024 Abstract [facility] OB [address] [place] [address] Graham Howell [facility] [address] [place], [facility]11 Social History Tobacco Use Types Packs/Day [...] Upcoming Encounters Date Type Department Care Team ([facility] Contact Info) Description 05/24/2025 2:00 PM EDT Routine [facility] OB [address] [place] [address] Graham Howell, DO [facility] [address] [place], [facility]11 documented as of this encounter Visit Diagnoses Not on filedocumented in this encounter Care Teams Electric Refrigerator Preparer Relationship Specialty Start Date End Date Shashi Hargrove MD [address] [place] [address] PCP - General Family Medicine 05/11/23 documented as of this encounter
--- OUTSIDE RECORDS SUMMARY | 2025-05-17 16:29 | XMS_ITS | Encounter Summary ---
Author Organization [facility] Address [address] [email or web address] [address] Care Team Providers Care Road Supervisor Of Engines Name Role Phone Shashi Hargrove MD Primary Care Provider [phone] Encounter Details Date Type Department Care Team ([facility] Contact Info) Description 05/15/2025 Clinisync Result Encounter [facility] External Department Unsolicited Deisy Howell, DO [address] [place] [address] Social History Tobacco Use Types Packs/Day Years [...] Routine [facility] [address] [place] [address] Deisy Howell, DO [address] [place] [address] documented as of this encounter Procedures Procedure Name Priority Date/Time Associated Diagnosis Comments US OB BPP W NON-STRESS 05/15/2025 6:40 PM EDT documented in this encounter Results * US OB BPP W NON-STRESS (05/15/2025 6:40 PM EDT) Anatomical Region Laterality Modality Other 05/15/2025 6:40 PM EDT Narrative 05/15/2025 6:43 [place] [address] Ultrasound Report Signed Patient: JOCELYN FREEMAN V MR#: [id number] : 1995 Acct:[id number] Age/Sex: 30 / F ADM Date: 05/15/25 Loc: US Attending Dr: Deisy Howell D.O. Ordering Physician: Deisy Howell D.O. Date of Service: 05/15/25 Procedure(s): US OB BPP w non-stress Accession Number(s): [id number] cc: Deisy Howell D.O.; Shashi Hargrove M.D. [place] [id number] Patient Name: JOCELYN FREEMAN MRN: [id number] date: 1995 Sex: F Assigned Patient Location: [facility] Current Patient Location: Accession/Order Number: [id number] Exam Date: 05/15/2025 18:34 Report Date: 05/15/2025 [...] Dominguez M.D. 05/15/2025 6:40 PM Dictation Location: [place] [address] Electronically authenticated by: [id number] Y Date: 05/15/2025 18:40 Dictated By: Valentino Dominguez M.D. Signed By: 05/15/251842 DD/ 39 TD/TT: Packaging Supervisor: Procedure Note Radiology, Radiologist, - 05/15/2025 [place] [address] Ultrasound Report Signed Patient: JOCELYN FREEMAN VMR#: [id number] : 1995Acct:[id number] Age/Sex: 30 / FADM Date: 05/15/25 Loc: US Attending Dr: Deisy Howell D.O. Ordering Physician: Deisy Howell D.O. Date of Service: 05/15/25 Procedure(s): US OB BPP w non-stress Accession Number(s): [id number] cc: Deisy Howell D.O.; Shashi Hargrove M.D. The [place] [id number] Patient Name: JOCELYN FREEMAN MRN: [id number] date: 1995 Sex: F Assigned Patient Location: [facility] Current Patient Location: Accession/Order Number: [id number] Exam Date: 05/15/2025 18:34 Report Date: 05/15/2025 [...] Dominguez M.D. 05/15/2025 6:40 PM Dictation Location: [facility] Electronically authenticated by: [id number] Y Date: 8:40 Dictated By: Valentino Dominguez M.D. Signed By:05/15/251842 DD/ 39 TD/TT: Packaging Supervisor: [facility] DO [facility] Final Result documented in this encounter Visit Diagnoses Not on filedocumented in this encounter Care Teams Road Supervisor Of Engines Relationship Specialty Start Date End Date Shashi Hargrove MD [address] [place] [address] PCP - General Family Medicine 05/11/23 documented as of this encounter
--- OUTSIDE RECORDS SUMMARY | 2025-05-17 16:29 | XMS_ITS | Encounter Summary ---
Author Organization [facility] Address [address] [facility] [place] [address] Care Team Providers Care Weed Cutter Name Role Phone Shashi Hargrove MD Primary Care Provider [phone] Encounter Details Date Type Department Care Team ([facility] Contact Info) Description 12/23/2024 Abstract [facility] OB [address] [place] [address] Graham Howell [facility] [address] [place], [facility]11 Social History Tobacco Use Types Packs/Day [...] Upcoming Encounters Date Type Department Care Team ([facility] Contact Info) Description 05/24/2025 2:00 PM EDT Routine [facility] OB [address] [place] [address] Graham Howell, DO [facility] [address] [place], [facility]11 documented as of this encounter Visit Diagnoses Not on filedocumented in this encounter Care Teams Weed Cutter Relationship Specialty Start Date End Date Shashi Hargrove MD [address] [place] [address] PCP - General Family Medicine 05/11/23 documented as of this encounter
--- OUTSIDE RECORDS SUMMARY | 2025-05-17 16:29 | XMS_ITS | Encounter Summary ---
Author Organization [facility] Address [address] [place] [address] Care Team Providers Care Bakelite Molder Name Role Phone Shashi Hargrove MD Primary Care Provider [phone] Encounter Details Date Type Department Care Team ([facility] Contact Info) Description 06/28/2024 Clinisync Result Encounter [facility] External Department Unsolicited Deisy Howell, [address] [place] [address] Social History Tobacco Use Types Packs/Day Years [...] Upcoming Encounters Date Type Department Care Team ([facility] Contact Info) Description 05/24/2025 2:00 PM EDT Routine [facility] OB [address] [place] [address] Deisy Howell DO [address] [place], [place] [address] documented as of this encounter Procedures Procedure Name Priority Date/Time Associated Diagnosis Comments US PELVIS TRANSVAGINAL 06/28/2024 8:07 AM EDT documented in this encounter Results * US PELVIS TRANSVAGINAL (06/28/2024 8:07 AM EDT) Anatomical Region Laterality Modality Other 06/28/2024 8:07 AM EDT Narrative 06/28/2024 8:09 AM EDT [address] [address] Ultrasound Report Signed Patient: ALEXIA FREEMAN V MR#: [id number] : 1995 Acct:[id number] Age/Sex: 29 / F ADM Date: 06/27/24 Loc: NOMS Attending Dr: Deisy Howell D.O. Ordering Physician: Deisy Howell D.O. Date of Service: 06/27/24 Procedure(s): US pelvis transvaginal Accession Number(s): [id number] cc: Deisy Howell D.O.; Shashi Hargrove M.D. [address] [id number] Patient Name: ALEXIA FREEMAN MRN: [id number] date: 1995 Sex: F Assigned Patient Location: [facility] Current Patient Location: Accession/Order Number: [id number] Exam Date: 06/27/2024 09:02 Report Date: 06/28/2024 [...] M.D. Signed By: 06/28/24808 DD/ 6 TD/TT: Preboarder: Procedure Note Radiology, Radiologist, - 06/28/2024 [place] [address] Ultrasound Report Signed Patient: ALEXIA FREEMAN R#: [id number] : 1995Acct:[id number] Age/Sex: 29 / FADM Date: 06/27/24 Loc: NOMS Attending Dr: Deisy Howell D.O. Ordering Physician: Deisy Howell D.O. Date of Service: 06/27/24 Procedure(s): US pelvis transvaginal Accession Number(s): [id number] cc: Deisy Howell D.O.; Shashi Hargrove M.D. The [place] [id number] Patient Name: ALEXIA FREEMAN MRN: [id number] date: 1995 Sex: F Assigned Patient Location: [facility] Current Patient Location: Accession/Order Number: [id number] Exam Date: 06/27/2024 09:02 Report Date: 06/28/2024 [...] Duarte M.D. Signed By:06/28/24808 DD/ 6 TD/TT: Preboarder: us Deisy Howell DO [facility] Final Result documented in this encounter Visit Diagnoses Not on filedocumented in this encounter Care Teams Bakelite Molder Relationship Specialty Start Date End Date Shashi Hargrove MD [address] [place] [address] PCP - General Family Medicine 05/11/23 documented as of this encounter
--- OUTSIDE RECORDS SUMMARY | 2025-05-17 16:29 | XMS_ITS | Encounter Summary ---
Author Organization [facility] Address [address] [place] [address] Care Team Providers Care Unix Engineer Name Role Phone Shashi Hargrove MD Primary Care Provider [phone] Encounter Details Date Type Department Care Team (Late st Contact Info) Description 04/11/2015 Post-op Telephone [facility] General Surgery [address] [place], [place] [phone] Leila Wolff RN Social History Tobacco Use [...] on filedocumented in this encounter Care Teams Unix Engineer Relationship Specialty Start Date End Date Shashi Hargrove MD [address] [place] [address] PCP - General 04/05/15 documented as of this encounter
--- OUTSIDE RECORDS SUMMARY | 2025-05-17 16:29 | XMS_ITS | Clinical Summary ---
Author Organization [facility] Address [address] [place] [address] Care Team Providers Care Executive Assistant To General Counsel Name Role Phone Shashi Hargrove MD Primary Care Provider [phone] Allergies No known active allergies Medications sertraline [...] Comment SPECIMEN RECEIVED 12/21/2018 7:08 AM EST [facility] CERVICAL SWAB / Unknown 12/20/2018 6:10 PM EST 12/20/2018 6:10 PM EST Abdi Mcgill MD PATHOLOGY/CYTOLOGY ORDERABLES Final Result Performing Organization Address City/[facility]/ZIP Co de Phone Number [facility] [address] [place] [address], [facility] [phone] [address], [facility] [phone] * HIV Rapid 1&2 (02/21/2014 2:51 PM EDT) [facility] Rapid HIV 1&2 NONREACTIVE NR 02/22/2014 2:29 PM EDT [facility] Comment: Interpretation: The presence of antibody [...] characteristics of this test were determined by [facility]. It has not been cleared or approved by the U.S. Food and Drug Administration. The FDA has determined that such clearance is not necessary. Performed at [address] [place] [address] ([phone] 02/21/2014 2:51 PM EDT 02/21/2014 2:51 PM EDT Rachel Mejía KINDERGARTEN TUTOR - CNM IMMUNOLOGY ORDERABLES Final Result Performing Organization Address City/[facility]/ZIP Co de Phone Number [facility] [address] [place] [address], [facility] [phone] [facility] from Last 3 Months or Most Recently Relevant to Health Maintenance Insurance [facility] Advance Directives * Full Code (Latest Code Status on File) Date Activated Date Inactivated Comments 04/10/2015 8:54 AM 04/10/2015 5:11 PM * Full Code Date Activated Date Inactivated Comments 09/06/2014 12:25 AM 09/07/2014 4:46 PM * Full Code Date Activated Date Inactivated Comments 09/04/2014 3:03 PM 09/06/2014 12:25 AM Care Teams Executive Assistant To General Counsel Relationship Specialty Start Date End Date Shashi Hargrove MD [address] [place] [address] PCP - General 04/05/15
--- OUTSIDE RECORDS SUMMARY | 2025-05-17 16:29 | XMS_ITS | Encounter Summary ---
Author Organization [facility] Address [address] [facility] [place] [address] Care Team Providers Care Job Honer Name Role Phone Shashi Hargrove MD Primary Care Provider [phone] Encounter Details Date Type Department Care Team ([facility] Contact Info) Description 05/03/2023 Abstract [facility] [address] [place] [address] Kelle Mosley PA [address] [place] [address] Dr [place], [place] [address] Social History Tobacco Use Types Packs/Day Years [...] Team ([facility] Contact Info) Description 05/24/2025 2:00 PM EDT Routine NOM[facility] [address] [place] [address] Graham Howell DO [address] [place] [address] [place] [address] documented as of this encounter Visit Diagnoses Not on filedocumented in this encounter Care Teams Job Honer Relationship Specialty Start Date End Date Shashi Hargrove MD [address] [place] [address] PCP - General Family Medicine 05/11/23 documented as of this encounter
[2025-05-17 16:30] VITALS: BP 132/78; BP 138/72; PULSE 92; TEMP 36.7
--- OUTSIDE RECORDS SUMMARY | 2025-05-17 16:30 | XMS_ITS | Encounter Summary ---
Author Organization [facility] Address [address] [place] [address] Care Team Providers Care Experimental Rocketsled Mechanic Name Role Phone Shashi Hargrove MD Primary Care Provider [phone] Encounter Details Date Type Department Care Team ([facility] Contact Info) Description 2025 Bamboo flowsheet [facility] [address] [place] [address] Graham Howell, [facility] [address] [place], [id number] Social History Tobacco Use Types Packs/Day Years [...] Description 05/24/2025 2:00 PM EDT Routine [facility] [address] [place] [address] Graham Howell, [facility] [place], [id number] documented as of this encounter Visit Diagnoses Not on filedocumented in this encounter Care Teams Experimental Rocketsled Mechanic Relationship Specialty Start Date End Date Shashi Hargrove MD [address] [place] [address] PCP - General Family Medicine 05/11/23 documented as of this encounter
--- OUTSIDE RECORDS SUMMARY | 2025-05-17 16:30 | XMS_ITS | Encounter Summary ---
Author Organization [facility] Address [address] [facility] [address] Care Team Providers Care Blood Donor Unit Assistant Name Role Phone Shashi Hargrove MD Primary Care Provider [phone] Encounter Details Date Type Department Care Team ([facility] Contact Info) Description 05/08/2025 Clinisync Result Encounter [facility] External Department Unsolicited Deisy Howell, DO [address] [place] [address] Social History Tobacco Use Types Packs/Day Years [...] Routine [facility] [address] [place] [phone] Deisy Howell, DO [address] [place] [address] documented as of this encounter Procedures Procedure Name Priority Date/Time Associated Diagnosis Comments US OB BPP W NON-STRESS 05/08/2025 9:49 PM EDT documented in this encounter Results * US OB BPP W NON-STRESS (05/08/2025 9:49 PM EDT) Anatomical Region Laterality Modality Other 05/08/2025 9:49 PM EDT Narrative 05/08/2025 9:52 [place] [address] Ultrasound Report Signed Patient: JOCELYN FREEMAN V MR#: [id number] : 1995 Acct:[id number] Age/Sex: 29 / F ADM Date: 05/08/25 Loc: US Attending Dr: Deisy Howell D.O. Ordering Physician: Deisy Howell D.O. Date of Service: 05/08/25 Procedure(s): US OB BPP w non-stress Accession Number(s): [id number] cc: Deisy Howell D.O.; Shashi Hargrove M.D. [place] [id number] Patient Name: JOCELYN FREEMAN MRN: [id number] date: 1995 Sex: F Assigned Patient [facility]: [facility] Current Patient Location: Accession/Order Number: [id number] Exam Date: 05/08/2025 21:48 Report Date: 05/08/2025 [...] Graham M.D. 05/08/2025 9:49 PM Dictation Location: [employer] Electronically authenticated by: [id number] Y Date: 05/08/2025 21:49 Dictated By: Daniel Graham D.O. Signed By: 05/08/252151 DD/ 48 TD/TT: Service Inspector: Procedure Note Radiology, Radiologist, - 05/08/2025 [place] [address] Ultrasound Report Signed Patient: JOCELYN FREEMAN VMR#: [id number] : 1995Acct:[id number] Age/Sex: 29 FADM Date: 05/08/25 Loc: US Attending Dr: Deisy Howell D.O. Ordering Physician: Deisy Howell D.O. Date of Service: 05/08/25 Procedure(s): US OB BPP w non-stress Accession Number(s): [id number] cc: Deisy Howell D.O.; Shashi Hargrove M.D. The [address] [address] Patient Name: JOCELYN FREEMAN MRN: [facility]:[id number] date: 1995 Sex: F Assigned Patient Location: [facility] Current Patient Location: Accession/Order Number: [id number] Exam Date: 05/08/2025 21:48 Report Date: 05/08/2025 [...] Graham M.D. 05/08/2025 9:49 PM Dictation Location: [facility]PC-20 Electronically authenticated by: [id number] Y Date: :49 Dictated By: Daniel Graham D.O. Signed By:05/08/252151 DD/ 48 TD/TT: Service Inspector: us Deisy Dante DO [facility] Final Result documented in this encounter Visit Diagnoses Not on filedocumented in this encounter Care Teams Blood Donor Unit Assistant Relationship Specialty Start Date End Date Shashi Hargrove MD [address] [place] [address] PCP - General Family Medicine 05/11/23 documented as of this encounter
--- OUTSIDE RECORDS SUMMARY | 2025-05-17 16:30 | XMS_ITS | Encounter Summary ---
Author Organization [facility] Address [address] [place] [address] Care Team Providers Care Inside Sales Consultant Name Role Phone Shashi Hargrove MD Primary Care Provider [phone] Encounter Details Date Type Department Care Team (Late Contact Info) Description 05/04/2025 Telephone [facility] B[facility] OB [address] [facility] [place] [phone] Katie Fitzgerald MA Social History Tobacco Use [...] for most recent ultrasound. Orders faxed to [facility] pt to call and schedule. documented in this encounter Plan of Treatment Upcoming Encounters Date Type Department Care Team (Late Contact Info) Description 05/24/2025 2:00 PM EDT Routine [facility] OB [address] [facility] [place] [phone] Graham Howell, DO [address] [facility] [address] [place], [place] [phone] Scheduled Orders Name Type Priority Associated Diagnoses Orde r Schedule US biophysical profile w non stress test Imaging Routine Polyhydramnios affecting in third trimester ([facility]HS-HCC) Expected: 05/04/2025 (Approximate), Expires: 11/03/2025 documented as of this encounter Visit Diagnoses Diagnosis Polyhydramnios affecting in third trimester (HHS-HCC) documented in this encounter Care Teams Inside Sales Consultant Relationship Specialty Start Date End Date Shashi Hargrove MD [address] [facility] [place] [address] PCP - General Family Medicine 05/11/23 documented as of this encounter
--- OUTSIDE RECORDS SUMMARY | 2025-05-17 16:30 | XMS_ITS | Encounter Summary ---
Author Organization [facility] Address [address] [place] [address] Care Team Providers Care Olive Pitter Name Role Phone Shashi Hargrove MD Primary Care Provider [phone] Encounter Details Date Type Department Care Team ([facility] Contact Info) Description 05/05/2025 Abstract [facility] [address] [place] [address] Kelle Craig LPN [address] [place] [address] Social History Tobacco Use Types Packs/Day Years [...] PM EDT Routine [facility] [address] [facility] [place] [phone] Graham Howell DO [address] [facility] [address] [place], [place] [phone] documented as of this encounter Visit Diagnoses Not on filedocumented in this encounter Care Teams Olive Pitter Relationship Specialty Start Date End Date Shashi Hargrove MD [address] [facility] [place] [address] PCP - General Family Medicine 05/11/23 documented as of this encounter
--- OUTSIDE RECORDS SUMMARY | 2025-05-17 16:30 | XMS_ITS | Encounter Summary ---
Author Organization [facility] Address [address] [place] [address] Care Team Providers Care Ciaio Counter Molder Name Role Phone Shashi Hargrove MD Primary Care Provider [phone] Encounter Details Date Type Department Care Team ([facility] Contact Info) Description 05/05/2025 Patient Outreach [facility] [address] [place] [phone] Kelle Craig LPN [address] [place] [address] Social History Tobacco Use Types Packs/Day Years [...] PM EDT Routine [facility] OB [address] [facility] [place] [address] Graham Howell, DO [address] [facility] [place] [address] documented as of this encounter Visit Diagnoses Not on filedocumented in this encounter Care Teams Ciaio Counter Molder Relationship Specialty Start Date End Date Shashi Hargrove MD [address] [facility] [place] [address] PCP - General Family Medicine 05/11/23 documented as of this encounter
--- OUTSIDE RECORDS SUMMARY | 2025-05-17 16:30 | XMS_ITS | Encounter Summary ---
Author Organization [facility] Address [address] [place] [address] Care Team Providers Care Propagation Manager Name Role Phone Shashi Hargrove MD Primary Care Provider [phone] Encounter Details Date Type Department Care Team ([facility] st Contact Info) Description 09/10/2014 FollowUp Telephone Encounter [facility] Delivery [address] [place], [place] [phone] Delaney Mccray RN Social History Tobacco Use [...] 19 y.o. Call made 09/10/2014 1405 To [phone] (home) [] No answer [] Message left [...] your baby had an appointment with the lubrication technician yet? scheduled this week Have you made [...] there. Arpita and Katina were especially great. Harmans that Katina really went the extra mile to make sure we were comfortable. Was there anything we could have done to improve your stay? No documented in this encounter Plan of Treatment Not on file documented as of this encounter Visit Diagnoses Not on filedocumented in this encounter Care Teams Propagation Manager Relationship Specialty Start Date End Date Shashi Hargrove MD [address] [place] [address] PCP - General 04/05/15 documented as of this encounter
--- OUTSIDE RECORDS SUMMARY | 2025-05-17 16:30 | XMS_ITS ---
Author Organization [facility] Address [address] [place] [address] Care Team Providers Care Head Shipper Name Role Phone Shashi Hargrove MD Primary Care Provider [phone] [facility] ([facility]) Status:Enrolled (Active) Start date:05/02/2025 Enrollment date:05/05/2025 Enrollment reason:Identified by Health Plan Case Team Name Relationship Phone Kelle Craig LPN(Responsible Staff) Licensed [facility] Nurse [phone] Continued Care and Services Coordination
--- OUTSIDE RECORDS SUMMARY | 2025-05-17 16:30 | XMS_ITS | Encounter Summary ---
Author Organization [facility] Address [address] [place] [address] Care Team Providers Care Manager Graphic Name Role Phone Shashi Hargrove MD Primary Care Provider [phone] Encounter Details Date Type Department Care Team (Late st Contact Info) Description 09/09/2014 FollowUp Telephone Encounter [facility] Labor and Delivery [address] [place], [place] [phone] Delaney Mccray RN Social History Tobacco Use [...] y.o. Call made 09/09/2014 11:59 AM To [phone] (home) [x] No answer; unable to leave [...] filedocumented in this encounter Care Teams Manager Graphic Relationship Specialty Start Date End Date Shashi Hargrove MD [address] [place] [address] PCP - General 04/05/15 documented as of this encounter
--- NOTE | 2025-05-17 17:59 | US_ITS ---
[place] [id number] Patient Name: ROSALIE FREEMAN MRN: [id number] date: 1995 Sex: F [facility] Accession/Order Number: [id number] Exam Date: 05/17/2025 19:09 Report Date: 05/17/2025 19:13 At the request of: DEISY CARDONA DO Procedure: US OB BPP w non-stress Ultrasound biophysical profile INDICATION: GB COMPARISON: None FINDINGS/IMPRESSION: Single live intrauterine gestation with heart 132 bpm. BRISEYDA 23.28 cm Score 06/30 Impression dictated by: Weston Gonzalez M.D. 05/17/2025 7:13 PM Dictation Location: [place] [address] Electronically authenticated by: [id number] Y Date: 05/17/2025 19:13
[2025-05-17 18:26] LABS: Alanine Aminotransferase 15 U/L (14-59)
== END 2025-05-17 19:00 | disposition home or self-care (01) ==
LOC: FBC 16:27
PROVIDERS: Admitting Provider Obstetrics & Gynecology; PCP Family Medicine; Visit Provider Obstetrics & Gynecology
DX: O26.899 Other specified pregnancy related conditions, unspecified trimester (principal); R03.0 Elevated blood-pressure reading, without diagnosis of hypertension; Z3A.00 Weeks of gestation of pregnancy not specified
CPT/HCPCS: 36415; 76818; 82565; 83615; 84450; 84460; 84520; 84550; 85025; 85610; 85730; G0378; G0379

== ENCOUNTER 2025-05-19 06:56 | Outpatient (REF) | payer OTHER, SELFPAY ==
--- OUTSIDE RECORDS SUMMARY | 2025-05-19 07:00 | XMS_ITS | CCD ---
Author Organization [facility] Care Team Providers Care Taxicab Starter Name Role Phone Unavailable Primary Care Provider [...] Unavailable HOY ., DR SEWELL Admkaty Unavailable PIMENTO, DR NANDINI Stafford Consulting Unavailable HOY ., [...] NACHO, JETHRO Admitting Unavailable HOY ., DR SEEWLL Primary Care Unavailable PARIS, ELLIS Consulting Unavailable PARIS, ELLIS Attending Unavailable PARIS, ELLIS Admitting Unavailable POLI ., DR SEWELL Primary Care Unavailable Mary Grace, Taniya Unavailable Melodie Ashton Primary Care Physician MD Melodie Ashton Primary Care Provider [phone] MD Yonis Miranda Attending Provider [phone] Melodie Ashton Primary Care Unavailable NilYonis menard Attending Unavailable Ruth, Yonis Mckenzie Admitting Unavailable DANTE, GRAHAM Attending Unavailable DANTE, GRAHAM Attending Unavailable MELANY, KELLE Attending Unavailable Melodie Ashton MD Primary Care Provider [phone] Melodie Ashton MD Primary Care Provider [phone] MELODIE ASHTON Primary Care Unavailable NIC ESTEVEZ Attending Unavailable Yonis MIRANDA Attending Unavailable JANNETH SMITH Attending Unavailable EMILIANAJANNETH GUSMAN Attending Unavailable EMILIANAJANNETH GUSMAN Attending Unavailable Melodie Ashton Referring Unavailable EMILIANAJANNETH GUSMAN Attending Unavailable REMY Dieter R Admitting Unavailable REMY, Dieter R Attending Unavailable REMY, Dieter R Referring Unavailable EMILIANA, JANNETH E Admitting Unavailable EMILIANAJANNETH GUSMAN Attending Unavailable NILL, Yonis R Attending Unavailable NILL, Yonis Mckenzie Attending Unavailable Melodie Ashton Referring Unavailable Melodie Ashton MD Primary Care Provider [phone] Melodie Ashton MD Primary Care Provider [phone] MELANY, KELLE Attending Unavailable MELANY, KELLE Attending Unavailable MELANY, KELLE Referring Unavailable DANTE, GRAHAM Attending Unavailable DANTE, GRAHAM Attending Unavailable MELANY, KELLE Attending Unavailable DANTE, GRAHAM Attending Unavailable MELANY, KELLE Attending Unavailable DANTE, GRAHAM Referring Unavailable DANTE, GRAHAM Attending Unavailable MELANY, KELLE Attending Unavailable MELANY, KELLE Attending Unavailable GRAHAM HOWELL Attending Unavailable Allergies Allergy Classification Reported Allergen(s) Allergy Type Date of Onset Reaction(s) Facility (1 source) [facility]; Translations: [[facility]Other] Propensity to adverse reactions (disorder) 0 [facility] Repository (3 sources) Kerlix Super Sponge/Saline Med Drug allergy Staxxon Other (20 sources) Wound Dressings Drug Allergy 4 [facility] (1 source) No Known Medication Allergies; Translations: [No Known Medication Allergies] Propensity to adverse reactions (disorder) [facility] Repository Medications Current Medications Medication Drug Class(es) [...] completed., # 2 cap(s), Refills(s) 0, Pharmacy: [facility]/pharmacy #[id number], 180, cm, 01/19/24 9:37:00 EST, Height/Length [...] Active magnesium oxide 400 mg oral tablet (19 sources) Start: take 1 tablet by mouth once daily magnesium oxide (Mag-Ox) 400 MG tablet Indications: headache in third trimester (HHS-HCC) Take 1 tablet (400 mg) by mouth [...] Start: 09-19-2021 take 1 tablet by joesph every six hours ondansetron 4 mg Tab [...] Daily UTI prevention, 30 tab(s), Refill(s) 3, [facility]/pharmacy #[id number], 180, cm, 05/10/24 9:08:00 EDT, Height/Length Dosing, 150, kg, 05/10/24 9:08:00 EDT, Weight Dosing Start Date: 07/26/24 Status: Ordered Start: 01-19-2024 Bactrim 400 mg -80 mg Tab 1 tab(s), Oral, Daily UTI prevention, 30 tab(s), Refill(s) 3, [facility]/pharmacy #[id number], 180, cm, 01/19/24 9:37:00 EST, Height/Length [...] mg by mouth Daily 12/05/2024 Discontinued levonorgestrel 0.663230 mg/hr intrauterine system (8 sources) Progestin, Progestin-containi [...] [Chronic nonintractable headache, unspecified headache type] Episodic Hypertension complicating ; childbirth and the puerperium (4 sources) -induced hypertension; Translations: [Gestational [-induced] hypertension without significant proteinuria, unspecified trimester] 05-17-2025 Episodic Immunizations and screening for infectious disease [...] 09-20-2021 Chronic Other aftercare (1 source) Other shelter (current) drug therapy; Translations: [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] Onset: 3 Episodic Other [...] Diarrhea 03-10-2024 Episodic Other infections; including parasitic (4 sources) History of herpes zoster; Translations: [Personal history of other infectious and parasitic diseases] 03-15-2025 Episodic Other nutritional; endocrine; and metabolic disorders (8 sources) Body mass index 40+ - severely obese 09-20-2021 Chronic Other nutritional; endocrine; and metabolic disorders (5 sources) Morbid obesity 03-04-2024 Chronic Other upper respiratory disease (2 sources) Congestion of nasal sinus; Translations: [Nasal congestion] 12-27-2024 Episodic Polyhydramnios and other problems of amniotic cavity (2 sources) Polyhydramnios; Translations: [Polyhydramnios, third trimester, not applicable or unspecified] 05-17-2025 Episodic Residual codes; unclassified (2 sources) Gestation [...] [36 weeks gestation of ] 2025 Episodic Residual codes; unclassified (2 sources) Gestation period, 37 weeks; Translations: [37 weeks gestation of ] 05-17-2025 Episodic Unclassified (3 sources) CONTACT W/AND (SUSP) [...] 05-13-2022 Episodic Other and delivery including normal (20 sources) [...] WITH AUTO DIFFon BASOPHILS ABSOLUTE AUTO 0 [facility] Basophils/100 WBC (Bld) 0.1 % Low 0.2 - 2.0 % [facility] Eosinophils/100 WBC (Bld) 0.8 % Low 0.9 - 7.0 % [facility] Erythrocyte distribution width (RBC) [Ratio] 12.8 % 11.0 - 15.0 % [facility] Hematocrit (Bld) [Volume fraction] 35.2 % Low 36.0 - 48.0 % [facility] Hemoglobin (Bld) [Mass/Vol] 11.8 g/dL Low 12.0 - 16.0 g/dL [facility] IMMATURE GRANULOCYTES ABS AUTO 0.05 High [facility] Immature granulocytes/100 WBC (Bld) 0.5 % 0.0 - 0.5 % [facility] Interpretation and review of laboratory results Abnormal [facility] LYMPHOCYTES ABSOLUTE AUTO 1.5 [facility] Lymphocytes/100 WBC (Bld) 14.5 % Low 20.5 - 60.0 % [facility] MCH (RBC) [Entitic mass] 29.3 pg 26.7 - 34.0 pg [facility] MCHC (RBC) [Mass/Vol] 33.5 g/dL 29.9 - 35.2 g/dL [facility] MCV (RBC) [Entitic vol] 87.3 fL 81.0 - 99.0 fL [facility] MONOCYTES ABSOLUTE AUTO 0.7 [facility] Monocytes/100 WBC (Bld) 6.9 % 1.7 - 12.0 % [facility] NEUTROPHILS ABSOLUTE AUTO 8 High [facility] Neutrophils/100 WBC (Bld) 77.2 % High 43.0 - 75.0 % [facility] Platelet mean volume (Bld) [Entitic vol] 9.2 fL Low 9.5 - 13.5 fL [facility] TBH EO # 0.1 [facility] PLT 253 [facility] RBC 4.03 Low [facility] WBC 10.4 [facility] US OB BPP W NON-STRESS on 05-17-2025 [place] [address] Ultrasound Report Signed Patient: ROSALIE RODRÍGUEZ V MR#: [id number] : 1995 Acct:[id number] Age/Sex: 30 / F ADM Date: Loc: [facility] 250-[address]: Graham Howell D.O. Ordering Physician: Graham Howell D.O. Date of Service: 05/17/25 Procedure(s): US OB BPP w non-stress Accession Number(s): [id number] cc: Graham Howell D.O.; Melodie Ashton M.D. The [place] [id number] Patient Name: ROSALIE RODRÍGUEZ MRN: [facility]:[id number] date: 1995 Sex: F Assigned Patient Location: [facility] Current Patient Location: [facility] Accession/Order Number: [id number] Exam Date: 05/17/2025 19:09 Report Date: 05/17/2025 19:13 At the request of: GRAHAM HOWELL DO Procedure: US OB BPP w non-stress Ultrasound biophysical profile INDICATION: GB COMPARISON: None FINDINGS/IMPRESSION: Single live intrauterine gestation with heart 132 bpm. BRISEYDA 23.28 cm Score 8/8 Impression dictated by: Weston Gonzalez M.D. 05/17/2025 7:13 PM Dictation Location: [place] [address] Electronically authenticated by: [id number] Y Date: 05/17/2025 19:13 Dictated By: Weston Gonzalez M.D. Signed By: 05/17/251914 DD/ 12 TD/TT: Motor Analyst: [facility] Radiology, Radiologist, MD - 05/17/2025 [place] [address] Ultrasound Report Signed Patient: ROSALIE RODRÍGUEZ V MR#: [id number] : 1995 Acct:[id number] Age/Sex: 30 / F ADM Date: Loc: [facility] 250-[address]: Graham Howell D.O. Ordering Physician: Graham Howell D.O. Date of Service: 05/17/25 Procedure(s): US OB BPP w non-stress Accession Number(s): [id number] cc: Graham Howell D.O.; Melodie Ashton M.D. [address] [address] Patient Name: ROSALIE RODRÍGUEZ MRN: [facility]:[id number] date: 1995 Sex: F Assigned Patient Location: [facility] Current Patient Location: [facility] Accession/Order Number: [id number] Exam Date: 05/17/2025 19:09 Report Date: 05/17/2025 19:13 At the request of: GRAHAM HOWELL DO Procedure: US OB BPP w non-stress Ultrasound biophysical profile INDICATION: GB COMPARISON: None FINDINGS/IMPRESSION: Single live intrauterine gestation with heart 132 bpm. BRISEYDA 23.28 cm Score 8/8 Impression dictated by: Weston Gonzalez M.D. 05/17/2025 7:13 PM Dictation Location: [place] [address] Electronically authenticated by: [id number] Y Date: 05/17/2025 19:13 Dictated By: Weston Gonzalez M.D. Signed By: 05/17/251914 DD/ 12 TD/TT: Motor Analyst: [facility] Radiology Study observation (narrative) [facility] US OB BPP W NON-STRESS Ordered By: Radiologist Radiology on 05-17-2025 [facility] Work Phone: US OB BPP W NON-STRESS on 05-15-2025 [place] [address] Ultrasound Report Signed Patient: ROSALIE RODRÍGUEZ V MR#: [id number] : 1995 Acct:[id number] Age/Sex: 30 / F ADM Date: 05/15/25 Loc: US Attending Dr: Graham Howell D.O. Ordering Physician: Graham Howell D.O. Date of Service: 05/15/25 Procedure(s): US OB BPP w non-stress Accession Number(s): [id number] cc: Graham Howell D.O.; Melodie Ashton M.D. [place] [address] Patient Name: ROSALIE RODRÍGUEZ MRN: [facility]:[id number] date: 1995 Sex: F Assigned Patient Location: [facility] Current Patient Location: Accession/Order Number: [id number] Exam Date: 05/15/2025 18:34 Report Date: 05/15/2025 18:40 At the request of: GRAHAM HOWELL DO [...] cm consistent with polyhydramnios. Impression dictated by: Neli Dominguez M.D. 05/15/2025 6:40 PM Dictation Location: [place] [address] Electronically authenticated by: [id number] Y Date: 05/15/2025 18:40 Dictated By: Neli Dominguez M.D. Signed By: 05/15/25 1843 DD/ 39 TD/TT: Motor Analyst: [facility] Radiology, Radiologist, - 05/15/2025 [place] [address] Ultrasound Report Signed Patient: ROSALIE RODRÍGUEZ V MR#: [id number] : 1995 Acct:[id number] Age/Sex: 30 / F ADM Date: 05/15/25 Loc: US Attending Dr: Graham Howell D.O. Ordering Physician: Graham Howell D.O. Date of Service: 05/15/25 Procedure(s): US OB BPP w non-stress Accession Number(s): [id number] cc: Graham Howell D.O.; Melodie Ashton M.D. The [place] [id number] Patient Name: ROSALIE RODRÍGUEZ MRN: [facility]:[id number] date: 1995 Sex: F Assigned Patient Location: [facility] Current Patient Location: Accession/Order Number: [id number] Exam Date: 05/15/2025 18:34 Report Date: 05/15/2025 18:40 At the request of: GRAHAM HOWELL DO [...] cm consistent with polyhydramnios. Impression dictated by: Neli Dominguez M.D. 05/15/2025 6:40 PM Dictation Location: [place] [address] Electronically authenticated by: [id number] Y Date: 05/15/2025 18:40 Dictated By: Neli Dominguez M.D. Signed By: 05/15/251842 DD/ 39 TD/TT: Motor Analyst: [facility] Radiology Study observation (narrative) [facility] US OB BPP W NON-STRESS Ordered By: Radiologist Radiology on 05-15-2025 [facility] Work Phone: Urinalysis macro (dipstick) panel (U)on 2025 Bilirubin, UA Positive Negative - 4(70) +++ mg/dL [facility] Comment on above: small Blood, UA Negative Negative - 50 Issac/mcL [facility] Clarity, UA Cloudy [facility] re Color, UA Jolie [facility] Glucose, UA Negative Negative - 2000(110) ++++ mg/dL [facility] Interpretation and review of laboratory results Abnormal [facility] Ketones, UA Positive Negative - 160(16) ++++ mg/dL [facility] Comment on above: 15 Leukocytes, UA Positive Negative - 500+++ Christo/mcL [facility] Comment on above: small Nitrite, UA Negative Negative - Positive [facility] pH, UA 5.5 5 - 9 [facility] e Protein, UA Positive Negative - 2000(20) ++++ mg/dL [facility] Comment on above: 30 Spec Grav, UA 1.03 1 - 1.03 [facility] Urobilinogen, UA 0.2 0.2 - 12 mg/dL [facility] US OB BPP W NON-STRESS on 05-08-2025 [place] [address] Ultrasound Report Signed Patient: ROSALIE RODRÍGUEZ V MR#: [id number] : 1995 Acct:[id number] Age/Sex: 29 / F ADM Date: 05/08/25 Loc: US Attending Dr: Graham Howell D.O. Ordering Physician: Graham Howell D.O. Date of Service: 05/08/25 Procedure(s): US OB BPP w non-stress Accession Number(s): [id number] cc: Graham Howell D.O.; Melodie Ashton M.D. The [address] [address] Patient Name: ROSALIE RODRÍGUEZ MRN: [facility]:[id number] date: 1995 Sex: F Assigned Patient Location: [facility] Current Patient Location: Accession/Order Number: [id number] Exam Date: 05/08/2025 21:48 Report Date: 05/08/2025 [...] Graham M.D. 05/08/2025 9:49 PM Dictation Location: [place] [address] Electronically authenticated by: [id number] Y Date: 05/08/2025 21:49 Dictated By: Daniel Graham D.O. Signed By: 05/08/252151 DD/ 48 TD/TT: Motor Analyst: [facility] Radiology, Radiologist, MD - 05/08/2025 The [place] [id number] Ultrasound Report Signed Patient: ROSALIE RODRÍGUEZ V MR#: [id number] : 1995 Acct:[id number] Age/Sex: 29 / F ADM Date: 05/08/25 Loc: US Attending Dr: Graham Howell D.O. Ordering Physician: Graham Howell D.O. Date of Service: 05/08/25 Procedure(s): US OB BPP w non-stress Accession Number(s): [id number] cc: Graham Howell D.O.; Melodie Ashton M.D. [place] [id number] Patient Name: ROSALIE RODRÍGUEZ MRN: [id number]:[id number] date: 1995 Sex: F Assigned Patient Location: [facility] Current Patient Location: Accession/Order Number: [id number] Exam Date: 05/08/2025 21:48 Report Date: 05/08/2025 [...] Graham M.D. 05/08/2025 9:49 PM [facility]ictation [facility] Electron[facility] authenticated by: [id number] Y Date: 05/08/2025 21:49 Dictated By: Daniel Graham D.O. Signed By: 05/08/252151 DD/ 48 TD/TT: Motor Analyst: [facility] Radiology Study observation (narrative) [facility] OB BPP W NON-STRESS Ordered By: Radiologist Radiology on 05-08-2025 [facility] Work Phone: US OB FOLLOW UP TRANSABDOMIN [...] 2. Polyhydramnios. Interpreted by: Electronically signed by ATTO AMAYA II, MD, PHD at 28-Apr-2025 08:26:54 AM [facility] Normal Not Available Comment on above: Order Comment: US OB SCAN FOR GROWTH Estimated Date of Delivery: 06/05/25 Gestational Age as of 04/12/2025: 32w2d Urinalysis macro (dipstick) panel (U)on 04-27-2025 Bilirubin, UA Positive Negative - 4(70) +++ mg/dL [facility] Comment on above: small Blood, UA Negative Negative - 50 Issac/mcL [facility] Clarity, UA Clear [facility] Color, UA Yellow [facility] Glucose, UA Negative Negative - 1999(110) ++++ mg/dL [facility] Interpretation and review of laboratory results Abnormal [facility] Ketones, UA Positive Negative - 160(16) ++++ mg/dL [facility] Comment on above: Trace Leukocytes, UA Trace Negative - 500+++ Christo/[facility] Nitrite, UA Negative Negative - Positive [facility] pH, UA 6 5 - 9 [facility] Protein, UA Positive Negative - 1999(20) ++++ mg/dL [facility] Comment on above: 30mg/dL Spec Grav, UA 1.025 1 - 1.03 [facility] Urobilinogen, UA 0.2 0.2 - 12 mg/dL [facility] TB[facility] UA (CLEAN/CATCH) BINDERY TECHNICIAN/LORENZO RO IF IND.on 04-25-2025 BILIRUBIN URINE Negative NEGATIVE [facility] thcare BLOOD URINE Negative NEGATIVE [facility] Clarity (U) CLEAR CLEAR [facility] Color (U) LT. YELLOW YELLOW [facility] GLUCOSE URINE UA Negative NEGATIVE mg/dL [facility] Interpretation and review of laboratory results Abnormal [facility] Ketones Ql (U) Negative NEGATIVE mg/dL [facility] Leukocyte esterase Test strip Ql (U) MODERATE Abnormal NEGATIVE [facility] NITRITE URINE Negative NEGATIVE [facility] Health care pH (U) 7.5 [pH] 5.0 - 9.0 [facility] Protein (U) [Mass/Vol] 30 mg/dL Abnormal NEG/TRACE [facility] SPECIFIC GRAVITY URINE 1.020 1.005 - 1.025 [facility] URINE MICROSCOPIC INDICATED YES [facility] UROBILINOGEN URINE 1.0 EU/dL 0.2 - 1.0 EU/dL [facility] Urinalysis macro (dipstick) panel (U)on 04-12-2025 Bilirubin, UA Negative Negative - 4(70) +++ mg/dL [facility] Blood, UA Negative Negative - 50 Issac/mcL [facility] Clarity, UA Clear [facility] Color, UA Yellow [facility] Glucose, UA Negative Negative - 1999(110) ++++ mg/dL [facility] Interpretation and review of laboratory results Abnormal [facility] Ketones, UA Positive Negative - 160(16) ++++ mg/dL [facility] Comment on above: Trace Leukocytes, UA Trace Negative - 500+++ Christo/mcL [facility] Nitrite, UA Negative Negative - Positive [facility] pH, UA 6 5 - 9 [facility] Protein, UA Positive Negative - 1999(20) ++++ mg/dL [facility] Comment on above: 30mg/dL Spec Grav, UA 1.01 1 - 1.03 [facility] Urobilinogen, UA 1.0 0.2 - 12 mg/dL [facility] Urinalysis macro (dipstick) panel (U)on 03-29-2025 Bilirubin, UA Positive Negative - 4(70) +++ mg/dL [facility] Comment on above: small Blood, UA Negative Negative - 50 Issac/mcL [facility] Clarity, UA Clear [facility] Color, UA Yellow [facility] Glucose, UA Negative Negative - 1999(110) ++++ mg/dL [facility] Interpretation and review of laboratory results Abnormal [facility] Ketones, UA Positive Negative - 160(16) ++++ mg/dL [facility] Comment on above: Trace Leukocytes, UA Trace Negative - 500+++ Christo/mcL [facility] Nitrite, UA Negative Negative - Positive [facility] pH, UA 6.5 5 - 9 [facility] Protein, UA Positive Negative - 1999(20) ++++ mg/dL [facility] Comment on above: 30mg/dL Spec Grav, UA 1.03 1 - 1.03 [facility] Urobilinogen, UA 0.2 0.2 - 12 mg/dL [facility] Urinalysis macro (dipstick) panel (U)on 03-15-2025 Bilirubin, UA Positive Negative - (70) +++ mg/dL [facility] Comment on above: small Blood, UA Negative Negative - 50 Issac/mcL [facility] Clarity, UA Clear [facility] Healthca re Color, UA Yellow [facility] Glucose, UA Negative Negative - 1999(110) ++++ mg/dL [facility] Interpretation and review of laboratory results Abnormal [facility] re Ketones, UA Positive Negative - 160(16) ++++ mg/dL [facility] Comment on above: 40mg/dL Leukocytes, UA Trace Negative - 500+++ Christo/mcL [facility] Nitrite, UA Negative Negative - Positive [facility] pH, UA 5.5 5 - 9 [facility] Protein, UA Positive Negative - 1999(20) ++++ mg/dL [facility] Comment on above: 30mg/dL Spec Grav, UA 1.03 1 - 1.03 [facility] Urobilinogen, UA 0.2 0.2 - 12 mg/dL [facility] ALL CBC WITH AUTO DIFFon BASOPHILS ABSOLUTE AUTO 0 [facility] Basophils/100 WBC (Bld) 0.3 % 0.2 - 2.0 % [facility] Eosinophils/100 WBC (Bld) 0.7 % Low 0.9 - 7.0 % [facility] Erythrocyte distribution width (RBC) [Ratio] 12.6 % 11.0 - 15.0 % [facility] Hematocrit (Bld) [Volume fraction] 35.7 % Low 36.0 - 48.0 % [facility] Hemoglobin (Bld) [Mass/Vol] 12.1 g/dL 12.0 - 16.0 g/dL [facility] IMMATURE GRANULOCYTES ABS AUTO 0.06 High [facility] Immature granulocytes/100 WBC (Bld) 0.6 % High 0.0 - 0.5 % [facility] Interpretation and review of laboratory results Abnormal [facility] LYMPHOCYTES ABSOLUTE AUTO 1.2 [facility] Lymphocytes/100 WBC (Bld) 11.3 % Low 20.5 - 60.0 % [facility] MCH (RBC) [Entitic mass] 30.6 pg 26.7 - 34.0 pg [facility] MCHC (RBC) [Mass/Vol] 33.9 g/dL 29.9 - 35.2 g/dL [facility] MCV (RBC) [Entitic vol] 90.2 fL 81.0 - 99.0 fL [facility] MONOCYTES ABSOLUTE AUTO 0.6 [facility] Monocytes/100 WBC (Bld) 5.4 % 1.7 - 12.0 % [facility] NEUTROPHILS ABSOLUTE AUTO 8.5 High [facility] Neutrophils/100 WBC (Bld) 81.7 % High 43.0 - 75.0 % [facility] Platelet mean volume (Bld) [Entitic vol] 8.9 fL Low 9.5 - 13.5 fL [facility] TBH EO # 0.1 [facility] e TB PLT 242 [facility] e TB RBC 3.96 Low [facility] e TB WBC 10.4 [facility] US OB 14+ WEEKS ANATOMY [...] at 24-Jan-2025 09:25:38 AM [facility] Normal Not Available Comment on above: Order Comment: US OB ANATOMY SINGLE W US OB CERVICAL LENGTH Estimated Date of Delivery: 06/05/25 Gestational Age as of 12/27/2024: 17w1d Urinalysis macro (dipstick) panel (U)on 01-04-2025 Bilirubin, UA Positive Negative - 4(70) +++ mg/dL [facility] Comment on above: small Blood, UA Negative Negative - 50 Issac/mcL [facility] Clarity, UA Clear [facility] Color, UA Yellow [facility] Glucose, UA Negative Negative - 2000(110) ++++ mg/dL [facility] Interpretation and review of laboratory results Abnormal [facility] Ketones, UA Positive Negative - 160(16) ++++ mg/dL [facility] Comment on above: trace Leukocytes, UA Positive Negative - 500+++ Christo/mcL [facility] Comment on above: small Nitrite, UA Negative Negative - Positive [facility] pH, UA 5.5 5 - 9 [facility] Protein, UA Positive Negative - 2000(20) ++++ mg/dL [facility] Comment on above: 30mg/dL Spec Grav, UA 1.03 1 - 1.03 [facility] Urobilinogen, UA 0.2 0.2 - 12 mg/dL [facility] IGP,APTIMA HPV,AGE GDLNon AGE GDLN ACOG TESTING Note . [facility] Comment on above: TESTS RESULT FLAG UN ITS REF RANGE LAB Clinician Provided Cytology Information Source.............Cervix Other.............. No. of containers..01 ThinPrep Vial Age Algo ACOG Soraida... 30-65 01 FLAG LEGEND: L-Low Normal,H-High Normal,LL-Alert Low,HH-Alert High <-Panic Low,>-Panic High,A-Abnormal,AA-Critical Abnormal Performed at: 01 =G [facility] [place] [address] Haily Cook MD, HPV APTIMA Negative Negative [facility] Comment on above: This nucleic acid am plification test detects fourteen high- risk HPV types (16,18,31,33,35,39,45,51,52,56,58,59,66,68) without differentiation. Performed at: =G - [facility] [id number] Shipfitter Apprentice: Haily Cook MD, Phone: [phone] Performed at: - [facility] [id number] Shipfitter Apprentice: Haily Cook MD, Phone: [phone] IGP, APTIMA HPV, RFX 16/18,45 Note . [facility] Comment on above: TESTS RESULT FLAG UN ITS REF RANGE LAB DIAGNOSIS: 02 NEGATIVE FOR INTRAEPITHELIAL LESION OR MALIGNANCY. Specimen adequacy: 02 Satisfactory for evaluation. No endocervical component is identified. Performed by: 02 Janneth Guerrero, Quality Rep (ASCP) . 02 Note: Note 02 The [...] <-Panic Low,>-Panic High,A-Abnormal,AA-Critical Abnormal Performed at: [address] [address] Haily Cook MD, [facility] Urinalysis macro (dipstick) panel (U)on 12-27-2024 Bilirubin, UA Negative Negative - 4(70) +++ mg/dL [facility] Blood, UA Negative Negative - 50 Issac/mcL [facility] Clarity, UA Clear [facility] Color, UA Yellow [facility] Glucose, UA Negative Negative - 1999(110) ++++ mg/dL [facility] Interpretation and review of laboratory results Abnormal [facility] Ketones, UA Negative Negative - 160(16) ++++ mg/dL [facility] Leukocytes, UA Positive Negative - 500+++ Christo/mcL [facility] Comment on above: small Nitrite, UA Negative Negative - Positive [facility] pH, UA 6 5 - 9 [facility] Protein, UA Trace Negative - 1999(20) ++++ mg/dL [facility] Spec Grav, UA 1.03 1 - 1.03 [facility] Urobilinogen, UA 0.2 0.2 - 12 mg/dL [facility] B[facility] TESTon 12-23-2024 BOX TEST SENT OUT [facility] BOX1 [facility] BOX2 12/23/24 [facility] [...] a no show a second time. Normal [facility] Urinalysis macro (dipstick) panel (U)on 12-05-2024 Bilirubin, UA Negative Negative - 4(70) +++ mg/dL [facility] Blood, UA Negative Negative - 50 Issac/mcL [facility] Clarity, UA Clear [facility] Color, UA Yellow [facility] Glucose, UA Negative Negative - 1999(110) ++++ mg/dL [facility] Interpretation and review of laboratory results Abnormal [facility] Ketones, UA Negative Negative - 160(16) ++++ mg/dL [facility] Leukocytes, UA Positive Negative - 500+++ Christo/mcL [facility] Comment on above: small Nitrite, UA Negative Negative - Positive [facility] pH, UA 6.5 5 - 9 [facility] Protein, UA Trace Negative - 1999(20) ++++ mg/dL [facility] Spec Grav, UA 1.025 1 - 1.03 [facility] Urobilinogen, UA 0.2 0.2 - 12 mg/dL [facility] Basic Metabolic Panelon 11-23 Est, Glom Filt Rate - PINF [facility] Comment on above: These results are [...] and review of laboratory results Abnormal [facility] Urea nitrogen/Creatinine [Mass ratio] 12 mg/mg - [facility] Basic Metabolic Profon 12-02 Anion gap [Moles/Vol] 11 mmol/L Normal - [facility] Comment on above: Performed By: #### B MP, LIVP, MG, CDP, LIP #### [facility] [address] [place] [address] Shipfitter Apprentice: Nandini Acevedo MD BUN/CRE Ratio 12 Normal 9-[address] [facility] Comment on above: Performed By: #### B MP, LIVP, MG, CDP, LIP #### [facility] [address] [place] [address] Shipfitter Apprentice: Nandini Acevedo MD Calcium [Mass/Vol] 9.3 mg/dL Normal 8.6-10.4 [facility] Comment on above: Performed By: #### B MP, LIVP, MG, CDP, LIP #### [facility] [address] [place] [address] Shipfitter Apprentice: Nandini Acevedo MD Chloride [Moles/Vol] 102 mmol/L Normal 98-107 [facility] Comment on above: Performed By: #### B MP, LIVP, MG, CDP, LIP #### [address] [place] [address] Shipfitter Apprentice: Nandini Acevedo MD CO2 [Moles/Vol] 24 mmol/L Normal 20-31 [facility] Comment on above: Performed By: #### B MP, LIVP, MG, CDP, LIP #### [address] [place] [address] Shipfitter Apprentice: Nandini Acevedo MD Creatinine [Mass/Vol] 0.5 mg/dL Normal 0.50-0.90 [facility] Comment on above: Performed By: #### B MP, LIVP, MG, CDP, LIP #### [address] [place] [address] Shipfitter Apprentice: Nandini Acevedo MD GFR/1.73 sq M.predicted among non-blacks MDRD (S/P/Bld) [Vol rate/Area] mL/min/{1.73_m2} Normal >60 [facility] Comment on above: Result Comment: These results [...] B MP, LIVP, MG, CDP, LIP #### [address] [place], [place] [id number] Shipfitter Apprentice: Nandini Acevedo MD Glucose [Mass/Vol] 88 mg/dL Normal 74-99 [facility] Comment on above: Performed By: #### B MP, LIVP, MG, CDP, LIP #### [address] [place] [address] Shipfitter Apprentice: Nandini Acevedo MD Potassium [Moles/Vol] 3.6 mmol/L Low 3.7-5.3 [facility] Comment on above: Performed By: #### B MP, LIVP, MG, CDP, LIP #### [address] [place] [address] Shipfitter Apprentice: Nandini Acevedo MD Sodium [Moles/Vol] 137 mmol/L Normal 136-145 [facility] Comment on above: Performed By: #### B MP, LIVP, MG, CDP, LIP #### [address] [place] [address] Shipfitter Apprentice: Nandini Acevedo MD Urea nitrogen [Mass/Vol] 6 mg/dL Normal 6-20 [facility] Comment on above: Performed By: #### B MP, LIVP, MG, CDP, LIP #### [address] [place] [address] Shipfitter Apprentice: Nandini Acevedo MD CBC with Auto Differentialon 12-02-2024 Basophils (Bld) [#/Vol] 0.04 10*3/uL [facility] Basophils/100 WBC (Bld) 0 % 0 - 2 % [facility] Eosinophils (Bld) [#/Vol] 0.06 10*3/uL [facility] Eosinophils/100 WBC (Bld) 0 % Low 1 - 4 % [facility] Erythrocyte distribution width (RBC) [Ratio] 12.0 % 11.8 - 14.4 % [facility] Hematocrit (Bld) [Volume fraction] 38.6 % 36.3 - 47.1 % [facility] Hemoglobin (Bld) [Mass/Vol] 13.3 g/dL 11.9 - 15.1 g/dL [facility] Immature granulocytes (Bld) [#/Vol] 0.05 10*3/uL [facility] Immature granulocytes/100 WBC (Bld) 0 % 0 [facility] Interpretation and review of laboratory results Abnormal [facility] Lymphocytes/100 WBC (Bld) 9 % Low 24 - 43 % [facility] Lymphocytes/100 WBC (Bld) 1.26 % [facility] MCH (RBC) [Entitic mass] 30.6 pg 25.2 - 33.5 pg [facility] MCHC (RBC) [Mass/Vol] 34.5 g/dL 28.4 - 34.8 g/dL [facility] MCV (RBC) [Entitic vol] 88.7 fL 82.6 - 102.9 fL [facility] Monocytes/100 WBC (Bld) 6 % 3 - 12 % [facility] Monocytes/100 WBC (Bld) 0.88 % [facility] Neutrophils/100 WBC (Bld) 85 % High 36 - 65 % [facility] Nucleated RBC/100 WBC (Bld) [Ratio] 0.0 % 0.0 per 100 WBC [facility] Platelet mean volume (Bld) [Entitic vol] 9.2 fL 8.1 - 13.5 fL [facility] Platelets (Bld) [#/Vol] 267 10*3/uL [facility] RBC (Bld) [#/Vol] 4.35 10*6/uL 3.95 - 5.1 1 m/uL [facility] Segmented neutrophils/100 WBC (Bld) 12.17 % High [facility] WBC other (Bld) [#/Vol] 14.5 High [facility] CBC with Diffon 12-02-2024 Abs. Basophil 0.04 k/uL Normal 0.00-0.[address] [facility] Comment on above: Performed By: #### B MP, LIVP, MG, CDP, LIP #### [facility] [address] [place] [address] [place], [place] [phone] Shipfitter Apprentice: Nandini Acevedo MD Abs.Imm.Granulocyte 0.05 k/uL Normal 0.00-0.30 [facility] Comment on above: Performed By: #### B MP, LIVP, MG, CDP, LIP #### [address] [place], [place] [id number] Shipfitter Apprentice: Nandini Acevedo MD Abs.Neutrophil (Seg) 12.17 k/uL High 1.50-8.10 [facility] Comment on above: Performed By: #### B MP, LIVP, MG, CDP, LIP #### [address] [place], [place] [phone] Shipfitter Apprentice: Nandini Acevedo MD Basophils/100 WBC (Bld) 0 % Normal 0-2 [facility] Comment on above: Performed By: #### B MP, LIVP, MG, CDP, LIP #### [address] [place], [place] [phone] Shipfitter Apprentice: Nandini Acevedo MD Eosinophils (Bld) [#/Vol] 0.06 10*3/uL Normal 0.00-0.44 [facility] Comment on above: Performed By: #### B MP, LIVP, MG, CDP, LIP #### [address] [place], [place] [phone] Shipfitter Apprentice: Nandini Acevedo MD Eosinophils/100 WBC (Bld) 0 % Low 1-4 [facility] Comment on above: Performed By: #### B MP, LIVP, MG, CDP, LIP #### [address] [place], [facility]83 Shipfitter Apprentice: Nandini Acevedo MD Erythrocyte distribution width (RBC) [Ratio] 12.0 % Normal 11.8-14.4 [facility] Comment on above: Performed By: #### B MP, LIVP, MG, CDP, LIP #### [address] [place] [id number] Shipfitter Apprentice: Nandini Acevedo MD Hematocrit (Bld) [Volume fraction] 38.6 % Normal 36.3-47.1 [facility] Comment on above: Performed By: #### B MP, LIVP, MG, CDP, LIP #### [address] [place] [id number] Shipfitter Apprentice: Nandini Acevedo MD Hemoglobin (Bld) [Mass/Vol] 13.3 g/dL Normal 11.9-15.1 [facility] Comment on above: Performed By: #### B MP, LIVP, MG, CDP, LIP #### [address] [place] [address] Shipfitter Apprentice: Nandini Acevedo MD Immature granulocytes/100 WBC (Bld) 0 % Normal 0 [facility] Comment on above: Performed By: #### B MP, LIVP, MG, CDP, LIP #### [address] [place], [place] [address] Shipfitter Apprentice: Nandini Acevedo MD Lymphocytes (Bld) [#/Vol] 1.26 10*3/uL Normal 1.10-3.70 [facility] Comment on above: Performed By: #### B MP, LIVP, MG, CDP, LIP #### [address] [place] [id number] Shipfitter Apprentice: Nandini Acevedo MD Lymphocytes/100 WBC (Bld) 9 % Low 24-43 [facility] Comment on above: Performed By: #### B MP, LIVP, MG, CDP, LIP #### [facility] [address] [place], [facility]83 Shipfitter Apprentice: Nandini Acevedo MD MCH (RBC) [Entitic mass] 30.6 pg Normal 25.2-33.5 [facility] Comment on above: Performed By: #### B MP, LIVP, MG, CDP, LIP #### [facility] [address] [place], [facility]83 Shipfitter Apprentice: Nandini Acevedo MD MCHC (RBC) [Mass/Vol] 34.5 g/dL Normal 28.4-34.8 [facility] Comment on above: Performed By: #### B MP, LIVP, MG, CDP, LIP #### [address] [place], [facility]83 Shipfitter Apprentice: Nandini Acevedo MD MCV (RBC) [Entitic vol] 88.7 fL Normal 82.6-102.9 [facility] Comment on above: Performed By: #### B MP, LIVP, MG, CDP, LIP #### [address] [place], [facility]83 Shipfitter Apprentice: Nandini Acevedo MD Monocytes (Bld) [#/Vol] 0.88 10*3/uL Normal 0.10-1.20 [facility] Comment on above: Performed By: #### B MP, LIVP, MG, CDP, LIP #### [facility] [address] [place], [facility]83 Shipfitter Apprentice: Nandini Acevedo MD Monocytes/100 WBC (Bld) 6 % Normal 3-12 [facility] Comment on above: Performed By: #### B MP, LIVP, MG, CDP, LIP #### [facility] [address] [place] [address] Shipfitter Apprentice: Nandini Acevedo MD Neutrophil (Seg) 85 % High 36-65 [facility] Comment on above: Performed By: #### B MP, LIVP, MG, CDP, LIP #### [address] [place], [place] [phone] Shipfitter Apprentice: Nandini Acevedo MD NRBC Automated 0.0 per 100 WBC Normal 0.0 [facility] Comment on above: Performed By: #### B MP, LIVP, MG, CDP, LIP #### [address] [place], [place] [phone] Shipfitter Apprentice: Nandini Acevedo MD Platelet mean volume (Bld) [Entitic vol] 9.2 fL Normal 8.1-13.5 [facility] Comment on above: Performed By: #### B MP, LIVP, MG, CDP, LIP #### [address] [place], [facility]83 Shipfitter Apprentice: Nandini Acevedo MD Platelets (Bld) [#/Vol] 267 10*3/uL Normal 138-453 [facility] Comment on above: Performed By: #### B MP, LIVP, MG, CDP, LIP #### [address] [place], [place] [id number] Shipfitter Apprentice: Nandini Acevedo MD RBC (Bld) [#/Vol] 4.35 10*6/uL Normal 3.95-5.11 [facility] Comment on above: Performed By: #### B MP, LIVP, MG, CDP, LIP #### [address] [place], [place] [phone] Shipfitter Apprentice: Nandini Acevedo MD WBC (Bld) [#/Vol] 14.5 10*3/uL High 3.5-11.3 [facility] Comment on above: Performed By: #### B MP, LIVP, MG, CDP, LIP #### [address] [place] [address] Shipfitter Apprentice: Nandini Acevedo MD Hepatic Function Panelon Albumin/Globulin [Mass ratio] 1.4 {ratio} 1.0 - 2.5 [facility] ALP [Catalytic activity/Vol] 61 U/L 35 - 104 U/L [facility] Bilirubin.direct [Mass/Vol] mg/dL 0.00 - 0.30 mg/dL [facility] Bilirubin.indirect [Mass/Vol] Can not be calculated 0.0 - 1.0 mg/dL [facility] Lipaseon 12-02-2024 Lipase [Catalytic activity/Vol] 34 U/L Normal 13-60 [facility] Comment on above: Performed By: #### B MP, LIVP, MG, CDP, LIP #### [address] [place] [address] Shipfitter Apprentice: Nandini Acevedo MD Liver Profileon 12-02-2024 Albumin [Mass/Vol] 3.9 g/dL Normal 3.5-5.2 [facility] Comment on above: Performed By: #### B MP, LIVP, MG, CDP, LIP #### [address] [place] [address] Shipfitter Apprentice: Nandini Acevedo MD Albumin/Glob Ratio 1.4 Normal 1.0-2.5 [facility] Comment on above: Performed By: #### B MP, LIVP, MG, CDP, LIP #### [address] [place] [address] Shipfitter Apprentice: Nandini Acevedo MD Alkaline Phos 61 U/L Normal 35-[address] [facility] Comment on above: Performed By: #### B MP, LIVP, MG, CDP, LIP #### [address] [place] [address] Shipfitter Apprentice: Nandini Acevedo MD ALT [Catalytic activity/Vol] 14 U/L Normal 10-35 [facility] Comment on above: Performed By: #### B MP, LIVP, MG, CDP, LIP #### [address] [place], [place] [phone] Shipfitter Apprentice: Nandini Acevedo MD AST [Catalytic activity/Vol] 14 U/L Normal 10-35 [facility] Comment on above: Performed By: #### B MP, LIVP, MG, CDP, LIP #### [address] [place], [place] [address] Shipfitter Apprentice: Nanidni Acevedo MD Bilirubin [Mass/Vol] mg/dL Normal 0.00-1.20 [facility] Comment on above: Performed By: #### B MP, LIVP, MG, CDP, LIP #### [address] [place], [facility]83 Shipfitter Apprentice: Nandini Acevedo MD Bilirubin, Indirect Can not be calculated Normal 0.0-1 .0 [facility] Comment on above: Performed By: #### B MP, LIVP, MG, CDP, LIP #### [address] [place], [place] [id number] Shipfitter Apprentice: Nandini Acevedo MD Bilirubin.indirect [Mass/Vol] mg/dL Normal 0.00-0.30 [facility] Comment on above: Performed By: #### B MP, LIVP, MG, CDP, LIP #### [address] [place], [place] [address]83 Shipfitter Apprentice: Nandini Acevedo MD Protein [Mass/Vol] 6.7 g/dL Normal 6.6-8.7 [facility] Comment on above: Performed By: #### B MP, LIVP, MG, CDP, LIP #### [address] [place] [address] Shipfitter Apprentice: Nandini Acevedo MD Magnesiumon 12-02-2024 Magnesium [Mass/Vol] 1.7 mg/dL Normal 1.6-2.6 [facility] Comment on above: Performed By: #### B MP, LIVP, MG, CDP, LIP #### [facility] [address] [place] [address] Shipfitter Apprentice: Nandini Acevedo MD Microscopic Urinalysison Amorphous sediment LM Ql (Urine sed) 2+ Abnormal None [facility] Epithelial cells LM.HPF (Urine sed) [#/Area] 0 TO 2 [facility] Interpretation and review of laboratory results Abnormal [facility] RBC LM.HPF (Urine sed) [#/Area] 0 TO 2 [facility] WBC LM.HPF (Urine sed) [#/Area] 2 TO 5 [facility] No Panel Informationon 12-02 [facility] US OB LESS THAN 14 WEEKS [...] seen given later gestation Embryo(<11wk) /Fetus(>=11wk): Single Iaeger Rump Length: 7.9 cm Rate of Cardiac [...] Keyur Benavides MD 12/02/24 Final result Normal [facility] Intrauterine with embryonic/ cardiac activity. Estimated gestational age by current ultrasound is 14 weeks 0 days. [facility] EXAMINATION: FIRST TRIMESTER OBSTETRIC ULTRASOUND 12/02/2024 [...] seen given later gestation Embryo(<11wk) /Fetus(>=11wk): Single Iaeger Rump Length: 7.9 cm Rate of Cardiac Activity 160 Right ovary: 3.2 x 2.2 x 2.3 cm Left ovary: Surgically absent Free fluid: Measurements: Estimated gestational age by current ultrasound: 14 weeks 0 days Estimated gestational age by LMP/prior ultrasound: 13 weeks 4 days Estimated Due Date: 06/02/2025 by today's ultrasound [facility] Keyur Benavides MD - 12/02/2024 EXAMINATION: [...] seen given later gestation Embryo(<11wk) /Fetus(>=11wk): Single Iaeger Rump Length: 7.9 cm Rate of Cardiac [...] current ultrasound is 14 weeks 0 days. [facility] Radiology Study observation (narrative) [facility] US OB LESS THAN 14 WEEKS SIN GLE OR FIRST GESTATION W DOPPLEROrdered By: Keyur Benavides on 12-02-2024 [facility] Work Phone: Urinalysison 12-02-2024 Bilirubin Ql (U) Negative NEGATIVE [facility] Seco urs [facility] Clarity (U) Clear Clear [facility] Color (U) Yellow Yellow [facility] Glucose Test strip (U) [Mass/Vol] Negative NEGATIVE mg/dL [facility] Hemoglobin Auto test strip Ql (U) Negative NEGATIVE [facility] Interpretation and review of laboratory results Abnormal [facility] Ketones (U) [Mass/Vol] Negative NEGATIVE mg/dL [facility] Leukocyte esterase Test strip Ql (U) MODERATE Abnormal NEGATIVE [facility] Nitrite Ql (U) Negative NEGATIVE [facility] pH (U) 7.5 [pH] 5.0 - 9.0 [facility] Protein (U) [Mass/Vol] Negative NEGATIVE mg/dL [facility] Specific gravity (U) [Rel density] 1.025 High 1.010 - 1.020 [facility] Urobilinogen Qn (U) Normal 0.0 - 1. 0 EU/dL [facility] Urinalysis, Routineon 2024 Bilirubin, SemiQt,Ur Negative Normal NEG [facility] Comment on above: Performed By: #### U KELLI Bazzi #### [facility] [address] [place] [address] Shipfitter Apprentice: Nandini Acevedo MD Blood, Urine Negative Normal NEG [facility] Comment on above: Performed By: #### U KELLI Bazzi #### [facility] [address] [place] [address] Shipfitter Apprentice: Nandini Acevedo MD Clarity (U) Clear Normal CLEAR [facility] Comment on above: Performed By: #### U KELLI Bazzi #### [facility] [address] [place], [place] [phone] Shipfitter Apprentice: Nandini Acevedo MD Color (U) Yellow Normal YEL [facility] Comment on above: Performed By: #### U A, UMICAO #### [facility] [address] [place] [address] Shipfitter Apprentice: Nandini Acevedo MD Glucose Ql (U) Negative Normal NEG [facility] in Hospital Comment on above: Performed By: #### U A, UMICAO #### [facility] [address] [place] [address] [place] [address] Shipfitter Apprentice: Nandini Acevedo MD Ketones Ql (U) Negative Normal NEG [facility] in Hospital Comment on above: Performed By: #### U A, UMICAO #### [facility] [address] [place] [address] [place] [address] Shipfitter Apprentice: Nandini Acevedo MD Leukocyte esterase Test strip Ql (U) MODERATE Abnormal NEG [facility] Comment on above: Performed By: #### U A, UMICAO #### [facility] [address] [place] [address] [place], [place] [phone] Shipfitter Apprentice: Nandini Acevedo MD Nitrite,Ur Negative Normal [facility] Comment on above: Performed By: #### U A, UMICAO #### [facility] [address] [place] [address] [place] [address] Shipfitter Apprentice: Nandini Acevedo MD PH,Ur 7.5 Normal 5.0-9.0 [facility] Comment on above: Performed By: #### U A, UMICAO #### [facility] [address] [place] [address] [place] [address] Shipfitter Apprentice: Nandini Acevedo MD Protein Ql (U) Negative Normal NEG [facility] in Hospital Comment on above: Performed By: #### U A, UMICAO #### [facility] [address] [place], [place] [phone] Shipfitter Apprentice: Nandini Acevedo MD Spec. [place],Ur 1.025 High 1.010-1.020 [facility] Comment on above: Performed By: #### U A, UMICAO #### [facility] [address] [place] [address] [place] [address] Shipfitter Apprentice: Nandini Acevedo MD Urobilinogen,Ur Normal Normal 0.0-1.0 [facility] Comment on above: Performed By: #### U A, ORALIAICAO #### [facility] [address] [place] [address] [place] [address] Shipfitter Apprentice: Nandini Acevedo MD Urinalysis,Microon 5 Amorphous sediment LM Ql (Urine sed) 2+ Abnormal NONE [facility] Comment on above: Performed By: #### U A, ORALIAICAO #### [facility] [address] [place] [address] [place], [place] [phone] Shipfitter Apprentice: Nandini Acevedo MD Epithelial cells LM Ql (Urine sed) 0 TO 2 Normal 0-25 [facility] Comment on above: Performed By: #### U A, YOLANDAO #### [facility] [address] [place] [address] [place], [place] [phone] Shipfitter Apprentice: Nandini Acevedo MD Urine RBC's 0 TO 2 Normal 0-2 [facility] Comment on above: Performed By: #### U A, ORALIAICAO #### [facility] [address] [place] [address] [place], [place] [id number] Shipfitter Apprentice: Nandini Acevedo MD Urine WBC's 2 TO 5 Normal 0-5 [facility] Comment on above: Performed By: #### U A, UMICAO #### [facility] [address] [place] [address] [place] [address] Shipfitter Apprentice: Nandini Acevedo MD HCG ( test) Ql (U)o n 11-03-2024 Interpretation and review of laboratory results Abnormal [facility] P[facility] Test, Ur Positive Negative [facility] Urinalysis macro (dipstick) panel (U)on 11-03-2024 Bilirubin, UA Negative Negative - (70) +++ mg/dL [facility] Blood, UA Negative Negative - 50 Issac/mcL [facility] Clarity, UA Clear [facility] re Color, UA Yellow [facility] Glucose, UA Negative Negative - 1999(110) ++++ mg/dL [facility] Interpretation and review of laboratory results Normal [facility] Ketones, UA Negative Negative - 160(16) ++++ mg/dL [facility] Leukocytes, UA Negative Negative - 500+++ Christo/mcL [facility] Nitrite, UA Negative Negative - Positive [facility] pH, UA 5 5 - [address] [facility] Protein, UA Negative Negative - 1999(20) ++++ mg/dL [facility] Spec Grav, UA 1.03 1 - 1.03 [facility] Urobilinogen, UA 1.0 0.2 - 12 mg/dL [facility] ALL CBC WITH AUTO DIFFon BASOPHILS ABSOLUTE AUTO 0 [facility] Basophils/100 WBC (Bld) 0.5 % 0.2 - 2.0 % [facility] Eosinophils/100 WBC (Bld) 1.9 % 0.9 - 7.0 % [facility] Erythrocyte distribution width (RBC) [Ratio] 12.1 % 11.0 - 15.0 % [facility] Hematocrit (Bld) [Volume fraction] 40.1 % 36.0 - 48.0 % [facility] e Hemoglobin (Bld) [Mass/Vol] 13.5 g/dL 12.0 - 16.0 g/dL [facility] IMMATURE GRANULOCYTES ABS AUTO 0.03 [facility] Immature granulocytes/100 WBC (Bld) 0.4 % 0.0 - 0.5 % [facility] Interpretation and review of laboratory results Abnormal [facility] LYMPHOCYTES ABSOLUTE AUTO 1.7 [facility] Lymphocytes/100 WBC (Bld) 23.9 % 20.5 - 60.0 % [facility] MCH (RBC) [Entitic mass] 30.3 pg 26.7 - 34.0 pg [facility] MCHC (RBC) [Mass/Vol] 33.7 g/dL 29.9 - 35.2 g/dL [facility] MCV (RBC) [Entitic vol] 90.1 fL 81.0 - 99.0 [facility] MONOCYTES ABSOLUTE AUTO 0.5 [facility] Monocytes/100 WBC (Bld) 7.4 % 1.7 - 12.0 % [facility] NEUTROPHILS ABSOLUTE AUTO 4.8 [facility] Neutrophils/100 WBC (Bld) 65.9 % 43.0 - 75.0 % [facility] Platelet mean volume (Bld) [Entitic vol] 8.7 fL Low 9.5 - 13.5 fL [facility] TBH EO # 0.1 [facility] TBH PLT 299 [facility] RBC 4.45 [facility] WBC 7.3 [facility] Screenson 05-11-2024 Screens [id number]# 1.00TIFF Normal [facility] Ambulatory Visit Summaryon 0 2024 Ambulatory Visit [...] EDT With: RUTH CLARK, Yonis Mckenzie Where: [facility] Surgery [place] Normal [facility] Patient Educationon 05-10-20 24 Patient Education Caregiving [...] Follow these instructions at home: ? Take jvbq-hju-vykgqzn and prescription medicines as told by your [...] (more content not included)... Normal [facility] Urology Office/Clinic Noteon 2024 Urology Office/Clinic [...] back normal. Is considering f/u with a loan counselor. Also had a difficult PO recovery and had a CT scan done in the ER which indicated her Tanna is not in the correct spot. 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 We did speak about how some pts [...] Bactrim SS 1 tab prn -F/u with RN CARDIOVASCULAR to discuss IUD/different form of control -F/u [...] Contact Information EMILIANA STEPHENS, JANNETH Barreto, URL [address] [facility] [place] [address] [phone] Additional Instructions: 6 mos (no labs) Patient [...] influenza virus vaccine, (more content not included)... [facility] Comment on above: Result Comment: Elec tronically Signed By: JANNETH SMITH PA-C\.br\Date and Time Signed: 05/10/24 09:55 EDT\.br\Electronically Co-Signed By: Ondina Parra\.br\Date and Time Co-Signed: 05/10/24 09:51 EDT Outside Colonoscopyon 2023 Outside Colonoscopy [id number]#1. 00TIFF [facility] Lab Reportson 04-28-2024 Lab Reports [id number]#1 .00TIFF [facility] Consent for Procedure/Surger yon 03-09-2024 Consent for Procedure/Surgery [id number]#1 .00TIFF [facility] Ambulatory Visit Summaryon 0 03-08-2024 Ambulatory Visit Summary ROSALIE RODRÍGUEZ V :1995 Visit Date:03/08/2024 Ambulatory Visit Instructions Your Care Team Attending Physician - RUTH CLARK, Yonis Mcknezie Primary Care Physician - Melodie Ashton MD [...] JANNETH SMITH PA-C Where: [facility] Physician Referralon 024 Physician Referral [id number]#1 .00TIFF [facility] Physician Referralon 024 Physician Referral [id number]#1 .00TIFF [facility] Consent for Procedure/Surger yon 02-09-2024 Consent for Procedure/Surgery [id number]# 1.00TIFF [facility] Consent for Treatmenton 01-21 Consent for Treatment [id number] .00TIFF Normal [facility] IntraOperative Documentson 0 02-09-2024 IntraOperative Documents [id number] 1.00TIFF Normal [facility] Main OR Intraoperative Recor don 02-09-2024 Main OR Intraoperative Record IntraOp Document Type FTURO Summary Primary Physician: Dieter REMY MD Finalized Date/Time: 02/09/24 08:32:09 Pt. Name: RODRÍGUEZROSALIE/Sex: 1995 Female Med Rec #: [id number] Physician: Dieter REMY MD Financial #: [id number] Pt. Type: O Room/Bed: / Admit/Disch: 02/09/24 [...] Bianca Quesada Role Performed Surgeon - Primary Help Desk Engineer - Primary Scrub - Primary Time [...] Procedure Yes Primary Surgeon Dieter REMY MD 02/09/24 08:24:00 Stop 02/09/24 08:33:00 Anesthesia Type [...] GIUSEPPE Rushing RN, Ruthann 02/09/24 08:32 Normal [facility] Main OR Preoperative Recordo n 02-09-2024 Main OR Preoperative Record Holding Area Document Type FTURO Summary Primary Physician: Dieter REMY MD Finalized Date/Time: 02/09/24 08:08:52 Pt. Name: ASHLEE RODRÍGUEZRonnie Stafford D.O.B./Sex: 1995 Female Med Rec #: [id number] Physician: Dieter REMY MD Financial #: [id number] Pt. Type: O Room/Bed: / Admit/Disch: 02/09/24 [...] GIUSEPPE Rushing RN, Ruthann 02/09/24 08:08 Normal [facility] Operative Reporton Operative Report Patient: ASHLEE RODRÍGUEZ [...] of her recurrent urinary tract infections.. Normal [facility] Comment on above: Result Comment: Elec tronically Signed By: Dieter REMY MD\.br\Date and Time Signed: 02/09/24 08:36 EDT Outpatient Surgery Discharge Instructionon 02-09-2024 Outpatient Surgery Discharge Instruction [id number]# 1.00TIFF Normal [facility] RAD - MISCon 01-29-2024 RAD - MISC [id number]#1 .00TIFF [facility] C Urineon 01-21-2024 Bacteria identified Cx Nom [...] Locations R1: This test was performed at: [facility], [address] [place] [address], [facility]- , [place], [facility] Comment on above: Performed By: #### [id number] ####[facility] [address] [place] [address] RAD - Ultrasound Reporton RAD - Ultrasound Report [id number]# 1.00TIFF [facility] Screenson 01-21-2024 Screens [id number]#1 .00TIFF [facility] Ambulatory Visit Summaryon 0 01-19-2024 Ambulatory Visit Summary RODRÍGUEZ ROSALIE Stafford :1995 Visit Date:01/19/2024 Ambulatory Visit Instructions Your [...] EMILIANA STEPHENS, RASHMI HARPER When: Where: [address] [place] [address] Medications What How Much When Instructions New sulfamethoxazole-trim ethoprim (Bactrim 400 mg-80 mg Tab) 1 Tablets By Mouth Every day as needed for UTI prevention Refills: 3 Pickup at [facility]/pharmacy #[id number] Unchanged guanfacine (guanfacine 3 mg oral [...] physician if questions or concerns Pharmacy Information [facility]/pharmacy #[id number]: [address], [place] [phone] Allergies No Known Allergies No Known Medication [...] Trouble urinati (more content not included)... Normal [facility] Patient Educationon 01-19-20 Patient Education Obstetrics and [...] this condition includes: ? Antibiotic medicine. ? Iotm-nkc-dygkqex medicines to treat discomfort. ? Drinking enough [...] these instructions at home: Medicines ? Take tpxw-enn-bmfgaaf and prescription medicines only as told by [...] Document Revie (more content not included)... Normal [facility] BNPon 04-17-2023 Natriuretic peptide B (Bld) [Mass/Vol] 246.0 pg/mL Normal <=450.0 [facility] Comment on above: Performed By: #### I NSULIN #### [facility] [address] [place] [address] Dr. Saray Souza CARDIAC NELI ADMITon 023 CK [Catalytic activity/Vol] 47 U/L Normal 26-192 [facility] Comment on above: Performed By: #### I NSULIN #### [facility] [address] [place] [address] Dr. Saray Souza CK.MB [Mass/Vol] 1.02 ng/mL Normal <=3.[address] [facility] Comment on above: Performed By: #### I NSULIN #### [facility] [address] [place] [address] Dr. Saray Souza HSTROP 4.5 pg/mL Normal 4.0-51.3 [facility] Comment on above: Result Comment: CUT- OFF POINTS HAVE BEEN ESTABLISHED BASED ON THE FOURTH UNIVERSAL DEFINITIONS OF MYOCARDIAL INFARCTION. THE UPPER REFERENCE LIMIT (URL) OF TROPONIN, DEFINED THE 99TH PERCENTILE OF cTnI DISTRIBUTION IN A REFERENCE POPULATION, HAS BEEN CONFIRMED THE DECISION THRESHOLD FOR TX DIAGNOSIS. Performed By: #### I NSULIN #### [facility] [address] [place] [address] Dr. Saray Souza FRANKLIN 36 ng/mL Normal 9- [facility] Comment on above: Performed By: #### I CURLYULIN #### [facility] [address] [place] [address] Dr. Saray Souza CBC W MANUAL DIFFon 04-17-20 23 ATYPICAL LYMPH # Normal [facility] Comment on above: Performed By: #### C BCMAN #### [facility] [address] [place] [address] Dr. Saray Souza ATYPICAL LYMPH % Normal [facility] Comment on above: Performed By: #### C BCMAN #### [facility] [address] [place] [address] Dr. Saray Souza BAND # 0.3 103/ul Normal 0.0-0.3 [facility] Comment on above: Performed By: #### C BCMAN #### [facility] [address] [address] [address] Saray Souza BAND % 1 % Normal 0-5 [facility] Comment on above: Performed By: #### C EDGARDO #### [facility] [address] [address] [address] Saray Souza BASOM # 0.00 103/ul Normal 0.00-0.10 [facility] Comment on above: Performed By: #### C EDGARDO #### [facility] [address] [address] [address] Saray Souza BASOM % 0.0 % Critically low 0.2-2.0 [facility] Comment on above: Performed By: #### C EDGARDO #### [facility] [address] [place] [address] Dr. Saray Souza BLAST # Normal [facility] Comment on above: Performed By: #### C EDAGRDO #### [facility] [address] [place] [address] Dr. Saray Souza BLAST % Normal [facility] Comment on above: Performed By: #### C EDGARDO #### [facility] [address] [place] [address] Dr. Saray Souza CORRECTED WBC Normal 4.0-11.0 [facility] Comment on above: Performed By: #### C EDGARDO #### [facility] [address] [place] [address] Dr. Saray Souza EOS # 0.00 103/ul Normal 0.00-0.70 [facility] Comment on above: Performed By: #### C EDGARDO #### [facility] [address] [place] [address] Dr. Saray Souza EOS% 0.0 % Critically low 0.9-7.0 [facility] Comment on above: Performed By: #### C EDGARDO #### [facility] [address] [place] [address] Dr. Saray Souza HCT 43.6 % Normal 36.0-48.0 [facility] Comment on above: Performed By: #### C EDGARDO #### [facility] [address] [address] [address] Saray Souza HGB 14.7 g/dl Normal 12.0-16.0 [facility] Comment on above: Performed By: #### C EDGARDO #### [facility] [address] [address] [address] Saray Souza LYMPHM # 1.55 103/ul Normal 1.20-3.80 [facility] Comment on above: Performed By: #### C EDGARDO #### [facility] [address] [address] [address] Saray Souza LYMPHM% 6.0 % Critically low 20.5-60.0 [facility] Comment on above: Performed By: #### C EDGARDO #### [facility] [address] [place] [address] Dr. Saray Souza MCH 30.3 pg Normal 26.7-34.0 [facility] Comment on above: Performed By: #### Sweetie REYNOSO #### [facility] [address] [place] [address] Dr. Saray Souza MCHC 33.7 g/dl Normal 29.9-35.2 [facility] Comment on above: Performed By: #### C EDGARDO #### [facility] [address] [place] [address] Dr. Saray Souza MCV 89.9 fL Normal 81.0-99.0 [facility] Comment on above: Performed By: #### Sweetie REYNOSO #### [facility] [address] [address] [address] Saray Souza METAMYELOCYTE # Normal [facility] Comment on above: Performed By: #### C EDGARDO #### [facility] [address] [address] [address] Saray Souza METAMYELOCYTE % Normal [facility] Comment on above: Performed By: #### C EDGARDO #### [facility] [address] [place] [address] Dr. Saray Souza MONOM# 2.06 103/ul Critically high 0.30-0.[address] [facility] Comment on above: Performed By: #### C EDGARDO #### [facility] [address] [address] [address] Saray Souza MONOM% 8.0 % Normal 1.7-12.0 [facility] Comment on above: Performed By: #### C EDGARDO #### [facility] [address] [address] [address] Saray Souza MPV 8.8 fL Critically low 9.5-13.5 [facility] Comment on above: Performed By: #### C EDGARDO #### [facility] [address] [address] [address] Saray Souza MYELOCYTE # Normal [facility] Comment on above: Performed By: #### C EDGARDO #### [facility] [address] [place] [address] Dr. Saray Souza MYELOCYTE % Normal [facility] Comment on above: Performed By: #### C EDGARDO #### [facility] [address] [address] [address] Saray Souza NRBC Normal [facility] Comment on above: Performed By: #### C EDGARDO #### [facility] [address] [place] [address] Dr. Saray Souza PLT 397 103/ul Normal 150-450 [facility] Comment on above: Performed By: #### C EDGARDO #### [facility] [address] [address] [address] Saray Souza RBC 4.85 106/ul Normal 4.20-5.40 [facility] Comment on above: Performed By: #### C EDGARDO #### [facility] [address] [address] [address] Saray Souza RDW 12.0 % Normal 11.0-15.0 [facility] Comment on above: Performed By: #### C EDGARDO #### [facility] [address] [address] [address] Saray Souza SEG # 21.93 103/ul Critically high 1.40-6.50 [facility] Comment on above: Performed By: #### C BCMAN #### [facility] [address] [place] [address] Dr. Saray Souza SEG % 85.0 % Critically high 43.0-75.0 [facility] Comment on above: Performed By: #### C BCMAN #### [facility] [address] [place] [address] Dr. Saray Souza WBC 25.8 103/ul Critically high 4.0-11.0 [facility] Comment on above: Performed By: #### C BCMAN #### [facility] [address] [place] [address] Dr. Saray Souza CULTURE URINEon 04-17-2023 CULTURE URINE Culture Observations : LORENZO TO FOLLOW. Isolate 1 Enterococcus faecalis 20,000 cfu/mL of Normal [facility] Comment on above: Performed By: #### C BC #### [facility] [address] [place] [address] Dr. Saray Souza ER URINE PROFILEon 3 Bilirubin Ql (U) Negative Normal NEGATIVE [facility] Comment on above: Performed By: #### C BC #### [facility] [address] [place] [address] Dr. Saray Souza Clarity (U) CLEAR Normal CLEAR [facility] Comment on above: Performed By: #### C BC #### [facility] [address] [place] [address] Dr. Saray Souza Color (U) LT. YELLOW Normal YELLOW [facility] Comment on above: Performed By: #### C BC #### [facility] [address] [place] [address] Dr. Saray Souza ERUNIKOLE A micrscopic examination will be performed if indicated. Normal [facility] Comment on above: Performed By: #### C BC #### [facility] [address] [place] [address] Dr. Saray Souza Glucose Ql (U) Negative Normal NEGATIVE [facility] Comment on above: Performed By: #### C BC #### [facility] [address] [place] [address] Dr. Saray Souza Hemoglobin Ql (U) Negative Normal NEGATIVE [facility] Comment on above: Performed By: #### C BC #### [facility] [address] [place] [address] Dr. Saray Souza Ketones Ql (U) Negative Normal NEGATIVE [facility] Comment on above: Performed By: #### C BC #### [facility] [address] [place] [address] Dr. Saray Souza LEUKOCYTES SMALL Abnormal NEGATIVE [facility] Comment on above: Performed By: #### C BC #### [facility] [address] [address] [address] Saray Souza Nitrite Ql (U) Negative Normal NEGATIVE [facility] Comment on above: Performed By: #### C BC #### [facility] [address] [place] [address] Dr. Saray Souza pH (U) 6.5 [pH] Normal 5-9 [facility] Comment on above: Performed By: #### C BC #### [facility] [address] [place] [address] Dr. Saray Souza SPEC GRAVITY 1.025 Normal 1.005-<=1.025 [facility] Comment on above: Performed By: #### C BC #### [facility] [address] [place] [address] Dr. Saray Souza UA PROTEIN Negative Normal NEGATIVE/ TRACE [facility] Comment on above: Performed By: #### C BC #### [facility] [address] [place] [address] Dr. Saray Souza UR MICRO IND INDICATED Normal [facility] Comment on above: Performed By: #### C BC #### [facility] [address] [place] [address] Dr. Saray Souza Urobilinogen Qn (U) 0.2 {Janine'U}/dL Normal 0.2 - 1. 0 [facility] Comment on above: Performed By: #### C BC #### [facility] [address] [place] [address] Dr. Saray Souza URon 04-17-2023 , QUAL Negative Normal NEGATIVE [facility] Comment on above: Performed By: #### C BC #### [facility] [address] [address] [address] Saray Souza PROF 14(COMP METB)on 023 Albumin [Mass/Vol] 3.0 g/dL Critically low 3.4-5.0 [facility] Comment on above: Performed By: #### I NSULIN #### [facility] [address] [address] [address] Saray Souza Albumin/Globulin [Mass ratio] 0.9 {ratio} Normal [facility] Comment on above: Performed By: #### I NSULIN #### [facility] [address] [address] [address] Saray Souza ALP [Catalytic activity/Vol] 54 U/L Normal 46-116 [facility] Comment on above: Performed By: #### I NSULIN #### [facility] [address] [address] [address] Saray Souza ALT [Catalytic activity/Vol] 27 U/L Normal 14-59 [facility] Comment on above: Performed By: #### I NSULIN #### [facility] [address] [address] [address] Saray Souza Anion gap [Moles/Vol] 12.9 mmol/L Normal [facility] Comment on above: Performed By: #### I NSULIN #### [facility] [address] [address] [address] Saray Souza AST [Catalytic activity/Vol] 12 U/L Critically low 15-37 [facility] Comment on above: Performed By: #### I NSULIN #### [facility] [address] [address] [address] Saray Souza Bilirubin [Mass/Vol] 0.3 mg/dL Normal 0.2-1.0 [facility] Comment on above: Performed By: #### I NSULIN #### [facility] [address] [address] [address] Saray Souza Calcium [Mass/Vol] 8.1 mg/dL Critically low 8.5-10.1 [facility] Comment on above: Performed By: #### I NSULIN #### [facility] [address] [address] [address] Saray Souza Chloride [Moles/Vol] 102 mmol/L Normal 98-107 [facility] Comment on above: Performed By: #### I NSULIN #### [facility] [address] [address] [address] Saray Souza CO2 [Moles/Vol] 26.2 mmol/L Normal 21.0-32.0 [facility] Comment on above: Performed By: #### I NSULIN #### [facility] [address] [address] [address] Saray Souza Creatinine [Mass/Vol] 0.87 mg/dL Normal 0.55-1.02 [facility] Comment on above: Performed By: #### I NSULIN #### [facility] [address] [place] [address] Dr. Saray Souza EGFR-AF AFGHAN >60 Normal >=60 [facility] Comment on above: Performed By: #### I NSULIN #### [facility] [address] [address] [address] Saray Souza EGFR-NON AF AFGHAN >60 Normal >=60 [facility] Comment on above: Performed By: #### I NSULIN #### [facility] [address] [place] [address] Dr. Saray Souza Globulin (S) [Mass/Vol] 3.2 g/dL Normal [facility] Comment on above: Performed By: #### I NSULIN #### [facility] [address] [place] [address] Dr. Saray Souza Glucose [Mass/Vol] 206 mg/dL Critically high 74-[address] [facility] Comment on above: Performed By: #### I NSULIN #### [facility] [address] [address] [address] Saray Souza Potassium [Moles/Vol] 4.1 mmol/L Normal 3.5-5.1 [facility] Comment on above: Performed By: #### I NSULIN #### [facility] [address] [address] [address] Saray Souza Protein [Mass/Vol] 6.2 g/dL Critically low 6.4-8.2 [facility] Comment on above: Performed By: #### I NSULIN #### [facility] [address] [address] [address] Saray Souza Sodium [Moles/Vol] 137 mmol/L Normal 136-145 [facility] Comment on above: Performed By: #### I NSULIN #### [facility] [address] [place] [address] Dr. Saray Souza Urea nitrogen [Mass/Vol] 19.0 mg/dL Critically high 7.0-18.0 [facility] Comment on above: Performed By: #### I NSULIN #### [facility] [address] [place] [address] Dr. Saray Souza Urea nitrogen/Creatinine [Mass ratio] 21.8 mg/mg Normal [facility] Comment on above: Performed By: #### I NSULIN #### [facility] [address] [address] [address] Saray Souza TSHon 04-17-2023 TSH 0.553 uIU/mL Normal 0.358-3.740 [facility] Comment on above: Performed By: #### I NSULIN #### [facility] [address] [address] [address] Saray Souza URINE MICROSCOPIC ONLYon BACTERIA TRACE Abnormal NONE SEEN [facility] Comment on above: Performed By: #### C BC #### [facility] [address] [place] [address] Dr. Saray Souza Bacteria identified Cx Nom (U) INDICATED Normal [facility] Comment on above: Performed By: #### C BC #### [facility] [address] [place] [address] Dr. Saray Souza CAST NONE SEEN Normal NONE SEEN [facility] Comment on above: Performed By: #### C BC #### [facility] [address] [place] [address] Dr. Saray Souza Crystals LM Nom (Urine sed) NONE SEEN Normal NONE SEEN [facility] Comment on above: Performed By: #### C BC #### [facility] [address] [place] [address] Dr. Saray Souza Epithelial cells LM Ql (Urine sed) RARE Normal NONE SEEN /RARE [facility] Comment on above: Performed By: #### C BC #### [facility] [address] [place] [address] Dr. Saray Souza MUCOUS NONE SEEN Normal NONE SEEN [facility] Comment on above: Performed By: #### C BC #### [facility] [address] [place] [address] Dr. Saray Souza RBC 0-2 Normal 0-2 [facility] Comment on above: Performed By: #### C BC #### [facility] [address] [place] [address] Dr. Saray Souza WBC 5-10 Abnormal NONE SEEN [facility] Comment on above: Performed By: #### C BC #### [facility] [address] [place] [address] Dr. Saray Souza XR CHEST 2 Von [...] CAROL RAMIREZ Date: 2023-04-17 10:45 Normal [facility] INSULINon 04-07-2023 Insulin 11.3 uIU/mL Normal 2.6-24.9 [facility] Comment on above: Performed By: #### I NSULIN #### [facility] [address] [place] [address] Dr. Saray Souza US KIDNEYS BLADDERon 023 [...] NANDINI MAYER Date: 2023-04-04 08:22 Normal [facility] INSULINon 04-02-2023 Insulin 37.5 uIU/mL Critically high 2.6-24.[address] [facility] Comment on above: Performed By: #### I NSULIN #### [facility] [address] [place] [address] Dr. Saray Souza CBC AUTO DIFFon 04-01-2023 BASO # 0.0 103/ul Normal 0.0-0.1 [facility] Comment on above: Performed By: #### C BC #### [facility] [address] [place] [address] Dr. Saray Souza Basophils/100 WBC (Bld) 0.5 % Normal 0.2-2.0 [facility] Comment on above: Performed By: #### C BC #### [facility] [address] [place] [address] Dr. Saray Souza EO # 0.2 103/ul Normal 0.0-0.7 [facility] Comment on above: Performed By: #### C BC #### [facility] [address] [place] [address] Dr. Saray Souza Eosinophils/100 WBC (Bld) 2.3 % Normal 0.9-7.0 [facility] Comment on above: Performed By: #### C BC #### [facility] [address] [place] [address] Dr. Saray Souza Erythrocyte distribution width (RBC) [Ratio] 11.9 % Normal 11.0-15.0 [facility] Comment on above: Performed By: #### C BC #### [facility] [address] [place] [address] Dr. Saray Souza Hematocrit (Bld) [Volume fraction] 42.2 % Normal 36.0-48.0 [facility] Comment on above: Performed By: #### C BC #### [facility] [address] [place] [address] Dr. Saray Souaz Hemoglobin (Bld) [Mass/Vol] 13.7 g/dL Normal 12.0-16.0 [facility] Comment on above: Performed By: #### C BC #### [facility] [address] [place] [address] Dr. Saray Souza IG # 0.02 10e3/ul Normal 0.00-0.03 [facility] Comment on above: Performed By: #### C BC #### [facility] [address] [place] [address] Dr. Saray Souza IG % 0.3 % Normal 0.0-0.5 [facility] Comment on above: Performed By: #### C BC #### [facility] [address] [place] [address] Dr. Saray Souza LYMPH # 1.6 103/ul Normal 1.2-3.8 [facility] Comment on above: Performed By: #### C BC #### [facility] [address] [place] [address] Dr. Saray Souza Lymphocytes/100 WBC (Bld) 21.5 % Normal 20.5-60.0 [facility] Comment on above: Performed By: #### C BC #### [facility] [address] [place] [address] Dr. Saray Souza MANUAL DIFF REQ NO Normal [facility] Comment on above: Performed By: #### C BC #### [facility] [address] [place] [address] Dr. Saray Souza MCH (RBC) [Entitic mass] 30.0 pg Normal 26.7-34.0 [facility] Comment on above: Performed By: #### C BC #### [facility] [address] [address] [address] Saray Souza MCHC (RBC) [Mass/Vol] 32.5 g/dL Normal 29.9-35.2 [facility] Comment on above: Performed By: #### C BC #### [facility] [address] [address] [address] Saray Souza MCV (RBC) [Entitic vol] 92.5 fL Normal 81.0-99.0 [facility] Comment on above: Performed By: #### C BC #### [facility] [address] [place] [address] Dr. Saray Souza MONO # 0.7 103/ul Normal 0.3-0.8 [facility] Comment on above: Performed By: #### C BC #### [facility] [address] [place] [address] Dr. Saray Souza Monocytes/100 WBC (Bld) 9.6 % Normal 1.7-12.0 [facility] Comment on above: Performed By: #### C BC #### [facility] [address] [place] [address] Dr. Saray Souza NEUT # 5.0 103/ul Normal 1.4-6.5 [facility] Comment on above: Performed By: #### C BC #### [facility] [address] [address] [address] Saray Souza Neutrophils/100 WBC (Bld) 65.8 % Normal 43.0-75.0 [facility] Comment on above: Performed By: #### C BC #### [facility] [address] [address] [address] Saray Souza Platelet mean volume (Bld) [Entitic vol] 8.9 fL Critically low 9.5-13.5 [facility] Comment on above: Performed By: #### C BC #### [facility] [address] [place] [address] Dr. Saray Souza PLT 293 103/ul Normal 150-450 [facility] Comment on above: Performed By: #### C BC #### [facility] [address] [place] [address] Dr. Saray Souza RBC 4.56 106/ul Normal 4.20-5.40 [facility] Comment on above: Performed By: #### C BC #### [facility] [address] [place] [address] Dr. Saray Souza WBC 7.5 103/ul Normal 4.0-11.0 [facility] Comment on above: Performed By: #### C BC #### [facility] [address] [place] [address] Dr. Saray Souza CULTURE URINEon 04-01-2023 CULTURE URINE Culture Observations : MODERATE GROWTH OF MIXED GENITAL CARMELO. NO POTENTIAL PATHOGENS SEEN. Normal [facility] Comment on above: Performed By: #### C BC #### [facility] [address] [place] [address] Dr. Saray Souza FREE THYROXINE INDEX T7on FTI 2.51 Normal 1.30-4.50 [facility] Comment on above: Performed By: #### I NSULIN #### [facility] [address] [place] [address] Dr. Saray Souza T3U 33.0 % Normal 30.0-39.0 [facility] Comment on above: Performed By: #### I NSULIN #### [facility] [address] [place] [address] Dr. Saray Souza T4 [Mass/Vol] 7.60 ug/dL Normal 4.80-13.90 [facility] Comment on above: Performed By: #### I NSULIN #### [facility] [address] [place] [address] Dr. Saray Souza IRONon 04-01-2023 Iron [Mass/Vol] 151.0 ug/dL Normal 50.0-170.[address] [facility] Comment on above: Performed By: #### C BCMAN #### [facility] [address] [address] [address] Saray Souza PROF 14(COMP METB)on 023 Albumin [Mass/Vol] 3.7 g/dL Normal 3.4-5.0 [facility] Comment on above: Performed By: #### C EDGARDO #### [facility] [address] [place] [address] Dr. Saray Souza Albumin/Globulin [Mass ratio] 1.1 {ratio} Normal [facility] Comment on above: Performed By: #### C EDGARDO #### [facility] [address] [place] [address] Dr. Saray Souza ALP [Catalytic activity/Vol] 81 U/L Normal 46-116 [facility] Comment on above: Performed By: #### C EDGARDO #### [facility] [address] [place] [address] Dr. Saray Souza ALT [Catalytic activity/Vol] 33 U/L Normal 14-59 [facility] Comment on above: Performed By: #### C EDGARDO #### [facility] [address] [place] [address] Dr. Saray Souza Anion gap [Moles/Vol] 10.2 mmol/L Normal [facility] Comment on above: Performed By: #### C EDGARDO #### [facility] [address] [place] [address] Dr. Saray Souza AST [Catalytic activity/Vol] 22 U/L Normal 15-37 [facility] Comment on above: Performed By: #### C EDGARDO #### [facility] [address] [place] [address] Dr. Saray Souza Bilirubin [Mass/Vol] 0.3 mg/dL Normal 0.2-1.0 [facility] Comment on above: Performed By: #### C EDGARDO #### [facility] [address] [place] [address] Dr. Saray Souza Calcium [Mass/Vol] 8.6 mg/dL Normal 8.5-10.1 [facility] Comment on above: Performed By: #### C EDGARDO #### [facility] [address] [address] [address] Saray Souza Chloride [Moles/Vol] 105 mmol/L Normal 98-107 [facility] Comment on above: Performed By: #### C EDGARDO #### [facility] [address] [address] [address] Saray Souza CO2 [Moles/Vol] 30.4 mmol/L Normal 21.0-32.0 [facility] Comment on above: Performed By: #### C EDGARDO #### [facility] [address] [address] [address] Saray Souza Creatinine [Mass/Vol] 0.72 mg/dL Normal 0.55-1.02 [facility] Comment on above: Performed By: #### C EDGARDO #### [facility] [address] [place] [address] Dr. Saray Souza EGFR-AF AFGHAN >60 Normal >=[address] [facility] Comment on above: Performed By: #### C EDGARDO #### [facility] [address] [place] [address] Dr. Saray Souza EGFR-NON AF AFGHAN >60 Normal >=60 [facility] Comment on above: Performed By: #### C EDGARDO #### [facility] [address] [place] [address] Dr. Saray Souza Globulin (S) [Mass/Vol] 3.5 g/dL Normal [facility] Comment on above: Performed By: #### C EDGARDO #### [facility] [address] [address] [address] Saray Souza Glucose [Mass/Vol] 89 mg/dL Normal 74-106 [facility] Comment on above: Performed By: #### C EDGARDO #### [facility] [address] [place] [address] Dr. Saray Souza Potassium [Moles/Vol] 3.6 mmol/L Normal 3.5-5.1 [facility] Comment on above: Performed By: #### C EDGARDO #### [facility] [address] [place] [address] Dr. Saray Souza Protein [Mass/Vol] 7.2 g/dL Normal 6.4-8.2 [facility] Comment on above: Performed By: #### C EDGARDO #### [facility] [address] [place] [address] Dr. Saray Souza Sodium [Moles/Vol] 142 mmol/L Normal 136-145 [facility] Comment on above: Performed By: #### C EDGARDO #### [facility] [address] [place] [address] Dr. Saray Souza Urea nitrogen [Mass/Vol] 12.0 mg/dL Normal 7.0-18.0 [facility] Comment on above: Performed By: #### C EDGARDO #### [facility] [address] [place] [address] Dr. Saray Souza Urea nitrogen/Creatinine [Mass ratio] 16.7 mg/mg Normal [facility] Comment on above: Performed By: #### C EDGARDO #### [facility] [address] [place] [address] Dr. Saray Souza TSHon 04-01-2023 TSH 1.708 uIU/mL Normal 0.358-3.740 [facility] Comment on above: Performed By: #### I ANA #### [facility] [address] [place] [address] Dr. Saray Souza UA RANDOM W/MICROSCOPICon BACTERIA SMALL Abnormal NONE SEEN [facility] Comment on above: Performed By: #### I NSULIN #### [facility] [address] [place] [address] Dr. Saray Souza Bilirubin Ql (U) Negative Normal NEGATIVE [facility] Comment on above: Performed By: #### I NSULIN #### [facility] [address] [place] [address] Dr. Saray Souza CAST NONE SEEN Normal NONE SEEN [facility] Comment on above: Performed By: #### I NSULIN #### [facility] [address] [place] [address] Dr. Saray Souza Clarity (U) CLEAR Normal CLEAR [facility] Comment on above: Performed By: #### I NSULIN #### [facility] [address] [address] [address] Saray Souza Color (U) YELLOW Normal YELLOW [facility] Comment on above: Performed By: #### I NSULIN #### [facility] [address] [place] [address] Dr. Saray Souza Crystals LM Nom (Urine sed) NONE SEEN Normal NONE SEEN [facility] Comment on above: Performed By: #### I NSULIN #### [facility] [address] [place] [address] Dr. Saray Souza Epithelial cells LM Ql (Urine sed) FEW Abnormal NONE SEEN /RARE [facility] Comment on above: Performed By: #### I NSULIN #### [facility] [address] [place] [address] Dr. Saray Souza Glucose Ql (U) Negative Normal NEGATIVE [facility] Comment on above: Performed By: #### I NSULIN #### [facility] [address] [place] [address] Dr. Saray Souza Hemoglobin Ql (U) Negative Normal NEGATIVE [facility] Comment on above: Performed By: #### I NSULIN #### [facility] [address] [place] [address] Dr. Saray Souza Ketones Ql (U) TRACE Abnormal NEGATIVE [facility] Comment on above: Performed By: #### I NSULIN #### [facility] [address] [place] [address] Dr. Saray Souza LEUKOCYTES SMALL Abnormal NEGATIVE [facility] Comment on above: Performed By: #### I NSULIN #### [facility] [address] [place] [address] Dr. Saray Souza MUCOUS NONE SEEN Normal NONE SEEN [facility] Comment on above: Performed By: #### I NSULIN #### [facility] [address] [place] [address] Dr. Saray Souza Nitrite Ql (U) Negative Normal NEGATIVE [facility] Comment on above: Performed By: #### I NSULIN #### [facility] [address] [place] [address] Dr. Saray Souza pH (U) 5.5 [pH] Normal 5-9 [facility] Comment on above: Performed By: #### I NSULIN #### [facility] [address] [place] [address] Dr. Saray Souza RBC 0-2 Normal 0-2 [facility] Comment on above: Performed By: #### I NSULIN #### [facility] [address] [address] [address] Saray Souza SPEC GRAVITY >=1.030 Abnormal 1.005-<=1.025 [facility] Comment on above: Performed By: #### I NSULIN #### [facility] [address] [place] [address] Dr. Saray Souza UA PROTEIN Negative Normal NEGATIVE/ TRACE [facility] Comment on above: Performed By: #### I NSULIN #### [facility] [address] [place] [address] Dr. Saray Souza Urobilinogen Qn (U) 0.2 {Janine'U}/dL Normal 0.2 - 1. 0 [facility] Comment on above: Performed By: #### I NSULIN #### [facility] [address] [place] [address] Dr. Saray Souza WBC 5-10 Abnormal NONE SEEN [facility] Comment on above: Performed By: #### I NSULIN #### [facility] [address] [address] [address] Saray Souza INSULINon 02-14-2023 Insulin 12.8 uIU/mL Normal 2.6-24.9 [facility] Comment on above: Performed By: #### C BC #### [facility] [address] [address] [address] Saray Souza CBC AUTO DIFFon 02-13-2023 BASO # 0.0 103/ul Normal 0.0-0.1 [facility] Comment on above: Performed By: #### C BC #### [facility] [address] [place] [address] Dr. Saray Souza Basophils/100 WBC (Bld) 0.4 % Normal 0.2-2.0 [facility] Comment on above: Performed By: #### C BC #### [facility] [address] [place] [address] Dr. Saray Souza EO # 0.1 103/ul Normal 0.0-0.7 [facility] Comment on above: Performed By: #### C BC #### [facility] [address] [place] [address] Dr. Saray Souza Eosinophils/100 WBC (Bld) 1.6 % Normal 0.9-7.0 [facility] Comment on above: Performed By: #### C BC #### [facility] [address] [place] [address] Dr. Saray Souza Erythrocyte distribution width (RBC) [Ratio] 11.9 % Normal 11.0-15.0 [facility] Comment on above: Performed By: #### C BC #### [facility] [address] [place] [address] Dr. Saray Souza Hematocrit (Bld) [Volume fraction] 41.9 % Normal 36.0-48.0 [facility] Comment on above: Performed By: #### C BC #### [facility] [address] [place] [address] Dr. Saray Souza Hemoglobin (Bld) [Mass/Vol] 13.7 g/dL Normal 12.0-16.0 [facility] Comment on above: Performed By: #### C BC #### [facility] [address] [place] [address] Dr. Saray Souza IG # 0.02 10e3/ul Normal 0.00-0.03 [facility] Comment on above: Performed By: #### C BC #### [facility] [address] [place] [address] Dr. Saray Souza IG % 0.3 % Normal 0.0-0.5 [facility] Comment on above: Performed By: #### C BC #### [facility] [address] [place] [address] Dr. Saray Souza LYMPH # 1.4 103/ul Normal 1.2-3.8 [facility] Comment on above: Performed By: #### C BC #### [facility] [address] [place] [address] Dr. Saray Souza Lymphocytes/100 WBC (Bld) 18.6 % Critically low 20.5-60.0 [facility] Comment on above: Performed By: #### C BC #### [facility] [address] [place] [address] Dr. Saray Souza MANUAL DIFF REQ NO Normal [facility] Comment on above: Performed By: #### C BC #### [facility] [address] [place] [address] Dr. Saray Souza MCH (RBC) [Entitic mass] 29.9 pg Normal 26.7-34.0 [facility] Comment on above: Performed By: #### C BC #### [facility] [address] [place] [address] Dr. Saray Souza MCHC (RBC) [Mass/Vol] 32.7 g/dL Normal 29.9-35.2 [facility] Comment on above: Performed By: #### C BC #### [facility] [address] [place] [address] Dr. Saray Souza MCV (RBC) [Entitic vol] 91.5 fL Normal 81.0-99.0 [facility] Comment on above: Performed By: #### C BC #### [facility] [address] [place] [address] Dr. Saray Souza MONO # 0.6 103/ul Normal 0.3-0.8 [facility] Comment on above: Performed By: #### C BC #### [facility] [address] [place] [address] Dr. Saray Souza Monocytes/100 WBC (Bld) 8.3 % Normal 1.7-12.0 [facility] Comment on above: Performed By: #### C BC #### [facility] [address] [place] [address] Dr. Saray Souza NEUT # 5.5 103/ul Normal 1.4-6.5 [facility] Comment on above: Performed By: #### C BC #### [facility] [address] [address] [address] Saray Souza Neutrophils/100 WBC (Bld) 70.8 % Normal 43.0-75.0 [facility] Comment on above: Performed By: #### C BC #### [facility] [address] [place] [address] Dr. Saray Souza Platelet mean volume (Bld) [Entitic vol] 9.0 fL Critically low 9.5-13.5 [facility] Comment on above: Performed By: #### C BC #### [facility] [address] [place] [address] Dr. Saray Souza PLT 271 103/ul Normal 150-450 [facility] Comment on above: Performed By: #### C BC #### [facility] [address] [place] [address] Dr. Saray Souza RBC 4.58 106/ul Normal 4.20-5.40 [facility] Comment on above: Performed By: #### C BC #### [facility] [address] [place] [address] Dr. Saray Souza WBC 7.7 103/ul Normal 4.0-11.0 [facility] Comment on above: Performed By: #### C BC #### [facility] [address] [place] [address] Dr. Saray Souza FREE THYROXINE INDEX T7on FTI 2.56 Normal 1.30-4.50 [facility] Comment on above: Performed By: #### I NSULIN #### [facility] [address] [place] [address] Dr. Saray Souza T3U 36.0 % Normal 30.0-39.0 [facility] Comment on above: Performed By: #### I NSULIN #### [facility] [address] [place] [address] Dr. Saray Souza T4 [Mass/Vol] 7.10 ug/dL Normal 4.80-13.90 [facility] Comment on above: Performed By: #### I NSULIN #### [facility] [address] [place] [address] Dr. Saray Souza IRONon 02-13-2023 Iron [Mass/Vol] 130.0 ug/dL Normal 50.0-170.0 [facility] Comment on above: Performed By: #### C EDGARDO #### [facility] [address] [place] [address] Dr. Saray Souza PROF 14(COMP METB)on 023 Albumin [Mass/Vol] 3.8 g/dL Normal 3.4-5.0 [facility] Comment on above: Performed By: #### I NSULIN #### [facility] [address] [place] [address] Dr. Saray Souza Albumin/Globulin [Mass ratio] 1.2 {ratio} Normal [facility] Comment on above: Performed By: #### I NSULIN #### [facility] [address] [place] [address] Dr. Saray Sozua ALP [Catalytic activity/Vol] 82 U/L Normal 46-116 [facility] Comment on above: Performed By: #### I NSULIN #### [facility] Laboratory [address] [place] [address] Dr. Saray Souza ALT [Catalytic activity/Vol] 25 U/L Normal 14-59 [facility] Comment on above: Performed By: #### I NSULIN #### [facility] [address] [place] [address] Dr. Saray Souza Anion gap [Moles/Vol] 12.7 mmol/L Normal [facility] Comment on above: Performed By: #### I NSULIN #### [facility] [address] [place] [address] Dr. Saray Souza AST [Catalytic activity/Vol] 19 U/L Normal 15-37 [facility] Comment on above: Performed By: #### I NSULIN #### [facility] [address] [place] [address] Dr. Saray Souza Bilirubin [Mass/Vol] 0.3 mg/dL Normal 0.2-1.0 [facility] Comment on above: Performed By: #### I NSULIN #### [facility] [address] [address] [address] Saray Souza Calcium [Mass/Vol] 8.8 mg/dL Normal 8.5-10.1 [facility] Comment on above: Performed By: #### I NSULIN #### [facility] [address] [address] [address] Saray Souza Chloride [Moles/Vol] 101 mmol/L Normal 98-107 [facility] Comment on above: Performed By: #### I NSULIN #### [facility] [address] [address] [address] Saray Souza CO2 [Moles/Vol] 27.3 mmol/L Normal 21.0-32.0 [facility] Comment on above: Performed By: #### I NSULIN #### [facility] [address] [address] [address] Saray Souza Creatinine [Mass/Vol] 0.69 mg/dL Normal 0.55-1.02 [facility] Comment on above: Performed By: #### I NSULIN #### [facility] [address] [address] [address] Saray Souza EGFR-AF AFGHAN >60 Normal >=60 [facility] Comment on above: Performed By: #### I NSULIN #### [facility] [address] [address] [address] Saray Souza EGFR-NON AF AFGHAN >60 Normal >=60 [facility] Comment on above: Performed By: #### I NSULIN #### [facility] [address] [address] [address] Saray Souza Globulin (S) [Mass/Vol] 3.3 g/dL Normal [facility] Comment on above: Performed By: #### I NSULIN #### [facility] [address] [address] [address] Saray Souza Glucose [Mass/Vol] 83 mg/dL Normal 74-106 [facility] Comment on above: Performed By: #### I NSULIN #### [facility] [address] [address] [address] Saray Souza Potassium [Moles/Vol] 4.0 mmol/L Normal 3.5-5.1 [facility] Comment on above: Performed By: #### I NSULIN #### [facility] [address] [place] [address] Dr. Saray Souza Protein [Mass/Vol] 7.1 g/dL Normal 6.4-8.2 [facility] Comment on above: Performed By: #### I NSULIN #### [facility] [address] [place] [address] Dr. Saray Souza Sodium [Moles/Vol] 137 mmol/L Normal 136-145 [facility] Comment on above: Performed By: #### I NSULIN #### [facility] [address] [place] [address] Dr. Saray Souza Urea nitrogen [Mass/Vol] 10.0 mg/dL Normal 7.0-18.0 [facility] Comment on above: Performed By: #### I NSULIN #### [facility] [address] [place] [address] Dr. Saray Souza Urea nitrogen/Creatinine [Mass ratio] 14.5 mg/mg Normal [facility] Comment on above: Performed By: #### I NSULIN #### [facility] [address] [place] [address] Dr. Saray Souza TSHon 02-13-2023 TSH 2.745 uIU/mL Normal 0.358-3.740 [facility] Comment on above: Performed By: #### I NSULIN #### [facility] [address] [place] [address] Dr. Saray Souza AMYLASEon 02-04-2023 Amylase [Catalytic activity/Vol] 45 U/L Normal 25-115 [facility] Comment on above: Performed By: #### T SH, CMP, HSTROPN, LIPA, KELLE #### [facility] [address] [place] [address] Dr. Saray Souza CBC AUTO DIFFon 02-04-2023 BASO # 0.0 103/ul Normal 0.0-0.1 [facility] Comment on above: Performed By: #### C BC #### [facility] [address] [place] [address] Dr. Saray Souza Basophils/100 WBC (Bld) 0.4 % Normal 0.2-2.0 [facility] Comment on above: Performed By: #### C BC #### [facility] [address] [place] [address] Dr. Saray Souza EO # 0.1 103/ul Normal 0.0-0.7 [facility] Comment on above: Performed By: #### C BC #### [facility] [address] [place] [address] Dr. Saray Souza Eosinophils/100 WBC (Bld) 1.7 % Normal 0.9-7.0 [facility] Comment on above: Performed By: #### C BC #### [facility] [address] [place] [address] Dr. Saray Souza Erythrocyte distribution width (RBC) [Ratio] 12.0 % Normal 11.0-15.0 [facility] Comment on above: Performed By: #### C BC #### [facility] [address] [place] [address] Dr. Saray Souza Hematocrit (Bld) [Volume fraction] 42.3 % Normal 36.0-48.0 [facility] Comment on above: Performed By: #### C BC #### [facility] [address] [place] [address] Dr. Saray Souza Hemoglobin (Bld) [Mass/Vol] 13.9 g/dL Normal 12.0-16.0 [facility] Comment on above: Performed By: #### C BC #### [facility] [address] [place] [address] Dr. Saray Souza IG # 0.03 10e3/ul Normal 0.00-0.03 [facility] Comment on above: Performed By: #### C BC #### [facility] [address] [place] [address] Dr. Saray Souza IG % 0.4 % Normal 0.0-0.5 [facility] Comment on above: Performed By: #### C BC #### [facility] [address] [place] [address] Dr. Saray Souza LYMPH # 1.5 103/ul Normal 1.2-3.8 [facility] Comment on above: Performed By: #### C BC #### [facility] [address] [place] [address] Dr. Saray Souza Lymphocytes/100 WBC (Bld) 20.4 % Critically low 20.5-60.0 [facility] Comment on above: Performed By: #### C BC #### [facility] [address] [place] [address] Dr. Saray Souza MANUAL DIFF REQ NO Normal [facility] Comment on above: Performed By: #### C BC #### [facility] [address] [place] [address] Dr. Saray Souza MCH (RBC) [Entitic mass] 30.0 pg Normal 26.7-34.0 [facility] Comment on above: Performed By: #### C BC #### [facility] [address] [place] [address] Dr. Saray Souza MCHC (RBC) [Mass/Vol] 32.9 g/dL Normal 29.9-35.2 [facility] Comment on above: Performed By: #### C BC #### [facility] [address] [place] [address] Dr. Saray Souza MCV (RBC) [Entitic vol] 91.2 fL Normal 81.0-99.0 [facility] Comment on above: Performed By: #### C BC #### [facility] [address] [place] [address] Dr. Saray Souza MONO # 0.6 103/ul Normal 0.3-0.8 [facility] Comment on above: Performed By: #### C BC #### [facility] [address] [place] [address] Dr. Saray Souza Monocytes/100 WBC (Bld) 7.7 % Normal 1.7-12.0 [facility] Comment on above: Performed By: #### C BC #### [facility] [address] [place] [address] Dr. Saray Souza NEUT # 5.2 103/ul Normal 1.4-6.5 [facility] Comment on above: Performed By: #### C BC #### [facility] [address] [place] [address] Dr. Saray Souza Neutrophils/100 WBC (Bld) 69.4 % Normal 43.0-75.0 [facility] Comment on above: Performed By: #### C BC #### [facility] [address] [place] [address] Dr. Saray Souza Platelet mean volume (Bld) [Entitic vol] 9.0 fL Critically low 9.5-13.5 [facility] Comment on above: Performed By: #### C BC #### [facility] [address] [place] [address] Dr. Saray Souza PLT 292 103/ul Normal 150-450 [facility] Comment on above: Performed By: #### C BC #### [facility] [address] [place] [address] Dr. Saray Souza RBC 4.64 106/ul Normal 4.20-5.40 [facility] Comment on above: Performed By: #### C BC #### [facility] [address] [place] [address] Dr. Saray Souza WBC 7.5 103/ul Normal 4.0-11.0 [facility] Comment on above: Performed By: #### C BC #### [facility] [address] [place] [address] Dr. Saray Souza CULTURE URINEon 02-04-2023 CULTURE URINE Culture Observations : LIGHT GROWTH OF MIXED GENITAL CARMELO. NO POTENTIAL PATHOGENS SEEN. Normal [facility] Comment on above: Performed By: #### C BC #### [facility] [address] [place] [address] Dr. Saray Souza ER URINE PROFILEon Bilirubin Ql (U) Negative Normal NEGATIVE [facility] Comment on above: Performed By: #### C BC #### [facility] [address] [place] [address] Dr. Saray Souza Clarity (U) CLEAR Normal CLEAR [facility] Comment on above: Performed By: #### C BC #### [facility] [address] [place] [address] Dr. Saray Souza Color (U) LT. YELLOW Normal YELLOW [facility] Comment on above: Performed By: #### C BC #### [facility] [address] [place] [address] Dr. Saray JHA A micrscopic examination will be performed if indicated. Normal [facility] Comment on above: Performed By: #### C BC #### [facility] [address] [place] [address] Dr. Saray Souza Glucose Ql (U) Negative Normal NEGATIVE [facility] Comment on above: Performed By: #### C BC #### [facility] [address] [place] [address] Dr. Saray Souza Hemoglobin Ql (U) Negative Normal NEGATIVE [facility] Comment on above: Performed By: #### C BC #### [facility] [address] [place] [address] Dr. Saray Souza Ketones Ql (U) Negative Normal NEGATIVE [facility] Comment on above: Performed By: #### C BC #### [facility] [address] [place] [address] Dr. Saray Souza LEUKOCYTES MODERATE Abnormal NEGATIVE [facility] Comment on above: Performed By: #### C BC #### [facility] [address] [place] [address] Dr. Saray Souza Nitrite Ql (U) Negative Normal NEGATIVE [facility] Comment on above: Performed By: #### C BC #### [facility] [address] [place] [address] Dr. Saray Souza pH (U) 5.5 [pH] Normal 5-9 [facility] Comment on above: Performed By: #### C BC #### [facility] [address] [place] [address] Dr. Saray Souza SPEC GRAVITY >=1.030 Abnormal 1.005-<=1.025 [facility] Comment on above: Performed By: #### C BC #### [facility] [address] [place] [address] Dr. Saary Souza UA PROTEIN Negative Normal NEGATIVE/ TRACE [facility] Comment on above: Performed By: #### C BC #### [facility] [address] [place] [address] Dr. Saray Souza UR MICRO IND INDICATED Normal [facility] Comment on above: Performed By: #### C BC #### [facility] [address] [place] [address] Dr. Saray Souza Urobilinogen Qn (U) 0.2 {Janine'U}/dL Normal 0.2 - 1. 0 [facility] Comment on above: Performed By: #### C BC #### [facility] [address] [place] [address] Dr. Saray Souza LIPASEon 02-04-2023 Lipase [Catalytic activity/Vol] 97.0 U/L Normal 73.0-393.0 [facility] Comment on above: Performed By: #### T SH, CMP, HSTROPN, LIPA, KELLE #### [facility] [address] [place] [address] Dr. Saray Souza URon 02-04-2023 , QUAL Negative Normal NEGATIVE [facility] Comment on above: Performed By: #### C BC #### [facility] [address] [place] [address] Dr. Saray Souza PROF 14(COMP METB)on 023 Albumin [Mass/Vol] 3.5 g/dL Normal 3.4-5.0 [facility] Comment on above: Performed By: #### T SH, CMP, HSTROPN, LIPA, KELLE #### [facility] [address] [place] [address] Dr. Saray Souza Albumin/Globulin [Mass ratio] 1.2 {ratio} Normal [facility] Comment on above: Performed By: #### T SH, CMP, HSTROPN, LIPA, KELLE #### [facility] [address] [place] [address] Dr. Saray Souza ALP [Catalytic activity/Vol] 78 U/L Normal 46-116 [facility] Comment on above: Performed By: #### T SH, CMP, HSTROPN, LIPA, KELLE #### [facility] [address] [place] [address] Dr. Saray Souza ALT [Catalytic activity/Vol] 24 U/L Normal 14-59 [facility] Comment on above: Performed By: #### T SH, CMP, HSTROPN, LIPA, KELLE #### [facility] [address] [place] [address] Dr. Saray Souza Anion gap [Moles/Vol] 7.9 mmol/L Normal [facility] Comment on above: Performed By: #### T SH, CMP, HSTROPN, LIPA, KELLE #### [facility] [address] [place] [address] Dr. Saray Souza AST [Catalytic activity/Vol] 16 U/L Normal 15-37 [facility] Comment on above: Performed By: #### T SH, CMP, HSTROPN, LIPA, KELLE #### [facility] [address] [place] [address] Dr. Saray Souza Bilirubin [Mass/Vol] 0.3 mg/dL Normal 0.2-1.0 [facility] Comment on above: Performed By: #### T SH, CMP, HSTROPN, LIPA, KELLE #### [facility] [address] [place] [address] Dr. Saray Souza Calcium [Mass/Vol] 8.6 mg/dL Normal 8.5-10.1 [facility] Comment on above: Performed By: #### T SH, CMP, HSTROPN, LIPA, KELLE #### [facility] [address] [place] [address] Dr. Saray Souza Chloride [Moles/Vol] 105 mmol/L Normal 98-107 [facility] Comment on above: Performed By: #### T SH, CMP, HSTROPN, LIPA, KELLE #### [facility] [address] [place] [address] Dr. Saray Souza CO2 [Moles/Vol] 28.9 mmol/L Normal 21.0-32.0 [facility] Comment on above: Performed By: #### T SH, CMP, HSTROPN, LIPA, KELLE #### [facility] [address] [place] [address] Dr. Saray Souza Creatinine [Mass/Vol] 0.67 mg/dL Normal 0.55-1.02 [facility] Comment on above: Performed By: #### T SH, CMP, HSTROPN, LIPA, KELLE #### [facility] [address] [place] [address] Dr. Saray Souza EGFR-AF AFGHAN >60 Normal >=60 [facility] Comment on above: Performed By: #### T SH, CMP, HSTROPN, LIPA, KELLE #### [facility] [address] [place] [address] Dr. Saray Souza EGFR-NON AF AFGHAN >60 Normal >=60 [facility] Comment on above: Performed By: #### T SH, CMP, HSTROPN, LIPA, KELLE #### [facility] [address] [place] [address] Dr. Saray Souza Globulin (S) [Mass/Vol] 3.0 g/dL Normal [facility] Comment on above: Performed By: #### T SH, CMP, HSTROPN, LIPA, KELLE #### [facility] [address] [place] [address] Dr. Saray Souza Glucose [Mass/Vol] 97 mg/dL Normal 74-106 [facility] Comment on above: Performed By: #### T SH, CMP, HSTROPN, LIPA, KELLE #### [facility] [address] [place] [address] Dr. Saray Souza Potassium [Moles/Vol] 3.8 mmol/L Normal 3.5-5.1 [facility] Comment on above: Performed By: #### T SH, CMP, HSTROPN, LIPA, KELLE #### [facility] [address] [address] [address] Saray Souza Protein [Mass/Vol] 6.5 g/dL Normal 6.4-8.2 [facility] Comment on above: Performed By: #### T SH, CMP, HSTROPN, LIPA, KELLE #### [facility] [address] [address] [address] Saray Souza Sodium [Moles/Vol] 138 mmol/L Normal 136-145 [facility] Comment on above: Performed By: #### T SH, CMP, HSTROPN, LIPA, KELLE #### [facility] [address] [place] [address] Dr. Saray Souza Urea nitrogen [Mass/Vol] 13.0 mg/dL Normal 7.0-18.0 [facility] Comment on above: Performed By: #### T SH, CMP, HSTROPN, LIPA, KELLE #### [facility] [address] [address] [address] Saray Souza Urea nitrogen/Creatinine [Mass ratio] 19.4 mg/mg Normal [facility] Comment on above: Performed By: #### T SH, CMP, HSTROPN, LIPA, KELLE #### [facility] [address] [place] [address] Dr. Saray Souza TROPONIN, HIGH SENSITIVITYon 02-04-2023 HSTROP 4.0 pg/mL Normal 4.0-51.3 [facility] Comment on above: Result Comment: CUT- OFF POINTS HAVE BEEN ESTABLISHED BASED ON THE FOURTH UNIVERSAL DEFINITIONS OF MYOCARDIAL INFARCTION. THE UPPER REFERENCE LIMIT (URL) OF TROPONIN, DEFINED THE 99TH PERCENTILE OF cTnI DISTRIBUTION IN A REFERENCE POPULATION, HAS BEEN CONFIRMED THE DECISION THRESHOLD FOR TX DIAGNOSIS. Performed By: #### T SH, CMP, HSTROPN, LIPA, KELLE #### [facility] [address] [place] [address] Dr. Saray Souza TSHon 02-04-2023 TSH 2.478 uIU/mL Normal 0.358-3.740 [facility] Comment on above: Performed By: #### T SH, CMP, HSTROPN, LIPA, KELLE #### [facility] [address] [place] [address] Dr. Saray Souza URINE MICROSCOPIC ONLYon BACTERIA MODERATE Abnormal NONE SEEN [facility] Comment on above: Performed By: #### C BC #### [facility] [address] [place] [address] Dr. Saray Souza Bacteria identified Cx Nom (U) INDICATED Normal [facility] Comment on above: Performed By: #### C BC #### [facility] [address] [place] [address] Dr. Saray Souza CAST NONE SEEN Normal NONE SEEN [facility] Comment on above: Performed By: #### C BC #### [facility] [address] [place] [address] Dr. Saray Souza Crystals LM Nom (Urine sed) NONE SEEN Normal NONE SEEN [facility] Comment on above: Performed By: #### C BC #### [facility] [address] [place] [address] Dr. Saray Souza Epithelial cells LM Ql (Urine sed) MODERATE Abnormal NONE SEEN /RARE [facility] Comment on above: Performed By: #### C BC #### [facility] [address] [place] [address] Dr. Saray Souza MUCOUS NONE SEEN Normal NONE SEEN [facility] Comment on above: Performed By: #### C BC #### [facility] [address] [place] [address] Dr. Saray Souza RBC 5-10 Abnormal 0-2 [facility] Comment on above: Performed By: #### C BC #### [facility] [address] [place] [address] Dr. Saray Souza WBC 10-20 Abnormal NONE SEEN [facility] Comment on above: Performed By: #### C BC #### [facility] [address] [place] [address] Dr. Saray Souza Covid-19 PCR (CVDTB)on 09-24 SARS-CoV-2 (COVID-19) RNA DAYDAY+probe Ql (Unsp spec) Not detected Normal NOT DETECTED [facility] Comment on above: Result Comment: When [...] for this test is supported by the Patching Machine Operator of Health and Human Service's declaration [...] used). Performed By: #### C BC #### [facility] [address] [place] [address] Dr. Saray Souza INFLUENZA A AND B [facility] 10[facility] BEL[facility] Normal [facility] Comment on above: Result Comment: Nega tive for Flu A protein angiten. Infection due to Flu A cannot be ruled out. Flu A angiten in the sample may be below the detection limit of the test. Performed By: #### C BC #### [facility] [address] [place] [address] Dr. Saray Sou[facility] Normal [facility] Comment on above: Result Comment: Nega tive for Flu B protein antigen. Infection due to Flu B cannot be ruled out. Flu B antigen in the sample may be below the detection limit of the test. Performed By: #### C BC #### [facility] [address] [place] [address] Dr. Saray Souza INFLUENZA A AG Negative Normal NEGATIVE SEE COMMENT [facility] Comment on above: Performed By: #### C BC #### [facility] [address] [place] [address] Dr. Saray Souza INFLUENZA B AG Negative Normal NEGATIVE SEE COMMENT [facility] Comment on above: Performed By: #### C BC #### [facility] [address] [address] [address] Saray Souza INTERNAL CONTROLS Within Normal Limits Normal Wi thin Normal Limits [facility] Comment on above: Performed By: #### C BC #### [facility] [address] [place], [place] [address] Dr. Saray Souza STREPT SCREENon 10-20-2022 STREP SCREEN A Positive Abnormal NEGATIVE [facility] Comment on above: Performed By: #### C BC #### [facility] [address] [place], [place] [address] Dr. Saray Souza XR SHOULDER RT INJon [...] ADRIANA MENDEZ Date: 2022-07-18 17:05 Normal [facility] MRI SHOULDER RT WO CONon MRI [...] ARTHRO SHLD RTon 07-10-20 22 XR ARTHRO [facility] RT EXAMINATION: XR ARTHRO LD RT HISTORY: Impingement syndrome of right shoulder [...] ADRIANA MENDEZ Date: 2022-07-10 10:01 Normal [facility] No Panel Informationon 03-18 Right Eye Reliability was good. Findings include normal observations. Left Eye Reliability was good. Findings include normal observations. Notes I personally reviewed the visual zaldivar performed by this patient on 03/18/22. The visual zaldivar are normal OU with good fixation. 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 Francisco Ayers MD Normal [facility] Vital Signs Date Time Vital Sign Value Performing Clinician Facility 05-17-2025 14:18-0400 Body mass index (BMI) [Ratio] 47.1 kg/m2 Kelle BAE Work Phone: [facility] 05-17-2025 14:18-0400 Body weight 148.89 kg Kelle BAE Work Phone: [facility] 05-17-2025 14:18-0400 Diastolic blood pressure 96 mm[Hg] Kelle BAE Work Phone: [facility] 05-17-2025 14:18-0400 Systolic blood pressure 130 mm[Hg] Kelle BAE Work Phone: [facility] 2025 15:04-0400 Body mass index (BMI) [Ratio] 47.06 kg/m2 Graham Dante DO Work Phone: [facility] 2025 15:04-0400 Body weight 148.78 kg Graham Dante DO Work Phone: [facility] 2025 15:04-0400 Diastolic blood pressure 86 mm[Hg] Graham Dante DO Work Phone: [facility] 2025 15:04-0400 Systolic blood pressure 132 mm[Hg] Graham Dante DO Work [facility] [facility] 04-27-2025 13:06-0400 Body mass index (BMI) [Ratio] 46.85 kg/m2 Kelle BAE Work Phone: [facility] 04-27-2025 13:06-0400 Body weight 148.1 kg Kelle BAE Work Phone: [facility] 04-27-2025 13:06-0400 Diastolic blood pressure 90 mm[Hg] Kelle BAE Work Phone: [facility] 04-27-2025 13:06-0400 Systolic blood pressure 124 mm[Hg] Kelle BAE Work Phone: [facility] 04-12-2025 14:56-0400 Body mass index (BMI) [Ratio] 46.96 kg/m2 Graham Dante DO Work Phone: [facility] 04-12-2025 14:56-0400 Body weight 148.44 kg Graham Dante DO Work Phone: [facility] 04-12-2025 14:56-0400 Diastolic blood pressure 82 mm[Hg] Graham Dante DO Work Phone: [facility] 04-12-2025 14:56-0400 Systolic blood pressure 130 mm[Hg] Graham Dante DO Work Phone: [facility] 03-29-2025 15:44-0400 Body mass index (BMI) [Ratio] 45.99 kg/m2 Kelle Melany PA Work Phone: [facility] 03-29-2025 15:44-0400 Body weight 145.38 kg Kelle Melany PA Work Phone: [facility] 03-29-2025 15:44-0400 Diastolic blood pressure 84 mm[Hg] Kelle Melany PA Work Phone: [facility] 03-29-2025 15:44-0400 Systolic blood pressure 120 mm[Hg] Kelle Olton PA Work Phone: [facility] 03-15-2025 15:24-0400 Body mass index (BMI) [Ratio] 46.2 kg/m2 Graham Adnte DO Work Phone: [facility] 03-15-2025 15:24-0400 Body weight 146.06 kg Graham Dante DO Work Phone: [facility] 03-15-2025 15:24-0400 Diastolic blood pressure 74 mm[Hg] Graham Dante DO Work Phone: [facility] 03-15-2025 15:24-0400 Systolic blood pressure 110 mm[Hg] Rgaham Dante DO Work Phone: [facility] 01-04-2025 16:08-0500 Body mass index (BMI) [Ratio] 45.77 kg/m2 Kelle Olton PA Work Phone: [facility] 01-04-2025 16:08-0500 Body weight 144.7 kg Kelle Olton PA Work Phone: [facility] 01-04-2025 16:08-0500 Diastolic blood pressure 78 mm[Hg] Kelle Melany PA Work Phone: [facility] 01-04-2025 16:08-0500 Systolic blood pressure 120 mm[Hg] Kelle Olton PA Work Phone: [facility] 12-27-2024 09:53-0500 Body mass index (BMI) [Ratio] 45.69 kg/m2 Kelle Melany PA Work Phone: [facility] 12-27-2024 09:53-0500 Body weight 144.43 kg Kelle Olton PA Work Phone: [facility] 12-27-2024 09:53-0500 Diastolic blood pressure 78 mm[Hg] Kelle Olton PA Work Phone: [facility] 12-27-2024 09:53-0500 Systolic blood pressure 130 mm[Hg] Kelle Olton PA Work Phone: [facility] 12-05-2024 15:49-0500 Body mass index (BMI) [Ratio] 45.92 kg/m2 Graham Dante DO Work Phone: [facility] 12-05-2024 15:49-0500 Body weight 145.15 kg Graham Dante DO Work Phone: [facility] 12-05-2024 15:49-0500 Diastolic blood pressure 70 mm[Hg] Graham Dante DO Work Phone: [facility] 12-05-2024 15:49-0500 Systolic blood pressure 120 mm[Hg] Graham Dante DO Work Phone: [facility] 12-02-2024 19:42-0500 Diastolic blood pressure 80 mm[Hg] Nic Estevez MD Work Phone: [facility] 12-02-2024 19:42-0500 Systolic blood pressure 122 mm[Hg] Nic Estevez MD Work Phone: [facility] 12-02-2024 19:40-0500 Body temperature 99.39 [degF] Nic Estevez MD Work Phone: [facility] 12-02-2024 19:38-0500 Heart rate 105 /min Nic Estevez MD Work Phone: [facility] 12-02-2024 19:38-0500 Respiratory rate 18 /min Nic Estevez MD Work Phone: [facility] 12-02-2024 19:38-0500 SaO2% (BldA) [Mass fraction] 99 % Nic Estevez MD Work Phone: [facility] 11-03-2024 13:25-0500 Body mass index (BMI) [Ratio] 46.4 kg/m2 [facility] Nurse [facility] 11-03-2024 13:25-0500 Body weight 146.69 kg [facility] Nurse [facility] 08-29-2024 10:53-0400 Body mass index (BMI) [Ratio] 45.89 kg/m2 Kelle BAE Work Phone: [facility] 08-29-2024 10:53-0400 Body weight 145.06 kg Kelle BAE Work Phone: [facility] 08-29-2024 10:53-0400 Diastolic blood pressure 70 mm[Hg] Kelle BAE Work Phone: [facility] 08-29-2024 10:53-0400 Systolic blood pressure 120 mm[Hg] Kelle BAE Work Phone: [facility] 07-26-2024 08:36-0400 Body height 177.8 cm Kelle BAE Work Phone: [facility] 07-26-2024 08:36-0400 Body mass index (BMI) [Ratio] 46.06 kg/m2 Kelle Melany KATHIA Work Phone: [facility] 07-26-2024 08:36-0400 Body weight 145.6 kg Kelle Mosley PA Work Phone: [facility] 07-26-2024 08:36-0400 Diastolic blood pressure 84 mm[Hg] Kelle Enriquezey PA Work Phone: [facility] 07-26-2024 08:36-0400 Systolic blood pressure 130 mm[Hg] Kelle Mosley PA Work Phone: [facility] 2024 09:04-0400 Blood Pressure Location JANNETH MADRIGALRY [facility] 2024 09:04-0400 Diastolic blood pressure 82 mm[Hg] JANNETH EMILIANA [facility] 2024 09:04-0400 Heart rate 74 /min JANNETH EMILIANA [facility] 2024 09:04-0400 Respiratory rate 16 /min JANNETH EMILIANA [facility] 2024 09:04-0400 Systolic blood pressure 125 mm[Hg] JANNETH EMILIANA [facility] 03-08-2024 14:09-0400 Blood Pressure Location Yonis FORDL [facility] 03-08-2024 14:09-0400 Diastolic blood pressure 84 mm[Hg] Yonis NILL [facility] 03-08-2024 14:09-0400 Heart rate 76 /min Yonis NILL [facility] 03-08-2024 14:09-0400 Respiratory rate 16 /min Yonis MIRANDA [facility] [place] 03-08-2024 14:09-0400 Systolic blood pressure 118 mm[Hg] Yonis MIRANDA [facility] [place] 01-19-2024 09:34-0500 Blood Pressure Location JANNETH SMITH [facility] 01-19-2024 09:34-0500 Diastolic blood pressure 84 mm[Hg] JANNETH SMITH [facility] 01-19-2024 09:34-0500 Heart rate 80 /min JANNETH SMITH [facility] 01-19-2024 09:34-0500 Respiratory rate 16 /min JANNETH SMITH [facility] 01-19-2024 09:34-0500 Systolic blood pressure 132 mm[Hg] JANNETH SMITH [facility] 12-02-2023 08:40-0500 Body height 180.34 cm Taniya Mary Grace Other [facility] Other 12-02-2023 08:40-0500 Body mass index (BMI) [Ratio] 45.1 kg/m2 Taniya Mary Grace Other [facility] Other 12-02-2023 08:40-0500 Body temperature 97.5 [degF] Taniya Mary Grace Other [facility] Other 12-02-2023 08:40-0500 Body weight 146.69 kg Taniya Mary Grace Other [facility] Other 12-02-2023 08:40-0500 Diastolic blood pressure 83 mm[Hg] Taniya Mary Grace Other [facility] Other 12-02-2023 08:40-0500 Respiratory rate 18 /min Taniya Mary Grace Other [facility] Other 12-02-2023 08:40-0500 SaO2% (BldA) [Mass fraction] 98 % Taniya Mary Grace Other [facility] Other 12-02-2023 08:40-0500 Systolic blood pressure 136 mm[Hg] Taniya Mary Grace Other [facility] Other 11-19-2021 15:30-0500 Body height 180.34 cm Nandini Pantoja Other [facility] Other 11-19-2021 15:30-0500 Body mass index (BMI) [Ratio] 41.56 kg/m2 Nandini Pantoja Other [facility] Other 11-19-2021 15:30-0500 Body weight 135.17 kg Nandini Pantoja Other [facility] Other 11-19-2021 15:30-0500 Diastolic blood pressure 76 mm[Hg] Nandini Pantoja Other [facility] Other 11-19-2021 15:30-0500 Systolic blood pressure 128 mm[Hg] Nandini Pantoja Other [facility] Other Encounters Encounter Date Encounter Type Care Provider Facility Start: 05-17-2025 End: 05-17-2025 Jose BAE Work Phone: [facility] Start: 05-17-2025 End: 05-17-2025 Bamboo flowsheet Kelle BAE Work Phone: [facility] Start: 05-17-2025 End: 05-17-2025 Clinisync Result Encounter Kelle BAE Work Phone: [facility] External Department Unsolicited Start: 05-17-2025 End: 05-17-2025 Office outpatient visit 15 minutes Kelle BAE Work Phone: [facility] Comment on above: Third trimester preg mat ([facility]); 37 weeks gestation of ([facility]); Polyhydramnios affecting in third trimester ([facility]); H/O herpes zoster virus; induced hypertension, antepartum ([facility]); -induced hypertension in third trimester ([facility]) Start: 05-17-2025 End: 05-17-2025 ambulatory KELLE MOSLEY Not Available Start: 05-15-2025 End: 05-15-2025 Clinisync Result Encounter Graham Dante DO Work Phone: [facility] External Department Unsolicited Start: 05-15-2025 End: 05-15-2025 Clinisync Result Encounter Graham Dante DO Work Phone: [facility] External Department Unsolicited Start: 2025 End: 2025 Office outpatient visit 15 minutes Graham Dante DO Work Phone: [facility] Comment on above: Third trimester preg mat ([facility]); 36 weeks gestation of ([facility]) Start: 2025 End: 2025 ambulatory GRAHAM DANTE Not Available Start: 2025 End: 2025 Bamboo flowsheet Graham Dante DO Work Phone: [facility] Start: 2025 End: 2025 Bamboo flowsheet Graham Dante DO Work Phone: [facility] Start: 05-08-2025 End: 05-08-2025 Clinisync [...] visit 15 minutes Kelle BAE Work Phone: [facility] Comment on above: Herpes zoster with c omplication (Primary Dx); 30 weeks gestation of ; Third trimester Start: 03-29-2025 End: 03-29-2025 Bamboo flowsheet Kelle BAE Work Phone: [facility] Start: 03-29-2025 End: 03-29-2025 Bamboo flowsheet Kelle BAE Work Phone: [facility] Start: 03-15-2025 End: 03-15-2025 ambulatory GRAHAM DANTE Not Available Start: 03-15-2025 End: 03-15-2025 Office outpatient visit 15 minutes Graham Dante DO Work Phone: [facility] Comment on above: Third trimester preg mat; 28 weeks gestation of ; H/O herpes zoster virus Start: 03-15-2025 End: 03-15-2025 Bamboo flowsheet Graham Dante DO Work Phone: [facility] Start: 03-15-2025 End: 03-15-2025 Bamboo flowsheet Graham Dante DO Work Phone: [facility] Start: 03-06-2025 End: 03-06-2025 Clinisync Result Encounter Graham Dante DO Work Phone: [facility] External Department Unsolicited Start: 03-06-2025 End: 03-06-2025 Clinisync Result Encounter Graham Dante DO Work Phone: [facility] External Department Unsolicited Start: 02-06-2025 End: 02-06-2025 ambulatory GRAHAM DANTE Not Available Start: 01-23-2025 End: 01-23-2025 ambulatory KELLE MOSLEY Not Available Start: 01-04-2025 End: 01-04-2025 Office outpatient visit 15 minutes Kelle BAE Work Phone: [facility] Comment on above: Second trimester pre gnancy; 18 weeks gestation of ; Headache in , antepartum Start: 01-04-2025 End: 01-04-2025 ambulatory KELLE MOSLEY Not Available Start: 01-04-2025 End: 01-04-2025 Bamboo flowsheet Kelle BAE Work Phone: [facility] Start: 01-04-2025 End: 01-04-2025 Bamboo flowsheet Kelle BAE Work Phone: [facility] Start: 12-27-2024 End: 12-27-2024 Bamboo flowsheet Kelle BAE Work Phone: [facility] Start: 12-27-2024 End: 01-01-2025 Bamboo flowsheet Kelle BAE Work Phone: [facility] Start: 12-27-2024 End: 01-01-2025 Clinisync Result Encounter Kelle BAE Work Phone: [facility] External Department Unsolicited Start: 12-27-2024 End: 12-27-2024 Patient encounter procedure Kelle BAE Work Phone: [facility] Start: 12-27-2024 End: 12-27-2024 Periodic preventive med est patient 18-39 yrs Kelle BAE Work Phone: [facility] Comment on above: 17 weeks gestation o f ; Second trimester ; Screening, , for anatomic survey; Exposure to STD; Vaginal discharge; Well woman exam with routine gynecological exam; Sinus congestion Start: 12-27-2024 End: 12-27-2024 ambulatory KELLE MOSLEY Not Available Start: 12-23-2024 End: 12-23-2024 Clinisync Result Encounter Graham Dante DO Work Phone: [facility] External Department Unsolicited Start: 12-23-2024 End: 12-23-2024 Clinisync Result Encounter Graham Dante DO Work Phone: [facility] External Department Unsolicited Start: 12-05-2024 End: 12-05-2024 [...] patient visit Nic Estevez MD Work Phone: [facility] Comment on above: Abdominal cramping, bilateral lower quadrant (Primary Dx) Start: 11-25-2024 End: 11-25-2024 ambulatory JANNETH SMITH Facility:[facility] Start: 11-25-2024 End: 11-25-2024 Patient encounter procedure JANNETH SMITH [facility] Start: 11-03-2024 End: 11-03-2024 Office outpatient visit 5 minutes [facility] Dante Nurse [facility] Comment on above: GA: 9w3d Start: 11-03-2024 End: 11-03-2024 ambulatory KELLE MELANY Not Available Start: 10-27-2024 End: 10-27-2024 ambulatory JANNETH SMITH Facility:[facility] Start: 10-27-2024 End: 10-27-2024 Patient encounter procedure JANNETH SMITH [facility] Start: 09-28-2024 End: 09-28-2024 Clinisync Result Encounter Graham Dante DO Work Phone: [facility] Unsolicited Start: 09-28-2024 End: 09-28-2024 Clinisync Result Encounter Graham Dante DO Work Phone: [facility] External Department Unsolicited Start: 08-29-2024 End: 08-29-2024 Bamboo flowsheet Kelle Melany PA Work Phone: [facility] Start: 08-29-2024 End: 08-29-2024 Bamboo flowsheet Kelle Melany PA Work Phone: [facility] Start: 08-29-2024 End: 08-29-2024 Office outpatient visit 15 minutes Kelle Olton PA Work Phone: [facility] Comment on above: Encounter for weight management Start: 08-29-2024 End: 08-29-2024 ambulatory KELLE MOSLEY Not Available Start: 07-26-2024 End: 07-26-2024 Bamboo flowsheet Kelle Melany PA Work Phone: [facility] Start: 07-26-2024 End: 07-26-2024 Bamboo flowsheet Kelle Olton PA Work Phone: [facility] Start: [...] Start: 2024 End: 2024 ambulatory Yonis MIRANDA Facility:[facility] Start: 2024 End: 2024 Patient encounter procedure JANNETH SMITH [facility] Start: 04-27-2024 End: 04-27-2024 ambulatory MD Melodie Ashton Work Phone: [facility] Work Phone: Start: 04-27-2024 End: 04-27-2024 Departed Referred MD Melodie Ashton Work Phone: [facility] [place] [facility] Start: 04-27-2024 End: 04-27-2024 ambulatory Yonis R NILL Facility::[id number] Start: 03-08-2024 End: 03-08-2024 ambulatory Yonis R NILL Facility: [place] Start: 03-08-2024 End: 03-08-2024 Patient encounter procedure Yonis R NILL General Surgery [facility] Start: 02-09-2024 End: 02-09-2024 ambulatory Dieter REMY [facility] Start: 02-09-2024 End: 02-09-2024 Patient encounter procedure [facility] Start: 01-19-2024 End: 01-19-2024 ambulatory JANNETH SMITH [facility] Start: 01-19-2024 End: 01-19-2024 Lab Drop off J[facility]H SM[facility] Start: 01-19-2024 End: 01-19-2024 ambulatory JANNETH SMITH Facility: [place] Start: 01-19-2024 End: 01-19-2024 Patient encounter procedure JANNETH SMITH [facility] Start: 12-31-2023 ambulatory Yonis NILL Facility:[facility] Start: 12-17-2023 End: 12-17-2023 ambulatory Taniya Brody Other [facility] Other Start: 12-17-2023 Office outpatient vi sit 15 minutes Taniya Mary Grace [facility] Start: 12-07-2023 End: 12-07-2023 ambulatory Taniya Mary Grace Other [facility] Other Start: 12-07-2023 Telephone encounter Taniya Mary Grace [facility] Start: 12-02-2023 End: 12-02-2023 ambulatory Taniya Mary Grace Other [facility] Other Start: 12-02-2023 Office outpatient ne w 30 minutes Taniya Mary Grace [facility] Start: 04-17-2023 End: 04-17-2023 ambulatory SALMA DIAB . Facility:[facility] Start: 04-06-2023 End: 04-07-[address] MELODIE ASHTON . Facility:[facility] Start: 04-04-2023 Encounter for genera l adult medical examination without abnormal findings DR MELODIE ASHTON . [facility] Start: 04-03-2023 End: 04-04-[address] [...] Facility:[facility] Start: 08-05-2022 End: 08-05-2022 ambulatory JETHRO GRIFFTIH Facility:[facility] Start: 07-18-2022 End: 07-18-[address] MELODIE ASHTON . Facility:[facility] Start: 07-10-2022 End: 07-10-[address] MELODIE ASHTON . Facility:[facility] Start: 06-03-2022 End: 06-24-[address] MELODIE ASHTON . Facility:[facility] Start: 05-13-2022 End: 05-14-[address] MELODIE ASHTON . Facility:[facility] Start: 03-18-2022 End: 03-18-2022 ambulatory UNKNOWN PROVIDER Facility:[facility] Start: 11-19-2021 End: 11-19-2021 ambulatory Nandini Pantoja Other [facility] Other Start: 11-19-2021 Office outpatient ne w 30 minutes Nandini Pantoja [facility] Procedures Date Procedure Procedure Detail Performing Clinician Start: 05-17-2025 US OB BPP W NON-STRESS Graham Dante DO Work Phone: Start: 05-17-2025 ALL CBC WITH AUTO DIFF Kelle BAE Work Phone: Start: 05-15-2025 US OB BPP W NON-STRESS Graham Dante DO Work Phone: Start: 2025 Urnls dip stick/tabl et rgnt non-auto w/o micrscp Graham Dante DO Work Phone: Start: 05-08-2025 US OB BPP W NON-STRESS Graham Dante DO Work Phone: Start: 04-27-2025 Urnls dip stick/tabl et rgnt non-auto w/o micrscp Kelle BAE Work Phone: Start: 04-25-2025 TBH UA (CLEAN/CATCH) BINDERY TECHNICIAN/MICRO IF IND. Graham Dante DO Work Phone: Start: 04-12-2025 Urnls dip stick/tabl et rgnt non-auto w/o micrscp Graham Dante DO Work Phone: Start: 03-29-2025 Urnls dip stick/tabl et rgnt non-auto w/o micrscp Kelle BAE Work Phone: Start: 03-15-2025 Urnls dip stick/tabl et rgnt non-auto w/o micrscp Graham Dante DO Work Phone: Start: 03-06-2025 ALL CBC [...] micrscp Graham Howell DO Work Phone: Start: 12-02-2024 Us uterus [...] (Primary Dx) Start: 10-02-2021 Laparoscopic cholecystectomy JANNETH EMILIANA Start: 12-20-2018 Microscopic observat ion [Identifier] in [...] Screening for malign ant neoplasm of cervix [facility] Start: 12-27-2027 Screening for malign ant neoplasm of cervix Pap Smear [facility] Start: 07-24-2025 Influenza vaccination Influenz a Vaccine (Season Ended) [facility] Start: 05-24-2025 End: 05-24-2025 Patient encounter procedure 05/24/2025 2:00 PM EDT Routine [facility] [address] [place] [id number] Graham Howell, DO [address] [place] [address] [facility] Start: 05-17-2025 End: 05-17-2026 Alanine aminotransferase [Enzymatic activity/volume] in Serum or Plasma ALT Lab Routine induced hypertension, antepartum ([facility]) Expected: 05/17/2025 (Approximate), Expires: 05/17/2026 [facility] Comment on above: Expected: 05/17/2025 (Approximate), Expires: 05/17/2026 Start: 05-17-2025 End: 05-17-2026 Aspartate aminotransferase [Enzymatic activity/volume] in Serum or Plasma AST Lab Routine induced hypertension, antepartum ([facility]) Expected: 05/17/2025 (Approximate), Expires: 05/17/2026 [facility] Comment on above: Expected: 05/17/2025 (Approximate), Expires: 05/17/2026 Start: 05-17-2025 End: 05-17-2026 CBC W Auto Differential panel - Blood CBC and differential Lab Routine induced hypertension, antepartum ([facility]) Expected: 05/17/2025 (Approximate), Expires: 05/17/2026 [facility] Comment on above: Expected: 05/17/2025 (Approximate), Expires: 05/17/2026 Start: 05-17-2025 End: 05-17-2026 Creatinine [Mass/volume] in Serum or Plasma Creatinine Lab Routine induced hypertension, antepartum ([facility]) Expected: 05/17/2025 (Approximate), Expires: 05/17/2026 [facility] Work Phone: Comment on above: Expected: 05/17/2025 (Approximate), Expires: 05/17/2026 Start: 05-17-2025 End: 05-17-2026 Lactate dehydrogenase [Enzymatic activity/volume] in Serum or Plasma by Lactate to pyruvate reaction Lactate dehydrogenase Lab Routine induced hypertension, antepartum ([facility]) Expected: 05/17/2025, Expires: 05/17/2026 [facility] Comment on above: Expected: 05/17/2025 , Expires: 05/17/2026 Start: 05-17-2025 End: 05-17-2026 Protein, urine, 24 hour Protein, urine, 24 hour Lab Routine induced hypertension, antepartum ([facility]) Expected: 05/17/2025 (Approximate), Expires: 05/17/2026 [facility] Comment on above: Expected: 05/17/2025 (Approximate), Expires: 05/17/2026 Start: 05-17-2025 End: 05-17-2026 Pt and ptt Pt and ptt Lab Routine induced hypertension, antepartum ([facility]) Expected: 05/17/2025, Expires: 05/17/2026 [facility] Comment on above: Expected: 05/17/2025 , Expires: 05/17/2026 Start: 05-17-2025 End: 05-17-2026 Urate [Mass/volume] in Serum or Plasma Uric acid Lab Routine induced hypertension, antepartum ([facility]) Expected: 05/17/2025 (Approximate), Expires: 05/17/2026 [facility] Comment on above: Expected: 05/17/2025 (Approximate), Expires: 05/17/2026 Start: 05-17-2025 End: 05-17-2026 Urea nitrogen [Mass/volume] in Serum or Plasma BUN Lab Routine induced hypertension, antepartum ([facility]) Expected: 05/17/2025, Expires: 05/17/2026 [facility] Comment on above: Expected: 05/17/2025 , Expires: 05/17/2026 Start: 05-17-2025 End: 05-17-2025 Patient encounter procedure [facility] Comment on above: Arrived Start: 2025 End: 2025 Patient encounter procedure [facility] Comment on above: Arrived Start: 2025 End: 2026 CULTURE, GROUP B STREP WITH SUSCEPTIBLITY CULTURE, GROUP B STREP WITH SUSCEPTIBLITY Lab Routine Third trimester ([facility]) Expected: 2025, Expires: 2026 [facility] Work Phone: Comment on above: [...] Routine [facility] [address] [place] [address] Kelle Mosley PA [address] [place] [address] [facility] Start: 03-08-2025 End: 03-08-2025 Patient encounter procedure 03/08/2025 3:30 PM EDT Routine [facility] [address] [place] [address] Kelle Mosley PA [address] [place] [address] [facility] Start: 02-06-2025 End: 02-06-2025 Patient encounter procedure 02/06/2025 3:10 PM EDT Routine [facility] [address] [place] [address] Graham Howell DO [address] [place], [place] [id number] [facility] Start: 01-23-2025 End: 01-23-2025 Professional / ancillary services management 01/23/2025 11:00 AM EST Ancillary Procedure [facility] [address] [place] [address] [facility] Start: 01-04-2025 End: [...] AM EST Routine [facility] [address] [place] [address] Kelle Mosley PA [address] [place], [place] [id number] Arrived [facility] Comment on above: Arrived Start: 12-05-2024 End: 12-05-2024 Patient encounter procedure [facility] Comment on above: Arrived Start: 11-28-2024 End: 11-28-2024 Patient encounter procedure 11/28/2024 9:30 AM EST Office Visit [facility] [address] [place] [id number] Kelle Mosley PA [address] [place] [address] [facility] Start: 11-03-2024 End: 11-03-2025 ABO/Rh ABO/Rh Lab Routine Missed menses , unspecified gestational age Expected: 11/03/2024 (Approximate), Expires: 11/03/2025 [facility] Comment on above: Expected: 11/03/2024 (Approximate), Expires: 11/03/2025 Start: 11-03-2024 End: 11-03-2025 Blood type and Indirect antibody screen panel - Blood Type and screen Lab Routine Missed menses , unspecified gestational age Expected: 11/03/2024 (Approximate), Expires: 11/03/2025 [facility] Work Phone: Comment on above: Expected: 11/03/2024 (Approximate), Expires: 11/03/2025 Start: 11-03-2024 End: 11-03-2025 Drugs of abuse panel - Urine by Screen method Rapid drug screen, urine Lab Routine , unspecified gestational age Encounter for supervision of normal first in first trimester Expected: 11/03/2024 (Approximate), Expires: 11/03/2025 [facility] Comment on above: Expected: 11/03/2024 (Approximate), Expires: 11/03/2025 Start: 11-03-2024 End: 11-03-2024 ambulatory 11/03/2024 1:00 PM EST Initial [facility] [address] [place] [phone] [facility] Start: 11-03-2024 End: 11-03-2024 Professional / ancillary services management 11/03/2024 12:30 PM EST Ancillary Procedure [facility] [address] [place] [phone] [facility] Start: 08-29-2024 End: 08-29-2024 Patient encounter procedure 08/29/2024 10:50 AM EDT Office Visit [facility] [address] [place] [phone] Kelle Mosley PA [address] [place], [place] [id number] Arrived [facility] Comment on above: Arrived Start: 07-26-2024 End: 07-26-2024 Patient encounter procedure 07/26/2024 8:30 AM EDT Office Visit [facility] [address] [place] [phone] Kelle Mosley PA [address] [place] [address] Arrived [facility] Comment on above: Arrived Start: 07-24-2024 COVID-19 Vaccine ( season) COVID-19 Vaccine ( season) [facility] Start: 07-24-2024 Influenza vaccination Influenza Vacc ine (#1) [facility] Start: 06-23-2024 Influenza vaccination Flu vaccine (# 1) [facility] Start: 2023 Screening for malign ant neoplasm of cervix [facility] Start: 12-20-2021 Screening for malign ant neoplasm of cervix Pap smear [facility] Start: 2014 Screening for malign ant neoplasm of cervix Pap Smear [facility] Start: 2012 DTaP/Tdap/Td vaccine (1 - Tdap) DTaP/Tdap/Td vaccine (1 - Tdap) [facility] Start: 2012 Hepatitis B vaccine (1 of - 19+ 3-dose series) Hepatitis B vaccine (1 of - 19+ 3-dose series) [facility] Start: 2011 Hepatitis C screening [facility] Start: 2011 Tetanus + diphtheria + acellular pertussis vaccine (product) Tdap [facility] Start: 2008 HIV screening HIV Test [facility] Start: 2006 Varicella vaccine (1 of 2 - 13+ 2-dose series) Varicella vaccine (1 of 2 - 13+ 2-dose series) [facility] Start: 2005 Depression Screen Depression Screen [facility] Start: 1998 COVID-19 Vaccine (1) COVID-19 Vaccin e (1) [facility] Bacteria identified in Urine by Culture Urine culture Microbiology Routine Missed menses Ordered: 11/03/2024 [facility] Comment on above: Ordered: 11/03/2024 CBC W Auto Different ial panel - Blood CBC and differential Lab Routine Missed menses , unspecified gestational age Ordered: 11/03/2024 [facility] Comment on above: Ordered: 11/03/2024 CHLAMYDIA TRACHOMATI S (GENITO/STI)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
[2025-05-19 08:09] LABS: Total Protein Urine Random 20.4 mg/dL (<=11.9)
[2025-05-19 08:19] LABS: Total Protein 24 Hour Urine 285.6 mg/24hr (<=149.1); Total Volume 24 Hour Urine 1400 mL/24hr
== END 2025-05-19 06:57 | disposition home or self-care (01) ==
LOC: LAB 06:56
PROVIDERS: PCP Family Medicine; Visit Provider Physician Assistant
DX: O13.9 Gestational [pregnancy-induced] hypertension without significant proteinuria, unspecified trimester (principal)
CPT/HCPCS: 84156

== ENCOUNTER 2025-05-20 08:52 | Outpatient (OUT) | payer OTHER, SELFPAY ==
--- NOTE | 2025-05-20 | US_ITS ---
The [address] [address] Patient Name: ROSALIE FREEMAN MRN: [facility]:[id number] date: 1995 Sex: F Assigned Patient Location: [facility] Current Patient Location: [facility] Accession/Order Number: [id number] Exam Date: 05/22/2025 08:20 Report Date: 05/22/2025 08:21 At the request of: NON-STAFF PHYSICIAN MD Procedure: US OB BPP w non-stress BIOPHYSICAL PROFILE: CLINICAL INFORMATION: INCREASED BLOOD PRESSURE DURING COMPARISON: 05/17/2025 There is a single live intrauterine gestation in cephalic presentation. The reported gestational age is 37 weeks 5 days. The heart rate [id number] beats per minute. FINDINGS: TONE: 1 or more episodes of activity extension and flexion of extremity or opening and closing of the hand [Y] 2/2 GROSS BODY MOVEMENTS: 3 or more discrete body or limb movements [Y] 2/2 BREATHING MOVEMENTS: 1 or more episodes of breathing lasting at least 30 seconds [Y] 2/2 BRISEYDA: A single deepest vertical pocket of amniotic fluid greater than 2 cm [Y] 2/2 BRISEYDA: 22.9 cm. The 95th percentile is approximately 24 cm. Total score: 06/30 US/US OB BPP w non-stress IMPRESSION: NORMAL BIOPHYSICAL PROFILE Impression dictated by: Tangela Ellis M.D. 05/22/2025 8:21 AM Dictation Location: [place] [address] Electronically authenticated by: [id number] Y Date: 05/22/2025 08:21
--- OUTSIDE RECORDS SUMMARY | 2025-05-20 08:55 | XMS_ITS | CCD ---
Author Organization [facility] Care Team Providers Care Rubber Splicer Name Role Phone Unavailable Primary Care Provider [...] Unavailable HOY ., DR SEWELL Admkaty Unavailable SULLIVAN, DR NANDINI Stafford Consulting Unavailable HOY ., [...] Physician MD Melodie Ashton Primary Care Provider [phone] MD Yonis Miranda Attending Provider [phone] Melodie Ashton Primary Care Unavailable NilYonis menard Attending Unavailable Ruth, Yonis Mckenzie Admitting Unavailable DANTE, GRAHAM Attending Unavailable DANTE, GRAHAM Attending Unavailable MELANY, KELLE Attending Unavailable Melodie Ashton MD Primary Care Provider [phone] Melodie Ashton MD Primary Care Provider [phone] MLEODIE ASHTON Primary Care Unavailable NIC ESTEVEZ Attending Unavailable Yonis MIRANDA Attending Unavailable JANNETH SMITH Attending Unavailable EMILIANAJANNETH GUSMAN Attending Unavailable EMILIANAJANNETH GUSMAN Attending Unavailable Melodie Ashton Referring Unavailable EMILIANAJANNETH GUSMAN Attending Unavailable REMY Diteer R Admitting Unavailable REMY, Dieter R Attending Unavailable REMY, Dieter R Referring Unavailable EMILIANA, JANNETH E Admitting Unavailable EMILIANAJANNETH GUSMAN Attending Unavailable NILL, Yonis R Attending Unavailable NILL, Yonis Mckenzie Attending Unavailable Melodie Ashton Referring Unavailable Melodie Ashton MD Primary Care Provider [phone] Melodie Ashton MD Primary Care Provider [phone] MELANY, KELLE Attending Unavailable MELANY, KELLE [...] Date of Onset Reaction(s) Facility (1 source) [facility]; Translations: [[facility]] Propensity to adverse reactions (disorder) 0 [facility] Repository (3 sources) [facility] Sponge/Saline Med Drug allergy Tab [place] Other (20 sources) Wound Dressings Drug Allergy 4 [facility] (1 source) No Known Medication Allergies; Translations: [No Known Medication Allergies] Propensity to adverse reactions (disorder) [facility] Repository Medications Current Medications Medication [...] completed., # 2 cap(s), Refills(s) 0, Pharmacy: [facility]/pharmacy #[id number], 180, cm, 01/19/24 [...] Active magnesium oxide 400 mg oral tablet (20 sources) Start: take 1 tablet by mouth [...] Daily UTI prevention, 30 tab(s), Refill(s) 3, [facility]/pharmacy #[id number], 180, cm, 05/10/24 9:08:00 EDT, Height/Length Dosing, 150, kg, 05/10/24 9:08:00 EDT, Weight Dosing Start Date: 07/26/24 Status: Ordered Start: 01-19-2024 Bactrim 400 mg -80 mg Tab 1 tab(s), Oral, Daily UTI prevention, 30 tab(s), Refill(s) 3, [facility]/pharmacy #[id number], 180, cm, 01/19/24 [...] mg by mouth Daily 12/05/2024 Discontinued levonorgestrel 0.576258 mg/hr intrauterine system (8 sources) Progestin, Progestin-containi [...] Other long-term (current) drug therapy; Translations: [OTH ENVIRONMENTAL DIRECTOR CURRENT DRUG THERAPY] Onset: 3 Episodic Other [...] Test Name Value Interpretation Reference Range Facility [facility] TOTAL PROTEIN 24 HOUR UR INEon 05-19-2025 Interpretation and review of laboratory results [facility] (U) [Mass/Vol] 20.4 mg/dL High NINF - 11.9 mg/dL [facility] TOTAL PROTEIN 24 HOUR URINE 285.6 High NINF [facility] TOTAL VOLUME 24 HOUR URINE 1400 mL/24hr [facility] Healthcar e ALL CBC WITH AUTO DIFFon BASOPHILS ABSOLUTE AUTO 0 [facility] Basophils/100 WBC (Bld) 0.1 % Low 0.2 - 2.0 % [facility] Eosinophils/100 WBC (Bld) 0.8 % Low 0.9 - 7.0 % [facility] Erythrocyte distribution width (RBC) [Ratio] 12.8 % 11.0 - 15.0 % [facility] Hematocrit (Bld) [Volume fraction] 35.2 % Low 36.0 - 48.0 % [facility] Hemoglobin (Bld) [Mass/Vol] 11.8 g/dL Low 12.0 - 16.0 g/dL [facility] IMMATURE GRANULOCYTES ABS AUTO 0.05 High [facility] Immature granulocytes/100 WBC (Bld) 0.5 % 0.0 - 0.5 % [facility] Interpretation and review of laboratory results Abnormal [facility] LYMPHOCYTES ABSOLUTE AUTO 1.5 [facility] Lymphocytes/100 WBC (Bld) 14.5 % Low 20.5 - 60.0 % [facility] MCH (RBC) [Entitic mass] 29.3 pg 26.7 - 34.0 pg [facility] MCHC (RBC) [Mass/Vol] 33.5 g/dL 29.9 - 35.2 g/dL [facility] MCV (RBC) [Entitic vol] 87.3 fL 81.0 - 99.0 fL [facility] MONOCYTES ABSOLUTE AUTO 0.7 [facility] Monocytes/100 WBC (Bld) 6.9 % 1.7 - 12.0 % [facility] NEUTROPHILS ABSOLUTE AUTO 8 High [facility] Neutrophils/100 WBC (Bld) 77.2 % High 43.0 [...] US OB BPP W NON-STRESS on 05-17-2025 [place] [address] Ultrasound Report Signed Patient: ROSALIE RODRÍGUEZ V MR#: [id number] : 1995 Acct:[id number] Age/Sex: 30 / F ADM Date: Loc: [place] [address]: Graham Howell D.O. Ordering Physician: Graham Howell D.O. Date of Service: 05/17/25 Procedure(s): US OB BPP w non-stress Accession Number(s): [id number] cc: Graham Howell D.O.; Melodie Ashton M.D. [place] [address] Patient Name: ROSALIE RODRÍGUEZ MRN: [facility]:[id number] date: 1995 Sex: F Assigned Patient Location: [facility] Current Patient Location: [facility] Accession/Order Number: [id number] Exam Date: 05/17/2025 19:09 Report Date: 05/17/2025 19:13 At the request of: GRAHAM HOWELL DO Procedure: US OB BPP w non-stress Ultrasound biophysical profile INDICATION: GB COMPARISON: None FINDINGS/IMPRESSION: Single live intrauterine gestation with heart 132 bpm. BRISEYDA 23.28 cm Score 8/8 Impression dictated by: Weston Gonzalez M.D. 05/17/2025 7:13 PM Dictation Location: [place] [address] Electronically authenticated by: [id number] Y Date: 05/17/2025 19:13 Dictated By: Weston Gonzalez M.D. Signed By: 05/17/251914 DD/ 12 TD/TT: Gas Specialist: [facility] Radiology, Radiologist, - 05/17/2025 [place] [address] Ultrasound Report Signed Patient: ROSALIE RODRÍGUEZ V MR#: [id number] : 1995 Acct:[id number] Age/Sex: 30 / F ADM Date: Loc: [place] [address]- Attending Dr: Graham Howell D.O. Ordering Physician: Graham Howell D.O. Date of Service: 05/17/25 Procedure(s): US OB BPP w non-stress Accession Number(s): [id number] cc: Graham Howell D.O.; Melodie Ashton M.D. The [address] [address] Patient Name: ROSALIE RODRÍGUEZ MRN: [facility]:[id number] date: 1995 Sex: F Assigned Patient Location: [facility] Current Patient Location: [facility] Accession/Order Number: [id number] Exam Date: 05/17/2025 19:09 Report Date: 05/17/2025 19:13 At the request of: GRAHAM HOWELL DO Procedure: US OB BPP w non-stress Ultrasound biophysical profile INDICATION: GB COMPARISON: None FINDINGS/IMPRESSION: Single live intrauterine gestation with heart 132 bpm. BRISEYDA 23.28 cm Score 8/8 Impression dictated by: Weston Gonzalez M.D. 05/17/2025 7:13 PM Dictation Location: [place] [address] Electronically authenticated by: [id number] Y Date: 05/17/2025 19:13 Dictated By: Weston Gonzalez M.D. Signed By: 05/17/251914 DD/ 12 TD/TT: Gas Specialist: [facility] Radiology Study observation (narrative) [facility] US OB BPP W NON-STRESS Ordered By: Radiologist Radiology on 05-17-2025 [facility] Red[employer] Work Phone: US OB BPP W NON-STRESS on 05-15-2025 [place] [address] Ultrasound Report Signed Patient: ROSALIE RODRÍGUEZ V MR#: [id number] : 1995 Acct:[id number] Age/Sex: 30 / F ADM Date: 05/15/25 Loc: US Attending Dr: Graham Howell D.O. Ordering Physician: Graham Howell D.O. Date of Service: 05/15/25 Procedure(s): US OB BPP w non-stress Accession Number(s): [id number] cc: Graham Howell D.O.; Melodie Ashton M.D. [place] [address] Patient Name: ROSALIE RODRÍGUEZ MRN: [facility]:[id number] date: 1995 Sex: F Assigned Patient Location: [facility] Current Patient Location: Accession/Order Number: [id number] Exam Date: 05/15/2025 18:34 Report Date: 05/15/2025 [...] Dominguez M.D. 05/15/2025 6:40 PM Dictation Location: [place] [address] Electronically authenticated by: [id number] Y Date: 05/15/2025 18:40 Dictated By: Neli Dominguez M.D. Signed By: 05/15/251842 DD/ 39 TD/TT: Gas Specialist: [facility] Radiology, Radiologist, - 05/15/2025 [place] [address] Ultrasound Report Signed Patient: ROSALIE RODRÍGUEZ V MR#: [id number] : 1995 Acct:[id number] Age/Sex: 30 / F ADM Date: 05/15/25 Loc: US Attending Dr: Graham Howell D.O. Ordering Physician: Graham Howell D.O. Date of Service: 05/15/25 Procedure(s): US OB BPP w non-stress Accession Number(s): [id number] cc: Graham Howell D.O.; Melodie Ashton M.D. The [address] [address] Patient Name: ROSALIE RODRÍGUEZ MRN: [facility]:[id number] date: 1995 Sex: F Assigned Patient Location: [facility] Current Patient Location: Accession/Order Number: [id number] Exam Date: 05/15/2025 18:34 Report Date: 05/15/2025 [...] Dominguez M.D. 05/15/2025 6:40 PM Dictation Location: [place] [address] Electronically authenticated by: [id number] Y Date: 05/15/2025 18:40 Dictated By: Neli Dominguez M.D. Signed By: 05/15/251842 DD/ 39 TD/TT: Gas Specialist: [facility] Radiology Study observation (narrative) [facility] US OB BPP W NON-STRESS Ordered By: Radiologist Radiology on 05-15-2025 [facility] [employer] Work Phone: Urinalysis macro (dipstick) panel (U)on 2025 Bilirubin, UA Positive Negative - 4(70) +++ mg/dL [facility] Comment on above: small Blood, UA Negative Negative - 50 Issac/mcL [facility] Clarity, UA Cloudy [facility] Color, UA Jolie [facility] Glucose, UA Negative Negative - 2000(110) ++++ mg/dL [facility] Interpretation and review of laboratory results Abnormal [facility] Ketones, UA Positive Negative - 160(16) ++++ mg/dL [facility] Comment on above: 15 Leukocytes, UA Positive Negative - 500+++ Christo/mcL [facility] Comment on above: small Nitrite, UA Negative Negative - Positive [facility] pH, UA 5.5 5 - 9 [facility] Protein, UA Positive Negative - 2000(20) ++++ mg/dL [facility] Comment on above: 30 Spec Grav, UA 1.03 1 - 1.03 [facility] Urobilinogen, UA 0.2 0.2 - 12 mg[facility] US OB BPP W NON-STRESS on 05-08-[address] [address] Ultrasound Report Signed Patient: ROSALIE RODRÍGUEZ V MR#: [id number] : 1995 Acct:[id number] Age/Sex: 29 / F ADM Date: 05/08/25 Loc: US Attending Dr: Graham Howell D.O. Ordering Physician: Graham Howell D.O. Date of Service: 05/08/25 Procedure(s): US OB BPP w non-stress Accession Number(s): [id number] cc: Graham Howell D.O.; Melodie Ashton M.D. The [address] [id number] Patient Name: ROSALIE RODRÍGUEZ MRN: [facility]:[id number] date: 1995 Sex: F Assigned Patient Location: [facility] Current Patient Location: Accession/Order Number: [id number] Exam Date: 05/08/2025 21:48 Report Date: 05/08/2025 [...] Graham M.D. 05/08/2025 9:49 PM Dictation Location: [place] [address] Electronically authenticated by: [id number] Y Date: 05/08/2025 21:49 Dictated By: Daniel Graham D.O. Signed By: 05/08/252151 DD/ 48 TD/TT: Gas Specialist: [facility] Radiology, Radiologist, - 05/08/[address] [address] Ultrasound Report Signed Patient: ROSALIE RODRÍGUEZ V MR#: [id number] : 1995 Acct:[id number] Age/Sex: 29 / F ADM Date: 05/08/25 Loc: US Attending Dr: Graham Howell D.O. Ordering Physician: Graham Howell D.O. Date of Service: 05/08/25 Procedure(s): US OB BPP w non-stress Accession Number(s): [id number] cc: Graham Howell D.O.; Melodie Ashton M.D. [place] [address] Patient Name: ROSALIE RODRÍGUEZ MRN: [facility]:[id number] date: 1995 Sex: F Assigned Patient Location: [facility] Current Patient Location: Accession/Order Number: [id number] Exam Date: 05/08/2025 21:48 Report Date: 05/08/2025 [...] Graham M.D. 05/08/2025 9:49 PM Dictation Location: [place] [address] Electronically authenticated by: [id number] Y Date: 05/08/2025 21:49 Dictated By: Daniel Graham D.O. Signed By: 05/08/252151 DD/ 48 TD/TT: Gas Specialist: [facility] Radiology Study observation (narrative) [facility] US OB BPP W NON-STRESS Ordered By: Radiologist Radiology on 05-08-2025 [facility] Red[employer] Work Phone: US OB FOLLOW UP [...] PHD at 28-Apr-2025 08:26:54 AM [facility] Normal Not Available Comment on above: Order Comment: US OB SCAN FOR GROWTH Estimated Date of Delivery: 06/05/25 Gestational Age as of 04/12/2025: 32w2d Urinalysis macro (dipstick) panel (U)on 04-27-2025 Bilirubin, UA Positive Negative - 4(70) +++ mg/dL [facility] Comment on above: small Blood, UA Negative Negative - 50 Issac/mcL [facility] Clarity, UA Clear [facility] Color, UA Yellow [facility] Glucose, UA Negative Negative - 2000(110) ++++ mg/dL [facility] Interpretation and review of laboratory results Abnormal [facility] Ketones, UA Positive Negative - 160(16) ++++ mg/dL [facility] Comment on above: Trace Leukocytes, UA Trace Negative - 500+++ Christo/mcL [facility] Nitrite, UA Negative Negative - Positive [facility] pH, UA 6 5 - 9 [facility] Protein, UA Positive Negative - 1999(20) ++++ mg/dL [facility] Comment on above: 30mg/dL Spec Grav, UA 1.025 1 - 1.03 [facility] Urobilinogen, UA 0.2 0.2 - 12 mg/dL [facility] UA (CLEAN/CATCH) SPECTROGRAPHIC ANALYST/LORENZO RO IF IND.on 04-25-2025 BILIRUBIN URINE Negative NEGATIVE [facility] thcare BLOOD URINE Negative NEGATIVE [facility] Healthca re Clarity (U) CLEAR CLEAR [facility] Healthca re Color (U) LT. YELLOW YELLOW [facility] Healthcar e GLUCOSE URINE UA Negative NEGATIVE mg/dL [facility] Interpretation and review of laboratory results Abnormal [facility] Healthca re Ketones Ql (U) Negative NEGATIVE mg/dL [facility] Leukocyte esterase Test strip Ql (U) MODERATE Abnormal NEGATIVE [facility] Healthcar e NITRITE URINE Negative NEGATIVE [facility] care pH (U) 7.5 [pH] 5.0 - 9.0 [facility] Protein (U) [Mass/Vol] 30 mg/dL Abnormal NEG/TRACE [facility] SPECIFIC GRAVITY URINE 1.020 1.005 - 1.025 [facility] URINE MICROSCOPIC INDICATED YES [facility] UROBILINOGEN URINE 1.0 EU/dL 0.2 - 1.0 EU/dL [facility] Healthcar e Urinalysis macro (dipstick) panel (U)on 04-12-2025 Bilirubin, UA Negative Negative - 4(70) +++ mg/dL [facility] Blood, UA Negative Negative - 50 Issac/mcL [facility] Clarity, UA Clear [facility] Healthca re Color, UA Yellow [facility] Healthcar e Glucose, UA Negative Negative - 1999(110) ++++ mg/dL [facility] Interpretation and review of laboratory results Abnormal [facility] Healthca re Ketones, UA Positive Negative - 160(16) ++++ mg/dL [facility] Comment on above: Trace Leukocytes, UA Trace Negative - 500+++ Christo/mcL [facility] Nitrite, UA Negative Negative - Positive [facility] pH, UA 6 5 - 9 [facility] Healthcar e Protein, UA Positive Negative - 1999(20) ++++ mg/dL [facility] Comment on above: 30mg/dL Spec Grav, UA 1.01 1 - 1.03 [facility] Urobilinogen, UA 1.0 0.2 - 12 mg/dL [facility] Urinalysis macro (dipstick) panel (U)on 03-29-2025 Bilirubin, UA Positive Negative - 4(70) +++ mg/dL [facility] Comment on above: small Blood, UA Negative Negative - 50 Issac/mcL [facility] Healthcare Clarity, UA Clear [facility] Color, UA Yellow [facility] Glucose, UA Negative Negative - 1999(110) ++++ mg/dL [facility] Interpretation and review of laboratory results Abnormal [facility] Ketones, UA Positive Negative - 160(16) ++++ mg/dL [facility] Comment on above: Trace Leukocytes, UA Trace Negative - 500+++ Christo/mcL [facility] Nitrite, UA Negative Negative - Positive [facility] pH, UA 6.5 5 - 9 [facility] Healthcar e Protein, UA Positive Negative - 1999(20) ++++ mg/dL [facility] Comment on above: 30mg/dL Spec Grav, UA 1.03 1 - 1.03 [facility] Urobilinogen, UA 0.2 0.2 - 12 mg/dL [facility] Urinalysis macro (dipstick) panel (U)on 03-15-2025 Bilirubin, UA Positive Negative - 4(70) +++ mg/dL [facility] Comment on above: small Blood, UA Negative Negative - 50 Issac/mcL [facility] Clarity, UA Clear [facility] Color, UA Yellow [facility] Healthcar e Glucose, UA Negative Negative - 1999(110) ++++ mg/dL [facility] Interpretation and review of laboratory results Abnormal [facility] Healthca re Ketones, UA Positive Negative - 160(16) ++++ mg/dL [facility] Comment on above: 40mg/dL Leukocytes, UA Trace Negative - 500+++ Christo/mcL [facility] Nitrite, UA Negative Negative - Positive [facility] pH, UA 5.5 5 - 9 [facility] Healthcar e Protein, UA Positive Negative - 1999(20) ++++ mg/dL [facility] Comment on above: 30mg/dL Spec Grav, UA 1.03 1 - 1.03 [facility] Urobilinogen, UA 0.2 0.2 - 12 mg/dL [facility] Healthcar e ALL CBC WITH AUTO DIFFon BASOPHILS ABSOLUTE AUTO 0 [facility] Basophils/100 WBC (Bld) 0.3 % 0.2 - 2.0 % [facility] Eosinophils/100 WBC (Bld) 0.7 % Low 0.9 - 7.0 % [facility] Erythrocyte distribution width (RBC) [Ratio] 12.6 % 11.0 - 15.0 % [facility] Hematocrit (Bld) [Volume fraction] 35.7 % Low 36.0 - 48.0 % [facility] Healthcar e Hemoglobin (Bld) [Mass/Vol] 12.1 g/dL 12.0 - 16.0 g/dL [facility] IMMATURE GRANULOCYTES ABS AUTO 0.06 High [facility] Immature granulocytes/100 WBC (Bld) 0.6 % High 0.0 - 0.5 % [facility] Interpretation and review of laboratory results Abnormal [facility] LYMPHOCYTES ABSOLUTE AUTO 1.2 [facility] Lymphocytes/100 WBC (Bld) 11.3 % Low 20.5 - 60.0 % [facility] MCH (RBC) [Entitic mass] 30.6 pg 26.7 - 34.0 pg [facility] MCHC (RBC) [Mass/Vol] 33.9 g/dL 29.9 - 35.2 g/dL [facility] MCV (RBC) [Entitic vol] 90.2 fL 81.0 - 99.0 fL [facility] MONOCYTES ABSOLUTE AUTO 0.6 [facility] Monocytes/100 WBC (Bld) 5.4 % 1.7 - 12.0 % [facility] NEUTROPHILS ABSOLUTE AUTO 8.5 High [facility] Neutrophils/100 WBC (Bld) 81.7 % High 43.0 - 75.0 % [facility] Platelet mean volume (Bld) [Entitic vol] 8.9 fL Low 9.5 - 13.5 fL [facility] EO # 0.1 [facility] PLT 242 [facility] RBC 3.96 Low [facility] WBC 10.4 [facility] Healthcar e US OB 14+ WEEKS ANATOMY [...] II, MD, PHD at 24-Jan-2025 09:25:38 AM [facility] Normal Not Available Comment on above: Order Comment: US OB ANATOMY SINGLE W US OB CERVICAL LENGTH Estimated Date of Delivery: 06/05/25 Gestational Age as of 12/27/2024: 17w1d Urinalysis macro (dipstick) panel (U)on 01-04-2025 Bilirubin, UA Positive Negative - 4(70) +++ mg/dL [facility] Comment on above: small Blood, UA Negative Negative - 50 Issac/mcL [facility] Clarity, UA Clear [facility] [employer] re Color, UA Yellow [facility] Healthcar e Glucose, UA Negative Negative - 1999(110) ++++ mg/dL [facility] Interpretation and review of laboratory results Abnormal [facility] Healthri re Ketones, UA Positive Negative - 160(16) ++++ mg/dL [facility] Comment on above: trace Leukocytes, UA Positive Negative - 500+++ Christo/mcL [facility] Comment on above: small Nitrite, UA Negative Negative - Positive [facility] pH, UA 5.5 5 - 9 [facility] [employer] Protein, UA Positive Negative - 1999(20) ++++ mg/dL [facility] Comment on above: 30mg/dL Spec Grav, UA 1.03 1 - 1.03 [facility] Urobilinogen, UA 0.2 0.2 - 12 mg/dL [facility] Red[employer] [facility] IGP,APTIMA HPV,AGE GDLNon AGE GDLN ACOG TESTING Note . [facility] Comment on above: TESTS RESULT FLAG UN ITS REF RANGE LAB Clinician Provided Cytology Information Source.............Cervix Other.............. No. of containers..01 ThinPrep Vial Age Algo ACOG Soraida... 28 FLAG LEGEND: L-Low Normal,H-High Normal,LL-Alert Low,HH-Alert High <-Panic Low,>-Panic High,A-Abnormal,AA-Critical Abnormal Performed at: 01 =[address] [address] Haily Cook MD, HPV APTIMA Negative Negative [facility] Comment on above: This nucleic acid am plification test detects fourteen high- risk HPV types (16,18,31,33,35,39,45,51,52,56,58,59,66,68) without differentiation. Performed at: = - [address] [id number] Anesthesia Resident: Haily Cook MD, Phone: [phone] Performed at: - [address] [id number] Anesthesia Resident: Haily Cook MD, Phone: [phone] IGP, APTIMA HPV, RFX 16/18,45 Note . [facility] Comment on above: TESTS RESULT FLAG UN ITS REF RANGE LAB DIAGNOSIS: 02 NEGATIVE FOR INTRAEPITHELIAL LESION OR MALIGNANCY. Specimen adequacy: 02 Satisfactory for evaluation. No endocervical component is identified. Performed by: 02 Janneth Guerrero, Mines Inspector (ASCP) . 02 Note: Note 02 The [...] <-Panic Low,>-Panic High,A-Abnormal,AA-Critical Abnormal Performed at: 02 [address] [facility] [place] [address] [facility] [place] [address] Haily Cook MD, SPATULA-ALONE CERVIX CLINISYFL [facility] Urinalysis macro (dipstick) panel (U)on 12-27-2024 Bilirubin, UA Negative Negative - 4(70) +++ mg/dL [facility] Blood, UA Negative Negative - 50 Issac/mcL [facility] Clarity, UA Clear [facility] [employer] re Color, UA Yellow [facility] Glucose, UA Negative Negative - 1999(110) ++++ mg/dL [facility] Interpretation and review of laboratory results Abnormal [facility] [employer] re Ketones, UA Negative Negative - 160(16) ++++ mg/dL [facility] Leukocytes, UA Positive Negative - 500+++ Christo/mcL [facility] Comment on above: small Nitrite, UA Negative Negative - Positive [facility] pH, UA 6 5 - 9 [facility] Protein, UA Trace Negative - 1999(20) ++++ mg/dL [facility] Spec Grav, UA 1.03 1 - 1.03 [facility] Urobilinogen, UA 0.2 0.2 - 12 mg/dL [facility] BOX TESTon 12-23-2024 BOX TEST SENT OUT [employer] [facility] [employer]oat [address]OX[address] UN[facility] BOX[address] 12/23/[address] [facility] [facility] UN[facility] BOX CLIN[facility] [...] a no show a second time. Normal [facility] Urinalysis macro (dipstick) panel (U)on 12-05-2024 Bilirubin, UA Negative Negative - 4(70) +++ mg/dL [facility] Blood, UA Negative Negative - 50 Issac/mcL [facility] Clarity, UA Clear [facility] Healthca re Color, UA Yellow [facility] Healthcar e Glucose, UA Negative Negative - 2000(110) ++++ mg/dL [facility] Interpretation and review of laboratory results Abnormal [facility] Ketones, UA Negative Negative - 160(16) ++++ mg/dL [facility] Leukocytes, UA Positive Negative - 500+++ Christo/mcL [facility] Comment on above: small Nitrite, UA Negative Negative - Positive [facility] pH, UA 6.5 5 - 9 [facility] RedT e Protein, UA Trace Negative - 1999(20) ++++ mg/dL [facility] Spec Grav, UA 1.025 1 - 1.03 [facility] Urobilinogen, UA 0.2 0.2 - 12 mg/dL [facility] Basic Metabolic Panelon 11-23 Est, Glom Filt Rate - PINF [facility] Comment on above: These results are [...] Interpretation and review of laboratory results Abnormal [facility] Urea nitrogen/Creatinine [Mass ratio] 12 mg/mg 9 - 20 [facility] Basic Metabolic Profon 12-02 Anion gap [Moles/Vol] 11 mmol/L Normal 9-16 [facility] Comment on above: Performed By: #### B MP, LIVP, MG, CDP, LIP #### [address] [place] [address] Anesthesia Resident: Nandini Acevedo MD BUN/CRE Ratio 12 Normal 9-20 [facility] [place] Comment on above: Performed By: #### B MP, LIVP, MG, CDP, LIP #### [address] [place], [place] [id number] Anesthesia Resident: Nandini Acevedo MD Calcium [Mass/Vol] 9.3 mg/dL Normal 8.6-10.4 [facility] Comment on above: Performed By: #### B MP, LIVP, MG, CDP, LIP #### [address] [place] [address] Anesthesia Resident: Nandini Acevedo MD Chloride [Moles/Vol] 102 mmol/L Normal 98-107 [facility] Comment on above: Performed By: #### B MP, LIVP, MG, CDP, LIP #### [address] [place] [address] Anesthesia Resident: Nandini Acevedo MD CO2 [Moles/Vol] 24 mmol/L Normal 20-31 [facility] Comment on above: Performed By: #### B MP, LIVP, MG, CDP, LIP #### [address] [place] [address] Anesthesia Resident: Nandini Acevedo MD Creatinine [Mass/Vol] 0.5 mg/dL Normal 0.50-0.90 [facility] Comment on above: Performed By: #### B MP, LIVP, MG, CDP, LIP #### [address] [place] [address] Anesthesia Resident: Nandini Acevedo MD GFR/1.73 sq M.predicted among non-blacks MDRD (S/P/Bld) [Vol rate/Area] mL/min/{1.73_m2} Normal >60 [facility] Comment on above: Result Comment: [...] B MP, LIVP, MG, CDP, LIP #### [address] [place] [address] Anesthesia Resident: Nandini Acevedo MD Glucose [Mass/Vol] 88 mg/dL Normal 74-99 [facility] Comment on above: Performed By: #### B MP, LIVP, MG, CDP, LIP #### [address] [address] Anesthesia Resident: Nandini Acevedo MD Potassium [Moles/Vol] 3.6 mmol/L Low 3.7-5.3 [facility] Comment on above: Performed By: #### B MP, LIVP, MG, CDP, LIP #### [address] [place] [address] Anesthesia Resident: Nandini Acevedo MD Sodium [Moles/Vol] 137 mmol/L Normal 136-145 [facility] Comment on above: Performed By: #### B MP, LIVP, MG, CDP, LIP #### [address] [place] [address] Anesthesia Resident: Nandini Acevedo MD Urea nitrogen [Mass/Vol] 6 mg/dL Normal 6-20 [facility] Comment on above: Performed By: #### B MP, LIVP, MG, CDP, LIP #### [facility] [address] [place] [address] Anesthesia Resident: Nandini Acevedo MD CBC with Auto Differentialon 12-02-2024 Basophils (Bld) [#/Vol] 0.04 10*3/uL [facility] Basophils/100 WBC (Bld) 0 % 0 - 2 % [facility] Eosinophils (Bld) [#/Vol] 0.06 10*3/uL [facility] Eosinophils/100 WBC (Bld) 0 % Low 1 - 4 % [facility] Erythrocyte distribution width (RBC) [Ratio] 12.0 % 11.8 - 14.4 % [facility] Hematocrit (Bld) [Volume fraction] 38.6 % 36.3 - 47.1 % [facility] Hemoglobin (Bld) [Mass/Vol] 13.3 g/dL 11.9 - 15.1 g/dL [facility] Immature granulocytes (Bld) [#/Vol] 0.05 10*3/uL [facility] Immature granulocytes/100 WBC (Bld) 0 % 0 [facility] Interpretation and review of laboratory results Abnormal [facility] Lymphocytes/100 WBC (Bld) 9 % Low 24 - 43 % [facility] Lymphocytes/100 WBC (Bld) 1.26 % [facility] MCH (RBC) [Entitic mass] 30.6 pg 25.2 - 33.5 pg [facility] MCHC (RBC) [Mass/Vol] 34.5 g/dL 28.4 - 34.8 g/dL [facility] MCV (RBC) [Entitic vol] 88.7 fL 82.6 - 102.9 fL [facility] Monocytes/100 WBC (Bld) 6 % 3 - 12 % [facility] Monocytes/100 WBC (Bld) 0.88 % [facility] Neutrophils/100 WBC (Bld) 85 % High 36 - 65 % [facility] Nucleated RBC/100 WBC (Bld) [Ratio] 0.0 % 0.0 per 100 WBC [facility] Platelet mean volume (Bld) [Entitic vol] 9.2 fL 8.1 - 13.5 fL [facility] Platelets (Bld) [#/Vol] 267 10*3/uL [facility] RBC (Bld) [#/Vol] 4.35 10*6/uL 3.95 - 5.1 1 m/uL [facility] Segmented neutrophils/100 WBC (Bld) 12.17 % High [facility] WBC other (Bld) [#/Vol] 14.5 High [facility] CBC with Diffon 12-02-2024 Abs. Basophil 0.04 k/uL Normal 0.00-0.20 [facility] [place] Comment on above: Performed By: #### B MP, LIVP, MG, CDP, LIP #### [address] [place] [address] Anesthesia Resident: Nandini Acevedo MD Abs.Imm.Granulocyte 0.05 k/uL Normal 0.00-0.30 [facility] Comment on above: Performed By: #### B MP, LIVP, MG, CDP, LIP #### [address] [place] [address] Anesthesia Resident: Nandini Acevedo MD Abs.Neutrophil (Seg) 12.17 k/uL High 1.50-8.10 [facility] Comment on above: Performed By: #### B MP, LIVP, MG, CDP, LIP #### [address] [place], [facility] Anesthesia Resident: Nandini Acevedo MD Basophils/100 WBC (Bld) 0 % Normal 0-2 [facility] Comment on above: Performed By: #### B MP, LIVP, MG, CDP, LIP #### [address] [address] Anesthesia Resident: Nandini Acevedo MD Eosinophils (Bld) [#/Vol] 0.06 10*3/uL Normal 0.00-0.44 [facility] Comment on above: Performed By: #### B MP, LIVP, MG, CDP, LIP #### [address] [place], [facility] Anesthesia Resident: Nandini Acevedo MD Eosinophils/100 WBC (Bld) 0 % Low 1-4 [facility] Comment on above: Performed By: #### B MP, LIVP, MG, CDP, LIP #### [address] [place], [facility] Anesthesia Resident: Nandini Acevedo MD Erythrocyte distribution width (RBC) [Ratio] 12.0 % Normal 11.8-14.4 [facility] Comment on above: Performed By: #### B MP, LIVP, MG, CDP, LIP #### [address] [place] [id number] Anesthesia Resident: Nandini Acevedo MD Hematocrit (Bld) [Volume fraction] 38.6 % Normal 36.3-47.1 [facility] Comment on above: Performed By: #### B MP, LIVP, MG, CDP, LIP #### [address] [place], [facility] Anesthesia Resident: Nandini Acevedo MD Hemoglobin (Bld) [Mass/Vol] 13.3 g/dL Normal 11.9-15.1 [facility] Comment on above: Performed By: #### B MP, LIVP, MG, CDP, LIP #### [address] [place], [facility] Anesthesia Resident: Nandini Acevedo MD Immature granulocytes/100 WBC (Bld) 0 % Normal 0 [facility] Comment on above: Performed By: #### B MP, LIVP, MG, CDP, LIP #### [address] [place], [place] [id number] Anesthesia Resident: Nandini Acevedo MD Lymphocytes (Bld) [#/Vol] 1.26 10*3/uL Normal 1.10-3.70 [facility] Comment on above: Performed By: #### B MP, LIVP, MG, CDP, LIP #### [address] [place] [address] Anesthesia Resident: Nandini Acveedo MD Lymphocytes/100 WBC (Bld) 9 % Low 24-43 [facility] Comment on above: Performed By: #### B MP, LIVP, MG, CDP, LIP #### [address] [place], [place] [id number] Anesthesia Resident: Nandini Acevedo MD MCH (RBC) [Entitic mass] 30.6 pg Normal 25.2-33.5 [facility] Comment on above: Performed By: #### B MP, LIVP, MG, CDP, LIP #### [address] [place], [facility] Anesthesia Resident: Nandini Acevedo MD MCHC (RBC) [Mass/Vol] 34.5 g/dL Normal 28.4-34.8 [facility] Comment on above: Performed By: #### B MP, LIVP, MG, CDP, LIP #### [address] [place], [facility] Anesthesia Resident: Nandini Acevedo MD MCV (RBC) [Entitic vol] 88.7 fL Normal 82.6-102.9 [facility] Comment on above: Performed By: #### B MP, LIVP, MG, CDP, LIP #### [address] [place], [place] [id number] Anesthesia Resident: Nandini Acevedo MD Monocytes (Bld) [#/Vol] 0.88 10*3/uL Normal 0.10-1.20 [facility] Comment on above: Performed By: #### B MP, LIVP, MG, CDP, LIP #### [address] [place], [facility] Anesthesia Resident: Nandini Acevedo MD Monocytes/100 WBC (Bld) 6 % Normal 3-12 [facility] Comment on above: Performed By: #### B MP, LIVP, MG, CDP, LIP #### [facility] [address] [place] [address] Anesthesia Resident: Nandini Acevedo MD Neutrophil (Seg) 85 % High 36-65 [facility] Comment on above: Performed By: #### B MP, LIVP, MG, CDP, LIP #### [facility] [address] [place] [address] Dr[place], [place] [id number] Anesthesia Resident: Nandini Acevedo MD NRBC Automated 0.0 per 100 WBC Normal 0.0 [facility] Comment on above: Performed By: #### B MP, LIVP, MG, CDP, LIP #### [address] [place], [place] [id number] Anesthesia Resident: Nandini Acevedo MD Platelet mean volume (Bld) [Entitic vol] 9.2 fL Normal 8.1-13.5 [facility] Comment on above: Performed By: #### B MP, LIVP, MG, CDP, LIP #### [address] [place], [place] [id number] Anesthesia Resident: Nandini Acevedo MD Platelets (Bld) [#/Vol] 267 10*3/uL Normal 138-453 [facility] Comment on above: Performed By: #### B MP, LIVP, MG, CDP, LIP #### [address] [place], [place] [id number] Anesthesia Resident: Nandini Acevedo MD RBC (Bld) [#/Vol] 4.35 10*6/uL Normal 3.95-5.11 [facility] Comment on above: Performed By: #### B MP, LIVP, MG, CDP, LIP #### [address] [place], [place] [id number] Anesthesia Resident: Nandini Acevedo MD WBC (Bld) [#/Vol] 14.5 10*3/uL High 3.5-11.3 [facility] Comment on above: Performed By: #### B MP, LIVP, MG, CDP, LIP #### [address] [place], [place] 938[address]83 Anesthesia Resident: Nandini Acevedo MD Hepatic Function Panelon Albumin/Globulin [Mass ratio] 1.4 {ratio} 1.0 - 2.5 [facility] ALP [Catalytic activity/Vol] 61 U/L 35 - 104 U/L [facility] Bilirubin.direct [Mass/Vol] mg/dL 0.00 - 0.30 mg/dL [facility] Bilirubin.indirect [Mass/Vol] Can not be calculated 0.0 - 1.0 mg/dL [facility] Lipaseon 12-02-2024 Lipase [Catalytic activity/Vol] 34 U/L Normal 13-60 [facility] Comment on above: Performed By: #### B MP, LIVP, MG, CDP, LIP #### [address] [place], [place] [id number] Anesthesia Resident: Nandini Acevedo MD Liver Profileon 12-02-2024 Albumin [Mass/Vol] 3.9 g/dL Normal 3.5-5.2 [facility] Comment on above: Performed By: #### B MP, LIVP, MG, CDP, LIP #### [address] [place], [place] 0881483 Anesthesia Resident: Nandini Acevedo MD Albumin/Glob Ratio 1.4 Normal 1.0-2.5 [facility] Comment on above: Performed By: #### B MP, LIVP, MG, CDP, LIP #### [address] [place], [place] [id number] Anesthesia Resident: Nandini Acevedo MD Alkaline Phos 61 U/L Normal 35-104 [facility] Comment on above: Performed By: #### B MP, LIVP, MG, CDP, LIP #### [address] [place] [address] Anesthesia Resident: Nandini Acevedo MD ALT [Catalytic activity/Vol] 14 U/L Normal 10-35 [facility] Comment on above: Performed By: #### B MP, LIVP, MG, CDP, LIP #### [address] [place], [place] [address]1983 Anesthesia Resident: Nandini Acevedo MD AST [Catalytic activity/Vol] 14 U/L Normal 10-35 [facility] Comment on above: Performed By: #### B MP, LIVP, MG, CDP, LIP #### [address] [place] [address] Anesthesia Resident: Nandini Acevedo MD Bilirubin [Mass/Vol] mg/dL Normal 0.00-1.20 [facility] Comment on above: Performed By: #### B MP, LIVP, MG, CDP, LIP #### [address] [place] [address] Anesthesia Resident: Nandini Acevedo MD Bilirubin, Indirect Can not be calculated Normal 0.0-1 .0 [facility] Comment on above: Performed By: #### B MP, LIVP, MG, CDP, LIP #### [address] [place], [place] [id number] Anesthesia Resident: Nandini Acevedo MD Bilirubin.indirect [Mass/Vol] mg/dL Normal 0.00-0.30 [facility] Comment on above: Performed By: #### B MP, LIVP, MG, CDP, LIP #### [address] [place] [address] Anesthesia Resident: Nandini Acevedo MD Protein [Mass/Vol] 6.7 g/dL Normal 6.6-8.7 [facility] Comment on above: Performed By: #### B MP, LIVP, MG, CDP, LIP #### [facility] [address] [place] [address] Anesthesia Resident: Nandini Acevedo MD Magnesiumon 12-02-2024 Magnesium [Mass/Vol] 1.7 mg/dL Normal 1.6-2.6 [facility] Comment on above: Performed By: #### B MP, LIVP, MG, CDP, LIP #### [facility] [address] [place] [address] Anesthesia Resident: Nandini Acevedo MD Microscopic Urinalysison Amorphous sediment LM Ql (Urine sed) 2+ Abnormal None [facility] Epithelial cells LM.HPF (Urine sed) [#/Area] 0 TO 2 [facility] Interpretation and review of laboratory results Abnormal [facility] RBC LM.HPF (Urine sed) [#/Area] 0 TO 2 [facility] WBC LM.HPF (Urine sed) [#/Area] 2 TO 5 [facility] No Panel Informationon 12-02 [facility] US OB LESS THAN 14 WEEKS SIN [...] seen given later gestation Embryo(<11wk) /Fetus(>=11wk): Single Selby Rump Length: 7.9 cm Rate of Cardiac [...] Keyur Benavides MD 12/02/24 Final result Normal [facility] Intrauterine with embryonic/ cardiac activity. Estimated gestational age by current ultrasound is 14 weeks 0 days. [facility] EXAMINATION: FIRST TRIMESTER OBSTETRIC ULTRASOUND [...] seen given later gestation Embryo(<11wk) /Fetus(>=11wk): Single Selby Rump Length: 7.9 cm Rate of Cardiac Activity 160 Right ovary: 3.2 x 2.2 x 2.3 cm Left ovary: Surgically absent Free fluid: Measurements: Estimated gestational age by current ultrasound: 14 weeks 0 days Estimated gestational age by LMP/prior ultrasound: 13 weeks 4 days Estimated Due Date: 06/02/2025 by today's ultrasound [facility] Keyur Benavides MD - 12/02/2024 EXAMINATION: [...] seen given later gestation Embryo(<11wk) /Fetus(>=11wk): Single Selby Rump Length: 7.9 cm Rate of Cardiac [...] current ultrasound is 14 weeks 0 days. [facility] Radiology Study observation (narrative) [facility] US OB LESS THAN 14 WEEKS SIN GLE OR FIRST GESTATION W DOPPLEROrdered By: Keyur Benavides on 12-02-2024 [facility] Work Phone: Urinalysison 12-02-2024 Bilirubin Ql (U) Negative NEGATIVE [facility] Clarity (U) Clear Clear [facility] Color (U) Yellow Yellow [facility] Glucose Test strip (U) [Mass/Vol] Negative NEGATIVE mg/dL [facility] Hemoglobin Auto test strip Ql (U) Negative NEGATIVE [facility] Interpretation and review of laboratory results Abnormal [facility] Ketones (U) [Mass/Vol] Negative NEGATIVE mg/dL [facility] Leukocyte esterase Test strip Ql (U) MODERATE Abnormal NEGATIVE [facility] Nitrite Ql (U) Negative NEGATIVE [facility] pH (U) 7.5 [pH] 5.0 - 9.0 [facility] Protein (U) [Mass/Vol] Negative NEGATIVE mg/dL [facility] Specific gravity (U) [Rel density] 1.025 High 1.010 - 1.020 [facility] Urobilinogen Qn (U) Normal 0.0 - 1. 0 EU/dL [facility] Urinalysis, Routineon 2024 Bilirubin, SemiQt,Ur Negative Normal NEG [facility] Comment on above: Performed By: #### U KELLI Bazzi #### [facility] [address] [place] [address] Anesthesia Resident: Nandini Acevedo MD Blood, Urine Negative Normal NEG [facility] Comment on above: Performed By: #### U KELLI Bazzi #### [facility] [address] [place], [place] [phone] Anesthesia Resident: Nandini Acevedo MD Clarity (U) Clear Normal CLEAR [facility] Comment on above: Performed By: #### U A, UMICAO #### [facility] [address] [place] [address] Dr. [place], [place] [id number] Anesthesia Resident: Nandini Acevedo MD Color (U) Yellow Normal YEL [facility] Comment on above: Performed By: #### U A, UMICAO #### [address] [place], [place] [phone] Anesthesia Resident: Nandini Acevedo MD Glucose Ql (U) Negative Normal NEG [facility] Comment on above: Performed By: #### U A, UMICAO #### [facility] [address] [place] [address] Dr[place], [place] [id number] Anesthesia Resident: Nandini Acevedo MD Ketones Ql (U) Negative Normal NEG [facility] Comment on above: Performed By: #### U A, UMICAO #### [address] [place], [place] [phone] Anesthesia Resident: Nandini Acevedo MD Leukocyte esterase Test strip Ql (U) MODERATE Abnormal NEG [facility] Comment on above: Performed By: #### U A, UMICAO #### [facility] [address] [place] [address] Dr[place], [place] [id number] Anesthesia Resident: Nandini Acevedo MD Nitrite,Ur Negative Normal NEG [facility] Comment on above: Performed By: #### U A, UMICAO #### [address] [place], [place] 2478183 Anesthesia Resident: Nandini Acevedo MD PH,Ur 7.5 Normal 5.0-9.0 [facility] Comment on above: Performed By: #### U A, UMICAO #### [facility] [address] [place], [place] [phone] Anesthesia Resident: Nandini Acevedo MD Protein Ql (U) Negative Normal NEG [facility] Comment on above: Performed By: #### U A, UMICAO #### [facility] [address] [place], [place] 1270683 Anesthesia Resident: Nandini Acevedo MD Spec. [place],Ur 1.025 High 1.010-1.[address] [facility] Comment on above: Performed By: #### U A, UMICAO #### [address] [place], [place] [id number] Anesthesia Resident: Nandini Acevedo MD Urobilinogen,Ur Normal Normal 0.0-1.0 [facility] Comment on above: Performed By: #### U A, UMICAO #### [facility] [address] [place] [address] [place] [address] Anesthesia Resident: Nandiin Acevedo MD Urinalysis,Microon 5 Amorphous sediment LM Ql (Urine sed) 2+ Abnormal NONE [facility] Comment on above: Performed By: #### U A, UMICAO #### [address] [place] [address] Anesthesia Resident: Nandini Acevedo MD Epithelial cells LM Ql (Urine sed) 0 TO 2 Normal 0-25 [facility] Comment on above: Performed By: #### U A, UMICAO #### [facility] [address] [place] [address] Anesthesia Resident: Nandini Acevedo MD Urine RBC's 0 TO 2 Normal 0-2 [facility] Comment on above: Performed By: #### U A, UMICAO #### [facility] [address] [place] [address] [place] [address] Anesthesia Resident: Nandini Acevedo MD Urine WBC's 2 TO 5 Normal 0-5 [facility] Comment on above: Performed By: #### U A, UMICAO #### [facility] [address] [place] [address] Anesthesia Resident: Nandini Acevedo MD HCG ( test) Ql (U)o n 11-03-2024 Interpretation and review of laboratory results Abnormal [facility] re Preg Test, Ur Positive Negative [facility] macro (dipstick) panel (U)on 11-03-2024 Bilirubin, UA Negative Negative - 4(70) +++ mg/dL [facility] Blood, UA Negative Negative - 50 Issac/mcL [facility] Clarity, UA Clear [facility] re Color, UA Yellow [facility] Glucose, UA Negative Negative - 1999(110) ++++ mg/dL [facility] Interpretation and review of laboratory results Normal [facility] Ketones, UA Negative Negative - 160(16) ++++ mg/dL [facility] Leukocytes, UA Negative Negative - 500+++ Christo/mcL [facility] Nitrite, UA Negative Negative - Positive [facility] pH, UA 5 5 - 9 [facility] e Protein, UA Negative Negative - 1999(20) ++++ mg/dL [facility] Spec Grav, UA 1.03 1 - 1.03 [facility] Urobilinogen, UA 1.0 0.2 - 12 mg/dL [facility] ALL CBC WITH AUTO DIFFon BASOPHILS ABSOLUTE AUTO 0 [facility] Basophils/100 WBC (Bld) 0.5 % 0.2 - 2.0 % [facility] Eosinophils/100 WBC (Bld) 1.9 % 0.9 - 7.0 % [facility] Erythrocyte distribution width (RBC) [Ratio] 12.1 % 11.0 - 15.0 % [facility] Hematocrit (Bld) [Volume fraction] 40.1 % 36.0 - 48.0 % [facility] Hemoglobin (Bld) [Mass/Vol] 13.5 g/dL 12.0 - 16.0 g/dL [facility] IMMATURE GRANULOCYTES ABS AUTO 0.03 [facility] Immature granulocytes/100 WBC (Bld) 0.4 % 0.0 - 0.5 % [facility] Interpretation and review of laboratory results Abnormal [facility] re LYMPHOCYTES ABSOLUTE AUTO 1.7 [facility] Lymphocytes/100 WBC (Bld) 23.9 % 20.5 - 60.0 % [facility] MCH (RBC) [Entitic mass] 30.3 pg 26.7 - 34.0 pg [facility] MCHC (RBC) [Mass/Vol] 33.7 g/dL 29.9 - 35.2 g/dL [facility] MCV (RBC) [Entitic vol] 90.1 fL 81.0 - 99.0 fL [facility] MONOCYTES ABSOLUTE AUTO 0.5 [facility] Monocytes/100 WBC (Bld) 7.4 % 1.7 - 12.0 % [facility] NEUTROPHILS ABSOLUTE AUTO 4.8 [facility] Neutrophils/100 WBC (Bld) 65.9 % 43.0 - 75.0 % [facility] Platelet mean volume (Bld) [Entitic vol] 8.7 fL Low 9.5 - 13.5 fL [facility] TBH EO # 0.1 [facility] TBH PLT 299 [facility] RBC 4.45 [facility] WBC 7.3 [facility] e CLINISYNC [facility] Screenson 05-11-2024 Screens [id number] 1.00TIFF Normal [facility] Ambulatory Visit Summaryon 0 2024 [...] PM EDT With: Yonis MIRANDA MD Where: [facility] General Surgery [place] Normal [facility] Patient Educationon 05-10-20 Patient Education Caregiving Antibiotic [...] Follow these instructions at home: ? Take [id number] and prescription medicines as told by your [...] (more content not included)... Normal [facility] Urology Office/Clinic Noteon 2024 Urology [...] back normal. 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 Also had a difficult PO recovery and had a CT scan done in the ER which indicated her Mirena is not in the correct spot. States she plans to f/u with her agronomy research manager. We did speak about how some pts [...] Bactrim SS 1 tab prn -F/u with SENIOR COUNSEL to discuss IUD/different form of control -F/u [...] Contact Information EMILIANA STEPHENS, JANNETH Barreto, URL [address] [place] [address] [phone] Additional Instructions: 6 mos (no labs) Patient [...] (more content not included)... Normal [facility] Comment on above: Result Comment: Elec tronically Signed By: JANNETH SMITH PA-C\.br\Date and Time Signed: 05/10/24 09:55 EDT\.br\Electronically Co-Signed By: Ondina Parra\Shilpibr\Date and Time Co-Signed: 05/10/24 09:51 EDT Outside Colonoscopyon 2023 Outside Colonoscopy [id number]#1. 00TIFF [facility] Lab Reportson 04-28-2024 Lab Reports [id number]#1 .00TIFF [facility] Consent for Procedure/Surger yon 03-09-2024 Consent for Procedure/Surgery [id number]#1 .00TIFF [facility] Ambulatory Visit Summaryon 0 03-08-2024 Ambulatory Visit Summary ROSALIE RODRÍGUEZ V :1995 Visit Date:03/08/2024 Ambulatory Visit Instructions Your Care Team Attending Physician - RUTH CLARK, Yonis Mckenzie Primary Care Physician - Poli CLARK, Melodie Referring Physician - Poli CLARK, Melodie This Is Your Medications List [...] JANNETH SMITH PA-C Where: [facility] Physician Referralon Physician Referral [id number]#1 .00TIFF [facility] Physician Referralon 024 Physician Referral [id number]#1 .00TIFF Normal [facility] Consent for Procedure/Surger yon 02-09-2024 Consent for Procedure/Surgery [id number]# 1.00TIFF Normal [facility] Consent for Treatmenton 03- Consent for Treatment [id number]#1 .00TIFF [facility] IntraOperative Documentson 0 02-09-2024 IntraOperative Documents [id number]# 1.00TIFF [facility] Main OR Intraoperative Recor don 02-09-2024 Main OR Intraoperative Record IntraOp Document Type FTURO Summary Primary Physician: Dieter REMY MD Finalized Date/Time: 02/09/24 08:32:09 Pt. Name: ROSALIE RODRÍGUEZ/Sex: 1995 Female Med Rec #: [id number] Physician: Dieter REMY MD Financial #: [id number] Pt. Type: O Room/Bed: / Admit/Disch: 02/09/24 [...] Bianca Quesada Role Performed Surgeon - Primary Utility Inspector - Primary Scrub - Primary Time In [...] REMY MD, Verified (If Participants Сергей VALENZUELA, CNOR, Applicable) Maryam Quesada CST, Kimberly A Time [...] RN, Ruthann 02/09/24 08:32 Normal [facility] Main OR Preoperative Recordo n 02-09-2024 Main OR Preoperative Record Holding Area Document Type FTURO Summary Primary Physician: Dietre REMY MD Finalized Date/Time: 02/09/24 08:08:52 Pt. Name: ROSALIE RODRÍGUEZ/Sex: 1995 Female Med Rec #: [id number] Physician: Dieter REMY MD Financial #: [id number] Pt. Type: O Room/Bed: / Admit/Disch: 02/09/24 [...] RN, Ruthann 02/09/24 08:08 Normal [facility] Operative Reporton Operative Report Patient: ASHLEE RODRÍGUEZ [...] of her recurrent urinary tract infections.. Normal [facility] Comment on above: Result Comment: Elec tronically Signed By: REMY MD, Dieter R\.br\Date and Time Signed: 02/09/24 08:36 EDT Outpatient Surgery Discharge Instructionon 02-09-2024 Outpatient Surgery Discharge Instruction [id number]# 1.00TIFF Normal [facility] RAD - MISCon 01-29-2024 RAD - MISC [id number]#1 .00TIFF Normal [facility] C Urineon 01-21-2024 Bacteria identified Cx Nom (U) Microbiology PROCEDURE: Urine Culture [R1] SOURCE: U CleanCatch BODY SITE: COLLECTED DATE/TIME: 01/19/2024 10:53 EST RECEIVED DATE/TIME: 01/19/2024 19:24 EST START DATE/TIME: 01/19/2024 19:24 EST FREE TEXT SOURCE: JANNETH SMITH PA-C, PA-C, JANNETH Barreto FINAL REPORTS Final Report [] Verified Date/Time: 01/21/2024 07:11 EST 5,000 cfu/ml Mixed skin contaminants Performing Locations R1: This test was performed at: [facility], [address] [place] [address], [facility]- , , [facility] Comment on above: Performed By: #### 2 [id number] ####[facility] [address] [place] [address] RAD - Ultrasound Reporton RAD - Ultrasound Report [id number]# 1.00TIFF [facility] Screenson 01-21-2024 Screens [id number]#1 .00TIFF [facility] Ambulatory Visit Summaryon 0 01-19-2024 [...] JANNETH SMITH PA-C, URL When: Where: [address] [place] [address] Medications What How Much When Instructions New sulfamethoxazole-trim ethoprim (Bactrim 400 mg-80 mg Tab) 1 Tablets By Mouth Every day as needed for UTI prevention Refills: 3 Pickup at [facility]/pharmacy #[id number] Unchanged guanfacine (guanfacine [...] physician if questions or concerns Pharmacy Information [facility]/pharmacy #[id number]: [address], [place] [phone] Allergies No Known Allergies No Known Medication [...] urinati (more content not included)... Normal [facility] Patient Educationon 01-19-20 24 Patient Education [...] this condition includes: ? Antibiotic medicine. ? Rous-avo-xiwyqji medicines to treat discomfort. ? Drinking enough [...] these instructions at home: Medicines ? Take rfup-byl-bksqgau and prescription medicines only as told by [...] (more content not included)... Normal [facility] BNPon 04-17-2023 Natriuretic peptide B (Bld) [Mass/Vol] 246.0 pg/mL Normal <=450.0 [facility] Comment on above: Performed By: #### I NSULIN #### [facility] [address] [place] [address] Dr. Saray Souza CARDIAC NELI ADMITon 023 CK [Catalytic activity/Vol] 47 U/L Normal 26-192 [facility] Comment on above: Performed By: #### I NSULIN #### [facility] [address] [place] [address] Dr. Saray Souza CK.MB [Mass/Vol] 1.02 ng/mL Normal <=3.60 [facility] Comment on above: Performed By: #### I NSULIN #### [facility] [address] [place] [address] Dr. Saray Souza HSTROP 4.5 pg/mL Normal 4.0-51.3 [facility] Comment on above: Result Comment: CUT- OFF POINTS HAVE BEEN ESTABLISHED BASED ON THE FOURTH UNIVERSAL DEFINITIONS OF MYOCARDIAL INFARCTION. THE UPPER REFERENCE LIMIT (URL) OF TROPONIN, DEFINED THE 99TH PERCENTILE OF cTnI DISTRIBUTION IN A REFERENCE POPULATION, HAS BEEN CONFIRMED THE DECISION THRESHOLD FOR [place] DIAGNOSIS. Performed By: #### I NSULIN #### [facility] [address] [place] [address] Dr. Saray Souza FRANKLIN 36 ng/mL Normal 9-82 [facility] Comment on above: Performed By: #### I NSULIN #### [facility] [address] [place] [address] Dr. Saray Souza CBC W MANUAL DIFFon 04-17-20 23 ATYPICAL LYMPH # Normal [facility] Comment on above: Performed By: #### C BCMAN #### [facility] [address] [place] [address] Dr. Saray Souza ATYPICAL LYMPH % Normal [facility] Comment on above: Performed By: #### C BCMAN #### [facility] [address] [place] [address] Dr. Saray Souza BAND # 0.3 103/ul Normal 0.0-0.3 [facility] Comment on above: Performed By: #### C BCMAN #### [facility] [address] [place] [address] Dr. Saray Souza BAND % 1 % Normal 0-5 [facility] Comment on above: Performed By: #### C BCMAN #### [facility] [address] [place] [address] Dr. Saray Souza BASOM # 0.00 103/ul Normal 0.00-0.10 [facility] Comment on above: Performed By: #### C BCMAN #### [facility] [address] [place] [address] Dr. Saray Souza BASOM % 0.0 % Critically low 0.2-2.0 [facility] Comment on above: Performed By: #### C BCMAN #### [facility] [address] [place] [address] Dr. Saray Souza BLAST # Normal [facility] Comment on above: Performed By: #### C BCMAN #### [facility] [address] [place] [address] Dr. Saray Souza BLAST % Normal [facility] Comment on above: Performed By: #### C BCMAN #### [facility] [address] [place] [address] Dr. Saray Souza CORRECTED WBC Normal 4.0-11.0 [facility] Comment on above: Performed By: #### C BCMAN #### [facility] [address] [place] [address] Dr. Saray Souza EOS # 0.00 103/ul Normal 0.00-0.70 [facility] Comment on above: Performed By: #### C BCMAN #### [facility] [address] [place] [address] Dr. Saray Souza EOS% 0.0 % Critically low 0.9-7.0 [facility] Comment on above: Performed By: #### C EDGARDO #### [facility] [address] [place] [address] Dr. Saray Souza HCT 43.6 % Normal 36.0-48.0 [facility] Comment on above: Performed By: #### C EDGARDO #### [facility] [address] [address] [address] Saray Souza HGB 14.7 g/dl Normal 12.0-16.0 [facility] Comment on above: Performed By: #### C EDGARDO #### [facility] [address] [place] [address] Dr. Saray Souza LYMPHM # 1.55 103/ul Normal 1.20-3.80 [facility] Comment on above: Performed By: #### C EDGARDO #### [facility] [address] [place] [address] Dr. Saray Souza LYMPHM% 6.0 % Critically low 20.5-60.0 [facility] Comment on above: Performed By: #### C EDGARDO #### [facility] [address] [place] [address] Dr. Saray Souza MCH 30.3 pg Normal 26.7-34.0 [facility] Comment on above: Performed By: #### C EDGARDO #### [facility] [address] [place] [address] Dr. Saray Souza MCHC 33.7 g/dl Normal 29.9-35.2 [facility] Comment on above: Performed By: #### C EDGARDO #### [facility] [address] [place] [address] Dr. Saray Souza MCV 89.9 fL Normal 81.0-99.0 [facility] Comment on above: Performed By: #### C EDGARDO #### [facility] [address] [place] [address] Dr. Saray Souza METAMYELOCYTE # Normal [facility] Comment on above: Performed By: #### C EDGARDO #### [facility] [address] [address] [address] Saray Souza METAMYELOCYTE % Normal [facility] Comment on above: Performed By: #### C EDGARDO #### [facility] [address] [address] [address] Saray Souza MONOM# 2.06 103/ul Critically high 0.30-0.80 [facility] Comment on above: Performed By: #### C EDGARDO #### [facility] [address] [address] [address] Saray Souza MONOM% 8.0 % Normal 1.7-12.0 [facility] Comment on above: Performed By: #### C EDGARDO #### [facility] [address] [place] [address] Dr. Saray Souza MPV 8.8 fL Critically low 9.5-13.5 [facility] Comment on above: Performed By: #### C EDGARDO #### [facility] [address] [place] [address] Dr. Saray Souza MYELOCYTE # Normal [facility] Comment on above: Performed By: #### C EDGARDO #### [facility] [address] [place] [address] Dr. Saray Souza MYELOCYTE % Normal [facility] Comment on above: Performed By: #### C EDGARDO #### [facility] [address] [place] [address] Dr. Saray Souza NRBC Normal [facility] Comment on above: Performed By: #### C EDGARDO #### [facility] [address] [place] [address] Dr. Saray Souza PLT 397 103/ul Normal 150-450 [facility] Comment on above: Performed By: #### C EDGARDO #### [facility] [address] [place] [address] Dr. Saray Souza RBC 4.85 106/ul Normal 4.20-5.40 [facility] Comment on above: Performed By: #### C EDGARDO #### [facility] [address] [place] [address] Dr. Saray Souza RDW 12.0 % Normal 11.0-15.0 [facility] Comment on above: Performed By: #### C BCMAN #### [facility] [address] [place] [address] Dr. Saray Souza SEG # 21.93 103/ul Critically high 1.40-6.50 [facility] Comment on above: Performed By: #### C BCMAN #### [facility] [address] [place] [address] Dr. Saray Souza SEG % 85.0 % Critically high 43.0-75.0 [facility] Comment on above: Performed By: #### C BCMAN #### [facility] [address] [place] [address] Dr. Saray Souza WBC 25.8 103/ul Critically high 4.0-11.0 [facility] Comment on above: Performed By: #### C DAVIDMAN #### [facility] [address] [place] [address] Dr. Saray Souza CULTURE URINEon 04-17-2023 CULTURE URINE Culture Observations : LORENZO TO FOLLOW. Isolate 1 Enterococcus faecalis 20,000 cfu/mL of Normal [facility] Comment on above: Performed By: #### C BC #### [facility] [address] [place] [address] Dr. Saray Souza ER URINE PROFILEon 3 Bilirubin Ql (U) Negative Normal NEGATIVE [facility] Comment on above: Performed By: #### C BC #### [facility] [address] [place] [address] Dr. Saray Souza Clarity (U) CLEAR Normal CLEAR [facility] Comment on above: Performed By: #### C BC #### [facility] [address] [place] [address] Dr. Saray Souza Color (U) LT. YELLOW Normal YELLOW [facility] Comment on above: Performed By: #### C BC #### [facility] [address] [place] [address] Dr. Saray Souza ERUAHD A micrscopic examination will be performed if indicated. Normal [facility] Comment on above: Performed By: #### C BC #### [facility] [address] [address] [address] Saray Souza Glucose Ql (U) Negative Normal NEGATIVE [facility] Comment on above: Performed By: #### C BC #### [facility] [address] [address] [address] Saray Souza Hemoglobin Ql (U) Negative Normal NEGATIVE [facility] Comment on above: Performed By: #### C BC #### [facility] [address] [place] [address] Dr. Saray Souza Ketones Ql (U) Negative Normal NEGATIVE [facility] Comment on above: Performed By: #### C BC #### [facility] [address] [place] [address] Dr. Saray Souza LEUKOCYTES SMALL Abnormal NEGATIVE [facility] Comment on above: Performed By: #### C BC #### [facility] [address] [place] [address] Dr. Saray Souza Nitrite Ql (U) Negative Normal NEGATIVE [facility] Comment on above: Performed By: #### C BC #### [facility] [address] [place] [address] Dr. Saray Souza pH (U) 6.5 [pH] Normal 5-9 [facility] Comment on above: Performed By: #### C BC #### [facility] [address] [place] [address] Dr. Saray Souza SPEC GRAVITY 1.025 Normal 1.005-<=1.025 [facility] Comment on above: Performed By: #### C BC #### [facility] [address] [place] [address] Dr. Saray Souza UA PROTEIN Negative Normal NEGATIVE/ TRACE [facility] Comment on above: Performed By: #### C BC #### [facility] [address] [place] [address] Dr. Saray Souza UR MICRO IND INDICATED Normal [facility] Comment on above: Performed By: #### C BC #### [facility] [address] [place] [address] Dr. Saray Souza Urobilinogen Qn (U) 0.2 {Janine'U}/dL Normal 0.2 - 1. 0 [facility] Comment on above: Performed By: #### C BC #### [facility] [address] [place] [address] Dr. Saray Souza URon 04-17-2023 , QUAL Negative Normal NEGATIVE [facility] Comment on above: Performed By: #### C BC #### [facility] [address] [place] [address] Dr. Saray Souza PROF 14(COMP METB)on 023 Albumin [Mass/Vol] 3.0 g/dL Critically low 3.4-5.0 [facility] Comment on above: Performed By: #### I NSULIN #### [facility] [address] [place] [address] Dr. Saray Souza Albumin/Globulin [Mass ratio] 0.9 {ratio} Normal [facility] Comment on above: Performed By: #### I NSULIN #### [facility] [address] [place] [address] Dr. Saray Souza ALP [Catalytic activity/Vol] 54 U/L Normal 46-116 [facility] Comment on above: Performed By: #### I NSULIN #### [facility] [address] [place] [address] Dr. Saray Souza ALT [Catalytic activity/Vol] 27 U/L Normal 14-59 [facility] Comment on above: Performed By: #### I NSULIN #### [facility] [address] [place] [address] Dr. Saray Souza Anion gap [Moles/Vol] 12.9 mmol/L Normal [facility] Comment on above: Performed By: #### I NSULIN #### [facility] [address] [place] [address] Dr. Saray Souza AST [Catalytic activity/Vol] 12 U/L Critically low 15-37 [facility] Comment on above: Performed By: #### I NSULIN #### [facility] [address] [address] [address] Saray Souza Bilirubin [Mass/Vol] 0.3 mg/dL Normal 0.2-1.0 [facility] Comment on above: Performed By: #### I NSULIN #### [facility] [address] [place] [address] Dr. Saray Souza Calcium [Mass/Vol] 8.1 mg/dL Critically low 8.5-10.1 [facility] Comment on above: Performed By: #### I NSULIN #### [facility] [address] [place] [address] Dr. Saray Souza Chloride [Moles/Vol] 102 mmol/L Normal 98-107 [facility] Comment on above: Performed By: #### I NSULIN #### [facility] [address] [place] [address] Dr. Saray Souza CO2 [Moles/Vol] 26.2 mmol/L Normal 21.0-32.0 [facility] Comment on above: Performed By: #### I NSULIN #### [facility] [address] [place] [address] Dr. Saray Souza Creatinine [Mass/Vol] 0.87 mg/dL Normal 0.55-1.02 [facility] Comment on above: Performed By: #### I NSULIN #### [facility] [address] [place] [address] Dr. Saray Souza EGFR-AF TUNISIAN >60 Normal >=60 [facility] Comment on above: Performed By: #### I NSULIN #### [facility] [address] [place] [address] Dr. Saray Souza EGFR-NON AF TUNISIAN >60 Normal >=60 [facility] Comment on above: Performed By: #### I NSULIN #### [facility] [address] [place] [address] Dr. Saray Sozua Globulin (S) [Mass/Vol] 3.2 g/dL Normal [facility] Comment on above: Performed By: #### I NSULIN #### [facility] [address] [place] [address] Dr. Saray Souza Glucose [Mass/Vol] 206 mg/dL Critically high 74-106 [facility] Comment on above: Performed By: #### I NSULIN #### [facility] [address] [place] [address] Dr. Saray Souza Potassium [Moles/Vol] 4.1 mmol/L Normal 3.5-5.1 [facility] Comment on above: Performed By: #### I NSULIN #### [facility] [address] [place] [address] Dr. Saray Souza Protein [Mass/Vol] 6.2 g/dL Critically low 6.4-8.2 [facility] Comment on above: Performed By: #### I NSULIN #### [facility] [address] [place] [address] Dr. Saray Souza Sodium [Moles/Vol] 137 mmol/L Normal 136-145 [facility] Comment on above: Performed By: #### I NSULIN #### [facility] [address] [place] [address] Dr. Saray Souza Urea nitrogen [Mass/Vol] 19.0 mg/dL Critically high 7.0-18.0 [facility] Comment on above: Performed By: #### I NSULIN #### [facility] [address] [place] [address] Dr. Saray Souza Urea nitrogen/Creatinine [Mass ratio] 21.8 mg/mg Normal [facility] Comment on above: Performed By: #### I NSULIN #### [facility] [address] [place] [address] Dr. Saray Souza TSHon 04-17-2023 TSH 0.553 uIU/mL Normal 0.358-3.740 [facility] Comment on above: Performed By: #### I NSULIN #### [facility] [address] [place] [address] Dr. Saray Souza URINE MICROSCOPIC ONLYon BACTERIA TRACE Abnormal NONE SEEN [facility] Comment on above: Performed By: #### C BC #### [facility] [address] [place] [address] Dr. Saray Souza Bacteria identified Cx Nom (U) INDICATED Normal [facility] Comment on above: Performed By: #### C BC #### [facility] [address] [place] [address] Dr. Saray Souza CAST NONE SEEN Normal NONE SEEN [facility] Comment on above: Performed By: #### C BC #### [facility] [address] [place] [address] Dr. Saray Souza Crystals LM Nom (Urine sed) NONE SEEN Normal NONE SEEN [facility] Comment on above: Performed By: #### C BC #### [facility] [address] [place] [address] Dr. Saray Souza Epithelial cells LM Ql (Urine sed) RARE Normal NONE SEEN /RARE [facility] Comment on above: Performed By: #### C BC #### [facility] [address] [place] [address] Dr. Saray Souza MUCOUS NONE SEEN Normal NONE SEEN [facility] Comment on above: Performed By: #### C BC #### [facility] [address] [place] [address] Dr. Saray Souza RBC 0-2 Normal 0-2 [facility] Comment on above: Performed By: #### C BC #### [facility] [address] [place] [address] Dr. Saray Souza WBC 5-10 Abnormal NONE SEEN [facility] Comment on above: Performed By: #### C BC #### [facility] [address] [place] [address] Dr. Saray Souza XR CHEST 2 Von [...] Date: 2023-04-17 10:45 Normal [facility] INSULINon 04-07-2023 Insulin 11.3 uIU/mL Normal 2.6-24.9 [facility] Comment on above: Performed By: #### I NSULIN #### [facility] [address] [place] [address] Dr. aSray Souza US KIDNEYS BLADDERon 023 US KIDNEYS [...] Date: 2023-04-04 08:22 Normal [facility] INSULINon 04-02-2023 Insulin 37.5 uIU/mL Critically high 2.6-24.9 [facility] Comment on above: Performed By: #### I NSULIN #### [facility] [address] [place] [address] Dr. Saray Souza CBC AUTO DIFFon 04-01-2023 BASO # 0.0 103/ul Normal 0.0-0.1 [facility] Comment on above: Performed By: #### C BC #### [facility] [address] [place] [address] Dr. Saray Souza Basophils/100 WBC (Bld) 0.5 % Normal 0.2-2.0 [facility] Comment on above: Performed By: #### C BC #### [facility] [address] [place] [address] Dr. Saray Souza EO # 0.2 103/ul Normal 0.0-0.7 [facility] Comment on above: Performed By: #### C BC #### [facility] [address] [place] [address] Dr. Saray Souza Eosinophils/100 WBC (Bld) 2.3 % Normal 0.9-7.0 [facility] Comment on above: Performed By: #### C BC #### [facility] [address] [place] [address] Dr. Saray Souza Erythrocyte distribution width (RBC) [Ratio] 11.9 % Normal 11.0-15.0 [facility] Comment on above: Performed By: #### C BC #### [facility] [address] [place] [address] Dr. Saray Souza Hematocrit (Bld) [Volume fraction] 42.2 % Normal 36.0-48.0 [facility] Comment on above: Performed By: #### C BC #### [facility] [address] [place] [address] Dr. Saray Souza Hemoglobin (Bld) [Mass/Vol] 13.7 g/dL Normal 12.0-16.0 [facility] Comment on above: Performed By: #### C BC #### [facility] [address] [place] [address] Dr. Saray Souza IG # 0.02 10e3/ul Normal 0.00-0.03 [facility] Comment on above: Performed By: #### C BC #### [facility] [address] [place] [address] Dr. aSray Souza IG % 0.3 % Normal 0.0-0.5 [facility] Comment on above: Performed By: #### C BC #### [facility] [address] [place] [address] Dr. Saray Souza LYMPH # 1.6 103/ul Normal 1.2-3.8 [facility] Comment on above: Performed By: #### C BC #### [facility] [address] [place] [address] Dr. Saray Souza Lymphocytes/100 WBC (Bld) 21.5 % Normal 20.5-60.0 [facility] Comment on above: Performed By: #### C BC #### [facility] [address] [place] [address] Dr. Saray Souza MANUAL DIFF REQ NO Normal [facility] Comment on above: Performed By: #### C BC #### [facility] [address] [place] [address] Dr. Saray Souza MCH (RBC) [Entitic mass] 30.0 pg Normal 26.7-34.0 [facility] Comment on above: Performed By: #### C BC #### [facility] [address] [place] [address] Dr. Saray Souza MCHC (RBC) [Mass/Vol] 32.5 g/dL Normal 29.9-35.2 [facility] Comment on above: Performed By: #### C BC #### [facility] [address] [place] [address] Dr. Saray Souza MCV (RBC) [Entitic vol] 92.5 fL Normal 81.0-99.0 [facility] Comment on above: Performed By: #### C BC #### [facility] [address] [place] [address] Dr. Saray Souza MONO # 0.7 103/ul Normal 0.3-0.8 [facility] Comment on above: Performed By: #### C BC #### [facility] [address] [place] [address] Dr. Saray Souza Monocytes/100 WBC (Bld) 9.6 % Normal 1.7-12.0 [facility] Comment on above: Performed By: #### C BC #### [facility] [address] [place] [address] Dr. Saray Souza NEUT # 5.0 103/ul Normal 1.4-6.5 [facility] Comment on above: Performed By: #### C BC #### [facility] [address] [place] [address] Dr. Saray Souza Neutrophils/100 WBC (Bld) 65.8 % Normal 43.0-75.0 [facility] Comment on above: Performed By: #### C BC #### [facility] [address] [address] [address] Saray Souza Platelet mean volume (Bld) [Entitic vol] 8.9 fL Critically low 9.5-13.5 [facility] Comment on above: Performed By: #### C BC #### [facility] [address] [address] [address] Saray Souza PLT 293 103/ul Normal 150-450 [facility] Comment on above: Performed By: #### C BC #### [facility] [address] [address] [address] Saray Souza RBC 4.56 106/ul Normal 4.20-5.40 [facility] Comment on above: Performed By: #### C BC #### [facility] [address] [place] [address] Dr. Saray Souza WBC 7.5 103/ul Normal 4.0-11.0 [facility] Comment on above: Performed By: #### C BC #### [facility] [address] [place] [address] Dr. Saray Souza CULTURE URINEon 04-01-2023 CULTURE URINE Culture Observations : MODERATE GROWTH OF MIXED GENITAL CARMELO. NO POTENTIAL PATHOGENS SEEN. Normal [facility] Comment on above: Performed By: #### C BC #### [facility] [address] [place] [address] Dr. Saray Souza FREE THYROXINE INDEX T7on FTI 2.51 Normal 1.30-4.50 [facility] Comment on above: Performed By: #### I NSULIN #### [facility] [address] [place] [address] Dr. Saray Souza T3U 33.0 % Normal 30.0-39.0 [facility] Comment on above: Performed By: #### I NSULIN #### [facility] [address] [place] [address] Dr. Saray Souza T4 [Mass/Vol] 7.60 ug/dL Normal 4.80-13.90 [facility] Comment on above: Performed By: #### I ANA #### [facility] [address] [address] [address] Saray FRIENDon 04-01-2023 Iron [Mass/Vol] 151.0 ug/dL Normal 50.0-170.0 [facility] Comment on above: Performed By: #### C EDGARDO #### [facility] [address] [place] [address] Dr. Saray Souza PROF 14(COMP METB)on 023 Albumin [Mass/Vol] 3.7 g/dL Normal 3.4-5.0 [facility] Comment on above: Performed By: #### C EDGARDO #### [facility] [address] [place] [address] Dr. Saray Souza Albumin/Globulin [Mass ratio] 1.1 {ratio} Normal [facility] Comment on above: Performed By: #### C EDGARDO #### [facility] [address] [place] [address] Dr. Saray Souza ALP [Catalytic activity/Vol] 81 U/L Normal 46-116 [facility] Comment on above: Performed By: #### C EDGARDO #### [facility] [address] [place] [address] Dr. Saray Souza ALT [Catalytic activity/Vol] 33 U/L Normal 14-59 [facility] Comment on above: Performed By: #### C EDGARDO #### [facility] [address] [place] [address] Dr. Saray Souza Anion gap [Moles/Vol] 10.2 mmol/L Normal [facility] Comment on above: Performed By: #### C EDGARDO #### [facility] [address] [place] [address] Dr. Saray Souza AST [Catalytic activity/Vol] 22 U/L Normal 15-37 [facility] Comment on above: Performed By: #### C EDGARDO #### [facility] [address] [place] [address] Dr. Saray Souza Bilirubin [Mass/Vol] 0.3 mg/dL Normal 0.2-1.0 [facility] Comment on above: Performed By: #### C BCMAN #### [facility] [address] [address] [address] Saray Souza Calcium [Mass/Vol] 8.6 mg/dL Normal 8.5-10.1 [facility] Comment on above: Performed By: #### C BCMAN #### [facility] [address] [address] [address] Saray Souza Chloride [Moles/Vol] 105 mmol/L Normal 98-107 [facility] Comment on above: Performed By: #### C BCMAN #### [facility] [address] [place] [address] Dr. Saray Souza CO2 [Moles/Vol] 30.4 mmol/L Normal 21.0-32.0 [facility] Comment on above: Performed By: #### C BCMAN #### [facility] [address] [place] [address] Dr. Saray Souza Creatinine [Mass/Vol] 0.72 mg/dL Normal 0.55-1.02 [facility] Comment on above: Performed By: #### C BCMAN #### [facility] [address] [place] [address] Dr. Saray Souza EGFR-AF TUNISIAN >60 Normal >=60 [facility] Comment on above: Performed By: #### C BCMAN #### [facility] [address] [place] [address] Dr. Saray Souza EGFR-NON AF TUNISIAN >60 Normal >=60 [facility] Comment on above: Performed By: #### C BCMAN #### [facility] [address] [place] [address] Dr. Saray Souza Globulin (S) [Mass/Vol] 3.5 g/dL Normal [facility] Comment on above: Performed By: #### C BCMAN #### [facility] [address] [place] [address] Dr. Saray Souza Glucose [Mass/Vol] 89 mg/dL Normal 74-106 [facility] Comment on above: Performed By: #### C BCMAN #### [facility] [address] [address] [address] Saray Souza Potassium [Moles/Vol] 3.6 mmol/L Normal 3.5-5.1 [facility] Comment on above: Performed By: #### C EDGARDO #### [facility] [address] [address] [address] Saray Souza Protein [Mass/Vol] 7.2 g/dL Normal 6.4-8.2 [facility] Comment on above: Performed By: #### C EDGARDO #### [facility] [address] [place] [address] Dr. Saray Souza Sodium [Moles/Vol] 142 mmol/L Normal 136-145 [facility] Comment on above: Performed By: #### C EDGARDO #### [facility] [address] [place] [address] Dr. Saray Souza Urea nitrogen [Mass/Vol] 12.0 mg/dL Normal 7.0-18.0 [facility] Comment on above: Performed By: #### C EDGARDO #### [facility] [address] [place] [address] Dr. Saray Souza Urea nitrogen/Creatinine [Mass ratio] 16.7 mg/mg Normal [facility] Comment on above: Performed By: #### C EDGARDO #### [facility] [address] [place] [address] Dr. Saray Souza TSHon 04-01-2023 TSH 1.708 uIU/mL Normal 0.358-3.740 [facility] Comment on above: Performed By: #### I NSULIN #### [facility] [address] [place] [address] Dr. Saray Souza UA RANDOM W/MICROSCOPICon BACTERIA SMALL Abnormal NONE SEEN [facility] Comment on above: Performed By: #### I NSULIN #### [facility] [address] [place] [address] Dr. Saray Souza Bilirubin Ql (U) Negative Normal NEGATIVE [facility] Comment on above: Performed By: #### I NSULIN #### [facility] [address] [place] [address] Dr. Saray Souza CAST NONE SEEN Normal NONE SEEN [facility] Comment on above: Performed By: #### I NSULIN #### [facility] [address] [place] [address] Dr. Saray Souza Clarity (U) CLEAR Normal CLEAR [facility] Comment on above: Performed By: #### I NSULIN #### [facility] [address] [place] [address] Dr. Saray Souza Color (U) YELLOW Normal YELLOW [facility] Comment on above: Performed By: #### I NSULIN #### [facility] [address] [place] [address] Dr. Saray Souza Crystals LM Nom (Urine sed) NONE SEEN Normal NONE SEEN [facility] Comment on above: Performed By: #### I NSULIN #### [facility] [address] [place] [address] Dr. Saray Souza Epithelial cells LM Ql (Urine sed) FEW Abnormal NONE SEEN /RARE [facility] Comment on above: Performed By: #### I NSULIN #### [facility] [address] [place] [address] Dr. Saray Souza Glucose Ql (U) Negative Normal NEGATIVE [facility] Comment on above: Performed By: #### I NSULIN #### [facility] [address] [place] [address] Dr. Saray Souza Hemoglobin Ql (U) Negative Normal NEGATIVE [facility] Comment on above: Performed By: #### I NSULIN #### [facility] [address] [place] [address] Dr. Saray Souza Ketones Ql (U) TRACE Abnormal NEGATIVE [facility] Comment on above: Performed By: #### I NSULIN #### [facility] [address] [place] [address] Dr. Saray Souza LEUKOCYTES SMALL Abnormal NEGATIVE [facility] Comment on above: Performed By: #### I NSULIN #### [facility] [address] [place] [address] Dr. Saray Souza MUCOUS NONE SEEN Normal NONE SEEN [facility] Comment on above: Performed By: #### I NSULIN #### [facility] [address] [place] [address] Dr. Saray Souza Nitrite Ql (U) Negative Normal NEGATIVE [facility] Comment on above: Performed By: #### I NSULIN #### [facility] [address] [place] [address] Dr. Saray Souza pH (U) 5.5 [pH] Normal 5-9 [facility] Comment on above: Performed By: #### I NSULIN #### [facility] [address] [place] [address] Dr. Saray Souza RBC 0-2 Normal 0-2 [facility] Comment on above: Performed By: #### I NSULIN #### [facility] [address] [place] [address] Dr. Saray Souza SPEC GRAVITY >=1.030 Abnormal 1.005-<=1.025 [facility] Comment on above: Performed By: #### I NSULIN #### [facility] [address] [place] [address] Dr. Saray Souza UA PROTEIN Negative Normal NEGATIVE/ TRACE [facility] Comment on above: Performed By: #### I NSULIN #### [facility] [address] [place] [address] Dr. Saray Souza Urobilinogen Qn (U) 0.2 {Janine'U}/dL Normal 0.2 - 1. 0 [facility] Comment on above: Performed By: #### I NSULIN #### [facility] [address] [place] [address] Dr. Saray Souza WBC 5-10 Abnormal NONE SEEN [facility] Comment on above: Performed By: #### I NSULIN #### [facility] [address] [place] [address] Dr. Saray Souza INSULINon 02-14-2023 Insulin 12.8 uIU/mL Normal 2.6-24.9 [facility] Comment on above: Performed By: #### C BC #### [facility] [address] [place] [address] Dr. Saray Souza CBC AUTO DIFFon 02-13-2023 BASO # 0.0 103/ul Normal 0.0-0.1 [facility] Comment on above: Performed By: #### C BC #### [facility] [address] [place] [address] Dr. Saray Souza Basophils/100 WBC (Bld) 0.4 % Normal 0.2-2.0 [facility] Comment on above: Performed By: #### C BC #### [facility] [address] [place] [address] Dr. Saray Souza EO # 0.1 103/ul Normal 0.0-0.7 [facility] Comment on above: Performed By: #### C BC #### [facility] [address] [place] [address] Dr. Saray Souza Eosinophils/100 WBC (Bld) 1.6 % Normal 0.9-7.0 [facility] Comment on above: Performed By: #### C BC #### [facility] [address] [place] [address] Dr. Saray Souza Erythrocyte distribution width (RBC) [Ratio] 11.9 % Normal 11.0-15.0 [facility] Comment on above: Performed By: #### C BC #### [facility] [address] [place] [address] Dr. Saray Souza Hematocrit (Bld) [Volume fraction] 41.9 % Normal 36.0-48.0 [facility] Comment on above: Performed By: #### C BC #### [facility] [address] [place] [address] Dr. Saray Souza Hemoglobin (Bld) [Mass/Vol] 13.7 g/dL Normal 12.0-16.0 [facility] Comment on above: Performed By: #### C BC #### [facility] [address] [place] [address] Dr. Saray Souza IG # 0.02 10e3/ul Normal 0.00-0.03 [facility] Comment on above: Performed By: #### C BC #### [facility] [address] [address] [address] Saray Souza IG % 0.3 % Normal 0.0-0.5 [facility] Comment on above: Performed By: #### C BC #### [facility] [address] [address] [address] Saray Souza LYMPH # 1.4 103/ul Normal 1.2-3.8 [facility] Comment on above: Performed By: #### C BC #### [facility] [address] [place] [address] Dr. Saray Souza Lymphocytes/100 WBC (Bld) 18.6 % Critically low 20.5-60.0 [facility] Comment on above: Performed By: #### C BC #### [facility] [address] [place] [address] Dr. Saray Souza MANUAL DIFF REQ NO Normal [facility] Comment on above: Performed By: #### C BC #### [facility] [address] [place] [address] Dr. Saray Souza MCH (RBC) [Entitic mass] 29.9 pg Normal 26.7-34.0 [facility] Comment on above: Performed By: #### C BC #### [facility] [address] [place] [address] Dr. Saray Souza MCHC (RBC) [Mass/Vol] 32.7 g/dL Normal 29.9-35.2 [facility] Comment on above: Performed By: #### C BC #### [facility] [address] [place] [address] Dr. Saray Souza MCV (RBC) [Entitic vol] 91.5 fL Normal 81.0-99.0 [facility] Comment on above: Performed By: #### C BC #### [facility] [address] [place] [address] Dr. Saray Souza MONO # 0.6 103/ul Normal 0.3-0.8 [facility] Comment on above: Performed By: #### C BC #### [facility] [address] [place] [address] Dr. Saray Souza Monocytes/100 WBC (Bld) 8.3 % Normal 1.7-12.0 [facility] Comment on above: Performed By: #### C BC #### [facility] [address] [place] [address] Dr. Saray Souza NEUT # 5.5 103/ul Normal 1.4-6.5 [facility] Comment on above: Performed By: #### C BC #### [facility] [address] [place] [address] Dr. Saray Souza Neutrophils/100 WBC (Bld) 70.8 % Normal 43.0-75.0 [facility] Comment on above: Performed By: #### C BC #### [facility] [address] [place] [address] Dr. Saray Souza Platelet mean volume (Bld) [Entitic vol] 9.0 fL Critically low 9.5-13.5 [facility] Comment on above: Performed By: #### C BC #### [facility] [address] [place] [address] Dr. Saray Souza PLT 271 103/ul Normal 150-450 [facility] Comment on above: Performed By: #### C BC #### [facility] [address] [place] [address] Dr. Saary Souza RBC 4.58 106/ul Normal 4.20-5.40 [facility] Comment on above: Performed By: #### C BC #### [facility] [address] [place] [address] Dr. Saray Souza WBC 7.7 103/ul Normal 4.0-11.0 [facility] Comment on above: Performed By: #### C BC #### [facility] [address] [place] [address] Dr. Saray Souza FREE THYROXINE INDEX T7on FTI 2.56 Normal 1.30-4.50 [facility] Comment on above: Performed By: #### I NSULIN #### [facility] [address] [place] [address] Dr. Saray Souza T3U 36.0 % Normal 30.0-39.0 [facility] Comment on above: Performed By: #### I NSULIN #### [facility] [address] [place] [address] Dr. Saray Souza T4 [Mass/Vol] 7.10 ug/dL Normal 4.80-13.90 [facility] Comment on above: Performed By: #### I NSULIN #### [facility] [address] [place] [address] Dr. Saray Souza IRONon 02-13-2023 Iron [Mass/Vol] 130.0 ug/dL Normal 50.0-170.0 [facility] Comment on above: Performed By: #### C BCMAN #### [facility] [address] [place] [address] Dr. Saray Souza PROF 14(COMP METB)on 023 Albumin [Mass/Vol] 3.8 g/dL Normal 3.4-5.0 [facility] Comment on above: Performed By: #### I NSULIN #### [facility] [address] [place] [address] Dr. Saray Souza Albumin/Globulin [Mass ratio] 1.2 {ratio} Normal [facility] Comment on above: Performed By: #### I NSULIN #### [facility] [address] [place] [address] Dr. Saray Souza ALP [Catalytic activity/Vol] 82 U/L Normal 46-116 [facility] Comment on above: Performed By: #### I NSULIN #### [facility] [address] [place] [address] Dr. Saray Souza ALT [Catalytic activity/Vol] 25 U/L Normal 14-59 [facility] Comment on above: Performed By: #### I NSULIN #### [facility] [address] [place] [address] Dr. Saray Souza Anion gap [Moles/Vol] 12.7 mmol/L Normal [facility] Comment on above: Performed By: #### I NSULIN #### [facility] [address] [place] [address] Dr. Saray Souza AST [Catalytic activity/Vol] 19 U/L Normal 15-37 [facility] Comment on above: Performed By: #### I NSULIN #### [facility] [address] [address] [address] Saray Souza Bilirubin [Mass/Vol] 0.3 mg/dL Normal 0.2-1.0 [facility] Comment on above: Performed By: #### I NSULIN #### [facility] [address] [address] [address] Saray Souza Calcium [Mass/Vol] 8.8 mg/dL Normal 8.5-10.1 [facility] Comment on above: Performed By: #### I NSULIN #### [facility] [address] [place] [address] Dr. Saray Souza Chloride [Moles/Vol] 101 mmol/L Normal 98-107 [facility] Comment on above: Performed By: #### I NSULIN #### [facility] [address] [place] [address] Dr. Saray Souza CO2 [Moles/Vol] 27.3 mmol/L Normal 21.0-32.0 [facility] Comment on above: Performed By: #### I NSULIN #### [facility] [address] [place] [address] Dr. Saray Souza Creatinine [Mass/Vol] 0.69 mg/dL Normal 0.55-1.02 [facility] Comment on above: Performed By: #### I NSULIN #### [facility] [address] [place] [address] Dr. Saray Souza EGFR-AF TUNISIAN >60 Normal >=60 [facility] Comment on above: Performed By: #### I NSULIN #### [facility] [address] [place] [address] Dr. Saray Souza EGFR-NON AF TUNISIAN >60 Normal >=60 [facility] Comment on above: Performed By: #### I NSULIN #### [facility] [address] [place] [address] Dr. Saray Souza Globulin (S) [Mass/Vol] 3.3 g/dL Normal [facility] Comment on above: Performed By: #### I NSULIN #### [facility] [address] [place] [address] Dr. Saray Souza Glucose [Mass/Vol] 83 mg/dL Normal 74-106 [facility] Comment on above: Performed By: #### I NSULIN #### [facility] [address] [place] [address] Dr. Saray Souza Potassium [Moles/Vol] 4.0 mmol/L Normal 3.5-5.1 [facility] Comment on above: Performed By: #### I NSULIN #### [facility] [address] [place] [address] Dr. Saray Souza Protein [Mass/Vol] 7.1 g/dL Normal 6.4-8.2 [facility] Comment on above: Performed By: #### I NSULIN #### [facility] [address] [place] [address] Dr. Saray Souza Sodium [Moles/Vol] 137 mmol/L Normal 136-145 [facility] Comment on above: Performed By: #### I NSULIN #### [facility] [address] [place] [address] Dr. Saray Souza Urea nitrogen [Mass/Vol] 10.0 mg/dL Normal 7.0-18.0 [facility] Comment on above: Performed By: #### I NSULIN #### [facility] [address] [place] [address] Dr. Saray Souza Urea nitrogen/Creatinine [Mass ratio] 14.5 mg/mg Normal [facility] Comment on above: Performed By: #### I NSULIN #### [facility] [address] [place] [address] Dr. Saray Souza TSHon 02-13-2023 TSH 2.745 uIU/mL Normal 0.358-3.740 [facility] Comment on above: Performed By: #### I NSULIN #### [facility] [address] [place] [address] Dr. Saray Souza AMYLASEon 02-04-2023 Amylase [Catalytic activity/Vol] 45 U/L Normal 25-115 [facility] Comment on above: Performed By: #### T SH, CMP, HSTROPN, LIPA, KELLE #### [facility] [address] [place] [address] Dr. Saray Souza CBC AUTO DIFFon 02-04-2023 BASO # 0.0 103/ul Normal 0.0-0.1 [facility] Comment on above: Performed By: #### C BC #### [facility] [address] [place] [address] Dr. Saray Souza Basophils/100 WBC (Bld) 0.4 % Normal 0.2-2.0 [facility] Comment on above: Performed By: #### C BC #### [facility] [address] [place] [address] Dr. Saray Souza EO # 0.1 103/ul Normal 0.0-0.7 [facility] Comment on above: Performed By: #### C BC #### [facility] [address] [place] [address] Dr. Saray Souza Eosinophils/100 WBC (Bld) 1.7 % Normal 0.9-7.0 [facility] Comment on above: Performed By: #### C BC #### [facility] [address] [place] [address] Dr. Saray Souza Erythrocyte distribution width (RBC) [Ratio] 12.0 % Normal 11.0-15.0 [facility] Comment on above: Performed By: #### C BC #### [facility] [address] [place] [address] Dr. Saray Souza Hematocrit (Bld) [Volume fraction] 42.3 % Normal 36.0-48.0 [facility] Comment on above: Performed By: #### C BC #### [facility] [address] [place] [address] Dr. Saray Souza Hemoglobin (Bld) [Mass/Vol] 13.9 g/dL Normal 12.0-16.0 [facility] Comment on above: Performed By: #### C BC #### [facility] [address] [place] [address] Dr. Saray Souza IG # 0.03 10e3/ul Normal 0.00-0.03 [facility] Comment on above: Performed By: #### C BC #### [facility] [address] [place] [address] Dr. Saary Souza IG % 0.4 % Normal 0.0-0.5 [facility] Comment on above: Performed By: #### C BC #### [facility] [address] [place] [address] Dr. Saray Souza LYMPH # 1.5 103/ul Normal 1.2-3.8 [facility] Comment on above: Performed By: #### C BC #### [facility] [address] [place] [address] Dr. Saray Souza Lymphocytes/100 WBC (Bld) 20.4 % Critically low 20.5-60.0 [facility] Comment on above: Performed By: #### C BC #### [facility] [address] [place] [address] Dr. Saray Souza MANUAL DIFF REQ NO Normal [facility] Comment on above: Performed By: #### C BC #### [facility] [address] [place] [address] Dr. Saray Souza MCH (RBC) [Entitic mass] 30.0 pg Normal 26.7-34.0 [facility] Comment on above: Performed By: #### C BC #### [facility] [address] [place] [address] Dr. Saray Souza MCHC (RBC) [Mass/Vol] 32.9 g/dL Normal 29.9-35.2 [facility] Comment on above: Performed By: #### C BC #### [facility] [address] [place] [address] Dr. Saray Souza MCV (RBC) [Entitic vol] 91.2 fL Normal 81.0-99.0 [facility] Comment on above: Performed By: #### C BC #### [facility] [address] [place] [address] Dr. Saray Souza MONO # 0.6 103/ul Normal 0.3-0.8 [facility] Comment on above: Performed By: #### C BC #### [facility] [address] [place] [address] Dr. Saray Souza Monocytes/100 WBC (Bld) 7.7 % Normal 1.7-12.0 [facility] Comment on above: Performed By: #### C BC #### [facility] [address] [place] [address] Dr. Saray Souza NEUT # 5.2 103/ul Normal 1.4-6.5 [facility] Comment on above: Performed By: #### C BC #### [facility] [address] [place] [address] Dr. Saray Souza Neutrophils/100 WBC (Bld) 69.4 % Normal 43.0-75.0 [facility] Comment on above: Performed By: #### C BC #### [facility] [address] [place] [address] Dr. Saray Souza Platelet mean volume (Bld) [Entitic vol] 9.0 fL Critically low 9.5-13.5 [facility] Comment on above: Performed By: #### C BC #### [facility] [address] [place] [address] Dr. Saray Souza PLT 292 103/ul Normal 150-450 [facility] Comment on above: Performed By: #### C BC #### [facility] [address] [place] [address] Dr. Saray Souza RBC 4.64 106/ul Normal 4.20-5.40 [facility] Comment on above: Performed By: #### C BC #### [facility] [address] [place] [address] Dr. Saray Souza WBC 7.5 103/ul Normal 4.0-11.0 [facility] Comment on above: Performed By: #### C BC #### [facility] [address] [place] [address] Dr. Saray Souza CULTURE URINEon 02-04-2023 CULTURE URINE Culture Observations : LIGHT GROWTH OF MIXED GENITAL CARMELO. NO POTENTIAL PATHOGENS SEEN. Normal [facility] Comment on above: Performed By: #### C BC #### [facility] [address] [place] [address] Dr. Saray Souza ER URINE PROFILEon 3 Bilirubin Ql (U) Negative Normal NEGATIVE [facility] Comment on above: Performed By: #### C BC #### [facility] [address] [place] [address] Dr. Saray Souza Clarity (U) CLEAR Normal CLEAR [facility] Comment on above: Performed By: #### C BC #### [facility] [address] [place] [address] Dr. Saray Souza Color (U) LT. YELLOW Normal YELLOW [facility] Comment on above: Performed By: #### C BC #### [facility] [address] [place] [address] Dr. Saray PARKERAHHumera A micrscopic examination will be performed if indicated. Normal [facility] Comment on above: Performed By: #### C BC #### [facility] [address] [place] [address] Dr. Saray Souza Glucose Ql (U) Negative Normal NEGATIVE [facility] Comment on above: Performed By: #### C BC #### [facility] [address] [place] [address] Dr. Saray Souza Hemoglobin Ql (U) Negative Normal NEGATIVE [facility] Comment on above: Performed By: #### C BC #### [facility] [address] [place] [address] Dr. Saray Souza Ketones Ql (U) Negative Normal NEGATIVE [facility] Comment on above: Performed By: #### C BC #### [facility] [address] [place] [address] Dr. Saray Souza LEUKOCYTES MODERATE Abnormal NEGATIVE [facility] Comment on above: Performed By: #### C BC #### [facility] [address] [place] [address] Dr. Saray Souza Nitrite Ql (U) Negative Normal NEGATIVE [facility] Comment on above: Performed By: #### C BC #### [facility] [address] [place] [address] Dr. Saray Souza pH (U) 5.5 [pH] Normal 5-9 [facility] Comment on above: Performed By: #### C BC #### [facility] [address] [place] [address] Dr. Saray Souza SPEC GRAVITY >=1.030 Abnormal 1.005-<=1.025 [facility] Comment on above: Performed By: #### C BC #### [facility] [address] [place] [address] Dr. Saray Souza UA PROTEIN Negative Normal NEGATIVE/ TRACE [facility] Comment on above: Performed By: #### C BC #### [facility] [address] [place] [address] Dr. Saray Souza UR MICRO IND INDICATED Normal [facility] Comment on above: Performed By: #### C BC #### [facility] [address] [place] [address] Dr. Saray Souza Urobilinogen Qn (U) 0.2 {Janine'U}/dL Normal 0.2 - 1. 0 [facility] Comment on above: Performed By: #### C BC #### [facility] [address] [place] [address] Dr. Saray Souza LIPASEon 02-04-2023 Lipase [Catalytic activity/Vol] 97.0 U/L Normal 73.0-393.0 [facility] Comment on above: Performed By: #### T SH, CMP, HSTROPN, LIPA, KELLE #### [facility] [address] [place] [address] Dr. Saray Souza URon 02-04-2023 , QUAL Negative Normal NEGATIVE [facility] Comment on above: Performed By: #### C BC #### [facility] [address] [place] [address] Dr. Saray Souza PROF 14(COMP METB)on 023 Albumin [Mass/Vol] 3.5 g/dL Normal 3.4-5.0 [facility] Comment on above: Performed By: #### T SH, CMP, HSTROPN, LIPA, KELLE #### [facility] [address] [place] [address] Dr. Saray Souza Albumin/Globulin [Mass ratio] 1.2 {ratio} Normal [facility] Comment on above: Performed By: #### T SH, CMP, HSTROPN, LIPA, KELLE #### [facility] [address] [place] [address] Dr. Saray Souza ALP [Catalytic activity/Vol] 78 U/L Normal 46-116 [facility] Comment on above: Performed By: #### T SH, CMP, HSTROPN, LIPA, KELLE #### [facility] [address] [place] [address] Dr. Saray Souza ALT [Catalytic activity/Vol] 24 U/L Normal 14-59 [facility] Comment on above: Performed By: #### T SH, CMP, HSTROPN, LIPA, KELLE #### [facility] [address] [place] [address] Dr. Saray Souza Anion gap [Moles/Vol] 7.9 mmol/L Normal [facility] Comment on above: Performed By: #### T SH, CMP, HSTROPN, LIPA, KELLE #### [facility] [address] [place] [address] Dr. Saray Souza AST [Catalytic activity/Vol] 16 U/L Normal 15-37 [facility] Comment on above: Performed By: #### T SH, CMP, HSTROPN, LIPA, KELLE #### [facility] [address] [place] [address] Dr. Saray Souza Bilirubin [Mass/Vol] 0.3 mg/dL Normal 0.2-1.0 [facility] Comment on above: Performed By: #### T SH, CMP, HSTROPN, LIPA, KELLE #### [facility] [address] [place] [address] Dr. Saray Souza Calcium [Mass/Vol] 8.6 mg/dL Normal 8.5-10.1 [facility] Comment on above: Performed By: #### T SH, CMP, HSTROPN, LIPA, KELLE #### [facility] [address] [address] [address] Saray Souza Chloride [Moles/Vol] 105 mmol/L Normal 98-107 [facility] Comment on above: Performed By: #### T SH, CMP, HSTROPN, LIPA, KELLE #### [facility] [address] [address] [address] Saray Souza CO2 [Moles/Vol] 28.9 mmol/L Normal 21.0-32.0 [facility] Comment on above: Performed By: #### T SH, CMP, HSTROPN, LIPA, KELLE #### [facility] [address] [place] [address] Dr. Saray Souza Creatinine [Mass/Vol] 0.67 mg/dL Normal 0.55-1.02 [facility] Comment on above: Performed By: #### T SH, CMP, HSTROPN, LIPA, KELLE #### [facility] [address] [place] [address] Dr. Saray Souza EGFR-AF TUNISIAN >60 Normal >=60 [facility] Comment on above: Performed By: #### T SH, CMP, HSTROPN, LIPA, KELLE #### [facility] [address] [place] [address] Dr. Saray Souza EGFR-NON AF TUNISIAN >60 Normal >=60 [facility] Comment on above: Performed By: #### T SH, CMP, HSTROPN, LIPA, KELLE #### [facility] [address] [place] [address] Dr. Saray Souza Globulin (S) [Mass/Vol] 3.0 g/dL Normal [facility] Comment on above: Performed By: #### T SH, CMP, HSTROPN, LIPA, KELLE #### [facility] [address] [place] [address] Dr. Saray Souza Glucose [Mass/Vol] 97 mg/dL Normal 74-106 [facility] Comment on above: Performed By: #### T SH, CMP, HSTROPN, LIPA, KELLE #### [facility] [address] [address] [address] Saray Souza Potassium [Moles/Vol] 3.8 mmol/L Normal 3.5-5.1 [facility] Comment on above: Performed By: #### T SH, CMP, HSTROPN, LIPA, KELLE #### [facility] [address] [address] [address] Saray Souza Protein [Mass/Vol] 6.5 g/dL Normal 6.4-8.2 [facility] Comment on above: Performed By: #### T SH, CMP, HSTROPN, LIPA, KELLE #### [facility] [address] [place] [address] Dr. Saray Souza Sodium [Moles/Vol] 138 mmol/L Normal 136-145 [facility] Comment on above: Performed By: #### T SH, CMP, HSTROPN, LIPA, KELLE #### [facility] [address] [address] [address] Saray Souza Urea nitrogen [Mass/Vol] 13.0 mg/dL Normal 7.0-18.0 [facility] Comment on above: Performed By: #### T SH, CMP, HSTROPN, LIPA, KELLE #### [facility] [address] [place] [address] Dr. Saray Souza Urea nitrogen/Creatinine [Mass ratio] 19.4 mg/mg Normal [facility] Comment on above: Performed By: #### T SH, CMP, HSTROPN, LIPA, KELLE #### [facility] [address] [place] [address] Dr. Saray Souza TROPONIN, HIGH SENSITIVITYon 02-04-2023 HSTROP 4.0 pg/mL Normal 4.0-51.3 [facility] Comment on above: Result Comment: CUT- OFF POINTS HAVE BEEN ESTABLISHED BASED ON THE FOURTH UNIVERSAL DEFINITIONS OF MYOCARDIAL INFARCTION. THE UPPER REFERENCE LIMIT (URL) OF TROPONIN, DEFINED THE 99TH PERCENTILE OF cTnI DISTRIBUTION IN A REFERENCE POPULATION, HAS BEEN CONFIRMED THE DECISION THRESHOLD FOR [place] DIAGNOSIS. Performed By: #### T SH, CMP, HSTROPN, LIPA, EKLLE #### [facility] [address] [place] [address] Dr. Saray Souza TSHon 02-04-2023 TSH 2.478 uIU/mL Normal 0.358-3.740 [facility] Comment on above: Performed By: #### T SH, CMP, HSTROPN, LIPA, KELLE #### [facility] [address] [place] [address] Dr. Saray Souza URINE MICROSCOPIC ONLYon BACTERIA MODERATE Abnormal NONE SEEN [facility] Comment on above: Performed By: #### C BC #### [facility] [address] [place] [address] Dr. Saray Souza Bacteria identified Cx Nom (U) INDICATED Normal [facility] Comment on above: Performed By: #### C BC #### [facility] [address] [place] [address] Dr. Saray Souza CAST NONE SEEN Normal NONE SEEN [facility] Comment on above: Performed By: #### C BC #### [facility] [address] [place] [address] Dr. Saray Souza Crystals LM Nom (Urine sed) NONE SEEN Normal NONE SEEN [facility] Comment on above: Performed By: #### C BC #### [facility] [address] [place] [address] Dr. Saray Souza Epithelial cells LM Ql (Urine sed) MODERATE Abnormal NONE SEEN /RARE [facility] Comment on above: Performed By: #### C BC #### [facility] [address] [place] [address] Dr. Saray Souza MUCOUS NONE SEEN Normal NONE SEEN [facility] Comment on above: Performed By: #### C BC #### [facility] [address] [place] [address] Dr. Saray Souza RBC 5-10 Abnormal 0-2 [facility] Comment on above: Performed By: #### C BC #### [facility] [address] [place] [address] Dr. Saray Souza WBC 10-20 Abnormal NONE SEEN [facility] Comment on above: Performed By: #### C BC #### [facility] [address] [address] [address] Saray Souza Covid-19 PCR ([facility])on 09-24 SARS-CoV-2 (COVID-19) RNA DAYDAY+probe Ql (Unsp spec) Not detected Normal NOT DETECTED [facility] Comment on above: Result Comment: [...] for this test is supported by the [place] of Health and Human Service's declaration that [...] By: #### C BC #### [facility] [address] [place] [address] Dr. Saray Souza INFLUENZA A AND B AGon 10-20 [facility] SEE BELOW Normal [facility] Comment on above: Result Comment: Nega tive for Flu A protein angiten. Infection due to Flu A cannot be ruled out. Flu A angiten in the sample may be below the detection limit of the test. Performed By: #### C BC #### [facility] [address] [place] [address] Dr. Saray Sou[facility] BEL[facility] Normal [facility] Comment on above: Result Comment: Nega tive for Flu B protein antigen. Infection due to Flu B cannot be ruled out. Flu B antigen in the sample may be below the detection limit of the test. Performed By: #### C BC #### [facility] Laboratory [address] [place] [address] Dr. Saray Souza INFLUENZA A AG Negative Normal NEGATIVE SEE COMMENT [facility] Comment on above: Performed By: #### C BC #### [facility] Laboratory [address] [place] [address] Dr. Saray Souza INFLUENZA B AG Negative Normal NEGATIVE SEE COMMENT [facility] Comment on above: Performed By: #### C BC #### [facility] Laboratory [address] [place] [address] Dr. Saray Souza INTERNAL CONTROLS Within Normal Limits Normal Wi thin Normal Limits [facility] Comment on above: Performed By: #### C BC #### [facility] Laboratory [address] [place] [address] Dr. Saray Souza STREPT SCREENon 10-20-2022 STREP SCREEN A Positive Abnormal NEGATIVE [facility] Comment on above: Performed By: #### C BC #### [facility] Laboratory [address] [place] [address] Dr. Saray Souza XR SHOULDER RT INJon [...] ADRIANA MENDEZ Date: 2022-07-18 17:05 Normal [facility] MRI SHOULDER RT WO CONon [...] by: ADRIANA MENDEZ Date: 2022-07-10 10:10 Normal [facility] RTon 07-10-20 22 [facility] RT EXAMINATION: [facility]R [facility] RT HISTORY: Impingement syndrome of right shoulder [...] ADRIANA MENDEZ Date: 2022-07-10 10:01 Normal [facility] No Panel Informationon 03-18 Right Eye Reliability was good. Findings include normal observations. Left Eye Reliability was good. Findings include normal observations. Notes I personally reviewed the visual zaldivar performed by this patient on 03/18/22. The visual zaldivar are normal OU with good fixation. 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 Francisco Ayers MD Normal [facility] [employer] [facility] Vital Signs Date Time Vital Sign Value Performing Clinician Facility 05-17-2025 14:18-0400 Body mass index (BMI) [Ratio] 47.1 kg/m2 Kelle BAE Work Phone: [facility] 05-17-2025 14:18-0400 Body weight 148.89 kg Kelle BAE Work Phone: [facility] 05-17-2025 14:18-0400 Diastolic blood pressure 96 mm[Hg] Kelle BAE Work Phone: [facility] 05-17-2025 14:18-0400 Systolic blood pressure 130 mm[Hg] Kelle BAE Work Phone: [facility] 2025 15:04-0400 Body mass index (BMI) [Ratio] 47.06 kg/m2 Graham Dante DO Work Phone: [facility] 2025 15:04-0400 Body weight 148.78 kg Graham Dante DO Work Phone: [facility] 2025 15:04-0400 Diastolic blood pressure 86 mm[Hg] Graham Dante DO Work Phone: [facility] 2025 15:04-0400 Systolic blood pressure 132 mm[Hg] Graham Dante DO Work Phone: [facility] 04-27-2025 13:06-0400 Body mass index (BMI) [Ratio] 46.85 kg/m2 Kelle BAE Work Phone: [facility] 04-27-2025 13:06-0400 Body weight 148.1 kg Kelle Mosley PA Work Phone: [facility] 04-27-2025 13:06-0400 Diastolic blood pressure 90 mm[Hg] Kelle Wilkesboro PA Work Phone: [facility] 04-27-2025 13:06-0400 Systolic blood pressure 124 mm[Hg] Kelle Melany PA Work Phone: [facility] 04-12-2025 14:56-0400 Body mass index (BMI) [Ratio] 46.96 kg/m2 Graham Dante DO Work Phone: [facility] 04-12-2025 14:56-0400 Body weight 148.44 kg Graham Dante DO Work Phone: [facility] 04-12-2025 14:56-0400 Diastolic blood pressure 82 mm[Hg] Graham Dante DO Work Phone: [facility] 04-12-2025 14:56-0400 Systolic blood pressure 130 mm[Hg] Graham Dante DO Work Phone: [facility] 03-29-2025 15:44-0400 Body mass index (BMI) [Ratio] 45.99 kg/m2 Kelle Melany PA Work Phone: [facility] 03-29-2025 15:44-0400 Body weight 145.38 kg Kelle Melany PA Work Phone: [facility] 03-29-2025 15:44-0400 Diastolic blood pressure 84 mm[Hg] Kelle Melany PA Work Phone: [facility] 03-29-2025 15:44-0400 Systolic blood pressure 120 mm[Hg] Kelle [place] PA Work Phone: [facility] 03-15-2025 15:24-0400 Body mass index (BMI) [Ratio] 46.2 kg/m2 Graham Dante DO Work Phone: [facility] 03-15-2025 15:24-0400 Body weight 146.06 kg Graham Dante DO Work Phone: [facility] 03-15-2025 15:24-0400 Diastolic blood pressure 74 mm[Hg] Graham Dante DO Work Phone: [facility] 03-15-2025 15:24-0400 Systolic blood pressure 110 mm[Hg] Graham Dante DO Work Phone: [facility] 01-04-2025 16:08-0500 Body mass index (BMI) [Ratio] 45.77 kg/m2 Kelle Melany PA Work Phone: [facility] 01-04-2025 16:08-0500 Body weight 144.7 kg Kelle Melany PA Work Phone: [facility] 01-04-2025 16:08-0500 Diastolic blood pressure 78 mm[Hg] Kelle Wilkesboro PA Work Phone: [facility] 01-04-2025 16:08-0500 Systolic blood pressure 120 mm[Hg] Kelle Melany PA Work Phone: [facility] 12-27-2024 09:53-0500 Body mass index (BMI) [Ratio] 45.69 kg/m2 Kelle [place] PA Work Phone: [facility] 12-27-2024 09:53-0500 Body weight 144.43 kg Kelle Melany PA Work Phone: [facility] 12-27-2024 09:53-0500 Diastolic blood pressure 78 mm[Hg] Kelle [place] PA Work Phone: [facility] 12-27-2024 09:53-0500 Systolic blood pressure 130 mm[Hg] Kelle Melany PA Work Phone: [facility] 12-05-2024 15:49-0500 Body mass index (BMI) [Ratio] 45.92 kg/m2 Graham Dante DO Work Phone: [facility] 12-05-2024 15:49-0500 Body weight 145.15 kg Graham Dante DO Work Phone: [facility] 12-05-2024 15:49-0500 Diastolic blood pressure 70 mm[Hg] Graham Dante DO Work Phone: [facility] 12-05-2024 15:49-0500 Systolic blood pressure 120 mm[Hg] Graham Dante DO Work Phone: [facility] 12-02-2024 19:42-0500 Diastolic blood pressure 80 mm[Hg] [facility] 12-02-2024 19:42-0500 Systolic blood pressure 122 mm[Hg] Nic Estevez MD Work Phone: [facility] [employer] 12-02-2024 19:40-0500 Body temperature 99.39 [degF] Nic [facility]stevez MD [facility] 12-02-2024 19:38-0500 Heart rate 105 /min Nic Estevez MD Work Phone: [facility] [employer] 12-02-2024 19:38-0500 Respiratory rate 18 /min Nic Estevez MD Work Phone: [facility] [employer] 12-02-2024 19:38-0500 SaO2% (BldA) [Mass fraction] 99 % Nic Estevez MD Work Phone: [facility] [employer] 11-03-2024 13:25-0500 Body mass index (BMI) [Ratio] 46.4 kg/m2 Nom Nurse [facility] 11-03-2024 13:25-0500 Body weight 146.69 kg Nom Nurse [facility] 08-29-2024 10:53-0400 Body mass index (BMI) [Ratio] 45.89 kg/m2 Kelle BAE Work Phone: [facility] 08-29-2024 10:53-0400 Body weight 145.06 kg Kelle BAE Work Phone: [facility] 08-29-2024 10:53-0400 Diastolic blood pressure 70 mm[Hg] Kelle BAE Work Phone: [facility] 08-29-2024 10:53-0400 Systolic blood pressure 120 mm[Hg] Kelle Melany PA Work Phone: [facility] 07-26-2024 08:36-0400 Body height 177.8 cm Kelle Melany PA Work Phone: [facility] 07-26-2024 08:36-0400 Body mass index (BMI) [Ratio] 46.06 kg/m2 Kelle Melany PA Work Phone: [facility] 07-26-2024 08:36-0400 Body weight 145.6 kg Kelle Melany PA Work Phone: [facility] 07-26-2024 08:36-0400 Diastolic blood pressure 84 mm[Hg] Kelle Melany PA Work Phone: [facility] 07-26-2024 08:36-0400 Systolic blood pressure 130 mm[Hg] Kelle Melany PA Work Phone: [facility] 2024 09:04-0400 Blood Pressure Location JANNETH SMITH [facility] 2024 09:04-0400 Diastolic blood pressure 82 mm[Hg] JANNETH EMILIANA [facility] 2024 09:04-0400 Heart rate 74 /min JANNETH EMILIANA [facility] 2024 09:04-0400 Respiratory rate 16 /min JANNETH EMILIANA [facility] 2024 09:04-0400 Systolic blood pressure 125 mm[Hg] JANNETH EMILIANA [facility] 03-08-2024 14:09-0400 Blood Pressure Location Yonis MIRANDA [facility] [place] 03-08-2024 14:09-0400 Diastolic blood pressure 84 mm[Hg] Yonis NILL [facility] [place] 03-08-2024 14:09-0400 Heart rate 76 /min Yonis NILL [facility] [place] 03-08-2024 14:09-0400 Respiratory rate 16 /min Yonis NILL [facility] [place] 03-08-2024 14:09-0400 Systolic blood pressure 118 mm[Hg] Yonis NILL [facility] [place] 01-19-2024 09:34-0500 Blood Pressure Location JANNETH MADRIGALRY [facility] 01-19-2024 09:34-0500 Diastolic blood pressure 84 mm[Hg] JANNETH EMILIANA [facility] 01-19-2024 09:34-0500 Heart rate 80 /min JANNETH EMILIANA [facility] 01-19-2024 09:34-0500 Respiratory rate 16 /min JANNETH EMILIANA [facility] 01-19-2024 09:34-0500 Systolic blood pressure 132 mm[Hg] JANNETH EMILIANA [facility] 12-02-2023 08:40-0500 Body height 180.34 cm Taniya Mary Grace Other [employer] Other 12-02-2023 08:40-0500 Body mass index (BMI) [Ratio] 45.1 kg/m2 Taniya Mary Grace Other [employer] Other 12-02-2023 08:40-0500 Body temperature 97.5 [degF] Taniya Mary Grace Other [employer] Other 12-02-2023 08:40-0500 Body weight 146.69 kg Taniya Mary Grace Other [employer] Other 12-02-2023 08:40-0500 Diastolic blood pressure 83 mm[Hg] Taniya Mary Grace Other [employer] Other 12-02-2023 08:40-0500 Respiratory rate 18 /min Taniya Mary Grace Other [employer] Other 12-02-2023 08:40-0500 SaO2% (BldA) [Mass fraction] 98 % Taniya Mary Grace Other [employer] Other 12-02-2023 08:40-0500 Systolic blood pressure 136 mm[Hg] Taniya Mary Grace Other [employer] Other 11-19-2021 15:30-0500 Body height 180.34 cm Nandini Tonilaya Other [employer] Other 11-19-2021 15:30-0500 Body mass index (BMI) [Ratio] 41.56 kg/m2 Nandini Pantoja Other [employer] Other 11-19-2021 15:30-0500 Body weight 135.17 kg Nandini Pantoja Other [employer] Other 11-19-2021 15:30-0500 Diastolic blood pressure 76 mm[Hg] Nandini Pantoja Other [employer] Other 11-19-2021 15:30-0500 Systolic blood pressure 128 mm[Hg] Nandini Pantoja Other [employer] Other Encounters Encounter Date Encounter Type Care Provider Facility Start: 05-19-2025 End: 05-19-2025 Clinisync Result Encounter Kelle BAE Work Phone: [facility] Unsolicited Start: 05-19-2025 End: 05-19-2025 Clinisync Result Encounter Kelle ABE Work Phone: [facility] Unsolicited Start: 05-17-2025 End: 05-17-2025 Bamboo flowsheet Kelle BAE Work Phone: [facility] Start: 05-17-2025 End: 05-17-2025 Bamboo flowsheet Kelle BAE Work Phone: [facility] Start: 05-17-2025 End: 05-17-2025 Clinisync Result Encounter Kelle BAE Work Phone: [facility] Unsolicited Start: 05-17-2025 End: 05-17-2025 Office outpatient visit 15 minutes Kelle BAE Work Phone: [facility] Comment on above: Third trimester preg mat ([facility]); 37 weeks gestation of ([facility]); Polyhydramnios affecting in third trimester ([facility]); H/O herpes zoster virus; induced hypertension, antepartum ([facility]); -induced hypertension in third trimester ([facility]) Start: 05-17-2025 End: 05-17-2025 ambulatory KELLE MOSLEY Not Available Start: 05-15-2025 End: 05-15-2025 Clinisync Result Encounter Graham Dante DO Work Phone: [facility] Unsolicited Start: 05-15-2025 End: 05-15-2025 Clinisync Result Encounter Graham Dante DO Work Phone: [facility] Unsolicited Start: 2025 End: 2025 Office outpatient visit 15 minutes Graham Dante DO Work Phone: [facility] Comment on above: Third trimester preg mat ([facility]); 36 weeks gestation of ([facility]) Start: 2025 End: 2025 ambulatory GRAHAM DANTE [...] 15 minutes Graham Dante DO Work Phone: [facility] Comment on above: Third trimester preg mat; 32 weeks gestation of ; size inconsistent with dates Start: 04-12-2025 End: 04-12-2025 ambulatory GRAHAM DANTE Not Available Start: 04-12-2025 End: 04-12-2025 Bamboo flowsheet Graham Dante DO Work Phone: [facility] Start: 04-12-2025 End: 04-12-2025 Bamboo flowsheet Graham Dante DO Work Phone: [facility] Start: 03-29-2025 End: 03-29-2025 ambulatory KELLE MOSLEY Not Available Start: 03-29-2025 End: 03-29-2025 Office outpatient visit 15 minutes Kelle BAE Work Phone: [facility] Comment on above: Herpes zoster with c omplication (Primary Dx); 30 weeks gestation of ; Third trimester Start: 03-29-2025 End: 03-29-2025 Bamboo flowsheet Kelle BAE Work Phone: [facility] Start: 03-29-2025 End: 03-29-2025 Bamboo flowsheet Kelle BAE Work Phone: [facility] Start: 03-15-2025 End: 03-15-2025 ambulatory GRAHAM DANTE Not Available Start: 03-15-2025 End: 03-15-2025 Office outpatient visit 15 minutes Graham Dante DO Work Phone: [facility] Comment on above: Third trimester preg mat; 28 weeks gestation of ; H/O herpes zoster virus Start: 03-15-2025 End: 03-15-2025 Bamboo flowsheet Graham Dante DO Work Phone: [facility] Start: 03-15-2025 End: 03-15-2025 Bamboo flowsheet Graham Dante DO Work Phone: [facility] Start: 03-06-2025 End: 03-06-2025 Clinisync Result Encounter Graham Dante DO Work Phone: [facility] Unsolicited Start: 03-06-2025 End: 03-06-2025 Clinisync Result Encounter Graham Dante DO Work Phone: [facility] Unsolicited Start: 02-06-2025 End: 02-06-2025 ambulatory GRAHAM HERNANDEZO Not Available Start: 01-23-2025 End: 01-23-2025 ambulatory [...] Clinisync Result Encounter Kelle BAE Work Phone: [facility] Unsolicited Start: 12-27-2024 End: 12-27-2024 Patient encounter procedure Kelle BAE Work Phone: [facility] Start: 12-27-2024 End: 12-27-2024 Periodic preventive med est patient 18-39 yrs Kelle BAE Work Phone: [facility] Comment on above: 17 weeks gestation o f ; Second trimester ; Screening, , for anatomic survey; Exposure to STD; Vaginal discharge; Well woman exam with routine gynecological exam; Sinus congestion Start: 12-27-2024 End: 12-27-2024 ambulatory KELLE MOSLEY Not Available Start: 12-23-2024 End: 12-23-2024 Clinisync Result Encounter Graham Dante DO Work Phone: [facility] External Department Unsolicited Start: 12-23-2024 End: 12-23-2024 Clinisync Result Encounter Graham Dante DO Work Phone: [facility] External Department Unsolicited Start: 12-05-2024 End: 12-05-2024 Office outpatient visit 15 minutes Graham Dante DO Work Phone: [facility] Comment on above: 14 weeks gestation o f ; Second trimester ; Herpes zoster without complication Start: 12-05-2024 End: 12-05-2024 ambulatory GRAHAM DANTE Not Available Start: 12-05-2024 End: 12-05-2024 Bamboo flowsheet Graham Dante DO Work Phone: [facility] Start: 12-05-2024 End: 12-05-2024 Bamboo flowsheet Graham Dante DO Work Phone: [facility] Start: 12-02-2024 End: 12-02-2024 Emergency department patient visit [facility]stevez [facility] Comment on above: Abdominal cramping, bilateral lower quadrant (Primary Dx) Start: 11-25-2024 End: 11-25-2024 ambulatory JANNETH SMITH Facility:[facility] Start: 11-25-2024 End: 11-25-2024 Patient encounter procedure JANNETH SMITH [facility] Start: 11-03-2024 End: 11-03-2024 Office outpatient visit 5 minutes [facility] Dante Nurse [facility] Comment on above: GA: 9w3d Start: 11-03-2024 End: 11-03-2024 ambulatory KELLE MOSLEY Not Available Start: 10-27-2024 End: 10-27-2024 ambulatory JANNETH Mary Lou SMITH Facility:[facility] Start: 10-27-2024 End: 10-27-2024 Patient encounter procedure JANNETH SMITH [facility] Start: 09-28-2024 End: 09-28-2024 Clinisync [...] 08-29-2024 Office outpatient visit 15 minutes Kelle Mosley PA Work Phone: [facility] Comment on above: Encounter for weight management Start: 08-29-2024 End: 08-29-2024 ambulatory KELLE MOSLEY Not Available Start: 07-26-2024 End: 07-26-2024 Bamboo flowsheet Kelle Mosley PA Work Phone: [facility] Start: 07-26-2024 End: 07-26-2024 Bamboo flowsheet Kelle Mosley PA Work Phone: [facility] Start: 07-26-2024 End: 07-26-2024 Office outpatient visit 5 minutes Kelle Mosley PA Work Phone: [facility] Comment on above: Encounter for weight management Start: 07-26-2024 End: 07-26-2024 ambulatory KELLE MOSLEY Not Available Start: 06-27-2024 End: 06-27-2024 ambulatory GRAHAM HERNANDEZO Not Available Start: 05-30-2024 End: 05-30-2024 ambulatory GRAHAM DANTE Not Available Start: 2024 End: 2024 ambulatory Yonis R NILL Facility: [facility] Start: 2024 End: 2024 Patient encounter procedure JANNETH SMITH [facility] Start: 04-27-2024 End: 04-27-2024 ambulatory MD Melodie Ashton Work Phone: [facility] Work Phone: Start: 04-27-2024 End: 04-27-2024 Departed Referred MD Melodie Ashton Work Phone: [facility] [place] [facility] Start: 04-27-2024 End: 04-27-2024 ambulatory Yonis R NILL Facility:[id number] Start: 03-08-2024 End: 03-08-2024 ambulatory Yonis R NILL Facility: [facility] Start: 03-08-2024 End: 03-08-2024 Patient encounter procedure Yonis R NILL [facility] [place] Start: 02-09-2024 End: 02-09-2024 ambulatory Dieter REMY Facility:[facility] Start: 02-09-2024 End: 02-09-2024 Patient encounter procedure Dieter REMY [facility] Start: 01-19-2024 End: 01-19-2024 ambulatory JANNETH SMITH Facility:[facility] Start: 01-19-2024 End: 01-19-2024 Lab Drop off JANNETH SMITH [facility] Start: 01-19-2024 End: 01-19-2024 ambulatory JANNETH SMITH Facility:[facility] Start: 01-19-2024 End: 01-19-2024 Patient encounter procedure JANNETH Barreto EMILIANA [facility] Start: 12-31-2023 ambulatory Yonis MIRANDA Facility:[facility] Start: 12-17-2023 End: 12-17-2023 ambulatory Taniya Mary Grace Other [employer] Other Start: 12-17-2023 Office outpatient vi sit 15 minutes Taniya Mary Grace [facility] Start: 12-07-2023 End: 12-07-2023 ambulatory Taniya Mary Grace Other [employer] Other Start: 12-07-2023 Telephone encounter Taniya Mary Grace [facility] Start: 12-02-2023 End: 12-02-2023 ambulatory Taniya Mary Grace Other [employer] Other Start: 12-02-2023 Office outpatient ne w 30 minutes Taniya Mary Grace [facility] Start: 04-17-2023 End: 04-17-2023 ambulatory SALMA DIAB . Facility:[facility] Start: 04-06-2023 End: 04-07-[address] MELODIE ASHTON . Facility:[facility] Start: 04-04-2023 Encounter for genera l adult medical examination without abnormal findings DR MELODIE ASHTON . [facility] Start: 04-03-2023 End: 04-04-2023 ambulatory [...] Start: 03-18-2022 End: 03-18-2022 ambulatory UNKNOWN PROVIDER Facility:[facility] Start: 11-19-2021 End: 11-19-2021 ambulatory Nandini Pantoja Other [employer] Other Start: 11-19-2021 Office outpatient ne w 30 minutes Nandini Pantoja [facility] Procedures Date Procedure Procedure Detail Performing Clinician Start: 05-19-2025 [facility] TOTAL PROTEIN 24 HOUR URINE Kelle BAE Work Phone: Start: 05-17-2025 US OB BPP W NON-STRESS [...] Work Phone: Start: 04-25-2025 [facility] UA (CLEAN/CATCH) SPECTROGRAPHIC ANALYST/MICRO IF IND. Graham Dante DO Work Phone: Start: 04-12-2025 Urnls dip stick/tabl et rgnt non-auto w/o micrscp Graham Dante DO Work Phone: Start: 03-29-2025 Urnls dip stick/tabl et rgnt non-auto w/o micrscp Kelle BAE Work Phone: Start: 03-15-2025 Urnls dip stick/tabl et rgnt non-auto w/o micrscp Graham Dante DO Work Phone: Start: 03-06-2025 ALL CBC WITH AUTO DIFF Graham Hernandezo DO Work Phone: Start: 01-04-2025 Urnls dip stick/tabl et rgnt non-auto w/o micrscp Kelle BAE Work Phone: Start: 12-27-2024 Urnls dip stick/tabl et rgnt non-auto w/o micrscp Kelle BAE Work Phone: Start: 12-27-2024 IGP,APTIMA HPV,AGE GDLN Kelle BAE Work Phone: Start: 12-27-2024 Microscopic observat ion [Identifier] in Cervix by Cyto stain Graham Hernandezo DO Work Phone: Start: 12-23-2024 BOX TEST Grahamjacobo Hernandez o DO Work Phone: Start: 12-05-2024 Urnls [...] 2) Shingles (RZV) Vaccine (1 of 2) [facility] Start: 07-09-2028 Screening for malign ant neoplasm of cervix [facility] Start: 12-27-2027 Screening for malign ant neoplasm of cervix Pap Smear [facility] Start: 07-24-2025 Influenza vaccination Influenz a Vaccine (Season Ended) [facility] Start: 05-24-2025 End: 05-24-2025 Patient encounter procedure 05/24/2025 2:00 PM EDT Routine [facility] [address] [place] [address] Graham Howell, DO [address] [place] [address] [facility] Start: 05-17-2025 End: 05-17-2026 Alanine aminotransferase [Enzymatic activity/volume] in Serum or Plasma ALT Lab Routine induced hypertension, antepartum ([facility]) Expected: 05/17/2025 (Approximate), Expires: 05/17/2026 [facility] Comment on above: Expected: 05/17/2025 (Approximate), Expires: 05/17/2026 Start: 05-17-2025 End: 05-17-2026 Aspartate aminotransferase [Enzymatic activity/volume] in Serum or Plasma AST Lab Routine induced hypertension, antepartum ([facility]) Expected: 05/17/2025 (Approximate), Expires: 05/17/2026 [facility] Comment on above: Expected: 05/17/2025 (Approximate), Expires: 05/17/2026 Start: 05-17-2025 End: 05-17-2026 CBC W Auto Differential panel - Blood CBC and differential Lab Routine induced hypertension, antepartum ([facility]) Expected: 05/17/2025 (Approximate), Expires: 05/17/2026 [facility] Comment on above: Expected: 05/17/2025 (Approximate), Expires: 05/17/2026 Start: 05-17-2025 End: 05-17-2026 Creatinine [Mass/volume] in Serum or Plasma Creatinine Lab Routine induced hypertension, antepartum ([facility]) Expected: 05/17/2025 (Approximate), Expires: 05/17/2026 [facility] Work Phone: Comment on above: Expected: 05/17/2025 (Approximate), Expires: 05/17/2026 Start: 05-17-2025 End: 05-17-2026 Lactate dehydrogenase [Enzymatic activity/volume] in Serum or Plasma by Lactate to pyruvate reaction Lactate dehydrogenase Lab Routine induced hypertension, antepartum ([facility]) Expected: 05/17/2025, Expires: 05/17/2026 [facility] Comment on above: Expected: 05/17/2025 , Expires: 05/17/2026 Start: 05-17-2025 End: 05-17-2026 Protein, urine, 24 hour Protein, urine, 24 hour Lab Routine induced hypertension, antepartum ([facility]) Expected: 05/17/2025 (Approximate), Expires: 05/17/2026 [facility] Comment on above: Expected: 05/17/2025 (Approximate), Expires: 05/17/2026 Start: 05-17-2025 End: 05-17-2026 Pt and ptt Pt and ptt Lab Routine induced hypertension, antepartum ([facility]) Expected: 05/17/2025, Expires: 05/17/2026 [facility] Comment on above: Expected: 05/17/2025 , Expires: 05/17/2026 Start: 05-17-2025 End: 05-17-2026 Urate [Mass/volume] in Serum or Plasma Uric acid Lab Routine induced hypertension, antepartum ([facility]) Expected: 05/17/2025 (Approximate), Expires: 05/17/2026 [facility] Comment on above: Expected: 05/17/2025 (Approximate), Expires: 05/17/2026 Start: 05-17-2025 End: 05-17-2026 Urea nitrogen [Mass/volume] in Serum or Plasma BUN Lab Routine induced hypertension, antepartum ([facility]) Expected: 05/17/2025, Expires: 05/17/2026 [facility] Comment on above: Expected: 05/17/2025 , Expires: 05/17/2026 Start: 05-17-2025 End: 05-17-2025 Patient encounter procedure [facility] Comment on above: Arrived Start: 2025 End: 2025 Patient encounter procedure [facility] Comment on above: Arrived Start: 2025 End: 2026 CULTURE, GROUP B STREP WITH SUSCEPTIBLITY CULTURE, GROUP B STREP WITH SUSCEPTIBLITY Lab Routine Third trimester ([facility]) Expected: 2025, Expires: 2026 [facility] Work Phone: Comment on above: Expected: [...] PM EDT Routine [facility] [address] [place] [phone] Kelle Mosley PA [address] [place] [address] [facility] Start: 03-08-2025 End: 03-08-2025 Patient encounter procedure 03/08/2025 3:30 PM EDT Routine [facility] [address] [place] [phone] Kelle Mosley PA [address] [place], [place] [phone] [facility] Start: 02-06-2025 End: 02-06-2025 Patient encounter procedure 02/06/2025 3:10 PM EDT Routine [facility] [address] [facility] [place] [phone] Graham Howell DO [address] [place] [address] [facility] Start: 01-23-2025 End: 01-23-2025 Professional / ancillary services management 01/23/2025 11:00 AM EST Ancillary Procedure [facility] [address] [facility] [place] [address] [facility] Start: 01-04-2025 End: [...] AM EST Routine [facility] [address] [place] [phone] Kelle Mosley, PA [address] [place] [address] Arrived [facility] Comment on above: Arrived Start: 12-05-2024 End: 12-05-2024 Patient encounter procedure [facility] Comment on above: Arrived Start: 11-28-2024 End: 11-28-2024 Patient encounter procedure 11/28/2024 9:30 AM EST Office Visit [facility] [address] [place] [phone] Kelle Mosley, PA [address] [place], [place] [phone] [facility] Start: 11-03-2024 End: 11-03-2025 [...] PM EST Initial [facility] [address] [facility] [place] [phone] [facility] Start: 11-03-2024 End: 11-03-2024 Professional / ancillary services management 11/03/2024 12:30 PM EST Ancillary Procedure [facility] [address] [facility] [place] [phone] [facility] Start: 08-29-2024 End: 08-29-2024 Patient encounter procedure 08/29/2024 10:50 AM EDT Office Visit [facility] [address] [facility] [place] [phone] Kelle Mosley PA [address] [place] [address] Arrived [facility] Comment on above: Arrived Start: 07-26-2024 End: 07-26-2024 Patient encounter procedure 07/26/2024 8:30 AM EDT Office Visit [facility] [address] [place] [phone] Kelle Mosley, PA [address] [place] [address] Arrived [facility] Comment on above: Arrived Start: 07-24-2024 COVID-19 Vaccine (3 - 2023-24 season) COVID-19 Vaccine ( season) [facility] Start: 07-24-2024 Influenza vaccination Influenza Vacc ine (#1) [facility] Start: 06-23-2024 Influenza vaccination Flu vaccine (# 1) [facility] Start: 2023 Screening for malign ant neoplasm of cervix [facility] Start: 12-20-2021 Screening for malign ant neoplasm of cervix Pap smear [facility] Start: 2014 Screening for malign ant neoplasm of cervix [facility] Start: 2012 DTaP/Tdap/Td vaccine (1 - Tdap) DTaP/Tdap/Td vaccine (1 - Tdap) [facility] Start: 2012 Hepatitis B vaccine (1 of 3 - 19+ 3-dose series) Hepatitis B vaccine (1 of 3 - 19+ 3-dose series) [facility] Start: 2011 [facility] Start[facility] 2011 Tetanus + diphtheria + acellular pertussis vaccine (product) Tdap [facility] Start: 2008 HIV screening HIV Test [facility] Start: 2006 Varicella vaccine (1 of 2 - 13+ 2-dose series) Varicella vaccine (1 of 2 - 13+ 2-dose series) [facility] Start: 2005 Depression Screen Depression Screen [facility] Start: 1998 COVID-19 Vaccine (1) COVID-19 Vaccin e (1) [facility] Bacteria identified in Urine by Culture Urine culture Microbiology Routine Missed menses Ordered: 11/03/2024 [facility] Comment on above: Ordered: 11/03/2024 CBC W Auto Different ial panel - Blood CBC and differential Lab Routine Missed menses , unspecified gestational age Ordered: 11/03/2024 [facility] Comment on above: Ordered: 11/03/2024 CHLAMYDIA TRACHOMATI S (GENITO/STI) CHLAMYDIA TRACHOMATIS (GENITO/STI) Lab Routine Exposure to STD Ordered: 12/27/2024 [facility] Comment on above: Ordered: 12/27/2024 Cytology Cervical or vaginal smear or scraping study Pap Smear Pathology and Cytology Routine Well woman exam with routine gynecological exam Ordered: 12/27/2024 [facility] Comment on above: Ordered: 12/27/2024 EKG 12 Lead EKG 12 Lead ECG STAT 12/02/2024 8:08 PM EST [facility] Hemoglobin A1c/Hemoglobin.total in Blood Hemoglobin A1c Lab Routine Missed menses , unspecified gestational age Ordered: 11/03/2024 [facility] Comment on above: Ordered: 11/03/2024 Hepatitis B virus hawkins rface Ag [Presence] in Serum or Plasma by Immunoassay Hepatitis B surface antigen Lab Routine Missed menses , unspecified gestational age Ordered: 11/03/2024 [facility] Comment on above: Ordered: 11/03/2024 Hepatitis C virus Ab [Presence] in Serum or Plasma by Immunoassay Hepatitis C antibody Lab Routine Missed menses , unspecified gestational age Ordered: 11/03/2024 [facility] Comment on above: Ordered: 11/03/2024 HIV-1/HIV-2 antigen/antibody combination immunoassay HIV-1 and HIV-2 antibodies Lab Routine Missed menses , unspecified gestational age Ordered: 11/03/2024 [facility] Comment on above: Ordered: 11/03/2024 Human papilloma viru s DNA [Presence] in Unspecified specimen by Probe with amplification HPV DNA probe, amplified Microbiology Routine Well woman exam with routine gynecological exam Ordered: 12/27/2024 [facility] Comment on above: Ordered: 12/27/2024 Neisseria gonorrhoea e DNA [Presence] in Unspecified specimen by DAYDAY with probe detection Neisseria gonorrhea DNA probe, direct Lab Routine Exposure to STD Ordered: 12/27/2024 [facility] Comment on above: Ordered: 12/27/2024 Reagin Ab [Presence] in Serum by RPR RPR Lab Routine Missed menses , unspecified gestational age Ordered: 11/03/2024 [facility] Comment on above: Ordered: 11/03/2024 Rubella antibody, IgG Rubella an tibody, IgG Lab Routine Missed menses , unspecified gestational age Ordered: 11/03/2024 [facility] Comment on above: Ordered: 11/03/2024 SURESWAB(R) ADVANCED VAGINITIS PLUS, TMA SURESWAB(R) ADVANCED VAGINITIS PLUS, TMA Pathology and Cytology Routine Vaginal discharge Ordered: 12/27/2024 [facility] Comment on above: Ordered: 12/27/2024 Immunizations Immunization Date Immunization Notes Care Provider Marino lopez 10-28-2022 influenza virus vaccine, unspecified formulation JANNETHLUBNA SMITH [facility] 04-15-2021 SARS-CoV-2 (COVID-19 ) mRNA-1273 vaccine JANNETH SMITH [facility] [place] 03-18-2021 SARS-CoV-2 (COVID-19 ) mRNA-1273 vaccine JANNETH SMITH [facility] [place] 03-21-2014 influenza virus vaccine, unspecified formulation Estella Guerrero MD Work Phone: [facility] Payers Date Payer Category Payer Medicaid [employer] [employer] [id number] 2017-Present [address] [place] [phone] [id number] 2017 Medicaid (Managed Care) [employer] [id number] 2017 Unknown [facility] [employer] [id number] 2017-Present [id number] 1993 Unknown [id number] 2.16.840.1.579808.3.579.2. 732 1993 Unknown [id number] 2.16.840.1.059112.3.579.2. 593 1993 Unknown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
[2025-05-20 09:40] VITALS: BP 112/71; PULSE 77
== END 2025-05-20 10:00 | disposition home or self-care (01) ==
LOC: US 08:52 → FBC 08:54
PROVIDERS: PCP Family Medicine
DX: O40.3XX0 Polyhydramnios, third trimester, not applicable or unspecified (principal); Z3A.37 37 weeks gestation of pregnancy
CPT/HCPCS: 76818

== ENCOUNTER 2025-05-22 04:53 | Inpatient (IN) | payer OTHER, SELFPAY ==
[2025-05-22] VITALS (79 sets, daily range): BP systolic 111–171; BP diastolic 53–93; PULSE 50–113; TEMP 36.8–37.2
--- OUTSIDE RECORDS SUMMARY | 2025-05-22 04:58 | XMS_ITS | CCD ---
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 Chief Name Role Phone Unavailable Primary Care Provider [...] Unavailable HOY ., DR SEWELL Admkaty Unavailable BETHESDA, DR NANDINI Stafford Consulting Unavailable HOY ., [...] Physician MD Melodie Ashton Primary Care Provider [phone] MD Yonis Miranda Attending Provider Melodie Ashton Primary Care Unavailable NilYonis menard Attending Unavailable Ruth, Yonis Mckenzie Admitting Unavailable DANTE, GRAHAM Attending Unavailable DANTE, GRAHAM Attending Unavailable MELANY, KELLE Attending Unavailable Melodie Ashton MD Primary Care Provider [phone] Melodie Ashton MD Primary Care Provider [phone] MELODIE ASHTON Primary Care Unavailable NIC ESTEVEZ [...] Unavailable Melodie Ashton MD Primary Care Provider [phone] Melodie Ashton MD Primary Care Provider [phone] MELANY, KELLE Attending Unavailable MELANY, KELLE [...] City-Other] Propensity to adverse reactions (disorder) 0 [facility] Repository (3 sources) Kerlix Super Sponge/Saline Med Drug allergy PAIEON Other (20 sources) Wound Dressings Drug Allergy 4 [facility] (1 source) No Known Medication Allergies; Translations: [No Known Medication Allergies] Propensity to adverse reactions (disorder) [facility] Repository Medications Current Medications Medication Drug Class(es) [...] completed., # 2 cap(s), Refills(s) 0, Pharmacy: [facility]/pharmacy #[id number], 180, cm, 01/19/24 9:37:00 EST, [...] Daily UTI prevention, 30 tab(s), Refill(s) 3, [facility]/pharmacy #[id number], 180, cm, 05/10/24 9:08:00 EDT, Height/Length Dosing, 150, kg, 05/10/24 9:08:00 EDT, Weight Dosing Start Date: 07/26/24 Status: Ordered Start: 01-19-2024 Bactrim 400 mg -80 mg Tab 1 tab(s), Oral, Daily UTI prevention, 30 tab(s), Refill(s) 3, [facility]/pharmacy #[id number], 180, cm, 01/19/24 9:37:00 EST, [...] mg by mouth Daily 12/05/2024 Discontinued levonorgestrel 0.468736 mg/hr intrauterine system (8 sources) Progestin, Progestin-containi [...] 09-20-2021 Chronic Other aftercare (1 source) Other half-way (current) drug therapy; Translations: [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] Onset: 3 Episodic [...] results Abnormal [facility] re Protein (U) [Mass/Vol] 20.4 mg/dL High NINF - 11.9 mg/dL [facility]H TOTAL PROTEIN 24 HOUR URINE 285.6 High NINF [facility] TOTAL VOLUME 24 HOUR URINE 1400 mL/24hr [facility] CLINISYNC [facility] Healthcar e ALL CBC WITH AUTO DIFFon BASOPHILS ABSOLUTE AUTO 0 [facility] Basophils/100 WBC (Bld) 0.1 % Low 0.2 - 2.0 % [facility] Eosinophils/100 WBC (Bld) 0.8 % Low 0.9 - 7.0 % [facility] Erythrocyte distribution width (RBC) [Ratio] 12.8 % 11.0 - 15.0 % [facility] Hematocrit (Bld) [Volume fraction] 35.2 % Low 36.0 - 48.0 % [facility] Hemoglobin (Bld) [Mass/Vol] 11.8 g/dL Low 12.0 - 16.0 g/dL [facility] IMMATURE GRANULOCYTES ABS AUTO 0.05 High [facility] Immature granulocytes/100 WBC (Bld) 0.5 % 0.0 - 0.5 % [facility] Interpretation and review of laboratory results Abnormal [facility] re LYMPHOCYTES ABSOLUTE AUTO 1.5 [facility] Lymphocytes/100 WBC (Bld) 14.5 % Low 20.5 - 60.0 % [facility] MCH (RBC) [Entitic mass] 29.3 pg 26.7 - 34.0 pg [facility] MCHC (RBC) [Mass/Vol] 33.5 g/dL 29.9 - 35.2 g/dL [facility] MCV (RBC) [Entitic vol] 87.3 fL 81.0 - 99.0 fL [facility] MONOCYTES ABSOLUTE AUTO 0.7 [facility] Monocytes/100 WBC (Bld) 6.9 % 1.7 - 12.0 % [facility] NEUTROPHILS ABSOLUTE AUTO 8 High [facility] Neutrophils/100 WBC (Bld) 77.2 % High 43.0 [...] US OB BPP W NON-STRESS on 05-17-2025 [place] [address] Ultrasound Report Signed Patient: ROSALIE RODRÍGUEZ V MR#: [id number] : 1995 Acct:[id number] Age/Sex: 30 / F ADM Date: Loc: [place] [address]: Graham Howell D.O. Ordering Physician: Graham Howell D.O. Date of Service: 05/17/25 Procedure(s): US OB BPP w non-stress Accession Number(s): [id number] cc: Graham Howell D.O.; Melodie Ashton M.D. [place] [address] Patient Name: ROSALIE RODRÍGUEZ MRN: [facility]:[id number] date: 1995 Sex: F Assigned Patient Location: [facility] Current Patient Location: [facility] Accession/Order Number: [id number] Exam Date: 05/17/2025 19:09 Report Date: 05/17/2025 19:13 At the request of: GRAHAM HOWELL DO Procedure: US OB BPP w non-stress Ultrasound biophysical profile INDICATION: GB COMPARISON: None FINDINGS/IMPRESSION: Single live intrauterine gestation with heart 132 bpm. BRISEYDA 23.28 cm Score 8/8 Impression dictated by: Weston Gonzalez M.D. 05/17/2025 7:13 PM Dictation Location: [place] [address] Electronically authenticated by: [id number] Y Date: 05/17/2025 19:13 Dictated By: Weston Gonzalez M.D. Signed By: 05/17/251914 DD/ 12 TD/TT: Paste Mixer Liquid: [facility] Radiology, Radiologist, - 05/17/2025 [place] [address] Ultrasound Report Signed Patient: ROSALIE RODRÍGUEZ V MR#: [id number] : 1995 Acct:[id number] Age/Sex: 30 / F ADM Date: Loc: [place] [address]- Attending Dr: Graham Howell D.O. Ordering Physician: Graham Howell D.O. Date of Service: 05/17/25 Procedure(s): US OB BPP w non-stress Accession Number(s): [id number] cc: Graham Howell D.O.; Melodie Ashton M.D. The [address] [address] Patient Name: ROSALIE RODRÍGUEZ MRN: [facility]:[id number] date: 1995 Sex: F Assigned Patient Location: [facility] Current Patient Location: [facility] Accession/Order Number: [id number] Exam Date: 05/17/2025 19:09 Report Date: 05/17/2025 19:13 At the request of: GRAHAM HOWELL DO Procedure: US OB BPP w non-stress Ultrasound biophysical profile INDICATION: GB COMPARISON: None FINDINGS/IMPRESSION: Single live intrauterine gestation with heart 132 bpm. BRISEYDA 23.28 cm Score 8/8 Impression dictated by: Weston Gonzalez M.D. 05/17/2025 7:13 PM Dictation Location: [place] [address] Electronically authenticated by: [id number] Y Date: 05/17/2025 19:13 Dictated By: Weston Gonzalez M.D. Signed By: 05/17/251914 DD/ 12 TD/TT: Paste Mixer Liquid: [facility] Radiology Study observation (narrative) [facility] US OB BPP W NON-STRESS Ordered By: Radiologist Radiology on 05-17-2025 [facility] [employer] Work Phone: US OB BPP W NON-STRESS on 05-15-2025 [place] [address] Ultrasound Report Signed Patient: ROSALIE RODRÍGUEZ V MR#: [id number] : 1995 Acct:[id number] Age/Sex: 30 / F ADM Date: 05/15/25 Loc: US Attending Dr: Graham Howell D.O. Ordering Physician: Graham Howell D.O. Date of Service: 05/15/25 Procedure(s): US OB BPP w non-stress Accession Number(s): [id number] cc: Graham Howell D.O.; Melodie Ashton M.D. [place] [address] Patient Name: ROSALIE RODRÍGUEZ MRN: [id number] date: 1995 Sex: F Assigned Patient Location: [facility] Current Patient Location: Accession/Order Number: [id number] Exam Date: 05/15/2025 18:34 Report Date: 05/15/2025 [...] Dominguez M.D. 05/15/2025 6:40 PM Dictation Location: [place] [address] Electronically authenticated by: [id number] Y Date: 05/15/2025 18:40 Dictated By: Neli Dominguez M.D. Signed By: 05/15/251842 DD/ 39 TD/TT: Paste Mixer Liquid: [facility] Radiology, Radiologist, - 05/15/2025 [place] [address] Ultrasound Report Signed Patient: ROSALIE RODRÍGUEZ V MR#: [id number] : 1995 Acct:[id number] Age/Sex: 30 / F ADM Date: 05/15/25 Loc: US Attending Dr: Graham Howell D.O. Ordering Physician: Graham Howell D.O. Date of Service: 05/15/25 Procedure(s): US OB BPP w non-stress Accession Number(s): [id number] cc: Graham Howell D.O.; Melodie Ashton M.D. The [address] [address] Patient Name: ROSALIE RODRÍGUEZ MRN: [facility]:[id number] date: 1995 Sex: F Assigned Patient Location: [facility] Current Patient Location: Accession/Order Number: [id number] Exam Date: 05/15/2025 18:34 Report Date: 05/15/2025 [...] Dominguez M.D. 05/15/2025 6:40 PM Dictation Location: [place] [address] Electronically authenticated by: [id number] Y Date: 05/15/2025 18:40 Dictated By: Neli Dominguez M.D. Signed By: 05/15/251842 DD/ 39 TD/TT: Paste Mixer Liquid: [facility] Radiology Study observation (narrative) [facility] US OB BPP W NON-STRESS Ordered By: Radiologist Radiology on 05-15-2025 [facility] [employer] Work Phone: Urinalysis macro (dipstick) panel (U)on 2025 Bilirubin, UA Positive Negative - 4(70) +++ mg/dL [facility] Comment on above: small Blood, UA Negative Negative - 50 Issac/mcL [facility] Clarity, UA Cloudy [facility] Color, UA Jolie [facility] Glucose, UA Negative Negative - 2000(110) ++++ mg/dL [facility] Interpretation and review of laboratory results Abnormal [facility] Ketones, UA Positive Negative - 160(16) ++++ mg/dL [facility] Comment on above: 15 Leukocytes, UA Positive Negative - 500+++ Christo/mcL [facility] Comment on above: small Nitrite, UA Negative Negative - Positive [facility] pH, UA 5.5 5 - 9 [facility] Protein, UA Positive Negative - 2000(20) ++++ mg/dL [facility] Comment on above: 30 Spec Grav, UA 1.03 1 - 1.03 [facility] Urobilinogen, UA 0.2 0.2 - 12 mg[facility]dL [facility] US OB BPP W NON-STRESS on 05-08-[address] [address] Ultrasound Report Signed Patient: ROSALIE RODRÍGUEZ V MR#: [id number] : 1995 Acct:[id number] Age/Sex: 29 / F ADM Date: 05/08/25 Loc: US Attending Dr: Graham Howell D.O. Ordering Physician: Graham Howell D.O. Date of Service: 05/08/25 Procedure(s): US OB BPP w non-stress Accession Number(s): [id number] cc: Graham Howell D.O.; Melodie Ashton M.D. The [address] [id number] Patient Name: ROSALIE RODRÍGUEZ MRN: [facility]:[id number] date: 1995 Sex: F Assigned Patient Location: [facility] Current Patient Location: Accession/Order Number: [id number] Exam Date: 05/08/2025 21:48 Report Date: 05/08/2025 [...] 05/08/2025 9:49 PM Dictation Location: [place] [address] Electronically authenticated by: [id number] Y Date: 05/08/2025 21:49 Dictated By: Daniel Graham D.O. Signed By: 05/08/252151 DD/ 48 TD/TT: Paste Mixer Liquid: [facility] Radiology, Radiologist, - 05/08/[address] [address] Ultrasound Report Signed Patient: ROSALIE RODRÍGUEZ V MR#: [id number] : 1995 Acct:[id number] Age/Sex: 29 / F ADM Date: 05/08/25 Loc: US Attending Dr: Graham Howell D.O. Ordering Physician: Graham Howell D.O. Date of Service: 05/08/25 Procedure(s): US OB BPP w non-stress Accession Number(s): [id number] cc: Graham Howell D.O.; Melodie Ashton M.D. [place] [address] Patient Name: ROSALIE RODRÍGUEZ MRN: [facility]:[id number] date: 1995 Sex: F Assigned Patient Location: [facility] Current Patient Location: Accession/Order Number: [id number] Exam Date: 05/08/2025 21:48 Report Date: 05/08/2025 [...] 05/08/2025 9:49 PM Dictation Location: [place] [address] Electronically authenticated by: [id number] Y Date: 05/08/2025 21:49 Dictated By: Daniel Graham D.O. Signed By: 05/08/252151 DD/ 48 TD/TT: Paste Mixer Liquid: [facility] Radiology Study observation (narrative) [facility] US OB BPP W NON-STRESS Ordered By: Radiologist Radiology on 05-08-2025 [facility] [employer] Work Phone: US OB FOLLOW UP [...] II, MD, PHD at 28-Apr-2025 08:26:54 AM [facility] Normal Not Available Comment on above: Order Comment: US OB SCAN FOR GROWTH Estimated Date of Delivery: 06/05/25 Gestational Age as of 04/12/2025: 32w2d Urinalysis macro (dipstick) panel (U)on 04-27-2025 Bilirubin, UA Positive Negative - 4(70) +++ mg/dL [facility] Comment on above: small Blood, UA Negative [...] UA Positive Negative - 1999(20) ++++ mg/dL [facility] Comment on above: 30mg/dL Spec Grav, UA 1.025 1 - 1.03 [facility] Urobilinogen, UA 0.2 0.2 - 12 mg/[facility] UA (CLEAN/CATCH) GIS APPLICATION DEVELOPER/LORENZO RO IF IND.on 04-25-2025 BILIRUBIN URINE Negative NEGATIVE [facility] thcare BLOOD URINE Negative NEGATIVE [facility] Healthca re Clarity (U) CLEAR CLEAR [facility] Health[facility] Color (U) LT. YELLOW YELLOW [facility] Healthcar e GLUCOSE URINE UA Negative NEGATIVE mg/dL [facility] Interpretation and review of laboratory results Abnormal [facility] Health[facility] re Ketones Ql (U) Negative NEGATIVE mg/dL [facility] Leukocyte esterase Test strip Ql (U) MODERATE Abnormal NEGATIVE [facility] Healthcar [facility] NITRITE URINE Negative NEGATIVE [facility] pH (U) 7.5 [pH] 5.0 - 9.0 [facility] e Protein (U) [Mass/Vol] 30 mg/dL Abnormal NEG/TRACE [facility] SPECIFIC GRAVITY URINE 1.020 1.005 - 1.025 [facility] URINE MICROSCOPIC INDICATED YES [facility] UROBILINOGEN URINE 1.0 EU/dL 0.2 - 1.0 EU/dL [facility] Healthcar e Urinalysis macro (dipstick) panel (U)on 04-12-2025 Bilirubin, UA Negative Negative - 4(70) +++ mg/dL [facility] Blood, UA Negative Negative - 50 Issac/mcL [facility] Clarity, UA Clear [facility] Healthca re Color, UA Yellow [facility] Health[facility] Glucose, UA Negative Negative - 1999(110) ++++ mg/dL [facility] Interpretation and review of laboratory results Abnormal [facility] Health[facility] re Ketones, UA Positive Negative - 160(16) ++++ mg/dL [facility] Comment on above: Trace Leukocytes, UA Trace Negative - 500+++ Christo/mcL [facility] Nitrite, UA Negative Negative - Positive [facility] pH, UA 6 5 - 9 [facility] Healthcar e Protein, UA Positive Negative - 1999(20) ++++ mg/dL [facility] Comment on above: 30mg/dL Spec Grav, UA 1.01 1 - 1.03 [facility] Urobilinogen, UA 1.0 0.2 - 12 mg/dL [facility] Urinalysis macro (dipstick) panel (U)on 03-29-2025 Bilirubin, UA Positive Negative - 4(70) +++ mg/dL [facility] Comment on above: small Blood, UA Negative Negative - 50 Issac/mcL [facility] Healthcare Clarity, UA Clear [facility] Color, UA Yellow [facility] Glucose, UA Negative Negative - 1999(110) ++++ mg/dL [facility] Interpretation and review of laboratory results Abnormal [facility] Ketones, UA Positive Negative - 160(16) ++++ mg/dL [facility] Comment on above: Trace Leukocytes, UA Trace Negative - 500+++ Christo/mcL [facility] Nitrite, UA Negative Negative - Positive [facility] pH, UA 6.5 5 - 9 [facility] Healthcar e Protein, UA Positive Negative - 1999(20) ++++ mg/dL [facility] Comment on above: 30mg/dL Spec Grav, UA 1.03 1 - 1.03 [facility] Urobilinogen, UA 0.2 0.2 - 12 mg/dL [facility] Urinalysis macro (dipstick) panel (U)on 03-15-2025 Bilirubin, UA Positive Negative - 4(70) +++ mg/dL [facility] Comment on above: small Blood, UA Negative Negative - 50 Issac/mcL [facility] Clarity, UA Clear [facility] Color, UA Yellow [facility] Healthcar e Glucose, UA Negative Negative - 1999(110) ++++ mg/dL [facility] Interpretation and review of laboratory results Abnormal [facility] Healthca re Ketones, UA Positive Negative - 160(16) ++++ mg/dL [facility] Comment on above: 40mg/dL Leukocytes, UA Trace Negative - 500+++ Christo/mcL [facility] Nitrite, UA Negative Negative - Positive [facility] pH, UA 5.5 5 - 9 [facility] Healthcar e Protein, UA Positive Negative - 1999(20) ++++ mg/dL [facility] Comment on above: 30mg/dL Spec Grav, UA 1.03 1 - 1.03 [facility] Urobilinogen, UA 0.2 0.2 - 12 mg/dL [facility] Healthcar e ALL CBC WITH AUTO DIFFon BASOPHILS ABSOLUTE AUTO 0 [facility] Basophils/100 WBC (Bld) 0.3 % 0.2 - 2.0 % [facility] Eosinophils/100 WBC (Bld) 0.7 % Low 0.9 - 7.0 % [facility] Erythrocyte distribution width (RBC) [Ratio] 12.6 % 11.0 - 15.0 % [facility] Hematocrit (Bld) [Volume fraction] 35.7 % Low 36.0 - 48.0 % [facility] Healthcar e Hemoglobin (Bld) [Mass/Vol] 12.1 g/dL 12.0 - 16.0 g/dL [facility] IMMATURE GRANULOCYTES ABS AUTO 0.06 High [facility] Immature granulocytes/100 WBC (Bld) 0.6 % High 0.0 - 0.5 % [facility] Interpretation and review of laboratory results Abnormal [facility] LYMPHOCYTES ABSOLUTE AUTO 1.2 [facility] Lymphocytes/100 WBC (Bld) 11.3 % Low 20.5 - 60.0 % [facility] MCH (RBC) [Entitic mass] 30.6 pg 26.7 - 34.0 pg [facility] MCHC (RBC) [Mass/Vol] 33.9 g/dL 29.9 - 35.2 g/dL [facility] MCV (RBC) [Entitic vol] 90.2 fL 81.0 - 99.0 fL [facility] MONOCYTES ABSOLUTE AUTO 0.6 [facility] Monocytes/100 WBC (Bld) 5.4 % 1.7 - 12.0 % [facility] NEUTROPHILS ABSOLUTE AUTO 8.5 High [facility] Neutrophils/100 WBC (Bld) 81.7 % High 43.0 - 75.0 % [facility] Platelet mean volume (Bld) [Entitic vol] 8.9 fL Low 9.5 - 13.5 fL [facility] TBH EO # 0.1 [facility] PLT 242 [facility] RBC 3.96 Low [facility] WBC 10.4 [facility] Healthcar e US OB 14+ WEEKS ANATOMY [...] II, MD, PHD at 24-Jan-2025 09:25:38 AM [facility] Normal Not Available Comment on above: Order Comment: US OB ANATOMY SINGLE W US OB CERVICAL LENGTH Estimated Date of Delivery: 06/05/25 Gestational Age as of 12/27/2024: 17w1d Urinalysis macro (dipstick) panel (U)on 01-04-2025 Bilirubin, UA Positive Negative - 4(70) +++ mg/dL [facility] Comment on above: small Blood, UA Negative Negative - 50 Issac/mcL [facility] Clarity, UA Clear [facility] re Color, UA Yellow [facility] Healthcar e Glucose, UA Negative Negative - 1999(110) ++++ mg/dL [facility] Interpretation and review of laboratory results Abnormal [facility] Healthks re Ketones, UA Positive Negative - 160(16) ++++ mg/dL [facility] Comment on above: trace Leukocytes, UA Positive Negative - 500+++ Christo/mcL [facility] Comment on above: small Nitrite, UA Negative Negative - Positive [facility] pH, UA 5.5 5 - 9 [facility] Protein, UA Positive Negative - 1999(20) ++++ mg/dL [facility] Comment on above: 30mg/dL Spec Grav, UA 1.03 1 - 1.03 [facility] Urobilinogen, UA 0.2 0.2 - 12 mg/dL [facility] [employer] IGP,APTIMA HPV,AGE GDLNon AGE GDLN ACOG TESTING Note . [facility] Comment on above: TESTS RESULT FLAG UN ITS REF RANGE LAB Clinician Provided Cytology Information Source.............Cervix Other.............. No. of containers..01 ThinPrep Vial Age Algo ACOG Soraida... 30 FLAG LEGEND: L-Low Normal,H-High Normal,LL-Alert Low,HH-Alert High <-Panic Low,>-Panic High,A-Abnormal,AA-Critical Abnormal Performed at: 01 =[address] [address] Haily Cook MD, HPV APTIMA Negative Negative [facility] Comment on above: This nucleic acid am plification test detects fourteen high- risk HPV types (16,18,31,33,35,39,45,51,52,56,58,59,66,68) without differentiation. Performed at: = - [address] [id number] Auto Transmission Mechanic: Haily Cook MD, Phone: [phone] Performed at: - [address] [id number] Auto Transmission Mechanic: Haily Cook MD, Phone: [phone] IGP, APTIMA HPV, RFX 16/18,45 Note . [facility] Comment on above: TESTS RESULT FLAG UN ITS REF RANGE LAB DIAGNOSIS: 02 NEGATIVE FOR INTRAEPITHELIAL LESION OR MALIGNANCY. Specimen adequacy: 02 Satisfactory for evaluation. No endocervical component is identified. Performed by: 02 Janneth Guerrero, Electrical And Electronic Assembler (ASCP) . 02 Note: Note 02 The [...] High,A-Abnormal,AA-Critical Abnormal Performed at: 02 [address] [facility] [address] [place] [address] Haily Cook MD, SPATULA-ALONE CERVIX CLINISY[facility] Urinalysis macro (dipstick) panel (U)on 12-27-2024 Bilirubin, UA Negative Negative - 4(70) +++ mg/dL [facility] Blood, UA Negative Negative - 50 Issac/mcL [facility] Clarity, UA Clear [facility] [place] re Color, UA Yellow [facility] Glucose, UA Negative Negative - 1999(110) ++++ mg/dL [facility] Interpretation and review of laboratory results Abnormal [facility] re Ketones, UA Negative Negative - 160(16) ++++ mg/dL [facility] Leukocytes, UA Positive Negative - 500+++ Christo/mcL [facility] Comment on above: small Nitrite, UA Negative Negative - Positive [facility] pH, UA 6 5 - 9 [facility] Protein, UA Trace Negative - 1999(20) ++++ mg/dL [facility] Spec Grav, UA 1.03 1 - 1.03 [facility] Urobilinogen, UA 0.2 0.2 - 12 mg/dL [facility] BOX TESTon 12-23-2024 BOX TEST SENT OUT [employer] [facility] [employer] [address] [facility] [address] 12/23/24 [employer] UNITY BOX CLINIS[facility]NC [facility] [...] time. Normal [facility] Urinalysis macro (dipstick) panel (U)on 12-05-2024 Bilirubin, UA Negative Negative - 4(70) +++ mg/dL [facility] Blood, UA Negative Negative - 50 Issac/mcL [facility] Clarity, UA Clear [facility] Healthca re Color, UA Yellow [facility] Health[facility] Glucose, UA Negative Negative - 2000(110) ++++ mg/dL [facility] Interpretation and review of laboratory results Abnormal [facility] Ketones, UA Negative Negative - 160(16) ++++ mg/dL [facility] Leukocytes, UA Positive Negative - 500+++ Christo/mcL [facility] Comment on above: small Nitrite, UA Negative Negative - Positive [facility] pH, UA 6.5 5 - 9 [facility] [employer] Protein, UA Trace Negative - 1999(20) ++++ mg/dL [facility] Spec Grav, UA 1.025 1 - 1.03 [facility] Urobilinogen, UA 0.2 0.2 - 12 mg/dL [facility] Basic Metabolic Panelon 11-23 Est, Glom Filt Rate - PINF [facility] Comment on above: These results [...] Interpretation and review of laboratory results Abnormal [facility] Urea nitrogen/Creatinine [Mass ratio] 12 mg/mg 9 - 20 [facility] Basic Metabolic Profon 12-02 Anion gap [Moles/Vol] 11 mmol/L Normal 9-16 [facility] Comment on above: Performed By: #### B MP, LIVP, MG, CDP, LIP #### [address] [place] [address] Auto Transmission Mechanic: Nandini Acevedo MD BUN/CRE Ratio 12 Normal 9-20 [facility] Comment on above: Performed By: #### B MP, LIVP, MG, CDP, LIP #### [address] [place], [place] [id number] Auto Transmission Mechanic: Nandini Acevedo MD Calcium [Mass/Vol] 9.3 mg/dL Normal 8.6-10.4 [facility] Comment on above: Performed By: #### B MP, LIVP, MG, CDP, LIP #### [address] [place] [address] Auto Transmission Mechanic: Nandini Acevedo MD Chloride [Moles/Vol] 102 mmol/L Normal 98-107 [facility] Comment on above: Performed By: #### B MP, LIVP, MG, CDP, LIP #### [address] [place] [address] Auto Transmission Mechanic: Nandini Acevedo MD CO2 [Moles/Vol] 24 mmol/L Normal 20-31 [facility] Comment on above: Performed By: #### B MP, LIVP, MG, CDP, LIP #### [address] [place] [address] Auto Transmission Mechanic: Nandini Acevedo MD Creatinine [Mass/Vol] 0.5 mg/dL Normal 0.50-0.90 [facility] Comment on above: Performed By: #### B MP, LIVP, MG, CDP, LIP #### [address] [place] [address] Auto Transmission Mechanic: Nandini Acevedo MD GFR/1.73 sq M.predicted among non-blacks MDRD (S/P/Bld) [Vol rate/Area] mL/min/{1.73_m2} Normal >60 [facility] Comment on above: Result Comment: These [...] B MP, LIVP, MG, CDP, LIP #### [address] [place] [address] Auto Transmission Mechanic: Nandini Acevedo MD Glucose [Mass/Vol] 88 mg/dL Normal 74-99 [facility] Comment on above: Performed By: #### B MP, LIVP, MG, CDP, LIP #### [address] [place] [address] Auto Transmission Mechanic: Nandini Acevedo MD Potassium [Moles/Vol] 3.6 mmol/L Low 3.7-5.3 [facility] Comment on above: Performed By: #### B MP, LIVP, MG, CDP, LIP #### [address] [place] [address] Auto Transmission Mechanic: Nandini Acevedo MD Sodium [Moles/Vol] 137 mmol/L Normal 136-145 [facility] Comment on above: Performed By: #### B MP, LIVP, MG, CDP, LIP #### [address] [place] [address] Auto Transmission Mechanic: Nandini Acevedo MD Urea nitrogen [Mass/Vol] 6 mg/dL Normal 6-20 [facility] Comment on above: Performed By: #### B MP, LIVP, MG, CDP, LIP #### [facility] [address] [place] [address] Auto Transmission Mechanic: Nandini Acevedo MD CBC with Auto Differentialon 12-02-2024 Basophils (Bld) [#/Vol] 0.04 10*3/uL [facility] Basophils/100 WBC (Bld) 0 % 0 - 2 % [facility] Eosinophils (Bld) [#/Vol] 0.06 10*3/uL [facility] Eosinophils/100 WBC (Bld) 0 % Low 1 - 4 % [facility] Erythrocyte distribution width (RBC) [Ratio] 12.0 % 11.8 - 14.4 % [facility] Hematocrit (Bld) [Volume fraction] 38.6 % 36.3 - 47.1 % [facility] Hemoglobin (Bld) [Mass/Vol] 13.3 g/dL 11.9 - 15.1 g/dL [facility] Immature granulocytes (Bld) [#/Vol] 0.05 10*3/uL [facility] Immature granulocytes/100 WBC (Bld) 0 % 0 [facility] Interpretation and review of laboratory results Abnormal [facility] Lymphocytes/100 WBC (Bld) 9 % Low 24 - 43 % [facility] Lymphocytes/100 WBC (Bld) 1.26 % [facility] MCH (RBC) [Entitic mass] 30.6 pg 25.2 - 33.5 pg [facility] MCHC (RBC) [Mass/Vol] 34.5 g/dL 28.4 - 34.8 g/dL [facility] MCV (RBC) [Entitic vol] 88.7 fL 82.6 - 102.9 fL [facility] Monocytes/100 WBC (Bld) 6 % 3 - 12 % [facility] Monocytes/100 WBC (Bld) 0.88 % [facility] Neutrophils/100 WBC (Bld) 85 % High 36 - 65 % [facility] Nucleated RBC/100 WBC (Bld) [Ratio] 0.0 % 0.0 per 100 WBC [facility] Platelet mean volume (Bld) [Entitic vol] 9.2 fL 8.1 - 13.5 fL [facility] Platelets (Bld) [#/Vol] 267 10*3/uL [facility] RBC (Bld) [#/Vol] 4.35 10*6/uL 3.95 - 5.1 1 m/uL [facility] Segmented neutrophils/100 WBC (Bld) 12.17 % High [facility] WBC other (Bld) [#/Vol] 14.5 High [facility] CBC with Diffon 12-02-2024 Abs. Basophil 0.04 k/uL Normal 0.00-0.20 [facility] Comment on above: Performed By: #### B MP, LIVP, MG, CDP, LIP #### [address] [place] [address] Auto Transmission Mechanic: Nandini Acevedo MD Abs.Imm.Granulocyte 0.05 k/uL Normal 0.00-0.30 [facility] Comment on above: Performed By: #### B MP, LIVP, MG, CDP, LIP #### [address] [place] [address] Auto Transmission Mechanic: Nandini Acevedo MD Abs.Neutrophil (Seg) 12.17 k/uL High 1.50-8.10 [facility] Comment on above: Performed By: #### B MP, LIVP, MG, CDP, LIP #### [address] [place], [facility] Auto Transmission Mechanic: Nandini Acevedo MD Basophils/100 WBC (Bld) 0 % Normal 0-2 [facility] Comment on above: Performed By: #### B MP, LIVP, MG, CDP, LIP #### [address] [place] [address] Auto Transmission Mechanic: Nandini Acevedo MD Eosinophils (Bld) [#/Vol] 0.06 10*3/uL Normal 0.00-0.44 [facility] Comment on above: Performed By: #### B MP, LIVP, MG, CDP, LIP #### [address] [place], [facility] Auto Transmission Mechanic: Nandini Acevedo MD Eosinophils/100 WBC (Bld) 0 % Low 1-4 [facility] Comment on above: Performed By: #### B MP, LIVP, MG, CDP, LIP #### [address] [place], [facility] Auto Transmission Mechanic: Nnadini Acevedo MD Erythrocyte distribution width (RBC) [Ratio] 12.0 % Normal 11.8-14.4 [facility] Comment on above: Performed By: #### B MP, LIVP, MG, CDP, LIP #### [address] [place] [id number] Auto Transmission Mechanic: Nandini Acevedo MD Hematocrit (Bld) [Volume fraction] 38.6 % Normal 36.3-47.1 [facility] Comment on above: Performed By: #### B MP, LIVP, MG, CDP, LIP #### [address] [place], [facility] Auto Transmission Mechanic: Nandini Acevedo MD Hemoglobin (Bld) [Mass/Vol] 13.3 g/dL Normal 11.9-15.1 [facility] Comment on above: Performed By: #### B MP, LIVP, MG, CDP, LIP #### [address] [place], [facility] Auto Transmission Mechanic: Nandini Acevedo MD Immature granulocytes/100 WBC (Bld) 0 % Normal 0 [facility] Comment on above: Performed By: #### B MP, LIVP, MG, CDP, LIP #### [address] [place], [place] [id number] Auto Transmission Mechanic: Nandini Acevedo MD Lymphocytes (Bld) [#/Vol] 1.26 10*3/uL Normal 1.10-3.70 [facility] Comment on above: Performed By: #### B MP, LIVP, MG, CDP, LIP #### [address] [place] [address] Auto Transmission Mechanic: Nandini Acevedo MD Lymphocytes/100 WBC (Bld) 9 % Low 24-43 [facility] Comment on above: Performed By: #### B MP, LIVP, MG, CDP, LIP #### [address] [place], [place] [id number] Auto Transmission Mechanic: Nandini Acevedo MD MCH (RBC) [Entitic mass] 30.6 pg Normal 25.2-33.5 [facility] Comment on above: Performed By: #### B MP, LIVP, MG, CDP, LIP #### [address] [place], [facility] Auto Transmission Mechanic: Nandini Acevedo MD MCHC (RBC) [Mass/Vol] 34.5 g/dL Normal 28.4-34.8 [facility] Comment on above: Performed By: #### B MP, LIVP, MG, CDP, LIP #### [address] [place], [facility]83 Auto Transmission Mechanic: Nandini Acevedo MD MCV (RBC) [Entitic vol] 88.7 fL Normal 82.6-102.9 [facility] Comment on above: Performed By: #### B MP, LIVP, MG, CDP, LIP #### [address] [place], [place] [id number] Auto Transmission Mechanic: Nandini Acevedo MD Monocytes (Bld) [#/Vol] 0.88 10*3/uL Normal 0.10-1.20 [facility] Comment on above: Performed By: #### B MP, LIVP, MG, CDP, LIP #### [address] [place], [facility]83 Auto Transmission Mechanic: Nandini Acevedo MD Monocytes/100 WBC (Bld) 6 % Normal 3-12 [facility] Comment on above: Performed By: #### B MP, LIVP, MG, CDP, LIP #### [facility] [address] [place] [address] Auto Transmission Mechanic: Nandini Acevedo MD Neutrophil (Seg) 85 % High 36-65 [facility] Comment on above: Performed By: #### B MP, LIVP, MG, CDP, LIP #### [facility] [address] [place] [address] [place], [place] [id number] Auto Transmission Mechanic: Nandini Acevedo MD NRBC Automated 0.0 per 100 WBC Normal 0.0 [facility] Comment on above: Performed By: #### B MP, LIVP, MG, CDP, LIP #### [address] [place], [place] [phone] Auto Transmission Mechanic: Nandini Acevedo MD Platelet mean volume (Bld) [Entitic vol] 9.2 fL Normal 8.1-13.5 [facility] Comment on above: Performed By: #### B MP, LIVP, MG, CDP, LIP #### [address] [place], [place] [phone] Auto Transmission Mechanic: Nandini Acevedo MD Platelets (Bld) [#/Vol] 267 10*3/uL Normal 138-453 [facility] Comment on above: Performed By: #### B MP, LIVP, MG, CDP, LIP #### [address] [place], [place] [id number] Auto Transmission Mechanic: Nandini Acevedo MD RBC (Bld) [#/Vol] 4.35 10*6/uL Normal 3.95-5.11 [facility] Comment on above: Performed By: #### B MP, LIVP, MG, CDP, LIP #### [address] [place], [place] 388[address]83 Auto Transmission Mechanic: Nandini Acevedo MD WBC (Bld) [#/Vol] 14.5 10*3/uL High 3.5-11.3 [facility] Comment on above: Performed By: #### B MP, LIVP, MG, CDP, LIP #### [address] [place], [place] 717[address]83 Auto Transmission Mechanic: Nandini Acevedo MD Hepatic Function Panelon Albumin/Globulin [Mass ratio] 1.4 {ratio} 1.0 - 2.5 [facility] ALP [Catalytic activity/Vol] 61 U/L 35 - 104 U/L [facility] Bilirubin.direct [Mass/Vol] mg/dL 0.00 - 0.30 mg/dL [facility] Bilirubin.indirect [Mass/Vol] Can not be calculated 0.0 - 1.0 mg/dL [facility] Lipaseon 12-02-2024 Lipase [Catalytic activity/Vol] 34 U/L Normal 13-60 [facility] Comment on above: Performed By: #### B MP, LIVP, MG, CDP, LIP #### [address] [place], [place] [id number] Auto Transmission Mechanic: Nandini Acevedo MD Liver Profileon 12-02-2024 Albumin [Mass/Vol] 3.9 g/dL Normal 3.5-5.2 [facility] Comment on above: Performed By: #### B MP, LIVP, MG, CDP, LIP #### [address] [place], [place] [address]83 Auto Transmission Mechanic: Nandini Acevedo MD Albumin/Glob Ratio 1.4 Normal 1.0-2.5 [facility] Comment on above: Performed By: #### B MP, LIVP, MG, CDP, LIP #### [address] [place], [place] 0396283 Auto Transmission Mechanic: Nandini Acevedo MD Alkaline Phos 61 U/L Normal 35-104 [facility] Comment on above: Performed By: #### B MP, LIVP, MG, CDP, LIP #### [address] [place] [address] Auto Transmission Mechanic: Nandini Acevedo MD ALT [Catalytic activity/Vol] 14 U/L Normal 10-35 [facility] Comment on above: Performed By: #### B MP, LIVP, MG, CDP, LIP #### [address] [place], [place] 1086383 Auto Transmission Mechanic: Nandini Acevedo MD AST [Catalytic activity/Vol] 14 U/L Normal 10-35 [facility] Comment on above: Performed By: #### B MP, LIVP, MG, CDP, LIP #### [address] [place] [address] Auto Transmission Mechanic: Nandini Acevedo MD Bilirubin [Mass/Vol] mg/dL Normal 0.00-1.20 [facility] Comment on above: Performed By: #### B MP, LIVP, MG, CDP, LIP #### [address] [place] [address] Auto Transmission Mechanic: Nandini Acevedo MD Bilirubin, Indirect Can not be calculated Normal 0.0-1 .0 [facility] Comment on above: Performed By: #### B MP, LIVP, MG, CDP, LIP #### [address] [place], [place] [id number] Auto Transmission Mechanic: Nandini Acevedo MD Bilirubin.indirect [Mass/Vol] mg/dL Normal 0.00-0.30 [facility] Comment on above: Performed By: #### B MP, LIVP, MG, CDP, LIP #### [address] [place] [address] Auto Transmission Mechanic: Nandini Acevedo MD Protein [Mass/Vol] 6.7 g/dL Normal 6.6-8.7 [facility] Comment on above: Performed By: #### B MP, LIVP, MG, CDP, LIP #### [facility] [address] [place] [address] Auto Transmission Mechanic: Nandini Acevedo MD Magnesiumon 12-02-2024 Magnesium [Mass/Vol] 1.7 mg/dL Normal 1.6-2.6 [facility] Comment on above: Performed By: #### B MP, LIVP, MG, CDP, LIP #### [facility] [address] [place] [address] Auto Transmission Mechanic: Nandini Acevedo MD Microscopic Urinalysison Amorphous sediment LM Ql (Urine sed) 2+ Abnormal None [facility] Epithelial cells LM.HPF (Urine sed) [#/Area] 0 TO 2 [facility] Interpretation and review of laboratory results Abnormal [facility] RBC LM.HPF (Urine sed) [#/Area] 0 TO 2 [facility] WBC LM.HPF (Urine sed) [#/Area] 2 TO 5 [facility] No Panel Informationon 12-02 [facility] US OB LESS THAN 14 WEEKS SIN [...] seen given later gestation Embryo(<11wk) /Fetus(>=11wk): Single Glade Rump Length: 7.9 cm Rate of Cardiac [...] Keyur Benavides MD 12/02/24 Final result Normal [facility] Intrauterine with embryonic/ cardiac activity. Estimated gestational age by current ultrasound is 14 weeks 0 days. [facility] EXAMINATION: FIRST TRIMESTER OBSTETRIC ULTRASOUND 12/02/2024 [...] seen given later gestation Embryo(<11wk) /Fetus(>=11wk): Single Glade Rump Length: 7.9 cm Rate of Cardiac Activity 160 Right ovary: 3.2 x 2.2 x 2.3 cm Left ovary: Surgically absent Free fluid: Measurements: Estimated gestational age by current ultrasound: 14 weeks 0 days Estimated gestational age by LMP/prior ultrasound: 13 weeks 4 days Estimated Due Date: 06/02/2025 by today's ultrasound [facility] Keyur Benavides MD - 12/02/2024 EXAMINATION: [...] seen given later gestation Embryo(<11wk) /Fetus(>=11wk): Single Glade Rump Length: 7.9 cm Rate of Cardiac [...] current ultrasound is 14 weeks 0 days. [facility] Radiology Study observation (narrative) [facility] US OB LESS THAN 14 WEEKS SIN GLE OR FIRST GESTATION W DOPPLEROrdered By: Keyur Benavides on 12-02-2024 [facility] Work Phone: Urinalysison 12-02-2024 Bilirubin Ql (U) Negative NEGATIVE [facility] Clarity (U) Clear Clear [facility] Color (U) Yellow Yellow [facility] Glucose Test strip (U) [Mass/Vol] Negative NEGATIVE mg/dL [facility] Hemoglobin Auto test strip Ql (U) Negative NEGATIVE [facility] Interpretation and review of laboratory results Abnormal [facility] Ketones (U) [Mass/Vol] Negative NEGATIVE mg/dL [facility] Leukocyte esterase Test strip Ql (U) MODERATE Abnormal NEGATIVE [facility] Nitrite Ql (U) Negative NEGATIVE [facility] pH (U) 7.5 [pH] 5.0 - 9.0 [facility] Protein (U) [Mass/Vol] Negative NEGATIVE mg/dL [facility] Specific gravity (U) [Rel density] 1.025 High 1.010 - 1.020 [facility] Urobilinogen Qn (U) Normal 0.0 - 1. 0 EU/dL [facility] Urinalysis, Routineon 2024 Bilirubin, SemiQt,Ur Negative Normal NEG [facility] Comment on above: Performed By: #### U KELLI Bazzi #### [facility] [address] [place] [address] Auto Transmission Mechanic: Nandini Acevedo MD Blood, Urine Negative Normal NEG [facility] Comment on above: Performed By: #### U KELLI Bazzi #### [facility] [address] [place], [place] [phone] Auto Transmission Mechanic: Nandini Acevedo MD Clarity (U) Clear Normal CLEAR [facility] Comment on above: Performed By: #### U A, UMICAO #### [facility] [address] [place] [address] [place], [place] 865[address]83 Auto Transmission Mechanic: Nandini Acevedo MD Color (U) Yellow Normal YEL [facility] Comment on above: Performed By: #### U A, UMICAO #### [address] [place], [place] [phone] Auto Transmission Mechanic: Nandini Acevedo MD Glucose Ql (U) Negative Normal NEG [facility] Comment on above: Performed By: #### U A, UMICAO #### [facility] [address] [place] [address] [place], [place] [phone] Auto Transmission Mechanic: Nandini Acevedo MD Ketones Ql (U) Negative Normal NEG [facility] Comment on above: Performed By: #### U A, UMICAO #### [address] [place], [place] [phone] Auto Transmission Mechanic: Nandini Acevedo MD Leukocyte esterase Test strip Ql (U) MODERATE Abnormal NEG [facility] Comment on above: Performed By: #### U A, UMICAO #### [facility] [address] [place] [address] [place], [place] [phone] Auto Transmission Mechanic: Nandini Acevedo MD Nitrite,Ur Negative Normal NEG [facility] Comment on above: Performed By: #### U A, UMICAO #### [address] [place], [place] [address]83 Auto Transmission Mechanic: Nandini Acevedo MD PH,Ur 7.5 Normal 5.0-9.0 [facility] Comment on above: Performed By: #### U A, UMICAO #### [facility] [address] [place], [place] [phone] Auto Transmission Mechanic: Nandini Acevedo MD Protein Ql (U) Negative Normal NEG [facility] Comment on above: Performed By: #### U A, UMICAO #### [facility] [address] [place], [place] 0128183 Auto Transmission Mechanic: Nandini Acevedo MD Spec. [place],Ur 1.025 High 1.010-1.020 [facility] Comment on above: Performed By: #### U A, UMICAO #### [address] [place], [place] [phone] Auto Transmission Mechanic: Nandini Acevedo MD Urobilinogen,Ur Normal Normal 0.0-1.0 [facility] Comment on above: Performed By: #### U A, UMICAO #### [facility] [address] [place] [address] [place] [address] Auto Transmission Mechanic: Nandini Acevedo MD Urinalysis,Microon 5 Amorphous sediment LM Ql (Urine sed) 2+ Abnormal NONE [facility] Comment on above: Performed By: #### U A, UMICAO #### [address] [place] [address] Auto Transmission Mechanic: Nandini Acevedo MD Epithelial cells LM Ql (Urine sed) 0 TO 2 Normal 0-25 [facility] Comment on above: Performed By: #### U A, UMICAO #### [facility] [address] [place] [address] Auto Transmission Mechanic: Nandini Acevedo MD Urine RBC's 0 TO 2 Normal 0-2 [facility] Comment on above: Performed By: #### U A, UMICAO #### [facility] [address] [place] [address] [place] [address] Auto Transmission Mechanic: Nandini Acevedo MD Urine WBC's 2 TO 5 Normal 0-5 [facility] Comment on above: Performed By: #### U A, UMICAO #### [facility] [address] [place] [address] Auto Transmission Mechanic: Nandini Acevedo MD HCG ( test) Ql (U)o n 11-03-2024 Interpretation and review of laboratory results Abnormal [facility] re Preg Test, Ur Positive Negative [facility] Urinal[facility] macro (dipstick) panel (U)on 11-03-2024 Bilirubin, UA Negative Negative - 4(70) +++ mg/dL [facility] Blood, UA Negative Negative - 50 Issac/mcL [facility] Clarity, UA Clear [facility] re Color, UA Yellow [facility] Glucose, UA Negative Negative - 1999(110) ++++ mg/dL [facility] Interpretation and review of laboratory results Normal [facility] Ketones, UA Negative Negative - 160(16) ++++ mg/dL [facility] Leukocytes, UA Negative Negative - 500+++ Christo/mcL [facility] Nitrite, UA Negative Negative - Positive [facility] pH, UA 5 5 - 9 [facility] e Protein, UA Negative Negative - 1999(20) ++++ mg/dL [facility] Spec Grav, UA 1.03 1 - 1.03 [facility] Urobilinogen, UA 1.0 0.2 - 12 mg/dL [facility] ALL CBC WITH AUTO DIFFon BASOPHILS ABSOLUTE AUTO 0 [facility] Basophils/100 WBC (Bld) 0.5 % 0.2 - 2.0 % [facility] Eosinophils/100 WBC (Bld) 1.9 % 0.9 - 7.0 % [facility] Erythrocyte distribution width (RBC) [Ratio] 12.1 % 11.0 - 15.0 % [facility] Hematocrit (Bld) [Volume fraction] 40.1 % 36.0 - 48.0 % [facility] Hemoglobin (Bld) [Mass/Vol] 13.5 g/dL 12.0 - 16.0 g/dL [facility] IMMATURE GRANULOCYTES ABS AUTO 0.03 [facility] Immature granulocytes/100 WBC (Bld) 0.4 % 0.0 - 0.5 % [facility] Interpretation and review of laboratory results Abnormal [facility] LYMPHOCYTES ABSOLUTE AUTO 1.7 [facility] Lymphocytes/100 WBC (Bld) 23.9 % 20.5 - 60.0 % [facility] MCH (RBC) [Entitic mass] 30.3 pg 26.7 - 34.0 pg [facility] MCHC (RBC) [Mass/Vol] 33.7 g/dL 29.9 - 35.2 g/dL [facility] MCV (RBC) [Entitic vol] 90.1 fL 81.0 - 99.0 fL [facility] MONOCYTES ABSOLUTE AUTO 0.5 [facility] Monocytes/100 WBC (Bld) 7.4 % 1.7 - 12.0 % [facility] NEUTROPHILS ABSOLUTE AUTO 4.8 [facility] Neutrophils/100 WBC (Bld) 65.9 % 43.0 - 75.0 % [facility] Platelet mean volume (Bld) [Entitic vol] 8.7 fL Low 9.5 - 13.5 fL [facility] TBH EO # 0.1 [facility] TBH PLT 299 [facility] RBC 4.45 [facility] WBC 7.3 [facility] CLINISYNC [facility] [place] 05-11-2024 Screens [id number]# 1.00TIFF Normal [facility] Ambulatory Visit Summaryon 0 2024 Ambulatory Visit [...] PM EDT With: Yonis MIRANDA MD Where: [facility] General Surgery [place] Normal [facility] Patient Educationon 05-10-20 Patient Education Caregiving Antibiotic [...] Follow these instructions at home: ? Take chxo-gjr-drxmlen and prescription medicines as told by your [...] get worse. (more content not included)... Normal [facility] Urology Office/Clinic Noteon 2024 Urology Office/Clinic Note [...] back normal. Is considering f/u with a heel scourer. Also had a difficult PO recovery and had a CT scan done in the ER which indicated her Mirena is not in the correct spot. States she plans to f/u with her lead handler. 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 [address] [phone] Additional Instructions: 6 mos (no labs) Patient [...] virus vaccine, (more content not included)... Normal [facility] Comment on above: Result Comment: Elec tronically Signed By: JANNETH SMITH PA-C\.br\Date and Time Signed: 05/10/24 09:55 EDT\.br\Electronically Co-Signed By: Ondina Parra\Shilpibr\Date and Time Co-Signed: 05/10/24 09:51 EDT Outside Colonoscopyon 2023 Outside Colonoscopy [id number]#1. 00TIFF [facility] Lab Reportson 04-28-2024 Lab Reports [id number]#1 .00TIFF [facility] Consent for Procedure/Surger yon 03-09-2024 Consent for Procedure/Surgery [id number]#1 .00TIFF [facility] Ambulatory Visit Summaryon 0 03-08-2024 Ambulatory [...] JANNETH SMITH PA-C Where: [facility] Physician Referralon Physician Referral [id number]#1 .00TIFF [facility] Physician Referralon 024 Physician Referral [id number]#1 .00TIFF Normal [facility] Consent for Procedure/Surger yon 02-09-2024 Consent for Procedure/Surgery [id number]# 1.00TIFF Normal [facility] Consent for Treatmenton 03- Consent for Treatment [id number]#1 .00TIFF [facility] IntraOperative Documentson 0 02-09-2024 IntraOperative Documents [id number]# 1.00TIFF [facility] Main OR Intraoperative Recor don 02-09-2024 Main OR Intraoperative Record IntraOp Document Type FTURO Summary Primary Physician: Dieter REMY MD Finalized Date/Time: 02/09/24 08:32:09 Pt. Name: ROSALIE RODRÍGUEZ/Sex: 1995 Female Med Rec #: [id number] Physician: Dieter REMY MD Financial #: [id number] Pt. Type: O Room/Bed: / Admit/Disch: 02/09/24 [...] Bianca Quesada Role Performed Surgeon - Primary Poultryman - Primary Scrub - Primary Time In [...] 08:32 Normal [facility] Main OR Preoperative Recordo n 02-09-2024 Main OR Preoperative Record Holding Area Document Type FTURO Summary Primary Physician: Dieter REMY MD Finalized Date/Time: 02/09/24 08:08:52 Pt. Name: ROSALIE RODRÍGUEZ/Sex: 1995 Female Med Rec #: [id number] Physician: Dieter REMY MD Financial #: [id number] Pt. Type: O Room/Bed: / Admit/Disch: 02/09/24 [...] 08:08 Normal [facility] Operative Reporton Operative Report Patient: ASHLEE RODRÍGUEZ [...] infections.. Normal [facility] Comment on above: Result Comment: Elec tronically Signed By: REMY MD, Dieter R\.br\Date and Time Signed: 02/09/24 08:36 EDT Outpatient Surgery Discharge Instructionon 02-09-2024 Outpatient Surgery Discharge Instruction [id number]# 1.00TIFF Normal [facility] RAD - MISCon 01-29-2024 RAD - MISC [id number]#1 .00TIFF Normal [facility] C Urineon 01-21-2024 Bacteria identified Cx Nom [...] Locations R1: This test was performed at: [facility], [address] [place] [address], [facility]- , , [facility] Comment on above: Performed By: #### 2 [id number] ####[facility] [address] [place] [address] RAD - Ultrasound Reporton RAD - Ultrasound Report [id number]# 1.00TIFF [facility] Screenson 01-21-2024 Screens [id number]#1 .00TIFF [facility] Ambulatory Visit Summaryon 0 01-19-2024 Ambulatory [...] JANNETH SMITH PA-C, URL When: Where: [address] [place] [address] Medications What How Much When Instructions New sulfamethoxazole-trim ethoprim (Bactrim 400 mg-80 mg Tab) 1 Tablets By Mouth Every day as needed for UTI prevention Refills: 3 Pickup at [facility]/pharmacy #[id number] Unchanged guanfacine (guanfacine 3 mg [...] physician if questions or concerns Pharmacy Information [facility]/pharmacy #[id number]: [address], [place] [phone] [phone] Allergies No Known Allergies No Known Medication [...] urinati (more content not included)... Normal [facility] Patient Educationon 01-19-20 24 Patient Education [...] this condition includes: ? Antibiotic medicine. ? Wmpm-dyb-onoflse medicines to treat discomfort. ? Drinking enough [...] these instructions at home: Medicines ? Take iyga-tfy-xjntefm and prescription medicines only as told by [...] included)... Normal [facility] BNPon 04-17-2023 Natriuretic peptide B (Bld) [Mass/Vol] 246.0 pg/mL Normal <=450.0 [facility] Comment on above: Performed By: #### I NSULIN #### [facility] [address] [place] [address] Dr. Saray Souza CARDIAC NELI ADMITon 023 CK [Catalytic activity/Vol] 47 U/L Normal 26-192 [facility] Comment on above: Performed By: #### I NSULIN #### [facility] [address] [place] [address] Dr. Saray Souza CK.MB [Mass/Vol] 1.02 ng/mL Normal <=3.60 [facility] Comment on above: Performed By: #### I NSULIN #### [facility] [address] [place] [address] Dr. Saray Souza HSTROP 4.5 pg/mL Normal 4.0-51.3 [facility] Comment on above: Result Comment: CUT- OFF POINTS HAVE BEEN ESTABLISHED BASED ON THE FOURTH UNIVERSAL DEFINITIONS OF MYOCARDIAL INFARCTION. THE UPPER REFERENCE LIMIT (URL) OF TROPONIN, DEFINED THE 99TH PERCENTILE OF cTnI DISTRIBUTION IN A REFERENCE POPULATION, HAS BEEN CONFIRMED THE DECISION THRESHOLD FOR AL DIAGNOSIS. Performed By: #### I NSULIN #### [facility] [address] [place] [address] Dr. Saray Souza FRANKLIN 36 ng/mL Normal 9-82 [facility] Comment on above: Performed By: #### I NSULIN #### [facility] [address] [place] [address] Dr. Saray Souza CBC W MANUAL DIFFon 04-17-20 23 ATYPICAL LYMPH # Normal [facility] Comment on above: Performed By: #### C BCMAN #### [facility] [address] [place] [address] Dr. Saray Souza ATYPICAL LYMPH % Normal [facility] Comment on above: Performed By: #### C BCMAN #### [facility] [address] [place] [address] Dr. Saray Souza BAND # 0.3 103/ul Normal 0.0-0.3 [facility] Comment on above: Performed By: #### C BCMAN #### [facility] [address] [place] [address] Dr. Saray Souza BAND % 1 % Normal 0-5 [facility] Comment on above: Performed By: #### C BCMAN #### [facility] [address] [place] [address] Dr. Saray Souza BASOM # 0.00 103/ul Normal 0.00-0.10 [facility] Comment on above: Performed By: #### C BCMAN #### [facility] [address] [place] [address] Dr. Saray Souza BASOM % 0.0 % Critically low 0.2-2.0 [facility] Comment on above: Performed By: #### C BCMAN #### [facility] [address] [place] [address] Dr. Saray Souza BLAST # Normal [facility] Comment on above: Performed By: #### C BCMAN #### [facility] [address] [place] [address] Dr. Saray Souza BLAST % Normal [facility] Comment on above: Performed By: #### C BCMAN #### [facility] [address] [place] [address] Dr. Saray Souza CORRECTED WBC Normal 4.0-11.0 [facility] Comment on above: Performed By: #### C BCMAN #### [facility] [address] [place] [address] Dr. Saray Souza EOS # 0.00 103/ul Normal 0.00-0.70 [facility] Comment on above: Performed By: #### C BCMAN #### [facility] [address] [place] [address] Dr. Saray Souza EOS% 0.0 % Critically low 0.9-7.0 [facility] Comment on above: Performed By: #### C EDGARDO #### [facility] [address] [place] [address] Dr. Saray Souza HCT 43.6 % Normal 36.0-48.0 [facility] Comment on above: Performed By: #### C EDGARDO #### [facility] [address] [address] [address] Saray Souza HGB 14.7 g/dl Normal 12.0-16.0 [facility] Comment on above: Performed By: #### C EDGARDO #### [facility] [address] [place] [address] Dr. Saray Souza LYMPHM # 1.55 103/ul Normal 1.20-3.80 [facility] Comment on above: Performed By: #### C EDGARDO #### [facility] [address] [place] [address] Dr. Saray Souza LYMPHM% 6.0 % Critically low 20.5-60.0 [facility] Comment on above: Performed By: #### C EDGARDO #### [facility] [address] [place] [address] Dr. Saray Souza MCH 30.3 pg Normal 26.7-34.0 [facility] Comment on above: Performed By: #### C EDGARDO #### [facility] [address] [place] [address] Dr. Saray Souza MCHC 33.7 g/dl Normal 29.9-35.2 [facility] Comment on above: Performed By: #### C EDGARDO #### [facility] [address] [place] [address] Dr. Saray Souza MCV 89.9 fL Normal 81.0-99.0 [facility] Comment on above: Performed By: #### C EDGARDO #### [facility] [address] [place] [address] Dr. Saray Souza METAMYELOCYTE # Normal [facility] Comment on above: Performed By: #### C EDGARDO #### [facility] [address] [address] [address] Saray Souza METAMYELOCYTE % Normal [facility] Comment on above: Performed By: #### C EDGARDO #### [facility] [address] [address] [address] Saray Souza MONOM# 2.06 103/ul Critically high 0.30-0.80 [facility] Comment on above: Performed By: #### C EDGARDO #### [facility] [address] [address] [address] Saray Souza MONOM% 8.0 % Normal 1.7-12.0 [facility] Comment on above: Performed By: #### C EDGARDO #### [facility] [address] [place] [address] Dr. Saray Souza MPV 8.8 fL Critically low 9.5-13.5 [facility] Comment on above: Performed By: #### C EDGARDO #### [facility] [address] [place] [address] Dr. Saray Souza MYELOCYTE # Normal [facility] Comment on above: Performed By: #### C EDGARDO #### [facility] [address] [place] [address] Dr. Saray Souza MYELOCYTE % Normal [facility] Comment on above: Performed By: #### C EDGARDO #### [facility] [address] [place] [address] Dr. Saray Souza NRBC Normal [facility] Comment on above: Performed By: #### C EDGARDO #### [facility] [address] [place] [address] Dr. Saray Souza PLT 397 103/ul Normal 150-450 [facility] Comment on above: Performed By: #### C EDGARDO #### [facility] [address] [place] [address] Dr. Saray Souza RBC 4.85 106/ul Normal 4.20-5.40 [facility] Comment on above: Performed By: #### C EDGARDO #### [facility] [address] [place] [address] Dr. Saray Souza RDW 12.0 % Normal 11.0-15.0 [facility] Comment on above: Performed By: #### C BCMAN #### [facility] [address] [place] [address] Dr. Saray Souza SEG # 21.93 103/ul Critically high 1.40-6.50 [facility] Comment on above: Performed By: #### C BCMAN #### [facility] [address] [place] [address] Dr. Saray Souza SEG % 85.0 % Critically high 43.0-75.0 [facility] Comment on above: Performed By: #### C BCMAN #### [facility] [address] [place] [address] Dr. Saray Souza WBC 25.8 103/ul Critically high 4.0-11.0 [facility] Comment on above: Performed By: #### C DAVIDMAN #### [facility] [address] [place] [address] Dr. Saray Souza CULTURE URINEon 04-17-2023 CULTURE URINE Culture Observations : LORENZO TO FOLLOW. Isolate 1 Enterococcus faecalis 20,000 cfu/mL of Normal [facility] Comment on above: Performed By: #### C BC #### [facility] [address] [place] [address] Dr. Saray Souza ER URINE PROFILEon 3 Bilirubin Ql (U) Negative Normal NEGATIVE [facility] Comment on above: Performed By: #### C BC #### [facility] [address] [place] [address] Dr. Saray Souza Clarity (U) CLEAR Normal CLEAR [facility] Comment on above: Performed By: #### C BC #### [facility] [address] [place] [address] Dr. Saray Souza Color (U) LT. YELLOW Normal YELLOW [facility] Comment on above: Performed By: #### C BC #### [facility] [address] [place] [address] Dr. Saray Souza ERUAHD A micrscopic examination will be performed if indicated. Normal [facility] Comment on above: Performed By: #### C BC #### [facility] [address] [address] [address] Saray Souza Glucose Ql (U) Negative Normal NEGATIVE [facility] Comment on above: Performed By: #### C BC #### [facility] [address] [address] [address] Saray Souza Hemoglobin Ql (U) Negative Normal NEGATIVE [facility] Comment on above: Performed By: #### C BC #### [facility] [address] [place] [address] Dr. Saray Souza Ketones Ql (U) Negative Normal NEGATIVE [facility] Comment on above: Performed By: #### C BC #### [facility] [address] [place] [address] Dr. Saray Souza LEUKOCYTES SMALL Abnormal NEGATIVE [facility] Comment on above: Performed By: #### C BC #### [facility] [address] [place] [address] Dr. Saray Souza Nitrite Ql (U) Negative Normal NEGATIVE [facility] Comment on above: Performed By: #### C BC #### [facility] [address] [place] [address] Dr. Saray Souza pH (U) 6.5 [pH] Normal 5-9 [facility] Comment on above: Performed By: #### C BC #### [facility] [address] [place] [address] Dr. Saray Souza SPEC GRAVITY 1.025 Normal 1.005-<=1.025 [facility] Comment on above: Performed By: #### C BC #### [facility] [address] [place] [address] Dr. Saray Souza UA PROTEIN Negative Normal NEGATIVE/ TRACE [facility] Comment on above: Performed By: #### C BC #### [facility] [address] [place] [address] Dr. Saray Souza UR MICRO IND INDICATED Normal [facility] Comment on above: Performed By: #### C BC #### [facility] [address] [place] [address] Dr. Saray Souza Urobilinogen Qn (U) 0.2 {Janine'U}/dL Normal 0.2 - 1. 0 [facility] Comment on above: Performed By: #### C BC #### [facility] [address] [place] [address] Dr. Saray Souza URon 04-17-2023 , QUAL Negative Normal NEGATIVE [facility] Comment on above: Performed By: #### C BC #### [facility] [address] [place] [address] Dr. Saray Souza PROF 14(COMP METB)on 023 Albumin [Mass/Vol] 3.0 g/dL Critically low 3.4-5.0 [facility] Comment on above: Performed By: #### I NSULIN #### [facility] [address] [place] [address] Dr. Saray Souza Albumin/Globulin [Mass ratio] 0.9 {ratio} Normal [facility] Comment on above: Performed By: #### I NSULIN #### [facility] [address] [place] [address] Dr. Saray Souza ALP [Catalytic activity/Vol] 54 U/L Normal 46-116 [facility] Comment on above: Performed By: #### I NSULIN #### [facility] [address] [place] [address] Dr. Saray Souza ALT [Catalytic activity/Vol] 27 U/L Normal 14-59 [facility] Comment on above: Performed By: #### I NSULIN #### [facility] [address] [place] [address] Dr. Saray Souza Anion gap [Moles/Vol] 12.9 mmol/L Normal [facility] Comment on above: Performed By: #### I NSULIN #### [facility] [address] [place] [address] Dr. Saray Souza AST [Catalytic activity/Vol] 12 U/L Critically low 15-37 [facility] Comment on above: Performed By: #### I NSULIN #### [facility] [address] [address] [address] Saray Souza Bilirubin [Mass/Vol] 0.3 mg/dL Normal 0.2-1.0 [facility] Comment on above: Performed By: #### I NSULIN #### [facility] [address] [place] [address] Dr. Saray Souza Calcium [Mass/Vol] 8.1 mg/dL Critically low 8.5-10.1 [facility] Comment on above: Performed By: #### I NSULIN #### [facility] [address] [place] [address] Dr. Saray Souza Chloride [Moles/Vol] 102 mmol/L Normal 98-107 [facility] Comment on above: Performed By: #### I NSULIN #### [facility] [address] [place] [address] Dr. Saray Souza CO2 [Moles/Vol] 26.2 mmol/L Normal 21.0-32.0 [facility] Comment on above: Performed By: #### I NSULIN #### [facility] [address] [place] [address] Dr. Saray Souza Creatinine [Mass/Vol] 0.87 mg/dL Normal 0.55-1.02 [facility] Comment on above: Performed By: #### I NSULIN #### [facility] [address] [place] [address] Dr. Saray Souza EGFR-AF CHINESE >60 Normal >=60 [facility] Comment on above: Performed By: #### I NSULIN #### [facility] [address] [place] [address] Dr. Saray Souza EGFR-NON AF CHINESE >60 Normal >=60 [facility] Comment on above: Performed By: #### I NSULIN #### [facility] [address] [place] [address] Dr. Saray Souza Globulin (S) [Mass/Vol] 3.2 g/dL Normal [facility] Comment on above: Performed By: #### I NSULIN #### [facility] [address] [place] [address] Dr. Saray Souza Glucose [Mass/Vol] 206 mg/dL Critically high 74-106 [facility] Comment on above: Performed By: #### I NSULIN #### [facility] [address] [place] [address] Dr. Saray Souza Potassium [Moles/Vol] 4.1 mmol/L Normal 3.5-5.1 [facility] Comment on above: Performed By: #### I NSULIN #### [facility] [address] [place] [address] Dr. Saray Souza Protein [Mass/Vol] 6.2 g/dL Critically low 6.4-8.2 Th [facility] Comment on above: Performed By: #### I NSULIN #### [facility] [address] [place] [address] Dr. Saray Souza Sodium [Moles/Vol] 137 mmol/L Normal 136-145 [facility] Comment on above: Performed By: #### I NSULIN #### [facility] [address] [place] [address] Dr. Saray Souza Urea nitrogen [Mass/Vol] 19.0 mg/dL Critically high 7.0-18.0 [facility] Comment on above: Performed By: #### I NSULIN #### [facility] [address] [place] [address] Dr. Saray Souza Urea nitrogen/Creatinine [Mass ratio] 21.8 mg/mg Normal [facility] Comment on above: Performed By: #### I NSULIN #### [facility] [address] [place] [address] Dr. Saray Souza TSHon 04-17-2023 TSH 0.553 uIU/mL Normal 0.358-3.740 [facility] Comment on above: Performed By: #### I NSULIN #### [facility] [address] [place] [address] Dr. Saray Souza URINE MICROSCOPIC ONLYon BACTERIA TRACE Abnormal NONE SEEN [facility] Comment on above: Performed By: #### C BC #### [facility] [address] [place] [address] Dr. Saray Souza Bacteria identified Cx Nom (U) INDICATED Normal [facility] Comment on above: Performed By: #### C BC #### [facility] [address] [place] [address] Dr. Saray Souza CAST NONE SEEN Normal NONE SEEN [facility] Comment on above: Performed By: #### C BC #### [facility] [address] [place] [address] Dr. Saray Souza Crystals LM Nom (Urine sed) NONE SEEN Normal NONE SEEN [facility] Comment on above: Performed By: #### C BC #### [facility] [address] [place] [address] Dr. Saray Souza Epithelial cells LM Ql (Urine sed) RARE Normal NONE SEEN /RARE [facility] Comment on above: Performed By: #### C BC #### [facility] [address] [place] [address] Dr. Saray Souza MUCOUS NONE SEEN Normal NONE SEEN [facility] Comment on above: Performed By: #### C BC #### [facility] [address] [place] [address] Dr. Saray Souza RBC 0-2 Normal 0-2 [facility] Comment on above: Performed By: #### C BC #### [facility] [address] [place] [address] Dr. Saray Souza WBC 5-10 Abnormal NONE SEEN [facility] Comment on above: Performed By: #### C BC #### [facility] [address] [place] [address] Dr. Saray Souza XR CHEST 2 Von [...] INSULINon 04-07-2023 Insulin 11.3 uIU/mL Normal 2.6-24.9 [facility] Comment on above: Performed By: #### I NSULIN #### [facility] [address] [place] [address] Dr. Saray Souza US KIDNEYS BLADDERon 023 [...] 04-02-2023 Insulin 37.5 uIU/mL Critically high 2.6-24.9 [facility] Comment on above: Performed By: #### I NSULIN #### [facility] [address] [place] [address] Dr. Saray Souza CBC AUTO DIFFon 04-01-2023 BASO # 0.0 103/ul Normal 0.0-0.1 [facility] Comment on above: Performed By: #### C BC #### [facility] [address] [place] [address] Dr. Saray Souza Basophils/100 WBC (Bld) 0.5 % Normal 0.2-2.0 [facility] Comment on above: Performed By: #### C BC #### [facility] [address] [place] [address] Dr. Saray Souza EO # 0.2 103/ul Normal 0.0-0.7 [facility] Comment on above: Performed By: #### C BC #### [facility] [address] [place] [address] Dr. Saray Souza Eosinophils/100 WBC (Bld) 2.3 % Normal 0.9-7.0 [facility] Comment on above: Performed By: #### C BC #### [facility] [address] [place] [address] Dr. Saray Souza Erythrocyte distribution width (RBC) [Ratio] 11.9 % Normal 11.0-15.0 [facility] Comment on above: Performed By: #### C BC #### [facility] [address] [place] [address] Dr. Saray Souza Hematocrit (Bld) [Volume fraction] 42.2 % Normal 36.0-48.0 [facility] Comment on above: Performed By: #### C BC #### [facility] [address] [place] [address] Dr. Saray Souza Hemoglobin (Bld) [Mass/Vol] 13.7 g/dL Normal 12.0-16.0 [facility] Comment on above: Performed By: #### C BC #### [facility] [address] [place] [address] Dr. Saray Souza IG # 0.02 10e3/ul Normal 0.00-0.03 [facility] Comment on above: Performed By: #### C BC #### [facility] [address] [place] [address] Dr. Saray Souza IG % 0.3 % Normal 0.0-0.5 [facility] Comment on above: Performed By: #### C BC #### [facility] [address] [place] [address] Dr. Saray Souza LYMPH # 1.6 103/ul Normal 1.2-3.8 [facility] Comment on above: Performed By: #### C BC #### [facility] [address] [place] [address] Dr. Saray Souza Lymphocytes/100 WBC (Bld) 21.5 % Normal 20.5-60.0 [facility] Comment on above: Performed By: #### C BC #### [facility] [address] [place] [address] Dr. Saray Souza MANUAL DIFF REQ NO Normal [facility] Comment on above: Performed By: #### C BC #### [facility] [address] [place] [address] Dr. Saray Souza MCH (RBC) [Entitic mass] 30.0 pg Normal 26.7-34.0 [facility] Comment on above: Performed By: #### C BC #### [facility] [address] [place] [address] Dr. Saray Souza MCHC (RBC) [Mass/Vol] 32.5 g/dL Normal 29.9-35.2 [facility] Comment on above: Performed By: #### C BC #### [facility] [address] [place] [address] Dr. Saray Souza MCV (RBC) [Entitic vol] 92.5 fL Normal 81.0-99.0 [facility] Comment on above: Performed By: #### C BC #### [facility] [address] [place] [address] Dr. Saray Souza MONO # 0.7 103/ul Normal 0.3-0.8 [facility] Comment on above: Performed By: #### C BC #### [facility] [address] [place] [address] Dr. Saray Souaz Monocytes/100 WBC (Bld) 9.6 % Normal 1.7-12.0 [facility] Comment on above: Performed By: #### C BC #### [facility] [address] [place] [address] Dr. Saray Souza NEUT # 5.0 103/ul Normal 1.4-6.5 [facility] Comment on above: Performed By: #### C BC #### [facility] [address] [place] [address] Dr. Saray Souza Neutrophils/100 WBC (Bld) 65.8 % Normal 43.0-75.0 [facility] Comment on above: Performed By: #### C BC #### [facility] [address] [address] [address] Saray Souza Platelet mean volume (Bld) [Entitic vol] 8.9 fL Critically low 9.5-13.5 [facility] Comment on above: Performed By: #### C BC #### [facility] [address] [address] [address] Saray Souza PLT 293 103/ul Normal 150-450 [facility] Comment on above: Performed By: #### C BC #### [facility] [address] [address] [address] Saray Souza RBC 4.56 106/ul Normal 4.20-5.40 [facility] Comment on above: Performed By: #### C BC #### [facility] [address] [place] [address] Dr. Saray Souza WBC 7.5 103/ul Normal 4.0-11.0 [facility] Comment on above: Performed By: #### C BC #### [facility] [address] [place] [address] Dr. Saray Souza CULTURE URINEon 04-01-2023 CULTURE URINE Culture Observations : MODERATE GROWTH OF MIXED GENITAL CARMELO. NO POTENTIAL PATHOGENS SEEN. Normal [facility] Comment on above: Performed By: #### C BC #### [facility] [address] [place] [address] Dr. Saray Souza FREE THYROXINE INDEX T7on FTI 2.51 Normal 1.30-4.50 [facility] Comment on above: Performed By: #### I NSULIN #### [facility] [address] [place] [address] Dr. Saray Souza T3U 33.0 % Normal 30.0-39.0 [facility] Comment on above: Performed By: #### I NSULIN #### [facility] [address] [place] [address] Dr. Saray Souza T4 [Mass/Vol] 7.60 ug/dL Normal 4.80-13.90 [facility] Comment on above: Performed By: #### I ANA #### [facility] [address] [address] [address] Saray FRIENDon 04-01-2023 Iron [Mass/Vol] 151.0 ug/dL Normal 50.0-170.0 [facility] Comment on above: Performed By: #### C EDGARDO #### [facility] [address] [place] [address] Dr. Saray Souza PROF 14(COMP METB)on 023 Albumin [Mass/Vol] 3.7 g/dL Normal 3.4-5.0 [facility] Comment on above: Performed By: #### C EDGARDO #### [facility] [address] [place] [address] Dr. Saray Souza Albumin/Globulin [Mass ratio] 1.1 {ratio} Normal [facility] Comment on above: Performed By: #### C EDGARDO #### [facility] [address] [place] [address] Dr. Saray Souza ALP [Catalytic activity/Vol] 81 U/L Normal 46-116 [facility] Comment on above: Performed By: #### C EDGARDO #### [facility] [address] [place] [address] Dr. Saray Souza ALT [Catalytic activity/Vol] 33 U/L Normal 14-59 [facility] Comment on above: Performed By: #### C EDGARDO #### [facility] [address] [place] [address] Dr. Saray Souza Anion gap [Moles/Vol] 10.2 mmol/L Normal [facility] Comment on above: Performed By: #### C EDGARDO #### [facility] [address] [place] [address] Dr. Saray Souza AST [Catalytic activity/Vol] 22 U/L Normal 15-37 [facility] Comment on above: Performed By: #### C EDGARDO #### [facility] [address] [place] [address] Dr. Saray Souza Bilirubin [Mass/Vol] 0.3 mg/dL Normal 0.2-1.0 [facility] Comment on above: Performed By: #### C BCMAN #### [facility] [address] [address] [address] Saray Souza Calcium [Mass/Vol] 8.6 mg/dL Normal 8.5-10.1 [facility] Comment on above: Performed By: #### C BCMAN #### [facility] [address] [address] [address] Saray Souza Chloride [Moles/Vol] 105 mmol/L Normal 98-107 [facility] Comment on above: Performed By: #### C BCMAN #### [facility] [address] [place] [address] Dr. Saray oSuza CO2 [Moles/Vol] 30.4 mmol/L Normal 21.0-32.0 [facility] Comment on above: Performed By: #### C BCMAN #### [facility] [address] [place] [address] Dr. Saray Souza Creatinine [Mass/Vol] 0.72 mg/dL Normal 0.55-1.02 [facility] Comment on above: Performed By: #### C BCMAN #### [facility] [address] [place] [address] Dr. Saray Souza EGFR-AF CHINESE >60 Normal >=60 [facility] Comment on above: Performed By: #### C BCMAN #### [facility] [address] [place] [address] Dr. Saray Souza EGFR-NON AF CHINESE >60 Normal >=60 [facility] Comment on above: Performed By: #### C BCMAN #### [facility] [address] [place] [address] Dr. Saray Souza Globulin (S) [Mass/Vol] 3.5 g/dL Normal [facility] Comment on above: Performed By: #### C BCMAN #### [facility] [address] [place] [address] Dr. Saray Souza Glucose [Mass/Vol] 89 mg/dL Normal 74-[address] [facility] Comment on above: Performed By: #### C BCMAN #### [facility] [address] [address] [address] Saray Souza Potassium [Moles/Vol] 3.6 mmol/L Normal 3.5-5.1 [facility] Comment on above: Performed By: #### C EDGARDO #### [facility] [address] [address] [address] Saray Souza Protein [Mass/Vol] 7.2 g/dL Normal 6.4-8.2 [facility] Comment on above: Performed By: #### C EDGARDO #### [facility] [address] [place] [address] Dr. Saray Souza Sodium [Moles/Vol] 142 mmol/L Normal 136-145 [facility] Comment on above: Performed By: #### C EDGARDO #### [facility] [address] [place] [address] Dr. Saray Souza Urea nitrogen [Mass/Vol] 12.0 mg/dL Normal 7.0-18.0 [facility] Comment on above: Performed By: #### C EDGARDO #### [facility] [address] [place] [address] Dr. Saray Souza Urea nitrogen/Creatinine [Mass ratio] 16.7 mg/mg Normal [facility] Comment on above: Performed By: #### C EDGARDO #### [facility] [address] [place] [address] Dr. Saray Souza TSHon 04-01-2023 TSH 1.708 uIU/mL Normal 0.358-3.740 [facility] Comment on above: Performed By: #### I NSULIN #### [facility] [address] [place] [address] Dr. Saray Souza UA RANDOM W/MICROSCOPICon BACTERIA SMALL Abnormal NONE SEEN [facility] Comment on above: Performed By: #### I NSULIN #### [facility] [address] [place] [address] Dr. Saray Souza Bilirubin Ql (U) Negative Normal NEGATIVE [facility] Comment on above: Performed By: #### I NSULIN #### [facility] [address] [place] [address] Dr. Saray Souza CAST NONE SEEN Normal NONE SEEN [facility] Comment on above: Performed By: #### I NSULIN #### [facility] [address] [place] [address] Dr. Saray Souza Clarity (U) CLEAR Normal CLEAR [facility] Comment on above: Performed By: #### I NSULIN #### [facility] [address] [place] [address] Dr. Saray Souza Color (U) YELLOW Normal YELLOW [facility] Comment on above: Performed By: #### I NSULIN #### [facility] [address] [place] [address] Dr. Saray Souza Crystals LM Nom (Urine sed) NONE SEEN Normal NONE SEEN [facility] Comment on above: Performed By: #### I NSULIN #### [facility] [address] [place] [address] Dr. Saray Souza Epithelial cells LM Ql (Urine sed) FEW Abnormal NONE SEEN /RARE [facility] Comment on above: Performed By: #### I NSULIN #### [facility] [address] [place] [address] Dr. Saray Souza Glucose Ql (U) Negative Normal NEGATIVE [facility] Comment on above: Performed By: #### I NSULIN #### [facility] [address] [place] [address] Dr. Saray Souza Hemoglobin Ql (U) Negative Normal NEGATIVE [facility] Comment on above: Performed By: #### I NSULIN #### [facility] [address] [place] [address] Dr. Saray Souza Ketones Ql (U) TRACE Abnormal NEGATIVE [facility] Comment on above: Performed By: #### I NSULIN #### [facility] [address] [place] [address] Dr. Saray Souza LEUKOCYTES SMALL Abnormal NEGATIVE [facility] Comment on above: Performed By: #### I NSULIN #### [facility] [address] [place] [address] Dr. Saray Souza MUCOUS NONE SEEN Normal NONE SEEN [facility] Comment on above: Performed By: #### I NSULIN #### [facility] [address] [place] [address] Dr. Saray Souza Nitrite Ql (U) Negative Normal NEGATIVE [facility] Comment on above: Performed By: #### I NSULIN #### [facility] [address] [place] [address] Dr. Saray Souza pH (U) 5.5 [pH] Normal 5-9 [facility] Comment on above: Performed By: #### I NSULIN #### [facility] [address] [place] [address] Dr. Saray Souza RBC 0-2 Normal 0-2 [facility] Comment on above: Performed By: #### I NSULIN #### [facility] [address] [place] [address] Dr. Saray Souza SPEC GRAVITY >=1.030 Abnormal 1.005-<=1.025 [facility] Comment on above: Performed By: #### I NSULIN #### [facility] [address] [place] [address] Dr. Saray Souza UA PROTEIN Negative Normal NEGATIVE/ TRACE [facility] Comment on above: Performed By: #### I NSULIN #### [facility] [address] [place] [address] Dr. Saray Souza Urobilinogen Qn (U) 0.2 {Janine'U}/dL Normal 0.2 - 1. 0 [facility] Comment on above: Performed By: #### I NSULIN #### [facility] [address] [place] [address] Dr. Saray Souza WBC 5-10 Abnormal NONE SEEN [facility] Comment on above: Performed By: #### I NSULIN #### [facility] [address] [place] [address] Dr. Saray Souza INSULINon 02-14-2023 Insulin 12.8 uIU/mL Normal 2.6-24.9 [facility] Comment on above: Performed By: #### C BC #### [facility] [address] [place] [address] Dr. Saray Souza CBC AUTO DIFFon 02-13-2023 BASO # 0.0 103/ul Normal 0.0-0.1 [facility] Comment on above: Performed By: #### C BC #### [facility] [address] [place] [address] Dr. Saray Souza Basophils/100 WBC (Bld) 0.4 % Normal 0.2-2.0 [facility] Comment on above: Performed By: #### C BC #### [facility] [address] [place] [address] Dr. Saray Souza EO # 0.1 103/ul Normal 0.0-0.7 [facility] Comment on above: Performed By: #### C BC #### [facility] [address] [place] [address] Dr. Saray Souza Eosinophils/100 WBC (Bld) 1.6 % Normal 0.9-7.0 [facility] Comment on above: Performed By: #### C BC #### [facility] [address] [place] [address] Dr. Saray Souza Erythrocyte distribution width (RBC) [Ratio] 11.9 % Normal 11.0-15.0 [facility] Comment on above: Performed By: #### C BC #### [facility] [address] [place] [address] Dr. Saray Souza Hematocrit (Bld) [Volume fraction] 41.9 % Normal 36.0-48.0 [facility] Comment on above: Performed By: #### C BC #### [facility] [address] [place] [address] Dr. Saray Souza Hemoglobin (Bld) [Mass/Vol] 13.7 g/dL Normal 12.0-16.0 [facility] Comment on above: Performed By: #### C BC #### [facility] [address] [place] [address] Dr. Saray Souza IG # 0.02 10e3/ul Normal 0.00-0.03 [facility] Comment on above: Performed By: #### C BC #### [facility] [address] [address] [address] Saray Souza IG % 0.3 % Normal 0.0-0.5 [facility] Comment on above: Performed By: #### C BC #### [facility] [address] [address] [address] Saray Souza LYMPH # 1.4 103/ul Normal 1.2-3.8 [facility] Comment on above: Performed By: #### C BC #### [facility] [address] [place] [address] Dr. Saray Souza Lymphocytes/100 WBC (Bld) 18.6 % Critically low 20.5-60.0 [facility] Comment on above: Performed By: #### C BC #### [facility] [address] [place] [address] Dr. Saray Souza MANUAL DIFF REQ NO Normal [facility] Comment on above: Performed By: #### C BC #### [facility] [address] [place] [address] Dr. Saray Souza MCH (RBC) [Entitic mass] 29.9 pg Normal 26.7-34.0 [facility] Comment on above: Performed By: #### C BC #### [facility] [address] [place] [address] Dr. Saray Souza MCHC (RBC) [Mass/Vol] 32.7 g/dL Normal 29.9-35.2 [facility] Comment on above: Performed By: #### C BC #### [facility] [address] [place] [address] Dr. Saray Souza MCV (RBC) [Entitic vol] 91.5 fL Normal 81.0-99.0 [facility] Comment on above: Performed By: #### C BC #### [facility] [address] [place] [address] Dr. Saray Souza MONO # 0.6 103/ul Normal 0.3-0.8 [facility] Comment on above: Performed By: #### C BC #### [facility] [address] [place] [address] Dr. Saray Souza Monocytes/100 WBC (Bld) 8.3 % Normal 1.7-12.0 [facility] Comment on above: Performed By: #### C BC #### [facility] [address] [place] [address] Dr. Saray Souza NEUT # 5.5 103/ul Normal 1.4-6.5 [facility] Comment on above: Performed By: #### C BC #### [facility] [address] [place] [address] Dr. Saray Souza Neutrophils/100 WBC (Bld) 70.8 % Normal 43.0-75.0 [facility] Comment on above: Performed By: #### C BC #### [facility] [address] [place] [address] Dr. Saray Souza Platelet mean volume (Bld) [Entitic vol] 9.0 fL Critically low 9.5-13.5 [facility] Comment on above: Performed By: #### C BC #### [facility] [address] [place] [address] Dr. Saray Souza PLT 271 103/ul Normal 150-450 [facility] Comment on above: Performed By: #### C BC #### [facility] [address] [place] [address] Dr. Saray Souza RBC 4.58 106/ul Normal 4.20-5.40 [facility] Comment on above: Performed By: #### C BC #### [facility] [address] [place] [address] Dr. Saray Souza WBC 7.7 103/ul Normal 4.0-11.0 [facility] Comment on above: Performed By: #### C BC #### [facility] [address] [place] [address] Dr. Saray Souza FREE THYROXINE INDEX T7on FTI 2.56 Normal 1.30-4.50 [facility] Comment on above: Performed By: #### I NSULIN #### [facility] [address] [place] [address] Dr. Saray Souza T3U 36.0 % Normal 30.0-39.0 [facility] Comment on above: Performed By: #### I NSULIN #### [facility] [address] [place] [address] Dr. Saray Souza T4 [Mass/Vol] 7.10 ug/dL Normal 4.80-13.90 [facility] Comment on above: Performed By: #### I NSULIN #### [facility] [address] [place] [address] Dr. Saray Souza IRONon 02-13-2023 Iron [Mass/Vol] 130.0 ug/dL Normal 50.0-170.0 [facility] Comment on above: Performed By: #### C BCMAN #### [facility] [address] [place] [address] Dr. Saray Souza PROF 14(COMP METB)on 023 Albumin [Mass/Vol] 3.8 g/dL Normal 3.4-5.0 [facility] Comment on above: Performed By: #### I NSULIN #### [facility] [address] [place] [address] Dr. Saray Souza Albumin/Globulin [Mass ratio] 1.2 {ratio} Normal [facility] Comment on above: Performed By: #### I NSULIN #### [facility] [address] [place] [address] Dr. Saray Souza ALP [Catalytic activity/Vol] 82 U/L Normal 46-116 [facility] Comment on above: Performed By: #### I NSULIN #### [facility] [address] [place] [address] Dr. Saray Souza ALT [Catalytic activity/Vol] 25 U/L Normal 14-59 [facility] Comment on above: Performed By: #### I NSULIN #### [facility] [address] [place] [address] Dr. Saray Souza Anion gap [Moles/Vol] 12.7 mmol/L Normal [facility] Comment on above: Performed By: #### I NSULIN #### [facility] [address] [place] [address] Dr. Saray Souza AST [Catalytic activity/Vol] 19 U/L Normal 15-37 [facility] Comment on above: Performed By: #### I NSULIN #### [facility] [address] [address] [address] Saray Souza Bilirubin [Mass/Vol] 0.3 mg/dL Normal 0.2-1.0 [facility] Comment on above: Performed By: #### I NSULIN #### [facility] [address] [address] [address] Saray Souza Calcium [Mass/Vol] 8.8 mg/dL Normal 8.5-10.1 [facility] Comment on above: Performed By: #### I NSULIN #### [facility] [address] [place] [address] Dr. Saray Souza Chloride [Moles/Vol] 101 mmol/L Normal 98-107 [facility] Comment on above: Performed By: #### I NSULIN #### [facility] [address] [place] [address] Dr. Saray Souza CO2 [Moles/Vol] 27.3 mmol/L Normal 21.0-32.0 [facility] Comment on above: Performed By: #### I NSULIN #### [facility] [address] [place] [address] Dr. Saray Souza Creatinine [Mass/Vol] 0.69 mg/dL Normal 0.55-1.02 [facility] Comment on above: Performed By: #### I NSULIN #### [facility] [address] [place] [address] Dr. Saray Souza EGFR-AF CHINESE >60 Normal >=60 [facility] Comment on above: Performed By: #### I NSULIN #### [facility] [address] [place] [address] Dr. Saray Souza EGFR-NON AF CHINESE >60 Normal >=60 [facility] Comment on above: Performed By: #### I NSULIN #### [facility] [address] [place] [address] Dr. Saray Souza Globulin (S) [Mass/Vol] 3.3 g/dL Normal [facility] Comment on above: Performed By: #### I NSULIN #### [facility] [address] [place] [address] Dr. Saray Souza Glucose [Mass/Vol] 83 mg/dL Normal 74-106 [facility] Comment on above: Performed By: #### I NSULIN #### [facility] [address] [place] [address] Dr. Saray Souza Potassium [Moles/Vol] 4.0 mmol/L Normal 3.5-5.1 [facility] Comment on above: Performed By: #### I NSULIN #### [facility] [address] [place] [address] Dr. Saray Souza Protein [Mass/Vol] 7.1 g/dL Normal 6.4-8.2 [facility] Comment on above: Performed By: #### I NSULIN #### [facility] [address] [place] [address] Dr. Saray Souza Sodium [Moles/Vol] 137 mmol/L Normal 136-145 [facility] Comment on above: Performed By: #### I NSULIN #### [facility] [address] [place] [address] Dr. Saray Souza Urea nitrogen [Mass/Vol] 10.0 mg/dL Normal 7.0-18.0 [facility] Comment on above: Performed By: #### I NSULIN #### [facility] [address] [place] [address] Dr. Saray Souza Urea nitrogen/Creatinine [Mass ratio] 14.5 mg/mg Normal [facility] Comment on above: Performed By: #### I NSULIN #### [facility] [address] [place] [address] Dr. Saray Souza TSHon 02-13-2023 TSH 2.745 uIU/mL Normal 0.358-3.740 [facility] Comment on above: Performed By: #### I NSULIN #### [facility] [address] [place] [address] Dr. Saray Souza AMYLASEon 02-04-2023 Amylase [Catalytic activity/Vol] 45 U/L Normal 25-115 [facility] Comment on above: Performed By: #### T SH, CMP, HSTROPN, LIPA, KELLE #### [facility] [address] [place] [address] Dr. Saray Souza CBC AUTO DIFFon 02-04-2023 BASO # 0.0 103/ul Normal 0.0-0.1 [facility] Comment on above: Performed By: #### C BC #### [facility] [address] [place] [address] Dr. Saray Souza Basophils/100 WBC (Bld) 0.4 % Normal 0.2-2.0 [facility] Comment on above: Performed By: #### C BC #### [facility] [address] [place] [address] Dr. Saray Souza EO # 0.1 103/ul Normal 0.0-0.7 [facility] Comment on above: Performed By: #### C BC #### [facility] [address] [place] [address] Dr. Saray Souza Eosinophils/100 WBC (Bld) 1.7 % Normal 0.9-7.0 [facility] Comment on above: Performed By: #### C BC #### [facility] [address] [place] [address] Dr. Saray Souza Erythrocyte distribution width (RBC) [Ratio] 12.0 % Normal 11.0-15.0 [facility] Comment on above: Performed By: #### C BC #### [facility] [address] [place] [address] Dr. Saray Souza Hematocrit (Bld) [Volume fraction] 42.3 % Normal 36.0-48.0 [facility] Comment on above: Performed By: #### C BC #### [facility] [address] [place] [address] Dr. Saray Souza Hemoglobin (Bld) [Mass/Vol] 13.9 g/dL Normal 12.0-16.0 [facility] Comment on above: Performed By: #### C BC #### [facility] [address] [place] [address] Dr. Saray Souza IG # 0.03 10e3/ul Normal 0.00-0.03 [facility] Comment on above: Performed By: #### C BC #### [facility] [address] [place] [address] Dr. Saray Souza IG % 0.4 % Normal 0.0-0.5 [facility] Comment on above: Performed By: #### C BC #### [facility] [address] [place] [address] Dr. Saray Souza LYMPH # 1.5 103/ul Normal 1.2-3.8 [facility] Comment on above: Performed By: #### C BC #### [facility] [address] [place] [address] Dr. Saray Souza Lymphocytes/100 WBC (Bld) 20.4 % Critically low 20.5-60.0 [facility] Comment on above: Performed By: #### C BC #### [facility] [address] [place] [address] Dr. Saray Souza MANUAL DIFF REQ NO Normal [facility] Comment on above: Performed By: #### C BC #### [facility] [address] [place] [address] Dr. Saray Souza MCH (RBC) [Entitic mass] 30.0 pg Normal 26.7-34.0 [facility] Comment on above: Performed By: #### C BC #### [facility] [facility] [address] [place] [address] Dr. Saray Souza MCHC (RBC) [Mass/Vol] 32.9 g/dL Normal 29.9-35.2 [facility] Comment on above: Performed By: #### C BC #### [facility] [address] [place] [address] Dr. Saray Souza MCV (RBC) [Entitic vol] 91.2 fL Normal 81.0-99.0 [facility] Comment on above: Performed By: #### C BC #### [facility] [address] [place] [address] Dr. Saray Souza MONO # 0.6 103/ul Normal 0.3-0.8 [facility] Comment on above: Performed By: #### C BC #### [facility] [address] [place] [address] Dr. Saray Souza Monocytes/100 WBC (Bld) 7.7 % Normal 1.7-12.0 [facility] Comment on above: Performed By: #### C BC #### [facility] [address] [place] [address] Dr. Saray Souza NEUT # 5.2 103/ul Normal 1.4-6.5 [facility] Comment on above: Performed By: #### C BC #### [facility] [address] [place] [address] Dr. Saray Souza Neutrophils/100 WBC (Bld) 69.4 % Normal 43.0-75.0 [facility] Comment on above: Performed By: #### C BC #### [facility] [address] [place] [address] Dr. Saray Souza Platelet mean volume (Bld) [Entitic vol] 9.0 fL Critically low 9.5-13.5 [facility] Comment on above: Performed By: #### C BC #### [facility] [address] [place] [address] Dr. Saray Souza PLT 292 103/ul Normal 150-450 [facility] Comment on above: Performed By: #### C BC #### [facility] [address] [place] [address] Dr. Saray Souza RBC 4.64 106/ul Normal 4.20-5.40 [facility] Comment on above: Performed By: #### C BC #### [facility] [address] [place] [address] Dr. Saray Souza WBC 7.5 103/ul Normal 4.0-11.0 [facility] Comment on above: Performed By: #### C BC #### [facility] [address] [place] [address] Dr. Saray Souza CULTURE URINEon 02-04-2023 CULTURE URINE Culture Observations : LIGHT GROWTH OF MIXED GENITAL CARMELO. NO POTENTIAL PATHOGENS SEEN. Normal [facility] Comment on above: Performed By: #### C BC #### [facility] [address] [place] [address] Dr. Saray Souza ER URINE PROFILEon 3 Bilirubin Ql (U) Negative Normal NEGATIVE [facility] Comment on above: Performed By: #### C BC #### [facility] [address] [place] [address] Dr. Saray Souza Clarity (U) CLEAR Normal CLEAR [facility] Comment on above: Performed By: #### C BC #### [facility] [address] [place] [address] Dr. Saray Souza Color (U) LT. YELLOW Normal YELLOW [facility] Comment on above: Performed By: #### C BC #### [facility] [address] [place] [address] Dr. Saray PARKERAHHumera A micrscopic examination will be performed if indicated. Normal [facility] Comment on above: Performed By: #### C BC #### [facility] [address] [place] [address] Dr. Saray Souza Glucose Ql (U) Negative Normal NEGATIVE [facility] Comment on above: Performed By: #### C BC #### [facility] [address] [place] [address] Dr. Saray Souza Hemoglobin Ql (U) Negative Normal NEGATIVE [facility] Comment on above: Performed By: #### C BC #### [facility] [address] [place] [address] Dr. Saray Souza Ketones Ql (U) Negative Normal NEGATIVE [facility] Comment on above: Performed By: #### C BC #### [facility] [address] [place] [address] Dr. Saray Souza LEUKOCYTES MODERATE Abnormal NEGATIVE [facility] Comment on above: Performed By: #### C BC #### [facility] [address] [place] [address] Dr. Saray Souza Nitrite Ql (U) Negative Normal NEGATIVE [facility] Comment on above: Performed By: #### C BC #### [facility] [address] [place] [address] Dr. Saray Souza pH (U) 5.5 [pH] Normal 5-9 [facility] Comment on above: Performed By: #### C BC #### [facility] [address] [place] [address] Dr. Saray Souza SPEC GRAVITY >=1.030 Abnormal 1.005-<=1.025 [facility] Comment on above: Performed By: #### C BC #### [facility] [address] [place] [address] Dr. Saray Souza UA PROTEIN Negative Normal NEGATIVE/ TRACE [facility] Comment on above: Performed By: #### C BC #### [facility] [address] [place] [address] Dr. Saray Souza UR MICRO IND INDICATED Normal [facility] Comment on above: Performed By: #### C BC #### [facility] [address] [place] [address] Dr. Saray Souza Urobilinogen Qn (U) 0.2 {Janine'U}/dL Normal 0.2 - 1. 0 [facility] Comment on above: Performed By: #### C BC #### [facility] [address] [place] [address] Dr. Saray Souza LIPASEon 02-04-2023 Lipase [Catalytic activity/Vol] 97.0 U/L Normal 73.0-393.0 [facility] Comment on above: Performed By: #### T SH, CMP, HSTROPN, LIPA, KELLE #### [facility] [address] [place] [address] Dr. Saray Souza URon 02-04-2023 , QUAL Negative Normal NEGATIVE [facility] Comment on above: Performed By: #### C BC #### [facility] [address] [place] [address] Dr. Saray Souza PROF 14(COMP METB)on 023 Albumin [Mass/Vol] 3.5 g/dL Normal 3.4-5.[address] [facility] Comment on above: Performed By: #### T SH, CMP, HSTROPN, LIPA, KELLE #### [facility] [address] [place] [address] Dr. Saray Souza Albumin/Globulin [Mass ratio] 1.2 {ratio} Normal [facility] Comment on above: Performed By: #### T SH, CMP, HSTROPN, LIPA, KELLE #### [facility] [address] [place] [address] Dr. Saray Souza ALP [Catalytic activity/Vol] 78 U/L Normal 46-116 [facility] Comment on above: Performed By: #### T SH, CMP, HSTROPN, LIPA, KELLE #### [facility] [address] [place] [address] Dr. Saray Souza ALT [Catalytic activity/Vol] 24 U/L Normal 14-59 [facility] Comment on above: Performed By: #### T SH, CMP, HSTROPN, LIPA, KELLE #### [facility] [address] [place] [address] Dr. Saray Souza Anion gap [Moles/Vol] 7.9 mmol/L Normal [facility] Comment on above: Performed By: #### T SH, CMP, HSTROPN, LIPA, KELLE #### [facility] [address] [place] [address] Dr. Saray Souza AST [Catalytic activity/Vol] 16 U/L Normal 15-37 [facility] Comment on above: Performed By: #### T SH, CMP, HSTROPN, LIPA, KELLE #### [facility] [address] [place] [address] Dr. Saray Souza Bilirubin [Mass/Vol] 0.3 mg/dL Normal 0.2-1.0 [facility] Comment on above: Performed By: #### T SH, CMP, HSTROPN, LIPA, KELLE #### [facility] [address] [place] [address] Dr. Saray Souza Calcium [Mass/Vol] 8.6 mg/dL Normal 8.5-10.[address] [facility] Comment on above: Performed By: #### T SH, CMP, HSTROPN, LIPA, KELLE #### [facility] [address] [address] [address] Saray Souza Chloride [Moles/Vol] 105 mmol/L Normal 98-107 [facility] Comment on above: Performed By: #### T SH, CMP, HSTROPN, LIPA, KELLE #### [facility] [address] [address] [address] Saray Souza CO2 [Moles/Vol] 28.9 mmol/L Normal 21.0-32.0 [facility] Comment on above: Performed By: #### T SH, CMP, HSTROPN, LIPA, KELLE #### [facility] [address] [place] [address] Dr. Saray Souza Creatinine [Mass/Vol] 0.67 mg/dL Normal 0.55-1.02 [facility] Comment on above: Performed By: #### T SH, CMP, HSTROPN, LIPA, KELLE #### [facility] [address] [place] [address] Dr. Saray Souza EGFR-AF CHINESE >60 Normal >=60 [facility] Comment on above: Performed By: #### T SH, CMP, HSTROPN, LIPA, KELLE #### [facility] [address] [place] [address] Dr. Saray Souza EGFR-NON AF CHINESE >60 Normal >=60 [facility] Comment on above: Performed By: #### T SH, CMP, HSTROPN, LIPA, KELLE #### [facility] [address] [place] [address] Dr. Saray Souza Globulin (S) [Mass/Vol] 3.0 g/dL Normal [facility] Comment on above: Performed By: #### T SH, CMP, HSTROPN, LIPA, KELLE #### [facility] [address] [place] [address] Dr. Saray Souza Glucose [Mass/Vol] 97 mg/dL Normal 74-[address] [facility] Comment on above: Performed By: #### T SH, CMP, HSTROPN, LIPA, KELLE #### [facility] [address] [address] [address] Saray Souza Potassium [Moles/Vol] 3.8 mmol/L Normal 3.5-5.1 [facility] Comment on above: Performed By: #### T SH, CMP, HSTROPN, LIPA, KELLE #### [facility] [address] [address] [address] Saray Souza Protein [Mass/Vol] 6.5 g/dL Normal 6.4-8.[address] [facility] Comment on above: Performed By: #### T SH, CMP, HSTROPN, LIPA, KELLE #### [facility] [address] [place] [address] Dr. Saray Souza Sodium [Moles/Vol] 138 mmol/L Normal 136-[address] [facility] Comment on above: Performed By: #### T SH, CMP, HSTROPN, LIPA, KELLE #### [facility] [address] [address] [address] Saray Souza Urea nitrogen [Mass/Vol] 13.0 mg/dL Normal 7.0-18.0 [facility] Comment on above: Performed By: #### T SH, CMP, HSTROPN, LIPA, KELLE #### [facility] [address] [place] [address] Dr. Saray Souza Urea nitrogen/Creatinine [Mass ratio] 19.4 mg/mg Normal [facility] Comment on above: Performed By: #### T SH, CMP, HSTROPN, LIPA, KELLE #### [facility] [address] [place] [address] Dr. Saray Souza TROPONIN, HIGH SENSITIVITYon 02-04-2023 HSTROP 4.0 pg/mL Normal 4.0-51.3 [facility] Comment on above: Result Comment: CUT- OFF POINTS HAVE BEEN ESTABLISHED BASED ON THE FOURTH UNIVERSAL DEFINITIONS OF MYOCARDIAL INFARCTION. THE UPPER REFERENCE LIMIT (URL) OF TROPONIN, DEFINED THE 99TH PERCENTILE OF cTnI DISTRIBUTION IN A REFERENCE POPULATION, HAS BEEN CONFIRMED THE DECISION THRESHOLD FOR [place] DIAGNOSIS. Performed By: #### T SH, CMP, HSTROPN, LIPA, KELLE #### [facility] [address] [place] [address] Dr. Saray Souza TSHon 02-04-2023 TSH 2.478 uIU/mL Normal 0.358-3.740 [facility] Comment on above: Performed By: #### T SH, CMP, HSTROPN, LIPA, KELLE #### [facility] [address] [place] [address] Dr. Saray Souza URINE MICROSCOPIC ONLYon BACTERIA MODERATE Abnormal NONE SEEN [facility] Comment on above: Performed By: #### C BC #### [facility] [address] [place] [address] Dr. Saray Souza Bacteria identified Cx Nom (U) INDICATED Normal [facility] Comment on above: Performed By: #### C BC #### [facility] [address] [place] [address] Dr. Saray Souza CAST NONE SEEN Normal NONE SEEN [facility] Comment on above: Performed By: #### C BC #### [facility] [address] [place] [address] Dr. Saray Souza Crystals LM Nom (Urine sed) NONE SEEN Normal NONE SEEN [facility] Comment on above: Performed By: #### C BC #### [facility] [address] [place] [address] Dr. Saray Souza Epithelial cells LM Ql (Urine sed) MODERATE Abnormal NONE SEEN /RARE [facility] Comment on above: Performed By: #### C BC #### [facility] [address] [place] [address] Dr. Saray Souza MUCOUS NONE SEEN Normal NONE SEEN [facility] Comment on above: Performed By: #### C BC #### [facility] [address] [place] [address] Dr. Saray Souza RBC 5-10 Abnormal 0-2 [facility] Comment on above: Performed By: #### C BC #### [facility] [address] [place] [address] Dr. Saray Souza WBC 10-20 Abnormal NONE SEEN [facility] Comment on above: Performed By: #### C BC #### [facility] [address] [address] [address] Saray Souza Covid-19 PCR ([facility])on 09-24 SARS-CoV-2 (COVID-19) RNA DAYDAY+probe [...] for this test is supported by the [place] of Health and Human Service's declaration that [...] C BC #### [facility] [address] [place] [address] Dr. Saray Souza INFLUENZA A AND B AGon 10-20 [facility] SEE BELOW Normal [facility] Comment on above: Result Comment: Nega tive for Flu A protein angiten. Infection due to Flu A cannot be ruled out. Flu A angiten in the sample may be below the detection limit of the test. Performed By: #### C BC #### [facility] [address] [place] [address] Dr. Sar[facility] Normal [facility] Comment on above: Result Comment: Nega tive for Flu B protein antigen. Infection due to Flu B cannot be ruled out. Flu B antigen in the sample may be below the detection limit of the test. Performed By: #### C BC #### [facility] [address] [place] [address] Dr. Saray Souza INFLUENZA A AG Negative Normal NEGATIVE SEE COMMENT [facility] Comment on above: Performed By: #### C BC #### [facility] [address] [place] [address] Dr. Saray Souza INFLUENZA B AG Negative Normal NEGATIVE SEE COMMENT [facility] Comment on above: Performed By: #### C BC #### [facility] [address] [place] [address] Dr. Saray Souza INTERNAL CONTROLS Within Normal Limits Normal Wi thin Normal Limits [facility] Comment on above: Performed By: #### C BC #### [facility] [address] [place] [address] Dr. Saray Souza STREPT SCREENon 10-20-2022 STREP SCREEN A Positive Abnormal NEGATIVE [facility] Comment on above: Performed By: #### C BC #### [facility] [address] [place] [address] Dr. Saray Souza XR SHOULDER RT INJon [...] by: ADRIANA MENDEZ Date: 2022-07-10 10:10 Normal [facility] XR [facility] RTon 07-10-20 22 XR [facility] RT EXAMINATION: XR [facility] RT HISTORY: Impingement syndrome of right shoulder [...] [facility] Radiology Study observation (narrative) [facility] Progress Noteson 03-18-2022 Clinical Trials Specialist Authentication Interface Message Text Referred by Retina [...] edema - F/u with PCP (Melodie [facility]hton [place]) regarding headaches-- will fax information to [phone] - Offered referral to neurology, patient prefers [...] her PCP. Francisco Ayers MD Normal [facility] Vital Signs Date Time Vital Sign Value Performing Clinician Facility 05-17-2025 14:18-0400 Body mass index (BMI) [Ratio] 47.1 kg/m2 Kelle BAE Work Phone: [facility] 05-17-2025 14:18-0400 Body weight 148.89 kg Kelle BAE Work Phone: [facility] 05-17-2025 14:18-0400 Diastolic blood pressure 96 mm[Hg] Kelle BAE Work Phone: [facility] 05-17-2025 14:18-0400 Systolic blood pressure 130 mm[Hg] Kelle BAE Work Phone: [facility] 2025 15:04-0400 Body mass index (BMI) [Ratio] 47.06 kg/m2 Graham Dante DO Work Phone: [facility] 2025 15:04-0400 Body weight 148.78 kg Graham Dante DO Work Phone: [facility] 2025 15:04-0400 Diastolic blood pressure 86 mm[Hg] Graham Dante DO Work Phone: [facility] 2025 15:04-0400 Systolic blood pressure 132 mm[Hg] Graham Dante DO Work Phone: [facility] 04-27-2025 13:06-0400 Body mass index (BMI) [Ratio] 46.85 kg/m2 Kelle BAE Work Phone: [facility] 04-27-2025 13:06-0400 Body weight 148.1 kg Kelle Mosley PA Work Phone: [facility] 04-27-2025 13:06-0400 Diastolic blood pressure 90 mm[Hg] Kelle Panola PA Work Phone: [facility] 04-27-2025 13:06-0400 Systolic blood pressure 124 mm[Hg] Kelle Melany PA Work Phone: [facility] 04-12-2025 14:56-0400 Body mass index (BMI) [Ratio] 46.96 kg/m2 Graham Dante DO Work Phone: [facility] 04-12-2025 14:56-0400 Body weight 148.44 kg Graham Dante DO Work Phone: [facility] 04-12-2025 14:56-0400 Diastolic blood pressure 82 mm[Hg] Graham Dante DO Work Phone: [facility] 04-12-2025 14:56-0400 Systolic blood pressure 130 mm[Hg] Graham Dante DO Work Phone: [facility] 03-29-2025 15:44-0400 Body mass index (BMI) [Ratio] 45.99 kg/m2 Kelle Melany PA Work Phone: [facility] 03-29-2025 15:44-0400 Body weight 145.38 kg Kelle Melany PA Work Phone: [facility] 03-29-2025 15:44-0400 Diastolic blood pressure 84 mm[Hg] Kelle Melany PA Work Phone: [facility] 03-29-2025 15:44-0400 Systolic blood pressure 120 mm[Hg] Kelle Panola PA Work Phone: [facility] 03-15-2025 15:24-0400 Body mass index (BMI) [Ratio] 46.2 kg/m2 Graham Dante DO Work Phone: [facility] 03-15-2025 15:24-0400 Body weight 146.06 kg Graham Dante DO Work Phone: [facility] 03-15-2025 15:24-0400 Diastolic blood pressure 74 mm[Hg] Graham Dante DO Work Phone: [facility] 03-15-2025 15:24-0400 Systolic blood pressure 110 mm[Hg] Graham Dante DO Work Phone: [facility] 01-04-2025 16:08-0500 Body mass index (BMI) [Ratio] 45.77 kg/m2 Kelle Melany PA Work Phone: [facility] 01-04-2025 16:08-0500 Body weight 144.7 kg Kelle Melany PA Work Phone: [facility] 01-04-2025 16:08-0500 Diastolic blood pressure 78 mm[Hg] Kelle Panola PA Work Phone: [facility] 01-04-2025 16:08-0500 Systolic blood pressure 120 mm[Hg] Kelle Melany PA Work Phone: [facility] 12-27-2024 09:53-0500 Body mass index (BMI) [Ratio] 45.69 kg/m2 Kelle Panola PA Work Phone: [facility] 12-27-2024 09:53-0500 Body weight 144.43 kg Kelle Melany PA Work Phone: [facility] 12-27-2024 09:53-0500 Diastolic blood pressure 78 mm[Hg] Kelle Panola PA Work Phone: [facility] 12-27-2024 09:53-0500 Systolic blood pressure 130 mm[Hg] Kelle Melany PA Work Phone: [facility] 12-05-2024 15:49-0500 Body mass index (BMI) [Ratio] 45.92 kg/m2 Graham Dante DO Work Phone: [facility] 12-05-2024 15:49-0500 Body weight 145.15 kg Graham Dante DO Work Phone: [facility] 12-05-2024 15:49-0500 Diastolic blood pressure 70 mm[Hg] Graham Dante DO Work Phone: [facility] 12-05-2024 15:49-0500 Systolic blood pressure 120 mm[Hg] Graham Dante DO Work Phone: [facility] 12-02-2024 19:42-0500 Diastolic blood pressure 80 mm[Hg] [facility]stevez [facility] 12-02-2024 19:42-0500 Systolic blood pressure 122 mm[Hg] Nic Estevez MD Work Phone: [facility] [employer] 12-02-2024 19:40-0500 Body temperature 99.39 [degF] Nic [facility]stevez MD [facility] 12-02-2024 19:38-0500 Heart rate 105 /min Nic Estevez MD Work Phone: [facility] [employer] 12-02-2024 19:38-0500 Respiratory rate 18 /min Nic Estevez MD Work Phone: [facility] [employer] 12-02-2024 19:38-0500 SaO2% (BldA) [Mass fraction] 99 % Nic Estevez MD Work Phone: [facility] [employer] 11-03-2024 13:25-0500 Body mass index (BMI) [Ratio] 46.4 kg/m2 Nom Nurse [facility] 11-03-2024 13:25-0500 Body weight 146.69 kg Nom Nurse [facility] 08-29-2024 10:53-0400 Body mass index (BMI) [Ratio] 45.89 kg/m2 Kelle BAE Work Phone: [facility] 08-29-2024 10:53-0400 Body weight 145.06 kg Kelle BAE Work Phone: [facility] 08-29-2024 10:53-0400 Diastolic blood pressure 70 mm[Hg] Kelle BAE Work Phone: [facility] 08-29-2024 10:53-0400 Systolic blood pressure 120 mm[Hg] Kelle Melany PA Work Phone: [facility] 07-26-2024 08:36-0400 Body height 177.8 cm Kelle Melany PA Work Phone: [facility] 07-26-2024 08:36-0400 Body mass index (BMI) [Ratio] 46.06 kg/m2 Kelle Melany PA Work Phone: [facility] 07-26-2024 08:36-0400 Body weight 145.6 kg Kelle Melany PA Work Phone: [facility] 07-26-2024 08:36-0400 Diastolic blood pressure 84 mm[Hg] Kelle Melany PA Work Phone: [facility] 07-26-2024 08:36-0400 Systolic blood pressure 130 mm[Hg] Kelle Melany PA Work Phone: [facility] 2024 09:04-0400 Blood Pressure Location JANNETH SMITH [facility] 2024 09:04-0400 Diastolic blood pressure 82 mm[Hg] JANNETH EMILIANA [facility] 2024 09:04-0400 Heart rate 74 /min JANNETH EMILIANA [facility] 2024 09:04-0400 Respiratory rate 16 /min JANNETH EMILIANA [facility] 2024 09:04-0400 Systolic blood pressure 125 mm[Hg] JANNETH EMILIANA [facility] 03-08-2024 14:09-0400 Blood Pressure Location Yonis MIRANDA [facility] 03-08-2024 14:09-0400 Diastolic blood pressure 84 mm[Hg] Yonis NILL [facility] 03-08-2024 14:09-0400 Heart rate 76 /min Yonis NILL [facility] 03-08-2024 14:09-0400 Respiratory rate 16 /min Yonis NILL [facility] 03-08-2024 14:09-0400 Systolic blood pressure 118 mm[Hg] Yonis NILL [facility] 01-19-2024 09:34-0500 Blood Pressure Location JANNETH MADRIGALRY [facility] 01-19-2024 09:34-0500 Diastolic blood pressure 84 mm[Hg] JANNETH EMILIANA [facility] 01-19-2024 09:34-0500 Heart rate 80 /min JANNETH EMILIANA [facility] 01-19-2024 09:34-0500 Respiratory rate 16 /min JANNETH EMILIANA [facility] 01-19-2024 09:34-0500 Systolic blood pressure 132 mm[Hg] JANNETH EMILIANA [facility] 12-02-2023 08:40-0500 Body height 180.34 cm Taniya Mary Grace Other [employer] Other 12-02-2023 08:40-0500 Body mass index (BMI) [Ratio] 45.1 kg/m2 Taniya Mary Grace Other [employer] Other 12-02-2023 08:40-0500 Body temperature 97.5 [degF] Taniya Mary Grace Other [employer] Other 12-02-2023 08:40-0500 Body weight 146.69 kg Taniya Mary Grace Other [employer] Other 12-02-2023 08:40-0500 Diastolic blood pressure 83 mm[Hg] Taniya Mary Grace Other [employer] Other 12-02-2023 08:40-0500 Respiratory rate 18 /min Taniya Mary Grace Other [employer] Other 12-02-2023 08:40-0500 SaO2% (BldA) [Mass fraction] 98 % Taniya Mary Grace Other [employer] Other 12-02-2023 08:40-0500 Systolic blood pressure 136 mm[Hg] Taniya Mary Grace Other [employer] Other 11-19-2021 15:30-0500 Body height 180.34 cm Nandini Tonilaya Other [employer] Other 11-19-2021 15:30-0500 Body mass index (BMI) [Ratio] 41.56 kg/m2 Nandini Pantoja Other [employer] Other 11-19-2021 15:30-0500 Body weight 135.17 kg Nandini Pantoja Other [employer] Other 11-19-2021 15:30-0500 Diastolic blood pressure 76 mm[Hg] Nandini Pantoja Other [employer] Other 11-19-2021 15:30-0500 Systolic blood pressure 128 mm[Hg] Nandini [place] Other [employer] Other Encounters Encounter Date Encounter Type Care [...] Comment on above: Third trimester preg mat ([facility]); 37 weeks gestation of ([facility]); Polyhydramnios affecting in third trimester ([facility]); H/O herpes zoster virus; induced hypertension, antepartum [...] Comment on above: Third trimester preg mat ([facility]); 36 weeks gestation of ([facility]) Start: 2025 End: 2025 ambulatory GRAHAM DANTE [...] 15 minutes Graham Dante DO Work Phone: [facility] Comment on above: Third trimester preg mat; 32 weeks gestation of ; size inconsistent with dates Start: 04-12-2025 End: 04-12-2025 ambulatory GRAHAM DANTE Not Available Start: 04-12-2025 End: 04-12-2025 Bamboo flowsheet Graham Dante DO Work Phone: [facility] Start: 04-12-2025 End: 04-12-2025 Bamboo flowsheet Graham Dante DO Work Phone: [facility] Start: 03-29-2025 End: 03-29-2025 ambulatory KELLE MOSLEY Not Available Start: 03-29-2025 End: 03-29-2025 Office outpatient visit 15 minutes Kelle BAE Work Phone: [facility] Comment on above: Herpes zoster with c omplication (Primary Dx); 30 weeks gestation of ; Third trimester Start: 03-29-2025 End: 03-29-2025 Bamboo flowsheet Kelle BAE Work Phone: [facility] Start: 03-29-2025 End: 03-29-2025 Bamboo flowsheet Kelle BAE Work Phone: [facility] Start: 03-15-2025 End: 03-15-2025 ambulatory GRAHAM DANTE Not Available Start: 03-15-2025 End: 03-15-2025 Office outpatient visit 15 minutes Graham Dante DO Work Phone: [facility] Comment on above: Third trimester preg mat; 28 weeks gestation of ; H/O herpes zoster virus Start: 03-15-2025 End: 03-15-2025 Bamboo flowsheet Graham Dante DO Work Phone: [facility] Start: 03-15-2025 End: [...] Patient encounter procedure Kelle BAE Work Phone: [facility] Healthcare Start: 12-27-2024 End: 12-27-2024 Periodic preventive med est patient 18-39 yrs Kelle BAE Work Phone: [facility] Comment on above: 17 weeks gestation o f ; Second trimester ; Screening, , for anatomic survey; Exposure to STD; Vaginal discharge; Well woman exam with routine gynecological exam; Sinus congestion Start: 12-27-2024 End: 12-27-2024 ambulatory KELLE MOSLEY Not Available Start: 12-23-2024 End: 12-23-2024 Clinisync Result Encounter Graham Dante DO Work Phone: [facility] External Department Unsolicited Start: 12-23-2024 End: 12-23-2024 Clinisync Result Encounter Graham Dante DO Work Phone: [facility] External Department Unsolicited Start: 12-05-2024 End: 12-05-2024 Office outpatient visit 15 minutes Graham Dante DO Work Phone: [facility] Comment on above: 14 weeks gestation o f ; Second trimester ; Herpes zoster without complication Start: 12-05-2024 End: 12-05-2024 ambulatory GRAHAM DANTE Not Available Start: 12-05-2024 End: 12-05-2024 Bamboo flowsheet Graham Dante DO Work Phone: [facility] Start: 12-05-2024 End: 12-05-2024 Bamboo flowsheet Graham Dante DO Work Phone: [facility] Start: 12-02-2024 End: 12-02-2024 Emergency department patient visit [facility]ste[facility] [place] [facility] Comment on above: Abdominal cramping, bilateral lower quadrant (Primary Dx) Start: 11-25-2024 End: 11-25-2024 ambulatory JANNETH SMITH Facility:[facility] Start: 11-25-2024 End: 11-25-2024 Patient encounter procedure JANNETH SMITH [facility] Start: 11-03-2024 End: 11-03-2024 Office outpatient visit 5 minutes [facility] Dante Nurse [facility] Comment on above: GA: 9w3d Start: 11-03-2024 End: 11-03-2024 ambulatory KELLE MOSLEY Not Available Start: 10-27-2024 End: 10-27-2024 ambulatory JANNETH Mary Lou SMITH Facility:[facility] Start: 10-27-2024 End: 10-27-2024 Patient encounter procedure JANNETH SMITH [facility] Start: 09-28-2024 End: 09-28-2024 Clinisync Result [...] procedure JANNETH SMITH [facility] Start: 04-27-2024 End: 04-27-2024 ambulatory MD Melodie Ashton Work Phone: [facility] Work Phone: Start: 04-27-2024 End: 04-27-2024 Departed Referred MD Melodie Ashton Work Phone: [facility] Start: 04-27-2024 End: 04-27-2024 ambulatory Yonis R NILL Facility:[id number] Start: 03-08-2024 End: 03-08-2024 ambulatory Yonis R NILL Facility: [facility] Start: 03-08-2024 End: 03-08-2024 Patient encounter procedure Yonis R NILL General Surgery [facility] [place] Start: 02-09-2024 End: 02-09-2024 ambulatory Dieter REMY Facility[facility] Start: 02-09-2024 End: 02-09-2024 Patient encounter procedure Dieter REMY [facility] Start: 01-19-2024 End: 01-19-2024 ambulatory JANNETH SMITH Facility:[facility] Start: 01-19-2024 End: 01-19-2024 Lab Drop off JANNETH SMITH [facility] Start: 01-19-2024 End: 01-19-2024 ambulatory JANNETH SMITH Facility:[facility] Start: 01-19-2024 End: 01-19-2024 Patient encounter procedure JANNETH Barreto EMILIANA [facility] Start: 12-31-2023 ambulatory Yonis MIRANDA Facility:[facility] Start: 12-17-2023 End: 12-17-2023 ambulatory Taniya Mary Grace Other [facility] Other Start: 12-17-2023 Office outpatient vi sit 15 minutes Taniya Mary Grace [facility] Start: 12-07-2023 End: 12-07-2023 ambulatory Taniya Mary Grace [facility] Other Start: 12-07-2023 Telephone encounter Taniya Mary Grace [facility] Start: 12-02-2023 End: 12-02-2023 ambulatory Taniya Mary Grace Other [facility] Other Start: 12-02-2023 Office outpatient ne w 30 minutes Taniya Mary Grace [facility] Start: 04-17-2023 End: 04-17-2023 ambulatory SALMA DIAB . Facility:[facility] Start: 04-06-2023 End: 04-07-[address] MELODIE ASHTON . Facility:[facility] Start: 04-04-2023 Encounter for genera l adult medical examination without abnormal findings DR MELODIE ASHTON . 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 Graham Dante DO Work Phone: [...] 2) Shingles (RZV) Vaccine (1 of 2[facility] Start: 07-09-2028 Screening for malign ant neoplasm of cervix [facility] Start: 12-27-2027 Screening for malign ant neoplasm of cervix Pap Smear [facility] Start: 07-24-2025 Influenza vaccination Influenz a Vaccine (Season Ended) [facility] Start: 05-24-2025 End: 05-24-2025 Patient encounter procedure 05/24/2025 2:00 PM EDT Routine [facility] [address] [place] [address] Graham Howell, DO [address] [place] [address] [facility] Start: 05-17-2025 End: 05-17-2026 Alanine aminotransferase [Enzymatic activity/volume] in Serum or Plasma ALT Lab Routine induced hypertension, antepartum ([facility]) Expected: 05/17/2025 (Approximate), Expires: 05/17/2026 [facility] Comment on above: Expected: 05/17/2025 (Approximate), Expires: 05/17/2026 Start: 05-17-2025 End: 05-17-2026 Aspartate aminotransferase [Enzymatic activity/volume] in Serum or Plasma AST Lab Routine induced hypertension, antepartum ([facility]) Expected: 05/17/2025 (Approximate), Expires: 05/17/2026 [facility] Comment on above: Expected: 05/17/2025 (Approximate), Expires: 05/17/2026 Start: 05-17-2025 End: 05-17-2026 CBC W Auto Differential panel - Blood CBC and differential Lab Routine induced hypertension, antepartum ([facility]) Expected: 05/17/2025 (Approximate), Expires: 05/17/2026 [facility] Comment on above: Expected: 05/17/2025 (Approximate), Expires: 05/17/2026 Start: 05-17-2025 End: 05-17-2026 Creatinine [Mass/volume] in Serum or Plasma Creatinine Lab Routine induced hypertension, antepartum ([facility]) Expected: 05/17/2025 (Approximate), Expires: 05/17/2026 [facility] Work Phone: Comment on above: Expected: 05/17/2025 (Approximate), Expires: 05/17/2026 Start: 05-17-2025 End: 05-17-2026 Lactate dehydrogenase [Enzymatic activity/volume] in Serum or Plasma by Lactate to pyruvate reaction Lactate dehydrogenase Lab Routine induced hypertension, antepartum ([facility]) Expected: 05/17/2025, Expires: 05/17/2026 [facility] Comment on above: Expected: 05/17/2025 , Expires: 05/17/2026 Start: 05-17-2025 End: 05-17-2026 Protein, urine, 24 hour Protein, urine, 24 hour Lab Routine induced hypertension, antepartum ([facility]) Expected: 05/17/2025 (Approximate), Expires: 05/17/2026 [facility] Comment on above: Expected: 05/17/2025 (Approximate), Expires: 05/17/2026 Start: 05-17-2025 End: 05-17-2026 Pt and ptt Pt and ptt Lab Routine induced hypertension, antepartum ([facility]) Expected: 05/17/2025, Expires: 05/17/2026 [facility] Comment on above: Expected: 05/17/2025 , Expires: 05/17/2026 Start: 05-17-2025 End: 05-17-2026 Urate [Mass/volume] in Serum or Plasma Uric acid Lab Routine induced hypertension, antepartum ([facility]) Expected: 05/17/2025 (Approximate), Expires: 05/17/2026 [facility] Comment on above: Expected: 05/17/2025 (Approximate), Expires: 05/17/2026 Start: 05-17-2025 End: 05-17-2026 Urea nitrogen [Mass/volume] in Serum or Plasma BUN Lab Routine induced hypertension, antepartum ([facility]) Expected: 05/17/2025, Expires: 05/17/2026 [facility] Comment on above: Expected: 05/17/2025 , Expires: 05/17/2026 Start: 05-17-2025 End: 05-17-2025 Patient encounter procedure [facility] Comment on above: Arrived Start: 2025 End: 2025 Patient encounter procedure [facility] Comment on above: Arrived Start: 2025 End: 2026 CULTURE, GROUP B STREP WITH SUSCEPTIBLITY CULTURE, GROUP B STREP WITH SUSCEPTIBLITY Lab Routine Third trimester ([facility]) Expected: 2025, Expires: 2026 [facility] Work Phone: Comment on [...] PM EDT Routine [facility] [address] [place] [phone] Kelle Mosley PA [address] [place] [address] [facility] Start: 03-08-2025 End: 03-08-2025 Patient encounter procedure 03/08/2025 3:30 PM EDT Routine [facility] [address] [place] [phone] Kelle Mosley PA [address] [place], [place] [phone] [facility] Start: 02-06-2025 End: 02-06-2025 Patient encounter procedure 02/06/2025 3:10 PM EDT Routine [facility] [address] [place] [phone] Graham Howell DO [address] [place] [address] [facility] Start: 01-23-2025 End: 01-23-2025 Professional / ancillary services management 01/23/2025 11:00 AM EST Ancillary Procedure [facility] [address] [place] [address] [facility] [...] AM EST Routine N[facility] [address] [place] [phone] Kelle Mosley, PA [address] [place] [address] Arrived [facility] Comment on above: Arrived Start: 12-05-2024 End: 12-05-2024 Patient encounter procedure [facility] Comment on above: Arrived Start: 11-28-2024 End: 11-28-2024 Patient encounter procedure 11/28/2024 9:30 AM EST Office Visit [facility] [address] [place] [phone] Kelle Mosley, PA [address] [place], [place] [id number] [facility] Start: 11-03-2024 End: 11-03-2025 [...] PM EST Initial [facility] [address] [place] [phone] [facility] Start: 11-03-2024 End: 11-03-2024 Professional / ancillary services management 11/03/2024 12:30 PM EST Ancillary Procedure [facility] [address] [place] [phone] [facility] Start: 08-29-2024 End: 08-29-2024 Patient encounter procedure 08/29/2024 10:50 AM EDT Office Visit [facility] [address] [place] [phone] Kelle Mosley PA [address] [place] [address] Arrived [facility] Comment on above: Arrived Start: 07-26-2024 End: 07-26-2024 Patient encounter procedure 07/26/2024 8:30 AM EDT Office Visit [facility] [address] [place] [phone] Kelle Mosley, PA [address] [place] [address] Arrived [facility] Comment on above: Arrived Start: 07-24-2024 COVID-19 Vaccine (3 - 2023-24 season) COVID-19 Vaccine ( season) [facility] Start: 07-24-2024 Influenza vaccination Influenza Vacc ine (#1) [facility] Start: 06-23-2024 Influenza vaccination Flu vaccine (# 1) [facility] Start: 2023 Screening for malign ant neoplasm of cervix [facility] Start: 12-20-2021 Screening for malign ant neoplasm of cervix Pap smear [facility] Start: 2014 Screening for malign ant neoplasm of cervix [facility] Start: 2012 DTaP/Tdap/Td vaccine (1 - Tdap) DTaP/Tdap/Td vaccine (1 - Tdap) [facility] Start: 2012 Hepatitis B vaccine (1 of 3 - 19+ 3-dose series) Hepatitis B vaccine (1 of 3 - 19+ 3-dose series) [facility] Start: 2011 [facility] Start: 2011 Tetanus + diphtheria + acellular pertussis vaccine (product) Tdap Booster [facility] Start: 2008 HIV screening HIV Test [facility] Start: 2006 Varicella vaccine (1 of 2 - 13+ 2-dose series) Varicella vaccine (1 of 2 - 13+ 2-dose series) [facility] Start: 2005 Depression Screen Depression Screen [facility] Start: 1998 COVID-19 Vaccine (1) COVID-19 Vaccin e (1) [facility] Bacteria identified in Urine by Culture Urine culture Microbiology Routine Missed menses Ordered: 11/03/2024 [facility] Comment on above: Ordered: 11/03/2024 CBC W Auto Different ial panel - Blood CBC and differential Lab Routine Missed menses , unspecified gestational age Ordered: 11/03/2024 [facility] Comment on above: Ordered: 11/03/2024 CHLAMYDIA TRACHOMATI S (GENITO/STI) CHLAMYDIA TRACHOMATIS (GENITO/STI) Lab Routine Exposure to STD Ordered: 12/27/2024 [facility] Comment on above: Ordered: 12/27/2024 Cytology Cervical or vaginal smear or scraping study Pap Smear Pathology and Cytology Routine Well woman exam with routine gynecological exam Ordered: 12/27/2024 [facility] Comment on above: Ordered: 12/27/2024 EKG 12 Lead EKG 12 Lead ECG STAT 12/02/2024 8:[address] [facility] Hemoglobin A1c/Hemoglobin.total in Blood Hemoglobin A1c Lab Routine Missed menses , unspecified gestational age Ordered: 11/03/2024 [facility] Comment on above: Ordered: 11/03/2024 Hepatitis B virus hawkins rface Ag [Presence] in Serum or Plasma by Immunoassay Hepatitis B surface antigen Lab Routine Missed menses , unspecified gestational age Ordered: 11/03/2024 [facility] Comment on above: Ordered: 11/03/2024 Hepatitis C virus Ab [Presence] in Serum or Plasma by Immunoassay Hepatitis C antibody Lab Routine Missed menses , unspecified gestational age Ordered: 11/03/2024 [facility] Comment on above: Ordered: 11/03/2024 HIV-1/HIV-2 antigen/antibody combination immunoassay HIV-1 and HIV-2 antibodies Lab Routine Missed menses , unspecified gestational age Ordered: 11/03/2024 [facility] Comment on above: Ordered: 11/03/2024 Human papilloma viru s DNA [Presence] in Unspecified specimen by Probe with amplification HPV DNA probe, amplified Microbiology Routine Well woman exam with routine gynecological exam Ordered: 12/27/2024 [facility] Comment on above: Ordered: 12/27/2024 Neisseria gonorrhoea e DNA [Presence] in Unspecified specimen by DAYDAY with probe detection Neisseria gonorrhea DNA probe, direct Lab Routine Exposure to STD Ordered: 12/27/2024 [facility] Comment on above: Ordered: 12/27/2024 Reagin Ab [Presence] in Serum by RPR RPR Lab Routine Missed menses , unspecified gestational age Ordered: 11/03/2024 [facility] Comment on above: Ordered: 11/03/2024 Rubella antibody, IgG Rubella an tibody, IgG Lab Routine Missed menses , unspecified gestational age Ordered: 11/03/2024 [facility] Comment on above: Ordered: 11/03/2024 SURESWAB(R) ADVANCED VAGINITIS PLUS, TMA SURESWAB(R) ADVANCED VAGINITIS PLUS, TMA Pathology and Cytology Routine Vaginal discharge Ordered: 12/27/2024 [facility] Comment on above: Ordered: 12/27/2024 Immunizations Immunization Date Immunization Notes Care Provider Marino lopez 10-28-2022 influenza virus vaccine, unspecified formulation JANNETHLUBNA SMITH [facility] 04-15-2021 SARS-CoV-2 (COVID-19 ) mRNA-1273 vaccine JANNETH SMITH [facility] [place] 03-18-2021 SARS-CoV-2 (COVID-19 ) mRNA-1273 vaccine JANNETH SMITH [facility] [place] 03-21-2014 influenza virus vaccine, unspecified formulation Estella Guerrero MD Work Phone: [facility] Payers Date Payer Category Payer Medicaid [employer] [place] [employer] [id number] 2017-Present [address] [place] [phone] [id number] 2017 Medicaid (Managed Care) [employer] [id number] 2017 Unknown [facility] [employer] [id number] 2017-Present [id number] 1993 Unknown [id number] 2.16.840.1.704434.3.579.2. 732 1993 Unknown [id number] 2.16.840.1.541960.3.579.2. 593 1993 Unknown [id number] 2.16.840.1.134470.3.579.2. 593 1993 Unknown [id number] 2.16.840.1.344306.3.579.2. 593 1993 Unknown [id number] 2.16.840.1.211406.3.579.2. 593 1993 Unknown [id number] 2.16.840.1.823998.3.579.2. 593 1993 Unknown [id number] 2.16.840.1.935663.3.579.2. 593 1993 Unknown [id number] 2.16840.1.687088.3.579.2. 593 1993 Unknown [id number] 2.16.840.1.732436.3.579.2. 593 1993 Unknown [id number] 2.16.840.1.375846.3.579.2. 593 1993 Unknown [id number] 2.16.840.1.288037.3.579.2. 593 1993 Unknown [id number] 2.16840.1.011473.3.579.2. 593 1993 Unknown [id number] 2.16.840.1.272031.3.579.2. 593 1993 Unknown [id number] 2.16.840.1.278320.3.579.2. 1259 1993 Unknown [id number] 2.16.840.1.848135.3.579.2. 1259 1993 Unknown [id number] 2.16.840.1.612833.3.579.2. 1259 1993 Unknown [id number] 2.16.840.1.577903.3.579.2. 173 1993 Unknown [id number] 2.16840.1.924584.3.579.2. 1993 Unknown [id number] 2.16.840.1.420923.3.579.2. 1993 Unknown [id number] 2.840.1.499479.3.579.2. 1993 Unknown [id number] 2.16840.1.746921.3.579.2. 1993 Unknown [id number] 2.840.1.071491.3.579.2. 1993 Unknown [id number] 2.840.1.450036.3.579.2. 1993 Unknown [id number] 2.840.1.640080.3.579.2. 1993 Unknown [id number] 2.840.1.698692.3.579.2. 1993 Unknown [id number] 2.840.1.096697.3.579.2. 1993 Unknown [id number] 2.840.1.911963.3.579.2. 1258 1993 Unknown [id number] 2.840.1.186031.3.579.2. 1258 1993 Unknown [id number] 2.840.1.151223.3.579.2. 1258 1993 Unknown [id number] 2.16840.1.636660.3.579.2. 1258 1993 Unknown [id number] 2.16840.1.116448.3.579.2. 1258 1993 Unknown [id number] 2.840.1.797551.3.579.2. 1258 1993 Unknown [id number] 2.16840.1.419205.3.579.2. 9 1993 Unknown [id number] 2.16.840.1.587633.3.579.2. 9 1993 Unknown [id number] 2.16.840.1.885052.3.579.2. 9 1993 Unknown [id number] 2.16.840.1.474687.3.579.2. 1258 1993 Unknown [id number] 2.16.840.1.266712.3.579.2. 1258 1993 Unknown [id number] 2.16.840.1.522767.3.579.2. 1258 1993 Unknown [id number] 2.16.840.1.401380.3.579.2. 1258 1993 Unknown [id number] 2.16.840.1.771023.3.579.2. 1259 1959 Medicaid [id number] Social History Date Type Detail Facility Tobacco smoking status [facility] Tobacco smoking consumption unknown [facility] [employer] Other Start: 1993 Sex Assigned At Not on file [facility] Start: 05-23-2024 End: 05-05-2025 Sex Assigned At [facility] Start: 05-03-2023 End: 01-19-2024 Tobacco smoking status Never smoked tobacco (finding) [facility] Tobacco smoking status Never [facility] Start: 1995 Sex Assigned At Female F [facility] Start: 07-26-2024 End: 2025 Alcoholic beverage intake Current drinker of alcohol (finding) [facility] Start: 05-23-2024 End: 05-05-2025 History of Social function [facility] Work Phone: Start: 05-03-2023 Alcohol Comment 1-2 drinks les s than monthly in the past year, Caffeine intake: 2-3 cups per day [facility] Start: 09-12-2024 [facility] Start: 12-20-2018 Tobacco use and exposure Smokeless tobacco non-user [facility] Start: 02-14-2019 Alcoholic beverage intake Current [facility]-drinker of [facility] (finding[facility] Functional Status Date Assessment Result Facility 2024 Functional Status N/A [facility] 03-08-2024 Functional Status N/A [facility] Functional Status N/A [facility] Clinical Notes 03-18-2022 to 05-17-2025 KATHIA [...] abdominal pain 05/27/2023 Scoliosis 05/27/2023 Vaginal delivery ([facility]) 09/06/2014 Encounter for weight management 06/27/2024 [...] ASSESSMENT & PLAN ICD-10-CM 1. Third trimester ([facility]) Z34.93 2. 37 weeks gestation of ([facility]) Z3A.37 3. Polyhydramnios affecting in third trimester ([facility]) O40.3XX0 4. H/O herpes zoster virus Z86.19 5. induced hypertension, antepartum ([facility]) O13.9 Creatinine Protein, urine, 24 hour Pt and ptt CBC and differential Uric acid Lactate dehydrogenase ALT AST BUN Creatinine Protein, urine, 24 hour Pt and ptt CBC and differential Uric acid Lactate dehydrogenase ALT AST BUN 6. -induced hypertension in third trimester ([facility]) O13.3 Return OB: Patient presents today for [...] of: KATHIA Ledezma documented in this encounter [facility] 2025 History of Present illness Narrative Reason [...] abdominal pain 05/27/2023 Scoliosis 05/27/2023 Vaginal delivery ([facility]) 09/06/2014 Encounter for weight management 06/27/2024 Resolved [...] nursing note reviewed. Exam conducted with a call circuit worker present. Vitals: Estimated body mass index is 47.06 kg/m as calculated from the following: Height as of 07/26/24: 5' 10 . Weight as of this encounter: 328 lb. BP: 132/86 Patient's last menstrual period was 08/29/2024. ASSESSMENT & PLAN ICD-10-CM 1. Third trimester ([facility]) Z34.93 POCT urinalysis dipstick manually resulted CULTURE, GROUP B STREP WITH SUSCEPTIBLITY CULTURE, GROUP B STREP WITH SUSCEPTIBLITY 2. 36 weeks gestation of ([facility]) Z3A.36 Return OB: Patient presents today for [...] Graham Howell DO documented in this encounter [facility] 04-27-2025 History of Present illness Narrative Reason [...] 05/27/2023 Irritable bowel syndrome 05/27/2023 Mood disorder ([facility]) 05/27/2023 Right upper quadrant abdominal pain 05/27/2023 Scoliosis 05/27/2023 Vaginal delivery 09/06/2014 Encounter for weight management 06/27/2024 Resolved Ambulatory Problems Diagnosis Date Noted No Resolved Ambulatory Problems Past Medical History: Diagnosis Date Acne Cardiac murmur Depression ([facility]) Encounter for IUD insertion 01/02/2021 Gastritis [...] of: KATHIA Ledezma documented in this encounter [facility] 04-12-2025 History of Present illness Narrative Reason [...] 05/27/2023 Irritable bowel syndrome 05/27/2023 Mood disorder ([facility]) 05/27/2023 Right upper quadrant abdominal pain 05/27/2023 Scoliosis 05/27/2023 Vaginal delivery 09/06/2014 Encounter for weight management 06/27/2024 Resolved Ambulatory Problems Diagnosis Date Noted No Resolved Ambulatory Problems Past Medical History: Diagnosis Date Acne Cardiac murmur Depression ([facility]) Encounter for IUD insertion 01/02/2021 Gastritis IBS (irritable bowel syndrome) Plantar fasciitis, bilateral HISTORY PAST MEDICAL HISTORY SOCIAL HISTORY Past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
[2025-05-22] MEDS: 0.9 % SODIUM CHLORIDE 1,000 ML 125 ML IV (05:30)
[2025-05-22 05:39] LABS: Hematocrit 35.2 % (36.0-48.0); Hemoglobin 12.0 g/dL (12.0-16.0); Mean Corpuscular HGB Conc 34.1 g/dL (29.9-35.2); Mean Corpuscular Hemoglobin 29.6 pg (26.7-34.0); Mean Corpuscular Volume 86.9 fL (81.0-99.0); Platelet Count 251 10^3/uL (150-450); Red Blood Count 4.05 10^6/uL (4.20-5.40); White Blood Count 11.0 10^3/uL (4.0-11.0)
[2025-05-22] MEDS: OXYTOCIN/0.9 % SODIUM CHLORIDE 10 UNITS/500 ML PLAST..BAG 6 UNIT IV (05:50)
[2025-05-22 05:51] LABS: Cannabinoid Screen Urine NEGATIVE (NEGATIVE); Methamphetamines Screen Urine NEGATIVE (NEGATIVE); Tricyclic Antidepressant Urine NEGATIVE (NEGATIVE)
[2025-05-22] MEDS: CEFAZOLIN SODIUM/DEXTROSE,ISO 2 GM/50 ML PIGGYBACK IV (06:35)
[2025-05-22] MEDS: CEFAZOLIN SODIUM/DEXTROSE,ISO 1 GM/50 ML PREMIX IV ×2 (11:47→18:01)
[2025-05-22] MEDS: ROPIVACAINE HCL/PF 400 MG/200 ML PREMIX 6 MG EPIDURAL (12:15)
[2025-05-22] MEDS: OXYTOCIN/0.9 % SODIUM CHLORIDE 10 UNITS/500 ML PLAST..BAG 60 UNIT IV (18:18)
[2025-05-22] MEDS: OXYTOCIN/0.9 % SODIUM CHLORIDE 20 UNITS/1,000 ML PLAST..BAG 125 UNIT IV (19:50)
--- NOTE | 2025-05-22 19:57 | PM.OBPRCVD ---
Procedure Intrapartal events: None Induction method: per pitocin protocol Delivery augmentation: rupture of membranes and pitocin Delivery monitor: external FHT and external uterine Route of delivery: Episiotomy Description: none L&D Laceration Description: periurethral - 1st degree Delivery repair: Vicryl Estimated blood loss (mL): 250 Anesthesia type: Epidural Disposition: floor Infant Delivery date: 05/22/25 Gender: male presentation: vertex Placental delivery description: Spontaneous cord description: 3 Vessels
[2025-05-22] MEDS: ACETAMINOPHEN 325 MG TABLET 650 MG PO (22:09)
[2025-05-22] MEDS: BENZOCAINE/MENTHOL 85 GRAM SPRAY BOTTLE 1 APPLIC TOPICAL (22:09)
[2025-05-22] MEDS: IBUPROFEN 600 MG TABLET PO (22:09)
[2025-05-22] MEDS: GLYCERIN/WITCH HAZEL PADS 1 PAD TOPICAL (22:10)
[2025-05-23 03:01] VITALS: BP 143/84; PULSE 76
[2025-05-23] MEDS: ACETAMINOPHEN 325 MG TABLET 650 MG PO ×2 (06:03→13:19)
[2025-05-23 06:24] LABS: Hematocrit 34.5 % (36.0-48.0); Hemoglobin 11.6 g/dL (12.0-16.0); Immature Granulocytes Abs Auto 0.08 10^3/uL (0.00-0.03); Immature Granulocytes Pct Auto 0.5 % (0.0-0.5); Lymphocytes Absolute Auto 2.0 10^3/uL (1.2-3.8); Mean Corpuscular HGB Conc 33.6 g/dL (29.9-35.2); Mean Corpuscular Hemoglobin 29.4 pg (26.7-34.0); Mean Corpuscular Volume 87.3 fL (81.0-99.0); Platelet Count 243 10^3/uL (150-450); Red Blood Count 3.95 10^6/uL (4.20-5.40); White Blood Count 17.0 10^3/uL (4.0-11.0)
[2025-05-23 08:00] VITALS: TEMP 36.7
[2025-05-23] MEDS: IBUPROFEN 600 MG TABLET PO (08:11)
[2025-05-23] MEDS: DOCUSATE SODIUM 100 MG CAPSULE PO (08:11)
[2025-05-23 08:12] VITALS: BP 138/92; PULSE 70
--- NOTE | 2025-05-23 12:14 | P.OBPN_ITS ---
OB - PN: Subj Subjective Patient comments: no complaints [place] status: doing well feeding status: exclusively Exam Constitutional Vital Signs, click to edit/add: Last Vital Signs Temp 98.0 F 05/23/25 08:00 Pulse 70 05/23/25 08:12 Resp 16 05/23/25 08:00 BP 138/92 H 05/23/25 08:12 O2 Del Method Room Air 05/23/25 08:00 Documenting provider has reviewed patient's vital signs: yes Common normals: no apparent distress Exam limitations: altered mental status General appearance: cooperative Orientation/consciousness: Yes awake, Yes oriented to person, Yes oriented to place and Yes oriented to time HENMT Common normals: normocephalic Eye Common normals: EOMs intact bilaterally General eye: normal appearance of both eyes Alignment: alignment normal Eyelid: eyelids normal Neck & C-Spine Common normals: full ROM Lymph Lymphatic: no lymphadenopathy noted Chest Common normals: inspection of chest normal Respiratory Common normals: normal respiratory effort Effort & inspection: able to speak in complete sentences Auscultation: clear to auscultation bilaterally Cardio Common normals: regular rate and regular rhythm Rate: regular rate Rhythm: regular rhythm GI Common normals: Normal to inspection, nondistended, normoactive bowel sounds present Inspection: normal to inspection Auscultation: normoactive bowel sounds Palpation: soft Back & Pelvis Common normals: no CVA tenderness Extremity Common normals: normal to inspection and full ROM Neuro Common normals: oriented x3 Sensorium/orientation: awake, alert, oriented to person, oriented to place and oriented to time Psych Common normals: mental status grossly normal, thought process normal, cooperative, affect normal, speech normal, activity/motor behavior normal, denies hallucinations, denies homicidal ideation and denies suicidal ideation Appearance: grossly normal Attitude: calm Results Labs Labs: Short CBC 05/23/25 Range/Units 06:08 WBC 17.0 H (4.0-11.0) 10^3/uL Hgb 11.6 L (12.0-16.0) g/dL Hct 34.5 L (36.0-48.0) % Plt Count 243 (150-450) 10^3/uL OB - PN: A/P Plan - Vaginal Delivery day: 1 Plan: discharge home Time Spent with Patient Time: Total time spent is greater than 50% in coordination of care (as documented) at patient's floor/unit and/or counseling patient: Total time spent with greater than 50% in coordination of care (as documented) at patient's floor/unit and/or counseling patient: less than 15 minutes
--- NOTE | 2025-05-23 13:35 | W.PC.ACHO ---
Registration Status: ADM IN Primary Language: Preferred Language: Thai Report given to Lindsey VALENZUELA at 1300. Care relinquished at this time. Active Medications Generic Name Dose Route Start Last Admin Trade Name Stanislav PRN Reason Stop Dose Admin Acetaminophen 650 mg 05/22/25 19:58 05/23/25 13:19 Acetaminophen 325 Mg Tablet PO 650 mg Q6H PRN Administration Mild Pain Al Hydroxide/Mg Hydroxide 2,400 mg 05/22/25 19:58 Magnesium Hydroxide 2,400 Mg/10 Ml Oral.Susp PO Q6H PRN Dyspepsia Benzocaine/Menthol 1 applic 05/22/25 19:58 05/22/25 22:09 Benzocaine/Menthol 85 Gram [place] Bottle TOPICAL 1 applic Q2H PRN Administration Pain Carboprost Tromethamine 250 mcg 05/22/25 05:01 Carboprost Tromethamine 250 Mcg/Ml 1 Ml Vial IM 05/23/25 20:00 Q15M PRN Bleeding Diphtheria/Pertussis/Tetanus Vacc 0.5 ml 05/24/25 09:00 Adacel Diph,Pertuss(Acell),Tet Vac/Pf 0.5 Ml Adult Syringe IM 05/24/25 09:01 .ONCE ONE Docusate Sodium 100 mg 05/23/25 09:00 05/23/25 08:11 Docusate Sodium 100 Mg Capsule PO 100 mg BID MACY Administration Tranexamic Acid 1,000 mg/ 110 mls @ 440 mls/hr 05/22/25 05:01 Sodium Chloride IV 05/23/25 20:00 ONCE PRN Uterine Bleeding Sodium Chloride 1,000 mls @ 125 mls/hr 05/22/25 05:30 05/22/25 12:00 Sodium Chloride 0.9% 1,000 Ml IV Infused .Q8H MACY Infusion Ibuprofen 600 mg 05/22/25 19:58 05/23/25 08:11 Ibuprofen 600 Mg Tablet PO 600 mg Q6H PRN Administration Moderate Pain Measles/Mumps/Rubella Vaccine Live 0.5 ml 05/24/25 09:00 Measles,Mumps,Rubella Vacc/Pf 0.5 Ml Vial SQ 05/24/25 09:01 .ONCE ONE Methylergonovine Maleate 0.2 mg 05/22/25 05:01 Methylergonovine Maleate 0.2 Mg/Ml Ampule IM 05/23/25 20:00 ONCE PRN Uterine Contractility/Contract Methylergonovine Maleate 0.2 mg 05/22/25 05:01 Methylergonovine Maleate 0.2 Mg Tablet PO 05/23/25 20:00 Q4H PRN Uterine Contractility/Contract Misoprostol 600 mcg 05/22/25 05:01 Misoprostol 100 Mcg Tablet PO 05/23/25 20:00 ONCE PRN Uterine Bleeding Misoprostol 800 mcg 05/22/25 05:01 Misoprostol 100 Mcg Tablet SL 05/23/25 20:00 ONCE PRN Uterine Bleeding Misoprostol 1,000 mcg 05/22/25 05:01 Misoprostol 100 Mcg Tablet NM 05/23/25 20:00 ONCE PRN Uterine Bleeding Ondansetron HCl 4 mg 05/22/25 05:01 Ondansetron Pf 4 Mg/2 Ml Vial IV Q6H PRN Nausea And Vomiting Ondansetron HCl 4 mg 05/22/25 05:01 Ondansetron 4 Mg Rapdis Tablet SL Q6H PRN Nausea And Vomiting Oxytocin 10 unit 05/22/25 05:01 Oxytocin 10 Unit/Ml Vial IM 05/23/25 20:00 ONCE PRN Bleeding Senna 17.2 mg 05/22/25 20:00 Sennosides 8.6 Mg Tablet PO QHS PRN Constipation Simethicone 80 mg 05/22/25 19:58 Simethicone 80 Mg Tab.Chew PO QID PRN Abdominal Distention Temazepam 15 mg 05/22/25 19:58 Temazepam 15 Mg Capsule PO QHS PRN Sleep Witch Lashonda/Glycerin 1 pad 05/22/25 19:58 05/22/25 22:10 Glycerin/Witch Lashonda Pads TOPICAL 1 pad Q2H PRN Administration Pain Diet Category Date Time Status Regular Consistency Diet Diet 05/22/25 19:58 Active Respiratory Oxygen Delivery Method Room Air Oxygen Delivery Method Room Air Oxygen Delivery Method Room Air Cardiology Heart Sounds Strong Bowels Bowel Pattern No Bowel Movement Renal Bladder Pattern Continent Catheter Date Urinary Catheter Removed 05/22/25 Date Urinary Catheter Removed 05/22/25 Date Urinary Catheter Removed 05/22/25 Date Urinary Catheter Removed 05/22/25 Date Urinary Catheter Removed 05/22/25 Date Urinary Catheter Removed 05/22/25 Date Urinary Catheter Removed 05/22/25
[2025-05-23 17:00] VITALS: TEMP 36.6
[2025-05-23 17:03] VITALS: BP 137/85; PULSE 64
== END 2025-05-23 21:35 | disposition home or self-care (01) | DRG 560 ==
PROVIDERS: Admitting Provider Obstetrics & Gynecology; PCP Family Medicine; Visit Provider Obstetrics & Gynecology
DX: O13.4 Gestational [pregnancy-induced] hypertension without significant proteinuria, complicating childbirth (principal); O70.0 First degree perineal laceration during delivery; O99.214 Obesity complicating childbirth; E66.01 Morbid (severe) obesity due to excess calories; Z3A.38 38 weeks gestation of pregnancy; Z37.0 Single live birth; Z87.440 Personal history of urinary (tract) infections; Z90.721 Acquired absence of ovaries, unilateral
CPT/HCPCS: 36415; 51702; 59050; 59410; 76818; 80307; 84156; 85025; 85027; 86850; 86900; 86901; J0690; J2795

== ENCOUNTER 2025-05-25 07:51 | Outpatient (OUT) | payer OTHER, SELFPAY ==
--- OUTSIDE RECORDS SUMMARY | 2025-05-25 07:58 | XMS_ITS | CCD ---
Author Organization [facility] Care Team Providers Care [employer] Lead Name Role Phone Unavailable Primary Care Provider [...] Unavailable HOY ., DR SEWELL Admkaty Unavailable UEHLING, DR NANDINI Stafford Consulting Unavailable HOY ., [...] Physician MD Shashi Ashton Primary Care Provider [phone] MD Yonis Miranda Attending Provider Shashi Ashton Primary Care Unavailable NilYonis menard Attending Unavailable Ruth, Yonis Mckenzie Admitting Unavailable DANTE, GRAHAM Attending Unavailable DANTE, GRAHAM Attending Unavailable MELANY, KELLE Attending Unavailable Shashi Ashton MD Primary Care Provider [phone] Shashi Ashton MD Primary Care Provider [phone] SHASHI ASHTON Primary Care Unavailable NIC ESTEVEZ Attending Unavailable Yonis MIRANDA Attending Unavailable JANNETH SMITH Attending Unavailable LUISJANNETH GUSMAN Attending Unavailable LUISJANNETH GUSMAN Attending Unavailable Shashi Ashton Referring Unavailable LUISJANNETH GUSMAN Attending Unavailable REMY Dieter R Admitting Unavailable REMY, Dieter R Attending Unavailable REMY, Dieter R Referring Unavailable LUIS, JANNETH E Admitting Unavailable LUISJANNETH GUSMAN Attending Unavailable NILL, Yonis R Attending Unavailable NILL, Yonis Mckenzie Attending Unavailable Shashi Ashton Referring Unavailable Shashi Ashton MD Primary Care Provider [phone] Shashi Ashton MD Primary Care Provider [phone] MELANY, KELLE Attending Unavailable MELANY, KELLE [...] Date of Onset Reaction(s) Facility (1 source) [facility] [place]; Translations: [[facility] [place]] Propensity to adverse reactions (disorder) 0 [facility] Repository (3 sources) [facility] Drug allergy LEHR Other (20 sources) [facility] Drug Allergy 4 [facility] (1 source) No Known Medication Allergies; Translations: [No Known Medication Allergies] Propensity to adverse reactions (disorder) [facility] Repository Medications Current Medications Medication [...] # 2 cap(s), Refills(s) 0, Pharmacy: [id number], 180, cm, 01/19/24 9:37:00 EST, [...] UTI prevention, 30 tab(s), Refill(s) 3, [facility] #[id number], 180, cm, 05/10/24 9:08:00 EDT, Height/Length Dosing, 150, kg, 05/10/24 9:08:00 EDT, Weight Dosing Start Date: 07/26/24 Status: Ordered Start: 01-19-2024 Bactrim 400 mg -80 mg Tab 1 tab(s), Oral, Daily UTI prevention, 30 tab(s), Refill(s) 3, [facility]pharm[facility] #[id number], 180, cm, 01/19/24 9:37:00 EST, [...] mg by mouth Daily 12/05/2024 Discontinued levonorgestrel 0.071347 mg/hr intrauterine system (8 sources) Progestin, Progestin-containi [...] Chronic Other aftercare (1 source) Other terminal carman (current) drug therapy; Translations: [OTH EXPORT MANAGER CURRENT DRUG THERAPY] Onset: 3 Episodic [...] 2.0 % [facility] Eosinophils/100 WBC (Bld) 0.1 % Low 0.9 - 7.0 % [facility] Erythrocyte distribution width (RBC) [Ratio] 12.6 % 11.0 - 15.0 % [facility] Hematocrit (Bld) [Volume fraction] 34.5 % Low 36.0 - 48.0 % [facility] Hemoglobin (Bld) [Mass/Vol] 11.6 g/dL Low 12.0 - 16.0 g/dL [facility] IMMATURE GRANULOCYTES ABS AUTO 0.08 High [facility] Immature granulocytes/100 WBC (Bld) 0.5 % 0.0 - 0.5 % [facility] Interpretation and review of laboratory results Abnormal [facility] re LYMPHOCYTES ABSOLUTE AUTO 2 [facility] Healthcare Lymphocytes/100 WBC (Bld) 11.6 % Low 20.5 - 60.0 % [facility] MCH (RBC) [Entitic mass] 29.4 pg 26.7 - 34.0 pg [facility] MCHC (RBC) [Mass/Vol] 33.6 g/dL 29.9 - 35.2 g/dL [facility] Healthcare MCV (RBC) [Entitic vol] 87.3 fL 81.0 - 99.0 fL [facility] Healthcare MONOCYTES ABSOLUTE AUTO 1.2 High [facility] Healthcare Monocytes/100 WBC (Bld) 6.8 % 1.7 - 12.0 % [facility] NEUTROPHILS ABSOLUTE AUTO 13.8 High [facility] Healthcare Neutrophils/100 WBC (Bld) 80.9 % High 43.0 - 75.0 % [facility] Healthcare Platelet mean volume (Bld) [Entitic vol] 9.8 fL 9.5 - 13.5 fL [facility] TBH EO # 0 [facility] TBH PLT 243 [facility] TB[facility] RBC 3.95 Low [facility] TBH WBC 17 High [facility] HMHP CBC WITH PLATELET NO DI FFERENTIALon 05-22-2025 Erythrocyte distribution width (RBC) [Ratio] 12.8 % 11.0 - 15.0 % [facility] Hematocrit (Bld) [Volume fraction] 35.2 % Low 36.0 - 48.0 % [facility] Hemoglobin (Bld) [Mass/Vol] 12 g/dL 12.0 - 16.0 g/dL [facility] Interpretation and review of laboratory results Abnormal [facility] re MCH (RBC) [Entitic mass] 29.6 pg 26.7 - 34.0 pg [facility] MCHC (RBC) [Mass/Vol] 34.1 g/dL 29.9 - 35.2 g/dL [facility] MCV (RBC) [Entitic vol] 86.9 fL 81.0 - 99.0 fL [facility] Platelet mean volume (Bld) [Entitic vol] 9.7 fL 9.5 - 13.5 fL [facility] TB PLT 251 [facility] TB RBC 4.05 Low [facility] e TB WBC 11 [facility] e TB TOTAL PROTEIN 24 HOUR UR INEon 05-19-2025 Interpretation and review of laboratory results Abnormal [facility] re Protein (U) [Mass/Vol] 20.4 mg/dL High NINF - 11.9 mg/dL [facility] TOTAL PROTEIN 24 HOUR URINE 285.6 High [facility] TOTAL VOLUME 24 HOUR URINE 1400 mL/24hr [facility] ALL CBC WITH AUTO DIFFon BASOPHILS ABSOLUTE AUTO 0 [facility] Basophils/100 WBC (Bld) 0.1 % Low 0.2 - 2.0 % [facility] Eosinophils/100 WBC (Bld) 0.8 % Low 0.9 - 7.0 % [facility] Erythrocyte distribution width (RBC) [Ratio] 12.8 % 11.0 - 15.0 % [facility] Hematocrit (Bld) [Volume fraction] 35.2 % Low 36.0 - 48.0 % [facility] Hemoglobin (Bld) [Mass/Vol] 11.8 g/dL Low 12.0 - 16.0 g/dL [facility] IMMATURE GRANULOCYTES ABS AUTO 0.05 High [facility] Immature granulocytes/100 WBC (Bld) 0.5 % 0.0 - 0.5 % [facility] Interpretation and review of laboratory results Abnormal [facility] LYMPHOCYTES ABSOLUTE AUTO 1.5 [facility] [...] OB BPP W NON-STRESS on 05-17-2025 [place] [address] Ultrasound Report Signed Patient: ROSALIE RODRÍGUEZ V MR#: [id number] : 1995 Acct:[id number] Age/Sex: 30 / F ADM Date: Loc: [facility] [address]: Graham Howell D.O. Ordering Physician: Graham Howell D.O. Date of Service: 05/17/25 Procedure(s): US OB BPP w non-stress Accession Number(s): [id number] cc: Graham Howell D.O.; Shashi Ashton M.D. The [address] [address] Patient Name: ROSALIE RODRÍGUEZ MRN: [facility]:[id number] date: 1995 Sex: F Assigned Patient Location: [facility] Current Patient Location: [facility] Accession/Order Number: [id number] Exam Date: 05/17/2025 19:09 Report Date: 05/17/2025 19:13 At the request of: GRAHAM HOWELL DO Procedure: US OB BPP w non-stress Ultrasound biophysical profile INDICATION: GB COMPARISON: None FINDINGS/IMPRESSION: Single live intrauterine gestation with heart 132 bpm. BRISEYDA 23.28 cm Score / Impression dictated by: Weston Gonzalez M.D. 05/17/2025 7:13 PM Dictation Location: [place] [address] Electronically authenticated by: [id number] Y Date: 05/17/2025 19:13 Dictated By: Weston Gonzalez M.D. Signed By: 05/17/251914 DD/ 12 TD/TT: Patient Account Specialist: [facility] Radiology, Radiologist, MD - 05/17/2025 [place] [address] Ultrasound Report Signed Patient: ROSALIE RODRÍGUEZ V MR#: [id number] : 1995 Acct:[id number] Age/Sex: 30 / F ADM Date: Loc: [place] [address]- Attending Dr: Graham Howell D.O. Ordering Physician: Graham Howell D.O. Date of Service: 05/17/25 Procedure(s): US OB BPP w non-stress Accession Number(s): [id number] cc: Graham Howell D.O.; Shashi Ashton M.D. The [place] [id number] Patient Name: ROSALIE RODRÍGUEZ MRN: [facility]:[id number] date: 1995 Sex: F Assigned Patient Location: [facility] Current Patient Location: [facility] Accession/Order Number: [id number] Exam Date: 05/17/2025 19:09 Report Date: 05/17/2025 19:13 At the request of: GRAHAM DANTE DO Procedure: US OB BPP w non-stress Ultrasound biophysical profile INDICATION: GB COMPARISON: None FINDINGS/IMPRESSION: Single live intrauterine gestation with heart 132 bpm. BRISEYDA 23.28 cm Score 8/8 Impression dictated by: Weston Gonzalez M.D. 05/17/2025 7:13 PM Dictation Location: [place] [address] Electronically authenticated by: [id number] Y Date: 05/17/2025 19:13 Dictated By: Weston Gonzalez M.D. Signed By: 05/17/251914 DD/ 12 TD/TT: Patient Account Specialist: [facility] Radiology Study observation (narrative) [facility] US OB BPP W NON-STRESS Ordered By: Radiologist Radiology on 05-17-2025 [facility] [employer] Work Phone: US OB BPP W NON-STRESS on 05-15-2025 [place] [address] Ultrasound Report Signed Patient: ORSALIE RODRÍGUEZ V MR#: [id number] : 1995 Acct:[id number] Age/Sex: 30 / F ADM Date: 05/15/25 Loc: US Attending Dr: Graham Howell D.O. Ordering Physician: Graham Howell D.O. Date of Service: 05/15/25 Procedure(s): US OB BPP w non-stress Accession Number(s): [id number] cc: Graham Howell D.O.; Shashi Ashton M.D. [place] [id number] Patient Name: ROSALIE RODRÍGUEZ MRN: [facility]:[id number] date: 1995 Sex: F Assigned Patient Location: [facility] Current Patient Location: Accession/Order Number: [id number] Exam Date: 05/15/2025 18:34 Report Date: 05/15/2025 [...] Dominguez M.D. 05/15/2025 6:40 PM Dictation Location: [place] [address] Electronically authenticated by: [id number] Y Date: 05/15/2025 18:40 Dictated By: Neli Dominguez M.D. Signed By: 05/15/251842 DD/ 39 TD/TT: Patient Account Specialist: [facility] Radiology, Radiologist, MD - 05/15/2025 [place] [address] Ultrasound Report Signed Patient: ROSALIE RODRÍGUEZ V MR#: [id number] : 1995 Acct:[id number] Age/Sex: 30 / F ADM Date: 05/15/25 Loc: US Attending Dr: Graham Howell D.O. Ordering Physician: Graham Howell D.O. Date of Service: 05/15/25 Procedure(s): US OB BPP w non-stress Accession Number(s): [id number] cc: Graham Howell D.O.; Sahshi Ashton M.D. The [address] [id number] Patient Name: ROSALIE RODRÍGUEZ MRN: [facility]:[id number] date: 1995 Sex: F Assigned Patient Location: [facility] Current Patient Location: Accession/Order Number: [id number] Exam Date: 05/15/2025 18:34 Report Date: 05/15/2025 [...] Dominguez M.D. 05/15/2025 6:40 PM Dictation Location: [place] [address] Electronically authenticated by: [id number] Y Date: 05/15/2025 18:40 Dictated By: Neli Dominguez M.D. Signed By: 05/15/251842 DD/ 39 TD/TT: Patient Account Specialist: [facility] Radiology Study observation (narrative) [facility] US OB BPP W NON-STRESS Ordered By: Radiologist Radiology on 05-15-2025 [facility] [employer] Work Phone: Urinalysis macro (dipstick) panel (U)on 2025 Bilirubin, UA Positive Negative - 4(70) +++ mg/dL [facility] Comment on above: small Blood, UA Negative Negative - 50 Issac/mcL [facility] [employer] Clarity, UA Cloudy [facility] [employer] re Color, UA Jolie [facility] Glucose, UA Negative Negative - 2000(110) ++++ mg/dL [facility] Interpretation and review of laboratory results Abnormal [facility] re Ketones, UA Positive Negative - 160(16) ++++ mg/dL [facility] Comment on above: 15 Leukocytes, UA Positive Negative - 500+++ Christo/mcL [facility] Comment on above: small Nitrite, UA Negative Negative - Positive [facility] pH, UA 5.5 5 - 9 [facility] Protein, UA Positive Negative - 1999(20) ++++ mg/dL [facility] Comment on above: 30 Spec Grav, UA 1.03 1 - 1.03 [facility] Urobilinogen, UA 0.2 0.2 - 12 mg/dL [facility] US OB BPP W NON-STRESS on 05-08-2025 [place] [address] Ultrasound Report Signed Patient: ROSALIE RODRÍGUEZ V MR#: [id number] : 1995 Acct:[id number] Age/Sex: 29 / F ADM Date: 05/08/25 Loc: US Attending Dr: Graham Howell D.O. Ordering Physician: Graham Howell D.O. Date of Service: 05/08/25 Procedure(s): US OB BPP w non-stress Accession Number(s): [id number] cc: Graham Howell D.O.; Shashi Ashton M.D. The [address] [address] Patient Name: ROSALIE RODRÍGUEZ MRN: [facility]:[id number] date: 1995 Sex: F Assigned Patient Location: [facility] Current Patient Location: Accession/Order Number: [id number] Exam Date: 05/08/2025 21:48 Report Date: 05/08/2025 [...] Graham M.D. 05/08/2025 9:49 PM Dictation Location: [place] [address] Electronically authenticated by: [id number] Y Date: 05/08/2025 21:49 Dictated By: Daniel Graham D.O. Signed By: 05/08/252151 DD/ 48 TD/TT: Patient Account Specialist: [facility] Radiology, Radiologist, MD - 05/08/2025 [place] [address] Ultrasound Report Signed Patient: ROSALIE RODRÍGUEZ V MR#: [id number] : 1995 Acct:[id number] Age/Sex: 29 / F ADM Date: 05/08/25 Loc: US Attending Dr: Graham Howell D.O. Ordering Physician: Graham Howell D.O. Date of Service: 05/08/25 Procedure(s): US OB BPP w non-stress Accession Number(s): [id number] cc: Graham Howell D.O.; Shashi Ashton M.D. The [address] [id number] Patient Name: ROSALIE RODRÍGUEZ MRN: [facility]:[id number] date: 1995 Sex: F Assigned Patient Location: [facility] Current Patient Location: Accession/Order Number: [id number] Exam Date: 05/08/2025 21:48 Report Date: 05/08/2025 [...] Graham M.D. 05/08/2025 9:49 PM Dictation Location: [place] [address] Electronically authenticated by: [id number] Y Date: 05/08/2025 21:49 Dictated By: Daniel Graham D.O. Signed By: 05/08/252151 DD/ 48 TD/TT: Patient Account Specialist: [facility] Radiology Study observation (narrative) [facility] US OB BPP W NON-STRESS Ordered By: Radiologist Radiology on 05-08-2025 [employer] Work Phone: US OB FOLLOW UP TRANSABDOMIN [...] II, MD, PHD at 28-Apr-2025 08:26:54 AM [facility] Normal Not Available Comment on above: Order Comment: US OB SCAN FOR GROWTH Estimated Date of Delivery: 06/05/25 Gestational Age as of 04/12/2025: 32w2d Urinalysis macro (dipstick) panel (U)on 04-27-2025 Bilirubin, UA Positive Negative - (70) +++ mg/dL [facility] Comment on above: small Blood, UA Negative Negative - 50 Issac/mcL [facility] Healthcare Clarity, UA Clear [facility] Color, UA Yellow [facility] Glucose, UA Negative Negative - 1999(110) ++++ mg/dL [facility] Interpretation and review of laboratory results Abnormal [facility] Ketones, UA Positive Negative - 160(16) ++++ mg/dL [facility] Comment on above: Trace Leukocytes, UA Trace Negative - 500+++ Christo/mcL [facility] Nitrite, UA Negative Negative - Positive [facility] pH, UA 6 5 - 9 [facility] Protein, UA Positive Negative - 1999(20) ++++ mg/dL [facility] Comment on above: 30mg/dL Spec Grav, UA 1.025 1 - 1.03 [facility] Urobilinogen, UA 0.2 0.2 - 12 mg/dL [facility] UA (CLEAN/CATCH) INSURANCE APPRAISER/LORENZO RO IF IND.on 04-25-2025 BILIRUBIN URINE Negative NEGATIVE [facility] thcare BLOOD URINE Negative NEGATIVE [facility] Clarity (U) CLEAR CLEAR [facility] Color (U) LT. YELLOW YELLOW [facility] GLUCOSE URINE UA Negative NEGATIVE mg/dL [facility] Interpretation and review of laboratory results Abnormal [facility] Ketones Ql (U) Negative NEGATIVE mg/dL [facility] Leukocyte esterase Test strip Ql (U) MODERATE Abnormal NEGATIVE [facility] NITRITE URINE Negative NEGATIVE [facility] Health care pH (U) 7.5 [pH] 5.0 - 9.0 [facility] Protein (U) [Mass/Vol] 30 mg/dL Abnormal NEG/TRACE [facility] SPECIFIC GRAVITY URINE 1.020 1.005 - 1.025 [facility] URINE MICROSCOPIC INDICATED YES [facility] UROBILINOGEN URINE 1.0 EU/dL 0.2 - 1.0 EU/dL [facility] Urinalysis macro (dipstick) panel (U)on 04-12-2025 Bilirubin, UA Negative Negative - 4(70) +++ mg/dL [facility] Blood, UA Negative Negative - 50 Issac/mcL [facility] Healthcare Clarity, UA Clear [facility] Color, UA Yellow [facility] Glucose, UA Negative Negative - 1999(110) ++++ mg/dL [facility] Interpretation and review of laboratory results Abnormal [facility] Ketones, UA Positive Negative - 160(16) ++++ mg/dL [facility] Comment on above: Trace Leukocytes, UA Trace Negative - 500+++ Christo/mcL [facility] Nitrite, UA Negative Negative - Positive [facility] pH, UA 6 5 - 9 [facility] Protein, UA Positive Negative - 1999(20) ++++ mg/dL [facility] Comment on above: 30mg/dL Spec Grav, UA 1.01 1 - 1.03 [facility] Urobilinogen, UA 1.0 0.2 - 12 mg/dL [facility] Urinalysis macro (dipstick) panel (U)on 03-29-2025 Bilirubin, UA Positive Negative - 4(70) +++ mg/dL [facility] Comment on above: small Blood, UA Negative Negative - 50 Issac/mcL [facility] Clarity, UA Clear [facility] Color, UA Yellow [facility] Glucose, UA Negative Negative - 1999(110) ++++ mg/dL [facility] Interpretation and review of laboratory results Abnormal [facility] Ketones, UA Positive Negative - 160(16) ++++ mg/dL [facility] Comment on above: Trace Leukocytes, UA Trace Negative - 500+++ Christo/mcL [facility] Nitrite, UA Negative Negative - Positive [facility] pH, UA 6.5 5 - 9 [facility] Protein, UA Positive Negative - 1999(20) ++++ mg/dL [facility] Comment on above: 30mg/dL Spec Grav, UA 1.03 1 - 1.03 [facility] Urobilinogen, UA 0.2 0.2 - 12 mg/dL [facility] Urinalysis macro (dipstick) panel (U)on 03-15-2025 Bilirubin, UA Positive Negative - 4(70) +++ mg/dL [facility] Comment on above: small Blood, UA Negative Negative - 50 Issac/mcL [facility] Clarity, UA Clear [facility] re Color, UA Yellow [facility] Health[facility] Glucose, UA Negative Negative - 1999(110) ++++ mg/dL [facility] Interpretation and review of laboratory results Abnormal [facility] re Ketones, UA Positive Negative - 160(16) ++++ mg/dL [facility] Comment on above: 40mg/dL Leukocytes, UA Trace Negative - 500+++ Christo/mcL [facility] Nitrite, UA Negative Negative - Positive [facility] pH, UA 5.5 5 - 9 [facility] e Protein, UA Positive Negative - 1999(20) ++++ mg/dL [facility] Comment on above: 30mg/dL Spec Grav, UA 1.03 1 - 1.03 [facility] Urobilinogen, UA 0.2 0.2 - 12 mg/dL [facility] ALL CBC WITH AUTO DIFFon BASOPHILS ABSOLUTE AUTO 0 [facility] Basophils/100 WBC (Bld) 0.3 % 0.2 - 2.0 % [facility] Eosinophils/100 WBC (Bld) 0.7 % Low 0.9 - 7.0 % [facility] Erythrocyte distribution width (RBC) [Ratio] 12.6 % 11.0 - 15.0 % [facility] Hematocrit (Bld) [Volume fraction] 35.7 % Low 36.0 - 48.0 % [facility] e Hemoglobin (Bld) [Mass/Vol] 12.1 g/dL 12.0 - 16.0 g/dL [facility] IMMATURE GRANULOCYTES ABS AUTO 0.06 High [facility] Immature granulocytes/100 WBC (Bld) 0.6 % High 0.0 - 0.5 % [facility] Interpretation and review of laboratory results Abnormal [facility] re LYMPHOCYTES ABSOLUTE AUTO 1.2 [facility] Lymphocytes/100 WBC (Bld) 11.3 % Low 20.5 - 60.0 % [facility] MCH (RBC) [Entitic mass] 30.6 pg 26.7 - 34.0 pg [facility] MCHC (RBC) [Mass/Vol] 33.9 g/dL 29.9 - 35.2 g/dL [facility] MCV (RBC) [Entitic vol] 90.2 fL 81.0 - 99.0 fL [facility] MONOCYTES ABSOLUTE AUTO 0.6 [facility] Monocytes/100 WBC (Bld) 5.4 % 1.7 - 12.0 % [facility] NEUTROPHILS ABSOLUTE AUTO 8.5 High [facility] Neutrophils/100 WBC (Bld) 81.7 % High 43.0 - 75.0 % [facility] Platelet mean volume (Bld) [Entitic vol] 8.9 fL Low 9.5 - 13.5 fL [facility] TBH EO # 0.1 [facility] PLT 242 [facility] RBC 3.96 Low [facility] TB[facility] WBC 10.4 [facility] US OB 14+ WEEKS ANATOMY [...] II, MD, PHD at 24-Jan-2025 09:25:38 AM [facility] Normal Not Available Comment on above: Order Comment: US OB ANATOMY SINGLE W US OB CERVICAL LENGTH Estimated Date of Delivery: 06/05/25 Gestational Age as of 12/27/2024: 17w1d Urinalysis macro (dipstick) panel (U)on 01-04-2025 Bilirubin, UA Positive Negative - 4(70) +++ mg/dL [facility] Comment on above: small Blood, UA Negative Negative - 50 Issac/mcL [facility] Clarity, UA Clear [facility] [employer] re Color, UA Yellow [facility] [employer] Glucose, UA Negative Negative - 1999(110) ++++ mg/dL [facility] Interpretation and review of laboratory results Abnormal [facility] Ketones, UA Positive Negative - 160(16) ++++ mg/dL [facility] Comment on above: trace Leukocytes, UA Positive Negative - 500+++ Christo/mcL [facility] Comment on above: small Nitrite, UA Negative Negative - Positive [facility] pH, UA 5.5 5 - 9 [facility] [employer] Protein, UA Positive Negative - 2000(20) ++++ mg/dL [facility] Comment on above: 30mg/dL Spec Grav, UA 1.03 1 - 1.03 [facility] Urobilinogen, UA 0.2 0.2 - 12 mg/dL [facility] IGP,APTIMA HPV,AGE GDLNon AGE GDLN ACOG TESTING Note . [facility] Comment on above: TESTS RESULT FLAG UN ITS REF RANGE LAB Clinician Provided Cytology Information Source.............[employer] Other.............. No. of containers..01 ThinPrep Vial Age Selvin ALARCON Soraida... 28 FLAG LEGEND: L-Low Normal,H-High Normal,LL-Alert Low,HH-Alert High <-Panic Low,>-Panic High,A-Abnormal,AA-Critical Abnormal Performed at: 01 =G [facility] [place] [address] Haily Cook MD, HPV APTIMA Negative Negative [facility] Comment on above: This nucleic acid am plification test detects fourteen high- risk HPV types (16,18,31,33,35,39,45,51,52,56,58,59,66,68) without differentiation. Performed at: =G - [facility] [id number] Beer Maker: Haily Cook MD, Phone: [phone] Performed at: WB - [facility] [id number] Beer Maker: Haily Cook MD, Phone: [phone] IGP, APTIMA HPV, RFX 16/18,45 Note . [facility] Comment on above: TESTS RESULT FLAG UN ITS REF RANGE LAB DIAGNOSIS: 02 NEGATIVE FOR INTRAEPITHELIAL LESION OR MALIGNANCY. Specimen adequacy: 02 Satisfactory for evaluation. No endocervical component is identified. Performed by: 02 Janneth Guerrero, Night Nurse ([facility]) . 02 Note: Note 02 The Pap [...] <-Panic Low,>-Panic High,A-Abnormal,AA-Critical Abnormal Performed at: [address] [place] [address] Haily Cook MD, [facility] [employer] [facility] Urinalysis macro (dipstick) panel (U)on 12-27-2024 Bilirubin, UA Negative Negative - 4(70) +++ mg/dL [facility] Jinn Blood, UA Negative Negative - 50 Issac/mcL [facility] Clarity, UA Clear [facility] Color, UA Yellow [facility] Glucose, UA Negative Negative - 2000(110) ++++ mg/dL [facility] Interpretation and review of laboratory results Abnormal [facility] Ketones, UA Negative Negative - 160(16) ++++ mg/dL [facility] Leukocytes, UA Positive Negative - 500+++ Christo/mcL [facility] Comment on above: small Nitrite, UA Negative Negative - Positive [facility] pH, UA 6 5 - 9 [facility] Protein, UA Trace Negative - 1999(20) ++++ mg/dL [facility] Spec Grav, UA 1.03 1 - 1.03 [facility] Urobilinogen, UA 0.2 0.2 - 12 mg/dL [facility] Healthcare [facility] BOX TESTon 12-23-2024 BOX TEST SENT OUT [employer] [facility] BOX1 [facility] BOX2 12/23/24 [facility] [...] a no show a second time. Normal [facility] Urinalysis macro (dipstick) panel (U)on 12-05-2024 Bilirubin, UA Negative Negative - 4(70) +++ mg/dL [facility] Blood, UA Negative Negative - 50 Issac/mcL [facility] Clarity, UA Clear [facility] re Color, UA Yellow [facility] Glucose, UA Negative Negative - 1999(110) ++++ mg/dL [facility] Interpretation and review of laboratory results Abnormal [facility] Ketones, UA Negative Negative - 160(16) ++++ mg/dL [facility] Leukocytes, UA Positive Negative - 500+++ Christo/mcL [facility] Comment on above: small Nitrite, UA Negative Negative - Positive [facility] pH, UA 6.5 5 - 9 [facility] Protein, UA Trace Negative - 1999(20) ++++ mg/dL [facility] Spec Grav, UA 1.025 1 - 1.03 [facility] Urobilinogen, UA 0.2 0.2 - 12 mg/dL [facility] Basic Metabolic Panelon 11-23 Maryan Guidry - [facility] Comment on above: These results [...] Interpretation and review of laboratory results Abnormal [facility] Urea nitrogen/Creatinine [Mass ratio] 12 mg/mg - [facility] Basic Metabolic Profon 12-02 Anion gap [Moles/Vol] 11 mmol/L Normal - [facility] Comment on above: Performed By: #### B MP, LIVP, MG, CDP, LIP #### [facility] [address] [place] [address] [place] [address] Beer Maker: Nandini Acevedo MD BUN/CRE Ratio 12 Normal - [facility] Comment on above: Performed By: #### B MP, LIVP, MG, CDP, LIP #### [facility] [address] [place] [address] Beer Maker: Nandini Acevedo MD Calcium [Mass/Vol] 9.3 mg/dL Normal 8.6-10.4 [facility] Comment on above: Performed By: #### B MP, LIVP, MG, CDP, LIP #### [facility] [address] [place] [address] Beer Maker: Nandini Acevedo MD Chloride [Moles/Vol] 102 mmol/L Normal 98-107 [facility] Comment on above: Performed By: #### B MP, LIVP, MG, CDP, LIP #### [facility] [address] [place] [address] Beer Maker: Nandini Acevedo MD CO2 [Moles/Vol] 24 mmol/L Normal 20-31 [facility] Comment on above: Performed By: #### B MP, LIVP, MG, CDP, LIP #### [facility] [address] [place] [address] Beer Maker: Nandini Acevedo MD Creatinine [Mass/Vol] 0.5 mg/dL Normal 0.50-0.90 [facility] Comment on above: Performed By: #### B MP, LIVP, MG, CDP, LIP #### [address] [place] [address] Beer Maker: Nandini Acevedo MD GFR/1.73 sq M.predicted among non-blacks MDRD (S/P/Bld) [Vol rate/Area] mL/min/{1.73_m2} Normal >60 [facility] Comment on above: Result Comment: These [...] B MP, LIVP, MG, CDP, LIP #### [address] [place] [address] Beer Maker: Nandini Acevedo MD Glucose [Mass/Vol] 88 mg/dL Normal 74-99 [facility] Comment on above: Performed By: #### B MP, LIVP, MG, CDP, LIP #### [address] [place] [address] Beer Maker: Nandini Acevedo MD Potassium [Moles/Vol] 3.6 mmol/L Low 3.7-5.3 [facility] Comment on above: Performed By: #### B MP, LIVP, MG, CDP, LIP #### [facility] [address] [place] [address] [place] [address] Beer Maker: Nandini Acevedo MD Sodium [Moles/Vol] 137 mmol/L Normal 136-145 [facility] Comment on above: Performed By: #### B MP, LIVP, MG, CDP, LIP #### [facility] [address] [place] [address] [place] [address] Beer Maker: Nandini Acevedo MD Urea nitrogen [Mass/Vol] 6 mg/dL Normal 6-20 [facility] Comment on above: Performed By: #### B MP, LIVP, MG, CDP, LIP #### [address] [place] [address] Beer Maker: Nandini Acevedo MD CBC with Auto Differentialon 12-02-2024 Basophils (Bld) [#/Vol] 0.04 10*3/uL [facility] Basophils/100 WBC (Bld) 0 % 0 - 2 % [facility] Eosinophils (Bld) [#/Vol] 0.06 10*3/uL [facility] Eosinophils/100 WBC (Bld) 0 % Low 1 - 4 % [facility] Erythrocyte distribution width (RBC) [Ratio] 12.0 % 11.8 - 14.4 % [facility] Hematocrit (Bld) [Volume fraction] 38.6 % 36.3 - 47.1 % [facility] Hemoglobin (Bld) [Mass/Vol] 13.3 g/dL 11.9 - 15.1 g/dL [facility] Immature granulocytes (Bld) [#/Vol] 0.05 10*3/uL [facility] Immature granulocytes/100 WBC (Bld) 0 % 0 [facility] Interpretation and review of laboratory results Abnormal [facility] Lymphocytes/100 WBC (Bld) 9 % Low 24 - 43 % [facility] Lymphocytes/100 WBC (Bld) 1.26 % [facility] MCH (RBC) [Entitic mass] 30.6 pg 25.2 - 33.5 pg [facility] MCHC (RBC) [Mass/Vol] 34.5 g/dL 28.4 - 34.8 g/dL [facility] MCV (RBC) [Entitic vol] 88.7 fL 82.6 - 102.9 fL [facility] Monocytes/100 WBC (Bld) 6 % 3 - 12 % [facility] Monocytes/100 WBC (Bld) 0.88 % [facility] Neutrophils/100 WBC (Bld) 85 % High 36 - 65 % [facility] Nucleated RBC/100 WBC (Bld) [Ratio] 0.0 % 0.0 per 100 WBC [facility] Platelet mean volume (Bld) [Entitic vol] 9.2 fL 8.1 - 13.5 fL [facility] Platelets (Bld) [#/Vol] 267 10*3/uL [facility] RBC (Bld) [#/Vol] 4.35 10*6/uL 3.95 - 5.1 1 m/uL [facility] Segmented neutrophils/100 WBC (Bld) 12.17 % High [facility] WBC other (Bld) [#/Vol] 14.5 High [facility] CBC with Diffon 12-02-2024 Abs. Basophil 0.04 k/uL Normal 0.00-0.20 [facility] Comment on above: Performed By: #### B MP, LIVP, MG, CDP, LIP #### [facility] [address] [place] [address] Beer Maker: Nandini Acevedo MD Abs.Imm.Granulocyte 0.05 k/uL Normal 0.00-0.30 [facility] Comment on above: Performed By: #### B MP, LIVP, MG, CDP, LIP #### [facility] [address] [place] [address] Beer Maker: Nandini Acevedo MD Abs.Neutrophil (Seg) 12.17 k/uL High 1.50-8.10 [facility] Comment on above: Performed By: #### B MP, LIVP, MG, CDP, LIP #### [address] [place] [id number] Beer Maker: Nandini Acevedo MD Basophils/100 WBC (Bld) 0 % Normal 0-2 [facility] Comment on above: Performed By: #### B MP, LIVP, MG, CDP, LIP #### [address] [place], [facility]83 Beer Maker: Nandini Acevedo MD Eosinophils (Bld) [#/Vol] 0.06 10*3/uL Normal 0.00-0.44 [facility] Comment on above: Performed By: #### B MP, LIVP, MG, CDP, LIP #### [address] [place], [place] [address] Beer Maker: Nandini Acevedo MD Eosinophils/100 WBC (Bld) 0 % Low 1-4 [facility] Comment on above: Performed By: #### B MP, LIVP, MG, CDP, LIP #### [address] [place], [facility]83 Beer Maker: Nandini Acevedo MD Erythrocyte distribution width (RBC) [Ratio] 12.0 % Normal 11.8-14.4 [facility] Comment on above: Performed By: #### B MP, LIVP, MG, CDP, LIP #### [address] [place], [facility]83 Beer Maker: Nandini Acevedo MD Hematocrit (Bld) [Volume fraction] 38.6 % Normal 36.3-47.1 [facility] Comment on above: Performed By: #### B MP, LIVP, MG, CDP, LIP #### [address] [place], [facility]83 Beer Maker: Nandini Acevedo MD Hemoglobin (Bld) [Mass/Vol] 13.3 g/dL Normal 11.9-15.1 [facility] Comment on above: Performed By: #### B MP, LIVP, MG, CDP, LIP #### [address] [place] [address] Beer Maker: Nandini Acevedo MD Immature granulocytes/100 WBC (Bld) 0 % Normal 0 [facility] Comment on above: Performed By: #### B MP, LIVP, MG, CDP, LIP #### [address] [place] [address] Beer Maker: Nandini Acevedo MD Lymphocytes (Bld) [#/Vol] 1.26 10*3/uL Normal 1.10-3.70 [facility] Comment on above: Performed By: #### B MP, LIVP, MG, CDP, LIP #### [address] [place] [address] Beer Maker: Nandini Acevedo MD Lymphocytes/100 WBC (Bld) 9 % Low 24-43 [facility] Comment on above: Performed By: #### B MP, LIVP, MG, CDP, LIP #### [address] [place], [place] [phone] Beer Maker: Nandini Acevedo MD MCH (RBC) [Entitic mass] 30.6 pg Normal 25.2-33.5 [facility] Comment on above: Performed By: #### B MP, LIVP, MG, CDP, LIP #### [address] [place] [address] Beer Maker: Nandini Acevedo MD MCHC (RBC) [Mass/Vol] 34.5 g/dL Normal 28.4-34.8 [facility] Comment on above: Performed By: #### B MP, LIVP, MG, CDP, LIP #### [address] [place], [place] [phone] Beer Maker: Nandini Acevedo MD MCV (RBC) [Entitic vol] 88.7 fL Normal 82.6-102.9 [facility] Comment on above: Performed By: #### B MP, LIVP, MG, CDP, LIP #### [address] [place], [place] [phone] Beer Maker: Nandini Acevedo MD Monocytes (Bld) [#/Vol] 0.88 10*3/uL Normal 0.10-1.20 [facility] Comment on above: Performed By: #### B MP, LIVP, MG, CDP, LIP #### [address] [place], [facility]83 Beer Maker: Nandini Acevedo MD Monocytes/100 WBC (Bld) 6 % Normal 3-12 [facility] Comment on above: Performed By: #### B MP, LIVP, MG, CDP, LIP #### [address] [place], [facility]83 Beer Maker: Nandini Acevedo MD Neutrophil (Seg) 85 % High 36-65 [facility] Comment on above: Performed By: #### B MP, LIVP, MG, CDP, LIP #### [address] [place], [place] [phone] Beer Maker: Nandini Acevedo MD NRBC Automated 0.0 per 100 WBC Normal 0.0 [facility] Comment on above: Performed By: #### B MP, LIVP, MG, CDP, LIP #### [address] [place], [facility]83 Beer Maker: Nandini Acevedo MD Platelet mean volume (Bld) [Entitic vol] 9.2 fL Normal 8.1-13.5 [facility] Comment on above: Performed By: #### B MP, LIVP, MG, CDP, LIP #### [facility] [address] [place], [place] [phone] Beer Maker: Nandini Acevedo MD Platelets (Bld) [#/Vol] 267 10*3/uL Normal 138-453 [facility] Comment on above: Performed By: #### B MP, LIVP, MG, CDP, LIP #### [facility] [address] [place], [place] [phone] Beer Maker: Nandini Acevedo MD RBC (Bld) [#/Vol] 4.35 10*6/uL Normal 3.95-5.11 [facility] Comment on above: Performed By: #### B MP, LIVP, MG, CDP, LIP #### [facility] [address] [place], [place] [phone] Beer Maker: Nandini Acevedo MD WBC (Bld) [#/Vol] 14.5 10*3/uL High 3.5-11.3 [facility] Comment on above: Performed By: #### B MP, LIVP, MG, CDP, LIP #### [facility] [address] [place], [place] [phone] Beer Maker: Nandini Acevedo MD Hepatic Function Panelon Albumin/Globulin [Mass ratio] 1.4 {ratio} 1.0 - 2.5 [facility] ALP [Catalytic activity/Vol] 61 U/L 35 - 104 U/L [facility] Bilirubin.direct [Mass/Vol] mg/dL 0.00 - 0.30 mg/dL [facility] Bilirubin.indirect [Mass/Vol] Can not be calculated 0.0 - 1.0 mg/dL [facility] Lipaseon 12-02-2024 Lipase [Catalytic activity/Vol] 34 U/L Normal 13-60 [facility] Comment on above: Performed By: #### B MP, LIVP, MG, CDP, LIP #### [facility] [address] [place], [place] [phone] Beer Maker: Nandini Acevedo MD Liver Profileon 12-02-2024 Albumin [Mass/Vol] 3.9 g/dL Normal 3.5-5.2 [facility] Comment on above: Performed By: #### B MP, LIVP, MG, CDP, LIP #### [address] [place], [place] [address]683 Beer Maker: Nandini Acevedo MD Albumin/Glob Ratio 1.4 Normal 1.0-2.5 [facility] Comment on above: Performed By: #### B MP, LIVP, MG, CDP, LIP #### [address] [place], [place] [phone] Beer Maker: Nandini Acevedo MD Alkaline Phos 61 U/L Normal 35-104 [facility] Comment on above: Performed By: #### B MP, LIVP, MG, CDP, LIP #### [address] [place] [address] Beer Maker: Nandini Acevedo MD ALT [Catalytic activity/Vol] 14 U/L Normal 10-35 [facility] Comment on above: Performed By: #### B MP, LIVP, MG, CDP, LIP #### [address] [place], [place] [phone] Beer Maker: Nandini Acevedo MD AST [Catalytic activity/Vol] 14 U/L Normal 10-35 [facility] Comment on above: Performed By: #### B MP, LIVP, MG, CDP, LIP #### [address] [place], [place] 4416983 Beer Maker: Nandini Acevedo MD Bilirubin [Mass/Vol] mg/dL Normal 0.00-1.20 [facility] Comment on above: Performed By: #### B MP, LIVP, MG, CDP, LIP #### [address] [place], [place] [phone] Beer Maker: Nandini Acevedo MD Bilirubin, Indirect Can not be calculated Normal 0.0-1 .0 [facility] Comment on above: Performed By: #### B MP, LIVP, MG, CDP, LIP #### [facility] [address] [place] [address] Beer Maker: Nandini Acevedo MD Bilirubin.indirect [Mass/Vol] mg/dL Normal 0.00-0.30 [facility] Comment on above: Performed By: #### B MP, LIVP, MG, CDP, LIP #### [facility] [address] [place] [address] Beer Maker: Nandini Acevedo MD Protein [Mass/Vol] 6.7 g/dL Normal 6.6-8.7 [facility] Comment on above: Performed By: #### B MP, LIVP, MG, CDP, LIP #### [facility] [address] [place] [address] [place] [address] Beer Maker: Nandini Acevedo MD Magnesiumon 1 Magnesium [Mass/Vol] 1.7 mg/dL Normal 1.6-2.6 [facility] Comment on above: Performed By: #### B MP, LIVP, MG, CDP, LIP #### [address] [place] [address] Beer Maker: Nandini Acevedo MD Microscopic Urinalysison Amorphous sediment LM Ql (Urine sed) 2+ Abnormal None [facility] Epithelial cells LM.HPF (Urine sed) [#/Area] 0 TO 2 [facility] Interpretation and review of laboratory results Abnormal [facility] RBC LM.HPF (Urine sed) [#/Area] 0 TO 2 [facility] WBC LM.HPF (Urine sed) [#/Area] 2 TO 5 [facility] No Panel Informationon 12-02 [facility] US OB LESS THAN 14 WEEKS [...] seen given later gestation Embryo(<11wk) /Fetus(>=11wk): Single [place] Rump Length: 7.9 cm Rate of Cardiac [...] Keyur Benavides MD 12/02/24 Final result Normal [facility] Intrauterine with embryonic/ cardiac activity. Estimated gestational age by current ultrasound is 14 weeks 0 days. [facility] RIS [facility] EXAMINATION: FIRST TRIMESTER OBSTETRIC ULTRASOUND [...] seen given later gestation Embryo(<11wk) /Fetus(>=11wk): Single [place] Rump Length: 7.9 cm Rate of Cardiac [...] seen given later gestation Embryo(<11wk) /Fetus(>=11wk): Single [place] Rump Length: 7.9 cm Rate of Cardiac [...] current ultrasound is 14 weeks 0 days. [facility] Radiology Study observation (narrative) [facility] US OB LESS THAN 14 WEEKS SIN GLE OR FIRST GESTATION W DOPPLEROrdered By: Keyur Benavides on 12-02-2024 [facility] Work Phone: Urinalysison 12-02-2024 Bilirubin Ql (U) Negative NEGATIVE [facility] Clarity (U) Clear Clear [facility]ene[facility] Color (U) Yellow Yellow [facility] Glucose Test strip (U) [Mass/Vol] Negative NEGATIVE mg/dL [facility] Hemoglobin Auto test strip Ql (U) Negative NEGATIVE [facility] Interpretation and review of laboratory results Abnormal [facility] Ketones (U) [Mass/Vol] Negative NEGATIVE mg/dL [facility] Leukocyte esterase Test strip Ql (U) MODERATE Abnormal NEGATIVE [facility] [employer] Nitrite Ql (U) Negative NEGATIVE [facility] [employer] pH (U) 7.5 [pH] 5.0 - 9.0 [facility] Protein (U) [Mass/Vol] Negative NEGATIVE mg/dL [facility] Specific gravity (U) [Rel density] 1.025 High 1.010 - 1.020 [facility] Urobilinogen Qn (U) Normal 0.0 - 1. 0 EU/dL [facility] Urinalysis, Routineon 2024 Bilirubin, SemiQt,Ur Negative Normal NEG [facility] Comment on above: Performed By: #### U A, UMICAO #### [facility] [address] [place], [place] [phone] Beer Maker: Nandini Acevedo MD Blood, Urine Negative Normal NEG [facility] Comment on above: Performed By: #### U A, UMICAO #### [facility] [address] [place] [address] [place] [address] Beer Maker: Nandini Acevedo MD Clarity (U) Clear Normal CLEAR [facility] Comment on above: Performed By: #### U A, UMICAO #### [facility] [address] [place] [address] [place], [place] [phone] Beer Maker: Nandini Acevedo MD Color (U) Yellow Normal YEL [facility] Comment on above: Performed By: #### U A, UMICAO #### [facility] [address] [place] [address] [place], [place] [phone] Beer Maker: Nandini Acevedo MD Glucose Ql (U) Negative Normal NEG [facility] Comment on above: Performed By: #### U A, UMICAO #### [facility] [address] [place] [address] [place] [address] Beer Maker: Nandini Acevedo MD Ketones Ql (U) Negative Normal NEG [facility] Comment on above: Performed By: #### U A, UMICAO #### [facility] [address] [place] [address] [place] [address] Beer Maker: Nandini Acevedo MD Leukocyte esterase Test strip Ql (U) MODERATE Abnormal NEG [facility] Comment on above: Performed By: #### U A, UMICAO #### [facility] [address] [place] [address] [place], [place] [phone] Beer Maker: Nandini Acevedo MD Nitrite,Ur Negative Normal NEG [facility] Comment on above: Performed By: #### U A, UMICAO #### [facility] [address] [place] [address] [place], [place] [phone] Beer Maker: Nandini Acevedo MD PH,Ur 7.5 Normal 5.0-9.0 [facility] Comment on above: Performed By: #### U A, UMICAO #### [address] [place] [address] Beer Maker: Nandini Acevedo MD Protein Ql (U) Negative Normal NEG [facility] Comment on above: Performed By: #### U A, UMICAO #### [address] [place], [place] [phone] Beer Maker: Nandini Acevedo MD Spec. [place],Ur 1.025 High 1.010-1.020 [facility] Comment on above: Performed By: #### U A, UMICAO #### [address] [place], [place] [phone] Beer Maker: Nandini Acevedo MD Urobilinogen,Ur Normal Normal 0.0-1.0 [facility] Comment on above: Performed By: #### U A, UMICAO #### [address] [place], [place] [phone] Beer Maker: Nandini Acevedo MD Urinalysis,Microon 5 Amorphous sediment LM Ql (Urine sed) 2+ Abnormal NONE [facility] Comment on above: Performed By: #### U A, UMICAO #### [facility] [address] [place] [address] Beer Maker: Nandini Acevedo MD Epithelial cells LM Ql (Urine sed) 0 TO 2 Normal 0-25 [facility] Comment on above: Performed By: #### U A, UMICAO #### [facility] [address] [place] [address] Beer Maker: Nandini Acevedo MD Urine RBC's 0 TO 2 Normal 0-2 [facility] Comment on above: Performed By: #### U A, UMICAO #### [facility] [address] [place] [address] Beer Maker: Nandini Acevedo MD Urine WBC's 2 TO 5 Normal 0-5 [facility] Comment on above: Performed By: #### U A, UMICAO #### [facility] [address] [place] [address] Beer Maker: Nandini Acevedo MD HCG ( test) Ql (U)o n 11-03-2024 Interpretation and review of laboratory results Abnormal [facility] re Preg Test, Ur Positive Negative [facility] Urinalysis macro (dipstick) panel (U)on 11-03-2024 Bilirubin, UA Negative Negative - 4(70) +++ mg/dL [facility] Blood, UA Negative Negative - 50 Issac/mcL [facility] Clarity, UA Clear [facility] re Color, UA Yellow [facility] Glucose, UA Negative Negative - 1999(110) ++++ mg/dL [facility] Interpretation and review of laboratory results Normal [facility] re Ketones, UA Negative Negative - 160(16) ++++ mg/dL [facility] Leukocytes, UA Negative Negative - 500+++ Christo/mcL [facility] Nitrite, UA Negative Negative - Positive [facility] pH, UA 5 5 - 9 [facility] Protein, UA Negative Negative - 1999(20) ++++ mg/dL [facility] Spec Grav, UA 1.03 1 - 1.03 [facility] Urobilinogen, UA 1.0 0.2 - 12 mg/dL [facility] ALL CBC WITH AUTO DIFFon BASOPHILS ABSOLUTE AUTO 0 [facility] Basophils/100 WBC (Bld) 0.5 % 0.2 - 2.0 % [facility] Eosinophils/100 WBC (Bld) 1.9 % 0.9 - 7.0 % [facility] Erythrocyte distribution width (RBC) [Ratio] 12.1 % 11.0 - 15.0 % [facility] Hematocrit (Bld) [Volume fraction] 40.1 % 36.0 - 48.0 % [facility] e Hemoglobin (Bld) [Mass/Vol] 13.5 g/dL 12.0 - 16.0 g/dL [facility] IMMATURE GRANULOCYTES ABS AUTO 0.03 [facility] Immature granulocytes/100 WBC (Bld) 0.4 % 0.0 - 0.5 % [facility] Interpretation and review of laboratory results Abnormal [facility] re LYMPHOCYTES ABSOLUTE AUTO 1.7 [facility] Lymphocytes/100 WBC (Bld) 23.9 % 20.5 - 60.0 % [facility] MCH (RBC) [Entitic mass] 30.3 pg 26.7 - 34.0 pg [facility] MCHC (RBC) [Mass/Vol] 33.7 g/dL 29.9 - 35.2 g/dL [facility] MCV (RBC) [Entitic vol] 90.1 fL 81.0 - 99.0 fL [facility] MONOCYTES ABSOLUTE AUTO 0.5 [facility] Monocytes/100 WBC (Bld) 7.4 % 1.7 - 12.0 % [facility] NEUTROPHILS ABSOLUTE AUTO 4.8 [facility] Neutrophils/100 WBC (Bld) 65.9 % 43.0 - 75.0 % [facility] Platelet mean volume (Bld) [Entitic vol] 8.7 fL Low 9.5 - 13.5 fL [facility] TBH EO # 0.1 [facility] PLT 299 [facility] TB RBC 4.45 [facility] e TBH WBC 7.3 [facility] CLINISYNC [facility] e Screenson 05-11-2024 Screens [id number]# 1.00TIFF [facility] Ambulatory Visit Summaryon 0 2024 Ambulatory [...] RUTH CLARK, Yonis Mckenzie Where: [facility] Patient Education[facility] 05-10-20 24 Patient Education [...] Follow these instructions at home: ? Take whte-kne-zzokzrj and prescription medicines as told by your [...] get worse. (more content not included)... Normal [facility] Urology Office/Clinic Noteon 2024 Urology [...] back normal. 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 Also had a difficult PO recovery and had a CT scan done in the ER which indicated her Mirena is not in the correct spot. States she plans to f/u with her reed or wind instrument repairer. We did speak about how some pts [...] Bactrim SS 1 tab prn -F/u with DIRECTOR OF INFECTION CONTROL to discuss IUD/different form of control -F/u [...] Contact Information LUIS STEPHENS, JANNETH Barreto, URL [address] [address] [phone] Additional Instructions: 6 mos (no labs) Patient [...] vaccine, (more content not included)... [facility] Comment on above: Result Comment: Elec tronically Signed By: JANNETH SMITH PA-C\.br\Date and Time Signed: 05/10/24 09:55 EDT\.br\Electronically Co-Signed By: Ondina Parra\.br\Date and Time Co-Signed: 05/10/24 09:51 EDT Outside Colonoscopyon 2023 Outside Colonoscopy [id number]#1. 00TIFF [facility] Lab Reportson 04-28-2024 Lab Reports [id number]#1 .00TIFF [facility] Consent for Procedure/Surger yon 03-09-2024 Consent for Procedure/Surgery [id number]#1 .00TIFF [facility] Ambulatory Visit Summaryon 0 03-08-2024 Ambulatory [...] STEPHENS, JANNETH Barreto Where: [facility] Physician Referralon Physician Referral [id number]#[address] [facility] Physician Referralon 024 Physician Referral [id number]#1 .[address] [facility] Consent for Procedure/Surger yon 02-09-2024 Consent for Procedure/Surgery [id number]# 1.00TIFF [facility] Consent for Treatmenton 01-21 Consent for Treatment [id number]#1 .00TI[address] [facility] IntraOperative Documentson 0 02-09-2024 IntraOperative Documents [id number]# 1.00TIFF [facility] Main OR Intraoperative Recor don 02-09-2024 Main OR Intraoperative Record IntraOp Document Type FTURO Summary Primary Physician: Dieter REMY MD Finalized Date/Time: 02/09/24 08:32:09 Pt. Name: ROSALIE RODRÍGUEZ/Sex: 1995 Female Med Rec #: [id number] Physician: Dieter REMY MD Financial #: [id number] Pt. Type: O Room/Bed: / Admit/Disch: 02/09/24 [...] Bianca Quesada Role Performed Surgeon - Primary Automation Qa Analyst - Primary Scrub - Primary Time In [...] GIUSEPPE Rushing RN, Ruthann 02/09/24 08:[address] [facility] Main OR Preoperative Recordo n 02-09-2024 Main OR Preoperative Record Holding Area Document Type FTURO Summary Primary Physician: Dieter REMY MD Finalized Date/Time: 02/09/24 08:08:52 Pt. Name: ORSALIE RODRÍGUEZ/Sex: 1995 Female Med Rec #: [id number] Physician: Dieter REMY MD Financial #: [id number] Pt. Type: O Room/Bed: / Admit/Disch: 02/09/24 [...] GIUSEPPE Rushing RN, Ruthann 02/09/24 08:[address] [facility] Operative Reporton Operative Report Patient: [...] her recurrent urinary tract infections.. [facility] Comment on above: Result Comment: Elec tronically Signed By: SANDRITA CLARK, Dieter Douglas.br\Date and Time Signed: 02/09/24 08:36 EDT Outpatient Surgery Discharge Instructionon 02-09-2024 Outpatient Surgery Discharge Instruction [id number]# 1.00TIFF [facility] RAD - MISCon 01-29-2024 RAD - MISC [id number]#1 .00TIFF [facility] C Urineon 01-21-2024 Bacteria identified Cx [...] Locations R1: This test was performed at: [facility], [address] [place] [address], [id number] , , [facility] Comment on above: Performed By: #### 2 [id number] ####[facility] [address] [place] [address] RAD - Ultrasound Reporton RAD - Ultrasound Report [id number]# 1.00TIFF Normal [facility] Screenson 01-21-2024 Screens [id number]#[address] [facility] Ambulatory Visit Summaryon 0 01-19-2024 [...] SMITH PA-C, URL When: Where: [address] [place] [address] Medications What How Much When Instructions New sulfamethoxazole-trim ethoprim (Bactrim 400 mg-80 mg Tab) 1 Tablets By Mouth Every day as needed for UTI prevention Refills: 3 Pickup at [id number] Unchanged guanfacine (guanfacine 3 mg [...] if questions or concerns Pharmacy Information [id number]: [address], [place] [id number] [phone] Allergies No Known Allergies No Known Medication [...] Trouble urinati (more content not included)... Normal [facility] Patient Educationon 01-19-20 Patient Education Obstetrics and [...] this condition includes: ? Antibiotic medicine. ? Kadj-fwu-cfdvabi medicines to treat discomfort. ? Drinking enough [...] these instructions at home: Medicines ? Take zrpi-hoc-rfpeimr and prescription medicines only as told by [...] Document Revie (more content not included)... Normal [facility] BNPon 04-17-2023 Natriuretic peptide B (Bld) [Mass/Vol] 246.0 pg/mL Normal <=450.0 [facility] Comment on above: Performed By: #### I NSULIN #### [facility] [address] [address] [address] Saray Souza CARDIAC NELI ADMITon 023 CK [Catalytic activity/Vol] 47 U/L Normal 26-192 [facility] Comment on above: Performed By: #### I NSULIN #### [facility] [address] [address] [address] Saray Souza CK.MB [Mass/Vol] 1.02 ng/mL Normal <=3.60 [facility] Comment on above: Performed By: #### I NSULIN #### [facility] [address] [address] [address] Saray Souza HSTROP 4.5 pg/mL Normal 4.0-51.3 [facility] Comment on above: Result Comment: CUT- OFF POINTS HAVE BEEN ESTABLISHED BASED ON THE FOURTH UNIVERSAL DEFINITIONS OF MYOCARDIAL INFARCTION. THE UPPER REFERENCE LIMIT (URL) OF TROPONIN, DEFINED THE 99TH PERCENTILE OF cTnI DISTRIBUTION IN A REFERENCE POPULATION, HAS BEEN CONFIRMED THE DECISION THRESHOLD FOR IA DIAGNOSIS. Performed By: #### I CULRYULIN #### [facility] [address] [place] [address] Dr. Saray Souza FRANKLIN 36 ng/mL Normal 9-82 [facility] Comment on above: Performed By: #### I ANA #### [facility] [address] [place] [address] Dr. Saray Souza CBC W MANUAL DIFFon 04-17-20 ATYPICAL LYMPH # Normal [facility] Comment on above: Performed By: #### C EDGARDO #### [facility] [address] [place] [address] Dr. Saray Souza ATYPICAL LYMPH % Normal [facility] Comment on above: Performed By: #### C EDGARDO #### [facility] [address] [place] [address] Dr. Saray Souza BAND # 0.3 103/ul Normal 0.0-0.3 [facility] Comment on above: Performed By: #### Sweetie REYNOSO #### [facility] [address] [place] [address] Dr. Saray Souza BAND % 1 % Normal 0-5 [facility] Comment on above: Performed By: #### Sweetie REYNOSO #### [facility] [address] [place] [address] Dr. Saray Souza BASOM # 0.00 103/ul Normal 0.00-0.10 [facility] Comment on above: Performed By: #### Sweetie REYNOSO #### [facility] [address] [place] [address] Dr. Saray Souza BASOM % 0.0 % Critically low 0.2-2.0 [facility] Comment on above: Performed By: #### C EDGARDO #### [facility] [address] [place] [address] Dr. Saray Souza BLAST # Normal [facility] Comment on above: Performed By: #### C EDGARDO #### [facility] [address] [place] [address] Dr. Saray Souza BLAST % Normal [facility] Comment on above: Performed By: #### C EDGARDO #### [facility] [address] [place] [address] Dr. Saray Souza CORRECTED WBC Normal 4.0-11.0 [facility] Comment on above: Performed By: #### C EDGARDO #### [facility] [address] [place] [address] Dr. Saray Souza EOS # 0.00 103/ul Normal 0.00-0.70 [facility] Comment on above: Performed By: #### C EDGARDO #### [facility] [address] [place] [address] Dr. Saray Souza EOS% 0.0 % Critically low 0.9-7.0 [facility] Comment on above: Performed By: #### C EDGARDO #### [facility] [address] [place] [address] Dr. Saray Souza HCT 43.6 % Normal 36.0-48.0 [facility] Comment on above: Performed By: #### C EDGARDO #### [facility] [address] [place] [address] Dr. Saray Souza HGB 14.7 g/dl Normal 12.0-16.0 [facility] Comment on above: Performed By: #### C EDGARDO #### [facility] [address] [place] [address] Dr. Saray Souza LYMPHM # 1.55 103/ul Normal 1.20-3.80 [facility] Comment on above: Performed By: #### C EDGARDO #### [facility] [address] [place] [address] Dr. Saray Souza LYMPHM% 6.0 % Critically low 20.5-60.0 [facility] Comment on above: Performed By: #### C EDGARDO #### [facility] [address] [place] [address] Dr. Saray Souza MCH 30.3 pg Normal 26.7-34.0 [facility] Comment on above: Performed By: #### C EDGARDO #### [facility] [address] [address] [address] Saray Souza MCHC 33.7 g/dl Normal 29.9-35.2 [facility] Comment on above: Performed By: #### C EDGARDO #### [facility] [address] [address] [address] Saray Souza MCV 89.9 fL Normal 81.0-99.0 [facility] Comment on above: Performed By: #### C EDGARDO #### [facility] [address] [place] [address] Dr. Saray Souza METAMYELOCYTE # Normal [facility] Comment on above: Performed By: #### C EDGARDO #### [facility] [address] [place] [address] Dr. Saray Souza METAMYELOCYTE % Normal [facility] Comment on above: Performed By: #### C EDGARDO #### [facility] [address] [place] [address] Dr. Saray Souza MONOM# 2.06 103/ul Critically high 0.30-0.80 [facility] Comment on above: Performed By: #### C EDGARDO #### [facility] [address] [place] [address] Dr. Saray Souza MONOM% 8.0 % Normal 1.7-12.0 [facility] Comment on above: Performed By: #### C EDGARDO #### [facility] [address] [place] [address] Dr. Saray Souza MPV 8.8 fL Critically low 9.5-13.5 [facility] Comment on above: Performed By: #### C EDGARDO #### [facility] [address] [place] [address] Dr. Saray Souza MYELOCYTE # Normal [facility] Comment on above: Performed By: #### C EDGARDO #### [facility] [address] [place] [address] Dr. Saray Souza MYELOCYTE % Normal [facility] Comment on above: Performed By: #### C EDGARDO #### [facility] [address] [address] [address] Saray Souza NRBC Normal [facility] Comment on above: Performed By: #### C EDGARDO #### [facility] [address] [address] [address] Saray Souza PLT 397 103/ul Normal 150-450 [facility] Comment on above: Performed By: #### C EDGARDO #### [facility] [address] [place] [address] Dr. Saray Souza RBC 4.85 106/ul Normal 4.20-5.40 [facility] Comment on above: Performed By: #### C EDGARDO #### [facility] [address] [place] [address] Dr. Saray Souza RDW 12.0 % Normal 11.0-15.0 [facility] Comment on above: Performed By: #### C EDGARDO #### [facility] [address] [place] [address] Dr. Saray Souza SEG # 21.93 103/ul Critically high 1.40-6.50 [facility] Comment on above: Performed By: #### C EDGARDO #### [facility] [address] [place] [address] Dr. Saray Souza SEG % 85.0 % Critically high 43.0-75.0 [facility] Comment on above: Performed By: #### Sweetie REYNOSO #### [facility] [address] [place] [address] Dr. Saray Souza WBC 25.8 103/ul Critically high 4.0-11.0 [facility] Comment on above: Performed By: #### C EDGARDO #### [facility] [address] [place] [address] Dr. Saray Souza CULTURE URINEon 04-17-2023 CULTURE URINE Culture Observations : LORENZO TO FOLLOW. Isolate 1 Enterococcus faecalis 20,000 cfu/mL of Normal [facility] Comment on above: Performed By: #### C BC #### [facility] [address] [place] [address] Dr. Saray CANO URINE PROFILEon 3 Bilirubin Ql (U) Negative Normal NEGATIVE [facility] Comment on above: Performed By: #### C BC #### [facility] [address] [place] [address] Dr. Saray Souza Clarity (U) CLEAR Normal CLEAR [facility] Comment on above: Performed By: #### C BC #### [facility] [address] [place] [address] Dr. Saray Souza Color (U) LT. YELLOW Normal YELLOW [facility] Comment on above: Performed By: #### C BC #### [facility] [address] [place] [address] Dr. Saray JHA A micrscopic examination will be performed if indicated. Normal [facility] Comment on above: Performed By: #### C BC #### [facility] [address] [place] [address] Dr. Saray Souza Glucose Ql (U) Negative Normal NEGATIVE [facility] Comment on above: Performed By: #### C BC #### [facility] [address] [place] [address] Dr. Saray Souza Hemoglobin Ql (U) Negative Normal NEGATIVE [facility] Comment on above: Performed By: #### C BC #### [facility] [address] [place] [address] Dr. Saray Souza Ketones Ql (U) Negative Normal NEGATIVE [facility] Comment on above: Performed By: #### C BC #### [facility] [address] [place] [address] Dr. Saray Souza LEUKOCYTES SMALL Abnormal NEGATIVE [facility] Comment on above: Performed By: #### C BC #### [facility] [address] [place] [address] Dr. Saray Souza Nitrite Ql (U) Negative Normal NEGATIVE [facility] Comment on above: Performed By: #### C BC #### [facility] [address] [place] [address] Dr. Saray Souza pH (U) 6.5 [pH] Normal 5-9 [facility] Comment on above: Performed By: #### C BC #### [facility] [address] [place] [address] Dr. Saray Souza SPEC GRAVITY 1.025 Normal 1.005-<=1.025 [facility] Comment on above: Performed By: #### C BC #### [facility] [address] [place] [address] Dr. Saray Souza UA PROTEIN Negative Normal NEGATIVE/ TRACE [facility] Comment on above: Performed By: #### C BC #### [facility] [address] [place] [address] Dr. Saray Souza UR MICRO IND INDICATED Normal [facility] Comment on above: Performed By: #### C BC #### [facility] [address] [place] [address] Dr. Saray Souza Urobilinogen Qn (U) 0.2 {Janine'U}/dL Normal 0.2 - 1. 0 [facility] Comment on above: Performed By: #### C BC #### [facility] [address] [place] [address] Dr. Saray Souza URon 04-17-2023 , QUAL Negative Normal NEGATIVE [facility] Comment on above: Performed By: #### C BC #### [facility] [address] [place] [address] Dr. Saray Souza PROF 14(COMP METB)on 023 Albumin [Mass/Vol] 3.0 g/dL Critically low 3.4-5.0 [facility] Comment on above: Performed By: #### I NSULIN #### [facility] [address] [place] [address] Dr. Saray Souza Albumin/Globulin [Mass ratio] 0.9 {ratio} Normal [facility] Comment on above: Performed By: #### I NSULIN #### [facility] [address] [place] [address] Dr. Saray Souza ALP [Catalytic activity/Vol] 54 U/L Normal 46-116 [facility] Comment on above: Performed By: #### I NSULIN #### [facility] [address] [address] [address] Saray Souza ALT [Catalytic activity/Vol] 27 U/L Normal 14-59 [facility] Comment on above: Performed By: #### I NSULIN #### [facility] [address] [address] [address] Saray Souza Anion gap [Moles/Vol] 12.9 mmol/L Normal [facility] Comment on above: Performed By: #### I NSULIN #### [facility] [address] [address] [address] Saray Souza AST [Catalytic activity/Vol] 12 U/L Critically low 15-37 [facility] Comment on above: Performed By: #### I NSULIN #### [facility] [address] [address] [address] Saray Souaz Bilirubin [Mass/Vol] 0.3 mg/dL Normal 0.2-1.0 [facility] Comment on above: Performed By: #### I NSULIN #### [facility] [address] [address] [address] Saray Souza Calcium [Mass/Vol] 8.1 mg/dL Critically low 8.5-10.1 [facility] Comment on above: Performed By: #### I NSULIN #### [facility] [address] [place] [address] Dr. Saray Souza Chloride [Moles/Vol] 102 mmol/L Normal 98-107 [facility] Comment on above: Performed By: #### I NSULIN #### [facility] [address] [address] [address] Saray Souza CO2 [Moles/Vol] 26.2 mmol/L Normal 21.0-32.0 [facility] Comment on above: Performed By: #### I NSULIN #### [facility] [address] [address] [address] Saray Souza Creatinine [Mass/Vol] 0.87 mg/dL Normal 0.55-1.02 [facility] Comment on above: Performed By: #### I NSULIN #### [facility] [address] [address] [address] Saray Souza EGFR-AF SWEDISH >60 Normal >=60 [facility] Comment on above: Performed By: #### I NSULIN #### [facility] [address] [address] [address] Saray Souza EGFR-NON AF SWEDISH >60 Normal >=60 [facility] Comment on above: Performed By: #### I NSULIN #### [facility] [address] [address] [address] Saray Souza Globulin (S) [Mass/Vol] 3.2 g/dL Normal [facility] Comment on above: Performed By: #### I NSULIN #### [facility] [address] [place] [address] Dr. Saray Souza Glucose [Mass/Vol] 206 mg/dL Critically high 74-106 [facility] Comment on above: Performed By: #### I NSULIN #### [facility] [address] [address] [address] Saray Souza Potassium [Moles/Vol] 4.1 mmol/L Normal 3.5-5.1 [facility] Comment on above: Performed By: #### I NSULIN #### [facility] [address] [place] [address] Dr. Saray Souza Protein [Mass/Vol] 6.2 g/dL Critically low 6.4-8.2 [facility] Comment on above: Performed By: #### I NSULIN #### [facility] [address] [address] [address] Saray Souza Sodium [Moles/Vol] 137 mmol/L Normal 136-[address] [facility] Comment on above: Performed By: #### I NSULIN #### [facility] [address] [address] [address] Saray Souza Urea nitrogen [Mass/Vol] 19.0 mg/dL Critically high 7.0-18.0 [facility] Comment on above: Performed By: #### I NSULIN #### [facility] [address] [place] [address] Dr. Saray Souza Urea nitrogen/Creatinine [Mass ratio] 21.8 mg/mg Normal [facility] Comment on above: Performed By: #### I NSULIN #### [facility] [address] [place] [address] Dr. Saray Souza TSHon 04-17-2023 TSH 0.553 uIU/mL Normal 0.358-3.740 [facility] Comment on above: Performed By: #### I NSULIN #### [facility] [address] [place] [address] Dr. Saray Souza URINE MICROSCOPIC ONLYon BACTERIA TRACE Abnormal NONE SEEN [facility] Comment on above: Performed By: #### C BC #### [facility] [address] [place] [address] Dr. Saray Souza Bacteria identified Cx Nom (U) INDICATED Normal [facility] Comment on above: Performed By: #### C BC #### [facility] [address] [place] [address] Dr. Saray Souza CAST NONE SEEN Normal NONE SEEN [facility] Comment on above: Performed By: #### C BC #### [facility] [address] [place] [address] Dr. Saray Souza Crystals LM Nom (Urine sed) NONE SEEN Normal NONE SEEN [facility] Comment on above: Performed By: #### C BC #### [facility] [address] [place] [address] Dr. Saray Souza Epithelial cells LM Ql (Urine sed) RARE Normal NONE SEEN /RARE [facility] Comment on above: Performed By: #### C BC #### [facility] [address] [place] [address] Dr. Saray Souza MUCOUS NONE SEEN Normal NONE SEEN [facility] Comment on above: Performed By: #### C BC #### [facility] [address] [place] [address] Dr. Saray Souza RBC 0-2 Normal 0-2 [facility] Comment on above: Performed By: #### C BC #### [facility] [address] [address] [address] Saray Souza WBC 5-10 Abnormal NONE SEEN [facility] Comment on above: Performed By: #### C BC #### [facility] [address] [place] [address] [id number] [address] Saray Souza XR CHEST 2 Von [...] Date: 2023-04-17 10:45 Normal [facility] INSULINon 04-07-2023 Insulin 11.3 uIU/mL Normal 2.6-24.9 [facility] Comment on above: Performed By: #### I NSULIN #### [facility] [address] [place] [address] Dr. Saray Souza US KIDNEYS BLADDERon 04-04- [...] Date: 2023-04-04 08:22 Normal [facility] INSULINon 04-02-2023 Insulin 37.5 uIU/mL Critically high 2.6-24.9 [facility] Comment on above: Performed By: #### I NSULIN #### [facility] [address] [place] [address] Dr. Saray Souza CBC AUTO DIFFon 04-01-2023 BASO # 0.0 103/ul Normal 0.0-0.1 [facility] Comment on above: Performed By: #### C BC #### [facility] [address] [place] [address] Dr. Saray Souza Basophils/100 WBC (Bld) 0.5 % Normal 0.2-2.0 [facility] Comment on above: Performed By: #### C BC #### [facility] [address] [place] [address] Dr. Saray Souza EO # 0.2 103/ul Normal 0.0-0.7 [facility] Comment on above: Performed By: #### C BC #### [facility] [address] [place] [address] Dr. Saray Souza Eosinophils/100 WBC (Bld) 2.3 % Normal 0.9-7.0 [facility] Comment on above: Performed By: #### C BC #### [facility] [address] [place] [address] Dr. Saray Souza Erythrocyte distribution width (RBC) [Ratio] 11.9 % Normal 11.0-15.0 [facility] Comment on above: Performed By: #### C BC #### [facility] [address] [place] [address] Dr. Saray Souza Hematocrit (Bld) [Volume fraction] 42.2 % Normal 36.0-48.0 [facility] Comment on above: Performed By: #### C BC #### [facility] [address] [place] [address] Dr. Saray Souza Hemoglobin (Bld) [Mass/Vol] 13.7 g/dL Normal 12.0-16.0 [facility] Comment on above: Performed By: #### C BC #### [facility] [address] [place] [address] Dr. Saray Souza IG # 0.02 10e3/ul Normal 0.00-0.03 [facility] Comment on above: Performed By: #### C BC #### [facility] [address] [place] [address] Dr. Saray Souza IG % 0.3 % Normal 0.0-0.5 [facility] Comment on above: Performed By: #### C BC #### [facility] [address] [place] [address] Dr. Saray Souza LYMPH # 1.6 103/ul Normal 1.2-3.8 [facility] Comment on above: Performed By: #### C BC #### [facility] [address] [place] [address] Dr. Saray Souza Lymphocytes/100 WBC (Bld) 21.5 % Normal 20.5-60.0 [facility] Comment on above: Performed By: #### C BC #### [facility] [address] [place] [address] Dr. Saray Souza MANUAL DIFF REQ NO Normal [facility] Comment on above: Performed By: #### C BC #### [facility] [address] [place] [address] Dr. Saray Souza MCH (RBC) [Entitic mass] 30.0 pg Normal 26.7-34.0 [facility] Comment on above: Performed By: #### C BC #### [facility] [address] [place] [address] Dr. Saray Souza MCHC (RBC) [Mass/Vol] 32.5 g/dL Normal 29.9-35.2 [facility] Comment on above: Performed By: #### C BC #### [facility] [address] [place] [address] Dr. Saray Souza MCV (RBC) [Entitic vol] 92.5 fL Normal 81.0-99.0 [facility] Comment on above: Performed By: #### C BC #### [facility] [address] [place] [address] Dr. Saray Souza MONO # 0.7 103/ul Normal 0.3-0.8 [facility] Comment on above: Performed By: #### C BC #### [facility] [address] [place] [address] Dr. Saray Souza Monocytes/100 WBC (Bld) 9.6 % Normal 1.7-12.0 [facility] Comment on above: Performed By: #### C BC #### [facility] [address] [place] [address] Dr. Saray Souza NEUT # 5.0 103/ul Normal 1.4-6.5 [facility] Comment on above: Performed By: #### C BC #### [facility] [address] [place] [address] Dr. Saray Souza Neutrophils/100 WBC (Bld) 65.8 % Normal 43.0-75.0 [facility] Comment on above: Performed By: #### C BC #### [facility] [address] [place] [address] Dr. Saray Souza Platelet mean volume (Bld) [Entitic vol] 8.9 fL Critically low 9.5-13.5 [facility] Comment on above: Performed By: #### C BC #### [facility] [address] [place] [address] Dr. Saray Souza PLT 293 103/ul Normal 150-450 [facility] Comment on above: Performed By: #### C BC #### [facility] [address] [place] [address] Dr. Saray Souza RBC 4.56 106/ul Normal 4.20-5.40 [facility] Comment on above: Performed By: #### C BC #### [facility] [address] [place] [address] Dr. Saray Souza WBC 7.5 103/ul Normal 4.0-11.0 [facility] Comment on above: Performed By: #### C BC #### [facility] [address] [place] [address] Dr. Saray Souza CULTURE URINEon 04-01-2023 CULTURE URINE Culture Observations : MODERATE GROWTH OF MIXED GENITAL CARMELO. NO POTENTIAL PATHOGENS SEEN. Normal [facility] Comment on above: Performed By: #### C BC #### [facility] [address] [place] [address] Dr. Saray Souza FREE THYROXINE INDEX T7on FTI 2.51 Normal 1.30-4.50 [facility] Comment on above: Performed By: #### I NSULIN #### [facility] [address] [place] [address] Dr. Saray Souza T3U 33.0 % Normal 30.0-39.0 [facility] Comment on above: Performed By: #### I NSULIN #### [facility] [address] [place] [address] Dr. Saray Souza T4 [Mass/Vol] 7.60 ug/dL Normal 4.80-13.90 [facility] Comment on above: Performed By: #### I NSULIN #### [facility] [address] [place] [address] Dr. Saray Souza IRONon 04-01-2023 Iron [Mass/Vol] 151.0 ug/dL Normal 50.0-170.0 [facility] Comment on above: Performed By: #### C EDGARDO #### [facility] [address] [place] [address] Dr. Saray Souza PROF 14(COMP METB)on 023 Albumin [Mass/Vol] 3.7 g/dL Normal 3.4-5.[address] [facility] Comment on above: Performed By: #### C EDGARDO #### [facility] [address] [place] [address] Dr. Saray Souza Albumin/Globulin [Mass ratio] 1.1 {ratio} Normal [facility] Comment on above: Performed By: #### C EDGARDO #### [facility] [address] [place] [address] Dr. Saray Souza ALP [Catalytic activity/Vol] 81 U/L Normal 46-116 [facility] Comment on above: Performed By: #### C EDGARDO #### [facility] [address] [place] [address] Dr. Saray Souza ALT [Catalytic activity/Vol] 33 U/L Normal 14-59 [facility] Comment on above: Performed By: #### C EDGARDO #### [facility] [address] [place] [address] Dr. Saray Souza Anion gap [Moles/Vol] 10.2 mmol/L Normal [facility] Comment on above: Performed By: #### C EDGARDO #### [facility] [address] [address] [address] Saray Souza AST [Catalytic activity/Vol] 22 U/L Normal 15-37 [facility] Comment on above: Performed By: #### C EDGARDO #### [facility] [address] [place] [address] Dr. Saray Souza Bilirubin [Mass/Vol] 0.3 mg/dL Normal 0.2-1.0 [facility] Comment on above: Performed By: #### C EDGARDO #### [facility] [address] [place] [address] Dr. Saray Souza Calcium [Mass/Vol] 8.6 mg/dL Normal 8.5-10.[address] [facility] Comment on above: Performed By: #### C EDGARDO #### [facility] [address] [place] [address] Dr. Saray Souza Chloride [Moles/Vol] 105 mmol/L Normal 98-107 [facility] Comment on above: Performed By: #### C EDGARDO #### [facility] [address] [place] [address] Dr. Saray Souza CO2 [Moles/Vol] 30.4 mmol/L Normal 21.0-32.0 [facility] Comment on above: Performed By: #### C EDGARDO #### [facility] [address] [place] [address] Dr. Saray Souza Creatinine [Mass/Vol] 0.72 mg/dL Normal 0.55-1.02 [facility] Comment on above: Performed By: #### C EDGARDO #### [facility] [address] [place] [address] Dr. Saray Souza EGFR-AF SWEDISH >60 Normal >=60 [facility] Comment on above: Performed By: #### C BCMAN #### [facility] [address] [address] [address] Saray Souza EGFR-NON AF SWEDISH >60 Normal >=60 [facility] Comment on above: Performed By: #### C BCMAN #### [facility] [address] [address] [address] Saray Souza Globulin (S) [Mass/Vol] 3.5 g/dL Normal [facility] Comment on above: Performed By: #### C BCMAN #### [facility] [address] [address] [address] Saray Souza Glucose [Mass/Vol] 89 mg/dL Normal 74-[address] [facility] Comment on above: Performed By: #### C BCMAN #### [facility] [address] [address] [address] Saray Souza Potassium [Moles/Vol] 3.6 mmol/L Normal 3.5-5.1 [facility] Comment on above: Performed By: #### C BCPRESLEY #### [facility] [address] [address] [address] Saray Souza Protein [Mass/Vol] 7.2 g/dL Normal 6.4-8.[address] [facility] Comment on above: Performed By: #### C BCMAN #### [facility] [address] [address] [address] Saray Souza Sodium [Moles/Vol] 142 mmol/L Normal 136-145 [facility] Comment on above: Performed By: #### C BCMAN #### [facility] [address] [address] [address] Saray Souza Urea nitrogen [Mass/Vol] 12.0 mg/dL Normal 7.0-18.0 [facility] Comment on above: Performed By: #### C BCMAN #### [facility] [address] [address] [address] Saray Souza Urea nitrogen/Creatinine [Mass ratio] 16.7 mg/mg Normal [facility] Comment on above: Performed By: #### C EDGARDO #### [facility] [address] [place] [address] Dr. Saray Souza TSHon 04-01-2023 TSH 1.708 uIU/mL Normal 0.358-3.740 [facility] Comment on above: Performed By: #### I NSULIN #### [facility] [address] [place] [address] Dr. Saray Souza UA RANDOM W/MICROSCOPICon BACTERIA SMALL Abnormal NONE SEEN [facility] Comment on above: Performed By: #### I NSULIN #### [facility] [address] [place] [address] Dr. Saray Souza Bilirubin Ql (U) Negative Normal NEGATIVE [facility] Comment on above: Performed By: #### I NSULIN #### [facility] [address] [place] [address] Dr. Saray Souza CAST NONE SEEN Normal NONE SEEN [facility] Comment on above: Performed By: #### I NSULIN #### [facility] [address] [place] [address] Dr. Saray Souza Clarity (U) CLEAR Normal CLEAR [facility] Comment on above: Performed By: #### I NSULIN #### [facility] [address] [place] [address] Dr. Saray Souza Color (U) YELLOW Normal YELLOW [facility] Comment on above: Performed By: #### I NSULIN #### [facility] [address] [place] [address] Dr. Saray Souza Crystals LM Nom (Urine sed) NONE SEEN Normal NONE SEEN [facility] Comment on above: Performed By: #### I NSULIN #### [facility] [address] [place] [address] Dr. Saray Souza Epithelial cells LM Ql (Urine sed) FEW Abnormal NONE SEEN /RARE [facility] Comment on above: Performed By: #### I NSULIN #### [facility] [address] [place] [address] Dr. Saray Souza Glucose Ql (U) Negative Normal NEGATIVE [facility] Comment on above: Performed By: #### I NSULIN #### [facility] [address] [address] [address] Saray Souza Hemoglobin Ql (U) Negative Normal NEGATIVE [facility] Comment on above: Performed By: #### I NSULIN #### [facility] [address] [place] [address] Dr. Saray Souza Ketones Ql (U) TRACE Abnormal NEGATIVE [facility] Comment on above: Performed By: #### I NSULIN #### [facility] [address] [place] [address] Dr. Saray Souza LEUKOCYTES SMALL Abnormal NEGATIVE [facility] Comment on above: Performed By: #### I NSULIN #### [facility] [address] [place] [address] Dr. Saray Souza MUCOUS NONE SEEN Normal NONE SEEN [facility] Comment on above: Performed By: #### I NSULIN #### [facility] [address] [place] [address] Dr. Saray Souza Nitrite Ql (U) Negative Normal NEGATIVE [facility] Comment on above: Performed By: #### I NSULIN #### [facility] [address] [place] [address] Dr. Saray Souza pH (U) 5.5 [pH] Normal 5-9 [facility] Comment on above: Performed By: #### I NSULIN #### [facility] [address] [place] [address] Dr. Saray Souza RBC 0-2 Normal 0-2 [facility] Comment on above: Performed By: #### I NSULIN #### [facility] [address] [place] [address] Dr. Saray Souza SPEC GRAVITY >=1.030 Abnormal 1.005-<=1.025 [facility] Comment on above: Performed By: #### I NSULIN #### [facility] [address] [place] [address] Dr. Saray Souza UA PROTEIN Negative Normal NEGATIVE/ TRACE [facility] Comment on above: Performed By: #### I NSULIN #### [facility] [address] [place] [address] Dr. Saray Souza Urobilinogen Qn (U) 0.2 {Janine'U}/dL Normal 0.2 - 1. 0 [facility] Comment on above: Performed By: #### I NSULIN #### [facility] [address] [place] [address] Dr. Saray Souza WBC 5-10 Abnormal NONE SEEN [facility] Comment on above: Performed By: #### I NSULIN #### [facility] [address] [place] [address] Dr. Saray Souza INSULINon 02-14-2023 Insulin 12.8 uIU/mL Normal 2.6-24.9 [facility] Comment on above: Performed By: #### C BC #### [facility] [address] [place] [address] Dr. Saray Souza CBC AUTO DIFFon 02-13-2023 BASO # 0.0 103/ul Normal 0.0-0.1 [facility] Comment on above: Performed By: #### C BC #### [facility] [address] [place] [address] Dr. Saray Souza Basophils/100 WBC (Bld) 0.4 % Normal 0.2-2.0 [facility] Comment on above: Performed By: #### C BC #### [facility] [address] [place] [address] Dr. Saray Souza EO # 0.1 103/ul Normal 0.0-0.7 [facility] Comment on above: Performed By: #### C BC #### [facility] [address] [place] [address] Dr. Saray Souza Eosinophils/100 WBC (Bld) 1.6 % Normal 0.9-7.0 [facility] Comment on above: Performed By: #### C BC #### [facility] [address] [place] [address] Dr. Saray Souza Erythrocyte distribution width (RBC) [Ratio] 11.9 % Normal 11.0-15.0 [facility] Comment on above: Performed By: #### C BC #### [facility] [address] [place] [address] Dr. Saray Souza Hematocrit (Bld) [Volume fraction] 41.9 % Normal 36.0-48.0 [facility] Comment on above: Performed By: #### C BC #### [facility] [address] [place] [address] Dr. Saray Souza Hemoglobin (Bld) [Mass/Vol] 13.7 g/dL Normal 12.0-16.0 [facility] Comment on above: Performed By: #### C BC #### [facility] [address] [place] [address] Dr. Saray Souza IG # 0.02 10e3/ul Normal 0.00-0.03 [facility] Comment on above: Performed By: #### C BC #### [facility] [address] [place] [address] Dr. Saray Souza IG % 0.3 % Normal 0.0-0.5 [facility] Comment on above: Performed By: #### C BC #### [facility] [address] [place] [address] Dr. Saray Souza LYMPH # 1.4 103/ul Normal 1.2-3.8 [facility] Comment on above: Performed By: #### C BC #### [facility] [address] [place] [address] Dr. Saray Souza Lymphocytes/100 WBC (Bld) 18.6 % Critically low 20.5-60.0 [facility] Comment on above: Performed By: #### C BC #### [facility] [address] [place] [address] Dr. Saray Souza MANUAL DIFF REQ NO Normal [facility] Comment on above: Performed By: #### C BC #### [facility] [address] [place] [address] Dr. Saray Souza MCH (RBC) [Entitic mass] 29.9 pg Normal 26.7-34.0 [facility] Comment on above: Performed By: #### C BC #### [facility] [address] [address] [address] Saray Souza MCHC (RBC) [Mass/Vol] 32.7 g/dL Normal 29.9-35.2 [facility] Comment on above: Performed By: #### C BC #### [facility] [address] [place] [address] Dr. Saray Souza MCV (RBC) [Entitic vol] 91.5 fL Normal 81.0-99.0 [facility] Comment on above: Performed By: #### C BC #### [facility] [address] [place] [address] Dr. Saray Souza MONO # 0.6 103/ul Normal 0.3-0.8 [facility] Comment on above: Performed By: #### C BC #### [facility] [address] [place] [address] Dr. Saray Souza Monocytes/100 WBC (Bld) 8.3 % Normal 1.7-12.0 [facility] Comment on above: Performed By: #### C BC #### [facility] [address] [place] [address] Dr. Saray Souza NEUT # 5.5 103/ul Normal 1.4-6.5 [facility] Comment on above: Performed By: #### C BC #### [facility] [address] [place] [address] Dr. Saray Souza Neutrophils/100 WBC (Bld) 70.8 % Normal 43.0-75.0 [facility] Comment on above: Performed By: #### C BC #### [facility] [address] [place] [address] Dr. Saray Souza Platelet mean volume (Bld) [Entitic vol] 9.0 fL Critically low 9.5-13.5 [facility] Comment on above: Performed By: #### C BC #### [facility] [address] [place] [address] Dr. Saray Souza PLT 271 103/ul Normal 150-450 [facility] Comment on above: Performed By: #### C BC #### [facility] [address] [place] [address] Dr. Saray Souza RBC 4.58 106/ul Normal 4.20-5.40 [facility] Comment on above: Performed By: #### C BC #### [facility] [address] [place] [address] Dr. Saray Souza WBC 7.7 103/ul Normal 4.0-11.0 [facility] Comment on above: Performed By: #### C BC #### [facility] [address] [place] [address] Dr. Saray Souza FREE THYROXINE INDEX T7on FTI 2.56 Normal 1.30-4.50 [facility] Comment on above: Performed By: #### I NSULIN #### [facility] [address] [place] [address] Dr. Saray Souza T3U 36.0 % Normal 30.0-39.0 [facility] Comment on above: Performed By: #### I NSULIN #### [facility] [address] [place] [address] Dr. Saray Souza T4 [Mass/Vol] 7.10 ug/dL Normal 4.80-13.90 [facility] Comment on above: Performed By: #### I NSULIN #### [facility] [address] [place] [address] Dr. Saray Souza IRONon 02-13-2023 Iron [Mass/Vol] 130.0 ug/dL Normal 50.0-170.0 [facility] Comment on above: Performed By: #### C BCMAN #### [facility] [address] [place] [address] Dr. Saray Souza PROF 14(COMP METB)on 023 Albumin [Mass/Vol] 3.8 g/dL Normal 3.4-5.[address] [facility] Comment on above: Performed By: #### I NSULIN #### [facility] [address] [place] [address] Dr. Saray Souza Albumin/Globulin [Mass ratio] 1.2 {ratio} Normal [facility] Comment on above: Performed By: #### I NSULIN #### [facility] [address] [address] [address] Saray Souza ALP [Catalytic activity/Vol] 82 U/L Normal 46-116 [facility] Comment on above: Performed By: #### I NSULIN #### [facility] [address] [address] [address] Saray Souza ALT [Catalytic activity/Vol] 25 U/L Normal 14-59 [facility] Comment on above: Performed By: #### I NSULIN #### [facility] [address] [address] [address] Saray Souza Anion gap [Moles/Vol] 12.7 mmol/L Normal [facility] Comment on above: Performed By: #### I NSULIN #### [facility] [address] [place] [address] Dr. Saray Souza AST [Catalytic activity/Vol] 19 U/L Normal 15-37 [facility] Comment on above: Performed By: #### I NSULIN #### [facility] [address] [place] [address] Dr. Saray Souza Bilirubin [Mass/Vol] 0.3 mg/dL Normal 0.2-1.0 [facility] Comment on above: Performed By: #### I NSULIN #### [facility] [address] [place] [address] Dr. Saray Souza Calcium [Mass/Vol] 8.8 mg/dL Normal 8.5-10.[address] [facility] Comment on above: Performed By: #### I NSULIN #### [facility] [address] [place] [address] Dr. Saray Souza Chloride [Moles/Vol] 101 mmol/L Normal 98-107 [facility] Comment on above: Performed By: #### I NSULIN #### [facility] [address] [address] [address] Saray Souza CO2 [Moles/Vol] 27.3 mmol/L Normal 21.0-32.0 [facility] Comment on above: Performed By: #### I NSULIN #### [facility] [address] [place] [address] Dr. Saray Souza Creatinine [Mass/Vol] 0.69 mg/dL Normal 0.55-1.02 [facility] Comment on above: Performed By: #### I NSULIN #### [facility] [address] [place] [address] Dr. Saray Souza EGFR-AF SWEDISH >60 Normal >=60 [facility] Comment on above: Performed By: #### I NSULIN #### [facility] [address] [address] [address] Saray Souza EGFR-NON AF SWEDISH >60 Normal >=60 [facility] Comment on above: Performed By: #### I NSULIN #### [facility] [address] [place] [address] Dr. Saray Souza Globulin (S) [Mass/Vol] 3.3 g/dL Normal [facility] Comment on above: Performed By: #### I NSULIN #### [facility] [address] [place] [address] Dr. Saray Souza Glucose [Mass/Vol] 83 mg/dL Normal 74-106 [facility] Comment on above: Performed By: #### I NSULIN #### [facility] [address] [place] [address] Dr. Saray Souza Potassium [Moles/Vol] 4.0 mmol/L Normal 3.5-5.1 [facility] Comment on above: Performed By: #### I NSULIN #### [facility] [address] [place] [address] Dr. Saray Souza Protein [Mass/Vol] 7.1 g/dL Normal 6.4-8.2 [facility] Comment on above: Performed By: #### I NSULIN #### [facility] [address] [place] [address] Dr. Saray Souza Sodium [Moles/Vol] 137 mmol/L Normal 136-[address] [facility] Comment on above: Performed By: #### I NSULIN #### [facility] [address] [place] [address] Dr. Saray Souza Urea nitrogen [Mass/Vol] 10.0 mg/dL Normal 7.0-18.0 [facility] Comment on above: Performed By: #### I NSULIN #### [facility] [address] [place] [address] Dr. Saray Souza Urea nitrogen/Creatinine [Mass ratio] 14.5 mg/mg Normal [facility] Comment on above: Performed By: #### I NSULIN #### [facility] [address] [place] [address] Dr. Saray Souza TSHon 02-13-2023 TSH 2.745 uIU/mL Normal 0.358-3.740 [facility] Comment on above: Performed By: #### I NSULIN #### [facility] [address] [place] [address] Dr. Saray Souza AMYLASEon 02-04-2023 Amylase [Catalytic activity/Vol] 45 U/L Normal 25-115 [facility] Comment on above: Performed By: #### T SH, CMP, HSTROPN, LIPA, KELLE #### [facility] [address] [place] [address] Dr. Saray Souza CBC AUTO DIFFon 02-04-2023 BASO # 0.0 103/ul Normal 0.0-0.1 [facility] Comment on above: Performed By: #### C BC #### [facility] [address] [place] [address] Dr. Saray Souza Basophils/100 WBC (Bld) 0.4 % Normal 0.2-2.0 [facility] Comment on above: Performed By: #### C BC #### [facility] [address] [place] [address] Dr. Saray Souza EO # 0.1 103/ul Normal 0.0-0.7 [facility] Comment on above: Performed By: #### C BC #### [facility] [address] [place] [address] Dr. Saray Souza Eosinophils/100 WBC (Bld) 1.7 % Normal 0.9-7.0 [facility] Comment on above: Performed By: #### C BC #### [facility] [address] [place] [address] Dr. Saray Souza Erythrocyte distribution width (RBC) [Ratio] 12.0 % Normal 11.0-15.0 [facility] Comment on above: Performed By: #### C BC #### [facility] [address] [place] [address] Dr. Saray Souza Hematocrit (Bld) [Volume fraction] 42.3 % Normal 36.0-48.0 [facility] Comment on above: Performed By: #### C BC #### [facility] [address] [place] [address] Dr. Saray Souza Hemoglobin (Bld) [Mass/Vol] 13.9 g/dL Normal 12.0-16.0 [facility] Comment on above: Performed By: #### C BC #### [facility] [address] [place] [address] Dr. Saray Souza IG # 0.03 10e3/ul Normal 0.00-0.03 [facility] Comment on above: Performed By: #### C BC #### [facility] [address] [place] [address] Dr. Saray Souza IG % 0.4 % Normal 0.0-0.5 [facility] Comment on above: Performed By: #### C BC #### [facility] [address] [place] [address] Dr. Saray Souza LYMPH # 1.5 103/ul Normal 1.2-3.8 [facility] Comment on above: Performed By: #### C BC #### [facility] [address] [place] [address] Dr. Saray Souza Lymphocytes/100 WBC (Bld) 20.4 % Critically low 20.5-60.0 [facility] Comment on above: Performed By: #### C BC #### [facility] [address] [place] [address] Dr. Saray Souza MANUAL DIFF REQ NO Normal [facility] Comment on above: Performed By: #### C BC #### [facility] [address] [place] [address] Dr. Saray Souza MCH (RBC) [Entitic mass] 30.0 pg Normal 26.7-34.0 [facility] Comment on above: Performed By: #### C BC #### [facility] [address] [address] [address] Saray Souza MCHC (RBC) [Mass/Vol] 32.9 g/dL Normal 29.9-35.2 [facility] Comment on above: Performed By: #### C BC #### [facility] [address] [address] [address] Saray Souza MCV (RBC) [Entitic vol] 91.2 fL Normal 81.0-99.0 [facility] Comment on above: Performed By: #### C BC #### [facility] [address] [place] [address] Dr. Saray Souza MONO # 0.6 103/ul Normal 0.3-0.8 [facility] Comment on above: Performed By: #### C BC #### [facility] [address] [place] [address] Dr. Saray Souza Monocytes/100 WBC (Bld) 7.7 % Normal 1.7-12.0 [facility] Comment on above: Performed By: #### C BC #### [facility] [address] [place] [address] Dr. Saray Souza NEUT # 5.2 103/ul Normal 1.4-6.5 [facility] Comment on above: Performed By: #### C BC #### [facility] [address] [place] [address] Dr. Saray Souza Neutrophils/100 WBC (Bld) 69.4 % Normal 43.0-75.0 [facility] Comment on above: Performed By: #### C BC #### [facility] [address] [address] [address] Saray Souza Platelet mean volume (Bld) [Entitic vol] 9.0 fL Critically low 9.5-13.5 [facility] Comment on above: Performed By: #### C BC #### [facility] [address] [place] [address] Dr. Saray Souza PLT 292 103/ul Normal 150-450 [facility] Comment on above: Performed By: #### C BC #### [facility] [address] [place] [address] Dr. Saray Souza RBC 4.64 106/ul Normal 4.20-5.40 [facility] Comment on above: Performed By: #### C BC #### [facility] [address] [place] [address] Dr. Saray Souza WBC 7.5 103/ul Normal 4.0-11.0 [facility] Comment on above: Performed By: #### C BC #### [facility] [address] [place] [address] Dr. Saray Souza CULTURE URINEon 02-04-2023 CULTURE URINE Culture Observations : LIGHT GROWTH OF MIXED GENITAL CARMELO. NO POTENTIAL PATHOGENS SEEN. Normal [facility] Comment on above: Performed By: #### C BC #### [facility] [address] [place] [address] Dr. Saray Souza ER URINE PROFILEon 3 Bilirubin Ql (U) Negative Normal NEGATIVE [facility] Comment on above: Performed By: #### C BC #### [facility] [address] [place] [address] Dr. Saray Souza Clarity (U) CLEAR Normal CLEAR [facility] Comment on above: Performed By: #### C BC #### [facility] [address] [place] [address] Dr. Saray Souza Color (U) LT. YELLOW Normal YELLOW [facility] Comment on above: Performed By: #### C BC #### [facility] [address] [place] [address] Dr. Saray JHA A micrscopic examination will be performed if indicated. Normal [facility] Comment on above: Performed By: #### C BC #### [facility] [address] [place] [address] Dr. Saray Souza Glucose Ql (U) Negative Normal NEGATIVE [facility] Comment on above: Performed By: #### C BC #### [facility] [address] [place] [address] Dr. Saray Souza Hemoglobin Ql (U) Negative Normal NEGATIVE [facility] Comment on above: Performed By: #### C BC #### [facility] [address] [place] [address] Dr. Saray Souza Ketones Ql (U) Negative Normal NEGATIVE [facility] Comment on above: Performed By: #### C BC #### [facility] [address] [place] [address] Dr. Saray Souza LEUKOCYTES MODERATE Abnormal NEGATIVE [facility] Comment on above: Performed By: #### C BC #### [facility] [address] [place] [address] Dr. Saray Souza Nitrite Ql (U) Negative Normal NEGATIVE [facility] Comment on above: Performed By: #### C BC #### [facility] [address] [place] [address] Dr. Saray Souza pH (U) 5.5 [pH] Normal 5-9 [facility] Comment on above: Performed By: #### C BC #### [facility] [address] [place] [address] Dr. Saray Souza SPEC GRAVITY >=1.030 Abnormal 1.005-<=1.025 [facility] Comment on above: Performed By: #### C BC #### [facility] [address] [place] [address] Dr. Saray Souza UA PROTEIN Negative Normal NEGATIVE/ TRACE [facility] Comment on above: Performed By: #### C BC #### [facility] [address] [place] [address] Dr. Saray Souza UR MICRO IND INDICATED Normal [facility] Comment on above: Performed By: #### C BC #### [facility] [address] [place] [address] Dr. Saray Souza Urobilinogen Qn (U) 0.2 {Janine'U}/dL Normal 0.2 - 1. 0 [facility] Comment on above: Performed By: #### C BC #### [facility] [address] [place] [address] Dr. Saray Souza LIPASEon 02-04-2023 Lipase [Catalytic activity/Vol] 97.0 U/L Normal 73.0-393.0 [facility] Comment on above: Performed By: #### T SH, CMP, HSTROPN, LIPA, KELLE #### [facility] [address] [place] [address] Dr. Saray Souza URon 02-04-2023 , QUAL Negative Normal NEGATIVE [facility] Comment on above: Performed By: #### C BC #### [facility] [address] [place] [address] Dr. Saray Souza PROF 14(COMP METB)on 023 Albumin [Mass/Vol] 3.5 g/dL Normal 3.4-5.[address] [facility] Comment on above: Performed By: #### T SH, CMP, HSTROPN, LIPA, KELLE #### [facility] [address] [place] [address] Dr. Saray Souza Albumin/Globulin [Mass ratio] 1.2 {ratio} Normal [facility] Comment on above: Performed By: #### T SH, CMP, HSTROPN, LIPA, KELLE #### [facility] [address] [place] [address] Dr. Saray Souza ALP [Catalytic activity/Vol] 78 U/L Normal 46-116 [facility] Comment on above: Performed By: #### T SH, CMP, HSTROPN, LIPA, KELLE #### [facility] [address] [place] [address] Dr. Saray Souza ALT [Catalytic activity/Vol] 24 U/L Normal 14-59 [facility] Comment on above: Performed By: #### T SH, CMP, HSTROPN, LIPA, KELLE #### [facility] [address] [place] [address] Dr. Saray Souza Anion gap [Moles/Vol] 7.9 mmol/L Normal [facility] Comment on above: Performed By: #### T SH, CMP, HSTROPN, LIPA, KELLE #### [facility] [address] [place] [address] Dr. Saray Souza AST [Catalytic activity/Vol] 16 U/L Normal 15-37 [facility] Comment on above: Performed By: #### T SH, CMP, HSTROPN, LIPA, KELLE #### [facility] [address] [place] [address] Dr. Saray Souza Bilirubin [Mass/Vol] 0.3 mg/dL Normal 0.2-1.0 [facility] Comment on above: Performed By: #### T SH, CMP, HSTROPN, LIPA, KELLE #### [facility] [address] [place] [address] Dr. Saray Souza Calcium [Mass/Vol] 8.6 mg/dL Normal 8.5-10.[address] [facility] Comment on above: Performed By: #### T SH, CMP, HSTROPN, LIPA, KELLE #### [facility] [address] [place] [address] Dr. Saray Souza Chloride [Moles/Vol] 105 mmol/L Normal 98-107 [facility] Comment on above: Performed By: #### T SH, CMP, HSTROPN, LIPA, KELLE #### [facility] [address] [place] [address] Dr. Saray Souza CO2 [Moles/Vol] 28.9 mmol/L Normal 21.0-32.0 [facility] Comment on above: Performed By: #### T SH, CMP, HSTROPN, LIPA, KELLE #### [facility] [address] [place] [address] Dr. Saray Souza Creatinine [Mass/Vol] 0.67 mg/dL Normal 0.55-1.02 [facility] Comment on above: Performed By: #### T SH, CMP, HSTROPN, LIPA, KELLE #### [facility] [address] [place] [address] Dr. Saray Souza EGFR-AF SWEDISH >60 Normal >=60 [facility] Comment on above: Performed By: #### T SH, CMP, HSTROPN, LIPA, KELLE #### [facility] [address] [place] [address] Dr. Saray Souza EGFR-NON AF SWEDISH >60 Normal >=60 [facility] Comment on above: Performed By: #### T SH, CMP, HSTROPN, LIPA, KELLE #### [facility] [address] [place] [address] Dr. Saray Souza Globulin (S) [Mass/Vol] 3.0 g/dL Normal [facility] Comment on above: Performed By: #### T SH, CMP, HSTROPN, LIPA, KELLE #### [facility] [address] [place] [address] Dr. Saray Souza Glucose [Mass/Vol] 97 mg/dL Normal 74-106 [facility] Comment on above: Performed By: #### T SH, CMP, HSTROPN, LIPA, KELLE #### [facility] [address] [place] [address] Dr. Saray Souza Potassium [Moles/Vol] 3.8 mmol/L Normal 3.5-5.1 [facility] Comment on above: Performed By: #### T SH, CMP, HSTROPN, LIPA, KELLE #### [facility] [address] [place] [address] Dr. Saray Souza Protein [Mass/Vol] 6.5 g/dL Normal 6.4-8.2 [facility] Comment on above: Performed By: #### T SH, CMP, HSTROPN, LIPA, KELLE #### [facility] [address] [place] [address] Dr. Saray Souza Sodium [Moles/Vol] 138 mmol/L Normal 136-145 [facility] Comment on above: Performed By: #### T SH, CMP, HSTROPN, LIPA, KELLE #### [facility] [address] [place] [address] Dr. Saray Souza Urea nitrogen [Mass/Vol] 13.0 mg/dL Normal 7.0-18.0 [facility] Comment on above: Performed By: #### T SH, CMP, HSTROPN, LIPA, KELLE #### [facility] [address] [place] [address] Dr. Saray Souza Urea nitrogen/Creatinine [Mass ratio] 19.4 mg/mg Normal [facility] Comment on above: Performed By: #### T SH, CMP, HSTROPN, LIPA, KELLE #### [facility] [address] [place] [address] Dr. Saray Souza TROPONIN, HIGH SENSITIVITYon 02-04-2023 HSTROP 4.0 pg/mL Normal 4.0-51.3 [facility] Comment on above: Result Comment: CUT- OFF POINTS HAVE BEEN ESTABLISHED BASED ON THE FOURTH UNIVERSAL DEFINITIONS OF MYOCARDIAL INFARCTION. THE UPPER REFERENCE LIMIT (URL) OF TROPONIN, DEFINED THE 99TH PERCENTILE OF cTnI DISTRIBUTION IN A REFERENCE POPULATION, HAS BEEN CONFIRMED THE DECISION THRESHOLD FOR IA DIAGNOSIS. Performed By: #### T SH, CMP, HSTROPN, LIPA, KELLE #### [facility] [address] [place] [address] Dr. Saray Souza TSHon 02-04-2023 TSH 2.478 uIU/mL Normal 0.358-3.740 [facility] Comment on above: Performed By: #### T SH, CMP, HSTROPN, LIPA, KELLE #### [facility] [address] [place] [address] Dr. Saray Souza URINE MICROSCOPIC ONLYon BACTERIA MODERATE Abnormal NONE SEEN [facility] Comment on above: Performed By: #### C BC #### [facility] [address] [place] [address] Dr. Saray Souza Bacteria identified Cx Nom (U) INDICATED Normal [facility] Comment on above: Performed By: #### C BC #### [facility] [address] [place] [address] Dr. Saray Souza CAST NONE SEEN Normal NONE SEEN [facility] Comment on above: Performed By: #### C BC #### [facility] [address] [place] [address] Dr. Saray Souza Crystals LM Nom (Urine sed) NONE SEEN Normal NONE SEEN [facility] Comment on above: Performed By: #### C BC #### [facility] [address] [place] [address] Dr. Saray Souza Epithelial cells LM Ql (Urine sed) MODERATE Abnormal NONE SEEN /RARE [facility] Comment on above: Performed By: #### C BC #### [facility] [address] [place] [address] Dr. Saray Souza MUCOUS NONE SEEN Normal NONE SEEN [facility] Comment on above: Performed By: #### C BC #### [facility] [address] [place] [address] Dr. Saray Souza RBC 5-10 Abnormal 0-2 [facility] Comment on above: Performed By: #### C BC #### [facility] [address] [place] [address] Dr. Saray Souza WBC 10-20 Abnormal NONE SEEN [facility] Comment on above: Performed By: #### C BC #### [facility] [address] [place] [address] Dr. Saray Souza Covid-19 PCR ([facility])on 09-24 SARS-CoV-2 (COVID-19) RNA DAYDAY+probe Ql (Unsp spec) Not detected Normal NOT DETECTED [facility] Comment on above: Result Comment: When diagnostic [...] for this test is supported by the [place] of Health and Human Service's declaration that [...] By: #### C BC #### [facility] [address] [place] [address] Dr. Saray Souza INFLUENZA A AND B AGon 10-20 INFLUANEGH SEE BELOW Normal [facility] Comment on above: Result Comment: Nega tive for Flu A protein angiten. Infection due to Flu A cannot be ruled out. Flu A angiten in the sample may be below the detection limit of the test. Performed By: #### C BC #### [facility] [address] [place] [address] Dr. Saray Souza INFLUBNEGH SEE BELOW Normal [facility] Comment on above: Result Comment: Nega tive for Flu B protein antigen. Infection due to Flu B cannot be ruled out. Flu B antigen in the sample may be below the detection limit of the test. Performed By: #### C BC #### [facility] [address] [place] [address] Dr. Saray Souza INFLUENZA A AG Negative Normal NEGATIVE SEE COMMENT [facility] Comment on above: Performed By: #### C BC #### [facility] [address] [place] [address] Dr. Saray Souza INFLUENZA B AG Negative Normal NEGATIVE SEE COMMENT [facility] Comment on above: Performed By: #### C BC #### [facility] [address] [place] [address] Dr. Saray Souza INTERNAL CONTROLS Within Normal Limits Normal Wi thin Normal Limits [facility] Comment on above: Performed By: #### C BC #### [facility] [address] [place] [address] Dr. Saray Souza STREPT SCREENon 10-20-2022 STREP SCREEN A Positive Abnormal NEGATIVE [facility] Comment on above: Performed By: #### C BC #### [facility] [address] [place] [address] Dr. Saray Souza XR SHOULDER RT INJon [...] MENDEZ Date: 2022-07-18 17:05 Normal [facility] MRI SHOULDER RT WO CONon [...] MENDEZ Date: 2022-07-10 10:10 Normal [facility] XR ARTHRO SHLD RTon 07-10-20 [...] separate MRI arthrogram report. Electronically authenticated by: ADRIAAN MENDEZ Date: 2022-07-10 10:01 Normal [facility] No Panel Informationon 03-18 Right Eye Reliability was good. Findings include normal observations. Left Eye Reliability was good. Findings include normal observations. Notes I personally reviewed the visual zaldivar performed by this patient on 03/18/22. The visual zaldivar are normal OU with good fixation. 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 Francisco Ayers MD Normal [facility] Vital Signs Date Time Vital Sign Value Performing Clinician Facility 05-17-2025 14:18-0400 Body mass index (BMI) [Ratio] 47.1 kg/m2 Kelle BAE Work Phone: [facility] 05-17-2025 14:18-0400 Body weight 148.89 kg Kelle BAE Work Phone: [facility] 05-17-2025 14:18-0400 Diastolic blood pressure 96 mm[Hg] Kelle BAE Work Phone: [facility] 05-17-2025 14:18-0400 Systolic blood pressure 130 mm[Hg] Kelle BAE Work Phone: [facility] 2025 15:04-0400 Body mass index (BMI) [Ratio] 47.06 kg/m2 Graham Howell DO Work Phone: [facility] 2025 15:04-0400 Body weight 148.78 kg Graham Dante DO Work Phone: [facility] 2025 15:04-0400 Diastolic blood pressure 86 mm[Hg] Graham Dante DO Work Phone: [facility] 2025 15:04-0400 Systolic blood pressure 132 mm[Hg] Graham Adnte DO Work Phone: [facility] 04-27-2025 13:06-0400 Body mass index (BMI) [Ratio] 46.85 kg/m2 Kelle Mosley PA Work Phone: [facility] 04-27-2025 13:06-0400 Body weight 148.1 kg Kelle Melany PA Work Phone: [facility] 04-27-2025 13:06-0400 Diastolic blood pressure 90 mm[Hg] Kelle Melany PA Work Phone: [facility] 04-27-2025 13:06-0400 Systolic blood pressure 124 mm[Hg] Kelle Melany PA Work Phone: [facility] 04-12-2025 14:56-0400 Body mass index (BMI) [Ratio] 46.96 kg/m2 Graham Dante DO Work Phone: [facility] 04-12-2025 14:56-0400 Body weight 148.44 kg Graham Dante DO Work Phone: [facility] 04-12-2025 14:56-0400 Diastolic blood pressure 82 mm[Hg] Graham Dante DO Work Phone: [facility] 04-12-2025 14:56-0400 Systolic blood pressure 130 mm[Hg] Graham Dante DO Work Phone: [facility] 03-29-2025 15:44-0400 Body mass index (BMI) [Ratio] 45.99 kg/m2 Kelle Melany PA Work Phone: [facility] 03-29-2025 15:44-0400 Body weight 145.38 kg Kelle Melany PA Work Phone: [facility] 03-29-2025 15:44-0400 Diastolic blood pressure 84 mm[Hg] Kelle Melany PA Work Phone: [facility] 03-29-2025 15:44-0400 Systolic blood pressure 120 mm[Hg] Kelle Melany PA Work Phone: [facility] 03-15-2025 15:24-0400 Body mass index (BMI) [Ratio] 46.2 kg/m2 Graham Dante DO Work Phone: [facility] 03-15-2025 15:24-0400 Body weight 146.06 kg Graham Dante DO Work Phone: [facility] 03-15-2025 15:24-0400 Diastolic blood pressure 74 mm[Hg] Graham Dante DO Work Phone: [facility] 03-15-2025 15:24-0400 Systolic blood pressure 110 mm[Hg] Graham Dante DO Work Phone: [facility] 01-04-2025 16:08-0500 Body mass index (BMI) [Ratio] 45.77 kg/m2 Kelle Gould PA Work Phone: [facility] 01-04-2025 16:08-0500 Body weight 144.7 kg Kelle Gould PA Work Phone: [facility] 01-04-2025 16:08-0500 Diastolic blood pressure 78 mm[Hg] Kelle Melany PA Work Phone: [facility] 01-04-2025 16:08-0500 Systolic blood pressure 120 mm[Hg] Kelle Gould PA Work Phone: [facility] 12-27-2024 09:53-0500 Body mass index (BMI) [Ratio] 45.69 kg/m2 Kelle Melany PA Work Phone: [facility] 12-27-2024 09:53-0500 Body weight 144.43 kg Kelle Gould PA Work Phone: [facility] 12-27-2024 09:53-0500 Diastolic blood pressure 78 mm[Hg] Kelle Melany BAE Work Phone: [facility] 12-27-2024 09:53-0500 Systolic blood pressure 130 mm[Hg] Kelle Enriquezraul BAE Work Phone: [facility] 12-05-2024 15:49-0500 Body mass index (BMI) [Ratio] 45.92 kg/m2 Graham Dante DO Work Phone: [facility] 12-05-2024 15:49-0500 Body weight 145.15 kg Graham Dante DO Work Phone: [facility] 12-05-2024 15:49-0500 Diastolic blood pressure 70 mm[Hg] Graham Dante DO Work Phone: [facility] 12-05-2024 15:49-0500 Systolic blood pressure 120 mm[Hg] Graham Dante DO Work Phone: [facility] 12-02-2024 19:42-0500 Diastolic blood pressure 80 mm[Hg] [facility] 12-02-2024 19:42-0500 Systolic blood pressure 122 mm[Hg] Nic [facility]stevez MD [facility] 12-02-2024 19:40-0500 Body temperature 99.39 [degF] Nic Estevez MD Work Phone: [employer] 12-02-2024 19:38-0500 Heart rate 105 /min Nic Estevez MD [facility] 12-02-2024 19:38-0500 Respiratory rate 18 /min Nic Estevez MD [facility] 12-02-2024 19:38-0500 SaO2% (BldA) [Mass fraction] 99 % Nic Estevez MD Work Phone: [facility] 11-03-2024 13:25-0500 Body mass index (BMI) [Ratio] 46.4 kg/m2 [facility] Nurse [facility] 11-03-2024 13:25-0500 Body weight 146.69 kg [facility] Nurse [facility] 08-29-2024 10:53-0400 Body mass index (BMI) [Ratio] 45.89 kg/m2 Kelle Gould PA Work Phone: [facility] 08-29-2024 10:53-0400 Body weight 145.06 kg Kelle Gould PA Work Phone: [facility] 08-29-2024 10:53-0400 Diastolic blood pressure 70 mm[Hg] Kelle Gould PA Work Phone: [facility] 08-29-2024 10:53-0400 Systolic blood pressure 120 mm[Hg] Kelle Melany PA Work Phone: [facility] 07-26-2024 08:36-0400 Body height 177.8 cm Kelle Gould PA Work Phone: [facility] 07-26-2024 08:36-0400 Body mass index (BMI) [Ratio] 46.06 kg/m2 Kelle Melany PA Work Phone: [facility] 07-26-2024 08:36-0400 Body weight 145.6 kg Kelle Gould PA Work Phone: [facility] 07-26-2024 08:36-0400 Diastolic blood pressure 84 mm[Hg] Kelle Gould PA Work Phone: [facility] 07-26-2024 08:36-0400 Systolic blood pressure 130 mm[Hg] Kelle Gould PA Work Phone: [facility] 2024 09:04-0400 Blood Pressure Location JANNETH SMITH [facility] 2024 09:04-0400 Diastolic blood pressure 82 mm[Hg] JANNETH LUIS [facility] 2024 09:04-0400 Heart rate 74 /min JANNETH LUIS [facility] 2024 09:04-0400 Respiratory rate 16 /min JANNETH LUIS [facility] 2024 09:04-0400 Systolic blood pressure 125 mm[Hg] JANNETH LUIS [facility] 03-08-2024 14:09-0400 Blood Pressure Location Yonis NILL [facility] [place] 03-08-2024 14:09-0400 Diastolic blood pressure 84 mm[Hg] Yonis NILL [facility] [place] 03-08-2024 14:09-0400 Heart rate 76 /min Yonis NILL [facility] [place] 03-08-2024 14:09-0400 Respiratory rate 16 /min Yonis NILL [facility] [place] 03-08-2024 14:09-0400 Systolic blood pressure 118 mm[Hg] Yonis NILL [facility] [place] 01-19-2024 09:34-0500 Blood Pressure Location JANNETH LUIS [facility] 01-19-2024 09:34-0500 Diastolic blood pressure 84 mm[Hg] JANNETH LUIS [facility] 01-19-2024 09:34-0500 Heart rate 80 /min JANNETH LUIS [facility] 01-19-2024 09:34-0500 Respiratory rate 16 /min JANNETH LUIS [facility] 01-19-2024 09:34-0500 Systolic blood pressure 132 mm[Hg] JANNETH SMITH [facility] 12-02-2023 08:40-0500 Body height 180.34 cm Taniya Mary Grace Other [email or web address] Other 12-02-2023 08:40-0500 Body mass index (BMI) [Ratio] 45.1 kg/m2 Taniya Mary Grace Other [email or web address] Other 12-02-2023 08:40-0500 Body temperature 97.5 [degF] Taniya Mary Grace Other [email or web address] Other 12-02-2023 08:40-0500 Body weight 146.69 kg Taniya Mary Grace Other [email or web address] Other 12-02-2023 08:40-0500 Diastolic blood pressure 83 mm[Hg] Taniya Mary Grace Other [email or web address] Other 12-02-2023 08:40-0500 Respiratory rate 18 /min Taniya Mary Grace Other [email or web address] Other 12-02-2023 08:40-0500 SaO2% (BldA) [Mass fraction] 98 % Taniya Mary Grace Other [email or web address] Other 12-02-2023 08:40-0500 Systolic blood pressure 136 mm[Hg] Taniya Mary Grace Other [email or web address] Other 11-19-2021 15:30-0500 Body height 180.34 cm Nandini Pantoja Other [email or web address] Other 11-19-2021 15:30-0500 Body mass index (BMI) [Ratio] 41.56 kg/m2 Nandini Pantoja Other [email or web address] Other 11-19-2021 15:30-0500 Body weight 135.17 kg Nandini Pantoja Other [email or web address] Other 11-19-2021 15:30-0500 Diastolic blood pressure 76 mm[Hg] Nandini Pantoja Other [email or web address] Other 11-19-2021 15:30-0500 Systolic blood pressure 128 mm[Hg] Nandini Pantoja Other [email or web address] Other Encounters Encounter Date Encounter Type Care Provider Facility Start: 05-23-2025 End: 05-23-2025 Clinisync Result Encounter Graham Dante DO Work Phone: [facility] Unsolicited Start: 05-23-2025 End: 05-23-2025 Clinisync Result Encounter Graham Dante DO Work Phone: [facility] Unsolic[facility] Start: 05-22-2025 End: 05-22-2025 Clinisync Result Encounter Graham Dante DO Work Phone: [facility] Unsolicited Start: 05-22-2025 End: 05-22-2025 Clinisync Result Encounter Graham Dante DO Work [...] Comment on above: Third trimester preg mat ([facility]); 37 weeks gestation of ([facility]); Polyhydramnios affecting in third trimester ([facility]); H/O herpes zoster virus; induced hypertension, antepartum ([facility]); -induced hypertension in third trimester ([facility]) Start: 05-17-2025 End: 05-17-2025 ambulatory KELLE MOLSEY Not Available Start: 05-15-2025 End: 05-15-2025 Clinisync Result Encounter Graham Dante DO Work Phone: [facility] Unsolic[facility] Start: 05-15-2025 End: 05-15-2025 Clinisync Result Encounter Graham Dante DO Work Phone: [facility] Unsolicited Start: 2025 End: 2025 Office outpatient visit 15 minutes Graham Dante DO Work Phone: [facility] Comment on above: Third trimester preg mat ([facility]); 36 weeks gestation of ([facility]) Start: 2025 End: 2025 ambulatory GRAHAM DANTE [...] visit 15 minutes Kelle BAE Work Phone: [facility] Comment on above: Second trimester pre gnancy; 18 weeks gestation of ; Headache in , antepartum Start: 01-04-2025 End: 01-04-2025 ambulatory KELLE MOSLEY Not Available Start: 01-04-2025 End: 01-04-2025 Bamboo flowsheet Kelle BAE Work Phone: [facility] Start: 01-04-2025 End: 01-04-2025 Bamboo flowsheet Kelle BAE Work Phone: [facility] Start: 12-27-2024 End: 12-27-2024 Bamboo flowsheet Kelle BAE Work Phone: [facility] Start: 12-27-2024 End: 01-01-2025 Bamboo flowsheet Kelle BAE Work Phone: [facility] Start: 12-27-2024 End: 01-01-2025 Clinisync Result Encounter Kelle BAE Work Phone: [facility] External Department Unsolicited Start: 12-27-2024 End: 12-27-2024 Patient encounter procedure Kelle BAE Work Phone: [facility] Healthcare Start: 12-27-2024 End: 12-27-2024 Periodic preventive med est patient 18-39 yrs Kelle BAE Work Phone: [facility] Comment on above: 17 weeks gestation o f ; Second trimester ; Screening, , for anatomic survey; Exposure to STD; Vaginal discharge; Well woman exam with routine gynecological exam; Sinus congestion Start: 12-27-2024 End: 12-27-2024 ambulatory KELLE MOSLEY Not Available Start: 12-23-2024 End: 12-23-2024 Clinisync Result Encounter Graham Howell DO Work Phone: [facility] External Department Unsolicited Start: 12-23-2024 End: [...] patient visit Nic Estevez MD Work Phone: [facility] Emergency Department Comment on above: Abdominal cramping, bilateral lower quadrant (Primary Dx) Start: 11-25-2024 End: 11-25-2024 ambulatory JANNETH SMITH Facility:[facility] Start: 11-25-2024 End: 11-25-2024 Patient encounter procedure JANNETH SMITH [facility] Start: 11-03-2024 End: 11-03-2024 Office outpatient visit 5 minutes [facility] Dante Nurse [facility] Comment on above: GA: 9w3d Start: 11-03-2024 End: 11-03-2024 ambulatory KELLE MOSLEY Not Available Start: 10-27-2024 End: 10-27-2024 ambulatory JANNETH SMITH Facility:[facility] Start: 10-27-2024 End: 10-27-2024 Patient encounter procedure [facility] Start: 09-28-2024 End: 09-28-2024 Clinisync Result Encounter [...] Start: 2024 End: 2024 ambulatory Yonis MIRANDA Facility:[facility] Start: 2024 End: 2024 Patient encounter procedure JANNETH SMITH [facility] [place] Start: 04-27-2024 End: 04-27-2024 ambulatory MD Shashi Ashton Work Phone: [facility] Work Phone: Start: 04-27-2024 End: 04-27-2024 Departed Referred MD Shashi Ashton Work Phone: [facility] Start: 04-27-2024 End: 04-27-2024 ambulatory Yonis MIRANDA Facility:[id number] Start: 03-08-2024 End: 03-08-2024 ambulatory Yonis R LOGANL Facility: [place] Start: 03-08-2024 End: 03-08-2024 Patient encounter procedure Yonis MIRANDA General [facility] Nill/Said [place] Start: 02-09-2024 End: 02-09-2024 ambulatory Dieter REMY Facility:[facility] Start: 02-09-2024 End: 02-09-2024 Patient encounter procedure Dieter REMY [facility] Start: 01-19-2024 End: 01-19-2024 ambulatory JANNETH SMITH Facility:[facility] Start: 01-19-2024 End: 01-19-2024 Lab Drop off JANNETH SMITH [facility] Start: 01-19-2024 End: 01-19-2024 ambulatory JANNETH SMITH Facility:[facility] Start: 01-19-2024 End: 01-19-2024 Patient encounter procedure JANNETH SMITH [facility] [place] Start: 12-31-2023 ambulatory Yonis MIRANDA Facility:[facility] Start: 12-17-2023 End: 12-17-2023 ambulatory Taniya Mary Grace Other [email or web address] Other Start: 12-17-2023 Office outpatient vi sit 15 minutes Taniya Mary Grace [facility] Start: 12-07-2023 End: 12-07-2023 ambulatory Taniya Mary Grace Other [email or web address] Other Start: 12-07-2023 Telephone encounter Taniya Mary Grace [facility] Start: 12-02-2023 End: 12-02-2023 ambulatory Taniya Mary Grace Other [email or web address] Other Start: 12-02-2023 Office outpatient ne w 30 minutes Taniya Mary Grace [facility] Start: 04-17-2023 End: 04-17-2023 ambulatory SALMA MONET . Facility:[facility] Start: 04-06-2023 End: 04-07-[address] SHASHI ASHTON . Facility:[facility] Start: 04-04-2023 Encounter for genera l adult medical examination without abnormal findings DR SHASHI ASHTON . [facility] Start: 04-03-2023 End: 04-04-[address] SHASHI [...] Start: 03-18-2022 End: 03-18-2022 ambulatory UNKNOWN PROVIDER Facility:[facility] Start: 11-19-2021 End: 11-19-2021 ambulatory Nandini Pantoja Other [facility] [employer] Other Start: 11-19-2021 Office outpatient ne w 30 minutes Nandini Pantoja [facility] Gastroenterology Procedures Date Procedure Procedure Detail Performing Clinician Start: 05-23-2025 ALL CBC WITH AUTO DIFF Graham Dante DO Work Phone: Start: 05-22-2025 [facility] CBC WITH PLATEL ET NO DIFFERENTIAL Graham Dante DO Work Phone: Start: 05-19-2025 [facility] TOTAL PROTEIN 24 HOUR [...] Work Phone: Start: 04-25-2025 [facility] UA (CLEAN/CATCH) INSURANCE APPRAISER/MICRO IF IND. Graham Howell DO Work Phone: [...] 2) Shingles (RZV) Vaccine (1 of 2) [facility] Start: 07-09-2028 Screening for malign ant neoplasm of cervix [facility] Start: 12-27-2027 Screening for malign ant neoplasm of cervix Pap Smear [facility] Start: 07-24-2025 Influenza vaccination Influenz a Vaccine (Season Ended) [facility] Start: 05-24-2025 End: 05-24-2025 Patient encounter procedure 05/24/2025 2:00 PM EDT Routine [facility] [address] [place] [id number] Graham Howell, DO [address] [place] [address] [facility] Start: 05-17-2025 End: 05-17-2026 Alanine aminotransferase [Enzymatic activity/volume] in Serum or Plasma ALT Lab Routine induced hypertension, antepartum ([facility]) Expected: 05/17/2025 (Approximate), Expires: 05/17/2026 [facility] Comment on above: Expected: 05/17/2025 (Approximate), Expires: 05/17/2026 Start: 05-17-2025 End: 05-17-2026 Aspartate aminotransferase [Enzymatic activity/volume] in Serum or Plasma AST Lab Routine induced hypertension, antepartum ([facility]CC) Expected: 05/17/2025 (Approximate), Expires: 05/17/2026 [facility] Comment on above: Expected: 05/17/2025 (Approximate), Expires: 05/17/2026 Start: 05-17-2025 End: 05-17-2026 CBC W Auto Differential panel - Blood CBC and differential Lab Routine induced hypertension, antepartum ([facility]) Expected: 05/17/2025 (Approximate), Expires: 05/17/2026 [facility] Comment on above: Expected: 05/17/2025 (Approximate), Expires: 05/17/2026 Start: 05-17-2025 End: 05-17-2026 Creatinine [Mass/volume] in Serum or Plasma Creatinine Lab Routine induced hypertension, antepartum ([facility]) Expected: 05/17/2025 (Approximate), Expires: 05/17/2026 [facility] Work Phone: Comment on above: Expected: 05/17/2025 (Approximate), Expires: 05/17/2026 Start: 05-17-2025 End: 05-17-2026 Lactate dehydrogenase [Enzymatic activity/volume] in Serum or Plasma by Lactate to pyruvate reaction Lactate dehydrogenase Lab Routine induced hypertension, antepartum ([facility]) Expected: 05/17/2025, Expires: 05/17/2026 [facility] Comment on above: Expected: 05/17/2025 , Expires: 05/17/2026 Start: 05-17-2025 End: 05-17-2026 Protein, urine, 24 hour Protein, urine, 24 hour Lab Routine induced hypertension, antepartum ([facility]) Expected: 05/17/2025 (Approximate), Expires: 05/17/2026 [facility] Comment on above: Expected: 05/17/2025 (Approximate), Expires: 05/17/2026 Start: 05-17-2025 End: 05-17-2026 Pt and ptt Pt and ptt Lab Routine induced hypertension, antepartum ([facility]) Expected: 05/17/2025, Expires: 05/17/2026 [facility] Comment on above: Expected: 05/17/2025 , Expires: 05/17/2026 Start: 05-17-2025 End: 05-17-2026 Urate [Mass/volume] in Serum or Plasma Uric acid Lab Routine induced hypertension, antepartum ([facility]) Expected: 05/17/2025 (Approximate), Expires: 05/17/2026 [facility] Comment on above: Expected: 05/17/2025 (Approximate), Expires: 05/17/2026 Start: 05-17-2025 End: 05-17-2026 Urea nitrogen [Mass/volume] in Serum or Plasma BUN Lab Routine induced hypertension, antepartum ([facility]) Expected: 05/17/2025, Expires: 05/17/2026 [facility] Comment on above: Expected: 05/17/2025 , Expires: 05/17/2026 Start: 05-17-2025 End: 05-17-2025 Patient encounter procedure [facility] Comment on above: Arrived Start: 2025 End: 2025 Patient encounter procedure [facility] Comment on above: Arrived Start: 2025 End: 2026 CULTURE, GROUP B STREP WITH SUSCEPTIBLITY CULTURE, GROUP B STREP WITH SUSCEPTIBLITY Lab Routine Third trimester ([facility]) Expected: 2025, Expires: 2026 [facility] Work [...] PM EDT Routine [facility] [address] [phone] Kelle Mosley PA [address] [place] [address] [facility] Start: 03-08-2025 End: 03-08-2025 Patient encounter procedure 03/08/2025 3:30 PM EDT Routine [facility] [address] [phone] Kelle Mosley PA [address] [place] [address] [facility] Start: 02-06-2025 End: 02-06-2025 Patient encounter procedure 02/06/2025 3:10 PM EDT Routine [facility] [address] [phone] Graham Howell DO [address] [place] [address] [facility] Start: 01-23-2025 End: 01-23-2025 Professional / ancillary services management 01/23/2025 11:00 AM EST Ancillary Procedure [facility] [address] [place] [phone] [facility] Start: 01-04-2025 End: 01-04-2025 [...] for anatomic survey Expected: 12/27/2024, Expires: 12/27/2025 [facility] Comment on above: Expected: 12/27/2024 , Expires: 12/27/2025 Start: 12-27-2024 End: 12-27-2024 Patient encounter procedure 12/27/2024 9:30 AM EST Routine [facility] [address] [place] [phone] Kelle Mosley PA [address] [place] [address] Arrived [facility] Comment on above: Arrived Start: 12-05-2024 End: 12-05-2024 Patient encounter procedure [facility] Comment on above: Arrived Start: 11-28-2024 End: 11-28-2024 Patient encounter procedure 11/28/2024 9:30 AM EST Office Visit [facility] [address] [place] [phone] Kelle Mosley, PA [address] [place] [address] [facility] Start: 11-03-2024 End: 11-03-2025 ABO/Rh ABO/Rh Lab Routine Missed menses , unspecified gestational age Expected: 11/03/2024 (Approximate), Expires: 11/03/2025 [facility] Comment on above: Expected: 11/03/2024 (Approximate), [...] first trimester Expected: 11/03/2024 (Approximate), Expires: 11/03/2025 [facility] Comment on above: Expected: 11/03/2024 (Approximate), Expires: 11/03/2025 Start: 11-03-2024 End: 11-03-2024 ambulatory 11/03/2024 1:00 PM EST Initial [facility] [address] [place] [address] [facility] Start: 11-03-2024 End: 11-03-2024 Professional / ancillary services management 11/03/2024 12:30 PM EST Ancillary Procedure [facility] [address] [phone] [facility] Start: 08-29-2024 End: 08-29-2024 Patient encounter procedure 08/29/2024 10:50 AM EDT Office Visit [facility] [address] [phone] Kelle Mosley, PA [address] [place] [address] [place] [address] Arrived [facility] Comment on above: Arrived Start: 07-26-2024 End: 07-26-2024 Patient encounter procedure 07/26/2024 8:30 AM EDT Office Visit [facility] [address] [place] [address] Kelle Mosley, PA [address] [place] [address] [place] [address] Arrived [facility] Comment on above: Arrived Start: 07-24-2024 COVID-19 Vaccine ( season) COVID-19 Vaccine ( season) [facility] Start: 07-24-2024 Influenza vaccination Influenza Vacc ine (#1) [facility] Start: 06-23-2024 Influenza vaccination Flu vaccine (# 1) [facility] Start: 2023 Screening for malign ant neoplasm of cervix [facility] Start: 12-20-2021 Screening for malign ant neoplasm of cervix Pap smear [facility] Start: 2014 Screening for malign ant neoplasm of cervix [facility] Start: 2012 DTaP/Tdap/Td vaccine (1 - Tdap) DTaP/Tdap/Td vaccine (1 - Tdap) [facility] Start: 2012 Hepatitis B vaccine (1 of 3 - 19+ 3-dose series) Hepatitis B vaccine (1 of 3 - 19+ 3-dose series) [facility] Start: 2011 [facility] Start: 2011 Tetanus + diphtheria + acellular pertussis vaccine (product) [facility] Start: 2008 HIV screening HIV Test [facility] Start: 2006 Varicella vaccine (1 of 2 - 13+ 2-dose series) Varicella vaccine (1 of 2 - 13+ 2-dose series) [facility] Start: 2005 Depression Screen Depression Screen [facility] Start: 1998 COVID-19 Vaccine (1) COVID-19 Vaccin e (1) [facility] Bacteria identified in Urine by Culture Urine culture Microbiology Routine Missed menses Ordered: 11/03/2024 [facility] Comment on above: Ordered: 11/03/2024 CBC W Auto Different ial panel - Blood CBC and differential Lab Routine Missed menses , unspecified gestational age Ordered: 11/03/2024 [facility] Comment on above: Ordered: 11/03/2024 CHLAMYDIA TRACHOMATI S (GENITO/STI) CHLAMYDIA TRACHOMATIS (GENITO/STI) Lab Routine Exposure to STD Ordered: 12/27/2024 [facility] Comment on above: Ordered: 12/27/2024 Cytology Cervical or vaginal smear or scraping study Pap Smear Pathology and Cytology Routine Well woman exam with routine gynecological exam Ordered: 12/27/2024 [facility] Comment on above: Ordered: 12/27/2024 EKG 12 Lead EKG 12 Lead ECG STAT 12/02/2024 8:08 PM EST [facility] Hemoglobin A1c/Hemoglobin.total in Blood Hemoglobin A1c Lab Routine Missed menses , unspecified gestational age Ordered: 11/03/2024 [facility] Comment on above: Ordered: 11/03/2024 Hepatitis B virus hawkins rface Ag [Presence] in Serum or Plasma by Immunoassay Hepatitis B surface antigen Lab Routine Missed menses , unspecified gestational age Ordered: 11/03/2024 [facility] Comment on above: Ordered: 11/03/2024 Hepatitis C virus Ab [Presence] in Serum or Plasma by Immunoassay Hepatitis C antibody Lab Routine Missed menses , unspecified gestational age Ordered: 11/03/2024 [facility] Comment on above: Ordered: 11/03/2024 HIV-1/HIV-2 antigen/antibody combination immunoassay HIV-1 and HIV-2 antibodies Lab Routine Missed menses , unspecified gestational age Ordered: 11/03/2024 [facility] Comment on above: Ordered: 11/03/2024 Human papilloma viru s DNA [Presence] in Unspecified specimen by Probe with amplification HPV DNA probe, amplified Microbiology Routine Well woman exam with routine gynecological exam Ordered: 12/27/2024 [facility] Comment on above: Ordered: 12/27/2024 Neisseria gonorrhoea e DNA [Presence] in Unspecified specimen by DAYDAY with probe detection Neisseria gonorrhea DNA probe, direct Lab Routine Exposure to STD Ordered: 12/27/2024 [facility] Comment on above: Ordered: 12/27/2024 Reagin Ab [Presence] in Serum by RPR RPR Lab Routine Missed menses , unspecified gestational age Ordered: 11/03/2024 [facility] Comment on above: Ordered: 11/03/2024 Rubella antibody, IgG Rubella an tibody, IgG Lab Routine Missed menses , unspecified gestational age Ordered: 11/03/2024 [facility] Comment on above: Ordered: 11/03/2024 SURESWAB(R) ADVANCED VAGINITIS PLUS, TMA SURESWAB(R) ADVANCED VAGINITIS PLUS, TMA Pathology and Cytology Routine Vaginal discharge Ordered: 12/27/2024 [facility] Comment on above: Ordered: 12/27/2024 Immunizations Immunization Date Immunization Notes Care Provider Marino lopez 10-28-2022 influenza virus vaccine, unspecified formulation JANNETH SMITH [facility] 04-15-2021 SARS-CoV-2 (COVID-19 ) mRNA-1273 vaccine JANNETH SMITH [facility] 03-18-2021 SARS-CoV-2 (COVID-19 ) mRNA-1273 vaccine JANNETH SMITH [facility] 03-21-2014 influenza virus vaccine, unspecified formulation Estella Guerrero MD Work Phone: [facility] Payers Date Payer Category Payer Medicaid [facility] MEDICAID [employer] [employer] [id number] 2017-Present [address] [place] [address] [id number] 2017 Medicaid (Managed Care) [employer] [id number] 2017 Unknown [facility] HEALTH PLAN [employer] [employer] [id number] 2017-Present [id number] 1993 Unknown [id number] 2.16.840.1.120684.3.579.2. 732 1993 Unknown [id number] 2.16.840.1.077510.3.579.2. 593 1993 Unknown [id number] 2.16.840.1.996256.3.579.2. 593 1993 Unknown [id number] 2.16.840.1.627151.3.579.2. 593 1993 Unknown [id number] 2.16.840.1.099339.3.579.2. 593 1993 Unknown [id number] 2.16.840.1.153244.3.579.2. 593 1993 Unknown [id number] 2.16.840.1.435963.3.579.2. 593 1993 Unknown [id number] 2.16.840.1.453299.3.579.2. 593 1993 Unknown [id number] 2.16.840.1.364383.3.579.2. 593 1993 Unknown [id number] 2.16.840.1.038874.3.579.2. 593 1993 Unknown [id number] 2.16.840.1.673388.3.579.2. 593 1993 Unknown [id number] 2.16.840.1.096886.3.579.2. 593 1993 Unknown [id number] 2.16.840.1.371942.3.579.2. 593 1993 Unknown [id number] 2.16.840.1.829642.3.579.2. 1259 1993 Unknown [id number] 2.16.840.1.745343.3.579.2. 1259 1993 Unknown [id number] 2.16.840.1.804734.3.579.2. 1259 1993 Unknown [id number] 2.16.840.1.949188.3.579.2. 173 1993 Unknown [id number] 2.16.840.1.574608.3.579.2. 727 1993 Unknown [id number] 2.16.840.1.726430.3.579.2. 1993 Unknown [id number] 2.16840.1.517899.3.579.2. 1993 Unknown [id number] 2.16840.1.493910.3.579.2. 1993 Unknown [id number] 2.840.1.657319.3.579.2. 1993 Unknown [id number] 2.16840.1.150218.3.579.2. 1993 Unknown [id number] 2.840.1.690171.3.579.2. 1993 Unknown [id number] 2.840.1.917699.3.579.2. 1993 Unknown [id number] 2.0.1.865758.3.579.2. 1993 Unknown [id number] 2.840.1.158787.3.579.2. 1258 1993 Unknown [id number] 2.840.1.406300.3.579.2. 1258 1993 Unknown [id number] 2.840.1.338010.3.579.2. 1258 1993 Unknown [id number] 2840.1.218413.3.579.2. 1258 1993 Unknown [id number] 2.840.1.611667.3.579.2. 1258 1993 Unknown [id number] 2.840.1.731947.3.579.2. 1258 1993 Unknown [id number] 2.16840.1.674141.3.579.2. 1258 1993 Unknown [id number] 2.840.1.594377.3.579.2. 1258 1993 Unknown [id number] 2.16.840.1.790548.3.579.2. 1259 1993 Unknown [id number] 2.16.840.1.446966.3.579.2. 9 1993 Unknown [id number] 2.16.840.1.411678.3.579.2. 9 1993 Unknown [id number] 2.16.840.1.608272.3.579.2. 9 1993 Unknown [id number] 2.16.840.1.558451.3.579.2. 9 1993 Unknown [id number] 2.16.840.1.709616.3.579.2. 1259 1959 Medicaid [id number] Social History Date Type Detail Facility Tobacco smoking status [facility] Tobacco smoking consumption unknown [facility] Other Start: 1993 Sex Assigned At Not on file [facility] Start: 05-23-2024 End: 05-05-2025 Sex Assigned At [facility] Start: 05-03-2023 End: 01-19-2024 Tobacco smoking status Never smoked tobacco (finding) [facility] Tobacco smoking status Never [facility] Start: 1995 Sex Assigned At Female F [facility] Start: 07-26-2024 End: 2025 Alcoholic beverage intake Current drinker of alcohol (finding) [facility] Start: 05-23-2024 End: 05-05-2025 History of Social function [facility] Work Phone: Start: 05-03-2023 Alcohol Comment 1-2 drinks les s than monthly in the past year, Caffeine intake: 2-3 cups per day [facility] Start: 09-12-2024 [facility] Start: 12-20-2018 Tobacco use and exposure Smokeless tobacco non-user [facility] Start: 02-14-2019 Alcoholic beverage intake Current non-drinker of alcohol (finding) [facility] Functional Status Date Assessment Result Facility 2024 Functional Status N/A [facility] 03-08-2024 Functional Status N/A [facility] 01-19-2024 Functional Status N/A [facility] Clinical Notes 03-18-2022 to 05-17-2025 KATHIA Ledezma - 05/17/2025 1:50 PM EDTFelicitas Chun NP - 2025 2:30 PM KATHIA Sharif - 04/27/2025 1:00 PM EDGonzález Lacey LPN -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
--- NOTE | 2025-05-25 13:50 | PC.NURSE ---
Alexia,Aj and 3 day old Tobin arrive for follow up. Mom and dad are tired and have many questions about . Alexia admits to struggling as she bottle fed first child 8 years ago and really wants to breastfeed. It is a huge learning curve Majority of appointment focused on improving latch, positioning and recognizing deep latch from shallow latch. Alexia with VSS and assessment WNL. Biggest concern is sore nipples and bad latching Baby Tobin doing well 3 wets since midnight and large mec/green stool here at appointment. Parents good with routine baby care. States feeds are 2-6 hours apart. Immediately educated on importance of waking for feeds every 2-3 hours. Infants will naturally cue to feed every 1-3 hours. Parents state just thought we should not wake him Verbalized understanding. Aware that goal is to feed frequently to establish milk supply and for growth and development. Maternal breasts are firm, lumps in area towards axilla, gentle massage prior to feeds suggested and pt does well. Noted to start dripping milk easily. Infant to breast, mom tries to lean forward to baby laying in her lap. Assisted with positioning and breast support. Areolas noted to be edematous. Shown reverse pressure softening to assist. Left breast latch after multiple efforts. Baby inclined to suck own tongue during latch. LC assists with deep latch with audible swallows. Magdielien off breast for monm to independently latch. Uses better technique and pleased with her progress towards deeper latching. Able to latch and feed well on both breasts. I get what a better latch feels like Demo of breast care with tea bag, lanolin, shells or soothies. immense relief Will return 05/30/2025 for support. Family leaves ambulatory
[2025-05-25 13:51] VITALS: BP 127/79; PULSE 80; TEMP 36.8; O2SAT 96
== END 2025-05-25 13:55 | disposition home or self-care (01) ==
PROVIDERS: PCP Family Medicine; Visit Provider Obstetrics & Gynecology
DX: Z39.1 Encounter for care and examination of lactating mother (principal)

== ENCOUNTER 2025-05-30 08:42 | Outpatient (OUT) | payer OTHER, SELFPAY ==
--- OUTSIDE RECORDS SUMMARY | 2015-04-06 01:53 | XMS_ITS | Encounter Summary ---
Author Organization [facility] Address [address] [place] [address] Care Team Providers Care Water Filtration Technician Name Role Phone Shashi Hargrove MD Primary Care Provider [phone] Encounter Details Date Type Department Care Team (Late st Contact Info) Description 04/06/2015 1:53 AM EDT Hospital Encounter MTH PRE ADMIT [address] [phone] Abdi Mcgill MD [address] [facility] [address] [facility] [address] [place] [address] Social History Tobacco Use Types Packs/Day Years [...] UA YELLOW YEL 04/06/2015 12:25 PM EDT [facility] Turbidity UA CLEAR CLEAR 04/06/2015 12:25 PM EDT [facility] Glucose, Ur NEGATIVE NEG 04/06/2015 12:25 PM EDT [facility] Bilirubin Urine NEGATIVE NEG 5 12:25 PM EDT [facility] Ketones, Urine NEGATIVE NEG 04/06/2015 12:25 PM EDT [facility] Specific [place], UA >1.030(H) 1.010 - 1.020 04/06/2015 12:25 PM EDT [facility] Urine Hgb NEGATIVE NEG 04/06/2015 12:25 PM EDT [facility] pH, UA 6.0 5.0 - 9.0 04/06/2015 12:25 PM EDT [facility] Protein, UA NEGATIVE NEG 04/06/2015 12:25 PM EDT [facility] Urobilinogen, Urine Normal NORM 04/06/2015 12:25 PM EDT [facility] Nitrite, Urine NEGATIVE NEG 04/06/2015 12:25 PM EDT [facility] Leukocyte Esterase, Urine TRACE(A) NEG 04/06/2015 12:25 PM EDT [facility] Urinalysis Comments NOT REPORTED [facility] - 04/06/2015 12:25 PM EDT [facility] WBC, UA 0 TO 2 0 - 5 /HPF 04/06/2015 12:25 PM EDT [facility] RBC, UA None 0 - 2 /HPF 04/06/2015 12:25 PM EDT [facility] Casts UA NOT REPORTED 0 - 2 /LPF [facility] Crystals, UA NOT REPORTED NONE /HPF [facility] Epithelial Cells, UA 0 TO 2 0 - 25 /HPF 04/06/2015 12:25 PM EDT [facility] Renal Epithelial, UA NOT REPORTED 0 /HPF [facility] Bacteria, UA NOT REPORTED NONE [facility] Mucus, UA NOT REPORTED NONE [facility] Trichomonas NOT REPORTED NONE [facility] Amorphous, UA 1+(A) NONE 04/06/2015 12:25 PM EDT [facility] Comment: Performed at [address] [place] [address] ([phone] Other Observations UA NOT REPORTED NREQ [facility] Yeast, UA NOT REPORTED NONE [facility] URINE SPECIMEN / Unknown 04/06/2015 11:11 AM EDT 04/06/2015 11:12 AM EDT us Abdi Mcgill MD URINE ORDERABLES Final Result [facility] [address] [place] [address], [facility] [phone] [facility] * TYPE AND SCREEN (04/06/2015 11:11 AM EDT) Expiration Date 04/13/2015 5 11:47 AM EDT [facility] Arm Band Number [id number] 11:47 AM EDT [facility] ABO/Rh B POSITIVE 04/06/2015 11:47 AM EDT [facility] Antibody Screen NEGATIVE 5 12:19 PM EDT [facility] Comment: Performed at [address] [place] [address] ([phone] Blood (substance) BLOOD SPECIMEN / Unknown 04/06/2015 11:11 AM EDT 04/06/2015 11:12 AM EDT Abdi Mcgill MD BLOOD BANK TEST ORDERABLES Fi nal Result Performing Organization Address [facility]/ZIP Co de Phone Number [facility] [address] [place] [address] [facility] * HCG Qualitative, Serum (04/06/2015 11:11 AM EDT) Preg, Serum NEGATIVE NEG 04/06/2015 12:33 PM EDT [facility] Comment: Performed at [address] [place], [place] [id number] ([phone] Blood (substance) BLOOD SPECIMEN / Unknown 04/06/2015 11:11 AM EDT 04/06/2015 11:12 AM EDT Abdi Mcgill MD CHEMISTRY ORDERABLES Final Re sult Performing Organization Address [facility] Co de Phone Number [facility] [address] [place] [address] [facility] * (ABNORMAL) CBC auto differential (04/06/2015 11:11 AM EDT) [facility] WBC 6.9 4.5 - 13.5 k/uL 04/06/2015 11:31 AM EDT [facility] RBC 4.36 4.0 - 5.2 m/uL 04/06/2015 11:31 AM EDT [facility] Hemoglobin 12.6 12.0 - 16.0 g/dL 04/06/2015 11:31 AM EDT [facility] Hematocrit 37.5 36 - 46 % 04/06/2015 11:31 AM EDT [facility] MCV 86.2 80 - 100 fL 04/06/2015 11:31 AM EDT [facility] MCH 28.9 26 - 34 pg 04/06/2015 11:31 AM EDT [facility] MCHC 33.6 31 - 37 g/dL 04/06/2015 11:31 AM EDT [facility] RDW 13.8 12.1 - 15.2 % 04/06/2015 11:31 AM EDT [facility] Platelets 277 140 - 450 k/uL 04/06/2015 11:31 AM EDT [facility] MPV NOT REPORTED 6.0 - 12.0 fL [facility] Differential Type NOT REPORTED [facility] Seg Neutrophils 66(H) 34 - 64 % 5 11:31 AM EDT [facility] Lymphocytes 21(L) 25 - 45 % 04/06/2015 11:31 AM EDT [facility] Monocytes % 10 0 - 12 % 04/06/2015 11:31 AM EDT [facility] Eosinophils % 3 0 - 8 % 04/06/2015 11:31 AM EDT [facility] Basophils % 0 0 - 2 % 04/06/2015 11:31 AM EDT [facility] Neutrophils Absolute 4.50 1.8 - 7.7 k/uL 04/06/2015 11:31 AM EDT [facility] Lymphocytes Absolute 1.40 1.0 - 4.8 k/uL 04/06/2015 11:31 AM EDT [facility] Monocytes Absolute 0.70 0.0 - 1.0 k/uL 04/06/2015 11:31 AM EDT [facility] Eosinophils Absolute 0.20 0.0 - 0.4 k/uL 04/06/2015 11:31 AM EDT [facility] Basophils Absolute 0.00 0.0 - 0.2 k/uL 04/06/2015 11:31 AM EDT [facility] Comment: Performed at [address] [place] [address] ([phone] WBC Morphology NOT REPORTED [facility] RBC Morphology NOT REPORTED [facility] Platelet Estimate NOT REPORTED [facility] BLOOD SPECIMEN / Unknown 04/06/2015 11:11 AM EDT 04/06/2015 11:12 AM EDT us Abdi Mcgill MD HEMATOLOGY ORDERABLES Final R esult [facility] [address] [place] [address], [facility] [phone] [facility] documented in this encounter Visit Diagnoses Not on filedocumented in this encounter Care Teams Water Filtration Technician Relationship Specialty Start Date End Date Shashi Hargrove MD [address] [place] [address] PCP - General 04/05/15 documented as of this encounter
--- OUTSIDE RECORDS SUMMARY | 2025-05-17 13:50 | XMS_ITS | Encounter Summary ---
Author Organization [facility] Address [address] [place] [address] Care Team Providers Care Donkey Doctor Name Role Phone Shashi Hargrove MD Primary Care Provider [phone] Reason for Visit * Reason Comments Routine Visit Encounter Details Date Type Department Care Team (Latest Contact Info) Description 05/17/2025 1:50 PM EDT Routine [facility] [address] [place] [address] Kelle Mosley PA [address] [place], [facility]11 Third trimester (HHS-HCC); 37 weeks gestation of (HHS-HCC); Polyhydramnios affecting in third trimester (HHS-HCC); H/O herpes zoster virus; induced hypertension, antepartum (HHS-HCC); -induced hypertension in third trimester (HHS-HCC) Social History Tobacco Use Types Packs/Day Years [...] Sign Reading Time Taken Comments Blood Pressure 130/96 05/17/2025 2:18 PM EDT Pulse - - Temperature - - Respiratory Rate - - Oxygen Saturation - - Inhaled Oxygen Concentration - - Weight 149 kg (328 lb 4 oz) 05/17/2025 2:18 PM E DT Height - - Body Mass Index 47.1 07/26/2024 8:36 AM EDT documented in this encounter Progress Notes * KATHIA Ledezma - 05/17/2025 1:50 PM EDT Reason for Appointment: Patient ID: [...] abdominal pain 05/27/2023 Scoliosis 05/27/2023 Vaginal delivery ([facility]) 09/06/2014 Encounter for weight management 06/27/2024 Resolved [...] reviewed. Vitals: Estimated body mass index is 47.1 kg/m?? as calculated from the following: Height as of 07/26/24: 5' 10 . Weight as of this encounter: 328 lb 4 oz. BP: (!) 136/100 Patient's last menstrual period was 08/29/2024. ASSESSMENT & PLAN ICD-10-CM 1. Third trimester ([facility]) Z34.93 2. 37 weeks gestation of ([facility]) Z3A.37 3. Polyhydramnios affecting in third trimester ([facility]) O40.3XX0 4. H/O herpes zoster virus Z86.19 5. induced hypertension, antepartum ([facility]) O13.9 Creatinine Protein, urine, 24 hour Pt and ptt CBC and differential Uric acid Lactate dehydrogenase ALT AST BUN Creatinine Protein, urine, 24 hour Pt and ptt CBC and differential Uric acid Lactate dehydrogenase ALT AST BUN 6. -induced hypertension in third trimester ([facility]) O13.3 Return OB: Patient presents today for a routine obstetrics appointment. Patient is currently 37w2d . Patient states she is doing well but has complaints of being tired due to current . Patient has verbalizes frequent movement. labor precautions was discussed/given and patient was instructed to perform kick counts three times a day. Orders Placed This Encounter Procedures Creatinine Protein, urine, 24 hour Pt and ptt CBC and differential Uric acid Lactate dehydrogenase ALT AST BUN Bp are creeping up and patient states she is feeling off, we will send over for nst today and PIH panel Follow Up: Patient is to return to office in 1 week for routine OB appointment. Documented by KATHIA Ledezma on behalf of: KATHIA Ledezma documented in this encounter Plan of Treatment Scheduled Orders Name Type Priority Associated Diagnoses Orde r Schedule Creatinine Lab Routine induced hypertension, antepartum (HHS-HCC) Expected: 05/17/2025 (Approximate), Expires: 05/17/2026 Protein, urine, 24 hour Lab Routine induced hypertension, antepartum (HHS-HCC) Expected: 05/17/2025 (Approximate), Expires: 05/17/2026 Pt and ptt Lab Routine induced hypertension, antepartum (HHS-HCC) Expected: 05/17/2025, Expires: 05/17/2026 CBC and differential Lab Routine induced hypertension, antepartum (HHS-HCC) Expected: 05/17/2025 (Approximate), Expires: 05/17/2026 Uric acid Lab Routine induced hypertension, antepartum (HHS-HCC) Expected: 05/17/2025 (Approximate), Expires: 05/17/2026 Lactate dehydrogenase Lab Routine induced hypertension, antepartum (HHS-HCC) Expected: 05/17/2025, Expires: 05/17/2026 ALT Lab Routine induced hypertension, antepartum (HHS-HCC) Expected: 05/17/2025 (Approximate), Expires: 05/17/2026 AST Lab Routine induced hypertension, antepartum (HHS-HCC) Expected: 05/17/2025 (Approximate), Expires: 05/17/2026 BUN Lab Routine induced hypertension, antepartum (HHS-HCC) Expected: 05/17/2025, Expires: 05/17/2026 documented as of this encounter Visit Diagnoses Diagnosis Third trimester ([facility]) state, incidental 37 weeks gestation of ([facility]) Polyhydramnios affecting in third trimester ([facility]) H/O herpes zoster virus induced hypertension, antepartum (HHS-HCC) Transient hypertension of , antepartum -induced hypertension in third trimester (HHS-HCC) documented in this encounter Care Teams Donkey Doctor Relationship Specialty Start Date End Date Shashi Hargrove MD [address] [place] [address] PCP - General Family Medicine 05/11/23 documented as of this encounter
--- OUTSIDE RECORDS SUMMARY | 2025-05-30 08:46 | XMS_ITS | Encounter Summary ---
Author Organization [facility] Address [address] [facility] [place] [address] Care Team Providers Care Medical Appliance Maker Name Role Phone Shashi Hargrove MD Primary Care Provider [phone] Encounter Details Date Type Department Care Team ([facility] Contact Info) Description 05/03/2023 Abstract [facility] BCP OB [address] [place] [phone] Kelle Mosley PA [address] [place], [facility] Social History Tobacco Use Types Packs/Day Years [...] on filedocumented in this encounter Care Teams Medical Appliance Maker Relationship Specialty Start Date End Date Shashi Hargrove MD [address] [facility] [place] [address] PCP - General Family Medicine 05/11/23 documented as of this encounter
--- OUTSIDE RECORDS SUMMARY | 2025-05-30 08:46 | XMS_ITS | Encounter Summary ---
Author Organization [facility] Address [address] [place] [address] Care Team Providers Care Foreign Banknote Teller Name Role Phone Shashi Hargrove MD Primary Care Provider [phone] Encounter Details Date Type Department Care Team ([facility] st Contact Info) Description 06/02/2024 Abstract [facility] OB [address] [place] [phone] Graham Howell DO [address] [place], [place] [id number] Social History Tobacco Use Types Packs/Day Years [...] on filedocumented in this encounter Care Teams Foreign Banknote Teller Relationship Specialty Start Date End Date Shashi Hargrove MD [address] [facility] [place] [address] PCP - General Family Medicine 05/11/23 documented as of this encounter
--- OUTSIDE RECORDS SUMMARY | 2025-05-30 08:47 | XMS_ITS | Encounter Summary ---
Author Organization [facility] Address [address] [place] [address] Care Team Providers Care Odd Job Laborer Name Role Phone Shashi Hargrove MD Primary Care Provider [phone] Encounter Details Date Type Department Care Team ([facility] Contact Info) Description 05/22/2025 Clinisync Result Encounter NOMS External Department Unsolicited Graham Howell, DO [address] [place], [place] [phone] Social History Tobacco Use Types Packs/Day Years [...] Procedure Name Priority Date/Time Associated Diagnosis Comments HMHP CBC WITH PLATELET NO DIFFERENTIAL Routine 05/22/2025 5:30 AM EDT [facility] DRUG SCREEN RAPID (URINE) Routine 05/22/2025 5:22 AM EDT documented in this encounter Results * (ABNORMAL) HMHP CBC WITH PLATELET NO DIFFERENTIAL (05/22/2025 5:30 AM EDT) TBH WBC 11.0 4.0 - 11.0 10 3/uL TBH TBH RBC 4.05(L) 4.20 - 5.40 10 6/uL TBH TBH HGB 12.0 12.0 - 16.0 g/dL TBH TBH HCT 35.2(L) 36.0 - 48.0 % TBH TBH MCV 86.9 81.0 - 99.0 fL TBH TBH MCH 29.6 26.7 - 34.0 pg TBH TBH MCHC 34.1 29.9 - 35.2 g/dL TBH TBH RDW 12.8 11.0 - 15.0 % TBH TBH PLT 251 150 - 450 10 3/uL TBH TBH MPV 9.7 9.5 - 13.5 fL TBH 05/22/2025 5:30 AM EDT 05/22/2025 5:36 AM EDT Narrative CLINISYNC - 05/22/2025 5:40 AM EDT Graham Hernandezo DO CLINIS[facility] Final Result [facility] * [facility] DRUG SCREEN RAPID (URINE) (05/22/2025 5:22 AM EDT) CANNABINOID SCREEN URINE NEGATIVE NEGATIVE TBH PHENCYCLIDINE SCREEN URINE NEGATIVE NEGATIVE TBH COCAINE SCREEN URINE NEGATIVE NEGATIVE TBH METHAMPHETAMINES SCREEN URINE NEGATIVE NEGATIVE TBH OPIATE SCREEN URINE NEGATIVE NEGATIVE TBH AMPHETAMINE SCREEN URINE NEGATIVE NEGATIVE TBH BENZODIAZEPINES SCREEN URINE NEGATIVE NEGATIVE TBH TRICYCLIC ANTIDEPRESSANT URINE NEGATIVE NEGATIVE TBH METHADONE SCREEN URINE NEGATIVE NEGATIVE TBH BARBITURATES SCREEN URINE NEGATIVE NEGATIVE TBH OXYCODONE SCREEN URINE NEGATIVE NEGATIVE TBH BUPRENORPHINE SCREEN URINE NEGATIVE NEGATIVE TBH Comment: DRUG CLASS TEST SYSTEM CUT-OFF CONCENTRATIONS ARE FOLLOWS: AMP (Amphetamine): 500 ng/mL BAR (Barbiturates): 200 ng/mL BZO (Benzodiazepines): 150 ng/mL BUP (Buprenorphine): 10 ng/mL MALVIN (Cocaine): 150 ng/mL mAMP (Methamphetamine): 500 ng/mL MTD (Methadone): 200 ng/mL OPI (Opiates): 100 ng/mL OXY (Oxycodone): 100 ng/mL PCP (Phencyclidine): 25 ng/mL THC (Cannabinoids): 50 ng/mL TCA (Trycyclic Antidepressants): 300 ng/mL 05/22/2025 5:22 AM EDT 05/22/2025 5:36 AM EDT Narrative CLINISYNC - 05/22/2025 5:52 AM EDT us Graham Dante DO CLINIS[facility]NC Final [facility] documented in this encounter Visit Diagnoses Not on filedocumented in this encounter Care Teams Odd Job Laborer Relationship Specialty Start Date End Date Shashi Hargrove MD [address] [place] [address] PCP - General Family Medicine 05/11/23 documented as of this encounter
--- OUTSIDE RECORDS SUMMARY | 2025-05-30 08:47 | XMS_ITS | Encounter Summary ---
Author Organization [facility] Address [address] [place] [address] Care Team Providers Care Wax Coating Machine Tender Name Role Phone Shashi Hargrove MD Primary Care Provider [phone] Encounter Details Date Type Department Care Team ([facility] Contact Info) Description 05/17/2025 Clinisync Result Encounter NOMS External Department Unsolicited Deisy Howell, DO [address] [facility] [place] [address] Social History Tobacco Use Types Packs/Day Years [...] Diagnosis Comments US OB BPP W NON-STRESS 05/17/2025 7:13 PM EDT documented in this encounter Results * US OB BPP W NON-STRESS (05/17/2025 7:13 PM EDT) Anatomical Region Laterality Modality Other 05/17/2025 7:13 PM EDT Narrative 05/17/2025 7:15 [place] [address] Ultrasound Report Signed Patient: JOCELYN FREEMAN V MR#: [id number] : 1995 Acct:[id number] Age/Sex: 30 / F ADM Date: Loc: [facility] 250-[address]: Deisy Howell D.O. Ordering Physician: Deisy Howell D.O. Date of Service: 05/17/25 Procedure(s): US OB BPP w non-stress Accession Number(s): [id number] cc: Deisy Howell D.O.; Shashi Hargrove M.D. [address] [address] Patient Name: JOCELYN FREEMAN MRN: [id number] date: 1995 Sex: F Assigned Patient Location: [facility] Current Patient Location: [facility] Accession/Order Number: [id number] Exam Date: 05/17/2025 19:09 Report Date: 05/17/2025 19:13 At the request of: DEISY HOWELL DO Procedure: US OB BPP w non-stress Ultrasound biophysical profile INDICATION: GB COMPARISON: None FINDINGS/IMPRESSION: Single live intrauterine gestation with heart 132 bpm. BRISEYDA 23.28 cm Score 8/8 Impression dictated by: Weston Gonzalez M.D. 05/17/2025 7:13 PM Dictation Location: [place] [address] Electronically authenticated by: [id number] Y Date: 05/17/2025 19:13 Dictated By: Weston Gonzalez M.D. Signed By: 05/17/251914 DD/ 12 TD/TT: Senior Cobol Developer: Procedure Note Radiology, Radiologist, MD - 05/17/2025 The [place] [id number] Ultrasound Report Signed Patient: JOCELYN FREEMAN VMR#: [id number] : 1995Acct:[id number] Age/Sex: 30 / FADM Date: Loc: [facility] 250-[address]: Deisy Howell D.O. Ordering Physician: Deisy Howell D.O. Date of Service: 05/17/25 Procedure(s): US OB BPP w non-stress Accession Number(s): [id number] cc: Deisy Howell D.O.; Shashi Hagrrove M.D. [address] [address] Patient Name: JOCELYN FREEMAN MRN: [id number] date: 1995 Sex: F Assigned Patient Location: [facility] Current Patient Location: [facility] Accession/Order Number: [id number] Exam Date: 05/17/2025 19:09 Report Date: 05/17/2025 19:13 At the request of: DEISY HOWELL DO Procedure: US OB BPP w non-stress Ultrasound biophysical profile INDICATION: GB COMPARISON: None FINDINGS/IMPRESSION: Single live intrauterine gestation with bpm. BRISEYDA 23.28 cm Score 8/ Impression dictated by: Weston Gonzalez M.D. 05/17/2025 7:13 PM Dictation Location: [place] [address] Electronically authenticated by: [id number] Y Date: 9:13 Dictated By: Weston Gonzalez M.D. Signed By:05/17/251914 DD/ 12 TD/TT: Senior Cobol Developer: Deisy Howell DO [facility] IMAG[facility] Final Result documented in this encounter Visit Diagnoses Not on filedocumented in this encounter Care Teams Wax Coating Machine Tender Relationship Specialty Start Date End Date Shashi Hargrove MD [address] [place] [address] PCP - General Family Medicine 05/11/23 documented as of this encounter
--- OUTSIDE RECORDS SUMMARY | 2025-05-30 08:47 | XMS_ITS | Encounter Summary ---
Author Organization [facility] Address [address] [facility] [place] [address] Care Team Providers Care Cake Winder Name Role Phone Shashi Hargrove MD Primary Care Provider [phone] Encounter Details Date Type Department Care Team ([facility] Contact Info) Description 05/25/2025 Abstract [facility] OB [address] [place] [phone] Graham Howell DO [address] [facility] [place] [address] Social History Tobacco Use Types Packs/Day Years Used Date Smoking Tobacco: Never Alcohol Use Standard Drinks/Week Comments Yes 0 (1 standard drink = 0.6 oz pure alcohol) 1-2 drinks less than monthly in the past year, Caffeine intake: 2-3 cups per day PHQ-2 Answer Date Recorded Patient Health Questionnaire-2 Score 0 05/24/2025 Estimated Date of Delivery Comme nts Yes [...] on filedocumented in this encounter Care Teams Cake Winder Relationship Specialty Start Date End Date Shashi Hargrove MD [address] [place] [address] PCP - General Family Medicine 05/11/23 documented as of this encounter
--- OUTSIDE RECORDS SUMMARY | 2025-05-30 08:47 | XMS_ITS | Encounter Summary ---
Author Organization Alex Sultanaelise [facility] Address [address] [place] [address] Care Team Providers Care Vp Of Marketing Name Role Phone Shashi Hargrove MD Primary Care Provider [phone] Encounter Details Date Type Department Care Team ([facility] st Contact Info) Description 09/10/2014 FollowUp Telephone Encounter [facility] Labor and Delivery [address] [place], [place] [phone] Delaney Mccray RN Social History Tobacco Use [...] 19 y.o. Call made 09/10/2014 1405 To [phone] (home) [] No answer [] Message left [...] your baby had an appointment with the skiver machine operator yet? scheduled this week Have you made [...] there. Arpita and Katina were especially great. [place] that Katina really went the extra mile to make sure we were comfortable. Was there anything we could have done to improve your stay? No documented in this encounter Plan of Treatment Not on file documented as of this encounter Visit Diagnoses Not on filedocumented in this encounter Care Teams Vp Of Marketing Relationship Specialty Start Date End Date Shashi Hargrove MD [address] [place] [address] PCP - General 04/05/15 documented as of this encounter
--- OUTSIDE RECORDS SUMMARY | 2025-05-30 08:47 | XMS_ITS | Encounter Summary ---
Author Organization [facility] Address [address] [place] [address] Care Team Providers Care Graphic Art Technician Name Role Phone Shashi Hargrove MD Primary Care Provider [phone] Encounter Details Date Type Department Care Team ([facility] Contact Info) Description 05/17/2025 Clinisync Result Encounter NOMS External Department Unsolicited Kelle Mosley, KATHIA [address] [place] [address] [place], [place] [phone] Social History Tobacco Use Types Packs/Day Years [...] Procedure Name Priority Date/Time Associated Diagnosis Comments TBH CREATININE Routine 05/17/2025 4:15 PM EDT [facility] PROTHROMBIN TIME INR W/O COUM Routine 05/17/2025 4:15 PM EDT [facility] AST Routine 05/17/2025 4:15 PM EDT [facility] APTT Routine 05/17/2025 4:15 PM EDT [facility] ALT Routine 05/17/2025 4:15 PM EDT ALL URIC ACID Routine 05/17/2025 4:15 PM EDT ALL LDH Routine 05/17/2025 4:15 PM EDT ALL CBC WITH AUTO DIFF Routine 05/17/2025 4:15 PM EDT ALL BUN Routine 05/17/2025 4:15 PM EDT documented in this encounter Results * [facility] ALT (05/17/2025 4:15 PM EDT) ALANINE AMINOTRANSFERASE 15 14 - 59 U/L TBH 05/17/2025 4:15 PM EDT 05/17/2025 6:17 PM EDT Narrative CLINISYNC - 05/17/2025 6:26 PM EDT us Graham Howell DO CLINISYNC Final Result CLINISYNC TBH * (ABNORMAL) ALL LDH (05/17/2025 4:15 PM EDT) LACTATE DEHYDROGENASE 74(L) 81 - 234 U/L TBH 05/17/2025 4:15 PM EDT 05/17/2025 4:16 PM EDT Narrative CLINISYNC - 05/17/2025 5:10 PM EDT us Kelle BAE CLINISYNC Final Result CLINISYNC TB * (ABNORMAL) CCF AST (05/17/2025 4:15 PM EDT) ASPARTATE AMINO TRANSFERASE 12(L) 15 - 37 U/L TBH 05/17/2025 4:15 PM EDT 05/17/2025 4:16 PM EDT Narrative CLINISYNC - 05/17/2025 5:10 PM EDT Kelle BAE CLINISYNC Final Result Performing Organization Address City/[facility]/ZIP Co de Phone Number CLINISYNC TBH * ALL URIC ACID (05/17/2025 4:15 PM EDT) URIC ACID 3.7 2.6 - 6.0 mg/dL TB 05/17/2025 4:15 PM EDT 05/17/2025 4:16 PM EDT Narrative CLINISYNC - 05/17/2025 5:10 PM EDT Kelle BAE CLINISYNC Final Result Performing Organization Address [facility] Co de Phone Number CLINISYNC TBH * (ABNORMAL) TBH CREATININE (05/17/2025 4:15 PM EDT) CREATININE 0.48(L) 0.55 - 1.02 mg/dL TBH TBH EGFR-AF BOTSWANAN >60 >=60 mL/min/1.7 3m 2 TBH TBH EGFR-NON AF BOTSWANAN >60 >=60 mL/min/1.7 3m 2 TBH 05/17/2025 4:15 PM EDT 05/17/2025 4:16 PM EDT Narrative CLINISYNC - 05/17/2025 5:10 PM EDT Kelle BAE CLINISYNC Final Result CLINISYNC TB * (ABNORMAL) ALL BUN (05/17/2025 4:15 PM EDT) BLOOD UREA NITROGEN 6.0(L) 7.0 - 18.0 mg/dL TBH 05/17/2025 4:15 PM EDT 05/17/2025 4:16 PM EDT Narrative CLINISYNC - 05/17/2025 5:10 PM EDT Kelle BAE RUIZ Final Result Performing Organization Address City/[facility]/ZIP Co de Phone Number CLINVANESSANC TB * CCF APTT (05/17/2025 4:15 PM EDT) PARTIAL THROMBOPLASTIN TIME 25.1 22.3 - 36.2 sec TB 05/17/2025 4:15 PM EDT 05/17/2025 4:16 PM EDT Narrative CLINISYNC - 05/17/2025 5:10 PM EDT us Kelle MELCHOR Final Result Performing Organization Address [facility] de Phone Number RUIZ TB * [facility] PROTHROMBIN TIME INR W/O COUM (05/17/2025 4:15 PM EDT) PROTHROMBIN TIME 9.8 9.0 - 11.6 sec TBH TBH INR <0.93 TBH Comment: DESIRED INR: 2.0-3.0 CONDITIONS NOT LISTED BELOW 2.5-3.5 FOR PROSTHETIC HEART VALVE REPLACEMENT 2.5-3.5 RECURRENT THROMBOSIS 05/17/2025 4:15 PM EDT 05/17/2025 4:16 PM EDT Narrative CLINISYNC - 05/17/2025 5:10 PM EDT Kelle PAIZTUAN Final Result Performing Organization Address City/[facility]/ZIP Co de Phone Number RUIZ TB * (ABNORMAL) ALL CBC WITH AUTO DIFF (05/17/2025 4:15 PM EDT) TBH WBC 10.4 4.0 - 11.0 10 3/uL TBH TBH RBC 4.03(L) 4.20 - 5.40 10 6/uL TBH TBH HGB 11.8(L) 12.0 - 16.0 g/dL TBH TBH HCT 35.2(L) 36.0 - 48.0 % TBH TBH MCV 87.3 81.0 - 99.0 fL TBH TBH MCH 29.3 26.7 - 34.0 pg TBH TBH MCHC 33.5 29.9 - 35.2 g/dL TBH TBH RDW 12.8 11.0 - 15.0 % TBH TBH PLT 253 150 - 450 10 3/uL TBH TBH MPV 9.2(L) 9.5 - 13.5 fL TBH NEUTROPHILS PERCENT AUTO 77.2(H) 43.0 - 75.0 % TBH LYMPHOCYTES PERCENT AUTO 14.5(L) 20.5 - 60.0 % TBH MONOCYTES PERCENT AUTO 6.9 1.7 - 12.0 % TBH TBH EO % 0.8(L) 0.9 - 7.0 % TBH BASOPHILS PERCENT AUTO 0.1(L) 0.2 - 2.0 % TBH IMMATURE GRANULOCYTES PCT AUTO 0.5 0.0 - 0.5 % TBH NEUTROPHILS ABSOLUTE AUTO 8.0(H) 1.4 - 6.5 10 3/uL TBH LYMPHOCYTES ABSOLUTE AUTO 1.5 1.2 - 3.8 10 3/uL TBH MONOCYTES ABSOLUTE AUTO 0.7 0.3 - 0.8 10 3/uL TBH TBH EO # 0.1 0.0 - 0.7 10 3/uL TBH BASOPHILS ABSOLUTE AUTO 0.0 0.0 - 0.1 10 3/uL TBH IMMATURE GRANULOCYTES ABS AUTO 0.05(H) 0.00 - 0.03 10 3/uL TBH 05/17/2025 4:15 PM EDT 05/17/2025 4:16 PM EDT Narrative CLINISYNC - 05/17/2025 4:48 PM EDT us Kelle BAE CLINISYNC Final Result CLINISYNC TB documented in this encounter Visit Diagnoses Not on filedocumented in this encounter Care Teams Graphic Art Technician Relationship Specialty Start Date End Date Shashi Hargrove MD [address] [place] [address] PCP - General Family Medicine 05/11/23 documented as of this encounter
--- OUTSIDE RECORDS SUMMARY | 2025-05-30 08:47 | XMS_ITS | Encounter Summary ---
Author Organization [facility] Address [address] [facility] [place] [address] Care Team Providers Care Parts Coordinator Name Role Phone Shashi Hargrove MD Primary Care Provider [phone] Encounter Details Date Type Department Care Team ([facility] Contact Info) Description 01/10/2025 Orders Only [facility] BCP OB [address] [employer] [address] [place] [address] Aleida Colon LPN [address] [employer] [place] [phone] Social History Tobacco Use Types Packs/Day Years [...] on filedocumented in this encounter Care Teams Parts Coordinator Relationship Specialty Start Date End Date Shashi Hargrove MD [address] [place] [address] PCP - General Family Medicine 05/11/23 documented as of this encounter
--- OUTSIDE RECORDS SUMMARY | 2025-05-30 08:47 | XMS_ITS | Encounter Summary ---
Author Organization [facility] Address [address] [place] [address] Care Team Providers Care Induction Coordination Engineer Name Role Phone Shashi Hargrove MD Primary Care Provider [phone] Encounter Details Date Type Department Care Team ([facility] Contact Info) Description 05/23/2025 Clinisync Result Encounter NOMS External Department Unsolicited Graham Howell, DO [address] [facility] [address] [place], [place] [phone] Social History Tobacco Use Types Packs/Day Years [...] Procedure Name Priority Date/Time Associated Diagnosis Comments ALL CBC WITH AUTO DIFF Routine 05/23/2025 6:08 AM EDT documented in this encounter Results * (ABNORMAL) ALL CBC WITH AUTO DIFF (05/23/2025 6:08 AM EDT) Pathologist [facility] WBC 17.0(H) 4.0 - 11.0 10 3/uL TBH TBH RBC 3.95(L) 4.20 - 5.40 10 6/uL TBH TBH HGB 11.6(L) 12.0 - 16.0 g/dL TBH TBH HCT 34.5(L) 36.0 - 48.0 % TBH TBH MCV 87.3 81.0 - 99.0 fL TBH TBH MCH 29.4 26.7 - 34.0 pg TBH TBH MCHC 33.6 29.9 - 35.2 g/dL TBH TBH RDW 12.6 11.0 - 15.0 % TBH TBH PLT 243 150 - 450 10 3/uL TBH TBH MPV 9.8 9.5 - 13.5 fL TBH NEUTROPHILS PERCENT AUTO 80.9(H) 43.0 - 75.0 % TBH LYMPHOCYTES PERCENT AUTO 11.6(L) 20.5 - 60.0 % TBH MONOCYTES PERCENT AUTO 6.8 1.7 - 12.0 % TBH TBH EO % 0.1(L) 0.9 - 7.0 % TBH BASOPHILS PERCENT AUTO 0.1(L) 0.2 - 2.0 % TBH IMMATURE GRANULOCYTES PCT AUTO 0.5 0.0 - 0.5 % TBH NEUTROPHILS ABSOLUTE AUTO 13.8(H) 1.4 - 6.5 10 3/uL TBH LYMPHOCYTES ABSOLUTE AUTO 2.0 1.2 - 3.8 10 3/uL TBH MONOCYTES ABSOLUTE AUTO 1.2(H) 0.3 - 0.8 10 3/uL TBH TBH EO # 0.0 0.0 - 0.7 10 3/uL TBH BASOPHILS ABSOLUTE AUTO 0.0 0.0 - 0.1 10 3/uL TBH IMMATURE GRANULOCYTES ABS AUTO 0.08(H) 0.00 - 0.03 10 3/uL TBH 05/23/2025 6:08 AM EDT 05/23/2025 6:22 AM EDT Narrative CLINISYNC - 05/23/2025 6:35 AM EDT us Graham Dante DO CLINISYNC Final Result CLINISYNC TB documented in this encounter Visit Diagnoses Not on filedocumented in this encounter Care Teams Induction Coordination Engineer Relationship Specialty Start Date End Date Shashi Hargrove MD [address] [place] [address] PCP - General Family Medicine 05/11/23 documented as of this encounter
--- OUTSIDE RECORDS SUMMARY | 2025-05-30 08:47 | XMS_ITS | Encounter Summary ---
Author Organization [facility] Address [address] [place] [address] Care Team Providers Care Post Doc Fellowship Name Role Phone Shashi Hargrove MD Primary Care Provider [phone] Encounter Details Date Type Department Care Team ([facility] Contact Info) Description 05/24/2025 Patient Outreach [facility] [address] [place] [phone] Kelle Craig LPN [address] [place] [address] Social History Tobacco Use Types Packs/Day Years [...] pleasure in doing things Not at all 05/24/2025 11:02 AM EDT Kelle Craig LP N Feeling down, depressed, or hopeless Not at all 05/24/2025 11:02 AM EDT Kelle Craig LP N Patient Health Questionnaire -2 Score 0 05/24/2025 11:02 AM EDT Kelle Craig LP N documented as of this encounter Progress Notes * Kelle Craig LPN - 05/24/2025 11:00 AM EDT Images from the original note were not included. Flowsheet Row Patient Outreach from 05/24/2025 in [facility] with Kelle Craig LPN Hospital Information ED, Hospital or Usp Facility Discharge? Hospital Patient has been contacted within two business days of discharge Yes Diagnosis Discharge Date 05/23/25 Discharged To: Home Setting Discharge Hospital [facility] Engagement Call Start Time 1100 Admission Date 05/22/25 Medications Discharge medications reviewed and reconciled from hospital? Yes Is the patient having any side effects they believe may be caused by any medication additions or changes? No Does the patient have all medications ordered at discharge? Yes Nursing Interventions No intervention needed Is the patient taking all medications as directed (includes completed medication regime)? Yes Nursing Interventions Nurse provided patient education Appointments Does the patient have a primary care provider? Yes Does the patient have any upcoming specialty appointments? No [PPV encouraged] Self Management Patient Teaching Does the patient have access to their discharge instructions? Yes Nursing Interventions Reviewed instructions with patient What is the patient's perception of their health status since discharge? Improving Is the patient/caregiver able to teach back the hierarchy of who to call/visit for symptoms/problems? PCP, Specialist, Home Health nurse, Urgent Care, ED, 911 Yes Wrap Up Call End Time 1115 ADRIANA Complete. Rodolfo to pt. Pt reports she is not taking OTC pain relievers. Pt describes bleeding as regular flow and only large clot was first thing in AM after lying down for several hours. Bowels are regular with Colace. Pt denies any depression or hopelessness but reports some happy tears. Pt currently taking Zoloft. Pt currently baby. Baby has peds appt 05/25/25. Pt denies any questions, concerns or needs for baby. Reinforced techniques to assist with latching. Pt reports she has car seat, crib, diaper and wipes. Meds reconciled. documented in this encounter Plan of Treatment Not on file documented as of this encounter Visit Diagnoses Diagnosis (spontaneous vaginal delivery) ([facility])- Primary Normal delivery documented in this encounter Care Teams Post Doc Fellowship Relationship Specialty Start Date End Date Shashi Hargrove MD [address] [place] [address] PCP - General Family Medicine 05/11/23 documented as of this encounter
--- OUTSIDE RECORDS SUMMARY | 2025-05-30 08:47 | XMS_ITS | Encounter Summary ---
Author Organization [facility] Address [address] [place] [address] Care Team Providers Care Fiberglass Container Winding Operator Name Role Phone Shashi Hargrove MD Primary Care Provider [phone] Encounter Details Date Type Department Care Team ([facility] Contact Info) Description 06/28/2024 Clinisync Result Encounter [facility] External Department Unsolicited Deisy Howell, DO [address] [place], [place] [phone] Social History Tobacco Use Types Packs/Day Years [...] AM EDT Narrative 06/28/2024 8:09 AM EDT The [address] [address] Ultrasound Report Signed Patient: JOCELYN FREEMAN V MR#: [id number] : 1995 Acct:[id number] Age/Sex: 29 / F ADM Date: 06/27/24 Loc: [facility] Attending Dr: Deisy Howell D.O. Ordering Physician: Deisy Howell D.O. Date of Service: 06/27/24 Procedure(s): US pelvis transvaginal Accession Number(s): [id number] cc: Deisy Howell D.O.; Shashi Hargrove M.D. The [place] [id number] Patient Name: JOCELYN FREEMAN MRN: [id number] date: 1995 Sex: F Assigned Patient Location: [facility] Current Patient Location: Accession/Order Number: [id number] Exam Date: 06/27/2024 09:02 Report Date: 06/28/2024 [...] M.D. Signed By: 06/28/24808 DD/ 6 TD/TT: Microbiology Manager: Procedure Note Radiology, Radiologist, MD - 06/28/2024 [place] [address] Ultrasound Report Signed Patient: JOCELYN FREEMAN VMR#: [id number] : 1995Acct:[id number] Age/Sex: 29 / FADM Date: 06/27/24 Loc: [facility] Attending Dr: Deisy Howell D.O. Ordering Physician: Deisy Howell D.O. Date of Service: 06/27/24 Procedure(s): US pelvis transvaginal Accession Number(s): [id number] cc: Deisy Howell D.O.; Shashi Hargrove M.D. [place] [id number] Patient Name: JOCELYN FREEMAN MRN: [id number] date: 1995 Sex: F Assigned Patient Location: [facility] Current Patient Location: Accession/Order Number: [id number] Exam Date: 06/27/2024 09:02 Report Date: 06/28/2024 [...] Duarte M.D. Signed By:06/28/24808 DD/ 6 TD/TT: Microbiology Manager: us Deisy Howell DO [facility] Final Result documented in this encounter Visit Diagnoses Not on filedocumented in this encounter Care Teams Fiberglass Container Winding Operator Relationship Specialty Start Date End Date Shashi Hargrove MD [address] [place] [address] PCP - General Family Medicine 05/11/23 documented as of this encounter
--- OUTSIDE RECORDS SUMMARY | 2025-05-30 08:47 | XMS_ITS | Encounter Summary ---
Author Organization [facility] Address [address] [place] [facility] [place] [address] Care Team Providers Care Sap Functional Analyst Name Role Phone Shashi Hargrove MD Primary Care Provider [phone] Encounter Details Date Type Department Care Team ([facility] st Contact Info) Description 05/31/2024 Abstract [facility] OB [address] [place] [phone] Graham Howell DO [address] [facility] [address] [place] [place], [place] [phone] Social History Tobacco Use Types Packs/Day Years [...] on filedocumented in this encounter Care Teams Sap Functional Analyst Relationship Specialty Start Date End Date Shashi Hargrove MD [address] [facility] [place] [address] PCP - General Family Medicine 05/11/23 documented as of this encounter
--- OUTSIDE RECORDS SUMMARY | 2025-05-30 08:47 | XMS_ITS | Encounter Summary ---
Author Organization [facility] Address [address] [facility] [place] [address] Care Team Providers Care Lumber Press Operator Name Role Phone Shashi Hargrove MD Primary Care Provider [phone] Encounter Details Date Type Department Care Team ([facility] Contact Info) Description 05/17/2025 Bamboo flowsheet [facility] BCP OB [address] [place] [phone] Kelle Mosley PA [address] [place], [place] [phone] Social History Tobacco Use Types Packs/Day Years [...] on filedocumented in this encounter Care Teams Lumber Press Operator Relationship Specialty Start Date End Date Shashi Hargrove MD [address] [facility] [place] [address] PCP - General Family Medicine 05/11/23 documented as of this encounter
--- OUTSIDE RECORDS SUMMARY | 2025-05-30 08:47 | XMS_ITS ---
Author Organization [facility] Address [address] [place] [address] Care Team Providers Care Justice Professor Name Role Phone Shashi Hargrove MD Primary Care Provider [phone] [facility] ([facility]) Status:Enrolled (Active) Start date:05/02/2025 Enrollment date:05/05/2025 Enrollment reason:Identified by Health Plan Case Team Name Relationship Phone Kelle Craig LPN(Responsible Staff) Licensed [facility] Nurse [phone] Continued Care and Services Coordination
--- OUTSIDE RECORDS SUMMARY | 2025-05-30 08:47 | XMS_ITS | Encounter Summary ---
Author Organization [facility] Address [address] [place] [address] Care Team Providers Care Commissioner Of Officials Name Role Phone Shashi Hargrove MD Primary Care Provider [phone] Encounter Details Date Type Department Care Team (Late st Contact Info) Description 04/11/2015 [facility]phone [facility] General Surgery [address] [place], [place] [phone] Leila Wolff RN Social History Tobacco Use [...] filedocumented in this encounter Care Teams Commissioner Of Officials Relationship Specialty Start Date End Date Shashi Hargrove MD [address] [place] [address] PCP - General 04/05/15 documented as of this encounter
--- OUTSIDE RECORDS SUMMARY | 2025-05-30 08:47 | XMS_ITS | Encounter Summary ---
Author Organization [facility] Address [address] [facility] [place] [address] Care Team Providers Care Fibreglass Lay Up Worker Name Role Phone Shashi Hargrove MD Primary Care Provider [phone] Encounter Details Date Type Department Care Team ([facility] st Contact Info) Description 12/23/2024 Abstract [facility] OB [address] [facility] [place] [phone] Graham Howell DO [address] [facility] [place] [address] Social History Tobacco Use Types Packs/Day Years [...] on filedocumented in this encounter Care Teams Fibreglass Lay Up Worker Relationship Specialty Start Date End Date Shashi Hargrove MD [address] [facility] [place] [address] PCP - General Family Medicine 05/11/23 documented as of this encounter
--- OUTSIDE RECORDS SUMMARY | 2025-05-30 08:47 | XMS_ITS | Encounter Summary ---
Author Organization [facility] Address [address] [place] [address] Care Team Providers Care Fish Icer Name Role Phone Shashi Hargrove MD Primary Care Provider [phone] Encounter Details Date Type Department Care Team ([facility] Contact Info) Description 05/19/2025 Clinisync Result Encounter [facility] External Department Unsolicited Kelle Mosley PA [address] [place] [address] [place], [place] [phone] Social History Tobacco Use Types Packs/Day Years [...] Name Priority Date/Time Associated Diagnosis Comments [facility] TOTAL PROTEIN 24 HOUR URINE Routine 05/19/2025 6:30 AM EDT documented in this encounter Results * (ABNORMAL) [facility] TOTAL PROTEIN 24 HOUR URINE (05/19/2025 6:30 AM EDT) TOTAL PROTEIN URINE RANDOM 20.4(H) <=11.9 mg/dL [facility] TOTAL VOLUME 24 HOUR URINE 1,400 mL/24hr [facility] TOTAL PROTEIN 24 HOUR URINE 285.6(H) <=149.1 mg/24hr [facility] 05/19/2025 6:30 AM EDT 05/19/2025 6:58 AM EDT Narrative [facility] - 05/19/2025 8:19 AM EDT Kelle BAE [facility] Final [facility] documented in this encounter Visit Diagnoses Not on filedocumented in this encounter Care Teams Fish Icer Relationship Specialty Start Date End Date Shashi Hargrove MD [address] [place] [address] PCP - General Family Medicine 05/11/23 documented as of this encounter
--- OUTSIDE RECORDS SUMMARY | 2025-05-30 08:47 | XMS_ITS | Encounter Summary ---
Author Organization [facility] Address [address] [place] [address] Care Team Providers Care Highway Research Engineer Name Role Phone Shashi Hargrove MD Primary Care Provider [phone] Encounter Details Date Type Department Care Team ([facility] Contact Info) Description 05/05/2025 Abstract [facility] [address] [place] [address] Kelle Craig LPN [address] [place] [address] Social History Tobacco Use Types Packs/Day Years [...] on filedocumented in this encounter Care Teams Highway Research Engineer Relationship Specialty Start Date End Date Shashi Hargrove MD [address] [place] [address] PCP - General Family Medicine 05/11/23 documented as of this encounter
--- OUTSIDE RECORDS SUMMARY | 2025-05-30 08:47 | XMS_ITS | Clinical Summary ---
Author Organization [facility] Address [address] [place] [address] Care Team Providers Care Account Representative Name Role Phone Shashi Hargrove MD Primary Care Provider [phone] Allergies No known active allergies Medications sertraline [...] 5 season) 2024 04/15/2021, 03/18/2021 Flu vaccine (#1) 06/23/2025 10/28/2022, 03/21/2014 HIV screen Completed 02/21/2014 HPV vaccine [...] Comment SPECIMEN RECEIVED 12/21/2018 7:08 AM EST [facility] / Unknown 12/20/2018 6:10 PM EST 12/20/2018 6:10 PM EST Abdi Mcgill MD PATHOLOGY/CYTOLOGY ORDERABLES Final Result Performing Organization Address City/[facility]/ZIP Co de Phone Number [facility] [address] [place] [address], [facility] [phone] [address], [facility] [phone] * HIV Rapid 1&2 (02/21/2014 2:51 PM EDT) [facility] Rapid HIV 1&2 NONREACTIVE NR 02/22/2014 2:29 [...] characteristics of this test were determined by [facility]. It has not been cleared or approved by the U.S. Food and Drug Administration. The FDA has determined that such clearance is not necessary. Performed at [address] [place] [address] ([phone] 02/21/2014 2:51 PM EDT 02/21/2014 2:51 PM EDT Rachel Mejía LITHOGRAPH PRESS OPERATOR [employer] - CNM IMMUNOLOGY ORDERABLES Final Result Performing Organization Address City/[facility]/ZIP Co de Phone Number [facility] [address] [place] [address], [facility] [phone] [facility] from Last 3 Months or Most Recently Relevant to Health Maintenance Insurance [facility] PL[facility] Advance Directives * Full Code (Latest Code Status on File) Date Activated Date Inactivated Comments 04/10/2015 8:54 AM 04/10/2015 5:11 PM * Full Code Date Activated Date Inactivated Comments 09/06/2014 12:25 AM 09/07/2014 4:46 PM * Full Code Date Activated Date Inactivated Comments 09/04/2014 3:03 PM 09/06/2014 12:25 AM Care Teams Account Representative Relationship Specialty Start Date End Date Shashi Hargrove MD [address] [place] [address] PCP - General 04/05/15
--- OUTSIDE RECORDS SUMMARY | 2025-05-30 08:47 | XMS_ITS | Encounter Summary ---
Author Organization [facility] Address [address] [facility] [place] [address] Care Team Providers Care Nurse Monitoring Name Role Phone Shashi Hargrove MD Primary Care Provider [phone] Encounter Details Date Type Department Care Team ([facility] Contact Info) Description 05/11/2025 Abstract [facility] OB [address] [facility] [place] [phone] Graham Howell DO [address] [facility] [place] [address] Social History Tobacco Use Types Packs/Day Years [...] filedocumented in this encounter Care Teams Nurse Monitoring Relationship Specialty Start Date End Date Shashi Hargrove MD [address] [place] [address] PCP - General Family Medicine 05/11/23 documented as of this encounter
--- OUTSIDE RECORDS SUMMARY | 2025-05-30 08:47 | XMS_ITS | Encounter Summary ---
Author Organization [facility] Address [address] [facility] [place] [address] Care Team Providers Care Conveyor Attendant Name Role Phone Shashi Hargrove MD Primary Care Provider [phone] Encounter Details Date Type Department Care Team ([facility] st Contact Info) Description 05/31/2024 Abstract [facility] OB [address] [facility] [place] [phone] Graham Howell DO [address] [facility] [address] [place] [place], [place] [phone] Social History Tobacco Use Types Packs/Day Years [...] on filedocumented in this encounter Care Teams Conveyor Attendant Relationship Specialty Start Date End Date Shashi Hargrove MD [address] [facility] [place] [address] PCP - General Family Medicine 05/11/23 documented as of this encounter
--- OUTSIDE RECORDS SUMMARY | 2025-05-30 08:47 | XMS_ITS | Clinical Summary ---
Author Organization [facility] Address [address] [place] [address] Care Team Providers Care Event Staff Name Role Phone Shashi Hargrove MD Primary Care Provider [phone] Allergies Active Allergy Reactions Criticality Noted Date Comments Wound Dressings 12/25/2023 Other Reaction(s): hives Medications sertraline (Zoloft) 100 MG tablet Take 50 mg by mouth Daily Active magnesium oxide (Mag-Ox) 400 MG tabletIndicatio ns: headache in third trimester ([facility]) Take 1 tablet (400 mg) by mouth Daily 30 tablet 11 04/10/2025 Active cephalexin (Keflex) 500 MG capsuleIndicati ons:Third trimester ([facility]) Take 1 capsule (500 mg) by mouth in the morning and 1 capsule (500 mg) in the evening and 1 capsule (500 mg) before bedtime. Do all this for 7 days. 21 capsule 04/27/2025 05/04/20 25 Active Problems Problem Noted Date [...] cyst of left ovary 04/10/2015 Vaginal delivery ([facility]) 09/06/2014 Estimated Date of Delivery Comme nts Yes 06/05/2025 Based on last me nstrual period of 08/29/2024 Encounters Date Type Department Care Team Description 05/25/2025 Abstract [facility] [address] [place] [address] Deisy Howell, DO 05/24/2025 Patient Outreach [facility] [place] [address] Kelle Craig LPN 05/23/2025 Clinisync Result Encounter NOMS External Department Unsolicited Deisy Howell, DO 05/22/2025 Clinisync Result Encounter NOMS External Department Unsolicited Deisy Howell, DO 05/19/2025 Clinisync Result Encounter NOMS External Department Unsolicited Kelle Mosley PA 05/18/2025 Telephone [facility] [address] [place] [address] Maritza Rushing MA 05/17/2025 1:50 PM EDT Routine [facility] [address] [place] [address] Kelle Mosley PA Third trimester ([facility] 37 weeks gestation of ([facility]); Polyhydramnios affecting in third trimester ([facility]); H/O herpes zoster virus; induced hypertension, antepartum ([facility]); -induced hypertension in third trimester ([facility]) 05/17/2025 Clinisync Result Encounter NOMS External Department Unsolicited Deisy Howell, DO 05/17/2025 Clinisync Result Encounter NOMS External Department Unsolicited Kelle Mosley PA 05/17/2025 Bamboo flowsheet [facility] [address] [place] [address] Kelle Mosely PA 05/15/2025 Clinisync Result Encounter NOMS External Department Unsolicited Deisy Howell, DO 05/11/2025 Abstract [facility] [place] [address] [place] [address] Deisy Howell, 2025 2:30 PM EDT Routine [facility] OB [address] [place] [address] [place] [address] Deisy Howell, DO Third trimester ([facility]); 36 weeks gestation of ([facility]) 2025 Bamboo flowsheet [facility] OB [address] [place] [address] [place] [address] Deisy Howell, 05/08/2025 Clinisync Result Encounter NOMS External Department Unsolicited Deisy Howell, DO 05/05/2025 Abstract [facility] [address] [place] [address] Kelle Craig LPN 05/05/2025 Patient Outreach [facility] [address] [place] [address] Kelle Craig LPN 05/04/2025 Telephone [facility] [address] [place] [address] Katie Fitzgerald MA 04/27/2025 3:00 PM EDT Ancillary Procedure [facility] [address] [place] [address] size inconsistent with dates ([facility]) 04/27/2025 1:00 PM EDT Routine [facility] OB [address] [place] [address] [place] [address] Kelle Mosley PA Third trimester ([facility]); 34 weeks gestation of ([facility]) 04/27/2025 Bamboo flowsheet [facility] OB [address] [place] [address] [place] [address] Kelle Mosley PA 04/25/2025 Clinisync Result Encounter NOMS External Department Unsolicited Deisy Howell, DO 04/25/2025 Telephone [facility] [address] [place] [address] Deisy Howell DO 04/12/2025 2:30 PM EDT Routine [facility] OB [address] [place] [address] Deisy Howell, Third trimester ([facility]); 32 weeks gestation of ([facility]); size inconsistent with dates ([facility]) 04/12/2025 Bamboo flowsheet [facility] [address] [place] [address] Deisy Howell DO 04/10/2025 Refill [facility] OB [address] [place] [address] Aleida Colon LPN headache in third trimester ([facility]) 03/29/2025 3:10 PM EDT Routine [facility] OB [address] [place] [address] Kelle Mosley PA Herpes zoster with complication (Primary Dx); 30 weeks gestation of ([facility]); Third trimester ([facility]) 03/29/2025 Bamboo flowsheet [facility] [address] [place] [address] Kelle Mosley PA 03/15/2025 2:50 PM EDT Routine [facility] [address] [place] [address] Deisy Howell, Third trimester ([facility]); 28 weeks gestation of ([facility]); H/O herpes zoster virus 03/15/2025 Bamboo flowsheet [facility] [address] [place] [address] Deisy Howell DO 03/06/2025 Clinisync Result Encounter [...] 07/26/2024 8:36 AM EDT Plan of Treatment Health Maintenance Due Date Last Done Comments Influenza Vaccine (#1) 2025 10/28/2022, 2013 Pap Smear 12/27/2027 12/27/2024, 06/23, 01/02/2021, Additional history exists Cervical Cancer Screening 07/09/2028 HPV/Cotest 07/09/2028 07/09/2023 Procedures Procedure Name Priority Date/Time Associated Diagnosis Comments ALL CBC WITH AUTO DIFF Routine 6:08 AM EDT HMHP CBC WITH PLATELET NO DIFFERENTIAL Routine 05/22/2025 5:30 AM EDT TBH DRUG SCREEN RAPID (URINE) Routine 05/22/2025 5:22 AM EDT TBH TOTAL PROTEIN 24 HOUR URINE Routine 05/19/2025 6:30 AM EDT US OB BPP W NON-STRESS 05/17/2025 7:13 PM EDT CCF ALT Routine 05/17/2025 4:15 PM EDT ALL LDH Routine 05/17/2025 4:15 PM EDT CCF AST Routine 05/17/2025 4:15 PM EDT ALL URIC ACID Routine 05/17/2025 4:15 PM EDT TBH CREATININE Routine 05/17/2025 4:15 PM EDT ALL BUN Routine 05/17/2025 4:15 PM EDT CCF APTT Routine 05/17/2025 4:15 PM EDT SRMCOH PROTHROMBIN TIME INR W/O COUM Routine 05/17/2025 4:15 PM EDT ALL CBC WITH AUTO DIFF Routine 4:15 PM EDT US OB BPP W NON-STRESS 05/15/2025 6:40 PM EDT POCT URINALYSIS DIPSTICK Routine 2025 3:07 PM EDT Third trimester ([facility]) US OB BPP W NON-STRESS 05/08/2025 9:49 PM EDT US OB FOLLOW UP TRANSABDOMINAL APPROACH Routine 04/27/2025 2:58 PM EDT size inconsistent with dates ([facility]) POCT URINALYSIS DIPSTICK Routine 04/27/2025 1:20 PM EDT Third trimester ([facility]) TBH URINE MICROSCOPIC ONLY Routine 04/25/2025 4:15 PM EDT AMNISURE Routine 04/25/2025 4:15 PM EDT TBH UA (CLEAN/CATCH) GENERATOR OPERATOR STRAIGHT BEVEL GEAR/MICRO IF IND. Routine 04/25/2025 4:15 PM EDT POCT URINALYSIS DIPSTICK Routine 04/12/2025 3:28 PM EDT Third trimester ([facility]) POCT URINALYSIS DIPSTICK Routine 03/29/2025 3:51 PM EDT 30 weeks gestation of ([facility]) POCT URINALYSIS DIPSTICK Routine 03/15/2025 3:29 PM EDT Third trimester ([facility]) GLUCOSE 1 HOUR Routine 03/06/2025 9:29 AM EDT ALL CBC WITH AUTO DIFF Routine 9:29 AM EDT PAP SMEAR Routine 12/27/2024 12:00 AM EST THINPREP PAP AND HPV MRNA E6/E7 W/RFL HPV 16,18/45 Routine 07/09/2023 3:38 PM EDT Well woman exam with routine gynecological exam from Last 3 Months or Most Recently Relevant to Health Maintenance Results * (ABNORMAL) ALL CBC WITH AUTO DIFF (05/23/2025 6:08 AM EDT) Only the most recent of3 resultswithin the time period is included. TBH WBC 17.0(H) 4.0 - 11.0 10 3/uL [...] CLINISYNC - 05/23/2025 6:35 AM EDT us Deisy Dante DO [facility]IS[facility] Final [facility] * (ABNORMAL) [facility] CBC WITH PLATELET NO DIFFERENTIAL (05/22/2025 5:30 AM EDT) TBH WBC 11.0 4.0 - 11.0 10 3/uL TBH TBH RBC 4.05(L) 4.20 - 5.40 10 6/uL TBH TBH HGB 12.0 12.0 - 16.0 g/dL TBH TBH HCT 35.2(L) 36.0 - 48.0 % TBH TBH MCV 86.9 81.0 - 99.0 fL TBH TBH MCH 29.6 26.7 - 34.0 pg TBH TB MCHC 34.1 29.9 - 35.2 g/dL TB TB RDW 12.8 11.0 - 15.0 % TB TBH PLT 251 150 - 450 10 3/uL TB TB MPV 9.7 9.5 - 13.5 fL TB 05/22/2025 5:30 AM EDT 05/22/2025 5:36 AM EDT Narrative CLINISYNC - 05/22/2025 5:40 AM EDT us Deisy Dante DO CLINISYNC Final Result [facility] * [facility] DRUG SCREEN RAPID (URINE) (05/22/2025 5:22 AM [...] CLINISYNC - 05/22/2025 5:52 AM EDT us Deisy Dante DO CLINISYNC Final Result CL[facility]ISYAK TB * (ABNORMAL) TBH TOTAL PROTEIN 24 HOUR URINE (05/19/2025 6:30 AM EDT) TOTAL PROTEIN URINE RANDOM 20.4(H) <=11.9 mg/dL TBH TOTAL VOLUME 24 HOUR URINE 1,400 mL/24hr TBH TBH TOTAL PROTEIN 24 HOUR URINE 285.6(H) <=149.1 mg/24hr TBH 05/19/2025 6:30 AM EDT 05/19/2025 6:58 AM EDT Narrative CLINISYNC - 05/19/2025 8:19 AM EDT Kelle BAE CLINISYNC Final Result Performing Organization Address City/[facility] Co de Phone Number [facility] * US OB BPP W NON-STRESS (05/17/2025 7:13 PM EDT) Only the most recent of3 resultswithin the time period is included. Anatomical Region Laterality Modality Other 05/17/2025 7:13 PM EDT Narrative 05/17/2025 7:15 [place] [address] Ultrasound Report Signed Patient: JOCELYN FREEMAN V MR#: [id number] : 1995 Acct:[id number] Age/Sex: 30 / F ADM Date: Loc: [facility] 250- Attending Dr: Deisy Howell D.O. Ordering Physician: Deisy Howell D.O. Date of Service: 05/17/25 Procedure(s): US OB BPP w non-stress Accession Number(s): [id number] cc: Deisy Howell D.O.; Shashi Hargrove M.D. The [address] [address] Patient Name: JOCELYN FREEMAN MRN: [id number] date: 1995 Sex: F Assigned Patient Location: [facility] Current Patient Location: [facility] Accession/Order Number: [id number] Exam Date: 05/17/2025 19:09 Report Date: 05/17/2025 19:13 At the request of: DEISY HOWELL DO Procedure: US OB BPP w non-stress Ultrasound biophysical profile INDICATION: GB COMPARISON: None FINDINGS/IMPRESSION: Single live intrauterine gestation with heart 132 bpm. BRISEYDA 23.28 cm Score / Impression dictated by: Weston Gonzalez M.D. 05/17/2025 7:13 PM Dictation Location: [place] [address] Electronically authenticated by: [id number] Y Date: 05/17/2025 19:13 Dictated By: Weston Gonzalez M.D. Signed By: 05/17/251914 DD/ 12 TD/TT: Underwater Hunter: Procedure Note Radiology, Radiologist, MD - 05/17/2025 [place] [address] Ultrasound Report Signed Patient: JOCELYN FREEMAN VMR#: [id number] : 1995Acct:[id number] Age/Sex: 30 / FADM Date: Loc: [facility] 250-[address]: Deisy Howell D.O. Ordering Physician: Deisy Howell D.O. Date of Service: 05/17/25 Procedure(s): US OB BPP w non-stress Accession Number(s): [id number] cc: Deisy Howell D.O.; Shashi Hargrove M.D. The [address] [id number] Patient Name: JOCELYN FREEMAN MRN: [id number] date: 1995 Sex: F Assigned Patient Location: [facility] Current Patient Location: [facility] Accession/Order Number: [id number] Exam Date: 05/17/2025 19:09 Report Date: 05/17/2025 19:13 At the request of: DEISY HOWELL DO Procedure: US OB BPP w non-stress Ultrasound biophysical profile INDICATION: GB COMPARISON: None FINDINGS/IMPRESSION: Single live intrauterine gestation with [id number] bpm. BRISEYDA 23.28 cm Score 8/8 Impression dictated by: Weston Gonzalez M.D. 05/17/2025 7:13 PM Dictation Location: [place] [address] Electronically authenticated by: [id number] Y Date: 9:13 Dictated By: Weston Gonzalez M.D. Signed By:05/17/251914 DD/ 12 TD/TT: Underwater Hunter: Deisy Dante DO CLINISYNC IMAGING Final Result * (ABNORMAL) TBH CREATININE (05/17/2025 4:15 PM EDT) CREATININE 0.48(L) 0.55 - 1.02 mg/dL TBH TBH EGFR-AF NOR[place]GIAN >60 >=60 mL/min/1.7 3m 2 TBH TBH EGFR-NON AF [place]GIAN >60 >=60 mL/min/1.7 3m 2 TBH 05/17/2025 4:15 PM EDT 05/17/2025 4:16 PM EDT Narrative CLINISYNC - 05/17/2025 5:10 PM EDT Kelle BAE CLINISYNC Final Result [facility] * [facility] PROTHROMBIN TIME INR W/O COUM (05/17/2025 4:15 PM EDT) PROTHROMBIN TIME 9.8 9.0 - 11.6 sec TBH TBH INR <0.93 TBH Comment: DESIRED INR: 2.0-3.0 CONDITIONS NOT LISTED BELOW 2.5-3.5 FOR PROSTHETIC HEART VALVE REPLACEMENT 2.5-3.5 RECURRENT THROMBOSIS 05/17/2025 4:15 PM EDT 05/17/2025 4:16 PM EDT Narrative CLINISYNC - 05/17/2025 5:10 PM EDT us Kelle Enriquezraul BAE CLINISYNC Final Result CLINISYNC TBH * (ABNORMAL) CCF AST (05/17/2025 4:15 PM EDT) ASPARTATE AMINO TRANSFERASE 12(L) 15 - 37 U/L TBH 05/17/2025 4:15 PM EDT 05/17/2025 4:16 PM EDT Narrative CLINISYNC - 05/17/2025 5:10 PM EDT us Kelle Enriquezraul BAE CLINISYNC Final Result Performing Organization Address [facility] Co de Phone Number CLINISYNC TBH * CCF APTT (05/17/2025 4:15 PM EDT) PARTIAL THROMBOPLASTIN TIME 25.1 22.3 - 36.2 sec TBH 05/17/2025 4:15 PM EDT 05/17/2025 4:16 PM EDT Narrative CLINISYNC - 05/17/2025 5:10 PM EDT us Kelle [place] PA CLINISYNC Final Result Performing Organization Address [facility] Co de Phone Number CLINISYNC TBH * CCF ALT (05/17/2025 4:15 PM EDT) ALANINE AMINOTRANSFERASE 15 14 - 59 U/L TBH 05/17/2025 4:15 PM EDT 05/17/2025 6:17 PM EDT Narrative CLINISYNC - 05/17/2025 6:26 PM EDT us Deisy Hernandezo DO CLINISYNC Final Result Performing Organization Address City/[facility] Co de Phone Number CLINISYNC TBH * ALL URIC ACID (05/17/2025 4:15 PM EDT) URIC ACID 3.7 2.6 - 6.0 mg/dL TBH 05/17/2025 4:15 PM EDT 05/17/2025 4:16 PM EDT Narrative CLINISYNC - 05/17/2025 5:10 PM EDT Kelle Enriquezraul BAE CLINISYNC Final Result Performing Organization Address [facility]/ZIP Co de Phone Number CLINISYNC TBH * (ABNORMAL) ALL LDH (05/17/2025 4:15 PM EDT) LACTATE DEHYDROGENASE 74(L) 81 - 234 U/L TB 05/17/2025 4:15 PM EDT 05/17/2025 4:16 PM EDT Narrative CLINISYNC - 05/17/2025 5:10 PM EDT us Kelle BAE CLINISYNC Final Result Performing Organization Address [facility] Phone Number CLINISYNC TBH * (ABNORMAL) ALL BUN (05/17/2025 4:15 PM EDT) BLOOD UREA NITROGEN 6.0(L) 7.0 - 18.0 mg/dL TB 05/17/2025 4:15 PM EDT 05/17/2025 4:16 PM EDT Narrative CLINISYNC - 05/17/2025 5:10 PM EDT Kelle BAE CHENCHOISYNC Final Result Performing Organization Address [facility] de Phone Number CLINISYNC TB * (ABNORMAL) POCT urinalysis dipstick manually resulted [...] Positive Urine 2025 3:07 PM EDT us Deisy Dante DO POINT OF CARE TEST ENTER/EDIT [...] AM [facility] Procedure Note Tato Amaya MD - [...] signed by TATO AMAYA II, MD, PHD [id number] 08:26:54 AM [facility] us Deisy Dante DO IMG OB US PROCEDURES Final Resul t * AMNISURE (04/25/2025 4:15 PM EDT) TB AMNISURE NEGATIVE NEGATIVE TBH 04/25/2025 4:15 PM EDT 04/25/2025 4:20 PM EDT Narrative CLINISYNC - 04/25/2025 4:33 PM EDT us Deisy Dante DO LAB BLOOD ORDERABLES Final Resul t CLINISYAK TB * (ABNORMAL) TBH URINE MICROSCOPIC ONLY (04/25/2025 4:15 PM EDT) TB WBC 10-20(A) NONE SEEN #/HPF TBH [...] DO CLINISYNC Final Result Performing Organization Address [facility]/ZIP Co de Phone Number CLINISYNC TBH * (ABNORMAL) TBH UA (CLEAN/CATCH) GENERATOR OPERATOR STRAIGHT BEVEL GEAR/MICRO IF IND. (04/25/2025 4:15 PM EDT) COLOR [...] Address City/[facility]/ZIP Co de Phone Number CLINISYNC TBH * GLUCOSE 1 HOUR (03/06/2025 9:29 AM EDT) GLUCOSE 1 HOUR 116 <130 mg/dL TB 03/06/2025 9:29 AM EDT 03/06/2025 9:32 AM EDT Narrative CLINISYNC - 03/06/2025 10:05 AM EDT us Deisy Howell DO LAB BLOOD ORDERABLES Final Resul t Performing Organization Address City/[facility]/ZIP Co de Phone Number CLINISYNC TB * Pap Smear (12/27/2024 12:00 AM EST) Swab Cervical swab / Unknown us Kelle BAE LAB CYTOLOGY ORDERABLES Final Re sult Performing Organization Address [facility] Co de Phone Number EXTERNAL LAB * THINPREP PAP AND HPV MRNA E6/E7 W/RFL HPV 16,18/45 (07/09/2023 3:38 PM EDT) Kelle BAE LAB BLOOD ORDERABLES Final Resul t Performing Organization Address [facility] Co de Phone Number EXTERNAL LAB from Last 3 Months or Most Recently Relevant to Health Maintenance Insurance [employer] Care Teams Event Staff Relationship Specialty Start Date End Date Shashi Hargrove MD [address] [place] [address] PCP - General Family Medicine 05/11/23
--- OUTSIDE RECORDS SUMMARY | 2025-05-30 08:47 | XMS_ITS ---
Author Organization [facility] Address [address] [place] [address] Care Team Providers Care Shelf Drier Operator Name Role Phone Shashi Hargrove MD Primary Care Provider [phone] Inpatient Discharge Transitional Care Management (TCM) Status:Closed (Closed) Start date:05/23/2025 Enrollment date:05/24/2025 Enrollment reason:Identified using hospital discharge data End date:05/24/2025 Close reason:Not eligible Overview Patient discharged from [facility] on 05/23. Please contact for hospital ADRIANA and schedule follow-up appointment within 7-14 days. Continued Care and Services Coordination
--- OUTSIDE RECORDS SUMMARY | 2025-05-30 08:47 | XMS_ITS | Encounter Summary ---
Author Organization [facility] Address [address] [facility] [place] [address] Care Team Providers Care Safety Technician Name Role Phone Shashi Hargrove MD Primary Care Provider [phone] Encounter Details Date Type Department Care Team ([facility] Contact Info) Description 11/03/2024 Abstract [facility] OB [address] [place] [phone] Graham Howell DO [address] [facility] [place] [address] Social History Tobacco Use Types Packs/Day Years [...] on filedocumented in this encounter Care Teams Safety Technician Relationship Specialty Start Date End Date Shashi Hargrove MD [address] [facility] [place] [address] PCP - General Family Medicine 05/11/23 documented as of this encounter
--- OUTSIDE RECORDS SUMMARY | 2025-05-30 08:47 | XMS_ITS | Encounter Summary ---
Author Organization [facility] Address [address] [facility] [place] [address] Care Team Providers Care Operations Officer Trust Department Name Role Phone Shashi Hargrove MD Primary Care Provider [phone] Encounter Details Date Type Department Care Team ([facility] st Contact Info) Description 10/14/2024 Abstract [facility] OB [address] [facility] [place] [address] Graham Howell DO [address] [facility] [address] [place], [place] [id number] Social History Tobacco Use Types Packs/Day Years [...] on filedocumented in this encounter Care Teams Operations Officer Trust Department Relationship Specialty Start Date End Date Shashi Hargrove MD [address] [facility] [place] [address] PCP - General Family Medicine 05/11/23 documented as of this encounter
--- OUTSIDE RECORDS SUMMARY | 2025-05-30 08:47 | XMS_ITS | Encounter Summary ---
Author Organization [facility] Address [address] [place] [address] Care Team Providers Care Cloud Systems Administrator Name Role Phone Shashi Hargrove MD Primary Care Provider [phone] Encounter Details Date Type Department Care Team ([facility] st Contact Info) Description 06/29/2024 Abstract [facility] OB [address] [place] [phone] Graham Howell DO [address] [facility] [address] [place], [place] [id number] Social History Tobacco Use Types Packs/Day Years [...] on filedocumented in this encounter Care Teams Cloud Systems Administrator Relationship Specialty Start Date End Date Shashi Hargrove MD [address] [facility] [place] [address] PCP - General Family Medicine 05/11/23 documented as of this encounter
--- OUTSIDE RECORDS SUMMARY | 2025-05-30 08:47 | XMS_ITS | Encounter Summary ---
Author Organization [facility] Address [address] [place] [address] Care Team Providers Care Cake Washer Name Role Phone Shashi Hargrove MD Primary Care Provider [phone] Encounter Details Date Type Department Care Team ([facility] Contact Info) Description 05/18/2025 Telephone [facility] OB [address] [facility] [place] [address] Maritza Rushing MA [address] [facility] [place] [address] Social History Tobacco Use Types Packs/Day Years [...] encounter Miscellaneous Notes * Telephone Encounter - Maritza Rushing MA - 05/18/2025 11:18 AM EDT Patient called stating at the NST/BPP visit at [facility] a nurse there advised patient that she is probably being induced on Thursday. Pt was unaware that this was going to happen. Pt stated it was not discussed w/her at the OB visit yesterday. Pt wanted answers if she is supposed to be induced on Thursday? I spoke w/Kelle Mosley and she called [facility] and spoke w/Tara and the nurse Tara did confirm patient is to be at the hospital on Thursday for induction and to report to the hospital at 5 am. Pt is to not miss her NST/BPP on Thursday. I called pt back to advise her that she is going to be induced on Thursdayat 5 am. And patient stated the hospital lead nurse just confirmed all this information w/her a fewminutes before me calling her back. I did reiterate to not miss her NST/BPP appt on Thursday and to make sure she goes in the ER entrance since the front doors of the hospital will be locked at 5 a.m. PVU. documented in this encounter Plan of Treatment Not on file documented as of this encounter Visit Diagnoses Not on filedocumented in this encounter Care Teams Cake Washer Relationship Specialty Start Date End Date Shashi Hargrove MD [address] [place] [address] PCP - General Family Medicine 05/11/23 documented as of this encounter
--- OUTSIDE RECORDS SUMMARY | 2025-05-30 08:47 | XMS_ITS | Encounter Summary ---
Author Organization [facility] Address [address] [facility] [place] [address] Care Team Providers Care Med Surg Rn Name Role Phone Shashi Hargrove MD Primary Care Provider [phone] Encounter Details Date Type Department Care Team ([facility] st Contact Info) Description 12/23/2024 Abstract [facility] [address] [place] [id number] Graham Howell DO [address] [place] [address] Social History Tobacco Use Types Packs/Day Years [...] on filedocumented in this encounter Care Teams Med Surg Rn Relationship Specialty Start Date End Date Shashi Hargrove MD [address] [facility] [place] [address] PCP - General Family Medicine 05/11/23 documented as of this encounter
--- OUTSIDE RECORDS SUMMARY | 2025-05-30 08:47 | XMS_ITS | Encounter Summary ---
Author Organization [facility] Address [address] [place] [address] Care Team Providers Care Cancer Program Coordinator Name Role Phone Shashi Hargrove MD Primary Care Provider [phone] Encounter Details Date Type Department Care Team (Late st Contact Info) Description 09/09/2014 FollowUp Telephone Encounter [facility] [address] [place], [place] [id number] Delaney Mccray RN Social History Tobacco Use [...] y.o. Call made 09/09/2014 11:59 AM To [phone] (home) [x] No answer; unable to leave [...] on filedocumented in this encounter Care Teams Cancer Program Coordinator Relationship Specialty Start Date End Date Shashi Hargrove MD [address] [place] [address] PCP - General 04/05/15 documented as of this encounter
== END 2025-05-30 15:29 | disposition home or self-care (01) ==
PROVIDERS: PCP Family Medicine; Visit Provider Obstetrics & Gynecology
DX: Z39.1 Encounter for care and examination of lactating mother (principal)
CPT/HCPCS: G0463